=== PATIENT | female | born 1970 | race Caucasian/White ===

== ENCOUNTER 2018-11-20 14:41 | Emergency (ER) | payer BC, OTHER ==
--- OUTSIDE RECORDS SUMMARY | 2018-11-20 14:46 | XMS REPORT ---
:1970 [facility] Address [address] [place] [address] [address]. Holman [address] [place] [address] Care Team Providers Name Role Phone DR LESTER LANCASTER Unavailable Unavailable ELEANOR, DR OSBORNE Unavailable Unavailable WILLIAM, DR KRUEGER Unavailable Unavailable CHRIS, MS ANDREW Payne Unavailable Unavailable Problems This patient has no known problems. Allergies, Adverse Reactions, Alerts This patient has no known allergies or adverse reactions. Medications This patient has no known medications. Encounters Start End Encounter Admission Attending Care Care Encounter Date/Time Date/Time Type Type Clinicians Facility Department ID 2018-07-16 2018-07-19 Outpatient E TONNY, [facility] [id number] 15:24:00 14:47:00 LESTER 2018-06-30 2018-07-01 Outpatient E ELEANOR, [facility] [id number] 16:03:00 17:15:00 DYLON 2018-05-17 2018-05-17 Emergency E WILLIAM [facility] [id number] 13:38:00 15:27:00 PATI 2018-03-09 2018-03-09 [facility] [id number] 10:29:00 14:00:00 ANDREW Results Test Description Test Time Test Comments Text Results Atomic Results Result Comments COMPREHENSIVE METABOLIC ESPINOSA 2018-07-18 04:10:00 Test Item Value Reference Range Comments GLUCOSE (test code=06D) 92 mg/dL 75-100 SODIUM (test code=01A) 141 mmol/L 136-145 POTASSIUM (test code=01B) 3.6 mmol/L 3.6-5.1 CHLORIDE (test code=04A) 107 mmol/L 98-107 CO2 (test code=02A) 22 mmol/L 22-32 ANION GAP (test code=ANG) 15.6 mmol/L BUN (test code=05D) 19 mg/dL 7-18 CREATININE (test code=03E) 0.7 mg/dL 0.4-1.1 BUN/CREA (test code=BCR) 27 12-20 CALCIUM (test code=09D) 8.9 mg/dL 8.3-9.5 BILI TOTAL (test code=11A) 0.4 mg/dL 0.2-1.0 PROTEIN (test code=07D) 6.9 g/dL 6.4-8.2 ALBUMIN (test code=08D) 3.3 g/dL 3.5-4.8 GLOBULIN (test code=GLB) 3.6 g/dL 1.5-3.8 ALB/GLOB (test code=AGRR) 0.9 1.0-2.6 ALK PHOS (test code=35A) 68 IU/L 42-121 AST (test code=30A) 12 IU/L <=42 ALT (test code=31A) 15 IU/L <=78 CBC (INCLUDES AUTOMATED DIFFERENTIAL)2018-07-17 05:48:00 Test Item Value Reference Range Comments WBC (test code=WBC) 11.9 10\S\3/uL 4.5-11.0 RBC (test code=RBC) 3.95 10\S\6/uL 4.20-5.60 HGB (test code=HBG) 11.9 g/dL 12.0-15.5 HCT (test code=HCT) 37.2 % 35.0-44.0 MCV (test code=MCV) 94.2 fL 81.0-99.0 MCH (test code=MCH) 30.1 pg 27.0-31.0 MCHC (test code=MCHC) 32.0 g/dL 32.0-36.0 RDW (test code=RDW) 13.8 % 11.5-14.5 PLT (test code=PLT) 352 10\S\3/uL 130-400 MPV (test code=MPV) 9.7 fL 9.4-12.4 NEUTROP # (test code=NE#) 9.0 10\S\3/uL 1.6-8.0 LYMPH # (test code=LY#) 1.8 10\S\3/uL 1.1-3.5 MONOCYTE # (test code=MO#) 1.0 10\S\3/uL 0.0-1.1 EOSINOPH # (test code=EO#) 0.0 10\S\3/uL 0.0-0.7 BASOPHIL # (test code=BA#) 0.1 10\S\3/uL 0.0-0.3 IG # (test code=IG#) 0.07 10\S\3/uL 0.00-0.06 NRBC # (test code=NRBC#) 0.00 10\S\3/uL 0.00-0.01 NEUTROPH % (test code=NE%) 75.2 % 35.0-73.0 LYMPH % (test code=LY%) 14.9 % 20.0-55.0 MONO % (test code=MO%) 8.6 % 2.5-10.0 EOSINOPH % (test code=EO%) 0.3 % 0.0-5.0 BASOPHIL % (test code=BA%) 0.4 % 0.0-2.0 IG % (test code=IG%) 0.6 % 0.0-0.8 NRBC% (test code=NRBC%) 0.0 % 0.0-0.2 MANDIFF (test code=MDIFF) NO NO RBC MORPH (test code=RBCMOR) NORMAL BASIC METABOLIC [id number] 05:47:00 Test Item Value Reference Range Comments GLUCOSE (test code=06D) 97 mg/dL 75-100 SODIUM (test code=01A) 143 mmol/L 136-145 POTASSIUM (test code=01B) 3.5 mmol/L 3.6-5.1 CHLORIDE (test code=04A) 108 mmol/L 98-107 CO2 (test code=02A) 26 mmol/L 22-32 ANION GAP (test code=ANG) 12.5 mmol/L BUN (test code=05D) 16 mg/dL 7-18 CREATININE (test code=03E) 0.6 mg/dL 0.4-1.1 BUN/CREA (test code=BCR) 25 12-20 CALCIUM (test code=09D) 8.3 mg/dL 8.3-9.5 CARDIAC [id number] 02:45:00 Test Item Value Reference Range Comments TROPONIN I (test code=A84) 0.059 ng/mL 0.000-0.045 CARDIAC [id number] 18:36:00 Test Item Value Reference Range Comments TROPONIN I (test code=A84) 0.059 ng/mL 0.000-0.045 CT ABDOMEN AND PELVIS WITH [id number] 15:14:52EXAM: CT abdomen and pelvis with contrastLocation: R16 INDICATION: Diffuse painCOMPARISON: CT abdomen and pelvis on 06/30/18 and 02/10/18TECHNIQUE: Axial images of the abdomen and pelvis were obtained with 96 ccOmnipaque 300 IV contrast. Coronal and sagittal reformatted images wereperformed. Creatinine is 0.8.DISCUSSION: Lower thorax: Unremarkable.Hepatobiliary: 1 cm simple left hepatic dome cyst is noted. The liver isotherwise unremarkable. No biliary ductal dilatation.Gallbladder: Unremarkable.Spleen: Unremarkable.Pancreas: Unremarkable.Kidneys: 3 right-sided and 2 left-sided punctate bilateral renal calculi areidentified. No ureteral calculi, hydronephrosis, or solid renal mass is seen.Adrenals: Unremarkable.Lymph nodes: No lymphadenopathy.Peritoneum/ retroperitoneum: No intraabdominal freeair or free fluid.Vessels: Mild atherosclerosis, without abdominal aortic aneurysm.Pelvic organs/bladder: The uterus, adnexa, bladder are unremarkable.Bowel: The appendix is normal. Fluid is seen within several nondilated smallbowel loops. No bowel obstruction or abnormal bowel wall thickening is seen.Bones/soft tissues: No fracture or evidence of bony neoplastic process. Thereis a bone island at the anterior inferior iliac spine, unchanged from January2018.IMPRESSION:1. Findings suggest enteritis. No bowel obstruction or intra-abdominal freeair. The appendix is normal.2. Punctate bilateral nephrolithiasis, without hydronephrosis.One or more of the following dose reduction techniques were used: Automatedexposure control, adjustment of the mA and/or kV according to patient size,and/or utilization of iterative reconstruction technique.DLP: 1534 mGy-cm CTDI 28 [id number] 13:05:00 Test Item Value Reference Range Comments MAGNESIUM (test code=48A) 1.9 mg/dL 1.8-2.4 CT HEAD W/O [id number] 12:54:16EXAM: CT head without contrastLocation: [id number]: NoneINDICATION: HeadacheTECHNIQUE: Axial images of the brain were performed with 5 mm slices. Imageswere reviewed in brain and bone windows. Coronal and sagittal reformattedimages were performed.DISCUSSION:No intracranial mass, hemorrhage, hydrocephalus, midline shift, or herniationis seen. No abnormal attenuation is seen. No calvarial fracture or scalpcontusion is identified. Included portions of the orbits are unremarkable. The visualized paranasal sinuses are unremarkable.IMPRESSION:No acute intracranial abnormalities.One or more of the following dose reduction techniques were used: Automatedexposure control, adjustment of the mA and/or kV according to patient size,and/or utilization of iterative reconstruction technique.DLP: 854 mGy- cmCTDI 45 mGyDRUGS OF [id number] 12:54:00 Test Item Value Reference Range Comments DRUG SCRN (test code=HDOA) URINE DRUG SCREEN This is an unconfirmed screening result and should not be used for non-medical purposes CANNABINOD (test code=88C) POSITIVE NEGATIVE AMPHETAMINE (test code=84A) Negative NEGATIVE BENZODIAZP (test code=86A) POSITIVE NEGATIVE BARBITURAT (test code=85A) Negative NEGATIVE OPIATES (test code=92B) Negative NEGATIVE COCAINE (test code=87A) Negative NEGATIVE PHENCYCLID (test code=66A) Negative NEGATIVE METHADONE (test code=64A) Negative NEGATIVE DOAH (test code=DOAH.) URINE DRUG SCREEN Cut-off values are as follows: Cannabinoids 50 ng/mL Cocaine 300 ng/mL Amphetamines 1000 ng/mL Phencyclidine 25 ng/mL Benzodiazepines 200 ng.mL Methadone 300 ng/mL Barbiturates 200 ng/mL Opiates 2000 ng/mL URINALYSIS WITH [id number] 12:46:00 Test Item Value Reference Range Comments COLOR (test code=COLU) DK YELLOW YELLOW CLARITY (test code=CLA) CLOUDY CLEAR GLUCOSE UR (test code=UA GLUCOSE) NEGATIVE NEGATIVE BILI UR (test code=BILE) 1+ NEGATIVE KETONES UR (test code=AUGUSTINE) 1+ NEGATIVE SP GRAVITY (test code=SPGR) 1.027 1.005-1.030 PH UR (test code=PH) 6.0 4.5-8.0 PROTEIN UR (test code=PU) 2+ NEGATIVE UROBIL UR (test code=UROQ) 1.0 EU/dL 0.2-1.0 NITRITE UR (test code=NITRITE) NEGATIVE NEGATIVE BLOOD UR (test code=UA BLOOD) NEGATIVE NEGATIVE LEUK ES UR (test code=LEUK) 1+ NEGATIVE WBC UR (test code=UWBC) 3 /HPF 0-5 RBC UR (test code=URBC) 0 /HPF 0-2 EPITH UR (test code=UEPC) FEW /LPF FEW BACTERIA UR (test code=UBACT) FEW /HPF NONE CAST UR (test code=CAST) /LPF NONE CRYSTAL UR (test code=CRYU) / LPF NONE MUCUS UR (test code=MUC) MANY / HPF NONE AMORPH UR (test code=SHAHEEN) / HPF NONE TRICH UR (test code=UTRICH) /HPF NONE YEAST UR (test code=UY) /HPF NONE SPERM UR (test code=USPERM) /HPF NONE URINE [id number] 12:39:00 Test Item Value Reference Range Comments PREG UR (test code=PGU) NEGATIVE NEGATIVE COMPREHENSIVE METABOLIC [id number] 12:37:00 Test Item Value Reference Range Comments GLUCOSE (test code=06D) 107 mg/dL 75-100 SODIUM (test code=01A) 140 mmol/L 136-145 POTASSIUM (test code=01B) 2.8 mmol/L 3.6-5.1 CHLORIDE (test code=04A) 98 mmol/L 98-107 CO2 (test code=02A) 28 mmol/L 22-32 ANION GAP (test code=ANG) 16.8 mmol/L BUN (test code=05D) 19 mg/dL 7-18 CREATININE (test code=03E) 0.8 mg/dL 0.4-1.1 BUN/CREA (test code=BCR) 23 12-20 CALCIUM (test code=09D) 9.6 mg/dL 8.3-9.5 BILI TOTAL (test code=11A) 0.7 mg/dL 0.2-1.0 PROTEIN (test code=07D) 8.0 g/dL 6.4-8.2 ALBUMIN (test code=08D) 4.0 g/dL 3.5-4.8 GLOBULIN (test code=GLB) 4.0 g/dL 1.5-3.8 ALB/GLOB (test code=AGRR) 1.0 1.0-2.6 ALK PHOS (test code=35A) 91 IU/L 42-121 AST (test code=30A) 18 IU/L <=42 ALT (test code=31A) 17 IU/L <=78 AMYLASE AND [id number] 12:34:00 Test Item Value Reference Range Comments AMYLASE (test code=10A) 53 U/L 28-100 LIPASE (test code=60A) 45 IU/L 73-393 TROPONIN [id number] 12:33:00 Test Item Value Reference Range Comments TROPONIN I (test code=A84) 0.087 ng/mL 0.000-0.045 [id number] 12:26:00 Test Item Value Reference Range Comments D-DIMER (test code=DDI) <200 ng/mL D-DU 0-234 D-DIMER COMMENT (test *Level to rule out DVT or PE: code=DDCOM) <235 ng/mL D-DU* CBC (INCLUDES AUTOMATED DIFFERENTIAL)2018-07-16 12:17:00 Test Item Value Reference Range Comments WBC (test code=WBC) 13.8 10\S\3/uL 4.5-11.0 RBC (test code=RBC) 4.37 10\S\6/uL 4.20-5.60 HGB (test code=HBG) 13.4 g/dL 12.0-15.5 HCT (test code=HCT) 39.4 % 35.0-44.0 MCV (test code=MCV) 90.2 fL 81.0-99.0 MCH (test code=MCH) 30.7 pg 27.0-31.0 MCHC (test code=MCHC) 34.0 g/dL 32.0-36.0 RDW (test code=RDW) 13.3 % 11.5-14.5 PLT (test code=PLT) 421 10\S\3/uL 130-400 MPV (test code=MPV) 9.6 fL 9.4-12.4 NEUTROP # (test code=NE#) 11.5 10\S\3/uL 1.6-8.0 LYMPH # (test code=LY#) 1.4 10\S\3/uL 1.1-3.5 MONOCYTE # (test code=MO#) 0.8 10\S\3/uL 0.0-1.1 EOSINOPH # (test code=EO#) 0.1 10\S\3/uL 0.0-0.7 BASOPHIL # (test code=BA#) 0.0 10\S\3/uL 0.0-0.3 IG # (test code=IG#) 0.06 10\S\3/uL 0.00-0.06 NRBC # (test code=NRBC#) 0.00 10\S\3/uL 0.00-0.01 NEUTROPH % (test code=NE%) 83.4 % 35.0-73.0 LYMPH % (test code=LY%) 10.0 % 20.0-55.0 MONO % (test code=MO%) 5.5 % 2.5-10.0 EOSINOPH % (test code=EO%) 0.6 % 0.0-5.0 BASOPHIL % (test code=BA%) 0.1 % 0.0-2.0 IG % (test code=IG%) 0.4 % 0.0-0.8 NRBC% (test code=NRBC%) 0.0 % 0.0-0.2 MANDIFF (test code=MDIFF) NO NO RBC MORPH (test code=RBCMOR) NORMAL DIRECT STREP GROUP [id number] 07:45:00 Test Item Value Reference Range Comments Culture Observations (test NO BETA HEMOLYTIC code=COB1) STREPTOCOCCUS ISOLATED Direct Exam (test code=DE1) NO STREPTOCOCCUS GROUP A ANTIGEN DETECTED THYROID PANEL/SCREEN (TSH)2018-07-01 05:50:00 Test Item Value Reference Range Comments TSH (test code=A57) 0.453 uIU/mL 0.358-3.740 CARDIAC [id number] 05:16:00 Test Item Value Reference Range Comments TROPONIN I (test code=A84) <0.015 ng/mL 0.000-0.045 BASIC METABOLIC [id number] 04:55:00 Test Item Value Reference Range Comments GLUCOSE (test code=06D) 120 mg/dL 75-100 SODIUM (test code=01A) 141 mmol/L 136-145 POTASSIUM (test code=01B) 3.3 mmol/L 3.6-5.1 CHLORIDE (test code=04A) 107 mmol/L 98-107 CO2 (test code=02A) 25 mmol/L 22-32 ANION GAP (test code=ANG) 12.3 mmol/L BUN (test code=05D) 13 mg/dL 7-18 CREATININE (test code=03E) 0.8 mg/dL 0.4-1.1 BUN/CREA (test code=BCR) 17 12-20 CALCIUM (test code=09D) 8.8 mg/dL 8.3-9.5 CBC (INCLUDES AUTOMATED DIFFERENTIAL)2018-07-01 04:44:00 Test Item Value Reference Range Comments WBC (test code=WBC) 8.1 10\S\3/uL 4.5-11.0 RBC (test code=RBC) 4.10 10\S\6/uL 4.20-5.60 HGB (test code=HBG) 12.3 g/dL 12.0-15.5 HCT (test code=HCT) 37.2 % 35.0-44.0 MCV (test code=MCV) 90.7 fL 81.0-99.0 MCH (test code=MCH) 30.0 pg 27.0-31.0 MCHC (test code=MCHC) 33.1 g/dL 32.0-36.0 RDW (test code=RDW) 13.4 % 11.5-14.5 PLT (test code=PLT) 322 10\S\3/uL 130-400 MPV (test code=MPV) 9.8 fL 9.4-12.4 NEUTROP # (test code=NE#) 6.8 10\S\3/uL 1.6-8.0 LYMPH # (test code=LY#) 1.1 10\S\3/uL 1.1-3.5 MONOCYTE # (test code=MO#) 0.2 10\S\3/uL 0.0-1.1 EOSINOPH # (test code=EO#) 0.0 10\S\3/uL 0.0-0.7 BASOPHIL # (test code=BA#) 0.0 10\S\3/uL 0.0-0.3 IG # (test code=IG#) 0.06 10\S\3/uL 0.00-0.06 NRBC # (test code=NRBC#) 0.00 10\S\3/uL 0.00-0.01 NEUTROPH % (test code=NE%) 83.8 % 35.0-73.0 LYMPH % (test code=LY%) 13.1 % 20.0-55.0 MONO % (test code=MO%) 2.2 % 2.5-10.0 EOSINOPH % (test code=EO%) 0.1 % 0.0-5.0 BASOPHIL % (test code=BA%) 0.1 % 0.0-2.0 IG % (test code=IG%) 0.7 % 0.0-0.8 NRBC% (test code=NRBC%) 0.0 % 0.0-0.2 MANDIFF (test code=MDIFF) NO NO RBC MORPH (test code=RBCMOR) NORMAL CARDIAC [id number] 21:20:00 Test Item Value Reference Range Comments TROPONIN I (test code=A84) <0.015 ng/mL 0.000-0.045 URINE [id number] 17:31:00 Test Item Value Reference Range Comments PREG UR (test code=PGU) NEGATIVE NEGATIVE U/S [id number] 13:56:23EXAMINATION: U/S GALLBLADDER.LOCATION: D4.HISTORY: Right upper quadrant pain.COMPARISON: CT abdomen 06/30/2018.TECHNIQUE : Multiple grayscale, pulse Doppler and color Doppler images of theright upper quadrant of the abdomen were obtained.FINDINGS:The visualized liver is homogeneous in echogenicity. Previously described 1.2cm left hepatic lobe structure is not appreciated sonographically. The mainportal vein is patent. There is no intra or extrahepatic biliary ductaldilatation. The common duct measures 7 mm. The gallbladder demonstrates sludgewithout wall thickening. The visualized pancreatic head and body appearsunremarkable, evaluation of the tail is limited by overlying bowel gas.The right kidney measures 10.4 cm. There is no hydronephrosis.The visualized portions of abdominal aorta and IVC appearunremarkable.IMPRESSION:Gallbladder sludge with prominent CBD at 7 mm, correlate with LFTs. Please seeCT abdomen/pelvis report 06/30/[address] ABDOMEN AND PELVIS WITH [id number] 12:09:32EXAMINATION: CT ABDOMEN AND PELVIS WITH CONTRAST.LOCATION: D4.HISTORY: Diffuse abdominal pain.COMPARISON: CT abdomen/pelvis 03/09/2018 and 02/10/2018. US abdomen 2017.TECHNIQUE: CT imaging was performed of abdomen and pelvis after intravenousadministration of 100 cc of Omnipaque-300, excretory phase imaging was alsoperformed. Oral contrast material was not administered. One or more thefollowing dose reduction techniques were used: Automated exposure control, adjustment of mA and/or kV according topatient size, and use of iterativereconstruction technique.FINDINGS: Examination is limited due to lack of oral contrast.Visualized lung bases appear unremarkable.12 mm indeterminate low-attenuation structure in left hepatic lobe. Mildcentral intrahepatic biliary ductal dilatation in. Prominent CBD measuring 7mm.Gallbladder, spleen, pancreas, adrenals appear unremarkable. Bilateralnonobstructing nephrolithiasis. No hydronephrosis. Underdistended urinarybladder.The bowel loops appear normal in courseand caliber. No bowel obstruction.Unremarkable appendix.No abdominal or pelvic bulky lymphadenopathyis identified.No free fluid or pneumoperitoneum. Uterus appears unremarkable by CT technique.Atherosclerotic vascular calcifications.Visualized osseous structures demonstrate mild degenerative changes.15 mmsclerotic changes involving left acetabulum, nonspecific.IMPRESSION:Prominent CBD at 7 mm with mild central intrahepatic biliary ductal dilatation,correlate with LFTs and site of pain. Previous ultrasound demonstratedgallbladder sludge and small stones.Subtle diffuse colonic wall thickening, concerning for colitis, considernonemergent GI consultation and colonoscopy.Bilateral nephrolithiasis.Atherosclerotic vascular calcifications.Arterial Blood [id number] 12:05:00 Test Item Value Reference Range Comments pH (test code=PHRT) 7.498 7.350-7.450 pCO2 (test code=PCO2RT) 31.4 mmHg 35.0-45.0 pO2 (test code=PO2RT) 81.7 mmHg 80.0-110.0 HCO3? (test code=HCO3) 24.1 mmol/L 22.0-26.0 ARIADNA (test code=ARIADNA) 2.0 mmol/L -3.0-3.0 tHb (test code=THBRT) 13.7 g/dL 12.0-15.5 sO2 (test code=SO2RT) 96.1 % 92.0-100.0 FO2Hb (test code=PB8EYLQ) 94.4 % 94.0-100.0 FCOHb (test code=FCOHBRT) 0.6 % 0.0-3.0 FMetHb (test code=FMETHBRT) 1.1 % 0.2-0.6 ABGTEMP (test code=ABGTEMP) * Temp Corrected Values* ABGTEMP (test code=ABGTEMP.) 37.0 ?C pH (T) (test code=PHTEMP) 7.498 7.350-7.450 pCO2 (T) (test code=CUA5NGBD) 31.4 mmHg 35.0-45.0 pO2 (T) (test code=AA2QUYZ) 81.7 mmHg 80.0-110.0 Device (test code=DEVICE) ROOM AIR FI02 (test code=FI02) 21.0 % Liter_flow (test code=LF) VENPAR (test code=VENPAR) * Ventilator Parameters * SIMV (test code=SIMV) A/C (test code=A/C) CPAP (test code=CPAP) PEEP (test code=PEEP) PS (test code=PS) PIP (test code=PIP) I_Time (test code=ITIME) Vt (test code=VT) BIPAP INSP (test code=BIPAPINP) BIPAP EXP (test code=BIPAPEXP) Sandro test (test code=ATEST) Positive SAMPLE SITE (test code=SSITE) Right Radial Artery COMMENT (test code=CO) URINALYSIS WITH [id number] 11:20:00 Test Item Value Reference Range Comments COLOR (test code=COLU) YELLOW YELLOW CLARITY (test code=CLA) CLOUDY CLEAR GLUCOSE UR (test code=UA GLUCOSE) NEGATIVE NEGATIVE BILI UR (test code=BILE) NEGATIVE NEGATIVE KETONES UR (test code=AUGUSTINE) 2+ NEGATIVE SP GRAVITY (test code=SPGR) 1.019 1.005-1.030 PH UR (test code=PH) 7.5 4.5-8.0 PROTEIN UR (test code=PU) 1+ NEGATIVE UROBIL UR (test code=UROQ) 2.0 EU/dL 0.2-1.0 NITRITE UR (test code=NITRITE) NEGATIVE NEGATIVE BLOOD UR (test code=UA BLOOD) NEGATIVE NEGATIVE LEUK ES UR (test code=LEUK) NEGATIVE NEGATIVE WBC UR (test code=UWBC) 1 /HPF 0-5 RBC UR (test code=URBC) 0 /HPF 0-2 EPITH UR (test code=UEPC) FEW /LPF FEW BACTERIA UR (test code=UBACT) MANY /HPF NONE CAST UR (test code=CAST) /LPF NONE CRYSTAL UR (test code=CRYU) / LPF NONE MUCUS UR (test code=MUC) / HPF NONE AMORPH UR (test code=SHAHEEN) / HPF NONE TRICH UR (test code=UTRICH) /HPF NONE YEAST UR (test code=UY) /HPF NONE SPERM UR (test code=USPERM) /HPF NONE BRAIN NATRIURETIC [id number] 10:57:00 Test Item Value Reference Range Comments proBNP (test code=PBNP) 436 pg/mL 0-125 COMPREHENSIVE METABOLIC [id number] 10:56:00 Test Item Value Reference Range Comments GLUCOSE (test code=06D) 103 mg/dL 75-100 SODIUM (test code=01A) 144 mmol/L 136-145 POTASSIUM (test code=01B) 2.9 mmol/L 3.6-5.1 CHLORIDE (test code=04A) 109 mmol/L 98-107 CO2 (test code=02A) 25 mmol/L 22-32 ANION GAP (test code=ANG) 12.9 mmol/L BUN (test code=05D) 10 mg/dL 7-18 CREATININE (test code=03E) 0.6 mg/dL 0.4-1.1 BUN/CREA (test code=BCR) 16 12-20 CALCIUM (test code=09D) 8.8 mg/dL 8.3-9.5 BILI TOTAL (test code=11A) 0.4 mg/dL 0.2-1.0 PROTEIN (test code=07D) 7.0 g/dL 6.4-8.2 ALBUMIN (test code=08D) 3.3 g/dL 3.5-4.8 GLOBULIN (test code=GLB) 3.7 g/dL 1.5-3.8 ALB/GLOB (test code=AGRR) 0.9 1.0-2.6 ALK PHOS (test code=35A) 76 IU/L 42-121 AST (test code=30A) 22 IU/L <=42 ALT (test code=31A) 19 IU/L <=78 [id number] 10:51:00 Test Item Value Reference Range Comments CPK (test code=32A) 129 IU/L 26-192 AMYLASE AND [id number] 10:51:00 Test Item Value Reference Range Comments AMYLASE (test code=10A) 23 U/L 28-100 LIPASE (test code=60A) 51 IU/L 73-393 TROPONIN [id number] 10:50:00 Test Item Value Reference Range Comments TROPONIN I (test code=A84) <0.015 ng/mL 0.000-0.045 PRO TIME AND [id number] 10:47:00 Test Item Value Reference Range Comments PT (test code=TT) 12.4 s 9.8-13.6 INR (test code=INR) 1.1 INRH (test code=INRH) SUGGESTED THERAPEUTIC RANGE FOR INR: 2.5 - 3.5 For Patients with Prosthetic Valves or Patients with recurrent Thromboembolic Events 2.0 - 3.0 For Most Other Applications PTT (test code=PTT) 28.4 s 20.2-38.0 PTTH (test code=PTTH) To monitor the effectiveness of heparin, we offer the Anti-Xa (Heparin Assay). It can be used for either unfractionated or LMW Heparin. Order Code is ANTI-XA [id number] 10:47:00 Test Item Value Reference Range Comments D-DIMER (test code=DDI) 209 ng/mL D-DU 0-234 D-DIMER COMMENT (test *Level to rule out DVT or PE: code=DDCOM) <235 ng/mL D-DU* DIRECT INFLUENZA A AND B [id number] 10:45:00 Test Item Value Reference Range Comments Direct Exam (test code=DE1) PRESUMPTIVE NEGATIVE FOR THE PRESENCE OF INFLUENZA ANTIGEN XR CHEST 2 [id number] 10:41:59Exam: Chest x-ray 2 viewsHISTORY: Persistent coughLocation: [id number]:The heart size is normal and lung holcomb are clear. Osseous structures areintact.IMPRESSION:1. Normal chest. No change since CBC (INCLUDES AUTOMATED DIFFERENTIAL)2018-06-30 10:40:00 Test Item Value Reference Range Comments WBC (test code=WBC) 7.3 10\S\3/uL 4.5-11.0 RBC (test code=RBC) 3.81 10\S\6/uL 4.20-5.60 HGB (test code=HBG) 11.7 g/dL 12.0-15.5 HCT (test code=HCT) 33.5 % 35.0-44.0 MCV (test code=MCV) 87.9 fL 81.0-99.0 MCH (test code=MCH) 30.7 pg 27.0-31.0 MCHC (test code=MCHC) 34.9 g/dL 32.0-36.0 RDW (test code=RDW) 13.1 % 11.5-14.5 PLT (test code=PLT) 304 10\S\3/uL 130-400 MPV (test code=MPV) 9.8 fL 9.4-12.4 NEUTROP # (test code=NE#) 5.5 10\S\3/uL 1.6-8.0 LYMPH # (test code=LY#) 1.2 10\S\3/uL 1.1-3.5 MONOCYTE # (test code=MO#) 0.4 10\S\3/uL 0.0-1.1 EOSINOPH # (test code=EO#) 0.1 10\S\3/uL 0.0-0.7 BASOPHIL # (test code=BA#) 0.0 10\S\3/uL 0.0-0.3 IG # (test code=IG#) 0.02 10\S\3/uL 0.00-0.06 NRBC # (test code=NRBC#) 0.00 10\S\3/uL 0.00-0.01 NEUTROPH % (test code=NE%) 75.9 % 35.0-73.0 LYMPH % (test code=LY%) 16.0 % 20.0-55.0 MONO % (test code=MO%) 5.9 % 2.5-10.0 EOSINOPH % (test code=EO%) 1.4 % 0.0-5.0 BASOPHIL % (test code=BA%) 0.5 % 0.0-2.0 IG % (test code=IG%) 0.3 % 0.0-0.8 NRBC% (test code=NRBC%) 0.0 % 0.0-0.2 MANDIFF (test code=MDIFF) NO NO RBC MORPH (test code=RBCMOR) NORMAL [id number] 14:47:00 Test Item Value Reference Range Comments COLOR (test code=COLU) YELLOW YELLOW CLARITY (test code=CLA) CLEAR CLEAR GLUCOSE UR (test code=UA GLUCOSE) NEGATIVE NEGATIVE BILI UR (test code=BILE) NEGATIVE NEGATIVE KETONES UR (test code=AUGUSTINE) NEGATIVE NEGATIVE SP GRAVITY (test code=SPGR) 1.010 1.005-1.030 PH UR (test code=PH) 6.0 4.5-8.0 PROTEIN UR (test code=PU) NEGATIVE NEGATIVE UROBIL UR (test code=UROQ) 0.2 EU/dL 0.2-1.0 NITRITE UR (test code=NITRITE) NEGATIVE NEGATIVE BLOOD UR (test code=UA BLOOD) NEGATIVE NEGATIVE LEUK ES UR (test code=LEUK) NEGATIVE NEGATIVE XR FOOT RIGHT COMPLETE 3 [id number] 14:27:27Right foot, 3 viewsLocation Code: [id number] HISTORY: [id number]: PainCOMMENTS: AP, lateral, and oblique views of the right foot demonstrate noacute fracture or malalignment. Dorsal soft tissue swelling noted.IMPRESSION: No acute osseous radiographic abnormality. Dorsal soft tissueswelling.CT ABDOMEN AND PELVIS WITH [id number] 13:38:45CT abdomen and pelvis with contrastLocation Code: [id number] HISTORY: Abdominal painCOMPARISON: 02/10/2018Technique: Helical CT of the abdomen and pelvis was performed following theadministration ofintravenous contrast. Thin section axial, sagittal andcoronal images were obtained. Automatic exposure control was utilized. TotalDLP: 1656 mGycmFINDINGS:Mild atelectasis is present within the dependent lung bases.There are several punctate, 1 and 2 mm renal calculi bilaterally. There is noureteral calculus or hydronephrosis. The liver, gallbladder, adrenal glands,kidneys, pancreas, and spleen are unremarkable.There is mild thickening and inflammation of the proximal descending colon.There are no regional diverticuli. There is mild adjacent mesentericinflammation without fluid collection or free air. The unopacified loops ofbowel proximally demonstrate no additional thickening or dilatation. Theappendix is not identified. There is no free peritoneal air or fluid. Note ismade of a small sliding hiatal hernia.The abdominal aorta is normal in caliber and contour. There is noretroperitoneal mass orfluid collection. The urinary bladder is unremarkable.There is no pelvic mass or fluid collection. Mild degenerative changes are present throughout the spine. The skin, andsurrounding soft tissues areunremarkable.IMPRESSION:Mild thickening and inflammation of the proximal descending colon consistentwith colitis. There is no adjacent fluid collection or free air.CT HEAD W/O [id number] 13:19:29CT brain without contrast.Location code: [id number] HISTORY: R51: HEADACHE COMPARISON: None.TECHNIQUE: Routine unenhanced axial imaging of the brain was performed. Coronal and sagittal reformatted images were obtained, as well. Automaticexposure control was utilized. Total DLP: 835 mGycmFINDINGS:There is no acute intracranial hemorrhage or extra-axial collection.There is no hydrocephalus, midline shift, or space occupying mass. Johnson-whitematter differentiation is well preserved with no definite CT evidence of anacute infarct. The cranial vault and skull base are intact. The paranasal sinuses and mastoidair cells are pneumatized and well aerated. IMPRESSION: No acute intracranial abnormality.AMYLASE AND [id number] 13:05 :00 Test Item Value Reference Range Comments AMYLASE (test code=10A) 36 U/L 28-100 LIPASE (test code=60A) 67 IU/L 73-393 COMPREHENSIVE METABOLIC [id number] 13:05:00 Test Item Value Reference Range Comments GLUCOSE (test code=06D) 81 mg/dL 75-100 SODIUM (test code=01A) 142 mmol/L 136-145 POTASSIUM (test code=01B) 4.0 mmol/L 3.6-5.1 CHLORIDE (test code=04A) 111 mmol/L 98-107 CO2 (test code=02A) 25 mmol/L 22-32 ANION GAP (test code=ANG) 10.0 mmol/L BUN (test code=05D) 9 mg/dL 7-18 CREATININE (test code=03E) 0.7 mg/dL 0.4-1.1 BUN/CREA (test code=BCR) 13 12-20 CALCIUM (test code=09D) 8.6 mg/dL 8.3-9.5 BILI TOTAL (test code=11A) 0.3 mg/dL 0.2-1.0 PROTEIN (test code=07D) 6.6 g/dL 6.4-8.2 ALBUMIN (test code=08D) 3.0 g/dL 3.5-4.8 GLOBULIN (test code=GLB) 3.6 g/dL 1.5-3.8 ALB/GLOB (test code=AGRR) 0.8 1.0-2.6 ALK PHOS (test code=35A) 83 IU/L 42-121 AST (test code=30A) 12 IU/L <=42 ALT (test code=31A) 14 IU/L <=78 [id number] 13:05:00 Test Item Value Reference Range Comments MAGNESIUM (test code=48A) 2.1 mg/dL 1.8-2.4 SERUM [id number] 12:53:00 Test Item Value Reference Range Comments PREG SRM (test code=PGS) NEGATIVE NEGATIVE URINALYSIS WITH [id number] 12:45:00 Test Item Value Reference Range Comments COLOR (test code=COLU) YELLOW YELLOW CLARITY (test code=CLA) CLOUDY CLEAR GLUCOSE UR (test code=UA GLUCOSE) NEGATIVE NEGATIVE BILI UR (test code=BILE) NEGATIVE NEGATIVE KETONES UR (test code=AUGUSTINE) NEGATIVE NEGATIVE SP GRAVITY (test code=SPGR) 1.007 1.005-1.030 PH UR (test code=PH) 6.5 4.5-8.0 PROTEIN UR (test code=PU) NEGATIVE NEGATIVE UROBIL UR (test code=UROQ) 0.2 EU/dL 0.2-1.0 NITRITE UR (test code=NITRITE) NEGATIVE NEGATIVE BLOOD UR (test code=UA BLOOD) NEGATIVE NEGATIVE LEUK ES UR (test code=LEUK) TRACE NEGATIVE WBC UR (test code=UWBC) 3 /HPF 0-5 RBC UR (test code=URBC) 0 /HPF 0-2 EPITH UR (test code=UEPC) FEW /LPF FEW BACTERIA UR (test code=UBACT) FEW /HPF NONE CAST UR (test code=CAST) /LPF NONE CRYSTAL UR (test code=CRYU) / LPF NONE MUCUS UR (test code=MUC) / HPF NONE AMORPH UR (test code=SHAHEEN) / HPF NONE TRICH UR (test code=UTRICH) /HPF NONE YEAST UR (test code=UY) /HPF NONE SPERM UR (test code=USPERM) /HPF NONE PRO TIME AND [id number] 12:43:00 Test Item Value Reference Range Comments PT (test code=TT) 11.9 s 9.8-13.6 INR (test code=INR) 1.0 INRH (test code=INRH) SUGGESTED THERAPEUTIC RANGE FOR INR: 2.5 - 3.5 For Patients with Prosthetic Valves or Patients with recurrent Thromboembolic Events 2.0 - 3.0 For Most Other Applications PTT (test code=PTT) 28.0 s 20.2-38.0 PTTH (test code=PTTH) To monitor the effectiveness of heparin, we offer the Anti-Xa (Heparin Assay). It can be used for either unfractionated or LMW Heparin. Order Code is ANTI-XA CBC (INCLUDES AUTOMATED DIFFERENTIAL)2018-03-09 12:40:00 Test Item Value Reference Range Comments WBC (test code=WBC) 8.8 10\S\3/uL 4.5-11.0 RBC (test code=RBC) 3.09 10\S\6/uL 4.20-5.60 HGB (test code=HBG) 9.5 g/dL 12.0-15.5 HCT (test code=HCT) 30.0 % 35.0-44.0 MCV (test code=MCV) 97.1 fL 81.0-99.0 MCH (test code=MCH) 30.7 pg 27.0-31.0 MCHC (test code=MCHC) 31.7 g/dL 32.0-36.0 RDW (test code=RDW) 14.9 % 11.5-14.5 PLT (test code=PLT) 283 10\S\3/uL 130-400 MPV (test code=MPV) 8.8 fL 9.4-12.4 NEUTROP # (test code=NE#) 5.3 10\S\3/uL 1.6-8.0 LYMPH # (test code=LY#) 2.4 10\S\3/uL 1.1-3.5 MONOCYTE # (test code=MO#) 0.7 10\S\3/uL 0.0-1.1 EOSINOPH # (test code=EO#) 0.3 10\S\3/uL 0.0-0.7 BASOPHIL # (test code=BA#) 0.0 10\S\3/uL 0.0-0.3 IG # (test code=IG#) 0.02 10\S\3/uL 0.00-0.06 NRBC # (test code=NRBC#) 0.00 10\S\3/uL 0.00-0.01 NEUTROPH % (test code=NE%) 59.8 % 35.0-73.0 LYMPH % (test code=LY%) 27.4 % 20.0-55.0 MONO % (test code=MO%) 8.2 % 2.5-10.0 EOSINOPH % (test code=EO%) 3.9 % 0.0-5.0 BASOPHIL % (test code=BA%) 0.5 % 0.0-2.0 IG % (test code=IG%) 0.2 % 0.0-0.8 NRBC% (test code=NRBC%) 0.0 % 0.0-0.2 MANDIFF (test code=MDIFF) NO NO RBC MORPH (test code=RBCMOR) NORMAL BLOOD [id number] 07:45:00 Test Item Value Reference Range Comments Culture Observations (test code=COB1) NO GROWTH AFTER 5 DAYS URINE [id number] 07:24:00 Test Item Value Reference Range Comments Isolate 1 (test code=ISO1) Rhodotorula glutinis/mucilaginosa CBC (INCLUDES AUTOMATED DIFFERENTIAL)2018-02-15 06:29:00 Test Item Value Reference Range Comments WBC (test code=WBC) 10.5 10\S\3/uL 4.5-11.0 RBC (test code=RBC) 2.76 10\S\6/uL 4.20-5.60 HGB (test code=HBG) 8.6 g/dL 12.0-15.5 HCT (test code=HCT) 26.4 % 35.0-44.0 MCV (test code=MCV) 95.7 fL 81.0-99.0 MCH (test code=MCH) 31.2 pg 27.0-31.0 MCHC (test code=MCHC) 32.6 g/dL 32.0-36.0 RDW (test code=RDW) 14.2 % 11.5-14.5 PLT (test code=PLT) 378 10\S\3/uL 130-400 MPV (test code=MPV) 10.0 fL 9.4-12.4 NEUTROP # (test code=NE#) 6.9 10\S\3/uL 1.6-8.0 LYMPH # (test code=LY#) 2.4 10\S\3/uL 1.1-3.5 MONOCYTE # (test code=MO#) 0.8 10\S\3/uL 0.0-1.1 EOSINOPH # (test code=EO#) 0.2 10\S\3/uL 0.0-0.7 BASOPHIL # (test code=BA#) 0.1 10\S\3/uL 0.0-0.3 IG # (test code=IG#) 0.16 10\S\3/uL 0.00-0.06 NRBC # (test code=NRBC#) 0.00 10\S\3/uL 0.00-0.01 NEUTROPH % (test code=NE%) 65.8 % 35.0-73.0 LYMPH % (test code=LY%) 22.9 % 20.0-55.0 MONO % (test code=MO%) 7.5 % 2.5-10.0 EOSINOPH % (test code=EO%) 1.8 % 0.0-5.0 BASOPHIL % (test code=BA%) 0.5 % 0.0-2.0 IG % (test code=IG%) 1.5 % 0.0-0.8 NRBC% (test code=NRBC%) 0.0 % 0.0-0.2 MANDIFF (test code=MDIFF) NO NO RBC MORPH (test code=RBCMOR) NORMAL [id number] 06:25:00 Test Item Value Reference Range Comments MAGNESIUM (test code=48A) 1.5 mg/dL 1.8-2.4 BASIC METABOLIC [id number] 06:16:00 Test Item Value Reference Range Comments GLUCOSE (test code=06D) 98 mg/dL 75-100 SODIUM (test code=01A) 145 mmol/L 136-145 POTASSIUM (test code=01B) 3.2 mmol/L 3.6-5.1 CHLORIDE (test code=04A) 115 mmol/L 98-107 CO2 (test code=02A) 21 mmol/L 22-32 ANION GAP (test code=ANG) 12.2 mmol/L BUN (test code=05D) 3 mg/dL 7-18 CREATININE (test code=03E) 0.5 mg/dL 0.4-1.1 BUN/CREA (test code=BCR) 7 12-20 CALCIUM (test code=09D) 7.6 mg/dL 8.3-9.5 NM HIDA SCAN W/ EJECTION [id number] 18:10:25HIDA scanLocation code: D6Rhqqnmzl history: Right upper quadrant painComments: Following the intravenous administration of 6.0 mCi of technetium 99mCholetec, sequential imaging of the abdomen was performed. There is promptclearance and uptake by the liver with prompt excretion into the biliarysystem. There is visualization of the common bile duct and gallbladder at 5minutes and eventually opacification of the small bowel at 15 minutes.Impression:1. No evidence of acute cholecystitis.BASIC METABOLIC [id number] 04:35:00 Test Item Value Reference Range Comments GLUCOSE (test code=06D) 107 mg/dL 75-100 SODIUM (test code=01A) 144 mmol/L 136-145 POTASSIUM (test code=01B) 3.3 mmol/L 3.6-5.1 CHLORIDE (test code=04A) 115 mmol/L 98-107 CO2 (test code=02A) 20 mmol/L 22-32 ANION GAP (test code=ANG) 12.3 mmol/L BUN (test code=05D) 4 mg/dL 7-18 CREATININE (test code=03E) 0.6 mg/dL 0.4-1.1 BUN/CREA (test code=BCR) 7 12-20 CALCIUM (test code=09D) 7.9 mg/dL 8.3-9.5 CBC (INCLUDES AUTOMATED DIFFERENTIAL)2018-02-14 04:25:00 Test Item Value Reference Range Comments WBC (test code=WBC) 14.0 10\S\3/uL 4.5-11.0 RBC (test code=RBC) 3.22 10\S\6/uL 4.20-5.60 HGB (test code=HBG) 9.7 g/dL 12.0-15.5 HCT (test code=HCT) 30.8 % 35.0-44.0 MCV (test code=MCV) 95.7 fL 81.0-99.0 MCH (test code=MCH) 30.1 pg 27.0-31.0 MCHC (test code=MCHC) 31.5 g/dL 32.0-36.0 RDW (test code=RDW) 14.2 % 11.5-14.5 PLT (test code=PLT) 436 10\S\3/uL 130-400 MPV (test code=MPV) 9.8 fL 9.4-12.4 NEUTROP # (test code=NE#) 10.1 10\S\3/uL 1.6-8.0 LYMPH # (test code=LY#) 2.5 10\S\3/uL 1.1-3.5 MONOCYTE # (test code=MO#) 1.0 10\S\3/uL 0.0-1.1 EOSINOPH # (test code=EO#) 0.1 10\S\3/uL 0.0-0.7 BASOPHIL # (test code=BA#) 0.0 10\S\3/uL 0.0-0.3 IG # (test code=IG#) 0.29 10\S\3/uL 0.00-0.06 NRBC # (test code=NRBC#) 0.00 10\S\3/uL 0.00-0.01 NEUTROPH % (test code=NE%) 72.2 % 35.0-73.0 LYMPH % (test code=LY%) 17.7 % 20.0-55.0 MONO % (test code=MO%) 7.1 % 2.5-10.0 EOSINOPH % (test code=EO%) 0.6 % 0.0-5.0 BASOPHIL % (test code=BA%) 0.3 % 0.0-2.0 IG % (test code=IG%) 2.1 % 0.0-0.8 NRBC% (test code=NRBC%) 0.0 % 0.0-0.2 MANDIFF (test code=MDIFF) NO NO RBC MORPH (test code=RBCMOR) NORMAL LACTIC [id number] 17:33:00 Test Item Value Reference Range Comments LACTIC ACD (test code=LA) 1.8 mmol/L 0.4-2.0 U/S [id number] 15:35:17LOCATION: [id number]: 47-year-old female with nausea and vomiting.COMMENT:Sonographic imaging of this patient's abdomen was performed.The liver echotexture is unremarkable. No cyst or masses are present. Liverspan is 14.1 cm.Doppler interrogation of the main portal vein exhibits hepatopedal blood flow.The gallbladder exhibits a small collection of sludge in the calcified stones.The gallbladder wall is 4 mm thick does not appear edematous.The common bile duct diameter is 5 mm.The pancreas is not wellseen.The kidneys are unremarkable. The right kidney measures 11.5 x 5.0 x 6.1 cmwith a 18 mm cortical thickness. The left kidney measures 11.4 x 5.7 x 5.5 cmwith a 21 mm cortical thickness.The spleen is unremarkable measuring 10.2 x 5.2 x 5.9 cm.The aorta and IVC are unremarkable. There is no evidenceof ascites or pleuralfluid.IMPRESSION:A thin collection of sludge with small calcified stones are seen in thegallbladder lumen. The wall is mildly prominent at 4 mm but does not appearedematous. A nuclear medicine HIDA scan might be of benefit to evaluate thegallbladder greater detail.Otherwise the sonographic appearance of the abdomen is unremarkable.BASIC METABOLIC [id number] 07:27: 00 Test Item Value Reference Range Comments GLUCOSE (test code=06D) 98 mg/dL 75-100 SODIUM (test code=01A) 145 mmol/L 136-145 POTASSIUM (test code=01B) 3.2 mmol/L 3.6-5.1 CHLORIDE (test code=04A) 116 mmol/L 98-107 CO2 (test code=02A) 18 mmol/L 22-32 ANION GAP (test code=ANG) 14.2 mmol/L BUN (test code=05D) 8 mg/dL 7-18 CREATININE (test code=03E) 0.6 mg/dL 0.4-1.1 BUN/CREA (test code=BCR) 14 12-20 CALCIUM (test code=09D) 7.9 mg/dL 8.3-9.5 CBC (INCLUDES AUTOMATED DIFFERENTIAL)2018-02-13 06:22:00 Test Item Value Reference Range Comments WBC (test code=WBC) 15.0 10\S\3/uL 4.5-11.0 RBC (test code=RBC) 2.91 10\S\6/uL 4.20-5.60 HGB (test code=HBG) 8.8 g/dL 12.0-15.5 HCT (test code=HCT) 27.3 % 35.0-44.0 MCV (test code=MCV) 93.8 fL 81.0-99.0 MCH (test code=MCH) 30.2 pg 27.0-31.0 MCHC (test code=MCHC) 32.2 g/dL 32.0-36.0 RDW (test code=RDW) 14.1 % 11.5-14.5 PLT (test code=PLT) 380 10\S\3/uL 130-400 MPV (test code=MPV) 9.9 fL 9.4-12.4 NEUTROP # (test code=NE#) 10.4 10\S\3/uL 1.6-8.0 LYMPH # (test code=LY#) 3.0 10\S\3/uL 1.1-3.5 MONOCYTE # (test code=MO#) 1.2 10\S\3/uL 0.0-1.1 EOSINOPH # (test code=EO#) 0.1 10\S\3/uL 0.0-0.7 BASOPHIL # (test code=BA#) 0.0 10\S\3/uL 0.0-0.3 IG # (test code=IG#) 0.31 10\S\3/uL 0.00-0.06 NRBC # (test code=NRBC#) 0.00 10\S\3/uL 0.00-0.01 NEUTROPH % (test code=NE%) 69.2 % 35.0-73.0 LYMPH % (test code=LY%) 19.9 % 20.0-55.0 MONO % (test code=MO%) 8.1 % 2.5-10.0 EOSINOPH % (test code=EO%) 0.5 % 0.0-5.0 BASOPHIL % (test code=BA%) 0.2 % 0.0-2.0 IG % (test code=IG%) 2.1 % 0.0-0.8 NRBC% (test code=NRBC%) 0.0 % 0.0-0.2 MANDIFF (test code=MDIFF) NO NO RBC MORPH (test code=RBCMOR) NORMAL URINALYSIS WITH [id number] 23:20:00 Test Item Value Reference Range Comments COLOR (test code=COLU) YELLOW YELLOW CLARITY (test code=CLA) HAZY CLEAR GLUCOSE UR (test code=UA GLUCOSE) NEGATIVE NEGATIVE BILI UR (test code=BILE) NEGATIVE NEGATIVE KETONES UR (test code=AUGUSTINE) TRACE NEGATIVE SP GRAVITY (test code=SPGR) 1.019 1.005-1.030 PH UR (test code=PH) 6.0 4.5-8.0 PROTEIN UR (test code=PU) 1+ NEGATIVE UROBIL UR (test code=UROQ) 0.2 EU/dL 0.2-1.0 NITRITE UR (test code=NITRITE) NEGATIVE NEGATIVE BLOOD UR (test code=UA BLOOD) NEGATIVE NEGATIVE LEUK ES UR (test code=LEUK) 1+ NEGATIVE WBC UR (test code=UWBC) 8 /HPF 0-5 RBC UR (test code=URBC) 2 /HPF 0-2 EPITH UR (test code=UEPC) MODERATE /LPF FEW BACTERIA UR (test code=UBACT) MODERATE /HPF NONE CAST UR (test code=CAST) /LPF NONE CRYSTAL UR (test code=CRYU) / LPF NONE MUCUS UR (test code=MUC) FEW / HPF NONE AMORPH UR (test code=SHAHEEN) / HPF NONE TRICH UR (test code=UTRICH) /HPF NONE YEAST UR (test code=UY) FEW /HPF NONE SPERM UR (test code=USPERM) /HPF NONE XR CHEST 1 VIEW [id number] 16:08:04HISTORY: DyspneaLocation code: N0Suigyoizfg 10 February 2018FINDINGS: Frontal view of the chest demonstrates normal cardiomediastinalsilhouette. The trachea is midline. Minimal bibasilar atelectasis. Thelungsare otherwise clear. There is no effusion or pneumothorax. The bones areintact.IMPRESSION: Minimal bibasilar atelectasis.CLOSTRIDIUM DIFFICILE [id number] 11:11:00 Test Item Value Reference Range Comments Direct Exam (test code=DE1) NO CLOSTRIDIUM DIFFICILE TOXIN A/B DETECTED CBC WITH MANUAL [id number] 07:39:00 Test Item Value Reference Range Comments WBC (test code=WBC) 25.4 10\S\3/uL 4.5-11.0 RBC (test code=RBC) 3.39 10\S\6/uL 4.20-5.60 HGB (test code=HBG) 10.3 g/dL 12.0-15.5 HCT (test code=HCT) 31.3 % 35.0-44.0 MCV (test code=MCV) 92.3 fL 81.0-99.0 MCH (test code=MCH) 30.4 pg 27.0-31.0 MCHC (test code=MCHC) 32.9 g/dL 32.0-36.0 RDW (test code=RDW) 14.2 % 11.5-14.5 PLT (test code=PLT) 479 10\S\3/uL 130-400 MPV (test code=MPV) 9.8 fL 9.4-12.4 NEUTROP # (test 20.8 10\S\3/uL 1.6-8.0 code=NE#) LYMPH # (test 2.2 10\S\3/uL 1.1-3.5 code=LY#) MONOCYTE # (test 1.2 10\S\3/uL 0.0-1.1 code=MO#) EOSINOPH # (test 0.0 10\S\3/uL 0.0-0.7 code=EO#) BASOPHIL # (test 0.1 10\S\3/uL 0.0-0.3 code=BA#) IG # (test code=IG#) 1.13 10\S\3/uL 0.00-0.06 NRBC # (test 0.00 10\S\3/uL 0.00-0.01 code=NRBC#) NEUTROPH % (test 82.0 % 35.0-73.0 code=NE%) LYMPH % (test 8.6 % 20.0-55.0 code=LY%) MONO % (test 4.6 % 2.5-10.0 code=MO%) EOSINOPH % (test 0.0 % 0.0-5.0 code=EO%) BASOPHIL % (test 0.3 % 0.0-2.0 code=BA%) IG % (test code=IG%) 4.5 % 0.0-0.8 NRBC% (test 0.0 % 0.0-0.2 code=NRBC%) MAN DIFF (test MANUAL code=HMDIFF) DIFFERENTIAL SEG (test code=SEG) 82 % 42-75 1+ Hypersegmented Neutrophils BAND (test code=BAND) 2 % 0-8 LYMPH (test 8 % 20-51 code=LYMPH) MONO (test code=MONO) 4 % 3-11 EOS (test code=EOS) 0 % 0-10 BASO (test code=BASO) 0 % 0-2 META (test code=META) 4 % <=1 RBC MORPH (test NORMAL NORMAL code=RBCMORN) PLT EST (test ADEQUATE ADEQUATE code=PLTEST) PLT MORPH (test NORMAL (1.5-3 um) NORMAL Few large plts code=PLTMOR) BASIC METABOLIC [id number] 06:01:00 Test Item Value Reference Range Comments GLUCOSE (test code=06D) 104 mg/dL 75-100 SODIUM (test code=01A) 144 mmol/L 136-145 POTASSIUM (test code=01B) 3.2 mmol/L 3.6-5.1 CHLORIDE (test code=04A) 114 mmol/L 98-107 CO2 (test code=02A) 17 mmol/L 22-32 ANION GAP (test code=ANG) 16.2 mmol/L BUN (test code=05D) 11 mg/dL 7-18 CREATININE (test code=03E) 0.8 mg/dL 0.4-1.1 BUN/CREA (test code=BCR) 14 12-20 CALCIUM (test code=09D) 8.8 mg/dL 8.3-9.5 CBC WITH MANUAL [id number] 07:18:00 Test Item Value Reference Range Comments WBC (test code=WBC) 19.5 10\S\3/uL 4.5-11.0 RBC (test code=RBC) 3.19 10\S\6/uL 4.20-5.60 HGB (test code=HBG) 9.9 g/dL 12.0-15.5 HCT (test code=HCT) 29.5 % 35.0-44.0 MCV (test code=MCV) 92.5 fL 81.0-99.0 MCH (test code=MCH) 31.0 pg 27.0-31.0 MCHC (test code=MCHC) 33.6 g/dL 32.0-36.0 RDW (test code=RDW) 13.8 % 11.5-14.5 PLT (test code=PLT) 435 10\S\3/uL 130-400 MPV (test code=MPV) 9.7 fL 9.4-12.4 NEUTROP # (test code=NE#) 15.1 10\S\3/uL 1.6-8.0 LYMPH # (test code=LY#) 1.8 10\S\3/uL 1.1-3.5 MONOCYTE # (test code=MO#) 1.0 10\S\3/uL 0.0-1.1 EOSINOPH # (test code=EO#) 0.0 10\S\3/uL 0.0-0.7 BASOPHIL # (test code=BA#) 0.1 10\S\3/uL 0.0-0.3 IG # (test code=IG#) 1.50 10\S\3/uL 0.00-0.06 NRBC # (test code=NRBC#) 0.00 10\S\3/uL 0.00-0.01 NEUTROPH % (test code=NE%) 77.6 % 35.0-73.0 LYMPH % (test code=LY%) 9.0 % 20.0-55.0 MONO % (test code=MO%) 5.3 % 2.5-10.0 EOSINOPH % (test code=EO%) 0.0 % 0.0-5.0 BASOPHIL % (test code=BA%) 0.4 % 0.0-2.0 IG % (test code=IG%) 7.7 % 0.0-0.8 NRBC% (test code=NRBC%) 0.0 % 0.0-0.2 MAN DIFF (test code=HMDIFF) MANUAL DIFFERENTIAL SEG (test code=SEG) 85 % 42-75 BAND (test code=BAND) 0 % 0-8 LYMPH (test code=LYMPH) 11 % 20-51 MONO (test code=MONO) 4 % 3-11 EOS (test code=EOS) 0 % 0-10 BASO (test code=BASO) 0 % 0-2 RBC MORPH (test code=RBCMORN) ABNORMAL NORMAL PLT EST (test code=PLTEST) INCREASED ADEQUATE PLT MORPH (test code=PLTMOR) NORMAL (1.5-3 um) NORMAL ANISO (test code=ANISO) 1+ NONE HYPOCHROM (test code=HYPOC) 1+ NONE MICROCYTIC (test code=MICRO) 1+ NONE BASIC METABOLIC [id number] 05:48:00 Test Item Value Reference Range Comments GLUCOSE (test code=06D) 114 mg/dL 75-100 SODIUM (test code=01A) 148 mmol/L 136-145 POTASSIUM (test code=01B) 3.2 mmol/L 3.6-5.1 CHLORIDE (test code=04A) 119 mmol/L 98-107 CO2 (test code=02A) 18 mmol/L 22-32 ANION GAP (test code=ANG) 14.2 mmol/L BUN (test code=05D) 17 mg/dL 7-18 CREATININE (test code=03E) 0.8 mg/dL 0.4-1.1 BUN/CREA (test code=BCR) 20 12-20 CALCIUM (test code=09D) 8.8 mg/dL 8.3-9.5 MRI BRAIN W/O [id number] 18:15:41LOCATION: A1EXAM: MRI BRAIN W/O CONTRASTINDICATION: R51: HEADACHECOMPARISON: CT head 03/24/16TECHNIQUE: Multiplanar, multisequence imaging of the brain obtained withoutcontrast.FINDINGS: No area of restricted diffusion is seen to suggest an acute stroke.No scleral hemorrhage identified. No mass lesion, cerebral edema or midlineshift. Few paraventricular foci of increased FLAIR and T2 signal mostconsistent with chronic small vessel white matter ischemic changes. Ventricles,sulci and basal cisterns are normal. A hydrocephalus. Intracranial flow voidsand dural venous sinuses are patent. Midline structures of the brain includingthe pituitary gland, optic chiasm, corpus callosum, carrie and midbrain arenormal. Calvarium and peripheral soft tissues are normal. Paranasal sinuses andmastoid air cells are clear.IMPRESSION: No acute stroke. No acute abnormality.XR CENTRAL LINE [id number] 16:06:23EXAMINATION: NON- TUNNELED CENTRAL VENOUS CATHETER PLACEMENT.LOCATION: [facility].HISTORY: The her central venous accessSEDATION: The patient did not require conscious sedation for the procedure.ANTIBIOTICS: None. Not indicated.TECHNIQUE: The risks, benefits, and alternatives were discussed and informedconsent was obtained. Prior to beginning the procedure, [facility] Protocol wasused to confirm the patient's identity and planned procedure. Maximum sterilebarriers including cap , mask, hand hygiene, sterilegloves, sterile gown, largesterile drape and cutaneous antisepsis were used.The skin over the right internal jugular vein was sterilely prepped, draped,and infiltrated with lidocaine.Prior to the procedure, the target vessel was evaluated by ultrasound. Animage of the patent vessel was recorded and saved to PACS. After sterile prep,this vessel was accessed with a micropuncture needle using real-time ultrasoundguidance. A guidewire and catheter were then passed centrally.After dilating the tract, a triple lumen central venous catheter was insertedover the guidewire. The catheter was flushed and secured in place. A steriledressing was applied. ESTIMATED BLOOD LOSS: Less than 30 milliliters.COMPLICATIONS: None.DISCHARGED TO : Done at bedside.FINDINGS: Ultrasound demonstrates a patent right internal jugular vein.Postplacement radiograph demonstrates the catheter with its tip centrallylocated. No complications are seen.IMPRESSION: Successful non- tunneled triple lumen central venous catheterplacement via the right internal jugular vein.PLAN: The catheter is ready for immediate use. When treatment is completed,this catheter can be removed at the bedside according to standard hospitalprotocol.U/S [id number] 16:06:23EXAMINATION: NON-TUNNELED CENTRAL VENOUS CATHETER PLACEMENT.LOCATION: [facility].HISTORY: The her central venous accessSEDATION: The patient did not require conscious sedation for the procedure.ANTIBIOTICS: None. Not indicated.TECHNIQUE: The risks, benefits, and alternatives were discussed and informedconsent was obtained. Prior to beginning the procedure, [facility] Protocol wasused to confirm the patient's identity and planned procedure. Maximum sterilebarriers including cap, mask, hand hygiene, sterilegloves, sterile gown, largesterile drape and cutaneous antisepsis were used.The skin over the right internal jugular vein was sterilely prepped, draped,and infiltrated with lidocaine.Prior to the procedure , the target vessel was evaluated by ultrasound. Animage of the patent vessel was recorded and saved to PACS. After sterile prep,this vessel was accessed with a micropuncture needle using real-time ultrasoundguidance. A guidewire and catheter were then passed centrally.After dilating the tract, a triple lumen central venous catheter was insertedover the guidewire. The catheter was flushed and secured in place. A steriledressing was applied. ESTIMATED BLOOD LOSS: Less than 30 milliliters.COMPLICATIONS: None.DISCHARGED TO: Done at bedside.FINDINGS: Ultrasound demonstrates a patent right internal jugular vein.Postplacement radiograph demonstrates the catheter with its tip centrallylocated. No complications are seen.IMPRESSION: Successful non- tunneled triple lumen central venous catheterplacement via the right internal jugular vein.PLAN: The catheter is ready for immediate use. When treatment is completed,this catheter can be removed at the bedside according to standard hospitalprotocol.CT ABDOMEN AND PELVIS WITH AND WITHOUT [id number] 15:59: 28Exam: CT abdomen and pelvis with and without contrast.Location: [facility].History: [id number]: Abdominal [id number]: VomitingTechnique: Unenhanced and enhanced spiral slices were taken from the domes ofthe diaphragm, through the pubic symphysis. Coronal reformations wereperformed. 100 cc of Omnipaque were used. One or more of the followingradiation dose reduction techniques was used: automated exposure control,adjustment of mA and/or KV according to patient size , and/or utilization ofiterative reconstruction technique.Findings:The liver is of normal, homogeneous density with a subcentimeter left hepaticcyst noted. No mass is seen. The hepatic and portal veins are patent. Theintra-and extrahepatic biliary tree is normal. The gallbladder is unremarkable.No pericholecystic fluid or wall thickening is present.The pancreas is normal. The pancreatic duct is normal in caliber. The spleenand adrenal glands are normal in size and shape.Nonobstructing bilateral renal calculi are seen measuring under 3 mm. Thekidneys are otherwise unremarkable. No perinephric fluid collections orhydronephrosis is seen.There isslight wall thickening involving the colon wall from cecum to rectum.The large and small intestine are normal in caliber. The appendix is normal. Noinflammatory change is seen. A small, fixed hiatal hernia is present.No lymphadenopathy or free fluid is found in the abdomen or the pelvis.The pelvic structures are unremarkable.Degenerative changes are present about the spine. The lung bases are clear.No incidental abdominal findings are seen.Impression:1. No acute abdominal findings.2. Slight wall thickening involving the colon diverticulitis and/or enteritis.3. Nephrolithiasis.4. Small, fixed hiatalhernia.XR CHEST 1 [id number] 08:54: 41Portable AP chest, 1 viewLocation Code: [id number] HISTORY: Chest painCOMPARISON: NoneCOMMENT: There is mild prominence of the central pulmonary vasculature and interstitium.Mild atelectasis is present within the lung bases. There is no lobarconsolidation or effusion. IMPRESSION: Mild central congestive changes and bibasilar atelectasis.XR ABDOMEN 1 VIEW [id number] 08:54:16Abdomen, 1 viewLocation Code: [id number] history: Lower abdominal painComments: The bowel gas pattern is unremarkable. There is no visualizedabnormal calcification. The visualized osseous structures are intact.Impression: No acute radiographic abnormality.GLUCOMETER GLUCOSE- LAB USE [id number] 07:50:00 Test Item Value Reference Range Comments GLUCOMETER (test code=GMG) 157 mg/dL 70-100 CLEANED METERMeter ID: [id number]: [id number] СВЕТЛАНА GAUTAM CBC WITH MANUAL [id number] 06:57:00 Test Item Value Reference Range Comments WBC (test code=WBC) 19.4 10\S\3/uL 4.5-11.0 RBC (test code=RBC) 3.66 10\S\6/uL 4.20-5.60 HGB (test code=HBG) 11.2 g/dL 12.0-15.5 HCT (test code=HCT) 34.4 % 35.0-44.0 MCV (test code=MCV) 94.0 fL 81.0-99.0 MCH (test code=MCH) 30.6 pg 27.0-31.0 MCHC (test code=MCHC) 32.6 g/dL 32.0-36.0 RDW (test code=RDW) 14.1 % 11.5-14.5 PLT (test code=PLT) 362 10\S\3/uL 130-400 MPV (test code=MPV) 10.3 fL 9.4-12.4 NEUTROP # (test code=NE#) 15.9 10\S\3/uL 1.6-8.0 LYMPH # (test code=LY#) 1.3 10\S\3/uL 1.1-3.5 MONOCYTE # (test code=MO#) 0.4 10\S\3/uL 0.0-1.1 EOSINOPH # (test code=EO#) 0.0 10\S\3/uL 0.0-0.7 BASOPHIL # (test code=BA#) 0.2 10\S\3/uL 0.0-0.3 IG # (test code=IG#) 1.65 10\S\3/uL 0.00-0.06 NRBC # (test code=NRBC#) 0.00 10\S\3/uL 0.00-0.01 NEUTROPH % (test code=NE%) 81.6 % 35.0-73.0 LYMPH % (test code=LY%) 6.9 % 20.0-55.0 MONO % (test code=MO%) 2.1 % 2.5-10.0 EOSINOPH % (test code=EO%) 0.0 % 0.0-5.0 BASOPHIL % (test code=BA%) 0.9 % 0.0-2.0 IG % (test code=IG%) 8.5 % 0.0-0.8 NRBC% (test code=NRBC%) 0.0 % 0.0-0.2 MAN DIFF (test code=HMDIFF) MANUAL DIFFERENTIAL SEG (test code=SEG) 83 % 42-75 BAND (test code=BAND) 1 % 0-8 LYMPH (test code=LYMPH) 13 % 20-51 MONO (test code=MONO) 3 % 3-11 EOS (test code=EOS) 0 % 0-10 BASO (test code=BASO) 0 % 0-2 RBC MORPH (test code=RBCMORN) ABNORMAL NORMAL PLT EST (test code=PLTEST) ADEQUATE ADEQUATE PLT MORPH (test code=PLTMOR) NORMAL (1.5-3 um) NORMAL ANISO (test code=ANISO) 1+ NONE HYPOCHROM (test code=HYPOC) 1+ NONE MACRO (test code=MACRO) 1+ NONE TROPONIN [id number] 05:58:00 Test Item Value Reference Range Comments TROPONIN I (test code=A84) <0.015 ng/mL 0.000-0.045 COMPREHENSIVE METABOLIC [id number] 05:44:00 Test Item Value Reference Range Comments GLUCOSE (test code=06D) 157 mg/dL 75-100 SODIUM (test code=01A) 140 mmol/L 136-145 POTASSIUM (test code=01B) 3.7 mmol/L 3.6-5.1 CHLORIDE (test code=04A) 113 mmol/L 98-107 CO2 (test code=02A) 14 mmol/L 22-32 ANION GAP (test code=ANG) 16.7 mmol/L BUN (test code=05D) 30 mg/dL 7-18 CREATININE (test code=03E) 0.9 mg/dL 0.4-1.1 BUN/CREA (test code=BCR) 34 12-20 CALCIUM (test code=09D) 9.0 mg/dL 8.3-9.5 BILI TOTAL (test code=11A) 0.4 mg/dL 0.2-1.0 PROTEIN (test code=07D) 7.9 g/dL 6.4-8.2 ALBUMIN (test code=08D) 2.8 g/dL 3.5-4.8 GLOBULIN (test code=GLB) 5.1 g/dL 1.5-3.8 ALB/GLOB (test code=AGRR) 0.5 1.0-2.6 ALK PHOS (test code=35A) 83 IU/L 42-121 AST (test code=30A) 13 IU/L <=42 ALT (test code=31A) 13 IU/L <=78 GLUCOMETER GLUCOSE- LAB USE [id number] 01:52:00 Test Item Value Reference Range Comments GLUCOMETER (test code=GMG) 110 mg/dL 70-100 Meter ID: [id number]: [id number] GAIL CIFUENTES TROPONIN [id number] 00:02:00 Test Item Value Reference Range Comments TROPONIN I (test code=A84) <0.015 ng/mL 0.000-0.045
[2018-11-20] MEDS ORDERED: FENTANYL CITR 100 MCG/2 ML ONE (15:49)
[2018-11-20] MEDS ORDERED: NA CHLORIDE 0.9% 1,000 ML ONE (15:49)
[2018-11-20] MEDS ORDERED: KETOROLAC 30 MG/ML INJ ONE (15:49)
[2018-11-20] MEDS ORDERED: CLINDAMYCIN 900MG/D5W 900 MG/50 ML IVPB IV ONE (15:49)
[2018-11-20 16:01] LABS: Absolute Lymphocytes (CBC) 2.5 K/uL (0.7-4.9); Absolute Monocytes 0.5 K/uL (0.1-1.3); Absolute Neutrophil 3.5 K/uL (1.8-8.0); Basophils % 0.6 % (0-1.3); Eosinophils % 3.6 % (0-4.4); Hematocrit 38.3 % (36.0-45.0); Lymphocytes % 36.8 % (15.3-44.8); MPV 7.8 fL (7.6-11.3); RBC Red Blood Cell Count 4.03 M/uL (3.86-4.86)
[2018-11-20 16:14] LABS: Potassium 3.6 mmol/L (3.5-5.1)
--- NOTE | 2018-11-20 16:17 | EDPHYS ---
Physician Documentation [facility] Name: Margie Garcia Age: 48 yrs Sex: Female : 1970 Arrival Date: 11/20/2018 Time: 14:44 Bed 30 Private MD: ED Physician Bobo Hidalgo HPI: 11/20 15:35 This 48 yrs old Female presents to ER via Ambulatory with complaints of Eye cp Swelling. 15:35 swelling around left eye. cp 15:35 Onset: The symptoms/episode began/occurred 2 day(s) ago, and became worse today. cp Duration: the symptoms are continuous. 15:35 Associated signs and symptoms: Pertinent positives: headache, Pertinent negatives: cp chills, dizziness, ear ache, fever, runny nose. Patient wears glasses. 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 - Social history:: Smoking status: Patient uses tobacco products, smokes one-half pack cigarettes per day. - Ebola Screening: : No symptoms or risks identified at this time. ROS: 15:40 Constitutional: Negative for body aches, chills, fever, poor PO intake. cp 15:40 Eyes: Negative for discharge, matting, redness, visual disturbance. cp 15:40 ENT: Negative for drainage from ear(s), ear pain, sinus congestion, sinus pain, sore throat, difficulty swallowing, difficulty handling secretions. 15:40 Cardiovascular: Negative for chest pain, palpitations. 15:40 Respiratory: Negative for cough, shortness of breath, wheezing. 15:40 Abdomen/GI: Negative for abdominal pain, nausea, vomiting, and diarrhea. 15:40 Skin: Positive for erythema, swelling, of the above and below left eye. 15:40 Neuro: Positive for headache, Negative for altered mental status, weakness. 15:40 All other systems are negative. Exam: 15:45 Constitutional: The patient appears in no acute distress, alert, awake, non-toxic, well cp developed, well nourished. 15:45 Head/face: Noted is erythema, that is mild, swelling, that is mild, of the above and below left eye, tenderness, that is mild. 15:45 Eyes: Pupils: equal, round, and reactive to light and accomodation, Extraocular movements: intact throughout, Conjunctiva: normal, no exudate, no injection, Sclera: no appreciated abnormality. 15:45 ENT: External ear(s): are unremarkable, Ear canal(s): are normal, clear, TM's: bulging, is not appreciated, bilaterally, dullness, bilaterally, erythema, is not appreciated, bilaterally, Nose: is normal, Mouth: Lips: moist, Oral mucosa: pink and intact, moist, Posterior pharynx: is normal, airway is patent, no erythema, no exudate. 15:45 Neck: ROM/movement: is normal, is supple, without pain, no range of motions limitations, no nuchal rigidity, Lymph nodes: no appreciated lymphadenopathy. 15:45 Chest/axilla: Inspection: normal. 15:45 Cardiovascular: Rate: normal. 15:45 Respiratory: the patient does not display signs of respiratory distress, Respirations: cp normal, no use of accessory muscles, no retractions, no splinting, no tachypnea, Breath sounds: are clear throughout, no decreased breath sounds, no stridor, no wheezing. 15:45 Abdomen/GI: Inspection: abdomen appears normal. 15:45 Neuro: Orientation: to person, place \T\ time. Mentation: is normal, Cerebellar function: cp is grossly normal, Motor: moves all fours, strength is normal. Vital Signs: 14:49 BP 170 / 113; Pulse 62; Resp 16; Temp 97.8; Pulse Ox 98% on R/A; Weight 95.25 kg; la1 Height 5 ft. 5 in. (165.10 cm); 15:05 BP 156 / 108; Pulse 69; Resp 18; Temp 98; Pulse Ox 100% on R/A; mg2 16:39 BP 134 / 86; Pulse 70; Resp 18; Temp 98; Pulse Ox 100% on R/A; mg2 14:49 Body Mass Index 34.95 (95.25 kg, 165.10 cm) la1 Visual Acuity: 16:56 Left Eye Visual acuity 20/25, Pupil size 2 mm, ; Right Eye Visual acuity 20/20, Pupil mg2 size 2 mm, ; Without Lenses; MDM: 15:13 Patient medically screened. cp 15:45 Differential diagnosis: cellulitis, abscess, herpes zoster. cp 16:15 Data reviewed: vital signs, nurses notes, lab test result(s), and as a result, I will cp discharge patient. 16:15 Counseling: I had a detailed discussion with the patient and/or guardian regarding: the cp historical points, exam findings, and any diagnostic results supporting the discharge/admit diagnosis, lab results, the need for outpatient follow up, a family practitioner, to return to the emergency department if symptoms worsen or persist or if there are any questions or concerns that arise at home. 16:15 Response to treatment: the patient's symptoms have markedly improved after treatment, cp and as a result, I will discharge patient. 11/20 15:25 Order name: Blood Culture Adult (2) cp 11/20 15:25 Order name: CBC with Diff; Complete Time: 16:15 cp 11/20 15:25 Order name: BMP; Complete Time: 16:15 11/20 15:25 Order name: Visual Acuity; Complete Time: 16:55 cp Administered Medications: 15:52 Drug: fentaNYL (PF) 25 mcg Route: IVP; Site: right hand; mg2 16:40 Follow up: Response: No adverse reaction; Marked relief of symptoms mg2 15:52 Drug: TORadol - Ketorolac 15 mg Route: IVP; Site: right hand; mg2 16:40 Follow up: Response: No adverse reaction; Marked relief of symptoms mg2 15:52 Drug: NS 0.9% 1000 ml Route: IV; Rate: 1 bolus; Site: right hand; mg2 16:12 Drug: Clindamycin 900 mg Route: IVPB; Infused Over: 30 mins; Site: right hand; mg2 16:39 Follow up: Response: No adverse reaction; IV Status: Completed infusion mg2 Disposition: 17:00 Chart complete. cp Disposition: 11/20/18 16:16 Discharged to Home. Impression: Cellulitis of face. - Condition is Stable. - Discharge Instructions: Cellulitis, Adult. - Prescriptions for Clindamycin HCl 300 mg Oral Capsule - take 1 capsule by ORAL route every 6 hours for 10 days; 40 capsule. Tramadol 50 mg Oral Tablet - take 1 tablet by ORAL route every 8 hours as needed; 12 tablet. - Medication Reconciliation Form, Thank You Letter, Antibiotic Education, Prescription Opioid Use form. - Follow up: Private Physician; When: 2 - 3 days; Reason: Recheck today's complaints. - Problem is new. - Symptoms have improved. Addendum: 11/22/2018 08:09 Co-signature as Attending Physician, Bobo Hidalgo MD I agree with the assessment and k dr plan of care. Signatures: Dispatcher [employer] EDMS Bobo Hidalgo MD MD kdr Fabiano Caldwell RN RN la1 Mike Cerrato PA PA cp Alvraado Mckeon RN RN mg2 Corrections: (The following items were deleted from the chart) 11/20 16:11/19 15:40 Constitutional: Negative for body aches, chills, fever, poor PO intake, cp cp 11/20 16:11/19 15:40 Eyes: Negative for discharge, redness, visual disturbance, cp cp 11/20 16:04 11/19 15:40 ENT: Negative for drainage from ear(s), ear pain, sore throat, difficulty cp swallowing, difficulty handling secretions, cp 11/20 16:04 11/19 15:40 Respiratory: Negative for cough, shortness of breath, wheezing, cp cp 11/20 16:04 11/19 15:40 Cardiovascular: Negative for chest pain, palpitations, cp cp 11/20 16:04 11/19 15:40 Neuro: Positive for headache, Negative for altered mental status, cp dizziness, weakness, cp 11/20 16:04 11/19 15:40 Abdomen/GI: Negative for abdominal pain, nausea, vomiting, and diarrhea, cp cp 11/20 16:04 11/19 15:40 Skin: Positive for erythema, swelling, of the above and below left eye, cp Negative for abscesses, cp 11/20 16:04 11/19 15:40 All other systems are negative, cp cp 11/20 16:57 16:16 11/20/2018 16:16 Discharged to Home. Impression: Cellulitis of face. Condition is mg2 Stable. Forms are Medication Reconciliation Form, Thank You Letter, Antibiotic Education, Prescription Opioid Use. Follow up: Private Physician; When: 2 - 3 days; Reason: Recheck today's complaints. Problem is new. Symptoms have improved. cp
--- NOTE | 2018-11-20 16:17 | ER ---
Nurse's Notes [facility] Name: Margie Garcia Age: 48 yrs Sex: Female : 1970 Arrival Date: 11/20/2018 Time: 14:44 Bed 30 Private MD: Diagnosis: Cellulitis of face Presentation: 11/20 14:48 Presenting complaint: Patient states: swelling and redness around left eye. Pt reports la1 clear drainage and itching, denies visual loss. Transition of care: patient was not received from another setting of care. Onset of symptoms was November 20, 2018. Risk Assessment: Do you want to hurt yourself or someone else? Patient reports no desire to harm self or others. Initial Sepsis Screen: Does the patient meet any 2 criteria? No. Patient's initial sepsis screen is negative. Does the patient have a suspected source of infection? No. Patient's initial sepsis screen is negative. Care prior to arrival: None. 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 - Social history:: Smoking status: Patient uses tobacco products, smokes one-half pack cigarettes per day. - Ebola Screening: : No symptoms or risks identified at this time. Screenin:54 Abuse screen: Denies threats or abuse. Denies injuries from another. Nutritional mg2 screening: No deficits noted. Tuberculosis screening: No symptoms or risk factors identified. Fall Risk IV access (20 points). Assessment: 15:53 General: Appears in no apparent distress. comfortable, Behavior is calm, cooperative. mg2 Pain: Complains of pain in left eye Pain does not radiate. Pain currently is 5 out of 10 on a pain scale. Quality of pain is described as aching, Pain began gradually, 1 day ago. Is intermittent. Neuro: Level of Consciousness is awake, alert, obeys commands, Oriented to person, place, time, situation. Cardiovascular: Capillary refill < 3 seconds Patient's skin is warm and dry. Respiratory: Airway is patent Respiratory effort is even, unlabored, Respiratory pattern is regular, symmetrical. GI: No deficits noted. : No deficits noted. EENT: Eyes swelling. Derm: Skin is intact, is healthy with good turgor, Skin is pink, warm \T\ dry. normal. Musculoskeletal: Circulation, motion, and sensation intact. Capillary refill < 3 seconds. 16:43 Reassessment: patient for discharge after receiving iv antibiotics. mg2 16:55 Reassessment: Patient states feeling better. Patient states symptoms have improved. mg2 Vital Signs: 14:49 BP 170 / 113; Pulse 62; Resp 16; Temp 97.8; Pulse Ox 98% on R/A; Weight 95.25 kg; la1 Height 5 ft. 5 in. (165.10 cm); 15:05 BP 156 / 108; Pulse 69; Resp 18; Temp 98; Pulse Ox 100% on R/A; mg2 16:39 BP 134 / 86; Pulse 70; Resp 18; Temp 98; Pulse Ox 100% on R/A; mg2 14:49 Body Mass Index 34.95 (95.25 kg, 165.10 cm) la1 Visual Acuity: 16:56 Left Eye Visual acuity 20/25, Pupil size 2 mm, ; Right Eye Visual acuity 20/20, Pupil mg2 size 2 mm, ; Without Lenses; ED Course: 14:44 Patient arrived in ED. rg4 14:49 Triage completed. la1 14:50 Arm band placed on left wrist. la1 14:58 Alvarado Mckeon, MARCK is Primary Nurse. mg2 15:12 Mike Cerrato PA is PHCP. cp 15:12 Bobo Hidalgo MD is Attending Physician. cp 15:54 Patient has correct armband on for positive identification. mg2 15:54 No provider procedures requiring assistance completed. Inserted saline lock: 22 gauge mg2 in right hand, using aseptic technique. Blood collected. 16:55 IV discontinued, intact, bleeding controlled, No redness/swelling at site. Pressure mg2 dressing applied. Administered Medications: 15:52 Drug: fentaNYL (PF) 25 mcg Route: IVP; Site: right hand; mg2 16:40 Follow up: Response: No adverse reaction; Marked relief of symptoms mg2 15:52 Drug: TORadol - Ketorolac 15 mg Route: IVP; Site: right hand; mg2 16:40 Follow up: Response: No adverse reaction; Marked relief of symptoms mg2 15:52 Drug: NS 0.9% 1000 ml Route: IV; Rate: 1 bolus; Site: right hand; mg2 16:12 Drug: Clindamycin 900 mg Route: IVPB; Infused Over: 30 mins; Site: right hand; mg2 16:39 Follow up: Response: No adverse reaction; IV Status: Completed infusion mg2 Outcome: 16:16 Discharge ordered by MD. cp 16:55 Discharged to home ambulatory, with family. mg2 16:55 Condition: stable 16:55 Discharge instructions given to patient, family, Instructed on discharge instructions, follow up and referral plans. medication usage, Demonstrated understanding of instructions, follow-up care, medications, Prescriptions given X 2. 16:57 Patient left the ED. mg2 Signatures: Fabiano Caldwell RN RN la1 Mike Cerrato PA PA cp Garcia, Rubi rg4 Alvarado Mckeon RN RN mg2 Corrections: (The following items were deleted from the chart) 16:57 16:56 Right Eye Without Lenses, 20/25, Pupil Size 2 mm, Left Eye Without Lenses, 20/20, mg2 Pupil Size 2 mm mg2
== END 2018-11-20 16:57 | disposition home or self-care (01) ==
LOC: ER 14:41
DX: L03.211 Cellulitis of face (principal); I10 Essential (primary) hypertension; F17.210 Nicotine dependence, cigarettes, uncomplicated
CPT/HCPCS: 36415; 80048; 85025; 87040; 96365; 96375; 99284; J3010; J7030

== ENCOUNTER 2019-05-17 04:05 | Emergency (ER) | payer BC ==
--- OUTSIDE RECORDS SUMMARY | 2019-05-17 04:11 | XMS REPORT ---
:1970 [facility] [address] [place] [address] Care Team Providers Name Role Phone DR CAS ERVIN I Unavailable Unavailable TONNY, DR BATISTA Unavailable Unavailable ELEANOR, DR OSBORNE Unavailable Unavailable WILLIAM, DR KRUEGER Unavailable Unavailable CHRIS, GERMAN Unavailable Unavailable Problems This patient has no known problems. Allergies, Adverse Reactions, Alerts This patient has no known allergies or adverse reactions. Medications This patient has no known medications. Encounters Start End Encounter Admission Attending Care Care Encounter Date/Time Date/Time Type Type Clinicians Facility Department ID 2019-01-21 2019-01-24 [place] [facility] [id number] 17:51:00 13:13:00 CAS 2018-07-16 2018-07-19 [place] [facility] [id number] 15:24:00 14:47:00 LESTER 2018-06-30 2018-07-01 Outpatient E ELEANOR, [facility] [id number] 16:03:00 17:15:00 DYLON 2018-05-17 2018-05-17 Emergency E WILLIAM [facility] [id number] 13:38:00 15:27:00 PATI 2018-03-09 2018-03-09 Emergency E CHRIS, [facility] [id number] 10:29:00 14:00:00 ANDREW Results Test Description Test Time Test Comments Text Results Atomic Results Result Comments MAGNESIUM WW 2019-01-24 06:19:00 Test Item Value Reference Range Comments MAGNESIUM (test code=48A) 2.0 mg/dL 1.8-2.4 BASIC METABOLIC PANEL *WW*2019-01-24 06:05:00 Test Item Value Reference Range Comments GLUCOSE (test code=06D) 91 mg/dL 75-100 SODIUM (test code=01A) 136 mmol/L 136-145 POTASSIUM (test code=01B) 3.1 mmol/L 3.6-5.1 CHLORIDE (test code=04A) 103 mmol/L 98-107 CO2 (test code=02A) 23 mmol/L 22-32 ANION GAP (test code=ANG) 13.1 mmol/L BUN (test code=05D) 15 mg/dL 7-18 CREATININE (test code=03E) 0.5 mg/dL 0.4-1.1 BUN/CREA (test code=BCR) 28 12-20 CALCIUM (test code=09D) 8.3 mg/dL 8.3-9.5 CBC (INCLUDES AUTOMATED DIFFERENTIAL)*[id number] 05:53:00 Test Item Value Reference Range Comments WBC (test code=WBC) 8.5 10\S\3/uL 4.5-11.0 RBC (test code=RBC) 3.78 10\S\6/uL 4.20-5.60 HGB (test code=HBG) 12.2 g/dL 12.0-15.5 HCT (test code=HCT) 37.4 % 35.0-44.0 MCV (test code=MCV) 98.9 fL 81.0-99.0 MCH (test code=MCH) 32.3 pg 27.0-31.0 MCHC (test code=MCHC) 32.6 g/dL 32.0-36.0 RDW (test code=RDW) 13.2 % 11.5-14.5 PLT (test code=PLT) 234 10\S\3/uL 130-400 MPV (test code=MPV) 9.6 fL 9.4-12.4 NEUTROP # (test code=NE#) 6.3 10\S\3/uL 1.6-8.0 LYMPH # (test code=LY#) 1.5 10\S\3/uL 1.1-3.5 MONOCYTE # (test code=MO#) 0.6 10\S\3/uL 0.0-1.1 EOSINOPH # (test code=EO#) 0.0 10\S\3/uL 0.0-0.7 BASOPHIL # (test code=BA#) 0.0 10\S\3/uL 0.0-0.3 IG # (test code=IG#) 0.03 10\S\3/uL 0.00-0.06 NRBC # (test code=NRBC#) 0.00 10\S\3/uL 0.00-0.01 NEUTROPH % (test code=NE%) 73.6 % 35.0-73.0 LYMPH % (test code=LY%) 18.2 % 20.0-55.0 MONO % (test code=MO%) 7.3 % 2.5-10.0 EOSINOPH % (test code=EO%) 0.1 % 0.0-5.0 BASOPHIL % (test code=BA%) 0.4 % 0.0-2.0 IG % (test code=IG%) 0.4 % 0.0-0.8 NRBC% (test code=NRBC%) 0.0 % 0.0-0.2 MANDIFF (test code=WMDIFF) NO NO RBC MORPH (test code=WRBCMOR) NORMAL BASIC METABOLIC PANEL 2019-01-23 06:59:00 Test Item Value Reference Range Comments GLUCOSE (test code=06D) 81 mg/dL 75-100 SODIUM (test code=01A) 140 mmol/L 136-145 POTASSIUM (test code=01B) 3.1 mmol/L 3.6-5.1 CHLORIDE (test code=04A) 107 mmol/L 98-107 CO2 (test code=02A) 25 mmol/L 22-32 ANION GAP (test code=ANG) 11.1 mmol/L BUN (test code=05D) 18 mg/dL 7-18 CREATININE (test code=03E) 0.7 mg/dL 0.4-1.1 BUN/CREA (test code=BCR) 27 12-20 CALCIUM (test code=09D) 8.3 mg/dL 8.3-9.5 PRO TIME AND PTT 2019-01-23 06:18:00 Test Item Value Reference Range Comments PT (test code=TT) 14.4 s 9.8-13.6 INR (test code=INR) 1.3 INRH (test code=INRH) SUGGESTED THERAPEUTIC RANGE FOR INR: 2.5 - 3.5 For Patients with Prosthetic Valves or Patients with recurrent Thromboembolic Events 2.0 - 3.0 For Most Other Applications PTT (test code=PTT) 25.9 s 20.2-38.0 PTTH (test code=PTTH) To monitor the effectiveness of heparin, we offer the Anti-Xa (Heparin Assay). It can be used for either unfractionated or LMW Heparin. Order Code is ANTI-XA MAGNESIUM WW2019-01-23 06:02:00 Test Item Value Reference Range Comments MAGNESIUM (test code=48A) 2.0 mg/dL 1.8-2.4 CBC (INCLUDES AUTOMATED DIFFERENTIAL)*[id number] 05:59:00 Test Item Value Reference Range Comments WBC (test code=WBC) 8.4 10\S\3/uL 4.5-11.0 RBC (test code=RBC) 3.67 10\S\6/uL 4.20-5.60 HGB (test code=HBG) 11.7 g/dL 12.0-15.5 HCT (test code=HCT) 35.3 % 35.0-44.0 MCV (test code=MCV) 96.2 fL 81.0-99.0 MCH (test code=MCH) 31.9 pg 27.0-31.0 MCHC (test code=MCHC) 33.1 g/dL 32.0-36.0 RDW (test code=RDW) 13.2 % 11.5-14.5 PLT (test code=PLT) 241 10\S\3/uL 130-400 MPV (test code=MPV) 9.4 fL 9.4-12.4 NEUTROP # (test code=NE#) 5.3 10\S\3/uL 1.6-8.0 LYMPH # (test code=LY#) 2.2 10\S\3/uL 1.1-3.5 MONOCYTE # (test code=MO#) 0.7 10\S\3/uL 0.0-1.1 EOSINOPH # (test code=EO#) 0.1 10\S\3/uL 0.0-0.7 BASOPHIL # (test code=BA#) 0.1 10\S\3/uL 0.0-0.3 IG # (test code=IG#) 0.03 10\S\3/uL 0.00-0.06 NRBC # (test code=NRBC#) 0.00 10\S\3/uL 0.00-0.01 NEUTROPH % (test code=NE%) 63.7 % 35.0-73.0 LYMPH % (test code=LY%) 25.7 % 20.0-55.0 MONO % (test code=MO%) 8.8 % 2.5-10.0 EOSINOPH % (test code=EO%) 0.8 % 0.0-5.0 BASOPHIL % (test code=BA%) 0.6 % 0.0-2.0 IG % (test code=IG%) 0.4 % 0.0-0.8 NRBC% (test code=NRBC%) 0.0 % 0.0-0.2 MANDIFF (test code=WMDIFF) NO NO RBC MORPH (test code=WRBCMOR) NORMAL BASIC METABOLIC PANEL 2019-01-22 07:12:00 Test Item Value Reference Range Comments GLUCOSE (test code=06D) 86 mg/dL 75-100 SODIUM (test code=01A) 141 mmol/L 136-145 POTASSIUM (test code=01B) 3.2 mmol/L 3.6-5.1 CHLORIDE (test code=04A) 109 mmol/L 98-107 CO2 (test code=02A) 24 mmol/L 22-32 ANION GAP (test code=ANG) 11.2 mmol/L BUN (test code=05D) 20 mg/dL 7-18 CREATININE (test code=03E) 0.6 mg/dL 0.4-1.1 BUN/CREA (test code=BCR) 33 12-20 CALCIUM (test code=09D) 8.4 mg/dL 8.3-9.5 CARDIAC PROFILE 2019-01-22 06:11:00 Test Item Value Reference Range Comments TROPONIN I (test code=A84) <0.015 ng/mL 0.000-0.045 CBC (INCLUDES AUTOMATED DIFFERENTIAL)*[id number] 06:06:00 Test Item Value Reference Range Comments WBC (test code=WBC) 12.4 10\S\3/uL 4.5-11.0 RBC (test code=RBC) 3.52 10\S\6/uL 4.20-5.60 HGB (test code=HBG) 11.1 g/dL 12.0-15.5 HCT (test code=HCT) 34.1 % 35.0-44.0 MCV (test code=MCV) 96.9 fL 81.0-99.0 MCH (test code=MCH) 31.5 pg 27.0-31.0 MCHC (test code=MCHC) 32.6 g/dL 32.0-36.0 RDW (test code=RDW) 13.5 % 11.5-14.5 PLT (test code=PLT) 259 10\S\3/uL 130-400 MPV (test code=MPV) 9.4 fL 9.4-12.4 NEUTROP # (test code=NE#) 9.4 10\S\3/uL 1.6-8.0 LYMPH # (test code=LY#) 2.0 10\S\3/uL 1.1-3.5 MONOCYTE # (test code=MO#) 0.9 10\S\3/uL 0.0-1.1 EOSINOPH # (test code=EO#) 0.0 10\S\3/uL 0.0-0.7 BASOPHIL # (test code=BA#) 0.0 10\S\3/uL 0.0-0.3 IG # (test code=IG#) 0.08 10\S\3/uL 0.00-0.06 NRBC # (test code=NRBC#) 0.00 10\S\3/uL 0.00-0.01 NEUTROPH % (test code=NE%) 75.7 % 35.0-73.0 LYMPH % (test code=LY%) 16.2 % 20.0-55.0 MONO % (test code=MO%) 7.2 % 2.5-10.0 EOSINOPH % (test code=EO%) 0.1 % 0.0-5.0 BASOPHIL % (test code=BA%) 0.2 % 0.0-2.0 IG % (test code=IG%) 0.6 % 0.0-0.8 NRBC% (test code=NRBC%) 0.0 % 0.0-0.2 MANDIFF (test code=WMDIFF) NO NO RBC MORPH (test code=WRBCMOR) NORMAL MAGNESIUM 2019-01-22 06:03:00 Test Item Value Reference Range Comments MAGNESIUM (test code=48A) 2.2 mg/dL 1.8-2.4 TROPONIN I *WW*2019-01-21 14:09:00 Test Item Value Reference Range Comments TROPONIN I (test code=A84) <0.015 ng/mL 0.000-0.045 LACTIC ACID WW2019-01-21 06:18:00 Test Item Value Reference Range Comments LACTIC ACD (test code=LA) 1.1 mmol/L 0.4-2.0 BASIC METABOLIC PANEL 2019-01-21 06:17:00 Test Item Value Reference Range Comments GLUCOSE (test code=06D) 144 mg/dL 75-100 SODIUM (test code=01A) 141 mmol/L 136-145 POTASSIUM (test code=01B) 3.0 mmol/L 3.6-5.1 CHLORIDE (test code=04A) 108 mmol/L 98-107 CO2 (test code=02A) 24 mmol/L 22-32 ANION GAP (test code=ANG) 11.9 mmol/L BUN (test code=05D) 16 mg/dL 7-18 CREATININE (test code=03E) 0.7 mg/dL 0.4-1.1 BUN/CREA (test code=BCR) 23 12-20 CALCIUM (test code=09D) 8.7 mg/dL 8.3-9.5 CBC (INCLUDES AUTOMATED DIFFERENTIAL)*[id number] 06:00:00 Test Item Value Reference Range Comments WBC (test code=WBC) 15.6 10\S\3/uL 4.5-11.0 RBC (test code=RBC) 3.87 10\S\6/uL 4.20-5.60 HGB (test code=HBG) 12.0 g/dL 12.0-15.5 HCT (test code=HCT) 35.8 % 35.0-44.0 MCV (test code=MCV) 92.5 fL 81.0-99.0 MCH (test code=MCH) 31.0 pg 27.0-31.0 MCHC (test code=MCHC) 33.5 g/dL 32.0-36.0 RDW (test code=RDW) 13.5 % 11.5-14.5 PLT (test code=PLT) 325 10\S\3/uL 130-400 MPV (test code=MPV) 9.5 fL 9.4-12.4 NEUTROP # (test code=NE#) 13.7 10\S\3/uL 1.6-8.0 LYMPH # (test code=LY#) 1.1 10\S\3/uL 1.1-3.5 MONOCYTE # (test code=MO#) 0.8 10\S\3/uL 0.0-1.1 EOSINOPH # (test code=EO#) 0.0 10\S\3/uL 0.0-0.7 BASOPHIL # (test code=BA#) 0.0 10\S\3/uL 0.0-0.3 IG # (test code=IG#) 0.08 10\S\3/uL 0.00-0.06 NRBC # (test code=NRBC#) 0.00 10\S\3/uL 0.00-0.01 NEUTROPH % (test code=NE%) 87.6 % 35.0-73.0 LYMPH % (test code=LY%) 6.7 % 20.0-55.0 MONO % (test code=MO%) 4.9 % 2.5-10.0 EOSINOPH % (test code=EO%) 0.0 % 0.0-5.0 BASOPHIL % (test code=BA%) 0.3 % 0.0-2.0 IG % (test code=IG%) 0.5 % 0.0-0.8 NRBC% (test code=NRBC%) 0.0 % 0.0-0.2 MANDIFF (test code=WMDIFF) NO NO RBC MORPH (test code=WRBCMOR) NORMAL URINALYSIS WITH [id number] 21:55:00 Test Item Value Reference Range Comments COLOR (test code=COLU) YELLOW YELLOW CLARITY (test code=CLA) CLEAR CLEAR GLUCOSE UR (test code=UA GLUCOSE) NEGATIVE NEGATIVE BILI UR (test code=BILE) NEGATIVE NEGATIVE KETONES UR (test code=AUGUSTINE) 3+ NEGATIVE SP GRAVITY (test code=SPGR) 1.030 1.005-1.030 PH UR (test code=PH) 6.0 4.5-8.0 PROTEIN UR (test code=PU) 2+ NEGATIVE UROBIL UR (test code=UROQ) 0.2 EU/dL 0.2-1.0 NITRITE UR (test code=NITRITE) NEGATIVE NEGATIVE BLOOD UR (test code=UA BLOOD) NEGATIVE NEGATIVE LEUK ES UR (test code=LEUK) NEGATIVE NEGATIVE WBC UR (test code=UWBC) 0 /HPF 0-5 RBC UR (test code=URBC) 0 [...] NONE SPERM UR (test code=USPERM) /HPF NONE DRUGS OF [id number] 21:55:00 Test Item Value Reference Range Comments DRUG SCRN (test code=HDOA) URINE DRUG SCREEN This is an unconfirmed screening result and should not be used for non-medical purposes CANNABINOD (test code=88C) POSITIVE NEGATIVE AMPHETAMINE (test code=84A) Negative NEGATIVE BENZODIAZP (test code=86A) Negative NEGATIVE BARBITURAT (test code=85A) POSITIVE NEGATIVE OPIATES (test code=92B) POSITIVE NEGATIVE COCAINE (test code=87A) Negative NEGATIVE PHENCYCLID (test code=66A) Negative NEGATIVE METHADONE (test code=64A) Negative NEGATIVE DOAH (test code=DOAH.) URINE DRUG SCREEN Cut-off values are as follows: Cannabinoids 50 ng/mL Cocaine 300 ng/mL Amphetamines 1000 ng/mL Phencyclidine 25 ng/mL Benzodiazepines 200 ng.mL Methadone 300 ng/mL Barbiturates 200 ng/mL Opiates 2000 ng/mL CT ABDOMEN AND PELVIS WITH [id number] 21:03:20Exam: CT abdomen and pelvis with contrast.Location: H 12History: diffuse abdominal pain, vomitingTechnique: Enhanced spiral slices were taken from the domes of the diaphragm,through the pubic symphysis. Coronal reformations were performed. One or moreof the following radiation dose reduction techniques was used: automatedexposure control, adjustment of mA and/or KV according to patient size , and/orutilization of iterative reconstruction technique.Findings:The liver is of normal, homogeneous density with a subcentimeter left hepaticcyst noted. No mass is seen. The hepatic and portal veins are patent. Theintra-and extrahepatic biliary tree is normal. The gallbladder is unremarkable.No pericholecystic fluid or wall thickening is present.The pancreas is normal. The pancreatic duct is normal in caliber. The spleenand adrenal glands are normal in size and shape.Nonobstructing punctate bilateral renal calculi are present. The kidneys areunremarkable. No perinephric fluid collections or hydronephrosis is seen.The large and small intestine are normal in caliber. The appendix is normal. Noinflammatory change is seen.No lymphadenopathy or free fluid is found in the abdomen or the pelvis.The pelvic structures are unremarkable.The lung bases are clear.No incidental abdominal findings are seen.Impression:1. No acute abdominal findings.2. Nephrolithiasis.3. Otherwise unremarkable exam.CT CHEST W/ [id number] 21:02:21Chest CT with contrast.Location Code: [id number] HISTORY: chest pain, vomitingCOMPARISON: NoneTechnique: Helical CT of the chest was performed following the administrationof IV contrast. 5 mm axial, sagittal and coronal images were obtained. One ormore of the following dose reduction techniques were used: Automated exposurecontrol, adjustment of the mA and or KV according to patient size, and/orutilization of iterative reconstruction technique. DLP: 2483 mGy-cm.FINDINGS:Minimal atelectasis is present in the dependent lung bases. The lungs areotherwise clear. There is no nodule, mass, consolidation or effusion. Minimalbibasilar subsegmental atelectasis noted.There is no mediastinal, hilar, or axillary adenopathy. There is no pericardialeffusion. The heart is not enlarged. There is no mediastinal hematoma.Images through the upper abdomen are unremarkable. The bones, skin, and surrounding soft tissues are unremarkable.IMPRESSION: 1. Minimal bibasilar subsegmental atelectasis and otherwise unremarkable exam.CT HEAD W/O [id number] 20:54:59Clinical History: Headache. Location: D4.Findings: Multislice axial noncontrast images are obtained through the head.Comparison is made with previous study dated July 16, 2018. No areas ofabnormal density identified within the brain. There is no mass effect. Nohydrocephalus. No intra or extra-axialhemorrhage or fluid collections areidentified. There is no evidence of acute infarct. No abnormalities are notedof the visualized skeletal structures, sinuses, or soft tissues.Impression:1. No abnormalities are identified.*One or more of the following radiation dose reduction techniques was used:automated exposure control, adjustment of mA and/or KV according to patientsize, and/or utilization of iterative reconstruction technique.OCCULT [id number] 20:16:00 Test Item Value Reference Range Comments Direct Exam (test code=DE1) POSITIVE FOR OCCULT BLOOD [id number] 20:03:00 Test Item Value Reference Range Comments D-DIMER (test code=DDI) <200 ng/mL D-DU 0-234 D-DIMER COMMENT (test *Level to rule out DVT or PE: code=DDCOM) <235 ng/mL D-DU* PRO TIME AND [id number] 20:03:00 Test Item Value Reference Range Comments PT (test code=TT) 11.8 s 9.8-13.6 INR (test code=INR) 1.0 INRH (test code=INRH) SUGGESTED THERAPEUTIC RANGE FOR INR: 2.5 - 3.5 For Patients with Prosthetic Valves or Patients with recurrent Thromboembolic Events 2.0 - 3.0 For Most Other Applications PTT (test code=PTT) 26.0 s 20.2-38.0 PTTH (test code=PTTH) To monitor the effectiveness of heparin, we offer the Anti-Xa (Heparin Assay). It can be used for either unfractionated or LMW Heparin. Order Code is ANTI-XA [id number] 20:02:00 Test Item Value Reference Range Comments CPK (test code=32A) 140 IU/L 26-192 COMPREHENSIVE METABOLIC [id number] 20:02:00 Test Item Value Reference Range Comments GLUCOSE (test code=06D) 142 mg/dL 75-100 SODIUM (test code=01A) 142 mmol/L 136-145 POTASSIUM (test code=01B) 3.7 mmol/L 3.6-5.1 CHLORIDE (test code=04A) 110 mmol/L 98-107 CO2 (test code=02A) 21 mmol/L 22-32 ANION GAP (test code=ANG) 14.7 mmol/L BUN (test code=05D) 16 mg/dL 7-18 CREATININE (test code=03E) 0.8 mg/dL 0.4-1.1 BUN/CREA (test code=BCR) 21 12-20 CALCIUM (test code=09D) 9.2 mg/dL 8.3-9.5 BILI TOTAL (test code=11A) 0.4 mg/dL 0.2-1.0 PROTEIN (test code=07D) 7.7 g/dL 6.4-8.2 ALBUMIN (test code=08D) 4.3 g/dL 3.5-4.8 GLOBULIN (test code=GLB) 3.4 g/dL 1.5-3.8 ALB/GLOB (test code=AGRR) 1.3 1.0-2.6 ALK PHOS (test code=35A) 74 IU/L 42-121 AST (test code=30A) 20 IU/L <=42 ALT (test code=31A) 18 IU/L <=78 TROPONIN [id number] 19:55:00 Test Item Value Reference Range Comments TROPONIN I (test code=A84) <0.015 ng/mL 0.000-0.045 XR CHEST 1 VIEW [id number] 19:40:49Exam: Chest portable erectLocation: H 12History: chest painComparison: 06/30/2018Findings:The lungs are clear. No infiltrate or effusion is seen. The pulmonaryvasculature is normal. The heart size is mildly enlarged. Atherosclerosisinvolves the aorta. The mediastinal silhouette is unremarkable. The bony thoraxis intact with degenerative changes noted.Impression:No acute disease.CBC (INCLUDES AUTOMATED DIFFERENTIAL) 19:40:00 Test Item Value Reference Range Comments WBC (test code=WBC) 17.3 10\S\3/uL 4.5-11.0 RBC (test code=RBC) 3.86 10\S\6/uL 4.20-5.60 HGB (test code=HBG) 12.1 g/dL 12.0-15.5 HCT (test code=HCT) 35.2 % 35.0-44.0 MCV (test code=MCV) 91.2 fL 81.0-99.0 MCH (test code=MCH) 31.3 pg 27.0-31.0 MCHC (test code=MCHC) 34.4 g/dL 32.0-36.0 RDW (test code=RDW) 13.6 % 11.5-14.5 PLT (test code=PLT) 309 10\S\3/uL 130-400 MPV (test code=MPV) 10.2 fL 9.4-12.4 NEUTROP # (test code=NE#) 15.2 10\S\3/uL 1.6-8.0 LYMPH # (test code=LY#) 1.1 10\S\3/uL 1.1-3.5 MONOCYTE # (test code=MO#) 0.9 10\S\3/uL 0.0-1.1 EOSINOPH # (test code=EO#) 0.0 10\S\3/uL 0.0-0.7 BASOPHIL # (test code=BA#) 0.0 10\S\3/uL 0.0-0.3 IG # (test code=IG#) 0.08 10\S\3/uL 0.00-0.06 NRBC # (test code=NRBC#) 0.00 10\S\3/uL 0.00-0.01 NEUTROPH % (test code=NE%) 88.0 % 35.0-73.0 LYMPH % (test code=LY%) 6.3 % 20.0-55.0 MONO % (test code=MO%) 5.0 % 2.5-10.0 EOSINOPH % (test code=EO%) 0.0 % 0.0-5.0 BASOPHIL % (test code=BA%) 0.2 % 0.0-2.0 IG % (test code=IG%) 0.5 % 0.0-0.8 NRBC% (test code=NRBC%) 0.0 % 0.0-0.2 MANDIFF (test code=MDIFF) NO NO COMPREHENSIVE METABOLIC [id number] 04:10:00 Test Item Value Reference Range Comments [...] RBC MORPH (test code=RBCMOR) NORMAL BASIC METABOLIC [id number] 05:47:00 Test Item Value Reference Range Comments [...] CALCIUM (test code=09D) 8.3 mg/dL 8.3-9.5 CARDIAC [id number] 02:45:00 Test Item Value Reference Range Comments TROPONIN I (test code=A84) 0.059 ng/mL 0.000-0.045 CARDIAC [id number] 18:36:00 Test Item Value Reference Range Comments TROPONIN I (test code=A84) 0.059 ng/mL 0.000-0.045 CT ABDOMEN AND PELVIS WITH [id number] 15:14:52EXAM: CT abdomen and pelvis with contrastLocation: [...] iterative reconstruction technique.DLP: 1534 mGy-cm CTDI 28 [id number] 13:05:00 Test Item Value Reference Range Comments MAGNESIUM (test code=48A) 1.9 mg/dL 1.8-2.4 CT HEAD W/O [id number] 12:54:16EXAM: CT head without contrastLocation: [id number]: NoneINDICATION: HeadacheTECHNIQUE: Axial images of the brain [...] technique.DLP: 854 mGy- cmCTDI 45 mGyDRUGS OF [id number] 12:54:00 Test Item Value Reference Range Comments [...] 200 ng/mL Opiates 2000 ng/mL URINALYSIS WITH [id number] 12:46:00 Test Item Value Reference Range Comments [...] SPERM UR (test code=USPERM) /HPF NONE URINE [id number] 12:39:00 Test Item Value Reference Range Comments PREG UR (test code=PGU) NEGATIVE NEGATIVE COMPREHENSIVE METABOLIC [id number] 12:37:00 Test Item Value Reference Range Comments [...] (test code=31A) 17 IU/L <=78 AMYLASE AND [id number] 12:34:00 Test Item Value Reference Range Comments AMYLASE (test code=10A) 53 U/L 28-100 LIPASE (test code=60A) 45 IU/L 73-393 TROPONIN [id number] 12:33:00 Test Item Value Reference Range Comments TROPONIN I (test code=A84) 0.087 ng/mL 0.000-0.045 [id number] 12:26:00 Test Item Value Reference Range Comments [...] MORPH (test code=RBCMOR) NORMAL DIRECT STREP GROUP [id number] 07:45:00 Test Item Value Reference Range Comments Culture Observations (test NO BETA HEMOLYTIC code=COB1) STREPTOCOCCUS ISOLATED Direct Exam (test code=DE1) NO STREPTOCOCCUS GROUP A ANTIGEN DETECTED THYROID PANEL/SCREEN (TSH)2018-07-01 05:50:00 Test Item Value Reference Range Comments TSH (test code=A57) 0.453 uIU/mL 0.358-3.740 CARDIAC [id number] 05:16:00 Test Item Value Reference Range Comments TROPONIN I (test code=A84) <0.015 ng/mL 0.000-0.045 BASIC METABOLIC [id number] 04:55:00 Test Item Value Reference Range Comments [...] NO RBC MORPH (test code=RBCMOR) NORMAL CARDIAC [id number] 21:20:00 Test Item Value Reference Range Comments TROPONIN I (test code=A84) <0.015 ng/mL 0.000-0.045 URINE [id number] 17:31:00 Test Item Value Reference Range Comments PREG UR (test code=PGU) NEGATIVE NEGATIVE U/S [id number] 13:56:23EXAMINATION: U/S GALLBLADDER.LOCATION: D4.HISTORY: Right upper quadrant [...] 06/30/2018 [address] details.CT ABDOMEN AND PELVIS WITH [id number] 12:09:32EXAMINATION: CT ABDOMEN AND PELVIS WITH CONTRAST.LOCATION: [...] consultation and colonoscopy.Bilateral nephrolithiasis.Atherosclerotic vascular calcifications.Arterial Blood [id number] 12:05:00 Test Item Value Reference Range Comments pH (test code=PHRT) 7.498 7.350-7.450 pCO2 (test code=PCO2RT) 31.4 mmHg 35.0-45.0 pO2 (test code=PO2RT) 81.7 mmHg 80.0-110.0 HCO3? (test code=HCO3) 24.1 mmol/L 22.0-26.0 ARIADNA (test code=ARIADNA) 2.0 mmol/L -3.0-3.0 tHb (test code=THBRT) 13.7 g/dL 12.0-15.5 sO2 (test code=SO2RT) 96.1 % 92.0-100.0 FO2Hb (test code=WX4XZUQ) 94.4 % 94.0-100.0 FCOHb (test code=FCOHBRT) 0.6 % 0.0-3.0 FMetHb (test code=FMETHBRT) 1.1 % 0.2-0.6 ABGTEMP (test code=ABGTEMP) * Temp Corrected Values* ABGTEMP (test code=ABGTEMP.) 37.0 ?C pH (T) (test code=PHTEMP) 7.498 7.350-7.450 pCO2 (T) (test code=CYN4YLWM) 31.4 mmHg 35.0-45.0 pO2 (T) (test code=JJ8OGWL) 81.7 mmHg 80.0-110.0 Device (test code=DEVICE) ROOM [...] Radial Artery COMMENT (test code=CO) URINALYSIS WITH [id number] 11:20:00 Test Item Value Reference Range Comments [...] UR (test code=USPERM) /HPF NONE BRAIN NATRIURETIC [id number] 10:57:00 Test Item Value Reference Range Comments proBNP (test code=PBNP) 436 pg/mL 0-125 COMPREHENSIVE METABOLIC [id number] 10:56:00 Test Item Value Reference Range Comments [...] <=42 ALT (test code=31A) 19 IU/L <=78 [id number] 10:51:00 Test Item Value Reference Range Comments CPK (test code=32A) 129 IU/L 26-192 AMYLASE AND [id number] 10:51:00 Test Item Value Reference Range Comments AMYLASE (test code=10A) 23 U/L 28-100 LIPASE (test code=60A) 51 IU/L 73-393 TROPONIN [id number] 10:50:00 Test Item Value Reference Range Comments TROPONIN I (test code=A84) <0.015 ng/mL 0.000-0.045 PRO TIME AND [id number] 10:47:00 Test Item Value Reference Range Comments [...] or LMW Heparin. Order Code is ANTI-XA [id number] 10:47:00 Test Item Value Reference Range Comments D-DIMER (test code=DDI) 209 ng/mL D-DU 0-234 D-DIMER COMMENT (test *Level to rule out DVT or PE: code=DDCOM) <235 ng/mL D-DU* DIRECT INFLUENZA A AND B [id number] 10:45:00 Test Item Value Reference Range Comments Direct Exam (test code=DE1) PRESUMPTIVE NEGATIVE FOR THE PRESENCE OF INFLUENZA ANTIGEN XR CHEST 2 [id number] 10:41:59Exam: Chest x-ray 2 viewsHISTORY: Persistent coughLocation: [id number]:The heart size is normal and lung holcomb [...] NO NO RBC MORPH (test code=RBCMOR) NORMAL [id number] 14:47:00 Test Item Value Reference Range Comments [...] NEGATIVE NEGATIVE XR FOOT RIGHT COMPLETE 3 [id number] 14:27:27Right foot, 3 viewsLocation Code: [id number] HISTORY: [id number]: PainCOMMENTS: AP, lateral, and oblique views of the right foot demonstrate noacute fracture or malalignment. Dorsal soft tissue swelling noted.IMPRESSION: No acute osseous radiographic abnormality. Dorsal soft tissueswelling.CT ABDOMEN AND PELVIS WITH [id number] 13:38:45CT abdomen and pelvis with contrastLocation Code: [id number] HISTORY: Abdominal painCOMPARISON: 02/10/2018Technique: Helical CT of [...] fluid collection or free air.CT HEAD W/O [id number] 13:19:29CT brain without contrast.Location code: [id number] HISTORY: R51: HEADACHE COMPARISON: None.TECHNIQUE: Routine unenhanced [...] aerated. IMPRESSION: No acute intracranial abnormality.AMYLASE AND [id number] 13:05 :00 Test Item Value Reference Range Comments AMYLASE (test code=10A) 36 U/L 28-100 LIPASE (test code=60A) 67 IU/L 73-393 COMPREHENSIVE METABOLIC [id number] 13:05:00 Test Item Value Reference Range Comments [...] <=42 ALT (test code=31A) 14 IU/L <=78 [id number] 13:05:00 Test Item Value Reference Range Comments MAGNESIUM (test code=48A) 2.1 mg/dL 1.8-2.4 SERUM [id number] 12:53:00 Test Item Value Reference Range Comments PREG SRM (test code=PGS) NEGATIVE NEGATIVE URINALYSIS WITH [id number] 12:45:00 Test Item Value Reference Range Comments [...] (test code=USPERM) /HPF NONE PRO TIME AND [id number] 12:43:00 Test Item Value Reference Range Comments [...] NO RBC MORPH (test code=RBCMOR) NORMAL BLOOD [id number] 07:45:00 Test Item Value Reference Range Comments Culture Observations (test code=COB1) NO GROWTH AFTER 5 DAYS URINE [id number] 07:24:00 Test Item Value Reference Range Comments [...] NO NO RBC MORPH (test code=RBCMOR) NORMAL [id number] 06:25:00 Test Item Value Reference Range Comments MAGNESIUM (test code=48A) 1.5 mg/dL 1.8-2.4 BASIC METABOLIC [id number] 06:16:00 Test Item Value Reference Range Comments [...] mg/dL 8.3-9.5 NM HIDA SCAN W/ EJECTION [id number] 18:10:25HIDA scanLocation code: Y1Ljasmnoi history: Right upper quadrant painComments: Following the [...] minutes.Impression:1. No evidence of acute cholecystitis.BASIC METABOLIC [id number] 04:35:00 Test Item Value Reference Range Comments [...] NO RBC MORPH (test code=RBCMOR) NORMAL LACTIC [id number] 17:33:00 Test Item Value Reference Range Comments LACTIC ACD (test code=LA) 1.8 mmol/L 0.4-2.0 U/S [id number] 15:35:17LOCATION: [id number]: 47-year-old female with nausea and vomiting.COMMENT:Sonographic imaging [...] appearance of the abdomen is unremarkable.BASIC METABOLIC [id number] 07:27: 00 Test Item Value Reference Range [...] RBC MORPH (test code=RBCMOR) NORMAL URINALYSIS WITH [id number] 23:20:00 Test Item Value Reference Range Comments [...] code=USPERM) /HPF NONE XR CHEST 1 VIEW [id number] 16:08:04HISTORY: DyspneaLocation code: [id number] 10 February 2018FINDINGS: Frontal view of the chest demonstrates normal cardiomediastinalsilhouette. The trachea is midline. Minimal bibasilar atelectasis. Thelungsare otherwise clear. There is no effusion or pneumothorax. The bones areintact.IMPRESSION: Minimal bibasilar atelectasis.CLOSTRIDIUM DIFFICILE [id number] 11:11:00 Test Item Value Reference Range Comments Direct Exam (test code=DE1) NO CLOSTRIDIUM DIFFICILE TOXIN A/B DETECTED CBC WITH MANUAL [id number] 07:39:00 Test Item Value Reference Range Comments [...] NORMAL Few large plts code=PLTMOR) BASIC METABOLIC [id number] 06:01:00 Test Item Value Reference Range Comments [...] code=09D) 8.8 mg/dL 8.3-9.5 CBC WITH MANUAL [id number] 07:18:00 Test Item Value Reference Range Comments [...] MICROCYTIC (test code=MICRO) 1+ NONE BASIC METABOLIC [id number] 05:48:00 Test Item Value Reference Range Comments [...] code=09D) 8.8 mg/dL 8.3-9.5 MRI BRAIN W/O [id number] 18:15:41LOCATION: A1EXAM: MRI BRAIN W/O CONTRASTINDICATION: R51: [...] acute stroke. No acute abnormality.XR CENTRAL LINE [id number] 16:06:23EXAMINATION: NON- TUNNELED CENTRAL VENOUS CATHETER PLACEMENT.LOCATION: D4.HISTORY: The her central venous accessSEDATION: The patient did not require conscious sedation for the procedure.ANTIBIOTICS: None. Not indicated.TECHNIQUE: The risks, benefits, and alternatives were discussed and informedconsent was obtained. Prior to beginning the procedure, Dennis Protocol wasused to confirm the patient's identity [...] at the bedside according to standard hospitalprotocol.U/S [id number] 16:06:23EXAMINATION: NON-TUNNELED CENTRAL VENOUS CATHETER PLACEMENT.LOCATION: D4.HISTORY: The her central venous accessSEDATION: The patient did not require conscious sedation for the procedure.ANTIBIOTICS: None. Not indicated.TECHNIQUE: The risks, benefits, and alternatives were discussed and informedconsent was obtained. Prior to beginning the procedure, Dennis Protocol wasused to confirm the patient's identity [...] hospitalprotocol.CT ABDOMEN AND PELVIS WITH AND WITHOUT [id number] 15:59: 28Exam: CT abdomen and pelvis with and without contrast.Location: D4.History: [id number]: Abdominal [id number]: VomitingTechnique: Unenhanced and enhanced spiral slices were [...] enteritis.3. Nephrolithiasis.4. Small, fixed hiatalhernia.XR CHEST 1 [id number] 08:54: 41Portable AP chest, 1 viewLocation Code: S4UEROSNQT HISTORY: Chest painCOMPARISON: NoneCOMMENT: There is mild prominence of the central pulmonary vasculature and interstitium.Mild atelectasis is present within the lung bases. There is no lobarconsolidation or effusion. IMPRESSION: Mild central congestive changes and bibasilar atelectasis.XR ABDOMEN 1 VIEW [id number] 08:54:16Abdomen, 1 viewLocation Code: H4Lwvaoddb history: Lower abdominal painComments: The bowel gas pattern is unremarkable. There is no visualizedabnormal calcification. The visualized osseous structures are intact.Impression: No acute radiographic abnormality.GLUCOMETER GLUCOSE- LAB USE [id number] 07:50:00 Test Item Value Reference Range Comments GLUCOMETER (test code=GMG) 157 mg/dL 70-100 CLEANED METERMeter ID: [id number]: [id number] СВЕТЛАНА DAIN CBC WITH MANUAL [id number] 06:57:00 Test Item Value Reference Range Comments [...] NONE MACRO (test code=MACRO) 1+ NONE TROPONIN [id number] 05:58:00 Test Item Value Reference Range Comments TROPONIN I (test code=A84) <0.015 ng/mL 0.000-0.045 COMPREHENSIVE METABOLIC [id number] 05:44:00 Test Item Value Reference Range Comments [...] 13 IU/L <=78 GLUCOMETER GLUCOSE- LAB USE [id number] 01:52:00 Test Item Value Reference Range Comments GLUCOMETER (test code=GMG) 110 mg/dL 70-100 Meter ID: [id number]: [id number] GAIL CIFUENTES TROPONIN [id number] 00:02:00 Test Item Value Reference Range Comments TROPONIN I (test code=A84) <0.015 ng/mL 0.000-0.045
[2019-05-17] MEDS ORDERED: ONDANSETRON 4 MG/2 ML VIAL ONE (04:26)
[2019-05-17] MEDS ORDERED: NA CHLORIDE 0.9% 1,000 ML ONE (04:26)
[2019-05-17] MEDS ORDERED: MORPHINE 4 MG/ML SYR ONE (04:48)
[2019-05-17 04:57] LABS: Absolute Lymphocytes (CBC) 0.9 K/uL (0.7-4.9); Basophils % 0.3 % (0-1.3); Hematocrit 36.1 % (36.0-45.0); MPV 8.6 fL (7.6-11.3); RBC Red Blood Cell Count 3.81 M/uL (3.86-4.86)
[2019-05-17 05:13] LABS: Albumin 4.2 g/dL (3.4-5.0); Bilirubin Direct 0.2 mg/dL (0-0.2); Bilirubin Total 0.7 mg/dL (0.2-1.0); Protein, Total 7.6 g/dL (6.4-8.2)
[2019-05-17 05:14] LABS: Potassium 2.6 mmol/L (3.5-5.1)
[2019-05-17 05:36] LABS: Blood Morphology Comment NOT SEEN (NOT SEEN); Platelet Estimate ADEQ
[2019-05-17] MEDS ORDERED: POTASSIUM 25 MEQ EFFERV TAB ONE (06:54)
[2019-05-17] MEDS ORDERED: KCL 20 MEQ/100 mL IVPB 20 MEQ/100 ML BAG IV ONE (06:55)
[2019-05-17] MEDS ORDERED: NA CHLORIDE 0.9% 500 ML ONE (07:00)
--- NOTE | 2019-05-17 07:53 | ER ---
Nurse's Notes [facility] Name: Margie Garcia Age: 48 yrs Sex: Female : 1970 Arrival Date: 05/17/2019 Time: 04:18 Bed 7 Private MD: Diagnosis: Vomiting, unspecified;Dehydration;Hypokalemia Presentation: 05/17 04:15 Presenting complaint: Patient states: vomiting started 3-4 days ago, abdominal pain, rr5 pain score 9/10. Transition of care: patient was not received from another setting of care. Onset of symptoms was May 14, 2019. Risk Assessment: Do you want to hurt yourself or someone else? Patient reports no desire to harm self or others. Initial Sepsis Screen: Does the patient meet any 2 criteria? No. Patient's initial sepsis screen is negative. Does the patient have a suspected source of infection? No. Patient's initial sepsis screen is negative. Note patient is having chronic migraine too as verbalized by the management internship. Care prior to arrival: None. 04:15 Method Of Arrival: Wheelchair rr5 04:15 Acuity: BHARAT 3 rr5 Triage Assessment: 04:20 General: Appears in no apparent distress. uncomfortable. GI: Reports lower abdominal cc3 pain, upper abdominal pain, vomiting, since 4 days. 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 - Social history:: Smoking status: Patient uses tobacco products, smokes one-half pack cigarettes per day. - Ebola Screening: : Patient negative for fever greater than or equal to 101.5 degrees Fahrenheit, and additional compatible Ebola Virus Disease symptoms Patient denies exposure to infectious person Patient denies travel to an Ebola-affected area in the 21 days before illness onset. Screenin:24 Abuse screen: Denies threats or abuse. Denies injuries from another. Nutritional rr5 screening: No deficits noted. Tuberculosis screening: No symptoms or risk factors identified. Fall Risk IV access (20 points). Total Prince Fall Scale indicates No Risk (0-24 pts). Assessment: 04:20 General: Appears in no apparent distress. uncomfortable, Behavior is anxious. Pain: cc3 Complains of pain in head, abdomen. Neuro: Level of Consciousness is awake, alert, obeys commands, Oriented to person, place, time, situation, Appropriate for age. Cardiovascular: Denies chest pain, Heart tones S1 S2 present Capillary refill < 3 seconds in bilateral fingers Patient's skin is warm and dry. Respiratory: Airway is patent Respiratory effort is even, unlabored, Respiratory pattern is regular, symmetrical, Breath sounds are clear bilaterally. GI: Abdomen is round non-distended, Bowel sounds present X 4 quads. Abd is soft and non tender X 4 quads. : No signs and/or symptoms were reported regarding the genitourinary system. EENT: No signs and/or symptoms were reported regarding the EENT system. Derm: Skin is intact, is healthy with good turgor, Skin is pink, warm \T\ dry. normal. Musculoskeletal: Circulation, motion, and sensation intact. Range of motion: intact in all extremities. 05:35 Reassessment: Patient appears in no apparent distress at this time. Patient and/or cc3 family updated on plan of care and expected duration. Pain level reassessed. Patient is alert, oriented x 3, equal unlabored respirations, skin warm/dry/pink. Patient came back from CT scan department, awaiting result. Patient denies pain at this time. Patient states feeling better. Patient states symptoms have improved. 06:09 Reassessment: Patient appears in no apparent distress at this time. Patient and/or cc3 family updated on plan of care and expected duration. Pain level reassessed. Patient is alert, oriented x 3, equal unlabored respirations, skin warm/dry/pink. Patient denies pain at this time. Patient states feeling better. Patient states symptoms have improved. 07:00 Reassessment: Patient appears in no apparent distress at this time. Patient and/or jl7 family updated on plan of care and expected duration. Pain level reassessed. Patient is alert, oriented x 3, equal unlabored respirations, skin warm/dry/pink. 08:09 Reassessment: Pt will be discharged once Potassium is done infusing. jl7 Vital Signs: 04:15 BP 151 / 96; Pulse 95; Resp 17; Temp 98; Pulse Ox 99% ; Weight 65.77 kg; Height 5 ft. 6 rr5 in. (167.64 cm); Pain 9/10; 05:30 BP 165 / 94; Pulse 96; Resp 17 S; Pulse Ox 100% on R/A; Pain 2/10; cc3 06:18 BP 167 / 104; Pulse 97; Resp 18 S; Pulse Ox 98% on R/A; Pain 0/10; cc3 06:32 BP 163 / 94; Pulse 92; Resp 17 S; Pulse Ox 97% on R/A; Pain 0/10; cc3 07:30 BP 158 / 100; Pulse 98; Resp 16 S; Pulse Ox 94% on R/A; jl7 09:02 BP 164 / 103; Pulse 90; Resp 16 S; Pulse Ox 97% on R/A; jl7 04:15 Body Mass Index 23.40 (65.77 kg, 167.64 cm) rr5 ED Course: 04:15 Arm band placed on left wrist. rr5 04:18 Patient arrived in ED. rr5 04:20 Jose Eduardo Aviles MD is Attending Physician. tw4 04:21 Triage completed. rr5 04:24 Patient has correct armband on for positive identification. Bed in low position. Call rr5 light in reach. Side rails up X2. Pulse ox on. NIBP on. 04:30 Missed attempt(s): 22 gauge in left antecubital area. blood collected and sent to lab. cc3 Bleeding controlled, band aid applied, catheter tip intact. 04:40 Missed attempt(s): 22 gauge in right forearm. upper arm. Bleeding controlled, band aid rr5 applied, catheter tip intact. 04:48 Inserted saline lock: 20 gauge in right EJ, using aseptic technique. aa1 04:52 Laci Fink, MARCK is Primary Nurse. rr5 04:52 Krystina Vick is Primary Nurse. cc3 04:53 Radiology exam delayed due to lab results not completed at this time. (BUN/Creatinine). kw1 05:14 Notified ED physician of a critical lab result(s). potassium 2.6. aa1 05:45 CT completed. Pt tolerated procedure poorly. Patient moved to CT via stretcher. Patient eh moved back from CT. 05:47 Abdomen In Process Unspecified. EDMS 07:00 Report given to MARCK Louie and MARCK Irvin. cc3 08:08 Albaro Felipe, MARCK is Primary Nurse. jl7 09:02 No provider procedures requiring assistance completed. IV discontinued, intact, jl7 bleeding controlled, No redness/swelling at site. Pressure dressing applied. Administered Medications: 04:45 Drug: NS 0.9% 1000 ml {Note: right EJ.} Route: IV; Rate: 1 bolus; Site: Other; cc3 05:40 Follow up: Response: No adverse reaction; IV Status: Completed infusion; IV Intake: cc3 1000ml 04:50 Drug: Zofran 4 mg Route: IVP; Site: right jugular; rr5 05:17 Follow up: Response: No adverse reaction; Nausea is decreased; Vomiting decreased cc3 04:52 Drug: morphine 4 mg {Note: rass 0.} Route: IVP; Site: right jugular; rr5 05:16 Follow up: Response: No adverse reaction; Pain is decreased; RASS: Alert and Calm (0) cc3 06:55 Drug: Potassium Effervescent Tablet 50 mEq Route: PO; cc3 09:01 Follow up: Response: No adverse reaction jl7 07:00 Drug: Potassium Chloride 20 mEq {Note: right EJ.} Route: IV; Rate: calculated rate; cc3 Site: Other; 09:01 Follow up: Response: No adverse reaction; IV Status: Completed infusion jl7 08:55 Drug: Phenergan 12.5 mg Route: IVP; Site: right jugular; jl7 09:01 Follow up: Response: No adverse reaction; Nausea is decreased jl7 Intake: 05:40 IV: 1000ml; Total: 1000ml. cc3 Outcome: 07:52 Discharge ordered by . tw4 09:03 Discharged to home via wheelchair, with family. jl7 09:03 Condition: stable 09:03 Discharge instructions given to patient, family, Instructed on discharge instructions, follow up and referral plans. medication usage, Demonstrated understanding of instructions, follow-up care, medications, Prescriptions given X 1. 09:04 Patient left the ED. jl7 Signatures: Dispatcher [employer] EDMS Geeta Betancourt RN RN aa1 Jermaine Aparicio Jahala, RN RN jl7 Sasha Gleason kw1 Jose Eduardo Aviles MD MD tw4 Krystina Vick cc3 Laci Fink, RN RN rr5 Corrections: (The following items were deleted from the chart) 06:19 06:09 Reassessment: Patient appears in no apparent distress at this time. Patient cc3 and/or family updated on plan of care and expected duration. Pain level reassessed. Patient is alert, oriented x 3, equal unlabored respirations, skin warm/dry/pink. cc3
--- NOTE | 2019-05-17 07:53 | EDPHYS ---
Physician Documentation [facility] Name: Margie Garcia Age: 48 yrs Sex: Female : 1970 Arrival Date: 05/17/2019 Time: 04:18 Bed 7 Private MD: ED Physician Jose Eduardo Aviles HPI: 05/18 02:15 This 48 yrs old Female presents to ER via Wheelchair with complaints of tw4 Vomiting. 02:15 The patient presents to the emergency department with nausea, vomiting. Onset: The tw4 symptoms/episode began/occurred 4 day(s) ago. Possible causes: unknown. The symptoms are aggravated by nothing. The symptoms are alleviated by nothing. Associated signs and symptoms: The patient has no apparent associated signs or symptoms. Severity of symptoms: At their worst the symptoms were moderate in the emergency department the symptoms are unchanged. The patient has not experienced similar symptoms in the past. 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 - Social history:: Smoking status: Patient uses tobacco products, smokes one-half pack cigarettes per day. - Ebola Screening: : Patient negative for fever greater than or equal to 101.5 degrees Fahrenheit, and additional compatible Ebola Virus Disease symptoms Patient denies exposure to infectious person Patient denies travel to an Ebola-affected area in the 21 days before illness onset. ROS: 05/18 02:15 Constitutional: Negative for fever, chills, and weight loss, Eyes: Negative for injury, tw4 pain, redness, and discharge, Cardiovascular: Negative for chest pain, palpitations, and edema, Respiratory: Negative for shortness of breath, cough, wheezing, and pleuritic chest pain, Back: Negative for injury and pain, MS/Extremity: Negative for injury and deformity, Skin: Negative for injury, rash, and discoloration, Neuro: Negative for headache, weakness, numbness, tingling, and seizure. Abdomen/GI: Positive for abdominal pain, nausea and vomiting, nausea, vomiting, abdominal cramps, abdominal distension, Negative for dysphagia, hematemesis, black/tarry stool, rectal pain, rectal bleeding, bowel incontinence, flatulence. Exam: 02:15 Head/Face: Normocephalic, atraumatic. Eyes: Pupils equal round and reactive to light, tw4 extra-ocular motions intact. Lids and lashes normal. Conjunctiva and sclera are non-icteric and not injected. Cornea within normal limits. Periorbital areas with no swelling, redness, or edema. Chest/axilla: Normal chest wall appearance and motion. Nontender with no deformity. No lesions are appreciated. Cardiovascular: Regular rate and rhythm with a normal S1 and S2. No gallops, murmurs, or rubs. Normal PMI, no JVD. No pulse deficits. Respiratory: Lungs have equal breath sounds bilaterally, clear to auscultation and percussion. No rales, rhonchi or wheezes noted. No increased work of breathing, no retractions or nasal flaring. Abdomen/GI: Soft, non-tender, with normal bowel sounds. No distension or tympany. No guarding or rebound. No evidence of tenderness throughout. Skin: Warm, dry with normal turgor. Normal color with no rashes, no lesions, and no evidence of cellulitis. MS/ Extremity: Pulses equal, no cyanosis. Neurovascular intact. Full, normal range of motion. Neuro: Awake and alert, GCS 15, oriented to person, place, time, and situation. Cranial nerves II-XII grossly intact. Motor strength 5/5 in all extremities. Sensory grossly intact. Cerebellar exam normal. Normal gait. 02:15 Constitutional: The patient appears in obvious distress, moderately distressed. Vital Signs: 05/17 04:15 BP 151 / 96; Pulse 95; Resp 17; Temp 98; Pulse Ox 99% ; Weight 65.77 kg; Height 5 ft. 6 rr5 in. (167.64 cm); Pain 9/10; 05:30 BP 165 / 94; Pulse 96; Resp 17 S; Pulse Ox 100% on R/A; Pain 2/10; cc3 06:18 BP 167 / 104; Pulse 97; Resp 18 S; Pulse Ox 98% on R/A; Pain 0/10; cc3 06:32 BP 163 / 94; Pulse 92; Resp 17 S; Pulse Ox 97% on R/A; Pain 0/10; cc3 07:30 BP 158 / 100; Pulse 98; Resp 16 S; Pulse Ox 94% on R/A; jl7 09:02 BP 164 / 103; Pulse 90; Resp 16 S; Pulse Ox 97% on R/A; jl7 04:15 Body Mass Index 23.40 (65.77 kg, 167.64 cm) rr5 MDM: 04:20 Patient medically screened. tw4 05/18 02:17 Differential diagnosis: Nonspecific abd pain, gastritis, cholecystitis, pancreatitis, tw4 appendicitis, diverticulitis, viral gastroenteritis. Data reviewed: vital signs, nurses notes. Data interpreted: Pulse oximetry: Interpretation: normal. Counseling: I had a detailed discussion with the patient and/or guardian regarding: the historical points, exam findings, and any diagnostic results supporting the discharge/admit diagnosis, radiology results. Medication response: Zofran relieved the patient's nausea. Response to treatment: the patient's symptoms have resolved after treatment, and as a result, I will discharge patient. Special discussion: Based on the patient's Hx, exam, and Dx evaluation, there is no indication for emergent surgery or inpatient Tx. It is understood by the patient/guardian that if the Sx's persist or worsen they need to return immediately for re-evaluation. I discussed with the patient/guardian in detail that at this point there is no indication for admission to the hospital. It is understood, however, that if the symptoms persist or worsen the patient needs to return immediately for re-evaluation. 05/17 04:22 Order name: Basic Metabolic Panel; Complete Time: 06:43 4 05/17 06:43 Interpretation: Normal except: K 2.6; CO2 20; GLUC 170; GFR 45. 05/17 04:22 Order name: CBC with Diff; Complete Time: 06:43 4 05/17 06:44 Interpretation: Normal except: WBC 13.1; RBC 3.81; MN% 2.0; LYM% 7.0; JARAD% 90.7. 05/17 04:22 Order name: Creatinine for Radiology; Complete Time: 06:43 tw4 05/17 06:44 Interpretation: Within normal limits: CRE 1.26. tw4 05/17 04:22 Order name: Hepatic Function; Complete Time: 06:43 tw4 05/17 06:44 Interpretation: Within normal limits. tw4 05/17 04:22 Order name: Lipase; Complete Time: 06:43 tw4 05/17 06:44 Interpretation: Within normal limits: LIP 29. tw4 05/17 05:04 Order name: Manual Differential; Complete Time: 06:43 EDMS 05/17 06:44 Interpretation: Normal except: SEGS 91; LYM 6. tw4 05/17 05:27 Order name: Abdomen EDMS 05/17 04:22 Order name: IV Saline Lock; Complete Time: 04:52 tw4 05/17 04:22 Order name: Labs collected and sent; Complete Time: 04:42 tw4 Administered Medications: 05/17 04:45 Drug: NS 0.9% 1000 ml {Note: right EJ.} Route: IV; Rate: 1 bolus; Site: Other; cc3 05:40 Follow up: Response: No adverse reaction; IV Status: Completed infusion; IV Intake: cc3 1000ml 04:50 Drug: Zofran 4 mg Route: IVP; Site: right jugular; rr5 05:17 Follow up: Response: No adverse reaction; Nausea is decreased; Vomiting decreased cc3 04:52 Drug: morphine 4 mg {Note: rass 0.} Route: IVP; Site: right jugular; rr5 05:16 Follow up: Response: No adverse reaction; Pain is decreased; RASS: Alert and Calm (0) cc3 06:55 Drug: Potassium Effervescent Tablet 50 mEq Route: PO; cc3 09:01 Follow up: Response: No adverse reaction jl7 07:00 Drug: Potassium Chloride 20 mEq {Note: right EJ.} Route: IV; Rate: calculated rate; cc3 Site: Other; 09:01 Follow up: Response: No adverse reaction; IV Status: Completed infusion jl7 08:55 Drug: Phenergan 12.5 mg Route: IVP; Site: right jugular; jl7 09:01 Follow up: Response: No adverse reaction; Nausea is decreased jl7 Disposition: 05/17/19 07:52 Discharged to Home. Impression: Vomiting, unspecified, Dehydration, Hypokalemia. - Condition is Stable. - Discharge Instructions: Dehydration, Adult, Nausea and Vomiting, Adult, Hypokalemia, Nausea, Adult, [id number], Nausea and Vomiting, Pediatric. - Prescriptions for Zofran 4 mg Oral Tablet - take 1 tablet by ORAL route every 12 hours As needed; 6 tablet. - Medication Reconciliation Form, Thank You Letter, Antibiotic Education, Prescription Opioid Use form. - Follow up: Private Physician; When: Upon discharge from the Emergency Department; Reason: Recheck today's complaints, Continuance of care. - Problem is new. - Symptoms have improved. Signatures: Dispatcher [employer] [facility] Albaro Felipe, RN RN jl7 Jose Eduardo Aviles MD MD tw4 Krystina Vick cc3 Laci Fink, RN RN rr5 Corrections: (The following items were deleted from the chart) 05:27 04:48 Abdomen Pelvis W Con+CT.RAD.BRZ ordered. [facility] 09:04 07:52 05/17/2019 07:52 Discharged to Home. Impression: Vomiting, unspecified; jl7 Dehydration; Hypokalemia. Condition is Stable. Forms are Medication Reconciliation Form, Thank You Letter, Antibiotic Education, Prescription Opioid Use. Follow up: Private Physician; When: Upon discharge from the Emergency Department; Reason: Recheck today's complaints, Continuance of care. Problem is new. Symptoms have improved. tw4
[2019-05-17] MEDS ORDERED: PROMETHAZINE 25 MG/ML VIAL ONE (08:51)
[2019-05-17 09:53] VITALS: TEMP 98
[2019-05-17 10:00] VITALS: BP 164/103; O2SAT 97
--- NOTE | 2019-05-17 10:46 | RAD REPORT ---
EXAM DESCRIPTION: CT Abdomen and Pelvis Without Intravenous Contrast CLINICAL HISTORY: The patient is 48 years old and is Female; ABD PAIN TECHNIQUE: Axial computed tomography images of the abdomen and pelvis without intravenous contrast. Sagittal and coronal reformatted images were created and reviewed. This CT exam was performed usi ng one or more of the following dose reduction techniques: automated exposure control, adjustment o f the mA and/or kV according to patient size, and/or use of iterative reconstruction technique. COMPARISON: No relevant prior studies available. FINDINGS: LUNG BASES: Unremarkable. No mass. No consolidation. HEART: A small pericardial effusion is present. MEDIASTINUM: A small hiatal hernia is present. ABDOMEN: LIVER: A 0.9 cm low attenuating lesion within the left hepatic lobe is present suggestive of a c yst. GALLBLADDER AND BILE DUCTS: No calcified stones. No ductal dilation. PANCREAS: Fatty infiltration of the pancreas is present. No ductal dilation. SPLEEN: Unremarkable. ADRENALS: Unremarkable. No mass. KIDNEYS AND URETERS: Bilateral nonspecific perinephric stranding is present. Bilateral intrarena l calcifications are present. There is no hydronephrosis or hydroureter of either kidney. No obstruct ing renal calculus is seen. STOMACH AND BOWEL: The stomach is minimally fluid filled. The small bowel is relatively normal i n caliber. Stool is present throughout colon. Suggestion of mild mucosal thickening involving the rig ht colon is noted. There is no bowel obstruction. PELVIS: APPENDIX: The appendix is normal in caliber without surrounding inflammation. BLADDER: Unremarkable. No stones. REPRODUCTIVE: Unremarkable as visualized. ABDOMEN and PELVIS: INTRAPERITONEAL SPACE: Unremarkable. No free air. No significant fluid collection. BONES/JOINTS: Minimal degenerative change of the lower lumbar spine is present. SOFT TISSUES: The soft tissues are normal. VASCULATURE: Unremarkable. No abdominal aortic aneurysm. LYMPH NODES: Unremarkable. No enlarged lymph nodes. IMPRESSION: 1. Suggestion of mucosal thickening involving the right colon which may be secondary t o a mild colitis. 2. Bilateral nephrolithiasis without obstruction. Electronically signed by: Anna Bryant MD 05/17/2019 6:07 AM SPECIAL TAX AUDITOR Due to temporary technical issues with the PACS/Fluency reporting system, reports are being signed by the in house radiologist as a courtesy to ensure prompt reporting. The interpreting radiologist is f ully responsible for the content of the report.
== END 2019-05-17 09:04 | disposition home or self-care (01) ==
LOC: ER 04:05
DX: E86.0 Dehydration (principal); E87.6 Hypokalemia; I10 Essential (primary) hypertension; F17.210 Nicotine dependence, cigarettes, uncomplicated; Z88.8 Allergy status to other drugs, medicaments and biological substances
CPT/HCPCS: 96365; 96361; 85025; 80048; 36415; 80076; 83690; 74176; 96375; 99284; 96366; J2550; J7040; J7030; J2405

== ENCOUNTER 2019-08-26 07:06 | Emergency (ER) | payer BC ==
--- OUTSIDE RECORDS SUMMARY | 2019-08-26 07:12 | XMS REPORT ---
:1970 [facility] [address] [place] [address] Care Team Providers Name Role Phone DR [...] Department ID 2019-01-21 2019-01-24 Inpatient E AZIZA [facility] [place] TELE [id number] 17:51:00 13:13:00 CAS 2018-07-16 2018-07-19 Outpatient E TONNY, [facility] [place] TELE [id number] 15:24:00 14:47:00 LESTER 2018-06-30 2018-07-01 Outpatient E ELEANOR, [facility] [id number] 16:03:00 17:15:00 DYLON 2018-05-17 2018-05-17 Emergency E WILLIAM [facility] [id number] 13:38:00 15:27:00 PATI 2018-03-09 2018-03-09 Emergency E CHRIS, [facility] [id number] 10:29:00 14:00:00 ANDREW Results Test Description Test [...] code=09D) 8.3 mg/dL 8.3-9.5 CBC (INCLUDES AUTOMATED DIFFERENTIAL)*[id number] 05:53:00 Test Item Value Reference Range Comments [...] code=48A) 2.0 mg/dL 1.8-2.4 CBC (INCLUDES AUTOMATED DIFFERENTIAL)*[id number] 05:59:00 Test Item Value Reference Range Comments [...] code=A84) <0.015 ng/mL 0.000-0.045 CBC (INCLUDES AUTOMATED DIFFERENTIAL)*[id number] 06:06:00 Test Item Value Reference Range Comments [...] code=09D) 8.7 mg/dL 8.3-9.5 CBC (INCLUDES AUTOMATED DIFFERENTIAL)*[id number] 06:00:00 Test Item Value Reference Range Comments [...] RBC MORPH (test code=WRBCMOR) NORMAL URINALYSIS WITH [id number] 21:55:00 Test Item Value Reference Range Comments [...] UR (test code=USPERM) /HPF NONE DRUGS OF [id number] 21:55:00 Test Item Value Reference Range Comments [...] 2000 ng/mL CT ABDOMEN AND PELVIS WITH [id number] 21:03:20Exam: CT abdomen and pelvis with contrast.Location: [...] findings.2. Nephrolithiasis.3. Otherwise unremarkable exam.CT CHEST W/ [id number] 21:02:21Chest CT with contrast.Location Code: Q4MHUEVCSL HISTORY: chest pain, vomitingCOMPARISON: NoneTechnique: Helical CT [...] atelectasis and otherwise unremarkable exam.CT HEAD W/O [id number] 20:54:59Clinical History: Headache. Location: D4.Findings: Multislice axial [...] patientsize, and/or utilization of iterative reconstruction technique.OCCULT [id number] 20:16:00 Test Item Value Reference Range Comments Direct Exam (test code=DE1) POSITIVE FOR OCCULT BLOOD [id number] 20:03:00 Test Item Value Reference Range Comments D-DIMER (test code=DDI) <200 ng/mL D-DU 0-234 D-DIMER COMMENT (test *Level to rule out DVT or PE: code=DDCOM) <235 ng/mL D-DU* PRO TIME AND [id number] 20:03:00 Test Item Value Reference Range Comments [...] or LMW Heparin. Order Code is ANTI-XA [id number] 20:02:00 Test Item Value Reference Range Comments CPK (test code=32A) 140 IU/L 26-192 COMPREHENSIVE METABOLIC [id number] 20:02:00 Test Item Value Reference Range Comments [...] ALT (test code=31A) 18 IU/L <=78 TROPONIN [id number] 19:55:00 Test Item Value Reference Range Comments TROPONIN I (test code=A84) <0.015 ng/mL 0.000-0.045 XR CHEST 1 VIEW [id number] 19:40:49Exam: Chest portable erectLocation: H 12History: chest [...] MANDIFF (test code=MDIFF) NO NO COMPREHENSIVE METABOLIC [id number] 04:10:00 Test Item Value Reference Range Comments [...] RBC MORPH (test code=RBCMOR) NORMAL BASIC METABOLIC [id number] 05:47:00 Test Item Value Reference Range Comments [...] CALCIUM (test code=09D) 8.3 mg/dL 8.3-9.5 CARDIAC [id number] 02:45:00 Test Item Value Reference Range Comments TROPONIN I (test code=A84) 0.059 ng/mL 0.000-0.045 CARDIAC [id number] 18:36:00 Test Item Value Reference Range Comments TROPONIN I (test code=A84) 0.059 ng/mL 0.000-0.045 CT ABDOMEN AND PELVIS WITH [id number] 15:14:52EXAM: CT abdomen and pelvis with contrastLocation: [...] iterative reconstruction technique.DLP: 1534 mGy-cm CTDI 28 [id number] 13:05:00 Test Item Value Reference Range Comments MAGNESIUM (test code=48A) 1.9 mg/dL 1.8-2.4 CT HEAD W/O [id number] 12:54:16EXAM: CT head without contrastLocation: T0VCQFGLMDDM: NoneINDICATION: HeadacheTECHNIQUE: Axial images of the brain [...] technique.DLP: 854 mGy- cmCTDI 45 mGyDRUGS OF [id number] 12:54:00 Test Item Value Reference Range Comments [...] 200 ng/mL Opiates 2000 ng/mL URINALYSIS WITH [id number] 12:46:00 Test Item Value Reference Range Comments [...] SPERM UR (test code=USPERM) /HPF NONE URINE [id number] 12:39:00 Test Item Value Reference Range Comments PREG UR (test code=PGU) NEGATIVE NEGATIVE COMPREHENSIVE METABOLIC [id number] 12:37:00 Test Item Value Reference Range Comments [...] (test code=31A) 17 IU/L <=78 AMYLASE AND [id number] 12:34:00 Test Item Value Reference Range Comments AMYLASE (test code=10A) 53 U/L 28-100 LIPASE (test code=60A) 45 IU/L 73-393 TROPONIN [id number] 12:33:00 Test Item Value Reference Range Comments TROPONIN I (test code=A84) 0.087 ng/mL 0.000-0.045 [id number] 12:26:00 Test Item Value Reference Range Comments [...] MORPH (test code=RBCMOR) NORMAL DIRECT STREP GROUP [id number] 07:45:00 Test Item Value Reference Range Comments Culture Observations (test NO BETA HEMOLYTIC code=COB1) STREPTOCOCCUS ISOLATED Direct Exam (test code=DE1) NO STREPTOCOCCUS GROUP A ANTIGEN DETECTED THYROID PANEL/SCREEN (TSH)2018-07-01 05:50:00 Test Item Value Reference Range Comments TSH (test code=A57) 0.453 uIU/mL 0.358-3.740 CARDIAC [id number] 05:16:00 Test Item Value Reference Range Comments TROPONIN I (test code=A84) <0.015 ng/mL 0.000-0.045 BASIC METABOLIC [id number] 04:55:00 Test Item Value Reference Range Comments [...] NO RBC MORPH (test code=RBCMOR) NORMAL CARDIAC [id number] 21:20:00 Test Item Value Reference Range Comments TROPONIN I (test code=A84) <0.015 ng/mL 0.000-0.045 URINE [id number] 17:31:00 Test Item Value Reference Range Comments PREG UR (test code=PGU) NEGATIVE NEGATIVE U/S [id number] 13:56:23EXAMINATION: U/S GALLBLADDER.LOCATION: D4.HISTORY: Right upper quadrant [...] 06/30/[address] ABDOMEN AND PELVIS WITH [id number] 12:09:32EXAMINATION: CT ABDOMEN AND PELVIS WITH CONTRAST.LOCATION: [...] consultation and colonoscopy.Bilateral nephrolithiasis.Atherosclerotic vascular calcifications.Arterial Blood [id number] 12:05:00 Test Item Value Reference Range Comments pH (test code=PHRT) 7.498 7.350-7.450 pCO2 (test code=PCO2RT) 31.4 mmHg 35.0-45.0 pO2 (test code=PO2RT) 81.7 mmHg 80.0-110.0 HCO3? (test code=HCO3) 24.1 mmol/L 22.0-26.0 ARIADNA (test code=ARIADNA) 2.0 mmol/L -3.0-3.0 tHb (test code=THBRT) 13.7 g/dL 12.0-15.5 sO2 (test code=SO2RT) 96.1 % 92.0-100.0 FO2Hb (test code=DC1SCCD) 94.4 % 94.0-100.0 FCOHb (test code=FCOHBRT) 0.6 % 0.0-3.0 FMetHb (test code=FMETHBRT) 1.1 % 0.2-0.6 ABGTEMP (test code=ABGTEMP) * Temp Corrected Values* ABGTEMP (test code=ABGTEMP.) 37.0 ?C pH (T) (test code=PHTEMP) 7.498 7.350-7.450 pCO2 (T) (test code=QXJ1FWTC) 31.4 mmHg 35.0-45.0 pO2 (T) (test code=KK4TSEF) 81.7 mmHg 80.0-110.0 Device (test code=DEVICE) ROOM [...] Radial Artery COMMENT (test code=CO) URINALYSIS WITH [id number] 11:20:00 Test Item Value Reference Range Comments [...] UR (test code=USPERM) /HPF NONE BRAIN NATRIURETIC [id number] 10:57:00 Test Item Value Reference Range Comments proBNP (test code=PBNP) 436 pg/mL 0-125 COMPREHENSIVE METABOLIC [id number] 10:56:00 Test Item Value Reference Range Comments [...] <=42 ALT (test code=31A) 19 IU/L <=78 [id number] 10:51:00 Test Item Value Reference Range Comments CPK (test code=32A) 129 IU/L 26-192 AMYLASE AND [id number] 10:51:00 Test Item Value Reference Range Comments AMYLASE (test code=10A) 23 U/L 28-100 LIPASE (test code=60A) 51 IU/L 73-393 TROPONIN [id number] 10:50:00 Test Item Value Reference Range Comments TROPONIN I (test code=A84) <0.015 ng/mL 0.000-0.045 PRO TIME AND [id number] 10:47:00 Test Item Value Reference Range Comments [...] or LMW Heparin. Order Code is ANTI-XA [id number] 10:47:00 Test Item Value Reference Range Comments D-DIMER (test code=DDI) 209 ng/mL D-DU 0-234 D-DIMER COMMENT (test *Level to rule out DVT or PE: code=DDCOM) <235 ng/mL D-DU* DIRECT INFLUENZA A AND B [id number] 10:45:00 Test Item Value Reference Range Comments Direct Exam (test code=DE1) PRESUMPTIVE NEGATIVE FOR THE PRESENCE OF INFLUENZA ANTIGEN XR CHEST 2 [id number] 10:41:59Exam: Chest x-ray 2 viewsHISTORY: Persistent coughLocation: R5TEXMONRG:The heart size is normal and lung holcomb [...] NO NO RBC MORPH (test code=RBCMOR) NORMAL [id number] 14:47:00 Test Item Value Reference Range Comments [...] NEGATIVE NEGATIVE XR FOOT RIGHT COMPLETE 3 [id number] 14:27:27Right foot, 3 viewsLocation Code: D6PBWKXFKH HISTORY: [id number]: PainCOMMENTS: AP, lateral, and oblique views of the right foot demonstrate noacute fracture or malalignment. Dorsal soft tissue swelling noted.IMPRESSION: No acute osseous radiographic abnormality. Dorsal soft tissueswelling.CT ABDOMEN AND PELVIS WITH [id number] 13:38:45CT abdomen and pelvis with contrastLocation Code: W2JQIBQBRS HISTORY: Abdominal painCOMPARISON: 02/10/2018Technique: Helical CT of [...] fluid collection or free air.CT HEAD W/O [id number] 13:19:29CT brain without contrast.Location code: U3QXONDLIW HISTORY: R51: HEADACHE COMPARISON: None.TECHNIQUE: Routine unenhanced [...] aerated. IMPRESSION: No acute intracranial abnormality.AMYLASE AND [id number] 13:05 :00 Test Item Value Reference Range Comments AMYLASE (test code=10A) 36 U/L 28-100 LIPASE (test code=60A) 67 IU/L 73-393 COMPREHENSIVE METABOLIC [id number] 13:05:00 Test Item Value Reference Range Comments [...] <=42 ALT (test code=31A) 14 IU/L <=78 [id number] 13:05:00 Test Item Value Reference Range Comments MAGNESIUM (test code=48A) 2.1 mg/dL 1.8-2.4 SERUM [id number] 12:53:00 Test Item Value Reference Range Comments PREG SRM (test code=PGS) NEGATIVE NEGATIVE URINALYSIS WITH [id number] 12:45:00 Test Item Value Reference Range Comments [...] (test code=USPERM) /HPF NONE PRO TIME AND [id number] 12:43:00 Test Item Value Reference Range Comments [...] NO RBC MORPH (test code=RBCMOR) NORMAL BLOOD [id number] 07:45:00 Test Item Value Reference Range Comments Culture Observations (test code=COB1) NO GROWTH AFTER 5 DAYS URINE [id number] 07:24:00 Test Item Value Reference Range Comments [...] NO NO RBC MORPH (test code=RBCMOR) NORMAL [id number] 06:25:00 Test Item Value Reference Range Comments MAGNESIUM (test code=48A) 1.5 mg/dL 1.8-2.4 BASIC METABOLIC [id number] 06:16:00 Test Item Value Reference Range Comments [...] mg/dL 8.3-9.5 NM HIDA SCAN W/ EJECTION [id number] 18:10:25HIDA scanLocation code: A8Wqvvtcpg history: Right upper quadrant painComments: Following the [...] minutes.Impression:1. No evidence of acute cholecystitis.BASIC METABOLIC [id number] 04:35:00 Test Item Value Reference Range Comments [...] NO RBC MORPH (test code=RBCMOR) NORMAL LACTIC [id number] 17:33:00 Test Item Value Reference Range Comments LACTIC ACD (test code=LA) 1.8 mmol/L 0.4-2.0 U/S [id number] 15:35:17LOCATION: H11EAQTCAK: 47-year-old female with nausea and vomiting.COMMENT:Sonographic imaging [...] appearance of the abdomen is unremarkable.BASIC METABOLIC [id number] 07:27: 00 Test Item Value Reference Range [...] RBC MORPH (test code=RBCMOR) NORMAL URINALYSIS WITH [id number] 23:20:00 Test Item Value Reference Range Comments [...] code=USPERM) /HPF NONE XR CHEST 1 VIEW [id number] 16:08:04HISTORY: DyspneaLocation code: H0Hvapfbbfks 10 February 2018FINDINGS: Frontal view of the chest demonstrates normal cardiomediastinalsilhouette. The trachea is midline. Minimal bibasilar atelectasis. Thelungsare otherwise clear. There is no effusion or pneumothorax. The bones areintact.IMPRESSION: Minimal bibasilar atelectasis.CLOSTRIDIUM DIFFICILE [id number] 11:11:00 Test Item Value Reference Range Comments Direct Exam (test code=DE1) NO CLOSTRIDIUM DIFFICILE TOXIN A/B DETECTED CBC WITH MANUAL [id number] 07:39:00 Test Item Value Reference Range Comments [...] NORMAL Few large plts code=PLTMOR) BASIC METABOLIC [id number] 06:01:00 Test Item Value Reference Range Comments [...] code=09D) 8.8 mg/dL 8.3-9.5 CBC WITH MANUAL [id number] 07:18:00 Test Item Value Reference Range Comments [...] MICROCYTIC (test code=MICRO) 1+ NONE BASIC METABOLIC [id number] 05:48:00 Test Item Value Reference Range Comments [...] code=09D) 8.8 mg/dL 8.3-9.5 MRI BRAIN W/O [id number] 18:15:41LOCATION: A1EXAM: MRI BRAIN W/O CONTRASTINDICATION: R51: [...] acute stroke. No acute abnormality.XR CENTRAL LINE [id number] 16:06:23EXAMINATION: NON- TUNNELED CENTRAL VENOUS CATHETER PLACEMENT.LOCATION: D4.HISTORY: The her central venous accessSEDATION: The patient did not require conscious sedation for the procedure.ANTIBIOTICS: None. Not indicated.TECHNIQUE: The risks, benefits, and alternatives were discussed and informedconsent was obtained. Prior to beginning the procedure, [place] Protocol wasused to confirm the patient's identity [...] at the bedside according to standard hospitalprotocol.U/S [id number] 16:06:23EXAMINATION: NON-TUNNELED CENTRAL VENOUS CATHETER PLACEMENT.LOCATION: D4.HISTORY: The her central venous accessSEDATION: The patient did not require conscious sedation for the procedure.ANTIBIOTICS: None. Not indicated.TECHNIQUE: The risks, benefits, and alternatives were discussed and informedconsent was obtained. Prior to beginning the procedure, [place] Protocol wasused to confirm the patient's identity [...] hospitalprotocol.CT ABDOMEN AND PELVIS WITH AND WITHOUT [id number] 15:59: 28Exam: CT abdomen and pelvis with and without contrast.Location: D4.History: [id number]: Abdominal [id number]: VomitingTechnique: Unenhanced and enhanced spiral slices were [...] enteritis.3. Nephrolithiasis.4. Small, fixed hiatalhernia.XR CHEST 1 [id number] 08:54: 41Portable AP chest, 1 viewLocation Code: R0YFNMDOKN HISTORY: Chest painCOMPARISON: NoneCOMMENT: There is mild prominence of the central pulmonary vasculature and interstitium.Mild atelectasis is present within the lung bases. There is no lobarconsolidation or effusion. IMPRESSION: Mild central congestive changes and bibasilar atelectasis.XR ABDOMEN 1 VIEW [id number] 08:54:16Abdomen, 1 viewLocation Code: L2Cbuypzvn history: Lower abdominal painComments: The bowel gas pattern is unremarkable. There is no visualizedabnormal calcification. The visualized osseous structures are intact.Impression: No acute radiographic abnormality.GLUCOMETER GLUCOSE- LAB USE [id number] 07:50:00 Test Item Value Reference Range Comments GLUCOMETER (test code=GMG) 157 mg/dL 70-100 CLEANED METERMeter ID: [id number]: [id number] СВЕТЛАНА DAIN CBC WITH MANUAL [id number] 06:57:00 Test Item Value Reference Range Comments [...] NONE MACRO (test code=MACRO) 1+ NONE TROPONIN [id number] 05:58:00 Test Item Value Reference Range Comments TROPONIN I (test code=A84) <0.015 ng/mL 0.000-0.045 COMPREHENSIVE METABOLIC [id number] 05:44:00 Test Item Value Reference Range Comments [...] 13 IU/L <=78 GLUCOMETER GLUCOSE- LAB USE [id number] 01:52:00 Test Item Value Reference Range Comments GLUCOMETER (test code=GMG) 110 mg/dL 70-100 Meter ID: [id number]: [id number] GAIL CIFUENTES TROPONIN [id number] 00:02:00 Test Item Value Reference Range Comments TROPONIN I (test code=A84) <0.015 ng/mL 0.000-0.045
[2019-08-26] MEDS ORDERED: METOCLOPRAMIDE 10 MG/2mL INJ ONE (07:53)
[2019-08-26] MEDS ORDERED: dexAMETHasone 4 MG/ML VIAL ONE ×2 (07:53→07:56)
[2019-08-26] MEDS ORDERED: DIPHENHYDRAMINE 50 MG/ML VIAL ONE (07:53)
[2019-08-26] MEDS ORDERED: NA CHLORIDE 0.9% 1,000 ML ONE (07:53)
--- NOTE | 2019-08-26 08:08 | RAD REPORT ---
EXAM DESCRIPTION: CT - Head Brain Wo Cont - 08/26/2019 7:51 am CLINICAL HISTORY: HEADACHE COMPARISON: No comparisons TECHNIQUE: All CT scans are performed using dose optimization technique as appropriate and may inclu de automated exposure control or mA/KV adjustment according to patient size. FINDINGS: No intracranial hemorrhage, hydrocephalus or extra-axial fluid collection.No areas of brai n edema or evidence of midline shift. The paranasal sinuses and mastoids are clear. The calvarium is intact. IMPRESSION: No acute intracranial abnormality.
[2019-08-26] MEDS ORDERED: HYDROMORPHONE HCL 1 MG/ML INJ ONE (08:56)
[2019-08-26] MEDS ORDERED: NA CHLORIDE 0.9% 100 ML IV ONE (08:57)
--- NOTE | 2019-08-26 09:02 | ER ---
Nurse's Notes [facility] Name: Margie Garcia Age: 49 yrs Sex: Female : 1970 Arrival Date: 08/26/2019 Time: 07:09 Bed 7 Private MD: Diagnosis: Headache Presentation: 07:12 Chief complaint: Patient states: migraine to right anglican that began 2 weeks ago. Pt aa5 states "I haven't been able to sleep for the last 3 days". Pt also reports nausea/vomiting. 07:12 Coronavirus screen: The patient has NOT traveled to [place] in the past 14 days. The aa5 patient has NOT had contact with known and/or suspected case of Coronavirus. Ebola Screen: Patient negative for fever greater than or equal to 101.5 degrees Fahrenheit, and additional compatible Ebola Virus Disease symptoms. Initial Sepsis Screen: Does the patient meet any 2 criteria? No. Patient's initial sepsis screen is negative. Does the patient have a suspected source of infection? No. Patient's initial sepsis screen is negative. Risk Assessment: Do you want to hurt yourself or someone else? Patient reports no desire to harm self or others. 07:12 Method Of Arrival: Wheelchair aa5 07:12 Acuity: BHARAT 3 aa5 Triage Assessment: 07:15 Headache History: The patient has had previous headaches and this one is more severe aa5 than previous episodes. 07:15 Pain: Also complains of nausea. aa5 Historical: - Allergies: 07:28 Imitrex; aa5 - Home Meds: 07:28 clonidine HCl 0.3 mg Oral tab 1 tab TID [Active]; carvedilol 25 mg Oral tab 1 tab 2 aa5 times per day [Active]; Butalbital Compound Oral [Active]; - PMHx: 07:28 Hypertension; Migraines; aa5 - Immunization history:: Flu vaccine is not up to date. - Social history:: Smoking status: Patient reports the use of cigarette tobacco products, 2 cigarettes a day . Screenin:28 Abuse screen: Denies threats or abuse. Nutritional screening: No deficits noted. aa5 Tuberculosis screening: No symptoms or risk factors identified. Fall Risk None identified. Assessment: 07:15 General: Appears uncomfortable, Behavior is calm, cooperative. Pain: Complains of pain aa5 in right anglican Pain radiates to top of head Pain currently is 9 out of 10 on a pain scale. Quality of pain is described as stabbing, Pain began 2 weeks ago Is continuous. Neuro: Level of Consciousness is awake, alert, obeys commands, Oriented to person, place, time, situation, Disc Pad Grinding Machine Feeder are equal bilaterally Moves all extremities. Gait is steady, Speech is normal, Facial symmetry appears normal, Pupils are PERRLA, Reports headache. Cardiovascular: Heart tones S1 S2 present Rhythm is regular. Respiratory: Airway is patent Respiratory effort is even, unlabored, Respiratory pattern is regular, symmetrical. GI: Abdomen is round non-distended, Bowel sounds present X 4 quads. Abd is soft and non tender X 4 quads. Reports nausea, vomiting. : No signs and/or symptoms were reported regarding the genitourinary system. EENT: No signs and/or symptoms were reported regarding the EENT system. Derm: Skin is pink, warm \\T\\ dry. Musculoskeletal: Range of motion: intact in all extremities. 07:47 Reassessment: Pt to CT at this time. aa5 08:45 Reassessment: Patient is alert, oriented x 3, equal unlabored respirations, skin aa5 warm/dry/pink. Pt reports nausea has improved, reports pain has not improved, rates pain 9/10 on a pain scale. CHIEF UNDERWRITER was notified. . 09:30 Reassessment: Patient is alert, oriented x 3, equal unlabored respirations, skin aa5 warm/dry/pink. Patient states feeling better. Patient states symptoms have improved. General: Appears comfortable. Vital Signs: 07:12 BP 144 / 102; Pulse 64; Resp 18 S; Temp 98.0(O); Pulse Ox 96% on R/A; Weight 81.19 kg aa5 (R); Height 5 ft. 5 in. (165.10 cm) (R); Pain 9/10; 07:55 BP 141 / 101; Pulse 60; Resp 16 S; Pulse Ox 100% on R/A; aa5 08:30 BP 162 / 107; Pulse 55; Resp 16 S; Pulse Ox 99% on R/A; aa5 09:00 BP 162 / 99; Pulse 64; Resp 18 S; Pulse Ox 99% on R/A; aa5 07:12 Body Mass Index 29.79 (81.19 kg, 165.10 cm) aa5 ED Course: 07:09 Patient arrived in ED. mr 07:10 Jacy Silva, RN is Primary Nurse. aa5 07:12 Arm band placed on Patient placed in an exam room, on a stretcher. aa5 07:12 Patient has correct armband on for positive identification. Bed in low position. Call aa5 light in reach. Side rails up X2. Pulse ox on. NIBP on. 07:14 Alan Jalloh NP is PHCP. pm1 07:15 Mike Willson MD is Attending Physician. atif 07:25 Triage completed. aa5 07:45 Inserted saline lock: 20 gauge in right forearm, using aseptic technique. aa5 07:51 CT Head Brain wo Cont In Process Unspecified. EDMS 07:55 CT completed. Patient tolerated procedure well. Patient moved back from CT. mw3 09:30 No provider procedures requiring assistance completed. IV discontinued, intact, aa5 bleeding controlled, No redness/swelling at site. Pressure dressing applied. Administered Medications: 07:48 Drug: Reglan 10 mg Route: IVP; Site: right forearm; aa5 08:00 Follow up: Response: No adverse reaction aa5 07:55 Drug: Benadryl 25 mg Route: IVP; Site: right forearm; aa5 08:00 Follow up: Response: No adverse reaction aa5 07:55 Drug: NS 0.9% 1000 ml Route: IV; Rate: 1000 ml; Site: right forearm; aa5 08:45 Follow up: IV Status: Completed infusion; IV Intake: 1000ml aa5 07:56 Drug: Decadron - Dexamethasone 10 mg Route: IVP; Site: right forearm; aa5 08:00 Follow up: Response: No adverse reaction aa5 08:57 Drug: Dilaudid 1 mg Route: IVP; Site: right forearm; aa5 09:30 Follow up: Response: No adverse reaction; Marked relief of symptoms aa5 Intake: 08:45 IV: 1000ml; Total: 1000ml. aa5 Outcome: 09:01 Discharge ordered by . pm1 09:30 Discharged to home ambulatory, with family. aa5 09:30 Condition: improved 09:30 Discharge instructions given to patient, Instructed on discharge instructions, follow up and referral plans. medication usage, Demonstrated understanding of instructions, follow-up care, medications, Prescriptions given X 2. 09:32 Patient left the ED. kj1 Signatures: Dispatcher [employer] EDMS Mike Willson, MD MD atif Lorenzo, Jennifer Silva, MARCK Louie RN aa5 Alan Jalloh, CHIEF UNDERWRITER CHIEF UNDERWRITER pm1 Oksana Cedeno mw3 Zenobia Harding kj1
--- NOTE | 2019-08-26 09:02 | EDPHYS ---
Physician Documentation [facility] Name: Margie Garcia Age: 49 yrs Sex: Female : 1970 Arrival Date: 08/26/2019 Time: 07:09 Bed 7 Private MD: MORA Physician Mike Willson HPI: 07:36 This 49 yrs old Female presents to ER via Wheelchair with complaints of pm1 Headache. 07:36 The patient complains of pain to the right side of head. pm1 07:36 The patient describes the headache as aching, constant. pm1 07:36 Onset: The symptoms/episode began/occurred 2 week(s) ago. Associated signs and pm1 symptoms: Pertinent positives: nausea, vomiting. Severity of symptoms: in the emergency department the pain is unchanged. Headache History: Other The patient has had previous headaches and this one is similar to her prior migraines, just lasting longer than usual. The symptoms are alleviated by Darkened room, the symptoms are aggravated by lights, noise. The patient has experienced similar episodes in the past, multiple times. Historical: - Allergies: 07:28 Imitrex; aa5 - Home Meds: 07:28 clonidine HCl 0.3 mg Oral tab 1 tab TID [Active]; carvedilol 25 mg Oral tab 1 tab 2 aa5 times per day [Active]; Butalbital Compound Oral [Active]; - PMHx: 07:28 Hypertension; Migraines; aa5 - Immunization history:: Flu vaccine is not up to date. - Social history:: Smoking status: Patient reports the use of cigarette tobacco products, 2 cigarettes a day . ROS: 07:36 Constitutional: Negative for fever, chills, and weight loss, Eyes: Negative for injury, pm1 pain, redness, and discharge, ENT: Negative for injury, pain, and discharge, Neck: Negative for injury, pain, and swelling, Cardiovascular: Negative for chest pain, palpitations, and edema, Respiratory: Negative for shortness of breath, cough, wheezing, and pleuritic chest pain, Back: Negative for injury and pain, MS/Extremity: Negative for injury and deformity, Skin: Negative for injury, rash, and discoloration. 07:36 Abdomen/GI: Positive for nausea and vomiting, Negative for abdominal pain, diarrhea, constipation. 07:36 Neuro: Positive for headache, of the right side of forehead, right scientology and right base of the skull, Negative for altered mental status, dizziness, weakness. Exam: 07:36 Constitutional: This is a well developed, well nourished patient who is awake, alert, pm1 and in no acute distress. 07:36 Eyes: Pupils equal round and reactive to light, extra-ocular motions intact. Lids and lashes normal. Conjunctiva and sclera are non-icteric and not injected. Cornea within normal limits. Periorbital areas with no swelling, redness, or edema. ENT: Nares patent. No nasal discharge, no septal abnormalities noted. Tympanic membranes are normal and external auditory canals are clear. Oropharynx with no redness, swelling, or masses, exudates, or evidence of obstruction, uvula midline. Mucous membranes moist. Neck: Trachea midline, no thyromegaly or masses palpated, and no cervical lymphadenopathy. Supple, full range of motion without nuchal rigidity, or vertebral point tenderness. No Meningismus. Chest/axilla: Normal chest wall appearance and motion. Nontender with no deformity. No lesions are appreciated. Cardiovascular: Regular rate and rhythm with a normal S1 and S2. No gallops, murmurs, or rubs. No pulse deficits. Respiratory: Lungs have equal breath sounds bilaterally, clear to auscultation and percussion. No rales, rhonchi or wheezes noted. No increased work of breathing, no retractions or nasal flaring. Abdomen/GI: Soft, non-tender, with normal bowel sounds. No distension or tympany. No guarding or rebound. No evidence of tenderness throughout. Back: No spinal tenderness. No costovertebral tenderness. Full range of motion. Skin: Warm, dry with normal turgor. Normal color with no rashes, no lesions, and no evidence of cellulitis. MS/ Extremity: Pulses equal, no cyanosis. Neurovascular intact. Full, normal range of motion. 07:36 Head/face: Noted is no obvious of injury or deformity except tenderness, of the right side of forehead and right base of the skull. 07:36 Neuro: Orientation: is normal, Motor: is normal, moves all fours, Sensation: is normal, no obvious gross deficits. Vital Signs: 07:12 BP 144 / 102; Pulse 64; Resp 18 S; Temp 98.0(O); Pulse Ox 96% on R/A; Weight 81.19 kg aa5 (R); Height 5 ft. 5 in. (165.10 cm) (R); Pain 9/10; 07:55 BP 141 / 101; Pulse 60; Resp 16 S; Pulse Ox 100% on R/A; aa5 08:30 BP 162 / 107; Pulse 55; Resp 16 S; Pulse Ox 99% on R/A; aa5 09:00 BP 162 / 99; Pulse 64; Resp 18 S; Pulse Ox 99% on R/A; aa5 07:12 Body Mass Index 29.79 (81.19 kg, 165.10 cm) aa5 MDM: 07:15 Patient medically screened. [facility] 08:27 Data reviewed: vital signs. Data interpreted: Pulse oximetry: on room air is 100 %. pm1 Interpretation: normal. 08:49 ED course: Patient reports resolution of nausea without improvement in pain. Reports pm1 that headache cocktail usually does not work and requires narcotics to usually give relief. 09:01 Counseling: I had a detailed discussion with the patient and/or guardian regarding: the pm1 historical points, exam findings, and any diagnostic results supporting the discharge/admit diagnosis, radiology results, the need for outpatient follow up, for definitive care, a family practitioner, a neurologist, to return to the emergency department if symptoms worsen or persist or if there are any questions or concerns that arise at home. 09:23 ED course: Patient requested prescription for Fioricet. Checked PMPAware: last narcotic pm1 prescription filled was Tramadol on 06/27/2019. 07:31 Order name: CT Head Brain wo Cont; Complete Time: 08:17 pm1 07:31 Order name: IV Saline Lock; Complete Time: 07:59 pm1 Administered Medications: 07:48 Drug: Reglan 10 mg Route: IVP; Site: right forearm; aa5 08:00 Follow up: Response: No adverse reaction aa5 07:55 Drug: Benadryl 25 mg Route: IVP; Site: right forearm; aa5 08:00 Follow up: Response: No adverse reaction aa5 07:55 Drug: NS 0.9% 1000 ml Route: IV; Rate: 1000 ml; Site: right forearm; aa5 08:45 Follow up: IV Status: Completed infusion; IV Intake: 1000ml 5 07:56 Drug: Decadron - Dexamethasone 10 mg Route: IVP; Site: right forearm; aa5 08:00 Follow up: Response: No adverse reaction aa5 08:57 Drug: Dilaudid 1 mg Route: IVP; Site: right forearm; aa5 09:30 Follow up: Response: No adverse reaction; Marked relief of symptoms aa5 Disposition: 08/26/19 09:01 Discharged to Home. Impression: Headache. - Condition is Stable. - Discharge Instructions: General Headache Without Cause. - Prescriptions for Zofran ODT 4 mg Oral tablet,disintegrating - take 1 tablet by ORAL route every 8 hours As needed; 12 tablet. Fiorinal 50- 325-40 mg Oral Capsule - take 1 capsule by ORAL route every 4 hours As needed - not to exceed 6 capsules per day; 20 capsule. - Medication Reconciliation Form, Thank You Letter, Antibiotic Education, Prescription Opioid Use form. - Follow up: Emergency Department; When: As needed; Reason: Worsening of condition. Follow up: Private Physician; When: 2 - 3 days; Reason: Recheck today's complaints, Continuance of care, Re-evaluation by your physician. - Problem is new. - Symptoms have improved. Addendum: 08/27/2019 17:53 Co-signature as Attending Physician, Mike Willson MD I agree with the assessment and c flynn plan of care. Signatures: Dispatcher [employer] Mike Mccall MD MD cha Calderon, Audri, RN RN aa5 Alan Jalloh, [employer] pm1 Zenobia Harding kj1 Corrections: (The following items were deleted from the chart) 09:32 09:01 08/26/2019 09:01 Discharged to Home. Impression: Headache. Condition is Stable. kj1 Forms are Medication Reconciliation Form, Thank You Letter, Antibiotic Education, Prescription Opioid Use. Follow up: Emergency Department; When: As needed; Reason: Worsening of condition. Follow up: Private Physician; When: 2 - 3 days; Reason: Recheck today's complaints, Continuance of care, Re-evaluation by your physician. Problem is new. Symptoms have improved. pm1
[2019-08-26 09:45] VITALS: TEMP 98
[2019-08-26 09:46] VITALS: BP 141/101; O2SAT 100
== END 2019-08-26 09:32 | disposition home or self-care (01) ==
LOC: ER 07:06
DX: R51 Headache (principal); G43.909 Migraine, unspecified, not intractable, without status migrainosus; I10 Essential (primary) hypertension; F17.210 Nicotine dependence, cigarettes, uncomplicated; Z88.8 Allergy status to other drugs, medicaments and biological substances
CPT/HCPCS: 96361; 70450; 96375; 96374; 99284; J2765; J1200; J1170; J7030

== ENCOUNTER 2019-10-07 11:23 | Inpatient (IN) | payer BC ==
--- OUTSIDE RECORDS SUMMARY | 2019-10-07 11:30 | XMS REPORT ---
:1970 Author Organization [facility] t Address [address] [place] [address] Care Team Providers Name Role Phone DR Bethany ERVIN Unavailable Unavailable DR TONNY Unavailable Unavailable DR ELEANOR Unavailable Unavailable WILLIAM, Unavailable Unavailable CHRIS, MS Elmer Unavailable Unavailable Problems This patient has no known problems. Allergies, Adverse Reactions, Alerts This patient has no known allergies or adverse reactions. Medications This patient has no known medications. Encounters Start End Encounter Admission Attending Care Care Encounter Date/Time Date/Time Type Type Clinicians Facility Department ID 2019-01-21 2019-01-24 Inpatient E AZIZA, [facility] TELE [id number] 28 17:51:00 13:13:00 CAS 2018-07-16 2018-07-19 Outpatient E TONNY, [facility] [place] TELE [id number] 15:24:00 14:47:00 LESTER 2018-06-30 2018-07-01 Outpatient E ELEANOR, [facility] [place] TELE [id number] 16:03:00 17:15:00 DYLON 2018-05-17 2018-05-17 Emergency E WILLIAM [facility] [id number] 13:38:00 15:27:00 PATI 2018-03-09 2018-03-09 [id number] 10:29:00 14:00:00 ANDREW Results Test Description Test Time Test Comments Text Results Atomic Results Result Comments MAGNESIUM WW 2019-01-24 06:19:00 Test Item Value Reference Range Comments MAGNESIUM (test code = 48A) 2.0 mg/dL 1.8-2.4 BASIC METABOLIC PANEL *WW*2019-01-24 06:05:00 Test Item Value Reference Range Comments GLUCOSE (test code = 06D) 91 mg/dL 75-100 SODIUM (test code = 01A) 136 mmol/L 136-145 POTASSIUM (test code = 01B) 3.1 mmol/L 3.6-5.1 CHLORIDE (test code = 04A) 103 mmol/L 98-107 CO2 (test code = 02A) 23 mmol/L 22-32 ANION GAP (test code = ANG) 13.1 mmol/L BUN (test code = 05D) 15 mg/dL 7-18 CREATININE (test code = 03E) 0.5 mg/dL 0.4-1.1 BUN/CREA (test code = BCR) 28 12-20 CALCIUM (test code = 09D) 8.3 mg/dL 8.3-9.5 CBC (INCLUDES AUTOMATED DIFFERENTIAL)*[id number] 05:53:00 Test Item Value Reference Range Comments WBC (test code = WBC) 8.5 10\S\3/uL 4.5-11.0 RBC (test code = RBC) 3.78 10\S\6/uL 4.20-5.60 HGB (test code = HBG) 12.2 g/dL 12.0-15.5 HCT (test code = HCT) 37.4 % 35.0-44.0 MCV (test code = MCV) 98.9 fL 81.0-99.0 MCH (test code = MCH) 32.3 pg 27.0-31.0 MCHC (test code = MCHC) 32.6 g/dL 32.0-36.0 RDW (test code = RDW) 13.2 % 11.5-14.5 PLT (test code = PLT) 234 10\S\3/uL 130-400 MPV (test code = MPV) 9.6 fL 9.4-12.4 NEUTROP # (test code = NE#) 6.3 10\S\3/uL 1.6-8.0 LYMPH # (test code = LY#) 1.5 10\S\3/uL 1.1-3.5 MONOCYTE # (test code = MO#) 0.6 10\S\3/uL 0.0-1.1 EOSINOPH # (test code = EO#) 0.0 10\S\3/uL 0.0-0.7 BASOPHIL # (test code = BA#) 0.0 10\S\3/uL 0.0-0.3 IG # (test code = IG#) 0.03 10\S\3/uL 0.00-0.06 NRBC # (test code = NRBC#) 0.00 10\S\3/uL 0.00-0.01 NEUTROPH % (test code = NE%) 73.6 % 35.0-73.0 LYMPH % (test code = LY%) 18.2 % 20.0-55.0 MONO % (test code = MO%) 7.3 % 2.5-10.0 EOSINOPH % (test code = EO%) 0.1 % 0.0-5.0 BASOPHIL % (test code = BA%) 0.4 % 0.0-2.0 IG % (test code = IG%) 0.4 % 0.0-0.8 NRBC% (test code = NRBC%) 0.0 % 0.0-0.2 MANDIFF (test code = WMDIFF) NO NO RBC MORPH (test code = WRBCMOR) NORMAL BASIC METABOLIC PANEL 2019-01-23 06:59:00 Test Item Value Reference Range Comments GLUCOSE (test code = 06D) 81 mg/dL 75-100 SODIUM (test code = 01A) 140 mmol/L 136-145 POTASSIUM (test code = 01B) 3.1 mmol/L 3.6-5.1 CHLORIDE (test code = 04A) 107 mmol/L 98-107 CO2 (test code = 02A) 25 mmol/L 22-32 ANION GAP (test code = ANG) 11.1 mmol/L BUN (test code = 05D) 18 mg/dL 7-18 CREATININE (test code = 03E) 0.7 mg/dL 0.4-1.1 BUN/CREA (test code = BCR) 27 12-20 CALCIUM (test code = 09D) 8.3 mg/dL 8.3-9.5 PRO TIME AND PTT 2019-01-23 06:18:00 Test Item Value Reference Range Comments PT (test code = TT) 14.4 s 9.8-13.6 INR (test code = INR) 1.3 INRH (test code = INRH) SUGGESTED THERAPEUTIC RANGE FOR INR: 2.5 - 3.5 For Patients with Prosthetic Valves or Patients with recurrent Thromboembolic Events 2.0 - 3.0 For Most Other Applications PTT (test code = PTT) 25.9 s 20.2-38.0 PTTH (test code = PTTH) To monitor the effectiveness of heparin, we offer the Anti-Xa (Heparin Assay). It can be used for either unfractionated or LMW Heparin. Order Code is ANTI-XA MAGNESIUM WW2019-01-23 06:02:00 Test Item Value Reference Range Comments MAGNESIUM (test code = 48A) 2.0 mg/dL 1.8-2.4 CBC (INCLUDES AUTOMATED DIFFERENTIAL)*[id number] 05:59:00 Test Item Value Reference Range Comments WBC (test code = WBC) 8.4 10\S\3/uL 4.5-11.0 RBC (test code = RBC) 3.67 10\S\6/uL 4.20-5.60 HGB (test code = HBG) 11.7 g/dL 12.0-15.5 HCT (test code = HCT) 35.3 % 35.0-44.0 MCV (test code = MCV) 96.2 fL 81.0-99.0 MCH (test code = MCH) 31.9 pg 27.0-31.0 MCHC (test code = MCHC) 33.1 g/dL 32.0-36.0 RDW (test code = RDW) 13.2 % 11.5-14.5 PLT (test code = PLT) 241 10\S\3/uL 130-400 MPV (test code = MPV) 9.4 fL 9.4-12.4 NEUTROP # (test code = NE#) 5.3 10\S\3/uL 1.6-8.0 LYMPH # (test code = LY#) 2.2 10\S\3/uL 1.1-3.5 MONOCYTE # (test code = MO#) 0.7 10\S\3/uL 0.0-1.1 EOSINOPH # (test code = EO#) 0.1 10\S\3/uL 0.0-0.7 BASOPHIL # (test code = BA#) 0.1 10\S\3/uL 0.0-0.3 IG # (test code = IG#) 0.03 10\S\3/uL 0.00-0.06 NRBC # (test code = NRBC#) 0.00 10\S\3/uL 0.00-0.01 NEUTROPH % (test code = NE%) 63.7 % 35.0-73.0 LYMPH % (test code = LY%) 25.7 % 20.0-55.0 MONO % (test code = MO%) 8.8 % 2.5-10.0 EOSINOPH % (test code = EO%) 0.8 % 0.0-5.0 BASOPHIL % (test code = BA%) 0.6 % 0.0-2.0 IG % (test code = IG%) 0.4 % 0.0-0.8 NRBC% (test code = NRBC%) 0.0 % 0.0-0.2 MANDIFF (test code = WMDIFF) NO NO RBC MORPH (test code = WRBCMOR) NORMAL BASIC METABOLIC PANEL 2019-01-22 07:12:00 Test Item Value Reference Range Comments GLUCOSE (test code = 06D) 86 mg/dL 75-100 SODIUM (test code = 01A) 141 mmol/L 136-145 POTASSIUM (test code = 01B) 3.2 mmol/L 3.6-5.1 CHLORIDE (test code = 04A) 109 mmol/L 98-107 CO2 (test code = 02A) 24 mmol/L 22-32 ANION GAP (test code = ANG) 11.2 mmol/L BUN (test code = 05D) 20 mg/dL 7-18 CREATININE (test code = 03E) 0.6 mg/dL 0.4-1.1 BUN/CREA (test code = BCR) 33 12-20 CALCIUM (test code = 09D) 8.4 mg/dL 8.3-9.5 CARDIAC PROFILE 2019-01-22 06:11:00 Test Item Value Reference Range Comments TROPONIN I (test code = A84) <0.015 ng/mL 0.000-0.045 CBC (INCLUDES AUTOMATED DIFFERENTIAL)*[id number] 06:06:00 Test Item Value Reference Range Comments WBC (test code = WBC) 12.4 10\S\3/uL 4.5-11.0 RBC (test code = RBC) 3.52 10\S\6/uL 4.20-5.60 HGB (test code = HBG) 11.1 g/dL 12.0-15.5 HCT (test code = HCT) 34.1 % 35.0-44.0 MCV (test code = MCV) 96.9 fL 81.0-99.0 MCH (test code = MCH) 31.5 pg 27.0-31.0 MCHC (test code = MCHC) 32.6 g/dL 32.0-36.0 RDW (test code = RDW) 13.5 % 11.5-14.5 PLT (test code = PLT) 259 10\S\3/uL 130-400 MPV (test code = MPV) 9.4 fL 9.4-12.4 NEUTROP # (test code = NE#) 9.4 10\S\3/uL 1.6-8.0 LYMPH # (test code = LY#) 2.0 10\S\3/uL 1.1-3.5 MONOCYTE # (test code = MO#) 0.9 10\S\3/uL 0.0-1.1 EOSINOPH # (test code = EO#) 0.0 10\S\3/uL 0.0-0.7 BASOPHIL # (test code = BA#) 0.0 10\S\3/uL 0.0-0.3 IG # (test code = IG#) 0.08 10\S\3/uL 0.00-0.06 NRBC # (test code = NRBC#) 0.00 10\S\3/uL 0.00-0.01 NEUTROPH % (test code = NE%) 75.7 % 35.0-73.0 LYMPH % (test code = LY%) 16.2 % 20.0-55.0 MONO % (test code = MO%) 7.2 % 2.5-10.0 EOSINOPH % (test code = EO%) 0.1 % 0.0-5.0 BASOPHIL % (test code = BA%) 0.2 % 0.0-2.0 IG % (test code = IG%) 0.6 % 0.0-0.8 NRBC% (test code = NRBC%) 0.0 % 0.0-0.2 MANDIFF (test code = WMDIFF) NO NO RBC MORPH (test code = WRBCMOR) NORMAL MAGNESIUM 2019-01-22 06:03:00 Test Item Value Reference Range Comments MAGNESIUM (test code = 48A) 2.2 mg/dL 1.8-2.4 TROPONIN I *WW*2019-01-21 14:09:00 Test Item Value Reference Range Comments TROPONIN I (test code = A84) <0.015 ng/mL 0.000-0.045 LACTIC ACID WW2019-01-21 06:18:00 Test Item Value Reference Range Comments LACTIC ACD (test code = LA) 1.1 mmol/L 0.4-2.0 BASIC METABOLIC PANEL *WW*2019-01-21 06:17:00 Test Item Value Reference Range Comments GLUCOSE (test code = 06D) 144 mg/dL 75-100 SODIUM (test code = 01A) 141 mmol/L 136-145 POTASSIUM (test code = 01B) 3.0 mmol/L 3.6-5.1 CHLORIDE (test code = 04A) 108 mmol/L 98-107 CO2 (test code = 02A) 24 mmol/L 22-32 ANION GAP (test code = ANG) 11.9 mmol/L BUN (test code = 05D) 16 mg/dL 7-18 CREATININE (test code = 03E) 0.7 mg/dL 0.4-1.1 BUN/CREA (test code = BCR) 23 12-20 CALCIUM (test code = 09D) 8.7 mg/dL 8.3-9.5 CBC (INCLUDES AUTOMATED DIFFERENTIAL)*[id number] 06:00:00 Test Item Value Reference Range Comments WBC (test code = WBC) 15.6 10\S\3/uL 4.5-11.0 RBC (test code = RBC) 3.87 10\S\6/uL 4.20-5.60 HGB (test code = HBG) 12.0 g/dL 12.0-15.5 HCT (test code = HCT) 35.8 % 35.0-44.0 MCV (test code = MCV) 92.5 fL 81.0-99.0 MCH (test code = MCH) 31.0 pg 27.0-31.0 MCHC (test code = MCHC) 33.5 g/dL 32.0-36.0 RDW (test code = RDW) 13.5 % 11.5-14.5 PLT (test code = PLT) 325 10\S\3/uL 130-400 MPV (test code = MPV) 9.5 fL 9.4-12.4 NEUTROP # (test code = NE#) 13.7 10\S\3/uL 1.6-8.0 LYMPH # (test code = LY#) 1.1 10\S\3/uL 1.1-3.5 MONOCYTE # (test code = MO#) 0.8 10\S\3/uL 0.0-1.1 EOSINOPH # (test code = EO#) 0.0 10\S\3/uL 0.0-0.7 BASOPHIL # (test code = BA#) 0.0 10\S\3/uL 0.0-0.3 IG # (test code = IG#) 0.08 10\S\3/uL 0.00-0.06 NRBC # (test code = NRBC#) 0.00 10\S\3/uL 0.00-0.01 NEUTROPH % (test code = NE%) 87.6 % 35.0-73.0 LYMPH % (test code = LY%) 6.7 % 20.0-55.0 MONO % (test code = MO%) 4.9 % 2.5-10.0 EOSINOPH % (test code = EO%) 0.0 % 0.0-5.0 BASOPHIL % (test code = BA%) 0.3 % 0.0-2.0 IG % (test code = IG%) 0.5 % 0.0-0.8 NRBC% (test code = NRBC%) 0.0 % 0.0-0.2 MANDIFF (test code = WMDIFF) NO NO RBC MORPH (test code = WRBCMOR) NORMAL URINALYSIS WITH [id number] 21:55:00 Test Item Value Reference Range Comments COLOR (test code = COLU) YELLOW YELLOW CLARITY (test code = CLA) CLEAR CLEAR GLUCOSE UR (test code = UA GLUCOSE) NEGATIVE NEGATIVE BILI UR (test code = BILE) NEGATIVE NEGATIVE KETONES UR (test code = AUGUSTINE) 3+ NEGATIVE SP GRAVITY (test code = SPGR) 1.030 1.005-1.030 PH UR (test code = PH) 6.0 4.5-8.0 PROTEIN UR (test code = PU) 2+ NEGATIVE UROBIL UR (test code = UROQ) 0.2 EU/dL 0.2-1.0 NITRITE UR (test code = NITRITE) NEGATIVE NEGATIVE BLOOD UR (test code = UA BLOOD) NEGATIVE NEGATIVE LEUK ES UR (test code = LEUK) NEGATIVE NEGATIVE WBC UR (test code = UWBC) 0 /HPF 0-5 RBC UR (test code = URBC) 0 /HPF 0-2 EPITH UR (test code = UEPC) FEW /LPF FEW BACTERIA UR (test code = UBACT) FEW /HPF NONE CAST UR (test code = CAST) /LPF NONE CRYSTAL UR (test code = CRYU) / LPF NONE MUCUS UR (test code = MUC) / HPF NONE AMORPH UR (test code = SHAHEEN) / HPF NONE TRICH UR (test code = UTRICH) /HPF NONE YEAST UR (test code = UY) /HPF NONE SPERM UR (test code = USPERM) /HPF NONE DRUGS OF [id number] 21:55:00 Test Item Value Reference Range Comments DRUG SCRN (test code = HDOA) URINE DRUG SCREEN This is an unconfirmed screening result and should not be used for non-medical purposes CANNABINOD (test code = 88C) POSITIVE NEGATIVE AMPHETAMINE (test code = Negative NEGATIVE 84A) BENZODIAZP (test code = 86A) Negative NEGATIVE BARBITURAT (test code = 85A) POSITIVE NEGATIVE OPIATES (test code = 92B) POSITIVE NEGATIVE COCAINE (test code = 87A) Negative NEGATIVE PHENCYCLID (test code = 66A) Negative NEGATIVE METHADONE (test code = 64A) Negative NEGATIVE DOAH (test code = DOAH.) URINE DRUG SCREEN Cut-off values are as follows: Cannabinoids 50 ng/mL Cocaine 300 ng/mL Amphetamines 1000 ng/mL Phencyclidine 25 ng/mL Benzodiazepines 200 ng.mL Methadone 300 ng/mL Barbiturates 200 ng/mL Opiates 2000 ng/mL CT ABDOMEN AND PELVIS WITH [id number] 21:03:20Exam: CT abdomen and pelvis with contrast.Location: H 12History: diffuse abdominal pain, vomitingTech nique: Enhanced spiral slices were taken from the domes of the diaphragm,through the pubic symphysis. Coronal reformations were performed. One or moreof the following radiation dose reduction techniques was used: automatedexposure control, adjustment of mA and/or KV according to patient size, and/orutilization of iterative reconstruction technique.Findings:The liver is [...] findings.2. Nephrolithiasis.3. Otherwise unremarkable exam.CT CHEST W/ CONTRAST 2019-01-20 21:02:21Chest CT with contrast.Location Code: [id number] HISTORY: chest pain, vomitingCOMPARISON: NoneTechnique: Helical CT [...] is not enlarged. There is no mediastinal he matoma.Images through the upper abdomen are unremarkable. The bones, skin, and surrounding soft tissues are unremarkable.IMPRESSION: 1. Minimal bibasilar subsegmental atelectasis and otherwise unremarkable exam.CT HEAD W/O CONTRAST 2019-01-20 20:54:59Clinical History: Headache. Location: D4.Findings: Multislice axial [...] patientsize, and/or utilization of iterative reconstruction technique.OCCULT [id number] 20:16:00 Test Item Value Reference Range Comments Direct Exam (test code = DE1) POSITIVE FOR OCCULT BLOOD [id number] 20:03:00 Test Item Value Reference Range Comments D-DIMER (test code = DDI) <200 ng/mL D-DU 0-234 D-DIMER COMMENT (test code = *Level to rule out DVT or PE: DDCOM) <235 ng/mL D-DU* PRO TIME AND [id number] 20:03:00 Test Item Value Reference Range Comments PT (test code = TT) 11.8 s 9.8-13.6 INR (test code = INR) 1.0 INRH (test code = INRH) SUGGESTED THERAPEUTIC RANGE FOR INR: 2.5 - 3.5 For Patients with Prosthetic Valves or Patients with recurrent Thromboembolic Events 2.0 - 3.0 For Most Other Applications PTT (test code = PTT) 26.0 s 20.2-38.0 PTTH (test code = PTTH) To monitor the effectiveness of heparin, we offer the Anti-Xa (Heparin Assay). It can be used for either unfractionated or LMW Heparin. Order Code is ANTI-XA [id number] 20:02:00 Test Item Value Reference Range Comments CPK (test code = 32A) 140 IU/L 26-192 COMPREHENSIVE METABOLIC [id number] 20:02:00 Test Item Value Reference Range Comments GLUCOSE (test code = 06D) 142 mg/dL 75-100 SODIUM (test code = 01A) 142 mmol/L 136-145 POTASSIUM (test code = 01B) 3.7 mmol/L 3.6-5.1 CHLORIDE (test code = 04A) 110 mmol/L 98-107 CO2 (test code = 02A) 21 mmol/L 22-32 ANION GAP (test code = ANG) 14.7 mmol/L BUN (test code = 05D) 16 mg/dL 7-18 CREATININE (test code = 03E) 0.8 mg/dL 0.4-1.1 BUN/CREA (test code = BCR) 21 12-20 CALCIUM (test code = 09D) 9.2 mg/dL 8.3-9.5 BILI TOTAL (test code = 11A) 0.4 mg/dL 0.2-1.0 PROTEIN (test code = 07D) 7.7 g/dL 6.4-8.2 ALBUMIN (test code = 08D) 4.3 g/dL 3.5-4.8 GLOBULIN (test code = GLB) 3.4 g/dL 1.5-3.8 ALB/GLOB (test code = AGRR) 1.3 1.0-2.6 ALK PHOS (test code = 35A) 74 IU/L 42-121 AST (test code = 30A) 20 IU/L <=42 ALT (test code = 31A) 18 IU/L <=78 TROPONIN [id number] 19:55:00 Test Item Value Reference Range Comments TROPONIN I (test code = A84) <0.015 ng/mL 0.000-0.045 XR CHEST 1 VIEW [id number] 19:40:49Exam: Chest portable erectLocation: H 12History: chest painComparison: 06/30/2018Findings:The lungs are clear. No infiltrate or effusion is seen. The pulmonaryvasculature is normal. The heart size is mildly enlarged. Atherosclerosisinvolves the aorta. The mediastinal silhouette is unremarkable. The bony thoraxis intact with degenerative changes noted.Impression:No acute disease.CBC (INCLUDES AUTOMATED DIFFERENTIAL) 2019-01-20 19:40:00 Test Item Value Reference Range Comments WBC (test code = WBC) 17.3 10\S\3/uL 4.5-11.0 RBC (test code = RBC) 3.86 10\S\6/uL 4.20-5.60 HGB (test code = HBG) 12.1 g/dL 12.0-15.5 HCT (test code = HCT) 35.2 % 35.0-44.0 MCV (test code = MCV) 91.2 fL 81.0-99.0 MCH (test code = MCH) 31.3 pg 27.0-31.0 MCHC (test code = MCHC) 34.4 g/dL 32.0-36.0 RDW (test code = RDW) 13.6 % 11.5-14.5 PLT (test code = PLT) 309 10\S\3/uL 130-400 MPV (test code = MPV) 10.2 fL 9.4-12.4 NEUTROP # (test code = NE#) 15.2 10\S\3/uL 1.6-8.0 LYMPH # (test code = LY#) 1.1 10\S\3/uL 1.1-3.5 MONOCYTE # (test code = MO#) 0.9 10\S\3/uL 0.0-1.1 EOSINOPH # (test code = EO#) 0.0 10\S\3/uL 0.0-0.7 BASOPHIL # (test code = BA#) 0.0 10\S\3/uL 0.0-0.3 IG # (test code = IG#) 0.08 10\S\3/uL 0.00-0.06 NRBC # (test code = NRBC#) 0.00 10\S\3/uL 0.00-0.01 NEUTROPH % (test code = NE%) 88.0 % 35.0-73.0 LYMPH % (test code = LY%) 6.3 % 20.0-55.0 MONO % (test code = MO%) 5.0 % 2.5-10.0 EOSINOPH % (test code = EO%) 0.0 % 0.0-5.0 BASOPHIL % (test code = BA%) 0.2 % 0.0-2.0 IG % (test code = IG%) 0.5 % 0.0-0.8 NRBC% (test code = NRBC%) 0.0 % 0.0-0.2 MANDIFF (test code = MDIFF) NO NO COMPREHENSIVE METABOLIC [id number] 04:10:00 Test Item Value Reference Range Comments GLUCOSE (test code = 06D) 92 mg/dL 75-100 SODIUM (test code = 01A) 141 mmol/L 136-145 POTASSIUM (test code = 01B) 3.6 mmol/L 3.6-5.1 CHLORIDE (test code = 04A) 107 mmol/L 98-107 CO2 (test code = 02A) 22 mmol/L 22-32 ANION GAP (test code = ANG) 15.6 mmol/L BUN (test code = 05D) 19 mg/dL 7-18 CREATININE (test code = 03E) 0.7 mg/dL 0.4-1.1 BUN/CREA (test code = BCR) 27 12-20 CALCIUM (test code = 09D) 8.9 mg/dL 8.3-9.5 BILI TOTAL (test code = 11A) 0.4 mg/dL 0.2-1.0 PROTEIN (test code = 07D) 6.9 g/dL 6.4-8.2 ALBUMIN (test code = 08D) 3.3 g/dL 3.5-4.8 GLOBULIN (test code = GLB) 3.6 g/dL 1.5-3.8 ALB/GLOB (test code = AGRR) 0.9 1.0-2.6 ALK PHOS (test code = 35A) 68 IU/L 42-121 AST (test code = 30A) 12 IU/L <=42 ALT (test code = 31A) 15 IU/L <=78 CBC (INCLUDES AUTOMATED DIFFERENTIAL)2018-07-17 05:48:00 Test Item Value Reference Range Comments WBC (test code = WBC) 11.9 10\S\3/uL 4.5-11.0 RBC (test code = RBC) 3.95 10\S\6/uL 4.20-5.60 HGB (test code = HBG) 11.9 g/dL 12.0-15.5 HCT (test code = HCT) 37.2 % 35.0-44.0 MCV (test code = MCV) 94.2 fL 81.0-99.0 MCH (test code = MCH) 30.1 pg 27.0-31.0 MCHC (test code = MCHC) 32.0 g/dL 32.0-36.0 RDW (test code = RDW) 13.8 % 11.5-14.5 PLT (test code = PLT) 352 10\S\3/uL 130-400 MPV (test code = MPV) 9.7 fL 9.4-12.4 NEUTROP # (test code = NE#) 9.0 10\S\3/uL 1.6-8.0 LYMPH # (test code = LY#) 1.8 10\S\3/uL 1.1-3.5 MONOCYTE # (test code = MO#) 1.0 10\S\3/uL 0.0-1.1 EOSINOPH # (test code = EO#) 0.0 10\S\3/uL 0.0-0.7 BASOPHIL # (test code = BA#) 0.1 10\S\3/uL 0.0-0.3 IG # (test code = IG#) 0.07 10\S\3/uL 0.00-0.06 NRBC # (test code = NRBC#) 0.00 10\S\3/uL 0.00-0.01 NEUTROPH % (test code = NE%) 75.2 % 35.0-73.0 LYMPH % (test code = LY%) 14.9 % 20.0-55.0 MONO % (test code = MO%) 8.6 % 2.5-10.0 EOSINOPH % (test code = EO%) 0.3 % 0.0-5.0 BASOPHIL % (test code = BA%) 0.4 % 0.0-2.0 IG % (test code = IG%) 0.6 % 0.0-0.8 NRBC% (test code = NRBC%) 0.0 % 0.0-0.2 MANDIFF (test code = MDIFF) NO NO RBC MORPH (test code = RBCMOR) NORMAL BASIC METABOLIC [id number] 05:47:00 Test Item Value Reference Range Comments GLUCOSE (test code = 06D) 97 mg/dL 75-100 SODIUM (test code = 01A) 143 mmol/L 136-145 POTASSIUM (test code = 01B) 3.5 mmol/L 3.6-5.1 CHLORIDE (test code = 04A) 108 mmol/L 98-107 CO2 (test code = 02A) 26 mmol/L 22-32 ANION GAP (test code = ANG) 12.5 mmol/L BUN (test code = 05D) 16 mg/dL 7-18 CREATININE (test code = 03E) 0.6 mg/dL 0.4-1.1 BUN/CREA (test code = BCR) 25 12-20 CALCIUM (test code = 09D) 8.3 mg/dL 8.3-9.5 CARDIAC [id number] 02:45:00 Test Item Value Reference Range Comments TROPONIN I (test code = A84) 0.059 ng/mL 0.000-0.045 CARDIAC [id number] 18:36:00 Test Item Value Reference Range Comments TROPONIN I (test code = A84) 0.059 ng/mL 0.000-0.045 CT ABDOMEN AND PELVIS WITH [id number] 15:14:52EXAM: CT abdomen and pelvis with contrastLocation: R16 INDICATION: Diffuse painCOMPARISON: CT abdomen and pelvis on 06/30/18 and 02/10/18TECHNIQUE: Axial images of the abdomen and pelvis were obtained with 96 ccOmnipaque 300 IV contrast. Coronal and sagittal reformatted images wereperformed. Creatinine is 0.8.DISCUSSION:Lower thorax: Unremarkable.Hepatobiliary: 1 cm simple left hepatic dome cyst is noted. The liver isotherwise unremarkable. No biliary ductal dilatation.Gallbladder: Unremarkable.Spleen: Unremarkable.Pancreas: Unremarkable.Kidneys: 3 right- sided and 2 left-sided punctate bilateral renal calculi areidentified. No ureteral calculi, hydronephrosis, or solid renal mass is seen.Adrenals: Unremarkable.Lymph nodes: No lymphadenopathy.Peritoneum/retroperitoneum: No intraabdominal freeair or free fluid.Vessels: Mild [...] iterative reconstruction technique.DLP: 1534 mGy-cm CTDI 28 [id number] 13:05:00 Test Item Value Reference Range Comments MAGNESIUM (test code = 48A) 1.9 mg/dL 1.8-2.4 CT HEAD W/O [id number] 12:54:16EXAM: CT head without contrastLocation: [id number]: NoneINDICATION: HeadacheTECHNIQUE: Axial images of the brain [...] size,and/or utilization of iterative reconstruction technique.DLP: 854 mGy-cm CTDI 45 mGyDRUGS OF [id number] 12:54:00 Test Item Value Reference Range Comments DRUG SCRN (test code = HDOA) URINE DRUG SCREEN This is an unconfirmed screening result and should not be used for non-medical purposes CANNABINOD (test code = 88C) POSITIVE NEGATIVE AMPHETAMINE (test code = Negative NEGATIVE 84A) BENZODIAZP (test code = 86A) POSITIVE NEGATIVE BARBITURAT (test code = 85A) Negative NEGATIVE OPIATES (test code = 92B) Negative NEGATIVE COCAINE (test code = 87A) Negative NEGATIVE PHENCYCLID (test code = 66A) Negative NEGATIVE METHADONE (test code = 64A) Negative NEGATIVE DOAH (test code = DOAH.) URINE DRUG SCREEN Cut-off values are as follows: Cannabinoids 50 ng/mL Cocaine 300 ng/mL Amphetamines 1000 ng/mL Phencyclidine 25 ng/mL Benzodiazepines 200 ng.mL Methadone 300 ng/mL Barbiturates 200 ng/mL Opiates 2000 ng/mL URINALYSIS WITH [id number] 12:46:00 Test Item Value Reference Range Comments COLOR (test code = COLU) DK YELLOW YELLOW CLARITY (test code = CLA) CLOUDY CLEAR GLUCOSE UR (test code = UA GLUCOSE) NEGATIVE NEGATIVE BILI UR (test code = BILE) 1+ NEGATIVE KETONES UR (test code = AUGUSTINE) 1+ NEGATIVE SP GRAVITY (test code = SPGR) 1.027 1.005-1.030 PH UR (test code = PH) 6.0 4.5-8.0 PROTEIN UR (test code = PU) 2+ NEGATIVE UROBIL UR (test code = UROQ) 1.0 EU/dL 0.2-1.0 NITRITE UR (test code = NITRITE) NEGATIVE NEGATIVE BLOOD UR (test code = UA BLOOD) NEGATIVE NEGATIVE LEUK ES UR (test code = LEUK) 1+ NEGATIVE WBC UR (test code = UWBC) 3 /HPF 0-5 RBC UR (test code = URBC) 0 /HPF 0-2 EPITH UR (test code = UEPC) FEW /LPF FEW BACTERIA UR (test code = UBACT) FEW /HPF NONE CAST UR (test code = CAST) /LPF NONE CRYSTAL UR (test code = CRYU) / LPF NONE MUCUS UR (test code = MUC) MANY / HPF NONE AMORPH UR (test code = SHAHEEN) / HPF NONE TRICH UR (test code = UTRICH) /HPF NONE YEAST UR (test code = UY) /HPF NONE SPERM UR (test code = USPERM) /HPF NONE URINE [id number] 12:39:00 Test Item Value Reference Range Comments PREG UR (test code = PGU) NEGATIVE NEGATIVE COMPREHENSIVE METABOLIC [id number] 12:37:00 Test Item Value Reference Range Comments GLUCOSE (test code = 06D) 107 mg/dL 75-100 SODIUM (test code = 01A) 140 mmol/L 136-145 POTASSIUM (test code = 01B) 2.8 mmol/L 3.6-5.1 CHLORIDE (test code = 04A) 98 mmol/L 98-107 CO2 (test code = 02A) 28 mmol/L 22-32 ANION GAP (test code = ANG) 16.8 mmol/L BUN (test code = 05D) 19 mg/dL 7-18 CREATININE (test code = 03E) 0.8 mg/dL 0.4-1.1 BUN/CREA (test code = BCR) 23 12-20 CALCIUM (test code = 09D) 9.6 mg/dL 8.3-9.5 BILI TOTAL (test code = 11A) 0.7 mg/dL 0.2-1.0 PROTEIN (test code = 07D) 8.0 g/dL 6.4-8.2 ALBUMIN (test code = 08D) 4.0 g/dL 3.5-4.8 GLOBULIN (test code = GLB) 4.0 g/dL 1.5-3.8 ALB/GLOB (test code = AGRR) 1.0 1.0-2.6 ALK PHOS (test code = 35A) 91 IU/L 42-121 AST (test code = 30A) 18 IU/L <=42 ALT (test code = 31A) 17 IU/L <=78 AMYLASE AND [id number] 12:34:00 Test Item Value Reference Range Comments AMYLASE (test code = 10A) 53 U/L 28-100 LIPASE (test code = 60A) 45 IU/L 73-393 TROPONIN [id number] 12:33:00 Test Item Value Reference Range Comments TROPONIN I (test code = A84) 0.087 ng/mL 0.000-0.045 [id number] 12:26:00 Test Item Value Reference Range Comments D-DIMER (test code = DDI) <200 ng/mL D-DU 0-234 D-DIMER COMMENT (test code = *Level to rule out DVT or PE: DDCOM) <235 ng/mL D-DU* CBC (INCLUDES AUTOMATED DIFFERENTIAL)2018-07-16 12:17:00 Test Item Value Reference Range Comments WBC (test code = WBC) 13.8 10\S\3/uL 4.5-11.0 RBC (test code = RBC) 4.37 10\S\6/uL 4.20-5.60 HGB (test code = HBG) 13.4 g/dL 12.0-15.5 HCT (test code = HCT) 39.4 % 35.0-44.0 MCV (test code = MCV) 90.2 fL 81.0-99.0 MCH (test code = MCH) 30.7 pg 27.0-31.0 MCHC (test code = MCHC) 34.0 g/dL 32.0-36.0 RDW (test code = RDW) 13.3 % 11.5-14.5 PLT (test code = PLT) 421 10\S\3/uL 130-400 MPV (test code = MPV) 9.6 fL 9.4-12.4 NEUTROP # (test code = NE#) 11.5 10\S\3/uL 1.6-8.0 LYMPH # (test code = LY#) 1.4 10\S\3/uL 1.1-3.5 MONOCYTE # (test code = MO#) 0.8 10\S\3/uL 0.0-1.1 EOSINOPH # (test code = EO#) 0.1 10\S\3/uL 0.0-0.7 BASOPHIL # (test code = BA#) 0.0 10\S\3/uL 0.0-0.3 IG # (test code = IG#) 0.06 10\S\3/uL 0.00-0.06 NRBC # (test code = NRBC#) 0.00 10\S\3/uL 0.00-0.01 NEUTROPH % (test code = NE%) 83.4 % 35.0-73.0 LYMPH % (test code = LY%) 10.0 % 20.0-55.0 MONO % (test code = MO%) 5.5 % 2.5-10.0 EOSINOPH % (test code = EO%) 0.6 % 0.0-5.0 BASOPHIL % (test code = BA%) 0.1 % 0.0-2.0 IG % (test code = IG%) 0.4 % 0.0-0.8 NRBC% (test code = NRBC%) 0.0 % 0.0-0.2 MANDIFF (test code = MDIFF) NO NO RBC MORPH (test code = RBCMOR) NORMAL DIRECT STREP GROUP [id number] 07:45:00 Test Item Value Reference Range Comments Culture Observations (test NO BETA HEMOLYTIC code = COB1) STREPTOCOCCUS ISOLATED Direct Exam (test code = DE1) NO STREPTOCOCCUS GROUP A ANTIGEN DETECTED THYROID PANEL/SCREEN (TSH)2018-07-01 05:50:00 Test Item Value Reference Range Comments TSH (test code = A57) 0.453 uIU/mL 0.358-3.740 CARDIAC [id number] 05:16:00 Test Item Value Reference Range Comments TROPONIN I (test code = A84) <0.015 ng/mL 0.000-0.045 BASIC METABOLIC [id number] 04:55:00 Test Item Value Reference Range Comments GLUCOSE (test code = 06D) 120 mg/dL 75-100 SODIUM (test code = 01A) 141 mmol/L 136-145 POTASSIUM (test code = 01B) 3.3 mmol/L 3.6-5.1 CHLORIDE (test code = 04A) 107 mmol/L 98-107 CO2 (test code = 02A) 25 mmol/L 22-32 ANION GAP (test code = ANG) 12.3 mmol/L BUN (test code = 05D) 13 mg/dL 7-18 CREATININE (test code = 03E) 0.8 mg/dL 0.4-1.1 BUN/CREA (test code = BCR) 17 12-20 CALCIUM (test code = 09D) 8.8 mg/dL 8.3-9.5 CBC (INCLUDES AUTOMATED DIFFERENTIAL)2018-07-01 04:44:00 Test Item Value Reference Range Comments WBC (test code = WBC) 8.1 10\S\3/uL 4.5-11.0 RBC (test code = RBC) 4.10 10\S\6/uL 4.20-5.60 HGB (test code = HBG) 12.3 g/dL 12.0-15.5 HCT (test code = HCT) 37.2 % 35.0-44.0 MCV (test code = MCV) 90.7 fL 81.0-99.0 MCH (test code = MCH) 30.0 pg 27.0-31.0 MCHC (test code = MCHC) 33.1 g/dL 32.0-36.0 RDW (test code = RDW) 13.4 % 11.5-14.5 PLT (test code = PLT) 322 10\S\3/uL 130-400 MPV (test code = MPV) 9.8 fL 9.4-12.4 NEUTROP # (test code = NE#) 6.8 10\S\3/uL 1.6-8.0 LYMPH # (test code = LY#) 1.1 10\S\3/uL 1.1-3.5 MONOCYTE # (test code = MO#) 0.2 10\S\3/uL 0.0-1.1 EOSINOPH # (test code = EO#) 0.0 10\S\3/uL 0.0-0.7 BASOPHIL # (test code = BA#) 0.0 10\S\3/uL 0.0-0.3 IG # (test code = IG#) 0.06 10\S\3/uL 0.00-0.06 NRBC # (test code = NRBC#) 0.00 10\S\3/uL 0.00-0.01 NEUTROPH % (test code = NE%) 83.8 % 35.0-73.0 LYMPH % (test code = LY%) 13.1 % 20.0-55.0 MONO % (test code = MO%) 2.2 % 2.5-10.0 EOSINOPH % (test code = EO%) 0.1 % 0.0-5.0 BASOPHIL % (test code = BA%) 0.1 % 0.0-2.0 IG % (test code = IG%) 0.7 % 0.0-0.8 NRBC% (test code = NRBC%) 0.0 % 0.0-0.2 MANDIFF (test code = MDIFF) NO NO RBC MORPH (test code = RBCMOR) NORMAL CARDIAC [id number] 21:20:00 Test Item Value Reference Range Comments TROPONIN I (test code = A84) <0.015 ng/mL 0.000-0.045 URINE [id number] 17:31:00 Test Item Value Reference Range Comments PREG UR (test code = PGU) NEGATIVE NEGATIVE U/S [id number] 13:56:23EXAMINATION: U/S GALLBLADDER.LOCATION: D4.HISTORY: Right upper quadrant pain.COMPARISON: CT abdomen 06/30/2018.TECHNIQUE: Multiple grayscale, pulse Doppler and color Doppler [...] visualized portions of abdominal aorta and IVC appear unremarkable.IMPRESSION:Gallbladder sludge with prominent CBD at 7 mm, correlate with LFTs. Please seeCT abdomen/pelvis report 06/30/[address] ABDOMEN AND PELVIS WITH [id number] 12:09:32EXAMINATION: CT ABDOMEN AND PELVIS WITH CONTRAST.LOCATION: D4.HISTORY: Diffuse abdominal pain.COMPARISON: CT abdomen/pelvis 03/09/2018 and 02/10/2018. US abdomen 02/13/2018.TECHNIQUE: CT imaging was performed of abdomen and pelvis after intravenousadministration of 100 cc of Omnipaque-300, excretory phase imaging was alsoperformed. Oral contrast material was not administered. One or more thefollowing dose reduction techniques were used: Automated exposure control,adjustment of mA and/or kV according topatient size, [...] consultation and colonoscopy.Bilateral nephrolithiasis.Atherosclerotic vascular calcifications.Arterial Blood [id number] 12:05:00 Test Item Value Reference Range Comments pH (test code = PHRT) 7.498 7.350-7.450 pCO2 (test code = PCO2RT) 31.4 mmHg 35.0-45.0 pO2 (test code = PO2RT) 81.7 mmHg 80.0-110.0 HCO3? (test code = HCO3) 24.1 mmol/L 22.0-26.0 ARIADNA (test code = ARIADNA) 2.0 mmol/L -3.0-3.0 tHb (test code = THBRT) 13.7 g/dL 12.0-15.5 sO2 (test code = SO2RT) 96.1 % 92.0-100.0 FO2Hb (test code = RE3WNSA) 94.4 % 94.0-100.0 FCOHb (test code = FCOHBRT) 0.6 % 0.0-3.0 FMetHb (test code = FMETHBRT) 1.1 % 0.2-0.6 ABGTEMP (test code = ABGTEMP) * Temp Corrected Values* ABGTEMP (test code = ABGTEMP.) 37.0 ?C pH (T) (test code = PHTEMP) 7.498 7.350-7.450 pCO2 (T) (test code = YYY9YPCU) 31.4 mmHg 35.0-45.0 pO2 (T) (test code = PV5XGAS) 81.7 mmHg 80.0-110.0 Device (test code = DEVICE) ROOM AIR FI02 (test code = FI02) 21.0 % Liter_flow (test code = LF) VENPAR (test code = VENPAR) * Ventilator Parameters * SIMV (test code = SIMV) A/C (test code = A/C) CPAP (test code = CPAP) PEEP (test code = PEEP) PS (test code = PS) PIP (test code = PIP) I_Time (test code = ITIME) Vt (test code = VT) BIPAP INSP (test code = BIPAPINP) BIPAP EXP (test code = BIPAPEXP) Sandro test (test code = ATEST) Positive SAMPLE SITE (test code = SSITE) Right Radial Artery COMMENT (test code = CO) URINALYSIS WITH [id number] 11:20:00 Test Item Value Reference Range Comments COLOR (test code = COLU) YELLOW YELLOW CLARITY (test code = CLA) CLOUDY CLEAR GLUCOSE UR (test code = UA GLUCOSE) NEGATIVE NEGATIVE BILI UR (test code = BILE) NEGATIVE NEGATIVE KETONES UR (test code = AUGUSTINE) 2+ NEGATIVE SP GRAVITY (test code = SPGR) 1.019 1.005-1.030 PH UR (test code = PH) 7.5 4.5-8.0 PROTEIN UR (test code = PU) 1+ NEGATIVE UROBIL UR (test code = UROQ) 2.0 EU/dL 0.2-1.0 NITRITE UR (test code = NITRITE) NEGATIVE NEGATIVE BLOOD UR (test code = UA BLOOD) NEGATIVE NEGATIVE LEUK ES UR (test code = LEUK) NEGATIVE NEGATIVE WBC UR (test code = UWBC) 1 /HPF 0-5 RBC UR (test code = URBC) 0 /HPF 0-2 EPITH UR (test code = UEPC) FEW /LPF FEW BACTERIA UR (test code = UBACT) MANY /HPF NONE CAST UR (test code = CAST) /LPF NONE CRYSTAL UR (test code = CRYU) / LPF NONE MUCUS UR (test code = MUC) / HPF NONE AMORPH UR (test code = SHAHEEN) / HPF NONE TRICH UR (test code = UTRICH) /HPF NONE YEAST UR (test code = UY) /HPF NONE SPERM UR (test code = USPERM) /HPF NONE BRAIN NATRIURETIC [id number] 10:57:00 Test Item Value Reference Range Comments proBNP (test code = PBNP) 436 pg/mL 0-125 COMPREHENSIVE METABOLIC [id number] 10:56:00 Test Item Value Reference Range Comments GLUCOSE (test code = 06D) 103 mg/dL 75-100 SODIUM (test code = 01A) 144 mmol/L 136-145 POTASSIUM (test code = 01B) 2.9 mmol/L 3.6-5.1 CHLORIDE (test code = 04A) 109 mmol/L 98-107 CO2 (test code = 02A) 25 mmol/L 22-32 ANION GAP (test code = ANG) 12.9 mmol/L BUN (test code = 05D) 10 mg/dL 7-18 CREATININE (test code = 03E) 0.6 mg/dL 0.4-1.1 BUN/CREA (test code = BCR) 16 12-20 CALCIUM (test code = 09D) 8.8 mg/dL 8.3-9.5 BILI TOTAL (test code = 11A) 0.4 mg/dL 0.2-1.0 PROTEIN (test code = 07D) 7.0 g/dL 6.4-8.2 ALBUMIN (test code = 08D) 3.3 g/dL 3.5-4.8 GLOBULIN (test code = GLB) 3.7 g/dL 1.5-3.8 ALB/GLOB (test code = AGRR) 0.9 1.0-2.6 ALK PHOS (test code = 35A) 76 IU/L 42-121 AST (test code = 30A) 22 IU/L <=42 ALT (test code = 31A) 19 IU/L <=78 [id number] 10:51:00 Test Item Value Reference Range Comments CPK (test code = 32A) 129 IU/L 26-192 AMYLASE AND [id number] 10:51:00 Test Item Value Reference Range Comments AMYLASE (test code = 10A) 23 U/L 28-100 LIPASE (test code = 60A) 51 IU/L 73-393 TROPONIN [id number] 10:50:00 Test Item Value Reference Range Comments TROPONIN I (test code = A84) <0.015 ng/mL 0.000-0.045 PRO TIME AND [id number] 10:47:00 Test Item Value Reference Range Comments PT (test code = TT) 12.4 s 9.8-13.6 INR (test code = INR) 1.1 INRH (test code = INRH) SUGGESTED THERAPEUTIC RANGE FOR INR: 2.5 - 3.5 For Patients with Prosthetic Valves or Patients with recurrent Thromboembolic Events 2.0 - 3.0 For Most Other Applications PTT (test code = PTT) 28.4 s 20.2-38.0 PTTH (test code = PTTH) To monitor the effectiveness of heparin, we offer the Anti-Xa (Heparin Assay). It can be used for either unfractionated or LMW Heparin. Order Code is ANTI-XA [id number] 10:47:00 Test Item Value Reference Range Comments D-DIMER (test code = DDI) 209 ng/mL D-DU 0-234 D-DIMER COMMENT (test code = *Level to rule out DVT or PE: DDCOM) <235 ng/mL D-DU* DIRECT INFLUENZA A AND B [id number] 10:45:00 Test Item Value Reference Range Comments Direct Exam (test code = PRESUMPTIVE NEGATIVE FOR THE DE1) PRESENCE OF INFLUENZA ANTIGEN XR CHEST 2 [id number] 10:41:59Exam: Chest x-ray 2 viewsHISTORY: Persistent coughLocation: [id number]:The heart size is normal and lung holcomb are clear. Osseous structures areintact.IMPRESSION:1. Normal chest. No change since CB (INCLUDES AUTOMATED DIFFERENTIAL)2018-06-30 10:40:00 Test Item Value Reference Range Comments WBC (test code = WBC) 7.3 10\S\3/uL 4.5-11.0 RBC (test code = RBC) 3.81 10\S\6/uL 4.20-5.60 HGB (test code = HBG) 11.7 g/dL 12.0-15.5 HCT (test code = HCT) 33.5 % 35.0-44.0 MCV (test code = MCV) 87.9 fL 81.0-99.0 MCH (test code = MCH) 30.7 pg 27.0-31.0 MCHC (test code = MCHC) 34.9 g/dL 32.0-36.0 RDW (test code = RDW) 13.1 % 11.5-14.5 PLT (test code = PLT) 304 10\S\3/uL 130-400 MPV (test code = MPV) 9.8 fL 9.4-12.4 NEUTROP # (test code = NE#) 5.5 10\S\3/uL 1.6-8.0 LYMPH # (test code = LY#) 1.2 10\S\3/uL 1.1-3.5 MONOCYTE # (test code = MO#) 0.4 10\S\3/uL 0.0-1.1 EOSINOPH # (test code = EO#) 0.1 10\S\3/uL 0.0-0.7 BASOPHIL # (test code = BA#) 0.0 10\S\3/uL 0.0-0.3 IG # (test code = IG#) 0.02 10\S\3/uL 0.00-0.06 NRBC # (test code = NRBC#) 0.00 10\S\3/uL 0.00-0.01 NEUTROPH % (test code = NE%) 75.9 % 35.0-73.0 LYMPH % (test code = LY%) 16.0 % 20.0-55.0 MONO % (test code = MO%) 5.9 % 2.5-10.0 EOSINOPH % (test code = EO%) 1.4 % 0.0-5.0 BASOPHIL % (test code = BA%) 0.5 % 0.0-2.0 IG % (test code = IG%) 0.3 % 0.0-0.8 NRBC% (test code = NRBC%) 0.0 % 0.0-0.2 MANDIFF (test code = MDIFF) NO NO RBC MORPH (test code = RBCMOR) NORMAL [id number] 14:47:00 Test Item Value Reference Range Comments COLOR (test code = COLU) YELLOW YELLOW CLARITY (test code = CLA) CLEAR CLEAR GLUCOSE UR (test code = UA GLUCOSE) NEGATIVE NEGATIVE BILI UR (test code = BILE) NEGATIVE NEGATIVE KETONES UR (test code = AUGUSTINE) NEGATIVE NEGATIVE SP GRAVITY (test code = SPGR) 1.010 1.005-1.030 PH UR (test code = PH) 6.0 4.5-8.0 PROTEIN UR (test code = PU) NEGATIVE NEGATIVE UROBIL UR (test code = UROQ) 0.2 EU/dL 0.2-1.0 NITRITE UR (test code = NITRITE) NEGATIVE NEGATIVE BLOOD UR (test code = UA BLOOD) NEGATIVE NEGATIVE LEUK ES UR (test code = LEUK) NEGATIVE NEGATIVE XR FOOT RIGHT COMPLETE 3 [id number] 14:27:27Right foot, 3 viewsLocation Code: [id number] HISTORY: [id number]: PainCOMMENTS: AP, lateral, and oblique views of the right foot demonstrate noacute fracture or malalignment. Dorsal soft tissue swelling noted.IMPRESSION: No acute osseous radiographic abnormality. Dorsal soft tissueswelling.CT ABDOMEN AND PELVIS WITH [id number] 13:38:45CT abdomen and pelvis with contrastLocation Code: [id number] HISTORY: Abdominal painCOMPARISON: 02/10/2018Technique: Helical CT of [...] fluid collection or free air.CT HEAD W/O [id number] 13:19:29CT brain without contrast.Location code: [id number] HISTORY: R51: HEADACHE COMPARISON: None.TECHNIQUE: Routine unenhanced [...] aerated. IMPRESSION: No acute intracranial abnormality.AMYLASE AND [id number] 13:05:00 Test Item Value Reference Range Comments AMYLASE (test code = 10A) 36 U/L 28-100 LIPASE (test code = 60A) 67 IU/L 73-393 COMPREHENSIVE METABOLIC [id number] 13:05:00 Test Item Value Reference Range Comments GLUCOSE (test code = 06D) 81 mg/dL 75-100 SODIUM (test code = 01A) 142 mmol/L 136-145 POTASSIUM (test code = 01B) 4.0 mmol/L 3.6-5.1 CHLORIDE (test code = 04A) 111 mmol/L 98-107 CO2 (test code = 02A) 25 mmol/L 22-32 ANION GAP (test code = ANG) 10.0 mmol/L BUN (test code = 05D) 9 mg/dL 7-18 CREATININE (test code = 03E) 0.7 mg/dL 0.4-1.1 BUN/CREA (test code = BCR) 13 12-20 CALCIUM (test code = 09D) 8.6 mg/dL 8.3-9.5 BILI TOTAL (test code = 11A) 0.3 mg/dL 0.2-1.0 PROTEIN (test code = 07D) 6.6 g/dL 6.4-8.2 ALBUMIN (test code = 08D) 3.0 g/dL 3.5-4.8 GLOBULIN (test code = GLB) 3.6 g/dL 1.5-3.8 ALB/GLOB (test code = AGRR) 0.8 1.0-2.6 ALK PHOS (test code = 35A) 83 IU/L 42-121 AST (test code = 30A) 12 IU/L <=42 ALT (test code = 31A) 14 IU/L <=78 [id number] 13:05:00 Test Item Value Reference Range Comments MAGNESIUM (test code = 48A) 2.1 mg/dL 1.8-2.4 SERUM [id number] 12:53:00 Test Item Value Reference Range Comments PREG SRM (test code = PGS) NEGATIVE NEGATIVE URINALYSIS WITH [id number] 12:45:00 Test Item Value Reference Range Comments COLOR (test code = COLU) YELLOW YELLOW CLARITY (test code = CLA) CLOUDY CLEAR GLUCOSE UR (test code = UA GLUCOSE) NEGATIVE NEGATIVE BILI UR (test code = BILE) NEGATIVE NEGATIVE KETONES UR (test code = AUGUSTINE) NEGATIVE NEGATIVE SP GRAVITY (test code = SPGR) 1.007 1.005-1.030 PH UR (test code = PH) 6.5 4.5-8.0 PROTEIN UR (test code = PU) NEGATIVE NEGATIVE UROBIL UR (test code = UROQ) 0.2 EU/dL 0.2-1.0 NITRITE UR (test code = NITRITE) NEGATIVE NEGATIVE BLOOD UR (test code = UA BLOOD) NEGATIVE NEGATIVE LEUK ES UR (test code = LEUK) TRACE NEGATIVE WBC UR (test code = UWBC) 3 /HPF 0-5 RBC UR (test code = URBC) 0 /HPF 0-2 EPITH UR (test code = UEPC) FEW /LPF FEW BACTERIA UR (test code = UBACT) FEW /HPF NONE CAST UR (test code = CAST) /LPF NONE CRYSTAL UR (test code = CRYU) / LPF NONE MUCUS UR (test code = MUC) / HPF NONE AMORPH UR (test code = SHAHEEN) / HPF NONE TRICH UR (test code = UTRICH) /HPF NONE YEAST UR (test code = UY) /HPF NONE SPERM UR (test code = USPERM) /HPF NONE PRO TIME AND [id number] 12:43:00 Test Item Value Reference Range Comments PT (test code = TT) 11.9 s 9.8-13.6 INR (test code = INR) 1.0 INRH (test code = INRH) SUGGESTED THERAPEUTIC RANGE FOR INR: 2.5 - 3.5 For Patients with Prosthetic Valves or Patients with recurrent Thromboembolic Events 2.0 - 3.0 For Most Other Applications PTT (test code = PTT) 28.0 s 20.2-38.0 PTTH (test code = PTTH) To monitor the effectiveness of heparin, we offer the Anti-Xa (Heparin Assay). It can be used for either unfractionated or LMW Heparin. Order Code is ANTI-XA CBC (INCLUDES AUTOMATED DIFFERENTIAL)2018-03-09 12:40:00 Test Item Value Reference Range Comments WBC (test code = WBC) 8.8 10\S\3/uL 4.5-11.0 RBC (test code = RBC) 3.09 10\S\6/uL 4.20-5.60 HGB (test code = HBG) 9.5 g/dL 12.0-15.5 HCT (test code = HCT) 30.0 % 35.0-44.0 MCV (test code = MCV) 97.1 fL 81.0-99.0 MCH (test code = MCH) 30.7 pg 27.0-31.0 MCHC (test code = MCHC) 31.7 g/dL 32.0-36.0 RDW (test code = RDW) 14.9 % 11.5-14.5 PLT (test code = PLT) 283 10\S\3/uL 130-400 MPV (test code = MPV) 8.8 fL 9.4-12.4 NEUTROP # (test code = NE#) 5.3 10\S\3/uL 1.6-8.0 LYMPH # (test code = LY#) 2.4 10\S\3/uL 1.1-3.5 MONOCYTE # (test code = MO#) 0.7 10\S\3/uL 0.0-1.1 EOSINOPH # (test code = EO#) 0.3 10\S\3/uL 0.0-0.7 BASOPHIL # (test code = BA#) 0.0 10\S\3/uL 0.0-0.3 IG # (test code = IG#) 0.02 10\S\3/uL 0.00-0.06 NRBC # (test code = NRBC#) 0.00 10\S\3/uL 0.00-0.01 NEUTROPH % (test code = NE%) 59.8 % 35.0-73.0 LYMPH % (test code = LY%) 27.4 % 20.0-55.0 MONO % (test code = MO%) 8.2 % 2.5-10.0 EOSINOPH % (test code = EO%) 3.9 % 0.0-5.0 BASOPHIL % (test code = BA%) 0.5 % 0.0-2.0 IG % (test code = IG%) 0.2 % 0.0-0.8 NRBC% (test code = NRBC%) 0.0 % 0.0-0.2 MANDIFF (test code = MDIFF) NO NO RBC MORPH (test code = RBCMOR) NORMAL BLOOD [id number] 07:45:00 Test Item Value Reference Range Comments Culture Observations (test code = NO GROWTH AFTER 5 DAYS COB1) URINE [id number] 07:24:00 Test Item Value Reference Range Comments Isolate 1 (test code = ISO1) Rhodotorula glutinis/mucilaginosa CBC (INCLUDES AUTOMATED DIFFERENTIAL)2018-02-15 06:29:00 Test Item Value Reference Range Comments WBC (test code = WBC) 10.5 10\S\3/uL 4.5-11.0 RBC (test code = RBC) 2.76 10\S\6/uL 4.20-5.60 HGB (test code = HBG) 8.6 g/dL 12.0-15.5 HCT (test code = HCT) 26.4 % 35.0-44.0 MCV (test code = MCV) 95.7 fL 81.0-99.0 MCH (test code = MCH) 31.2 pg 27.0-31.0 MCHC (test code = MCHC) 32.6 g/dL 32.0-36.0 RDW (test code = RDW) 14.2 % 11.5-14.5 PLT (test code = PLT) 378 10\S\3/uL 130-400 MPV (test code = MPV) 10.0 fL 9.4-12.4 NEUTROP # (test code = NE#) 6.9 10\S\3/uL 1.6-8.0 LYMPH # (test code = LY#) 2.4 10\S\3/uL 1.1-3.5 MONOCYTE # (test code = MO#) 0.8 10\S\3/uL 0.0-1.1 EOSINOPH # (test code = EO#) 0.2 10\S\3/uL 0.0-0.7 BASOPHIL # (test code = BA#) 0.1 10\S\3/uL 0.0-0.3 IG # (test code = IG#) 0.16 10\S\3/uL 0.00-0.06 NRBC # (test code = NRBC#) 0.00 10\S\3/uL 0.00-0.01 NEUTROPH % (test code = NE%) 65.8 % 35.0-73.0 LYMPH % (test code = LY%) 22.9 % 20.0-55.0 MONO % (test code = MO%) 7.5 % 2.5-10.0 EOSINOPH % (test code = EO%) 1.8 % 0.0-5.0 BASOPHIL % (test code = BA%) 0.5 % 0.0-2.0 IG % (test code = IG%) 1.5 % 0.0-0.8 NRBC% (test code = NRBC%) 0.0 % 0.0-0.2 MANDIFF (test code = MDIFF) NO NO RBC MORPH (test code = RBCMOR) NORMAL [id number] 06:25:00 Test Item Value Reference Range Comments MAGNESIUM (test code = 48A) 1.5 mg/dL 1.8-2.4 BASIC METABOLIC [id number] 06:16:00 Test Item Value Reference Range Comments GLUCOSE (test code = 06D) 98 mg/dL 75-100 SODIUM (test code = 01A) 145 mmol/L 136-145 POTASSIUM (test code = 01B) 3.2 mmol/L 3.6-5.1 CHLORIDE (test code = 04A) 115 mmol/L 98-107 CO2 (test code = 02A) 21 mmol/L 22-32 ANION GAP (test code = ANG) 12.2 mmol/L BUN (test code = 05D) 3 mg/dL 7-18 CREATININE (test code = 03E) 0.5 mg/dL 0.4-1.1 BUN/CREA (test code = BCR) 7 12-20 CALCIUM (test code = 09D) 7.6 mg/dL 8.3-9.5 NM HIDA SCAN W/ EJECTION [id number] 18:10:25HIDA scanLocation code: [id number] history: Right upper quadrant painComments: Following the [...] minutes.Impression:1. No evidence of acute cholecystitis.BASIC METABOLIC [id number] 04:35:00 Test Item Value Reference Range Comments GLUCOSE (test code = 06D) 107 mg/dL 75-100 SODIUM (test code = 01A) 144 mmol/L 136-145 POTASSIUM (test code = 01B) 3.3 mmol/L 3.6-5.1 CHLORIDE (test code = 04A) 115 mmol/L 98-107 CO2 (test code = 02A) 20 mmol/L 22-32 ANION GAP (test code = ANG) 12.3 mmol/L BUN (test code = 05D) 4 mg/dL 7-18 CREATININE (test code = 03E) 0.6 mg/dL 0.4-1.1 BUN/CREA (test code = BCR) 7 12-20 CALCIUM (test code = 09D) 7.9 mg/dL 8.3-9.5 CBC (INCLUDES AUTOMATED DIFFERENTIAL)2018-02-14 04:25:00 Test Item Value Reference Range Comments WBC (test code = WBC) 14.0 10\S\3/uL 4.5-11.0 RBC (test code = RBC) 3.22 10\S\6/uL 4.20-5.60 HGB (test code = HBG) 9.7 g/dL 12.0-15.5 HCT (test code = HCT) 30.8 % 35.0-44.0 MCV (test code = MCV) 95.7 fL 81.0-99.0 MCH (test code = MCH) 30.1 pg 27.0-31.0 MCHC (test code = MCHC) 31.5 g/dL 32.0-36.0 RDW (test code = RDW) 14.2 % 11.5-14.5 PLT (test code = PLT) 436 10\S\3/uL 130-400 MPV (test code = MPV) 9.8 fL 9.4-12.4 NEUTROP # (test code = NE#) 10.1 10\S\3/uL 1.6-8.0 LYMPH # (test code = LY#) 2.5 10\S\3/uL 1.1-3.5 MONOCYTE # (test code = MO#) 1.0 10\S\3/uL 0.0-1.1 EOSINOPH # (test code = EO#) 0.1 10\S\3/uL 0.0-0.7 BASOPHIL # (test code = BA#) 0.0 10\S\3/uL 0.0-0.3 IG # (test code = IG#) 0.29 10\S\3/uL 0.00-0.06 NRBC # (test code = NRBC#) 0.00 10\S\3/uL 0.00-0.01 NEUTROPH % (test code = NE%) 72.2 % 35.0-73.0 LYMPH % (test code = LY%) 17.7 % 20.0-55.0 MONO % (test code = MO%) 7.1 % 2.5-10.0 EOSINOPH % (test code = EO%) 0.6 % 0.0-5.0 BASOPHIL % (test code = BA%) 0.3 % 0.0-2.0 IG % (test code = IG%) 2.1 % 0.0-0.8 NRBC% (test code = NRBC%) 0.0 % 0.0-0.2 MANDIFF (test code = MDIFF) NO NO RBC MORPH (test code = RBCMOR) NORMAL LACTIC [id number] 17:33:00 Test Item Value Reference Range Comments LACTIC ACD (test code = LA) 1.8 mmol/L 0.4-2.0 U/S [id number] 15:35:17LOCATION: [id number]: 47-year-old female with nausea and vomiting.COMMENT:Sonographic imaging [...] appearance of the abdomen is unremarkable.BASIC METABOLIC [id number] 07:27:00 Test Item Value Reference Range Comments GLUCOSE (test code = 06D) 98 mg/dL 75-100 SODIUM (test code = 01A) 145 mmol/L 136-145 POTASSIUM (test code = 01B) 3.2 mmol/L 3.6-5.1 CHLORIDE (test code = 04A) 116 mmol/L 98-107 CO2 (test code = 02A) 18 mmol/L 22-32 ANION GAP (test code = ANG) 14.2 mmol/L BUN (test code = 05D) 8 mg/dL 7-18 CREATININE (test code = 03E) 0.6 mg/dL 0.4-1.1 BUN/CREA (test code = BCR) 14 12-20 CALCIUM (test code = 09D) 7.9 mg/dL 8.3-9.5 CBC (INCLUDES AUTOMATED DIFFERENTIAL)2018-02-13 06:22:00 Test Item Value Reference Range Comments WBC (test code = WBC) 15.0 10\S\3/uL 4.5-11.0 RBC (test code = RBC) 2.91 10\S\6/uL 4.20-5.60 HGB (test code = HBG) 8.8 g/dL 12.0-15.5 HCT (test code = HCT) 27.3 % 35.0-44.0 MCV (test code = MCV) 93.8 fL 81.0-99.0 MCH (test code = MCH) 30.2 pg 27.0-31.0 MCHC (test code = MCHC) 32.2 g/dL 32.0-36.0 RDW (test code = RDW) 14.1 % 11.5-14.5 PLT (test code = PLT) 380 10\S\3/uL 130-400 MPV (test code = MPV) 9.9 fL 9.4-12.4 NEUTROP # (test code = NE#) 10.4 10\S\3/uL 1.6-8.0 LYMPH # (test code = LY#) 3.0 10\S\3/uL 1.1-3.5 MONOCYTE # (test code = MO#) 1.2 10\S\3/uL 0.0-1.1 EOSINOPH # (test code = EO#) 0.1 10\S\3/uL 0.0-0.7 BASOPHIL # (test code = BA#) 0.0 10\S\3/uL 0.0-0.3 IG # (test code = IG#) 0.31 10\S\3/uL 0.00-0.06 NRBC # (test code = NRBC#) 0.00 10\S\3/uL 0.00-0.01 NEUTROPH % (test code = NE%) 69.2 % 35.0-73.0 LYMPH % (test code = LY%) 19.9 % 20.0-55.0 MONO % (test code = MO%) 8.1 % 2.5-10.0 EOSINOPH % (test code = EO%) 0.5 % 0.0-5.0 BASOPHIL % (test code = BA%) 0.2 % 0.0-2.0 IG % (test code = IG%) 2.1 % 0.0-0.8 NRBC% (test code = NRBC%) 0.0 % 0.0-0.2 MANDIFF (test code = MDIFF) NO NO RBC MORPH (test code = RBCMOR) NORMAL URINALYSIS WITH [id number] 23:20:00 Test Item Value Reference Range Comments COLOR (test code = COLU) YELLOW YELLOW CLARITY (test code = CLA) HAZY CLEAR GLUCOSE UR (test code = UA GLUCOSE) NEGATIVE NEGATIVE BILI UR (test code = BILE) NEGATIVE NEGATIVE KETONES UR (test code = AUGUSTINE) TRACE NEGATIVE SP GRAVITY (test code = SPGR) 1.019 1.005-1.030 PH UR (test code = PH) 6.0 4.5-8.0 PROTEIN UR (test code = PU) 1+ NEGATIVE UROBIL UR (test code = UROQ) 0.2 EU/dL 0.2-1.0 NITRITE UR (test code = NITRITE) NEGATIVE NEGATIVE BLOOD UR (test code = UA BLOOD) NEGATIVE NEGATIVE LEUK ES UR (test code = LEUK) 1+ NEGATIVE WBC UR (test code = UWBC) 8 /HPF 0-5 RBC UR (test code = URBC) 2 /HPF 0-2 EPITH UR (test code = UEPC) MODERATE /LPF FEW BACTERIA UR (test code = UBACT) MODERATE /HPF NONE CAST UR (test code = CAST) /LPF NONE CRYSTAL UR (test code = CRYU) / LPF NONE MUCUS UR (test code = MUC) FEW / HPF NONE AMORPH UR (test code = SHAHEEN) / HPF NONE TRICH UR (test code = UTRICH) /HPF NONE YEAST UR (test code = UY) FEW /HPF NONE SPERM UR (test code = USPERM) /HPF NONE XR CHEST 1 VIEW [id number] 16:08:04HISTORY: DyspneaLocation code: [id number] 10 February 2018FINDINGS: Frontal view of the chest demonstrates normal cardiomediastinalsilhouette. The trachea is midline. Minimal bibasilar atelectasis. Thelungsare otherwise clear. There is no effusion or pneumothorax. The bones areintact.IMPRESSION: Minimal bibasilar atelectasis.CLOSTRIDIUM DIFFICILE [id number] 11:11:00 Test Item Value Reference Range Comments Direct Exam (test code = NO CLOSTRIDIUM DIFFICILE TOXIN DE1) A/B DETECTED CBC WITH MANUAL [id number] 07:39:00 Test Item Value Reference Range Comments WBC (test code = WBC) 25.4 10\S\3/uL 4.5-11.0 RBC (test code = RBC) 3.39 10\S\6/uL 4.20-5.60 HGB (test code = HBG) 10.3 g/dL 12.0-15.5 HCT (test code = HCT) 31.3 % 35.0-44.0 MCV (test code = MCV) 92.3 fL 81.0-99.0 MCH (test code = MCH) 30.4 pg 27.0-31.0 MCHC (test code = 32.9 g/dL 32.0-36.0 MCHC) RDW (test code = RDW) 14.2 % 11.5-14.5 PLT (test code = PLT) 479 10\S\3/uL 130-400 MPV (test code = MPV) 9.8 fL 9.4-12.4 NEUTROP # (test code 20.8 10\S\3/uL 1.6-8.0 = NE#) LYMPH # (test code = 2.2 10\S\3/uL 1.1-3.5 LY#) MONOCYTE # (test code 1.2 10\S\3/uL 0.0-1.1 = MO#) EOSINOPH # (test code 0.0 10\S\3/uL 0.0-0.7 = EO#) BASOPHIL # (test code 0.1 10\S\3/uL 0.0-0.3 = BA#) IG # (test code = 1.13 10\S\3/uL 0.00-0.06 IG#) NRBC # (test code = 0.00 10\S\3/uL 0.00-0.01 NRBC#) NEUTROPH % (test code 82.0 % 35.0-73.0 = NE%) LYMPH % (test code = 8.6 % 20.0-55.0 LY%) MONO % (test code = 4.6 % 2.5-10.0 MO%) EOSINOPH % (test code 0.0 % 0.0-5.0 = EO%) BASOPHIL % (test code 0.3 % 0.0-2.0 = BA%) IG % (test code = 4.5 % 0.0-0.8 IG%) NRBC% (test code = 0.0 % 0.0-0.2 NRBC%) MAN DIFF (test code = MANUAL HMDIFF) DIFFERENTIAL SEG (test code = SEG) 82 % 42-75 1+ Hyperse gmented Neutrophils BAND (test code = 2 % 0-8 BAND) LYMPH (test code = 8 % 20-51 LYMPH) MONO (test code = 4 % 3-11 MONO) EOS (test code = EOS) 0 % 0-10 BASO (test code = 0 % 0-2 BASO) META (test code = 4 % <=1 META) RBC MORPH (test code NORMAL NORMAL = RBCMORN) PLT EST (test code = ADEQUATE ADEQUATE PLTEST) PLT MORPH (test code NORMAL (1.5-3 um) NORMAL Few large plts = PLTMOR) BASIC METABOLIC [id number] 06:01:00 Test Item Value Reference Range Comments GLUCOSE (test code = 06D) 104 mg/dL 75-100 SODIUM (test code = 01A) 144 mmol/L 136-145 POTASSIUM (test code = 01B) 3.2 mmol/L 3.6-5.1 CHLORIDE (test code = 04A) 114 mmol/L 98-107 CO2 (test code = 02A) 17 mmol/L 22-32 ANION GAP (test code = ANG) 16.2 mmol/L BUN (test code = 05D) 11 mg/dL 7-18 CREATININE (test code = 03E) 0.8 mg/dL 0.4-1.1 BUN/CREA (test code = BCR) 14 12-20 CALCIUM (test code = 09D) 8.8 mg/dL 8.3-9.5 CBC WITH MANUAL [id number] 07:18:00 Test Item Value Reference Range Comments WBC (test code = WBC) 19.5 10\S\3/uL 4.5-11.0 RBC (test code = RBC) 3.19 10\S\6/uL 4.20-5.60 HGB (test code = HBG) 9.9 g/dL 12.0-15.5 HCT (test code = HCT) 29.5 % 35.0-44.0 MCV (test code = MCV) 92.5 fL 81.0-99.0 MCH (test code = MCH) 31.0 pg 27.0-31.0 MCHC (test code = MCHC) 33.6 g/dL 32.0-36.0 RDW (test code = RDW) 13.8 % 11.5-14.5 PLT (test code = PLT) 435 10\S\3/uL 130-400 MPV (test code = MPV) 9.7 fL 9.4-12.4 NEUTROP # (test code = NE#) 15.1 10\S\3/uL 1.6-8.0 LYMPH # (test code = LY#) 1.8 10\S\3/uL 1.1-3.5 MONOCYTE # (test code = MO#) 1.0 10\S\3/uL 0.0-1.1 EOSINOPH # (test code = EO#) 0.0 10\S\3/uL 0.0-0.7 BASOPHIL # (test code = BA#) 0.1 10\S\3/uL 0.0-0.3 IG # (test code = IG#) 1.50 10\S\3/uL 0.00-0.06 NRBC # (test code = NRBC#) 0.00 10\S\3/uL 0.00-0.01 NEUTROPH % (test code = NE%) 77.6 % 35.0-73.0 LYMPH % (test code = LY%) 9.0 % 20.0-55.0 MONO % (test code = MO%) 5.3 % 2.5-10.0 EOSINOPH % (test code = EO%) 0.0 % 0.0-5.0 BASOPHIL % (test code = BA%) 0.4 % 0.0-2.0 IG % (test code = IG%) 7.7 % 0.0-0.8 NRBC% (test code = NRBC%) 0.0 % 0.0-0.2 MAN DIFF (test code = HMDIFF) MANUAL DIFFERENTIAL SEG (test code = SEG) 85 % 42-75 BAND (test code = BAND) 0 % 0-8 LYMPH (test code = LYMPH) 11 % 20-51 MONO (test code = MONO) 4 % 3-11 EOS (test code = EOS) 0 % 0-10 BASO (test code = BASO) 0 % 0-2 RBC MORPH (test code = RBCMORN) ABNORMAL NORMAL PLT EST (test code = PLTEST) INCREASED ADEQUATE PLT MORPH (test code = PLTMOR) NORMAL (1.5-3 um) NORMAL ANISO (test code = ANISO) 1+ NONE HYPOCHROM (test code = HYPOC) 1+ NONE MICROCYTIC (test code = MICRO) 1+ NONE BASIC METABOLIC [id number] 05:48:00 Test Item Value Reference Range Comments GLUCOSE (test code = 06D) 114 mg/dL 75-100 SODIUM (test code = 01A) 148 mmol/L 136-145 POTASSIUM (test code = 01B) 3.2 mmol/L 3.6-5.1 CHLORIDE (test code = 04A) 119 mmol/L 98-107 CO2 (test code = 02A) 18 mmol/L 22-32 ANION GAP (test code = ANG) 14.2 mmol/L BUN (test code = 05D) 17 mg/dL 7-18 CREATININE (test code = 03E) 0.8 mg/dL 0.4-1.1 BUN/CREA (test code = BCR) 20 12-20 CALCIUM (test code = 09D) 8.8 mg/dL 8.3-9.5 MRI BRAIN W/O [id number] 18:15:41LOCATION: A1EXAM: MRI BRAIN W/O CONTRASTINDICATION: R51: [...] acute stroke. No acute abnormality.XR CENTRAL LINE [id number] 16:06:23EXAMINATION: NON- TUNNELED CENTRAL VENOUS CATHETER PLACEMENT.LOCATION: D4.HISTORY: The her central venous accessSEDATION: The patient did not require conscious sedation for the procedure.ANTIBIOTICS: None. Not indicated.TECHNIQUE: The risks, benefits, and alternatives were discussed and informedconsent was obtained. Prior to beginning the procedure, [place] Protocol wasused to confirm the patient's identity [...] tip centrallylocated. No complications are seen.IMPRESSION: Successful non-tunneled triple lumen central venous catheterplacement via the right internal jugular vein.PLAN: The catheter is ready for immediate use. When treatment is completed,this catheter can be removed at the bedside according to standard hospitalprotocol.U/S [id number] 16:06:23EXAMINATION: NON-TUNNELED CENTRAL VENOUS CATHETER PLACEMENT.LOCATION: D4.HISTORY: The her central venous accessSEDATION: The patient did not require conscious sedation for the procedure.ANTIBIOTICS: None. Not indicated.TECHNIQUE: The risks, benefits, and alternatives were discussed and informedconsent was obtained. Prior to beginning the procedure, [place] Protocol wasused to confirm the patient's identity [...] tip centrallylocated. No complications are seen.IMPRESSION: Successful non-tunneled triple lumen central venous catheterplacement via the right internal jugular vein.PLAN: The catheter is ready for immediate use. When treatment is completed,this catheter can be removed at the bedside according to standard hospitalprotocol.CT ABDOMEN AND PELVIS WITH AND WITHOUT [id number] 15:59:28 Exam: CT abdomen and pelvis with and without contrast.Location: D4.History: [id number]: Abdominal [id number]: VomitingTechnique: Unenhanced and enhanced spiral slices were taken from the domes ofthe diaphragm, through the pubic symphysis. Coronal reformations wereperformed. 100 cc of Omnipaque were used. One or more of the followingradiation dose reduction techniques was used: automated exposure control,adjustment of mA and/or KV according to patient size, and/or utilization ofiterative reconstruction technique.Findings:The liver is [...] enteritis.3. Nephrolithiasis.4. Small, fixed hiatalhernia.XR CHEST 1 [id number] 08:54:41Portable AP chest, 1 viewLocation Code: [id number] HISTORY: Chest painCOMPARISON: NoneCOMMENT: There is mild prominence of the central pulmonary vasculature and interstitium.Mild atelectasis is present within the lung bases. There is no lobarconsolidation or effusion. IMPRESSION: Mild central congestive changes and bibasilar atelectasis.XR ABDOMEN 1 VIEW [id number] 08:54:16Abdomen, 1 viewLocation Code: [id number] history: Lower abdominal painComments: The bowel gas pattern is unremarkable. There is no visualizedabnormal calcification. The visualized osseous structures are intact.Impression: No acute radiographic abnormality. GLUCOMETER GLUCOSE- LAB USE [id number] 07:50:00 Test Item Value Reference Range Comments GLUCOMETER (test code = GMG) 157 mg/dL 70-100 SYL ANEKelsey METERMeter ID: [id number] or: [id number] СВЕТЛАНА GAUTAM CBC WITH MANUAL [id number] 06:57:00 Test Item Value Reference Range Comments WBC (test code = WBC) 19.4 10\S\3/uL 4.5-11.0 RBC (test code = RBC) 3.66 10\S\6/uL 4.20-5.60 HGB (test code = HBG) 11.2 g/dL 12.0-15.5 HCT (test code = HCT) 34.4 % 35.0-44.0 MCV (test code = MCV) 94.0 fL 81.0-99.0 MCH (test code = MCH) 30.6 pg 27.0-31.0 MCHC (test code = MCHC) 32.6 g/dL 32.0-36.0 RDW (test code = RDW) 14.1 % 11.5-14.5 PLT (test code = PLT) 362 10\S\3/uL 130-400 MPV (test code = MPV) 10.3 fL 9.4-12.4 NEUTROP # (test code = NE#) 15.9 10\S\3/uL 1.6-8.0 LYMPH # (test code = LY#) 1.3 10\S\3/uL 1.1-3.5 MONOCYTE # (test code = MO#) 0.4 10\S\3/uL 0.0-1.1 EOSINOPH # (test code = EO#) 0.0 10\S\3/uL 0.0-0.7 BASOPHIL # (test code = BA#) 0.2 10\S\3/uL 0.0-0.3 IG # (test code = IG#) 1.65 10\S\3/uL 0.00-0.06 NRBC # (test code = NRBC#) 0.00 10\S\3/uL 0.00-0.01 NEUTROPH % (test code = NE%) 81.6 % 35.0-73.0 LYMPH % (test code = LY%) 6.9 % 20.0-55.0 MONO % (test code = MO%) 2.1 % 2.5-10.0 EOSINOPH % (test code = EO%) 0.0 % 0.0-5.0 BASOPHIL % (test code = BA%) 0.9 % 0.0-2.0 IG % (test code = IG%) 8.5 % 0.0-0.8 NRBC% (test code = NRBC%) 0.0 % 0.0-0.2 MAN DIFF (test code = HMDIFF) MANUAL DIFFERENTIAL SEG (test code = SEG) 83 % 42-75 BAND (test code = BAND) 1 % 0-8 LYMPH (test code = LYMPH) 13 % 20-51 MONO (test code = MONO) 3 % 3-11 EOS (test code = EOS) 0 % 0-10 BASO (test code = BASO) 0 % 0-2 RBC MORPH (test code = RBCMORN) ABNORMAL NORMAL PLT EST (test code = PLTEST) ADEQUATE ADEQUATE PLT MORPH (test code = PLTMOR) NORMAL (1.5-3 um) NORMAL ANISO (test code = ANISO) 1+ NONE HYPOCHROM (test code = HYPOC) 1+ NONE MACRO (test code = MACRO) 1+ NONE TROPONIN [id number] 05:58:00 Test Item Value Reference Range Comments TROPONIN I (test code = A84) <0.015 ng/mL 0.000-0.045 COMPREHENSIVE METABOLIC [id number] 05:44:00 Test Item Value Reference Range Comments GLUCOSE (test code = 06D) 157 mg/dL 75-100 SODIUM (test code = 01A) 140 mmol/L 136-145 POTASSIUM (test code = 01B) 3.7 mmol/L 3.6-5.1 CHLORIDE (test code = 04A) 113 mmol/L 98-107 CO2 (test code = 02A) 14 mmol/L 22-32 ANION GAP (test code = ANG) 16.7 mmol/L BUN (test code = 05D) 30 mg/dL 7-18 CREATININE (test code = 03E) 0.9 mg/dL 0.4-1.1 BUN/CREA (test code = BCR) 34 12-20 CALCIUM (test code = 09D) 9.0 mg/dL 8.3-9.5 BILI TOTAL (test code = 11A) 0.4 mg/dL 0.2-1.0 PROTEIN (test code = 07D) 7.9 g/dL 6.4-8.2 ALBUMIN (test code = 08D) 2.8 g/dL 3.5-4.8 GLOBULIN (test code = GLB) 5.1 g/dL 1.5-3.8 ALB/GLOB (test code = AGRR) 0.5 1.0-2.6 ALK PHOS (test code = 35A) 83 IU/L 42-121 AST (test code = 30A) 13 IU/L <=42 ALT (test code = 31A) 13 IU/L <=78 GLUCOMETER GLUCOSE- LAB USE [id number] 01:52:00 Test Item Value Reference Range Comments GLUCOMETER (test code = GMG) 110 mg/dL 70-100 Met er ID: [id number]: [id number] GAIL CIFUENTES TROPONIN [id number] 00:02:00 Test Item Value Reference Range Comments TROPONIN I (test code = A84) <0.015 ng/mL 0.000-0.045
[2019-10-07] MEDS ORDERED: MORPHINE 4 MG/ML SYR ONE ×3 (11:46→14:30)
[2019-10-07] MEDS ORDERED: NA CHLORIDE 0.9% 1,000 ML ONE ×2 (11:46→15:12)
[2019-10-07] MEDS ORDERED: ONDANSETRON 4 MG/2 ML VIAL ONE ×3 (11:46→14:30)
[2019-10-07] MEDS ORDERED: FAMOTIDINE 20 MG/2 ML VIAL IV ONE (11:46)
[2019-10-07 12:19] LABS: Absolute Lymphocytes (CBC) 0.8 K/uL (0.7-4.9); Basophils % 0.2 % (0-1.3); Hematocrit 37.3 % (36.0-45.0); Lymphocytes % 5.6 % (15.3-44.8); MPV 7.7 fL (7.6-11.3); RBC Red Blood Cell Count 3.87 M/uL (3.86-4.86)
[2019-10-07 12:33] LABS: Albumin 3.9 g/dL (3.4-5.0); Bilirubin Direct 0.2 mg/dL (0-0.2); Bilirubin Total 0.5 mg/dL (0.2-1.0); Potassium 3.1 mmol/L (3.5-5.1); Protein, Total 7.7 g/dL (6.4-8.2)
[2019-10-07 12:45] LABS: Platelet Estimate ADEQ; Urine White Blood Cell Casts OK
[2019-10-07 12:46] LABS: Blood Morphology Comment NOT SEEN (NOT SEEN)
--- NOTE | 2019-10-07 13:04 | RAD REPORT ---
EXAM DESCRIPTION: CT - Abdomen Pelvis W Contrast - 10/07/2019 12:54 pm CLINICAL HISTORY: ABD PAIN COMPARISON: Abdomen Pelvis Wo Contrast dated 05/17/2019 TECHNIQUE: Biphasic, helical CT imaging of the abdomen and pelvis was performed following 100 ml non -ionic IV contrast. Oral contrast was given. All CT scans are performed using dose optimization technique as appropriate and may include automated exposure control or mA/KV adjustment according to patient size. FINDINGS: No suspicious findings in the lung bases. The liver, spleen, and pancreas show no suspicious findings. Gallbladder and biliary tree are also wi thout suspicious finding. Left lobe liver cyst has not changed. Symmetric renal function is seen with no hydronephrosis or suspicious renal mass. No pyelonephritis o r acute parenchymal process. Nonobstructing calyx calculi are present. No adrenal abnormalities. No u rinary bladder abnormality. Uterus and ovaries show no suspicious findings. No stomach or small bowel abnormality seen. Appendix is normal. No evidence for appendicitis. Right-s james colon is unremarkable. Left-side: Shows wall thickening and edema. This is most pronounced at the descending sigmoid junction. Mild stranding in the adjacent fat. No focal mass lesions seen. No free air or pneumatosis. No other area of inflammatory stranding. Rectum does not appear to be involved. No hernia, mass or bulky lymphadenopathy. No suspicious bony findings. IMPRESSION: Nonspecific colitis pattern extending from the left-side transverse colon through the si gmoid colon. No free air, abscess or surgically emergent finding. No other significant or suspicious findings.
[2019-10-07] MEDS ORDERED: PROMETHAZINE INJ 25 MG/ML AMP ONE (13:22)
[2019-10-07] MEDS ORDERED: POTASSIUM 25 MEQ EFFERV TAB ONE (13:32)
[2019-10-07] MEDS ORDERED: METRONIDAZOLE 500mg IVPB 500 MG/100 ML BAG IV ONE (13:33)
[2019-10-07] MEDS ORDERED: CIPROFLOXACIN 400mg IV 400 MG/200 ML BAG IV ONE (13:33)
--- NOTE | 2019-10-07 14:17 | EDPHYS ---
Physician Documentation [facility] Name: Margie Garcia Age: 49 yrs Sex: Female : 1970 Arrival Date: 10/07/2019 Time: 11:23 Bed 7 Private MD: ED Physician Bobo Hidalgo HPI: 10/06 11:36 This 49 yrs old Female presents to ER via Wheelchair with complaints of cp Vomiting, Abdominal Pain. 11:36 The patient presents to the emergency department with nausea, with "dry heaves", cp vomiting, that is continuous, abdominal pain. 11:36 Onset: The symptoms/episode began/occurred this morning. Possible causes: unknown. cp Associated signs and symptoms: Pertinent positives: constipation, GI bleeding, Pertinent negatives: diarrhea, fever. Severity of symptoms: in the emergency department the symptoms are unchanged despite home interventions. 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 - Social history:: Smoking status: Patient reports the use of cigarette tobacco products, smokes one-half pack cigarettes per day, Patient/guardian denies using alcohol. ROS: 11:45 Constitutional: Negative for body aches, chills, fever. cp 11:45 Eyes: Negative for injury, pain, redness, and discharge. cp 11:45 ENT: Negative for drainage from ear(s), ear pain, sore throat, difficulty swallowing, difficulty handling secretions. 11:45 Cardiovascular: Negative for chest pain. 11:45 Respiratory: Negative for cough, shortness of breath, wheezing. 11:45 Abdomen/GI: Positive for abdominal pain, nausea and vomiting, constipation, Negative for diarrhea, hematemesis, black/tarry stool, rectal bleeding. 11:45 Neuro: Negative for altered mental status, headache, weakness. 11:45 All other systems are negative. Exam: 11:50 Constitutional: The patient appears alert, awake, non-diaphoretic, non-toxic, well cp developed, well nourished, in obvious distress, mildly distressed. 11:50 Head/Face: Normocephalic, atraumatic. cp 11:50 Eyes: Periorbital structures: appear normal, Conjunctiva: normal, no exudate, no injection, Sclera: no appreciated abnormality, Lids and lashes: appear normal, bilaterally. 11:50 ENT: External ear(s): are unremarkable, Nose: is normal, Mouth: is normal, Posterior pharynx: is normal, airway is patent. 11:50 Chest/axilla: Inspection: normal, Palpation: is normal, no crepitus, no tenderness. 11:50 Cardiovascular: Rate: normal, Rhythm: regular. 11:50 Respiratory: the patient does not display signs of respiratory distress, Respirations: normal, no use of accessory muscles, no retractions, labored breathing, is not present, Breath sounds: are clear throughout, no decreased breath sounds. 11:50 Abdomen/GI: Inspection: abdomen appears normal, Bowel sounds: active, all quadrants, Palpation: soft, in all quadrants, moderate abdominal tenderness, in all quadrants, voluntary guarding, is elicited in all quadrants. Vital Signs: 11:31 BP 170 / 112; Pulse 68; Resp 20; Temp 98.3; Pulse Ox 100% ; Weight 81.19 kg; Height 5 sv ft. 5 in. (165.10 cm); 12:19 BP 145 / 105; Pulse 72; Resp 18; Pulse Ox 100% ; sv 13:00 BP 179 / 114; Pulse 86; Resp 16; Pulse Ox 100% ; sv 14:10 BP 129 / 97; Pulse 86; Resp 16; Pulse Ox 98% ; sv 14:53 BP 186 / 118; Pulse 83; Resp 16; Pulse Ox 98% ; sv 16:03 BP 147 / 112; Pulse 87; Resp 16; Pulse Ox 98% on R/A; sv 11:31 Body Mass Index 29.79 (81.19 kg, 165.10 cm) sv MDM: 11:36 Patient medically screened. cp 12:00 Differential diagnosis: gastritis, cholecystitis, appendicitis, viral gastroenteritis, cp gastroenteritis, colitis, diverticulitis. 13:25 Data reviewed: vital signs, nurses notes, lab test result(s), radiologic studies, CT cp scan. 14:25 ED course: Patient continues to have abdominal pain and vomiting. cp 14:27 Physician consultation: Harvey Peck was called at 14:27, was contacted at 14:27, cp regarding admission, to the medical/surgical unit. patient's condition. 10/06 11:38 Order name: Basic Metabolic Panel; Complete Time: 13:01 10/06 13:01 Interpretation: Normal except: K 3.1; GLUC 155; GFR 67. 10/06 11:38 Order name: CBC with Diff; Complete Time: 13:01 10/06 13:01 Interpretation: Normal except: WBC 14.0; JARAD% 91.5; LYM% 5.6; MN% 2.7; NEUT A 12.8. 10/06 11:38 Order name: Creatinine for Radiology; Complete Time: 13: 10/06 11:38 Order name: Hepatic Function; Complete Time: 13:01 10/06 13:01 Interpretation: Normal except: ALK 161; GLOB 3.8; A/G 1.0. 10/06 11:38 Order name: Lipase; Complete Time: 13:01 10/06 11:38 Order name: Urine Microscopic Only 10/06 11:38 Order name: CT Abd/Pelvis - IV Contrast Only; Complete Time: 13:19 10/06 13:19 Interpretation: Report reviewed. 10/06 12:46 Order name: CBC Smear Scan; Complete Time: 13:01 EDMS 10/06 14:13 Order name: Urine Dipstick--Ancillary (enter results) 10/06 14:13 Order name: Urine --Ancillary (enter results) 10/06 11:38 Order name: IV Saline Lock; Complete Time: 12:09 10/06 11:38 Order name: Labs collected and sent; Complete Time: 12:09 10/06 11:38 Order name: Urine Dipstick-Ancillary (obtain specimen); Complete Time: 14:20 10/06 11:38 Order name: Urine Test (obtain specimen); Complete Time: 14:20 10/06 13:19 Order name: PO challenge; Complete Time: 14:11 cp Administered Medications: 12:08 Drug: NS 0.9% 1000 ml Route: IV; Rate: 1 bolus; Site: right forearm; sv 13:10 Follow up: Response: No adverse reaction; IV Status: Completed infusion; IV Intake: sv 1000ml 12:09 Drug: morphine 4 mg {Note: rass2.} Route: IVP; Site: right forearm; sv 13:08 Follow up: Response: No adverse reaction; Pain is unchanged, physician notified sv 12:09 Drug: Zofran (Ondansetron) 4 mg Route: IVP; Site: right forearm; sv 12:18 Follow up: Response: No adverse reaction; No change in condition sv 12:09 Drug: Pepcid 20 mg Route: IVP; Site: right forearm; sv 12:18 Follow up: Response: No adverse reaction sv 12:18 Drug: Zofran (Ondansetron) 4 mg Route: IVP; Site: right forearm; sv 13:20 Follow up: Response: No adverse reaction; No change in condition bp 13:11 Drug: morphine 4 mg Route: IVP; Site: right forearm; bp 13:20 Follow up: Response: Pain is decreased bp 13:20 Drug: Promethazine 25 mg Route: IVP; Site: right forearm; bp 13:37 Follow up: Response: Nausea is decreased bp 13:30 Drug: metroNIDAZOLE 500 mg Volume: 100 ml; Route: IVPB; Infused Over: 30 mins; Site: bp right forearm; 14:11 Follow up: Response: No adverse reaction; IV Status: Completed infusion; IV Intake: sv 100ml 14:11 Drug: Cipro 400 mg Volume: 200 ml; Route: IVPB; Infused Over: 60 mins; Site: right sv forearm; 15:10 Follow up: Response: No adverse reaction; IV Status: Completed infusion; IV Intake: sv 200ml 14:12 Drug: Potassium Effervescent Tablet 50 mEq Route: PO; sv 14:22 Follow up: Response: No adverse reaction; Vomiting increased sv 14:32 Drug: Potassium Chloride 20 mEq Route: IV; Rate: calculated rate; Site: right forearm; sv 16:54 Follow up: IV Status: Completed infusion; IV Intake: 100ml bp 14:32 Drug: Zofran (Ondansetron) 4 mg Route: IVP; Site: right forearm; sv 15:10 Follow up: Response: No adverse reaction; Marked relief of symptoms sv 14:32 Drug: morphine 4 mg {Note: rass2.} Route: IVP; Site: right forearm; sv 15:10 Follow up: Response: No adverse reaction; Marked relief of symptoms; Pain is decreased; sv RASS: Drowsy (-1) 15:10 Drug: NS 0.9% 1000 ml Route: IV; Rate: 100 ml/hr; Site: right forearm; sv 16:54 Follow up: IV Status: Infusion continued upon admission bp Disposition: 18:52 Co-signature as Attending Physician, Bobo Hidalgo MD I agree with the assessment and kdr plan of care. Disposition: 10/07/19 14:28 Hospitalization ordered by Harvey Peck for Observation. Preliminary diagnosis are Left sided colitis with unspecified complications, Nausea and vomiting - intractable. - Bed requested for Telemetry/MedSurg (observation). - Status is Observation. bp - Condition is Stable. - Problem is new. - Symptoms have improved. Signatures: Dispatcher [employer] EDKrissy Zhong RN RN sv Woody, Diana, RN RN dw Rittger, Kevin, MD MD [facility] Mike Cerrato PA PA cp Peltier, Brian RN RN Ruth To Corrections: (The following items were deleted from the chart) 14:23 14:17 10/07/2019 14:17 Discharged to Home. Impression: Left sided colitis with cp unspecified complications. Condition is Stable. Forms are Medication Reconciliation Form, Thank You Letter, Antibiotic Education, Prescription Opioid Use. Follow up: Bryan Best; When: 2 - 3 days; Reason: Recheck today's complaints. Problem is new. Symptoms have improved. cp 14:52 14:28 Hospitalization Ordered by Harvey Peck for Observation. Preliminary diagnosis eb is Left sided colitis with unspecified complications; Nausea and vomiting - intractable. Bed requested for Telemetry/MedSurg (observation). Status is Observation. Condition is Stable. Problem is new. Symptoms have improved. cp 16:35 14:52 10/07/2019 14:28 Hospitalization Ordered by Harvey Peck for Observation. dw Preliminary diagnosis is Left sided colitis with unspecified complications; Nausea and vomiting - intractable. Bed requested for Telemetry/MedSurg (observation). Status is Observation. Condition is Stable. Problem is new. Symptoms have improved. eb 17:19 16:35 10/07/2019 14:28 Hospitalization Ordered by Harvey Peck for Observation. bp Preliminary diagnosis is Left sided colitis with unspecified complications; Nausea and vomiting - intractable. Bed requested for Telemetry/MedSurg (observation). Status is Observation. Condition is Stable. Problem is new. Symptoms have improved. dw
--- NOTE | 2019-10-07 14:17 | ER ---
Nurse's Notes [facility] Name: Margie Garcia Age: 49 yrs Sex: Female : 1970 Arrival Date: 10/07/2019 Time: 11:23 Bed 7 Private MD: Diagnosis: Left sided colitis with unspecified complications;Nausea and vomiting-intractable Presentation: 10/06 11:31 Chief complaint: Patient states: abd pain/vomiting and throat burning from vomiting sv started today. Coronavirus screen: Proceed with normal triage. Patient denies a cough. Patient denies shortness of breath or difficulty breathing. Patient denies measured and/or subjective temperature greater than 100.4F prior to today's visit. Patient denies travel on a cruise ship or to a country the [facility] currently lists as an affected area. Patient denies contact with known and/or suspected case of COVID-19. Ebola Screen: No symptoms or risks identified at this time. Initial Sepsis Screen: Does the patient meet any 2 criteria? No. Patient's initial sepsis screen is negative. Does the patient have a suspected source of infection? Yes: Acute abdominal pain. Risk Assessment: Do you want to hurt yourself or someone else? Patient reports no desire to harm self or others. Onset of symptoms was October 07, 2019. 11:31 Method Of Arrival: Wheelchair sv 11:31 Acuity: BHARAT 2 sv Triage Assessment: 11:33 General: Appears in no apparent distress. uncomfortable, well developed, Behavior is sv cooperative, appropriate for age, anxious. Pain: Complains of pain in abdomen. Neuro: Level of Consciousness is awake, alert, obeys commands, Oriented to person, place, time, situation, Moves all extremities. Full function Gait is steady. Respiratory: Airway is patent Respiratory effort is even, unlabored, Respiratory pattern is regular, symmetrical. GI: Abdomen is flat, non-distended, Reports lower abdominal pain, upper abdominal pain, vomiting. Derm: Skin is pink, warm \T\ dry. Musculoskeletal: Range of motion: intact in all extremities. 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 - Social history:: Smoking status: Patient reports the use of cigarette tobacco products, smokes one-half pack cigarettes per day, Patient/guardian denies using alcohol. Screenin:34 Abuse screen: Denies threats or abuse. Denies injuries from another. Nutritional sv screening: No deficits noted. Tuberculosis screening: No symptoms or risk factors identified. Fall Risk None identified. Assessment: 11:50 Reassessment: Patient appears in no apparent distress at this time. No changes from sv previously documented assessment. Patient and/or family updated on plan of care and expected duration. Pain level reassessed. Patient is alert, oriented x 3, equal unlabored respirations, skin warm/dry/pink. 12:58 Reassessment: Patient appears in no apparent distress at this time. Patient and/or sv family updated on plan of care and expected duration. Pain level reassessed. Patient is alert, oriented x 3, equal unlabored respirations, skin warm/dry/pink. 13:20 Reassessment: Patient appears in no apparent distress at this time. Patient and/or sv family updated on plan of care and expected duration. Pain level reassessed. Patient is alert, oriented x 3, equal unlabored respirations, skin warm/dry/pink. 13:52 Reassessment: PT STATING NO RELIEF OF NAUSEA FROM PROMETHAZINE, PO CHALLENGE AND PO bp MEDS ON HOLD AT THIS TIME. 14:09 Reassessment: Patient appears in no apparent distress at this time. Patient and/or sv family updated on plan of care and expected duration. Pain level reassessed. Patient is alert, oriented x 3, equal unlabored respirations, skin warm/dry/pink. Pt attempting to drink some sprite at this time. Patient states feeling better. Patient states symptoms have improved. 14:18 Reassessment: Pt up for discharge but pt needs to finish Cipro IVPB before discharge. sv 14:22 Reassessment: Patient and/or family updated on plan of care and expected duration. Pain sv level reassessed. Patient is alert, oriented x 3, equal unlabored respirations, skin warm/dry/pink. GI: Pt is actively vomiting bile, and potassium PO that was given. Informed Core PA, medication ordered. Reports lower abdominal pain, upper abdominal pain, nausea, vomiting. 15:25 Reassessment: Dr Peck at bedside. sv 16:22 Reassessment: Called Dr Peck for admission orders, stated he was in putting them at this time. 16:50 Reassessment: Patient appears in no apparent distress at this time. Patient and/or sv family updated on plan of care and expected duration. Pain level reassessed. Patient is alert, oriented x 3, equal unlabored respirations, skin warm/dry/pink. Vital Signs: 11:31 BP 170 / 112; Pulse 68; Resp 20; Temp 98.3; Pulse Ox 100% ; Weight 81.19 kg; Height 5 sv ft. 5 in. (165.10 cm); 12:19 BP 145 / 105; Pulse 72; Resp 18; Pulse Ox 100% ; sv 13:00 BP 179 / 114; Pulse 86; Resp 16; Pulse Ox 100% ; sv 14:10 BP 129 / 97; Pulse 86; Resp 16; Pulse Ox 98% ; sv 14:53 BP 186 / 118; Pulse 83; Resp 16; Pulse Ox 98% ; sv 16:03 BP 147 / 112; Pulse 87; Resp 16; Pulse Ox 98% on R/A; sv 11:31 Body Mass Index 29.79 (81.19 kg, 165.10 cm) sv ED Course: 11:23 Patient arrived in ED. am2 11:30 Mike Cerrato PA is PHCP. cp 11:30 Bobo Hidalgo MD is Attending Physician. cp 11:31 Krissy Segal RN is Primary Nurse. sv 11:32 Triage completed. sv 11:33 Arm band placed on Patient placed in an exam room, on a stretcher, on pulse oximetry. sv 11:34 Patient has correct armband on for positive identification. Bed in low position. Call light in reach. Side rails up X 1. Pulse ox on. NIBP on. Door closed. Head of bed elevated. 11:35 Nurse Practitioner and/or Physician Advertising Agency Manager to see patient. sv 11:50 Inserted saline lock: 20 gauge in right forearm, using aseptic technique. Blood sv collected. Flushed right forearm with 5 ml normal saline. 12:19 Awaiting lab results, Awaiting CT Scan. sv 12:19 Radiology exam delayed due to lab results not completed at this time. (BUN/Creatinine) mw3 test not completed at this time. 12:54 CT completed. Patient tolerated procedure well. Patient moved back from CT. mw3 12:56 CT Abd/Pelvis - IV Contrast Only In Process Unspecified. EDMS 12:58 Awaiting radiology results. sv 14:16 Bryan Best MD is Referral Physician. cp 14:28 Harvey Peck is Hospitalizing Provider. cp 15:29 Awaiting bed assignment. sv 16:53 No provider procedures requiring assistance completed. Patient admitted, IV remains in bp place. Administered Medications: 12:08 Drug: NS 0.9% 1000 ml Route: IV; Rate: 1 bolus; Site: right forearm; sv 13:10 Follow up: Response: No adverse reaction; IV Status: Completed infusion; IV Intake: sv 1000ml 12:09 Drug: morphine 4 mg {Note: rass2.} Route: IVP; Site: right forearm; sv 13:08 Follow up: Response: No adverse reaction; Pain is unchanged, physician notified sv 12:09 Drug: Zofran (Ondansetron) 4 mg Route: IVP; Site: right forearm; sv 12:18 Follow up: Response: No adverse reaction; No change in condition sv 12:09 Drug: Pepcid 20 mg Route: IVP; Site: right forearm; sv 12:18 Follow up: Response: No adverse reaction sv 12:18 Drug: Zofran (Ondansetron) 4 mg Route: IVP; Site: right forearm; sv 13:20 Follow up: Response: No adverse reaction; No change in condition bp 13:11 Drug: morphine 4 mg Route: IVP; Site: right forearm; bp 13:20 Follow up: Response: Pain is decreased bp 13:20 Drug: Promethazine 25 mg Route: IVP; Site: right forearm; bp 13:37 Follow up: Response: Nausea is decreased bp 13:30 Drug: metroNIDAZOLE 500 mg Volume: 100 ml; Route: IVPB; Infused Over: 30 mins; Site: bp right forearm; 14:11 Follow up: Response: No adverse reaction; IV Status: Completed infusion; IV Intake: sv 100ml 14:11 Drug: Cipro 400 mg Volume: 200 ml; Route: IVPB; Infused Over: 60 mins; Site: right sv forearm; 15:10 Follow up: Response: No adverse reaction; IV Status: Completed infusion; IV Intake: sv 200ml 14:12 Drug: Potassium Effervescent Tablet 50 mEq Route: PO; sv 14:22 Follow up: Response: No adverse reaction; Vomiting increased sv 14:32 Drug: Potassium Chloride 20 mEq Route: IV; Rate: calculated rate; Site: right forearm; sv 16:54 Follow up: IV Status: Completed infusion; IV Intake: 100ml bp 14:32 Drug: Zofran (Ondansetron) 4 mg Route: IVP; Site: right forearm; sv 15:10 Follow up: Response: No adverse reaction; Marked relief of symptoms sv 14:32 Drug: morphine 4 mg {Note: rass2.} Route: IVP; Site: right forearm; sv 15:10 Follow up: Response: No adverse reaction; Marked relief of symptoms; Pain is decreased; sv RASS: Drowsy (-1) 15:10 Drug: NS 0.9% 1000 ml Route: IV; Rate: 100 ml/hr; Site: right forearm; sv 16:54 Follow up: IV Status: Infusion continued upon admission bp Intake: 13:10 IV: 1000ml; Total: 1000ml. sv 14:11 IV: 100ml; Total: 1100ml. sv 15:10 IV: 200ml; Total: 1300ml. sv 16:54 IV: 100ml; Total: 1400ml. bp Outcome: 14:17 Discharge ordered by . cp 14:28 Decision to Hospitalize by Provider. cp 16:54 Admitted to Med/surg accompanied by tech, via stretcher, room 214, with chart, Report bp called to CHARLINE ACHARYA 16:54 Condition: stable 16:54 Instructed on the need for admit. 17:19 Patient left the ED. bp Signatures: Dispatcher [employer] EDMS Krissy Segal RN RN sv Mike Cerrato PA PA cp Cynthia Koch am2 Volodymyr Callaway RN RN Oksana Dawson mw3 Corrections: (The following items were deleted from the chart) 14:52 14:32 morphine 4 mg IVP in right forearm sv sv
[2019-10-07] MEDS ORDERED: KCL 20 MEQ/100 mL IVPB 20 MEQ/100 ML BAG IV ONE (14:30)
[2019-10-07 14:42] LABS: Urine Blood TRACE (NEG); Urine Glucose NEGATIVE (NEG); Urine pH 7.5 (5.0-7.0)
[2019-10-07 14:43] LABS: Urine Protein NEGATIVE (NEG)
--- NOTE | 2019-10-07 14:55 | P.HP ---
Certification for Inpatient Patient admitted to: Observation With expected LOS: <2 Midnights Practitioner: I am a practitioner with admitting privileges, knowledge of patient current condition, hospital course, and medical plan of care. Services: Services provided to patient in accordance with Admission requirements found in Title 42 Section 412.3 of the Code of Federal Regulations Patient History Date of Service: 10/07/19 Reason for admission: Intractable nausea and vomiting History of Present Illness: 49-year-old woman with a history of hypertension and migraine headaches presented to the emergency department with a complaint of nausea and vomiting of onset 1 week ago, which has become progressively worse. She came to the ED today because she could not hold any food or drink in. She reports occasional diarrhea. Last BM was this morning which patient described as diarrhea of small quantity. Symptoms associated with abdominal pain. She denied any fever. Blood work in the ED shows moderate leukocytosis. CT scan of the abdomen and pelvis reports findings suggestive of colitis extending from the transverse colon to the sigmoid colon. She does not meet criteria for sepsis. Patient is admitted for further management of intractable nausea and vomiting. - Past Medical/Surgical History -: Hypertension -: Migraine - Family History Father -: Hypertension Mother -: Hypertension - Social History Smoking Status: Current every day smoker Alcohol use: No CD- Drugs: Yes Place of Residence: Home Review of Systems Other: Except as documented, all other systems reviewed and negative. Physical Examination - Physical Exam General: Alert, In no apparent distress, Oriented x3 HEENT: Mucous membr. moist/pink, Sclerae nonicteric Neck: Supple, JVD not distended Respiratory: Clear to auscultation bilaterally, Normal air movement Cardiovascular: No edema, Regular rate/rhythm, Normal S1 S2 Capillary refill: <2 Seconds Gastrointestinal: Normal bowel sounds (Soft), Non-distended, Tenderness (Diffuse) Musculoskeletal: No swelling, No erythema Integumentary: No rashes Neurological: Normal speech, Normal strength at 5/5 x4 extr - Studies Laboratory Data (last 24 hrs) 10/07/19 11:50: Creatinine 0.85 10/07/19 11:50: WBC 14.0 H, Hgb 12.7, Hct 37.3, Plt Count 251 10/07/19 11:50: Sodium 138, Potassium 3.1 L, BUN 12, Creatinine 0.90, Glucose 155 H, Total Bilirubin 0.5, AST 16, ALT 15, Alkaline Phosphatase 161 H, Lipase 30 L Assessment and Plan - Problems (Diagnosis) (1) Intractable nausea and vomiting Current Visit: Yes Status: Acute (2) Abdominal pain Current Visit: Yes Status: Acute (3) Colitis Current Visit: Yes Status: Acute (4) Hypertension Current Visit: Yes Status: Acute - Plan Place under observation. Supportive measures with IV fluid, antiemetics, IV opioids p.r.n. for pain. Start IV Cipro and Flagyl for acute colitis. Clear liquid diet as tolerated. Check stool studies-fecal leukocytes. GI consult as outpatient. Continue home antihypertensives. - Advance Directives Does patient have a Living Will: No Does patient have a Durable POA for Healthcare: No
[2019-10-07 14:58] LABS: Urine Bacteria <20 /HPF (<20); Urine Culture Reflex Order NOT NEEDED; Urine RBC <5 /HPF (NONE SEEN)
[2019-10-07] MEDS ORDERED: ACETAMINOPHEN 500 MG TAB PO PRN (17:21)
[2019-10-07 17:32] VITALS: BMI 29.9
[2019-10-07] MEDS: MORPHINE 2 MG/ML SYR IV PRN ×3 (17:57→21:31)
[2019-10-07] MEDS: D5 0.9 NS 1,000 ML IV SCH (17:59)
[2019-10-07] MEDS: ENOXAPARIN 40 MG/0.4 ML SQ SCH (21:16)
[2019-10-07] MEDS: CIPROFLOXACIN 400mg IV 400 MG/200 ML BAG IV SCH (21:16)
[2019-10-07] MEDS: ONDANSETRON 4 MG/2 ML VIAL IV PRN (21:19)
[2019-10-07] MEDS ORDERED: GABAPENTIN 400 MG CAP PO PRN (22:29)
[2019-10-07] MEDS ORDERED: TRAZODONE 150 MG TAB PO SCH (22:29)
[2019-10-07] MEDS: TRAZODONE 50 MG TABLET PO SCH (23:00)
[2019-10-07] MEDS: CLONIDINE HCL 0.3 MG TAB PO SCH (23:00)
[2019-10-07] MEDS: carvediloL 25 MG TAB PO SCH (23:01)
[2019-10-07] MEDS: ALPRAZOLAM 1 MG TABLET PO PRN (23:04)
[2019-10-08] MEDS: METRONIDAZOLE 500mg IVPB 500 MG/100 ML BAG IV SCH ×3 (00:12→16:06)
[2019-10-08] MEDS: D5 0.9 NS 1,000 ML IV SCH ×3 (05:42→23:21)
[2019-10-08] MEDS: ONDANSETRON 4 MG/2 ML VIAL IV PRN ×2 (05:55→19:29)
[2019-10-08] MEDS: MORPHINE 2 MG/ML SYR IV PRN ×5 (05:56→23:18)
[2019-10-08 06:52] LABS: Absolute Lymphocytes (CBC) 2.4 K/uL (0.7-4.9); Basophils % 1.1 % (0-1.3); Hematocrit 30.9 % (36.0-45.0); Lymphocytes % 25.6 % (15.3-44.8); MPV 8.1 fL (7.6-11.3); RBC Red Blood Cell Count 3.24 M/uL (3.86-4.86)
[2019-10-08 07:06] LABS: ALT/SGPT 12 U/L (12-78); AST/SGOT 12 U/L (15-37); Albumin 2.9 g/dL (3.4-5.0); Alkaline Phosphatase 85 U/L (45-117); BUN Blood Urea Nitrogen 8 mg/dL (7-18); Bicarbonate 25 mmol/L (21-32); Bilirubin Total 0.2 mg/dL (0.2-1.0); Glucose Level 104 mg/dL (74-106); Magnesium 2.3 mg/dL (1.8-2.4); Phosphorus 2.9 mg/dL (2.5-4.9); Potassium 3.5 mmol/L (3.5-5.1); Sodium Level 143 mmol/L (136-145); Thyroid Stimulating Hormone 0.284 uIU/mL (0.360-3.740)
[2019-10-08] MEDS ORDERED: POTASSIUM CL SA 10 MEQ TAB PO ONE (09:00)
[2019-10-08] MEDS: carvediloL 25 MG TAB PO SCH ×2 (09:04→20:44)
[2019-10-08] MEDS: ENOXAPARIN 40 MG/0.4 ML SQ SCH (09:04)
[2019-10-08] MEDS: CLONIDINE HCL 0.3 MG TAB PO SCH ×3 (09:05→20:43)
[2019-10-08] MEDS: CITALOPRAM 10 MG TABLET PO SCH ×2 (09:06→20:43)
[2019-10-08] MEDS: ALPRAZOLAM 1 MG TABLET PO PRN (09:11)
[2019-10-08] MEDS: CIPROFLOXACIN 400mg IV 400 MG/200 ML BAG IV SCH ×2 (10:18→21:35)
--- NOTE | 2019-10-08 10:26 | P.PN ---
Subjective Date of Service: 10/08/19 (Hospitalist) Chief Complaint: Colitis Patient is still complaining of abdominal discomfort diarrhea has improved Review of Systems General: Weakness Gastrointestinal: Abdominal Pain Physical Examination - Vital Signs Temperature: 97.2 F Blood Pressure: 130/84 Pulse: 76 Respirations: 16 Pulse Ox (%): 95 - Physical Exam General: Alert, Mild distress Cardiovascular: No edema, Normal pulses Gastrointestinal: Tenderness (Generalized mild tenderness) - Studies Laboratory Data (last 24 hrs) 10/07/19 11:50: Creatinine 0.85 10/07/19 11:50: WBC 14.0 H, Hgb 12.7, Hct 37.3, Plt Count 251 10/07/19 11:50: Sodium 138, Potassium 3.1 L, BUN 12, Creatinine 0.90, Glucose 155 H, Total Bilirubin 0.5, AST 16, ALT 15, Alkaline Phosphatase 161 H, Lipase 30 L Assessment & Plan - Problems (Diagnosis) (1) Colitis Current Visit: Yes Status: Acute Plan: Patient is 49 years of age admitted the left-sided colitis white count is not back to normal patient is on broad-spectrum antibiotics continue to monitor labs ordered vital signs stable no fever
[2019-10-08] MEDS ORDERED: GABAPENTIN 300 MG CAP PO PRN (17:00)
[2019-10-08] MEDS: TRAZODONE 50 MG TABLET PO SCH (20:44)
[2019-10-08 23:42] LABS: Urine Appearance CLEAR; Urine Bilirubin NEGATIVE (NEG); Urine Blood NEGATIVE (NEG); Urine Color DK YELLOW; Urine Glucose NEGATIVE (NEG); Urine Protein NEGATIVE (NEG); Urine Urobilinogen 0.2 mg/dL (0.2-1.0)
[2019-10-08 23:43] LABS: Urine Microscopic Reflex NO UMIC
[2019-10-09] MEDS: ALPRAZOLAM 1 MG TABLET PO PRN ×2 (00:24→14:03)
[2019-10-09] MEDS: METRONIDAZOLE 500mg IVPB 500 MG/100 ML BAG IV SCH ×3 (00:35→16:25)
[2019-10-09] MEDS: ONDANSETRON 4 MG/2 ML VIAL IV PRN ×2 (04:11→10:10)
[2019-10-09] MEDS: MORPHINE 2 MG/ML SYR IV PRN ×4 (04:11→20:58)
[2019-10-09 05:41] LABS: Hematocrit 31.2 % (36.0-45.0); MPV 7.6 fL (7.6-11.3); RBC Red Blood Cell Count 3.21 M/uL (3.86-4.86)
[2019-10-09 06:28] LABS: BUN Blood Urea Nitrogen 4 mg/dL (7-18); Bicarbonate 25 mmol/L (21-32); Glucose Level 104 mg/dL (74-106); Potassium 3.1 mmol/L (3.5-5.1); Sodium Level 143 mmol/L (136-145)
[2019-10-09] MEDS ORDERED: POTASSIUM CL SA 10 MEQ TAB PO ONE ×2 (08:00→20:00)
[2019-10-09] MEDS: D5 0.9 NS 1,000 ML IV SCH ×2 (08:59→21:02)
[2019-10-09] MEDS: CLONIDINE HCL 0.3 MG TAB PO SCH ×3 (09:04→21:02)
[2019-10-09] MEDS: CITALOPRAM 10 MG TABLET PO SCH ×2 (09:06→21:03)
[2019-10-09] MEDS: carvediloL 25 MG TAB PO SCH ×2 (09:07→21:03)
[2019-10-09] MEDS: ENOXAPARIN 40 MG/0.4 ML SQ SCH (09:08)
--- NOTE | 2019-10-09 09:36 | P.PN ---
Subjective Date of Service: 10/09/19 Chief Complaint: Colitis Patient reports persistent abdominal pain. She has not vomited since last night. Her intake remained poor with clear liquid diet. She states the diarrhea has resolved. Physical Examination - Vital Signs Temperature: 97.6 F Blood Pressure: 158/100 Pulse: 70 Respirations: 17 Pulse Ox (%): 93 - Physical Exam General: Alert, In no apparent distress, Oriented x3 HEENT: Mucous membr. moist/pink Respiratory: Clear to auscultation bilaterally, Normal air movement Cardiovascular: No edema, Regular rate/rhythm, Normal S1 S2 Gastrointestinal: Normal bowel sounds, Soft and benign, Tenderness (Diffuse) Musculoskeletal: No swelling Integumentary: No rashes Assessment And Plan - Current Problems (Diagnosis) (1) Intractable nausea and vomiting Current Visit: Yes Status: Acute (2) Abdominal pain Current Visit: Yes Status: Acute (3) Colitis Current Visit: Yes Status: Acute (4) Hypertension Current Visit: Yes Status: Acute - Plan Continue supportive measures with IV fluid, antiemetics, IV opioids p.r.n. for pain. Continue IV Cipro and Flagyl for acute colitis. Clear liquid diet as tolerated. GI consult as outpatient. Continue home antihypertensives. Hydralazine p.r.n. for BP spikes. Monitor and correct electrolytes. Monitor as inpatient until patient is able to tolerate p.o and then discharge with oral antibiotics once able to tolerate PO.
[2019-10-09] MEDS: CIPROFLOXACIN 400mg IV 400 MG/200 ML BAG IV SCH ×2 (10:10→21:00)
[2019-10-09] MEDS: TRAZODONE 50 MG TABLET PO SCH (21:02)
[2019-10-10] MEDS: ALPRAZOLAM 1 MG TABLET PO PRN ×3 (00:11→22:47)
[2019-10-10] MEDS: METRONIDAZOLE 500mg IVPB 500 MG/100 ML BAG IV SCH ×3 (00:11→16:09)
[2019-10-10] MEDS: MORPHINE 2 MG/ML SYR IV PRN ×4 (04:16→20:27)
[2019-10-10 04:30] LABS: Absolute Lymphocytes (CBC) 2.5 K/uL (0.7-4.9); Basophils % 0.7 % (0-1.3); Hematocrit 31.2 % (36.0-45.0); MPV 7.6 fL (7.6-11.3)
[2019-10-10 04:42] LABS: BUN Blood Urea Nitrogen 3 mg/dL (7-18); Bicarbonate 29 mmol/L (21-32); Glucose Level 113 mg/dL (74-106); Potassium 4.1 mmol/L (3.5-5.1); Sodium Level 147 mmol/L (136-145)
[2019-10-10 05:27] LABS: Blood Morphology Comment NOT SEEN (NOT SEEN); Platelet Estimate ADEQ
[2019-10-10] MEDS: D5 0.9 NS 1,000 ML IV SCH ×2 (08:05→17:13)
[2019-10-10] MEDS: CITALOPRAM 10 MG TABLET PO SCH ×2 (08:07→20:31)
[2019-10-10] MEDS: carvediloL 25 MG TAB PO SCH ×2 (08:07→20:30)
[2019-10-10] MEDS: CLONIDINE HCL 0.3 MG TAB PO SCH ×3 (08:08→20:31)
[2019-10-10] MEDS: ENOXAPARIN 40 MG/0.4 ML SQ SCH (08:09)
[2019-10-10] MEDS: CIPROFLOXACIN 400mg IV 400 MG/200 ML BAG IV SCH ×2 (09:53→20:25)
--- NOTE | 2019-10-10 14:47 | P.PN ---
Subjective Date of Service: 10/10/19 Chief Complaint: Colitis Subjective: Worsening, Other (Patient feels that her abdominal symptoms are worsening. She feels more in pain today.) Physical Examination - Vital Signs Temperature: 97.7 F Blood Pressure: 180/112 Pulse: 78 Respirations: 18 Pulse Ox (%): 99 - Physical Exam General: Acute distress HEENT: Atraumatic, Normocephalic Neck: Supple Respiratory: Clear to auscultation bilaterally, Normal air movement Cardiovascular: No edema, Normal pulses, Regular rate/rhythm Gastrointestinal: Normal bowel sounds, Non-distended, Tenderness Musculoskeletal: No clubbing, No swelling, No contractures, No erythema, No tenderness, No warmth Integumentary: No rashes, No breakdown, No significant lesion, No tenderness/swelling, No erythema, No warmth, No cyanosis Neurological: Normal speech, Normal strength at 5/5 x4 extr Assessment & Plan - Problems (Diagnosis) (1) Abdominal pain Current Visit: Yes Status: Acute (2) Colitis Current Visit: Yes Status: Acute (3) Hypertension Current Visit: Yes Status: Acute (4) Intractable nausea and vomiting Current Visit: Yes Status: Acute Physician Review Additional Text: Assessment Patient is a 49-year-old female currently admitted for intractable abdominal pain of found to have colitis. She is on Flagyl and ciprofloxacin along with IV fluid infusion. She was supposed to be discharged today but she is complaining of worsening abdominal pain. Plan: Continue IV fluid infusion and Cipro and Flagyl Continue multimodal pain regimen Continue antiemetics and acid suppression therapy Advanced diet as tolerated Patient will need 1 more day of hospitalization prior to discharge
[2019-10-10] MEDS: TRAZODONE 50 MG TABLET PO SCH (20:32)
[2019-10-11] MEDS: METRONIDAZOLE 500mg IVPB 500 MG/100 ML BAG IV SCH ×3 (00:04→17:00)
[2019-10-11] MEDS: D5 0.9 NS 1,000 ML IV SCH ×3 (04:23→18:07)
[2019-10-11] MEDS: MORPHINE 2 MG/ML SYR IV PRN ×4 (04:23→20:07)
[2019-10-11] MEDS: CIPROFLOXACIN 400mg IV 400 MG/200 ML BAG IV SCH ×2 (08:23→20:01)
[2019-10-11] MEDS: CLONIDINE HCL 0.3 MG TAB PO SCH ×3 (08:24→20:02)
[2019-10-11] MEDS: ENOXAPARIN 40 MG/0.4 ML SQ SCH (08:24)
[2019-10-11] MEDS: ONDANSETRON 4 MG/2 ML VIAL IV PRN ×2 (08:24→15:34)
[2019-10-11] MEDS: CITALOPRAM 10 MG TABLET PO SCH ×2 (08:25→20:02)
[2019-10-11] MEDS: carvediloL 25 MG TAB PO SCH ×2 (08:25→20:03)
--- NOTE | 2019-10-11 09:37 | P.PN ---
Subjective Date of Service: 10/11/19 Chief Complaint: Colitis Subjective: No new changes (Patient continues to complain of post prandial pain.) Physical Examination - Vital Signs Temperature: 98.2 F Blood Pressure: 150/90 Pulse: 70 Respirations: 19 Pulse Ox (%): 92 - Physical Exam General: Alert, In no apparent distress, Cooperative HEENT: Atraumatic, Normocephalic Respiratory: Clear to auscultation bilaterally, Normal air movement Cardiovascular: No edema, Normal pulses, Regular rate/rhythm, Normal S1 S2 Gastrointestinal: Soft and benign, No guarding, Tenderness Musculoskeletal: No clubbing, No swelling, No contractures, No erythema, No tenderness, No warmth Integumentary: No rashes, No breakdown, No significant lesion, No tenderne ss/swelling, No erythema, No warmth, No cyanosis Neurological: Normal speech, Normal strength at 5/5 x4 extr, Sensation intact Assessment & Plan - Problems (Diagnosis) (1) Abdominal pain Current Visit: Yes Status: Acute (2) Colitis Current Visit: Yes Status: Acute (3) Hypertension Current Visit: Yes Status: Acute (4) Intractable nausea and vomiting Current Visit: Yes Status: Acute Physician Review Additional Text: Assessment Patient is a 49-year-old female currently admitted for intractable abdominal pain of found to have colitis. She is on Flagyl and ciprofloxacin along with IV fluid infusion. She continues to complain of post prandial pain Plan: Continue IV fluid infusion and Cipro and Flagyl Continue multimodal pain regimen Continue antiemetics and acid suppression therapy Advanced diet as tolerated Discharge when pain becomes bearable or if diet tolerated
[2019-10-11] MEDS: ALPRAZOLAM 1 MG TABLET PO PRN ×2 (11:52→22:16)
[2019-10-11] MEDS: TRAZODONE 50 MG TABLET PO SCH (20:06)
[2019-10-12] MEDS: METRONIDAZOLE 500mg IVPB 500 MG/100 ML BAG IV SCH ×2 (00:12→08:30)
[2019-10-12] MEDS: MORPHINE 2 MG/ML SYR IV PRN ×3 (00:12→10:33)
[2019-10-12] MEDS: ONDANSETRON 4 MG/2 ML VIAL IV PRN (06:21)
[2019-10-12] MEDS: D5 0.9 NS 1,000 ML IV SCH ×2 (06:23→07:21)
[2019-10-12] MEDS: CITALOPRAM 10 MG TABLET PO SCH (08:28)
[2019-10-12] MEDS: carvediloL 25 MG TAB PO SCH (08:29)
[2019-10-12] MEDS: CLONIDINE HCL 0.3 MG TAB PO SCH (08:29)
[2019-10-12] MEDS: CIPROFLOXACIN 400mg IV 400 MG/200 ML BAG IV SCH (08:30)
[2019-10-12] MEDS: ENOXAPARIN 40 MG/0.4 ML SQ SCH (08:30)
--- NOTE | 2019-10-12 09:40 | P.DS ---
Admission Date: 10/07/19 Discharge Date: 10/12/19 Discharge Condition: GOOD Reason for Admission: Colitis - Problems (1) Abdominal pain Current Visit: Yes Status: Acute (2) Colitis Current Visit: Yes Status: Acute (3) Hypertension Current Visit: Yes Status: Acute (4) Intractable nausea and vomiting Current Visit: Yes Status: Acute Hospital Course: Patient is a 49-year-old female with a past medical history of obesity, hypertension presented to the hospital with nausea vomiting and intractable abdominal pain. She was found to have colitis. Received ciprof loxacin and Flagyl throughout this hospitalization, which was prolonged due to uncontrolled pain and polar oral intake. We continue with the above treatment along with the pain regimen. Finally reported some significant improvement today. She will go home on levofloxacin and Flagyl for 4 more days. Vital Signs/Physical Exam: Temp Pulse Resp BP Pulse Ox 97.9 F 77 16 134/100 H 96 10/12/19 08:00 10/12/19 08:29 10/12/19 08:00 10/12/19 08:29 10/12/19 08:00 General: Alert, In no apparent distress, Cooperative HEENT: Atraumatic, Normocephalic Neck: Supple Respiratory: Clear to auscultation bilaterally, Normal air movement Cardiovascular: No edema, Normal pulses Gastrointestinal: Normal bowel sounds, Non-distended, Tenderness (Mild and diffuse tenderness) Musculoskeletal: No clubbing, No swelling, No contractures, No erythema, No tenderness, No warmth Integumentary: No rashes, No breakdown, No significant lesion, No tenderness/swelling, No erythema, No warmth, No cyanosis Neurological: Normal speech, Normal strength at 5/5 x4 extr, Sensation intact, Normal affect Laboratory Data at Discharge: WBC 4.8 K/uL (4.3-10.9) 10/10/19 04:09 Hgb 10.4 g/dL (12.0-15.0) L 10/10/19 04:09 Hct 31.2 % (36.0-45.0) L 10/10/19 04:09 Plt Count 230 K/uL (152-406) 10/10/19 04:09 Sodium 147 mmol/L (136-145) H 10/10/19 04:09 Potassium 4.1 mmol/L (3.5-5.1) 10/10/19 04:09 BUN 3 mg/dL (7-18) L 10/10/19 04:09 Creatinine 0.69 mg/dL (0.55-1.3) 10/10/19 04:09 Glucose 113 mg/dL (74-106) H 10/10/19 04:09 Phosphorus 2.9 mg/dL (2.5-4.9) 10/08/19 06:21 Magnesium 2.3 mg/dL (1.8-2.4) 10/08/19 06:21 Total Bilirubin 0.2 mg/dL (0.2-1.0) 10/08/19 06:21 AST 12 U/L (15-37) L 10/08/19 06:21 ALT 12 U/L (12-78) 10/08/19 06:21 Alkaline Phosphatase 85 U/L (45-117) 10/08/19 06:21 Lipase 30 U/L (73-393) L 10/07/19 11:50 Home Medications: Carvedilol [Coreg] 1 tab PO BID 10/07/19 Citalopram Hydrobromide [Celexa] 40 mg PO BID 10/07/19 Clonidine HCl [Catapres] 1 tab PO TID 10/07/19 Gabapentin 600 mg PO BIDP PRN 10/07/19 Trazodone [Desyrel*] 200 mg PO BEDTIME 10/07/19 Alprazolam [Xanax] 2 mg PO BID PRN #6 10/12/19 Citalopram [Celexa*] 40 mg PO BID tablet 10/12/19 Trazodone [Desyrel*] 200 mg PO BEDTIME tablet 10/12/19 carvediloL [Coreg*] 25 mg PO BID tab 10/12/19 cloNIDine HCL [Catapres*] 0.3 mg PO TID tablet 10/12/19 New Medications: Alprazolam [Xanax] 2 mg PO BID PRN #6 PRN Reason: Anxiety Diet: Regular
[2019-10-12 09:45] VITALS: O2SAT 96
[2019-10-12] MEDS: ALPRAZOLAM 1 MG TABLET PO PRN (10:37)
[2019-10-12 12:24] VITALS: BP 123/83; TEMP 97.5
== END 2019-10-12 14:29 | disposition home or self-care (01) | DRG 387 ==
LOC: ER 11:23 → ERHOLD 16:23 → OBSVTOIN 16:23 → 2ND 17:10
PROVIDERS: ADMIT Internal Medicine; ATTEND Internal Medicine
DX: K51.50 Left sided colitis without complications (principal); I10 Essential (primary) hypertension; G43.909 Migraine, unspecified, not intractable, without status migrainosus; D72.829 Elevated white blood cell count, unspecified; E66.9 Obesity, unspecified; F17.210 Nicotine dependence, cigarettes, uncomplicated; Z68.30 Body mass index [BMI] 30.0-30.9, adult
CPT/HCPCS: 36415; 74177; 80048; 80053; 80076; 81003; 81015; 81025; 83690; 83735; 84100; 84132; 84443; 85025; 85027; 96361; 96365; 96366; 96367; 96368; 96375; 99285; J0744; J1650; J2270; J2405; J2550; J7030; J7042; Q9967

== ENCOUNTER 2020-02-14 12:10 | Emergency (ER) | payer BC ==
--- OUTSIDE RECORDS SUMMARY | 2020-02-14 12:14 | XMS REPORT | Continuity of Care Document ---
:1970 Author Organization [facility] t Address [facility] [address] [place] [address] Care Team Providers Name Role Phone DR Bethany ERVIN Attending Clinician Unavailable DR TONNY Attending Clinician Unavailable ELEANOR, Attending Clinician Unavailable WILLIAM, Attending Clinician Unavailable CHRIS, MS Payne Attending Clinician Unavailable DR Bethany ERVIN Admitting Clinician Unavailable TONNY, Admitting Clinician Unavailable ELEANOR, Admitting Clinician Unavailable WILLIAM, Admitting Clinician Unavailable CHRIS, MS E Admitting Clinician Unavailable Problems This patient has no known problems. Allergies, Adverse Reactions, Alerts This patient has no known allergies or adverse reactions. Medications This patient has no known medications. Procedures This patient has no known procedures. Encounters Start End Encounter Admission Attending Care Care Encounter Source Date/Time Date/Time Type Type Clinicians Facility Department ID 2019-01-21 2019-01-24 [facility] [id number] [place] 17:51:00 [facility]:13[facility] [place] 2018-07-16 2018-07-19 [facility] [id number] [place] 15:24:00 14:47:00 [facility] [place] 2018-06-30 2018-07-01 [facility] [id number] [place] 16:03:00 17:15:00 [facility] [place] 2018-05-17 2018-05-17 [facility] [id number] [place] 13:38:00 15:27:00 [facility] [place] 2018-03-09 2018-03-09 [facility] [id number] [place] 10:29:00 [facility] [place] Results Test Description Test Time Test Comments Results Result Comments Source MAGNESIUM WW 2019-01-24 06:19:00 Test Item Value Reference Range Interpretation Comme nts MAGNESIUM (test code = 48A) 2.0 mg/dL 1.8-2.4 BASIC METABOLIC PANEL 2019-01-24 06:05:00 Test Item Value Reference Range Interpretation Comments GLUCOSE (test code = 06D) 91 mg/dL 75-100 SODIUM (test code = 01A) 136 mmol/L 136-145 POTASSIUM (test code = 01B) 3.1 mmol/L 3.6-5.1 L CHLORIDE (test code = 04A) 103 mmol/L 98-107 CO2 (test code = 02A) 23 mmol/L 22-32 ANION GAP (test code = ANG) 13.1 mmol/L BUN (test code = 05D) 15 mg/dL 7-18 CREATININE (test code = 03E) 0.5 mg/dL 0.4-1.1 BUN/CREA (test code = BCR) 28 12-20 H CALCIUM (test code = 09D) 8.3 mg/dL 8.3-9.5 CBC (INCLUDES AUTOMATED DIFFERENTIAL)*[id number] 05:53:00 Test Item Value Reference Range Interpretation Comments WBC (test code = WBC) 8.5 10\S\3/uL 4.5-11.0 RBC (test code = RBC) 3.78 10\S\6/uL 4.20-5.60 L HGB (test code = HBG) 12.2 g/dL 12.0-15.5 HCT (test code = HCT) 37.4 % 35.0-44.0 MCV (test code = MCV) 98.9 fL 81.0-99.0 MCH (test code = MCH) 32.3 pg 27.0-31.0 H MCHC (test code = MCHC) 32.6 g/dL [...] (test code = NE%) 73.6 % 35.0-73.0 H LYMPH % (test code = LY%) 18.2 % 20.0-55.0 L MONO % (test code = MO%) 7.3 % 2.5-10.0 EOSINOPH % (test code = EO%) 0.1 % 0.0-5.0 BASOPHIL % (test code = BA%) 0.4 % 0.0-2.0 IG % (test code = IG%) 0.4 % 0.0-0.8 NRBC% (test code = NRBC%) 0.0 % 0.0-0.2 MANDIFF (test code = WMDIFF) NO NO RBC MORPH (test code = NORMAL WRBCMOR) BASIC METABOLIC PANEL 2019-01-23 06:59:00 Test Item Value Reference Range Interpretation Comments GLUCOSE (test code = 06D) 81 mg/dL 75-100 SODIUM (test code = 01A) 140 mmol/L 136-145 POTASSIUM (test code = 01B) 3.1 mmol/L 3.6-5.1 L CHLORIDE (test code = 04A) 107 mmol/L 98-107 CO2 (test code = 02A) 25 mmol/L 22-32 ANION GAP (test code = ANG) 11.1 mmol/L BUN (test code = 05D) 18 mg/dL 7-18 CREATININE (test code = 03E) 0.7 mg/dL 0.4-1.1 BUN/CREA (test code = BCR) 27 12-20 H CALCIUM (test code = 09D) 8.3 mg/dL 8.3-9.5 PRO TIME AND PTT *WW*2019-01-23 06:18:00 Test Item Value Reference Range Interpretation Comments PT (test code = 14.4 s 9.8-13.6 H TT) INR (test code = 1.3 INR) INRH (test code = SUGGESTED INRH) THERAPEUTIC RANGE FOR INR: 2.5 - 3.5 For Patients with Prosthetic Valves or Patients with recurrent Thromboembolic Events 2.0 - 3.0 For Most Other Applications PTT (test code = 25.9 s 20.2-38.0 PTT) PTTH (test code = To monitor the PTTH) effectiveness of heparin, we offer the Anti-Xa (Heparin Assay). It can be used for either unfractionated or LMW Heparin. Order Code is ANTI-XA MAGNESIUM WW2019-01-23 06:02:00 Test Item Value Reference Range Interpretation Comments MAGNESIUM (test code = 48A) 2.0 mg/dL 1.8-2.4 CBC (INCLUDES AUTOMATED DIFFERENTIAL)*[id number] 05:59:00 Test Item Value Reference Range Interpretation Comments WBC (test code = WBC) 8.4 10\S\3/uL 4.5-11.0 RBC (test code = RBC) 3.67 10\S\6/uL 4.20-5.60 L HGB (test code = HBG) 11.7 g/dL 12.0-15.5 L HCT (test code = HCT) 35.3 % 35.0-44.0 MCV (test code = MCV) 96.2 fL 81.0-99.0 MCH (test code = MCH) 31.9 pg 27.0-31.0 H MCHC (test code = MCHC) 33.1 g/dL [...] NO NO RBC MORPH (test code = NORMAL WRBCMOR) BASIC METABOLIC PANEL *WW*2019-01-22 07:12:00 Test Item Value Reference Range Interpretation Comments GLUCOSE (test code = 06D) 86 mg/dL 75-100 SODIUM (test code = 01A) 141 mmol/L 136-145 POTASSIUM (test code = 01B) 3.2 mmol/L 3.6-5.1 L CHLORIDE (test code = 04A) 109 mmol/L 98-107 H CO2 (test code = 02A) 24 mmol/L 22-32 ANION GAP (test code = ANG) 11.2 mmol/L BUN (test code = 05D) 20 mg/dL 7-18 H CREATININE (test code = 03E) 0.6 mg/dL 0.4-1.1 BUN/CREA (test code = BCR) 33 12-20 H CALCIUM (test code = 09D) 8.4 mg/dL 8.3-9.5 CARDIAC PROFILE 2019-01-22 06:11:00 Test Item Value Reference Range Interpretation Comments TROPONIN I (test code = A84) <0.015 ng/mL 0.000-0.045 CBC (INCLUDES AUTOMATED DIFFERENTIAL)*[id number] 06:06:00 Test Item Value Reference Range Interpretation Comments WBC (test code = WBC) 12.4 10\S\3/uL 4.5-11.0 H RBC (test code = RBC) 3.52 10\S\6/uL 4.20-5.60 L HGB (test code = HBG) 11.1 g/dL 12.0-15.5 L HCT (test code = HCT) 34.1 % 35.0-44.0 L MCV (test code = MCV) 96.9 fL 81.0-99.0 MCH (test code = MCH) 31.5 pg 27.0-31.0 H MCHC (test code = MCHC) 32.6 g/dL 32.0-36.0 RDW (test code = RDW) 13.5 % 11.5-14.5 PLT (test code = PLT) 259 10\S\3/uL 130-400 MPV (test code = MPV) 9.4 fL 9.4-12.4 NEUTROP # (test code = NE#) 9.4 10\S\3/uL 1.6-8.0 H LYMPH # (test code = LY#) 2.0 10\S\3/uL 1.1-3.5 MONOCYTE # (test code = MO#) 0.9 10\S\3/uL 0.0-1.1 EOSINOPH # (test code = EO#) 0.0 10\S\3/uL 0.0-0.7 BASOPHIL # (test code = BA#) 0.0 10\S\3/uL 0.0-0.3 IG # (test code = IG#) 0.08 10\S\3/uL 0.00-0.06 H NRBC # (test code = NRBC#) 0.00 10\S\3/uL 0.00-0.01 NEUTROPH % (test code = NE%) 75.7 % 35.0-73.0 H LYMPH % (test code = LY%) 16.2 % 20.0-55.0 L MONO % (test code = MO%) 7.2 % 2.5-10.0 EOSINOPH % (test code = EO%) 0.1 % 0.0-5.0 BASOPHIL % (test code = BA%) 0.2 % 0.0-2.0 IG % (test code = IG%) 0.6 % 0.0-0.8 NRBC% (test code = NRBC%) 0.0 % 0.0-0.2 MANDIFF (test code = WMDIFF) NO NO RBC MORPH (test code = NORMAL WRBCMOR) MAGNESIUM 2019-01-22 06:03:00 Test Item Value Reference Range Interpretation Comments MAGNESIUM (test code = 48A) 2.2 mg/dL 1.8-2.4 TROPONIN I 2019-01-21 14:09:00 Test Item Value Reference Range Interpretation Comments TROPONIN I (test code = A84) <0.015 ng/mL 0.000-0.045 LACTIC ACID 2019-01-21 06:18:00 Test Item Value Reference Range Interpretation Comments LACTIC ACD (test code = LA) 1.1 mmol/L 0.4-2.0 BASIC METABOLIC PANEL 2019-01-21 06:17:00 Test Item Value Reference Range Interpretation Comments GLUCOSE (test code = 06D) 144 mg/dL 75-100 H SODIUM (test code = 01A) 141 mmol/L 136-145 POTASSIUM (test code = 01B) 3.0 mmol/L 3.6-5.1 L CHLORIDE (test code = 04A) 108 mmol/L 98-107 H CO2 (test code = 02A) 24 mmol/L 22-32 ANION GAP (test code = ANG) 11.9 mmol/L BUN (test code = 05D) 16 mg/dL 7-18 CREATININE (test code = 03E) 0.7 mg/dL 0.4-1.1 BUN/CREA (test code = BCR) 23 12-20 H CALCIUM (test code = 09D) 8.7 mg/dL 8.3-9.5 CBC (INCLUDES AUTOMATED DIFFERENTIAL)*[id number] 06:00:00 Test Item Value Reference Range Interpretation Comments WBC (test code = WBC) 15.6 10\S\3/uL 4.5-11.0 H RBC (test code = RBC) 3.87 10\S\6/uL 4.20-5.60 L HGB (test code = HBG) 12.0 g/dL [...] (test code = NE#) 13.7 10\S\3/uL 1.6-8.0 H LYMPH # (test code = LY#) 1.1 10\S\3/uL 1.1-3.5 MONOCYTE # (test code = MO#) 0.8 10\S\3/uL 0.0-1.1 EOSINOPH # (test code = EO#) 0.0 10\S\3/uL 0.0-0.7 BASOPHIL # (test code = BA#) 0.0 10\S\3/uL 0.0-0.3 IG # (test code = IG#) 0.08 10\S\3/uL 0.00-0.06 H NRBC # (test code = NRBC#) 0.00 10\S\3/uL 0.00-0.01 NEUTROPH % (test code = NE%) 87.6 % 35.0-73.0 H LYMPH % (test code = LY%) 6.7 % 20.0-55.0 L MONO % (test code = MO%) 4.9 % 2.5-10.0 EOSINOPH % (test code = EO%) 0.0 % 0.0-5.0 BASOPHIL % (test code = BA%) 0.3 % 0.0-2.0 IG % (test code = IG%) 0.5 % 0.0-0.8 NRBC% (test code = NRBC%) 0.0 % 0.0-0.2 MANDIFF (test code = WMDIFF) NO NO RBC MORPH (test code = NORMAL WRBCMOR) URINALYSIS WITH [id number] 21:55:00 Test Item Value Reference Range Interpretation Comments COLOR (test code = COLU) YELLOW YELLOW CLARITY (test code = CLA) CLEAR CLEAR GLUCOSE UR (test code = UA GLUCOSE) NEGATIVE NEGATIVE BILI UR (test code = BILE) NEGATIVE NEGATIVE KETONES UR (test code = AUGUSTINE) 3+ NEGATIVE A SP GRAVITY (test code = SPGR) 1.030 1.005-1.030 PH UR (test code = PH) 6.0 4.5-8.0 PROTEIN UR (test code = PU) 2+ NEGATIVE A UROBIL UR (test code = UROQ) 0.2 [...] (test code = UBACT) FEW /HPF NONE A CAST UR (test code = CAST) /LPF NONE CRYSTAL UR (test code = CRYU) / LPF NONE MUCUS UR (test code = MUC) / HPF NONE AMORPH UR (test code = SHAHEEN) / HPF NONE TRICH UR (test code = UTRICH) /HPF NONE YEAST UR (test code = UY) /HPF NONE SPERM UR (test code = USPERM) /HPF NONE DRUGS OF [id number] 21:55:00 Test Item Value Reference Range Interpretation Comments DRUG SCRN (test code URINE DRUG SCREEN = HDOA) This is an unconfirmed screening result and should not be used for non-medical purposes CANNABINOD (test code POSITIVE NEGATIVE A = 88C) AMPHETAMINE (test Negative NEGATIVE code = 84A) BENZODIAZP (test code Negative NEGATIVE = 86A) BARBITURAT (test code POSITIVE NEGATIVE A = 85A) OPIATES (test code = POSITIVE NEGATIVE A 92B) COCAINE (test code = Negative NEGATIVE 87A) PHENCYCLID (test code Negative NEGATIVE = 66A) METHADONE (test code Negative NEGATIVE = 64A) DOAH (test code = DOAH.) *URINE DRUG SCREEN Cut-off values are as follows: Cannabinoids 50 ng/mL Cocaine 300 ng/mL Amphetamines 1000 ng/mL Phencyclidine 25 ng/mL Benzodiazepines 200 ng.mL Methadone 300 ng/mL Barbiturates 200 ng/mL Opiates 2000 ng/mL CT ABDOMEN AND PELVIS WITH [id number] 21:03:20Exam: CT abdomen and pelvis with contrast.Location: [...] CONTRAST 2019-01-20 21:02:21Chest CT with contrast.Location Code: [id number] HISTORY: chest pain, vomitingCOMPARISON: NoneTechnique: Helical CT [...] patientsize, and/or utilization of iterative reconstruction technique.OCCULT [id number] 20:16:00 Test Item Value Reference Range Interpretation Comments Direct Exam (test code POSITIVE FOR OCCULT = DE1) BLOOD [id number] 20:03:00 Test Item Value Reference Range Interpretation Comments D-DIMER (test code = <200 ng/mL D-DU 0-234 DDI) D-DIMER COMMENT (test *Level to rule out code = DDCOM) DVT or PE: <235 ng/mL D-DU* PRO TIME AND [id number] 20:03:00 Test Item Value Reference Range Interpretation Comments PT (test code = 11.8 s 9.8-13.6 TT) INR (test code = 1.0 INR) INRH (test code = SUGGESTED INRH) THERAPEUTIC RANGE FOR INR: 2.5 - 3.5 For Patients with Prosthetic Valves or Patients with recurrent Thromboembolic Events 2.0 - 3.0 For Most Other Applications PTT (test code = 26.0 s 20.2-38.0 PTT) PTTH (test code = To monitor the PTTH) effectiveness of heparin, we offer the Anti-Xa (Heparin Assay). It can be used for either unfractionated or LMW Heparin. Order Code is ANTI-XA [id number] 20:02:00 Test Item Value Reference Range Interpretation Comments CPK (test code = 32A) 140 IU/L 26-192 COMPREHENSIVE METABOLIC [id number] 20:02:00 Test Item Value Reference Range Interpretation Comments GLUCOSE (test code = 06D) 142 mg/dL 75-100 H SODIUM (test code = 01A) 142 mmol/L 136-145 POTASSIUM (test code = 01B) 3.7 mmol/L 3.6-5.1 CHLORIDE (test code = 04A) 110 mmol/L 98-107 H CO2 (test code = 02A) 21 mmol/L 22-32 L ANION GAP (test code = ANG) 14.7 mmol/L BUN (test code = 05D) 16 mg/dL 7-18 CREATININE (test code = 03E) 0.8 mg/dL 0.4-1.1 BUN/CREA (test code = BCR) 21 12-20 H CALCIUM (test code = 09D) 9.2 mg/dL [...] code = 31A) 18 IU/L <=78 TROPONIN [id number] 19:55:00 Test Item Value Reference Range Interpretation Comments TROPONIN I (test code = A84) <0.015 ng/mL 0.000-0.045 XR CHEST 1 VIEW [id number] 19:40:49Exam: Chest portable erectLocation: H 12History: chest painComparison: 06/30/2018Findings:The lungs are clear. No infiltrate or effusion is seen. The pulmonaryvasculature is normal. The heart size is mildly enlarged. Atherosclerosisinvolves the aorta. The mediastinal silhouette is unremarkable. The bony thoraxis intact with degenerative changes noted.Impression:No acute disease.CBC (INCLUDES AUTOMATED DIFFERENTIAL) 2019-01-20 19:40:00 Test Item Value Reference Range Interpretation Comments WBC (test code = WBC) 17.3 10\S\3/uL 4.5-11.0 H RBC (test code = RBC) 3.86 10\S\6/uL 4.20-5.60 L HGB (test code = HBG) 12.1 g/dL 12.0-15.5 HCT (test code = HCT) 35.2 % 35.0-44.0 MCV (test code = MCV) 91.2 fL 81.0-99.0 MCH (test code = MCH) 31.3 pg 27.0-31.0 H MCHC (test code = MCHC) 34.4 g/dL 32.0-36.0 RDW (test code = RDW) 13.6 % 11.5-14.5 PLT (test code = PLT) 309 10\S\3/uL 130-400 MPV (test code = MPV) 10.2 fL 9.4-12.4 NEUTROP # (test code = NE#) 15.2 10\S\3/uL 1.6-8.0 H LYMPH # (test code = LY#) 1.1 10\S\3/uL 1.1-3.5 MONOCYTE # (test code = MO#) 0.9 10\S\3/uL 0.0-1.1 EOSINOPH # (test code = EO#) 0.0 10\S\3/uL 0.0-0.7 BASOPHIL # (test code = BA#) 0.0 10\S\3/uL 0.0-0.3 IG # (test code = IG#) 0.08 10\S\3/uL 0.00-0.06 H NRBC # (test code = NRBC#) 0.00 10\S\3/uL 0.00-0.01 NEUTROPH % (test code = NE%) 88.0 % 35.0-73.0 H LYMPH % (test code = LY%) 6.3 % 20.0-55.0 L MONO % (test code = MO%) 5.0 % 2.5-10.0 EOSINOPH % (test code = EO%) 0.0 % 0.0-5.0 BASOPHIL % (test code = BA%) 0.2 % 0.0-2.0 IG % (test code = IG%) 0.5 % 0.0-0.8 NRBC% (test code = NRBC%) 0.0 % 0.0-0.2 MANDIFF (test code = MDIFF) NO NO COMPREHENSIVE METABOLIC [id number] 04:10:00 Test Item Value Reference Range Interpretation Comments GLUCOSE (test code = 06D) 92 mg/dL 75-100 SODIUM (test code = 01A) 141 mmol/L 136-145 POTASSIUM (test code = 01B) 3.6 mmol/L 3.6-5.1 CHLORIDE (test code = 04A) 107 mmol/L 98-107 CO2 (test code = 02A) 22 mmol/L 22-32 ANION GAP (test code = ANG) 15.6 mmol/L BUN (test code = 05D) 19 mg/dL 7-18 H CREATININE (test code = 03E) 0.7 mg/dL 0.4-1.1 BUN/CREA (test code = BCR) 27 12-20 H CALCIUM (test code = 09D) 8.9 mg/dL 8.3-9.5 BILI TOTAL (test code = 11A) 0.4 mg/dL 0.2-1.0 PROTEIN (test code = 07D) 6.9 g/dL 6.4-8.2 ALBUMIN (test code = 08D) 3.3 g/dL 3.5-4.8 L GLOBULIN (test code = GLB) 3.6 g/dL 1.5-3.8 ALB/GLOB (test code = AGRR) 0.9 1.0-2.6 L ALK PHOS (test code = 35A) 68 IU/L 42-121 AST (test code = 30A) 12 IU/L <=42 ALT (test code = 31A) 15 IU/L <=78 CBC (INCLUDES AUTOMATED DIFFERENTIAL)2018-07-17 05:48:00 Test Item Value Reference Range Interpretation Comments WBC (test code = WBC) 11.9 10\S\3/uL 4.5-11.0 H RBC (test code = RBC) 3.95 10\S\6/uL 4.20-5.60 L HGB (test code = HBG) 11.9 g/dL 12.0-15.5 L HCT (test code = HCT) 37.2 % [...] (test code = NE#) 9.0 10\S\3/uL 1.6-8.0 H LYMPH # (test code = LY#) 1.8 10\S\3/uL 1.1-3.5 MONOCYTE # (test code = MO#) 1.0 10\S\3/uL 0.0-1.1 EOSINOPH # (test code = EO#) 0.0 10\S\3/uL 0.0-0.7 BASOPHIL # (test code = BA#) 0.1 10\S\3/uL 0.0-0.3 IG # (test code = IG#) 0.07 10\S\3/uL 0.00-0.06 H NRBC # (test code = NRBC#) 0.00 10\S\3/uL 0.00-0.01 NEUTROPH % (test code = NE%) 75.2 % 35.0-73.0 H LYMPH % (test code = LY%) 14.9 % 20.0-55.0 L MONO % (test code = MO%) 8.6 % 2.5-10.0 EOSINOPH % (test code = EO%) 0.3 % 0.0-5.0 BASOPHIL % (test code = BA%) 0.4 % 0.0-2.0 IG % (test code = IG%) 0.6 % 0.0-0.8 NRBC% (test code = NRBC%) 0.0 % 0.0-0.2 MANDIFF (test code = MDIFF) NO NO RBC MORPH (test code = RBCMOR) NORMAL BASIC METABOLIC [id number] 05:47:00 Test Item Value Reference Range Interpretation Comments GLUCOSE (test code = 06D) 97 mg/dL 75-100 SODIUM (test code = 01A) 143 mmol/L 136-145 POTASSIUM (test code = 01B) 3.5 mmol/L 3.6-5.1 L CHLORIDE (test code = 04A) 108 mmol/L 98-107 H CO2 (test code = 02A) 26 mmol/L 22-32 ANION GAP (test code = ANG) 12.5 mmol/L BUN (test code = 05D) 16 mg/dL 7-18 CREATININE (test code = 03E) 0.6 mg/dL 0.4-1.1 BUN/CREA (test code = BCR) 25 12-20 H CALCIUM (test code = 09D) 8.3 mg/dL 8.3-9.5 CARDIAC [id number] 02:45:00 Test Item Value Reference Range Interpretation Comments TROPONIN I (test code = A84) 0.059 ng/mL 0.000-0.045 H CARDIAC [id number] 18:36:00 Test Item Value Reference Range Interpretation Comments TROPONIN I (test code = A84) 0.059 ng/mL 0.000-0.[address] ABDOMEN AND PELVIS WITH [id number] 15:14:52EXAM: CT abdomen and pelvis with contrastLocation: [...] iterative reconstruction technique.DLP: 1534 mGy-cm CTDI 28 [id number] 13:05:00 Test Item Value Reference Range Interpretation Comments MAGNESIUM (test code = 48A) 1.9 mg/dL 1.8-2.4 CT HEAD W/O [id number] 12:54:16EXAM: CT head without contrastLocation: [id number]: NoneINDICATION: HeadacheTECHNIQUE: Axial images of the brain [...] technique.DLP: 854 mGy-cm CTDI 45 mGyDRUGS OF [id number] 12:54:00 Test Item Value Reference Range Interpretation Comments DRUG SCRN (test code URINE DRUG SCREEN = HDOA) This is an unconfirmed screening result and should not be used for non-medical purposes CANNABINOD (test code POSITIVE NEGATIVE A = 88C) AMPHETAMINE (test Negative NEGATIVE code = 84A) BENZODIAZP (test code POSITIVE NEGATIVE A = 86A) BARBITURAT (test code Negative NEGATIVE = 85A) OPIATES (test code = Negative NEGATIVE 92B) COCAINE (test code = Negative NEGATIVE 87A) PHENCYCLID (test code Negative NEGATIVE = 66A) METHADONE (test code Negative NEGATIVE = 64A) DOAH (test code = DOAH.) *URINE DRUG SCREEN Cut-off values are as follows: Cannabinoids 50 ng/mL Cocaine 300 ng/mL Amphetamines 1000 ng/mL Phencyclidine 25 ng/mL Benzodiazepines 200 ng.mL Methadone 300 ng/mL Barbiturates 200 ng/mL Opiates 2000 ng/mL URINALYSIS WITH [id number] 12:46:00 Test Item Value Reference Range Interpretation Comments COLOR (test code = COLU) DK YELLOW YELLOW A CLARITY (test code = CLA) CLOUDY CLEAR A GLUCOSE UR (test code = UA NEGATIVE NEGATIVE GLUCOSE) BILI UR (test code = BILE) 1+ NEGATIVE A KETONES UR (test code = AUGUSTINE) 1+ NEGATIVE A SP GRAVITY (test code = SPGR) 1.027 1.005-1.030 PH UR (test code = PH) 6.0 4.5-8.0 PROTEIN UR (test code = PU) 2+ NEGATIVE A UROBIL UR (test code = UROQ) 1.0 EU/dL 0.2-1.0 NITRITE UR (test code = NITRITE) NEGATIVE NEGATIVE BLOOD UR (test code = UA BLOOD) NEGATIVE NEGATIVE LEUK ES UR (test code = LEUK) 1+ NEGATIVE A WBC UR (test code = UWBC) 3 /HPF 0-5 RBC UR (test code = URBC) 0 /HPF 0-2 EPITH UR (test code = UEPC) FEW /LPF FEW BACTERIA UR (test code = UBACT) FEW /HPF NONE A CAST UR (test code = CAST) /LPF NONE CRYSTAL UR (test code = CRYU) / LPF NONE MUCUS UR (test code = MUC) MANY / HPF NONE A AMORPH UR (test code = SHAHEEN) / HPF NONE TRICH UR (test code = UTRICH) /HPF NONE YEAST UR (test code = UY) /HPF NONE SPERM UR (test code = USPERM) /HPF NONE URINE [id number] 12:39:00 Test Item Value Reference Range Interpretation Comments PREG UR (test code = PGU) NEGATIVE NEGATIVE COMPREHENSIVE METABOLIC [id number] 12:37:00 Test Item Value Reference Range Interpretation Comments GLUCOSE (test code = 06D) 107 mg/dL 75-100 H SODIUM (test code = 01A) 140 mmol/L 136-145 POTASSIUM (test code = 01B) 2.8 mmol/L 3.6-5.1 LL CHLORIDE (test code = 04A) 98 mmol/L 98-107 CO2 (test code = 02A) 28 mmol/L 22-32 ANION GAP (test code = ANG) 16.8 mmol/L BUN (test code = 05D) 19 mg/dL 7-18 H CREATININE (test code = 03E) 0.8 mg/dL 0.4-1.1 BUN/CREA (test code = BCR) 23 12-20 H CALCIUM (test code = 09D) 9.6 mg/dL 8.3-9.5 H BILI TOTAL (test code = 11A) 0.7 mg/dL 0.2-1.0 PROTEIN (test code = 07D) 8.0 g/dL 6.4-8.2 ALBUMIN (test code = 08D) 4.0 g/dL 3.5-4.8 GLOBULIN (test code = GLB) 4.0 g/dL 1.5-3.8 H ALB/GLOB (test code = AGRR) 1.0 1.0-2.6 ALK PHOS (test code = 35A) 91 IU/L 42-121 AST (test code = 30A) 18 IU/L <=42 ALT (test code = 31A) 17 IU/L <=78 AMYLASE AND [id number] 12:34:00 Test Item Value Reference Range Interpretation Comments AMYLASE (test code = 10A) 53 U/L 28-100 LIPASE (test code = 60A) 45 IU/L 73-393 L TROPONIN [id number] 12:33:00 Test Item Value Reference Range Interpretation Comments TROPONIN I (test code = A84) 0.087 ng/mL 0.000-0.045 H [id number] 12:26:00 Test Item Value Reference Range Interpretation Comments D-DIMER (test code = <200 ng/mL D-DU 0-234 DDI) D-DIMER COMMENT (test *Level to rule out code = DDCOM) DVT or PE: <235 ng/mL D-DU* CBC (INCLUDES AUTOMATED DIFFERENTIAL)2018-07-16 12:17:00 Test Item Value Reference Range Interpretation Comments WBC (test code = WBC) 13.8 10\S\3/uL 4.5-11.0 H RBC (test code = RBC) 4.37 10\S\6/uL [...] (test code = PLT) 421 10\S\3/uL 130-400 H MPV (test code = MPV) 9.6 fL 9.4-12.4 NEUTROP # (test code = NE#) 11.5 10\S\3/uL 1.6-8.0 H LYMPH # (test code = LY#) 1.4 10\S\3/uL 1.1-3.5 MONOCYTE # (test code = MO#) 0.8 10\S\3/uL 0.0-1.1 EOSINOPH # (test code = EO#) 0.1 10\S\3/uL 0.0-0.7 BASOPHIL # (test code = BA#) 0.0 10\S\3/uL 0.0-0.3 IG # (test code = IG#) 0.06 10\S\3/uL 0.00-0.06 NRBC # (test code = NRBC#) 0.00 10\S\3/uL 0.00-0.01 NEUTROPH % (test code = NE%) 83.4 % 35.0-73.0 H LYMPH % (test code = LY%) 10.0 % 20.0-55.0 L MONO % (test code = MO%) 5.5 % 2.5-10.0 EOSINOPH % (test code = EO%) 0.6 % 0.0-5.0 BASOPHIL % (test code = BA%) 0.1 % 0.0-2.0 IG % (test code = IG%) 0.4 % 0.0-0.8 NRBC% (test code = NRBC%) 0.0 % 0.0-0.2 MANDIFF (test code = MDIFF) NO NO RBC MORPH (test code = RBCMOR) NORMAL DIRECT STREP GROUP [id number] 07:45:00 Test Item Value Reference Range Interpretation Comments Culture Observations NO BETA HEMOLYTIC (test code = COB1) STREPTOCOCCUS ISOLATED Direct Exam (test code NO STREPTOCOCCUS GROUP = DE1) A ANTIGEN DETECTED THYROID PANEL/SCREEN (TSH)2018-07-01 05:50:00 Test Item Value Reference Range Interpretation Comments TSH (test code = A57) 0.453 uIU/mL 0.358-3.740 CARDIAC [id number] 05:16:00 Test Item Value Reference Range Interpretation Comments TROPONIN I (test code = A84) <0.015 ng/mL 0.000-0.045 BASIC METABOLIC [id number] 04:55:00 Test Item Value Reference Range Interpretation Comments GLUCOSE (test code = 06D) 120 mg/dL 75-100 H SODIUM (test code = 01A) 141 mmol/L 136-145 POTASSIUM (test code = 01B) 3.3 mmol/L 3.6-5.1 L CHLORIDE (test code = 04A) 107 mmol/L [...] DIFFERENTIAL)2018-07-01 04:44:00 Test Item Value Reference Range Interpretation Comments WBC (test code = WBC) 8.1 10\S\3/uL 4.5-11.0 RBC (test code = RBC) 4.10 10\S\6/uL 4.20-5.60 L HGB (test code = HBG) 12.3 g/dL [...] (test code = NE%) 83.8 % 35.0-73.0 H LYMPH % (test code = LY%) 13.1 % 20.0-55.0 L MONO % (test code = MO%) 2.2 % 2.5-10.0 L EOSINOPH % (test code = EO%) 0.1 % 0.0-5.0 BASOPHIL % (test code = BA%) 0.1 % 0.0-2.0 IG % (test code = IG%) 0.7 % 0.0-0.8 NRBC% (test code = NRBC%) 0.0 % 0.0-0.2 MANDIFF (test code = MDIFF) NO NO RBC MORPH (test code = RBCMOR) NORMAL CARDIAC [id number] 21:20:00 Test Item Value Reference Range Interpretation Comments TROPONIN I (test code = A84) <0.015 ng/mL 0.000-0.045 URINE [id number] 17:31:00 Test Item Value Reference Range Interpretation Comments PREG UR (test code = PGU) NEGATIVE NEGATIVE U/S [id number] 13:56:23EXAMINATION: U/S GALLBLADDER.LOCATION: D4.HISTORY: Right upper quadrant [...] 06/30/2018 [address] ABDOMEN AND PELVIS WITH [id number] 12:09:32EXAMINATION: CT ABDOMEN AND PELVIS WITH CONTRAST.LOCATION: [...] consultation and colonoscopy.Bilateral nephrolithiasis.Atherosclerotic vascular calcifications.Arterial Blood [id number] 12:05:00 Test Item Value Reference Range Interpretation Comments pH (test code = PHRT) 7.498 7.350-7.450 H pCO2 (test code = 31.4 mmHg 35.0-45.0 L PCO2RT) pO2 (test code = 81.7 mmHg 80.0-110.0 PO2RT) HCO3? (test code = 24.1 mmol/L 22.0-26.0 HCO3) ARIADNA (test code = ARIADNA) 2.0 mmol/L -3.0-3.0 tHb (test code = 13.7 g/dL 12.0-15.5 THBRT) sO2 (test code = 96.1 % 92.0-100.0 SO2RT) FO2Hb (test code = 94.4 % 94.0-100.0 CF1DDDF) FCOHb (test code = 0.6 % 0.0-3.0 FCOHBRT) FMetHb (test code = 1.1 % 0.2-0.6 H FMETHBRT) ABGTEMP (test code = * Temp Corrected Values* ABGTEMP) ABGTEMP (test code = 37.0 ?C ABGTEMP.) pH (T) (test code = 7.498 7.350-7.450 H PHTEMP) pCO2 (T) (test code = 31.4 mmHg 35.0-45.0 L FRB8CMHR) pO2 (T) (test code = 81.7 mmHg 80.0-110.0 RS3PCXV) Device (test code = ROOM AIR DEVICE) FI02 (test code = 21.0 % FI02) Liter_flow (test code = LF) VENPAR (test code = * Ventilator Parameters VENPAR) * SIMV (test code = SIMV) A/C (test code = A/C) CPAP (test code = CPAP) PEEP (test code = PEEP) PS (test code = PS) PIP (test code = PIP) I_Time (test code = ITIME) Vt (test code = VT) BIPAP INSP (test code = BIPAPINP) BIPAP EXP (test code = BIPAPEXP) Sandro test (test code Positive = ATEST) SAMPLE SITE (test Right Radial Artery code = SSITE) COMMENT (test code = CO) URINALYSIS WITH [id number] 11:20:00 Test Item Value Reference Range Interpretation Comments COLOR (test code = COLU) YELLOW YELLOW CLARITY (test code = CLA) CLOUDY CLEAR A GLUCOSE UR (test code = UA GLUCOSE) NEGATIVE NEGATIVE BILI UR (test code = BILE) NEGATIVE NEGATIVE KETONES UR (test code = AUGUSTINE) 2+ NEGATIVE A SP GRAVITY (test code = SPGR) 1.019 1.005-1.030 PH UR (test code = PH) 7.5 4.5-8.0 PROTEIN UR (test code = PU) 1+ NEGATIVE A UROBIL UR (test code = UROQ) 2.0 EU/dL 0.2-1.0 H NITRITE UR (test code = NITRITE) NEGATIVE NEGATIVE BLOOD UR (test code = UA BLOOD) NEGATIVE NEGATIVE LEUK ES UR (test code = LEUK) NEGATIVE NEGATIVE WBC UR (test code = UWBC) 1 /HPF 0-5 RBC UR (test code = URBC) 0 /HPF 0-2 EPITH UR (test code = UEPC) FEW /LPF FEW BACTERIA UR (test code = UBACT) MANY /HPF NONE A CAST UR (test code = CAST) /LPF NONE CRYSTAL UR (test code = CRYU) / LPF NONE MUCUS UR (test code = MUC) / HPF NONE AMORPH UR (test code = SHAHEEN) / HPF NONE TRICH UR (test code = UTRICH) /HPF NONE YEAST UR (test code = UY) /HPF NONE SPERM UR (test code = USPERM) /HPF NONE BRAIN NATRIURETIC [id number] 10:57:00 Test Item Value Reference Range Interpretation Comments proBNP (test code = PBNP) 436 pg/mL 0-125 H COMPREHENSIVE METABOLIC [id number] 10:56:00 Test Item Value Reference Range Interpretation Comments GLUCOSE (test code = 06D) 103 mg/dL 75-100 H SODIUM (test code = 01A) 144 mmol/L 136-145 POTASSIUM (test code = 01B) 2.9 mmol/L 3.6-5.1 LL CHLORIDE (test code = 04A) 109 mmol/L 98-107 H CO2 (test code = 02A) 25 mmol/L [...] (test code = 08D) 3.3 g/dL 3.5-4.8 L GLOBULIN (test code = GLB) 3.7 g/dL 1.5-3.8 ALB/GLOB (test code = AGRR) 0.9 1.0-2.6 L ALK PHOS (test code = 35A) 76 IU/L 42-121 AST (test code = 30A) 22 IU/L <=42 ALT (test code = 31A) 19 IU/L <=78 [id number] 10:51:00 Test Item Value Reference Range Interpretation Comments CPK (test code = 32A) 129 IU/L 26-192 AMYLASE AND [id number] 10:51:00 Test Item Value Reference Range Interpretation Comments AMYLASE (test code = 10A) 23 U/L 28-100 L LIPASE (test code = 60A) 51 IU/L 73-393 L TROPONIN [id number] 10:50:00 Test Item Value Reference Range Interpretation Comments TROPONIN I (test code = A84) <0.015 ng/mL 0.000-0.045 PRO TIME AND [id number] 10:47:00 Test Item Value Reference Range Interpretation Comments PT (test code = 12.4 s 9.8-13.6 TT) INR (test code = 1.1 INR) INRH (test code = SUGGESTED INRH) THERAPEUTIC RANGE FOR INR: 2.5 - 3.5 For Patients with Prosthetic Valves or Patients with recurrent Thromboembolic Events 2.0 - 3.0 For Most Other Applications PTT (test code = 28.4 s 20.2-38.0 PTT) PTTH (test code = To monitor the PTTH) effectiveness of heparin, we offer the Anti-Xa (Heparin Assay). It can be used for either unfractionated or LMW Heparin. Order Code is ANTI-XA [id number] 10:47:00 Test Item Value Reference Range Interpretation Comments D-DIMER (test code = 209 ng/mL D-DU 0-234 DDI) D-DIMER COMMENT (test *Level to rule out code = DDCOM) DVT or PE: <235 ng/mL D-DU* DIRECT INFLUENZA A AND B [id number] 10:45:00 Test Item Value Reference Range Interpretation Comments Direct Exam (test PRESUMPTIVE NEGATIVE FOR code = DE1) THE PRESENCE OF INFLUENZA ANTIGEN XR CHEST 2 [id number] 10:41:59Exam: Chest x-ray 2 viewsHISTORY: Persistent coughLocation: [id number]:The heart size is normal and lung holcomb are clear. Osseous structures areintact.IMPRESSION:1. Normal chest. No change since CBC (INCLUDES AUTOMATED DIFFERENTIAL)2018-06-30 10:40:00 Test Item Value Reference Range Interpretation Comments WBC (test code = WBC) 7.3 10\S\3/uL 4.5-11.0 RBC (test code = RBC) 3.81 10\S\6/uL 4.20-5.60 L HGB (test code = HBG) 11.7 g/dL 12.0-15.5 L HCT (test code = HCT) 33.5 % 35.0-44.0 L MCV (test code = MCV) 87.9 fL [...] (test code = NE%) 75.9 % 35.0-73.0 H LYMPH % (test code = LY%) 16.0 % 20.0-55.0 L MONO % (test code = MO%) 5.9 % 2.5-10.0 EOSINOPH % (test code = EO%) 1.4 % 0.0-5.0 BASOPHIL % (test code = BA%) 0.5 % 0.0-2.0 IG % (test code = IG%) 0.3 % 0.0-0.8 NRBC% (test code = NRBC%) 0.0 % 0.0-0.2 MANDIFF (test code = MDIFF) NO NO RBC MORPH (test code = RBCMOR) NORMAL [id number] 14:47:00 Test Item Value Reference Range Interpretation Comments COLOR (test code = COLU) YELLOW [...] NEGATIVE NEGATIVE XR FOOT RIGHT COMPLETE 3 [id number] 14:27:27Right foot, 3 viewsLocation Code: [id number] HISTORY: [id number]: PainCOMMENTS: AP, lateral, and oblique views of the right foot demonstrate noacute fracture or malalignment. Dorsal soft tissue swelling noted.IMPRESSION: No acute osseous radiographic abnormality. Dorsal soft tissueswelling.CT ABDOMEN AND PELVIS WITH [id number] 13:38:45CT abdomen and pelvis with contrastLocation Code: [id number] HISTORY: Abdominal painCOMPARISON: 02/10/2018Technique: Helical CT of [...] fluid collection or free air.CT HEAD W/O [id number] 13:19:29CT brain without contrast.Location code: [id number] HISTORY: R51: HEADACHE COMPARISON: None.TECHNIQUE: Routine unenhanced [...] aerated. IMPRESSION: No acute intracranial abnormality.AMYLASE AND [id number] 13:05:00 Test Item Value Reference Range Interpretation Comments AMYLASE (test code = 10A) 36 U/L 28-100 LIPASE (test code = 60A) 67 IU/L 73-393 L COMPREHENSIVE METABOLIC [id number] 13:05:00 Test Item Value Reference Range Interpretation Comments GLUCOSE (test code = 06D) 81 mg/dL 75-100 SODIUM (test code = 01A) 142 mmol/L 136-145 POTASSIUM (test code = 01B) 4.0 mmol/L 3.6-5.1 CHLORIDE (test code = 04A) 111 mmol/L 98-107 H CO2 (test code = 02A) 25 mmol/L [...] (test code = 08D) 3.0 g/dL 3.5-4.8 L GLOBULIN (test code = GLB) 3.6 g/dL 1.5-3.8 ALB/GLOB (test code = AGRR) 0.8 1.0-2.6 L ALK PHOS (test code = 35A) 83 IU/L 42-121 AST (test code = 30A) 12 IU/L <=42 ALT (test code = 31A) 14 IU/L <=78 [id number] 13:05:00 Test Item Value Reference Range Interpretation Comments MAGNESIUM (test code = 48A) 2.1 mg/dL 1.8-2.4 SERUM [id number] 12:53:00 Test Item Value Reference Range Interpretation Comments PREG SRM (test code = PGS) NEGATIVE NEGATIVE URINALYSIS WITH [id number] 12:45:00 Test Item Value Reference Range Interpretation Comments COLOR (test code = COLU) YELLOW YELLOW CLARITY (test code = CLA) CLOUDY CLEAR A GLUCOSE UR (test code = UA GLUCOSE) [...] UR (test code = LEUK) TRACE NEGATIVE A WBC UR (test code = UWBC) 3 /HPF 0-5 RBC UR (test code = URBC) 0 /HPF 0-2 EPITH UR (test code = UEPC) FEW /LPF FEW BACTERIA UR (test code = UBACT) FEW /HPF NONE A CAST UR (test code = CAST) /LPF NONE CRYSTAL UR (test code = CRYU) / LPF NONE MUCUS UR (test code = MUC) / HPF NONE AMORPH UR (test code = SHAHEEN) / HPF NONE TRICH UR (test code = UTRICH) /HPF NONE YEAST UR (test code = UY) /HPF NONE SPERM UR (test code = USPERM) /HPF NONE PRO TIME AND [id number] 12:43:00 Test Item Value Reference Range Interpretation Comments PT (test code = 11.9 s 9.8-13.6 TT) INR (test code = 1.0 INR) INRH (test code = SUGGESTED INRH) THERAPEUTIC RANGE FOR INR: 2.5 - 3.5 For Patients with Prosthetic Valves or Patients with recurrent Thromboembolic Events 2.0 - 3.0 For Most Other Applications PTT (test code = 28.0 s 20.2-38.0 PTT) PTTH (test code = To monitor the PTTH) effectiveness of heparin, we offer the Anti-Xa (Heparin Assay). It can be used for either unfractionated or LMW Heparin. Order Code is ANTI-XA CBC (INCLUDES AUTOMATED DIFFERENTIAL)2018-03-09 12:40:00 Test Item Value Reference Range Interpretation Comments WBC (test code = WBC) 8.8 10\S\3/uL 4.5-11.0 RBC (test code = RBC) 3.09 10\S\6/uL 4.20-5.60 L HGB (test code = HBG) 9.5 g/dL 12.0-15.5 L HCT (test code = HCT) 30.0 % 35.0-44.0 L MCV (test code = MCV) 97.1 fL 81.0-99.0 MCH (test code = MCH) 30.7 pg 27.0-31.0 MCHC (test code = MCHC) 31.7 g/dL 32.0-36.0 L RDW (test code = RDW) 14.9 % 11.5-14.5 H PLT (test code = PLT) 283 10\S\3/uL 130-400 MPV (test code = MPV) 8.8 fL 9.4-12.4 L NEUTROP # (test code = NE#) 5.3 [...] MORPH (test code = RBCMOR) NORMAL BLOOD [id number] 07:45:00 Test Item Value Reference Range Interpretation Comments Culture Observations (test NO GROWTH AFTER 5 code = COB1) DAYS URINE [id number] 07:24:00 Test Item Value Reference Range Interpretation Comments Isolate 1 (test code Rhodotorula = ISO1) glutinis/mucilaginosa CBC (INCLUDES AUTOMATED DIFFERENTIAL)2018-02-15 06:29:00 Test Item Value Reference Range Interpretation Comments WBC (test code = WBC) 10.5 10\S\3/uL 4.5-11.0 RBC (test code = RBC) 2.76 10\S\6/uL 4.20-5.60 L HGB (test code = HBG) 8.6 g/dL 12.0-15.5 L HCT (test code = HCT) 26.4 % 35.0-44.0 L MCV (test code = MCV) 95.7 fL 81.0-99.0 MCH (test code = MCH) 31.2 pg 27.0-31.0 H MCHC (test code = MCHC) 32.6 g/dL [...] (test code = IG#) 0.16 10\S\3/uL 0.00-0.06 H NRBC # (test code = NRBC#) 0.00 10\S\3/uL 0.00-0.01 NEUTROPH % (test code = NE%) 65.8 % 35.0-73.0 LYMPH % (test code = LY%) 22.9 % 20.0-55.0 MONO % (test code = MO%) 7.5 % 2.5-10.0 EOSINOPH % (test code = EO%) 1.8 % 0.0-5.0 BASOPHIL % (test code = BA%) 0.5 % 0.0-2.0 IG % (test code = IG%) 1.5 % 0.0-0.8 H NRBC% (test code = NRBC%) 0.0 % 0.0-0.2 MANDIFF (test code = MDIFF) NO NO RBC MORPH (test code = RBCMOR) NORMAL [id number] 06:25:00 Test Item Value Reference Range Interpretation Comments MAGNESIUM (test code = 48A) 1.5 mg/dL 1.8-2.4 L BASIC METABOLIC [id number] 06:16:00 Test Item Value Reference Range Interpretation Comments GLUCOSE (test code = 06D) 98 mg/dL 75-100 SODIUM (test code = 01A) 145 mmol/L 136-145 POTASSIUM (test code = 01B) 3.2 mmol/L 3.6-5.1 L CHLORIDE (test code = 04A) 115 mmol/L 98-107 H CO2 (test code = 02A) 21 mmol/L 22-32 L ANION GAP (test code = ANG) 12.2 mmol/L BUN (test code = 05D) 3 mg/dL 7-18 L CREATININE (test code = 03E) 0.5 mg/dL 0.4-1.1 BUN/CREA (test code = BCR) 7 12-20 L CALCIUM (test code = 09D) 7.6 mg/dL 8.3-9.5 L NM HIDA SCAN W/ EJECTION [id number] 18:10:25HIDA scanLocation code: [id number] history: Right upper quadrant painComments: Following the [...] minutes.Impression:1. No evidence of acute cholecystitis.BASIC METABOLIC [id number] 04:35:00 Test Item Value Reference Range Interpretation Comments GLUCOSE (test code = 06D) 107 mg/dL 75-100 H SODIUM (test code = 01A) 144 mmol/L 136-145 POTASSIUM (test code = 01B) 3.3 mmol/L 3.6-5.1 L CHLORIDE (test code = 04A) 115 mmol/L 98-107 H CO2 (test code = 02A) 20 mmol/L 22-32 L ANION GAP (test code = ANG) 12.3 mmol/L BUN (test code = 05D) 4 mg/dL 7-18 L CREATININE (test code = 03E) 0.6 mg/dL 0.4-1.1 BUN/CREA (test code = BCR) 7 12-20 L CALCIUM (test code = 09D) 7.9 mg/dL 8.3-9.5 L CBC (INCLUDES AUTOMATED DIFFERENTIAL)2018-02-14 04:25:00 Test Item Value Reference Range Interpretation Comments WBC (test code = WBC) 14.0 10\S\3/uL 4.5-11.0 H RBC (test code = RBC) 3.22 10\S\6/uL 4.20-5.60 L HGB (test code = HBG) 9.7 g/dL 12.0-15.5 L HCT (test code = HCT) 30.8 % 35.0-44.0 L MCV (test code = MCV) 95.7 fL 81.0-99.0 MCH (test code = MCH) 30.1 pg 27.0-31.0 MCHC (test code = MCHC) 31.5 g/dL 32.0-36.0 L RDW (test code = RDW) 14.2 % 11.5-14.5 PLT (test code = PLT) 436 10\S\3/uL 130-400 H MPV (test code = MPV) 9.8 fL 9.4-12.4 NEUTROP # (test code = NE#) 10.1 10\S\3/uL 1.6-8.0 H LYMPH # (test code = LY#) 2.5 10\S\3/uL 1.1-3.5 MONOCYTE # (test code = MO#) 1.0 10\S\3/uL 0.0-1.1 EOSINOPH # (test code = EO#) 0.1 10\S\3/uL 0.0-0.7 BASOPHIL # (test code = BA#) 0.0 10\S\3/uL 0.0-0.3 IG # (test code = IG#) 0.29 10\S\3/uL 0.00-0.06 H NRBC # (test code = NRBC#) 0.00 10\S\3/uL 0.00-0.01 NEUTROPH % (test code = NE%) 72.2 % 35.0-73.0 LYMPH % (test code = LY%) 17.7 % 20.0-55.0 L MONO % (test code = MO%) 7.1 % 2.5-10.0 EOSINOPH % (test code = EO%) 0.6 % 0.0-5.0 BASOPHIL % (test code = BA%) 0.3 % 0.0-2.0 IG % (test code = IG%) 2.1 % 0.0-0.8 H NRBC% (test code = NRBC%) 0.0 % 0.0-0.2 MANDIFF (test code = MDIFF) NO NO RBC MORPH (test code = RBCMOR) NORMAL LACTIC [id number] 17:33:00 Test Item Value Reference Range Interpretation Comments LACTIC ACD (test code = LA) 1.8 mmol/L 0.4-2.0 U/S [id number] 15:35:17LOCATION: [id number]: 47-year-old female with nausea and vomiting.COMMENT:Sonographic imaging [...] appearance of the abdomen is unremarkable.BASIC METABOLIC [id number] 07:27:00 Test Item Value Reference Range Interpretation Comments GLUCOSE (test code = 06D) 98 mg/dL 75-100 SODIUM (test code = 01A) 145 mmol/L 136-145 POTASSIUM (test code = 01B) 3.2 mmol/L 3.6-5.1 L CHLORIDE (test code = 04A) 116 mmol/L 98-107 H CO2 (test code = 02A) 18 mmol/L 22-32 L ANION GAP (test code = ANG) 14.2 mmol/L BUN (test code = 05D) 8 mg/dL 7-18 CREATININE (test code = 03E) 0.6 mg/dL 0.4-1.1 BUN/CREA (test code = BCR) 14 12-20 CALCIUM (test code = 09D) 7.9 mg/dL 8.3-9.5 L CBC (INCLUDES AUTOMATED DIFFERENTIAL)2018-02-13 06:22:00 Test Item Value Reference Range Interpretation Comments WBC (test code = WBC) 15.0 10\S\3/uL 4.5-11.0 H RBC (test code = RBC) 2.91 10\S\6/uL 4.20-5.60 L HGB (test code = HBG) 8.8 g/dL 12.0-15.5 L HCT (test code = HCT) 27.3 % 35.0-44.0 L MCV (test code = MCV) 93.8 fL 81.0-99.0 MCH (test code = MCH) 30.2 pg 27.0-31.0 MCHC (test code = MCHC) 32.2 g/dL 32.0-36.0 RDW (test code = RDW) 14.1 % 11.5-14.5 PLT (test code = PLT) 380 10\S\3/uL 130-400 MPV (test code = MPV) 9.9 fL 9.4-12.4 NEUTROP # (test code = NE#) 10.4 10\S\3/uL 1.6-8.0 H LYMPH # (test code = LY#) 3.0 10\S\3/uL 1.1-3.5 MONOCYTE # (test code = MO#) 1.2 10\S\3/uL 0.0-1.1 H EOSINOPH # (test code = EO#) 0.1 10\S\3/uL 0.0-0.7 BASOPHIL # (test code = BA#) 0.0 10\S\3/uL 0.0-0.3 IG # (test code = IG#) 0.31 10\S\3/uL 0.00-0.06 H NRBC # (test code = NRBC#) 0.00 10\S\3/uL 0.00-0.01 NEUTROPH % (test code = NE%) 69.2 % 35.0-73.0 LYMPH % (test code = LY%) 19.9 % 20.0-55.0 L MONO % (test code = MO%) 8.1 % 2.5-10.0 EOSINOPH % (test code = EO%) 0.5 % 0.0-5.0 BASOPHIL % (test code = BA%) 0.2 % 0.0-2.0 IG % (test code = IG%) 2.1 % 0.0-0.8 H NRBC% (test code = NRBC%) 0.0 % 0.0-0.2 MANDIFF (test code = MDIFF) NO NO RBC MORPH (test code = RBCMOR) NORMAL URINALYSIS WITH [id number] 23:20:00 Test Item Value Reference Range Interpretation Comments COLOR (test code = COLU) YELLOW YELLOW CLARITY (test code = CLA) HAZY CLEAR A GLUCOSE UR (test code = UA NEGATIVE NEGATIVE GLUCOSE) BILI UR (test code = BILE) NEGATIVE NEGATIVE KETONES UR (test code = AUGUSTINE) TRACE NEGATIVE A SP GRAVITY (test code = SPGR) 1.019 1.005-1.030 PH UR (test code = PH) 6.0 4.5-8.0 PROTEIN UR (test code = PU) 1+ NEGATIVE A UROBIL UR (test code = UROQ) 0.2 EU/dL 0.2-1.0 NITRITE UR (test code = NEGATIVE NEGATIVE NITRITE) BLOOD UR (test code = UA BLOOD) NEGATIVE NEGATIVE LEUK ES UR (test code = LEUK) 1+ NEGATIVE A WBC UR (test code = UWBC) 8 /HPF 0-5 H RBC UR (test code = URBC) 2 /HPF 0-2 EPITH UR (test code = UEPC) MODERATE /LPF FEW A BACTERIA UR (test code = UBACT) MODERATE /HPF NONE A CAST UR (test code = CAST) /LPF NONE CRYSTAL UR (test code = CRYU) / LPF NONE MUCUS UR (test code = MUC) FEW / HPF NONE A AMORPH UR (test code = SHAHEEN) / HPF NONE TRICH UR (test code = UTRICH) /HPF NONE YEAST UR (test code = UY) FEW /HPF NONE A SPERM UR (test code = USPERM) /HPF NONE XR CHEST 1 VIEW [id number] 16:08:04HISTORY: DyspneaLocation code: [id number] 10 February 2018FINDINGS: Frontal view of the chest demonstrates normal cardiomediastinalsilhouette. The trachea is midline. Minimal bibasilar atelectasis. Thelungsare otherwise clear. There is no effusion or pneumothorax. The bones areintact.IMPRESSION: Minimal bibasilar atelectasis.CLOSTRIDIUM DIFFICILE [id number] 11:11:00 Test Item Value Reference Range Interpretation Comments Direct Exam (test NO CLOSTRIDIUM DIFFICILE code = DE1) TOXIN A/B DETECTED CBC WITH MANUAL [id number] 07:39:00 Test Item Value Reference Range Interpretation Comments WBC (test code = 25.4 10\S\3/uL 4.5-11.0 HH WBC) RBC (test code = 3.39 10\S\6/uL 4.20-5.60 L RBC) HGB (test code = 10.3 g/dL 12.0-15.5 L HBG) HCT (test code = 31.3 % 35.0-44.0 L HCT) MCV (test code = 92.3 fL 81.0-99.0 MCV) MCH (test code = 30.4 pg 27.0-31.0 MCH) MCHC (test code 32.9 g/dL 32.0-36.0 = MCHC) RDW (test code = 14.2 % 11.5-14.5 RDW) PLT (test code = 479 10\S\3/uL 130-400 H PLT) MPV (test code = 9.8 fL 9.4-12.4 MPV) NEUTROP # (test 20.8 10\S\3/uL 1.6-8.0 H code = NE#) LYMPH # (test 2.2 10\S\3/uL 1.1-3.5 code = LY#) MONOCYTE # (test 1.2 10\S\3/uL 0.0-1.1 H code = MO#) EOSINOPH # (test 0.0 10\S\3/uL 0.0-0.7 code = EO#) BASOPHIL # (test 0.1 10\S\3/uL 0.0-0.3 code = BA#) IG # (test code 1.13 10\S\3/uL 0.00-0.06 H = IG#) NRBC # (test 0.00 10\S\3/uL 0.00-0.01 code = NRBC#) NEUTROPH % (test 82.0 % 35.0-73.0 H code = NE%) LYMPH % (test 8.6 % 20.0-55.0 L code = LY%) MONO % (test 4.6 % 2.5-10.0 code = MO%) EOSINOPH % (test 0.0 % 0.0-5.0 code = EO%) BASOPHIL % (test 0.3 % 0.0-2.0 code = BA%) IG % (test code 4.5 % 0.0-0.8 H = IG%) NRBC% (test code 0.0 % 0.0-0.2 = NRBC%) MAN DIFF (test MANUAL code = HMDIFF) DIFFERENTIAL SEG (test code = 82 % 42-75 H 1+ Hyperseg mented SEG) Neutrophils BAND (test code 2 % 0-8 = BAND) LYMPH (test code 8 % 20-51 L = LYMPH) MONO (test code 4 % 3-11 = MONO) EOS (test code = 0 % 0-10 EOS) BASO (test code 0 % 0-2 = BASO) META (test code 4 % <=1 H = META) RBC MORPH (test NORMAL NORMAL code = RBCMORN) PLT EST (test ADEQUATE ADEQUATE code = PLTEST) PLT MORPH (test NORMAL (1.5-3 NORMAL Few large p lts code = PLTMOR) um) BASIC METABOLIC [id number] 06:01:00 Test Item Value Reference Range Interpretation Comments GLUCOSE (test code = 06D) 104 mg/dL 75-100 H SODIUM (test code = 01A) 144 mmol/L 136-145 POTASSIUM (test code = 01B) 3.2 mmol/L 3.6-5.1 L CHLORIDE (test code = 04A) 114 mmol/L 98-107 H CO2 (test code = 02A) 17 mmol/L 22-32 L ANION GAP (test code = ANG) 16.2 mmol/L BUN (test code = 05D) 11 mg/dL 7-18 CREATININE (test code = 03E) 0.8 mg/dL 0.4-1.1 BUN/CREA (test code = BCR) 14 12-20 CALCIUM (test code = 09D) 8.8 mg/dL 8.3-9.5 CBC WITH MANUAL [id number] 07:18:00 Test Item Value Reference Range Interpretation Comments WBC (test code = WBC) 19.5 10\S\3/uL 4.5-11.0 H RBC (test code = RBC) 3.19 10\S\6/uL 4.20-5.60 L HGB (test code = HBG) 9.9 g/dL 12.0-15.5 L HCT (test code = HCT) 29.5 % 35.0-44.0 L MCV (test code = MCV) 92.5 fL 81.0-99.0 MCH (test code = MCH) 31.0 pg 27.0-31.0 MCHC (test code = MCHC) 33.6 g/dL 32.0-36.0 RDW (test code = RDW) 13.8 % 11.5-14.5 PLT (test code = PLT) 435 10\S\3/uL 130-400 H MPV (test code = MPV) 9.7 fL 9.4-12.4 NEUTROP # (test code = 15.1 10\S\3/uL 1.6-8.0 H NE#) LYMPH # (test code = 1.8 10\S\3/uL 1.1-3.5 LY#) MONOCYTE # (test code = 1.0 10\S\3/uL 0.0-1.1 MO#) EOSINOPH # (test code = 0.0 10\S\3/uL 0.0-0.7 EO#) BASOPHIL # (test code = 0.1 10\S\3/uL 0.0-0.3 BA#) IG # (test code = IG#) 1.50 10\S\3/uL 0.00-0.06 H NRBC # (test code = 0.00 10\S\3/uL 0.00-0.01 NRBC#) NEUTROPH % (test code = 77.6 % 35.0-73.0 H NE%) LYMPH % (test code = 9.0 % 20.0-55.0 L LY%) MONO % (test code = 5.3 % 2.5-10.0 MO%) EOSINOPH % (test code = 0.0 % 0.0-5.0 EO%) BASOPHIL % (test code = 0.4 % 0.0-2.0 BA%) IG % (test code = IG%) 7.7 % 0.0-0.8 H NRBC% (test code = 0.0 % 0.0-0.2 NRBC%) MAN DIFF (test code = MANUAL HMDIFF) DIFFERENTIAL SEG (test code = SEG) 85 % 42-75 H BAND (test code = BAND) 0 % 0-8 LYMPH (test code = 11 % 20-51 L LYMPH) MONO (test code = MONO) 4 % 3-11 EOS (test code = EOS) 0 % 0-10 BASO (test code = BASO) 0 % 0-2 RBC MORPH (test code = ABNORMAL NORMAL A RBCMORN) PLT EST (test code = INCREASED ADEQUATE A PLTEST) PLT MORPH (test code = NORMAL (1.5-3 um) NORMAL PLTMOR) ANISO (test code = 1+ NONE A ANISO) HYPOCHROM (test code = 1+ NONE A HYPOC) MICROCYTIC (test code = 1+ NONE A MICRO) BASIC METABOLIC [id number] 05:48:00 Test Item Value Reference Range Interpretation Comments GLUCOSE (test code = 06D) 114 mg/dL 75-100 H SODIUM (test code = 01A) 148 mmol/L 136-145 H POTASSIUM (test code = 01B) 3.2 mmol/L 3.6-5.1 L CHLORIDE (test code = 04A) 119 mmol/L 98-107 H CO2 (test code = 02A) 18 mmol/L 22-32 L ANION GAP (test code = ANG) 14.2 mmol/L BUN (test code = 05D) 17 mg/dL 7-18 CREATININE (test code = 03E) 0.8 mg/dL 0.4-1.1 BUN/CREA (test code = BCR) 20 12-20 CALCIUM (test code = 09D) 8.8 mg/dL 8.3-9.5 MRI BRAIN W/O [id number] 18:15:41LOCATION: A1EXAM: MRI BRAIN W/O CONTRASTINDICATION: R51: [...] acute stroke. No acute abnormality.XR CENTRAL LINE [id number] 16:06:23EXAMINATION: NON- TUNNELED CENTRAL VENOUS CATHETER PLACEMENT.LOCATION: D4.HISTORY: The her central venous accessSEDATION: The patient did not require conscious sedation for the procedure.ANTIBIOTICS: None. Not indicated.TECHNIQUE: The risks, benefits, and alternatives were discussed and informedconsent was obtained. Prior to beginning the procedure, Holden Protocol wasused to confirm the patient's identity [...] at the bedside according to standard hospitalprotocol.U/S [id number] 16::23EXAMINATION: NON-TUNNELED CENTRAL VENOUS CATHETER PLACEMENT.LOCATION: D4.HISTORY: The her central venous accessSEDATION: The patient did not require conscious sedation for the procedure.ANTIBIOTICS: None. Not indicated.TECHNIQUE: The risks, benefits, and alternatives were discussed and informedconsent was obtained. Prior to beginning the procedure, Holden Protocol wasused to confirm the patient's identity [...] hospitalprotocol.CT ABDOMEN AND PELVIS WITH AND WITHOUT [id number] 15:59:28 Exam: CT abdomen and pelvis with and without contrast.Location: D4.History: [id number]: Abdominal [id number]: VomitingTechnique: Unenhanced and enhanced spiral slices were [...] enteritis.3. Nephrolithiasis.4. Small, fixed hiatalhernia.XR CHEST 1 [id number] 08:54:41Portable AP chest, 1 viewLocation Code: [id number] HISTORY: Chest painCOMPARISON: NoneCOMMENT: There is mild prominence of the central pulmonary vasculature and interstitium.Mild atelectasis is present within the lung bases. There is no lobarconsolidation or effusion. IMPRESSION: Mild central congestive changes and bibasilar atelectasis.XR ABDOMEN 1 VIEW [id number] 08:54:16Abdomen, 1 viewLocation Code: [id number] history: Lower abdominal painComments: The bowel gas pattern is unremarkable. There is no visualizedabnormal calcification. The visualized osseous structures are intact.Impression: No acute radiographic abnormality. GLUCOMETER GLUCOSE- LAB USE [id number] 07:50:00 Test Item Value Reference Range Interpretation Comments GLUCOMETER (test code 157 mg/dL 70-100 H CLEANE D METERMeter ID: = GMG) [id number] tor: 9410 GROVERHUMBLE DUSTY ES CBC WITH MANUAL [id number] 06:57:00 Test Item Value Reference Range Interpretation Comments WBC (test code = WBC) 19.4 10\S\3/uL 4.5-11.0 H RBC (test code = RBC) 3.66 10\S\6/uL 4.20-5.60 L HGB (test code = HBG) 11.2 g/dL 12.0-15.5 L HCT (test code = HCT) 34.4 % 35.0-44.0 L MCV (test code = MCV) 94.0 fL 81.0-99.0 MCH (test code = MCH) 30.6 pg 27.0-31.0 MCHC (test code = MCHC) 32.6 g/dL 32.0-36.0 RDW (test code = RDW) 14.1 % 11.5-14.5 PLT (test code = PLT) 362 10\S\3/uL 130-400 MPV (test code = MPV) 10.3 fL 9.4-12.4 NEUTROP # (test code = 15.9 10\S\3/uL 1.6-8.0 H NE#) LYMPH # (test code = 1.3 10\S\3/uL 1.1-3.5 LY#) MONOCYTE # (test code = 0.4 10\S\3/uL 0.0-1.1 MO#) EOSINOPH # (test code = 0.0 10\S\3/uL 0.0-0.7 EO#) BASOPHIL # (test code = 0.2 10\S\3/uL 0.0-0.3 BA#) IG # (test code = IG#) 1.65 10\S\3/uL 0.00-0.06 H NRBC # (test code = 0.00 10\S\3/uL 0.00-0.01 NRBC#) NEUTROPH % (test code = 81.6 % 35.0-73.0 H NE%) LYMPH % (test code = 6.9 % 20.0-55.0 L LY%) MONO % (test code = 2.1 % 2.5-10.0 L MO%) EOSINOPH % (test code = 0.0 % 0.0-5.0 EO%) BASOPHIL % (test code = 0.9 % 0.0-2.0 BA%) IG % (test code = IG%) 8.5 % 0.0-0.8 H NRBC% (test code = 0.0 % 0.0-0.2 NRBC%) MAN DIFF (test code = MANUAL HMDIFF) DIFFERENTIAL SEG (test code = SEG) 83 % 42-75 H BAND (test code = BAND) 1 % 0-8 LYMPH (test code = 13 % 20-51 L LYMPH) MONO (test code = MONO) 3 % 3-11 EOS (test code = EOS) 0 % 0-10 BASO (test code = BASO) 0 % 0-2 RBC MORPH (test code = ABNORMAL NORMAL A RBCMORN) PLT EST (test code = ADEQUATE ADEQUATE PLTEST) PLT MORPH (test code = NORMAL (1.5-3 um) NORMAL PLTMOR) ANISO (test code = 1+ NONE A ANISO) HYPOCHROM (test code = 1+ NONE A HYPOC) MACRO (test code = 1+ NONE A MACRO) TROPONIN [id number] 05:58:00 Test Item Value Reference Range Interpretation Comments TROPONIN I (test code = A84) <0.015 ng/mL 0.000-0.045 COMPREHENSIVE METABOLIC [id number] 05:44:00 Test Item Value Reference Range Interpretation Comments GLUCOSE (test code = 06D) 157 mg/dL 75-100 H SODIUM (test code = 01A) 140 mmol/L 136-145 POTASSIUM (test code = 01B) 3.7 mmol/L 3.6-5.1 CHLORIDE (test code = 04A) 113 mmol/L 98-107 H CO2 (test code = 02A) 14 mmol/L 22-32 L ANION GAP (test code = ANG) 16.7 mmol/L BUN (test code = 05D) 30 mg/dL 7-18 H CREATININE (test code = 03E) 0.9 mg/dL 0.4-1.1 BUN/CREA (test code = BCR) 34 12-20 H CALCIUM (test code = 09D) 9.0 mg/dL 8.3-9.5 BILI TOTAL (test code = 11A) 0.4 mg/dL 0.2-1.0 PROTEIN (test code = 07D) 7.9 g/dL 6.4-8.2 ALBUMIN (test code = 08D) 2.8 g/dL 3.5-4.8 L GLOBULIN (test code = GLB) 5.1 g/dL 1.5-3.8 H ALB/GLOB (test code = AGRR) 0.5 1.0-2.6 L ALK PHOS (test code = 35A) 83 IU/L 42-121 AST (test code = 30A) 13 IU/L <=42 ALT (test code = 31A) 13 IU/L <=78 GLUCOMETER GLUCOSE- LAB USE [id number] 01:52:00 Test Item Value Reference Range Interpretation Comments GLUCOMETER (test code = 110 mg/dL 70-100 H Mete r ID: GMG) [id number] tor: [id number] [address] Y TROPONIN [id number] 00:02:00 Test Item Value Reference Range Interpretation Comments TROPONIN I (test code = A84) <0.015 ng/mL 0.000-0.045
[2020-02-14] MEDS ORDERED: METOCLOPRAMIDE 10 MG/2mL INJ ONE (13:23)
[2020-02-14] MEDS ORDERED: NA CHLORIDE 0.9% 1,000 ML ONE (13:24)
[2020-02-14] MEDS ORDERED: DIPHENHYDRAMINE 50 MG/ML VIAL ONE (13:24)
[2020-02-14] MEDS ORDERED: KETOROLAC 30 MG/ML INJ ONE (13:24)
[2020-02-14 14:43] LABS: ALT/SGPT 13 U/L (12-78); Albumin 3.7 g/dL (3.4-5.0); Alkaline Phosphatase 61 U/L (45-117); BUN Blood Urea Nitrogen 12 mg/dL (7-18); Bicarbonate 27 mmol/L (21-32); Bilirubin Direct < 0.1 mg/dL (0-0.2); Bilirubin Total 0.4 mg/dL (0.2-1.0); Glucose Level 96 mg/dL (74-106); Lipase 71 U/L (73-393); Protein, Total 7.4 g/dL (6.4-8.2); Sodium Level 143 mmol/L (136-145)
[2020-02-14 14:45] LABS: AST/SGOT 16 U/L (15-37)
[2020-02-14 14:48] LABS: Potassium 2.9 mmol/L (3.5-5.1)
[2020-02-14 15:07] LABS: Absolute Lymphocytes (CBC) 1.9 K/uL (0.7-4.9); Basophils % 0.5 % (0-1.3); MPV 7.9 fL (7.6-11.3); RBC Red Blood Cell Count 2.76 M/uL (3.86-4.86)
[2020-02-14] MEDS ORDERED: POTASSIUM 25 MEQ EFFERV TAB ONE (15:17)
[2020-02-14] MEDS ORDERED: MORPHINE 4 MG/ML SYR ONE ×2 (15:20→16:03)
[2020-02-14] MEDS ORDERED: ONDANSETRON 4 MG/2 ML VIAL ONE ×2 (15:21→16:04)
--- NOTE | 2020-02-14 16:29 | RAD REPORT ---
EXAM DESCRIPTION: CT - Abdomen Pelvis Wo Contrast - 02/14/2020 4:19 pm CLINICAL HISTORY: Abdominal pain. ABD PAIN COMPARISON: Abdomen Pelvis W Contrast dated 10/07/2019 TECHNIQUE: CT imaging of the abdomen and pelvis was performed without contrast. Solid organ, bowel a nd vascular assessment is limited due to lack of IV and oral contrast. All CT scans are performed using dose optimization technique as appropriate and may include automated exposure control or mA/KV adjustment according to patient size. FINDINGS: The lower lung holcomb are clear.Small stones are present in the gallbladder. The liver, spleen, pancreas, adrenal glands are within normal limits for a limited non-contrast exami nation.Caliceal stones are present both kidneys without hydronephrosis. No bowel obstruction, free air, free fluid or abscess. Mild thickening of the colon is seen suggestin g a nonspecific colitis. The appendix is normal. The osseous structures are within normal limits. IMPRESSION: Mild nonspecific colitis involving the majority of the colon, but most notable in the tr ansverse colon. No pneumatosis. Bilateral nephrolithiasis without hydronephrosis. Cholelithiasis. A limited non-contrast examination was performed as detailed.
--- NOTE | 2020-02-14 16:41 | ER ---
Nurse's Notes [facility] Name: Margie Garcia Age: 49 yrs Sex: Female : 1970 Arrival Date: 02/14/2020 Time: 12:20 Bed 16 Private MD: Diagnosis: Migraine;Colitis;Hypokalemia Presentation: 02/13 12:26 Chief complaint: Patient states: Migraine with N/V for 1 week. Coronavirus screen: ll1 Client denies travel out of the [place] in the last 14 days. At this time, the client does not indicate any symptoms associated with coronavirus-19. Ebola Screen: Patient denies travel to an Ebola-affected area in the 21 days before illness onset. Initial Sepsis Screen: Does the patient meet any 2 criteria? No. Patient's initial sepsis screen is negative. Risk Assessment: Do you want to hurt yourself or someone else? Patient reports no desire to harm self or others. Onset of symptoms was February 07, 2020. 12:26 Method Of Arrival: Wheelchair ll1 12:26 Acuity: BHARAT 3 ll1 Historical: - Allergies: 12:25 Imitrex; ll1 - PMHx: 12:25 Hypertension; Migraines; ll1 - Immunization history:: Flu vaccine is not up to date. - Social history:: Smoking status: Patient/guardian denies using tobacco, but has a distant history of tobacco abuse, Patient/guardian denies using alcohol, street drugs. Screenin:20 Abuse screen: Denies threats or abuse. Denies injuries from another. Nutritional jr10 screening: No deficits noted. Tuberculosis screening: No symptoms or risk factors identified. Fall Risk No fall in past 12 months (0 pts). No secondary diagnosis (0 pts). IV access (20 points). Ambulatory Aid- None/Bed Rest/Nurse Assist (0 pts). Gait- Weak (10 pts.). Mental Status- Oriented to own ability (0 pts). Assessment: 14:00 General: Appears in no apparent distress. Behavior is calm, cooperative, appropriate jr10 for age. Pain: Complains of pain in generalized SANDOVAL, abd pain Pain currently is 9 out of 10 on a pain scale. Quality of pain is described as aching, crampy, throbbing, Pain began 1 week. Neuro: No deficits noted. Reports dizziness, headache pt reports hx of migraines with aura. Denies blurred vision. Cardiovascular: No deficits noted. Denies chest pain. Respiratory: No deficits noted. Airway Respiratory effort is even, unlabored, Respiratory pattern is regular, symmetrical, Breath sounds are clear bilaterally. GI: Abdomen is non-distended, Bowel sounds present X 4 quads. Abd is soft and non tender X 4 quads. Reports lower abdominal pain, upper abdominal pain, diarrhea, intolerance of fluids, intolerance of food, nausea, vomiting. : No deficits noted. No signs and/or symptoms were reported regarding the genitourinary system. EENT: No deficits noted. No signs and/or symptoms were reported regarding the EENT system. Derm: No deficits noted. No signs and/or symptoms reported regarding the dermatologic system. Musculoskeletal: No deficits noted. No signs and/or symptoms reported regarding the musculoskeletal system. 15:26 Reassessment: Pt attempted to drink PO potassium post zofran admin, started to vomit. jr10 Fluids restarted and pain medication administered. Will continue to monitor. KYARA Benitez notified and aware. Vital Signs: 12:26 BP 116 / 93; Pulse 75; Resp 20; Temp 98.4; Pulse Ox 100% ; Weight 74.84 kg; Height 5 ll1 ft. 5 in. (165.10 cm); Pain 9/10; 15:12 BP 143 / 99; Pulse 66; Resp 20; Pulse Ox 99% ; Pain 9/10; jr10 16:17 BP 131 / 89; Pulse 66; Resp 20; Pulse Ox 100% on R/A; jr10 17:14 BP 159 / 95; Pulse 64; Resp 20; Pulse Ox 99% on R/A; Pain 2/10; jr10 12:26 Body Mass Index 27.46 (74.84 kg, 165.10 cm) ll1 [place] Coma Score: 15:52 Eye Response: spontaneous(4). Verbal Response: oriented(5). Motor Response: obeys kb commands(6). Total: 15. ED Course: 12:20 Patient arrived in ED. rg4 12:27 Triage completed. ll1 12:27 Arm band placed on Patient placed in an exam room, on a stretcher. ll1 12:43 Adelia Lorenzo, MARCK is Primary Nurse. jr10 12:47 Blank Harding FNP-C is PHCP. kb 12:47 Bobo Hidalgo MD is Attending Physician. kb 14:00 Patient has correct armband on for positive identification. Bed in low position. Call jr10 light in reach. Side rails up X2. Pulse ox on. NIBP on. 14:00 No provider procedures requiring assistance completed. Inserted saline lock: 22 gauge jr10 in right hand, using aseptic technique. IV is patent, is intact, with fluids infusing freely, with good blood return, Flushed. 14:35 assisted patient to bathroom via wheelchair. mt 14:40 recollect lavender top, good blood return. mt 15:59 PHCP role handed off by Blank Harding FNP-C jr8 15:59 Samuel Shafer PA is PHCP. jr8 16:19 Abdomen In Process Unspecified. EDMS 16:41 Tessie Ji MD is Referral Physician. jr8 17:16 IV discontinued, intact, bleeding controlled, No redness/swelling at site. Pressure jr10 dressing applied. Administered Medications: 14:00 Drug: NS 0.9% 1000 ml Route: IV; Rate: 1000 ml; Site: right hand; jr10 14:00 Drug: TORadol 30 mg Route: IVP; Site: right hand; jr10 15:00 Follow up: Response: No adverse reaction; Pain is unchanged, physician notified jr10 14:02 Drug: Benadryl 12.5 mg Route: IVP; Site: right hand; jr10 15:00 Follow up: Response: No adverse reaction; Pain is unchanged, physician notified jr10 14:04 Drug: Reglan 10 mg Route: IVP; Site: right hand; jr10 15:00 Follow up: Response: No adverse reaction jr10 15:20 Drug: Zofran (Ondansetron) 4 mg Route: IVP; Site: right hand; jr10 15:54 Follow up: Response: No adverse reaction jr10 15:22 Drug: morphine 4 mg Route: IVP; Site: right hand; jr10 15:54 Follow up: Response: No adverse reaction jr10 15:59 Drug: Zofran (Ondansetron) 4 mg Route: IVP; Site: right hand; jr10 16:42 Follow up: Response: No adverse reaction jr10 15:59 Drug: morphine 4 mg Route: IVP; Site: left hand; jr10 16:41 Follow up: Response: No adverse reaction jr10 17:13 Drug: Bentyl 20 mg Route: PO; jr10 17:14 Drug: Potassium Effervescent Tablet 50 mEq Route: PO; jr10 Outcome: 16:41 Discharge ordered by MD. jr8 17:15 Discharged to home via wheelchair. jr10 17:15 Condition: improved 17:15 Discharge instructions given to patient, Instructed on discharge instructions, follow up and referral plans. Demonstrated understanding of instructions, follow-up care, medications, Prescriptions given X x5 17:16 Patient left the ED. jr10 Signatures: Dispatcher [employer] EDMS Blank Harding, RETIREMENT SALES CONSULTANT-C RETIREMENT SALES CONSULTANT-CkSamuel Clark PA PA jr8 Ana Paula Figueroa4 [place], [facility] Melissa Lawson RN RN ll1 Adelia Lorenzo RN RN jr10 Corrections: (The following items were deleted from the chart) 16:17 13:20 General: Appears in no apparent distress. Behavior is calm, cooperative, jr10 appropriate for age, jr10 16:17 13:20 Pain: Complains of pain in generalized SANDOVAL, abd pain Pain currently is 9 out of 10 jr10 on a pain scale. Quality of pain is described as aching, crampy, throbbing, Pain began 1 week jr10 16:17 13:20 Neuro: No deficits noted. Reports dizziness, headache pt reports hx of migraines jr10 with aura. Denies blurred vision jr10 16:17 13:20 Cardiovascular: No deficits noted. Denies chest pain, jr10 jr10 16:17 13:20 Respiratory: No deficits noted. Airway Respiratory effort is even, unlabored, jr10 Respiratory pattern is regular, symmetrical, Breath sounds are clear bilaterally. jr10 16:17 13:20 GI: Abdomen is non-distended, Bowel sounds present X 4 quads. Abd is soft and non jr10 tender X 4 quads. Reports lower abdominal pain, upper abdominal pain, diarrhea, intolerance of fluids, intolerance of food, nausea, vomiting, jr10 16:17 13:20 : No deficits noted. No signs and/or symptoms were reported regarding the jr10 genitourinary system. jr10 16:17 13:20 EENT: No deficits noted. No signs and/or symptoms were reported regarding the jr10 EENT system. jr10 16:17 13:20 Derm: No deficits noted. No signs and/or symptoms reported regarding the jr10 dermatologic system. jr10 16:17 13:20 Musculoskeletal: No deficits noted. No signs and/or symptoms reported regarding jr10 the musculoskeletal system. jr10 16:18 13:20 Patient has correct armband on for positive identification. Bed in low position. jr10 Call light in reach. Side rails up X2. jr10 16:18 13:20 Pulse ox on. NIBP on. jr10 jr10 16:18 13:20 No provider procedures requiring assistance completed. jr10 jr10 16:18 13:20 Inserted saline lock: 22 gauge in right hand, using aseptic technique. IV is jr10 patent, is intact, with fluids infusing freely, with good blood return, Flushed jr10
--- NOTE | 2020-02-14 16:42 | EDPHYS ---
Physician Documentation [facility] Name: Margie Garcia Age: 49 yrs Sex: Female : 1970 Arrival Date: 02/14/2020 Time: 12:20 Bed 16 Private MD: ED Physician Bobo Hidalgo HPI: 02/13 15:51 This 49 yrs old Female presents to ER via Wheelchair with complaints of kb MIGRAINE. 15:51 The patient complains of pain to the forehead. The patient describes the headache as kb constant. Onset: The symptoms/episode began/occurred 1 week(s) ago. Associated signs and symptoms: Pertinent positives: nausea, Photophobia. Severity of symptoms: At its worst the pain was moderate, in the emergency department the pain is unchanged. Headache History: The patient has had previous headaches and this one is similar to previous episodes. The symptoms are alleviated by nothing. the symptoms are aggravated by lights, movement. The patient has experienced similar episodes in the past. The patient has not recently seen a physician. Historical: - Allergies: 12:25 Imitrex; ll1 - PMHx: 12:25 Hypertension; Migraines; ll1 - Immunization history:: Flu vaccine is not up to date. - Social history:: Smoking status: Patient/guardian denies using tobacco, but has a distant history of tobacco abuse, Patient/guardian denies using alcohol, street drugs. ROS: 15:49 Constitutional: Negative for fever, chills, and weight loss, ENT: Negative for injury, kb pain, and discharge, Neck: Negative for injury, pain, and swelling, Cardiovascular: Negative for chest pain, palpitations, and edema, Respiratory: Negative for shortness of breath, cough, wheezing, and pleuritic chest pain, Back: Negative for injury and pain, MS/Extremity: Negative for injury and deformity, Skin: Negative for injury, rash, and discoloration. 15:49 Abdomen/GI: Positive for abdominal pain, nausea, vomiting, and diarrhea, Negative for constipation, abdominal cramps, abdominal distension, anorexia. 15:49 Neuro: Positive for headache. Exam: 15:49 Constitutional: This is a well developed, well nourished patient who is awake, alert, kb and in no acute distress. Head/Face: Normocephalic, atraumatic. Chest/axilla: Normal chest wall appearance and motion. Nontender with no deformity. No lesions are appreciated. Cardiovascular: Regular rate and rhythm with a normal S1 and S2. No gallops, murmurs, or rubs. Normal PMI, no JVD. No pulse deficits. Respiratory: Lungs have equal breath sounds bilaterally, clear to auscultation and percussion. No rales, rhonchi or wheezes noted. No increased work of breathing, no retractions or nasal flaring. Back: No spinal tenderness. No costovertebral tenderness. Full range of motion. Skin: Warm, dry with normal turgor. Normal color with no rashes, no lesions, and no evidence of cellulitis. MS/ Extremity: Pulses equal, no cyanosis. Neurovascular intact. Full, normal range of motion. Neuro: Awake and alert, GCS 15, oriented to person, place, time, and situation. Cranial nerves II-XII grossly intact. Motor strength 5/5 in all extremities. Sensory grossly intact. Cerebellar exam normal. Normal gait. 15:49 Abdomen/GI: Inspection: abdomen appears normal, Bowel sounds: normal, in all quadrants, Palpation: soft, in all quadrants, mild abdominal tenderness, in the right upper quadrant and left upper quadrant, moderate abdominal tenderness, in the right lower quadrant and left lower quadrant. 16:06 Abdomen/GI: Rectal exam: is unremarkable, Stool: guaiac negative. kb Vital Signs: 12:26 BP 116 / 93; Pulse 75; Resp 20; Temp 98.4; Pulse Ox 100% ; Weight 74.84 kg; Height 5 ll1 ft. 5 in. (165.10 cm); Pain 9/10; 15:12 BP 143 / 99; Pulse 66; Resp 20; Pulse Ox 99% ; Pain 9/10; jr10 16:17 BP 131 / 89; Pulse 66; Resp 20; Pulse Ox 100% on R/A; jr10 17:14 BP 159 / 95; Pulse 64; Resp 20; Pulse Ox 99% on R/A; Pain 2/10; jr10 12:26 Body Mass Index 27.46 (74.84 kg, 165.10 cm) ll1 [place] Coma Score: 15:52 Eye Response: spontaneous(4). Verbal Response: oriented(5). Motor Response: obeys kb commands(6). Total: 15. MDM: 12:47 Patient medically screened. kb 15:49 Data reviewed: vital signs, nurses notes. Data interpreted: Pulse oximetry: on room air kb is 99 %. Interpretation: normal. 15:52 ED course: Pt reports migraine for one week. States she has had migraines since 3rd kb grade and this one is similar. Also reports abd pain that started at the beginning of the summer. States she came here when it first started (in September) and was told to follow up with GI. States she has been unable to get appt with GI so she hasn't followed up.. 16:08 Transition of care: After a detail discussion of the patient's case, care is kb transferred to Samuel WINN. 16:40 Data reviewed: lab test result(s), radiologic studies, CT scan. Counseling: I had a jr8 detailed discussion with the patient and/or guardian regarding: the historical points, exam findings, and any diagnostic results supporting the discharge/admit diagnosis, lab results, radiology results, the need for outpatient follow up, a feather edger, a neurologist, to return to the emergency department if symptoms worsen or persist or if there are any questions or concerns that arise at home. Response to treatment: the patient's symptoms have markedly improved after treatment. Special discussion: Based on the patient's Hx, exam, and Dx evaluation, there is no indication for emergent surgery or inpatient Tx. It is understood by the patient/guardian that if the Sx's persist or worsen they need to return immediately for re-evaluation. 02/13 13:09 Order name: Basic Metabolic Panel kb 02/13 13:09 Order name: CBC with Diff; Complete Time: 15:18 kb 02/13 13:09 Order name: Hepatic Function kb 02/13 13:09 Order name: Lipase; Complete Time: 14:54 kb 02/13 13:09 Order name: Basic Metabolic Panel; Complete Time: 14:54 EDMS 02/13 14:55 Interpretation: K 2.9. kb 02/13 13:09 Order name: Liver (Hepatic) Function; Complete Time: 14:54 EDMS 02/13 16:09 Order name: Occult Blood--Ancillary bd 02/13 16:17 Order name: Abdomen ; Complete Time: 16:40 EDMS 02/13 13:09 Order name: IV Saline Lock; Complete Time: 14:14 kb 02/13 13:09 Order name: Labs collected and sent; Complete Time: 14:14 kb 02/13 14:31 Order name: Labs - recollect needed: recollect siomara torres; Complete Time: 14:41 bd Administered Medications: 14:00 Drug: NS 0.9% 1000 ml Route: IV; Rate: 1000 ml; Site: right hand; jr10 14:00 Drug: TORadol 30 mg Route: IVP; Site: right hand; jr10 15:00 Follow up: Response: No adverse reaction; Pain is unchanged, physician notified jr10 14:02 Drug: Benadryl 12.5 mg Route: IVP; Site: right hand; jr10 15:00 Follow up: Response: No adverse reaction; Pain is unchanged, physician notified jr10 14:04 Drug: Reglan 10 mg Route: IVP; Site: right hand; jr10 15:00 Follow up: Response: No adverse reaction jr10 15:20 Drug: Zofran (Ondansetron) 4 mg Route: IVP; Site: right hand; jr10 15:54 Follow up: Response: No adverse reaction jr10 15:22 Drug: morphine 4 mg Route: IVP; Site: right hand; jr10 15:54 Follow up: Response: No adverse reaction jr10 15:59 Drug: Zofran (Ondansetron) 4 mg Route: IVP; Site: right hand; jr10 16:42 Follow up: Response: No adverse reaction jr10 15:59 Drug: morphine 4 mg Route: IVP; Site: left hand; jr10 16:41 Follow up: Response: No adverse reaction jr10 17:13 Drug: Bentyl 20 mg Route: PO; jr10 17:14 Drug: Potassium Effervescent Tablet 50 mEq Route: PO; jr10 Disposition: 02/14 09:02 Co-signature as Attending Physician, Bobo Hidalgo MD I agree with the assessment and kdr plan of care. Disposition: 02/14/20 16:41 Discharged to Home. Impression: Migraine, Colitis, Hypokalemia. - Condition is Stable. - Discharge Instructions: Potassium Content of Foods, Migraine Headache, Hypokalemia, Colitis. - Prescriptions for Bentyl 20 mg Oral Tablet - take 1 tablet by ORAL route every 6 hours As needed; 20 tablet. Cipro 500 mg Oral Tablet - take 1 tablet by ORAL route every 12 hours for 10 days; 20 tablet. Flagyl 500 mg Oral Tablet - take 1 tablet by ORAL route every 6 hours for 10 days; 40 tablet. Amitriptyline 25 mg Oral Tablet - take 1 tablet by ORAL route At bedtime As needed; 30 tablet. promethazine 25 mg Oral Tablet - take 1 tablet by ORAL route every 6 hours As needed; 20 tablet. - Medication Reconciliation Form, Thank You Letter, Antibiotic Education, Prescription Opioid Use form. - Follow up: Tessie Ji MD; When: 1 week; Reason: Recheck today's complaints, Continuance of care, Re-evaluation by your physician. - Problem is new. - Symptoms have improved. Signatures: Dispatcher [employer] [facility] Blank Harding, SED SPECIAL EDUCATION TEACHER-C SED SPECIAL EDUCATION TEACHER-Ckb Rosana Clayton Kevin, MD MD kdr Roszak, Josh, PA PA jr8 Melissa Lawson RN RN ll1 Adelia Lorenzo RN RN jr10 Corrections: (The following items were deleted from the chart) 02/13 16:17 16:00 Abdomen Pelvis W Con+CT.RAD.BRZ ordered. [facility] 17:16 16:41 02/14/2020 16:41 Discharged to Home. Impression: Migraine; Colitis; Hypokalemia. jr10 Condition is Stable. Forms are Medication Reconciliation Form, Thank You Letter, Antibiotic Education, Prescription Opioid Use. Follow up: Tessie Ji; When: 1 week; Reason: Recheck today's complaints, Continuance of care, Re-evaluation by your physician. Problem is new. Symptoms have improved. jr8
[2020-02-14] MEDS ORDERED: DICYCLOMINE HCL 10 MG CAP ONE (17:12)
[2020-02-14 17:24] VITALS: TEMP 98.4
[2020-02-14 17:28] VITALS: BP 159/95; O2SAT 99
== END 2020-02-14 17:16 | disposition home or self-care (01) ==
LOC: ER 12:10
DX: G43.909 Migraine, unspecified, not intractable, without status migrainosus (principal); E87.6 Hypokalemia; K52.9 Noninfective gastroenteritis and colitis, unspecified; I10 Essential (primary) hypertension; Z88.8 Allergy status to other drugs, medicaments and biological substances
CPT/HCPCS: 85025; 80048; 36415; 80076; 83690; 74176; 96375; 96374; 99284; J2765; J1200; J7030; J2405 ×2

== ENCOUNTER 2021-08-20 08:30 | Emergency (ER) | payer BC, OTHER, SELFPAY ==
--- OUTSIDE RECORDS SUMMARY | 2021-08-20 08:35 | XMS REPORT | Continuity of Care Document ---
:1970 Author Organization [facility] t Address [address] [id number] Care Team Providers Name Role Phone DR [...] Facility Department ID 2019-01-21 2019-01-24 [facility] [id number] 28 [place] 17:51:00 [facility] 2018-07-16 2018-07-19 [facility] [id number] [place] 15:24:00 14:47:00 [facility] 2018-06-30 2018-07-01 [facility] [id number] 057 [place] 16:03:00 17:15:00 [facility] 2018-05-17 2018-05-17 [facility] [id number] 59 [place] 13:38:00 15:27:00 [facility] 2018-03-09 2018-03-09 [facility] [id number] [place] 10:29[facility]00 [facility] Results Test Description Test Time Test Comments [...] 09D) 8.3 mg/dL 8.3-9.5 CBC (INCLUDES AUTOMATED DIFFERENTIAL)*[id number] 05:53:00 Test Item Value Reference Range Interpretation [...] 48A) 2.0 mg/dL 1.8-2.4 CBC (INCLUDES AUTOMATED DIFFERENTIAL)*[id number] 05:59:00 Test Item Value Reference Range Interpretation [...] A84) <0.015 ng/mL 0.000-0.045 CBC (INCLUDES AUTOMATED DIFFERENTIAL)*[id number] 06:06:00 Test Item Value Reference Range Interpretation [...] 09D) 8.7 mg/dL 8.3-9.5 CBC (INCLUDES AUTOMATED DIFFERENTIAL)*[id number] 06:00:00 Test Item Value Reference Range Interpretation [...] (test code = NORMAL WRBCMOR) URINALYSIS WITH [id number] 21:55:00 Test Item Value Reference Range Interpretation [...] code = USPERM) /HPF NONE DRUGS OF [id number] 21:55:00 Test Item Value Reference Range Interpretation [...] 2000 ng/mL CT ABDOMEN AND PELVIS WITH [id number] 21:03:20Exam: CT abdomen and pelvis with contrast.Location: [...] CONTRAST 2019-01-20 21:02:21Chest CT with contrast.Location Code: [id number] HISTORY: chest pain, vomitingCOMPARISON: NoneTechnique: Helical CT [...] patientsize, and/or utilization of iterative reconstruction technique.OCCULT [id number] 20:16:00 Test Item Value Reference Range Interpretation Comments Direct Exam (test code POSITIVE FOR OCCULT = DE1) BLOOD [id number] 20:03:00 Test Item Value Reference Range Interpretation Comments D-DIMER (test code = <200 ng/mL D-DU 0-234 DDI) D-DIMER COMMENT (test *Level to rule out code = DDCOM) DVT or PE: <235 ng/mL D-DU* PRO TIME AND [id number] 20:03:00 Test Item Value Reference Range Interpretation [...] or LMW Heparin. Order Code is ANTI-XA [id number] 20:02:00 Test Item Value Reference Range Interpretation Comments CPK (test code = 32A) 140 IU/L 26-192 COMPREHENSIVE METABOLIC [id number] 20:02:00 Test Item Value Reference Range Interpretation [...] code = 31A) 18 IU/L <=78 TROPONIN [id number] 19:55:00 Test Item Value Reference Range Interpretation Comments TROPONIN I (test code = A84) <0.015 ng/mL 0.000-0.045 XR CHEST 1 VIEW [id number] 19:40:49Exam: Chest portable erectLocation: H 12History: chest [...] code = MDIFF) NO NO COMPREHENSIVE METABOLIC [id number] 04:10:00 Test Item Value Reference Range Interpretation [...] (test code = RBCMOR) NORMAL BASIC METABOLIC [id number] 05:47:00 Test Item Value Reference Range Interpretation [...] code = 09D) 8.3 mg/dL 8.3-9.5 CARDIAC [id number] 02:45:00 Test Item Value Reference Range Interpretation Comments TROPONIN I (test code = A84) 0.059 ng/mL 0.000-0.045 H CARDIAC [id number] 18:36:00 Test Item Value Reference Range Interpretation Comments TROPONIN I (test code = A84) 0.059 ng/mL 0.000-0.[address] ABDOMEN AND PELVIS WITH [id number] 15:14:52EXAM: CT abdomen and pelvis with contrastLocation: [...] iterative reconstruction technique.DLP: 1534 mGy-cm CTDI 28 [id number] 13:05:00 Test Item Value Reference Range Interpretation Comments MAGNESIUM (test code = 48A) 1.9 mg/dL 1.8-2.4 CT HEAD W/O [id number] 12:54:16EXAM: CT head without contrastLocation: [id number]: NoneINDICATION: HeadacheTECHNIQUE: Axial images of the brain [...] technique.DLP: 854 mGy-cm CTDI 45 mGyDRUGS OF [id number] 12:54:00 Test Item Value Reference Range Interpretation [...] 200 ng/mL Opiates 2000 ng/mL URINALYSIS WITH [id number] 12:46:00 Test Item Value Reference Range Interpretation [...] (test code = USPERM) /HPF NONE URINE [id number] 12:39:00 Test Item Value Reference Range Interpretation Comments PREG UR (test code = PGU) NEGATIVE NEGATIVE COMPREHENSIVE METABOLIC [id number] 12:37:00 Test Item Value Reference Range Interpretation [...] = 31A) 17 IU/L <=78 AMYLASE AND [id number] 12:34:00 Test Item Value Reference Range Interpretation Comments AMYLASE (test code = 10A) 53 U/L 28-100 LIPASE (test code = 60A) 45 IU/L 73-393 L TROPONIN [id number] 12:33:00 Test Item Value Reference Range Interpretation Comments TROPONIN I (test code = A84) 0.087 ng/mL 0.000-0.045 H [id number] 12:26:00 Test Item Value Reference Range Interpretation [...] code = RBCMOR) NORMAL DIRECT STREP GROUP [id number] 07:45:00 Test Item Value Reference Range Interpretation Comments Culture Observations NO BETA HEMOLYTIC (test code = COB1) STREPTOCOCCUS ISOLATED Direct Exam (test code NO STREPTOCOCCUS GROUP = DE1) A ANTIGEN DETECTED THYROID PANEL/SCREEN (TSH)2018-07-01 05:50:00 Test Item Value Reference Range Interpretation Comments TSH (test code = A57) 0.453 uIU/mL 0.358-3.740 CARDIAC [id number] 05:16:00 Test Item Value Reference Range Interpretation Comments TROPONIN I (test code = A84) <0.015 ng/mL 0.000-0.045 BASIC METABOLIC [id number] 04:55:00 Test Item Value Reference Range Interpretation [...] MORPH (test code = RBCMOR) NORMAL CARDIAC [id number] 21:20:00 Test Item Value Reference Range Interpretation Comments TROPONIN I (test code = A84) <0.015 ng/mL 0.000-0.045 URINE [id number] 17:31:00 Test Item Value Reference Range Interpretation Comments PREG UR (test code = PGU) NEGATIVE NEGATIVE U/S [id number] 13:56:23EXAMINATION: U/S GALLBLADDER.LOCATION: D4.HISTORY: Right upper quadrant [...] 06/30/[address] ABDOMEN AND PELVIS WITH [id number] 12:09:32EXAMINATION: CT ABDOMEN AND PELVIS WITH CONTRAST.LOCATION: [...] consultation and colonoscopy.Bilateral nephrolithiasis.Atherosclerotic vascular calcifications.Arterial Blood [id number] 12:05:00 Test Item Value Reference Range Interpretation [...] FO2Hb (test code = 94.4 % 94.0-100.0 EH6IRQK) FCOHb (test code = 0.6 % 0.0-3.0 FCOHBRT) FMetHb (test code = 1.1 % 0.2-0.6 H FMETHBRT) ABGTEMP (test code = * Temp Corrected Values* ABGTEMP) ABGTEMP (test code = 37.0 ?C ABGTEMP.) pH (T) (test code = 7.498 7.350-7.450 H PHTEMP) pCO2 (T) (test code = 31.4 mmHg 35.0-45.0 L NIA7UVRB) pO2 (T) (test code = 81.7 mmHg 80.0-110.0 KR9PYMC) Device (test code = ROOM AIR DEVICE) [...] COMMENT (test code = CO) URINALYSIS WITH [id number] 11:20:00 Test Item Value Reference Range Interpretation [...] code = USPERM) /HPF NONE BRAIN NATRIURETIC [id number] 10:57:00 Test Item Value Reference Range Interpretation Comments proBNP (test code = PBNP) 436 pg/mL 0-125 H COMPREHENSIVE METABOLIC [id number] 10:56:00 Test Item Value Reference Range Interpretation [...] (test code = 31A) 19 IU/L <=78 [id number] 10:51:00 Test Item Value Reference Range Interpretation Comments CPK (test code = 32A) 129 IU/L 26-192 AMYLASE AND [id number] 10:51:00 Test Item Value Reference Range Interpretation Comments AMYLASE (test code = 10A) 23 U/L 28-100 L LIPASE (test code = 60A) 51 IU/L 73-393 L TROPONIN [id number] 10:50:00 Test Item Value Reference Range Interpretation Comments TROPONIN I (test code = A84) <0.015 ng/mL 0.000-0.045 PRO TIME AND [id number] 10:47:00 Test Item Value Reference Range Interpretation [...] or LMW Heparin. Order Code is ANTI-XA [id number] 10:47:00 Test Item Value Reference Range Interpretation Comments D-DIMER (test code = 209 ng/mL D-DU 0-234 DDI) D-DIMER COMMENT (test *Level to rule out code = DDCOM) DVT or PE: <235 ng/mL D-DU* DIRECT INFLUENZA A AND B [id number] 10:45:00 Test Item Value Reference Range Interpretation Comments Direct Exam (test PRESUMPTIVE NEGATIVE FOR code = DE1) THE PRESENCE OF INFLUENZA ANTIGEN XR CHEST 2 [id number] 10:41:59Exam: Chest x-ray 2 viewsHISTORY: Persistent coughLocation: [id number]:The heart size is normal and lung holcomb [...] RBC MORPH (test code = RBCMOR) NORMAL [id number] 14:47:00 Test Item Value Reference Range Interpretation [...] NEGATIVE NEGATIVE XR FOOT RIGHT COMPLETE 3 [id number] 14:27:27Right foot, 3 viewsLocation Code: Q3OTHKGRTS HISTORY: [id number]: PainCOMMENTS: AP, lateral, and oblique views of the right foot demonstrate noacute fracture or malalignment. Dorsal soft tissue swelling noted.IMPRESSION: No acute osseous radiographic abnormality. Dorsal soft tissueswelling.CT ABDOMEN AND PELVIS WITH [id number] 13:38:45CT abdomen and pelvis with contrastLocation Code: [id number] HISTORY: Abdominal painCOMPARISON: 02/10/2018Technique: Helical CT of [...] fluid collection or free air.CT HEAD W/O [id number] 13:19:29CT brain without contrast.Location code: C8XCPBUOFH HISTORY: R51: HEADACHE COMPARISON: None.TECHNIQUE: Routine unenhanced [...] aerated. IMPRESSION: No acute intracranial abnormality.AMYLASE AND [id number] 13:05:00 Test Item Value Reference Range Interpretation Comments AMYLASE (test code = 10A) 36 U/L 28-100 LIPASE (test code = 60A) 67 IU/L 73-393 L COMPREHENSIVE METABOLIC [id number] 13:05:00 Test Item Value Reference Range Interpretation [...] (test code = 31A) 14 IU/L <=78 [id number] 13:05:00 Test Item Value Reference Range Interpretation Comments MAGNESIUM (test code = 48A) 2.1 mg/dL 1.8-2.4 SERUM [id number] 12:53:00 Test Item Value Reference Range Interpretation Comments PREG SRM (test code = PGS) NEGATIVE NEGATIVE URINALYSIS WITH [id number] 12:45:00 Test Item Value Reference Range Interpretation [...] = USPERM) /HPF NONE PRO TIME AND [id number] 12:43:00 Test Item Value Reference Range Interpretation [...] MORPH (test code = RBCMOR) NORMAL BLOOD [id number] 07:45:00 Test Item Value Reference Range Interpretation Comments Culture Observations (test NO GROWTH AFTER 5 code = COB1) DAYS URINE [id number] 07:24:00 Test Item Value Reference Range Interpretation [...] RBC MORPH (test code = RBCMOR) NORMAL [id number] 06:25:00 Test Item Value Reference Range Interpretation Comments MAGNESIUM (test code = 48A) 1.5 mg/dL 1.8-2.4 L BASIC METABOLIC [id number] 06:16:00 Test Item Value Reference Range Interpretation [...] 8.3-9.5 L NM HIDA SCAN W/ EJECTION [id number] 18:10:25HIDA scanLocation code: S4Tnwfopuu history: Right upper quadrant painComments: Following the [...] minutes.Impression:1. No evidence of acute cholecystitis.BASIC METABOLIC [id number] 04:35:00 Test Item Value Reference Range Interpretation [...] MORPH (test code = RBCMOR) NORMAL LACTIC [id number] 17:33:00 Test Item Value Reference Range Interpretation Comments LACTIC ACD (test code = LA) 1.8 mmol/L 0.4-2.0 U/S [id number] 15:35:17LOCATION: L42ZEZMMOJ: 47-year-old female with nausea and vomiting.COMMENT:Sonographic imaging [...] appearance of the abdomen is unremarkable.BASIC METABOLIC [id number] 07:27:00 Test Item Value Reference Range Interpretation [...] (test code = RBCMOR) NORMAL URINALYSIS WITH [id number] 23:20:00 Test Item Value Reference Range Interpretation [...] USPERM) /HPF NONE XR CHEST 1 VIEW [id number] 16:08:04HISTORY: DyspneaLocation code: Z0Sxbgyppuqw 10 February 2018FINDINGS: Frontal view of the chest demonstrates normal cardiomediastinalsilhouette. The trachea is midline. Minimal bibasilar atelectasis. Thelungsare otherwise clear. There is no effusion or pneumothorax. The bones areintact.IMPRESSION: Minimal bibasilar atelectasis.CLOSTRIDIUM DIFFICILE [id number] 11:11:00 Test Item Value Reference Range Interpretation Comments Direct Exam (test NO CLOSTRIDIUM DIFFICILE code = DE1) TOXIN A/B DETECTED CBC WITH MANUAL [id number] 07:39:00 Test Item Value Reference Range Interpretation [...] lts code = PLTMOR) um) BASIC METABOLIC [id number] 06:01:00 Test Item Value Reference Range Interpretation [...] 09D) 8.8 mg/dL 8.3-9.5 CBC WITH MANUAL [id number] 07:18:00 Test Item Value Reference Range Interpretation [...] = 1+ NONE A MICRO) BASIC METABOLIC [id number] 05:48:00 Test Item Value Reference Range Interpretation [...] 09D) 8.8 mg/dL 8.3-9.5 MRI BRAIN W/O [id number] 18:15:41LOCATION: A1EXAM: MRI BRAIN W/O CONTRASTINDICATION: R51: [...] acute stroke. No acute abnormality.XR CENTRAL LINE [id number] 16:06:23EXAMINATION: NON- TUNNELED CENTRAL VENOUS CATHETER PLACEMENT.LOCATION: D4.HISTORY: The her central venous accessSEDATION: The patient did not require conscious sedation for the procedure.ANTIBIOTICS: None. Not indicated.TECHNIQUE: The risks, benefits, and alternatives were discussed and informedconsent was obtained. Prior to beginning the procedure, Gustavus Protocol wasused to confirm the patient's identity [...] at the bedside according to standard hospitalprotocol.U/S [id number] 16:06:23EXAMINATION: NON-TUNNELED CENTRAL VENOUS CATHETER PLACEMENT.LOCATION: D4.HISTORY: The her central venous accessSEDATION: The patient did not require conscious sedation for the procedure.ANTIBIOTICS: None. Not indicated.TECHNIQUE: The risks, benefits, and alternatives were discussed and informedconsent was obtained. Prior to beginning the procedure, Gustavus Protocol wasused to confirm the patient's identity [...] hospitalprotocol.CT ABDOMEN AND PELVIS WITH AND WITHOUT [id number] 15:59:28 Exam: CT abdomen and pelvis with and without contrast.Location: D4.History: [id number]: Abdominal [id number]: VomitingTechnique: Unenhanced and enhanced spiral slices were [...] enteritis.3. Nephrolithiasis.4. Small, fixed hiatalhernia.XR CHEST 1 [id number] 08:54:41Portable AP chest, 1 viewLocation Code: U7CPZMGGOE HISTORY: Chest painCOMPARISON: NoneCOMMENT: There is mild prominence of the central pulmonary vasculature and interstitium.Mild atelectasis is present within the lung bases. There is no lobarconsolidation or effusion. IMPRESSION: Mild central congestive changes and bibasilar atelectasis.XR ABDOMEN 1 VIEW [id number] 08:54:16Abdomen, 1 viewLocation Code: M8Xtyqgsdz history: Lower abdominal painComments: The bowel gas pattern is unremarkable. There is no visualizedabnormal calcification. The visualized osseous structures are intact.Impression: No acute radiographic abnormality. GLUCOMETER GLUCOSE- LAB USE [id number] 07:50:00 Test Item Value Reference Range Interpretation Comments GLUCOMETER (test code 157 mg/dL 70-100 H CLEANE D METERMeter ID: = GMG) [id number] tor: 9410 [address]ВЕТЛАНА MONTANO ES CBC WITH MANUAL [id number] 06:57:00 Test Item Value Reference Range Interpretation [...] code = 1+ NONE A MACRO) TROPONIN [id number] 05:58:00 Test Item Value Reference Range Interpretation Comments TROPONIN I (test code = A84) <0.015 ng/mL 0.000-0.045 COMPREHENSIVE METABOLIC [id number] 05:44:00 Test Item Value Reference Range Interpretation [...] 13 IU/L <=78 GLUCOMETER GLUCOSE- LAB USE [id number] 01:52:00 Test Item Value Reference Range Interpretation Comments GLUCOMETER (test code = 110 mg/dL 70-100 H Mete r ID: GMG) [id number] tor: 55[address] Y TROPONIN [id number] 00:02:00 Test Item Value Reference Range Interpretation Comments TROPONIN I (test code = A84) <0.015 ng/mL 0.000-0.045
[2021-08-20] MEDS ORDERED: MORPHINE 4 MG/ML SYR ONE ×2 (08:53→11:27)
[2021-08-20] MEDS ORDERED: NA CHLORIDE 0.9% 1,000 ML ONE (08:53)
[2021-08-20] MEDS ORDERED: ONDANSETRON 4 MG/2 ML VIAL ONE ×2 (08:53→10:47)
[2021-08-20 09:14] LABS: Urine Blood Trace-intact (Negative); Urine Glucose Negative (Negative); Urine Protein 2+ (Negative)
[2021-08-20 09:23] LABS: Absolute Lymphocytes (CBC) 0.8 K/uL (0.7-4.9); Hematocrit 37.4 % (36.0-45.0); Lymphocytes % 4.1 % (15.3-44.8); MPV 7.6 fL (7.6-11.3); RBC Red Blood Cell Count 3.99 M/uL (3.86-4.86)
[2021-08-20 09:28] LABS: Albumin 4.2 g/dL (3.4-5.0); Bilirubin Direct 0.1 mg/dL (0-0.2); Bilirubin Total 0.5 mg/dL (0.2-1.0)
[2021-08-20 09:29] LABS: Potassium 2.9 mmol/L (3.5-5.1)
--- NOTE | 2021-08-20 10:14 | RAD REPORT ---
EXAM DESCRIPTION: CT - Abdomen Pelvis W Contrast - 08/20/2021 10:02 am CLINICAL HISTORY: ABD PAIN COMPARISON: Abdomen Pelvis W Contrast dated 10/07/2019 TECHNIQUE: Biphasic, helical CT imaging of the abdomen and pelvis was performed following 100 ml non -ionic IV contrast. No oral contrast was administered. All CT scans are performed using dose optimization technique as appropriate and may include automated exposure control or mA/KV adjustment according to patient size. FINDINGS: No suspicious findings in the lung bases. No suspicious liver finding seen. Left lobe liver cyst measures 14 mm. This is increased from 9 mm in 2020. This still shows benign cyst characteristics. No portal vein abnormality. Pancreas and spleen show no suspicious findings. Gallbladder and biliary tree are also without suspicious finding. Symmetric renal function is seen with no hydronephrosis or suspicious renal mass. No pyelonephritis o r acute parenchymal process. Small 10 mm cyst seen anterior lower pole right kidney. Nonobstructing 4 mm calcifications seen lower pole right kidney. No adrenal abnormalities. No uterine abnormality. Ov ken are atrophic with no suspicious findings. Fluid is present filling but not distending the stomach. No gastric wall thickening, mass or edema. N o small bowel dilatation. Colon is mostly decompressed. The appendix is normal. A primary colon proce ss is not identifiable. No free air, free fluid or inflammatory stranding. No hernia, mass or bulky lymphadenopathy. No suspicious bony findings. Arterial tree calcifications are present. No acute vascular finding. IMPRESSION: Contrast enhanced CT abdomen and pelvis showing no acute or emergent finding. Fluid fills but does not distend the stomach. Collective findings could represent a nonspecific gastr oenteritis.
[2021-08-20] MEDS ORDERED: POTASSIUM CL SA 10 MEQ TAB PO ONE (10:40)
[2021-08-20] MEDS ORDERED: DICYCLOMINE HCL 10 MG CAP ONE (10:46)
--- NOTE | 2021-08-20 11:20 | EDPHYS ---
Physician Documentation [facility] Name: Margie Garcia Age: 51 yrs Sex: Female : 1970 Arrival Date: 08/20/2021 Time: 08:30 Bed 8 Private MD: ED Physician Clint Chaney HPI: 08/20 11:17 This 51 yrs old Female presents to ER via Wheelchair with complaints of Abdominal Pain, kb Weakness. 11:17 The patient presents with abdominal pain that is diffuse. Onset: The symptoms/episode kb began/occurred last night. The symptoms do not radiate. Associated signs and symptoms: Pertinent positives: nausea, vomiting, and diarrhea, Pertinent negatives: fever. The symptoms are described as constant. Modifying factors: The symptoms are alleviated by nothing, the symptoms are aggravated by nothing. Severity of pain: At its worst the pain was moderate in the emergency department the pain is unchanged. The patient has not experienced similar symptoms in the past. The patient has not recently seen a physician. Pt reports abd pain, n/v/d that started last night. 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 - Social history:: Smoking status: Patient reports the use of cigarette tobacco products, smokes one pack cigarettes per day. ROS: 11:18 Constitutional: Negative for fever, chills, and weight loss. kb 11:18 Abdomen/GI: Positive for abdominal pain, nausea, vomiting, and diarrhea. 11:18 All other systems are negative. Exam: 11:18 Constitutional: This is a well developed, well nourished patient who is awake, alert, kb and in no acute distress. Head/Face: Normocephalic, atraumatic. ENT: Moist Mucous membranes Cardiovascular: Regular rate and rhythm with a normal S1 and S2. No gallops, murmurs, or rubs. No pulse deficits. Respiratory: Respirations even and unlabored. No increased work of breathing. Talking in full sentences Skin: Warm, dry with normal turgor. Normal color. MS/ Extremity: Pulses equal, no cyanosis. Neurovascular intact. Full, normal range of motion. Neuro: Awake and alert, GCS 15, oriented to person, place, time, and situation. Moves all extremities. Normal gait. Psych: Awake, alert, with orientation to person, place and time. Behavior, mood, and affect are within normal limits. 11:18 Abdomen/GI: Inspection: abdomen appears normal, Bowel sounds: normal, in all quadrants, Palpation: moderate abdominal tenderness, in all quadrants. Vital Signs: 08:41 BP 189 / 109; Pulse 61; Resp 19; Temp 98.6(O); Pulse Ox 100% ; Height 5 ft. 5 in. ap3 (165.10 cm); 09:05 Pain 9/10; tw2 09:46 BP 190 / 124; Pulse 63; Resp 17; Pulse Ox 99% on R/A; tw2 10:21 BP 176 / 98; Pulse 72; Resp 17; Pulse Ox 99% on R/A; tw2 11:45 BP 179 / 87; Pulse 67; Resp 17; Pulse Ox 99% on R/A; tw2 MDM: 08:32 Patient medically screened. kb 11:17 Data reviewed: vital signs, nurses notes. Data interpreted: Pulse oximetry: on room air kb is 99 %. Interpretation: normal. Counseling: I had a detailed discussion with the patient and/or guardian regarding: the historical points, exam findings, and any diagnostic results supporting the discharge/admit diagnosis, lab results, radiology results, the need for outpatient follow up, a family practitioner, to return to the emergency department if symptoms worsen or persist or if there are any questions or concerns that arise at home. 08/20 08:35 Order name: Basic Metabolic Panel kb 08/20 08:35 Order name: CBC with Diff; Complete Time: 09:30 kb 08/20 08:35 Order name: Hepatic Function; Complete Time: 09:30 kb 08/20 08:35 Order name: Lipase; Complete Time: 09:30 kb 08/20 08:35 Order name: Basic Metabolic Panel; Complete Time: 09:30 EDMS 08/20 09:13 Order name: Urine Dipstick-Ancillary; Complete Time: 09:30 EDMS 08/20 08:35 Order name: CT Abd/Pelvis - IV Contrast Only; Complete Time: 10:25 kb 08/20 09:15 Order name: Urine --Ancillary (enter results); Complete Time: 09:30 bd 08/20 08:35 Order name: IV Saline Lock; Complete Time: 09:03 kb 08/20 08:35 Order name: Labs collected and sent; Complete Time: 09:03 kb 08/20 08:35 Order name: Urine Dipstick-Ancillary (obtain specimen); Complete Time: 09:13 kb 08/20 10:26 Order name: PO challenge; Complete Time: 11:26 kb Administered Medications: 09:03 Drug: Zofran (Ondansetron) 4 mg Route: IVP; Site: right forearm; tw2 11:47 Follow up: Response: No adverse reaction tw2 09:05 Drug: morphine 4 mg {Note: rass 0.} Route: IVP; Site: right forearm; tw2 11:27 Follow up: Response: No adverse reaction tw2 09:07 Drug: NS 0.9% 1000 ml Route: IV; Rate: 1000 ml; Site: right forearm; tw2 10:07 Follow up: Response: No adverse reaction; IV Status: Completed infusion; IV Intake: tw2 1000ml 10:40 Drug: Potassium Chloride 40 mEq Route: PO; tw2 11:27 Follow up: Response: No adverse reaction tw2 10:47 Drug: Zofran (Ondansetron) 4 mg Route: IVP; Site: right forearm; tw2 11:47 Follow up: Response: No adverse reaction tw2 10:55 Drug: Bentyl (dicyclomine) 20 mg Route: PO; tw2 11:27 Follow up: Response: No adverse reaction tw2 11:25 Drug: morphine 4 mg {Note: RASS 0.} Route: IVP; Site: right forearm; tw2 11:46 Follow up: Response: No adverse reaction; Pain is decreased; RASS: Alert and Calm (0) tw2 Disposition Summary: 08/20/21 11:19 Discharge Ordered Location: Home kb Condition: Stable kb Diagnosis - Noninfective gastroenteritis and colitis, unspecified kb Followup: kb - With: Emergency Department - When: As needed - Reason: Worsening of condition Followup: kb - With: Private Physician - When: 2 - 3 days - Reason: Recheck today's complaints, Continuance of care, Re-evaluation by your physician Discharge Instructions: - Food Choices to Help Relieve Diarrhea, Adult kb - Viral Gastroenteritis, Adult kb - Discharge Summary Sheet tw2 Forms: - Medication Reconciliation Form kb - Work release form tw2 - Thank You Letter kb - Antibiotic Education kb - Prescription Opioid Use kb Prescriptions: - Zofran 4 mg Oral Tablet - take 1 tablet by ORAL route every 6 hours As needed; 20 tablet; Refills: 0, kb Product Selection Permitted - dicyclomine 20 mg Oral Tablet - take 1 tablet by ORAL route 4 times per day As needed; 20 tablet; Refills: 0, kb Product Selection Permitted Signatures: Dispatcher [employer] Blank Helm, MANAGER EDUCATIONAL-C MANAGER EDUCATIONAL-Annie Taylor, RN RN tw2 Cynthia Harris RN RN ap3
--- NOTE | 2021-08-20 11:20 | ER ---
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 Patient presents to the ER with a near syncopal prior to triage, and is actively vomiting. Coronavirus screen: At this time, the client does not indicate any symptoms associated with coronavirus-19. Ebola Screen: No symptoms or risks identified at this time. Initial Sepsis Screen: Does the patient meet any 2 criteria? No. Patient's initial sepsis screen is negative. Does the patient have a suspected source of infection? No. Patient's initial sepsis screen is negative. Risk Assessment: Do you want to hurt yourself or someone else? Patient reports no desire to harm self or others. Onset of symptoms was August 19, 2021. 08:41 Method Of Arrival: Wheelchair ap3 08:41 Acuity: BHARAT 3 ap3 Triage Assessment: 08:44 General: Appears distressed, Behavior is fussy, restless, Reports feeling ill for ap3 fatigue for. Pain: Complains of pain in abdomen Pain currently is 8 out of 10 on a pain scale. Pain began gradually, 1 day ago. Neuro: Level of Consciousness is awake, obeys commands, Oriented to person, place, time, situation, Weakness in bilateral leg(s) Gait is unsteady, Speech is normal. Cardiovascular: Patient's skin is warm and dry. Respiratory: Airway is patent Respiratory effort is even, unlabored. GI: Pt is actively vomiting clear fluid, Abdomen is tender to palpation X 4 quads. Reports lower abdominal pain, upper abdominal pain, diarrhea, nausea, vomiting. 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 - Social history:: Smoking status: Patient reports the use of cigarette tobacco products, smokes one pack cigarettes per day. Screenin:45 Abuse screen: Denies threats or abuse. Nutritional screening: No deficits noted. ap3 Tuberculosis screening: No symptoms or risk factors identified. Fall Risk No fall in past 12 months (0 pts). No secondary diagnosis (0 pts). IV access (20 points). Ambulatory Aid- None/Bed Rest/Nurse Assist (0 pts). Gait- Weak (10 pts.). Mental Status- Oriented to own ability (0 pts). Total Prince Fall Scale indicates Low Risk Score (25-44 pts). Fall prevention measures have been instituted. Side Rails Up X 2 Placed close to Nursing Station Frequent Obs/Assesments occuring Family Present and informed to notify staff if they need to leave bedside As available Patient and Family Educated on Fall Prevention Program and strategies. Assessment: 09:05 General: Appears uncomfortable, Behavior is cooperative, anxious, fussy. Pain: tw2 Complains of pain in abdomen. Neuro: Level of Consciousness is awake, alert, obeys commands, Oriented to person, place, time, situation. Cardiovascular: Patient's skin is warm and dry. Respiratory: Airway is patent Respiratory effort is even, unlabored, Respiratory pattern is regular, symmetrical. GI: Bowel sounds present X 4 quads. Reports lower abdominal pain, upper abdominal pain. Musculoskeletal: Range of motion: intact in all extremities. 10:21 Reassessment: Patient appears in no apparent distress at this time. Patient and/or tw2 family updated on plan of care and expected duration. Pain level reassessed. Patient is alert, oriented x 3, equal unlabored respirations, skin warm/dry/pink. pt back from imaging at this time. 10:41 Reassessment: pt states "is there anyway i can get something for the pain, it is tw2 hurting really bad", provider notified. 11:45 Reassessment: Patient appears in no apparent distress at this time. Patient and/or tw2 family updated on plan of care and expected duration. Pain level reassessed. Patient is alert, oriented x 3, equal unlabored respirations, skin warm/dry/pink. Patient states feeling better. Vital Signs: 08:41 BP 189 / 109; Pulse 61; Resp 19; Temp 98.6(O); Pulse Ox 100% ; Height 5 ft. 5 in. ap3 (165.10 cm); 09:05 Pain 9/10; tw2 09:46 BP 190 / 124; Pulse 63; Resp 17; Pulse Ox 99% on R/A; tw2 10:21 BP 176 / 98; Pulse 72; Resp 17; Pulse Ox 99% on R/A; tw2 11:45 BP 179 / 87; Pulse 67; Resp 17; Pulse Ox 99% on R/A; tw2 ED Course: 08:30 Patient arrived in ED. am2 08:32 Blank Harding FNP-C is PHCP. kb 08:32 Clint Chaney MD is Attending Physician. kb 08:43 Triage completed. ap3 08:44 Annie Fiore RN is Primary Nurse. tw2 08:46 Arm band placed on right wrist. ap3 08:46 Patient has correct armband on for positive identification. Bed in low position. Call ap3 light in reach. Side rails up X2. Adult w/ patient. monitor technician on. Pulse ox on. NIBP on. 09:03 Initial lab(s) drawn, by me, sent to lab. Inserted saline lock: 20 gauge in right em1 forearm, using aseptic technique. Blood collected. 10:01 CT Abd/Pelvis - IV Contrast Only In Process Unspecified. EDMS 11:46 No provider procedures requiring assistance completed. IV discontinued, intact, tw2 bleeding controlled, No redness/swelling at site. Pressure dressing applied. Administered Medications: 09:03 Drug: Zofran (Ondansetron) 4 mg Route: IVP; Site: right forearm; tw2 11:47 Follow up: Response: No adverse reaction tw2 09:05 Drug: morphine 4 mg {Note: rass 0.} Route: IVP; Site: right forearm; tw2 11:27 Follow up: Response: No adverse reaction tw2 09:07 Drug: NS 0.9% 1000 ml Route: IV; Rate: 1000 ml; Site: right forearm; tw2 10:07 Follow up: Response: No adverse reaction; IV Status: Completed infusion; IV Intake: tw2 1000ml 10:40 Drug: Potassium Chloride 40 mEq Route: PO; tw2 11:27 Follow up: Response: No adverse reaction tw2 10:47 Drug: Zofran (Ondansetron) 4 mg Route: IVP; Site: right forearm; tw2 11:47 Follow up: Response: No adverse reaction tw2 10:55 Drug: Bentyl (dicyclomine) 20 mg Route: PO; tw2 11:27 Follow up: Response: No adverse reaction tw2 11:25 Drug: morphine 4 mg {Note: RASS 0.} Route: IVP; Site: right forearm; tw2 11:46 Follow up: Response: No adverse reaction; Pain is decreased; RASS: Alert and Calm (0) tw2 Intake: 10:07 IV: 1000ml; Total: 1000ml. tw2 Outcome: 11:19 Discharge ordered by . kb 11:46 Discharged to home via wheelchair, with significant other. tw2 11:46 Condition: stable 11:46 Discharge instructions given to patient, significant other, Instructed on discharge instructions, follow up and referral plans. no drinking with medication, no driving heavy equipment, medication usage, Demonstrated understanding of instructions, follow-up care, medications, Prescriptions given X 2. 11:48 Patient left the ED. tw2 Signatures: Dispatcher [employer] EDMS Blank Harding, LINING SETTER-C LYNDA-Wolf Covarrubias em1 Annie Fiore RN RN tw2 Cynthia Kohc am2 Cynthia Harris RN RN ap3
[2021-08-20 12:02] VITALS: O2SAT 99
[2021-08-20 12:04] VITALS: BP 179/87
[2021-08-20 12:09] VITALS: TEMP 98.6
== END 2021-08-20 11:48 | disposition home or self-care (01) ==
LOC: ER 08:30
DX: K52.9 Noninfective gastroenteritis and colitis, unspecified (principal); I10 Essential (primary) hypertension; F17.210 Nicotine dependence, cigarettes, uncomplicated; Z88.8 Allergy status to other drugs, medicaments and biological substances
CPT/HCPCS: 96361; 85025; 80048; 36415; 81025; 80076; 81003; 83690; 74177; 96375; 96374; 99284; Q9967; J7030; J2405 ×2

== ENCOUNTER 2021-08-21 14:21 | Emergency (ER) | payer OTHER, SELFPAY ==
--- OUTSIDE RECORDS SUMMARY | 2021-08-21 14:26 | XMS REPORT | Continuity of Care Document ---
:1970 Author Organization [facility] t Address [address] [place] [address] Care Team Providers Name Role Phone DR [...] Facility Department ID 2019-01-21 2019-01-[id number] [place] 17:[facility] [place] [facility] 2018-07-[id number] [place] 15:24:00 14:47:00 [facility] [place] 2018-06-30 2018-07-01 [facility] [id number] [place] 16:03:00 17:15:00 [facility] [place] 2018-05-17 2018-05-17 [facility] [id number] [place] 13:38:00 15:27:00 [facility] [place] 2018-03-09 2018-03-09 [facility] [id number] [place] 10:29[facility]00 [facility] [place] Results Test Description Test Time Test Comments [...] 09D) 8.3 mg/dL 8.3-9.5 CBC (INCLUDES AUTOMATED DIFFERENTIAL)*[id number] 05:53:00 Test Item Value Reference Range Interpretation [...] 48A) 2.0 mg/dL 1.8-2.4 CBC (INCLUDES AUTOMATED DIFFERENTIAL)*[id number] 05:59:00 Test Item Value Reference Range Interpretation [...] A84) <0.015 ng/mL 0.000-0.045 CBC (INCLUDES AUTOMATED DIFFERENTIAL)*[id number] 06:06:00 Test Item Value Reference Range Interpretation [...] 09D) 8.7 mg/dL 8.3-9.5 CBC (INCLUDES AUTOMATED DIFFERENTIAL)*[id number] 06:00:00 Test Item Value Reference Range Interpretation [...] (test code = NORMAL WRBCMOR) URINALYSIS WITH [id number] 21:55:00 Test Item Value Reference Range Interpretation [...] code = USPERM) /HPF NONE DRUGS OF [id number] 21:55:00 Test Item Value Reference Range Interpretation [...] 2000 ng/mL CT ABDOMEN AND PELVIS WITH [id number] 21:03:20Exam: CT abdomen and pelvis with contrast.Location: [...] CONTRAST 2019-01-20 21:02:21Chest CT with contrast.Location Code: [id number] HISTORY: chest pain, vomitingCOMPARISON: NoneTechnique: Helical CT [...] patientsize, and/or utilization of iterative reconstruction technique.OCCULT [id number] 20:16:00 Test Item Value Reference Range Interpretation Comments Direct Exam (test code POSITIVE FOR OCCULT = DE1) BLOOD [id number] 20:03:00 Test Item Value Reference Range Interpretation Comments D-DIMER (test code = <200 ng/mL D-DU 0-234 DDI) D-DIMER COMMENT (test *Level to rule out code = DDCOM) DVT or PE: <235 ng/mL D-DU* PRO TIME AND [id number] 20:03:00 Test Item Value Reference Range Interpretation [...] or LMW Heparin. Order Code is ANTI-XA [id number] 20:02:00 Test Item Value Reference Range Interpretation Comments CPK (test code = 32A) 140 IU/L 26-192 COMPREHENSIVE METABOLIC [id number] 20:02:00 Test Item Value Reference Range Interpretation [...] code = 31A) 18 IU/L <=78 TROPONIN [id number] 19:55:00 Test Item Value Reference Range Interpretation Comments TROPONIN I (test code = A84) <0.015 ng/mL 0.000-0.045 XR CHEST 1 VIEW [id number] 19:40:49Exam: Chest portable erectLocation: H 12History: chest [...] code = MDIFF) NO NO COMPREHENSIVE METABOLIC [id number] 04:10:00 Test Item Value Reference Range Interpretation [...] (test code = RBCMOR) NORMAL BASIC METABOLIC [id number] 05:47:00 Test Item Value Reference Range Interpretation [...] code = 09D) 8.3 mg/dL 8.3-9.5 CARDIAC [id number] 02:45:00 Test Item Value Reference Range Interpretation Comments TROPONIN I (test code = A84) 0.059 ng/mL 0.000-0.045 H CARDIAC [id number] 18:36:00 Test Item Value Reference Range Interpretation Comments TROPONIN I (test code = A84) 0.059 ng/mL 0.000-0.[address] ABDOMEN AND PELVIS WITH [id number] 15:14:52EXAM: CT abdomen and pelvis with contrastLocation: [...] iterative reconstruction technique.DLP: 1534 mGy-cm CTDI 28 [id number] 13:05:00 Test Item Value Reference Range Interpretation Comments MAGNESIUM (test code = 48A) 1.9 mg/dL 1.8-2.4 CT HEAD W/O [id number] 12:54:16EXAM: CT head without contrastLocation: [id number]: NoneINDICATION: HeadacheTECHNIQUE: Axial images of the brain [...] technique.DLP: 854 mGy-cm CTDI 45 mGyDRUGS OF [id number] 12:54:00 Test Item Value Reference Range Interpretation [...] 200 ng/mL Opiates 2000 ng/mL URINALYSIS WITH [id number] 12:46:00 Test Item Value Reference Range Interpretation [...] (test code = USPERM) /HPF NONE URINE [id number] 12:39:00 Test Item Value Reference Range Interpretation Comments PREG UR (test code = PGU) NEGATIVE NEGATIVE COMPREHENSIVE METABOLIC [id number] 12:37:00 Test Item Value Reference Range Interpretation [...] = 31A) 17 IU/L <=78 AMYLASE AND [id number] 12:34:00 Test Item Value Reference Range Interpretation Comments AMYLASE (test code = 10A) 53 U/L 28-100 LIPASE (test code = 60A) 45 IU/L 73-393 L TROPONIN [id number] 12:33:00 Test Item Value Reference Range Interpretation Comments TROPONIN I (test code = A84) 0.087 ng/mL 0.000-0.045 H [id number] 12:26:00 Test Item Value Reference Range Interpretation [...] code = RBCMOR) NORMAL DIRECT STREP GROUP [id number] 07:45:00 Test Item Value Reference Range Interpretation Comments Culture Observations NO BETA HEMOLYTIC (test code = COB1) STREPTOCOCCUS ISOLATED Direct Exam (test code NO STREPTOCOCCUS GROUP = DE1) A ANTIGEN DETECTED THYROID PANEL/SCREEN (TSH)2018-07-01 05:50:00 Test Item Value Reference Range Interpretation Comments TSH (test code = A57) 0.453 uIU/mL 0.358-3.740 CARDIAC [id number] 05:16:00 Test Item Value Reference Range Interpretation Comments TROPONIN I (test code = A84) <0.015 ng/mL 0.000-0.045 BASIC METABOLIC [id number] 04:55:00 Test Item Value Reference Range Interpretation [...] MORPH (test code = RBCMOR) NORMAL CARDIAC [id number] 21:20:00 Test Item Value Reference Range Interpretation Comments TROPONIN I (test code = A84) <0.015 ng/mL 0.000-0.045 URINE [id number] 17:31:00 Test Item Value Reference Range Interpretation Comments PREG UR (test code = PGU) NEGATIVE NEGATIVE U/S [id number] 13:56:23EXAMINATION: U/S GALLBLADDER.LOCATION: D4.HISTORY: Right upper quadrant [...] 06/30/[address] ABDOMEN AND PELVIS WITH [id number] 12:09:32EXAMINATION: CT ABDOMEN AND PELVIS WITH CONTRAST.LOCATION: [...] consultation and colonoscopy.Bilateral nephrolithiasis.Atherosclerotic vascular calcifications.Arterial Blood [id number] 12:05:00 Test Item Value Reference Range Interpretation [...] FO2Hb (test code = 94.4 % 94.0-100.0 WH6WHYE) FCOHb (test code = 0.6 % 0.0-3.0 FCOHBRT) FMetHb (test code = 1.1 % 0.2-0.6 H FMETHBRT) ABGTEMP (test code = * Temp Corrected Values* ABGTEMP) ABGTEMP (test code = 37.0 ?C ABGTEMP.) pH (T) (test code = 7.498 7.350-7.450 H PHTEMP) pCO2 (T) (test code = 31.4 mmHg 35.0-45.0 L CXZ1KAHB) pO2 (T) (test code = 81.7 mmHg 80.0-110.0 BP4CVKK) Device (test code = ROOM AIR DEVICE) [...] COMMENT (test code = CO) URINALYSIS WITH [id number] 11:20:00 Test Item Value Reference Range Interpretation [...] code = USPERM) /HPF NONE BRAIN NATRIURETIC [id number] 10:57:00 Test Item Value Reference Range Interpretation Comments proBNP (test code = PBNP) 436 pg/mL 0-125 H COMPREHENSIVE METABOLIC [id number] 10:56:00 Test Item Value Reference Range Interpretation [...] (test code = 31A) 19 IU/L <=78 [id number] 10:51:00 Test Item Value Reference Range Interpretation Comments CPK (test code = 32A) 129 IU/L 26-192 AMYLASE AND [id number] 10:51:00 Test Item Value Reference Range Interpretation Comments AMYLASE (test code = 10A) 23 U/L 28-100 L LIPASE (test code = 60A) 51 IU/L 73-393 L TROPONIN [id number] 10:50:00 Test Item Value Reference Range Interpretation Comments TROPONIN I (test code = A84) <0.015 ng/mL 0.000-0.045 PRO TIME AND [id number] 10:47:00 Test Item Value Reference Range Interpretation [...] or LMW Heparin. Order Code is ANTI-XA [id number] 10:47:00 Test Item Value Reference Range Interpretation Comments D-DIMER (test code = 209 ng/mL D-DU 0-234 DDI) D-DIMER COMMENT (test *Level to rule out code = DDCOM) DVT or PE: <235 ng/mL D-DU* DIRECT INFLUENZA A AND B [id number] 10:45:00 Test Item Value Reference Range Interpretation Comments Direct Exam (test PRESUMPTIVE NEGATIVE FOR code = DE1) THE PRESENCE OF INFLUENZA ANTIGEN XR CHEST 2 [id number] 10:41:59Exam: Chest x-ray 2 viewsHISTORY: Persistent coughLocation: [id number]:The heart size is normal and lung holcomb [...] RBC MORPH (test code = RBCMOR) NORMAL [id number] 14:47:00 Test Item Value Reference Range Interpretation [...] NEGATIVE NEGATIVE XR FOOT RIGHT COMPLETE 3 [id number] 14:27:27Right foot, 3 viewsLocation Code: [id number] HISTORY: [id number]: PainCOMMENTS: AP, lateral, and oblique views of the right foot demonstrate noacute fracture or malalignment. Dorsal soft tissue swelling noted.IMPRESSION: No acute osseous radiographic abnormality. Dorsal soft tissueswelling.CT ABDOMEN AND PELVIS WITH [id number] 13:38:45CT abdomen and pelvis with contrastLocation Code: [id number] HISTORY: Abdominal painCOMPARISON: 02/10/2018Technique: Helical CT of [...] fluid collection or free air.CT HEAD W/O [id number] 13:19:29CT brain without contrast.Location code: [id number] HISTORY: R51: HEADACHE COMPARISON: None.TECHNIQUE: Routine unenhanced [...] aerated. IMPRESSION: No acute intracranial abnormality.AMYLASE AND [id number] 13:05:00 Test Item Value Reference Range Interpretation Comments AMYLASE (test code = 10A) 36 U/L 28-100 LIPASE (test code = 60A) 67 IU/L 73-393 L COMPREHENSIVE METABOLIC [id number] 13:05:00 Test Item Value Reference Range Interpretation [...] (test code = 31A) 14 IU/L <=78 [id number] 13:05:00 Test Item Value Reference Range Interpretation Comments MAGNESIUM (test code = 48A) 2.1 mg/dL 1.8-2.4 SERUM [id number] 12:53:00 Test Item Value Reference Range Interpretation Comments PREG SRM (test code = PGS) NEGATIVE NEGATIVE URINALYSIS WITH [id number] 12:45:00 Test Item Value Reference Range Interpretation [...] = USPERM) /HPF NONE PRO TIME AND [id number] 12:43:00 Test Item Value Reference Range Interpretation [...] MORPH (test code = RBCMOR) NORMAL BLOOD [id number] 07:45:00 Test Item Value Reference Range Interpretation Comments Culture Observations (test NO GROWTH AFTER 5 code = COB1) DAYS URINE [id number] 07:24:00 Test Item Value Reference Range Interpretation [...] RBC MORPH (test code = RBCMOR) NORMAL [id number] 06:25:00 Test Item Value Reference Range Interpretation Comments MAGNESIUM (test code = 48A) 1.5 mg/dL 1.8-2.4 L BASIC METABOLIC [id number] 06:16:00 Test Item Value Reference Range Interpretation [...] 8.3-9.5 L NM HIDA SCAN W/ EJECTION [id number] 18:10:25HIDA scanLocation code: G7Tyedxpeq history: Right upper quadrant painComments: Following the [...] minutes.Impression:1. No evidence of acute cholecystitis.BASIC METABOLIC [id number] 04:35:00 Test Item Value Reference Range Interpretation [...] MORPH (test code = RBCMOR) NORMAL LACTIC [id number] 17:33:00 Test Item Value Reference Range Interpretation Comments LACTIC ACD (test code = LA) 1.8 mmol/L 0.4-2.0 U/S [id number] 15:35:17LOCATION: U14ICGHYFT: 47-year-old female with nausea and vomiting.COMMENT:Sonographic imaging [...] appearance of the abdomen is unremarkable.BASIC METABOLIC [id number] 07:27:00 Test Item Value Reference Range Interpretation [...] (test code = RBCMOR) NORMAL URINALYSIS WITH [id number] 23:20:00 Test Item Value Reference Range Interpretation [...] USPERM) /HPF NONE XR CHEST 1 VIEW [id number] 16:08:04HISTORY: DyspneaLocation code: O2Tzcowurtfe 10 February 2018FINDINGS: Frontal view of the chest demonstrates normal cardiomediastinalsilhouette. The trachea is midline. Minimal bibasilar atelectasis. Thelungsare otherwise clear. There is no effusion or pneumothorax. The bones areintact.IMPRESSION: Minimal bibasilar atelectasis.CLOSTRIDIUM DIFFICILE [id number] 11:11:00 Test Item Value Reference Range Interpretation Comments Direct Exam (test NO CLOSTRIDIUM DIFFICILE code = DE1) TOXIN A/B DETECTED CBC WITH MANUAL [id number] 07:39:00 Test Item Value Reference Range Interpretation [...] lts code = PLTMOR) um) BASIC METABOLIC [id number] 06:01:00 Test Item Value Reference Range Interpretation [...] 09D) 8.8 mg/dL 8.3-9.5 CBC WITH MANUAL [id number] 07:18:00 Test Item Value Reference Range Interpretation [...] = 1+ NONE A MICRO) BASIC METABOLIC [id number] 05:48:00 Test Item Value Reference Range Interpretation [...] 09D) 8.8 mg/dL 8.3-9.5 MRI BRAIN W/O [id number] 18:15:41LOCATION: A1EXAM: MRI BRAIN W/O CONTRASTINDICATION: R51: [...] acute stroke. No acute abnormality.XR CENTRAL LINE [id number] 16:06:23EXAMINATION: NON- TUNNELED CENTRAL VENOUS CATHETER PLACEMENT.LOCATION: D4.HISTORY: The her central venous accessSEDATION: The patient did not require conscious sedation for the procedure.ANTIBIOTICS: None. Not indicated.TECHNIQUE: The risks, benefits, and alternatives were discussed and informedconsent was obtained. Prior to beginning the procedure, [facility] Protocol wasused to confirm the patient's identity [...] at the bedside according to standard hospitalprotocol.U/S [id number] 16:06:23EXAMINATION: NON-TUNNELED CENTRAL VENOUS CATHETER PLACEMENT.LOCATION: D4.HISTORY: The her central venous accessSEDATION: The patient did not require conscious sedation for the procedure.ANTIBIOTICS: None. Not indicated.TECHNIQUE: The risks, benefits, and alternatives were discussed and informedconsent was obtained. Prior to beginning the procedure, [facility] Protocol wasused to confirm the patient's identity [...] hospitalprotocol.CT ABDOMEN AND PELVIS WITH AND WITHOUT [id number] 15:59:28 Exam: CT abdomen and pelvis with and without contrast.Location: D4.History: [id number]: Abdominal [id number]: VomitingTechnique: Unenhanced and enhanced spiral slices were [...] enteritis.3. Nephrolithiasis.4. Small, fixed hiatalhernia.XR CHEST 1 [id number] 08:54:41Portable AP chest, 1 viewLocation Code: M7WHKCERZR HISTORY: Chest painCOMPARISON: NoneCOMMENT: There is mild prominence of the central pulmonary vasculature and interstitium.Mild atelectasis is present within the lung bases. There is no lobarconsolidation or effusion. IMPRESSION: Mild central congestive changes and bibasilar atelectasis.XR ABDOMEN 1 VIEW [id number] 08:54:16Abdomen, 1 viewLocation Code: U5Wbliaaho history: Lower abdominal painComments: The bowel gas pattern is unremarkable. There is no visualizedabnormal calcification. The visualized osseous structures are intact.Impression: No acute radiographic abnormality. GLUCOMETER GLUCOSE- LAB USE [id number] 07:50:00 Test Item Value Reference Range Interpretation Comments GLUCOMETER (test code 157 mg/dL 70-100 H CLEANE D METERMeter ID: = GMG) [id number] tor: 9410 СВЕТЛАНА MONTANO ES CBC WITH MANUAL [id number] 06:57:00 Test Item Value Reference Range Interpretation [...] code = 1+ NONE A MACRO) TROPONIN [id number] 05:58:00 Test Item Value Reference Range Interpretation Comments TROPONIN I (test code = A84) <0.015 ng/mL 0.000-0.045 COMPREHENSIVE METABOLIC [id number] 05:44:00 Test Item Value Reference Range Interpretation [...] 13 IU/L <=78 GLUCOMETER GLUCOSE- LAB USE [id number] 01:52:00 Test Item Value Reference Range Interpretation Comments GLUCOMETER (test code = 110 mg/dL 70-100 H Mete r ID: GMG) [id number] tor: 5512 GAIL DARO Y TROPONIN [id number] 00:02:00 Test Item Value Reference Range Interpretation Comments TROPONIN I (test code = A84) <0.015 ng/mL 0.000-0.045
[2021-08-21 15:50] LABS: Absolute Lymphocytes (CBC) 2.3 K/uL (0.7-4.9); Hematocrit 38.5 % (36.0-45.0); Lymphocytes % 15.1 % (15.3-44.8); MPV 7.5 fL (7.6-11.3); RBC Red Blood Cell Count 4.19 M/uL (3.86-4.86)
[2021-08-21] MEDS ORDERED: NA CHLORIDE 0.9% 1,000 ML ONE (15:53)
[2021-08-21] MEDS ORDERED: MORPHINE 4 MG/ML SYR ONE (15:53)
[2021-08-21] MEDS ORDERED: ONDANSETRON 4 MG/2 ML VIAL ONE ×2 (15:53→16:50)
[2021-08-21 16:22] LABS: Albumin 4.4 g/dL (3.4-5.0); Bilirubin Direct 0.1 mg/dL (0-0.2); Bilirubin Total 0.5 mg/dL (0.2-1.0); Protein, Total 8.6 g/dL (6.4-8.2)
[2021-08-21 16:23] LABS: Potassium 2.9 mmol/L (3.5-5.1)
[2021-08-21] MEDS ORDERED: PANTOPRAZOLE 40 MG INJ ONE (16:50)
[2021-08-21] MEDS ORDERED: HYDROMORPHONE HCL 2 MG/ML inj ONE (16:50)
[2021-08-21] MEDS ORDERED: NA CHLORIDE 0.9% 100 ML IV ONE (16:51)
[2021-08-21] MEDS ORDERED: KCL 20 MEQ/100 mL IVPB 100 ML IV ONE (16:51)
[2021-08-21] MEDS ORDERED: PROMETHAZINE INJ 25 MG/ML AMP ONE (17:15)
--- NOTE | 2021-08-21 19:07 | EDPHYS ---
Physician Documentation [facility] Name: Margie Garcia Age: 51 yrs Sex: Female : 1970 Arrival Date: 08/21/2021 Time: 14:22 Bed 20 Private MD: ED Physician Bobo Hidalgo HPI: 08/21 16:03 This 51 yrs old Female presents to ER via Ambulatory with complaints of Vomiting. kdr 16:06 This 51 yrs old Female presents to ER via Ambulatory with complaints of Vomiting. kdr 16:03 The patient presents to the emergency department with nausea, that is mild, vomiting, kdr abdominal pain, of the abdomen diffusely. Onset: The symptoms/episode began/occurred gradually, 3 day(s) ago. Possible causes:. 16:06 The patient presents to the emergency department with nausea, vomiting, that is kdr continuous, described as clear fluid, The patient has been vomiting for 3 days and was seen here yesterday. She was given several rounds of medication and improved and was discharged home in stable condition. She states that she vomited blood twice this morning but since that has not been vomiting any blood she also complains of diffuse tender abdominal pain. Onset: The symptoms/episode began/occurred gradually, 3 day(s) ago. Possible causes: unknown, The patient attributes the vomiting to her. The symptoms are aggravated by movement, pressure, food , The symptoms are alleviated by nothing. Associated signs and symptoms: Pertinent positives: abdominal pain, nausea, vomiting, Pertinent negatives: anorexia, constipation, diarrhea, dysuria, fever, flatulence, GI bleeding, hematuria. Severity of symptoms: At their worst the symptoms were moderate severe incapacitating just prior to arrival, in the emergency department the symptoms are unchanged. The patient has experienced similar episodes in the past, multiple times. The patient has been recently seen at the [facility] Emergency Department, yesterday. Patient states that she is not experiencing any anything more severe than on prior episodes. She claims this often happens around her migraine headaches. She is not having the worst headache of her life. 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 - Social history:: Smoking status: . ROS: 16:06 Constitutional: Negative for fever, chills, and weight loss, Eyes: Negative for injury, kdr pain, redness, and discharge, Neck: Negative for injury, pain, and swelling, Cardiovascular: Negative for chest pain, palpitations, and edema, Respiratory: Negative for shortness of breath, cough, wheezing, and pleuritic chest pain, Abdomen/GI: Negative for abdominal pain, nausea, vomiting, diarrhea, and constipation. Exam: 19:11 Constitutional: This is a well developed, well nourished patient who is awake, alert, kdr and in moderate distress. Head/Face: Normocephalic, atraumatic. Eyes: Pupils equal round and reactive to light, extra-ocular motions intact. Lids and lashes normal. Conjunctiva and sclera are non-icteric and not injected. Cornea within normal limits. Periorbital areas with no swelling, redness, or edema. Neck: Trachea midline, no thyromegaly or masses palpated, and no cervical lymphadenopathy. Supple, full range of motion without nuchal rigidity, or vertebral point tenderness. No Meningismus. Chest/axilla: Normal chest wall appearance and motion. Nontender with no deformity. No lesions are appreciated. Cardiovascular: Regular rate and rhythm with a normal S1 and S2. No gallops, murmurs, or rubs. Normal PMI, no JVD. No pulse deficits. Respiratory: Lungs have equal breath sounds bilaterally, clear to auscultation and percussion. No rales, rhonchi or wheezes noted. No increased work of breathing, no retractions or nasal flaring. Abdomen/GI: Soft, moderate tenderness with diminished bowel sounds. No distension or tympany. No guarding or rebound. No evidence of tenderness throughout. Back: No spinal tenderness. No costovertebral tenderness. Full range of motion. Skin: Warm, dry with normal turgor. Normal color with no rashes, no lesions, and no evidence of cellulitis. MS/ Extremity: Pulses equal, no cyanosis. Neurovascular intact. Full, normal range of motion. Neuro: Awake and alert, GCS 15, oriented to person, place, time, and situation. Cranial nerves II-XII grossly intact. Motor strength 5/5 in all extremities. Sensory grossly intact. Cerebellar exam normal. Normal gait. Psych: Awake, alert, with orientation to person, place and time. Behavior, mood, and affect are within normal limits. Vital Signs: 14:27 BP 138 / 104; Pulse 89; Resp 17; Temp 98.4(TE); Pulse Ox 99% on R/A; Weight 58.97 kg tw2 (R); Height 5 ft. 5 in. (165.10 cm); Pain 8/10; 16:00 BP 219 / 120; Pulse 76; Resp 18; Pulse Ox 98% ; Pain 10/10; jh6 17:00 BP 179 / 111; Pulse 79; Resp 18; Pulse Ox 100% ; Pain 9/10; jh6 17:00 BP 173 / 126; Pulse 86; Resp 17; Pulse Ox 100% ; Pain 5/10; jh6 19:22 BP 153 / 108; Pulse 86; Resp 16; Pulse Ox 100% on R/A; ll3 14:27 Body Mass Index 21.63 (58.97 kg, 165.10 cm) tw2 MDM: 19:06 Patient medically screened. kdr 19:12 Data reviewed: vital signs, nurses notes, lab test result(s), radiologic studies. kdr Counseling: I had a detailed discussion with the patient and/or guardian regarding: the historical points, exam findings, and any diagnostic results supporting the discharge/admit diagnosis, lab results, radiology results, the need for outpatient follow up. 08/21 14:39 Order name: Basic Metabolic Panel; Complete Time: 16: kdr 08/21 14:39 Order name: CBC with Diff; Complete Time: 16: kdr 08/21 14:39 Order name: Hepatic Function; Complete Time: 16: kdr 08/21 14:39 Order name: Lipase; Complete Time: 16:31 kdr 08/21 14:39 Order name: IV Saline Lock; Complete Time: 14:48 kdr 08/21 14:39 Order name: Labs collected and sent; Complete Time: 14:48 kdr 08/21 19:00 Order name: VS Recheck; Complete Time: 19:23 kdr Administered Medications: 16:00 Drug: Zofran (Ondansetron) 4 mg Route: IVP; Site: right upper arm; 6 17:42 Follow up: Response: No adverse reaction 6 16:01 Drug: NS 0.9% 1000 ml Route: IV; Rate: 1 bolus; Site: right upper arm; 6 16:42 Follow up: Response: Pain is unchanged, physician notified 6 16:01 Drug: morphine 4 mg Route: IVP; Site: right upper arm; 6 16:41 Follow up: Response: Pain is unchanged, physician notified 6 16:42 Follow up: Response: Pain is unchanged, physician notified 6 17:04 Drug: Dilaudid (HYDROmorphone) 2 mg Route: IVP; Site: right upper arm; 6 17:42 Follow up: Response: Pain is decreased 6 17:05 Drug: Pepcid (famotidine) 20 mg Route: IVP; Site: right upper arm; 6 17:43 Follow up: Response: No adverse reaction [facility] 17:13 Drug: Phenergan (promethazine) 25 mg Route: IVP; Site: right upper arm; 6 17:43 Follow up: Response: No adverse reaction [facility] Disposition Summary: 08/21/21 19:06 Discharge Ordered Location: Home kdr Problem: an acute exacerbation kdr Symptoms: have improved kdr Condition: Stable kdr Diagnosis - Headache kdr - Nausea with vomiting, unspecified kdr Followup: kdr - With: Private Physician - When: 2 - 3 days - Reason: If symptoms return, Further diagnostic work-up, Recheck today's complaints, Continuance of care, Re-evaluation by your physician Discharge Instructions: - Discharge Summary Sheet kdr - General Headache Without Cause kdr - Hypertension, Adult kdr - Nausea and Vomiting, Adult kdr - Migraine Headache, [id number] kdr Forms: - Medication Reconciliation Form kdr - Thank You Letter kdr Prescriptions: - clonidine HCl 0.2 mg Oral tablet - take 1 tablet by ORAL route 3 times per day; 60 tablet; Refills: 0, Product kdr Selection Permitted - Carvedilol 12.5 mg Oral Tablet - take 1 tablet by ORAL route 2 times per day with food; 60 tablet; Refills: 0, kdr Product Selection Permitted Signatures: Dispatcher [employer] Bobo Mendoza MD MD kdr Annie Fiore RN RN tw2 Mariely Feng RN RN jh6
--- NOTE | 2021-08-21 19:07 | ER ---
Nurse's Notes [facility] Name: Margie Garcia Age: 51 yrs Sex: Female : 1970 Arrival Date: 08/21/2021 Time: 14:22 Bed 20 Private MD: Diagnosis: Headache;Nausea with vomiting, unspecified Presentation: 08/21 14:27 Chief complaint: Patient states: yesterday when i got home i threw up bright red blood. tw2 every time after i eat or drink it comes right back out. there is this burning mid center of my chest and it goes over the right of my chest. the pain is better than yesterday but i have never had this feeling. Coronavirus screen: At this time, the client does not indicate any symptoms associated with coronavirus-19. Ebola Screen: Patient denies travel to an Ebola-affected area in the 21 days before illness onset. Initial Sepsis Screen: Does the patient meet any 2 criteria? No. Patient's initial sepsis screen is negative. Does the patient have a suspected source of infection? No. Patient's initial sepsis screen is negative. Risk Assessment: Do you want to hurt yourself or someone else? Patient reports no desire to harm self or others. Onset of symptoms was August 21, 2021. 14:27 Method Of Arrival: Ambulatory tw2 14:27 Acuity: BHARAT 3 tw2 Triage Assessment: 14:29 General: Appears in no apparent distress. slender, well groomed, Behavior is calm, tw2 cooperative, appropriate for age. Pain: Complains of pain in xiphoid area and mid-sternal area Pain radiates to epigastric area. GI: Reports nausea. 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 - Social history:: Smoking status: . Screenin:50 Abuse screen: Denies threats or abuse. Nutritional screening: No deficits noted. jh6 Tuberculosis screening: No symptoms or risk factors identified. Fall Risk None identified. IV access (20 points). Assessment: 14:30 GI: tw2 14:48 General: Appears in no apparent distress. uncomfortable, Behavior is calm, cooperative. jh6 Pain: Complains of pain in epigastric area Pain currently is 8 out of 10 on a pain scale. Quality of pain is described as burning, sharp, Pain began 2-3 days ago. Is continuous, Aggravated by eating, drinking, Also complains of nausea vomiting. GI: Abdomen is flat, Reports upper abdominal pain, cramping, intolerance of fluids, nausea, vomiting. 16:30 Reassessment: Patient and/or family updated on plan of care and expected duration. Pain jh6 level reassessed. Patient is alert, oriented x 3, equal unlabored respirations, skin warm/dry/pink. pt still gagging, no blood noted in emesis bag. family at bedside. 17:30 General: Appears comfortable, Behavior is calm, cooperative. jh6 17:30 Pain: Complains of pain in epigastric area Pain currently is 4 out of 10 on a pain jh6 scale. Quality of pain is described as burning, sharp, Is continuous, Also complains of nausea. Vital Signs: 14:27 BP 138 / 104; Pulse 89; Resp 17; Temp 98.4(TE); Pulse Ox 99% on R/A; Weight 58.97 kg tw2 (R); Height 5 ft. 5 in. (165.10 cm); Pain 8/10; 16:00 BP 219 / 120; Pulse 76; Resp 18; Pulse Ox 98% ; Pain 10/10; jh6 17:00 BP 179 / 111; Pulse 79; Resp 18; Pulse Ox 100% ; Pain 9/10; jh6 17:00 BP 173 / 126; Pulse 86; Resp 17; Pulse Ox 100% ; Pain 5/10; jh6 19:22 BP 153 / 108; Pulse 86; Resp 16; Pulse Ox 100% on R/A; ll3 14:27 Body Mass Index 21.63 (58.97 kg, 165.10 cm) tw2 ED Course: 14:22 Patient arrived in ED. as 14:29 Triage completed. tw2 14:30 Arm band placed on. tw2 14:32 Mariely Feng, MARCK is Primary Nurse. jh6 14:34 Bobo Hidalgo MD is Attending Physician. kdr 14:50 No provider procedures requiring assistance completed. jh6 14:51 Bed in low position. Call light in reach. Side rails up X 1. jh6 19:24 IV discontinued, intact, bleeding controlled, No redness/swelling at site. Pressure ll3 dressing applied. Administered Medications: 16:00 Drug: Zofran (Ondansetron) 4 mg Route: IVP; Site: right upper arm; jh6 17:42 Follow up: Response: No adverse reaction jh6 16:01 Drug: NS 0.9% 1000 ml Route: IV; Rate: 1 bolus; Site: right upper arm; 6 16:42 Follow up: Response: Pain is unchanged, physician notified jh6 16:01 Drug: morphine 4 mg Route: IVP; Site: right upper arm; jh6 16:41 Follow up: Response: Pain is unchanged, physician notified jh6 16:42 Follow up: Response: Pain is unchanged, physician notified jh6 17:04 Drug: Dilaudid (HYDROmorphone) 2 mg Route: IVP; Site: right upper arm; jh6 17:42 Follow up: Response: Pain is decreased jh6 17:05 Drug: Pepcid (famotidine) 20 mg Route: IVP; Site: right upper arm; jh6 17:43 Follow up: Response: No adverse reaction jh6 17:13 Drug: Phenergan (promethazine) 25 mg Route: IVP; Site: right upper arm; 6 17:43 Follow up: Response: No adverse reaction [facility] Outcome: 19:06 Discharge ordered by . kdr 19:24 Discharged to home ambulatory, with family. ll3 19:24 Condition: stable 19:24 Discharge instructions given to patient, family, Instructed on discharge instructions, follow up and referral plans. medication usage, Demonstrated understanding of instructions, follow-up care, medications, Prescriptions given X 2. 19:24 Patient left the ED. ll3 Signatures: Bobo Hidalgo MD MD kdr Martinez, Amelia as Wise, Tara, RN RN 2 Na Thompson RN RN 3 Mariely Feng RN RN jh6 Corrections: (The following items were deleted from the chart) 18:17 17:30 Reassessment: Patient and/or family updated on plan of care and expected jh6 duration. Pain level reassessed. Patient is alert, oriented x 3, equal unlabored respirations, skin warm/dry/pink. pt still gagging, no blood noted in emesis bag. family at bedside. jh6
[2021-08-21 19:42] VITALS: TEMP 98.4
[2021-08-21 19:53] VITALS: O2SAT 100
[2021-08-21 19:55] VITALS: BP 153/108
== END 2021-08-21 19:24 | disposition home or self-care (01) ==
LOC: ER 14:21
DX: R11.2 Nausea with vomiting, unspecified (principal); R51.9 Headache, unspecified; I10 Essential (primary) hypertension; Z88.8 Allergy status to other drugs, medicaments and biological substances
CPT/HCPCS: 85025; 80048; 36415; 80076; 83690; 96375; 96374; 99283; J2550; C9113; J3480; J1170; J7030; J2405 ×2

== ENCOUNTER 2022-05-07 11:46 | Observation (INO) | payer OTHER ==
--- OUTSIDE RECORDS SUMMARY | 2022-05-07 11:58 | XMS REPORT | Continuity of Care Document ---
:1970 Author Organization [facility] t Address [address] [place] [address] Care Team Providers Name Role Phone ALAINA MENON ALFREDO Primary Care Physician Unavailable ORAL Attending Clinician Unavailable Jm GERARDO, Earnestine Attending Clinician Asael ACHARYA, Radha Carver Attending Clinician Unavailable Mala Szymanski Attending Clinician Ny Carreon MD Attending Clinician Billy Tapia MD Attending Clinician BILLY TAPIA Attending Clinician Unavailable Francisco Jorge Attending Clinician DR CAS ERVIN I Attending Clinician Unavailable DR LESTER LANCASTER Attending Clinician Unavailable DR DYLON WEBSTER Attending Clinician Unavailable DR PATI THOMAS Attending Clinician Unavailable MS ANDREW PEREZ Attending Clinician Unavailable Kiera Conley Attending Clinician Jose Carreon Si Attending Clinician Shashank Lopez Attending Clinician Aedlia Meehan Attending Clinician Meng Bernard Attending Clinician Arvin Francisco Attending Clinician Sebastian Cheema Attending Clinician Sunil Ruiz Attending Clinician Cari Leggett Attending Clinician Iram Lunsford Attending Clinician Deeapk Ricardo Attending Clinician ORAL Admitting Clinician Unavailable Regina GERARDO, Billy Admitting Clinician BILLY TAPIA Admitting Clinician Unavailable DR CAS ERVIN I Admitting Clinician Unavailable TONNY, DR BATISTA Admitting Clinician Unavailable DR DYLON WEBSTER Admitting Clinician Unavailable WILLIAM, DR KRUEGER Admitting Clinician Unavailable CHRIS, MS GERMAN Admitting Clinician Unavailable Cari Leggett Admitting Clinician Payers Payer Name Policy Type Policy Number Effective Date Expiration Date S ource Problems Condition Condition Condition Status Onset Resolution Last Treating Co mments Source Name Details Category Date Date Treatment Clinician Date Enterocoli Enterocoli Disease Active 2021- U nivers tis tis 5-17 ity of 00:00: [address] Troponin I Troponin I Disease Active 2021-0 U nivers above above 5-17 [place] range range 00 [facility] Other Other Disease Active 2021-0 Univers chest pain chest pain 5-17 it y of 00:00: [address] Elevated Elevated Disease Active 2021-0 Unive rs brain brain 5-17 ity of natriureti natriureti [place] c peptide c peptide 00 Medi yessenia (BNP) (BNP) Branch level level Hypertensi Hypertensi Disease Active 2021-0 U nivers ve urgency ve urgency 5-17 it y of 00:00: [place] [facility] Branch Cigarette Cigarette Disease Active 2021-0 Uni vers smoker smoker 5-17 ity of 00:00: [address] Proctocoli Proctocoli Disease Active 2021-0 U nivers tis tis 5-16 ity of 00:00: [address] HEADACHE HEADACHE Diagnosis Active 2016-062017-04-15 Memoria Active 0-13 09:59:00 l 04/09/2017 00:00: Bill [place] M54.5 - M54.5 - Diagnosis Active 2017-02-28 Memoria LOW BACK LOW BACK 01-18 15:41:00 l PAIN PAIN 00:01: [place] Active 00 01/18/2017 [facility]ID [facility] RIB PAIN RIB PAIN Diagnosis Active 2015-062016-06-06 Memoria Active 08-07 11:37:00 l 06/06/2016 00:00: Bill [place] FALL FALL Diagnosis Active 2015-062016-06-05 Mem oria Active 08-06 20:56:00 l 06/05/2016 00:00: Bill [place]KIN[place] VOMITING VOMITING Diagnosis Active 2014-062015-04-27 Memoria Active 15:30:00 l 04/27/2015 00:00: Bill [place]KINSON [place] INTRACTIBL INTRACTIB Diagnosis Active 2014-062015-04-29 Memoria E VOMITING LE 14:11:00 l VOMITING 00:00: [place] Active 00 04/27/2015 [facility] FOOT PAIN FOOT PAIN Diagnosis Active 2014-12-30 Memoria OR INJURY OR INJURY 12-30 17:20:00 l Active 09:00: [place] 12/30/2014 00 [facility] HIGH BP HIGH BP Diagnosis Active 2014-07-20 Memoria Active 07-19 00:57:00 l 07/19/2014 19:00: Bill [place] HTN HTN Disease Active Univers (hypertens (hypertens 7-26 it y of ion) ion) 00:00: [place] [address] Medical Branch Headache Headache Problem 2018-08-29 Memoria 08/29/2018 16:13:53 l [place] Nausea Nausea Problem 2018-08-29 Joe peter with with 16:13:53 l vomiting, vomiting, Herm tc unspecifie unspecifie d d 08/29/2018 [facility] [place] Elevated Elevated Problem 2018-08-29 Memoria white white 16:13:53 l blood cell blood cell He rmann count, count, unspecifie unspecifie d d 08/29/2018 [facility] Low back Low back Problem 2018-08-29 Memoria pain pain 16:13:53 l 08/29/2018 Bill ATKINSON [facility] Other Other Problem 2018-08-29 Memor ia chronic chronic 16:13:53 l pain pain [place] 08/29/2018 [facility] Essential Essential Problem 2018-08-29 Memoria (primary) (primary) 16:13:53 l hypertensi hypertensi He rmann on on 08/29/2018 [facility] 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 2018-08-29 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:13: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 He rmann 9 [facility] Personal Personal Problem 2018-08-29 Memoria history of history of 16:13:53 l nicotine nicotine Bill carranza dependence dependence 08/29/2018 [facility] Cervicalgi Cervicalg Problem 2018-08-14 Memoria a ia 15:42:10 l 08/14/2018 Bill n [facility] Injury of Injury of Problem Resolve 2020-11-30 Memoria back back d 01:03:52 l (disorder) (disorder) He rmann Resolved Problem 11/30/2020 [facility] Migraine Migraine Problem Resolve 2020-11-30 Memoria (disorder) (disorder) d 01:03:52 l Resolved [place] Problem 11/30/2020 [facility], [facility] Ready to Ready to Problem Resolve 2020-11-30 Memoria stop stop d 01:03:52 l smoking smoking [place] (finding) (finding) Resolved Problem 11/30/2020 [facility] Chronic Chronic Problem Active 2020-11-30 Me moria low back low back 01:03:52 l pain pain [place] (disorder) (disorder) Active [facility] History of History Problem Active 2020-11-30 Memoria - of - 01:03:52 l myocardial myocardial He rmann infarction infarction (context-d (context-d ependent ependent category) category) Active Problem 11/30/2020 [facility] Group History of Past Illness Condition Condition Condition Status Onset Resolution Last Treating Co mments Source Name Details Category Date Date Treatment Clinician Date Other Other Problem 2017-2018-08-29 2018-08-29 M emoria chest pain chest pain 02-16 16:13:53 16:13:53 l 02/16/2018 04:14: Bill n 08/29/2018 03 [facility] Migraine, Migraine, Problem 2017-0 2017-11-04 2017-11-04 Memoria unspecifie unspecifie 11-01 02:29:41 02:29:41 l d, not d, not 05:00: [place] intractabl intractabl 00 e, without e, without status status migrainosu migrainosu s s 11/01/2017 8 [facility] Migraine Migraine Problem 2016-062017-04-12 2017-04-12 Memoria without without 0-13 05:35:07 05:35:07 l aura, not aura, not 05:00: Herm tc intractabl intractabl 00 e, without e, without status status migrainosu migrainosu s s 04/09/2017 04/12/2017 [facility] Chest Chest Problem 2017-01-23 2017-01-23 M emoria pain, pain, 01-20 03:58:05 03:58:05 l unspecifie unspecifie 05:00: He huseyin d d 00 01/20/2017 01/23/2017 [facility] Dorsalgia, Dorsalgia Problem 2017-01-11 2017-01-11 Memoria unspecifie , 01-08 03:19:13 03:19:13 l d unspecifie 05:00: Bill n d 00 01/08/2017 01/11/2017 [facility] Discharge Discharge Problem 2015-062016-06-09 2016-06-09 Memoria Diagnosis: Diagnosis: 08-07 02:24:40 02:24:40 l Rib Rib 06:00: [place] fractures fractures 00 06/06/2016 06/09/2016 [facility] Discharge Discharge Problem 2015-062016-06-08 2016-06-08 Memoria Diagnosis: Diagnosis: 08-06 04:48:18 04:48:18 l Closed Closed 06:00: [place] fracture fracture 00 of four of four ribs ribs 06/05/2016 06/08/2016 [facility] Discharge Discharge Problem 2015-062016-06-08 2016-06-08 Memoria Diagnosis: Diagnosis: 08-06 04:48:18 04:48:18 l Acute head Acute head 06:00: He huseyin injury injury 00 06/05/2016 06/08/2016 [facility] Discharge Problem 2015-062016-06-08 2016-06-08 Memoria Diagnosis: Discharge 08-06 04:48:18 04:48:18 l Accidental Diagnosis: 06:00: He rmann fall Accidental 00 fall 06/05/2016 06/08/2016 [facility] Discharge Problem 2015-062016-05-17 2016-05-17 Memoria Diagnosis: Discharge 07-14 04:33:41 04:33:41 l Migraine Diagnosis: 06:00: Sergio montez Migraine 00 05/14/2016 05/17/2016 [facility] Discharge Discharge Problem 2015-01-02 2015-01-02 Memoria Diagnosis: Diagnosis: 12-30 00:50:48 00:50:48 l Cellulitis Cellulitis 05:00: He huseyin of [facility] 00 toe toe 12/30/2014 01/02/2015 [facility] Discharge Discharge Problem 2014-10-25 2014-10-25 Memoria Diagnosis: Diagnosis: 10-22 03:19:10 03:19:10 l Anemia Anemia 05:00: [place] 10/22/2014 00 10/25/2014 [facility] Discharge Discharge Problem 2014-10-25 2014-10-25 Memoria Diagnosis: Diagnosis: 10-22 03:19:10 03:19:10 l Edema Edema 05:00: [place] 10/22/2014 00 10/25/2014 [facility] Discharge Discharge Problem 2014-07-22 2014-07-22 Memoria Diagnosis: Diagnosis: 07-20 15:27:52 15:27:52 l Acute Acute 06:00: [place] headache headache 00 07/20/2014 07/22/2014 [facility] Discharge Discharge Problem 2014-07-22 2014-07-22 Memoria Diagnosis: Diagnosis: 07-20 15:27:52 15:27:52 l Weakness Weakness 06:00: Bill n 07/20/2014 00 07/22/2014 [facility] Allergies, Adverse Reactions, Alerts Allergy Allergy Status Severity Reaction(s) Onset Inactive Treating Comm ents Source Name Type Date Date Clinician Sumatrip Propensi Active Unknown - "I almost Univers cordova ty to See comments 01-30 had a ity of Succinat adverse 00:00: heart [place] e reaction 00 attack Medical s and a Branch stroke" SUMATRIP DRUG Active Unknown-Cmnt Un danielle CORDOVA INGREDI 8-05 ity of SUCCINAT 00:00: [place] E 00 Medical Branch Imitrex Imitrex Active Shortness of Me moria breath, l Chest [place] discomfort (finding) traMADol traMADol Active Martinori a emelia Jerez Social History Social Habit Start Date Stop Date Quantity Comments Source Exposure to 2021-10-31 2021-11-10 Not sure [facility]-CoV-2 00:00:00 19:22:00 [facility] (event) Branch Tobacco use and 2021-11-10 2021-11-10 Current user Univers ity of exposure 00:00:00 00:00:00 [facility] Alcohol intake 2021-11-10 2021-11-10 Ex-drinker [facility] 00:00:00 00:00:00 (finding) [facility] Social History 2020-11-27 2020-11-27 [facility] erik 20:31:29 20:31:29 [birth year] Universit y of 00:00:00 00:00:00 [facility] Smoking Status Start Date Stop Date Source Current every day smoker 2021-11-10 00:00:00 Uni versity of [facility] Medications Ordered Filled Start Stop Current Ordering Indication Dosage Frequency Signature Comments Components Source Medication Medication Date Date Medication? Clinician (SIG) Name Name HYDROmorphO 2021- No .2mg 0.2 mg, Un danielle ne 11-12 Slow IV ity of (DILAUDID) 23:30: 22:41 Push, [place] injection 00 :00 ONCE, 1 Medical 0.2 mg dose, On Branch Wed11/12/21 at 1830, Routine
Use approved by (Faculty): ADC PROVIDER carvediloL Yes [id number] 25mg Take 1 Univers 25 mg 5-18 tablet by ity of tablet 00:00: mouth 2 [place] 00 (two) Medical times Branch daily with meals. sucralfate Yes [id number] 1g Take 1 Univers 1 gram 5-18 tablet by ity of tablet 00:00: mouth [place] 00 before Medical meals and Branch at bedtime. ondansetron Yes [id number] 4mg Take 1 Univers 4 mg tablet 5-18 tablet by ity of 00:00: mouth [place] 00 every 8 Medical (eight) Branch hours. amLODIPine 2022-0 Yes [id number] 5mg Take 1 Univers 5 mg tablet 5-18 tablet by ity of 00:00: mouth [place] 00 daily. Medical Branch carvediloL 2-0 Yes [id number] 25mg Take 1 Univers 25 mg 5-18 tablet by ity of tablet 00:00: mouth 2 [place] 00 (two) Medical times Branch daily with meals. sucralfate 2022-0 Yes [id number] 1g Take 1 Univers 1 gram 5-18 tablet by ity of tablet 00:00: mouth [place] 00 before Medical meals and Branch at bedtime. ondansetron 2-0 Yes [id number] 4mg Take 1 Univers 4 mg tablet 5-18 tablet by ity of 00:00: mouth [place] 00 every 8 Medical (eight) Branch hours. amLODIPine 2-0 Yes [id number] 5mg Take 1 Univers 5 mg tablet 5-18 tablet by ity of 00:00: mouth [place] 00 daily. Medical Branch carvediloL 2021-0 Yes [id number] 25mg Take 1 Univers 25 mg 5-18 tablet by ity of tablet 00:00: mouth 2 [place] 00 (two) Medical times Branch daily with meals. sucralfate 2022-0 Yes [id number] 1g Take 1 Univers 1 gram 5-18 tablet by ity of tablet 00:00: mouth [place] 00 before Medical meals and Branch at bedtime. ondansetron 2-0 Yes [id number] 4mg Take 1 Univers 4 mg tablet 5-18 tablet by ity of 00:00: mouth [place] 00 every 8 Medical (eight) Branch hours. amLODIPine 2-0 Yes [id number] 5mg Take 1 Univers 5 mg tablet 5-18 tablet by ity of 00:00: mouth [place] 00 daily. Medical Branch pantoprazol 2-0 2022- No [id number] 40mg Take 1 Univers e 40 mg EC 5-18 06-02 tablet by ity of tablet 00:00: 04:59 mouth [place] 00 :00 daily for Medical 14 days. Branch pantoprazol 2022-0 2022- No [id number] 40mg Take 1 Univers e 40 mg EC 5-18 06-02 tablet by ity of tablet 00:00: 04:59 mouth [place] 00 :00 daily for Medical 14 days. Branch pantoprazol 2022-0 2022- No [id number] 40mg Take 1 Univers e 40 mg EC 5-18 06-02 tablet by ity of tablet 00:00: 04:59 mouth [place] 00 :00 daily for Medical 14 days. Branch amoxicillin No [id number] 1{tbl} Take 1 Univers -clavulanat 5-18 05-24 tablet by it y of e 00:00: 04:59 mouth 2 [place] (AUGMENTIN) 00 :00 (two) Medical 875-125 mg times Branch per tablet daily for 5 days. HYDROcodone No [id number] 1{tbl} Take 1 U nivers -acetaminop 5-18 05-24 tablet by it y of hen 5-325 00:00: 04:59 mouth [place] mg tablet 00 :00 every 6 Medical (six) Branch hours as needed for Pain (scale 7-10) for up to 5 days. Indication s: acute pain amoxicillin No [id number] 1{tbl} Take 1 Univers -clavulanat 5-18 05-24 tablet by it y of e 00:00: 04:59 mouth 2 [place] (AUGMENTIN) 00 :00 (two) Medical 875-125 mg times Branch per tablet daily for 5 days. HYDROcodone No [id number] 1{tbl} Take 1 U nivers -acetaminop 5-18 05-24 tablet by it y of hen 5-325 00:00: 04:59 mouth [place] mg tablet 00 :00 every 6 Medical (six) Branch hours as needed for Pain (scale 7-10) for up to 5 days. Indication s: acute pain amoxicillin No [id number] 1{tbl} Take 1 Univers -clavulanat 5-18 05-24 tablet by it y of e 00:00: 04:59 mouth 2 [place] (AUGMENTIN) 00 :00 (two) Medical 875-125 mg times Branch per tablet daily for 5 days. HYDROcodone No [id number] 1{tbl} Take 1 U nivers -acetaminop 5-18 05-24 tablet by it y of hen 5-325 00:00: 04:59 mouth [place] mg tablet 00 :00 every 6 Medical (six) Branch hours as needed for Pain (scale 7-10) for up to 5 days. Indication s: acute pain HYDROmorphO 2021- No 1mg 1 mg, Slow Univers ne 11-11 0518 IV Push, ity of (DILAUDID) 18:22: 17:26 Q4HPRN, Jake as injection 1 49 :50 Starting Medi yessenia mg on Wed11/11/21 at 1322, Until Wed11/12/21 at 1226, Routine, Pain (scale 7-10)
U se approved by (Faculty): ADC PROVIDER morpHINE (2 Yes 2mg 2 mg, Slow Univers mg/mL) 11-11 IV Push, ity of injection 2 17:57: Q4HPRN, [place] mg 17 Starting Medical on Wed11/11/21 at 1257, Until Discontinu ed, Routine, Pain (scale 4-6) HYDROmorpho 2021- No .2mg 0.2 mg, Un danielle ne 11-11 Slow IV ity of (DILAUDID) 17:27: 18:25 Push, [place] injection 50 :18 Q4HPRN, Medical 0.2 mg Starting Branch on Wed11/11/21 at 1227, Until Wed11/11/21 at 1325, Routine, Pain (scale 7-10)
U se approved by (Faculty): ADC PROVIDER nicotine Yes 1{patch 1 Patch, Un danielle (NICODERM) 11-11 } Topical, ity o f 14 mg/24 hr 15:45: Administer [place] patch 1 00 over 24 Medical Patch Hours, Branch Q24H, First dose on Wed11/11/21 at 1045, Until Discontinu ed, Routine enoxaparin Yes 30mg 30 mg, Unive rs (LOVENOX) 5-17 Subcutaneo ity of injection 14:00: us, DAILY, [place] 30 mg 00 First dose Medical on Wed11/11/21 at 0900, Until Discontinu ed, Routine carvediloL Yes 25mg 25 mg, Unive rs (COREG) 5-17 Oral, BID ity of tablet 25 13:00: MEALS, [place] mg 00 First dose Medical on Wed11/11/21 at 0800, Until Discontinu ed, Routine sucralfate 2021-0 Yes 1g 1,000 mg Uni vers (CARAFATE) 11-11 (1 g), ity of 100 mg/mL 12:30: Oral, [place] suspension 00 AC+HS, Medical 1,000 mg First dose Branc h on Wed11/11/21 at 0730, Until Discontinu ed, Routine piperacilli 2021-0 Yes 3.375g 3.375 g, Univers n-tazobacta 11-11 IV ity of m (ZOSYN) 07:00: [place]back, [place] 3.375 g in 00 Q6H ABX, Medic al NaCl 0.9% First dose Bran ch (NS) 50 mL (after MINI-BAG last reorder) on Wed11/11/21 at 0200, Until Discontinu ed, Administer over 30 Minutes, 50 mL
Reas on for Anti-Infec tive: Empiric Therapy for Suspected Infection< br>Empiric Therapy Site: Abdominal< br>Duratio n of therapy: 72 hours NaCl 0.9% 0 Yes 1000mL at 150 Univ ers (NS) IV 5-17 mL/hr, IV ity of infusion 06:00: Infusion, [place] 1,000 mL 00 CONTINUOUS Medic al , Starting Branch on Wed11/11/21 at 0100, Until Discontinu ed, Routine pantoprazol 0 Yes 8mg/h 8 mg/hr Un danielle e 11-11 (50 ity of (PROTONIX) 06:00: mL/hr), IV [place] 80 mg in 00 Infusion, Medica l NaCl 0.9% CONTINUOUS Bran ch (NS) 500 mL , Starting infusion on Wed11/11/21 at 0100 pantoprazol 2021-0 2022- No 80mg 80 mg, Uni vers e 11-11 Slow IV ity of (PROTONIX) 06:00: 05:57 Push, [place] injection 00 :00 ONCE, 1 Medical 80 mg dose, On Branch Wed11/11/21 at 0100 LORazepam 2-0 2022- No 1mg 1 mg, Slow U nivers (ATIVAN) 11-11 IV Push, ity of injection 1 06:00: 05:39 ONCE, 1 [place] mg 00 :00 dose, On Medical [facility] 11/11/21 at 0100, ITA NaCl 0.9% 2021- No 500mL at 999 Univ ers (NS) bolus 11-11 mL/hr, 500 it y of infusion 06:00: 05:19 mL, IV [place] 500 mL 00 :00 Infusion, Medical ONCE, 1 Branch dose, On [facility] 11/11/21 at 0100, Routine morpHINE (2 2021- No 2mg 2 mg, Slow Univers mg/mL) 11-11 IV Push, ity of injection 2 05:07: 17:57 Q4HPRN, [place] mg 16 :36 Starting Medical on [facility] 11/11/21 at 0007, Until [facility] 11/11/21 at 1257, Routine, Pain (scale 7-10) ondansetron 0 Yes 4mg 4 mg, Slow Univers (ZOFRAN 11-11 IV Push, ity of (PF)) 05:06: Q6HPRN, [place] injection 4 58 Starting Medi yessenia mg on [facility] 11/11/21 at 0006, Until Discontinu ed, Routine, Nausea and Vomiting (N/V) metoclopram 0 Yes 10mg 10 mg, Univ ers james HCl 11-11 Slow IV ity of (REGLAN) 05:00: Push, Q8H, [place] injection 00 First dose Medi yessenia 10 mg on [facility] 11/11/21 at 0000, Until Discontinu ed, Routine labetaloL 0 Yes 10mg 10 mg, Univer s (NORMODYNE) 11-11 Slow IV ity o f injection 04:55: Push, [place] 10 mg 05 Q4HPRN, Medical Starting Branch on [facility] 11/10/21 at 2355, Until Discontinu ed, Routine, SBP > 180 or DBP > 110; hold if HR < 65 FENTanyl PF 2021- No 50ug 50 mcg, Un danielle (SUBLIMAZE 11-11 Slow IV ity o f (PF)) 03:30: 02:40 Push, [place] injection 00 :00 ONCE, 1 Medical 50 mcg dose, On Branch [facility] 11/10/21 at 2230, STAT morpHINE (4 2021- No 4mg 4 mg, Slow Univers mg/mL) 11-11 IV Push, ity of injection 4 02:45: 02:04 ONCE, 1 [place] mg 00 :00 dose, On Medical Mon Branch 11/10/21 at 2145, STAT proMETHazin No 25mg 25 mg, IV Univers e 11-11 Piggyback, ity of (PHENERGAN) 02:45: 02:04 ONCE, 1 [place] 25 mg in 00 :00 dose, On Medical NaCl 0.9% Mon Branch (NS) 50 mL 11/10/21 at IV 2145, ITA piggyback NaCl 0.9% 2021- No 1000mL at 999 Uni vers (NS) bolus 11-11 mL/hr, ity of infusion 02:00: 01:29 1,000 mL, [place] 1,000 mL 00 :00 IV Medical Infusion, Branch ONCE, 1 dose, On 11/10/21 at 2100, ITA hydralAZINE No 20mg 20 mg, Uni vers (APRESOLINE 11-11 Slow IV ity of ) injection 02:00: 01:29 Push, [place] 20 mg 00 :00 ONCE, 1 Medical dose, On Branch 11/10/21 at 2100, STAT piperacilli No 3.375g 3.375 g, Univers n-tazobacta 11-11 IV ity of m (ZOSYN) 02:00: 01:59 [place]gyback, [place] 3.375 g in 00 :00 ONCE, 1 Medica l NaCl 0.9% dose, On Branch (NS) 50 mL Mon MINI-BAG 11/10/21 at 2100, Administer over 30 Minutes, 50 mL
R aki for Anti-Infec tive: Empiric Therapy for Suspected Infection< br>Empiric Therapy Site: Abdominal< br>Duratio n of therapy: 72 hours iopamidol 2021- No [id number] 100mL 100 mL, Univers (ISOVUE 11-11 Intravenou ity o f 370-500 mL) 01:45: 00:30 s, ONCE, 1 [place] injection 00 :00 dose, On Medica l 100 mL [facility] Branch 11/10/21 at 2045, Routine morpHINE (4 2021- No 4mg 4 mg, Slow Univers mg/mL) 11-11 IV Push, ity of injection 4 00:45: 00:17 ONCE, 1 [place] mg 00 :00 dose, On Medical Mon Branch 11/10/21 at 1945, STAT ondansetron 2021- No 4mg 4 mg, Slow Univers (ZOFRAN 11-11 IV Push, ity of (PF)) 00:45: 00:16 ONCE, 1 [place] injection 4 00 :00 dose, On Medi yessenia mg [facility] Branch 11/10/21 at 1945, ITA NaCl 0.9% 2021- No 1000mL at 999 Uni vers (NS) bolus 11-11 mL/hr, ity of infusion 00:45: 00:16 1,000 mL, [place] as 1,000 mL 00 :00 IV Medical Infusion, Branch ONCE, 1 dose, On [facility] 11/10/21 at 1945, ITA Acetaminoph Yes 1 tab, PO, Memoria en 300 MG / 6-02 Q6H, 0 l Codeine 20:52: Refill(s) Holly nn Phosphate 00 30 MG Oral Tablet carvedilol Yes 25 mg = 1 Me moria 25 mg oral 6-02 tab, PO, l tablet 20:41: BID, 0 [place] 00 Refill(s) Clonidine Yes 0.3 mg = 1 Me moria Hydrochlori 6-02 tab, PO, l de 0.3 MG 20:41: TID, 0 Bill n Oral Tablet 00 Refill(s) Zofran 2018-0 No 4 mg, Memoria 8-15 Route: l 22:28: IVP, Drug form: INJ, ONCE, Dosing Weight 90.409, kg, Priority: STAT, Start date: 02/09/18 17:28:00 CDT, Stop date: 02/09/18 17:28:00 CDT Morphine 2017-0 No 4 mg, Memoria 815 Route: l 22:28: IVP, ONCE, Dosing Weight 90.409, kg, Priority: STAT, Start date: 02/09/18 17:28:00 CDT, Stop date: 02/09/18 17:28:00 CDT Nitroglycer No 1 inch, Mem oria in 0.02 02-09 Route: l MG/MG 22:27: TOP, [place] Topical Dosing Ointment Weight 90.409, kg, ONCE, STAT, Start date: 02/09/18 17:27:00 CDT, Stop date: 02/09/18 17:27:00 CDT NS (Bolus) No 1,000 mL, Me moria IV 02-09 1,000 l 18:43: ml/hr, [place] 00 Infuse Over: 1 hr, Route: IV, 1,000, Drug form: INJ, ONCE, Priority: STAT, Dosing Weight 90.409 kg, Start date: 02/09/18 13:43:00 CDT, Stop date: 02/09/18 13:43:00 CDT Zofran No Notes: Memoria 02-09 (Same as: l 18:43: Zofran) 00 MEDICATION WASTE Product Size: 4 mg Product Wasted: ___ mg lidocaine No Notes: Memori a 2% 01-25 (Same as: l 16:32: Xylocaine) Compazine No Notes: Memori a 01-25 (Same as: l 14:53: Compazine) Benadryl No Notes: Memoria 01-25 (Same as: l 14:53: Benadryl) Ketorolac No 4 days Memor ia 01-25 l 14:52: MEDICATION WASTE Product Size: 30 mg Product Wasted: _15__ mg NS (Bolus) No 1,000 mL, Me moria IV 01-25 1,000 l 14:52: ml/hr, [place]it[place] 00 Infuse Over: 1 hr, Route: IV, 1,000, Drug form: INJ, ONCE, Priority: STAT, Dosing Weight 101.534 kg, Start date: 01/25/18 9:52:00 CDT, Stop date: 01/25/18 9:52:00 CDT Acetaminoph No 1 - 2 tab, Memoria en 300 MG / -07 PO, Q4H, l Codeine 20:03: PRN Pain, Holly nn Phosphate 00 X 2 day, # 60 MG Oral 20 ea, 0 Tablet Refill(s) [Tylenol with Codeine #4] Promethazin Yes 25 mg = 1 M emoria e -07 tab, PO, l Hydrochlori 20:03: Q4H, PRN He rmann de 25 MG 00 Nausea, # Oral Tablet 18 tab, 0 Refill(s) Hydromorpho No Notes: Joe peter ne 11-01 Same as l 18:20: Dilaudid NS 1,000 mL No 1,000 mL, M emoria 11-01 Rate: l 18:20: 1,000 Solit[place] 00 ml/hr, Infuse over: 1 hr, Route: IV, Dosing Weight 99.744 kg, Total Volume: 1,000, Start date: 11/01/17 13:20:00 CDT, Duration: 1 doses or times, Stop date: 11/01/17 14:19:00 CDT, Bolus Dose, 2.17, m2 Prochlorper No Notes: Joe peter azine 11-01 (Same as: l 18:20: Compazine) Benadryl No Notes: Memoria 11-01 (Same as: l 18:20: Benadryl) Metoclopram 2016-06 Yes 10 mg = 1 M emoria james 10 MG 1-20 tab, PO, l Oral Tablet 04:00: QID-Before Solitario [Reglan] 00 Meals, PRN nausea and vomiting, X 10 day, # 40 tab, 0 Refill(s) Acetaminoph 2016-06 Yes 1-2 cap, Me moria en 300 MG / 1-20 PO, Q4H, l butalbital 03:59: PRN [place] 50 MG / 00 Headache, Caffeine 40 Do not MG Oral exceed 6 Capsule capsules [Fioricet] in 24 hours, X 7 day, # 42 ea, 0 Refill(s) Methocarbam 2016-06 Yes 500 mg = 1 Memoria ol 500 MG 1-20 tab, PO, l Oral Tablet 03:58: Q6H, PRN He rmtc [Robaxin] 00 Spasms, X 7 day, # 28 tab, 0 Refill(s) lidocaine 2016-06 No Route: IV, Me moria 2% 1-20 Dosing l injectable 03:14: Weight Holly nn solution 00 95.455, kg, ONCE, 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/16/17 21:14:00 [employer], Stop date: 05/16/17 21:14:00 [employer], Ketamine 2016-06 No 9.5 mg, Memori a 1-20 Route: l 03:14: IVP, ONCE, [place] 00 Dosing Weight 95.455, kg, Priority: STAT, 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/16/17 21:14:00 [employer], Stop date: 05/16/17 21:14:00 [employer] NS (Bolus) 2016-06 No 1,000 mL, Me moria IV 1-20 1,000 l 03:14: ml/hr, Infuse Over: 1 hr, Route: IV, ONCE, Priority: STAT, Dosing Weight 95.455 kg, 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/16/17 21:14:00 [employer], Stop date: 05/16/17 21:14:00 [employer] Dexamethaso 2016-06 No Notes: Joe peter ne 1-20 dexamethas l 01:27: one 10 [place] 00 mg/1 ml VL INJ PF MEDICATION WASTE Product Size: 10 mg Product Wasted: ___ mg Ketorolac 2016-06 No 4 days Memor ia 1-20 l 01:27: MEDICATION [place] 00 WASTE Product Size: 30 mg Product Wasted: ___ mg Benadryl 2016-06 No Notes: Memoria 1-20 (Same as: l 01:27: Benadryl) [facility] 00 Compazine 2016-06 No Notes: Memori a 1-20 (Same as: l 01:26: Compazine) [facility] 00 NS (Bolus) 2016-06 No 1,000 mL, Me moria IV 1-20 1,000 l 01:26: ml/hr, Infuse Over: 1 hr, Route: IV, 1,000, Drug form: INJ, ONCE, Priority: STAT, Dosing Weight 95.455 kg, 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/16/17 19:26:00 [employer], Stop date: 05/16/17 19:26:00 [employer] Methocarbam 2016-06 Yes 1,000 mg = Memoria ol 500 MG 0-13 2 tab, PO, l Oral Tablet 16:32: QID, PRN He rmann [Robaxin] 00 as needed for muscle spasms, X 7 day, # 56 tab, 0 Refill(s) Acetaminoph 2016-06 No 1 - 2 tab, Memoria en 300 MG / 0-13 PO, Q4H, l Codeine 16:31: PRN Pain, Holly nn Phosphate 00 X 2 day, # 60 MG Oral 20 ea, 0 Tablet Refill(s) [Tylenol with Codeine #4] Metoclopram 2016-06 Yes 10 mg = 1 M emoria james 10 MG 0-13 tab, PO, l Oral Tablet 16:31: QID, PRN He rmann [Reglan] 00 N/V assos. with migraine SANDOVAL, X 7 day, # 28 tab, 0 Refill(s) Diphenhydra 2016-06 Yes 50 mg = 2 M emoria mine 0-13 cap, PO, l Hydrochlori 16:31: Q6H, PRN He rmann de 25 MG 00 to be Oral taken with Capsule reglan for [Benadryl] migraine headache, X 3 day, # 24 cap, 0 Refill(s) Hydromorpho 2016-06 No 1 mg, Memor ia ne 0-13 Route: IV, l 16:19: ONCE, Dosing Weight 89.864, kg, Priority: STAT, Start date: 04/09/17 11:19:00 CDT, Stop date: 04/09/17 11:19:00 CDT Robaxin 2016-06 No Notes: Memoria 0-13 (Same l 14:59: as:Robaxin ) Reglan 2016-06 No Notes: Memoria 0-13 (Same as: l 14:59: Reglan) [place] sodium 2016-06 No 1,000 mL, Memori a chloride 0-13 Rate: l 0.9% 1000 14:59: 1,000 [facility] ml INJ 00 ml/hr, 1,000 mL Infuse over: 1 hr, Route: IV, Dosing Weight 89.864 kg, Total Volume: 1,000, Start date: 04/09/17 9:59:00 CDT, Duration: 1 doses or times, Stop date: 04/09/17 10:58:00 CDT, Bolus Dose Dexamethaso 2016-06 No Notes: Joe peter ne 0- dexamethas l 14:59: one 10 [facility] 00 mg/1 ml VL INJ PF MEDICATION WASTE Product Size: 10 mg Product Wasted: ___ mg Hydromorpho 2016-06 No Notes: Joe peter ne 0- Same as l 14:59: Dilaudid [place] 00 Benadryl 2016-06 No Notes: Memoria 0 (Same as: l 14:59: Benadryl) [place] 00 Acetaminoph No 1 tab, Joe peter en 325 MG / 01-20 Route: PO, l Hydrocodone 06:35: Drug Form: [facility] Bitartrate 00 TAB, 7.5 MG Oral Dosing Tablet Weight [[place] 85.966, 7.5/325] kg, ONCE, STAT, Start date: 01/20/17 1:35:00 CDT, Stop date: 01/20/17 1:35:00 CDT Reglan No Notes: [facility] 01-20 (Same as: l 02:33: Reglan) [facility] Benadryl No Notes: [facility] 01-20 (Same as: l 02:33: Benadryl) [facility] 00 Hydromorpho No Notes: Joe peter ne 01-20 Same as: l 02:33: Dilaudid [place] Saline No Notes: [facility] Flush 0.9% 01-20 (Same as: l 02:33: BD [facility] 00 Posiflush) Sodium No 1,000 mL, Memori a Chloride 01-20 1000 l 0.9% 02:33: ml/hr, [place] (Bolus) IV 00 Infuse Over: 1 hr, Route: IV, 1,000, Drug form: INJ, ONCE, Priority: STAT, Dosing Weight 85.966 kg, Start date: 01/19/17 21:33:00 CDT, Duration: 1 doses or times, Stop date: 01/19/17 21:33:00 CDT Acetaminoph No 2 tab, Joe peter en 325 MG / 14 Route: PO, l Hydrocodone 23:02: Dosing Herm tc Bitartrate 00 Weight 5 MG Oral 85.142, Tablet kg, ONCE, [[place] Start ] date: 01/08/17 18:02:00 CDT, Stop date: 01/08/17 18:02:00 CDT Diphenhydra Yes 50 mg = 2 M emoria mine 7-14 cap, PO, l Hydrochlori 22:52: Q6H, PRN He rmann de 25 MG 00 to be Oral taken with Capsule reglan for [Benadryl] migraine headache, X 3 day, # 24 cap, 0 Refill(s) Metoclopram Yes 10 mg = 1 M emoria james 10 MG -14 tab, PO, l Oral Tablet 22:51: QID, PRN He rmann [Reglan] 00 N/V assos. with migraine SANDOVAL, X 7 day, # 28 tab, 0 Refill(s) 12 HR Yes 100 mg = 1 Memori a Orphenadrin 7-14 tab, PO, l e Citrate 22:51: BID, X 10 Her davila 100 MG 00 day, # 20 Extended tab, 0 Release Refill(s) Tablet Acetaminoph No 1 - 2 tab, Memoria en 300 MG / -14 PO, Q4H, l Codeine 22:51: PRN Pain, Holly nn Phosphate 00 X 2 day, # 60 MG Oral 20 ea, 0 Tablet Refill(s) [Tylenol with Codeine #4] Sodium No 1,000 mL, Memori a Chloride -14 Rate: l 0.9% IV 21:10: 1,000 [place] 1000 mL 00 ml/hr, Infuse over: 1 hr, Route: IV, Dosing Weight 85.142 kg, Total Volume: 1,000, Start date: 01/08/17 16:10:00 CDT, Duration: 1 doses or times, Stop date: 01/08/17 17:09:00 CDT, Bolus Dose Reglan No Notes: Memoria 7- (Same as: l 20:02: Reglan) [facility] Dexamethaso No Notes: Joe peter ne 01-08 dexamethas l 20:01: one 10 [facility] 00 mg/1 ml VL INJ PF MEDICATION WASTE Product Size: 10 mg Product Wasted: ___ mg Hydromorpho No Notes: Joe peter ne 01-08 Same as: l 20:01: Dilaudid [place] Benadryl No Notes: [facility]oria 01-08 (Same as: l 20:01: Benadryl) [place] sodium No 1,000 mL, Memori a chloride 01-08 Rate: l 0.9% 1000 20:01: 1,000 [place] ml INJ 00 ml/hr, 1,000 mL Infuse over: 1 hr, Route: IV, Dosing Weight 85.142 kg, Total Volume: 1,000, Start date: 01/08/17 15:01:00 CDT, Duration: 1 doses or times, Stop date: 01/08/17 16:00:00 CDT, [facility] Dose Orphenadrin No 60 mg, 2 Me moria e 7-14 mL, Route: l 20:01: IM, Drug form: INJ, ONCE, Dosing Weight 85.142, kg, Priority: STAT, Start date: 01/08/17 15:01:00 CDT, Stop date: 01/08/17 15:01:00 CDT Ketorolac No 4 days [facility] ia 3- l 23:00: MEDICATION [facility] WASTE Product Size: 30 mg Product Wasted: ___ mg Reglan No Notes: [facility] - (Same as: l 23:00: Reglan) [place] Acetaminoph No Notes: Joe peter en 325 MG / 09-20 (Same as: l Hydrocodone 22:34: [place] Holly nn Bitartrate 00 325/5) Do 5 MG Oral not exceed Tablet 4gm/day of [[place] acetaminop 5/325] hen. Hydromorpho No Notes: Joe peter ne 3-26 Same as l 21:47: Dilaudid sodium No 1,000 mL, Memori a chloride 09-20 Rate: l 0.9% 1000 21:47: 1,000 [facility] ml INJ 00 ml/hr, 1,000 mL Infuse over: 1 hr, Route: IV, Dosing Weight 78.008 kg, Total Volume: 1,000, Start date: 09/20/16 16:47:00 CDT, Duration: 1 doses or times, Stop date: 09/20/16 17:46:00 CDT, Bolus Dose Benadryl No Notes: Memoria 3-26 (Same as: l 21:47: Benadryl) Reglan No Notes: Memoria 3-26 (Same as: l 21:47: Reglan) Dexamethaso No 10 mg, 2.5 Memoria ne 3-26 mL, Route: l 21:47: IV, Drug form: INJ, ONCE, Dosing Weight 78.008, kg, Priority: STAT, Start date: 09/20/16 16:47:00 CDT, Stop date: 09/20/16 16:47:00 CDT Dilaudid 2015-06 No 1 mg, Memoria 2-10 Route: IM, l 17:25: ONCE, Dosing Weight 73.8, kg, Start date: 06/06/16 11:25:00 [employer], Stop date: 06/06/16 11:25:00 [employer] Acetaminoph 2015-06 Yes 1-2 tab, Me moria en 325 MG / 2-10 PO, Q4-6H, l Hydrocodone 03:47: PRN Pain, H ermann Bitartrate 00 X 5 day, # 10 MG Oral 15 tab, 0 Tablet Refill(s) [[place] 10/325] Morphine 2015-06 No 4 mg, Memoria 2-10 Route: IM, l 02:59: ONCE, Dosing Weight 73, kg, Priority: STAT, Start date: 06/05/16 20:59:00 [employer], Stop date: 06/05/16 20:59:00 [employer] Acetaminoph 2015-06 No 1 tab, Joe peter en 325 MG / 2-10 Route: PO, l Hydrocodone 01:53: Drug Form: [place] Bitartrate 00 TAB, 10 MG Oral Dosing Tablet Weight 73, [[place] kg, ONCE, 10/325] STAT, Start date: 06/05/16 19:53:00 [employer], Stop date: 06/05/16 19:53:00 [employer] Acetaminoph 2015-06 No 2 tab, Joe peter en 325 MG / -17 Route: PO, l Hydrocodone 18:27: Drug Form: [place] Bitartrate 00 TAB, 5 MG Oral Dosing Tablet Weight [[place] 66.364, 5/325] kg, ONCE, STAT, 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/14/16 12:27:00 [employer], Stop date: 05/14/16 12:27:00 [employer]OR [employer] Dihydroergo 2015-06 No Notes: Joe peter tamine -17 (Same as: l 16:54: D.H.E. 45) [place] Benadryl 2015-06 No 25 mg, Memoria 17 Route: l 16:54: IVP, ONCE, [place] 00 Dosing Weight 66.364, kg, Priority: STAT, 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/14/16 10:54:00 [employer], Stop date: 05/14/16 10:54:00 [employer] Sodium 2015-06 No 1,000 mL, Memori a Chloride -17 1,000 l 0.154 16:54: ml/hr, [place] MEQ/ML 00 Infuse Injectable Over: 1 Solution hr, Route: IV, ONCE, Priority: STAT, Dosing Weight 66.364 kg, 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/14/16 10:54:00 [employer], Duration: 1 doses or times, Stop date: 05/14/16 10:54:00 SUPER[employer]OR [employer] Reglan 2015-06 No 10 mg, Memoria 1-17 Route: l 16:53: IVP, Drug [facility] 00 form: INJ, ONCE, Dosing Weight 66.364, kg, Priority: STAT, 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/14/16 10:53:00 [employer], Stop date: 05/14/16 10:53:00 [employer]PER[employer] Ketorolac 2015-06 No 4 days Memor ia 1-17 l 16:53: MEDICATION [facility] WASTE Product Size: 30 mg Product Wasted: ___ mg Dexamethaso 2015-06 No 10 mg, Joe peter ne 07-14 Route: l 16:53: IVP, ONCE, Dosing Weight 66.364, kg, Priority: STAT, 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/14/16 10:53:00 [employer], Stop date: 05/14/16 10:53:00 [employer] Miralax 2014-06 No Notes: Memoria - Dissolve l 23:00: in 8 oz of water or juice. (Same as: Miralax) Flagyl 2014-06 No Notes: Memoria - (Same as: l 21:00: Flagyl) Avoid alcohol. Cipro 2014-06 No Notes: Do Memoria - not l 20:00: refrigerat e Metronidazo 2014-06 Yes 500 mg = 1 Memoria le 500 MG - tab, PO, l Oral Tablet 19:09: Q8H, X 5 He rmann [Flagyl] day, # 15 tab, 0 Refill(s) Ciprofloxac 2014-06 Yes 500 mg = 1 Memoria in 500 MG - tab, PO, l Oral Tablet 19:09: Q12H, X 5 H ermann [Cipro] day, # 10 tab, 0 Refill(s) Acetaminoph 2014-06 Yes 1 tab, PO, Memoria en 300 MG / - Q6H, PRN l butalbital 18:35: Headache Her davila 50 MG / 00 07-02, # 30 Caffeine 40 tab, 0 MG Oral Refill(s) Capsule [Fioricet] Coreg 2014-06 No Notes: Memoria - Give with l 18:34: food. (Same As: Coreg) Citalopram 2014-06 No Notes: Memor ia - (Same As: l 15:00: CeleXA) Alprazolam 2014-06 No Notes: Memor ia 1 MG Oral 06-29 With food l Tablet 15:00: or milk [Xanax] (Same as: Xanax) Lisinopril 2014-06 No Notes: Memor ia - (Same as: l 15:00: Prinivil, [place] 00 Zestril) Furosemide 2014-06 No Notes: Memor ia 20 MG Oral 06-29 (Same as: l Tablet 15:00: Lasix) May Holly nn 00 cause GI upset. Give with food or milk. BD Normal 2014-06 No Notes: Memori a Saline 06-29 (Same as: l Flush 12:10: BD [place] 00 Posiflush) Phenergan 2014-06 No Notes: Do Mem oria 06-29 not give l 08:57: IV push. [place] 00 (Same as: Phenergan) Trazodone 2014-06 No Notes: Memori a Hydrochlori 06-29 (Same As: l de 50 MG 03:00: Desyrel) Holly nn Oral Tablet 00 gabapentin 2014-06 No Notes: Memor ia 400 MG Oral 06-28 (Same as: l Capsule 19:00: Neurontin) Herm tc 00 Xanax 2014-06 No Notes: Memoria 06-28 With food l 18:38: or milk Sol[facility] 00 (Same as: Xanax) Alprazolam 2014-06 No Notes: Memor ia 1 MG Oral 06-28 With food l Tablet 17:55: or milk [facility] [Xanax] 00 (Same as: Xanax) Acetaminoph 2014-06 No Notes: Joe peter en 300 MG / 06-28 (acetamino l butalbital 17:52: phen-butal H ermann 50 MG / 00 bital-caff Caffeine 40 eine MG Oral 325-50-40m Capsule g) Do not [Fioricet] exceed 4 gm/day of acetaminop hen. (Same as: Esgic, Fioricet) ketOROLAC 2014-06 No 4 days Memor ia 30 mg/mL 06-28 l injectable 17:39: MEDICATION H ermann solution 00 WASTE Product Size: 30 mg Product Wasted: ___ mg NS + KCL 2014-06 No Notes: Memoria 40mEq/L 06-28 PREMIX IV l 1000ml 17:38: - Do Not [place] (Premix) 00 Alter 1,000 mL Zosyn 2014-06 No Notes: Memoria 06-28 Infuse l 15:00: over 4 [place] 00 hours. (same as: Zosyn) ketOROLAC 2014-06 No 4 days Memor ia 15 mg/mL 0-31 l injectable 23:08: MEDICATION H ermann solution 00 WASTE Product Size: 30 mg Product Wasted: ___ mg Acetaminoph 2014-06 No Notes: Joe peter en 0-31 Infuse l 23:08: over 15 [place] 00 minutes Do not exceed 4gm/day of acetaminop hen MEDICATION WASTE Product Size: 1000 mg Product Wasted: ___ mg Zosyn 2014-06 No Notes: Memoria 0-31 Infuse l 23:00: over 4 [place] 00 hours. (same as: Zosyn) Hydralazine 2014-06 No Notes: Joe peter 0-31 (Same as: l 22:20: Apresoline Solit[facility] 00 ) Push over 5 minutes Acetaminoph 2014-06 No Notes: Max Memoria en 0-31 acetaminop l 22:20: hen = 4000 [place] 00 mg/day (4 gm/day). (Same as: Tylenol) Zofran 2014-06 No Notes: Memoria 0-31 (Same as: l 22:19: Zofran) [place] 00 MEDICATION WASTE Product Size: 4 mg Product Wasted: ___ mg Dilaudid 2014-06 No Notes: Memoria 0-31 (Same as: l 22:19: Dilaudid) Sol[facility] 00 NS + KCL 2014-06 No Notes: Memoria 40mEq/L 0-31 PREMIX IV l 1000ml 22:17: - Do Not [facility] (Premix) 00 Alter 1,000 mL baclofen 10 2014-06 Yes 10 mg = 1 M emoria mg oral 0-31 tab, PO, l tablet 22:16: TID, PRN [place] 00 Spasms, # 90 tab, 0 Refill(s) influenza 2014-06 No 0.5 mL, Memor ia virus 0-31 Route: IM, l vaccine, 21:19: ONCALLBill n inactivated 45 Start date: 04/27/15 16:19:45, Stop date: 05/27/15 16:14:45 Promethazin 2014-06 Yes 25 mg = 1 M emoria e 0-31 tab, PO, l Hydrochlori 21:14: Q6H, PRN He rmann de 25 MG 00 Nausea, # Oral Tablet 15 tab, 0 [Phenergan] Refill(s) Melatonin 2014-06 Yes 10 mg = 1 Mem oria 10 mg oral 0-31 cap, PO, l capsule 21:14: Bedtime, Bill n 00 PRN Sleep, 0 Refill(s) Furosemide 2014-06 Yes 20 mg = 1 Me moria 20 MG Oral 0-31 tab, PO, l Tablet 21:14: Daily, # [place] 00 30 tab, 0 Refill(s) Metoclopram 2014-06 Yes 10 mg = 1 M emoria james 10 MG 0-31 tab, PO, l Oral Tablet 21:14: Q6H, PRN He rmann 00 headache, # 56 tab, 0 Refill(s) Dilaudid 2014-06 No 1 mg, Memoria 0-31 Route: l 20:39: IVP, ONCE, Dosing Weight 74.091, kg, Priority: STAT, Start date: 04/27/15 15:39:00, Stop date: 04/27/15 15:39:00 Phenergan 2014-06 No 25 mg, Memori a 0-31 Route: IM, l 19:29: ONCE, Dosing Weight 74.091, kg, Start date: 04/27/15 14:29:00, Stop date: 04/27/15 14:29:00 Ondansetron 2014-06 No 4 mg, Memor ia 0- Route: l 19:29: IVP, ONCE, Dosing Weight 74.091, kg, Priority: STAT, Start date: 04/27/15 14:29:00, Stop date: 04/27/15 14:29:00 Potassium 2014-06 No Notes: Memori a Chloride 20 0-31 (Same as: l MEQ 17:19: K-Dur 20) "Do Not Release Crush" Tablet With food and full glass of water Hydromorpho 2014-06 No 1 mg, Memor ia ne 0-31 Route: l 16:30: IVP, ONCE, Dosing Weight 74.091, kg, Priority: STAT, Start date: 04/27/15 11:30:00, Stop date: 04/27/15 11:30:00 Ondansetron 2014-06 No 4 mg, Memor ia 0-31 Route: l 15:34: IVP, ONCE, [place] 00 Dosing Weight 74.091, kg, Priority: STAT, Start date: 04/27/15 10:34:00, Stop date: 04/27/15 10:34:00 Saline 2014-06 No Notes: Memoria Flush 0.9% 0-31 (Same as: l 15:34: BD Sol[facility] 00 Posiflush) Sodium 2014-06 No 1,000 mL, Memori a Chloride 0-31 Infuse l 0.154 15:34: Over: 1 [place] MEQ/ML 00 hr, Route: Injectable IV, ONCE, Solution Priority: STAT, Dosing Weight 74.091 kg, Start date: 04/27/15 10:34:00, Duration: 1 doses or times, Stop date: 04/27/15 10:34:00 Sulfamethox Yes 1 tab, PO, Memoria azole 800 7-05 BID, X 7 l MG / 21:51: day, # 14 [place] Trimethopri 00 tab, 0 m 160 MG Refill(s), Oral Tablet Pharmacy: [Bactrim] [facility] [id number] Furosemide Yes 20 mg = 1 Me moria 20 MG Oral 4-27 tab, PO, l Tablet 17:40: Daily, # 3 Holly nn [Lasix] 00 tab, 0 Refill(s), Pharmacy: [facility] [id number] Reglan No 10 mg, Memoria 4- Route: l 16:30: IVP, Drug [place] 00 form: INJ, ONCE, Dosing Weight 83.682, kg, Priority: STAT, Start date: 10/22/14 11:30:00, Stop date: 10/22/14 11:30:00 Saline No 10 mL, Memoria Flush 0.9% 10-22 Route: l 16:29: IVP, Drug [place] 00 Form: INJ, Dosing Weight 83.682, kg, PRN, PRN Line Flush, Start date: 10/22/14 11:29:00, Duration: 30 day, Stop date: 11/21/14 11:28:00 Alprazolam 2015-0 No Notes: Memor ia 1 MG Oral 23 With food l Tablet 06:36: or milk [facility] [Xanax] 00 (Same as: Xanax) Sodium 2015- No 1,000 mL, Memori a Chloride 23 1,000 l 0.154 04:42: ml/hr, [facility] MEQ/ML 00 Infuse Injectable Over: 1 Solution hr, Route: IV, 1,000, Drug form: INJ, ONCE, Priority: STAT, Dosing Weight 84.545 kg, Start date: 07/19/14 22:42:00, Duration: 1 doses or times, Stop date: 07/19/14 22:42:00 Immunizations Ordered Immunization Filled Immunization Date Status Commen ts Source Name Name influenza virus 2015-04-27 Completed [facility] vaccine, inactivated 23:11:00 Sergio montez tetanus-diphtheria 2011-02-14 Completed [facility] toxoids 07:17:00 [facility] tetanus-diphtheria 2011-02-14 Completed [facility] toxoids 07:17:00 [facility] Vital Signs Vital Name Observation Time Observation Value Comments Source Systolic blood 2021-11-12 23:33:00 152 [facility]Hg[facility] 2021-11-12 23:33:00 97 mm[Hg] Un[facility] Heart rate 2021-11-12 23:33:00 64 /min [facility] Body temperature 2021-11-12 21:56:00 37.06 [place] [facility] Respiratory rate 2021-11-12 21:56:00 18 /min [facility] Oxygen saturation in 2021-11-12 21:56:00 100 /min [facility] Arterial blood by [facility] Pulse oximetry [place] Body weight 2021-11-12 08:09:00 57.97 kg [facility] BMI 2021-11-12 08:09:00 21.27 kg/m2 [facility] Body height 2021-11-11 03:04:00 165.1 cm [facility] Systolic (mm Hg) 2020-11-27 20:27:00 Joe rial [facility] Diastolic (mm Hg) 2020-11-27 20:27:00 Mem orial [facility] Heart Rate 2020-11-27 20:27:00 [facility] Temperature Oral (F) 2020-11-27 20:27:00 98.2 F [facility] Height 2020-11-27 20:27:00 166.37 cm [facility] [place] Weight 2020-11-27 20:27:00 [facility] BMI Calculated 2020-11-27 20:27:00 Memori al [place] Systolic (mm Hg) 2018-02-10 00:00:00 Joe rial [place] Diastolic (mm Hg) 2018-02-10 00:00:00 Mem orial [place] Temperature Oral (F) 2018-02-10 00:00:00 97.7 F [facility] Heart Rate 2018-02-10 00:00:00 [facility] [place] Respitory Rate 2018-02-10 00:00:00 Memori al [place] Systolic (mm Hg) 2018-02-09 23:02:00 Joe rial [facility] Diastolic (mm Hg) 2018-02-09 23:02:00 Mem orial [facility] Respitory Rate 2018-02-09 23:02:00 Mem[facility] al [facility] Heart Rate 2018-02-09 23:02:00 [facility] Systolic (mm Hg) 2018-02-09 21:54:00 Joe rial [facility] Diastolic (mm Hg) 2018-02-09 21:54:00 Mem orial [place] Respitory Rate 2018-02-09 21:54:00 Memori al [facility] Heart Rate 2018-02-09 21:54:00 [facility] [place] BMI Calculated 2018-02-09 16:42:00 [facility] al [place] Weight 2018-02-09 16:42:00 [facility] [place] Height 2018-02-09 16:42:00 165.1 cm [facility] [place] Temperature Oral (F) 2018-02-09 16:42:00 97.9 F [facility] [place] Respitory Rate 2018-01-25 18:15:00 Memori al [facility] Heart Rate 2018-01-25 18:15:00 [facility] Systolic (mm Hg) 2018-01-25 18:15:00 Joe rial [place] Diastolic (mm Hg) 2018-01-25 18:15:00 Mem orial [place] Temperature Oral (F) 2018-01-25 18:15:00 97.8 F [facility] Weight 2018-01-25 14:34:00 [facility] [place] BMI Calculated 2018-01-25 14:34:00 Mem[facility] al [facility] Height 2018-01-25 14:34:00 165.1 cm [facility] [place] Systolic (mm Hg) 2018-01-25 14:34:00 Joe rial [facility] Diastolic (mm Hg) 2018-01-25 14:34:00 Mem orial [facility] Temperature Oral (F) 2018-01-25 14:34:00 98.5 F [facility] Respitory Rate 2018-01-25 14:34:00 [facility] al [place] Heart Rate 2018-01-25 14:34:00 [facility] [place] Respitory Rate 2017-11-01 20:18:00 [facility] [place] Heart Rate 2017-11-01 20:18:00 [facility] Systolic (mm Hg) 2017-11-01 20:18:00 Joe rial [facility] Diastolic (mm Hg) 2017-11-01 20:18:00 Mem orial [facility] Temperature Oral (F) 2017-11-01 20:18:00 98.1 F [facility] Temperature Oral (F) 2017-11-01 19:43:00 98.1 F [facility] Respitory Rate 2017-11-01 19:43:00 [facility] al [facility] Heart Rate 2017-11-01 19:43:00 [facility] Systolic (mm Hg) 2017-11-01 19:43:00 Joe rial [facility] Diastolic (mm Hg) 2017-11-01 19:43:00 Mem orial [facility] Temperature Oral (F) 2017-11-01 16:46:00 97.7 F [facility] Height 2017-11-01 16:46:00 165.1 cm [facility] Weight 2017-11-01 16:46:00 [facility] [place] BMI Calculated 2017-11-01 16:46:00 Memori al [place] Systolic (mm Hg) 2017-11-01 16:46:00 Joe rial [facility] Diastolic (mm Hg) 2017-11-01 16:46:00 Mem orial [facility] Respitory Rate 2017-11-01 16:46:00 [facility] al [facility] Heart Rate 2017-11-01 16:46:00 [facility] Systolic (mm Hg) 2017-05-17 03:55:00 Joe rial [facility] Diastolic (mm Hg) 2017-05-17 03:55:00 Mem orial [place] Heart Rate 2017-05-17 03:55:00 [facility] Respitory Rate 2017-05-17 03:55:00 Mem[facility] al [facility] Temperature Oral (F) 2017-05-17 03:55:00 98.6 F [facility] Weight 2017-05-17 00:51:00 [facility] Temperature Oral (F) 2017-05-17 00:51:00 98.5 F [facility] [place] Heart Rate 2017-05-17 00:51:00 [facility] Respitory Rate 2017-05-17 00:51:00 Memori al [facility] Systolic (mm Hg) 2017-05-17 00:51:00 Joe rial [place] Diastolic (mm Hg) 2017-05-17 00:51:00 Mem orial [place] Heart Rate 2017-04-09 16:02:00 [facility] [place] Systolic (mm Hg) 2017-04-09 16:02:00 Joe rial [facility] Diastolic (mm Hg) 2017-04-09 16:02:00 Mem orial [place] Respitory Rate 2017-04-09 16:02:00 [facility] al [place] Weight 2017-04-09 14:43:00 [facility] [place] BMI Calculated 2017-04-09 14:43:00 [facility] [place] Height 2017-04-09 14:43:00 165.1 cm [facility] [place] Temperature Oral (F) 2017-04-09 14:43:00 97.9 F [facility] [place] Systolic (mm Hg) 2017-04-09 14:43:00 Joe rial [facility] Diastolic (mm Hg) 2017-04-09 14:43:00 Mem orial [facility] Respitory Rate 2017-04-09 14:43:00 Mem[facility] al [facility] Heart Rate 2017-04-09 14:43:00 [facility] [place] Heart Rate 2017-01-20 06:46:00 [facility] Respitory Rate 2017-01-20 06:46:00 [facility] al [place] Temperature Oral (F) 2017-01-20 06:46:00 97.9 F [facility] Systolic (mm Hg) 2017-01-20 06:46:00 [facility] Diastolic (mm Hg) 2017-01-20 06:46:00 [facility] Temperature Oral (F) 2017-01-20 05:49:00 98.0 F [facility] Respitory Rate 2017-01-20 05:49:00 [facility] Systolic (mm Hg) 2017-01-20 05:49:00 [facility] Diastolic (mm Hg) 2017-01-20 05:49:00 [facility] Heart Rate 2017-01-20 05:49:00 [facility] Systolic (mm Hg) 2017-01-20 03:00:00 [facility] Diastolic (mm Hg) 2017-01-20 03:00:00 [facility] Respitory Rate 2017-01-20 03:00:00 [facility] Heart Rate 2017-01-20 03:00:00 [facility] Height 2017-01-20 00:47:00 165.1 cm [facility] BMI Calculated 2017-01-20 00:47:00 [facility] Weight 2017-01-20 00:47:00 [facility] Temperature Oral (F) 2017-01-20 00:47:00 98.2 F [facility] Temperature Oral (F) 2017-01-08 23:12:00 98 F [facility] Heart Rate 2017-01-08 23:12:00 [facility] Respitory Rate 2017-01-08 23:12:00 [facility] Systolic (mm Hg) 2017-01-08 23:12:00 [facility] Diastolic (mm Hg) 2017-01-08 23:12:00 [facility] BMI Calculated 2017-01-08 19:43:00 [facility] Weight 2017-01-08 19:43:00 [facility] Height 2017-01-08 19:43:00 165.1 cm [facility] Respitory Rate 2017-01-08 19:43:00 [facility] Temperature Oral (F) 2017-01-08 19:43:00 98.1 F [facility] Heart Rate 2017-01-08 19:43:00 [facility] Systolic (mm Hg) 2017-01-08 19:43:00 [facility] Diastolic (mm Hg) 2017-01-08 19:43:00 [facility] Temperature Oral (F) 2016-09-20 23:48:00 98.0 F [facility] Respitory Rate 2016-09-20 23:48:00 [facility] Heart Rate 2016-09-20 23:48:00 [facility] Systolic (mm Hg) 2016-09-20 23:48:00 [facility] Diastolic (mm Hg) 2016-09-20 23:48:00 [facility] Weight 2016-09-20 21:13:00 [facility] BMI Calculated 2016-09-20 21:13:00 [facility] Height 2016-09-20 21:13:00 165.1 cm [facility] Temperature Oral (F) 2016-09-20 21:13:00 98.1 F [facility] Respitory Rate 2016-09-20 21:13:00 [facility] Heart Rate 2016-09-20 21:13:00 [facility] Systolic (mm Hg) 2016-09-20 21:13:00 [facility] Diastolic (mm Hg) 2016-09-20 21:13:00 [facility] Systolic (mm Hg) 2016-06-06 19:15:00 [facility] Diastolic (mm Hg) 2016-06-06 19:15:00 [facility] Respitory Rate 2016-06-06 19:15:00 [facility] Temperature Oral (F) 2016-06-06 19:15:00 98.0 F [facility] Heart Rate 2016-06-06 19:15:00 [facility] Systolic (mm Hg) 2016-06-06 17:19:00 [facility] Diastolic (mm Hg) 2016-06-06 17:19:00 [facility] Heart Rate 2016-06-06 17:19:00 [facility] Respitory Rate 2016-06-06 17:19:00 [facility] Weight 2016-06-06 17:19:00 [facility] Temperature Oral (F) 2016-06-06 17:19:00 98.0 F [facility] Heart Rate 2016-06-06 04:00:00 [facility] Respitory Rate 2016-06-06 04:00:00 [facility] Temperature Oral (F) 2016-06-06 04:00:00 98.1 F [facility] Systolic (mm Hg) 2016-06-06 04:00:00 [facility] Diastolic (mm Hg) 2016-06-06 04:00:00 [facility] Respitory Rate 2016-06-06 02:33:00 [facility] Systolic (mm Hg) 2016-06-06 02:33:00 [facility] Diastolic (mm Hg) 2016-06-06 02:33:00 [facility] Heart Rate 2016-06-06 02:33:00 [facility] Weight 2016-06-06 01:33:00 [facility] Temperature Oral (F) 2016-06-06 01:33:00 98.1 F [facility] Respitory Rate 2016-06-06 01:33:00 [facility] Heart Rate 2016-06-06 01:33:00 [facility] Systolic (mm Hg) 2016-06-06 01:33:00 [facility] Diastolic (mm Hg) 2016-06-06 01:33:00 [facility] Respitory Rate 2016-05-14 19:00:00 [facility] Systolic (mm Hg) 2016-05-14 19:00:00 [facility] [place] Diastolic (mm Hg) 2016-05-14 19:00:00 [facility] Heart Rate 2016-05-14 19:00:00 [facility] BMI Calculated 2016-05-14 16:16:00 [facility] Weight 2016-05-14 16:16:00 [facility] Systolic (mm Hg) 2016-05-14 16:16:00 [facility] Diastolic (mm Hg) 2016-05-14 16:16:00 [facility] Height 2016-05-14 16:16:00 165.1 cm [facility] Respitory Rate 2016-05-14 16:16:00 [facility] Heart Rate 2016-05-14 16:16:00 [facility] Temperature Oral (F) 2016-05-14 16:16:00 99.0 F [facility] Temperature Oral (F) 2015-04-29 22:15:00 98.6 F [facility] Heart Rate 2015-04-29 22:15:00 [facility] Respitory Rate 2015-04-29 22:15:00 [facility] Systolic (mm Hg) 2015-04-29 22:15:00 [facility] Diastolic (mm Hg) 2015-04-29 22:15:00 [facility] Heart Rate 2015-04-29 18:35:00 [facility] Respitory Rate 2015-04-29 18:35:00 [facility] Temperature Oral (F) 2015-04-29 18:35:00 98.6 F [facility] Systolic (mm Hg) 2015-04-29 18:35:00 [facility] Diastolic (mm Hg) 2015-04-29 18:35:00 [facility] Temperature Oral (F) 2015-04-29 14:31:00 99.6 F [facility] Systolic (mm Hg) 2015-04-29 14:31:00 [facility] Diastolic (mm Hg) 2015-04-29 14:31:00 [facility] Respitory Rate 2015-04-29 14:31:00 [facility] Heart Rate 2015-04-29 14:31:00 [facility] Weight 2015-04-27 21:05:00 [facility] BMI Calculated 2015-04-27 21:05:00 [facility] Height 2015-04-27 21:05:00 165.1 cm [facility] Weight 2015-04-27 15:23:00 [facility] Respitory Rate 2014-12-30 22:10:00 [facility] Systolic (mm Hg) 2014-12-30 22:10:00 [facility] Diastolic (mm Hg) 2014-12-30 22:10:00 [facility] Heart Rate 2014-12-30 22:10:00 [facility] BMI Calculated 2014-12-30 21:24:00 [facility] Weight 2014-12-30 21:24:00 [facility] Temperature Oral (F) 2014-12-30 21:24:00 98.1 F [facility] Respitory Rate 2014-12-30 21:24:00 [facility] Height 2014-12-30 21:24:00 165.1 cm [facility] Heart Rate 2014-12-30 21:24:00 [facility] Systolic (mm Hg) 2014-12-30 21:24:00 [facility] Diastolic (mm Hg) 2014-12-30 21:24:00 [facility] Heart Rate 2014-10-22 17:57:00 [facility] Systolic (mm Hg) 2014-10-22 17:57:00 [facility] Diastolic (mm Hg) 2014-10-22 17:57:00 [facility] Respitory Rate 2014-10-22 17:57:00 [facility] Weight 2014-10-22 16:22:00 [facility] Temperature Oral (F) 2014-10-22 16:22:00 97.7 F [facility] Respitory Rate 2014-10-22 16:22:00 [facility] Heart Rate 2014-10-22 16:22:00 [facility] Systolic (mm Hg) 2014-10-22 16:22:00 [facility] [place] Diastolic (mm Hg) 2014-10-22 16:22:00 [facility] Heart Rate 2014-07-20 06:50:00 [facility] Respitory Rate 2014-07-20 06:50:00 [facility] Temperature Oral (F) 2014-07-20 06:50:00 97.9 F [facility] Systolic (mm Hg) 2014-07-20 06:50:00 [facility] Diastolic (mm Hg) 2014-07-20 06:50:00 [facility] Heart Rate 2014-07-20 04:14:00 [facility] Respitory Rate 2014-07-20 04:14:00 [facility] Temperature Oral (F) 2014-07-20 04:14:00 98.3 F [facility] Systolic (mm Hg) 2014-07-20 04:14:00 [facility] Diastolic (mm Hg) 2014-07-20 04:14:00 [facility] Weight 2014-07-20 04:14:00 [facility] Procedures Procedure Date / Time Performing Source Performed Clinician TROPONIN I 2021-11-12 Earnestine Oneal [place] of 09:12:00 [facility] COMP. METABOLIC PANEL (11664) 2021-11-12 Ny Carreon iversity of 09:12:00 [facility] CBC WITH DIFF 2021-11-12 Ny Carreon [place] of 09:12:00 [facility] ACUTE CARE VENOUS BLOOD GAS 2021-11-11 Ny Carreon [facility] ersity of 10:26:00 [facility] PHOSPHORUS 2021-11-11 Lauri, [facility] of 10:07:00 [facility] CREATINE KINASE 2021-11-11 Lauri, [facility] of 10:07:00 [facility] MAGNESIUM 2021-11-11 Lauri, [facility] of 10:07:00 [facility] VITAMIN B12, LEVEL 2021-11-11 Lauri, [facility] of 10:07:00 [facility] C-REACTIVE PROTEIN 2021-11-11 Lauri, [facility] of 10:07:00 [facility] TROPONIN I 2021-11-11 Lauri, [facility] of 10:07:00 [facility] COMP. METABOLIC PANEL ([id number]) 2021-11-11 Ny Carreon iversity of 10:07:00 [facility] SEDIMENTATION RATE 2021-11-11 Lauri, [facility] of 10:07:00 [facility] CBC WITH DIFF 2021-11-11 Lauri, [facility] of 10:07:00 [facility] N-TERMINAL PRO-BNP 2021-11-11 Lauri, [facility] of 10:07:00 [facility] VITAMIN D, 25-OH 2021-11-11 Lauri, [facility] of 10:07:00 [facility] PROCALCITONIN 2021-11-11 Lauri, [facility] of 10:07:00 [facility] URINE DRUG (IMMUNOASSAY) - 2021-11-11 Mala Suazo [facility] ersity of COMPREHENSIVE DRUG SCREEN 01:51:00 [facility] URINALYSIS 2021-11-11 Mala Suazo [place] of 01:51:00 [facility] BLOOD CULTURE SCREEN 2021-11-11 Mala Suazo [place] of 01:38:00 [facility] LACTIC ACID WHOLE BLOOD 2021-11-11 Mala Suazo [facility] ity of 01:38:00 [facility] HB ECG ROUTINE & RHYTHM STRIP 2021-11-11 Mala Suazo [facility]iversity of 01:03:[address] [facility] [address] ABDOMEN PELVIS W CONTRAST 2021-11-11 Mala Suazo Un iversity of 00:36:00 [facility] PHOSPHORUS 2021-11-11 Lauri, [facility] of 00:02:00 [facility] URIC ACID 2021-11-11 yN Carreon of 00:02:00 [facility] AMYLASE 2021-11-11 Ny Carreon [place] of 00:02:00 [facility] LIPASE 2021-11-11 Mala Suazo [place] of 00:02:00 [facility] MAGNESIUM 2021-11-11 Ny Carreon [place] of 00:02:00 [facility] FERRITIN SERUM 2021-11-11 Ny Carreon [place] of 00:02:00 [facility] TROPONIN I 2021-11-11 Mala Suazo [place] of 00:02:00 [facility] THYROID STIMULATING HORMONE 2021-11-11 Ny Carreon [facility] ersity of 00:02:00 [facility] COMP. METABOLIC PANEL (74283) 2021-11-11 Mala Suazo niversity of 00:02:00 [facility] LIPID PANEL (13936)(TOTAL 2021-11-[address] [facility] sity of CHOLESTEROL, TRIGLYCERIDES, HDL) 00:02:00 [facility] IRON PANEL 2021-11-11 Ny Carreon [place] of 00:02:00 [facility] CBC WITH DIFF 2021-11-11 Mala Suazo of 00:02:00 [facility] GLYCOSYLATED HEMOGLOBIN (A1C) 2021-11-11 Ny Carreon iversity of 00:02:00 [facility] PROTHROMBIN TIME / INR 2021-11-11 [facility] 00:02:00 [facility] N-TERMINAL PRO-BNP 2021-11-11 Mlaa Suazo o f 00:02:00 [facility] EMERGENCY DEPARTMENT DOCUMENTS 2021-11-10 Doctor U niversity of 05:01:00 Unassigned, No [facility] Colonoscopy 2019-09-27 Sinai Jerez 20:54:02 Esophagogastroduodenoscopy 2019-09-27 Prasad Jerez 05:00:00 Tonsillectomy and adenoidectomy [facility] Expl[facility] of [facility] Encounters Start End Encounter Admission Attending Care Care Encounter Source Date/Time Date/Time Type Type Clinicians Facility Department ID 2022-01-13 2022-01-13 Outpatient LUIS MIGUEL OLIVAREZ [facility] [id number] [place] 04:37:00 04:37:00 HN 0719 da [facility] Program 2021-11-13 2021-11-13 Telephone [facility] [id number] Univers 00:00:00 00:00:00 Earnestine JUAREZ [id number] [place] [id number] [facility] 0[address] [facility] 2021-11-13 2021-11-13 Transition LEONARDO Vyas [id number] Univers 00:00:00 00:00:00 of Kenisha REAGAN [id number] i [place] [id number] [facility] [address] 2021-11-10 2021-11-12 [facility] Gabriele Mala [facility] 1.2.840. [id number] Univers 18:39:00 19:10:00 Encounter Ny Carreon [id number] ity of Billy Tapia 4.2.7.2.686 [facility] [id number] [facility] [address] 2021-11-10 2021-11-12 Outpatient X [facility] [id number] Univers 18:39:00 19:10:00 BILLY dean [facility] 2020-11-27 2020-11-28 Outpatient nullFlavo [facility] [id number] Memoria 20:00:00 04:59:59 r Primary 00 l Kenisha Gupta 2020-11-27 2020-11-27 Outpatient Francisco Jorge [facility] [id number] 15:00:00 23:59:59 00 2020-11-27 2020-11-27 Outpatient TRELL IE [id number] [facility] 15:00:00 15:00:00 00 emelia Jerez 2019-01-21 2019-01-24 Inpatient Elmer ERVIN Matt TELE [id number] [facility] 17:51:00 13:13:00 MEHJABIN Medic al [place] 2018-07-16 2018-07-19 Outpatient E TONNY, [facility] TELE [id number] [place] 15:24:00 14:47:00 LESTER [facility] 2018-06-30 2018-07-01 Outpatient E ELEANOR, [facility] TELE [id number] [facility] 16:03:00 17:15:00 DYLON [facility] 2018-05-17 2018-05-17 Emergency E WILLIAM, [facility] [id number] [place] 13:38:00 15:27:00 PATI [facility] 2018-03-09 2018-03-09 Emergency E CHRIS, [facility] [id number] [place] 10:29:00 14:00:00 ANDREW [facility] 2018-02-09 2018-02-10 Emergency [facility]Flavo [facility] [id number] Memoria 16:37:00 00:33:00 hunter Jerez 28 l [place] 2018-02-09 2018-02-09 Outpatient Yael, [facility] [id number] 11:37:00 19:33:00 Kiera 28 Arabella 2018-01-25 2018-01-25 Emergency nullFlavo [facility] [id number] Memoria 14:31:00 19:00:00 hunter Jerez 27 l [place] 2018-01-25 2018-01-25 Outpatient Jose [facility]reon [facility] [id number] 09:31:00 14:00:00 Si 27 2017-11-01 2017-11-01 Emergency nullFlavo [facility] [id number] Mem[facility] 16:24:00 20:20:00 r [facility] 26 l [place] 2017-11-01 2017-11-01 Outpatient Shashank Lopez [facility] [id number] 11:24:00 15:20:00 Y 26 2017-05-17 2017-05-17 Emergency [facility]Flavo [facility] [id number] Memoria 00:43:00 04:10:00 hunter Jerez 25 l [place] 2017-05-16 2017-05-16 Outpatient Zoran [facility] [id number] 18:43:00 22:10:00 Adelia Valentin 2017-04-09 2017-04-09 Emergency [facility]Flavo [facility] [id number] [facility] 14:40:00 16:47:00 r Erie 24 l [place] 2017-04-09 2017-04-09 Outpatient Marco Antonio, [place] [id number] 09:40:00 11:47:00 Meng Татьяна Childress 2017-01-20 2017-01-20 Emergency [facility]Flavo [facility] [id number] Memoria 00:27:00 06:50:00 r [facility]itario 23 l [place] 2017-01-19 2017-01-20 Out[facility] [id number] 19:27:00 01:50:00 23 2017-01-08 2017-01-08 Emergency nullFlavo [facility] [id number] Memoria 19:26:00 23:14:00 r [facility] 22 l [place] 2017-01-08 2017-01-08 Outpatient Yael, [facility] [id number] 14:26:00 18:14:00 Kiera Lennie Bell 2016-09-20 2016-09-21 Emergency nullFlavo [facility] [id number] Memoria 21:11:00 00:12:00 r [facility] 21 l [place] 2016-09-20 2016-09-20 [place] [id number] 16:11:00 19:12:00 Sebastian Tj Browne 2016-06-06 2016-06-06 Emergency [facility]Flavo [facility] [id number] Memoria 17:06:00 19:18:00 r [facility]it[facility] 20 l [place] 2016-06-06 2016-06-06 Outpatient Sunil Ruiz [facility] [id number] 11:06:00 13:18:00 Fannie 20 2016-06-06 2016-06-06 Emergency nullFlavo [facility] [id number] Memoria 01:11:00 04:18:00 r Solitario 19 l [place] 2016-06-05 2016-06-05 Outpatient Yael, [facility] [id number] 19:11:00 22:18:00 Kiera Shyann Arabella 2016-05-14 2016-05-14 Emergency nullFlavo [facility] [id number] Memoria 16:10:00 19:00:00 r Solitario 18 l [place] 2016-05-14 2016-05-14 [place], [place] [id number] 10:10:00 13:00:00 Sebastian Browne 2015-04-27 2015-04-29 OBS nullFlavo [facility] [id number] Memoria 15:15:00 23:30:00 Observatio r Solitario 16 l n Patient [facility] dav[place] 2015-04-27 2015-04-29 Outpatient Betsey, [place] [id number] 10:15:00 17:30:00 Mustnay 16 Mag 2014-12-30 2014-12-30 EC nullFlavo [facility] [id number] Memoria 21:22:00 22:11:00 Emergency r Solit[facility] 14 l [place] 2014-12-30 2014-12-30 Outpatient Iram Lunsford 2.16.840. 2.16.840.1 . [id number] 16:22:00 17:11:00 Julian [id number] 3.615.0.1 5.0.029 85 8921-04-27 2014-10-22 EC nullFlavo [facility] [id number] Memoria 16:11:00 17:59:00 Emergency r Solitario 13 l [place] 2014-10-22 2014-10-22 Outpatient Sunil Ruiz 2.16.840. 2.16.840. 1. [id number] 11:11:00 12:59:00 Fannie [id number] 3.615.0.1 5.0.283 21 2989-01-23 2014-07-20 EC nullFlavo [facility] [id number] Memoria 04:06:00 06:52:00 Emergency r Erie 12 l [place] 2014-07-19 2014-07-20 Outpatient Ricardo, 2.16.840. 2.16.840.1. 3 [id number] 22:06:00 00:52:00 Vimi [id number] 3.615.0.1 5.0.101 01 Results Test Description Test Time Test Comments Results Result Comments Source TROPONIN I 2021-11-12 12:51:42 Test Item Value Reference Range Interpretation Comme nts TROPONIN I (test code = 0.015 ng/mL See_Comment [Au tomated message] The [id number]) system which ge nerated this result tra nsmitted reference range : <=0.034. The reference r chuck was not used to int erpret this result as normal/abnormal . KAIT (test code = KAIT) Reference (Normal) Range (defined by the 99th percentile reference limit): <= 0.034 ng/mL Note: Cardiac troponin begins to rise 3-4 hours after the onset of ischemia. Repeat in 4-6 hours if the sample was drawn within 3-4 hours of the onset of the symptom and found normal. Diagnosis of myocardial injury is made with acute changes in cTn concentrations with at least one serial sample above the 99th percentile upper reference limit (URL), taken together with the patient's clinical presentation. Biotin has been reported to cause a negative bias, interpret results relative to patient's use of biotin. Lab Interpretation Normal (test code = 69799-5) [facility]. METABOLIC PANEL (06436)2021-11-12 09:42:31 Test Item Value Reference Range Interpretation Comments NA (test code = 139 mmol/L 135-145 7194676556) K (test code = 4.0 mmol/L 3.5-5.0 2863653686) CL (test code = 111 mmol/L 98-108 H 6916152098) CO2 TOTAL (test code = 21 mmol/L 23-31 L 5220562469) AGAP (test code = 2-16 1061564607) BUN (test code = 16 mg/dL 7-23 4778935788) GLUCOSE (test code = 95 mg/dL 70-110 0058590770) CREATININE (test code = 0.70 mg/dL 0.50-1.04 7382673482) TOTAL BILI (test code = 0.8 mg/dL 0.1-1.7 9035953893) CALCIUM (test code = 8.7 mg/dL 8.6-10.6 6881415665) T PROTEIN (test code = 6.7 g/dL 6.3-8.2 3939648003) ALBUMIN (test code = 3.9 g/dL 3.5-5.0 5162073723) ALK PHOS (test code = 38 U/L 34-122 0073188777) ALTv (test code = 16 U/L 5-35 2-6) AST(SGOT) (test code = 35 U/L 13-40 1586121944) eGFR (test code = mL/min/1.73m2 3058118025) KAIT (test code = KAIT) Association of Glomerular Filtration Rate (GFR) and Staging of Kidney Disease* + --+ --+ ------+| GFR (mL/min/1.73 m2) ?| With Kidney Damage ?| ?Without Kidney Damage+ --------+ --------+ +| ?>90 ?| ?Stage one ?| ? Normal ?+ ---+ ---+ -------+| ?60-89 ?| ?Stage two ?| ? Decreased GFR ? + --+ --+ ------+| ?30-59 ?| ?Stage three ?| ? Stage three ? + --+ --+ ------+| ?15-29 ?| ?Stage four ? | ? Stage four ?+ ---+ ---+ -------+| ?<15 (or dialysis) ? ?| ?Stage five ? | ? Stage five ?+ ---+ ---+ -------+ *Each stage assumes the associated GFR level has been in effect for at least three months. ?Stages 1 to 5, with or without kidney disease, indicate chronic kidney disease. Notes: Determination of stages one and two (with eGFR >59mL/min/1.73 m2) requires estimation of kidney damage for at least three months as defined by structural or functional abnormalities of the kidney, manifested by either:Pathological abnormalities or Markers of kidney damage (including abnormalities in the composition of the blood or urine or abnormalities in imaging tests). Lab Interpretation Abnormal (test code = 68040-1) [facility] WITH [id number] 09:28:04 Test Item Value Reference Range Interpretation Comments WBC (test code = See_Comment H [Automated 6690-2) message] The sy stem which generated this result transmitted reference range : 4.30 - 11.10 10*3/?L. The reference range was not used to interpret this result as normal/abnormal . RBC (test code = See_Comment L [Automated 789-8) message] The sy stem which generated this result transmitted reference range : 3.93 - 5.25 10*6/?L. The reference range was not used to interpret this result as normal/abnormal . HGB (test code = 11.0 g/dL 11.6-15.0 L 718-7) HCT (test code = 33.5 % 35.7-45.2 L 4544-3) MCV (test code = 97.1 fL 80.6-95.5 H 787-2) MCH (test code = 31.9 pg 25.9-32.8 785-6) MCHC (test code = 32.8 g/dL 31.6-35.1 786-4) RDW-SD (test code = 47.8 fL 39.0-49.9 97872-9) RDW-CV (test code = 13.4 % 12.0-15.5 788-0) PLT (test code = See_Comment [Automated 777-3) message] The sy stem which generated this result transmitted reference range : 166 - 358 10*3/ ?L. The reference r chuck was not used to interpret this result as normal/abnormal . MPV (test code = 10.4 fL 9.5-12.9 86960-5) NRBC/100 WBC (test See_Comment [Automat ed code = 5587354264) message] The system which generated this result transmitted reference range : 0.0 - 10.0 /100 WBCs. The refer ence range was not u sed to interpret th is result as normal/abnormal . NRBC x10^3 (test code <0.01 See_Comment [Auto mated = 1349559425) message] The s ystem which generated this result transmitted reference range : 10*3/?L. The reference range was not used to interpret this result as normal/abnormal . GRAN MAT (NEUT) % 72.1 % (test code = 770-8) IMM GRAN % (test code 0.40 % = 0007314147) LYMPH % (test code = 20.7 % 736-9) MONO % (test code = 6.1 % 5905-5) EOS % (test code = 0.2 % 713-8) BASO % (test code = 0.5 % 706-2) GRAN MAT x10^3(ANC) 8.21 10*3/uL 1.88-7.09 H (test code = 5986960822) IMM GRAN x10^3 (test 0.04 10*3/uL 0.00-0.06 code = 5645305381) LYMPH x10^3 (test code 2.35 10*3/uL 1.32-3.29 = 731-0) MONO x10^3 (test code 0.69 10*3/uL 0.33-0.92 = 742-7) EOS x10^3 (test code = <0.03 0.03-0.39 L 711-2) BASO x10^3 (test code 0.06 10*3/uL 0.01-0.07 = 704-7) Lab Interpretation Abnormal (test code = 31278-2) [id number] 20:43:01 Test Item Value Reference Range Interpretation Comments VIT B12 (test code = 232 pg/mL 240-930 L 1137834038) KAIT (test code = KAIT) Biotin has been reported to cause a positive bias, interpret results relative to patient's use of biotin. Lab Interpretation (test Abnormal code = 10999-6) [facility] [id number] 17:44:36 Test Item Value Reference Range Interpretation Comments CRP (test code = 3248178696) 0.6 mg/dL <0.8 Lab Interpretation (test code = Normal 94364-8) [facility] 17:03[facility]15 Test Item Value Reference Range Interpretation Comments Procalcitonin (test 0.02 ng/mL <0.07 code = 2448262019) KAIT (test code = KAIT) INTERPRETATION OF PROCALCITONIN RESULTS IN ADULTS >= 18 YEARS OF AGE Initiation and discontinuation of antibiotics on patients with suspected or confirmed Lower Respiratory Tract Infection in Adults >= 18 years of age. + +-------- --------+ + -----+|Procalcitonin |Interpretation ?|Antibiotic ? ? |Considerations ? |ng/mL ? | ?|recommendation | ? + +-------- --------+ + -----+| <0.1 ? | Bacterial ? ? ?| Strongly ? ? ?| ? | ?| infection very | discouraged ? | Overruling: ? | ?| unlikely ? ? ? | ? | ? Clinically unstable ? ? ? + +-------- --------+ + ? High risk for adverse ? ? | <0.25 ?| Bacterial ? ? ?| Discouraged ? | ? outcome ? | ?| infection ? ? ?| ? | ? SEE IMPORTANT NOTE ?| ?| unlikely ? ? ? | ? | ? + +-------- --------+ + -----+| >=0.25 ? ? ? | Bacterial ? ? ?| Encouraged ? ?| ? | ?| infection ? ? ?| ? | ? | ?| likely ? | ? | Consider treatment failure ?+ +------- ---------+ -+ if levels does not decrease | >0.5 ? | Bacterial ? ? ?| Strongly ? ? ?| appropriately ? | ?| infection very | encouraged ? ?| ? | ?| likely ? | ? | ? + +-------- --------+ + -----+ Discontinuation of antibiotics in high-acuity patients with suspected or confirmed sepsis in Adults >= 18 years of age. + +-------- --------+ + -----+|Procalcitonin |Interpretation ?|Antibiotic ? ? |Considerations ? |ng/mL ? | ?|recommendation | ? + +-------- --------+ + -----+| <0.25 ?| Bacterial ? ? ?| Strongly ? ? ?| ? | ?| infection very | discouraged ? | Overruling: ? | ?| unlikely ? ? ? | ? | ? Clinically unstable ? ? ? + +-------- --------+ + ? High risk for adverse ? ? | <0.5 or drop | Bacterial ? ? ?| Discouraged ? | ? outcome ? | >80% from ? ?| infection ? ? ?| ? | ? SEE IMPORTANT NOTE ?| highest PCT ?| unlikely ? ? ? | ? | ? | level ?| ?| ? | ? + +-------- --------+ + -----+| >=0.5 ?| Bacterial ? ? ?| Encouraged ? ?| ? | ?| infection ? ? ?| ? | ? | ?| likely ? | ? | Consider treatment failure ?+ +------- ---------+ -+ if levels does not decrease | >1.0 ? | Bacterial ? ? ?| Strongly ? ? ?| appropriately ? | ?| infection very | encouraged ? ?| ? | ?| likely ? | ? | ? + +-------- --------+ + -----+ Percentage of drop of Procalcitonin calculation for Discontinuation of antibiotics in high-acuity patients with suspected or confirmed sepsis in Adults >= 18 years of age. ? Procalcitonin highest{}-Procalcitonin current{}Delta Procalcitonin = x100% ? Procalcitonin current {} IMPORTANT NOTE: Procalcitonin may be elevated without bacterial infection by physiologic stress related to trauma, to, chronic dialysis, metastatic cancer, surgery in the past seven days, malaria, some fungal infections, and some forms of vasculitis. The interpretation algorithm may not apply to patients with immunosuppression (equivalent of >10 mg of prednisone daily), HIV with CD4 cell count < 350 cells/mm3, active malignancy on systemic chemotherapy, solid organ transplant or hematopoietic stem cell transplantation, or hospital acquired pneumonia. Additionally, some clinical trials of procalcitonin have excluded patients with shock requiring vasopressor use, acute respiratory failure requiring mechanical ventilation, or those with known lung abscess/empyema. For further information please refer to:[email or web address] center/best-care/HPVO/[employer]/default.asp Lab Interpretation Normal (test code = 92457-5) [facility], [id number] 16:33:21 Test Item Value Reference Range Interpretation Comments VIT D 25OH (test code = 34 ng/mL 25-80 15979-5) KAIT (test code = KAIT) Deficiency: <20 ng/mLInsufficiency : 20-24 ng/mLOptimal: 25-80 ng/mL Lab Interpretation (test Normal code = 52554-8) [facility]SEDIMENTATION [id number] 12:48:11 Test Item Value Reference Range Interpretation Comments ESR (test code = See_Comment H [Automated message] [id number]) The system [employer] generated this result transmitted ref erence range: 0 - 20 m m/HR. The reference r chuck was not used to interpret this result as normal/abnor mal. Lab Interpretation (test Abnormal code = 45206-3) [facility]TR[facility] [id number] 11:17:52 Test Item Value Reference Interpretation Comments Range TROPONIN I (test 0.038 ng/mL See_Comment H [Automated code = 1732138958) message] The system which generated this result transmitted reference range : <=0.034. The reference range was not used to interpret this result as normal/abnormal . KAIT (test code = Reference (Normal) KAIT) Range (defined by the 99th percentile reference limit): <= 0.034 ng/mL Note: Cardiac troponin begins to rise 3-4 hours after the onset of ischemia. Repeat in 4-6 hours if the sample was drawn within 3-4 hours of the onset of the symptom and found normal. Diagnosis of myocardial injury is made with acute changes in cTn concentrations with at least one serial sample above the 99th percentile upper reference limit (URL), taken together with the patient's clinical presentation. Biotin has been reported to cause a negative bias, interpret results relative to patient's use of biotin. Lab Interpretation Abnormal (test code = 07667-9) [facility]N-[facility]MINAL [id number] 11:14:30 Test Item Value Reference Range Interpretation Comments NT-proBNP (test code 2560 pg/mL See_Comment H [Autom ated = 8929784967) message] The system which generated this result transmitted reference range : <=125. The reference range was not used to interpret this result as normal/abnormal . KAIT (test code = KAIT) Biotin has been reported to cause a negative bias, interpret results relative to patient's use of biotin. Lab Interpretation Abnormal (test code = 32814-5) [facility]MAG[facility]20[facility] 11:12:09 Test Item Value Reference Range Interpretation Comments MAGNESIUM (test code = 0523354189) 1.7 mg/dL 1.7-2.4 Lab Interpretation (test code = Normal 99800-9) [facility]COMP. METABOLIC PANEL (89599)2021-11-11 11:11:49 Test Item Value Reference Range Interpretation Comments NA (test code = 141 mmol/L 135-145 6277124045) K (test code = 3.4 mmol/L 3.5-5.0 L 8223264189) CL (test code = 110 mmol/L 98-108 H 3032269687) CO2 TOTAL (test code = 18 mmol/L 23-31 L 1775165191) AGAP (test code = 2-16 7019175119) BUN (test code = 11 mg/dL 7-23 9999348914) GLUCOSE (test code = 132 mg/dL 70-110 H 7696679446) CREATININE (test code = 0.69 mg/dL 0.50-1.04 1996393765) TOTAL BILI (test code = 0.5 mg/dL 0.1-1.8 3661904245) CALCIUM (test code = 8.8 mg/dL 8.6-10.6 7013491492) T PROTEIN (test code = 7.2 g/dL 6.3-8.2 7809620032) ALBUMIN (test code = 4.3 g/dL 3.5-5.0 8079525908) ALK PHOS (test code = 67 U/L 34-122 8018101083) ALTv (test code = 15 U/L 5-35 1742-6) AST(SGOT) (test code = 28 U/L 13-40 8052869209) eGFR (test code = mL/min/1.73m2 0089178719) KAIT (test code = KAIT) Association of Glomerular Filtration Rate (GFR) and Staging of Kidney Disease* + --+ --+ ------+| GFR (mL/min/1.73 m2) ?| With Kidney Damage ?| ?Without Kidney Damage+ --------+ --------+ +| ?>90 ?| ?Stage one ?| ? Normal ?+ ---+ ---+ -------+| ?60-89 ?| ?Stage two ?| ? Decreased GFR ? + --+ --+ ------+| ?30-59 ?| ?Stage three ?| ? Stage three ? + --+ --+ ------+| ?15-29 ?| ?Stage four ? | ? Stage four ?+ ---+ ---+ -------+| ?<15 (or dialysis) ? ?| ?Stage five ? | ? Stage five ?+ ---+ ---+ -------+ *Each stage assumes the associated GFR level has been in effect for at least three months. ?Stages 1 to 5, with or without kidney disease, indicate chronic kidney disease. Notes: Determination of stages one and two (with eGFR >59mL/min/1.73 m2) requires estimation of kidney damage for at least three months as defined by structural or functional abnormalities of the kidney, manifested by either:Pathological abnormalities or Markers of kidney damage (including abnormalities in the composition of the blood or urine or abnormalities in imaging tests). Lab Interpretation Abnormal (test code = 93749-9) [facility]PHOSPHORUS2022-[facility] 11:11:49 Test Item Value Reference Range Interpretation Comments PHOSPHORUS (test code = 5390888092) 3.1 mg/dL 2.5-5.0 Lab Interpretation (test code = Normal 54363-8) [facility] HospitalCREATINE [id number] 11:11:28 Test Item Value Reference Range Interpretation Comments CK (test code = 7089383351) 90 U/L 33-194 Lab Interpretation (test code = Normal 27228-6) [facility]CBC WITH [id number] 10:46:26 Test Item Value Reference Range Interpretation Comments WBC (test code = See_Comment H [Automated 9890-2) message] The system which generated this result transmit mirna reference range : 4.30 - 11.10 10*3/?L. The reference range was not used to interpret this result as normal/abnormal . RBC (test code = See_Comment L [Automated 789-8) message] The system which generated this result transmit mirna reference range : 3.93 - 5.25 10*6/?L. The reference range was not used to interpret this result as normal/abnormal . HGB (test code = 11.3 g/dL 11.6-15.0 L 718-7) HCT (test code = 34.2 % 35.7-45.2 L 4544-3) MCV (test code = 96.1 fL 80.6-95.5 H 787-2) MCH (test code = 31.7 pg 25.9-32.8 785-6) MCHC (test code = 33.0 g/dL 31.6-35.1 786-4) RDW-SD (test code = 46.9 fL 39.0-49.9 43002-9) RDW-CV (test code = 13.1 % 12.0-15.5 788-0) PLT (test code = See_Comment [Automated 777-3) message] The system which generated this result transmit mirna reference range : 166 - 358 10*3/ ?L. The reference range was not u sed to interpret th is result as normal/abnormal . MPV (test code = 9.8 fL 9.5-12.9 52710-9) NRBC/100 WBC (test See_Comment [Automat ed code = 3522228496) message] The system which generated this result transmit mirna reference range : 0.0 - 10.0 /100 WBCs. The reference range was not used to interpret this result as normal/abnormal . NRBC x10^3 (test code <0.01 See_Comment [Auto mated = 1481643153) message] The system which generated this result transmit mirna reference range : 10*3/?L. The reference range was not used to interpret this result as normal/abnormal . GRAN MAT (NEUT) % 90.4 % (test code = 770-8) IMM GRAN % (test code 0.50 % = 2871501721) LYMPH % (test code = 7.5 % 736-9) MONO % (test code = 1.5 % 5905-5) EOS % (test code = 0.0 % 713-8) BASO % (test code = 0.1 % 706-2) GRAN MAT x10^3(ANC) 11.71 10*3/uL 1.88-7.09 H (test code = 9064469004) IMM GRAN x10^3 (test 0.06 10*3/uL 0.00-0.06 code = 5737579761) LYMPH x10^3 (test code 0.97 10*3/uL 1.32-3.29 L = 731-0) MONO x10^3 (test code 0.19 10*3/uL 0.33-0.92 L = 742-7) EOS x10^3 (test code = <0.03 0.03-0.39 L 711-2) BASO x10^3 (test code <0.03 0.01-0.07 = 704-7) Lab Interpretation Abnormal (test code = 17143-7) [facility] HospitalFERRITIN [id number] 05:52:39 Test Item Value Reference Range Interpretation Comments FERRITIN (test code = 17.4 ng/mL 11.0-264.0 2789363278) KAIT (test code = KAIT) Biotin has been reported to cause a negative bias, interpret results relative to patient's use of biotin. Lab Interpretation (test Normal code = 67949-1) [facility] HospitalTHYROID STIMULATING [id number] 05:48:37 Test Item Value Reference Range Interpretation Comments TSH (test code = See_Comment [Automated message] 9852109737) The system [employer] generated this result transmitted ref erence range: 0.45 - 4 .70 mIU/L. The refe rence range was not u sed to interpret this result as normal/abnor mal. Lab Interpretation (test Normal code = 99403-8) [facility] HospitalIRON [id number] 05:27:51 Test Item Value Reference Range Interpretation Comments IRON (test code = 6191544664) 73 ug/dL 50-160 TIBC (test code = 9280780750) 401 ug/dL 250-410 % FE SAT (test code = 9255592738) 18 % 20-50 L Lab Interpretation (test code = Abnormal 59801-6) [facility]MAG[facility]2022-[facility]-17 05:27:51 Test Item Value Reference Range Interpretation Comments MAGNESIUM (test code = 8230047778) 2.1 mg/dL 1.7-2.4 Lab Interpretation (test code = Normal 98092-5) [facility]AMYLASE2022-[facility]-17 05:27:51 Test Item Value Reference Range Interpretation Comments IRAM (test code = 2673716747) 53 U/L 35-110 Lab Interpretation (test code = Normal 32429-8) [facility]PHOSPHORUS2022-[facility]-17 05:27:51 Test Item Value Reference Range Interpretation Comments PHOSPHORUS (test code = 6423260857) 3.3 mg/dL 2.5-5.0 Lab Interpretation (test code = Normal 98045-2) [facility] HospitalURIC [id number] 05:27:36 Test Item Value Reference Range Interpretation Comments URIC ACID (test code = 8530003208) 3.9 mg/dL 2.9-6.0 Lab Interpretation (test code = Normal 41382-2) [facility] HospitalGLYCOSYLATED HEMOGLOBIN (A1C)2021-11-11 05:18:51 Test Item Value Reference Range Interpretation Comments HGB A1C (test code = 5.0 % 4.0-5.7 4548-4) KAIT (test code = KAIT) Reference RangesNormal: <5.7%Prediabetes: 5.7 - 6.4%Diabetes: > 6.5% Lab Interpretation (test Normal code = 77500-5) [facility] HospitalLIPID PANEL (93715)(TOTAL CHOLESTEROL, TRIGLYCERIDES, HDL)2021-11-11 05:15:11 Test Item Value Reference Range Interpretation Comments CHOL (test code = 205 mg/dL 120-200 H 9920128017) HDL (test code = 49 mg/dL >50 L 7434263477) HDLC RATIO (test code = See_Comment [Au tomated message] 9312093643) The system [employer] h generated this result transmit mirna reference range : <=4.5. The refe rence range was not u sed to interpret th is result as normal/abnormal . TRIG (test code = 122 mg/dL 30-170 6896277366) LDL CHOL (test code = 132 mg/dL See_Comment [Auto mated message] 96214-2) The system [employer] generated this result transmit mirna reference range : <=160. The refe rence range was not u sed to interpret th is result as normal/abnormal . VLDL (test code = 24 mg/dL 5-60 7566521882) Lab Interpretation (test Abnormal code = 32656-8) [facility]TROPONIN [id number] 01:39:48 Test Item Value Reference Interpretation Comments Range TROPONIN I (test 0.006 ng/mL See_Comment [Automated code = 2026960464) message] The system which generated this result transmitted reference range : <=0.034. The reference range was not used to interpret this result as normal/abnormal . KAIT (test code = Reference (Normal) KAIT) Range (defined by the 99th percentile reference limit): <= 0.034 ng/mL Note: Cardiac troponin begins to rise 3-4 hours after the onset of ischemia. Repeat in 4-6 hours if the sample was drawn within 3-4 hours of the onset of the symptom and found normal. Diagnosis of myocardial injury is made with acute changes in cTn concentrations with at least one serial sample above the 99th percentile upper reference limit (URL), taken together with the patient's clinical presentation. Biotin has been reported to cause a negative bias, interpret results relative to patient's use of biotin. Lab Interpretation Normal (test code = 43469-6) [facility]N-TERMINAL [id number] 01:36:26 Test Item Value Reference Range Interpretation Comments NT-proBNP (test code 247 pg/mL See_Comment H [Autom ated = 7771076217) message] The system which generated this result transmitted reference range : <=125. The reference range was not used to interpret this result as normal/abnormal . KAIT (test code = KAIT) Biotin has been reported to cause a negative bias, interpret results relative to patient's use of biotin. Lab Interpretation Abnormal (test code = 98176-3) [facility] HospitalPROTHROMBIN TIME / [id number] 00:37:00 Test Item Value Reference Range Interpretation Comments PROTIME PATIENT (test See_Comment [Auto mated message] code = 5964-2) The system [employer] generated this result transmitted ref erence range: 12.0 - 1 4.7 Seconds. The re ference range was not u sed to interpret this result as normal/abnor mal. INR (test code = 6301-6) Nor mal INR <1.1; Warfarin Therap eutic range 2.0 to 3. 0 or 2.5 to 3.5, dep ending upon the indica tions. Lab Interpretation (test Normal code = 20764-8) [facility]. METABOLIC PANEL (53031)2021-11-11 00:34:19 Test Item Value Reference Range Interpretation Comments NA (test code = 140 mmol/L 135-145 5630401603) K (test code = 3.8 mmol/L 3.5-5.0 8975222380) CL (test code = 109 mmol/L 98-108 H 5735710724) CO2 TOTAL (test code = 21 mmol/L 23-31 L 1357202179) AGAP (test code = 2-16 6953506438) BUN (test code = 15 mg/dL 7-23 0749220093) GLUCOSE (test code = 131 mg/dL 70-110 H 9148769851) CREATININE (test code = 0.77 mg/dL 0.50-1.04 4335453145) TOTAL BILI (test code = 0.5 mg/dL 0.1-1.2 1503325594) CALCIUM (test code = 9.1 mg/dL 8.6-10.6 2329996019) T PROTEIN (test code = 7.1 g/dL 6.3-8.2 1492429447) ALBUMIN (test code = 4.4 g/dL 3.5-5.0 5775113404) ALK PHOS (test code = 75 U/L 34-122 5075836913) ALTv (test code = 16 U/L 5-35 1742-6) AST(SGOT) (test code = 31 U/L 13-40 1255940420) eGFR (test code = mL/min/1.73m2 2754134943) KAIT (test code = KAIT) Association of Glomerular Filtration Rate (GFR) and Staging of Kidney Disease* + --+ --+ ------+| GFR (mL/min/1.73 m2) ?| With Kidney Damage ?| ?Without Kidney Damage+ --------+ --------+ +| ?>90 ?| ?Stage one ?| ? Normal ?+ ---+ ---+ -------+| ?60-89 ?| ?Stage two ?| ? Decreased GFR ? + --+ --+ ------+| ?30-59 ?| ?Stage three ?| ? Stage three ? + --+ --+ ------+| ?15-29 ?| ?Stage four ? | ? Stage four ?+ ---+ ---+ -------+| ?<15 (or dialysis) ? ?| ?Stage five ? | ? Stage five ?+ ---+ ---+ -------+ *Each stage assumes the associated GFR level has been in effect for at least three months. ?Stages 1 to 5, with or without kidney disease, indicate chronic kidney disease. Notes: Determination of stages one and two (with eGFR >59mL/min/1.73 m2) requires estimation of kidney damage for at least three months as defined by structural or functional abnormalities of the kidney, manifested by either:Pathological abnormalities or Markers of kidney damage (including abnormalities in the composition of the blood or urine or abnormalities in imaging tests). Lab Interpretation Abnormal (test code = 15616-6) [facility]LIPASE[facility] 00:33:39 Test Item Value Reference Range Interpretation Comments LIPASE (test code = 0047151250) 43 U/L 0-220 Lab Interpretation (test code = Normal 22692-4) [facility] WITH [id number] 00:29:00 Test Item Value Reference Range Interpretation Comments WBC (test code = See_Comment H [Automated 5219-2) message] The system which generated this result transmit mirna reference range : 4.30 - 11.10 10*3/?L. The reference range was not used to interpret this result as normal/abnormal . RBC (test code = See_Comment L [Automated 809-8) message] The system which generated this result transmit mirna reference range : 3.93 - 5.25 10*6/?L. The reference range was not used to interpret this result as normal/abnormal . HGB (test code = 11.8 g/dL 11.6-15.0 718-7) HCT (test code = 35.4 % 35.7-45.2 L 4544-3) MCV (test code = 96.5 fL 80.6-95.5 H 787-2) MCH (test code = 32.2 pg 25.9-32.8 785-6) MCHC (test code = 33.3 g/dL 31.6-35.1 786-4) RDW-SD (test code = 46.3 fL 39.0-49.9 62877-1) RDW-CV (test code = 13.0 % 12.0-15.5 788-0) PLT (test code = See_Comment [Automated 777-3) message] The system which generated this result transmit mirna reference range : 166 - 358 10*3/ ?L. The reference range was not u sed to interpret th is result as normal/abnormal . MPV (test code = 9.9 fL 9.5-12.9 00383-0) NRBC/100 WBC (test See_Comment [Automat ed code = 6607420397) message] The system which generated this result transmit mirna reference range : 0.0 - 10.0 /100 WBCs. The reference range was not used to interpret this result as normal/abnormal . NRBC x10^3 (test code <0.01 See_Comment [Auto mated = 3409705813) message] The system which generated this result transmit mirna reference range : 10*3/?L. The reference range was not used to interpret this result as normal/abnormal . GRAN MAT (NEUT) % 88.0 % (test code = 770-8) IMM GRAN % (test code 0.40 % = 1901007552) LYMPH % (test code = 8.1 % 736-9) MONO % (test code = 2.3 % 5905-5) EOS % (test code = 0.9 % 713-8) BASO % (test code = 0.3 % 706-2) GRAN MAT x10^3(ANC) 14.85 10*3/uL 1.88-7.09 H (test code = 5569837791) IMM GRAN x10^3 (test 0.06 10*3/uL 0.00-0.06 code = 6392697104) LYMPH x10^3 (test code 1.36 10*3/uL 1.32-3.29 = 731-0) MONO x10^3 (test code 0.38 10*3/uL 0.33-0.92 = 742-7) EOS x10^3 (test code = 0.15 10*3/uL 0.03-0.39 711-2) BASO x10^3 (test code 0.05 10*3/uL 0.01-0.07 = 704-7) Lab Interpretation Abnormal (test code = 23702-2) [facility]MAG[facility] [id number] 06:19:00 Test Item Value Reference Range Interpretation Comments MAGNESIUM (test code = 48A) 2.0 mg/dL 1.8-2.4 BASIC METABOLIC PANEL *WW*2019-01-24 06:05:00 Test Item Value Reference Range Interpretation [...] 09D) 8.3 mg/dL 8.3-9.5 CBC (INCLUDES AUTOMATED DIFFERENTIAL)*[id number] 05:53:00 Test Item Value Reference Range Interpretation Comments WBC (test code = WBC) 8.5 10\\S\\3/uL 4.5-11.0 RBC (test code = RBC) 3.78 10\\S\\6/uL 4.20-5.60 L HGB (test code = HBG) 12.2 g/dL 12.0-15.5 HCT (test code = HCT) 37.4 % 35.0-44.0 MCV (test code = MCV) 98.9 fL 81.0-99.0 MCH (test code = MCH) 32.3 pg 27.0-31.0 H MCHC (test code = MCHC) 32.6 g/dL 32.0-36.0 RDW (test code = RDW) 13.2 % 11.5-14.5 PLT (test code = PLT) 234 10\\S\\3/uL 130-400 MPV (test code = MPV) 9.6 fL 9.4-12.4 NEUTROP # (test code = NE#) 6.3 10\\S\\3/uL 1.6-8.0 LYMPH # (test code = LY#) 1.5 10\\S\\3/uL 1.1-3.5 MONOCYTE # (test code = MO#) 0.6 10\\S\\3/uL 0.0-1.1 EOSINOPH # (test code = EO#) 0.0 10\\S\\3/uL 0.0-0.7 BASOPHIL # (test code = BA#) 0.0 10\\S\\3/uL 0.0-0.3 IG # (test code = IG#) 0.03 10\\S\\3/uL 0.00-0.06 NRBC # (test code = NRBC#) 0.00 10\\S\\3/uL 0.00-0.01 NEUTROPH % (test code = NE%) [...] code = NORMAL WRBCMOR) BASIC METABOLIC PANEL *WW*2019-01-23 06:59:00 Test Item Value Reference Range Interpretation [...] 1.3 INR) INRH (test code = SUGGESTED THERAPEUTIC INRH) RANGE FOR INR: 2.5 - 3.5 For [...] 48A) 2.0 mg/dL 1.8-2.4 CBC (INCLUDES AUTOMATED DIFFERENTIAL)*[id number] 05:59:00 Test Item Value Reference Range Interpretation Comments WBC (test code = WBC) 8.4 10\\S\\3/uL 4.5-11.0 RBC (test code = RBC) 3.67 10\\S\\6/uL 4.20-5.60 L HGB (test code = HBG) 11.7 g/dL 12.0-15.5 L HCT (test code = HCT) 35.3 % 35.0-44.0 MCV (test code = MCV) 96.2 fL 81.0-99.0 MCH (test code = MCH) 31.9 pg 27.0-31.0 H MCHC (test code = MCHC) 33.1 g/dL 32.0-36.0 RDW (test code = RDW) 13.2 % 11.5-14.5 PLT (test code = PLT) 241 10\\S\\3/uL 130-400 MPV (test code = MPV) 9.4 fL 9.4-12.4 NEUTROP # (test code = NE#) 5.3 10\\S\\3/uL 1.6-8.0 LYMPH # (test code = LY#) 2.2 10\\S\\3/uL 1.1-3.5 MONOCYTE # (test code = MO#) 0.7 10\\S\\3/uL 0.0-1.1 EOSINOPH # (test code = EO#) 0.1 10\\S\\3/uL 0.0-0.7 BASOPHIL # (test code = BA#) 0.1 10\\S\\3/uL 0.0-0.3 IG # (test code = IG#) 0.03 10\\S\\3/uL 0.00-0.06 NRBC # (test code = NRBC#) 0.00 10\\S\\3/uL 0.00-0.01 NEUTROPH % (test code = NE%) [...] A84) <0.015 ng/mL 0.000-0.045 CBC (INCLUDES AUTOMATED DIFFERENTIAL)*[id number] 06:06:00 Test Item Value Reference Range Interpretation Comments WBC (test code = WBC) 12.4 10\\S\\3/uL 4.5-11.0 H RBC (test code = RBC) 3.52 10\\S\\6/uL 4.20-5.60 L HGB (test code = HBG) 11.1 g/dL 12.0-15.5 L HCT (test code = HCT) 34.1 % 35.0-44.0 L MCV (test code = MCV) 96.9 fL 81.0-99.0 MCH (test code = MCH) 31.5 pg 27.0-31.0 H MCHC (test code = MCHC) 32.6 g/dL 32.0-36.0 RDW (test code = RDW) 13.5 % 11.5-14.5 PLT (test code = PLT) 259 10\\S\\3/uL 130-400 MPV (test code = MPV) 9.4 fL 9.4-12.4 NEUTROP # (test code = NE#) 9.4 10\\S\\3/uL 1.6-8.0 H LYMPH # (test code = LY#) 2.0 10\\S\\3/uL 1.1-3.5 MONOCYTE # (test code = MO#) 0.9 10\\S\\3/uL 0.0-1.1 EOSINOPH # (test code = EO#) 0.0 10\\S\\3/uL 0.0-0.7 BASOPHIL # (test code = BA#) 0.0 10\\S\\3/uL 0.0-0.3 IG # (test code = IG#) 0.08 10\\S\\3/uL 0.00-0.06 H NRBC # (test code = NRBC#) 0.00 10\\S\\3/uL 0.00-0.01 NEUTROPH % (test code = NE%) [...] 09D) 8.7 mg/dL 8.3-9.5 CBC (INCLUDES AUTOMATED DIFFERENTIAL)*[id number] 06:00:00 Test Item Value Reference Range Interpretation Comments WBC (test code = WBC) 15.6 10\\S\\3/uL 4.5-11.0 H RBC (test code = RBC) 3.87 10\\S\\6/uL 4.20-5.60 L HGB (test code = HBG) 12.0 g/dL 12.0-15.5 HCT (test code = HCT) 35.8 % 35.0-44.0 MCV (test code = MCV) 92.5 fL 81.0-99.0 MCH (test code = MCH) 31.0 pg 27.0-31.0 MCHC (test code = MCHC) 33.5 g/dL 32.0-36.0 RDW (test code = RDW) 13.5 % 11.5-14.5 PLT (test code = PLT) 325 10\\S\\3/uL 130-400 MPV (test code = MPV) 9.5 fL 9.4-12.4 NEUTROP # (test code = NE#) 13.7 10\\S\\3/uL 1.6-8.0 H LYMPH # (test code = LY#) 1.1 10\\S\\3/uL 1.1-3.5 MONOCYTE # (test code = MO#) 0.8 10\\S\\3/uL 0.0-1.1 EOSINOPH # (test code = EO#) 0.0 10\\S\\3/uL 0.0-0.7 BASOPHIL # (test code = BA#) 0.0 10\\S\\3/uL 0.0-0.3 IG # (test code = IG#) 0.08 10\\S\\3/uL 0.00-0.06 H NRBC # (test code = NRBC#) 0.00 10\\S\\3/uL 0.00-0.01 NEUTROPH % (test code = NE%) [...] (test code = NORMAL WRBCMOR) URINALYSIS WITH [id number] 21:55:00 Test Item Value Reference Range Interpretation [...] code = USPERM) /HPF NONE DRUGS OF [id number] 21:55:00 Test Item Value Reference Range Interpretation Comments DRUG SCRN (test code = URINE DRUG HDOA) SCREEN This is an unconfirmed screening result and should not be used for non-medical purposes CANNABINOD (test code POSITIVE NEGATIVE A = 88C) AMPHETAMINE (test code Negative NEGATIVE = 84A) BENZODIAZP (test code Negative NEGATIVE = 86A) BARBITURAT (test code POSITIVE NEGATIVE A = 85A) OPIATES (test code = POSITIVE NEGATIVE A 92B) COCAINE (test code = Negative NEGATIVE 87A) PHENCYCLID (test code Negative NEGATIVE = 66A) METHADONE (test code = Negative NEGATIVE 64A) DOAH (test code = DOAH.) URINE DRUG SCREEN Cut-off values are as follows: Cannabinoids 50 ng/mL Cocaine 300 ng/mL Amphetamines 1000 ng/mL Phencyclidine 25 ng/mL Benzodiazepines 200 ng.mL Methadone 300 ng/mL Barbiturates 200 ng/mL Opiates 2000 ng/mL CT ABDOMEN AND PELVIS WITH [id number] 21:03:20Exam: CT abdomen and pelvis with contrast.Location: [...] CONTRAST 2019-01-20 21:02:21Chest CT with contrast.Location Code: N2PESUEGTU HISTORY: chest pain, vomitingCOMPARISON: NoneTechnique: Helical CT [...] patientsize, and/or utilization of iterative reconstruction technique.OCCULT [id number] 20:16:00 Test Item Value Reference Range Interpretation Comments Direct Exam (test code POSITIVE FOR OCCULT = DE1) BLOOD [id number] 20:03:00 Test Item Value Reference Range Interpretation Comments D-DIMER (test code = <200 ng/mL D-DU 0-234 DDI) D-DIMER COMMENT (test *Level to rule out code = DDCOM) DVT or PE: <235 ng/mL D-DU* PRO TIME AND [id number] 20:03:00 Test Item Value Reference Range Interpretation Comments PT (test code = 11.8 s 9.8-13.6 TT) INR (test code = 1.0 INR) INRH (test code = SUGGESTED THERAPEUTIC INRH) RANGE FOR INR: 2.5 - 3.5 For Patients with Prosthetic Valves or Patients with recurrent Thromboembolic Events 2.0 - 3.0 For Most Other Applications PTT (test code = 26.0 s 20.2-38.0 PTT) PTTH (test code = To monitor the PTTH) effectiveness of heparin, we offer the Anti-Xa (Heparin Assay). It can be used for either unfractionated or LMW Heparin. Order Code is [id number] [id number] 20:02:00 Test Item Value Reference Range Interpretation Comments CPK (test code = 32A) 140 IU/L 26-192 COMPREHENSIVE METABOLIC [id number] 20:02:00 Test Item Value Reference Range Interpretation [...] code = 31A) 18 IU/L <=78 TROPONIN [id number] 19:55:00 Test Item Value Reference Range Interpretation Comments TROPONIN I (test code = A84) <0.015 ng/mL 0.000-0.045 XR CHEST 1 VIEW [id number] 19:40:49Exam: Chest portable erectLocation: H 12History: chest [...] Comments WBC (test code = WBC) 17.3 10\\S\\3/uL 4.5-11.0 H RBC (test code = RBC) 3.86 10\\S\\6/uL 4.20-5.60 L HGB (test code = HBG) 12.1 g/dL 12.0-15.5 HCT (test code = HCT) 35.2 % 35.0-44.0 MCV (test code = MCV) 91.2 fL 81.0-99.0 MCH (test code = MCH) 31.3 pg 27.0-31.0 H MCHC (test code = MCHC) 34.4 g/dL 32.0-36.0 RDW (test code = RDW) 13.6 % 11.5-14.5 PLT (test code = PLT) 309 10\\S\\3/uL 130-400 MPV (test code = MPV) 10.2 fL 9.4-12.4 NEUTROP # (test code = NE#) 15.2 10\\S\\3/uL 1.6-8.0 H LYMPH # (test code = LY#) 1.1 10\\S\\3/uL 1.1-3.5 MONOCYTE # (test code = MO#) 0.9 10\\S\\3/uL 0.0-1.1 EOSINOPH # (test code = EO#) 0.0 10\\S\\3/uL 0.0-0.7 BASOPHIL # (test code = BA#) 0.0 10\\S\\3/uL 0.0-0.3 IG # (test code = IG#) 0.08 10\\S\\3/uL 0.00-0.06 H NRBC # (test code = NRBC#) 0.00 10\\S\\3/uL 0.00-0.01 NEUTROPH % (test code = NE%) [...] code = MDIFF) NO NO COMPREHENSIVE METABOLIC [id number] 04:10:00 Test Item Value Reference Range Interpretation [...] Comments WBC (test code = WBC) 11.9 10\\S\\3/uL 4.5-11.0 H RBC (test code = RBC) 3.95 10\\S\\6/uL 4.20-5.60 L HGB (test code = HBG) 11.9 g/dL 12.0-15.5 L HCT (test code = HCT) 37.2 % 35.0-44.0 MCV (test code = MCV) 94.2 fL 81.0-99.0 MCH (test code = MCH) 30.1 pg 27.0-31.0 MCHC (test code = MCHC) 32.0 g/dL 32.0-36.0 RDW (test code = RDW) 13.8 % 11.5-14.5 PLT (test code = PLT) 352 10\\S\\3/uL 130-400 MPV (test code = MPV) 9.7 fL 9.4-12.4 NEUTROP # (test code = NE#) 9.0 10\\S\\3/uL 1.6-8.0 H LYMPH # (test code = LY#) 1.8 10\\S\\3/uL 1.1-3.5 MONOCYTE # (test code = MO#) 1.0 10\\S\\3/uL 0.0-1.1 EOSINOPH # (test code = EO#) 0.0 10\\S\\3/uL 0.0-0.7 BASOPHIL # (test code = BA#) 0.1 10\\S\\3/uL 0.0-0.3 IG # (test code = IG#) 0.07 10\\S\\3/uL 0.00-0.06 H NRBC # (test code = NRBC#) 0.00 10\\S\\3/uL 0.00-0.01 NEUTROPH % (test code = NE%) [...] (test code = RBCMOR) NORMAL BASIC METABOLIC [id number] 05:47:00 Test Item Value Reference Range Interpretation [...] code = 09D) 8.3 mg/dL 8.3-9.5 CARDIAC [id number] 02:45:00 Test Item Value Reference Range Interpretation Comments TROPONIN I (test code = A84) 0.059 ng/mL 0.000-0.045 H CARDIAC [id number] 18:36:00 Test Item Value Reference Range Interpretation Comments TROPONIN I (test code = A84) 0.059 ng/mL 0.000-0.[address] ABDOMEN AND PELVIS WITH [id number] 15:14:52EXAM: CT abdomen and pelvis with contrastLocation: [...] calculi, hydronephrosis, or solid renal mass is seen.Adrenals:Unremarkable.Lymph nodes: No lymphadenopathy.Peritoneum/retroperitoneum: No intraabdominal free air or free fluid.Vessels: Mild atherosclerosis, without abdominal aortic aneurysm.Pelvic organs/bladder:The uterus, adnexa, bladder are unremarkable.Bowel: The appendix [...] iterative reconstruction technique.DLP: 1534 mGy-cm CTDI 28 [id number] 13:05:00 Test Item Value Reference Range Interpretation Comments MAGNESIUM (test code = 48A) 1.9 mg/dL 1.8-2.4 CT HEAD W/O [id number] 12:54:16EXAM: CT head without contrastLocation: [id number]: NoneINDICATION: HeadacheTECHNIQUE: Axial images of the brain were performed with 5 mm slices. Imageswere reviewed in brain and bone windows. Coronal and sagittal reformattedimages were performed.DISCUSSION:No intracranial mass, hemorrhage, hydrocephalus, midline shift, or herniationis seen. No abnormal attenuation is seen. No calvarial fracture orscalpcontusion is identified. Included portions of the orbits are unremarkable. The visualized paranasal sinuses are unremarkable.IMPRESSION:No acute intracranial abnormalities.One or more of the following dose reduction techniques were used: Automatedexposure control, adjustment of the mA and/or kV according to patient size,and/or utilization of iterative reconstruction technique.DLP: 854 mGy-cm CTDI 45 mGyDRUGS OF [id number] 12:54:00 Test Item Value Reference Range Interpretation Comments DRUG SCRN (test code = URINE DRUG HDOA) SCREEN This is an unconfirmed screening result and should not be used for non-medical purposes CANNABINOD (test code POSITIVE NEGATIVE A = 88C) AMPHETAMINE (test code Negative NEGATIVE = 84A) BENZODIAZP (test code POSITIVE NEGATIVE A = 86A) BARBITURAT (test code Negative NEGATIVE = 85A) OPIATES (test code = Negative NEGATIVE 92B) COCAINE (test code = Negative NEGATIVE 87A) PHENCYCLID (test code Negative NEGATIVE = 66A) METHADONE (test code = Negative NEGATIVE 64A) DOAH (test code = DOAH.) URINE DRUG SCREEN Cut-off values are as follows: Cannabinoids 50 ng/mL Cocaine 300 ng/mL Amphetamines 1000 ng/mL Phencyclidine 25 ng/mL Benzodiazepines 200 ng.mL Methadone 300 ng/mL Barbiturates 200 ng/mL Opiates 2000 ng/mL URINALYSIS WITH [id number] 12:46:00 Test Item Value Reference Range Interpretation [...] (test code = USPERM) /HPF NONE URINE [id number] 12:39:00 Test Item Value Reference Range Interpretation Comments PREG UR (test code = PGU) NEGATIVE NEGATIVE COMPREHENSIVE METABOLIC [id number] 12:37:00 Test Item Value Reference Range Interpretation [...] = 31A) 17 IU/L <=78 AMYLASE AND [id number] 12:34:00 Test Item Value Reference Range Interpretation Comments AMYLASE (test code = 10A) 53 U/L 28-100 LIPASE (test code = 60A) 45 IU/L 73-393 L TROPONIN [id number] 12:33:00 Test Item Value Reference Range Interpretation Comments TROPONIN I (test code = A84) 0.087 ng/mL 0.000-0.045 H [id number] 12:26:00 Test Item Value Reference Range Interpretation Comments D-DIMER (test code = <200 ng/mL D-DU 0-234 DDI) D-DIMER COMMENT (test *Level to rule out code = DDCOM) DVT or PE: <235 ng/mL D-DU* CBC (INCLUDES AUTOMATED DIFFERENTIAL)2018-07-16 12:17:00 Test Item Value Reference Range Interpretation Comments WBC (test code = WBC) 13.8 10\\S\\3/uL 4.5-11.0 H RBC (test code = RBC) 4.37 10\\S\\6/uL 4.20-5.60 HGB (test code = HBG) 13.4 g/dL 12.0-15.5 HCT (test code = HCT) 39.4 % 35.0-44.0 MCV (test code = MCV) 90.2 fL 81.0-99.0 MCH (test code = MCH) 30.7 pg 27.0-31.0 MCHC (test code = MCHC) 34.0 g/dL 32.0-36.0 RDW (test code = RDW) 13.3 % 11.5-14.5 PLT (test code = PLT) 421 10\\S\\3/uL 130-400 H MPV (test code = MPV) 9.6 fL 9.4-12.4 NEUTROP # (test code = NE#) 11.5 10\\S\\3/uL 1.6-8.0 H LYMPH # (test code = LY#) 1.4 10\\S\\3/uL 1.1-3.5 MONOCYTE # (test code = MO#) 0.8 10\\S\\3/uL 0.0-1.1 EOSINOPH # (test code = EO#) 0.1 10\\S\\3/uL 0.0-0.7 BASOPHIL # (test code = BA#) 0.0 10\\S\\3/uL 0.0-0.3 IG # (test code = IG#) 0.06 10\\S\\3/uL 0.00-0.06 NRBC # (test code = NRBC#) 0.00 10\\S\\3/uL 0.00-0.01 NEUTROPH % (test code = NE%) [...] code = RBCMOR) NORMAL DIRECT STREP GROUP [id number] 07:45:00 Test Item Value Reference Range Interpretation Comments Culture Observations NO BETA HEMOLYTIC (test code = COB1) STREPTOCOCCUS ISOLATED Direct Exam (test code NO STREPTOCOCCUS GROUP = DE1) A ANTIGEN DETECTED THYROID PANEL/SCREEN (TSH)2018-07-01 05:50:00 Test Item Value Reference Range Interpretation Comments TSH (test code = A57) 0.453 uIU/mL 0.358-3.740 CARDIAC [id number] 05:16:00 Test Item Value Reference Range Interpretation Comments TROPONIN I (test code = A84) <0.015 ng/mL 0.000-0.045 BASIC METABOLIC [id number] 04:55:00 Test Item Value Reference Range Interpretation [...] Comments WBC (test code = WBC) 8.1 10\\S\\3/uL 4.5-11.0 RBC (test code = RBC) 4.10 10\\S\\6/uL 4.20-5.60 L HGB (test code = HBG) 12.3 g/dL 12.0-15.5 HCT (test code = HCT) 37.2 % 35.0-44.0 MCV (test code = MCV) 90.7 fL 81.0-99.0 MCH (test code = MCH) 30.0 pg 27.0-31.0 MCHC (test code = MCHC) 33.1 g/dL 32.0-36.0 RDW (test code = RDW) 13.4 % 11.5-14.5 PLT (test code = PLT) 322 10\\S\\3/uL 130-400 MPV (test code = MPV) 9.8 fL 9.4-12.4 NEUTROP # (test code = NE#) 6.8 10\\S\\3/uL 1.6-8.0 LYMPH # (test code = LY#) 1.1 10\\S\\3/uL 1.1-3.5 MONOCYTE # (test code = MO#) 0.2 10\\S\\3/uL 0.0-1.1 EOSINOPH # (test code = EO#) 0.0 10\\S\\3/uL 0.0-0.7 BASOPHIL # (test code = BA#) 0.0 10\\S\\3/uL 0.0-0.3 IG # (test code = IG#) 0.06 10\\S\\3/uL 0.00-0.06 NRBC # (test code = NRBC#) 0.00 10\\S\\3/uL 0.00-0.01 NEUTROPH % (test code = NE%) [...] MORPH (test code = RBCMOR) NORMAL CARDIAC [id number] 21:20:00 Test Item Value Reference Range Interpretation Comments TROPONIN I (test code = A84) <0.015 ng/mL 0.000-0.045 URINE [id number] 17:31:00 Test Item Value Reference Range Interpretation Comments PREG UR (test code = PGU) NEGATIVE NEGATIVE U/S [id number] 13:56:23EXAMINATION: U/S GALLBLADDER.LOCATION: D4.HISTORY: Right upper quadrant [...] 06/30/[address] ABDOMEN AND PELVIS WITH [id number] 12:09:32EXAMINATION: CT ABDOMEN AND PELVIS WITH CONTRAST.LOCATION: [...] consultation and colonoscopy.Bilateral nephrolithiasis.Atherosclerotic vascular calcifications.Arterial Blood [id number] 12:05:00 Test Item Value Reference Range Interpretation [...] FO2Hb (test code = 94.4 % 94.0-100.0 TP1ZSKY) FCOHb (test code = 0.6 % 0.0-3.0 FCOHBRT) FMetHb (test code = 1.1 % 0.2-0.6 H FMETHBRT) ABGTEMP (test code = * Temp Corrected Values* ABGTEMP) ABGTEMP (test code = 37.0 ?C ABGTEMP.) pH (T) (test code = 7.498 7.350-7.450 H PHTEMP) pCO2 (T) (test code = 31.4 mmHg 35.0-45.0 L BQG1FRVI) pO2 (T) (test code = 81.7 mmHg 80.0-110.0 CZ4JXBG) Device (test code = ROOM AIR DEVICE) [...] COMMENT (test code = CO) URINALYSIS WITH [id number] 11:20:00 Test Item Value Reference Range Interpretation [...] code = USPERM) /HPF NONE BRAIN NATRIURETIC [id number] 10:57:00 Test Item Value Reference Range Interpretation Comments proBNP (test code = PBNP) 436 pg/mL 0-125 H COMPREHENSIVE METABOLIC [id number] 10:56:00 Test Item Value Reference Range Interpretation [...] (test code = 31A) 19 IU/L <=78 [id number] 10:51:00 Test Item Value Reference Range Interpretation Comments CPK (test code = 32A) 129 IU/L 26-192 AMYLASE AND [id number] 10:51:00 Test Item Value Reference Range Interpretation Comments AMYLASE (test code = 10A) 23 U/L 28-100 L LIPASE (test code = 60A) 51 IU/L 73-393 L TROPONIN [id number] 10:50:00 Test Item Value Reference Range Interpretation Comments TROPONIN I (test code = A84) <0.015 ng/mL 0.000-0.045 PRO TIME AND [id number] 10:47:00 Test Item Value Reference Range Interpretation Comments PT (test code = 12.4 s 9.8-13.6 TT) INR (test code = 1.1 INR) INRH (test code = SUGGESTED THERAPEUTIC INRH) RANGE FOR INR: 2.5 - 3.5 For Patients with Prosthetic Valves or Patients with recurrent Thromboembolic Events 2.0 - 3.0 For Most Other Applications PTT (test code = 28.4 s 20.2-38.0 PTT) PTTH (test code = To monitor the PTTH) effectiveness of heparin, we offer the Anti-Xa (Heparin Assay). It can be used for either unfractionated or LMW Heparin. Order Code is ANTI-XA [id number] 10:47:00 Test Item Value Reference Range Interpretation Comments D-DIMER (test code = 209 ng/mL D-DU 0-234 DDI) D-DIMER COMMENT (test *Level to rule out code = DDCOM) DVT or PE: <235 ng/mL D-DU* DIRECT INFLUENZA A AND B [id number] 10:45:00 Test Item Value Reference Range Interpretation Comments Direct Exam (test PRESUMPTIVE NEGATIVE FOR code = DE1) THE PRESENCE OF INFLUENZA ANTIGEN XR CHEST 2 [id number] 10:41:59Exam: Chest x-ray 2 viewsHISTORY: Persistent coughLocation: [id number]:The heart size is normal and lung holcomb are clear. Osseous structures areintact.IMPRESSION:1. Normal chest. No change since CBC (INCLUDES AUTOMATED DIFFERENTIAL)2018-06-30 10:40:00 Test Item Value Reference Range Interpretation Comments WBC (test code = WBC) 7.3 10\\S\\3/uL 4.5-11.0 RBC (test code = RBC) 3.81 10\\S\\6/uL 4.20-5.60 L HGB (test code = HBG) 11.7 g/dL 12.0-15.5 L HCT (test code = HCT) 33.5 % 35.0-44.0 L MCV (test code = MCV) 87.9 fL 81.0-99.0 MCH (test code = MCH) 30.7 pg 27.0-31.0 MCHC (test code = MCHC) 34.9 g/dL 32.0-36.0 RDW (test code = RDW) 13.1 % 11.5-14.5 PLT (test code = PLT) 304 10\\S\\3/uL 130-400 MPV (test code = MPV) 9.8 fL 9.4-12.4 NEUTROP # (test code = NE#) 5.5 10\\S\\3/uL 1.6-8.0 LYMPH # (test code = LY#) 1.2 10\\S\\3/uL 1.1-3.5 MONOCYTE # (test code = MO#) 0.4 10\\S\\3/uL 0.0-1.1 EOSINOPH # (test code = EO#) 0.1 10\\S\\3/uL 0.0-0.7 BASOPHIL # (test code = BA#) 0.0 10\\S\\3/uL 0.0-0.3 IG # (test code = IG#) 0.02 10\\S\\3/uL 0.00-0.06 NRBC # (test code = NRBC#) 0.00 10\\S\\3/uL 0.00-0.01 NEUTROPH % (test code = NE%) [...] RBC MORPH (test code = RBCMOR) NORMAL [id number] 14:47:00 Test Item Value Reference Range Interpretation [...] NEGATIVE NEGATIVE XR FOOT RIGHT COMPLETE 3 [id number] 14:27:27Right foot, 3 viewsLocation Code: [id number] HISTORY: [id number]: PainCOMMENTS: AP, lateral, and oblique views of the right foot demonstrate noacute fracture or malalignment. Dorsal soft tissue swelling noted.IMPRESSION: No acute osseous radiographic abnormality. Dorsal soft tissueswelling.CT ABDOMEN AND PELVIS WITH [id number] 13:38:45CT abdomen and pelvis with contrastLocation Code: [id number] HISTORY: Abdominal painCOMPARISON: 02/10/2018Technique: Helical CT of the abdomen and pelvis was performed following theadministration of intravenous contrast. Thin section axial, sagittal andcoronal images were obtained. Automatic exposure co ntrol was utilized. TotalDLP: 1656 mGycmFINDINGS:Mild atelectasis is [...] fluid. Note ismade of a small sliding hiatalhernia.The abdominal aorta is normal in caliber and contour. There is noretroperitoneal mass or fluid collection. The urinary bladder is unremarkable.There is no pelvic mass or fluid collection. Mild degenerative changes are present throughout the spine. The skin, andsurrounding soft tissues are unremarkable.IMPRESSION:Mild thickening and inflammation of the proximal descending colon consistentwith colitis. There is no adjacent fluid collection or free air.CT HEAD W/O [id number] 13:19:29CT brain without contrast.Location code: [id number] HISTORY: R51: HEADACHE COMPARISON: None.TECHNIQUE: Routine unenhanced axial imaging of the brain was performed. Coronal and sagittal reformatted images were obtained, as well. Automaticexposure control was utilized. Total DLP: 835 mGycmFINDINGS: There is no acute intracranial hemorrhage or extra-axial collection.There is no hydrocephalus, midline shift, or space occupying mass. Johnson-whitematter differentiation is well preserved with no definite CT evidence of anacute infarct. The cranial vault and skull base are intact. The paranasal sinuses and mastoidair cells are pneumatized and well aerated. IMPRESSION: No acute intracranial abnormality.AMYLASE AND [id number] 13:05:00 Test Item Value Reference Range Interpretation Comments AMYLASE (test code = 10A) 36 U/L 28-100 LIPASE (test code = 60A) 67 IU/L 73-393 L COMPREHENSIVE METABOLIC [id number] 13:05:00 Test Item Value Reference Range Interpretation [...] (test code = 31A) 14 IU/L <=78 [id number] 13:05:00 Test Item Value Reference Range Interpretation Comments MAGNESIUM (test code = 48A) 2.1 mg/dL 1.8-2.4 SERUM [id number] 12:53:00 Test Item Value Reference Range Interpretation Comments PREG SRM (test code = PGS) NEGATIVE NEGATIVE URINALYSIS WITH [id number] 12:45:00 Test Item Value Reference Range Interpretation [...] = USPERM) /HPF NONE PRO TIME AND [id number] 12:43:00 Test Item Value Reference Range Interpretation Comments PT (test code = 11.9 s 9.8-13.6 TT) INR (test code = 1.0 INR) INRH (test code = SUGGESTED THERAPEUTIC INRH) RANGE FOR INR: 2.5 - 3.5 For [...] Comments WBC (test code = WBC) 8.8 10\\S\\3/uL 4.5-11.0 RBC (test code = RBC) 3.09 10\\S\\6/uL 4.20-5.60 L HGB (test code = HBG) 9.5 g/dL 12.0-15.5 L HCT (test code = HCT) 30.0 % 35.0-44.0 L MCV (test code = MCV) 97.1 fL 81.0-99.0 MCH (test code = MCH) 30.7 pg 27.0-31.0 MCHC (test code = MCHC) 31.7 g/dL 32.0-36.0 L RDW (test code = RDW) 14.9 % 11.5-14.5 H PLT (test code = PLT) 283 10\\S\\3/uL 130-400 MPV (test code = MPV) 8.8 fL 9.4-12.4 L NEUTROP # (test code = NE#) 5.3 10\\S\\3/uL 1.6-8.0 LYMPH # (test code = LY#) 2.4 10\\S\\3/uL 1.1-3.5 MONOCYTE # (test code = MO#) 0.7 10\\S\\3/uL 0.0-1.1 EOSINOPH # (test code = EO#) 0.3 10\\S\\3/uL 0.0-0.7 BASOPHIL # (test code = BA#) 0.0 10\\S\\3/uL 0.0-0.3 IG # (test code = IG#) 0.02 10\\S\\3/uL 0.00-0.06 NRBC # (test code = NRBC#) 0.00 10\\S\\3/uL 0.00-0.01 NEUTROPH % (test code = NE%) [...] MORPH (test code = RBCMOR) NORMAL BLOOD [id number] 07:45:00 Test Item Value Reference Range Interpretation Comments Culture Observations (test NO GROWTH AFTER 5 code = COB1) DAYS URINE [id number] 07:24:00 Test Item Value Reference Range Interpretation Comments Isolate 1 (test code Rhodotorula = ISO1) glutinis/mucilaginosa CBC (INCLUDES AUTOMATED DIFFERENTIAL)2018-02-15 06:29:00 Test Item Value Reference Range Interpretation Comments WBC (test code = WBC) 10.5 10\\S\\3/uL 4.5-11.0 RBC (test code = RBC) 2.76 10\\S\\6/uL 4.20-5.60 L HGB (test code = HBG) 8.6 g/dL 12.0-15.5 L HCT (test code = HCT) 26.4 % 35.0-44.0 L MCV (test code = MCV) 95.7 fL 81.0-99.0 MCH (test code = MCH) 31.2 pg 27.0-31.0 H MCHC (test code = MCHC) 32.6 g/dL 32.0-36.0 RDW (test code = RDW) 14.2 % 11.5-14.5 PLT (test code = PLT) 378 10\\S\\3/uL 130-400 MPV (test code = MPV) 10.0 fL 9.4-12.4 NEUTROP # (test code = NE#) 6.9 10\\S\\3/uL 1.6-8.0 LYMPH # (test code = LY#) 2.4 10\\S\\3/uL 1.1-3.5 MONOCYTE # (test code = MO#) 0.8 10\\S\\3/uL 0.0-1.1 EOSINOPH # (test code = EO#) 0.2 10\\S\\3/uL 0.0-0.7 BASOPHIL # (test code = BA#) 0.1 10\\S\\3/uL 0.0-0.3 IG # (test code = IG#) 0.16 10\\S\\3/uL 0.00-0.06 H NRBC # (test code = NRBC#) 0.00 10\\S\\3/uL 0.00-0.01 NEUTROPH % (test code = NE%) [...] RBC MORPH (test code = RBCMOR) NORMAL [id number] 06:25:00 Test Item Value Reference Range Interpretation Comments MAGNESIUM (test code = 48A) 1.5 mg/dL 1.8-2.4 L BASIC METABOLIC [id number] 06:16:00 Test Item Value Reference Range Interpretation [...] 8.3-9.5 L NM HIDA SCAN W/ EJECTION [id number] 18:10:25HIDA scanLocation code: [id number] history: Right upper quadrant painComments: Following the [...] minutes.Impression:1. No evidence of acute cholecystitis.BASIC METABOLIC [id number] 04:35:00 Test Item Value Reference Range Interpretation [...] Comments WBC (test code = WBC) 14.0 10\\S\\3/uL 4.5-11.0 H RBC (test code = RBC) 3.22 10\\S\\6/uL 4.20-5.60 L HGB (test code = HBG) 9.7 g/dL 12.0-15.5 L HCT (test code = HCT) 30.8 % 35.0-44.0 L MCV (test code = MCV) 95.7 fL 81.0-99.0 MCH (test code = MCH) 30.1 pg 27.0-31.0 MCHC (test code = MCHC) 31.5 g/dL 32.0-36.0 L RDW (test code = RDW) 14.2 % 11.5-14.5 PLT (test code = PLT) 436 10\\S\\3/uL 130-400 H MPV (test code = MPV) 9.8 fL 9.4-12.4 NEUTROP # (test code = NE#) 10.1 10\\S\\3/uL 1.6-8.0 H LYMPH # (test code = LY#) 2.5 10\\S\\3/uL 1.1-3.5 MONOCYTE # (test code = MO#) 1.0 10\\S\\3/uL 0.0-1.1 EOSINOPH # (test code = EO#) 0.1 10\\S\\3/uL 0.0-0.7 BASOPHIL # (test code = BA#) 0.0 10\\S\\3/uL 0.0-0.3 IG # (test code = IG#) 0.29 10\\S\\3/uL 0.00-0.06 H NRBC # (test code = NRBC#) 0.00 10\\S\\3/uL 0.00-0.01 NEUTROPH % (test code = NE%) [...] MORPH (test code = RBCMOR) NORMAL LACTIC [id number] 17:33:00 Test Item Value Reference Range Interpretation Comments LACTIC ACD (test code = LA) 1.8 mmol/L 0.4-2.0 U/S [id number] 15:35:17LOCATION: [id number]: 47-year-old female with nausea and vomiting.COMMENT:Sonographic imaging [...] appearance of the abdomen is unremarkable.BASIC METABOLIC [id number] 07:27:00 Test Item Value Reference Range Interpretation [...] Comments WBC (test code = WBC) 15.0 10\\S\\3/uL 4.5-11.0 H RBC (test code = RBC) 2.91 10\\S\\6/uL 4.20-5.60 L HGB (test code = HBG) 8.8 g/dL 12.0-15.5 L HCT (test code = HCT) 27.3 % 35.0-44.0 L MCV (test code = MCV) 93.8 fL 81.0-99.0 MCH (test code = MCH) 30.2 pg 27.0-31.0 MCHC (test code = MCHC) 32.2 g/dL 32.0-36.0 RDW (test code = RDW) 14.1 % 11.5-14.5 PLT (test code = PLT) 380 10\\S\\3/uL 130-400 MPV (test code = MPV) 9.9 fL 9.4-12.4 NEUTROP # (test code = NE#) 10.4 10\\S\\3/uL 1.6-8.0 H LYMPH # (test code = LY#) 3.0 10\\S\\3/uL 1.1-3.5 MONOCYTE # (test code = MO#) 1.2 10\\S\\3/uL 0.0-1.1 H EOSINOPH # (test code = EO#) 0.1 10\\S\\3/uL 0.0-0.7 BASOPHIL # (test code = BA#) 0.0 10\\S\\3/uL 0.0-0.3 IG # (test code = IG#) 0.31 10\\S\\3/uL 0.00-0.06 H NRBC # (test code = NRBC#) 0.00 10\\S\\3/uL 0.00-0.01 NEUTROPH % (test code = NE%) [...] (test code = RBCMOR) NORMAL URINALYSIS WITH [id number] 23:20:00 Test Item Value Reference Range Interpretation [...] USPERM) /HPF NONE XR CHEST 1 VIEW [id number] 16:08:04HISTORY: DyspneaLocation code: [id number] 10 February 2018FINDINGS: Frontal view of the chest demonstrates normal cardiomediastinalsilhouette. The trachea is midline. Minimal bibasilar atelectasis. Thelungsare otherwise clear. There is no effusion or pneumothorax. The bones areintact.IMPRESSION: Minimal bibasilar atelectasis.CLOSTRIDIUM DIFFICILE [id number] 11:11:00 Test Item Value Reference Range Interpretation Comments Direct Exam (test NO CLOSTRIDIUM DIFFICILE code = DE1) TOXIN A/B DETECTED CBC WITH MANUAL [id number] 07:39:00 Test Item Value Reference Range Interpretation Comments WBC (test code = 25.4 10\\S\\3/uL 4.5-11.0 HH WBC) RBC (test code = 3.39 10\\S\\6/uL 4.20-5.60 L RBC) HGB (test code = 10.3 g/dL 12.0-15.5 L HBG) HCT (test code = 31.3 % 35.0-44.0 L HCT) MCV (test code = 92.3 fL 81.0-99.0 MCV) MCH (test code = 30.4 pg 27.0-31.0 MCH) MCHC (test code 32.9 g/dL 32.0-36.0 = MCHC) RDW (test code = 14.2 % 11.5-14.5 RDW) PLT (test code = 479 10\\S\\3/uL 130-400 H PLT) MPV (test code = 9.8 fL 9.4-12.4 MPV) NEUTROP # (test 20.8 10\\S\\3/uL 1.6-8.0 H code = NE#) LYMPH # (test 2.2 10\\S\\3/uL 1.1-3.5 code = LY#) MONOCYTE # (test 1.2 10\\S\\3/uL 0.0-1.1 H code = MO#) EOSINOPH # (test 0.0 10\\S\\3/uL 0.0-0.7 code = EO#) BASOPHIL # (test 0.1 10\\S\\3/uL 0.0-0.3 code = BA#) IG # (test code 1.13 10\\S\\3/uL 0.00-0.06 H = IG#) NRBC # (test 0.00 10\\S\\3/uL 0.00-0.01 code = NRBC#) NEUTROPH % (test [...] lts code = PLTMOR) um) BASIC METABOLIC [id number] 06:01:00 Test Item Value Reference Range Interpretation [...] 09D) 8.8 mg/dL 8.3-9.5 CBC WITH MANUAL [id number] 07:18:00 Test Item Value Reference Range Interpretation Comments WBC (test code = WBC) 19.5 10\\S\\3/uL 4.5-11.0 H RBC (test code = RBC) 3.19 10\\S\\6/uL 4.20-5.60 L HGB (test code = HBG) 9.9 g/dL 12.0-15.5 L HCT (test code = HCT) 29.5 % 35.0-44.0 L MCV (test code = MCV) 92.5 fL 81.0-99.0 MCH (test code = MCH) 31.0 pg 27.0-31.0 MCHC (test code = MCHC) 33.6 g/dL 32.0-36.0 RDW (test code = RDW) 13.8 % 11.5-14.5 PLT (test code = PLT) 435 10\\S\\3/uL 130-400 H MPV (test code = MPV) 9.7 fL 9.4-12.4 NEUTROP # (test code = 15.1 10\\S\\3/uL 1.6-8.0 H NE#) LYMPH # (test code = 1.8 10\\S\\3/uL 1.1-3.5 LY#) MONOCYTE # (test code = 1.0 10\\S\\3/uL 0.0-1.1 MO#) EOSINOPH # (test code = 0.0 10\\S\\3/uL 0.0-0.7 EO#) BASOPHIL # (test code = 0.1 10\\S\\3/uL 0.0-0.3 BA#) IG # (test code = IG#) 1.50 10\\S\\3/uL 0.00-0.06 H NRBC # (test code = 0.00 10\\S\\3/uL 0.00-0.01 NRBC#) NEUTROPH % (test code = [...] = 1+ NONE A MICRO) BASIC METABOLIC [id number] 05:48:00 Test Item Value Reference Range Interpretation [...] 09D) 8.8 mg/dL 8.3-9.5 MRI BRAIN W/O [id number] 18:15:41LOCATION: A1EXAM: MRI BRAIN W/O CONTRASTINDICATION: R51: [...] acute stroke. No acute abnormality.XR CENTRAL LINE [id number] 16:06:23EXAMINATION: NON- TUNNELED CENTRAL VENOUS CATHETER PLACEMENT.LOCATION: D4.HISTORY: The her central venous accessSEDATION: The patient did not require conscious sedation for the procedure.ANTIBIOTICS: None. Not indicated.TECHNIQUE: The risks, benefits, and alternatives were discussed and informedconsentwas obtained. Prior to beginning the procedure, [place] Protocol wasused to confirm the patient's identity and planned procedure. Maximum sterilebarriers including cap, mask, hand hygiene, sterile gloves, sterile gown, largesterile drape and cutaneous antisepsis [...] the guidewire. The catheter was flushed and securedin place. A steriledressing was applied. ESTIMATED BLOOD LOSS: Less than 30 milliliters.COMPLICATIONS: None.DISCHARGED TO: Done at bedside.FINDINGS: Ultrasound demonstrates a patent right internal jugular vein.Postplacement radiograph demonstrates the catheter with its tip centrallylocated. No complica tions are seen.IMPRESSION: Successful non-tunneled triple lumen central venous catheterplacement viathe right internal jugular vein.PLAN: The catheter is ready for immediate use. When treatment is completed,this catheter can be removed at the bedside according to standard hospitalprotocol.U/S [id number] 16:06:23EXAMINATION: NON-TUNNELED CENTRAL VENOUS CATHETER PLACEMENT.LOCATION: D4.HISTORY: The her central venous accessSEDATION: The patient did not require conscious sedation for the procedure.ANTIBIOTICS: None. Not indicated.TECHNIQUE: The risks, benefits, and alternatives were discussed and informedconsentwas obtained. Prior to beginning the procedure, [place] Protocol wasused to confirm the patient's identity and planned procedure. Maximum sterilebarriers including cap, mask, hand hygiene, sterile gloves, sterile gown, largesterile drape and cutaneous antisepsis were used.The skin over the right internal jugular vein was sterilely prepped, draped,and infiltrated with lidocaine.Prior to the procedure, the target vessel was evaluated by ultrasound. Animage of the patent vessel was recorded and savedto PACS. After sterile prep,this vessel was accessed with a micropuncture needle using real-time ultrasoundguidance. A guidewire and catheter were then passed centrally.After dilating the tract, a triple lumen central venous catheter was insertedover the guidewire. The catheter was flushed and securedin place. A steriledressing was applied. ESTIMATED BLOOD LOSS: Less than 30 milliliters.COMPLICATIONS: None.DISCHARGED TO: Done at bedside.FINDINGS: Ultrasound demonstrates a patent right internal jugular vein.Postplacement radiograph demonstrates the catheter with its tip centrallylocated. No complications are seen.IMPRESSION: Successful non-tunneled triple lumen central venous catheterplacement viathe right internal jugular vein.PLAN: The catheter is ready for immediate use. When treatment is comp leted,this catheter can be removed at the bedside according to standard hospitalprotocol.CT ABDOMEN AND PELVIS WITH AND WITHOUT [id number] 15:59:28 Exam: CT abdomen and pelvis with and without contrast.Location: D4.History: [id number]: Abdominal [id number]: VomitingTechnique: Unenhanced and enhanced spiral slices were [...] enteritis.3. Nephrolithiasis.4. Small, fixed hiatalhernia.XR CHEST 1 [id number] 08:54:41Portable AP chest, 1 viewLocation Code: [id number] HISTORY: Chest painCOMPARISON: NoneCOMMENT: There is mild prominence of the central pulmonary vasculature and interstitium.Mild atelectasis is presentwithin the lung bases. There is no lobarconsolidation or effusion. IMPRESSION: Mild central congestive changes and bibasilar atelectasis. XR ABDOMEN 1 VIEW [id number] 08:54:16Abdomen, 1 viewLocation Code: T8Arcrimtm history: Lower abdominal painComments: The bowel gas pattern is unremarkable. There is no visualizedabnormal calcification. The visualized osseous structures are intact.Impression: No acute radiographic abnormality. GLUCOMETER GLUCOSE- LAB USE [id number] 07:50:00 Test Item Value Reference Range Interpretation Comments GLUCOMETER (test code 157 mg/dL 70-100 H CLEANE D METERMeter ID: = GMG) [id number] tor: [id number] СВЕТЛАНА [place] ES CBC WITH MANUAL [id number] 06:57:00 Test Item Value Reference Range Interpretation Comments WBC (test code = WBC) 19.4 10\\S\\3/uL 4.5-11.0 H RBC (test code = RBC) 3.66 10\\S\\6/uL 4.20-5.60 L HGB (test code = HBG) 11.2 g/dL 12.0-15.5 L HCT (test code = HCT) 34.4 % 35.0-44.0 L MCV (test code = MCV) 94.0 fL 81.0-99.0 MCH (test code = MCH) 30.6 pg 27.0-31.0 MCHC (test code = MCHC) 32.6 g/dL 32.0-36.0 RDW (test code = RDW) 14.1 % 11.5-14.5 PLT (test code = PLT) 362 10\\S\\3/uL 130-400 MPV (test code = MPV) 10.3 fL 9.4-12.4 NEUTROP # (test code = 15.9 10\\S\\3/uL 1.6-8.0 H NE#) LYMPH # (test code = 1.3 10\\S\\3/uL 1.1-3.5 LY#) MONOCYTE # (test code = 0.4 10\\S\\3/uL 0.0-1.1 MO#) EOSINOPH # (test code = 0.0 10\\S\\3/uL 0.0-0.7 EO#) BASOPHIL # (test code = 0.2 10\\S\\3/uL 0.0-0.3 BA#) IG # (test code = IG#) 1.65 10\\S\\3/uL 0.00-0.06 H NRBC # (test code = 0.00 10\\S\\3/uL 0.00-0.01 NRBC#) NEUTROPH % (test code = [...] code = 1+ NONE A MACRO) TROPONIN [id number] 05:58:00 Test Item Value Reference Range Interpretation Comments TROPONIN I (test code = A84) <0.015 ng/mL 0.000-0.045 COMPREHENSIVE METABOLIC [id number] 05:44:00 Test Item Value Reference Range Interpretation [...] 13 IU/L <=78 GLUCOMETER GLUCOSE- LAB USE [id number] 01:52:00 Test Item Value Reference Range Interpretation Comments GLUCOMETER (test code = 110 mg/dL 70-100 H Mete r ID: GMG) [id number] tor: [id number] GAIL DARO Y TROPONIN [id number] 00:02:00 Test Item Value Reference Range Interpretation Comments TROPONIN I (test code = A84) <0.015 ng/mL 0.000-0.045 CARDIAC [id number] 20:58:00 Test Item Value Reference Range Interpretation Comments Troponin-I (test code no gt See_Comment [Auto mated message] The = Troponin-I) system which g enerated this result transmit mirna reference range : <=0.40. The reference r chuck was not used to interpr et this result as zahra l/abnormal. [facility] [employer] GamesannCARDIAC [id number] 20:58:00 Test Item Value Reference Range Interpretation Comments CK MB (test code = CK MB) no gt 0.5-3.6 [facility] HermannCARDIAC [id number] 20:58:00 Test Item Value Reference Range Interpretation Comments Total CK (test code = Total CK) 32 12-191 [facility] HermannCARDIAC [id number] 20:58:00 Test Item Value Reference Range Interpretation Comments CK MB Index (test no gt See_Comment [Automate d message] The code = CK MB Index) system w [facility] generated this result transmit mirna reference range : <=2.5. The reference range was not used to interpr et this result as zahra l/abnormal. [facility] [employer] GamesannCHEM [id number] 20:58:00 Test Item Value Reference Range Interpretation Comments Magnesium Lvl (test code = Magnesium 1.7 1.8-2.4 Lvl) [facility]2018-08-15 20:58:00 Test Item Value Reference Range Interpretation Comments eGFR (test code = eGFR) 73 [facility]2018-08-15 20:58:00 Test Item Value Reference Range Interpretation Comments AGAP (test code = AGAP) 14.6 10.0-20.0 [facility]2018-08-15 20:58:00 Test Item Value Reference Range Interpretation Comments Bili Total (test code = Bili Total) 0.5 0.2-1.3 [facility]2018-08-15 20:58:00 Test Item Value Reference Range Interpretation Comments B/C Ratio (test code = B/C Ratio) 40 1 6-25 [facility]2018-08-15 20:58:00 Test Item Value Reference Range Interpretation Comments Globulin (test code = Globulin) 4.8 2.7-4.2 [facility]2018-08-15 20:58:00 Test Item Value Reference Range Interpretation Comments A/G Ratio (test code = A/G Ratio) 0.5 1 0.7-1.6 [facility]2018-08-15 20:58:00 Test Item Value Reference Range Interpretation Comments AST (test code = AST) 7 See_Comment [Auto mated message] The system which ge nerated this result transmit mirna reference range : <=37. The reference range was not used to interpr et this result as zahra l/abnormal. [facility]2018-08-15 20:58:00 Test Item Value Reference Range Interpretation Comments Alk Phos (test code = Alk Phos) 79 39-136 [facility]2018-08-15 20:58:00 Test Item Value Reference Range Interpretation Comments Calcium Lvl (test code = Calcium Lvl) 8.8 8.5-10.5 [facility]2018-08-15 20:58:00 Test Item Value Reference Range Interpretation Comments Total Protein (test code = Total 7.3 6.4-8.4 Protein) [facility]2018-08-15 20:58:00 Test Item Value Reference Range Interpretation Comments Albumin Lvl (test code = Albumin Lvl) 2.5 3.5-5.0 [facility]2018-08-15 20:58:00 Test Item Value Reference Range Interpretation Comments ALT (test code = ALT) 13 See_Comment [Auto mated message] The system which ge nerated this result transmit mirna reference range : <=65. The reference range was not used to interpr et this result as zahra l/abnormal. [facility]2018-08-15 20:58:00 Test Item Value Reference Range Interpretation Comments Potassium Lvl (test code = Potassium 3.6 3.5-5.1 Lvl) [facility]2018-08-15 20:58:00 Test Item Value Reference Range Interpretation Comments Chloride Lvl (test code = Chloride Lvl) 113 95-109 [facility]2018-08-15 20:58:00 Test Item Value Reference Range Interpretation Comments CO2 (test code = CO2) 14 24-32 [facility]2018-08-15 20:58:00 Test Item Value Reference Range Interpretation Comments Glucose Lvl (test code = Glucose Lvl) 87 70-99 [facility]2018-08-15 20:58:00 Test Item Value Reference Range Interpretation Comments Sodium Lvl (test code = Sodium Lvl) 138 135-145 [facility]2018-08-15 20:58:00 Test Item Value Reference Range Interpretation Comments BUN (test code = BUN) 37 7-22 [facility]2018-08-15 20:58:00 Test Item Value Reference Range Interpretation Comments Creatinine Lvl (test code = Creatinine 0.93 0.50-1.40 Lvl) [facility]2018-08-15 20:58:00 Test Item Value Reference Range Interpretation Comments Lipase Lvl (test code = Lipase Lvl) 397 42-393 [facility]SvfmrtsYIRLTREVQMDZV6177-37-21 20:58:00 Test Item Value Reference Range Interpretation Comments S Preg (test code = S Negative *NA*(02/09/18 Preg) 3:58 PM) [facility] HospitalB[id number] 20:58:00 Test Item Value Reference Range Interpretation Comments MCHC (test code = MCHC) 33.8 32.0-36.0 [facility] HospitalGvyqqxnBTUPVQSJXQ8256-82-32 20:58:00 Test Item Value Reference Range Interpretation Comments RDW (test code = RDW) 14.3 11.5-14.5 [facility] HospitalPtghdqqXOHVYXZLXZ5654-88-16 20:58:00 Test Item Value Reference Range Interpretation Comments MCH (test code = MCH) 32.1 pg 27.0-31.0 [facility] HospitalEqlipknDYHTUCLWOU5086-72-66 20:58:00 Test Item Value Reference Range Interpretation Comments Hct (test code = Hct) 33.1 36.0-48.0 [facility] HospitalKdbaudaORYZAXAZPU4429-94-43 20:58:00 Test Item Value Reference Range Interpretation Comments WBC (test code = WBC) 15.9 3.7-10.4 [facility] HospitalQlfjzxoMGSSKLQEFG9663-28-07 20:58:00 Test Item Value Reference Range Interpretation Comments Hgb (test code = Hgb) 11.2 12.0-16.0 [facility] HospitalPpxfiozVWFXTQIQIG1486-29-61 20:58:00 Test Item Value Reference Range Interpretation Comments MCV (test code = MCV) 94.8 80.0-98.0 [facility] HospitalXrcgdggTWBFCJXNJE7588-06-69 20:58:00 Test Item Value Reference Range Interpretation Comments RBC (test code = RBC) 3.49 4.20-5.40 [facility] HospitalOottgevMHCGWVANFO6595-99-41 20:58:00 Test Item Value Reference Range Interpretation Comments MPV (test code = MPV) 7.7 7.4-10.4 [facility] HospitalUeqtstgDVDCHDJIBZ2802-70-58 20:58:00 Test Item Value Reference Range Interpretation Comments Platelet (test code = Platelet) 226 133-450 [facility] HospitalOzbfrpxFERNMDGTBJ3167-69-58 20:58:00 Test Item Value Reference Range Interpretation Comments Monocytes # (test code 0.3 See_Comment [Aut omated message] The = Monocytes #) system which generated this result tra nsmitted reference range : <=0.8. The reference r chuck was not used to int erpret this result as normal/abnormal . [facility] HospitalRttcojeMPUNDREZEJ2636-17-77 20:58:00 Test Item Value Reference Range Interpretation Comments Neutrophils # (test code = Neutrophils 13.2 1.5-8.1 #) [facility] HospitalBwuxsmiRKGNOVXZYT4087-71-72 20:58:00 Test Item Value Reference Range Interpretation Comments Lymphocytes # (test code = Lymphocytes 2.4 1.0-5.5 #) [facility] HospitalIhsaalsPISIOFCETB0432-23-74 20:58:00 Test Item Value Reference Range Interpretation Comments Hypochrom (test code = 1+ (02/09/18 3:58 PM) Hypochrom) [facility] HospitalJhcxureZANTZSUHHA4724-05-99 20:58:00 Test Item Value Reference Range Interpretation Comments RBC Morph (test code = Normal (02/09/18 3:58 RBC Morph) PM) [facility] HospitalNbmcpbuLXLVQDEYSN3996-57-38 20:58:00 Test Item Value Reference Range Interpretation Comments Tot Cell Ct (test code = Tot Cell Ct) 100 1 [facility] HospitalVkrxmqeSBIVPNLGOC8375-01-43 20:58:00 Test Item Value Reference Range Interpretation Comments Monocytes (test code = Monocytes) 2.0 2.0-12.0 [facility] H[id number] 20:58:00 Test Item Value Reference Range Interpretation Comments Bands (test code = 1.0 See_Comment [Automat ed message] The Bands) system which ge nerated this result transmit mirna reference range : <=11.0. The reference r chuck was not used to interpr et this result as zahra l/abnormal. [facility] HospitalWcozievCLMHCEVTDI0407-15-93 20:58:00 Test Item Value Reference Range Interpretation Comments Segs (test code = Segs) 82.0 45.0-75.0 [facility] HospitalYmgcediHVSUSKQYPQ5911-58-82 20:58:00 Test Item Value Reference Range Interpretation Comments Lymphocytes (test code = Lymphocytes) 15.0 20.0-40.0 [facility] HospitalPktkbmcNARQZDBIGE2385-05-42 20:58:00 Test Item Value Reference Range Interpretation Comments Plt Morph (test code = Normal (02/09/18 3:58 Plt Morph) PM) [facility]MONTSEZOLIN:SUSC:PT:ISOLATE:ORDQN:[id number] 20:38:00 Test Item Value Reference Range Interpretation Comments Culture: Urine (test >100,000 CFU/mL code = Culture: Escherichia coli <10,000 Urine) CFU/mL Skin Manasa [facility]aleIVIS:SUSC:PT:ISOLATE:ORDQN:[id number] 20:38:00 Test Item Value Reference Range Interpretation Comments Escherichia coli (test code Escherichia coli = Escherichia coli) [facility] AND [id number] 20:38:00 Test Item Value Reference Range Interpretation Comments UA Urobilinogen (test code = UA <=1.0 mg/dL 0.1-1.0 Urobilinogen) [facility] AND [id number] 20:38:00 Test Item Value Reference Range Interpretation Comments UA Bacteria (test code = UA Occasional /HPF Bacteria) [facility] AND [id number] 20:38:00 Test Item Value Reference Range Interpretation Comments UA Leuk Est (test code Large *ABN*(02/09/18 = UA Leuk Est) 3:38 PM) [facility] AND [id number] 20:38:00 Test Item Value Reference Range Interpretation Comments UA Sq Epi (test code = UA Sq Epi) Many /LPF [facility] AND [id number] 20:38:00 Test Item Value Reference Range Interpretation Comments UA Nitrite (test code Negative (02/09/18 3:38 = UA Nitrite) PM) [facility] AND [id number] 20:38:00 Test Item Value Reference Range Interpretation Comments UA RBC (test code = 5 See_Comment [Automa mirna message] The UA RBC) system which ge nerated this result transmit mirna reference range : <=2. The reference range was not used to interpr et this result as zahra l/abnormal. [facility] AND [id number] 20:38:00 Test Item Value Reference Range Interpretation Comments UA WBC (test code = 13 See_Comment [Automa mirna message] The UA WBC) system which ge nerated this result transmit mirna reference range : <=5. The reference range was not used to interpr et this result as zahra l/abnormal. [facility] AND [id number] 20:38:00 Test Item Value Reference Range Interpretation Comments UA Glucose (test code = UA Negative mg/dL Glucose) [facility] AND [id number] 20:38:00 Test Item Value Reference Range Interpretation Comments UA Spec Grav (test code = UA Spec 1.015 1 Grav) [facility] AND [id number] 20:38:00 Test Item Value Reference Range Interpretation Comments UA Protein (test code = UA Protein) 30 mg/dL [facility] AND [id number] 20:38:00 Test Item Value Reference Range Interpretation Comments UA pH (test code = UA pH) 5.0 1 5.0-8.0 [facility] AND [id number] 20:38:00 Test Item Value Reference Range Interpretation Comments UA Bili (test code = Negative *NA*(02/09/18 UA Bili) 3:38 PM) [facility] AND [id number] 20:38:00 Test Item Value Reference Range Interpretation Comments UA Ketones (test code = UA Trace mg/dL Ketones) [facility] AND [id number] 20:38:00 Test Item Value Reference Range Interpretation Comments UA Blood (test code = Small *ABN*(02/09/18 UA Blood) 3:38 PM) [facility] AND [id number] 20:38:00 Test Item Value Reference Range Interpretation Comments UA Color (test code = Yellow *NA*(02/09/18 UA Color) 3:38 PM) [facility] AND [id number] 20:38:00 Test Item Value Reference Range Interpretation Comments UA Turbidity (test code Slight *ABN*(02/09/18 = UA Turbidity) 3:38 PM) [id number] 15:30:00 Test Item Value Reference Range Interpretation Comments AGAP (test code = AGAP) 12.8 10.0-20.0 [facility] HospitalKmcvguvNAZFYFQWHRYS2322-10-24 15:30:00 Test Item Value Reference Range Interpretation Comments A/G Ratio (test code = A/G Ratio) 0.8 1 0.7-1.6 [facility] HospitalRkajubnFUQDRRYHTNGW5317-76-80 15:30:00 Test Item Value Reference Range Interpretation Comments B/C Ratio (test code = B/C Ratio) 14 1 6-25 [facility] HospitalGlxuxhlERXSLHIFCWYV7581-28-09 15:30:00 Test Item Value Reference Range Interpretation Comments Globulin (test code = Globulin) 4.3 2.7-4.2 [facility] HospitalHfkqjekDACDAHPLACQX0254-34-16 15:30:00 Test Item Value Reference Range Interpretation Comments eGFR (test code = eGFR) 72 [facility] HospitalGbuktwyHQUUNUQTWVVI6725-53-20 15:30:00 Test Item Value Reference Range Interpretation Comments Glucose Lvl (test code = Glucose Lvl) 86 70-99 [facility] HospitalCpfqvkhBLWWRBKSVVFT7979-04-72 15:30:00 Test Item Value Reference Range Interpretation Comments Creatinine Lvl (test code = Creatinine 0.94 0.50-1.40 Lvl) [facility] HospitalLjiojzbPJPUOGOJEXKV5835-00-22 15:30:00 Test Item Value Reference Range Interpretation Comments BUN (test code = BUN) 13 7-22 [facility] HospitalKcjnefdQUKLIGARQQMP1389-37-96 15:30:00 Test Item Value Reference Range Interpretation Comments Bili Total (test code = Bili Total) 0.4 0.2-1.3 [facility] HospitalAhhsmdqAJANXKVQQAQI7891-28-97 15:30:00 Test Item Value Reference Range Interpretation Comments Potassium Lvl (test code = Potassium 3.8 3.5-5.1 Lvl) [facility] HospitalUrhxqywOJMCNYGEFCJO6304-45-82 15:30:00 Test Item Value Reference Range Interpretation Comments Sodium Lvl (test code = Sodium Lvl) 140 135-145 [facility] HospitalLhudwslIISOJJEDURBK7484-24-20 15:30:00 Test Item Value Reference Range Interpretation Comments Calcium Lvl (test code = Calcium Lvl) 9.1 8.5-10.5 [facility] HospitalLpdmydsLMPEUXEXNPEN3969-45-09 15:30:00 Test Item Value Reference Range Interpretation Comments Chloride Lvl (test code = Chloride Lvl) 109 95-109 [facility] HospitalZguzsxnYUYZNJRDUWNP2790-54-05 15:30:00 Test Item Value Reference Range Interpretation Comments Alk Phos (test code = Alk Phos) 78 39-136 [facility] HospitalUynktkhRNUYVQSJSYVT8436-33-65 15:30:00 Test Item Value Reference Range Interpretation Comments ALT (test code = ALT) 16 See_Comment [Auto mated message] The system which ge nerated this result transmit mirna reference range : <=65. The reference range was not used to interpr et this result as zahra l/abnormal. [facility] HospitalExeczdoTHEXZQIKKLJR5322-90-65 15:30:00 Test Item Value Reference Range Interpretation Comments AST (test code = AST) 26 See_Comment [Auto mated message] The system which ge nerated this result transmit mirna reference range : <=37. The reference range was not used to interpr et this result as zahra l/abnormal. [facility] HospitalDrwtwpyTXMOAKAQLITE5992-96-41 15:30:00 Test Item Value Reference Range Interpretation Comments Albumin Lvl (test code = Albumin Lvl) 3.6 3.5-5.0 [facility] HospitalEgjclgqMJCHKOSMTXDQ9589-05-81 15:30:00 Test Item Value Reference Range Interpretation Comments Total Protein (test code = Total 7.9 6.4-8.4 Protein) [facility] HospitalOesfaflLAAHMOCISSTR0674-95-93 15:30:00 Test Item Value Reference Range Interpretation Comments CO2 (test code = CO2) [place] [id number] 15:30:00 Test Item Value Reference Range Interpretation Comments S Preg (test code = S Negative *NA*(01/25/18 Preg) 10:30 AM) [facility] HospitalKwqwwrzELJXOUTRWM9113-73-30 15:30:00 Test Item Value Reference Range Interpretation Comments Monocytes # (test code 0.4 See_Comment [Aut omated message] The = Monocytes #) system which generated this result tra nsmitted reference range : <=0.8. The reference r chuck was not used to int erpret this result as normal/abnormal . [facility] HospitalCmsjejsDNGJTKHFCK1053-01-14 15:30:00 Test Item Value Reference Range Interpretation Comments Eosinophils # (test code 0.4 See_Comment [A utomated message] The = Eosinophils #) system whic h generated this result tra nsmitted reference range : <=0.5. The reference r chuck was not used to int erpret this result as normal/abnormal . [facility] HospitalZsqwwemIGLRWUHSME6145-47-20 15:30:00 Test Item Value Reference Range Interpretation Comments Lymphocytes # (test code = Lymphocytes 2.1 1.0-5.5 #) [facility] HospitalCvdfksxEUCHGTSOGW0618-56-64 15:30:00 Test Item Value Reference Range Interpretation Comments Neutrophils # (test code = Neutrophils 5.3 1.5-8.1 #) [facility] HospitalMhngeccMNQJWXPGHI3531-83-24 15:30:00 Test Item Value Reference Range Interpretation Comments Plt Morph (test code = Normal (01/25/18 10:30 Plt Morph) AM) [facility] HospitalSadjumiOSAAMDELKS2998-19-08 15:30:00 Test Item Value Reference Range Interpretation Comments Basophils # (test code 0.0 See_Comment [Aut omated message] The = Basophils #) system which generated this result tra nsmitted reference range : <=0.2. The reference r chuck was not used to int erpret this result as normal/abnormal . [facility] HospitalWmtmdekEZRCTVVKFM0766-66-12 15:30:00 Test Item Value Reference Range Interpretation Comments Basophils (test code = 0.5 See_Comment [Aut omated message] The Basophils) system which ge nerated this result tra nsmitted reference range : <=1.0. The reference r chuck was not used to int erpret this result as normal/abnormal . [facility] HospitalOwnirqsFKDEMCGICX5477-45-53 15:30:00 Test Item Value Reference Range Interpretation Comments Eosinophils (test code = 5.4 See_Comment [A utomated message] The Eosinophils) system which ge nerated this result tra nsmitted reference range : <=4.0. The reference r chuck was not used to int erpret this result as normal/abnormal . [facility] HospitalIbadmpzSHHXIEYQGY0729-41-98 15:30:00 Test Item Value Reference Range Interpretation Comments RBC Morph (test code = Normal (01/25/18 10:30 RBC Morph) AM) [facility] HospitalTqpxbciGNAPYRGYZX9337-81-05 15:30:00 Test Item Value Reference Range Interpretation Comments Segs (test code = Segs) 64.1 45.0-75.0 [facility] HospitalKhcqaocMUPPTTBAKH2073-85-67 15:30:00 Test Item Value Reference Range Interpretation Comments Lymphocytes (test code = Lymphocytes) 25.5 20.0-40.0 [facility] HospitalWwhejfpZHEAWNFLYM5480-02-41 15:30:00 Test Item Value Reference Range Interpretation Comments Monocytes (test code = Monocytes) 4.5 2.0-12.0 [facility] HospitalPzpoyzaAPIWXMYUSZ4862-14-08 15:30:00 Test Item Value Reference Range Interpretation Comments MCV (test code = MCV) 94.9 80.0-98.0 [facility] HospitalNvisgttGGQRCCXLUN3703-70-96 15:30:00 Test Item Value Reference Range Interpretation Comments MCH (test code = MCH) 31.3 pg 27.0-31.0 [facility] HospitalHdejwrzMXFYKOTCIQ9501-34-72 15:30:00 Test Item Value Reference Range Interpretation Comments MCHC (test code = MCHC) 33.0 32.0-36.0 [facility] HospitalCnkkbpaSNPHFIEOTK2798-92-01 15:30:00 Test Item Value Reference Range Interpretation Comments RDW (test code = RDW) 12.9 11.5-14.5 [facility] HospitalWldoxfnNLXUEWPKZH6433-19-29 15:30:00 Test Item Value Reference Range Interpretation Comments Platelet (test code = Platelet) 350 133-450 [facility] HospitalPxtmenuQBHFWLFYKW3569-76-63 15:30:00 Test Item Value Reference Range Interpretation Comments MPV (test code = MPV) 8.8 7.4-10.4 [facility] HospitalSmliyusYHIJTNMBWR2897-86-31 15:30:00 Test Item Value Reference Range Interpretation Comments WBC (test code = WBC) 8.3 3.7-10.4 [facility] HospitalAhwtrriEETXTPEUYZ6729-08-22 15:30:00 Test Item Value Reference Range Interpretation Comments RBC (test code = RBC) 4.09 4.20-5.40 [facility] HospitalSggavpgCABXQZDRBG7838-27-31 15:30:00 Test Item Value Reference Range Interpretation Comments Hct (test code = Hct) 38.8 36.0-48.0 [facility] HospitalPyuquxvUMRXYSMQCH3462-35-07 15:30:00 Test Item Value Reference Range Interpretation Comments Hgb (test code = Hgb) 12.8 12.0-16.0 [facility]2017-[facility] 05:33:00 Test Item Value Reference Range Interpretation Comments Troponin-I (test code no gt See_Comment [Auto mated message] The = Troponin-I) system which g enerated this result transmit mirna reference range : <=0.40. The reference r chuck was not used to interpr et this result as zahra l/abnormal. [facility]2017-07-26 03:16:00 Test Item Value Reference Range Interpretation Comments CK MB Index (test 0.9 See_Comment [Automate d message] The code = CK MB Index) system w [facility] generated this result transmit mirna reference range : <=2.5. The reference range was not used to interpr et this result as zahra l/abnormal. [facility] [employer]2017-07-26 03:16:00 Test Item Value Reference Range Interpretation Comments Total CK (test code = Total CK) 67 12-191 [facility] 03:16[facility]00 Test Item Value Reference Range Interpretation Comments Troponin-I (test code no gt See_Comment [Auto mated message] The = Troponin-I) system which g enerated this result transmit mirna reference range : <=0.40. The reference r chuck was not used to interpr et this result as zahra l/abnormal. [facility] [id number] 03:16:00 Test Item Value Reference Range Interpretation Comments CK MB (test code = CK MB) 0.6 0.5-3.6 [facility] [id number] 03:16:00 Test Item Value Reference Range Interpretation Comments eGFR (test code = eGFR) 44 [facility] [id number] 03:16:00 Test Item Value Reference Range Interpretation Comments A/G Ratio (test code = A/G Ratio) 0.9 0.7-1.6 [facility] [id number] 03:16:00 Test Item Value Reference Range Interpretation Comments AST (test code = AST) 14 See_Comment [Auto mated message] The system which ge nerated this result transmit mirna reference range : <=37. The reference range was not used to interpr et this result as zahra l/abnormal. [facility] [id number] 03:16:00 Test Item Value Reference Range Interpretation Comments ALT (test code = ALT) 18 See_Comment [Auto mated message] The system which ge nerated this result transmit mirna reference range : <=65. The reference range was not used to interpr et this result as zahra l/abnormal. [facility] [id number] 03:16:00 Test Item Value Reference Range Interpretation Comments Albumin Lvl (test code = Albumin Lvl) 3.4 3.5-5.0 [facility] [id number] 03:16:00 Test Item Value Reference Range Interpretation Comments Total Protein (test code = Total 7.3 6.4-8.4 Protein) [facility] [id number] 03:16:00 Test Item Value Reference Range Interpretation Comments Calcium Lvl (test code = Calcium Lvl) 8.4 8.5-10.5 [facility] [id number] 03:16:00 Test Item Value Reference Range Interpretation Comments Globulin (test code = Globulin) 3.9 2.7-4.2 [facility]2017-07-26 03:16:00 Test Item Value Reference Range Interpretation Comments B/C Ratio (test code = B/C Ratio) 15 6-25 [facility]2017-07-26 03:16:00 Test Item Value Reference Range Interpretation Comments AGAP (test code = AGAP) 12.7 10.0-20.0 [facility]2017-07-26 03:16:00 Test Item Value Reference Range Interpretation Comments Bili Total (test code = Bili Total) 0.1 0.2-1.3 [facility]2017-07-26 03:16:00 Test Item Value Reference Range Interpretation Comments Alk Phos (test code = Alk Phos) 80 39-136 [facility]2017-07-26 03:16:00 Test Item Value Reference Range Interpretation Comments Creatinine Lvl (test code = Creatinine 1.42 0.50-1.40 Lvl) [facility]2017-07-26 03:16:00 Test Item Value Reference Range Interpretation Comments Sodium Lvl (test code = Sodium Lvl) 141 135-145 [facility]2017-07-26 03:16:00 Test Item Value Reference Range Interpretation Comments Potassium Lvl (test code = Potassium 3.7 3.5-5.1 Lvl) [facility]2017-07-26 03:16:00 Test Item Value Reference Range Interpretation Comments Chloride Lvl (test code = Chloride Lvl) 105 95-109 [facility]2017-07-26 03:16:00 Test Item Value Reference Range Interpretation Comments CO2 (test code = CO2) 27 24-32 [facility]2017-07-26 03:16:00 Test Item Value Reference Range Interpretation Comments Glucose Lvl (test code = Glucose Lvl) 79 70-99 [facility]2017-07-26 03:16:00 Test Item Value Reference Range Interpretation Comments BUN (test code = BUN) 21 7-22 [facility] HospitalZesdeytWIDUSIVLHX7467-86-56 03:16:00 Test Item Value Reference Range Interpretation Comments Basophils # (test code 0.0 See_Comment [Aut omated message] The = Basophils #) system which generated this result tra nsmitted reference range : <=0.2. The reference r chuck was not used to int erpret this result as normal/abnormal . [facility] HospitalIflmymgWWLLDJDQZS5020-77-15 03:16:00 Test Item Value Reference Range Interpretation Comments Eosinophils # (test code 0.1 See_Comment [A utomated message] The = Eosinophils #) system whic h generated this result tra nsmitted reference range : <=0.5. The reference r chuck was not used to int erpret this result as normal/abnormal . [facility] HospitalLninabnBLWMCQVSAI3598-62-56 03:16:00 Test Item Value Reference Range Interpretation Comments Monocytes # (test code 0.6 See_Comment [Aut omated message] The = Monocytes #) system which generated this result tra nsmitted reference range : <=0.8. The reference r chuck was not used to int erpret this result as normal/abnormal . [facility] HospitalRhnziooIVXFHDHBVL9081-51-87 03:16:00 Test Item Value Reference Range Interpretation Comments Lymphocytes # (test code = Lymphocytes 3.0 1.0-5.5 #) [facility] HospitalAssutjfQUCMNTEOZR2500-17-46 03:16:00 Test Item Value Reference Range Interpretation Comments Segs (test code = Segs) 58.6 45.0-75.0 [facility] HospitalCgwquogKVSPKEEZJG7135-85-79 03:16:00 Test Item Value Reference Range Interpretation Comments Segs-Bands # (test code = Segs-Bands #) 5.4 1.5-8.1 [facility] HospitalTpmbmkmYQESWZCIJH9810-69-06 03:16:00 Test Item Value Reference Range Interpretation Comments Basophils (test code = 0.4 See_Comment [Aut omated message] The Basophils) system which ge nerated this result tra nsmitted reference range : <=1.0. The reference r chuck was not used to int erpret this result as normal/abnormal . [facility] HospitalCodcqqdQGBSSDTFXO5448-89-06 03:16:00 Test Item Value Reference Range Interpretation Comments Eosinophils (test code = 1.6 See_Comment [A utomated message] The Eosinophils) system which ge nerated this result tra nsmitted reference range : <=4.0. The reference r chuck was not used to int erpret this result as normal/abnormal . [facility] HospitalThikegiMMPIWGEAUH6042-94-49 03:16:00 Test Item Value Reference Range Interpretation Comments Lymphocytes (test code = Lymphocytes) 32.9 20.0-40.0 [facility] HospitalXxxgwetHOMCONKDFK5721-09-99 03:16:00 Test Item Value Reference Range Interpretation Comments Monocytes (test code = Monocytes) 6.5 2.0-12.0 [facility] HospitalXimqcsxFFEWWVJRWL6948-13-19 03:16:00 Test Item Value Reference Range Interpretation Comments D-Dimer (test code = D-Dimer) no gt [facility] HospitalQcopvyzQLVOWIAIJM8024-26-94 03:16:00 Test Item Value Reference Range Interpretation Comments MPV (test code = MPV) 7.7 7.4-10.4 [facility] HospitalLdnnukxPKGWRWMEXC2256-28-20 03:16:00 Test Item Value Reference Range Interpretation Comments MCH (test code = MCH) 32.1 pg 27.0-31.0 [facility] HospitalStlsmnxDZWRWTMALI6907-56-78 03:16:00 Test Item Value Reference Range Interpretation Comments MCV (test code = MCV) 97.0 80.0-98.0 [facility] HospitalYhkgmmyTTEDIBFCYS0974-33-94 03:16:00 Test Item Value Reference Range Interpretation Comments Platelet (test code = Platelet) 305 133-450 [facility] HospitalYylnispIZAGNLIFKP8141-14-44 03:16:00 Test Item Value Reference Range Interpretation Comments MCHC (test code = MCHC) 33.1 32.0-36.0 [facility] HospitalJauyjutFYSPVETFDG4825-46-89 03:16:00 Test Item Value Reference Range Interpretation Comments RDW (test code = RDW) 14.4 11.5-14.5 [facility] HospitalYatdagwALKDFQAAQE4104-08-57 03:16:00 Test Item Value Reference Range Interpretation Comments Hct (test code = Hct) 34.9 36.0-48.0 [facility] HospitalCfrccbrZEEPIHMUPL5733-62-32 03:16:00 Test Item Value Reference Range Interpretation Comments Hgb (test code = Hgb) 11.6 12.0-16.0 [facility] HospitalZzvfbkmIXBXUWBCQH9520-08-37 03:16:00 Test Item Value Reference Range Interpretation Comments RBC (test code = RBC) 3.60 4.20-5.40 [facility] HospitalJgpndivHOWGCEKGFM6226-07-57 03:16:00 Test Item Value Reference Range Interpretation Comments WBC (test code = WBC) 9.2 3.7-10.4 [facility]2015-11-01 10:36:00 Test Item Value Reference Range Interpretation Comments Magnesium Lvl (test code = Magnesium 1.9 1.8-2.4 Lvl) [facility]2015-11-01 10:36:00 Test Item Value Reference Range Interpretation Comments eGFR (test code = eGFR) 106 [facility]2015-11-01 10:36:00 Test Item Value Reference Range Interpretation Comments Sodium Lvl (test code = Sodium Lvl) 143 135-145 [facility]2015-11-01 10:36:00 Test Item Value Reference Range Interpretation Comments Creatinine Lvl (test code = Creatinine 0.7 0.5-1.4 Lvl) [facility]2015-11-01 10:36:00 Test Item Value Reference Range Interpretation Comments Chloride Lvl (test code = Chloride Lvl) 114 95-109 [facility]2015-11-01 10:36:00 Test Item Value Reference Range Interpretation Comments Potassium Lvl (test code = Potassium 3.6 3.5-5.1 Lvl) [facility]2015-11-01 10:36:00 Test Item Value Reference Range Interpretation Comments Total Protein (test code = Total 5.9 6.4-8.4 Protein) [facility]2015-11-01 10:36:00 Test Item Value Reference Range Interpretation Comments Globulin (test code = Globulin) 2.8 2.0-4.0 [facility]2015-11-01 10:36:00 Test Item Value Reference Range Interpretation Comments Albumin Lvl (test code = Albumin Lvl) 3.1 3.5-5.0 [facility]2015-11-01 10:36:00 Test Item Value Reference Range Interpretation Comments A/G Ratio (test code = A/G Ratio) 1.1 0.7-1.6 [facility]2015-11-01 10:36:00 Test Item Value Reference Range Interpretation Comments Alk Phos (test code = Alk Phos) 36 39-136 [facility]2015-11-01 10:36:00 Test Item Value Reference Range Interpretation Comments ALT (test code = ALT) 19 See_Comment [Auto mated message] The system which ge nerated this result transmit mirna reference range : <=65. The reference range was not used to interpr et this result as zahra l/abnormal. [facility]2015-11-01 10:36:00 Test Item Value Reference Range Interpretation Comments Bili Total (test code = Bili Total) 0.4 0.2-1.3 [facility]2015-11-01 10:36:00 Test Item Value Reference Range Interpretation Comments AST (test code = AST) 17 See_Comment [Auto mated message] The system which ge nerated this result transmit mirna reference range : <=37. The reference range was not used to interpr et this result as zahra l/abnormal. [facility]2015-11-01 10:36:00 Test Item Value Reference Range Interpretation Comments AGAP (test code = AGAP) 10.6 10.0-20.0 [facility]2015-11-01 10:36:00 Test Item Value Reference Range Interpretation Comments CO2 (test code = CO2) 22 24-32 [facility]2015-11-01 10:36:00 Test Item Value Reference Range Interpretation Comments B/C Ratio (test code = B/C Ratio) 24 6-25 [facility]2015-11-01 10:36:00 Test Item Value Reference Range Interpretation Comments Calcium Lvl (test code = Calcium Lvl) 7.8 8.5-10.5 [facility]2015-11-01 10:36:00 Test Item Value Reference Range Interpretation Comments Glucose Lvl (test code = Glucose Lvl) 93 70-99 [facility]2015-11-01 10:36:00 Test Item Value Reference Range Interpretation Comments BUN (test code = BUN) 17 7-22 [facility] HospitalDkdhdlwFWIREMANBS7471-56-60 10:36:00 Test Item Value Reference Range Interpretation Comments Basophils # (test code 0.0 See_Comment [Aut omated message] The = Basophils #) system which generated this result tra nsmitted reference range : <=0.2. The reference r chuck was not used to int erpret this result as normal/abnormal . [facility] HospitalNiamariWRHNPIGYGM3483-54-82 10:36:00 Test Item Value Reference Range Interpretation Comments Eosinophils # (test code 0.1 See_Comment [A utomated message] The = Eosinophils #) system whic h generated this result tra nsmitted reference range : <=0.5. The reference r chuck was not used to int erpret this result as normal/abnormal . [facility] HospitalUpdvxgxKYEGTKQYXT1038-71-81 10:36:00 Test Item Value Reference Range Interpretation Comments Monocytes # (test code 0.9 See_Comment [Aut omated message] The = Monocytes #) system which generated this result tra nsmitted reference range : <=0.8. The reference r chuck was not used to int erpret this result as normal/abnormal . [facility] HospitalIjlmmajQAFKBKJQAQ6858-32-64 10:36:00 Test Item Value Reference Range Interpretation Comments Lymphocytes # (test code = Lymphocytes 1.8 1.0-5.5 #) [facility] HospitalXapufthHDMUYNWZKR9736-96-15 10:36:00 Test Item Value Reference Range Interpretation Comments Segs-Bands # (test code = Segs-Bands #) 7.4 1.5-8.1 [facility] HospitalQetkestSQKPHDBEKG1935-13-70 10:36:00 Test Item Value Reference Range Interpretation Comments Basophils (test code = 0.3 See_Comment [Aut omated message] The Basophils) system which ge nerated this result tra nsmitted reference range : <=1.0. The reference r chuck was not used to int erpret this result as normal/abnormal . [facility] HospitalScjexetKGJTBYCQWG9251-23-56 10:36:00 Test Item Value Reference Range Interpretation Comments Lymphocytes (test code = Lymphocytes) 17.4 20.0-40.0 [facility] HospitalWyxkaxiHPVFVLKFCV4538-22-28 10:36:00 Test Item Value Reference Range Interpretation Comments Eosinophils (test code = 0.9 See_Comment [A utomated message] The Eosinophils) system which ge nerated this result tra nsmitted reference range : <=4.0. The reference r chuck was not used to int erpret this result as normal/abnormal . [facility] HospitalGvgnylaZADEDWDHLB8588-48-14 10:36:00 Test Item Value Reference Range Interpretation Comments Monocytes (test code = Monocytes) 9.2 2.0-12.0 [facility] HospitalMzgauvhEXFFTGCINO7277-83-64 10:36:00 Test Item Value Reference Range Interpretation Comments Segs (test code = Segs) 72.2 45.0-75.0 [facility]aleXfvswofAJLTYZHSMU5797-07-61 10:36:00 Test Item Value Reference Range Interpretation Comments WBC (test code = WBC) 10.3 3.7-10.4 [facility]aleHktrezuBUZRTAAWUN1360-02-72 10:36:00 Test Item Value Reference Range Interpretation Comments Platelet (test code = Platelet) 231 133-450 [facility]aleYivtcgkRHVWLURDVC4043-86-82 10:36:00 Test Item Value Reference Range Interpretation Comments RDW (test code = RDW) 13.5 11.5-14.5 [facility]valeLsgutnuMDAJMFVDQE4990-29-85 10:36:00 Test Item Value Reference Range Interpretation Comments Hgb (test code = Hgb) 10.9 12.0-16.0 [facility]valeNpuwnkzQAUTBKDAUV8020-16-55 10:36:00 Test Item Value Reference Range Interpretation Comments MPV (test code = MPV) 7.3 7.4-10.4 [facility]aleEyyhcbhGMYXOFXXGP2506-41-69 10:36:00 Test Item Value Reference Range Interpretation Comments MCHC (test code = MCHC) 32.0 32.0-36.0 [facility]valeZihmbbhGWGGXKUBWH0016-69-83 10:36:00 Test Item Value Reference Range Interpretation Comments MCH (test code = MCH) 32.4 pg 27.0-31.0 [facility]aleFslyhspQYMBFGHXQM2973-07-42 10:36:00 Test Item Value Reference Range Interpretation Comments MCV (test code = MCV) 101.2 80.0-98.0 [facility]aleDvdwumoTJBFZVAFJB4970-18-57 10:36:00 Test Item Value Reference Range Interpretation Comments Hct (test code = Hct) 34.0 36.0-48.0 [facility] CampusNfkjfqvVPPRMCINGQ1228-60-20 10:36:00 Test Item Value Reference Range Interpretation Comments RBC (test code = RBC) 3.36 4.20-5.40 [facility] CampusannCHEM [id number] 23:18:00 Test Item Value Reference Range Interpretation Comments Lactic Acid Lvl (test code = Lactic 0.4 0.5-2.2 Acid Lvl) [facility] CampusannDRUG [id number] 22:34:00 Test Item Value Reference Range Interpretation Comments U Phencyc Scr (test Negative *NA*(04/27/15 code = U Phencyc Scr) 5:34 PM) [facility] [id number] 22:34:00 Test Item Value Reference Range Interpretation Comments U Opiate Scr (test Positive *ABN*(04/27/15 code = U Opiate Scr) 5:34 PM) [facility] [id number] 22:34:00 Test Item Value Reference Range Interpretation Comments UDS Note (test code = See Note (04/27/15 5:34 UDS Note) PM) [facility] [id number] 22:34:00 Test Item Value Reference Range Interpretation Comments U Cocaine Scr (test Negative *NA*(04/27/15 code = U Cocaine Scr) 5:34 PM) [facility] [id number] 22:34:00 Test Item Value Reference Range Interpretation Comments U Benzodia Scr (test Positive code = U Benzodia Scr) *ABN*(04/27/15 5:34 PM) [facility] [id number] 22:34:00 Test Item Value Reference Range Interpretation Comments U Amph Scr (test code Negative *NA*(04/27/15 = U Amph Scr) 5:34 PM) [facility] [id number] 22:34:00 Test Item Value Reference Range Interpretation Comments U Cannab Scr (test Positive *ABN*(04/27/15 code = U Cannab Scr) 5:34 PM) [facility] [id number] 22:34:00 Test Item Value Reference Range Interpretation Comments U Solange Scr (test code Negative *NA*(04/27/15 = U Solange Scr) 5:34 PM) [facility] [id number] 22:34:00 Test Item Value Reference Range Interpretation Comments UA Bacteria (test code = UA Occasional /HPF Bacteria) [facility] [id number] 22:34:00 Test Item Value Reference Range Interpretation Comments UA RBC (test code = 0-2 /HPF See_Comment [Automa mirna message] The UA RBC) system which ge nerated this result tra nsmitted reference range : <=2. The reference range was not used to interpr et this result as zahra l/abnormal. [facility] [id number] 22:34:00 Test Item Value Reference Range Interpretation Comments UA Protein (test code Negative (04/27/15 5:34 = UA Protein) PM) [facility] AND [id number] 22:34:00 Test Item Value Reference Range Interpretation Comments UA Urobilinogen (test code = UA 0.2 0.1-1.0 Urobilinogen) [facility] AND [id number] 22:34:00 Test Item Value Reference Range Interpretation Comments UA Blood (test code = Trace *ABN*(04/27/15 UA Blood) 5:34 PM) [facility] AND [id number] 22:34:00 Test Item Value Reference Range Interpretation Comments UA Nitrite (test code Negative (04/27/15 5:34 = UA Nitrite) PM) [facility] AND [id number] 22:34:00 Test Item Value Reference Range Interpretation Comments UA Bili (test code = Negative *NA*(04/27/15 UA Bili) 5:34 PM) [facility] AND [id number] 22:34:00 Test Item Value Reference Range Interpretation Comments UA Ketones (test code = UA Ketones) 15 mg/dL [facility] AND [id number] 22:34:00 Test Item Value Reference Range Interpretation Comments UA Glucose (test code Negative (04/27/15 5:34 = UA Glucose) PM) [facility] AND [id number] 22:34:00 Test Item Value Reference Range Interpretation Comments UA Sq Epi (test code = UA Sq Occasional /LPF Epi) [facility] AND [id number] 22:34:00 Test Item Value Reference Range Interpretation Comments UA Leuk Est (test Negative (04/27/15 5:34 code = UA Leuk Est) PM) [facility] AND [id number] 22:34:00 Test Item Value Reference Range Interpretation Comments UA WBC (test code = UA WBC) 0-2 /HPF [facility] AND [id number] 22:34:00 Test Item Value Reference Range Interpretation Comments UA pH (test code = UA pH) 7.0 1 5.0-8.0 [facility] AND [id number] 22:34:00 Test Item Value Reference Range Interpretation Comments UA Spec Grav (test code = UA Spec 1.010 1 Grav) [facility] AND [id number] 22:34:00 Test Item Value Reference Range Interpretation Comments UA Turbidity (test code = Clear (04/27/15 5:34 UA Turbidity) PM) [facility] AND [id number] 22:34:00 Test Item Value Reference Range Interpretation Comments UA Color (test code = Yellow *NA*(04/27/15 UA Color) 5:34 PM) [facility]2015-10-31 15:40:00 Test Item Value Reference Range Interpretation Comments Amylase Lvl (test code = Amylase Lvl) 94 25-115 [facility]2015-10-31 15:40:00 Test Item Value Reference Range Interpretation Comments Lipase Lvl (test code = Lipase Lvl) 62 73-393 [facility]2015-10-31 15:40:00 Test Item Value Reference Range Interpretation Comments eGFR (test code = eGFR) 106 [facility]2015-10-31 15:40:00 Test Item Value Reference Range Interpretation Comments Bili Total (test code = Bili Total) 0.4 0.2-1.3 [facility]2015-10-31 15:40:00 Test Item Value Reference Range Interpretation Comments Alk Phos (test code = Alk Phos) 47 39-136 [facility]2015-10-31 15:40:00 Test Item Value Reference Range Interpretation Comments Globulin (test code = Globulin) 3.4 2.0-4.0 [facility]2015-10-31 15:40:00 Test Item Value Reference Range Interpretation Comments Albumin Lvl (test code = Albumin Lvl) 4.2 3.5-5.0 [facility]2015-10-31 15:40:00 Test Item Value Reference Range Interpretation Comments Total Protein (test code = Total 7.6 6.4-8.4 Protein) [facility]2015-10-31 15:40:00 Test Item Value Reference Range Interpretation Comments B/C Ratio (test code = B/C Ratio) 23 6-25 [facility]2015-10-31 15:40:00 Test Item Value Reference Range Interpretation Comments AST (test code = AST) 18 See_Comment [Auto mated message] The system which ge nerated this result transmit mirna reference range : <=37. The reference range was not used to interpr et this result as zahra l/abnormal. [facility]2015-10-31 15:40:00 Test Item Value Reference Range Interpretation Comments ALT (test code = ALT) 22 See_Comment [Auto mated message] The system which ge nerated this result transmit mirna reference range : <=65. The reference range was not used to interpr et this result as zahra l/abnormal. [facility]2015-10-31 15:40:00 Test Item Value Reference Range Interpretation Comments A/G Ratio (test code = A/G Ratio) 1.2 0.7-1.6 [facility]2015-10-31 15:40:00 Test Item Value Reference Range Interpretation Comments Chloride Lvl (test code = Chloride Lvl) 104 95-109 [facility]2015-10-31 15:40:00 Test Item Value Reference Range Interpretation Comments Potassium Lvl (test code = Potassium 2.8 3.5-5.1 Lvl) [facility]2015-10-31 15:40:00 Test Item Value Reference Range Interpretation Comments Creatinine Lvl (test code = Creatinine 0.7 0.5-1.4 Lvl) [facility]2015-10-31 15:40:00 Test Item Value Reference Range Interpretation Comments BUN (test code = BUN) 16 7-22 [facility]2015-10-31 15:40:00 Test Item Value Reference Range Interpretation Comments Sodium Lvl (test code = Sodium Lvl) 139 135-145 [facility]2015-10-31 15:40:00 Test Item Value Reference Range Interpretation Comments Calcium Lvl (test code = Calcium Lvl) 9.3 8.5-10.5 [facility]2015-10-31 15:40:00 Test Item Value Reference Range Interpretation Comments AGAP (test code = AGAP) 11.8 10.0-20.0 [facility]2015-10-31 15:40:00 Test Item Value Reference Range Interpretation Comments CO2 (test code = CO2) 26 24-32 [facility]2015-10-31 15:40:00 Test Item Value Reference Range Interpretation Comments Glucose Lvl (test code = Glucose Lvl) 106 70-99 [facility]72 15:40:00 Test Item Value Reference Range Interpretation Comments S Preg (test code = S Negative *NA*(04/27/15 Preg) 10:40 AM) [facility]KyfnpceZMABNDOHSP2086-28-07 15:40:00 Test Item Value Reference Range Interpretation Comments Eosinophils (test code = 0.0 See_Comment [A utomated message] The Eosinophils) system which ge nerated this result tra nsmitted reference range : <=4.0. The reference r chuck was not used to int erpret this result as normal/abnormal . [facility] HospitalTmetjqlZUNTXVTERA5676-00-93 15:40:00 Test Item Value Reference Range Interpretation Comments Basophils (test code = 0.2 See_Comment [Aut omated message] The Basophils) system which ge nerated this result tra nsmitted reference range : <=1.0. The reference r chuck was not used to int erpret this result as normal/abnormal . [facility] HospitalZydxdnfDXANSLGCKI5277-60-45 15:40:00 Test Item Value Reference Range Interpretation Comments Segs-Bands # (test code = Segs-Bands #) 11.8 1.5-8.1 [facility] HospitalSavnjklSBZADNOPTG2619-91-11 15:40:00 Test Item Value Reference Range Interpretation Comments RBC Morph (test code = Normal (04/27/15 10:40 RBC Morph) AM) [facility] HospitalNtwwecyRCDMNGJLAC6492-00-61 15:40:00 Test Item Value Reference Range Interpretation Comments Plt Morph (test code = Normal (04/27/15 10:40 Plt Morph) AM) [facility] HospitalUnwynahLOGGFUOMTW1542-73-87 15:40:00 Test Item Value Reference Range Interpretation Comments Segs (test code = Segs) 81.9 45.0-75.0 [facility] H[id number] 15:40:00 Test Item Value Reference Range Interpretation Comments Eosinophils # (test code 0.0 See_Comment [A utomated message] The = Eosinophils #) system whic h generated this result tra nsmitted reference range : <=0.5. The reference r chuck was not used to int erpret this result as normal/abnormal . [facility] HospitalAtfpaguTEJZUFNIRC5655-13-37 15:40:00 Test Item Value Reference Range Interpretation Comments Basophils # (test code 0.0 See_Comment [Aut omated message] The = Basophils #) system which generated this result tra nsmitted reference range : <=0.2. The reference r chuck was not used to int erpret this result as normal/abnormal . [facility] HospitalKjzmqyxEHYILHKJBH5544-67-14 15:40:00 Test Item Value Reference Range Interpretation Comments Lymphocytes # (test code = Lymphocytes 1.7 1.0-5.5 #) [facility] HospitalNxhkadxZMWIKWPYYR7940-94-85 15:40:00 Test Item Value Reference Range Interpretation Comments Monocytes # (test code 0.9 See_Comment [Aut omated message] The = Monocytes #) system which generated this result tra nsmitted reference range : <=0.8. The reference r chuck was not used to int erpret this result as normal/abnormal . [facility] HospitalPkqrnfaNGLZCXLOYI5631-29-98 15:40:00 Test Item Value Reference Range Interpretation Comments Monocytes (test code = Monocytes) 6.3 2.0-12.0 [facility] HospitalCnahqlpYXDQHXKYMP7551-45-89 15:40:00 Test Item Value Reference Range Interpretation Comments Lymphocytes (test code = Lymphocytes) 11.6 20.0-40.0 [facility] HospitalHoqdztcZOOQUIEGSR8796-64-62 15:40:00 Test Item Value Reference Range Interpretation Comments RDW (test code = RDW) 13.5 11.5-14.5 [facility] HospitalMciobhqFMIELIMESF2512-75-69 15:40:00 Test Item Value Reference Range Interpretation Comments MCHC (test code = MCHC) 33.2 32.0-36.0 [facility] HospitalBuzlyuaXTJFEHYZRJ6918-42-25 15:40:00 Test Item Value Reference Range Interpretation Comments MPV (test code = MPV) 8.2 7.4-10.4 [facility] HospitalOumobrbXYWQDMOEFM0643-78-98 15:40:00 Test Item Value Reference Range Interpretation Comments Platelet (test code = Platelet) 294 133-450 [facility] HospitalQhdzsglXXJDRRWAQB7255-24-68 15:40:00 Test Item Value Reference Range Interpretation Comments MCV (test code = MCV) 98.9 80.0-98.0 [facility] HospitalLfmarkgCYWCOSALRT4146-53-20 15:40:00 Test Item Value Reference Range Interpretation Comments MCH (test code = MCH) 32.8 pg 27.0-31.0 [facility] HospitalFekigvqZLGLQMOHRZ2509-35-87 15:40:00 Test Item Value Reference Range Interpretation Comments RBC (test code = RBC) 3.67 4.20-5.40 [facility] HospitalPimvejyOWXSUEJQNJ1980-31-75 15:40:00 Test Item Value Reference Range Interpretation Comments Hgb (test code = Hgb) 12.0 12.0-16.0 [facility] HospitalNcqvyddUMUGZOLZJI6134-11-43 15:40:00 Test Item Value Reference Range Interpretation Comments Hct (test code = Hct) 36.3 36.0-48.0 [facility] HospitalBgcuzjqMBAFHQUNYV5135-89-49 15:40:00 Test Item Value Reference Range Interpretation Comments WBC (test code = WBC) 14.4 3.7-10.4 [facility] AND [id number] 16:45:00 Test Item Value Reference Range Interpretation Comments UA Hyal Cast 3-5 (10/22/14 See_Comment [Automated mes leonel] (test code = UA 11:45 AM) The system w [facility] Hyal Cast) generated this result transmitted ref erence range: <=2. The reference range was not used to int erpret this result as normal/abnormal . [facility] AND [id number] 16:45:00 Test Item Value Reference Range Interpretation Comments UA Urobilinogen (test code = UA 0.2 0.1-1.0 Urobilinogen) [facility] AND [id number] 16:45:00 Test Item Value Reference Range Interpretation Comments UA Nitrite (test code Negative (10/22/14 11:45 = UA Nitrite) AM) [facility] AND [id number] 16:45:00 Test Item Value Reference Range Interpretation Comments UA Bili (test code = Small *ABN*(10/22/14 UA Bili) 11:45 AM) [facility] AND [id number] 16:45:00 Test Item Value Reference Range Interpretation Comments UA Blood (test code = Negative (10/22/14 11:45 UA Blood) AM) [facility] AND [id number] 16:45:00 Test Item Value Reference Range Interpretation Comments UA Ketones (test code Negative *NA*(10/22/14 = UA Ketones) 11:45 AM) [facility] AND [id number] 16:45:00 Test Item Value Reference Range Interpretation Comments UA Turbidity (test code Slight Cloudy = UA Turbidity) (10/22/14 11:45 AM) [facility] AND [id number] 16:45:00 Test Item Value Reference Range Interpretation Comments UA Spec Grav (test code = UA Spec 1.025 1 Grav) [facility] AND [id number] 16:45:00 Test Item Value Reference Range Interpretation Comments UA pH (test code = UA pH) 6.0 1 5.0-8.0 [facility] AND [id number] 16:45:00 Test Item Value Reference Range Interpretation Comments UA Protein (test code = Trace *ABN*(10/22/14 UA Protein) 11:45 AM) [facility] AND [id number] 16:45:00 Test Item Value Reference Range Interpretation Comments UA Glucose (test code Negative (10/22/14 11:45 = UA Glucose) AM) [facility] AND [id number] 16:45:00 Test Item Value Reference Range Interpretation Comments UA WBC (test code = UA WBC) 0-2 /HPF [facility] AND [id number] 16:45:00 Test Item Value Reference Range Interpretation Comments UA RBC (test code = 0-2 /HPF See_Comment [Automa mirna message] The UA RBC) system which ge nerated this result tra nsmitted reference range : <=2. The reference range was not used to interpr et this result as zahra l/abnormal. [facility] AND [id number] 16:45:00 Test Item Value Reference Range Interpretation Comments UA Bacteria (test code = UA Few /HPF Bacteria) [facility] AND [id number] 16:45:00 Test Item Value Reference Range Interpretation Comments UA Leuk Est (test Negative (10/22/14 11:45 code = UA Leuk Est) AM) [facility] AND [id number] 16:45:00 Test Item Value Reference Range Interpretation Comments UA Sq Epi (test code = UA Sq Moderate /LPF Epi) [facility] AND [id number] 16:45:00 Test Item Value Reference Range Interpretation Comments UA Color (test code = Yellow *NA*(10/22/14 UA Color) 11:45 AM) [facility]2015-04-27 16:33:00 Test Item Value Reference Range Interpretation Comments CK MB Index (test 1.2 See_Comment [Automate d message] The code = CK MB Index) system w [facility] generated this result transmit mirna reference range : <=2.5. The reference range was not used to interpr et this result as zahra l/abnormal. [facility]2015-04-27 16:33:00 Test Item Value Reference Range Interpretation Comments CK MB (test code = CK MB) 0.6 0.5-3.6 [facility] [employer]2015-04-27 16:33:00 Test Item Value Reference Range Interpretation Comments Troponin-I (test code no gt See_Comment [Auto mated message] The = Troponin-I) system which g enerated this result transmit mirna reference range : <=0.40. The reference r chuck was not used to interpr et this result as zahra l/abnormal. [facility]2015-04-27 16:33:00 Test Item Value Reference Range Interpretation Comments Total CK (test code = Total CK) 50 12-191 [facility]2015-04-27 16:33:00 Test Item Value Reference Range Interpretation Comments BNP (test code = BNP) 180 [facility]2015-04-27 16:33:00 Test Item Value Reference Range Interpretation Comments eGFR (test code = eGFR) 78 [facility]2015-04-27 16:33:00 Test Item Value Reference Range Interpretation Comments Globulin (test code = Globulin) 3.1 2.0-4.0 [facility]2015-04-27 16:33:00 Test Item Value Reference Range Interpretation Comments A/G Ratio (test code = A/G Ratio) 1.1 0.7-1.6 [facility]2015-04-27 16:33:00 Test Item Value Reference Range Interpretation Comments BUN (test code = BUN) 8 7-22 [facility]2015-04-27 16:33:00 Test Item Value Reference Range Interpretation Comments Glucose Lvl (test code = Glucose Lvl) 103 70-99 [facility]2015-04-27 16:33:00 Test Item Value Reference Range Interpretation Comments Sodium Lvl (test code = Sodium Lvl) 141 135-145 [facility]2015-04-27 16:33:00 Test Item Value Reference Range Interpretation Comments Creatinine Lvl (test code = Creatinine 0.9 0.5-1.4 Lvl) [facility]2015-04-27 16:33:00 Test Item Value Reference Range Interpretation Comments Potassium Lvl (test code = Potassium 3.5 3.5-5.1 Lvl) [facility]2015-04-27 16:33:00 Test Item Value Reference Range Interpretation Comments CO2 (test code = CO2) 27 24-32 [place] 975495-04-27 16:33:00 Test Item Value Reference Range Interpretation Comments Chloride Lvl (test code = Chloride Lvl) 109 95-109 [facility]2015-04-27 16:33:00 Test Item Value Reference Range Interpretation Comments Total Protein (test code = Total 6.4 6.4-8.4 Protein) [facility]2015-04-27 16:33:00 Test Item Value Reference Range Interpretation Comments ALT (test code = ALT) 13 See_Comment [Auto mated message] The system which ge nerated this result transmit mirna reference range : <=65. The reference range was not used to interpr et this result as zahra l/abnormal. [facility]2015-04-27 16:33:00 Test Item Value Reference Range Interpretation Comments AST (test code = AST) 17 See_Comment [Auto mated message] The system which ge nerated this result transmit mirna reference range : <=37. The reference range was not used to interpr et this result as zahra l/abnormal. [facility]2015-04-27 16:33:00 Test Item Value Reference Range Interpretation Comments Alk Phos (test code = Alk Phos) 46 39-136 [facility]2015-04-27 16:33:00 Test Item Value Reference Range Interpretation Comments Calcium Lvl (test code = Calcium Lvl) 8.3 8.5-10.5 [facility]2015-04-27 16:33:00 Test Item Value Reference Range Interpretation Comments B/C Ratio (test code = B/C Ratio) 9 6-25 [facility]2015-04-27 16:33:00 Test Item Value Reference Range Interpretation Comments AGAP (test code = AGAP) 8.5 10.0-20.0 [facility]2015-04-27 16:33:00 Test Item Value Reference Range Interpretation Comments Albumin Lvl (test code = Albumin Lvl) 3.3 3.5-5.0 [facility]2015-04-27 16:33:00 Test Item Value Reference Range Interpretation Comments Bili Total (test code = Bili Total) 0.3 0.2-1.3 [facility] Hospit[id number] 16:33:00 Test Item Value Reference Range Interpretation Comments Segs (test code = Segs) 63.6 45.0-75.0 [facility] Hospit[id number] 16:33:00 Test Item Value Reference Range Interpretation Comments Lymphocytes (test code = Lymphocytes) 22.9 20.0-40.0 [facility] HospitalZspffrdBZSVREKDQW6973-10-26 16:33:00 Test Item Value Reference Range Interpretation Comments Monocytes (test code = Monocytes) 8.2 2.0-12.0 [facility] H[id number] 16:33:00 Test Item Value Reference Range Interpretation Comments Eosinophils (test code = 4.2 See_Comment [A utomated message] The Eosinophils) system which ge nerated this result tra nsmitted reference range : <=4.0. The reference r chuck was not used to int erpret this result as normal/abnormal . [facility] HospitalNpmmxzoYPFLEFOMPH2229-55-77 16:33:00 Test Item Value Reference Range Interpretation Comments Basophils (test code = 1.1 See_Comment [Aut omated message] The Basophils) system which ge nerated this result tra nsmitted reference range : <=1.0. The reference r chuck was not used to int erpret this result as normal/abnormal . [facility] HospitalMpctqvkPCZMKYMEMU9774-86-45 16:33:00 Test Item Value Reference Range Interpretation Comments Segs-Bands # (test code = Segs-Bands #) 4.5 1.5-8.1 [facility] HospitalIifbbhpRIDGBJSOSW8741-76-18 16:33:00 Test Item Value Reference Range Interpretation Comments Lymphocytes # (test code = Lymphocytes 1.6 1.0-5.5 #) [facility] HospitalOtdiqccKRVIFSWGWZ5321-57-57 16:33:00 Test Item Value Reference Range Interpretation Comments Monocytes # (test code 0.6 See_Comment [Aut omated message] The = Monocytes #) system which generated this result tra nsmitted reference range : <=0.8. The reference r chuck was not used to int erpret this result as normal/abnormal . [facility] HospitalBfjymfwRMTOOATZSZ6896-66-73 16:33:00 Test Item Value Reference Range Interpretation Comments Basophils # (test code 0.1 See_Comment [Aut omated message] The = Basophils #) system which generated this result tra nsmitted reference range : <=0.2. The reference r chuck was not used to int erpret this result as normal/abnormal . [facility] HospitalArgatznLPUTNAFBHQ9211-37-75 16:33:00 Test Item Value Reference Range Interpretation Comments Eosinophils # (test code 0.3 See_Comment [A utomated message] The = Eosinophils #) system whic h generated this result tra nsmitted reference range : <=0.5. The reference r chuck was not used to int erpret this result as normal/abnormal . [facility] HospitalSwkobhtJFXLJZDPIU3885-39-96 16:33:00 Test Item Value Reference Range Interpretation Comments MCH (test code = MCH) 32.3 pg 27.0-31.0 [facility] HospitalNzbzpdmSAUELIPLSC7620-25-48 16:33:00 Test Item Value Reference Range Interpretation Comments MCHC (test code = MCHC) 33.5 32.0-36.0 [facility] HospitalEnanfuqVBVQTAETEL9087-74-48 16:33:00 Test Item Value Reference Range Interpretation Comments RDW (test code = RDW) 14.9 11.5-14.5 [facility] HospitalGxfackoDMTSOKBJLT6207-72-79 16:33:00 Test Item Value Reference Range Interpretation Comments Platelet (test code = Platelet) 250 133-450 [facility] HospitalRszgrinKTBJJNAWIQ4480-65-46 16:33:00 Test Item Value Reference Range Interpretation Comments MPV (test code = MPV) 7.1 7.4-10.4 [facility] HospitalFgzbaqxZUAOECZFJV5645-04-49 16:33:00 Test Item Value Reference Range Interpretation Comments RBC (test code = RBC) 2.92 4.20-5.40 [facility] HospitalMjjbsqgJCZYJJYRIB9408-51-42 16:33:00 Test Item Value Reference Range Interpretation Comments WBC (test code = WBC) 7.1 3.7-10.4 [facility] Hospit[id number] 16:33:00 Test Item Value Reference Range Interpretation Comments MCV (test code = MCV) 96.4 80.0-98.0 [facility] HospitalGdxiscqMRVRVBGPZT8565-90-46 16:33:00 Test Item Value Reference Range Interpretation Comments Hgb (test code = Hgb) 9.4 12.0-16.0 [facility] Ho[id number] 16:33:00 Test Item Value Reference Range Interpretation Comments Hct (test code = Hct) 28.2 36.0-48.0 [facility]burgGrinsbvPWTUVVBVRZ9403-67-44 16:33:00 Test Item Value Reference Range Interpretation Comments [facility] HIV 4th GEN (test Negative (10/22/14 11:33 code = CDC HIV 4th AM) GEN) [facility]burgFaejqwpRZAIYIKXYO8353-05-62 16:33:00 Test Item Value Reference Range Interpretation Comments [place]-Hep C Ab (test Negative *NA*(10/22/14 code = [place]-Hep C 11:33 AM) Ab) [facility]2015-01-23 05:26:00 Test Item Value Reference Range Interpretation Comments eGFR (test code = eGFR) 90 [facility]2015-01-23 05:26:00 Test Item Value Reference Range Interpretation Comments Chloride Lvl (test code = Chloride Lvl) 112 95-109 [facility]2015-01-23 05:26:00 Test Item Value Reference Range Interpretation Comments Creatinine Lvl (test code = Creatinine 0.8 0.5-1.4 Lvl) [facility]2015-01-23 05:26:00 Test Item Value Reference Range Interpretation Comments Potassium Lvl (test code = Potassium 3.8 3.5-5.1 Lvl) [facility]2015-01-23 05:26:00 Test Item Value Reference Range Interpretation Comments BUN (test code = BUN) 19 7-22 [facility]2015-01-23 05:26:00 Test Item Value Reference Range Interpretation Comments Sodium Lvl (test code = Sodium Lvl) 144 135-145 [facility]2015-01-23 05:26:00 Test Item Value Reference Range Interpretation Comments Glucose Lvl (test code = Glucose Lvl) 93 70-99 [facility]2015-01-23 05:26:00 Test Item Value Reference Range Interpretation Comments ALT (test code = ALT) 15 See_Comment [Auto mated message] The system which ge nerated this result transmit mirna reference range : <=65. The reference range was not used to interpr et this result as zahra l/abnormal. [facility]2015-01-23 05:26:00 Test Item Value Reference Range Interpretation Comments Bili Total (test code = Bili Total) 0.1 0.2-1.3 [facility]2015-01-23 05:26:00 Test Item Value Reference Range Interpretation Comments Alk Phos (test code = Alk Phos) 51 39-136 [facility]2015-01-23 05:26:00 Test Item Value Reference Range Interpretation Comments AST (test code = AST) 15 See_Comment [Auto mated message] The system which ge nerated this result transmit mirna reference range : <=37. The reference range was not used to interpr et this result as zahra l/abnormal. [facility]2015-01-23 05:26:00 Test Item Value Reference Range Interpretation Comments CO2 (test code = CO2) 24-32 [facility]2015-01-23 05:26:00 Test Item Value Reference Range Interpretation Comments Calcium Lvl (test code = Calcium Lvl) 8.9 8.5-10.5 [facility]2015-01-23 05:26:00 Test Item Value Reference Range Interpretation Comments Total Protein (test code = Total 7.0 6.4-8.4 Protein) [facility]2015-01-23 05:26:00 Test Item Value Reference Range Interpretation Comments Albumin Lvl (test code = Albumin Lvl) 3.7 3.5-5.0 [facility]2015-01-23 05:26:00 Test Item Value Reference Range Interpretation Comments B/C Ratio (test code = B/C Ratio) 24 6-25 [place] 975495-01-23 05:26:00 Test Item Value Reference Range Interpretation Comments Globulin (test code = Globulin) 3.3 2.0-4.0 [facility]2015-01-23 05:26:00 Test Item Value Reference Range Interpretation Comments A/G Ratio (test code = A/G Ratio) 1.1 0.7-1.6 [facility]2015-01-23 05:26:00 Test Item Value Reference Range Interpretation Comments AGAP (test code = AGAP) 9.8 10.0-20.0 [facility] HospitalMivqzgzTWEYEWAZPS1306-86-48 05:26:00 Test Item Value Reference Range Interpretation Comments Monocytes (test code = Monocytes) 7.8 2.0-12.0 [facility] [id number] 05:26:00 Test Item Value Reference Range Interpretation Comments Segs (test code = Segs) 44.5 45.0-75.0 [id number] 05:26:00 Test Item Value Reference Range Interpretation Comments Lymphocytes (test code = Lymphocytes) 40.5 20.0-40.0 [id number] 05:26:00 Test Item Value Reference Range Interpretation Comments Eosinophils # (test code 0.4 See_Comment [A utomated message] The = Eosinophils #) system whic h generated this result tra nsmitted reference range : <=0.5. The reference r chuck was not used to int erpret this result as normal/abnormal . [facility] [id number] 05:26:00 Test Item Value Reference Range Interpretation Comments Monocytes # (test code 0.6 See_Comment [Aut omated message] The = Monocytes #) system which generated this result tra nsmitted reference range : <=0.8. The reference r chuck was not used to int erpret this result as normal/abnormal . [facility] [id number] 05:26:00 Test Item Value Reference Range Interpretation Comments Lymphocytes # (test code = Lymphocytes 2.9 1.0-5.5 #) [facility] [id number] 05:26:00 Test Item Value Reference Range Interpretation Comments Segs-Bands # (test code = Segs-Bands #) 3.1 1.5-8.1 [facility] [id number] 05:26:00 Test Item Value Reference Range Interpretation Comments Eosinophils (test code = 5.0 See_Comment [A utomated message] The Eosinophils) system which ge nerated this result tra nsmitted reference range : <=4.0. The reference r chuck was not used to int erpret this result as normal/abnormal . [facility] [id number] 05:26:00 Test Item Value Reference Range Interpretation Comments Basophils (test code = 2.2 See_Comment [Aut omated message] The Basophils) system which ge nerated this result tra nsmitted reference range : <=1.0. The reference r chuck was not used to int erpret this result as normal/abnormal . [facility] [id number] 05:26:00 Test Item Value Reference Range Interpretation Comments Basophils # (test code 0.2 See_Comment [Aut omated message] The = Basophils #) system which generated this result tra nsmitted reference range : <=0.2. The reference r chuck was not used to int erpret this result as normal/abnormal . [facility] H[id number] 05:26:00 Test Item Value Reference Range Interpretation Comments RBC (test code = RBC) 3.64 4.20-5.40 [facility] [id number] 05:26:00 Test Item Value Reference Range Interpretation Comments Hgb (test code = Hgb) 11.6 12.0-16.0 [facility] [id number] 05:26:00 Test Item Value Reference Range Interpretation Comments Platelet (test code = Platelet) 264 133-450 [facility] H[id number] 05:26:00 Test Item Value Reference Range Interpretation Comments RDW (test code = RDW) 14.0 11.5-14.5 [facility] H[id number] 05:26:00 Test Item Value Reference Range Interpretation Comments MCHC (test code = MCHC) 32.9 32.0-36.0 [facility] H[id number] 05:26:00 Test Item Value Reference Range Interpretation Comments WBC (test code = WBC) 7.0 3.7-10.4 [facility] H[id number] 05:26:00 Test Item Value Reference Range Interpretation Comments MCV (test code = MCV) 97.0 80.0-98.0 [facility] [id number] 05:26:00 Test Item Value Reference Range Interpretation Comments MCH (test code = MCH) 31.9 pg 27.0-31.0 [facility] [id number] 05:26:00 Test Item Value Reference Range Interpretation Comments Hct (test code = Hct) 35.3 36.0-48.0 [facility] [id number] 05:26:00 Test Item Value Reference Range Interpretation Comments MPV (test code = MPV) 7.6 7.4-10.4 [facility] AND [id number] 05:26:00 Test Item Value Reference Range Interpretation Comments UA Leuk Est (test Negative (07/19/14 11:26 code = UA Leuk Est) PM) [facility] AND [id number] 05:26:00 Test Item Value Reference Range Interpretation Comments UA Nitrite (test code Negative (07/19/14 11:26 = UA Nitrite) PM) [facility] AND [id number] 05:26:00 Test Item Value Reference Range Interpretation Comments UA pH (test code = UA pH) 6.0 1 5.0-8.0 [facility] AND [id number] 05:26:00 Test Item Value Reference Range Interpretation Comments UA Spec Grav (test >=1.030 *ABN*(07/19/14 code = UA Spec Grav) 11:26 PM) [facility] AND [id number] 05:26:00 Test Item Value Reference Range Interpretation Comments UA Turbidity (test code Slight Cloudy = UA Turbidity) (07/19/14 11:26 PM) [facility] AND [id number] 05:26:00 Test Item Value Reference Range Interpretation Comments UA Color (test code = Yellow *NA*(07/19/14 UA Color) 11:26 PM) [facility] AND [id number] 05:26:00 Test Item Value Reference Range Interpretation Comments UA Bili (test code = Small *ABN*(07/19/14 UA Bili) 11:26 PM) [facility] AND [id number] 05:26:00 Test Item Value Reference Range Interpretation Comments UA Protein (test code = Trace *ABN*(07/19/14 UA Protein) 11:26 PM) [facility] AND [id number] 05:26:00 Test Item Value Reference Range Interpretation Comments UA Ketones (test code = Trace *ABN*(07/19/14 UA Ketones) 11:26 PM) [facility] AND [id number] 05:26:00 Test Item Value Reference Range Interpretation Comments UA Glucose (test code Negative (07/19/14 11:26 = UA Glucose) PM) [facility] AND [id number] 05:26:00 Test Item Value Reference Range Interpretation Comments UA Sq Epi (test code = UA Sq Epi) Few /LPF [facility] AND [id number] 05:26:00 Test Item Value Reference Range Interpretation Comments UA WBC (test code = UA WBC) 3-5 /HPF [facility] AND [id number] 05:26:00 Test Item Value Reference Range Interpretation Comments UA RBC (test code = 0-2 /HPF See_Comment [Automa mirna message] The UA RBC) system which ge nerated this result tra nsmitted reference range : <=2. The reference range was not used to interpr et this result as zahra l/abnormal. [facility] AND [id number] 05:26:00 Test Item Value Reference Range Interpretation Comments UA Urobilinogen (test code = UA 0.2 0.1-1.0 Urobilinogen) [facility] AND [id number] 05:26:00 Test Item Value Reference Range Interpretation Comments UA Blood (test code = Negative (07/19/14 11:26 UA Blood) PM) [facility] AND [id number] 05:26:00 Test Item Value Reference Range Interpretation Comments UA Bacteria (test code = UA Few /HPF Bacteria) [facility] AND [id number] 05:26:00 Test Item Value Reference Range Interpretation Comments UA Mucus (test code = UA Mucus) Few /LPF [facility]
[2022-05-07] MEDS ORDERED: FENTANYL CITR 100 MCG/2 ML ONE ×2 (12:45→15:04)
[2022-05-07] MEDS ORDERED: DIAZEPAM 10 MG/2 ML INJ SYRINGE ONE (12:46)
[2022-05-07] MEDS ORDERED: NA CHLORIDE 0.9% 1,000 ML ONE (12:46)
[2022-05-07] MEDS ORDERED: LIDOCAINE HCL JELLY 2% 6 ML SYRINGE TOP ONE (13:45)
[2022-05-07 14:37] LABS: Absolute Lymphocytes (CBC) 2.2 K/uL (0.7-4.9); Hematocrit 29.9 % (36.0-45.0); Lymphocytes % 32.8 % (15.3-44.8); MCV 95.3 fL (80-100); MPV 7.6 fL (7.6-11.3); RBC Red Blood Cell Count 3.14 M/uL (3.86-4.86)
[2022-05-07 14:50] LABS: Albumin 3.3 g/dL (3.4-5.0); Bilirubin Total 0.4 mg/dL (0.2-1.0); Protein, Total 6.2 g/dL (6.4-8.2)
[2022-05-07 14:55] LABS: Potassium 2.5 mmol/L (3.5-5.1)
[2022-05-07] MEDS ORDERED: POTASSIUM CL SA 10 MEQ TAB PO ONE ×2 (15:35→17:59)
--- NOTE | 2022-05-07 15:43 | RAD REPORT ---
EXAM DESCRIPTION: CTAbdomen Pelvis W Contrast - 05/07/2022 3:27 pm CLINICAL HISTORY: Hernia, complicated COMPARISON: Abdomen Pelvis W Contrast dated 08/20/2021; Abdomen Pelvis W Contrast dated 10/07/2019 TECHNIQUE: CT of the abdomen and pelvis was performed with IV contrast. All CT scans are performed using dose optimization technique as appropriate and may include automated exposure control or mA/KV adjustment according to patient size. FINDINGS: Lower chest: No acute abnormality. Liver: Low-density lesion in the left hepatic lobe has benign imaging features. Biliary: No biliary ductal dilatation. Stomach: No significant focal abnormality. Duodenum: No significant focal abnormality. Pancreas: No significant abnormality. Spleen: No significant abnormality. Adrenal: No suspicious lesions. Kidney/ureter: No hydronephrosis. Left nephrolithiasis. Retroperitoneum: No retroperitoneal adenopathy. Vascular: No aneurysm. Bowel: No significant focal abnormality. No appendicitis. Peritoneum: Small volume of pelvic free fluid. Small volume of fluid in the right inguinal canal. The fluid measures approximately 1.8 cm. Bladder: Grossly unremarkable. Reproductive: No adnexal masses. Bones: Slight T12 and L1 compression deformities appear chronic. No acute fracture. Other: n/a IMPRESSION: No acute intra-abdominal or pelvic finding. Small right inguinal hernia which now contai ns fluid and may explain the patient's reported palpable abnormality. No complicating features.
[2022-05-07] MEDS: NA CHLORIDE 0.9% 1,000 ML with POTASSIUM CL 40 MEQ IV SCH ×2 (16:00)
[2022-05-07] MEDS ORDERED: KETOROLAC 30 MG/ML INJ ONE (16:30)
[2022-05-07 17:36] LABS: SARS-CoV-2 Antigen Rapid Res Negative (Negative)
[2022-05-07] MEDS ORDERED: cloNIDine HCL 0.1 MG TAB ONE (17:58)
[2022-05-07] MEDS ORDERED: ALPRAZOLAM 0.5 MG TABLET ONE (17:59)
[2022-05-07] MEDS ORDERED: AMLODIPINE 5 MG TAB ONE (17:59)
[2022-05-07] MEDS ORDERED: HYDRALAZINE HCL 20 MG/ML VIAL ONE (19:06)
[2022-05-07] MEDS ORDERED: NICOTINE 21 MG/PAT TD ONE (19:06)
--- NOTE | 2022-05-07 19:32 | ER ---
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 Coronavirus screen: Vaccine status: Patient reports receiving the 2nd dose of the covid vaccine. Client denies travel out of the [place] in the last 14 days. Ebola Screen: Patient negative for fever greater than or equal to 101.5 degrees Fahrenheit, and additional compatible Ebola Virus Disease symptoms Patient denies exposure to infectious person. Patient denies travel to an Ebola-affected area in the 21 days before illness onset. Initial Sepsis Screen: Does the patient meet any 2 criteria? No. Patient's initial sepsis screen is negative. Does the patient have a suspected source of infection? No. Patient's initial sepsis screen is negative. Risk Assessment: Do you want to hurt yourself or someone else? Patient reports no desire to harm self or others. 11:54 Method Of Arrival: Ambulatory [facility] 11:54 Acuity: BHARAT 3 [facility] 22:27 Onset of symptoms was May 07, 2022. 3 Triage Assessment: 11:58 General: Appears distressed, uncomfortable, slender, Behavior is calm, cooperative, [facility] appropriate for age. Pain: Complains of pain in pelvis. 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 - Social history:: Smoking status: Patient reports the use of cigarette tobacco products, denies chronic smoking, but will smoke occasionally. Screenin:12 Abuse screen: Denies threats or abuse. Denies injuries from another. Nutritional 3 screening: No deficits noted. Tuberculosis screening: No symptoms or risk factors identified. Fall Risk None identified. Assessment: 12:10 General: Appears in no apparent distress. uncomfortable, Behavior is calm, cooperative, eh3 appropriate for age. Pain: Complains of pain in groin Pain does not radiate. Pain currently is 10 out of 10 on a pain scale. Quality of pain is described as sharp, squeezing, throbbing, Pain began suddenly, 4 hours ago. Is continuous. Neuro: Level of Consciousness is awake, alert, obeys commands, Oriented to person, place, time, situation. Cardiovascular: Capillary refill < 3 seconds Patient's skin is warm and dry. Respiratory: Airway is patent Respiratory effort is even, unlabored, Respiratory pattern is regular, symmetrical. GI: No signs and/or symptoms were reported involving the gastrointestinal system. Abdomen is flat, non-distended. : 6cm diameter, round swollen bulge at mons pubis. 12:12 EENT: No signs and/or symptoms were reported regarding the EENT system. Derm: No signs eh3 and/or symptoms reported regarding the dermatologic system. Musculoskeletal: Circulation, motion, and sensation intact. Range of motion: intact in all extremities. 13:00 Reassessment: Patient and/or family updated on plan of care and expected duration. Pain eh3 level reassessed. Patient is alert, oriented x 3, equal unlabored respirations, skin warm/dry/pink. 14:00 Reassessment: Patient and/or family updated on plan of care and expected duration. Pain eh3 level reassessed. Patient is alert, oriented x 3, equal unlabored respirations, skin warm/dry/pink. 15:00 Reassessment: Patient and/or family updated on plan of care and expected duration. Pain kb3 level reassessed. Patient is alert, oriented x 3, equal unlabored respirations, skin warm/dry/pink. 15:30 Reassessment: Patient and/or family updated on plan of care and expected duration. Pain kb3 level reassessed. Patient is alert, oriented x 3, equal unlabored respirations, skin warm/dry/pink. 16:30 Reassessment: Patient and/or family updated on plan of care and expected duration. Pain kb3 level reassessed. Patient is alert, oriented x 3, equal unlabored respirations, skin warm/dry/pink. 17:00 Reassessment: Patient and/or family updated on plan of care and expected duration. Pain kb3 level reassessed. Patient is alert, oriented x 3, equal unlabored respirations, skin warm/dry/pink. 18:00 Reassessment: Patient and/or family updated on plan of care and expected duration. Pain kb3 level reassessed. Patient is alert, oriented x 3, equal unlabored respirations, skin warm/dry/pink. 19:00 Reassessment: Patient and/or family updated on plan of care and expected duration. Pain eh3 level reassessed. Patient is alert, oriented x 3, equal unlabored respirations, skin warm/dry/pink. 20:00 Reassessment: Patient and/or family updated on plan of care and expected duration. Pain eh3 level reassessed. Patient is alert, oriented x 3, equal unlabored respirations, skin warm/dry/pink. 21:00 Reassessment: Patient and/or family updated on plan of care and expected duration. Pain eh3 level reassessed. Patient is alert, oriented x 3, equal unlabored respirations, skin warm/dry/pink. Vital Signs: 11:54 BP 185 / 112; Pulse 57; Resp 16; Temp 97.2; Pulse Ox 100% ; Weight 49.9 kg; Height 5 jh5 ft. 5 in. (165.10 cm); Pain 8/10; 12:12 BP 141 / 100; Pulse 52; Resp 16; Pulse Ox 100% on R/A; eh3 13:00 BP 163 / 97; Pulse 50; Resp 16; Pulse Ox 99% on R/A; eh3 14:30 BP 141 / 96; Pulse 64; Resp 16; Pulse Ox 100% on R/A; eh3 15:30 BP 187 / 117; Pulse 60; Resp 16; Pulse Ox 100% on R/A; kb3 16:00 BP 151 / 110; Pulse 58; Resp 16; Pulse Ox 100% on R/A; kb3 17:00 BP 180 / 129; Pulse 56; Resp 16; Pulse Ox 100% on R/A; kb3 18:00 BP 177 / 120; Pulse 63; Resp 16; Pulse Ox 100% on R/A; kb3 19:00 BP 153 / 115; Pulse 60; Resp 16; Pulse Ox 100% on R/A; eh3 20:00 BP 147 / 106; Pulse 59; Resp 16; Pulse Ox 100% on R/A; eh3 21:00 BP 137 / 100; Pulse 59; Resp 18; Pulse Ox 100% on R/A; eh3 11:54 Body Mass Index 18.30 (49.90 kg, 165.10 cm) [facility] ED Course: 11:49 Patient arrived in ED. rg4 11:52 [facility] snw 11:52 Luis Cosme MD is Attending Physician. snw 11:58 Triage completed. [facility] 11:58 Arm band placed on right wrist. [facility] 12:05 Nasrin Patton, MARCK is Primary Nurse. eh3 12:12 Patient has correct armband on for positive identification. Bed in low position. Call eh3 light in reach. Side rails up X 1. Pulse ox on. NIBP on. Door closed. Noise minimized. Warm blanket given. 12:48 Missed attempt(s): 22 gauge in left forearm. Bleeding controlled, band aid applied, eh3 catheter tip intact. 15:29 CT Abd/Pelvis - IV Contrast Only In Process Unspecified. EDMS 15:33 No provider procedures requiring assistance completed. Inserted saline lock: 22 gauge kb3 in right forearm, using aseptic technique. placed in CT. 17:02 SARS RAPID Sent. kb3 19:31 Dylan Baltazar MD is Hospitalizing Provider. snw 22:28 Patient admitted, IV remains in place. eh3 Administered Medications: 14:08 Drug: fentaNYL (PF) 25 mcg Route: IVP; Site: left jugular; eh3 14:36 Follow up: Response: Pain is decreased eh3 14:10 Drug: Valium (diazepam) 5 mg Route: IVP; Site: left jugular; eh3 14:36 Follow up: Response: Anxiety decreased eh3 14:10 Drug: NS 0.9% 1000 ml Route: IV; Rate: 75 ml/hr; Site: left jugular; eh3 22:28 Follow up: IV Status: Infusion continued upon admission; IV Intake: 600ml eh3 15:08 Drug: fentaNYL (PF) 50 mcg Route: IVP; Site: left jugular; eh3 15:44 Follow up: Response: Pain is decreased kb3 15:10 Drug: Potassium Chloride 40 mEq Route: PO; kb3 15:48 Follow up: Response: No adverse reaction kb3 15:53 Drug: NS 0.9% with KCl 40 mEq/L 1000 ml Route: IV; Rate: calculated rate; Site: left kb3 jugular; 05/08 00:35 Follow up: IV Status: Infusion continued upon admission; IV Intake: 850ml [facility] 05/07 16:26 Drug: Ketorolac 15 mg Route: IVP; Site: right antecubital; kb3 17:12 Follow up: Response: Pain is unchanged, physician notified 3 18:00 Drug: Potassium Chloride 20 mEq Route: PO; kb3 18:57 Follow up: Response: No adverse reaction 3 18:00 Drug: cloNIDine 0.1 mg Route: PO; kb3 18:56 Follow up: Response: No adverse reaction 3 18:00 Drug: amLODIPine 5 mg Route: PO; kb3 18:57 Follow up: Response: No adverse reaction 3 18:00 Drug: XANax (alprazolam) Tablet 0.5 mg Route: PO; kb3 18:57 Follow up: Response: Anxiety decreased 3 19:07 Drug: hydrALAZINE 5 mg Route: IVP; Site: right antecubital; kb3 19:45 Follow up: Response: Blood pressure is unchanged 3 19:45 Drug: morphine 2 mg Route: IVP; Infused Over: 4 mins; Site: right forearm; eh3 21:26 Follow up: Response: Pain is decreased [facility] Medication: 22:27 VIS not applicable for this client. [facility] Intake: 22:28 IV: 600ml; Total: 600ml. [facility] 05/08 00:35 IV: 850ml; Total: 1450ml. [facility] Outcome: 05/07 19:31 Decision to Hospitalize by Provider. snw 22:28 Admitted to Med/surg accompanied by nurse, via stretcher, room 409, Report called to [address] 22:28 Condition: stable 22:28 Instructed on the need for admit. 22:28 Patient left the ED. [facility] Signatures: Dispatcher [employer] EDDee Edgar FNP-C FNP-Ana Paula Loco rg4 Adelia Claire, RN RN jh5 Nasrin Patton, RN RN 3 Lucita Velez, RN RN kb3 Corrections: (The following items were deleted from the chart) 12:13 12:10 : 3 [facility] 05/08 00:36 11/10 22:28 IV Status: Infusion continued upon admission eh3 eh3
--- NOTE | 2022-05-07 19:32 | EDPHYS ---
Physician Documentation [facility] Name: Margie Garcia Age: 51 yrs Sex: Female : 1970 Arrival Date: 05/07/2022 Time: 11:49 Bed 25 Private MD: ED Physician Luis Cosme HPI: 05/07 12:20 This 51 yrs old Female presents to ER via Ambulatory with complaints of Knot On Pelvic snw Area. 12:20 Onset: The symptoms/episode began/occurred acutely. Associated signs and symptoms: snw Pertinent positives: abdominal pain. Modifying factors: The patient symptoms are alleviated by nothing. The patient has not experienced similar symptoms in the past. It is unknown whether or not the patient has recently seen a physician. 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 - Social history:: Smoking status: Patient reports the use of cigarette tobacco products, denies chronic smoking, but will smoke occasionally. ROS: 12:19 Constitutional: Negative for fever, chills, and weight loss, Eyes: Negative for injury, snw pain, redness, and discharge, ENT: Negative for injury, pain, and discharge, Neck: Negative for injury, pain, and swelling, Cardiovascular: Negative for chest pain, palpitations, and edema, Respiratory: Negative for shortness of breath, cough, wheezing, and pleuritic chest pain, Back: Negative for injury and pain, : Negative for injury, bleeding, discharge, and swelling, MS/Extremity: Negative for injury and deformity, Skin: Negative for injury, rash, and discoloration, Neuro: Negative for headache, weakness, numbness, tingling, and seizure. 12:19 Abdomen/GI: Positive for abdominal pain, of the left lower quadrant. Exam: 12:16 Constitutional: This is a well developed, well nourished patient who is awake, alert, snw and in no acute distress. Head/Face: Normocephalic, atraumatic. Eyes: Pupils equal round and reactive to light, extra-ocular motions intact. Lids and lashes normal. Conjunctiva and sclera are non-icteric and not injected. Cornea within normal limits. Periorbital areas with no swelling, redness, or edema. ENT: Nares patent. No nasal discharge, no septal abnormalities noted. Tympanic membranes are normal and external auditory canals are clear. Oropharynx with no redness, swelling, or masses, exudates, or evidence of obstruction, uvula midline. Mucous membranes moist. Neck: Trachea midline, no thyromegaly or masses palpated, and no cervical lymphadenopathy. Supple, full range of motion without nuchal rigidity, or vertebral point tenderness. No Meningismus. Cardiovascular: Regular rate and rhythm with a normal S1 and S2. No gallops, murmurs, or rubs. Normal PMI, no JVD. No pulse deficits. Respiratory: Lungs have equal breath sounds bilaterally, clear to auscultation and percussion. No rales, rhonchi or wheezes noted. No increased work of breathing, no retractions or nasal flaring. Back: No spinal tenderness. No costovertebral tenderness. Full range of motion. Skin: Warm, dry with normal turgor. Normal color with no rashes, no lesions, and no evidence of cellulitis. MS/ Extremity: Pulses equal, no cyanosis. Neurovascular intact. Full, normal range of motion. Neuro: Awake and alert, GCS 15, oriented to person, place, time, and situation. Cranial nerves II-XII grossly intact. Motor strength 5/5 in all extremities. Sensory grossly intact. Cerebellar exam normal. Normal gait. Psych: Awake, alert, with orientation to person, place and time. Behavior, mood, and affect are within normal limits. 12:16 Abdomen/GI: Inspection: abdomen appears normal, Bowel sounds: normal, Palpation: moderate abdominal tenderness, in the right lower quadrant. Vital Signs: 11:54 BP 185 / 112; Pulse 57; Resp 16; Temp 97.2; Pulse Ox 100% ; Weight 49.9 kg; Height 5 jh5 ft. 5 in. (165.10 cm); Pain 8/10; 12:12 BP 141 / 100; Pulse 52; Resp 16; Pulse Ox 100% on R/A; eh3 13:00 BP 163 / 97; Pulse 50; Resp 16; Pulse Ox 99% on R/A; eh3 14:30 BP 141 / 96; Pulse 64; Resp 16; Pulse Ox 100% on R/A; eh3 15:30 BP 187 / 117; Pulse 60; Resp 16; Pulse Ox 100% on R/A; kb3 16:00 BP 151 / 110; Pulse 58; Resp 16; Pulse Ox 100% on R/A; kb3 17:00 BP 180 / 129; Pulse 56; Resp 16; Pulse Ox 100% on R/A; kb3 18:00 BP 177 / 120; Pulse 63; Resp 16; Pulse Ox 100% on R/A; kb3 19:00 BP 153 / 115; Pulse 60; Resp 16; Pulse Ox 100% on R/A; eh3 20:00 BP 147 / 106; Pulse 59; Resp 16; Pulse Ox 100% on R/A; eh3 21:00 BP 137 / 100; Pulse 59; Resp 18; Pulse Ox 100% on R/A; eh3 11:54 Body Mass Index 18.30 (49.90 kg, 165.10 cm) 5 Procedures: 14:06 Peripheral line: by aseptic technique a peripheral line was placed in the left external snw jugular vein. MDM: 12:10 Patient medically screened. snw 12:27 Data reviewed: vital signs, nurses notes. Data interpreted: Pulse oximetry: on room air snw is 100 %. Interpretation: normal. Counseling: I had a detailed discussion with the patient and/or guardian regarding: the historical points, exam findings, and any diagnostic results supporting the discharge/admit diagnosis, the presence of at least one elevated blood pressure reading (>120/80) during this emergency department visit. Physician consultation: Keagan Nguyen MD was called at 12:27, was contacted at 12:27, regarding consult, in the emergency department to see patient at 12:28, Dr. Nguyen reduced US in dept. Requests CT. 16:09 Physician consultation:. snw 16:18 Physician consultation: Keagan Nguyen MD regarding consult, patient's condition, snw outpatient follow-up, pt to f/u in clinic for hernia repair on outpatient basis soon, pt will be admitted to the hospital for medicine management of hypokalemia. 16:27 Physician consultation: Dylan Baltazar MD was called at 16:28, regarding admission, to snw the telemetry unit. 17:12 ED course: Dr. Baltazar recommends 20meq po now and repeat K at 1830. snw 05/07 12:16 Order name: CBC with Diff; Complete Time: 14:53 snw 05/07 12:16 Order name: CMP; Complete Time: 14:57 snw 05/07 16:21 Order name: SARS RAPID; Complete Time: 17:37 snw 05/07 17:12 Order name: Magnesium; Complete Time: 18:59 snw 05/07 18:26 Order name: Potassium; Complete Time: 18:59 snw 05/07 12:26 Order name: CT Abd/Pelvis - IV Contrast Only; Complete Time: 15:58 snw 05/07 12:26 Order name: Consult Surgery-Keagan Nguyen MD (GENERAL SURGERY) snw 05/07 17:12 Order name: Misc. Order: K level at 1830; Complete Time: 18:10 snw Administered Medications: 14:08 Drug: fentaNYL (PF) 25 mcg Route: IVP; Site: left jugular; eh3 14:36 Follow up: Response: Pain is decreased eh3 14:10 Drug: Valium (diazepam) 5 mg Route: IVP; Site: left jugular; eh3 14:36 Follow up: Response: Anxiety decreased eh3 14:10 Drug: NS 0.9% 1000 ml Route: IV; Rate: 75 ml/hr; Site: left jugular; eh3 22:28 Follow up: IV Status: Infusion continued upon admission; IV Intake: 600ml 3 15:08 Drug: fentaNYL (PF) 50 mcg Route: IVP; Site: left jugular; eh3 15:44 Follow up: Response: Pain is decreased kb3 15:10 Drug: Potassium Chloride 40 mEq Route: PO; kb3 15:48 Follow up: Response: No adverse reaction kb3 15:53 Drug: NS 0.9% with KCl 40 mEq/L 1000 ml Route: IV; Rate: calculated rate; Site: left kb3 jugular; 05/08 00:35 Follow up: IV Status: Infusion continued upon admission; IV Intake: 850ml 3 05/07 16:26 Drug: Ketorolac 15 mg Route: IVP; Site: right antecubital; kb3 17:12 Follow up: Response: Pain is unchanged, physician notified kb3 18:00 Drug: Potassium Chloride 20 mEq Route: PO; kb3 18:57 Follow up: Response: No adverse reaction kb3 18:00 Drug: cloNIDine 0.1 mg Route: PO; kb3 18:56 Follow up: Response: No adverse reaction kb3 18:00 Drug: amLODIPine 5 mg Route: PO; kb3 18:57 Follow up: Response: No adverse reaction kb3 18:00 Drug: XANax (alprazolam) Tablet 0.5 mg Route: PO; kb3 18:57 Follow up: Response: Anxiety decreased kb3 19:07 Drug: hydrALAZINE 5 mg Route: IVP; Site: right antecubital; kb3 19:45 Follow up: Response: Blood pressure is unchanged eh3 19:45 Drug: morphine 2 mg Route: IVP; Infused Over: 4 mins; Site: right forearm; eh3 21:26 Follow up: Response: Pain is decreased eh3 Disposition Summary: 05/07/22 19:31 Hospitalization Ordered Hospitalization Status: Observation snw Provider: Dylan Baltazar Location: Telemetry/MedSurg (observation) snw Condition: Stable snw Problem: new snw Symptoms: are unchanged snw Bed/Room Type: Standard snw Room Assignment: 409(05/07/22 20:28) cg Diagnosis - Hypokalemia snw Forms: - Medication Reconciliation Form snw - SBAR form snw Addendum: 05/11/2022 09:02 Co-signature as Attending Physician, Luis Cosme MD. r n Signatures: Dispatcher [employer] EDMS Dee Brock, DRAW FRAME TENDER-C DRAW FRAME TENDER-Csnw Luis Cosme MD MD rn Attema, Lee DRAW FRAME TENDER-C DRAW FRAME TENDER-Cla1 Erin Figueroa RN RN cg Adelia Claire RN RN 5 Nasrin Patton RN RN 3 Lucita Velez, RN RN kb3 Corrections: (The following items were deleted from the chart) 05/07 12:29 12:17 Pelvis Complete+US.RAD.BRZ ordered. EDMS EDMS 12:29 12:20 Pelvis Complete+US.RAD.BRZ ordered. EDMS EDMS 17:13 16:18 Physician consultation: Keagan Nguyen MD regarding consult, patient's condition, snw outpatient follow-up, pt to f/u in clinic for hernia repair on outpatient basis soon, pt will be admitted to the hospital for medicine management of hypokalemia snw 20:28 19:31 snw cg
[2022-05-07] MEDS ORDERED: MORPHINE 4 MG/ML SYR ONE (19:41)
--- NOTE | 2022-05-07 20:56 | P.HP ---
Certification for Inpatient Patient admitted to: Observation With expected LOS: <2 Midnights Patient will require the following post-hospital care: None Practitioner: I am a practitioner with admitting privileges, knowledge of patient current condition, hospital course, and medical plan of care. Services: Services provided to patient in accordance with Admission requirements found in Title 42 Section 412.3 of the Code of Federal Regulations <Fabiano Caldwell - Last Filed: 05/07/22 20:52> Patient History Date of Service: 05/07/22 Reason for admission: Hypokalemia, hypertension History of Present Illness: 51-year-old female with history of hypertension, migraines presents to the emergency department for left groin pain. Reports the pain began today, she was evaluated here in the emergency department her labs were significant for marked hypokalemia with initial potassium of 2.5 CT with IV contrast was performed whi ch revealed a small right inguinal hernia which now contains fluid and may explain patient's reported palpable abnormality no complicating features. Patient was seen and examined by general surgery at bedside to reduce hernia, recommended follow-up in office. ED provider attempt to replace potassium and recheck but potassium level did not respond appropriately on the increase from 2.5-2.9. ED provider wishes to admit under observation for hypokalemia. Patient also noted to be significantly hypertensive with blood pressure in the 150s to 160s over 110-120, patient reports that this blood pressure is very close to her baseline no acute component is noted she takes clonidine 0.3 mg 3 times daily at home as well as carvedilol 25 mg p.o. twice daily. She has not taken her medications today, she was given amlodipine 5 mg, clonidine and hydralazine in the ED. We will admit for further evaluation and management of hypokalemia, hypertension. - Past Medical/Surgical History -: Hypertension -: Migraine -: Baack pain -: None Psychosocial/ Personal History: Patient lives at home with her son - Family History Father -: Hypertension Mother -: Hypertension - Social History Smoking Status: Light Tobacco smoker (1-9 cigarettes/day) Counseled patient to stop smoking for: less than 10 minutes Alcohol use: No CD- Drugs: No Caffeine use: Yes Place of Residence: Home <Fabiano Caldwell - Last Filed: 05/07/22 20:52> Date of Service: 05/08/22 <Dylan Baltazar - Last Filed: 05/08/22 18:11> Allergies sumatriptan [From Imitrex] Allergy (Verified 10/07/19 16:20) Hives Home Medications: RX: Citalopram Hydrobromide [Celexa] 40 mg PO BEDTIME 10/07/19 RX: Gabapentin 600 mg PO BIDP PRN 10/07/19 RX: Trazodone [Desyrel*] 200 mg PO BEDTIME 10/07/19 RX: Alprazolam [Xanax] 2 mg PO BID PRN #6 10/12/19 RX: carvediloL [Coreg*] 25 mg PO BID tab 10/12/19 RX: cloNIDine HCL [Catapres*] 0.3 mg PO TID tablet 10/12/19 RX: Rizatriptan Benzoate [Rizatriptan] 10 mg PO DAILY PRN 05/08/22 RX: Topiramate [Topamax] 50 mg PO DAILY PRN 05/08/22 Review of Systems 10-point ROS is otherwise unremarkable Gastrointestinal: Abdominal Pain <Fabiano Caldwell - Last Filed: 05/07/22 20:52> Physical Examination - Physical Exam General: Alert, In no apparent distress, Oriented x3 HEENT: Atraumatic, PERRLA, Mucous membr. moist/pink, EOMI, Sclerae nonicteric Neck: Supple, 2+ carotid pulse no bruit, No LAD, Without JVD or thyroid abnormality Respiratory: Clear to auscultation bilaterally, Normal air movement Cardiovascular: Regular rate/rhythm, Normal S1 S2 Capillary refill: <2 Seconds Gastrointestinal: Normal bowel sounds, No masses, No rebound, No guarding, Tenderness (Right inguinal tenderness) Musculoskeletal: No tenderness Integumentary: No rashes Neurological: Normal gait, Normal speech, Normal strength at 5/5 x4 extr, Normal tone, Normal affect Lymphatics: No axilla or inguinal lymphadenopathy - Studies Laboratory Data (last 24 hrs) 05/07/22 18:32: Potassium 2.9 L* D 05/07/22 18:32: Magnesium 2.0 05/07/22 14:18: Sodium 142, Potassium 2.5 L*, BUN 11, Creatinine 0.57, Glucose 95, Total Bilirubin 0.4, AST 12 L, ALT 18, Alkaline Phosphatase 51 05/07/22 14:18: WBC 6.70, Hgb 10.3 L, Hct 29.9 L, Plt Count 247 <Fabiano Caldwell - Last Filed: 05/07/22 20:52> - Studies Laboratory Data (last 24 hrs) 05/07/22 18:32: Potassium 2.9 L* D 05/07/22 18:32: Magnesium 2.0 <Dylan Baltazar - Last Filed: 05/08/22 18:11> Assessment and Plan - Plan Assessment: Hypokalemia Uncontrolled primary hypertension Right inguinal hernia S/P bedside closed reduction Plan: Hypokalemia: Replaced in ED, potassium still currently infusing repeat level 2.9. We will continue to infuse potassium recheck potassium at 2300, protocol in place. Magnesium checked and is normal. Monitor on telemetry during potassium replacement. Uncontrolled primary hypertension: Patient currently taking clonidine 0.3 mg 3 times daily as well as carvedilol 25 mg p.o. twice daily she was given amlodipine 5 mg p.o. in the emergency department her heart rate has been in the 50s during her stay in the ED for this reason we have held the carvedilol, lisinopril, amlodipine ordered for the morning. Patient reports her blood pressure runs in the 150s to 160s over 110-120 at home. She will need to follow-up with PCP for further management of her blood pressure medications. Right inguinal hernia S/P bedside closed reduction: Seen by surgery at bedside, hernia reduced. Surgery recommends outpatient follow-up. DVT PPX: Lovenox Code status: Full Discharge Plan: Home Plan to discharge in: 24 Hours - Advance Directives Does patient have a Living Will: No Does patient have a Durable POA for Healthcare: No - Code Status/Comfort Care Code Status Assessed: Yes (Full code) Critical Care: No Time Spent Managing Pts Care (In Minutes): 70 <Fabiano Caldwell - Last Filed: 05/07/22 20:52> Physician Review: Patient Assessed, Agree with Above Assessment and Plan <Dylan Baltazar - Last Filed: 05/08/22 18:11>
[2022-05-07] MEDS ORDERED: ACETAMINOPHEN 500 MG TAB PO PRN (21:52)
[2022-05-07] MEDS ORDERED: lisinopriL 10 MG TAB PO SCH (21:52)
[2022-05-07] MEDS ORDERED: ALPRAZOLAM 1 MG TABLET PO PRN (21:52)
[2022-05-07 23:12] VITALS: O2SAT 100
[2022-05-07] MEDS: MORPHINE 2 MG/ML SYR IV PRN (23:18)
[2022-05-07 23:24] LABS: Magnesium 1.8 mg/dL (1.8-2.4)
[2022-05-07 23:26] LABS: Potassium 2.8 mmol/L (3.5-5.1)
[2022-05-07 23:42] VITALS: BMI 20.2
[2022-05-07] MEDS: KCL 20 MEQ/100 mL IVPB 20 MEQ/100 ML BAG IV SCH (23:45)
[2022-05-07] MEDS ORDERED: MAGNESIUM SULFATE 1 gm IVPB 1 GM/100 ML BAG IV ONE (23:56)
[2022-05-08] MEDS: NA CHLORIDE 0.9% 1,000 ML with POTASSIUM CL 40 MEQ IV SCH ×4 (00:10→08:20)
[2022-05-08] MEDS ORDERED: NA CHLORIDE 0.9% 1,000 ML ONE (01:07)
[2022-05-08] MEDS: KCL 20 MEQ/100 mL IVPB 20 MEQ/100 ML BAG IV SCH ×2 (01:45→03:45)
[2022-05-08] MEDS: MORPHINE 2 MG/ML SYR IV PRN ×5 (03:38→23:20)
[2022-05-08] MEDS: ONDANSETRON 4 MG/2 ML VIAL IV PRN ×4 (03:41→22:10)
[2022-05-08 04:12] LABS: Absolute Lymphocytes (CBC) 2.6 K/uL (0.7-4.9); Hematocrit 36.5 % (36.0-45.0); Lymphocytes % 37.5 % (15.3-44.8); MCV 96.3 fL (80-100); MPV 7.8 fL (7.6-11.3); RBC Red Blood Cell Count 3.79 M/uL (3.86-4.86)
[2022-05-08 04:31] LABS: Albumin 3.6 g/dL (3.4-5.0); Bilirubin Total 0.5 mg/dL (0.2-1.0); Magnesium 2.3 mg/dL (1.8-2.4); Potassium 3.6 mmol/L (3.5-5.1); Protein, Total 6.8 g/dL (6.4-8.2)
[2022-05-08] MEDS ORDERED: TOPIRAMATE 25 MG TAB PO ONE (05:11)
[2022-05-08] MEDS ORDERED: MAGNESIUM SULFATE 1 gm IVPB 1 GM/100 ML BAG IV ONE (07:52)
[2022-05-08] MEDS ORDERED: INFLUENZA VACCINE (for 6+ mo) 0.5 ML DOSE IMVAC ONE (08:00)
--- NOTE | 2022-05-08 08:11 | P.DS ---
Admission Date: 05/07/22 Discharge Date: 05/08/22 Reason for Admission: Hypokalemia, hypertension Vital Signs/Physical Exam: Temp Pulse Resp BP Pulse Ox 97.9 F 75 16 159/106 H 99 05/08/22 04:00 05/08/22 04:00 05/08/22 04:00 05/08/22 04:00 05/08/22 04:00 Laboratory Data at Discharge: WBC 7.00 K/uL (4.3-10.9) 05/08/22 03:32 Hgb 12.2 g/dL (12.0-15.0) D 05/08/22 03:32 Hct 36.5 % (36.0-45.0) 05/08/22 03:32 Plt Count 274 K/uL (152-406) 05/08/22 03:32 Sodium 142 mmol/L (136-145) 05/08/22 03:32 Potassium 3.6 mmol/L (3.5-5.1) D 05/08/22 03:32 BUN 5 mg/dL (7-18) L 05/08/22 03:32 Creatinine 0.55 mg/dL (0.55-1.3) 05/08/22 03:32 Glucose 96 mg/dL (74-106) 05/08/22 03:32 Magnesium Cancelled 05/08/22 05:00 Total Bilirubin 0.5 mg/dL (0.2-1.0) 05/08/22 03:32 AST 14 U/L (15-37) L 05/08/22 03:32 ALT 19 U/L (12-78) 05/08/22 03:32 Alkaline Phosphatase 58 U/L (45-117) 05/08/22 03:32 Home Medications: Citalopram Hydrobromide [Celexa] 40 mg PO BEDTIME 10/07/19 Gabapentin 600 mg PO BIDP PRN 10/07/19 Trazodone [Desyrel*] 200 mg PO BEDTIME 10/07/19 Alprazolam [Xanax] 2 mg PO BID PRN #6 10/12/19 carvediloL [Coreg*] 25 mg PO BID tab 10/12/19 cloNIDine HCL [Catapres*] 0.3 mg PO TID tablet 10/12/19 Rizatriptan Benzoate [Rizatriptan] 10 mg PO DAILY PRN 05/08/22 Topiramate [Topamax] 50 mg PO DAILY PRN 05/08/22 Followup: NONE,NONE [Primary Care Provider] -
[2022-05-08] MEDS ORDERED: HYDROCODONE/APAP 5/325 MG TAB PO ONE (08:48)
[2022-05-08] MEDS: ENOXAPARIN 40 MG/0.4 ML SQ SCH (09:00)
[2022-05-08] MEDS ORDERED: AMLODIPINE 5 MG TAB PO SCH (09:00)
[2022-05-08] MEDS: HYDRALAZINE HCL 20 MG/ML VIAL IV PRN ×2 (09:08→15:24)
[2022-05-08] MEDS ORDERED: MECLIZINE HCL 12.5 MG TAB PO ONE (10:00)
[2022-05-08] MEDS ORDERED: NA CHLORIDE 0.9% 1,000 ML IV ONE (11:54)
[2022-05-08] MEDS ORDERED: PROMETHAZINE INJ 25 MG/ML AMP IV ONE (11:55)
[2022-05-08] MEDS: CLONIDINE HCL 0.3 MG TAB PO ONE ×2 (11:56→12:08)
[2022-05-08] MEDS ORDERED: LABETALOL 20 MG/4ML SYRINGE IV ONE (12:22)
--- NOTE | 2022-05-08 13:03 | RAD REPORT ---
EXAM DESCRIPTION: CT - Head Brain Wo Cont - 05/08/2022 12:57 pm CLINICAL HISTORY: headache COMPARISON: Head Brain Wo Cont dated 08/26/2019 TECHNIQUE: All CT scans are performed using dose optimization technique as appropriate and may inclu de automated exposure control or mA/KV adjustment according to patient size. FINDINGS: No intracranial hemorrhage, hydrocephalus or extra-axial fluid collection.No areas of brai n edema or evidence of midline shift. The paranasal sinuses and mastoids are clear. The calvarium is intact. IMPRESSION: No acute intracranial abnormality.
[2022-05-08] MEDS: Ringers Lactate 1,000 ML IV SCH (15:58)
[2022-05-08] MEDS: PROMETHAZINE INJ 25 MG/ML AMP IV PRN ×2 (17:01→23:21)
[2022-05-08 17:02] LABS: Specific Gravity 1.008 (1.005-1.030); Urine Bilirubin NEGATIVE (Negative); Urine Blood Negative (Negative); Urine Clarity Clear (Clear); Urine Color Colorless (Yellow); Urine Glucose NEGATIVE (Negative); Urine Protein NEGATIVE (Negative); Urine Urobilinogen Normal (Normal); Urine pH 7.5 (5.0-7.0)
[2022-05-08 17:09] LABS: Barbiturates NEGATIVE (NEGATIVE); Benzodiazepines NEGATIVE (NEGATIVE); Cocaine NEGATIVE (NEGATIVE); METHAMPHETAM NEGATIVE (NEGATIVE); Methadone NEGATIVE (NEGATIVE); Opiates NEGATIVE (NEGATIVE); Phencyclidine NEGATIVE (NEGATIVE); THC Cannibis POSITIVE (NEGATIVE)
--- NOTE | 2022-05-08 18:16 | P.PN ---
Subjective Date of Service: 05/08/22 Chief Complaint: Hypokalemia, hypertension No acute events overnight. Potassium has corrected this morning. Initial plan for discharge; however, she continues to experience progressive intractable nausea and vomiting. She is requesting hydromorphone. Review of Systems 10-point ROS is otherwise unremarkable Gastrointestinal: Nausea, Vomiting, Abdominal Pain Physical Examination - Vital Signs Temperature: 96.9 F Blood Pressure: 186/108 Pulse: 70 Respirations: 18 Pulse Ox (%): 100 - Physical Exam General: Alert, Oriented x3, Mild distress HEENT: Atraumatic, PERRLA, Mucous membr. moist/pink, EOMI, Sclerae nonicteric Neck: Supple, JVD not distended Respiratory: Clear to auscultation bilaterally, Normal air movement Cardiovascular: No edema, Regular rate/rhythm, Normal S1 S2, No gallops, No rubs, No murmurs Gastrointestinal: Soft and benign, Non-distended, No rebound, No guarding, Tenderness Musculoskeletal: No clubbing Integumentary: No rashes Neurological: Normal speech, Cranial nerves 3-12 intact, Normal affect - Studies Laboratory Data (last 24 hrs) 05/07/22 18:32: Potassium 2.9 L* D 05/07/22 18:32: Magnesium 2.0 Assessment And Plan - Plan # Intractable Abdominal Pain, Nausea, and Vomiting secondary to Cannabis Hyperemesis Syndrome # Hypokalemia secondary to Vomiting (resolved) # Substance Use Disorder (Marijuana) - Evaluation thus far: - CT abdomen/pelvis = "no acute intra-abdominal or pelvic finding. Small right inguinal hernia which now contains fluid and may explain the patient's reported palpable abnormality. No complicating features." - CT head = "no acute intracranial abnormality." - UA = trace ketones - UDS = positive for THC - Management plan: - NPO - advance as diet as tolerated - Ordered Lactated Ringers' @ 75 mL/hr - Alternate prochlorperazine and ondansetron - PRN morphine for pain - Substance cessation counseling provided # Hypertensive Urgency - Resume home clonidine and carvedilol - PRN hydralazine # Right Inguinal Hernia s/p Closed Reduction - General Surgery consulted and spoke with Dr. Nguyen - He reduced hernia and recommended outpatient follow-up Dylan Baltazar M.D.
[2022-05-08] MEDS: CLONIDINE HCL 0.3 MG TAB PO SCH (19:44)
[2022-05-08 20:55] LABS: Hematocrit 37.4 % (36.0-45.0)
[2022-05-09] MEDS ORDERED: SODIUM CHLORIDE 0.9% 10ML INJ IV PRN (03:04)
[2022-05-09] MEDS: MORPHINE 2 MG/ML SYR IV PRN ×2 (03:21→08:26)
[2022-05-09] MEDS: HYDRALAZINE HCL 20 MG/ML VIAL IV PRN (03:22)
[2022-05-09] MEDS: Ringers Lactate 1,000 ML IV SCH (04:29)
[2022-05-09] MEDS: PROMETHAZINE INJ 25 MG/ML AMP IV PRN (05:56)
[2022-05-09] MEDS ORDERED: carvediloL 25 MG TAB PO SCH (06:00)
[2022-05-09 06:52] LABS: Hematocrit 36.7 % (36.0-45.0)
[2022-05-09 07:15] LABS: Potassium 3.2 mmol/L (3.5-5.1)
[2022-05-09] MEDS ORDERED: PANTOPRAZOLE 40MG TABLET PO SCH (07:30)
[2022-05-09] MEDS: ENOXAPARIN 40 MG/0.4 ML SQ SCH (08:26)
[2022-05-09] MEDS: ONDANSETRON 4 MG/2 ML VIAL IV PRN (08:26)
[2022-05-09] MEDS: CLONIDINE HCL 0.3 MG TAB PO SCH (08:26)
[2022-05-09] MEDS ORDERED: PANTOPRAZOLE 40 MG INJ IVP SCH (09:00)
[2022-05-09 09:05] VITALS: TEMP 98.8
[2022-05-09 09:53] VITALS: BP 152/103
--- NOTE | 2022-05-09 10:28 | P.DS ---
Admission Date: 05/07/22 Discharge Date: 05/09/22 Disposition: ROUTINE DISCHARGE Reason for Admission: Hypokalemia, hypertension Hospital Course: DIAGNOSES: # Intractable Abdominal Pain, Nausea, and Vomiting secondary to Cannabis Hyper emesis Syndrome (improved) # Hypokalemia secondary to Vomiting (resolved) # Substance Use Disorder (Marijuana) # Hypertensive Urgency # Migraine Headaches # Right Inguinal Hernia s/p Closed Reduction HOSPITAL COURSE: Ms. Margie Garcia is a 51 year old female with a past medical history significant for hypertension and migraine headaches who was admitted to the [facility] [place] on 05/07/2022 for intractable abdominal pain, nausea, and vomiting. She was admitted to the Medicine service. Upon further evaluation, her CT abdomen/pelvis revealed, "no acute intra-abdominal or pelvic finding. Small right inguinal hernia which now contains fluid and may explain the patient's reported palpable abnormality. No complicating features." Her CT head revealed, "no acute intracranial abnormality." Her nausea and vomiting were complicated by hypokalemia, which was replaced. She was started on an alternating regimen of ondansetron and prochlorperazine, with significant improvement in her symptoms. She was counseled on the importance of marijuana cessation and verbalized her understanding. In regards, to her right inguinal hernia and migraine headaches, she was advised to follow-up with General Surgery and Neurology, respectively. On 05/09/2022, she was seen on morning rounds and deemed medically stable for discharge. she was discharged with instructions to schedule follow-up appointments with her PCP, with Gastroenterology (Dr. Weir), with Neurology (Dr. Whipple), and with General Surgery (Dr. Nguyen). She was provided prescriptions for prochlorperazine and ondansetron. She was given the opportunity to ask questions and reported no further questions. Furthermore, all questions were answered to the best of my ability. A copy of this discharge summary will be sent to the above providers to facilitate continuity of care. Today, I personally spent 20 minutes on her case, of which greater than 50% of the time was spent in patient education, counseling, and coordination of care as described above. - Physical Exam General: Alert, Oriented x3, No acute distress HEENT: Atraumatic, PERRLA, Mucous membr. moist/pink, EOMI, Sclerae nonicteric Neck: Supple, JVD not distended Respiratory: Clear to auscultation bilaterally, Normal air movement Cardiovascular: No edema, Regular rate/rhythm, Normal S1 S2, No gallops, No rubs, No murmurs Gastrointestinal: Soft and benign, Non-distended, No rebound, No guarding, Tenderness Musculoskeletal: No clubbing Integumentary: No rashes Neurological: Normal speech, Cranial nerves 3-12 intact, Normal affect Vital Signs/Physical Exam: Temp Pulse Resp BP Pulse Ox 98.8 F 93 H 16 152/103 H 96 05/09/22 08:00 05/09/22 08:00 05/09/22 08:00 05/09/22 09:53 05/09/22 08:00 Laboratory Data at Discharge: WBC 7.00 K/uL (4.3-10.9) 05/08/22 03:32 Hgb 12.6 g/dL (12.0-15.0) 05/09/22 06:33 Hct 36.7 % (36.0-45.0) 05/09/22 06:33 Plt Count 274 K/uL (152-406) 05/08/22 03:32 Sodium 139 mmol/L (136-145) 05/09/22 06:33 Potassium 3.2 mmol/L (3.5-5.1) L 05/09/22 06:33 BUN 13 mg/dL (7-18) 05/09/22 06:33 Creatinine 0.90 mg/dL (0.55-1.3) 05/09/22 06:33 Glucose 133 mg/dL (74-106) H 05/09/22 06:33 Magnesium Cancelled 05/08/22 05:00 Total Bilirubin 0.5 mg/dL (0.2-1.0) 05/08/22 03:32 AST 14 U/L (15-37) L 05/08/22 03:32 ALT 19 U/L (12-78) 05/08/22 03:32 Alkaline Phosphatase 58 U/L (45-117) 05/08/22 03:32 Lipase 45 U/L (73-393) L 05/08/22 12:23 Home Medications: Citalopram Hydrobromide [Celexa] 40 mg PO BEDTIME 10/07/19 Gabapentin 600 mg PO BIDP PRN 10/07/19 Trazodone [Desyrel*] 200 mg PO BEDTIME 10/07/19 Alprazolam [Xanax] 2 mg PO BID PRN #6 10/12/19 carvediloL [Coreg*] 25 mg PO BID tab 10/12/19 cloNIDine HCL [Catapres*] 0.3 mg PO TID tablet 10/12/19 Rizatriptan Benzoate [Rizatriptan] 10 mg PO DAILY PRN 05/08/22 Topiramate [Topamax] 50 mg PO DAILY PRN 05/08/22 Ondansetron [Ondansetron Odt] 4 mg PO Q8H PRN 7 Days #20 tab 05/09/22 Promethazine Tab [Phenergan] 12.5 mg PO Q8H PRN 7 Days #20 tab 05/09/22 New Medications: Ondansetron [Ondansetron Odt] 4 mg PO Q8H PRN 7 Days #20 tab PRN Reason: nausea/vomiting Promethazine Tab [Phenergan] 12.5 mg PO Q8H PRN 7 Days #20 tab PRN Reason: Nausea / Vomiting Physician Discharge Instructions: 1. Please call and schedule a follow-up appointment with your PCP in 3-5 days 2. Please call and schedule a follow-up appointment with Gastroenterology (Dr. Weir) in 3-5 days for your nausea/vomiting 3. Please call and schedule a follow-up appointment with General Surgery (Dr. Nguyen) in 5-7 days for your hernia 4. Please call and schedule a follow-up appointment with Neurology (Dr. Whipple) in 5-7 days for your migraine headaches Diet: Regular Activity: Ad viviana Followup: Johnnie Whipple MD [ASSOCIATE-ACTIVE - CAN ADMIT] - Keagan Nguyen MD [ACTIVE - CAN ADMIT] - Richard Weir MD [ACTIVE - CAN ADMIT] - Time spent managing pt's care (in minutes): 20
--- NOTE | 2022-05-10 15:26 | P.PN ---
Date of Service: 05/10/22 Called Ms. Garcia to follow-up on her hospital visit. She reports that her symptoms have worsened and that she has vomited twice today. She reports that she has been unable to advance her diet past clear liquids, and vomited up broth this morning. I advised that she return to the Emergency Department so that we can re-evaluate her potassium level and attempt to control her nausea/vomiting. I explained the danger of her potassium levels dropping too low and that her continued emesis may worsen this. I explained that severe hypokalemia can be fatal. She verbalized understanding and agreed to return to the Emergency Department. I have notified the ED staff to call me when she arrives. Dylan Baltazar M.D.
== END 2022-05-09 10:27 | disposition home or self-care (01) ==
LOC: ER 11:46 → ERHOLD 19:50 → 4TH 21:26
PROVIDERS: ADMIT Internal Medicine; ATTEND Internal Medicine
DX: E87.6 Hypokalemia (principal); R11.2 Nausea with vomiting, unspecified; I10 Essential (primary) hypertension; I16.0 Hypertensive urgency; K40.90 Unilateral inguinal hernia, without obstruction or gangrene, not specified as recurrent; G43.909 Migraine, unspecified, not intractable, without status migrainosus; F17.210 Nicotine dependence, cigarettes, uncomplicated; R10.9 Unspecified abdominal pain; F12.90 Cannabis use, unspecified, uncomplicated; Z20.822 Contact with and (suspected) exposure to COVID-19
CPT/HCPCS: 85025 ×2; 80048; 36415 ×2; 83735 ×3; 84703; 84132 ×3; 85018 ×2; 85014 ×2; 81003; 83690; 80053 ×2; 80307; 70450; 74177; 99285; 87811; Q9967; J0360 ×4; J2550 ×5; J3480 ×2; C9113; J1650; J3360; J3010 ×2; J3475 ×2; J2270 ×8; J7120 ×2; J7030 ×2; J2405 ×5; G0378; J8597

== ENCOUNTER 2022-05-10 16:23 | Observation (INO) | payer OTHER ==
--- OUTSIDE RECORDS SUMMARY | 2022-05-10 16:39 | XMS REPORT | Continuity of Care Document ---
:1970 Author Organization Formerly [facility] t Address [address] [place] [address] Care Team Providers Name Role Phone ALAINA [...] Si Attending Clinician Shashank Lopez Attending Clinician Adelia Meehan Attending Clinician Meng Bernard Attending Clinician Arvin Francisco Attending Clinician Sebastian Cheema Attending Clinician Sunil Ruiz Attending Clinician Cari Leggett Attending Clinician Iram Lunsford Attending Clinician Deepak Ricardo Attending Clinician ORAL Admitting Clinician Unavailable Billy Tapia MD Admitting Clinician BILLY TAPIA Admitting Clinician Unavailable [...] nivers tis tis 5-17 ity of 00:00: [place] [facility] Branch Troponin I Troponin I Disease Active 2021-0 U nivers above above 5-17 [place] of [place] 00 [place] Other Other Disease Active 2021-0 Univers chest pain chest pain 5-17 it y of 00:00: [place] [facility] Elevated Elevated Disease Active Unive rs brain brain 5-17 ity of natriureti natriureti [place] c peptide c peptide 00 Medi yessenia (BNP) (BNP) Branch level level Hypertensi Hypertensi Disease Active 2021-0 U nivers ve urgency ve urgency 5-17 it y of 00:00: [place] [facility] Branch Cigarette Cigarette Disease Active 2021-0 Uni vers smoker smoker 5-17 ity of 00:00: [place] [facility] Branch Proctocoli Proctocoli Disease Active 2021-0 U nivers tis tis 5-16 ity of 00:00: [address] Branch HEADACHE HEADACHE Diagnosis Active 2016-062017-04-15 Memoria Active 0-13 09:59:00 l 04/09/2017 00:00: Bill [place]KIN[place] M54.5 - M54.5 - Diagnosis Active 2017-02-28 Memoria LOW BACK LOW BACK 01-18 15:41:00 l PAIN PAIN 00:01: [place] Active 00 01/18/2017 [facility] [place] RIB PAIN RIB PAIN Diagnosis Active 2015-062016-06-06 [...] E VOMITING LE 14:11:00 l VOMITING 00:00: [place] Active 00 04/27/2015 [facility] FOOT PAIN FOOT PAIN Diagnosis Active 2014-12-30 Memoria OR INJURY OR INJURY 12-30 17:20:00 l Active 09:00: [place] 12/30/2014 00 MH [place] HIGH BP HIGH BP Diagnosis Active 2014-07-20 Memoria Active 07-19 00:57:00 l 07/19/2014 19:00: Bill carranza [place] HTN HTN Disease Active Univers (hypertens (hypertens 7-26 it y of ion) ion) 00:00: [place] 00 Medical Branch Headache Headache Problem 2018-08-29 Memoria 08/29/2018 16:13:53 l [place] Nausea Nausea Problem 2018-08-29 Joe peter with with 16:13:53 l vomiting, vomiting, Herm tc unspecifie unspecifie d d 08/29/2018 [place] Elevated Elevated Problem 2018-08-29 Memoria white white 16:13:53 l blood cell blood cell He rmann count, count, unspecifie unspecifie d d 08/29/2018 [facility] Low back Low back Problem 2018-08-29 Memoria pain pain 16:13:53 l 08/29/2018 Bill carranza [facility] Other Other Problem 2018-08-29 Memor ia chronic chronic 16:13:53 l pain pain [place] 08/29/2018 [facility] Essential Essential Problem 2018-08-29 Memoria (primary) (primary) 16:13:53 l hypertensi hypertensi He rmann on on 08/29/2018 [facility] 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 2018-08-29 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:13: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 He rmann 9 [facility] Personal Personal Problem 2018-08-29 Memoria history of history of 16:13:53 l nicotine nicotine Bill carranza dependence dependence 08/29/2018 [facility] Cervicalgi Cervicalg Problem 2018-08-14 Memoria a ia 15:42:10 l 08/14/2018 Bill carranza [facility] Injury of Injury of Problem Resolve 2020-11-30 Memoria back back d 01:03:52 l (disorder) (disorder) [place] Resolved Problem 11/30/2020 [facility] [place] Migraine Migraine Problem Resolve 2020-11-30 Memoria (disorder) (disorder) d 01:03:52 l Resolved [place] Problem 11/30/2020 [facility] [place] Ready to Ready to Problem Resolve 2020-11-30 Memoria stop stop d 01:03:52 l smoking smoking [place] (finding) (finding) Resolved Problem 11/30/2020 [facility] [place] Chronic Chronic Problem Active 2020-11-30 Me moria low back low back 01:03:52 l pain pain [place] (disorder) (disorder) [facility] [place] History of History Problem Active 2020-11-30 Memoria - of - 01:03:52 l myocardial myocardial He r[place] infarction infarction (context-d (context-d ependent ependent category) category) Active Problem 11/30/2020 [facility] History of Past Illness Condition Condition Condition Status Onset Resolution Last Treating Co mments Source Name Details Category Date Date Treatment Clinician Date Other Other Problem 2017-2018-08-29 2018-08-29 Memoria chest pain chest pain 02-16 16:13:53 16:13:53 l 02/16/2018 04:14: Bill carranza 08/29/2018 03 [facility] Migraine, Migraine, Problem 2017-2017-11-04 2017-11-04 Memoria unspecifie unspecifie 11-01 02:29:41 02:29:41 l d, not d, not 05:00: [place] intractabl intractabl 00 e, without e, without status status migrainosu migrainosu s s 11/01/2017 8 [facility] Migraine Migraine Problem 2016-062017-04-12 2017-04-12 Memoria without without 0-13 05:35:07 05:35:07 l aura, not aura, not 05:00: Herm tc intractabl intractabl 00 e, without e, without status status migrainosu migrainosu s s 04/09/2017 04/12/2017 [facility] Chest Chest Problem 2017-01-23 2017-01-23 M emoria pain, pain, 01-20 03:58:05 03:58:05 l unspecifie unspecifie 05:00: He huseyin d d 00 01/20/2017 01/23/2017 [facility] Dorsalgia, Dorsalgia Problem 2017-01-11 2017-01-11 Memoria unspecifie , 01-08 03:19:13 03:19:13 l d unspecifie 05:00: Bill n d 00 01/08/2017 01/11/2017 [facility] Discharge Discharge Problem 2015-062016-06-09 2016-06-09 Memoria Diagnosis: Diagnosis: 08-07 02:24:40 02:24:40 l Rib Rib 06:00: [place] fractures fractures 00 06/06/2016 06/09/2016 [facility] Discharge Discharge Problem 2015-062016-06-08 2016-06-08 Memoria Diagnosis: Diagnosis: 08-06 04:48:18 04:48:18 l Closed Closed 06:00: [place] fracture fracture 00 of four of four ribs ribs 06/05/2016 06/08/2016 [facility] Discharge Discharge Problem 2015-062016-06-08 2016-06-08 Memoria Diagnosis: Diagnosis: 08-06 04:48:18 04:48:18 l Acute head Acute head 06:00: He huseyin injury injury 00 06/05/2016 06/08/2016 [facility] Discharge Discharge Problem 2015-062016-06-08 2016-06-08 Memoria Diagnosis: Diagnosis: 08-06 04:48:18 04:48:18 l Accidental Accidental 06:00: [place] fall fall 00 06/05/2016 06/08/2016 [facility] Discharge Problem 2015-062016-05-17 2016-05-17 Memoria Diagnosis: Discharge 07-14 04:33:41 04:33:41 l Migraine Diagnosis: 06:00: Herm tc Migraine 00 05/14/2016 05/17/2016 [facility] Discharge Problem 2015-01-02 2015-01-02 Memoria Diagnosis: Discharge 12-30 00:50:48 00:50:48 l Cellulitis Diagnosis: 05:00: [place] of great Cellulitis 00 toe of great toe 12/30/2014 01/02/2015 [facility] Discharge Discharge Problem 2014-10-25 2014-10-25 Memoria Diagnosis: Diagnosis: 10-22 03:19:10 03:19:10 l Anemia Anemia 05:00: [place] 10/22/2014 00 10/25/2014 [facility] Discharge Discharge Problem 2014-10-25 2014-10-25 Memoria Diagnosis: Diagnosis: 10-22 03:19:10 03:19:10 l Edema Edema 05:00: [place] 10/22/2014 00 10/25/2014 [facility] Discharge Discharge Problem 2014-07-22 2014-07-22 Memoria Diagnosis: Diagnosis: 07-20 15:27:52 15:27:52 l Acute Acute 06:00: [place] headache headache 00 07/20/2014 07/22/2014 [facility] Discharge Discharge Problem 2014-07-22 2014-07-22 Memoria Diagnosis: Diagnosis: 07-20 15:27:52 15:27:52 l Weakness Weakness 06:00: Bill n 07/20/2014 00 07/22/2014 [facility] Allergies, Adverse Reactions, Alerts Allergy Allergy Status Severity Reaction(s) Onset Inactive Treating Comm ents Source Name Type Date Date Clinician Sumatrip Propensi Active Unknown - "I almost Univers cordova ty to See comments 01-30 had a ity of Succinat adverse 00:00: heart [place] e reaction 00 attack Medical s and a Branch stroke" SUMATRIP DRUG Active Unknown-Cmnt Un danielle CORDOVA JOSEI 01-30 ity of SUCCINAT 00:00: [place] E 00 Medical Branch Imitrex Imitrex Active Shortness of Me moria breath, l Chest [place] discomfort (finding) traMADol traMADol Active Meghana Jerez Social History Social Habit Start Date Stop Date Quantity Comments Source Exposure to 2021-10-31 2021-11-10 Not sure [facility] SARS-CoV-2 00:00:00 19:22:00 [facility] (event) Branch Tobacco use and 2021-11-10 2021-11-10 Current user Univers ity of exposure 00:00:00 00:00:00 [facility] Alcohol intake 2021-11-10 2021-11-10 Ex-drinker [facility] 00:00:00 00:00:00 (finding) [facility] Social History 2020-11-27 2020-11-27 [facility] Mateo valencia 20:31:29 20:31:29 [birth year] Universit y of 00:00:00 00:00:00 [facility] Smoking Status Start Date Stop Date Source Current every day smoker 2021-11-10 00:00:00 Uni versity of [facility] Medications Ordered Filled Start Stop Current Ordering [...] approved by (Faculty): ADC PROVIDER carvediloL Yes [id number] 25mg Take 1 Univers 25 mg 5-18 tablet by ity of tablet 00:00: mouth 2 [place] 00 (two) Medical times Branch daily with meals. sucralfate 2021- Yes [id number] 1g Take 1 Univers 1 gram 5-18 tablet by ity of tablet 00:00: mouth [place] 00 before Medical meals and Branch at bedtime. ondansetron Yes [id number] 4mg Take 1 Univers 4 mg tablet 5-18 tablet by ity of 00:00: mouth [place] 00 every 8 Medical (eight) Branch hours. amLODIPine 2022-0 Yes [id number] 5mg Take 1 Univers 5 mg tablet 5-18 tablet by ity of 00:00: mouth [place] 00 daily. Medical Branch carvediloL 2-0 Yes [id number] 25mg Take 1 Univers 25 mg 5-18 tablet by ity of tablet 00:00: mouth 2 [place] 00 (two) Medical times Branch daily with meals. sucralfate 2022-0 Yes [id number] 1g Take 1 Univers 1 gram 5-18 tablet by ity of tablet 00:00: mouth [place] 00 before Medical meals and Branch at bedtime. ondansetron 2-0 Yes [id number] 4mg Take 1 Univers 4 mg tablet 5-18 tablet by ity of 00:00: mouth [place] 00 every 8 Medical (eight) Branch hours. amLODIPine 2021-0 Yes [id number] 5mg Take 1 Univers 5 mg tablet 5-18 tablet by ity of 00:00: mouth [place] 00 daily. Medical Branch carvediloL 2021-0 Yes [id number] 25mg Take 1 Univers 25 mg 5-18 tablet by ity of tablet 00:00: mouth 2 [place] 00 (two) Medical times Branch daily with meals. sucralfate 2-0 Yes [id number] 1g Take 1 Univers 1 gram 5-18 tablet by ity of tablet 00:00: mouth [place] 00 before Medical meals and Branch at bedtime. ondansetron 2021-0 Yes [id number] 4mg Take 1 Univers 4 mg tablet 5-18 tablet by ity of 00:00: mouth [place] 00 every 8 Medical (eight) Branch hours. amLODIPine 2-0 Yes [id number] 5mg Take 1 Univers 5 mg tablet 5-18 tablet by ity of 00:00: mouth [place] 00 daily. Medical Branch pantoprazol 2021-0 202- No [id number] 40mg Take 1 Univers e 40 mg EC 5-18 -02 tablet by ity of tablet 00:00: 04:59 mouth [place] 00 :00 daily for Medical 14 days. Branch pantoprazol 2022-0 2022- No [id number] 40mg Take 1 Univers e 40 mg EC 5-18 -02 tablet by ity of tablet 00:00: 04:59 mouth [place] 00 :00 daily for Medical 14 days. Branch pantoprazol 2-0 2022- No [id number] 40mg Take 1 Univers e 40 mg EC 5-18 06-02 tablet by ity of tablet 00:00: 04:59 mouth [place] 00 :00 daily for Medical 14 days. Branch amoxicillin 2021- No [id number] 1{tbl} Take 1 Univers -clavulanat 5-18 05-24 tablet by it y of e 00:00: 04:59 mouth 2 [place] (AUGMENTIN) 00 :00 (two) Medical 875-125 mg times Branch per tablet daily for 5 days. HYDROcodone 2021- No [id number] 1{tbl} Take 1 U nivers -acetaminop 5-18 05-24 tablet by it y of hen 5-325 00:00: 04:59 mouth [place] mg tablet 00 :00 every 6 Medical (six) Branch hours as needed for Pain (scale 7-10) for up to 5 days. Indication s: acute pain amoxicillin 2021- No [id number] 1{tbl} Take 1 Univers -clavulanat 5-18 05-24 tablet by it y of e 00:00: 04:59 mouth 2 [place] (AUGMENTIN) 00 :00 (two) Medical 875-125 mg times Branch per tablet daily for 5 days. HYDROcodone 2021- No [id number] 1{tbl} Take 1 U nivers -acetaminop 5-18 05-24 tablet by it y of hen 5-325 00:00: 04:59 mouth [place] mg tablet 00 :00 every 6 Medical (six) Branch hours as needed for Pain (scale 7-10) for up to 5 days. Indication s: acute pain amoxicillin 2021- No [id number] 1{tbl} Take 1 Univers -clavulanat 5-18 05-24 tablet by it y of e 00:00: 04:59 mouth 2 [place] (AUGMENTIN) 00 :00 (two) Medical 875-125 mg times Branch per tablet daily for 5 days. HYDROcodone 2021- No [id number] 1{tbl} Take 1 U nivers -acetaminop 5-18 05-24 tablet by it y of hen 5-325 00:00: 04:59 mouth [place] mg tablet 00 :00 every 6 Medical (six) Branch hours as needed for Pain (scale 7-10) for up to 5 days. Indication s: acute pain HYDROmorphO 2021- No 1mg 1 mg, Slow Univers ne 11-11 05-18 IV Push, ity of (DILAUDID) 18:22: 17:26 [...] No .2mg 0.2 mg, Un danielle ne 11-1117 Slow IV ity of (DILAUDID) 17:27: 18:25 [...] Yes 30mg 30 mg, Unive rs (LOVENOX) 11-11 Subcutaneo ity of injection 14:00: [place], [place]ILY, [place] 30 mg 00 First dose Medical on Wed [place] 11/11/21 at 0900, Until Discontinu ed, Routine carvediloL Yes 25mg 25 mg, Unive rs (COREG) 11-11 Oral, BID ity of tablet 25 13:00: MEALS, [place] mg 00 First dose Medical on Wed [place] 11/11/21 at 0800, Until Discontinu ed, Routine sucralfate 2022-0 Yes 1g 1,000 mg Uni vers (CARAFATE) [...] n of therapy: 72 hours NaCl 0.9% 2021-0 Yes 1000mL at 150 Univ ers (NS) IV -17 mL/hr, IV ity of infusion 06:00: Infusion, [place] 1,000 mL 00 CONTINUOUS Medic al , Starting Branch on Wed11/11/21 at 0100, Until Discontinu ed, Routine pantoprazol 2021-0 Yes 8mg/h 8 mg/hr Un danielle e 11-11 (50 ity of (PROTONIX) 06:00: mL/hr), IV [place] 80 mg in 00 Infusion, Medica l NaCl 0.9% CONTINUOUS Bran ch (NS) 500 mL , Starting infusion on Wed11/11/21 at 0100 pantoprazol 2021-0 202- No 80mg 80 mg, Uni vers e 11-11 Slow IV ity of (PROTONIX) 06:00: 05:57 Push, [place] injection 00 :00 ONCE, 1 Medical 80 mg dose, On Branch Wed11/11/21 at 0100 LORazepam 2021-0 202- No 1mg 1 mg, Slow U nivers (ATIVAN) 11-11 IV Push, ity of injection 1 06:00: 05:39 ONCE, 1 [place] mg 00 :00 dose, On Medical Tue Branch 11/11/21 at 0100, ITA NaCl 0.9% 2021- No 500mL at 999 Univ ers (NS) bolus 11-11 mL/hr, 500 it y of infusion 06:00: 05:19 mL, IV [place] 500 mL 00 :00 Infusion, Medical ONCE, 1 Branch dose, On [facility] 11/11/21 at 0100, Routine morpHINE (2 2021- No 2mg 2 mg, Slow Univers mg/mL) 11-11 IV Push, ity of injection 2 05:07: 17:57 Q4HPRN, [place] mg 16 :36 Starting Medical on [facility] 11/11/21 at 0007, Until 11/11/21 at 1257, Routine, Pain (scale 7-10) ondansetron Yes 4mg 4 mg, Slow Univers (ZOFRAN 11-11 IV Push, ity of (PF)) 05:06: Q6HPRN, [place] injection 4 58 Starting Medi yessenia mg on [facility] 11/11/21 at 0006, Until Discontinu ed, Routine, Nausea and Vomiting (N/V) metoclopram Yes 10mg 10 mg, Univ ers james HCl 11-11 Slow IV ity of (REGLAN) 05:00: Push, Q8H, [place] injection 00 First dose Medi yessenia 10 mg on [facility] 11/11/21 at 0000, Until Discontinu ed, Routine labetaloL Yes 10mg 10 mg, Univer s (NORMODYNE) 11-11 Slow IV ity o f injection 04:55: Push, [place] 10 mg 05 Q4HPRN, Medical Starting Branch on Wed11/10/21 at 2355, Until Discontinu ed, Routine, SBP > 180 or DBP > 110; hold if HR < 65 FENTanyl PF 2021- No 50ug 50 mcg, Un danielle (SUBLIMAZE 11-11 Slow IV ity o f (PF)) 03:30: 02:40 Push, [place] injection 00 :00 ONCE, 1 Medical 50 mcg dose, On Branch Wed11/10/21 at 2230, STAT morpHINE (4 2021- No [...] Medical Infusion, Branch ONCE, 1 dose, On [facility] 11/10/21 at 2100, ITA hydralAZINE No 20mg [...] of therapy: 72 hours iopamidol 2021- No [id number] 100mL 100 mL, Univers (ISOVUE 11-11 Intravenou ity o f 370-500 mL) 01:45: 00:30 s, ONCE, 1 [place] injection 00 :00 dose, On Medica l 100 mL Mon Branch 11/10/21 at 2045, Routine morpHINE (4 [...] 00 :00 dose, On Medi yessenia mg Mon Branch 11/10/21 at 1945, ITA NaCl 0.9% 2021- No 1000mL at 999 Uni vers (NS) bolus 11-11 mL/hr, ity of infusion 00:45: 00:16 1,000 mL, [place] 1,000 mL 00 :00 IV Medical Infusion, Branch ONCE, 1 dose, On [facility] 11/10/21 at 1945, ITA Acetaminoph Yes 1 tab, PO, Memoria en 300 MG / 6-02 Q6H, 0 l Codeine 20:52: Refill(s) Holly nn Phosphate 00 30 MG Oral Tablet Acetaminoph Yes 1 tab, PO, Memoria en 300 MG / 6-02 Q6H, 0 l Codeine 20:52: Refill(s) Holly nn Phosphate 00 30 MG Oral Tablet carvedilol Yes 25 mg = 1 Me moria 25 mg oral 6-02 tab, PO, l tablet 20:41: BID, 0 [place] 00 Refill(s) Clonidine Yes 0.3 mg = 1 Me moria Hydrochlori 6-02 tab, PO, l de 0.3 MG 20:41: TID, 0 Bill n Oral Tablet 00 Refill(s) carvedilol Yes 25 mg = 1 Me moria 25 mg oral 6-02 tab, PO, l tablet 20:41: BID, 0 [place] 00 Refill(s) Clonidine Yes 0.3 mg = 1 Me moria Hydrochlori 6-02 tab, PO, l de 0.3 MG 20:41: TID, 0 Bill n Oral Tablet 00 Refill(s) Zofran 2018-0 No 4 mg, Memoria 8-15 Route: l 22:28: IVP, Drug [place] form: INJ, ONCE, Dosing Weight 90.409, kg, Priority: STAT, Start date: 02/09/18 17:28:00 CDT, Stop date: 02/09/18 17:28:00 CDT Morphine 2018-0 No 4 mg, Memoria 8-15 Route: l 22:28: IVP, ONCE, [place] 00 Dosing Weight 90.409, kg, Priority: STAT, Start date: 02/09/18 17:28:00 CDT, Stop date: 02/09/18 17:28:00 CDT Zofran 2018-0 No 4 mg, Memoria 8-15 Route: l 22:28: IVP, Drug [place] form: INJ, ONCE, Dosing Weight 90.409, kg, Priority: STAT, Start date: 02/09/18 17:28:00 CDT, Stop date: 02/09/18 17:28:00 CDT Morphine 2018-0 No 4 mg, Memoria 8-15 Route: l 22:28: IVP, ONCE, [place] 00 Dosing Weight 90.409, kg, Priority: STAT, Start date: 02/09/18 17:28:00 CDT, Stop date: 02/09/18 17:28:00 CDT Nitroglycer 2018-0 No 1 inch, Mem oria in 0.02 15 Route: l MG/MG 22:27: TOP, [place] Topical 00 Dosing Ointment Weight 90.409, kg, ONCE, STAT, Start date: 02/09/18 17:27:00 CDT, Stop date: 02/09/18 17:27:00 CDT Nitroglycer 2018-0 No 1 inch, Mem oria in 0.02 -15 Route: l MG/MG 22:27: TOP, [place] Topical 00 Dosing Ointment Weight 90.409, kg, ONCE, STAT, Start date: 02/09/18 17:27:00 CDT, Stop date: 02/09/18 17:27:00 CDT NS (Bolus) 2018-0 No 1,000 mL, Me moria IV 02-09 1,000 l 18:43: ml/hr, Infuse Over: 1 hr, Route: IV, 1,000, Drug form: INJ, ONCE, Priority: STAT, Dosing Weight 90.409 kg, Start date: 02/09/18 13:43:00 CDT, Stop date: 02/09/18 13:43:00 CDT Zofran No Notes: Memoria 815 (Same as: l 18:43: Zofran) MEDICATION WASTE Product Size: 4 mg Product Wasted: ___ mg NS (Bolus) No 1,000 mL, Me moria IV 02-09 1,000 l 18:43: ml/hr, Infuse Over: 1 hr, Route: IV, 1,000, Drug form: INJ, ONCE, Priority: STAT, Dosing Weight 90.409 kg, Start date: 02/09/18 13:43:00 CDT, Stop date: 02/09/18 13:43:00 CDT Zofran No Notes: Memoria 02-09 (Same as: l 18:43: Zofran) MEDICATION WASTE Product Size: 4 mg Product Wasted: ___ mg lidocaine No Notes: Memori a 2% 7-31 (Same as: l 16:32: Xylocaine) lidocaine No Notes: Memori a 2% 7-31 (Same as: l 16:32: Xylocaine) Compazine No Notes: Memori a 7-31 (Same as: l 14:53: Compazine) Benadryl No Notes: Memoria 7-31 (Same as: l 14:53: Benadryl) Compazine No Notes: Memori a 7-31 (Same as: l 14:53: Compazine) Benadryl No Notes: Memoria 7-31 (Same as: l 14:53: Benadryl) Ketorolac No 4 days Memor ia 01-25 l 14:52: MEDICATION WASTE Product Size: 30 mg Product Wasted: _15__ mg NS (Bolus) No 1,000 mL, Me moria IV 01-25 1,000 l 14:52: ml/hr, [place] Infuse Over: 1 hr, Route: IV, 1,000, Drug form: INJ, ONCE, Priority: STAT, Dosing Weight 101.534 kg, Start date: 01/25/18 9:52:00 CDT, Stop date: 01/25/18 9:52:00 CDT Ketorolac No 4 days Memor ia 01-25 l 14:52: MEDICATION [place] WASTE Product Size: 30 mg Product Wasted: _15__ mg NS (Bolus) No 1,000 mL, Me moria IV 01-25 1,000 l 14:52: ml/hr, [place] 00 Infuse Over: 1 hr, Route: IV, 1,000, Drug form: INJ, ONCE, Priority: STAT, Dosing Weight 101.534 kg, Start date: 01/25/18 9:52:00 CDT, Stop date: 01/25/18 9:52:00 CDT Acetaminoph No 1 - 2 tab, Memoria en 300 MG / 5-07 PO, Q4H, l Codeine 20:03: PRN Pain, Holly nn Phosphate 00 X 2 day, # 60 MG Oral 20 ea, 0 Tablet Refill(s) [Tylenol with Codeine #4] Promethazin Yes 25 mg = 1 M emoria e 5-07 tab, PO, l Hydrochlori 20:03: Q4H, PRN He rmann de 25 MG 00 Nausea, # Oral Tablet 18 tab, 0 Refill(s) Acetaminoph No 1 - 2 tab, Memoria en 300 MG / 5-07 PO, Q4H, l Codeine 20:03: PRN Pain, Holly nn Phosphate 00 X 2 day, # 60 MG Oral 20 ea, 0 Tablet Refill(s) [Tylenol with Codeine #4] Promethazin Yes 25 mg = 1 M emoria e 5-07 tab, PO, l Hydrochlori 20:03: Q4H, PRN He rmann de 25 MG 00 Nausea, # Oral Tablet 18 tab, 0 Refill(s) Hydromorpho No Notes: Joe peter ne 5-07 Same as l 18:20: Dilaudid [place] 00 NS 1,000 mL No 1,000 mL, M emoria 5-07 Rate: l 18:20: 1,000 Solitario 00 ml/hr, Infuse over: 1 hr, Route: IV, Dosing Weight 99.744 kg, Total Volume: 1,000, Start date: 11/01/17 13:20:00 CDT, Duration: 1 doses or times, Stop date: 11/01/17 14:19:00 CDT, Bolus Dose, 2.17, m2 Prochlorper No Notes: Joe peter azine 5-07 (Same as: l 18:20: Compazine) Benadryl No Notes: Memoria 5-07 (Same as: l 18:20: Benadryl) Hydromorpho No Notes: Joe peter ne -07 Same as l 18:20: Dilaudid 00 NS 1,000 mL No 1,000 mL, M emoria 11-01 Rate: l 18:20: 1,000 Solitario 00 ml/hr, Infuse over: 1 hr, Route: IV, Dosing Weight 99.744 kg, Total Volume: 1,000, Start date: 11/01/17 13:20:00 CDT, Duration: 1 doses or times, Stop date: 11/01/17 14:19:00 CDT, Bolus Dose, 2.17, m2 Prochlorper No Notes: Joe peter azine -07 (Same as: l 18:20: Compazine) Benadryl No Notes: Memoria 5-07 (Same as: l 18:20: Benadryl) Metoclopram 2016-06 Yes 10 mg = 1 M emoria james 10 MG 1-20 tab, PO, l Oral Tablet 04:00: QID-Before [Reglan] 00 Meals, PRN nausea and vomiting, X 10 day, # 40 tab, 0 Refill(s) Metoclopram 2016-06 Yes 10 mg = 1 M emoria james 10 MG 1-20 tab, PO, l Oral Tablet 04:00: QID-Before Solit[place] [Reglan] 00 Meals, PRN nausea and vomiting, X 10 day, # 40 tab, 0 Refill(s) Acetaminoph 2016-06 Yes 1-2 cap, Me moria en 300 MG / 1-20 PO, Q4H, l butalbital 03:59: PRN Solitario 50 MG / 00 Headache, Caffeine 40 Do not MG Oral exceed 6 Capsule capsules [Fioricet] in 24 hours, X 7 day, # 42 ea, 0 Refill(s) Acetaminoph 2016-06 Yes 1-2 cap, Me moria en 300 MG / 1-20 PO, Q4H, l butalbital 03:59: PRN Solit[place] 50 MG / 00 Headache, Caffeine 40 Do not MG Oral exceed 6 Capsule capsules [Fioricet] in 24 hours, X 7 day, # 42 ea, 0 Refill(s) Methocarbam 2016-06 Yes 500 mg = 1 Memoria ol 500 MG 1-20 tab, PO, l Oral Tablet 03:58: Q6H, PRN He rmann [Robaxin] 00 Spasms, X 7 day, # 28 tab, 0 Refill(s) Methocarbam 2016-06 Yes 500 mg = 1 Memoria ol 500 MG 1-20 tab, PO, l Oral Tablet 03:58: Q6H, PRN He rmann [Robaxin] 00 Spasms, X 7 day, # 28 tab, 0 Refill(s) lidocaine 2016-06 No Route: IV, Me moria 2% 1-20 Dosing l injectable 03:14: Weight Holly nn solution 00 95.455, kg, ONCE, 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, Stop 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: 05/16/17 21: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, Ketamine 2016-06 No 9.5 mg, Memori a 1-20 Route: l 03:14: IVP, ONCE, [place] 00 Dosing Weight 95.455, kg, Priority: STAT, 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, Stop date: 05/16/17 21: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 NS (Bolus) 2016-06 No 1,000 mL, Me moria IV 1-20 1,000 l 03:14: ml/hr, [place] 00 Infuse Over: 1 hr, Route: IV, ONCE, Priority: STAT, Dosing Weight 95.455 kg, 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, Stop date: 05/16/17 21: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 lidocaine 2016-06 No Route: IV, Me moria 2% 1-20 Dosing l injectable 03:14: Weight Holly nn solution 00 95.455, kg, ONCE, 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, Stop date: 05/16/17 21: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, Ketamine 2016-06 No 9.5 mg, Memori a 1-20 Route: l 03:14: IVP, ONCE, Solit[place] 00 Dosing Weight 95.455, kg, Priority: STAT, 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, Stop date: 05/16/17 21: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 NS (Bolus) 2016-06 No 1,000 mL, Me moria IV 1-20 1,000 l 03:14: ml/hr, Solitario Infuse Over: 1 hr, Route: IV, ONCE, Priority: STAT, Dosing Weight 95.455 kg, 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, Stop date: 05/16/17 21: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 Dexamethaso 2016-06 No Notes: Joe peter ne -20 dexamethas l 01:27: one 10 Solitario 00 mg/1 ml VL INJ PF MEDICATION WASTE Product Size: 10 mg Product Wasted: ___ mg Ketorolac 2016-06 No 4 days Memor ia 1-20 l 01:27: MEDICATION [place] 00 WASTE Product Size: 30 mg Product Wasted: ___ mg Benadryl 2016-06 No Notes: Memoria 1-20 (Same as: l 01:27: Benadryl) [place] 00 Dexamethaso 2016-06 No Notes: Joe peter ne 1-20 dexamethas l 01:27: one 10 [place] 00 mg/1 ml VL INJ PF MEDICATION WASTE Product Size: 10 mg Product Wasted: ___ mg Ketorolac 2016-06 No 4 days Memor ia 1-20 l 01:27: MEDICATION [place] 00 WASTE Product Size: 30 mg Product Wasted: ___ mg Benadryl 2016-06 No Notes: Memoria 1-20 (Same as: l :27: Benadryl) [place] Compazine 2016-06 No Notes: Memori a 1-20 (Same as: l :: Compazine) [place] 00 NS (Bolus) 2016-06 No 1,000 mL, Me moria IV 1-20 1,000 l 01:26: ml/hr, [place] 00 Infuse Over: 1 hr, Route: IV, 1,000, Drug form: INJ, ONCE, Priority: STAT, Dosing Weight 95.455 kg, 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/16/17 19:26:00 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, Stop date: 05/16/17 19:26:00 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 Compazine 2016-06 No Notes: Memori a 1-20 (Same as: l :: Compazine) [place] 00 NS (Bolus) 2016-06 No 1,000 mL, Me moria IV 1-20 1,000 l 01:26: ml/hr, [place] 00 Infuse Over: 1 hr, Route: IV, 1,000, Drug form: INJ, ONCE, Priority: STAT, Dosing Weight 95.455 kg, 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/16/17 19:26:00 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, Stop date: 05/16/17 19:26:00 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 Methocarbam 2016-06 Yes 1,000 mg = Memoria ol 500 MG 0-13 2 tab, PO, l Oral Tablet 16:32: QID, PRN He rmann [Robaxin] 00 as needed for muscle spasms, X 7 day, # 56 tab, 0 Refill(s) Methocarbam 2016-06 Yes 1,000 mg = Memoria [...] 3 day, # 24 cap, 0 Refill(s) Acetaminoph 2016-06 No 1 - [...] ne 0-13 Route: IV, l 16:19: ONCE, [place] Dosing Weight 89.864, kg, Priority: STAT, Start date: 04/09/17 11:19:00 CDT, Stop date: 04/09/17 11:19:00 CDT Hydromorpho 2016-06 No 1 mg, Memor ia ne 0-13 Route: IV, l 16:19: ONCE, [place] 00 Dosing Weight 89.864, kg, Priority: STAT, Start date: 04/09/17 11:19:00 CDT, Stop date: 04/09/17 11:19:00 CDT Robaxin 2016-06 No Notes: Memoria 0-13 (Same l 14:59: as:Robaxin [place] 00 ) Reglan 2016-06 No Notes: [facility]oria 0-13 (Same as: l 14:59: Reglan) [place] sodium 2016-06 No 1,000 mL, Memori a chloride 0-13 Rate: l 0.9% 1000 14:59: 1,000 [place] ml INJ 00 ml/hr, 1,000 mL Infuse over: 1 hr, Route: IV, Dosing Weight 89.864 kg, Total Volume: 1,000, Start date: 04/09/17 9:59:00 CDT, Duration: 1 doses or times, Stop date: 04/09/17 10:58:00 CDT, Bolus Dose Dexamethaso 2016-06 No Notes: Joe peter ne 0-13 dexamethas l 14:59: one 10 [place] 00 mg/1 ml VL INJ PF MEDICATION WASTE Product Size: 10 mg Product Wasted: ___ mg Hydromorpho 2016-06 No Notes: Joe peter ne 0-13 Same as l 14:59: Dilaudid [place] 00 Benadryl 2016-06 No Notes: Memoria 0-13 (Same as: l 14:59: Benadryl) [place] 00 Dexamethaso 2016-06 No Notes: Joe peter ne 0-13 dexamethas l 14:59: one 10 [place] 00 mg/1 ml VL INJ PF MEDICATION WASTE Product Size: 10 mg Product Wasted: ___ mg Hydromorpho 2016-06 No Notes: Joe peter ne 0-13 Same as l 14:59: Dilaudid [place] 00 Benadryl 2016-06 No Notes: Memoria 0-13 (Same as: l 14:59: Benadryl) [place] Robaxin 2016-06 No Notes: [facility]oria 0-13 (Same l 14:59: as:Robaxin [place] ) Reglan 2016-06 No Notes: [facility]oria 0-13 (Same as: l 14:59: Reglan) [place] 00 sodium 2016-06 No 1,000 mL, Memori a chloride 0-13 Rate: l 0.9% 1000 14:59: 1,000 [place] ml INJ 00 ml/hr, 1,000 mL Infuse over: 1 hr, Route: IV, Dosing Weight 89.864 kg, Total Volume: 1,000, Start date: 04/09/17 9:59:00 CDT, Duration: 1 doses or times, Stop date: 04/09/17 10:58:00 CDT, Bolus Dose Acetaminoph No 1 tab, Joe peter en 325 MG / 01-20 Route: PO, l Hydrocodone 06:35: Drug Form: [place] Bitartrate 00 TAB, 7.5 MG Oral Dosing Tablet Weight [Welcome 85.966, 7.5/325] kg, ONCE, STAT, Start date: 01/20/17 1:35:00 CDT, Stop date: 01/20/17 1:35:00 CDT Acetaminoph No 1 tab, Joe peter en 325 MG / 01-20 Route: PO, l Hydrocodone 06:35: Drug Form: [place] Bitartrate 00 TAB, 7.5 MG Oral Dosing Tablet Weight [Welcome 85.966, 7.5/325] kg, ONCE, STAT, Start date: 01/20/17 1:35:00 CDT, Stop date: 01/20/17 1:35:00 CDT Reglan No Notes: [facility]oria - (Same as: l 02:33: Reglan) [place] Benadryl No Notes: [facility] - (Same as: l 02:33: Benadryl) [place] 00 Hydromorpho No Notes: Joe peter ne 01-20 Same as: l 02:33: Dilaudid [place] Saline No Notes: [facility]oria Flush 0.9% 01-20 (Same as: l 02:33: BD [place] 00 Posiflush) Sodium No 1,000 mL, Memori a Chloride 01-20 1000 l 0.9% 02:33: ml/hr, [place] (Bolus) IV 00 Infuse Over: 1 hr, Route: IV, 1,000, Drug form: INJ, ONCE, Priority: STAT, Dosing Weight 85.966 kg, Start date: 01/19/17 21:33:00 CDT, Duration: 1 doses or times, Stop date: 01/19/17 21:33:00 CDT Reglan No Notes: [facility] - (Same as: l 02:33: Reglan) [place] Benadryl No Notes: [facility] - (Same as: l 02:33: Benadryl) [place] Hydromorpho No Notes: Joe peter ne 01-20 Same as: l 02:33: Dilaudid Saline No Notes: [facility] Flush 0.9% 01-20 (Same as: l 02:33: BD [place] 00 Posiflush) Sodium No 1,000 mL, Memori a Chloride 01-20 1000 l 0.9% 02:33: ml/hr, [place] (Bolus) IV 00 Infuse Over: 1 hr, Route: IV, 1,000, Drug form: INJ, ONCE, Priority: STAT, Dosing Weight 85.966 kg, Start date: 01/19/17 21:33:00 CDT, Duration: 1 doses or times, Stop date: 01/19/17 21:33:00 CDT Acetaminoph 0 No 2 tab, Joe peter en 325 MG / 01-08 Route: PO, l Hydrocodone 23:02: Dosing Herm tc Bitartrate 00 Weight 5 MG Oral 85.142, Tablet kg, ONCE, [Welcome Start 5/325] date: 01/08/17 18:02:00 CDT, Stop date: 01/08/17 18:02:00 CDT Acetaminoph 0 No 2 tab, Joe peter en 325 MG / 01-08 Route: PO, l Hydrocodone 23:02: Dosing Herm tc Bitartrate 00 Weight 5 MG Oral 85.142, Tablet kg, ONCE, [Welcome Start 5/325] date: 01/08/17 18:02:00 CDT, Stop date: 01/08/17 18:02:00 CDT Diphenhydra 2017- Yes 50 mg = 2 M emoria mine 7-14 cap, PO, l Hydrochlori 22:52: Q6H, PRN He rmann de 25 MG 00 to be Oral taken with Capsule reglan for [Benadryl] migraine headache, X 3 day, # 24 cap, 0 Refill(s) Diphenhydra Yes 50 mg = 2 M emoria mine 7-14 cap, PO, l Hydrochlori 22:52: Q6H, PRN He rmann de 25 MG 00 to be Oral taken with Capsule reglan for [Benadryl] migraine headache, X 3 day, # 24 cap, 0 Refill(s) Metoclopram Yes 10 mg = 1 M emoria james 10 MG 7-14 tab, PO, l Oral Tablet 22:51: QID, [...] 2 tab, Memoria en 300 MG / 7-14 PO, Q4H, l Codeine 22:51: PRN Pain, Holly nn Phosphate 00 X 2 day, # 60 MG Oral 20 ea, 0 Tablet Refill(s) [Tylenol with Codeine #4] Metoclopram Yes 10 mg = 1 M emoria james 10 MG 7-14 tab, PO, l Oral Tablet 22:51: QID, PRN He rmann [Reglan] 00 N/V assos. with migraine SANDOVAL, X 7 day, # 28 tab, 0 Refill(s) 12 HR 2017 Yes 100 mg = 1 Memori a Orphenadrin 7-14 tab, PO, l e Citrate 22:51: BID, X 10 Her davila 100 MG 00 day, # 20 Extended tab, 0 Release Refill(s) Tablet Acetaminoph No 1 - 2 tab, Memoria en 300 MG / 7-14 PO, Q4H, l Codeine 22:51: PRN Pain, Holly nn Phosphate 00 X 2 day, # 60 MG Oral 20 ea, 0 Tablet Refill(s) [Tylenol with Codeine #4] Sodium No 1,000 mL, Memori a Chloride 7-14 Rate: l 0.9% IV 21:10: 1,000 [place] 1000 mL 00 ml/hr, Infuse over: 1 hr, Route: IV, Dosing Weight 85.142 kg, Total Volume: 1,000, Start date: 01/08/17 16:10:00 CDT, Duration: 1 doses or times, Stop date: 01/08/17 17:09:00 CDT, Bolus Dose Sodium No 1,000 mL, Memori a Chloride 7-14 Rate: l 0.9% IV 21:10: 1,000 [place] 1000 mL 00 ml/hr, Infuse over: 1 hr, Route: IV, Dosing Weight 85.142 kg, Total Volume: 1,000, Start date: 01/08/17 16:10:00 CDT, Duration: 1 doses or times, Stop date: 01/08/17 17:09:00 CDT, Bolus Dose Reglan No Notes: Memoria -14 (Same as: l 20:02: Reglan) [place] 00 Reglan No Notes: [facility]oria 7-14 (Same as: l 20:02: Reglan) [place] Dexamethaso No Notes: Joe peter ne 01-08 dexamethas l 20:01: one 10 [place] 00 mg/1 ml VL INJ PF MEDICATION WASTE Product Size: 10 mg Product Wasted: ___ mg Hydromorpho No Notes: Joe peter ne -14 Same as: l 20:01: Dilaudid [place] Benadryl No Notes: Memoria 7-14 (Same as: l 20:01: Benadryl) [place] 00 sodium No 1,000 mL, Memori a chloride 714 Rate: l 0.9% 1000 20:01: 1,000 [place] ml INJ 00 ml/hr, 1,000 mL Infuse over: 1 hr, Route: IV, Dosing Weight 85.142 kg, Total Volume: 1,000, Start date: 01/08/17 15:01:00 CDT, Duration: 1 doses or times, Stop date: 01/08/17 16:00:00 CDT, Bolus Dose Orphenadrin 2017 No 60 mg, 2 Me moria e 7-14 mL, Route: l 20:01: IM, Drug [place] 00 form: INJ, ONCE, Dosing Weight 85.142, kg, Priority: STAT, Start date: 01/08/17 15:01:00 CDT, Stop date: 01/08/17 15:01:00 CDT Dexamethaso 2016-0 No Notes: Joe peter ne 7-14 dexamethas l 20:01: one 10 [place] 00 mg/1 ml VL INJ PF MEDICATION WASTE Product Size: 10 mg Product Wasted: ___ mg Hydromorpho No Notes: Joe peter ne 7-14 Same as: l 20:01: Dilaudid [place] 00 Benadryl 2016-0 No Notes: Memoria 7-14 (Same as: l 20:01: Benadryl) [place] 00 sodium 2016-0 No 1,000 mL, Memori a chloride 01-08 Rate: l 0.9% 1000 20:01: 1,000 [place] ml INJ 00 ml/hr, 1,000 mL Infuse over: 1 hr, Route: IV, Dosing Weight 85.142 kg, Total Volume: 1,000, Start date: 01/08/17 15:01:00 CDT, Duration: 1 doses or times, Stop date: 01/08/17 16:00:00 CDT, Bolus Dose Orphenadrin No 60 mg, 2 Me moria e 7-14 mL, Route: l 20:01: IM, Drug [place] 00 form: INJ, ONCE, Dosing Weight 85.142, kg, Priority: STAT, Start date: 01/08/17 15:01:00 CDT, Stop date: 01/08/17 15:01:00 CDT Ketorolac 2016-0 No 4 days Memor [facility] 3-26 l 23:00: MEDICATION [place] 00 WASTE Product Size: 30 mg Product Wasted: ___ mg Reglan No Notes: Memoria 3-26 (Same as: l 23:00: Reglan) [place] 00 Ketorolac No 4 days Memor ia 3- l 23:00: MEDICATION [place] WASTE Product Size: 30 mg Product Wasted: ___ mg Reglan No Notes: Memoria 3-26 (Same as: l 23:00: Reglan) [place] 00 Acetaminoph No Notes: Joe peter en 325 MG / 3-26 (Same as: l Hydrocodone 22:34: Welcome Holly nn Bitartrate 00 325/5) Do 5 MG Oral not exceed Tablet 4gm/day of [Welcome acetaminop 5/325] hen. Acetaminoph No Notes: Joe peter en 325 MG / 3-26 (Same as: l Hydrocodone 22:34: Welcome Holly nn Bitartrate 00 325/5) Do 5 MG Oral not exceed Tablet 4gm/day of [Welcome acetaminop 5/325] hen. Hydromorpho No Notes: Joe peter ne 3-26 Same as l 21:47: Dilaudid [place] sodium No 1,000 mL, Memori a chloride - Rate: l 0.9% 1000 21:47: 1,000 [place] ml INJ 00 ml/hr, 1,000 mL Infuse over: 1 hr, Route: IV, Dosing Weight 78.008 kg, Total Volume: 1,000, Start date: 09/20/16 16:47:00 CDT, Duration: 1 doses or times, Stop date: 09/20/16 17:46:00 CDT, Bolus Dose Benadryl No Notes: Memoria 3-26 (Same as: l 21:47: Benadryl) [place] 00 Reglan No Notes: [facility] 3-26 (Same as: l 21:47: Reglan) Dexamethaso No 10 mg, 2.5 Memoria ne 3-26 mL, Route: l 21:47: IV, Drug [place] 00 form: INJ, ONCE, Dosing Weight 78.008, kg, Priority: STAT, Start date: 09/20/16 16:47:00 CDT, Stop date: 09/20/16 16:47:00 CDT Hydromorpho 2016- No Notes: Joe peter ne 3-26 Same as l 21:47: Dilaudid sodium No 1,000 mL, Memori a chloride 3-26 Rate: l 0.9% 1000 21:47: 1,000 [place] ml INJ 00 ml/hr, 1,000 mL Infuse [...] Weight 73.8, kg, Start date: 06/06/16 11:25:00 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, Stop date: 06/06/16 11:25:00 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 Dilaudid 2015-06 No 1 mg, Mem[facility] 2-10 Route: IM, l 17:25: ONCE, Dosing Weight 73.8, kg, Start date: 06/06/16 11:25:00 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, Stop date: 06/06/16 11:25:00 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 Acetaminoph 2015- Yes 1-2 tab, Me moria en 325 MG / 2-10 PO, Q4-6H, l Hydrocodone 03:47: PRN Pain, H ermann Bitartrate 00 X 5 day, # 10 MG Oral 15 tab, 0 Tablet Refill(s) [Welcome 10/325] Acetaminoph 2015-06 Yes 1-2 tab, Me moria en 325 MG / 2-10 PO, Q4-6H, l Hydrocodone 03:47: PRN Pain, H ermann Bitartrate 00 X 5 day, # 10 MG Oral 15 tab, 0 Tablet Refill(s) [Welcome 10/325] Morphine 2015-06 No 4 mg, Memoria 2-10 Route: IM, l 02:59: ONCE, [place] 00 Dosing Weight 73, kg, Priority: STAT, Start date: 06/05/16 20:59:00 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, Stop date: 06/05/16 20:59:00 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 Morphine 2015-06 No 4 mg, Memoria 2-10 Route: IM, l 02:59: ONCE, [place] 00 Dosing Weight 73, kg, Priority: STAT, Start date: 06/05/16 20:59:00 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, Stop date: 06/05/16 20:59:00 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 Acetaminoph 2015-06 No 1 tab, Joe peter en 325 MG / 2-10 Route: PO, l Hydrocodone 01:53: Drug Form: [place] Bitartrate 00 TAB, 10 MG Oral Dosing Tablet Weight 73, [Welcome kg, ONCE, 10/325] STAT, Start date: 06/05/16 19:53:00 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, Stop date: 06/05/16 19:53:00 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 Acetaminoph 2015-06 No 1 tab, Joe peter en 325 MG / 2-10 Route: PO, l Hydrocodone 01:53: Drug Form: [place] Bitartrate 00 TAB, 10 MG Oral Dosing Tablet Weight 73, [Welcome kg, ONCE, 10/325] STAT, Start date: 06/05/16 19:53:00 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, Stop date: 06/05/16 19:53:00 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 Acetaminoph 2015-06 No 2 tab, Joe peter en 325 MG / 17 Route: PO, l Hydrocodone 18:27: Drug Form: [place] Bitartrate 00 TAB, 5 MG Oral Dosing Tablet Weight [Welcome 66.364, 5/325] kg, ONCE, STAT, 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/14/16 12:27:00 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, Stop date: 05/14/16 12:27:00 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 Acetaminoph 2015-06 No 2 tab, Joe peter en 325 MG / 07-14 Route: PO, l Hydrocodone 18:27: Drug Form: [place] Bitartrate 00 TAB, 5 MG Oral Dosing Tablet Weight [Welcome 66.364, 5/325] kg, ONCE, STAT, 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/14/16 12:27:00 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, Stop date: 05/14/16 12:27:00 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 Dihydroergo 2015-06 No Notes: Joe peter tamine 17 (Same as: l 16:54: D.H.E. 45) Benadryl 2015-06 No 25 mg, Memoria 07-14 Route: l 16:54: IVP, ONCE, Dosing Weight 66.364, kg, Priority: STAT, 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/14/16 10:54:00 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, Stop date: 05/14/16 10:54:00 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 Sodium 2015-06 No 1,000 mL, Memori a Chloride 1-17 1,000 l 0.154 16:54: ml/hr, [place] MEQ/ML 00 Infuse Injectable Over: 1 Solution hr, Route: IV, ONCE, Priority: STAT, Dosing Weight 66.364 kg, 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/14/16 10:54:00 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, Duration: 1 doses or times, Stop date: 05/14/16 10:54:00 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 Dihydroergo 2015-06 No Notes: Joe peter tamine 07-14 (Same as: l 16:54: D.H.E. 45) Benadryl 2015-06 No 25 mg, Memoria 17 Route: l 16:54: IVP, ONCE, Dosing Weight 66.364, kg, Priority: STAT, 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/14/16 10:54:00 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, Stop date: 05/14/16 10:54:00 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 Sodium 2015- No 1,000 mL, Memori a Chloride 1-17 1,000 l 0.154 16:54: ml/hr, [place] MEQ/ML 00 Infuse Injectable Over: 1 Solution hr, Route: IV, ONCE, Priority: STAT, Dosing Weight 66.364 kg, 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/14/16 10:54:00 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, Duration: 1 doses or times, Stop date: 05/14/16 10:54:00 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 Reglan 2015-06 No 10 mg, Memoria 17 Route: l 16:53: IVP, Drug [place] 00 form: INJ, ONCE, Dosing Weight 66.364, kg, Priority: STAT, 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/14/16 10:53:00 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, Stop date: 05/14/16 10:53:00 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 Ketorolac 2015-06 No 4 days Memor ia 07-14 l 16:53: MEDICATION [place] 00 WASTE Product Size: 30 mg Product Wasted: ___ mg Dexamethaso 2015-06 No 10 mg, Joe peter ne 07-14 Route: l 16:53: IVP, ONCE, [place] 00 Dosing Weight 66.364, kg, Priority: STAT, 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/14/16 10:53:00 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, Stop date: 05/14/16 10:53:00 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 Reglan 2015-06 No 10 mg, Memoria 07-14 Route: l 16:53: IVP, Drug [place] 00 form: INJ, ONCE, Dosing Weight 66.364, kg, Priority: STAT, 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/14/16 10:53:00 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, Stop date: 05/14/16 10:53:00 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 Ketorolac 2015-06 No 4 days Memor ia 07-14 l 16:53: MEDICATION [place] 00 WASTE Product Size: 30 mg Product Wasted: ___ mg Dexamethaso 2015-06 No 10 mg, Joe peter ne 07-14 Route: l 16:53: IVP, ONCE, [place] 00 Dosing Weight 66.364, kg, Priority: STAT, 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/14/16 10:53:00 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, Stop date: 05/14/16 10:53:00 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 Miralax 2014-06 No Notes: Memoria 1-02 Dissolve l 23:00: in 8 oz of [place] 00 water or juice. (Same as: Miralax) Miralax 2014-06 No Notes: Memoria 1-02 Dissolve l 23:00: in 8 oz of [place] 00 water or juice. (Same as: Miralax) Flagyl 2014-06 No Notes: Memoria 06-29 (Same as: l 21:00: Flagyl) [place] 00 Avoid alcohol. Flagyl 2014-06 No Notes: Memoria 06-29 (Same as: l 21:00: Flagyl) [place] 00 Avoid alcohol. Cipro 2014-06 No Notes: Do Memoria 06-29 not l 20:00: refrigerat [place] e Cipro 2014-06 No Notes: Do Memoria 06-29 not l 20:00: refrigerat [place] e Metronidazo 2014-06 Yes 500 mg = 1 Memoria le 500 MG 06-29 tab, PO, l Oral Tablet 19:09: Q8H, X 5 He rmann [Flagyl] day, # 15 tab, 0 Refill(s) Ciprofloxac 2014-06 Yes 500 mg = 1 Memoria in 500 MG 06-29 tab, PO, l Oral Tablet 19:09: Q12H, X 5 H ermann [Cipro] day, # 10 tab, 0 Refill(s) Metronidazo 2014-06 Yes 500 mg = 1 Memoria le 500 MG 06-29 tab, PO, l Oral Tablet 19:09: Q8H, X 5 He rmann [Flagyl] day, # 15 tab, 0 Refill(s) Ciprofloxac 2014-06 Yes 500 mg = 1 Memoria in 500 MG 06-29 tab, PO, l Oral Tablet 19:09: Q12H, X 5 H ermann [Cipro] day, # 10 tab, 0 Refill(s) Acetaminoph 2014-06 Yes 1 tab, PO, Memoria en 300 MG / -02 Q6H, PRN l butalbital 18:35: Headache Her davila 50 MG / 00 1-5, # 30 Caffeine 40 tab, 0 MG Oral Refill(s) Capsule [Fioricet] Acetaminoph 2014-06 Yes 1 tab, PO, Memoria en 300 MG / 1-02 Q6H, PRN l butalbital 18:35: Headache Her davila 50 MG / 00 1-5, # 30 Caffeine 40 tab, 0 MG Oral Refill(s) Capsule [Fioricet] Coreg 2014-06 No Notes: Memoria 06-29 Give with l 18:34: food. [place] 00 (Same As: Coreg) Coreg 2014-06 No Notes: Memoria 1-02 Give with l 18:34: food. [place] 00 (Same As: Coreg) Citalopram 2014-06 No Notes: Memor ia 1-02 (Same As: l 15:00: CeleXA) [place] 00 Alprazolam 2014-06 No Notes: Memor ia 1 MG Oral 1-02 With food l Tablet 15:00: or milk [place] [Xanax] 00 (Same as: Xanax) Lisinopril 2014-06 No Notes: Memor ia 1-02 (Same as: l 15:00: Prinivil, [place] 00 Zestril) Furosemide 2014-06 No Notes: Memor ia 20 MG Oral 1-02 (Same as: l Tablet 15:00: Lasix) May Holly nn 00 cause GI upset. Give with food or milk. Citalopram 2014-06 No Notes: Memor ia 1-02 (Same As: l 15:00: CeleXA) [place] 00 Alprazolam 2014-06 No Notes: Memor ia 1 MG Oral 1-02 With food l Tablet 15:00: or milk [place] [Xanax] 00 (Same as: Xanax) Lisinopril 2014-06 No Notes: Memor ia 1-02 (Same as: l 15:00: Prinivil, [place] 00 Zestril) Furosemide 2014-06 No Notes: Memor ia 20 MG Oral 1-02 (Same as: l Tablet 15:00: Lasix) May Holly nn 00 cause GI upset. Give with food or milk. BD Normal 2014-06 No Notes: Memori a Saline 1-02 (Same as: l Flush 12:10: BD [place] 00 Posiflush) BD Normal 2014-06 No Notes: Memori a Saline 1-02 (Same as: l Flush 12:10: BD [place] 00 Posiflush) Phenergan 2014-06 No Notes: Do Mem oria 1-02 not give l 08:57: IV push. [place] 00 (Same as: Phenergan) Phenergan 2014-06 No Notes: Do Mem oria 1-02 not give l 08:57: IV push. [place] 00 (Same as: Phenergan) Trazodone 2014-06 No Notes: Memori a Hydrochlori 06-29 (Same As: l de 50 MG 03:00: Desyrel) Holly nn Oral Tablet 00 Trazodone 2014-06 No Notes: Memori a Hydrochlori 06-29 (Same As: l de 50 MG 03:00: Desyrel) Holly nn Oral Tablet 00 gabapentin 2014-06 No Notes: Memor ia 400 MG Oral 06-28 (Same as: l Capsule 19:00: Neurontin) Herm tc gabapentin 2014-06 No Notes: Memor ia 400 MG Oral 06-28 (Same as: l Capsule 19:00: Neurontin) Herm tc Xanax 2014-06 No Notes: Memoria 06-28 With food l 18:38: or milk [place] 00 (Same as: Xanax) Xanax 2014-06 No Notes: Memoria 06-28 With food l 18:38: or milk [place] 00 (Same as: Xanax) Alprazolam 2014-06 No Notes: Memor ia 1 MG Oral 06-28 With food l Tablet 17:55: or milk [place] [Xanax] 00 (Same as: Xanax) Alprazolam 2014-06 No [...] of acetaminop hen. (Same as: Esgic, Fioricet) Acetaminoph 2014-06 No Notes: Joe peter en [...] Size: 30 mg Product Wasted: ___ mg ketOROLAC 2014-06 No 4 days Memor ia 30 mg/mL 06-28 l injectable 17:39: MEDICATION H ermann solution 00 WASTE Product Size: 30 mg Product Wasted: ___ mg NS + KCL 2014-06 No Notes: Memoria 40mEq/L 1 PREMIX IV l 1000ml 17:38: - Do Not [place] (Premix) 00 Alter 1,000 mL NS + KCL 2014-06 No Notes: Memoria 40mEq/L 06-28 PREMIX IV l 1000ml 17:38: - Do Not [place] (Premix) 00 Alter 1,000 mL Zosyn 2014-06 No Notes: Memoria 1 Infuse l 15:00: over 4 [place] 00 hours. (same as: Zosyn) Zosyn 2014-06 No Notes: Memoria 06-28 Infuse l 15:00: over 4 [place] 00 hours. (same as: Zosyn) ketOROLAC 2014-06 No 4 days Memor ia 15 mg/mL 0-31 l injectable 23:08: MEDICATION H ermann solution 00 WASTE Product Size: 30 mg Product Wasted: ___ mg Acetaminoph 2014-06 No Notes: Joe peter en 0-31 Infuse l 23:08: over 15 [place] 00 minutes Do not exceed 4gm/day of acetaminop hen MEDICATION WASTE Product Size: 1000 mg Product Wasted: ___ mg ketOROLAC 2014-06 No 4 days Memor ia 15 mg/mL 031 l injectable 23:08: MEDICATION H ermann solution 00 WASTE Product Size: 30 mg Product Wasted: ___ mg Acetaminoph 2014-06 No Notes: Joe peter en 0-31 Infuse l 23:08: over 15 [place] 00 minutes Do not exceed 4gm/day of acetaminop hen MEDICATION WASTE Product Size: 1000 mg Product Wasted: ___ mg Zosyn 2014-06 No Notes: Memoria 0-31 Infuse l 23:00: over 4 [place] 00 hours. (same as: Zosyn) Zosyn 2014-06 No Notes: Memoria 0-31 Infuse l 23:00: over 4 [place] 00 hours. (same as: Zosyn) Hydralazine 2014-06 No Notes: Joe petre 0-31 (Same as: l 22:20: Apresoline [place] 00 ) Push over 5 minutes Acetaminoph 2014-06 No Notes: Max Memoria en 0-31 acetaminop l 22:20: hen = 4000 [place] 00 mg/day (4 gm/day). (Same as: Tylenol) Hydralazine 2014-06 No Notes: Joe peter 0-31 (Same as: l 22:20: Apresoline [place] 00 ) Push over 5 minutes Acetaminoph 2014-06 No Notes: Max Memoria en 0-31 acetaminop l 22:20: hen = 4000 [place] 00 mg/day (4 gm/day). (Same as: Tylenol) Zofran 2014-06 No Notes: Memoria 0-31 (Same as: l 22:19: Zofran) [place] 00 MEDICATION WASTE Product Size: 4 mg Product Wasted: ___ mg Dilaudid 2014-06 No Notes: Memoria 0-31 (Same as: l 22:19: Dilaudid) [place] 00 Zofran 2014-06 No Notes: Memoria 0-31 (Same as: l 22:19: Zofran) [place] 00 MEDICATION WASTE Product Size: 4 mg Product Wasted: ___ mg Dilaudid 2014-06 No Notes: Memoria 0-31 (Same as: l 22:19: Dilaudid) [place] 00 NS + KCL 2014-06 No Notes: Memoria 40mEq/L 0-31 PREMIX IV l 1000ml 22:17: - Do Not Solitario (Premix) 00 Alter 1,000 mL NS + KCL 2014-06 No Notes: Memoria 40mEq/L 0-31 PREMIX IV l 1000ml 22:17: - Do Not Solitario (Premix) 00 Alter 1,000 mL baclofen 10 2014-06 Yes 10 mg = 1 M emoria mg oral 0-31 tab, PO, l tablet 22:16: TID, PRN [facility] 00 Spasms, # 90 tab, 0 Refill(s) baclofen 10 2014-06 Yes 10 mg = 1 M emoria mg oral 0-31 tab, PO, l tablet 22:16: TID, PRN [place] 00 Spasms, # 90 tab, 0 Refill(s) influenza 2014-06 No 0.5 mL, Memor ia virus 0-31 Route: IM, l vaccine, 21:19: ONCALL, Bill n inactivated 45 Start date: 04/27/15 16:19:45, Stop date: 05/27/15 16:14:45 influenza 2014-06 No 0.5 mL, Memor ia virus 0- Route: IM, l vaccine, 21:19: ONCALL, Bill n inactivated 45 Start date: 04/27/15 16:19:45, [...] tab, PO, l Tablet 21:14: Daily, # [facility] 00 30 tab, 0 Refill(s) Metoclopram 2014-06 Yes 10 mg = 1 M emoria james 10 MG 0-31 tab, PO, l Oral Tablet 21:14: Q6H, PRN [place] 00 headache, # 56 tab, 0 Refill(s) Promethazin 2014-06 Yes 25 mg = 1 [...] tab, PO, l Tablet 21:14: Daily, # [facility]it[place] 00 30 tab, 0 Refill(s) Metoclopram 2014-06 Yes 10 mg = 1 M emoria james 10 MG 0-31 tab, PO, l Oral Tablet 21:14: Q6H, PRN [place] 00 headache, # 56 tab, 0 Refill(s) Dilaudid 2014-06 No 1 mg, Memoria 0-31 Route: l 20:39: IVP, ONCE, Dosing Weight 74.091, kg, Priority: STAT, Start date: 04/27/15 15:39:00, Stop date: 04/27/15 15:39:00 Dilaudid 2014-06 No 1 mg, Memoria 0-31 Route: l 20:39: IVP, ONCE, Dosing Weight 74.091, kg, Priority: STAT, Start date: 04/27/15 15:39:00, Stop date: 04/27/15 15:39:00 Phenergan 2014-06 No 25 mg, Memori a 0-31 Route: IM, l 19:29: ONCE, Dosing Weight 74.091, kg, Start date: 04/27/15 14:29:00, Stop date: 04/27/15 14:29:00 Ondansetron 2014-06 No 4 mg, Memor ia 0-31 Route: l 19:29: IVP, ONCE, Dosing Weight 74.091, kg, Priority: STAT, Start date: 04/27/15 14:29:00, Stop date: 04/27/15 14:29:00 Phenergan 2014-06 No 25 mg, Memori a 0-31 Route: IM, l 19:29: ONCE, Dosing Weight 74.091, kg, Start date: 04/27/15 14:29:00, Stop date: 04/27/15 14:29:00 Ondansetron 2014-06 No 4 mg, Mem[facility] ia 0-31 Route: l 19:29: IVP, ONCE, Dosing Weight 74.091, kg, Priority: STAT, Start date: 04/27/15 14:29:00, Stop date: 04/27/15 14:29:00 Potassium 2015-1 No Notes: Mem[facility] a Chloride 20 0-31 (Same as: l MEQ 17:19: K-Dur 20) [place] Extended 00 "Do Not Release Crush" Tablet With food and full glass of water Potassium 2014-06 No Notes: [facility] a Chloride 20 0-31 (Same as: l MEQ 17:19: K-Dur 20) [place] Extended 00 "Do Not Release Crush" Tablet With food and full glass of water Hydromorpho 2014-06 No 1 mg, Mem[facility] ia ne 0-31 Route: l 16:30: IVP, ONCE, [facility] 00 Dosing Weight 74.091, kg, Priority: STAT, Start date: 04/27/15 11:30:00, Stop date: 04/27/15 11:30:00 Hydromorpho 2014-06 No 1 mg, [facility] ne 0-31 Route: l 16:30: IVP, ONCE, Dosing Weight 74.091, kg, Priority: STAT, Start date: 04/27/15 11:30:00, Stop date: 04/27/15 11:30:00 Ondansetron 2014-06 No 4 mg, [facility] ia 0-31 Route: l 15:34: IVP, ONCE, Dosing Weight 74.091, kg, Priority: STAT, Start date: 04/27/15 10:34:00, Stop date: 04/27/15 10:34:00 Saline 2014-06 No Notes: [facility] Flush 0.9% 0-31 (Same as: l 15:34: BD [facility] Posiflush) Sodium 2014-06 No 1,000 mL, [facility] a Chloride 0-31 Infuse l 0.154 15:34: Over: 1 [place] MEQ/ML 00 hr, Route: Injectable IV, ONCE, Solution Priority: STAT, Dosing Weight 74.091 kg, Start date: 04/27/15 10:34:00, Duration: 1 doses or times, Stop date: 04/27/15 10:34:00 Ondansetron 2014-06 No 4 mg, [facility] 0-31 Route: l 15:34: IVP, ONCE, Dosing Weight 74.091, kg, Priority: STAT, Start date: 04/27/15 10:34:00, Stop date: 04/27/15 10:34:00 Saline 2014-06 No Notes: [facility] Flush 0.9% 0-31 (Same as: l 15:34: BD [facility] 00 Posiflush) Sodium 2014-06 No 1,000 mL, [facility] a Chloride 0-31 Infuse l 0.154 15:34: Over: 1 [place] MEQ/ML 00 hr, Route: Injectable IV, ONCE, Solution Priority: STAT, Dosing Weight 74.091 kg, Start date: 04/27/15 10:34:00, Duration: 1 doses or times, Stop date: 04/27/15 10:34:00 Sulfamethox Yes 1 tab, PO, Memoria azole 800 7-05 BID, X 7 l MG / 21:51: day, # 14 [facility] Trimethopri 00 tab, 0 m 160 MG Refill(s), Oral Tablet Pharmacy: [[facility] Sulfamethox Yes 1 tab, PO, Memoria azole 800 7-05 BID, X 7 l MG / 21:51: day, # 14 [facility] Trimethopri 00 tab, 0 m 160 MG Refill(s), Oral Tablet Pharmacy: [[facility] Furosemide Yes 20 mg = 1 Me moria 20 MG Oral 4-27 tab, PO, l Tablet 17:40: Daily, # 3 Holly nn [Lasix] 00 tab, 0 Refill(s), Pharmacy: [facility] Furosemide Yes 20 mg = 1 Me moria 20 MG Oral 4-27 tab, PO, l Tablet 17:40: Daily, # 3 Holly nn [Lasix] 00 tab, 0 Refill(s), Pharmacy: [facility] Reglan No 10 mg, [facility] 4-27 Route: l 16:30: IVP, Drug [place] form: INJ, ONCE, Dosing Weight 83.682, kg, Priority: STAT, Start date: 10/22/14 11:30:00, Stop date: 10/22/14 11:30:00 Reglan No 10 mg, [facility] 4-27 Route: l 16:30: IVP, Drug [place] 00 form: INJ, ONCE, Dosing Weight 83.682, kg, Priority: STAT, Start date: 10/22/14 11:30:00, Stop date: 10/22/14 11:30:00 Saline 2014-0 No 10 mL, [facility] Flush 0.9% 10-22 Route: l 16:29: IVP, Drug [facility] 00 Form: INJ, Dosing Weight 83.682, kg, PRN, PRN Line Flush, Start date: 10/22/14 11:29:00, Duration: 30 day, Stop date: 11/21/14 11:28:00 Saline 2014-0 No 10 mL, [facility] Flush 0.9% 10-22 Route: l 16:29: IVP, Drug [place] 00 Form: INJ, Dosing Weight 83.682, kg, PRN, PRN Line Flush, Start date: 10/22/14 11:29:00, Duration: 30 day, Stop date: 11/21/14 11:28:00 Alprazolam 0 No Notes: [facility] 1 MG Oral 1-23 With food l Tablet 06:36: or milk [place] [Xanax] 00 (Same as: Xanax) Alprazolam 0 No Notes: [facility] 1 MG Oral 1-23 With food l Tablet 06:36: or milk [facility] [Xanax] 00 (Same as: Xanax) Sodium 2015-0 No 1,000 mL, [facility] a Chloride 1-23 1,000 l 0.154 04:42: ml/hr, [place] MEQ/ML 00 Infuse Injectable Over: 1 Solution hr, Route: IV, 1,000, Drug form: INJ, ONCE, Priority: STAT, Dosing Weight 84.545 kg, Start date: 07/19/14 22:42:00, Duration: 1 doses or times, Stop date: 07/19/14 22:42:00 Sodium 2015-0 No 1,000 mL, [facility] a Chloride 1-23 1,000 l 0.154 04:42: ml/hr, [place] MEQ/ML 00 Infuse Injectable Over: 1 Solution hr, Route: IV, 1,000, Drug form: INJ, ONCE, Priority: STAT, Dosing Weight 84.545 kg, Start date: 07/19/14 22:42:00, Duration: 1 doses or times, Stop date: 07/19/14 22:42:00 Immunizations Ordered Immunization Filled Immunization Date Status Commen ts Source Name Name influenza virus 2015-04-27 Completed [facility] vaccine, inactivated 23:11:00 [facility] influenza virus 2015-04-27 Completed [facility] vaccine, inactivated 23:11:00 [facility] tetanus-diphtheria 2011-02-14 Completed [facility] toxoids 07:17:00 [facility] tetanus-diphtheria 2011-02-14 Completed [facility] toxoids 07:17:00 [place] tetanus-diphtheria 2011-02-14 Completed [facility] toxoids 07:17:00 [facility] tetanus-diphtheria 2011-02-14 Completed [facility] toxoids 07:17:00 [place] Vital Signs Vital Name Observation Time Observation Value Comments Source Systolic blood 2021-11-12 23:33:00 152 mm[Hg] [facility] Diastolic blood 2021-11-12 23:33:00 97 mm[Hg] Unive rsity [facility] Heart rate 2021-11-12 23:33:00 64 /min [facility] Body temperature 2021-11-12 21:56:00 37.06 [place] [facility] rate 2021-11-12 21:56:00 18 /min [facility] Oxygen saturation in 2021-11-12 21:56:00 100 /min [facility] Arterial blood by [facility] Pulse oximetry [place] Body weight 2021-11-12 08:09:00 57.97 kg [facility] BMI 2021-11-12 08:09:00 21.27 kg/m2 [facility] Body height 2021-11-11 03:04:00 165.1 cm [facility] Systolic (mm Hg) 2020-11-27 20:27:00 Joe rial [place] Diastolic (mm Hg) 2020-11-27 20:27:00 Mem orial [place] Heart Rate 2020-11-27 20:27:00 [facility] Temperature Oral (F) 2020-11-27 20:27:00 98.2 F [facility] Height 2020-11-27 20:27:00 166.37 cm [facility] Weight 2020-11-27 20:27:00 [facility] BMI Calculated 2020-11-27 20:27:00 Memori al [place] Systolic (mm Hg) 2018-02-10 00:00:00 Joe rial [place] Diastolic (mm Hg) 2018-02-10 00:00:00 [facility] [place] Temperature Oral (F) 2018-02-10 00:00:00 97.7 F [facility] [place] Heart Rate 2018-02-10 00:00:00 [facility] Respitory Rate 2018-02-10 00:00:00 [facility] [place] Systolic (mm Hg) 2018-02-09 23:02:00 Joe rial [place] Diastolic (mm Hg) 2018-02-09 23:02:00 Mem [facility] [place] Respitory Rate 2018-02-09 23:02:00 [facility] al [place] Heart Rate 2018-02-09 23:02:00 [facility] Systolic (mm Hg) 2018-02-09 21:54:00 Joe rial [place] Diastolic (mm Hg) 2018-02-09 21:54:00 [facility] [place] Respitory Rate 2018-02-09 21:54:00 [facility] [place] Heart Rate 2018-02-09 21:54:00 [facility] [place] BMI Calculated 2018-02-09 16:42:00 [facility] [place] Weight 2018-02-09 16:42:00 [facility] Height 2018-02-09 16:42:00 165.1 cm [facility] Temperature Oral (F) 2018-02-09 16:42:00 97.9 F [facility] [place] Respitory Rate 2018-01-25 18:15:00 [facility] al [place] Heart Rate 2018-01-25 18:15:00 [facility] [place] Systolic (mm Hg) 2018-01-25 18:15:00 Joe rial [place] Diastolic (mm Hg) 2018-01-25 18:15:00 [facility] [place] Temperature Oral (F) 2018-01-25 18:15:00 97.8 F [facility] Weight 2018-01-25 14:34:00 [facility] BMI Calculated 2018-01-25 14:34:00 [facility] [place] Height 2018-01-25 14:34:00 165.1 cm [facility] Systolic (mm Hg) 2018-01-25 14:34:00 Joe rial [place] Diastolic (mm Hg) 2018-01-25 14:34:00 Mem orial [place] Temperature Oral (F) 2018-01-25 14:34:00 98.5 F [facility] Respitory Rate 2018-01-25 14:34:00 [facility] [place] Heart Rate 2018-01-25 14:34:00 [facility] [place] Respitory Rate 2017-11-01 20:18:00 [facility] [place] Heart Rate 2017-11-01 20:18:00 [facility] Systolic (mm Hg) 2017-11-01 20:18:00 Joe rial [place] Diastolic (mm Hg) 2017-11-01 20:18:00 Mem orial [place] Temperature Oral (F) 2017-11-01 20:18:00 98.1 F [facility] Temperature Oral (F) 2017-11-01 19:43:00 98.1 F [facility] Respitory Rate 2017-11-01 19:43:00 [facility] al [place] Heart Rate 2017-11-01 19:43:00 [facility] [place] Systolic (mm Hg) 2017-11-01 19:43:00 Joe rial [facility] Diastolic (mm Hg) 2017-11-01 19:43:00 [facility] [place] Temperature Oral (F) 2017-11-01 16:46:00 97.7 F [facility] [place] Height 2017-11-01 16:46:00 165.1 cm [facility] [place] Weight 2017-11-01 16:46:00 [facility] [place] BMI Calculated 2017-11-01 16:46:00 Mem[facility] al [place] Systolic (mm Hg) 2017-11-01 16:46:00 Joe rial [place] Diastolic (mm Hg) 2017-11-01 16:46:00 Mem o[facility] Respitory Rate 2017-11-01 16:46:00 [facility] al [place] Heart Rate 2017-11-01 16:46:00 [facility] [place] Systolic (mm Hg) 2017-05-17 03:55:00 Joe rial [facility] Diastolic (mm Hg) 2017-05-17 03:55:00 Mem orial [place] Heart Rate 2017-05-17 03:55:00 [facility] [place] Respitory Rate 2017-05-17 03:55:00 [facility] al [place] Temperature Oral (F) 2017-05-17 03:55:00 98.6 F [facility] Weight 2017-05-17 00:51:00 [facility] Temperature Oral (F) 2017-05-17 00:51:00 98.5 F [facility] Heart Rate 2017-05-17 00:51:00 [facility] [place] Respitory Rate 2017-05-17 00:51:00 Mem[facility] al [place] Systolic (mm Hg) 2017-05-17 00:51:00 Joe rial [facility] Diastolic (mm Hg) 2017-05-17 00:51:00 [facility] [place] Heart Rate 2017-04-09 16:02:00 [facility] [place] Systolic (mm Hg) 2017-04-09 16:02:00 Joe rial [facility] Diastolic (mm Hg) 2017-04-09 16:02:00 [facility] [place] Respitory Rate 2017-04-09 16:02:00 [facility] [place] Weight 2017-04-09 14:43:00 [facility] [place] BMI Calculated 2017-04-09 14:43:00 [facility] Height 2017-04-09 14:43:00 165.1 cm [facility] Temperature Oral (F) 2017-04-09 14:43:00 97.9 F [facility] [place] Systolic (mm Hg) 2017-04-09 14:43:00 Joe rial [facility] Diastolic (mm Hg) 2017-04-09 14:43:00 Mem orial [place] Respitory Rate 2017-04-09 14:43:00 [facility] Heart Rate 2017-04-09 14:43:00 [facility] [place] Heart Rate 2017-01-20 06:46:00 [facility] [place] Respitory Rate 2017-01-20 06:46:00 [facility] [place] Temperature Oral (F) 2017-01-20 06:46:00 97.9 F [facility] Systolic (mm Hg) 2017-01-20 06:46:00 Joe rial [place] Diastolic (mm Hg) 2017-01-20 06:46:00 [facility] [place] Temperature Oral (F) 2017-01-20 05:49:00 98.0 F [facility] Respitory Rate 2017-01-20 05:49:00 Mem[facility] al [place] Systolic (mm Hg) 2017-01-20 05:49:00 Joe rial [facility] Diastolic (mm Hg) 2017-01-20 05:49:00 Mem orial [place] Heart Rate 2017-01-20 05:49:00 [facility] [place] Systolic (mm Hg) 2017-01-20 03:00:00 Joe rial [facility] Diastolic (mm Hg) 2017-01-20 03:00:00 [facility] [place] Respitory Rate 2017-01-20 03:00:00 [facility] [place] Heart Rate 2017-01-20 03:00:00 [facility] [place] Height 2017-01-20 00:47:00 165.1 cm [facility] [place] BMI Calculated 2017-01-20 00:47:00 [facility] [place] Weight 2017-01-20 00:47:00 [facility] [place] Temperature Oral (F) 2017-01-20 00:47:00 98.2 F [facility] Temperature Oral (F) 2017-01-08 23:12:00 98 F [facility] Heart Rate 2017-01-08 23:12:00 [facility] Respitory Rate 2017-01-08 23:12:00 [facility] [place] Systolic (mm Hg) 2017-01-08 23:12:00 Joe rial [facility] Diastolic (mm Hg) 2017-01-08 23:12:00 Mem o[facility] [place] BMI Calculated 2017-01-08 19:43:00 [facility] [place] Weight 2017-01-08 19:43:00 [facility] Height 2017-01-08 19:43:00 165.1 cm [facility] Respitory Rate 2017-01-08 19:43:00 [facility] [place] Temperature Oral (F) 2017-01-08 19:43:00 98.1 F [facility] [place] Heart Rate 2017-01-08 19:43:00 [facility] Systolic (mm Hg) 2017-01-08 19:43:00 Joe rial [facility] Diastolic (mm Hg) 2017-01-08 19:43:00 Mem orial [place] Temperature Oral (F) 2016-09-20 23:48:00 98.0 F [facility] Respitory Rate 2016-09-20 23:48:00 [facility] [place] Heart Rate 2016-09-20 23:48:00 [facility] Systolic (mm Hg) 2016-09-20 23:48:00 Joe rial [place] Diastolic (mm Hg) 2016-09-20 23:48:00 Mem orial [place] Weight 2016-09-20 21:13:00 [facility] BMI Calculated 2016-09-20 21:13:00 [facility] [place] Height 2016-09-20 21:13:00 165.1 cm [facility] [place] Temperature Oral (F) 2016-09-20 21:13:00 98.1 F [facility] Respitory Rate 2016-09-20 21:13:00 [facility] [place] Heart Rate 2016-09-20 21:13:00 [facility] [place] Systolic (mm Hg) 2016-09-20 21:13:00 Joe rial [place] Diastolic (mm Hg) 2016-09-20 21:13:00 Mem orial [place] Systolic (mm Hg) 2016-06-06 19:15:00 Joe rial [facility] Diastolic (mm Hg) 2016-06-06 19:15:00 [facility] [place] Respitory Rate 2016-06-06 19:15:00 [facility] [place] Temperature Oral (F) 2016-06-06 19:15:00 98.0 F [facility] Heart Rate 2016-06-06 19:15:00 [facility] [place] Systolic (mm Hg) 2016-06-06 17:19:00 Joe rial [facility] Diastolic (mm Hg) 2016-06-06 17:19:00 Mem orial [place] Heart Rate 2016-06-06 17:19:00 [facility] Respitory Rate 2016-06-06 17:19:00 [facility] [place] Weight 2016-06-06 17:19:00 [facility] [place] Temperature Oral (F) 2016-06-06 17:19:00 98.0 F [facility] [place] Heart Rate 2016-06-06 04:00:00 [facility] [place] Respitory Rate 2016-06-06 04:00:00 [facility] [place] Temperature Oral (F) 2016-06-06 04:00:00 98.1 F [facility] Systolic (mm Hg) 2016-06-06 04:00:00 Joe rial [place] Diastolic (mm Hg) 2016-06-06 04:00:00 Mem [facility] Respitory Rate 2016-06-06 02:33:00 [facility] [place] Systolic (mm Hg) 2016-06-06 02:33:00 Joe rial [place] Diastolic (mm Hg) 2016-06-06 02:33:00 [facility] [place] Heart Rate 2016-06-06 02:33:00 [facility] Weight 2016-06-06 01:33:00 [facility] Temperature Oral (F) 2016-06-06 01:33:00 98.1 F [facility] [place] Respitory Rate 2016-06-06 01:33:00 Memori al [place] Heart Rate 2016-06-06 01:33:00 [facility] Systolic (mm Hg) 2016-06-06 01:33:00 Joe rial [place] Diastolic (mm Hg) 2016-06-06 01:33:00 [facility] Heart Rate 2016-05-14 19:00:00 [facility] [place] Respitory Rate 2016-05-14 19:00:00 [facility] [place] Systolic (mm Hg) 2016-05-14 19:00:00 Joe rial [place] Diastolic (mm Hg) 2016-05-14 19:00:00 Mem [facility] [place] BMI Calculated 2016-05-14 16:16:00 [facility] Weight 2016-05-14 16:16:00 [facility] Systolic (mm Hg) 2016-05-14 16:16:00 Joe rial [place] Diastolic (mm Hg) 2016-05-14 16:16:00 [facility] [place] Height 2016-05-14 16:16:00 165.1 cm [facility] [place] Respitory Rate 2016-05-14 16:16:00 [facility] [place] Heart Rate 2016-05-14 16:16:00 [facility] [place] Temperature Oral (F) 2016-05-14 16:16:00 99.0 F [facility] Temperature Oral (F) 2015-04-29 22:15:00 98.6 F [facility] Heart Rate 2015-04-29 22:15:00 [facility] [place] Respitory Rate 2015-04-29 22:15:00 [facility] [place] Systolic (mm Hg) 2015-04-29 22:15:00 Joe rial [facility] Diastolic (mm Hg) 2015-04-29 22:15:00 Mem orial [place] Heart Rate 2015-04-29 18:35:00 [facility] Respitory Rate 2015-04-29 18:35:00 [facility] [place] Temperature Oral (F) 2015-04-29 18:35:00 98.6 F [facility] [place] Systolic (mm Hg) 2015-04-29 18:35:00 Joe rial [facility] Diastolic (mm Hg) 2015-04-29 18:35:00 [facility] [place] Temperature Oral (F) 2015-04-29 14:31:00 99.6 F [facility] Systolic (mm Hg) 2015-04-29 14:31:00 Joe rial [place] Diastolic (mm Hg) 2015-04-29 14:31:00 [facility] [place] Respitory Rate 2015-04-29 14:31:00 [facility] [place] Heart Rate 2015-04-29 14:31:00 [facility] Weight 2015-04-27 21:05:00 [facility] [place] BMI Calculated 2015-04-27 21:05:00 [facility] [place] Height 2015-04-27 21:05:00 165.1 cm [facility] [place] Weight 2015-04-27 15:23:00 [facility] [place] Respitory Rate 2014-12-30 22:10:00 [facility] [place] Systolic (mm Hg) 2014-12-30 22:10:00 Joe rial [place] Diastolic (mm Hg) 2014-12-30 22:10:00 [facility] Heart Rate 2014-12-30 22:10:00 [facility] BMI Calculated 2014-12-30 21:24:00 [facility] [place] Weight 2014-12-30 21:24:00 [facility] [place] Temperature Oral (F) 2014-12-30 21:24:00 98.1 F [facility] [place] Respitory Rate 2014-12-30 21:24:00 [facility] [place] Height 2014-12-30 21:24:00 165.1 cm [facility] Heart Rate 2014-12-30 21:24:00 [facility] Systolic (mm Hg) 2014-12-30 21:24:00 Joe rial [place] Diastolic (mm Hg) 2014-12-30 21:24:00 [facility] [place] Heart Rate 2014-10-22 17:57:00 [facility] Systolic (mm Hg) 2014-10-22 17:57:00 Joe rial [place] Diastolic (mm Hg) 2014-10-22 17:57:00 [facility] Respitory Rate 2014-10-22 17:57:00 [facility] [place] Weight 2014-10-22 16:22:00 [facility] Temperature Oral (F) 2014-10-22 16:22:00 97.7 F [facility] Respitory Rate 2014-10-22 16:22:00 [facility] al [place] Heart Rate 2014-10-22 16:22:00 [facility] [place] Systolic (mm Hg) 2014-10-22 16:22:00 Joe rial [facility] Diastolic (mm Hg) 2014-10-22 16:22:00 [facility] [place] Heart Rate 2014-07-20 06:50:00 [facility] Respitory Rate 2014-07-20 06:50:00 [facility] [place] Temperature Oral (F) 2014-07-20 06:50:00 97.9 F [facility] [place] Systolic (mm Hg) 2014-07-20 06:50:00 Joe rial [place] Diastolic (mm Hg) 2014-07-20 06:50:00 Mem orial [place] Heart Rate 2014-07-20 04:14:00 [facility] [place] Respitory Rate 2014-07-20 04:14:00 [facility] [place] Temperature Oral (F) 2014-07-20 04:14:00 98.3 F [facility] [place] Systolic (mm Hg) 2014-07-20 04:14:00 Joe rial [place] Diastolic (mm Hg) 2014-07-20 04:14:00 [facility] Weight 2014-07-20 04:14:00 [facility] Procedures Procedure Date / Time Performing Source Performed Clinician TROPONIN I 2021-11-12 Eanrestine Oneal [place] [facility] 09:12:00 [facility] COMP. METABOLIC PANEL (81157) 2021-11-12 Ny Carreon iversity of 09:12:00 [facility] CBC WITH DIFF 2021-11-12 Ny Carreon [place] [facility] 09:12:00 [facility] ACUTE CARE VENOUS BLOOD GAS 2021-11-11 Ny Carreon [facility] ersity of 10:26:00 [facility] PHOSPHORUS 2021-11-11 Ny Carreon [place] [facility] 10:07:00 [facility] CREATINE KINASE 2021-11-11 Lauri, [facility] of 10:07:00 [facility] MAGNESIUM 2021-11-11 Lauri, [facility] of 10:07:00 [facility] VITAMIN B12, LEVEL 2021-11-11 Lauri, [facility] of 10:07:00 [facility] C-REACTIVE PROTEIN 2021-11-11 Lauri, [facility] of 10:07:00 [facility] TROPONIN I 2021-11-11 Lauri, [facility] of 10:07:00 [facility] COMP. METABOLIC PANEL ([id number]) 2021-11-11 Ny Carreon iversity of 10:07:00 [facility] SEDIMENTATION RATE 2021-11-11 Lauri, [facility] of 10:07:00 [facility] CBC WITH DIFF 2021-11-11 Lauri, [facility] of 10:07:00 [facility] N-TERMINAL PRO-BNP 2021-11-11 Lauri, [facility] of 10:07:00 [facility] VITAMIN D, 25-OH 2021-11-11 Lauri, [facility] of 10:07:00 [facility] PROCALCITONIN 2021-11-11 Lauri, [facility] of 10:07:00 [facility] URINE DRUG (IMMUNOASSAY) - 2021-11-11 Mala Suazo [facility] ersity of COMPREHENSIVE DRUG SCREEN 01:51:00 [facility] URINALYSIS 2021-11-11 Mala Suazo [place] [facility] 01:51:00 [facility] BLOOD CULTURE SCREEN 2021-11-11 Mala Suazo [place] [facility] 01:38:00 [facility] LACTIC ACID WHOLE BLOOD 2021-11-11 Mala Suazo [facility] ity of 01:38:00 [facility] HB ECG ROUTINE & RHYTHM STRIP 2021-11-11 Mala Suazo [facility] of 01:03:48 [facility] [address] ABDOMEN PELVIS W CONTRAST 2021-11-11 Mlaa Suazo Un iversity of 00:36:00 [facility] PHOSPHORUS 2021-11-11 Lauri, [facility] of 00:02:00 [facility] URIC ACID 2021-11-11 Lauri, [facility] of 00:02:00 [facility] AMYLASE 2021-11-11 Lauri, [facility] of 00:02:00 [facility] LIPASE 2021-11-11 Mala Suazo [place] [facility] 00:02:00 [facility] MAGNESIUM 2021-11-11 Ny Carreon [place] [facility] 00:02:00 [facility] FERRITIN SERUM 2021-11-11 Ny Carreon [place] [facility] 00:02:00 [facility] TROPONIN I 2021-11-11 Mala Suazo [place] [facility] 00:02:00 [facility] THYROID STIMULATING HORMONE 2021-11-11 Ny Carreon [facility] ersity of 00:02:00 [facility] COMP. METABOLIC PANEL ([id number]) 2021-11-11 Mala Suazo niversity of 00:02:00 [facility] LIPID PANEL ([id number])(TOTAL 2021-11-11 Ny Carreon [facility] sity of CHOLESTEROL, TRIGLYCERIDES, HDL) 00:02:00 [facility] IRON PANEL 2021-11-11 [facility] CBC WITH DIFF 2021-11-11 Mala Suazo [place] [facility] 00:02:00 [facility] GLYCOSYLATED HEMOGLOBIN (A1C) 2021-11-11 Ny Carreon iversity of 00:02:00 [facility] PROTHROMBIN TIME / INR 2021-11-11 Mala Suazo [facility] ty of 00:02:00 [facility] N-TERMINAL PRO-BNP 2021-11-11 Mala Suazo [place] [facility] 00:02:00 [facility] EMERGENCY DEPARTMENT DOCUMENTS 2021-11-10 Doctor U niversity of 05:01:00 Unassigned, No [facility] Colon[facility] 2019-09-27 [facility] 20:54:02 Esophagogastroduodenoscopy 2019-09-27 Mem[facility] ial [facility] 05:00:00 Tonsillectomy and adenoidectomy [facility] Exploration of abdomen [facility] Encounters Start End Encounter Admission Attending Care Care Encounter Source Date/Time Date/Time Type Type Clinicians Facility Department ID 2022-01-13 2022-01-13 Outpatient LUIS MIGUEL OLIVAREZ [id number] [place] 04:37:00 04:37:00 HN 0719 da [facility] 2021-11-13 2021-11-13 Telephone [facility] [id number] Univers 00:00:00 00:00:00 Earnestine JUAREZ [id number] ity [facility] [id number] [id number] [facility] 059 [facility] 2021-11-13 2021-11-13 Transition LEONARDO Vyas [id number] Univers 00:00:00 00:00:00 of Care Radha Emelia REAGAN [id number] [id number] [id number] [facility] [address] 2021-11-10 2021-11-12 Hospital Mala Suazo [facility] [id number] Univers 18:39:00 19:10:00 Encounter Ny Carreon [id number] ity of Billy Tapia [id number] [facility] [id number] [facility] [address] 2021-11-10 2021-11-12 Outpatient X ALEKSANDR [facility] KIMMIE [id number] Univers 18:39:00 19:10:00 BILLY dean [facility] 2020-11-27 2020-11-28 Outpatient nullFlavo [facility] [id number] Memoria 20:00:00 04:59:59 r Primary 00 l Care [facility] 2020-11-27 2020-11-28 Outpatient nullFlavo [facility] [id number] Memoria 20:00:00 04:59:59 r Primary 00 l Care [facility] 2020-11-27 2020-11-27 Outpatient Francisco Jorge [facility] [id number] 15:00:00 23:59:59 00 2020-11-27 2020-11-27 Outpatient [place] [id number] [facility] 15:00:00 15:00:00 00 emelia Jerez 2019-01-21 2019-01-24 Inpatient Elmer ERVIN [facility] [id number] [facility] 17:51:00 13:13:00 MEHJABIN Medic al [place] 2018-07-16 2018-07-19 Outpatient E TONNY, [facility] [id number] [place] 15:24:00 14:47:00 LESTER [facility] [place] 2018-06-30 2018-07-01 Outpatient E ELEANOR, [facility] TELE [id number] [place] 16:03:00 17:15:00 DYLON [facility] 2018-05-17 2018-05-17 Emergency E WILLIAM, [facility] ECC [id number] [place] 13:38:00 15:27:00 PATI [facility] 2018-03-09 2018-03-09 Emergency E CHRIS, [facility] ECC [id number] [place] 10:29:00 14:00:00 ANDREW [facility] 2018-02-09 2018-02-10 [facility] [id number] [facility] 16:37:00 00:33:00 r Solit[facility] 28 l [facility] 2018-02-09 2018-02-10 [facility] [id number] [facility] 16:37:00 00:33:00 r Solitario 28 l [facility] 2018-02-09 2018-02-09 Outpatient Yael, [facility] SL [id number] 11:37:00 19:33:00 Kiera Bell 2018-01-25 2018-01-25 [facility] [id number] [facility] 14:31:00 19:00:00 r Solitario 27 l [facility] 2018-01-25 2018-01-25 [facility] [id number] [facility] 14:31:00 19:00:00 r Solitario 27 l [facility] 2018-01-25 2018-01-25 Outpatient Lauri Jose [facility] [id number] 09:31:00 14:00:00 Si 27 2017-11-01 2017-11-01 [facility] [id number] [facility] 16:24:00 20:20:00 r Solitario 26 l [facility] 2017-11-01 2017-11-01 [facility] [id number] [facility] 16:24:00 20:20:00 r Solitario 26 l [facility] 2017-11-01 2017-11-01 Outpatient Shashank Lopez [facility] [id number] 11:24:00 15:20:00 Y 26 2017-05-17 2017-05-17 [facility] [id number] [facility] 00:43:00 04:10:00 r Solitario 25 l [facility] 2017-05-17 2017-05-17 [facility] [id number] [facility] 00:43:00 04:10:00 r Solitario 25 l [facility] 2017-05-16 2017-05-16 Out[facility] Zoran[facility] [id number] 18:43:00 22:10:00 Adelia Valentin 2017-04-09 2017-04-09 [facility] [id number] [facility] 14:40:00 16:47:00 r [place] 24 l [facility] 2017-04-09 2017-04-09 [facility] [id number] [facility] 14:40:00 16:47:00 r Solitario 24 l [facility] 2017-04-09 2017-04-09 Outpatient Marco Antonio [facility] [id number] 09:40:00 11:47:00 Meng Childress 2017-01-20 2017-01-20 [facility] [id number] [facility] 00:27:00 06:50:00 r Solitario 23 l [facility] 2017-01-20 2017-01-20 [facility] [id number] [facility] 00:27:00 06:50:00 r [place] 23 l [facility] 2017-01-19 2017-01-20 Outpatient Francisco Arvin [facility] [id number] 19:27:00 01:50:00 2017-01-08 2017-01-08 [facility] [id number] [facility] 19:26:00 23:14:00 r [place] 22 l [facility] 2017-01-08 2017-01-08 [facility] [id number] [facility] 19:26:00 23:14:00 r Solitario 22 l [facility] 2017-01-08 2017-01-08 Outpatient Yael, [facility] [id number] 14:26:00 18:14:00 Kiera 22 Arabella 2016-09-20 2016-09-21 [facility] [id number] [facility] 21:11:00 00:12:00 r [place] 21 l [facility] 2016-09-20 2016-09-21 [facility] [id number] [facility] 21:11:00 00:12:00 r [place] 21 l [facility] 2016-09-20 2016-09-20 Outpatient ALEXA Cheema S [id number] 16:11:00 19:12:00 Sebastian Tj Pavan 2016-06-06 2016-06-06 [facility] [id number] [facility] 17:06:00 19:18:00 r [place] 20 l [facility] 2016-06-06 2016-06-06 [facility] [id number] [facility] 17:06:00 19:18:00 r Solitario 20 l [facility] 2016-06-06 2016-06-06 Outpatient Sunil Ruiz [facility] [id number] 11:06:00 13:18:00 Fannie 20 2016-06-06 2016-06-06 [facility] [id number] [facility] 01:11:00 04:18:00 r Solitario 19 l [facility] 2016-06-06 2016-06-06 [facility] [id number] [facility] 01:11:00 04:18:00 r Solitario 19 l [facility] 2016-06-05 2016-06-05 Outpatient ALEXA Conley [facility] [id number] 19:11:00 22:18:00 Kiera Shyann Bell 2016-05-14 2016-05-14 [facility] [id number] [facility] 16:10:00 19:00:00 r Solitario 18 l [facility] 2016-05-14 2016-05-14 [facility] [id number] [facility] 16:10:00 19:00:00 r Solitario 18 l [facility] 2016-05-14 2016-05-14 Outpatient ALEXA Cheema S [id number] 10:10:00 13:00:00 Sebastian 18 [place] 2015-04-27 2015-04-29 OBS [facility] [id number] [facility] 15:15:00 23:30:00 Observatio r Solitario 16 l n Patient [facility] dav[place] 2015-04-27 2015-04-29 OBS [facility] [id number] [facility] 15:15:00 23:30:00 Observatio r Solitario 16 l n Patient [place] davila 2015-04-27 2015-04-29 Outpatient Betsey, SL [facility] [id number] 10:15:00 17:30:00 Mustaq Miesha Hathaway 2014-12-30 2014-12-30 EC [facility] [id number] [facility] 21:22:00 22:11:00 Emergency r [place] 14 l Center [facility] 2014-12-30 2014-12-30 EC [facility] [id number] [facility] 21:22:00 22:11:00 Emergency r Solitario 14 l Center [facility] 2014-12-30 2014-12-30 Outpatient Iram Lunsford 2.16.840. 2.16.840.1 . [id number] 16:22:00 17:11:00 Julian 1.661625. [id number] 3.615.0.1 5.0.869 91 9378-04-27 2014-10-22 EC [facility] [id number] [facility] 16:11:00 17:59:00 Emergency r [place] 13 l Center [facility] 2014-10-22 2014-10-22 EC [facility] [id number] [facility] 16:11:00 17:59:00 Emergency r [place] 13 l Center [facility] 2014-10-22 2014-10-22 Outpatient RuizSunil 2.16.840. 2.16.840. 1. [id number] 11:11:00 12:59:00 Fannie 1.084895. [id number] 13 3.615.0.1 5.0.493 30 8356-01-23 2014-07-20 EC [facility] [id number] [facility] 04:06:00 06:52:00 Emergency r Solitario 12 l [facility] 2014-07-20 2014-07-20 [facility] [id number] 04:06[facility] 06:52:00 Emergency r Solitario 12 l [facility] 2014-07-19 2014-07-20 Outpatient Davion 2.16.840. 2.16.840.1. 3 [id number] 22:06:00 00:52:00 Vimi 1.243963. [id number] 12 3.615.0.1 5.0.101 01 Results Test Description Test Time Test Comments Results Result Comments Source TROPONIN I 2021-11-12 12:51:42 Test Item Value Reference Range Interpretation Comme nts TROPONIN I (test code = 0.015 ng/mL See_Comment [Au tomated message] The 7755013814) system which ge nerated this result tra [...] biotin. Lab Interpretation Normal (test code = 95030-2) [facility] (98485)2021-11-12 09:42:31 Test Item Value Reference Range Interpretation Comments NA (test code = 139 mmol/L 135-145 4087424924) K (test code = 4.0 mmol/L 3.5-5.0 9669054913) CL (test code = 111 mmol/L 98-108 H 0232890330) CO2 TOTAL (test code = 21 mmol/L 23-31 L 2366574552) AGAP (test code = 2-16 0691515750) BUN (test code = 16 mg/dL 7-23 4295448721) GLUCOSE (test code = 95 mg/dL 70-110 5648224784) CREATININE (test code = 0.70 mg/dL 0.50-1.04 4690345714) TOTAL BILI (test code = 0.8 mg/dL 0.1-1.3 3282275492) CALCIUM (test code = 8.7 mg/dL 8.6-10.6 2223418293) T PROTEIN (test code = 6.7 g/dL 6.3-8.2 2626731511) ALBUMIN (test code = 3.9 g/dL 3.5-5.0 9203922430) ALK PHOS (test code = 38 U/L 34-122 2565701925) ALTv (test code = 16 U/L 5-35 2-6) AST(SGOT) (test code = 35 U/L 13-40 8121164018) eGFR (test code = mL/min/1.73m2 0630704881) KAIT (test code = KAIT) Association of [...] tests). Lab Interpretation Abnormal (test code = 54346-0) [facility] WITH [id number] 09:28:04 Test Item Value Reference Range Interpretation [...] RDW-SD (test code = 47.8 fL 39.0-49.9 15488-7) RDW-CV (test code = 13.4 % 12.0-15.5 788-0) PLT (test code = See_Comment [Automated 777-3) message] The sy stem which generated this result transmitted reference range : 166 - 358 10*3/ ?L. The reference r chuck was not used to interpret this result as normal/abnormal . MPV (test code = 10.4 fL 9.5-12.9 65852-9) NRBC/100 WBC (test See_Comment [Automat ed code = 8691891973) message] The system which generated this result transmitted reference range : 0.0 - 10.0 /100 WBCs. The refer ence range was not u sed to interpret th is result as normal/abnormal . NRBC x10^3 (test code <0.01 See_Comment [Auto mated = 9558467967) message] The s ystem which generated this result transmitted reference range : 10*3/?L. The reference range was not used to interpret this result as normal/abnormal . GRAN MAT (NEUT) % 72.1 % (test code = 770-8) IMM GRAN % (test code 0.40 % = 8770703159) LYMPH % (test code = 20.7 % 736-9) MONO % (test code = 6.1 % 5905-5) EOS % (test code = 0.2 % 713-8) BASO % (test code = 0.5 % 706-2) GRAN MAT x10^3(ANC) 8.21 10*3/uL 1.88-7.09 H (test code = 1461770271) IMM GRAN x10^3 (test 0.04 10*3/uL 0.00-0.06 code = 9107636546) LYMPH x10^3 (test code 2.35 10*3/uL 1.32-3.29 = 731-0) MONO x10^3 (test code 0.69 10*3/uL 0.33-0.92 = 742-7) EOS x10^3 (test code = <0.03 0.03-0.39 L 711-2) BASO x10^3 (test code 0.06 10*3/uL 0.01-0.07 = 704-7) Lab Interpretation Abnormal (test code = 54694-6) [facility], [id number] 20:43:01 Test Item Value Reference Range Interpretation Comments VIT B12 (test code = 232 pg/mL 240-930 L 1996859464) KAIT (test code = KAIT) Biotin has been reported to cause a positive bias, interpret results relative to patient's use of biotin. Lab Interpretation (test Abnormal code = 93570-3) [facility] [id number] 17:44:36 Test Item Value Reference Range Interpretation Comments CRP (test code = 8174172820) 0.6 mg/dL <0.8 Lab Interpretation (test code = Normal 59834-9) [facility]AL[facility]2022-05-17 17:03:15 Test Item Value Reference Range Interpretation Comments Procalcitonin (test 0.02 ng/mL <0.07 code = 5266880526) KAIT (test code = KAIT) INTERPRETATION OF [...] lung abscess/empyema. For further information please refer to:[email or web address] Lab Interpretation Normal (test code = 59882-5) [facility], [id number] 16:33:21 Test Item Value Reference Range Interpretation Comments VIT D 25OH (test code = 34 ng/mL 25-80 75558-7) KAIT (test code = KAIT) Deficiency: <20 ng/mLInsufficiency : 20-24 ng/mLOptimal: 25-80 ng/mL Lab Interpretation (test Normal code = 58673-3) [facility] TylerSEDIMENTATION [id number] 12:48:11 Test Item Value Reference Range Interpretation Comments ESR (test code = See_Comment H [Automated message] 7220708312) The system Shoutlet generated this result transmitted ref erence range: 0 - 20 m m/HR. The reference r chuck was not used to interpret this result as normal/abnor mal. Lab Interpretation (test Abnormal code = 75972-6) [facility] [id number] 11:17:52 Test Item Value Reference Interpretation Comments Range TROPONIN I (test 0.038 ng/mL See_Comment H [Automated code = 3623796754) message] The system which generated this result [...] biotin. Lab Interpretation Abnormal (test code = 31286-6) [facility]MINAL [id number] 11:14:30 Test Item Value Reference Range Interpretation Comments NT-proBNP (test code 2560 pg/mL See_Comment H [Autom ated = 4183422038) message] The system which generated this result transmitted reference range : <=125. The reference range was not used to interpret this result as normal/abnormal . KAIT (test code = KAIT) Biotin has been reported to cause a negative bias, interpret results relative to patient's use of biotin. Lab Interpretation Abnormal (test code = 14016-6) [facility]2022-05-17 11:12:09 Test Item Value Reference Range Interpretation Comments MAGNESIUM (test code = 1348815186) 1.7 mg/dL 1.7-2.4 Lab Interpretation (test code = Normal 48407-7) [facility]OL[facility] (96133)2021-11-11 11:11:49 Test Item Value Reference Range Interpretation Comments NA (test code = 141 mmol/L 135-145 6952906385) K (test code = 3.4 mmol/L 3.5-5.0 L 5006667535) CL (test code = 110 mmol/L 98-108 H 4261116856) CO2 TOTAL (test code = 18 mmol/L 23-31 L 6508133819) AGAP (test code = 2-16 9045817985) BUN (test code = 11 mg/dL 7-23 0877582870) GLUCOSE (test code = 132 mg/dL 70-110 H 4582341783) CREATININE (test code = 0.69 mg/dL 0.50-1.04 1725280821) TOTAL BILI (test code = 0.5 mg/dL 0.1-1.0 9099561541) CALCIUM (test code = 8.8 mg/dL 8.6-10.6 5563748961) T PROTEIN (test code = 7.2 g/dL 6.3-8.2 3682725523) ALBUMIN (test code = 4.3 g/dL 3.5-5.0 9377564753) ALK PHOS (test code = 67 U/L 34-122 3490975807) ALTv (test code = 15 U/L 5-35 1742-6) AST(SGOT) (test code = 28 U/L 13-40 4505510742) eGFR (test code = mL/min/1.73m2 0083812655) KAIT (test code = KAIT) Association of [...] tests). Lab Interpretation Abnormal (test code = 04073-7) [facility]OSPH[facility]2022-05-17 11:11:49 Test Item Value Reference Range Interpretation Comments PHOSPHORUS (test code = 2166563265) 3.1 mg/dL 2.5-5.0 Lab Interpretation (test code = Normal 61463-8) [facility] TylerCREATINE [id number] 11:11:28 Test Item Value Reference Range Interpretation Comments CK (test code = 7316026281) 90 U/L 33-194 Lab Interpretation (test code = Normal 37441-6) [facility] WITH [id number] 10:46:26 Test Item Value Reference Range Interpretation Comments WBC (test code = See_Comment H [Automated 6690-2) message] The system which generated this result [...] RDW-SD (test code = 46.9 fL 39.0-49.9 55543-2) RDW-CV (test code = 13.1 % 12.0-15.5 788-0) PLT (test code = See_Comment [Automated 777-3) message] The system which generated this result transmit mirna reference range : 166 - 358 10*3/ ?L. The reference range was not u sed to interpret th is result as normal/abnormal . MPV (test code = 9.8 fL 9.5-12.9 85439-9) NRBC/100 WBC (test See_Comment [Automat ed code = 8477159156) message] The system which generated this result transmit mirna reference range : 0.0 - 10.0 /100 WBCs. The reference range was not used to interpret this result as normal/abnormal . NRBC x10^3 (test code <0.01 See_Comment [Auto mated = 3346470485) message] The system which generated this result transmit mirna reference range : 10*3/?L. The reference range was not used to interpret this result as normal/abnormal . GRAN MAT (NEUT) % 90.4 % (test code = 770-8) IMM GRAN % (test code 0.50 % = 9986201047) LYMPH % (test code = 7.5 % 736-9) MONO % (test code = 1.5 % 5905-5) EOS % (test code = 0.0 % 713-8) BASO % (test code = 0.1 % 706-2) GRAN MAT x10^3(ANC) 11.71 10*3/uL 1.88-7.09 H (test code = 8313323687) IMM GRAN x10^3 (test 0.06 10*3/uL 0.00-0.06 code = 0868176495) LYMPH x10^3 (test code 0.97 10*3/uL 1.32-3.29 L = 731-0) MONO x10^3 (test code 0.19 10*3/uL 0.33-0.92 L = 742-7) EOS x10^3 (test code = <0.03 0.03-0.39 L 711-2) BASO x10^3 (test code <0.03 0.01-0.07 = 704-7) Lab Interpretation Abnormal (test code = 96301-7) [facility] Tyler[facility]ERRITIN [id number] 05:52:39 Test Item Value Reference Range Interpretation Comments FERRITIN (test code = 17.4 ng/mL 11.0-264.0 2559776446) KAIT (test code = KAIT) Biotin has been reported to cause a negative bias, interpret results relative to patient's use of biotin. Lab Interpretation (test Normal code = 20187-4) [facility] Tyler[facility]YROID STIMULATING [id number] 05:48:37 Test Item Value Reference Range Interpretation Comments TSH (test code = See_Comment [Automated message] 2145646614) The system whic h generated this result transmitted ref erence range: 0.45 - 4 .70 mIU/L. The refe rence range was not u sed to interpret this result as normal/abnor mal. Lab Interpretation (test Normal code = 42674-7) [facility] TylerIRON [id number] 05:27:51 Test Item Value Reference Range Interpretation Comments IRON (test code = 1919929172) 73 ug/dL 50-160 TIBC (test code = 3002448821) 401 ug/dL 250-410 % FE SAT (test code = 4024677690) 18 % 20-50 L Lab Interpretation (test code = Abnormal 60615-7) [facility]2022-05-17 05:27:51 Test Item Value Reference Range Interpretation Comments MAGNESIUM (test code = 1107767335) 2.1 mg/dL 1.7-2.4 Lab Interpretation (test code = Normal 16083-0) [facility] TylerAMYLASE2022-05-17 05:27:51 Test Item Value Reference Range Interpretation Comments IRAM (test code = 1141428171) 53 U/L 35-110 Lab Interpretation (test code = Normal 88747-6) [facility]2022-05-17 05:27:51 Test Item Value Reference Range Interpretation Comments PHOSPHORUS (test code = 6328543683) 3.3 mg/dL 2.5-5.0 Lab Interpretation (test code = Normal 77541-9) [facility] TylerURIC [id number] 05:27:36 Test Item Value Reference Range Interpretation Comments URIC ACID (test code = 7118125870) 3.9 mg/dL 2.9-6.0 Lab Interpretation (test code = Normal 97153-8) [facility] TylerGLYCOSYLATED HEMOGLOBIN (A1C)2021-11-11 05:18:51 Test Item Value Reference Range Interpretation Comments HGB A1C (test code = 5.0 % 4.0-5.7 4548-4) KAIT (test code = KAIT) Reference RangesNormal: <5.7%Prediabetes: 5.7 - 6.4%Diabetes: > 6.5% Lab Interpretation (test Normal code = 65732-9) [facility] TylerLIPID PANEL (69183)(TOTAL CHOLESTEROL, TRIGLYCERIDES, HDL)2021-11-11 05:15:11 Test Item Value Reference Range Interpretation Comments CHOL (test code = 205 mg/dL 120-200 H 0997281593) HDL (test code = 49 mg/dL >50 L 2009537137) HDLC RATIO (test code = See_Comment [Au tomated message] 7149284255) The system Shoutlet generated this result transmit mirna reference range : <=4.5. The refe rence range was not u sed to interpret th is result as normal/abnormal . TRIG (test code = 122 mg/dL 30-170 4428229110) LDL CHOL (test code = 132 mg/dL See_Comment [Auto mated message] 19552-5) The system Shoutlet generated this result transmit mirna reference range : <=160. The refe rence range was not u sed to interpret th is result as normal/abnormal . VLDL (test code = 24 mg/dL 5-60 1242687257) Lab Interpretation (test Abnormal code = 90609-1) [facility] TylerTR[facility] [id number] 01:39:48 Test Item Value Reference Interpretation Comments Range TROPONIN I (test 0.006 ng/mL See_Comment [Automated code = 3640419986) message] The system which generated this result [...] biotin. Lab Interpretation Normal (test code = 34893-4) [facility] Tyler[facility]-TERMINAL [id number] 01:36:26 Test Item Value Reference Range Interpretation Comments NT-proBNP (test code 247 pg/mL See_Comment H [Autom ated = 5183248827) message] The system which generated this result transmitted reference range : <=125. The reference range was not used to interpret this result as normal/abnormal . KAIT (test code = KAIT) Biotin has been reported to cause a negative bias, interpret results relative to patient's use of biotin. Lab Interpretation Abnormal (test code = 37336-3) [facility] TylerPROTHROMBIN TIME / [id number] 00:37:00 Test Item Value Reference Range Interpretation Comments PROTIME PATIENT (test See_Comment [Auto mated message] code = 5964-2) The system ich generated this result transmitted ref erence range: 12.0 - 1 4.7 Seconds. The re ference range was not u sed to interpret this result as normal/abnor mal. INR (test code = 6301-6) Nor mal INR <1.1; Warfarin Therap eutic range 2.0 to 3. 0 or 2.5 to 3.5, dep ending upon the indica tions. Lab Interpretation (test Normal code = 00497-7) [facility] Tyler[facility]. METABOLIC PANEL (05580)2021-11-11 00:34:19 Test Item Value Reference Range Interpretation Comments NA (test code = 140 mmol/L 135-145 8406017729) K (test code = 3.8 mmol/L 3.5-5.0 0671427357) CL (test code = 109 mmol/L 98-108 H 6873010156) CO2 TOTAL (test code = 21 mmol/L 23-31 L 8348377001) AGAP (test code = 2-16 9734254941) BUN (test code = 15 mg/dL 7-23 1764106948) GLUCOSE (test code = 131 mg/dL 70-110 H 4879163499) CREATININE (test code = 0.77 mg/dL 0.50-1.04 6371660493) TOTAL BILI (test code = 0.5 mg/dL 0.1-1.1 1480313495) CALCIUM (test code = 9.1 mg/dL 8.6-10.6 8321085670) T PROTEIN (test code = 7.1 g/dL 6.3-8.2 2971329022) ALBUMIN (test code = 4.4 g/dL 3.5-5.0 5061377710) ALK PHOS (test code = 75 U/L 34-122 5383829728) ALTv (test code = 16 U/L 5-35 1742-6) AST(SGOT) (test code = 31 U/L 13-40 2344825787) eGFR (test code = mL/min/1.73m2 2163620965) KAIT (test code = KAIT) Association of [...] tests). Lab Interpretation Abnormal (test code = 55149-3) [facility] TylerLIPASE2022-[facility]-17 00:33:39 Test Item Value Reference Range Interpretation Comments LIPASE (test code = 6425717123) 43 U/L 0-220 Lab Interpretation (test code = Normal 58983-2) [facility] TylerCB WITH [id number] 00:29:00 Test Item Value Reference Range Interpretation Comments WBC (test code = See_Comment H [Automated 0090-2) message] The system which generated this result [...] RDW-SD (test code = 46.3 fL 39.0-49.9 02551-5) RDW-CV (test code = 13.0 % 12.0-15.5 788-0) PLT (test code = See_Comment [Automated 777-3) message] The system which generated this result transmit mirna reference range : 166 - 358 10*3/ ?L. The reference range was not u sed to interpret th is result as normal/abnormal . MPV (test code = 9.9 fL 9.5-12.9 04143-4) NRBC/100 WBC (test See_Comment [Automat ed code = 0268576610) message] The system which generated this result transmit mirna reference range : 0.0 - 10.0 /100 WBCs. The reference range was not used to interpret this result as normal/abnormal . NRBC x10^3 (test code <0.01 See_Comment [Auto mated = 5362991163) message] The system which generated this result transmit mirna reference range : 10*3/?L. The reference range was not used to interpret this result as normal/abnormal . GRAN MAT (NEUT) % 88.0 % (test code = 770-8) IMM GRAN % (test code 0.40 % = 3558585737) LYMPH % (test code = 8.1 % 736-9) MONO % (test code = 2.3 % 5905-5) EOS % (test code = 0.9 % 713-8) BASO % (test code = 0.3 % 706-2) GRAN MAT x10^3(ANC) 14.85 10*3/uL 1.88-7.09 H (test code = 5185407134) IMM GRAN x10^3 (test 0.06 10*3/uL 0.00-0.06 code = 3702817409) LYMPH x10^3 (test code 1.36 10*3/uL 1.32-3.29 = 731-0) MONO x10^3 (test code 0.38 10*3/uL 0.33-0.92 = 742-7) EOS x10^3 (test code = 0.15 10*3/uL 0.03-0.39 711-2) BASO x10^3 (test code 0.05 10*3/uL 0.01-0.07 = 704-7) Lab Interpretation Abnormal (test code = 30432-2) [facility] WW2019-01-24 06:19:00 Test Item Value Reference Range [...] 09D) 8.3 mg/dL 8.3-9.5 CBC (INCLUDES AUTOMATED DIFFERENTIAL)*[id number] 05:53:00 Test Item Value Reference Range Interpretation [...] 48A) 2.0 mg/dL 1.8-2.4 CBC (INCLUDES AUTOMATED DIFFERENTIAL)*[id number] 05:59:00 Test Item Value Reference Range Interpretation [...] code = NORMAL WRBCMOR) BASIC METABOLIC PANEL 2019-01-22 07:12:00 Test Item Value Reference Range Interpretation [...] A84) <0.015 ng/mL 0.000-0.045 CBC (INCLUDES AUTOMATED DIFFERENTIAL)*[id number] 06:06:00 Test Item Value Reference Range Interpretation [...] MORPH (test code = NORMAL WRBCMOR) MAGNESIUM WW2019-01-22 06:03:00 Test Item Value Reference Range Interpretation Comments MAGNESIUM (test code = 48A) 2.2 mg/dL 1.8-2.4 TROPONIN I *WW*2019-01-21 14:09:00 Test Item Value Reference Range Interpretation Comments TROPONIN I (test code = A84) <0.015 ng/mL 0.000-0.045 LACTIC ACID WW2019-01-21 06:18:00 Test Item Value Reference Range Interpretation [...] 09D) 8.7 mg/dL 8.3-9.5 CBC (INCLUDES AUTOMATED DIFFERENTIAL)*[id number] 06:00:00 Test Item Value Reference Range Interpretation [...] (test code = NORMAL WRBCMOR) URINALYSIS WITH [id number] 21:55:00 Test Item Value Reference Range Interpretation [...] code = USPERM) /HPF NONE DRUGS OF [id number] 21:55:00 Test Item Value Reference Range Interpretation [...] 2000 ng/mL CT ABDOMEN AND PELVIS WITH [id number] 21:03:20Exam: CT abdomen and pelvis with contrast.Location: [...] CONTRAST 2019-01-20 21:02:21Chest CT with contrast.Location Code: [id number] HISTORY: chest pain, vomitingCOMPARISON: NoneTechnique: Helical CT [...] patientsize, and/or utilization of iterative reconstruction technique.OCCULT [id number] 20:16:00 Test Item Value Reference Range Interpretation Comments Direct Exam (test code POSITIVE FOR OCCULT = DE1) BLOOD [id number] 20:03:00 Test Item Value Reference Range Interpretation Comments D-DIMER (test code = <200 ng/mL D-DU 0-234 DDI) D-DIMER COMMENT (test *Level to rule out code = DDCOM) DVT or PE: <235 ng/mL D-DU* PRO TIME AND [id number] 20:03:00 Test Item Value Reference Range Interpretation [...] or LMW Heparin. Order Code is ANTI-XA [id number] 20:02:00 Test Item Value Reference Range Interpretation Comments CPK (test code = 32A) 140 IU/L 26-192 COMPREHENSIVE METABOLIC [id number] 20:02:00 Test Item Value Reference Range Interpretation [...] code = 31A) 18 IU/L <=78 TROPONIN [id number] 19:55:00 Test Item Value Reference Range Interpretation Comments TROPONIN I (test code = A84) <0.015 ng/mL 0.000-0.045 XR CHEST 1 VIEW [id number] 19:40:49Exam: Chest portable erectLocation: H 12History: chest [...] code = MDIFF) NO NO COMPREHENSIVE METABOLIC [id number] 04:10:00 Test Item Value Reference Range Interpretation [...] (test code = RBCMOR) NORMAL BASIC METABOLIC [id number] 05:47:00 Test Item Value Reference Range Interpretation [...] code = 09D) 8.3 mg/dL 8.3-9.5 CARDIAC [id number] 02:45:00 Test Item Value Reference Range Interpretation Comments TROPONIN I (test code = A84) 0.059 ng/mL 0.000-0.045 H CARDIAC [id number] 18:36:00 Test Item Value Reference Range Interpretation Comments TROPONIN I (test code = A84) 0.059 ng/mL 0.000-0.[address] ABDOMEN AND PELVIS WITH [id number] 15:14:52EXAM: CT abdomen and pelvis with contrastLocation: [...] iterative reconstruction technique.DLP: 1534 mGy-cm CTDI 28 [id number] 13:05:00 Test Item Value Reference Range Interpretation Comments MAGNESIUM (test code = 48A) 1.9 mg/dL 1.8-2.4 CT HEAD W/O [id number] 12:54:16EXAM: CT head without contrastLocation: [id number]: NoneINDICATION: HeadacheTECHNIQUE: Axial images of the brain [...] technique.DLP: 854 mGy-cm CTDI 45 mGyDRUGS OF [id number] 12:54:00 Test Item Value Reference Range Interpretation [...] 200 ng/mL Opiates 2000 ng/mL URINALYSIS WITH [id number] 12:46:00 Test Item Value Reference Range Interpretation [...] (test code = USPERM) /HPF NONE URINE [id number] 12:39:00 Test Item Value Reference Range Interpretation Comments PREG UR (test code = PGU) NEGATIVE NEGATIVE COMPREHENSIVE METABOLIC [id number] 12:37:00 Test Item Value Reference Range Interpretation [...] = 31A) 17 IU/L <=78 AMYLASE AND [id number] 12:34:00 Test Item Value Reference Range Interpretation Comments AMYLASE (test code = 10A) 53 U/L 28-100 LIPASE (test code = 60A) 45 IU/L 73-393 L TROPONIN [id number] 12:33:00 Test Item Value Reference Range Interpretation Comments TROPONIN I (test code = A84) 0.087 ng/mL 0.000-0.045 H [id number] 12:26:00 Test Item Value Reference Range Interpretation [...] code = RBCMOR) NORMAL DIRECT STREP GROUP [id number] 07:45:00 Test Item Value Reference Range Interpretation Comments Culture Observations NO BETA HEMOLYTIC (test code = COB1) STREPTOCOCCUS ISOLATED Direct Exam (test code NO STREPTOCOCCUS GROUP = DE1) A ANTIGEN DETECTED THYROID PANEL/SCREEN (TSH)2018-07-01 05:50:00 Test Item Value Reference Range Interpretation Comments TSH (test code = A57) 0.453 uIU/mL 0.358-3.740 CARDIAC [id number] 05:16:00 Test Item Value Reference Range Interpretation Comments TROPONIN I (test code = A84) <0.015 ng/mL 0.000-0.045 BASIC METABOLIC [id number] 04:55:00 Test Item Value Reference Range Interpretation [...] MORPH (test code = RBCMOR) NORMAL CARDIAC [id number] 21:20:00 Test Item Value Reference Range Interpretation Comments TROPONIN I (test code = A84) <0.015 ng/mL 0.000-0.045 URINE [id number] 17:31:00 Test Item Value Reference Range Interpretation Comments PREG UR (test code = PGU) NEGATIVE NEGATIVE U/S [id number] 13:56:23EXAMINATION: U/S GALLBLADDER.LOCATION: D4.HISTORY: Right upper quadrant [...] 06/30/[address] ABDOMEN AND PELVIS WITH [id number] 12:09:32EXAMINATION: CT ABDOMEN AND PELVIS WITH CONTRAST.LOCATION: [...] consultation and colonoscopy.Bilateral nephrolithiasis.Atherosclerotic vascular calcifications.Arterial Blood [id number] 12:05:00 Test Item Value Reference Range Interpretation [...] FO2Hb (test code = 94.4 % 94.0-100.0 YG1UOVA) FCOHb (test code = 0.6 % 0.0-3.0 FCOHBRT) FMetHb (test code = 1.1 % 0.2-0.6 H FMETHBRT) ABGTEMP (test code = * Temp Corrected Values* ABGTEMP) ABGTEMP (test code = 37.0 ?C ABGTEMP.) pH (T) (test code = 7.498 7.350-7.450 H PHTEMP) pCO2 (T) (test code = 31.4 mmHg 35.0-45.0 L JBC7CFOR) pO2 (T) (test code = 81.7 mmHg 80.0-110.0 BB0PPMF) Device (test code = ROOM AIR DEVICE) [...] COMMENT (test code = CO) URINALYSIS WITH [id number] 11:20:00 Test Item Value Reference Range Interpretation [...] code = USPERM) /HPF NONE BRAIN NATRIURETIC [id number] 10:57:00 Test Item Value Reference Range Interpretation Comments proBNP (test code = PBNP) 436 pg/mL 0-125 H COMPREHENSIVE METABOLIC [id number] 10:56:00 Test Item Value Reference Range Interpretation [...] (test code = 31A) 19 IU/L <=78 [id number] 10:51:00 Test Item Value Reference Range Interpretation Comments CPK (test code = 32A) 129 IU/L 26-192 AMYLASE AND [id number] 10:51:00 Test Item Value Reference Range Interpretation Comments AMYLASE (test code = 10A) 23 U/L 28-100 L LIPASE (test code = 60A) 51 IU/L 73-393 L TROPONIN [id number] 10:50:00 Test Item Value Reference Range Interpretation Comments TROPONIN I (test code = A84) <0.015 ng/mL 0.000-0.045 PRO TIME AND [id number] 10:47:00 Test Item Value Reference Range Interpretation [...] or LMW Heparin. Order Code is ANTI-XA [id number] 10:47:00 Test Item Value Reference Range Interpretation Comments D-DIMER (test code = 209 ng/mL D-DU 0-234 DDI) D-DIMER COMMENT (test *Level to rule out code = DDCOM) DVT or PE: <235 ng/mL D-DU* DIRECT INFLUENZA A AND B [id number] 10:45:00 Test Item Value Reference Range Interpretation Comments Direct Exam (test PRESUMPTIVE NEGATIVE FOR code = DE1) THE PRESENCE OF INFLUENZA ANTIGEN XR CHEST 2 [id number] 10:41:59Exam: Chest x-ray 2 viewsHISTORY: Persistent coughLocation: [id number]:The heart size is normal and lung holcomb [...] RBC MORPH (test code = RBCMOR) NORMAL [id number] 14:47:00 Test Item Value Reference Range Interpretation [...] NEGATIVE NEGATIVE XR FOOT RIGHT COMPLETE 3 [id number] 14:27:27Right foot, 3 viewsLocation Code: H1IKAVTRII HISTORY: [id number]: PainCOMMENTS: AP, lateral, and oblique views of the right foot demonstrate noacute fracture or malalignment. Dorsal soft tissue swelling noted.IMPRESSION: No acute osseous radiographic abnormality. Dorsal soft tissueswelling.CT ABDOMEN AND PELVIS WITH [id number] 13:38:45CT abdomen and pelvis with contrastLocation Code: [id number] HISTORY: Abdominal painCOMPARISON: 02/10/2018Technique: Helical CT of [...] fluid collection or free air.CT HEAD W/O [id number] 13:19:29CT brain without contrast.Location code: I7VEPEVJZB HISTORY: R51: HEADACHE COMPARISON: None.TECHNIQUE: Routine unenhanced [...] aerated. IMPRESSION: No acute intracranial abnormality.AMYLASE AND [id number] 13:05:00 Test Item Value Reference Range Interpretation Comments AMYLASE (test code = 10A) 36 U/L 28-100 LIPASE (test code = 60A) 67 IU/L 73-393 L COMPREHENSIVE METABOLIC [id number] 13:05:00 Test Item Value Reference Range Interpretation [...] (test code = 31A) 14 IU/L <=78 [id number] 13:05:00 Test Item Value Reference Range Interpretation Comments MAGNESIUM (test code = 48A) 2.1 mg/dL 1.8-2.4 SERUM [id number] 12:53:00 Test Item Value Reference Range Interpretation Comments PREG SRM (test code = PGS) NEGATIVE NEGATIVE URINALYSIS WITH [id number] 12:45:00 Test Item Value Reference Range Interpretation [...] = USPERM) /HPF NONE PRO TIME AND [id number] 12:43:00 Test Item Value Reference Range Interpretation [...] MORPH (test code = RBCMOR) NORMAL BLOOD [id number] 07:45:00 Test Item Value Reference Range Interpretation Comments Culture Observations (test NO GROWTH AFTER 5 code = COB1) DAYS URINE [id number] 07:24:00 Test Item Value Reference Range Interpretation [...] RBC MORPH (test code = RBCMOR) NORMAL [id number] 06:25:00 Test Item Value Reference Range Interpretation Comments MAGNESIUM (test code = 48A) 1.5 mg/dL 1.8-2.4 L BASIC METABOLIC [id number] 06:16:00 Test Item Value Reference Range Interpretation [...] 8.3-9.5 L NM HIDA SCAN W/ EJECTION [id number] 18:10:25HIDA scanLocation code: R9Ssahezbw history: Right upper quadrant painComments: Following the [...] minutes.Impression:1. No evidence of acute cholecystitis.BASIC METABOLIC [id number] 04:35:00 Test Item Value Reference Range Interpretation [...] MORPH (test code = RBCMOR) NORMAL LACTIC [id number] 17:33:00 Test Item Value Reference Range Interpretation Comments LACTIC ACD (test code = LA) 1.8 mmol/L 0.4-2.0 U/S [id number] 15:35:17LOCATION: [id number]: 47-year-old female with nausea and vomiting.COMMENT:Sonographic imaging [...] appearance of the abdomen is unremarkable.BASIC METABOLIC [id number] 07:27:00 Test Item Value Reference Range Interpretation [...] (test code = RBCMOR) NORMAL URINALYSIS WITH [id number] 23:20:00 Test Item Value Reference Range Interpretation [...] USPERM) /HPF NONE XR CHEST 1 VIEW [id number] 16:08:04HISTORY: DyspneaLocation code: Y2Yucsfzupfr 10 February 2018FINDINGS: Frontal view of the chest demonstrates normal cardiomediastinalsilhouette. The trachea is midline. Minimal bibasilar atelectasis. Thelungsare otherwise clear. There is no effusion or pneumothorax. The bones areintact.IMPRESSION: Minimal bibasilar atelectasis.CLOSTRIDIUM DIFFICILE [id number] 11:11:00 Test Item Value Reference Range Interpretation Comments Direct Exam (test NO CLOSTRIDIUM DIFFICILE code = DE1) TOXIN A/B DETECTED CBC WITH MANUAL [id number] 07:39:00 Test Item Value Reference Range Interpretation [...] lts code = PLTMOR) um) BASIC METABOLIC [id number] 06:01:00 Test Item Value Reference Range Interpretation [...] 09D) 8.8 mg/dL 8.3-9.5 CBC WITH MANUAL [id number] 07:18:00 Test Item Value Reference Range Interpretation [...] = 1+ NONE A MICRO) BASIC METABOLIC [id number] 05:48:00 Test Item Value Reference Range Interpretation [...] 09D) 8.8 mg/dL 8.3-9.5 MRI BRAIN W/O [id number] 18:15:41LOCATION: A1EXAM: MRI BRAIN W/O CONTRASTINDICATION: R51: [...] acute stroke. No acute abnormality.XR CENTRAL LINE [id number] 16:06:23EXAMINATION: NON- TUNNELED CENTRAL VENOUS CATHETER PLACEMENT.LOCATION: D4.HISTORY: The her central venous accessSEDATION: The patient did not require conscious sedation for the procedure.ANTIBIOTICS: None. Not indicated.TECHNIQUE: The risks, benefits, and alternatives were discussed and informedconsentwas obtained. Prior to beginning the procedure, Avery Protocol wasused to confirm the patient's identity [...] at the bedside according to standard hospitalprotocol.U/S [id number] 16:06:23EXAMINATION: NON-TUNNELED CENTRAL VENOUS CATHETER PLACEMENT.LOCATION: D4.HISTORY: The her central venous accessSEDATION: The patient did not require conscious sedation for the procedure.ANTIBIOTICS: None. Not indicated.TECHNIQUE: The risks, benefits, and alternatives were discussed and informedconsentwas obtained. Prior to beginning the procedure, Avery Protocol wasused to confirm the patient's identity [...] hospitalprotocol.CT ABDOMEN AND PELVIS WITH AND WITHOUT [id number] 15:59:28 Exam: CT abdomen and pelvis with and without contrast.Location: D4.History: [id number]: Abdominal [id number]: VomitingTechnique: Unenhanced and enhanced spiral slices were [...] enteritis.3. Nephrolithiasis.4. Small, fixed hiatalhernia.XR CHEST 1 [id number] 08:54:41Portable AP chest, 1 viewLocation Code: [id number] HISTORY: Chest painCOMPARISON: NoneCOMMENT: There is mild prominence of the central pulmonary vasculature and interstitium.Mild atelectasis is presentwithin the lung bases. There is no lobarconsolidation or effusion. IMPRESSION: Mild central congestive changes and bibasilar atelectasis. XR ABDOMEN 1 VIEW [id number] 08:54:16Abdomen, 1 viewLocation Code: X1Hpdowiuo history: Lower abdominal painComments: The bowel gas pattern is unremarkable. There is no visualizedabnormal calcification. The visualized osseous structures are intact.Impression: No acute radiographic abnormality. GLUCOMETER GLUCOSE- LAB USE [id number] 07:50:00 Test Item Value Reference Range Interpretation Comments GLUCOMETER (test code 157 mg/dL 70-100 H CLEANE D METERMeter ID: = GMG) [id number] tor: 9410 СВЕТЛАНА MONTANO ES CBC WITH MANUAL [id number] 06:57:00 Test Item Value Reference Range Interpretation [...] code = 1+ NONE A MACRO) TROPONIN [id number] 05:58:00 Test Item Value Reference Range Interpretation Comments TROPONIN I (test code = A84) <0.015 ng/mL 0.000-0.045 COMPREHENSIVE METABOLIC [id number] 05:44:00 Test Item Value Reference Range Interpretation [...] 13 IU/L <=78 GLUCOMETER GLUCOSE- LAB USE [id number] 01:52:00 Test Item Value Reference Range Interpretation Comments GLUCOMETER (test code = 110 mg/dL 70-100 H Mete r ID: GMG) [id number] tor: [address] Y TROPONIN [id number] 00:02:00 Test Item Value Reference Range Interpretation Comments TROPONIN I (test code = A84) <0.015 ng/mL 0.000-0.045 CARDIAC [id number] 20:58:00 Test Item Value Reference Range Interpretation Comments Troponin-I (test code no gt See_Comment [Auto mated message] The = Troponin-I) system which g enerated this result transmit mirna reference range : <=0.40. The reference r chuck was not used to interpr et this result as zahra l/abnormal. [facility] [id number] 20:58:00 Test Item Value Reference Range Interpretation Comments CK MB (test code = CK MB) no gt 0.5-3.6 [facility]annC[facility] [id number] 20:58:00 Test Item Value Reference Range Interpretation Comments Total CK (test code = Total CK) 32 12-191 [facility]annC[facility] [id number] 20:58:00 Test Item Value Reference Range Interpretation Comments CK MB Index (test no gt See_Comment [Automate d message] The code = CK MB Index) system w [facility] generated this result transmit mirna reference range : <=2.5. The reference range was not used to interpr et this result as zahra l/abnormal. [facility] HospitalSantech [id number] 20:58:00 Test Item Value Reference Range Interpretation Comments Magnesium Lvl (test code = Magnesium 1.7 1.8-2.4 Lvl) [facility] HospitalAltatechNOVANT [facility] [id number] 20:58:00 Test Item Value Reference Range Interpretation Comments eGFR (test code = eGFR) 73 [facility]2018-08-15 20:58:00 Test Item Value Reference Range Interpretation Comments AGAP (test code = AGAP) 14.6 10.0-20.0 [facility]2018-08-15 20:58:00 Test Item Value Reference Range Interpretation Comments Bili Total (test code = Bili Total) 0.5 0.2-1.3 [facility]2018-08-15 20:58:00 Test Item Value Reference Range Interpretation Comments B/C Ratio (test code = B/C Ratio) 40 1 6-25 [facility]2018-08-15 20:58:00 Test Item Value Reference Range Interpretation Comments Globulin (test code = Globulin) 4.8 2.7-4.2 [facility]2018-08-15 20:58:00 Test Item Value Reference Range Interpretation Comments A/G Ratio (test code = A/G Ratio) 0.5 1 0.7-1.6 [facility]2018-08-15 20:58:00 Test Item Value Reference Range Interpretation Comments AST (test code = AST) 7 See_Comment [Auto mated message] The system which ge nerated this result transmit mirna reference range : <=37. The reference range was not used to interpr et this result as zahra l/abnormal. [facility] [id number] 20:58:00 Test Item Value Reference Range Interpretation Comments Alk Phos (test code = Alk Phos) 79 39-136 [facility]2018-08-15 20:58:00 Test Item Value Reference Range Interpretation Comments Calcium Lvl (test code = Calcium Lvl) 8.8 8.5-10.5 [facility]2018-08-15 20:58:00 Test Item Value Reference Range Interpretation Comments Total Protein (test code = Total 7.3 6.4-8.4 Protein) [facility]2018-08-15 20:58:00 Test Item Value Reference Range Interpretation Comments Albumin Lvl (test code = Albumin Lvl) 2.5 3.5-5.0 [facility]2018-08-15 20:58:00 Test Item Value Reference Range Interpretation Comments ALT (test code = ALT) 13 See_Comment [Auto mated message] The system which ge nerated this result transmit mirna reference range : <=65. The reference range was not used to interpr et this result as zahra l/abnormal. [facility]2018-08-15 20:58:00 Test Item Value Reference Range Interpretation Comments Potassium Lvl (test code = Potassium 3.6 3.5-5.1 Lvl) [facility]2018-08-15 20:58:00 Test Item Value Reference Range Interpretation Comments Chloride Lvl (test code = Chloride Lvl) 113 95-109 [facility]2018-08-15 20:58:00 Test Item Value Reference Range Interpretation Comments CO2 (test code = CO2) 14 24-32 [facility]2018-08-15 20:58:00 Test Item Value Reference Range Interpretation Comments Glucose Lvl (test code = Glucose Lvl) 87 70-99 [facility]2018-08-15 20:58:00 Test Item Value Reference Range Interpretation Comments Sodium Lvl (test code = Sodium Lvl) 138 135-145 [facility]2018-08-15 20:58:00 Test Item Value Reference Range Interpretation Comments BUN (test code = BUN) 37 7-22 [facility]2018-08-15 20:58:00 Test Item Value Reference Range Interpretation Comments Creatinine Lvl (test code = Creatinine 0.93 0.50-1.40 Lvl) [facility]2018-08-15 20:58:00 Test Item Value Reference Range Interpretation Comments Lipase Lvl (test code = Lipase Lvl) 809 04-219 [facility]FgvxbhuJXYXKWAYRIBUL6128-11-10 20:58:00 Test Item Value Reference Range Interpretation Comments S Preg (test code = S Negative *NA*(02/09/18 Preg) 3:58 PM) [facility]QwyhluhPWQMIYTIOS6419-98-52 20:58:00 Test Item Value Reference Range Interpretation Comments MCHC (test code = MCHC) 33.8 32.0-36.0 [facility] HospitalQtlxktlMYAZDJRDLR5159-95-26 20:58:00 Test Item Value Reference Range Interpretation Comments RDW (test code = RDW) 14.3 11.5-14.5 [facility] HospitalRatkdtfOAMXKLZUGX5631-66-48 20:58:00 Test Item Value Reference Range Interpretation Comments MCH (test code = MCH) 32.1 pg 27.0-31.0 [facility] HospitalCooadgaOQBBOEEAHV2256-81-10 20:58:00 Test Item Value Reference Range Interpretation Comments Hct (test code = Hct) 33.1 36.0-48.0 [facility] HospitalEnkinfgZLQVMCOQBJ8046-04-02 20:58:00 Test Item Value Reference Range Interpretation Comments WBC (test code = WBC) 15.9 3.7-10.4 [facility] HospitalHxvgsagBDEVLVTQMJ5625-49-44 20:58:00 Test Item Value Reference Range Interpretation Comments Hgb (test code = Hgb) 11.2 12.0-16.0 [facility] HospitalScmwbqbMXTAGBBARM4325-50-28 20:58:00 Test Item Value Reference Range Interpretation Comments MCV (test code = MCV) 94.8 80.0-98.0 [facility] HospitalMwqaflyUBICQRRVNN5754-11-45 20:58:00 Test Item Value Reference Range Interpretation Comments RBC (test code = RBC) 3.49 4.20-5.40 [facility] HospitalHelsdeiFZHCGOPZDC8017-03-91 20:58:00 Test Item Value Reference Range Interpretation Comments MPV (test code = MPV) 7.7 7.4-10.4 [facility] HospitalBfnppenXNGJILFPLC0854-25-72 20:58:00 Test Item Value Reference Range Interpretation Comments Platelet (test code = Platelet) 226 133-450 [facility] HospitalFutxrpbCSTFCHFUZD1544-18-18 20:58:00 Test Item Value Reference Range Interpretation Comments Monocytes # (test code 0.3 See_Comment [Aut omated message] The = Monocytes #) system which generated this result tra nsmitted reference range : <=0.8. The reference r chuck was not used to int erpret this result as normal/abnormal . [facility] HospitalDxlsritQBNRNTGIOF1650-52-07 20:58:00 Test Item Value Reference Range Interpretation Comments Neutrophils # (test code = Neutrophils 13.2 1.5-8.1 #) [facility] HospitalZdlwmfdZFMGFEKMMT2310-62-27 20:58:00 Test Item Value Reference Range Interpretation Comments Lymphocytes # (test code = Lymphocytes 2.4 1.0-5.5 #) [facility] HospitalIlpukbgIYFQCGJCVD8518-14-13 20:58:00 Test Item Value Reference Range Interpretation Comments Hypochrom (test code = 1+ (02/09/18 3:58 PM) Hypochrom) [facility] HospitalKrssgvcNFVGSDOVMJ7335-00-05 20:58:00 Test Item Value Reference Range Interpretation Comments RBC Morph (test code = Normal (02/09/18 3:58 RBC Morph) PM) [facility] HospitalAniweezVPPZAQGRNT5434-00-93 20:58:00 Test Item Value Reference Range Interpretation Comments Tot Cell Ct (test code = Tot Cell Ct) 100 1 [facility] HospitalWpowqiaHJUICNWLJW0627-98-03 20:58:00 Test Item Value Reference Range Interpretation Comments Monocytes (test code = Monocytes) 2.0 2.0-12.0 [facility] HospitalFilcguqPYNREKEKIO9225-46-34 20:58:00 Test Item Value Reference Range Interpretation Comments Bands (test code = 1.0 See_Comment [Automat ed message] The Bands) system which ge nerated this result transmit mirna reference range : <=11.0. The reference r chuck was not used to interpr et this result as zahra l/abnormal. [facility] HospitalWwxwyojBOYTQCESUV3503-87-70 20:58:00 Test Item Value Reference Range Interpretation Comments Segs (test code = Segs) 82.0 45.0-75.0 [facility] HospitalKfvdwgnQNZWRZURXW4441-83-82 20:58:00 Test Item Value Reference Range Interpretation Comments Lymphocytes (test code = Lymphocytes) 15.0 20.0-40.0 [facility] HospitalXfjhpwmGGNJBFCLYG7802-79-26 20:58:00 Test Item Value Reference Range Interpretation Comments Plt Morph (test code = Normal (02/09/18 3:58 Plt Morph) PM) [facility]annCARDIAC ESIFKJT3318-83-65 20:58:00 Test Item Value Reference Range Interpretation Comments Troponin-I (test code no gt See_Comment [Auto mated message] The = Troponin-I) system which g enerated this result transmit mirna reference range : <=0.40. The reference r chuck was not used to interpr et this result as zahra l/abnormal. [facility]annPropelDIAC JFACJBE9417-45-36 20:58:00 Test Item Value Reference Range Interpretation Comments CK MB (test code = CK MB) no gt 0.5-3.6 [facility]annPropelDIAC IRHQEIG7495-74-30 20:58:00 Test Item Value Reference Range Interpretation Comments Total CK (test code = Total CK) 32 12-191 [facility]annMitralignAC WCNTNBT8433-39-29 20:58:00 Test Item Value Reference Range Interpretation Comments CK MB Index (test no gt See_Comment [Automate d message] The code = CK MB Index) system w [facility] generated this result transmit mirna reference range : <=2.5. The reference range was not used to interpr et this result as zahra l/abnormal. [employer] GBBPY8596-69-59 20:58:00 Test Item Value Reference Range Interpretation Comments Magnesium Lvl (test code = Magnesium 1.7 1.8-2.4 Lvl) [facility] OVGCZ7786-79-93 20:58:00 Test Item Value Reference Range Interpretation Comments eGFR (test code = eGFR) 73 [facility] MFUBE2875-67-25 20:58:00 Test Item Value Reference Range Interpretation Comments AGAP (test code = AGAP) 14.6 10.0-20.0 [facility] FWWNQ1302-62-31 20:58:00 Test Item Value Reference Range Interpretation Comments Bili Total (test code = Bili Total) 0.5 0.2-1.3 [facility] [id number] 20:58:00 Test Item Value Reference Range Interpretation Comments B/C Ratio (test code = B/C Ratio) 40 1 6-25 [facility] [employer] [id number] 20:58:00 Test Item Value Reference Range Interpretation Comments Globulin (test code = Globulin) 4.8 2.7-4.2 [facility]2018-08-15 20:58:00 Test Item Value Reference Range Interpretation Comments A/G Ratio (test code = A/G Ratio) 0.5 1 0.7-1.6 [facility]2018-08-15 20:58:00 Test Item Value Reference Range Interpretation Comments AST (test code = AST) 7 See_Comment [Auto mated message] The system which ge nerated this result transmit mirna reference range : <=37. The reference range was not used to interpr et this result as zahra l/abnormal. [facility]2018-08-15 20:58:00 Test Item Value Reference Range Interpretation Comments Alk Phos (test code = Alk Phos) 79 39-136 [facility]2018-08-15 20:58:00 Test Item Value Reference Range Interpretation Comments Calcium Lvl (test code = Calcium Lvl) 8.8 8.5-10.5 [facility]2018-08-15 20:58:00 Test Item Value Reference Range Interpretation Comments Total Protein (test code = Total 7.3 6.4-8.4 Protein) [facility]2018-08-15 20:58:00 Test Item Value Reference Range Interpretation Comments Albumin Lvl (test code = Albumin Lvl) 2.5 3.5-5.0 [facility]2018-08-15 20:58:00 Test Item Value Reference Range Interpretation Comments ALT (test code = ALT) 13 See_Comment [Auto mated message] The system which ge nerated this result transmit mirna reference range : <=65. The reference range was not used to interpr et this result as zahra l/abnormal. [facility] [id number] 20:58:00 Test Item Value Reference Range Interpretation Comments Potassium Lvl (test code = Potassium 3.6 3.5-5.1 Lvl) [facility]2018-08-15 20:58:00 Test Item Value Reference Range Interpretation Comments Chloride Lvl (test code = Chloride Lvl) 113 95-109 [facility]2018-08-15 20:58:00 Test Item Value Reference Range Interpretation Comments CO2 (test code = CO2) 14 24-32 [facility]2018-08-15 20:58:00 Test Item Value Reference Range Interpretation Comments Glucose Lvl (test code = Glucose Lvl) 87 70-99 [facility]2018-08-15 20:58:00 Test Item Value Reference Range Interpretation Comments Sodium Lvl (test code = Sodium Lvl) 138 135-145 [facility]2018-08-15 20:58:00 Test Item Value Reference Range Interpretation Comments BUN (test code = BUN) 37 7-22 [facility]2018-08-15 20:58:00 Test Item Value Reference Range Interpretation Comments Creatinine Lvl (test code = Creatinine 0.93 0.50-1.40 Lvl) [facility]2018-08-15 20:58:00 Test Item Value Reference Range Interpretation Comments Lipase Lvl (test code = Lipase Lvl) 735 59-393 [place] [id number] 20:58:00 Test Item Value Reference Range Interpretation Comments S Preg (test code = S Negative *NA*(02/09/18 Preg) 3:58 PM) [facility]glzdtiGVVHNQBNIZ0409-11-56 20:58:00 Test Item Value Reference Range Interpretation Comments MCHC (test code = MCHC) 33.8 32.0-36.0 [facility] HospitalFunhrvnGBFBCLYRMK7637-96-55 20:58:00 Test Item Value Reference Range Interpretation Comments RDW (test code = RDW) 14.3 11.5-14.5 [facility] HospitalQglfgtmVNAGJIYQES2947-98-32 20:58:00 Test Item Value Reference Range Interpretation Comments MCH (test code = MCH) 32.1 pg 27.0-31.0 [facility] HospitalFgwybxlWGXYTQUVTW4144-75-56 20:58:00 Test Item Value Reference Range Interpretation Comments Hct (test code = Hct) 33.1 36.0-48.0 [facility] HospitalJchngrdLNBKGRUODQ0789-69-58 20:58:00 Test Item Value Reference Range Interpretation Comments WBC (test code = WBC) 15.9 3.7-10.4 [facility] HospitalLbwdyryNWXHOTEBDR0468-21-29 20:58:00 Test Item Value Reference Range Interpretation Comments Hgb (test code = Hgb) 11.2 12.0-16.0 [facility] HospitalWipcpdvEJTWEQSWLI5650-13-02 20:58:00 Test Item Value Reference Range Interpretation Comments MCV (test code = MCV) 94.8 80.0-98.0 [facility] HospitalDvrkyrgBCHTJTZKIU4840-00-88 20:58:00 Test Item Value Reference Range Interpretation Comments RBC (test code = RBC) 3.49 4.20-5.40 [facility] HospitalMaaaoexOHBHNCXYYM2454-00-49 20:58:00 Test Item Value Reference Range Interpretation Comments MPV (test code = MPV) 7.7 7.4-10.4 [facility] HospitalPeigaulEFVHMFVZZQ7919-50-11 20:58:00 Test Item Value Reference Range Interpretation Comments Platelet (test code = Platelet) 226 133-450 [facility] HospitalRovmtafFLIJWDXMAG6915-82-84 20:58:00 Test Item Value Reference Range Interpretation Comments Monocytes # (test code 0.3 See_Comment [Aut omated message] The = Monocytes #) system which generated this result tra nsmitted reference range : <=0.8. The reference r chuck was not used to int erpret this result as normal/abnormal . [facility] HospitalTwoklqgUNZMQSRQVC5877-46-84 20:58:00 Test Item Value Reference Range Interpretation Comments Neutrophils # (test code = Neutrophils 13.2 1.5-8.1 #) [facility] HospitalMmgptzxWSCPXWXJUB3159-13-27 20:58:00 Test Item Value Reference Range Interpretation Comments Lymphocytes # (test code = Lymphocytes 2.4 1.0-5.5 #) [facility] HospitalYanixwcHGLMQASDNW8126-63-02 20:58:00 Test Item Value Reference Range Interpretation Comments Hypochrom (test code = 1+ (02/09/18 3:58 PM) Hypochrom) [facility] HospitalVrwphfgCSMVUVGFYX1609-43-54 20:58:00 Test Item Value Reference Range Interpretation Comments RBC Morph (test code = Normal (02/09/18 3:58 RBC Morph) PM) [facility] HospitalArxluyyXWJQRTRHRJ4045-37-42 20:58:00 Test Item Value Reference Range Interpretation Comments Tot Cell Ct (test code = Tot Cell Ct) 100 1 [facility] HospitalS[id number] 20:58:00 Test Item Value Reference Range Interpretation Comments Monocytes (test code = Monocytes) 2.0 2.0-12.0 [facility] HospitalJrzrpsqIJIDLBZZGH1715-48-38 20:58:00 Test Item Value Reference Range Interpretation Comments Bands (test code = 1.0 See_Comment [Automat ed message] The Bands) system which ge nerated this result transmit mirna reference range : <=11.0. The reference r chuck was not used to interpr et this result as zahra l/abnormal. [facility] HospitalWblsgguTFZTSVCQUU6701-02-91 20:58:00 Test Item Value Reference Range Interpretation Comments Segs (test code = Segs) 82.0 45.0-75.0 [facility] HospitalJmmkhafSDPLVOHBJI0105-52-47 20:58:00 Test Item Value Reference Range Interpretation Comments Lymphocytes (test code = Lymphocytes) 15.0 20.0-40.0 [facility] HospitalByqqhajEACDOGRNOZ2529-88-15 20:58:00 Test Item Value Reference Range Interpretation Comments Plt Morph (test code = Normal (02/09/18 3:58 Plt Morph) PM) [facility]:SUSC:PT:ISOLATE:ORDQN:[id number] 20:38:00 Test Item Value Reference Range Interpretation Comments Culture: Urine (test >100,000 CFU/mL code = Culture: Escherichia coli <10,000 Urine) CFU/mL Skin [facility]:SUSC:PT:ISOLATE:ORDQN:[id number] 20:38:00 Test Item Value Reference Range Interpretation Comments Escherichia coli (test code Escherichia coli = Escherichia coli) [facility] AND [id number] 20:38:00 Test Item Value Reference Range Interpretation Comments UA Urobilinogen (test code = UA <=1.0 mg/dL 0.1-1.0 Urobilinogen) [facility] AND [id number] 20:38:00 Test Item Value Reference Range Interpretation Comments UA Bacteria (test code = UA Occasional /HPF Bacteria) [facility] AND [id number] 20:38:00 Test Item Value Reference Range Interpretation Comments UA Leuk Est (test code Large *ABN*(02/09/18 = UA Leuk Est) 3:38 PM) [facility] AND [id number] 20:38:00 Test Item Value Reference Range Interpretation Comments UA Sq Epi (test code = UA Sq Epi) Many /LPF [facility] AND [id number] 20:38:00 Test Item Value Reference Range Interpretation Comments UA Nitrite (test code Negative (02/09/18 3:38 = UA Nitrite) PM) [facility] AND [id number] 20:38:00 Test Item Value Reference Range Interpretation Comments UA RBC (test code = 5 See_Comment [Automa mirna message] The UA RBC) system which ge nerated this result transmit mirna reference range : <=2. The reference range was not used to interpr et this result as zahra l/abnormal. [facility] AND [id number] 20:38:00 Test Item Value Reference Range Interpretation Comments UA WBC (test code = 13 See_Comment [Automa mirna message] The UA WBC) system which ge nerated this result transmit mirna reference range : <=5. The reference range was not used to interpr et this result as zahra l/abnormal. [facility] AND [id number] 20:38:00 Test Item Value Reference Range Interpretation Comments UA Glucose (test code = UA Negative mg/dL Glucose) [facility] AND [id number] 20:38:00 Test Item Value Reference Range Interpretation Comments UA Spec Grav (test code = UA Spec 1.015 1 Grav) [facility] AND [id number] 20:38:00 Test Item Value Reference Range Interpretation Comments UA Protein (test code = UA Protein) 30 mg/dL [facility] AND [id number] 20:38:00 Test Item Value Reference Range Interpretation Comments UA pH (test code = UA pH) 5.0 1 5.0-8.0 [facility] AND [id number] 20:38:00 Test Item Value Reference Range Interpretation Comments UA Bili (test code = Negative *NA*(02/09/18 UA Bili) 3:38 PM) [facility] AND [id number] 20:38:00 Test Item Value Reference Range Interpretation Comments UA Ketones (test code = UA Trace mg/dL Ketones) [facility] AND [id number] 20:38:00 Test Item Value Reference Range Interpretation Comments UA Blood (test code = Small *ABN*(02/09/18 UA Blood) 3:38 PM) [facility] AND [id number] 20:38:00 Test Item Value Reference Range Interpretation Comments UA Color (test code = Yellow *NA*(02/09/18 UA Color) 3:38 PM) [facility] AND [id number] 20:38:00 Test Item Value Reference Range Interpretation Comments UA Turbidity (test code Slight *ABN*(02/09/18 = UA Turbidity) 3:38 PM) [facility]:ORDQN:[id number] 20:38:00 Test Item Value Reference Range Interpretation Comments Culture: Urine (test >100,000 CFU/mL code = Culture: Escherichia coli <10,000 Urine) CFU/mL Skin [facility]:SUSC:PT:ISOLATE:ORDQN:[id number] 20:38:00 Test Item Value Reference Range Interpretation Comments Escherichia coli (test code Escherichia coli = Escherichia coli) [facility] AND [id number] 20:38:00 Test Item Value Reference Range Interpretation Comments UA Urobilinogen (test code = UA <=1.0 mg/dL 0.1-1.0 Urobilinogen) [facility] AND [id number] 20:38:00 Test Item Value Reference Range Interpretation Comments UA Bacteria (test code = UA Occasional /HPF Bacteria) [facility] AND [id number] 20:38:00 Test Item Value Reference Range Interpretation Comments UA Leuk Est (test code Large *ABN*(02/09/18 = UA Leuk Est) 3:38 PM) [facility] AND [id number] 20:38:00 Test Item Value Reference Range Interpretation Comments UA Sq Epi (test code = UA Sq Epi) Many /LPF [facility] AND [id number] 20:38:00 Test Item Value Reference Range Interpretation Comments UA Nitrite (test code Negative (02/09/18 3:38 = UA Nitrite) PM) [facility] AND [id number] 20:38:00 Test Item Value Reference Range Interpretation Comments UA RBC (test code = 5 See_Comment [Automa mirna message] The UA RBC) system which ge nerated this result transmit mirna reference range : <=2. The reference range was not used to interpr et this result as zahra l/abnormal. [facility] AND [id number] 20:38:00 Test Item Value Reference Range Interpretation Comments UA WBC (test code = 13 See_Comment [Automa mirna message] The UA WBC) system which ge nerated this result transmit mirna reference range : <=5. The reference range was not used to interpr et this result as zahra l/abnormal. [facility] AND [id number] 20:38:00 Test Item Value Reference Range Interpretation Comments UA Glucose (test code = UA Negative mg/dL Glucose) [facility] AND [id number] 20:38:00 Test Item Value Reference Range Interpretation Comments UA Spec Grav (test code = UA Spec 1.015 1 Grav) [facility] AND [id number] 20:38:00 Test Item Value Reference Range Interpretation Comments UA Protein (test code = UA Protein) 30 mg/dL [facility] AND [id number] 20:38:00 Test Item Value Reference Range Interpretation Comments UA pH (test code = UA pH) 5.0 1 5.0-8.0 [facility] AND [id number] 20:38:00 Test Item Value Reference Range Interpretation Comments UA Bili (test code = Negative *NA*(02/09/18 UA Bili) 3:38 PM) [facility] AND [id number] 20:38:00 Test Item Value Reference Range Interpretation Comments UA Ketones (test code = UA Trace mg/dL Ketones) [facility] AND [id number] 20:38:00 Test Item Value Reference Range Interpretation Comments UA Blood (test code = Small *ABN*(02/09/18 UA Blood) 3:38 PM) [facility] AND [id number] 20:38:00 Test Item Value Reference Range Interpretation Comments UA Color (test code = Yellow *NA*(02/09/18 UA Color) 3:38 PM) [facility] AND [id number] 20:38:00 Test Item Value Reference Range Interpretation Comments UA Turbidity (test code Slight *ABN*(02/09/18 = UA Turbidity) 3:38 PM) [facility]WzhkupjITDIXMOYQJMP3449-15-52 15:30:00 Test Item Value Reference Range Interpretation Comments AGAP (test code = AGAP) 12.8 10.0-20.0 [facility] MichiganZvvlncmPQQDBRZIFWKL5442-25-21 15:30:00 Test Item Value Reference Range Interpretation Comments A/G Ratio (test code = A/G Ratio) 0.8 1 0.7-1.6 [facility] MichiganZnrydtvAURGIGWAHVIY1105-57-43 15:30:00 Test Item Value Reference Range Interpretation Comments B/C Ratio (test code = B/C Ratio) 14 1 6-25 [facility] Mic[id number] 15:30:00 Test Item Value Reference Range Interpretation Comments Globulin (test code = Globulin) 4.3 2.7-4.2 [facility] MichiganHmsjmqpZNMLVZWRWJWX5389-87-68 15:30:00 Test Item Value Reference Range Interpretation Comments eGFR (test code = eGFR) 72 [facility] MichiganDopnnkrAWKHCMXDYJCK1698-86-01 15:30:00 Test Item Value Reference Range Interpretation Comments Glucose Lvl (test code = Glucose Lvl) 86 70-99 [facility] MichiganCqofveiCZFRGOHQUDRF0055-28-12 15:30:00 Test Item Value Reference Range Interpretation Comments Creatinine Lvl (test code = Creatinine 0.94 0.50-1.40 Lvl) [facility] MichiganEvilddsEUQCWZFKDEIX7465-53-36 15:30:00 Test Item Value Reference Range Interpretation Comments BUN (test code = BUN) 13 7-22 [facility] MichiganDfwxbrhPBMIEUXVYCCE1615-73-90 15:30:00 Test Item Value Reference Range Interpretation Comments Bili Total (test code = Bili Total) 0.4 0.2-1.3 [facility] Mich[id number] 15:30:00 Test Item Value Reference Range Interpretation Comments Potassium Lvl (test code = Potassium 3.8 3.5-5.1 Lvl) [facility] MichiganBokcvouNOKCHLKSEKJE2575-29-40 15:30:00 Test Item Value Reference Range Interpretation Comments Sodium Lvl (test code = Sodium Lvl) 140 135-145 [facility] MichiganOoytozkZSQNNNXIYVMH4026-14-43 15:30:00 Test Item Value Reference Range Interpretation Comments Calcium Lvl (test code = Calcium Lvl) 9.1 8.5-10.5 [facility] MichiganSzxhmvaORIJBSMWWZZN1961-20-55 15:30:00 Test Item Value Reference Range Interpretation Comments Chloride Lvl (test code = Chloride Lvl) 109 95-109 [facility] MichiganGuokzxrYQDUIPHOEVRG4981-96-36 15:30:00 Test Item Value Reference Range Interpretation Comments Alk Phos (test code = Alk Phos) 78 39-136 [facility] MichiganWiyclppLGGVLLICYPIJ6502-99-81 15:30:00 Test Item Value Reference Range Interpretation Comments ALT (test code = ALT) 16 See_Comment [Auto mated message] The system which ge nerated this result transmit mirna reference range : <=65. The reference range was not used to interpr et this result as zahra l/abnormal. [facility] MichiganXnvdlvdRSCVRNNWPCAL9232-92-89 15:30:00 Test Item Value Reference Range Interpretation Comments AST (test code = AST) 26 See_Comment [Auto mated message] The system which ge nerated this result transmit mirna reference range : <=37. The reference range was not used to interpr et this result as zahra l/abnormal. [facility] MichiganKiewriuRZJUVWEDJURE6276-01-52 15:30:00 Test Item Value Reference Range Interpretation Comments Albumin Lvl (test code = Albumin Lvl) 3.6 3.5-5.0 [facility] MichiganHcefusjQCLPRMSBJLPE6367-23-81 15:30:00 Test Item Value Reference Range Interpretation Comments Total Protein (test code = Total 7.9 6.4-8.4 Protein) [facility] MichiganWooyknaKSFRCZHTPSVX4015-12-21 15:30:00 Test Item Value Reference Range Interpretation Comments CO2 (test code = CO2) 22 24-32 [place] [id number] 15:30:00 Test Item Value Reference Range Interpretation Comments S Preg (test code = S Negative *NA*(01/25/18 Preg) 10:30 AM) [facility] HospitalTeohsawHLBUTDQLXE7617-79-14 15:30:00 Test Item Value Reference Range Interpretation Comments Monocytes # (test code 0.4 See_Comment [Aut omated message] The = Monocytes #) system which generated this result tra nsmitted reference range : <=0.8. The reference r chuck was not used to int erpret this result as normal/abnormal . [facility] HospitalAbtwenkDEWBWBERCS9746-72-45 15:30:00 Test Item Value Reference Range Interpretation Comments Eosinophils # (test code 0.4 See_Comment [A utomated message] The = Eosinophils #) system whic h generated this result tra nsmitted reference range : <=0.5. The reference r chuck was not used to int erpret this result as normal/abnormal . [facility] HospitalUlulenwNBSDKGFKYN1930-18-61 15:30:00 Test Item Value Reference Range Interpretation Comments Lymphocytes # (test code = Lymphocytes 2.1 1.0-5.5 #) [facility] HospitalPdfkqswWDECLCZNFL9057-30-74 15:30:00 Test Item Value Reference Range Interpretation Comments Neutrophils # (test code = Neutrophils 5.3 1.5-8.1 #) [facility] HospitalGzmviprLFIABRFUXX4127-78-05 15:30:00 Test Item Value Reference Range Interpretation Comments Plt Morph (test code = Normal (01/25/18 10:30 Plt Morph) AM) [facility] HospitalQdvocuqECSJYGAYIM9504-27-59 15:30:00 Test Item Value Reference Range Interpretation Comments Basophils # (test code 0.0 See_Comment [Aut omated message] The = Basophils #) system which generated this result tra nsmitted reference range : <=0.2. The reference r chuck was not used to int erpret this result as normal/abnormal . [facility] HospitalRukdeplYKEZIBWVXN2653-40-27 15:30:00 Test Item Value Reference Range Interpretation Comments Basophils (test code = 0.5 See_Comment [Aut omated message] The Basophils) system which ge nerated this result tra nsmitted reference range : <=1.0. The reference r chuck was not used to int erpret this result as normal/abnormal . [facility] HospitalVzuwvznXNZJXSBCFI4310-03-39 15:30:00 Test Item Value Reference Range Interpretation Comments Eosinophils (test code = 5.4 See_Comment [A utomated message] The Eosinophils) system which ge nerated this result tra nsmitted reference range : <=4.0. The reference r chuck was not used to int erpret this result as normal/abnormal . [facility] HospitalWfpmwjnASOUFAAVGF2111-00-91 15:30:00 Test Item Value Reference Range Interpretation Comments RBC Morph (test code = Normal (01/25/18 10:30 RBC Morph) AM) [facility] HospitalJsmwsyjJXYCSYVWUU2967-57-29 15:30:00 Test Item Value Reference Range Interpretation Comments Segs (test code = Segs) 64.1 45.0-75.0 [facility] HospitalBugkjbaGNPCRIGUMS9599-39-76 15:30:00 Test Item Value Reference Range Interpretation Comments Lymphocytes (test code = Lymphocytes) 25.5 20.0-40.0 [facility] HospitalKramyhvVRQWLFIZQB7389-07-85 15:30:00 Test Item Value Reference Range Interpretation Comments Monocytes (test code = Monocytes) 4.5 2.0-12.0 [facility] HospitalQglgivyRJIBLMHTNY2078-36-36 15:30:00 Test Item Value Reference Range Interpretation Comments MCV (test code = MCV) 94.9 80.0-98.0 [facility] HospitalUcibowkPBHUFOZBJJ1836-10-44 15:30:00 Test Item Value Reference Range Interpretation Comments MCH (test code = MCH) 31.3 pg 27.0-31.0 [facility] HospitalMknqbwgGCXNPWWXTO9003-92-48 15:30:00 Test Item Value Reference Range Interpretation Comments MCHC (test code = MCHC) 33.0 32.0-36.0 [facility] HospitalTbotsztZXLIZUOSPY8679-29-68 15:30:00 Test Item Value Reference Range Interpretation Comments RDW (test code = RDW) 12.9 11.5-14.5 [facility] HospitalOdkdobsBLNUTEDECH3785-94-82 15:30:00 Test Item Value Reference Range Interpretation Comments Platelet (test code = Platelet) 350 133-450 [facility] HospitalZeivuorMNKHTDQUWO6730-31-50 15:30:00 Test Item Value Reference Range Interpretation Comments MPV (test code = MPV) 8.8 7.4-10.4 [facility] HospitalTudqxurCTOMXKRPOD0690-42-73 15:30:00 Test Item Value Reference Range Interpretation Comments WBC (test code = WBC) 8.3 3.7-10.4 [facility] HospitalYzsckvqPJLXMEOVWK7676-98-87 15:30:00 Test Item Value Reference Range Interpretation Comments RBC (test code = RBC) 4.09 4.20-5.40 [facility] HospitalTisrfbdHJQRXFCQNT6940-91-35 15:30:00 Test Item Value Reference Range Interpretation Comments Hct (test code = Hct) 38.8 36.0-48.0 [facility] HospitalCxyducbKFYPQEGJYK2797-97-90 15:30:00 Test Item Value Reference Range Interpretation Comments Hgb (test code = Hgb) 12.8 12.0-16.0 [facility] HospitalTrebalkEFWBWFRYKFUO3813-05-82 15:30:00 Test Item Value Reference Range Interpretation Comments AGAP (test code = AGAP) 12.8 10.0-20.0 [facility] MichiganVobebnpTFBCBVAJDPKL7339-28-75 15:30:00 Test Item Value Reference Range Interpretation Comments A/G Ratio (test code = A/G Ratio) 0.8 1 0.7-1.6 [facility] MichiganCpuxblzWDEBPNJABADU4562-77-69 15:30:00 Test Item Value Reference Range Interpretation Comments B/C Ratio (test code = B/C Ratio) 14 1 6-25 [facility] MichiganJqdolntVYDTMDCDEAPM3359-31-87 15:30:00 Test Item Value Reference Range Interpretation Comments Globulin (test code = Globulin) 4.3 2.7-4.2 [facility] MichiganMykljcrKWCEXOJWMRDV1699-25-55 15:30:00 Test Item Value Reference Range Interpretation Comments eGFR (test code = eGFR) 72 [facility] MichiganOmpvkemNSJXSOUELJFE4944-52-10 15:30:00 Test Item Value Reference Range Interpretation Comments Glucose Lvl (test code = Glucose Lvl) 86 70-99 [facility] MichiganPszdvkqGRGJUIILHVSD2610-41-84 15:30:00 Test Item Value Reference Range Interpretation Comments Creatinine Lvl (test code = Creatinine 0.94 0.50-1.40 Lvl) [facility] MichiganPgcujkvVCLMXJNOWEPG0505-38-39 15:30:00 Test Item Value Reference Range Interpretation Comments BUN (test code = BUN) 13 7-22 [facility] MichiganHxdhugvYOVNFGRSTEIS3852-09-53 15:30:00 Test Item Value Reference Range Interpretation Comments Bili Total (test code = Bili Total) 0.4 0.2-1.3 [facility] MichiganDmfwdcbWRNOLGQHWBVU4932-10-33 15:30:00 Test Item Value Reference Range Interpretation Comments Potassium Lvl (test code = Potassium 3.8 3.5-5.1 Lvl) [facility] [place]qqufzuLDDCTCNWAHNQ7323-28-16 15:30:00 Test Item Value Reference Range Interpretation Comments Sodium Lvl (test code = Sodium Lvl) 140 135-145 [facility] [place]LnvrxgtMPDEOLWBWRNW4021-75-92 15:30:00 Test Item Value Reference Range Interpretation Comments Calcium Lvl (test code = Calcium Lvl) 9.1 8.5-10.5 [facility] MichiganLaoheiwILYWPPFWKCKA4262-78-68 15:30:00 Test Item Value Reference Range Interpretation Comments Chloride Lvl (test code = Chloride Lvl) 109 95-109 [facility] MichiganCaospvfFRZBKLUBLLTB6749-82-41 15:30:00 Test Item Value Reference Range Interpretation Comments Alk Phos (test code = Alk Phos) 78 39-136 [facility] MichiganGepahxhZOCMKWBDTCIW5660-13-22 15:30:00 Test Item Value Reference Range Interpretation Comments ALT (test code = ALT) 16 See_Comment [Auto mated message] The system which ge nerated this result transmit mirna reference range : <=65. The reference range was not used to interpr et this result as zahra l/abnormal. [facility] MichiganVfsghqlVIUHNGFYJMUJ8443-57-64 15:30:00 Test Item Value Reference Range Interpretation Comments AST (test code = AST) 26 See_Comment [Auto mated message] The system which ge nerated this result transmit mirna reference range : <=37. The reference range was not used to interpr et this result as zahra l/abnormal. [facility] MichiganYoldekhHJODLHRTPUPV0851-87-34 15:30:00 Test Item Value Reference Range Interpretation Comments Albumin Lvl (test code = Albumin Lvl) 3.6 3.5-5.0 [facility] MichiganTvdbbarWQUDAUYQPCGI8037-08-13 15:30:00 Test Item Value Reference Range Interpretation Comments Total Protein (test code = Total 7.9 6.4-8.4 Protein) [facility] MichiganAewxzwzOVOAIQVQTNFA9526-23-59 15:30:00 Test Item Value Reference Range Interpretation Comments CO2 (test code = CO2) 22 24-32 [place] [id number] 15:30:00 Test Item Value Reference Range Interpretation Comments S Preg (test code = S Negative *NA*(01/25/18 Preg) 10:30 AM) [facility]XlwdoelGWPZBDHVET2627-50-32 15:30:00 Test Item Value Reference Range Interpretation Comments Monocytes # (test code 0.4 See_Comment [Aut omated message] The = Monocytes #) system which generated this result tra nsmitted reference range : <=0.8. The reference r chuck was not used to int erpret this result as normal/abnormal . [facility] HospitalInobdgdABPTZEVDVV6815-99-59 15:30:00 Test Item Value Reference Range Interpretation Comments Eosinophils # (test code 0.4 See_Comment [A utomated message] The = Eosinophils #) system whic h generated this result tra nsmitted reference range : <=0.5. The reference r chuck was not used to int erpret this result as normal/abnormal . [facility] HospitalSulokkyHDHKZVFGCD9043-62-43 15:30:00 Test Item Value Reference Range Interpretation Comments Lymphocytes # (test code = Lymphocytes 2.1 1.0-5.5 #) [facility] HospitalLpiqibnNTJAGDHDDV8105-37-15 15:30:00 Test Item Value Reference Range Interpretation Comments Neutrophils # (test code = Neutrophils 5.3 1.5-8.1 #) [facility] HospitalZcgdxiqCNROODCHRP1110-52-35 15:30:00 Test Item Value Reference Range Interpretation Comments Plt Morph (test code = Normal (01/25/18 10:30 Plt Morph) AM) [facility] HospitalRldutrkEISYRSBETU2968-63-67 15:30:00 Test Item Value Reference Range Interpretation Comments Basophils # (test code 0.0 See_Comment [Aut omated message] The = Basophils #) system which generated this result tra nsmitted reference range : <=0.2. The reference r chuck was not used to int erpret this result as normal/abnormal . [facility] HospitalTjllgwaIELMAPWQAA7546-40-05 15:30:00 Test Item Value Reference Range Interpretation Comments Basophils (test code = 0.5 See_Comment [Aut omated message] The Basophils) system which ge nerated this result tra nsmitted reference range : <=1.0. The reference r chuck was not used to int erpret this result as normal/abnormal . [facility] HospitalFxvbwbfDGGXZHUFUR3169-87-36 15:30:00 Test Item Value Reference Range Interpretation Comments Eosinophils (test code = 5.4 See_Comment [A utomated message] The Eosinophils) system which ge nerated this result tra nsmitted reference range : <=4.0. The reference r chuck was not used to int erpret this result as normal/abnormal . [facility] HospitalHyvsadqJTBTWTSDFV0768-48-28 15:30:00 Test Item Value Reference Range Interpretation Comments RBC Morph (test code = Normal (01/25/18 10:30 RBC Morph) AM) [facility] HospitalUqvgruiZIKAYZQZXB3735-13-01 15:30:00 Test Item Value Reference Range Interpretation Comments Segs (test code = Segs) 64.1 45.0-75.0 [facility] HospitalOtochziZWTMKDZDTQ9982-37-15 15:30:00 Test Item Value Reference Range Interpretation Comments Lymphocytes (test code = Lymphocytes) 25.5 20.0-40.0 [facility]tjs[facility]nKVOEAOOMZH8230-47-66 15:30:00 Test Item Value Reference Range Interpretation Comments Monocytes (test code = Monocytes) 4.5 2.0-12.0 [facility] HospitalOjsvxeyBAVWVSGZKT0946-07-28 15:30:00 Test Item Value Reference Range Interpretation Comments MCV (test code = MCV) 94.9 80.0-98.0 [facility] HospitalTwaksriFGBHXAWXRD9039-17-20 15:30:00 Test Item Value Reference Range Interpretation Comments MCH (test code = MCH) 31.3 pg 27.0-31.0 [facility] HospitalHhnhhbkROLRJZWSLN4343-65-04 15:30:00 Test Item Value Reference Range Interpretation Comments MCHC (test code = MCHC) 33.0 32.0-36.0 [facility] HospitalFmrkoncTGBMVFUYSA8123-12-11 15:30:00 Test Item Value Reference Range Interpretation Comments RDW (test code = RDW) 12.9 11.5-14.5 [facility] HospitalYgnmyyzDUFQOGNRSS2438-85-97 15:30:00 Test Item Value Reference Range Interpretation Comments Platelet (test code = Platelet) 350 133-450 [facility] HospitalPecpwrkSIFZBDPRSZ3844-73-95 15:30:00 Test Item Value Reference Range Interpretation Comments MPV (test code = MPV) 8.8 7.4-10.4 [facility] HospitalJkxzdbtHODGCASHEX3933-99-64 15:30:00 Test Item Value Reference Range Interpretation Comments WBC (test code = WBC) 8.3 3.7-10.4 [facility] HospitalMjymillJLOCLYJMAA0036-10-59 15:30:00 Test Item Value Reference Range Interpretation Comments RBC (test code = RBC) 4.09 4.20-5.40 [facility] HospitalLwwtdlcKXSHQTJUCC6030-77-29 15:30:00 Test Item Value Reference Range Interpretation Comments Hct (test code = Hct) 38.8 36.0-48.0 [facility] HospitalDyapxsfFCVGXQXGGW4226-37-98 15:30:00 Test Item Value Reference Range Interpretation Comments Hgb (test code = Hgb) 12.8 12.0-16.0 [facility] JADBWQQ9597[facility]46-63 05:33:00 Test Item Value Reference Range Interpretation Comments Troponin-I (test code no gt See_Comment [Auto mated message] The = Troponin-I) system which g enerated this result transmit mirna reference range : <=0.40. The reference r chuck was not used to interpr et this result as zahra l/abnormal. [facility]2017-07-26 05:33:00 Test Item Value Reference Range Interpretation Comments Troponin-I (test code no gt See_Comment [Auto mated message] The = Troponin-I) system which g enerated this result transmit mirna reference range : <=0.40. The reference r chuck was not used to interpr et this result as zahra l/abnormal. [facility]2017-07-26 03:16:00 Test Item Value Reference Range Interpretation Comments CK MB Index (test 0.9 See_Comment [Automate d message] The code = CK MB Index) system w [facility] generated this result transmit mirna reference range : <=2.5. The reference range was not used to interpr et this result as zahra l/abnormal. [facility]2017-07-26 03:16:00 Test Item Value Reference Range Interpretation Comments Total CK (test code = Total CK) 67 12-191 [facility]2017-07-26 03:16:00 Test Item Value Reference Range Interpretation Comments Troponin-I (test code no gt See_Comment [Auto mated message] The = Troponin-I) system which g enerated this result transmit mirna reference range : <=0.40. The reference r chuck was not used to interpr et this result as zahra l/abnormal. [facility]2017-07-26 03:16:00 Test Item Value Reference Range Interpretation Comments CK MB (test code = CK MB) 0.6 0.5-3.6 [facility] [employer]2017-07-26 03:16:00 Test Item Value Reference Range Interpretation Comments eGFR (test code = eGFR) 44 [facility] [employer]2017-07-26 03:16:00 Test Item Value Reference Range Interpretation Comments A/G Ratio (test code = A/G Ratio) 0.9 0.7-1.6 [facility] [employer]2017-07-26 03:16:00 Test Item Value Reference Range Interpretation Comments AST (test code = AST) 14 See_Comment [Auto mated message] The system which ge nerated this result transmit mirna reference range : <=37. The reference range was not used to interpr et this result as zahra l/abnormal. [facility]2017-07-26 03:16:00 Test Item Value Reference Range Interpretation Comments ALT (test code = ALT) 18 See_Comment [Auto mated message] The system which ge nerated this result transmit mirna reference range : <=65. The reference range was not used to interpr et this result as zahra l/abnormal. [facility]2017-07-26 03:16:00 Test Item Value Reference Range Interpretation Comments Albumin Lvl (test code = Albumin Lvl) 3.4 3.5-5.0 [facility]2017-07-26 03:16:00 Test Item Value Reference Range Interpretation Comments Total Protein (test code = Total 7.3 6.4-8.4 Protein) [facility]2017-07-26 03:16:00 Test Item Value Reference Range Interpretation Comments Calcium Lvl (test code = Calcium Lvl) 8.4 8.5-10.5 [place] 923307-07-26 03:16:00 Test Item Value Reference Range Interpretation Comments Globulin (test code = Globulin) 3.9 2.7-4.2 [facility]2017-07-26 03:16:00 Test Item Value Reference Range Interpretation Comments B/C Ratio (test code = B/C Ratio) 15 6-25 [facility]2017-07-26 03:16:00 Test Item Value Reference Range Interpretation Comments AGAP (test code = AGAP) 12.7 10.0-20.0 [facility]2017-07-26 03:16:00 Test Item Value Reference Range Interpretation Comments Bili Total (test code = Bili Total) 0.1 0.2-1.3 [facility]2017-07-26 03:16:00 Test Item Value Reference Range Interpretation Comments Alk Phos (test code = Alk Phos) 80 39-136 [facility]2017-07-26 03:16:00 Test Item Value Reference Range Interpretation Comments Creatinine Lvl (test code = Creatinine 1.42 0.50-1.40 Lvl) [place] 923307-07-26 03:16:00 Test Item Value Reference Range Interpretation Comments Sodium Lvl (test code = Sodium Lvl) 141 135-145 [facility]2017-07-26 03:16:00 Test Item Value Reference Range Interpretation Comments Potassium Lvl (test code = Potassium 3.7 3.5-5.1 Lvl) [facility]2017-07-26 03:16:00 Test Item Value Reference Range Interpretation Comments Chloride Lvl (test code = Chloride Lvl) 105 95-109 [place] 923307-07-26 03:16:00 Test Item Value Reference Range Interpretation Comments CO2 (test code = CO2) 27 24-32 [place] 923307-07-26 03:16:00 Test Item Value Reference Range Interpretation Comments Glucose Lvl (test code = Glucose Lvl) 79 70-99 [place] 923307-07-26 03:16:00 Test Item Value Reference Range Interpretation Comments BUN (test code = BUN) 21 7-22 [facility] HospitalBakapvcIKXSKGBBAS8955-99-14 03:16:00 Test Item Value Reference Range Interpretation Comments Basophils # (test code 0.0 See_Comment [Aut omated message] The = Basophils #) system which generated this result tra nsmitted reference range : <=0.2. The reference r chuck was not used to int erpret this result as normal/abnormal . [facility] HospitalHonygieCTCMXIDYAR4772-54-54 03:16:00 Test Item Value Reference Range Interpretation Comments Eosinophils # (test code 0.1 See_Comment [A utomated message] The = Eosinophils #) system whic h generated this result tra nsmitted reference range : <=0.5. The reference r chuck was not used to int erpret this result as normal/abnormal . [facility] HospitalPvwpzooWZBFFCYXPE6726-80-34 03:16:00 Test Item Value Reference Range Interpretation Comments Monocytes # (test code 0.6 See_Comment [Aut omated message] The = Monocytes #) system which generated this result tra nsmitted reference range : <=0.8. The reference r chuck was not used to int erpret this result as normal/abnormal . [place] 813967-07-26 03:16:00 Test Item Value Reference Range Interpretation Comments Lymphocytes # (test code = Lymphocytes 3.0 1.0-5.5 #) [facility] HospitalKpzxrybHIETRAVDFE9965-38-84 03:16:00 Test Item Value Reference Range Interpretation Comments Segs (test code = Segs) 58.6 45.0-75.0 [facility] HospitalZwwvmihFNBURCWLIW5402-88-22 03:16:00 Test Item Value Reference Range Interpretation Comments Segs-Bands # (test code = Segs-Bands #) 5.4 1.5-8.1 [facility] HospitalPmeuagqHYLKDWBVUB9242-34-75 03:16:00 Test Item Value Reference Range Interpretation Comments Basophils (test code = 0.4 See_Comment [Aut omated message] The Basophils) system which ge nerated this result tra nsmitted reference range : <=1.0. The reference r chuck was not used to int erpret this result as normal/abnormal . [facility] HospitalTipvejnPGSDVZCPAI9569-56-24 03:16:00 Test Item Value Reference Range Interpretation Comments Eosinophils (test code = 1.6 See_Comment [A utomated message] The Eosinophils) system which ge nerated this result tra nsmitted reference range : <=4.0. The reference r chuck was not used to int erpret this result as normal/abnormal . [facility] HospitalYkqrsxdJXSNNRJBRM3069-73-94 03:16:00 Test Item Value Reference Range Interpretation Comments Lymphocytes (test code = Lymphocytes) 32.9 20.0-40.0 [facility] HospitalQnlescaIVJZBHZERP8179-44-09 03:16:00 Test Item Value Reference Range Interpretation Comments Monocytes (test code = Monocytes) 6.5 2.0-12.0 [facility] HospitalJhtpxfgJGNTIROTJQ0428-86-89 03:16:00 Test Item Value Reference Range Interpretation Comments D-Dimer (test code = D-Dimer) no gt [facility] HospitalLfryyvgXZIFWANZLY2767-04-01 03:16:00 Test Item Value Reference Range Interpretation Comments MPV (test code = MPV) 7.7 7.4-10.4 [facility] HospitalFjnkncbPUVSORPZWY5654-44-93 03:16:00 Test Item Value Reference Range Interpretation Comments MCH (test code = MCH) 32.1 pg 27.0-31.0 [facility] HospitalKpnoiogGTOLIKBUVB2285-75-88 03:16:00 Test Item Value Reference Range Interpretation Comments MCV (test code = MCV) 97.0 80.0-98.0 [facility] HospitalBxxuyeqPFPQNIYMSG5536-76-36 03:16:00 Test Item Value Reference Range Interpretation Comments Platelet (test code = Platelet) 305 133-450 [facility] HospitalDivcyedOLHBVLDOVH9994-25-28 03:16:00 Test Item Value Reference Range Interpretation Comments MCHC (test code = MCHC) 33.1 32.0-36.0 [facility] HospitalCgicuygBPYYPPMCHH4280-89-53 03:16:00 Test Item Value Reference Range Interpretation Comments RDW (test code = RDW) 14.4 11.5-14.5 [facility] HospitalCmosvibXAJXTZMHVK6420-50-32 03:16:00 Test Item Value Reference Range Interpretation Comments Hct (test code = Hct) 34.9 36.0-48.0 [facility] HospitalJnzybrbUNNIIKOEIG4449-90-49 03:16:00 Test Item Value Reference Range Interpretation Comments Hgb (test code = Hgb) 11.6 12.0-16.0 [facility] HospitalTfnkzasMFFZWJZUCW3280-35-34 03:16:00 Test Item Value Reference Range Interpretation Comments RBC (test code = RBC) 3.60 4.20-5.40 [facility] HospitalBltmklpICWQYBKQPT8941-27-83 03:16:00 Test Item Value Reference Range Interpretation Comments WBC (test code = WBC) 9.2 3.7-10.4 [facility] YPEKNDE0688-47-27 03:16:00 Test Item Value Reference Range Interpretation Comments CK MB Index (test 0.9 See_Comment [Automate d message] The code = CK MB Index) system w [facility] generated this result transmit mirna reference range : <=2.5. The reference range was not used to interpr et this result as zahra l/abnormal. [facility] ORXPGTZ7142-96-96 03:16:00 Test Item Value Reference Range Interpretation Comments Total CK (test code = Total CK) 67 12-191 [facility] FZTTJZC5581-99-72 03:16:00 Test Item Value Reference Range Interpretation Comments Troponin-I (test code no gt See_Comment [Auto mated message] The = Troponin-I) system which g enerated this result transmit mirna reference range : <=0.40. The reference r chuck was not used to interpr et this result as zahra l/abnormal. [facility] ZRAYSLM6457-44-11 03:16:00 Test Item Value Reference Range Interpretation Comments CK MB (test code = CK MB) 0.6 0.5-3.6 [facility]2017-07-26 03:16:00 Test Item Value Reference Range Interpretation Comments eGFR (test code = eGFR) 44 [facility]2017-07-26 03:16:00 Test Item Value Reference Range Interpretation Comments A/G Ratio (test code = A/G Ratio) 0.9 0.7-1.6 [facility]2017-07-26 03:16:00 Test Item Value Reference Range Interpretation Comments AST (test code = AST) 14 See_Comment [Auto mated message] The system which ge nerated this result transmit mirna reference range : <=37. The reference range was not used to interpr et this result as zahra l/abnormal. [facility]2017-07-26 03:16:00 Test Item Value Reference Range Interpretation Comments ALT (test code = ALT) 18 See_Comment [Auto mated message] The system which ge nerated this result transmit mirna reference range : <=65. The reference range was not used to interpr et this result as zahra l/abnormal. [facility]2017-07-26 03:16:00 Test Item Value Reference Range Interpretation Comments Albumin Lvl (test code = Albumin Lvl) 3.4 3.5-5.0 [facility]2017-07-26 03:16:00 Test Item Value Reference Range Interpretation Comments Total Protein (test code = Total 7.3 6.4-8.4 Protein) [facility]2017-07-26 03:16:00 Test Item Value Reference Range Interpretation Comments Calcium Lvl (test code = Calcium Lvl) 8.4 8.5-10.5 [facility]2017-07-26 03:16:00 Test Item Value Reference Range Interpretation Comments Globulin (test code = Globulin) 3.9 2.7-4.2 [facility]2017-07-26 03:16:00 Test Item Value Reference Range Interpretation Comments B/C Ratio (test code = B/C Ratio) 15 6-25 [facility]2017-07-26 03:16:00 Test Item Value Reference Range Interpretation Comments AGAP (test code = AGAP) 12.7 10.0-20.0 [facility]2017-07-26 03:16:00 Test Item Value Reference Range Interpretation Comments Bili Total (test code = Bili Total) 0.1 0.2-1.3 [facility]2017-07-26 03:16:00 Test Item Value Reference Range Interpretation Comments Alk Phos (test code = Alk Phos) 80 39-136 [facility]2017-07-26 03:16:00 Test Item Value Reference Range Interpretation Comments Creatinine Lvl (test code = Creatinine 1.42 0.50-1.40 Lvl) [facility]2017-07-26 03:16:00 Test Item Value Reference Range Interpretation Comments Sodium Lvl (test code = Sodium Lvl) 141 135-145 [facility]2017-07-26 03:16:00 Test Item Value Reference Range Interpretation Comments Potassium Lvl (test code = Potassium 3.7 3.5-5.1 Lvl) [facility]2017-07-26 03:16:00 Test Item Value Reference Range Interpretation Comments Chloride Lvl (test code = Chloride Lvl) 105 95-109 [facility]2017-07-26 03:16:00 Test Item Value Reference Range Interpretation Comments CO2 (test code = CO2) 27 24-32 [facility]2017-07-26 03:16:00 Test Item Value Reference Range Interpretation Comments Glucose Lvl (test code = Glucose Lvl) 79 70-99 [facility]2017-07-26 03:16:00 Test Item Value Reference Range Interpretation Comments BUN (test code = BUN) 21 7-22 [facility] HospitalSkntvwjVPEQWLIXEO2231-67-51 03:16:00 Test Item Value Reference Range Interpretation Comments Basophils # (test code 0.0 See_Comment [Aut omated message] The = Basophils #) system which generated this result tra nsmitted reference range : <=0.2. The reference r chuck was not used to int erpret this result as normal/abnormal . [facility] HospitalRbynujtFAFCTIMBSP1064-88-92 03:16:00 Test Item Value Reference Range Interpretation Comments Eosinophils # (test code 0.1 See_Comment [A utomated message] The = Eosinophils #) system whic h generated this result tra nsmitted reference range : <=0.5. The reference r chuck was not used to int erpret this result as normal/abnormal . [facility] HospitalWaofrcpMMWHVEGCWF1163-16-40 03:16:00 Test Item Value Reference Range Interpretation Comments Monocytes # (test code 0.6 See_Comment [Aut omated message] The = Monocytes #) system which generated this result tra nsmitted reference range : <=0.8. The reference r chuck was not used to int erpret this result as normal/abnormal . [facility] HospitalQxwqiwaYQROKLTBJQ8510-37-27 03:16:00 Test Item Value Reference Range Interpretation Comments Lymphocytes # (test code = Lymphocytes 3.0 1.0-5.5 #) [facility] HospitalHcupvmpJSURLZUOSB2190-73-12 03:16:00 Test Item Value Reference Range Interpretation Comments Segs (test code = Segs) 58.6 45.0-75.0 [facility] HospitalRwipntwGDIPSTOVOY2232-08-86 03:16:00 Test Item Value Reference Range Interpretation Comments Segs-Bands # (test code = Segs-Bands #) 5.4 1.5-8.1 [facility] HospitalLoipifcQXWFYYNWCD6832-47-81 03:16:00 Test Item Value Reference Range Interpretation Comments Basophils (test code = 0.4 See_Comment [Aut omated message] The Basophils) system which ge nerated this result tra nsmitted reference range : <=1.0. The reference r chuck was not used to int erpret this result as normal/abnormal . [facility] HospitalDgblvvdHZZDXQQEKF8900-37-33 03:16:00 Test Item Value Reference Range Interpretation Comments Eosinophils (test code = 1.6 See_Comment [A utomated message] The Eosinophils) system which ge nerated this result tra nsmitted reference range : <=4.0. The reference r chuck was not used to int erpret this result as normal/abnormal . [facility] HospitalFxkozpdWMIDINAGOG9885-87-48 03:16:00 Test Item Value Reference Range Interpretation Comments Lymphocytes (test code = Lymphocytes) 32.9 20.0-40.0 [facility] HospitalRdvibchBCPKDUXWRY3512-08-22 03:16:00 Test Item Value Reference Range Interpretation Comments Monocytes (test code = Monocytes) 6.5 2.0-12.0 [facility] HospitalCmmtoscENOPBQCITY0581-38-40 03:16:00 Test Item Value Reference Range Interpretation Comments D-Dimer (test code = D-Dimer) no gt [facility] HospitalRtbhhpwCBAHDZJQRB1235-57-55 03:16:00 Test Item Value Reference Range Interpretation Comments MPV (test code = MPV) 7.7 7.4-10.4 [facility] HospitalQwaeursLFSHVIJGLV1881-01-82 03:16:00 Test Item Value Reference Range Interpretation Comments MCH (test code = MCH) 32.1 pg 27.0-31.0 [facility] HospitalVrqdrcqHQCXWUHZQZ0689-43-43 03:16:00 Test Item Value Reference Range Interpretation Comments MCV (test code = MCV) 97.0 80.0-98.0 [facility] HospitalNlarnajWLKEBVSUCS4846-62-59 03:16:00 Test Item Value Reference Range Interpretation Comments Platelet (test code = Platelet) 305 133-450 [facility] HospitalKoelladJKELRMQQXF9107-85-76 03:16:00 Test Item Value Reference Range Interpretation Comments MCHC (test code = MCHC) 33.1 32.0-36.0 [facility] HospitalHdoaghvLRFTGFSXJS6773-24-61 03:16:00 Test Item Value Reference Range Interpretation Comments RDW (test code = RDW) 14.4 11.5-14.5 [facility] HospitalVhhcmvaJZVEMUNHCT7987-55-31 03:16:00 Test Item Value Reference Range Interpretation Comments Hct (test code = Hct) 34.9 36.0-48.0 [facility] HospitalGbabmddRJHANIQXDP0072-77-68 03:16:00 Test Item Value Reference Range Interpretation Comments Hgb (test code = Hgb) 11.6 12.0-16.0 [facility] HospitalKedvjaxWONRBXMUTC7074-00-88 03:16:00 Test Item Value Reference Range Interpretation Comments RBC (test code = RBC) 3.60 4.20-5.40 [facility] [id number] 03:16:00 Test Item Value Reference Range Interpretation Comments WBC (test code = WBC) 9.2 3.7-10.4 [facility]2015-11-01 10:36:00 Test Item Value Reference Range Interpretation Comments Magnesium Lvl (test code = Magnesium 1.9 1.8-2.4 Lvl) [facility]2015-11-01 10:36:00 Test Item Value Reference Range Interpretation Comments eGFR (test code = eGFR) 106 [facility]2015-11-01 10:36:00 Test Item Value Reference Range Interpretation Comments Sodium Lvl (test code = Sodium Lvl) 143 135-145 [facility]2015-11-01 10:36:00 Test Item Value Reference Range Interpretation Comments Creatinine Lvl (test code = Creatinine 0.7 0.5-1.4 Lvl) [facility]2015-11-01 10:36:00 Test Item Value Reference Range Interpretation Comments Chloride Lvl (test code = Chloride Lvl) 114 95-109 [facility]2015-11-01 10:36:00 Test Item Value Reference Range Interpretation Comments Potassium Lvl (test code = Potassium 3.6 3.5-5.1 Lvl) [facility]2015-11-01 10:36:00 Test Item Value Reference Range Interpretation Comments Total Protein (test code = Total 5.9 6.4-8.4 Protein) [facility]2015-11-01 10:36:00 Test Item Value Reference Range Interpretation Comments Globulin (test code = Globulin) 2.8 2.0-4.0 [facility]2015-11-01 10:36:00 Test Item Value Reference Range Interpretation Comments Albumin Lvl (test code = Albumin Lvl) 3.1 3.5-5.0 [facility]2015-11-01 10:36:00 Test Item Value Reference Range Interpretation Comments A/G Ratio (test code = A/G Ratio) 1.1 0.7-1.6 [facility]2015-11-01 10:36:00 Test Item Value Reference Range Interpretation Comments Alk Phos (test code = Alk Phos) 36 39-136 [facility]2015-11-01 10:36:00 Test Item Value Reference Range Interpretation Comments ALT (test code = ALT) 19 See_Comment [Auto mated message] The system which ge nerated this result transmit mirna reference range : <=65. The reference range was not used to interpr et this result as zahra l/abnormal. [facility]2015-11-01 10:36:00 Test Item Value Reference Range Interpretation Comments Bili Total (test code = Bili Total) 0.4 0.2-1.3 [facility]2015-11-01 10:36:00 Test Item Value Reference Range Interpretation Comments AST (test code = AST) 17 See_Comment [Auto mated message] The system which ge nerated this result transmit mirna reference range : <=37. The reference range was not used to interpr et this result as zahra l/abnormal. [facility]2015-11-01 10:36:00 Test Item Value Reference Range Interpretation Comments AGAP (test code = AGAP) 10.6 10.0-20.0 [facility]2015-11-01 10:36:00 Test Item Value Reference Range Interpretation Comments CO2 (test code = CO2) 22 24-32 [facility]2015-11-01 10:36:00 Test Item Value Reference Range Interpretation Comments B/C Ratio (test code = B/C Ratio) 24 6-25 [place] 923305-11-01 10:36:00 Test Item Value Reference Range Interpretation Comments Calcium Lvl (test code = Calcium Lvl) 7.8 8.5-10.5 [facility]2015-11-01 10:36:00 Test Item Value Reference Range Interpretation Comments Glucose Lvl (test code = Glucose Lvl) 93 70-99 [facility]2015-11-01 10:36:00 Test Item Value Reference Range Interpretation Comments BUN (test code = BUN) 17 7-22 [facility]ScahzgoGUJWJGCNGS0586-95-09 10:36:00 Test Item Value Reference Range Interpretation Comments Basophils # (test code 0.0 See_Comment [Aut omated message] The = Basophils #) system which generated this result tra nsmitted reference range : <=0.2. The reference r chuck was not used to int erpret this result as normal/abnormal . [facility]UmzdwsbSWSAZSOZOT9213-87-13 10:36:00 Test Item Value Reference Range Interpretation Comments Eosinophils # (test code 0.1 See_Comment [A utomated message] The = Eosinophils #) system whic h generated this result tra nsmitted reference range : <=0.5. The reference r chuck was not used to int erpret this result as normal/abnormal . [facility] HospitalCwkaifsUFMBUEKZEB6788-79-09 10:36:00 Test Item Value Reference Range Interpretation Comments Monocytes # (test code 0.9 See_Comment [Aut omated message] The = Monocytes #) system which generated this result tra nsmitted reference range : <=0.8. The reference r chuck was not used to int erpret this result as normal/abnormal . [facility] HospitalCnzwwnwOKPDKUWKXD8464-01-54 10:36:00 Test Item Value Reference Range Interpretation Comments Lymphocytes # (test code = Lymphocytes 1.8 1.0-5.5 #) [facility] HospitalXxipltyNTILQJYFPB9000-52-16 10:36:00 Test Item Value Reference Range Interpretation Comments Segs-Bands # (test code = Segs-Bands #) 7.4 1.5-8.1 [facility] HospitalIqrbgyrNSZPBAZJIL3394-38-82 10:36:00 Test Item Value Reference Range Interpretation Comments Basophils (test code = 0.3 See_Comment [Aut omated message] The Basophils) system which ge nerated this result tra nsmitted reference range : <=1.0. The reference r chuck was not used to int erpret this result as normal/abnormal . [facility] HospitalMiziimsEJDXPFTMRU2760-91-69 10:36:00 Test Item Value Reference Range Interpretation Comments Lymphocytes (test code = Lymphocytes) 17.4 20.0-40.0 [facility] HospitalIzxszzgBVMUBTPUDF9820-27-01 10:36:00 Test Item Value Reference Range Interpretation Comments Eosinophils (test code = 0.9 See_Comment [A utomated message] The Eosinophils) system which ge nerated this result tra nsmitted reference range : <=4.0. The reference r chuck was not used to int erpret this result as normal/abnormal . [facility] HospitalSrybpxiGZSYRWMSBB4554-78-56 10:36:00 Test Item Value Reference Range Interpretation Comments Monocytes (test code = Monocytes) 9.2 2.0-12.0 [facility] HospitalHqujdjbVNJYWRRFJD2698-26-52 10:36:00 Test Item Value Reference Range Interpretation Comments Segs (test code = Segs) 72.2 45.0-75.0 [facility] HospitalLvzbamcJOCABWCUJK8085-84-48 10:36:00 Test Item Value Reference Range Interpretation Comments WBC (test code = WBC) 10.3 3.7-10.4 [facility] HospitalTsdpztlDAIGINSGTT9584-94-78 10:36:00 Test Item Value Reference Range Interpretation Comments Platelet (test code = Platelet) 231 133-450 [facility] HospitalAimkophIGVGFNZFAX3883-27-53 10:36:00 Test Item Value Reference Range Interpretation Comments RDW (test code = RDW) 13.5 11.5-14.5 [facility] HospitalQlowcsrNMKMAGHPGH7116-09-34 10:36:00 Test Item Value Reference Range Interpretation Comments Hgb (test code = Hgb) 10.9 12.0-16.0 [facility] HospitalMkmcpulZKGXENRJQS5802-56-19 10:36:00 Test Item Value Reference Range Interpretation Comments MPV (test code = MPV) 7.3 7.4-10.4 [facility] HospitalIwfwtdzTUNADWHOQE2911-58-77 10:36:00 Test Item Value Reference Range Interpretation Comments MCHC (test code = MCHC) 32.0 32.0-36.0 [facility] HospitalPccurevNTXQBRKLEK7366-52-48 10:36:00 Test Item Value Reference Range Interpretation Comments MCH (test code = MCH) 32.4 pg 27.0-31.0 [facility] HospitalRwsxrfgKCFNNUBYXD5498-18-32 10:36:00 Test Item Value Reference Range Interpretation Comments MCV (test code = MCV) 101.2 80.0-98.0 [facility] HospitalYufrnvfLZYCSVJVCE2259-92-69 10:36:00 Test Item Value Reference Range Interpretation Comments Hct (test code = Hct) 34.0 36.0-48.0 [facility] HospitalQqpijwbRTOQRQBOGM6599-04-22 10:36:00 Test Item Value Reference Range Interpretation Comments RBC (test code = RBC) 3.36 4.20-5.40 [facility]2015-11-01 10:36:00 Test Item Value Reference Range Interpretation Comments Magnesium Lvl (test code = Magnesium 1.9 1.8-2.4 Lvl) [facility]2015-11-01 10:36:00 Test Item Value Reference Range Interpretation Comments eGFR (test code = eGFR) 106 [facility]2015-11-01 10:36:00 Test Item Value Reference Range Interpretation Comments Sodium Lvl (test code = Sodium Lvl) 143 135-145 [facility]2015-11-01 10:36:00 Test Item Value Reference Range Interpretation Comments Creatinine Lvl (test code = Creatinine 0.7 0.5-1.4 Lvl) [facility]2015-11-01 10:36:00 Test Item Value Reference Range Interpretation Comments Chloride Lvl (test code = Chloride Lvl) 114 95-109 [facility]2015-11-01 10:36:00 Test Item Value Reference Range Interpretation Comments Potassium Lvl (test code = Potassium 3.6 3.5-5.1 Lvl) [facility]2015-11-01 10:36:00 Test Item Value Reference Range Interpretation Comments Total Protein (test code = Total 5.9 6.4-8.4 Protein) [facility]2015-11-01 10:36:00 Test Item Value Reference Range Interpretation Comments Globulin (test code = Globulin) 2.8 2.0-4.0 [facility]2015-11-01 10:36:00 Test Item Value Reference Range Interpretation Comments Albumin Lvl (test code = Albumin Lvl) 3.1 3.5-5.0 [facility]2015-11-01 10:36:00 Test Item Value Reference Range Interpretation Comments A/G Ratio (test code = A/G Ratio) 1.1 0.7-1.6 [facility]2015-11-01 10:36:00 Test Item Value Reference Range Interpretation Comments Alk Phos (test code = Alk Phos) 36 39-136 [facility]2015-11-01 10:36:00 Test Item Value Reference Range Interpretation Comments ALT (test code = ALT) 19 See_Comment [Auto mated message] The system which ge nerated this result transmit mirna reference range : <=65. The reference range was not used to interpr et this result as zahra l/abnormal. [facility]2015-11-01 10:36:00 Test Item Value Reference Range Interpretation Comments Bili Total (test code = Bili Total) 0.4 0.2-1.3 [facility]2015-11-01 10:36:00 Test Item Value Reference Range Interpretation Comments AST (test code = AST) 17 See_Comment [Auto mated message] The system which ge nerated this result transmit mirna reference range : <=37. The reference range was not used to interpr et this result as zahra l/abnormal. [facility]2015-11-01 10:36:00 Test Item Value Reference Range Interpretation Comments AGAP (test code = AGAP) 10.6 10.0-20.0 [facility]2015-11-01 10:36:00 Test Item Value Reference Range Interpretation Comments CO2 (test code = CO2) 22 24-32 [facility]2015-11-01 10:36:00 Test Item Value Reference Range Interpretation Comments B/C Ratio (test code = B/C Ratio) 24 6-25 [facility]2015-11-01 10:36:00 Test Item Value Reference Range Interpretation Comments Calcium Lvl (test code = Calcium Lvl) 7.8 8.5-10.5 [facility]2015-11-01 10:36:00 Test Item Value Reference Range Interpretation Comments Glucose Lvl (test code = Glucose Lvl) 93 70-99 [facility]2015-11-01 10:36:00 Test Item Value Reference Range Interpretation Comments BUN (test code = BUN) 17 7-22 [facility] HospitalEnmgrbmYKYJLXFZCI8157-28-13 10:36:00 Test Item Value Reference Range Interpretation Comments Basophils # (test code 0.0 See_Comment [Aut omated message] The = Basophils #) system which generated this result tra nsmitted reference range : <=0.2. The reference r chuck was not used to int erpret this result as normal/abnormal . [facility] HospitalNlptdlcPJXLWEWHWC1285-07-06 10:36:00 Test Item Value Reference Range Interpretation Comments Eosinophils # (test code 0.1 See_Comment [A utomated message] The = Eosinophils #) system whic h generated this result tra nsmitted reference range : <=0.5. The reference r chuck was not used to int erpret this result as normal/abnormal . [facility] HospitalVajihjtWRCLMMUIWY5491-50-44 10:36:00 Test Item Value Reference Range Interpretation Comments Monocytes # (test code 0.9 See_Comment [Aut omated message] The = Monocytes #) system which generated this result tra nsmitted reference range : <=0.8. The reference r chuck was not used to int erpret this result as normal/abnormal . [facility] HospitalDlxsuqhHUMRVPNJBG7046-41-02 10:36:00 Test Item Value Reference Range Interpretation Comments Lymphocytes # (test code = Lymphocytes 1.8 1.0-5.5 #) [facility] HospitalRqqrseaGHFYODRUSK7144-87-50 10:36:00 Test Item Value Reference Range Interpretation Comments Segs-Bands # (test code = Segs-Bands #) 7.4 1.5-8.1 [facility] HospitalMtivzgvZIYPOCMTXH0558-11-34 10:36:00 Test Item Value Reference Range Interpretation Comments Basophils (test code = 0.3 See_Comment [Aut omated message] The Basophils) system which ge nerated this result tra nsmitted reference range : <=1.0. The reference r chuck was not used to int erpret this result as normal/abnormal . [facility] HospitalCsvqpruFJNXSNZDTV4779-77-39 10:36:00 Test Item Value Reference Range Interpretation Comments Lymphocytes (test code = Lymphocytes) 17.4 20.0-40.0 [facility] HospitalOymftzkFVVLXMESUR8664-39-10 10:36:00 Test Item Value Reference Range Interpretation Comments Eosinophils (test code = 0.9 See_Comment [A utomated message] The Eosinophils) system which ge nerated this result tra nsmitted reference range : <=4.0. The reference r chuck was not used to int erpret this result as normal/abnormal . [facility] HospitalZeqojqvJTYTSRRAER9969-18-30 10:36:00 Test Item Value Reference Range Interpretation Comments Monocytes (test code = Monocytes) 9.2 2.0-12.0 [facility] HospitalLsknvnhIJSYPELUPP0606-98-68 10:36:00 Test Item Value Reference Range Interpretation Comments Segs (test code = Segs) 72.2 45.0-75.0 [facility] HospitalDutldjtHTOASNDROP4312-19-93 10:36:00 Test Item Value Reference Range Interpretation Comments WBC (test code = WBC) 10.3 3.7-10.4 [facility] H[id number] 10:36:00 Test Item Value Reference Range Interpretation Comments Platelet (test code = Platelet) 231 133-450 [facility] HospitalZctuohoXQFWLZMPSI7375-87-95 10:36:00 Test Item Value Reference Range Interpretation Comments RDW (test code = RDW) 13.5 11.5-14.5 [facility] HospitalUliodddSTOHEVOGUO0681-88-47 10:36:00 Test Item Value Reference Range Interpretation Comments Hgb (test code = Hgb) 10.9 12.0-16.0 [facility] HospitalEljqnkfFYZCFLJXZQ8739-73-32 10:36:00 Test Item Value Reference Range Interpretation Comments MPV (test code = MPV) 7.3 7.4-10.4 [facility] HospitalNzhsbxwZBVBEILPET4013-48-48 10:36:00 Test Item Value Reference Range Interpretation Comments MCHC (test code = MCHC) 32.0 32.0-36.0 [facility] HospitalNjxftskRVBGOCIRTI1024-95-19 10:36:00 Test Item Value Reference Range Interpretation Comments MCH (test code = MCH) 32.4 pg 27.0-31.0 [facility] HospitalVuowfctFRJQDJPDON7202-58-19 10:36:00 Test Item Value Reference Range Interpretation Comments MCV (test code = MCV) 101.2 80.0-98.0 [facility] HospitalMqhlqhkPUVVSTVVIB3972-22-29 10:36:00 Test Item Value Reference Range Interpretation Comments Hct (test code = Hct) 34.0 36.0-48.0 [facility] HospitalEorfdzoITTZUJRQHI9524-46-52 10:36:00 Test Item Value Reference Range Interpretation Comments RBC (test code = RBC) 3.36 4.20-5.40 [facility] [id number] 23:18:00 Test Item Value Reference Range Interpretation Comments Lactic Acid Lvl (test code = Lactic 0.4 0.5-2.2 Acid Lvl) [facility]2015-10-31 23:18:00 Test Item Value Reference Range Interpretation Comments Lactic Acid Lvl (test code = Lactic 0.4 0.5-2.2 Acid Lvl) [facility]2015-10-31 22:34:00 Test Item Value Reference Range Interpretation Comments U Phencyc Scr (test Negative *NA*(04/27/15 code = U Phencyc Scr) 5:34 PM) [facility] [id number] 22:34:00 Test Item Value Reference Range Interpretation Comments U Opiate Scr (test Positive *ABN*(04/27/15 code = U Opiate Scr) 5:34 PM) [facility] [id number] 22:34:00 Test Item Value Reference Range Interpretation Comments UDS Note (test code = See Note (04/27/15 5:34 UDS Note) PM) [facility]2015-10-31 22:34:00 Test Item Value Reference Range Interpretation Comments U Cocaine Scr (test Negative *NA*(04/27/15 code = U Cocaine Scr) 5:34 PM) [facility] [id number] 22:34:00 Test Item Value Reference Range Interpretation Comments U Benzodia Scr (test Positive code = U Benzodia Scr) *ABN*(04/27/15 5:34 PM) [facility] [id number] 22:34:00 Test Item Value Reference Range Interpretation Comments U Amph Scr (test code Negative *NA*(04/27/15 = U Amph Scr) 5:34 PM) [facility] [id number] 22:34:00 Test Item Value Reference Range Interpretation Comments U Cannab Scr (test Positive *ABN*(04/27/15 code = U Cannab Scr) 5:34 PM) [facility] [id number] 22:34:00 Test Item Value Reference Range Interpretation Comments U Solange Scr (test code Negative *NA*(04/27/15 = U Solange Scr) 5:34 PM) [facility] [id number] 22:34:00 Test Item Value Reference Range Interpretation Comments UA Bacteria (test code = UA Occasional /HPF Bacteria) [facility] [id number] 22:34:00 Test Item Value Reference Range Interpretation Comments UA RBC (test code = 0-2 /HPF See_Comment [Automa mirna message] The UA RBC) system which ge nerated this result tra nsmitted reference range : <=2. The reference range was not used to interpr et this result as zahra l/abnormal. [facility] [id number] 22:34:00 Test Item Value Reference Range Interpretation Comments UA Protein (test code Negative (04/27/15 5:34 = UA Protein) PM) [facility] [id number] 22:34:00 Test Item Value Reference Range Interpretation Comments UA Urobilinogen (test code = UA 0.2 0.1-1.0 Urobilinogen) [facility] [id number] 22:34:00 Test Item Value Reference Range Interpretation Comments UA Blood (test code = Trace *ABN*(04/27/15 UA Blood) 5:34 PM) [facility] [id number] 22:34:00 Test Item Value Reference Range Interpretation Comments UA Nitrite (test code Negative (04/27/15 5:34 = UA Nitrite) PM) [facility] [id number] 22:34:00 Test Item Value Reference Range Interpretation Comments UA Bili (test code = Negative *NA*(04/27/15 UA Bili) 5:34 PM) [facility] [id number] 22:34:00 Test Item Value Reference Range Interpretation Comments UA Ketones (test code = UA Ketones) 15 mg/dL [facility] [id number] 22:34:00 Test Item Value Reference Range Interpretation Comments UA Glucose (test code Negative (04/27/15 5:34 = UA Glucose) PM) [facility] [id number] 22:34:00 Test Item Value Reference Range Interpretation Comments UA Sq Epi (test code = UA Sq Occasional /LPF Epi) [facility] AND [id number] 22:34:00 Test Item Value Reference Range Interpretation Comments UA Leuk Est (test Negative (04/27/15 5:34 code = UA Leuk Est) PM) [facility] [id number] 22:34:00 Test Item Value Reference Range Interpretation Comments UA WBC (test code = UA WBC) 0-2 /HPF [facility] AND [id number] 22:34:00 Test Item Value Reference Range Interpretation Comments UA pH (test code = UA pH) 7.0 1 5.0-8.0 [facility] AND [id number] 22:34:00 Test Item Value Reference Range Interpretation Comments UA Spec Grav (test code = UA Spec 1.010 1 Grav) [facility] [id number] 22:34:00 Test Item Value Reference Range Interpretation Comments UA Turbidity (test code = Clear (04/27/15 5:34 UA Turbidity) PM) [facility] [id number] 22:34:00 Test Item Value Reference Range Interpretation Comments UA Color (test code = Yellow *NA*(04/27/15 UA Color) 5:34 PM) [facility] [id number] 22:34:00 Test Item Value Reference Range Interpretation Comments U Phencyc Scr (test Negative *NA*(04/27/15 code = U Phencyc Scr) 5:34 PM) [facility] [id number] 22:34:00 Test Item Value Reference Range Interpretation Comments U Opiate Scr (test Positive *ABN*(04/27/15 code = U Opiate Scr) 5:34 PM) [facility] [id number] 22:34:00 Test Item Value Reference Range Interpretation Comments UDS Note (test code = See Note (04/27/15 5:34 UDS Note) PM) [facility] [id number] 22:34:00 Test Item Value Reference Range Interpretation Comments U Cocaine Scr (test Negative *NA*(04/27/15 code = U Cocaine Scr) 5:34 PM) [facility] [id number] 22:34:00 Test Item Value Reference Range Interpretation Comments U Benzodia Scr (test Positive code = U Benzodia Scr) *ABN*(04/27/15 5:34 PM) [facility] [id number] 22:34:00 Test Item Value Reference Range Interpretation Comments U Amph Scr (test code Negative *NA*(04/27/15 = U Amph Scr) 5:34 PM) [facility] [id number] 22:34:00 Test Item Value Reference Range Interpretation Comments U Cannab Scr (test Positive *ABN*(04/27/15 code = U Cannab Scr) 5:34 PM) [facility] [id number] 22:34:00 Test Item Value Reference Range Interpretation Comments U Solange Scr (test code Negative *NA*(04/27/15 = U Solange Scr) 5:34 PM) [facility] [id number] 22:34:00 Test Item Value Reference Range Interpretation Comments UA Bacteria (test code = UA Occasional /HPF Bacteria) [facility] [id number] 22:34:00 Test Item Value Reference Range Interpretation Comments UA RBC (test code = 0-2 /HPF See_Comment [Automa mirna message] The UA RBC) system which ge nerated this result tra nsmitted reference range : <=2. The reference range was not used to interpr et this result as zahra l/abnormal. [facility] [id number] 22:34:00 Test Item Value Reference Range Interpretation Comments UA Protein (test code Negative (04/27/15 5:34 = UA Protein) PM) [facility] AND [id number] 22:34:00 Test Item Value Reference Range Interpretation Comments UA Urobilinogen (test code = UA 0.2 0.1-1.0 Urobilinogen) [facility] AND [id number] 22:34:00 Test Item Value Reference Range Interpretation Comments UA Blood (test code = Trace *ABN*(04/27/15 UA Blood) 5:34 PM) [facility] AND [id number] 22:34:00 Test Item Value Reference Range Interpretation Comments UA Nitrite (test code Negative (04/27/15 5:34 = UA Nitrite) PM) [facility] AND [id number] 22:34:00 Test Item Value Reference Range Interpretation Comments UA Bili (test code = Negative *NA*(04/27/15 UA Bili) 5:34 PM) [facility] AND [id number] 22:34:00 Test Item Value Reference Range Interpretation Comments UA Ketones (test code = UA Ketones) 15 mg/dL [facility] AND [id number] 22:34:00 Test Item Value Reference Range Interpretation Comments UA Glucose (test code Negative (04/27/15 5:34 = UA Glucose) PM) [facility] AND [id number] 22:34:00 Test Item Value Reference Range Interpretation Comments UA Sq Epi (test code = UA Sq Occasional /LPF Epi) [facility] AND [id number] 22:34:00 Test Item Value Reference Range Interpretation Comments UA Leuk Est (test Negative (04/27/15 5:34 code = UA Leuk Est) PM) [facility] AND [id number] 22:34:00 Test Item Value Reference Range Interpretation Comments UA WBC (test code = UA WBC) 0-2 /HPF [facility] AND [id number] 22:34:00 Test Item Value Reference Range Interpretation Comments UA pH (test code = UA pH) 7.0 1 5.0-8.0 [facility] AND [id number] 22:34:00 Test Item Value Reference Range Interpretation Comments UA Spec Grav (test code = UA Spec 1.010 1 Grav) [facility] AND [id number] 22:34:00 Test Item Value Reference Range Interpretation Comments UA Turbidity (test code = Clear (04/27/15 5:34 UA Turbidity) PM) [facility] AND [id number] 22:34:00 Test Item Value Reference Range Interpretation Comments UA Color (test code = Yellow *NA*(04/27/15 UA Color) 5:34 PM) [facility]2015-10-31 15:40:00 Test Item Value Reference Range Interpretation Comments Amylase Lvl (test code = Amylase Lvl) 94 25-115 [facility]2015-10-31 15:40:00 Test Item Value Reference Range Interpretation Comments Lipase Lvl (test code = Lipase Lvl) 62 73-393 [facility]2015-10-31 15:40:00 Test Item Value Reference Range Interpretation Comments eGFR (test code = eGFR) 106 [facility]2015-10-31 15:40:00 Test Item Value Reference Range Interpretation Comments Bili Total (test code = Bili Total) 0.4 0.2-1.3 [facility]2015-10-31 15:40:00 Test Item Value Reference Range Interpretation Comments Alk Phos (test code = Alk Phos) 47 39-136 [facility]2015-10-31 15:40:00 Test Item Value Reference Range Interpretation Comments Globulin (test code = Globulin) 3.4 2.0-4.0 [facility]2015-10-31 15:40:00 Test Item Value Reference Range Interpretation Comments Albumin Lvl (test code = Albumin Lvl) 4.2 3.5-5.0 [facility]2015-10-31 15:40:00 Test Item Value Reference Range Interpretation Comments Total Protein (test code = Total 7.6 6.4-8.4 Protein) [facility]2015-10-31 15:40:00 Test Item Value Reference Range Interpretation Comments B/C Ratio (test code = B/C Ratio) 23 6-25 [facility]2015-10-31 15:40:00 Test Item Value Reference Range Interpretation Comments AST (test code = AST) 18 See_Comment [Auto mated message] The system which ge nerated this result transmit mirna reference range : <=37. The reference range was not used to interpr et this result as zahra l/abnormal. [facility]2015-10-31 15:40:00 Test Item Value Reference Range Interpretation Comments ALT (test code = ALT) 22 See_Comment [Auto mated message] The system which ge nerated this result transmit mirna reference range : <=65. The reference range was not used to interpr et this result as zahra l/abnormal. [facility]2015-10-31 15:40:00 Test Item Value Reference Range Interpretation Comments A/G Ratio (test code = A/G Ratio) 1.2 0.7-1.6 [facility]2015-10-31 15:40:00 Test Item Value Reference Range Interpretation Comments Chloride Lvl (test code = Chloride Lvl) 104 95-109 [facility]2015-10-31 15:40:00 Test Item Value Reference Range Interpretation Comments Potassium Lvl (test code = Potassium 2.8 3.5-5.1 Lvl) [facility]2015-10-31 15:40:00 Test Item Value Reference Range Interpretation Comments Creatinine Lvl (test code = Creatinine 0.7 0.5-1.4 Lvl) [facility]2015-10-31 15:40:00 Test Item Value Reference Range Interpretation Comments BUN (test code = BUN) 16 7-22 [facility]2015-10-31 15:40:00 Test Item Value Reference Range Interpretation Comments Sodium Lvl (test code = Sodium Lvl) 139 135-145 [facility]2015-10-31 15:40:00 Test Item Value Reference Range Interpretation Comments Calcium Lvl (test code = Calcium Lvl) 9.3 8.5-10.5 [facility]2015-10-31 15:40:00 Test Item Value Reference Range Interpretation Comments AGAP (test code = AGAP) 11.8 10.0-20.0 [facility]2015-10-31 15:40:00 Test Item Value Reference Range Interpretation Comments CO2 (test code = CO2) 26 24-32 [facility]2015-10-31 15:40:00 Test Item Value Reference Range Interpretation Comments Glucose Lvl (test code = Glucose Lvl) 106 70-99 [place] 36380015-10-31 15:40:00 Test Item Value Reference Range Interpretation Comments S Preg (test code = S Negative *NA*(04/27/15 Preg) 10:40 AM) [facility]QQWIYEQI7543[facility] 15:40:00 Test Item Value Reference Range Interpretation Comments Eosinophils (test code = 0.0 See_Comment [A utomated message] The Eosinophils) system which ge nerated this result tra nsmitted reference range : <=4.0. The reference r chuck was not used to int erpret this result as normal/abnormal . [facility]GdkzmkzQWESOUMBDS0208-12-28 15:40:00 Test Item Value Reference Range Interpretation Comments Basophils (test code = 0.2 See_Comment [Aut omated message] The Basophils) system which ge nerated this result tra nsmitted reference range : <=1.0. The reference r chuck was not used to int erpret this result as normal/abnormal . [facility] HospitalYmesofsUFUOXAUFHQ3026-58-33 15:40:00 Test Item Value Reference Range Interpretation Comments Segs-Bands # (test code = Segs-Bands #) 11.8 1.5-8.1 [facility] Hospit[id number] 15:40:00 Test Item Value Reference Range Interpretation Comments RBC Morph (test code = Normal (04/27/15 10:40 RBC Morph) AM) [facility] HospitalAtqnekxJQAEMBUMTD7128-81-01 15:40:00 Test Item Value Reference Range Interpretation Comments Plt Morph (test code = Normal (04/27/15 10:40 Plt Morph) AM) [facility] HospitalZxwakraJOZCZIJKSQ2505-03-62 15:40:00 Test Item Value Reference Range Interpretation Comments Segs (test code = Segs) 81.9 45.0-75.0 [facility] HospitalVcjahybGGCEFGMHFD0620-94-60 15:40:00 Test Item Value Reference Range Interpretation Comments Eosinophils # (test code 0.0 See_Comment [A utomated message] The = Eosinophils #) system whic h generated this result tra nsmitted reference range : <=0.5. The reference r chuck was not used to int erpret this result as normal/abnormal . [facility] HospitalIwigfsuIVMZHAMCTA6728-79-50 15:40:00 Test Item Value Reference Range Interpretation Comments Basophils # (test code 0.0 See_Comment [Aut omated message] The = Basophils #) system which generated this result tra nsmitted reference range : <=0.2. The reference r chuck was not used to int erpret this result as normal/abnormal . [facility] HospitalWtwtyeeAODTPVTLVO4191-38-01 15:40:00 Test Item Value Reference Range Interpretation Comments Lymphocytes # (test code = Lymphocytes 1.7 1.0-5.5 #) [facility] HospitalLeztzwxNJLFCTTRNO4445-34-22 15:40:00 Test Item Value Reference Range Interpretation Comments Monocytes # (test code 0.9 See_Comment [Aut omated message] The = Monocytes #) system which generated this result tra nsmitted reference range : <=0.8. The reference r chuck was not used to int erpret this result as normal/abnormal . [facility] HospitalMwqtruzAAESTXBVEA0515-52-57 15:40:00 Test Item Value Reference Range Interpretation Comments Monocytes (test code = Monocytes) 6.3 2.0-12.0 [facility] HospitalEixjfnlFWAIMOOGAE2149-83-03 15:40:00 Test Item Value Reference Range Interpretation Comments Lymphocytes (test code = Lymphocytes) 11.6 20.0-40.0 [facility] HospitalTmqngjjCRGVFNNJWC6925-79-54 15:40:00 Test Item Value Reference Range Interpretation Comments RDW (test code = RDW) 13.5 11.5-14.5 [facility] HospitalPaqziaiRYONIWIWEA8481-32-84 15:40:00 Test Item Value Reference Range Interpretation Comments MCHC (test code = MCHC) 33.2 32.0-36.0 [facility] HospitalMfidpeeHVDDGHCHXX7909-13-10 15:40:00 Test Item Value Reference Range Interpretation Comments MPV (test code = MPV) 8.2 7.4-10.4 [facility] HospitalYtpzapsFCRZIEJSXC0544-22-42 15:40:00 Test Item Value Reference Range Interpretation Comments Platelet (test code = Platelet) 294 133-450 [facility] HospitalDfxpiasSADSPZRCPQ4142-44-67 15:40:00 Test Item Value Reference Range Interpretation Comments MCV (test code = MCV) 98.9 80.0-98.0 [facility] HospitalHnbaxvhUADBCPDLGH3458-80-42 15:40:00 Test Item Value Reference Range Interpretation Comments MCH (test code = MCH) 32.8 pg 27.0-31.0 [facility] HospitalAudlepcIQANUSPJRK5084-30-89 15:40:00 Test Item Value Reference Range Interpretation Comments RBC (test code = RBC) 3.67 4.20-5.40 [facility] HospitalLcspiiwCKSKLNDUSY7302-88-76 15:40:00 Test Item Value Reference Range Interpretation Comments Hgb (test code = Hgb) 12.0 12.0-16.0 [facility] HospitalQqtnpvxCQLVOLSDUX3615-06-06 15:40:00 Test Item Value Reference Range Interpretation Comments Hct (test code = Hct) 36.3 36.0-48.0 [facility] HospitalFkrhmtbJNZYOSXADZ1697-51-21 15:40:00 Test Item Value Reference Range Interpretation Comments WBC (test code = WBC) 14.4 3.7-10.4 [facility]2015-10-31 15:40:00 Test Item Value Reference Range Interpretation Comments Amylase Lvl (test code = Amylase Lvl) 94 25-115 [facility]2015-10-31 15:40:00 Test Item Value Reference Range Interpretation Comments Lipase Lvl (test code = Lipase Lvl) 62 73-393 [facility]2015-10-31 15:40:00 Test Item Value Reference Range Interpretation Comments eGFR (test code = eGFR) 106 [facility]2015-10-31 15:40:00 Test Item Value Reference Range Interpretation Comments Bili Total (test code = Bili Total) 0.4 0.2-1.3 [facility]2015-10-31 15:40:00 Test Item Value Reference Range Interpretation Comments Alk Phos (test code = Alk Phos) 47 39-136 [facility]2015-10-31 15:40:00 Test Item Value Reference Range Interpretation Comments Globulin (test code = Globulin) 3.4 2.0-4.0 [facility]2015-10-31 15:40:00 Test Item Value Reference Range Interpretation Comments Albumin Lvl (test code = Albumin Lvl) 4.2 3.5-5.0 [facility]2015-10-31 15:40:00 Test Item Value Reference Range Interpretation Comments Total Protein (test code = Total 7.6 6.4-8.4 Protein) [facility]2015-10-31 15:40:00 Test Item Value Reference Range Interpretation Comments B/C Ratio (test code = B/C Ratio) 23 6-25 [facility]2015-10-31 15:40:00 Test Item Value Reference Range Interpretation Comments AST (test code = AST) 18 See_Comment [Auto mated message] The system which ge nerated this result transmit mirna reference range : <=37. The reference range was not used to interpr et this result as zahra l/abnormal. [facility]2015-10-31 15:40:00 Test Item Value Reference Range Interpretation Comments ALT (test code = ALT) 22 See_Comment [Auto mated message] The system which ge nerated this result transmit mirna reference range : <=65. The reference range was not used to interpr et this result as zahra l/abnormal. [facility]2015-10-31 15:40:00 Test Item Value Reference Range Interpretation Comments A/G Ratio (test code = A/G Ratio) 1.2 0.7-1.6 [facility]2015-10-31 15:40:00 Test Item Value Reference Range Interpretation Comments Chloride Lvl (test code = Chloride Lvl) 104 95-109 [facility]2015-10-31 15:40:00 Test Item Value Reference Range Interpretation Comments Potassium Lvl (test code = Potassium 2.8 3.5-5.1 Lvl) [facility]2015-10-31 15:40:00 Test Item Value Reference Range Interpretation Comments Creatinine Lvl (test code = Creatinine 0.7 0.5-1.4 Lvl) [facility]2015-10-31 15:40:00 Test Item Value Reference Range Interpretation Comments BUN (test code = BUN) 16 7-22 [facility]2015-10-31 15:40:00 Test Item Value Reference Range Interpretation Comments Sodium Lvl (test code = Sodium Lvl) 139 135-145 [facility]2015-10-31 15:40:00 Test Item Value Reference Range Interpretation Comments Calcium Lvl (test code = Calcium Lvl) 9.3 8.5-10.5 [facility]2015-10-31 15:40:00 Test Item Value Reference Range Interpretation Comments AGAP (test code = AGAP) 11.8 10.0-20.0 [facility]2015-10-31 15:40:00 Test Item Value Reference Range Interpretation Comments CO2 (test code = CO2) 26 24-32 [facility]2015-10-31 15:40:00 Test Item Value Reference Range Interpretation Comments Glucose Lvl (test code = Glucose Lvl) 106 70-99 [place] 36380015-10-31 15:40:00 Test Item Value Reference Range Interpretation Comments S Preg (test code = S Negative *NA*(04/27/15 Preg) 10:40 AM) [facility] HospitalG[id number] 15:40:00 Test Item Value Reference Range Interpretation Comments Eosinophils (test code = 0.0 See_Comment [A utomated message] The Eosinophils) system which ge nerated this result tra nsmitted reference range : <=4.0. The reference r chuck was not used to int erpret this result as normal/abnormal . [facility] HospitalPqxhjqnDVAAVLBFPP3255-17-50 15:40:00 Test Item Value Reference Range Interpretation Comments Basophils (test code = 0.2 See_Comment [Aut omated message] The Basophils) system which ge nerated this result tra nsmitted reference range : <=1.0. The reference r chuck was not used to int erpret this result as normal/abnormal . [facility] HospitalPevqqtkJKXCFWKAQJ1927-99-08 15:40:00 Test Item Value Reference Range Interpretation Comments Segs-Bands # (test code = Segs-Bands #) 11.8 1.5-8.1 [facility] HospitalWtvfynnIRLMYXETPF4764-93-29 15:40:00 Test Item Value Reference Range Interpretation Comments RBC Morph (test code = Normal (04/27/15 10:40 RBC Morph) AM) [facility] HospitalQztmlwzOQNYQQXECI9387-44-11 15:40:00 Test Item Value Reference Range Interpretation Comments Plt Morph (test code = Normal (04/27/15 10:40 Plt Morph) AM) [facility] HospitalUganjrjCZKQXKQCDI0673-74-92 15:40:00 Test Item Value Reference Range Interpretation Comments Segs (test code = Segs) 81.9 45.0-75.0 [facility] HospitalEubjeabMPLUDKIYOE9276-63-04 15:40:00 Test Item Value Reference Range Interpretation Comments Eosinophils # (test code 0.0 See_Comment [A utomated message] The = Eosinophils #) system whic h generated this result tra nsmitted reference range : <=0.5. The reference r chuck was not used to int erpret this result as normal/abnormal . [facility] HospitalGinbhmlWCHDSFKSWD3725-15-42 15:40:00 Test Item Value Reference Range Interpretation Comments Basophils # (test code 0.0 See_Comment [Aut omated message] The = Basophils #) system which generated this result tra nsmitted reference range : <=0.2. The reference r chuck was not used to int erpret this result as normal/abnormal . [facility] HospitalLwitwcrSTPTAPCXJL8281-15-47 15:40:00 Test Item Value Reference Range Interpretation Comments Lymphocytes # (test code = Lymphocytes 1.7 1.0-5.5 #) [facility] HospitalCwbfpmlKCTNGAMIRJ0892-49-25 15:40:00 Test Item Value Reference Range Interpretation Comments Monocytes # (test code 0.9 See_Comment [Aut omated message] The = Monocytes #) system which generated this result tra nsmitted reference range : <=0.8. The reference r chuck was not used to int erpret this result as normal/abnormal . [facility] HospitalSrisndkWMIDQIPTMT2387-01-98 15:40:00 Test Item Value Reference Range Interpretation Comments Monocytes (test code = Monocytes) 6.3 2.0-12.0 [facility] HospitalGfimtdhHERXCLPYFY3466-08-24 15:40:00 Test Item Value Reference Range Interpretation Comments Lymphocytes (test code = Lymphocytes) 11.6 20.0-40.0 [facility] HospitalAshpswzLJUTGRRSZA5081-85-41 15:40:00 Test Item Value Reference Range Interpretation Comments RDW (test code = RDW) 13.5 11.5-14.5 [facility] HospitalSugcwblCMXRYVGQAB9701-08-97 15:40:00 Test Item Value Reference Range Interpretation Comments MCHC (test code = MCHC) 33.2 32.0-36.0 [facility] HospitalKzkirnbQMKPYZCBHD6716-96-37 15:40:00 Test Item Value Reference Range Interpretation Comments MPV (test code = MPV) 8.2 7.4-10.4 [facility] HospitalNlzwzvvZDYYOLDAVE0760-31-93 15:40:00 Test Item Value Reference Range Interpretation Comments Platelet (test code = Platelet) 294 133-450 [facility] HospitalXnbppbwRDTUJDYLUF0091-14-90 15:40:00 Test Item Value Reference Range Interpretation Comments MCV (test code = MCV) 98.9 80.0-98.0 [facility]xcaiuKROFGZPECH4889-11-01 15:40:00 Test Item Value Reference Range Interpretation Comments MCH (test code = MCH) 32.8 pg 27.0-31.0 [facility]KjeebeoPMNOUSBBDP7607-68-15 15:40:00 Test Item Value Reference Range Interpretation Comments RBC (test code = RBC) 3.67 4.20-5.40 [facility]ThrztcvVLZJJUVSOF8174-57-98 15:40:00 Test Item Value Reference Range Interpretation Comments Hgb (test code = Hgb) 12.0 12.0-16.0 [facility] HospitalYbvgpulDZHGENQMDN8022-60-26 15:40:00 Test Item Value Reference Range Interpretation Comments Hct (test code = Hct) 36.3 36.0-48.0 [facility] HospitalBksstrgPFPTTOHHGY4089-48-71 15:40:00 Test Item Value Reference Range Interpretation Comments WBC (test code = WBC) 14.4 3.7-10.4 [facility] [id number] 16:45:00 Test Item Value Reference Range Interpretation Comments UA Hyal Cast 3-5 (10/22/14 See_Comment [Automated mes leonel] (test code = UA 11:45 AM) The system w [employer] Hyal Cast) generated this result transmitted ref erence range: <=2. The reference range was not used to int erpret this result as normal/abnormal . [facility] [id number] 16:45:00 Test Item Value Reference Range Interpretation Comments UA Urobilinogen (test code = UA 0.2 0.1-1.0 Urobilinogen) [facility] [id number] 16:45:00 Test Item Value Reference Range Interpretation Comments UA Nitrite (test code Negative (10/22/14 11:45 = UA Nitrite) AM) [facility] [id number] 16:45:00 Test Item Value Reference Range Interpretation Comments UA Bili (test code = Small *ABN*(10/22/14 UA Bili) 11:45 AM) [facility] [id number] 16:45:00 Test Item Value Reference Range Interpretation Comments UA Blood (test code = Negative (10/22/14 11:45 UA Blood) AM) [facility] [id number] 16:45:00 Test Item Value Reference Range Interpretation Comments UA Ketones (test code Negative *NA*(10/22/14 = UA Ketones) 11:45 AM) [facility] AND [id number] 16:45:00 Test Item Value Reference Range Interpretation Comments UA Turbidity (test code Slight Cloudy = UA Turbidity) (10/22/14 11:45 AM) [facility] AND [id number] 16:45:00 Test Item Value Reference Range Interpretation Comments UA Spec Grav (test code = UA Spec 1.025 1 Grav) [facility] AND [id number] 16:45:00 Test Item Value Reference Range Interpretation Comments UA pH (test code = UA pH) 6.0 1 5.0-8.0 [facility] AND [id number] 16:45:00 Test Item Value Reference Range Interpretation Comments UA Protein (test code = Trace *ABN*(10/22/14 UA Protein) 11:45 AM) [facility] AND [id number] 16:45:00 Test Item Value Reference Range Interpretation Comments UA Glucose (test code Negative (10/22/14 11:45 = UA Glucose) AM) [facility] AND [id number] 16:45:00 Test Item Value Reference Range Interpretation Comments UA WBC (test code = UA WBC) 0-2 /HPF [facility] AND [id number] 16:45:00 Test Item Value Reference Range Interpretation Comments UA RBC (test code = 0-2 /HPF See_Comment [Automa mirna message] The UA RBC) system which ge nerated this result tra nsmitted reference range : <=2. The reference range was not used to interpr et this result as zahra l/abnormal. [facility] AND [id number] 16:45:00 Test Item Value Reference Range Interpretation Comments UA Bacteria (test code = UA Few /HPF Bacteria) [facility] AND [id number] 16:45:00 Test Item Value Reference Range Interpretation Comments UA Leuk Est (test Negative (10/22/14 11:45 code = UA Leuk Est) AM) [facility] AND [id number] 16:45:00 Test Item Value Reference Range Interpretation Comments UA Sq Epi (test code = UA Sq Moderate /LPF Epi) [facility] [id number] 16:45:00 Test Item Value Reference Range Interpretation Comments UA Color (test code = Yellow *NA*(10/22/14 UA Color) 11:45 AM) [facility] [id number] 16:45:00 Test Item Value Reference Range Interpretation Comments UA Hyal Cast 3-5 (10/22/14 See_Comment [Automated mes leonel] (test code = UA 11:45 AM) The system w [facility] Hyal [employer]) generated this result transmitted ref erence range: <=2. The reference range was not used to int erpret this result as normal/abnormal . [facility] [id number] 16:45:00 Test Item Value Reference Range Interpretation Comments UA Urobilinogen (test code = UA 0.2 0.1-1.0 Urobilinogen) [facility] [id number] 16:45:00 Test Item Value Reference Range Interpretation Comments UA Nitrite (test code Negative (10/22/14 11:45 = UA Nitrite) AM) [facility] [id number] 16:45:00 Test Item Value Reference Range Interpretation Comments UA Bili (test code = Small *ABN*(10/22/14 UA Bili) 11:45 AM) [facility] [id number] 16:45:00 Test Item Value Reference Range Interpretation Comments UA Blood (test code = Negative (10/22/14 11:45 UA Blood) AM) [facility] [id number] 16:45:00 Test Item Value Reference Range Interpretation Comments UA Ketones (test code Negative *NA*(10/22/14 = UA Ketones) 11:45 AM) [facility] [id number] 16:45:00 Test Item Value Reference Range Interpretation Comments UA Turbidity (test code Slight Cloudy = UA Turbidity) (10/22/14 11:45 AM) [facility] [id number] 16:45:00 Test Item Value Reference Range Interpretation Comments UA Spec Grav (test code = UA Spec 1.025 1 Grav) [facility] [id number] 16:45:00 Test Item Value Reference Range Interpretation Comments UA pH (test code = UA pH) 6.0 1 5.0-8.0 [facility] [id number] 16:45:00 Test Item Value Reference Range Interpretation Comments UA Protein (test code = Trace *ABN*(10/22/14 UA Protein) 11:45 AM) [facility] [id number] 16:45:00 Test Item Value Reference Range Interpretation Comments UA Glucose (test code Negative (10/22/14 11:45 = UA Glucose) AM) [facility] [id number] 16:45:00 Test Item Value Reference Range Interpretation Comments UA WBC (test code = UA WBC) 0-2 /HPF [facility] [id number] 16:45:00 Test Item Value Reference Range Interpretation Comments UA RBC (test code = 0-2 /HPF See_Comment [Automa mirna message] The UA RBC) system which ge nerated this result tra nsmitted reference range : <=2. The reference range was not used to interpr et this result as zahra l/abnormal. [facility] [id number] 16:45:00 Test Item Value Reference Range Interpretation Comments UA Bacteria (test code = UA Few /HPF Bacteria) [facility] [id number] 16:45:00 Test Item Value Reference Range Interpretation Comments UA Leuk Est (test Negative (10/22/14 11:45 code = UA Leuk Est) AM) [facility] [id number] 16:45:00 Test Item Value Reference Range Interpretation Comments UA Sq Epi (test code = UA Sq Moderate /LPF Epi) [facility] [id number] 16:45:00 Test Item Value Reference Range Interpretation Comments UA Color (test code = Yellow *NA*(10/22/14 UA Color) 11:45 AM) [facility]annCARD[facility]AC [id number] 16:33:00 Test Item Value Reference Range Interpretation Comments CK MB Index (test 1.2 See_Comment [Automate d message] The code = CK MB Index) system w [facility] generated this result transmit mirna reference range : <=2.5. The reference range was not used to interpr et this result as zahra l/abnormal. [facility] [employer] UKAC [id number] 16:33:00 Test Item Value Reference Range Interpretation Comments CK MB (test code = CK MB) 0.6 0.5-3.6 [facility] HospitalAdsWizzAC [id number] 16:33:00 Test Item Value Reference Range Interpretation Comments Troponin-I (test code no gt See_Comment [Auto mated message] The = Troponin-I) system which g enerated this result transmit mirna reference range : <=0.40. The reference r chuck was not used to interpr et this result as zahra l/abnormal. [facility] [employer] [id number] 16:33:00 Test Item Value Reference Range Interpretation Comments Total CK (test code = Total CK) 50 12-191 [facility] [id number] 16:33:00 Test Item Value Reference Range Interpretation Comments BNP (test code = BNP) 180 [facility] [employer]2015-04-27 16:33:00 Test Item Value Reference Range Interpretation Comments eGFR (test code = eGFR) 78 [facility] [employer] [id number] 16:33:00 Test Item Value Reference Range Interpretation Comments Globulin (test code = Globulin) 3.1 2.0-4.0 [facility] [employer] [id number] 16:33:00 Test Item Value Reference Range Interpretation Comments A/G Ratio (test code = A/G Ratio) 1.1 0.7-1.6 [facility] [employer]2015-04-27 16:33:00 Test Item Value Reference Range Interpretation Comments BUN (test code = BUN) 8 7-22 [facility] [employer] [id number] 16:33:00 Test Item Value Reference Range Interpretation Comments Glucose Lvl (test code = Glucose Lvl) 103 70-99 [facility] [employer]2015-04-27 16:33:00 Test Item Value Reference Range Interpretation Comments Sodium Lvl (test code = Sodium Lvl) 141 135-145 [facility] [id number] 16:33:00 Test Item Value Reference Range Interpretation Comments Creatinine Lvl (test code = Creatinine 0.9 0.5-1.4 Lvl) [facility] [employer]2015-04-27 16:33:00 Test Item Value Reference Range Interpretation Comments Potassium Lvl (test code = Potassium 3.5 3.5-5.1 Lvl) [facility] HospitalAltatechNOV[facility] [id number] 16:33:00 Test Item Value Reference Range Interpretation Comments CO2 (test code = CO2) 27 24-32 [facility]2015-04-27 16:33:00 Test Item Value Reference Range Interpretation Comments Chloride Lvl (test code = Chloride Lvl) 109 95-109 [facility]2015-04-27 16:33:00 Test Item Value Reference Range Interpretation Comments Total Protein (test code = Total 6.4 6.4-8.4 Protein) [facility]2015-04-27 16:33:00 Test Item Value Reference Range Interpretation Comments ALT (test code = ALT) 13 See_Comment [Auto mated message] The system which ge nerated this result transmit mirna reference range : <=65. The reference range was not used to interpr et this result as zahra l/abnormal. [facility]2015-04-27 16:33:00 Test Item Value Reference Range Interpretation Comments AST (test code = AST) 17 See_Comment [Auto mated message] The system which ge nerated this result transmit mirna reference range : <=37. The reference range was not used to interpr et this result as zahra l/abnormal. [facility]2015-04-27 16:33:00 Test Item Value Reference Range Interpretation Comments Alk Phos (test code = Alk Phos) 46 39-136 [facility]AltatechNOV[facility] MED[facility] CENTERLSPTW7649-59-02 16:33:00 Test Item Value Reference Range Interpretation Comments Calcium Lvl (test code = Calcium Lvl) 8.3 8.5-10.5 [facility]2015-04-27 16:33:00 Test Item Value Reference Range Interpretation Comments B/C Ratio (test code = B/C Ratio) 9 6-25 [facility]2015-04-27 16:33:00 Test Item Value Reference Range Interpretation Comments AGAP (test code = AGAP) 8.5 10.0-20.0 [facility]2015-04-27 16:33:00 Test Item Value Reference Range Interpretation Comments Albumin Lvl (test code = Albumin Lvl) 3.3 3.5-5.0 [facility]2015-04-27 16:33:00 Test Item Value Reference Range Interpretation Comments Bili Total (test code = Bili Total) 0.3 0.2-1.3 [facility] HospitalGuzbnwnQHEMDKCICX7666-15-47 16:33:00 Test Item Value Reference Range Interpretation Comments Segs (test code = Segs) 63.6 45.0-75.0 [facility] HospitalNnrrwfoGVFTDVRIXO2931-44-38 16:33:00 Test Item Value Reference Range Interpretation Comments Lymphocytes (test code = Lymphocytes) 22.9 20.0-40.0 [facility] HospitalPvqkdqqUOOIHCSVFZ5056-91-23 16:33:00 Test Item Value Reference Range Interpretation Comments Monocytes (test code = Monocytes) 8.2 2.0-12.0 [facility] HospitalVkjxfjnFMRALLAGVX1697-73-75 16:33:00 Test Item Value Reference Range Interpretation Comments Eosinophils (test code = 4.2 See_Comment [A utomated message] The Eosinophils) system which ge nerated this result tra nsmitted reference range : <=4.0. The reference r chuck was not used to int erpret this result as normal/abnormal . [facility] HospitalNybvholSRKKBBNTNP2354-46-55 16:33:00 Test Item Value Reference Range Interpretation Comments Basophils (test code = 1.1 See_Comment [Aut omated message] The Basophils) system which ge nerated this result tra nsmitted reference range : <=1.0. The reference r chuck was not used to int erpret this result as normal/abnormal . [facility] HospitalRtwchcdLKYXWCBUUY7370-68-14 16:33:00 Test Item Value Reference Range Interpretation Comments Segs-Bands # (test code = Segs-Bands #) 4.5 1.5-8.1 [facility] HospitalKboircrTWIDAHCKAJ6447-46-48 16:33:00 Test Item Value Reference Range Interpretation Comments Lymphocytes # (test code = Lymphocytes 1.6 1.0-5.5 #) [facility] HospitalSdialsoYRWYKOXBAI3399-92-40 16:33:00 Test Item Value Reference Range Interpretation Comments Monocytes # (test code 0.6 See_Comment [Aut omated message] The = Monocytes #) system which generated this result tra nsmitted reference range : <=0.8. The reference r chuck was not used to int erpret this result as normal/abnormal . [facility] HospitalFfsqinmXSGPMBZZPW4509-59-97 16:33:00 Test Item Value Reference Range Interpretation Comments Basophils # (test code 0.1 See_Comment [Aut omated message] The = Basophils #) system which generated this result tra nsmitted reference range : <=0.2. The reference r chuck was not used to int erpret this result as normal/abnormal . [facility] HospitalNfbkvjeKDYCWSJYMO4352-52-32 16:33:00 Test Item Value Reference Range Interpretation Comments Eosinophils # (test code 0.3 See_Comment [A utomated message] The = Eosinophils #) system whic h generated this result tra nsmitted reference range : <=0.5. The reference r chuck was not used to int erpret this result as normal/abnormal . [facility] HospitalNbxjmvpJIFYJUWHPX5082-46-44 16:33:00 Test Item Value Reference Range Interpretation Comments MCH (test code = MCH) 32.3 pg 27.0-31.0 [facility] HospitalSenoblyMJKMMGVDAZ4485-05-80 16:33:00 Test Item Value Reference Range Interpretation Comments MCHC (test code = MCHC) 33.5 32.0-36.0 [facility] HospitalCfcjrvxMYYIMLPYTY7374-81-19 16:33:00 Test Item Value Reference Range Interpretation Comments RDW (test code = RDW) 14.9 11.5-14.5 [facility] HospitalRdhlcduOBOGAPHMHP7361-53-92 16:33:00 Test Item Value Reference Range Interpretation Comments Platelet (test code = Platelet) 250 133-450 [facility] HospitalCzwbfrnFHMSVUGWSU8788-80-44 16:33:00 Test Item Value Reference Range Interpretation Comments MPV (test code = MPV) 7.1 7.4-10.4 [facility] HospitalLsvjqktLWCRAYCNSI1116-54-14 16:33:00 Test Item Value Reference Range Interpretation Comments RBC (test code = RBC) 2.92 4.20-5.40 [facility] HospitalTbwdggxZOGABHZPIC1999-22-65 16:33:00 Test Item Value Reference Range Interpretation Comments WBC (test code = WBC) 7.1 3.7-10.4 [facility] HospitalJyamvpiYQNKRPZHNS5709-79-58 16:33:00 Test Item Value Reference Range Interpretation Comments MCV (test code = MCV) 96.4 80.0-98.0 [facility] HospitalYpnllmtSRUWZRNAEO0067-25-29 16:33:00 Test Item Value Reference Range Interpretation Comments Hgb (test code = Hgb) 9.4 12.0-16.0 [facility] MulkrahFEUTRPHYNM1232-87-59 16:33:00 Test Item Value Reference Range Interpretation Comments Hct (test code = Hct) 28.2 36.0-48.0 [facility] HospitalHfvicokWIXSDMNGHS0545-75-02 16:33:00 Test Item Value Reference Range Interpretation Comments CDC HIV 4th GEN (test Negative (10/22/14 11:33 code = CDC HIV 4th AM) GEN) [facility] HospitalZtkpeikRZCNKCIIAG9370-95-30 16:33:00 Test Item Value Reference Range Interpretation Comments [place]-Hep C Ab (test Negative *NA*(10/22/14 code = [place]-Hep C 11:33 AM) Ab) [facility] HospitalannCARDIAC [id number] 16:33:00 Test Item Value Reference Range Interpretation Comments CK MB Index (test 1.2 See_Comment [Automate d message] The code = CK MB Index) system w [facility] generated this result transmit mirna reference range : <=2.5. The reference range was not used to interpr et this result as zahra l/abnormal. [facility] HospitalannCARDIAC [id number] 16:33:00 Test Item Value Reference Range Interpretation Comments CK MB (test code = CK MB) 0.6 0.5-3.6 [facility] HospitalannCARDIAC ZZVHGIO1586-77-10 16:33:00 Test Item Value Reference Range Interpretation Comments Troponin-I (test code no gt See_Comment [Auto mated message] The = Troponin-I) system which g enerated this result transmit mirna reference range : <=0.40. The reference r chuck was not used to interpr et this result as zahra l/abnormal. [facility]annC[facility] LOPGJMV4930-76-83 16:33:00 Test Item Value Reference Range Interpretation Comments Total CK (test code = Total CK) 50 12-191 [facility]annCARD[facility]AC [id number] 16:33:00 Test Item Value Reference Range Interpretation Comments BNP (test code = BNP) 180 [facility] [employer]annCHE[employer] [id number] 16:33:00 Test Item Value Reference Range Interpretation Comments eGFR (test code = eGFR) 78 [facility] [employer] [id number] 16:33:00 Test Item Value Reference Range Interpretation Comments Globulin (test code = Globulin) 3.1 2.0-4.0 [facility]2015-04-27 16:33:00 Test Item Value Reference Range Interpretation Comments A/G Ratio (test code = A/G Ratio) 1.1 0.7-1.6 [facility]2015-04-27 16:33:00 Test Item Value Reference Range Interpretation Comments BUN (test code = BUN) 8 7-22 [facility]2015-04-27 16:33:00 Test Item Value Reference Range Interpretation Comments Glucose Lvl (test code = Glucose Lvl) 103 70-99 [place] [id number] 16:33:00 Test Item Value Reference Range Interpretation Comments Sodium Lvl (test code = Sodium Lvl) 141 135-145 [place] 923305-04-27 16:33:00 Test Item Value Reference Range Interpretation Comments Creatinine Lvl (test code = Creatinine 0.9 0.5-1.4 Lvl) [facility]2015-04-27 16:33:00 Test Item Value Reference Range Interpretation Comments Potassium Lvl (test code = Potassium 3.5 3.5-5.1 Lvl) [facility]2015-04-27 16:33:00 Test Item Value Reference Range Interpretation Comments CO2 (test code = CO2) 27 24-32 [facility]2015-04-27 16:33:00 Test Item Value Reference Range Interpretation Comments Chloride Lvl (test code = Chloride Lvl) 109 95-109 [facility]2015-04-27 16:33:00 Test Item Value Reference Range Interpretation Comments Total Protein (test code = Total 6.4 6.4-8.4 Protein) [facility]2015-04-27 16:33:00 Test Item Value Reference Range Interpretation Comments ALT (test code = ALT) 13 See_Comment [Auto mated message] The system which ge nerated this result transmit mirna reference range : <=65. The reference range was not used to interpr et this result as zahra l/abnormal. [facility] [id number] 16:33:00 Test Item Value Reference Range Interpretation Comments AST (test code = AST) 17 See_Comment [Auto mated message] The system which ge nerated this result transmit mirna reference range : <=37. The reference range was not used to interpr et this result as zahra l/abnormal. [facility]2015-04-27 16:33:00 Test Item Value Reference Range Interpretation Comments Alk Phos (test code = Alk Phos) 46 39-136 [facility]2015-04-27 16:33:00 Test Item Value Reference Range Interpretation Comments Calcium Lvl (test code = Calcium Lvl) 8.3 8.5-10.5 [facility]2015-04-27 16:33:00 Test Item Value Reference Range Interpretation Comments B/C Ratio (test code = B/C Ratio) 9 6-25 [facility]2015-04-27 16:33:00 Test Item Value Reference Range Interpretation Comments AGAP (test code = AGAP) 8.5 10.0-20.0 [facility]2015-04-27 16:33:00 Test Item Value Reference Range Interpretation Comments Albumin Lvl (test code = Albumin Lvl) 3.3 3.5-5.0 [facility]2015-04-27 16:33:00 Test Item Value Reference Range Interpretation Comments Bili Total (test code = Bili Total) 0.3 0.2-1.3 [facility] HospitalDopsjptUPUYBGSGYM7305-83-94 16:33:00 Test Item Value Reference Range Interpretation Comments Segs (test code = Segs) 63.6 45.0-75.0 [facility] HospitalLmtensvFLGVEGGHAB1342-37-39 16:33:00 Test Item Value Reference Range Interpretation Comments Lymphocytes (test code = Lymphocytes) 22.9 20.0-40.0 [facility] HospitalCgwnyrbGFTSNECNTK8662-39-49 16:33:00 Test Item Value Reference Range Interpretation Comments Monocytes (test code = Monocytes) 8.2 2.0-12.0 [facility] HospitalFeqlnqcKGTESFIOEB5743-38-91 16:33:00 Test Item Value Reference Range Interpretation Comments Eosinophils (test code = 4.2 See_Comment [A utomated message] The Eosinophils) system which ge nerated this result tra nsmitted reference range : <=4.0. The reference r chuck was not used to int erpret this result as normal/abnormal . [place] 813965-04-27 16:33:00 Test Item Value Reference Range Interpretation Comments Basophils (test code = 1.1 See_Comment [Aut omated message] The Basophils) system which ge nerated this result tra nsmitted reference range : <=1.0. The reference r chuck was not used to int erpret this result as normal/abnormal . [facility] HospitalLcphomlZQKOCAVIIC5504-88-27 16:33:00 Test Item Value Reference Range Interpretation Comments Segs-Bands # (test code = Segs-Bands #) 4.5 1.5-8.1 [facility] HospitalLpsgiepKBFWTXCTIJ1052-17-54 16:33:00 Test Item Value Reference Range Interpretation Comments Lymphocytes # (test code = Lymphocytes 1.6 1.0-5.5 #) [facility] HospitalEsmvmmySOVBZEWFXC8476-01-65 16:33:00 Test Item Value Reference Range Interpretation Comments Monocytes # (test code 0.6 See_Comment [Aut omated message] The = Monocytes #) system which generated this result tra nsmitted reference range : <=0.8. The reference r chuck was not used to int erpret this result as normal/abnormal . [facility] HospitalHrgvomkWWPBBWURIM9659-28-19 16:33:00 Test Item Value Reference Range Interpretation Comments Basophils # (test code 0.1 See_Comment [Aut omated message] The = Basophils #) system which generated this result tra nsmitted reference range : <=0.2. The reference r chuck was not used to int erpret this result as normal/abnormal . [facility] HospitalBenglgkTXTAAQHYYY0361-00-33 16:33:00 Test Item Value Reference Range Interpretation Comments Eosinophils # (test code 0.3 See_Comment [A utomated message] The = Eosinophils #) system whic h generated this result tra nsmitted reference range : <=0.5. The reference r chuck was not used to int erpret this result as normal/abnormal . [facility] HospitalXoqmctdXZKSSNXREE3257-66-30 16:33:00 Test Item Value Reference Range Interpretation Comments MCH (test code = MCH) 32.3 pg 27.0-31.0 [facility] HospitalRuiliztZHYGBYTPWX2577-38-81 16:33:00 Test Item Value Reference Range Interpretation Comments MCHC (test code = MCHC) 33.5 32.0-36.0 [facility] HospitalJfeipyqNXVYRRFRQL8687-34-63 16:33:00 Test Item Value Reference Range Interpretation Comments RDW (test code = RDW) 14.9 11.5-14.5 [facility] HospitalVijrgubQQFEPIIJFI0366-18-32 16:33:00 Test Item Value Reference Range Interpretation Comments Platelet (test code = Platelet) 250 133-450 [facility] HospitalTwjdhdjBHJDJRYOBZ5443-79-40 16:33:00 Test Item Value Reference Range Interpretation Comments MPV (test code = MPV) 7.1 7.4-10.4 [facility] HospitalQupwxwmSINFMLRVGN7773-81-66 16:33:00 Test Item Value Reference Range Interpretation Comments RBC (test code = RBC) 2.92 4.20-5.40 [facility] HospitalZjqujarCREURTEUWI7793-03-76 16:33:00 Test Item Value Reference Range Interpretation Comments WBC (test code = WBC) 7.1 3.7-10.4 [facility] HospitalFbksapkYJBBUPARNT8175-76-85 16:33:00 Test Item Value Reference Range Interpretation Comments MCV (test code = MCV) 96.4 80.0-98.0 [facility] HospitalPnaffqxADPYYQUAMH4143-83-55 16:33:00 Test Item Value Reference Range Interpretation Comments Hgb (test code = Hgb) 9.4 12.0-16.0 [facility] HospitalBpfiqtuVHYWAICRJQ7498-86-21 16:33:00 Test Item Value Reference Range Interpretation Comments Hct (test code = Hct) 28.2 36.0-48.0 [facility]XzbueheHVEMXMRBAW6535-74-07 16:33:00 Test Item Value Reference Range Interpretation Comments CDC HIV 4th GEN (test Negative (10/22/14 11:33 code = CDC HIV 4th AM) GEN) [facility] HospitalZmgmaulUWCDEUDCMP6458-03-92 16:33:00 Test Item Value Reference Range Interpretation Comments [place]-Hep C Ab (test Negative *NA*(10/22/14 code = [place]-Hep C 11:33 AM) Ab) [facility]2015-01-23 05:26:00 Test Item Value Reference Range Interpretation Comments eGFR (test code = eGFR) 90 [facility]2015-01-23 05:26:00 Test Item Value Reference Range Interpretation Comments Chloride Lvl (test code = Chloride Lvl) 112 95-109 [facility]2015-01-23 05:26:00 Test Item Value Reference Range Interpretation Comments Creatinine Lvl (test code = Creatinine 0.8 0.5-1.4 Lvl) [facility]2015-01-23 05:26:00 Test Item Value Reference Range Interpretation Comments Potassium Lvl (test code = Potassium 3.8 3.5-5.1 Lvl) [facility]2015-01-23 05:26:00 Test Item Value Reference Range Interpretation Comments BUN (test code = BUN) 19 7-22 [facility]2015-01-23 05:26:00 Test Item Value Reference Range Interpretation Comments Sodium Lvl (test code = Sodium Lvl) 144 135-145 [facility]2015-01-23 05:26:00 Test Item Value Reference Range Interpretation Comments Glucose Lvl (test code = Glucose Lvl) 93 70-99 [facility]2015-01-23 05:26:00 Test Item Value Reference Range Interpretation Comments ALT (test code = ALT) 15 See_Comment [Auto mated message] The system which ge nerated this result transmit mirna reference range : <=65. The reference range was not used to interpr et this result as zahra l/abnormal. [facility]2015-01-23 05:26:00 Test Item Value Reference Range Interpretation Comments Bili Total (test code = Bili Total) 0.1 0.2-1.3 [facility]2015-01-23 05:26:00 Test Item Value Reference Range Interpretation Comments Alk Phos (test code = Alk Phos) 51 39-136 [facility]2015-01-23 05:26:00 Test Item Value Reference Range Interpretation Comments AST (test code = AST) 15 See_Comment [Auto mated message] The system which ge nerated this result transmit mirna reference range : <=37. The reference range was not used to interpr et this result as zahra l/abnormal. [facility]2015-01-23 05:26:00 Test Item Value Reference Range Interpretation Comments CO2 (test code = CO2) 26 24-32 [facility]2015-01-23 05:26:00 Test Item Value Reference Range Interpretation Comments Calcium Lvl (test code = Calcium Lvl) 8.9 8.5-10.5 [place] 923305-01-23 05:26:00 Test Item Value Reference Range Interpretation Comments Total Protein (test code = Total 7.0 6.4-8.4 Protein) [facility]2015-01-23 05:26:00 Test Item Value Reference Range Interpretation Comments Albumin Lvl (test code = Albumin Lvl) 3.7 3.5-5.0 [facility]2015-01-23 05:26:00 Test Item Value Reference Range Interpretation Comments B/C Ratio (test code = B/C Ratio) 24 6-25 [facility]2015-01-23 05:26:00 Test Item Value Reference Range Interpretation Comments Globulin (test code = Globulin) 3.3 2.0-4.0 [facility]2015-01-23 05:26:00 Test Item Value Reference Range Interpretation Comments A/G Ratio (test code = A/G Ratio) 1.1 0.7-1.6 [facility]2015-01-23 05:26:00 Test Item Value Reference Range Interpretation Comments AGAP (test code = AGAP) 9.8 10.0-20.0 [facility] HospitalDiszjoeDKRQJXZRCK2208-39-60 05:26:00 Test Item Value Reference Range Interpretation Comments Monocytes (test code = Monocytes) 7.8 2.0-12.0 [facility] HospitalNchchdlWYIJLSALEG6846-34-10 05:26:00 Test Item Value Reference Range Interpretation Comments Segs (test code = Segs) 44.5 45.0-75.0 [facility] HospitalWqpethrROIMFDIXWC3291-79-16 05:26:00 Test Item Value Reference Range Interpretation Comments Lymphocytes (test code = Lymphocytes) 40.5 20.0-40.0 [facility] HospitalJnlfzusLJISXTNMTO9595-02-14 05:26:00 Test Item Value Reference Range Interpretation Comments Eosinophils # (test code 0.4 See_Comment [A utomated message] The = Eosinophils #) system whic h generated this result tra nsmitted reference range : <=0.5. The reference r chuck was not used to int erpret this result as normal/abnormal . [facility] HospitalIrelzauTEQLNSEAIR6259-80-53 05:26:00 Test Item Value Reference Range Interpretation Comments Monocytes # (test code 0.6 See_Comment [Aut omated message] The = Monocytes #) system which generated this result tra nsmitted reference range : <=0.8. The reference r chuck was not used to int erpret this result as normal/abnormal . [facility] HospitalHasacyrGSCVILAVXK5671-57-03 05:26:00 Test Item Value Reference Range Interpretation Comments Lymphocytes # (test code = Lymphocytes 2.9 1.0-5.5 #) [facility] HospitalKaafwokSRDZBBVOUE0662-67-39 05:26:00 Test Item Value Reference Range Interpretation Comments Segs-Bands # (test code = Segs-Bands #) 3.1 1.5-8.1 [facility] HospitalRnpcgsdLGJYLLILND1893-51-11 05:26:00 Test Item Value Reference Range Interpretation Comments Eosinophils (test code = 5.0 See_Comment [A utomated message] The Eosinophils) system which ge nerated this result tra nsmitted reference range : <=4.0. The reference r chuck was not used to int erpret this result as normal/abnormal . [facility] HospitalLsxguwfRNQKJIKHIL6889-10-98 05:26:00 Test Item Value Reference Range Interpretation Comments Basophils (test code = 2.2 See_Comment [Aut omated message] The Basophils) system which ge nerated this result tra nsmitted reference range : <=1.0. The reference r chuck was not used to int erpret this result as normal/abnormal . [facility] HospitalYvcicbfENAVVCJVBX0139-66-43 05:26:00 Test Item Value Reference Range Interpretation Comments Basophils # (test code 0.2 See_Comment [Aut omated message] The = Basophils #) system which generated this result tra nsmitted reference range : <=0.2. The reference r chukc was not used to int erpret this result as normal/abnormal . [facility] HospitalEjdesytQFHPDLMPMU2061-96-38 05:26:00 Test Item Value Reference Range Interpretation Comments RBC (test code = RBC) 3.64 4.20-5.40 [facility] HospitalTrirvffQAQPFHRHPC3504-15-94 05:26:00 Test Item Value Reference Range Interpretation Comments Hgb (test code = Hgb) 11.6 12.0-16.0 [facility] HospitalOgbsbfkPELJDBPOQW2055-69-33 05:26:00 Test Item Value Reference Range Interpretation Comments Platelet (test code = Platelet) 264 133-450 [facility] HospitalAkovllhWEPEFVOMQX5194-42-21 05:26:00 Test Item Value Reference Range Interpretation Comments RDW (test code = RDW) 14.0 11.5-14.5 [facility] HospitalKywwutzBGCIUMWRXF8620-15-48 05:26:00 Test Item Value Reference Range Interpretation Comments MCHC (test code = MCHC) 32.9 32.0-36.0 [facility] HospitalHfzchnaIGQVVDVGJS5228-87-56 05:26:00 Test Item Value Reference Range Interpretation Comments WBC (test code = WBC) 7.0 3.7-10.4 [facility] HospitalHsxxcpyDCVRCPMCET8805-24-63 05:26:00 Test Item Value Reference Range Interpretation Comments MCV (test code = MCV) 97.0 80.0-98.0 [facility] HospitalEcrmidvNPCURDAFIH6214-79-12 05:26:00 Test Item Value Reference Range Interpretation Comments MCH (test code = MCH) 31.9 pg 27.0-31.0 [facility] [id number] 05:26:00 Test Item Value Reference Range Interpretation Comments Hct (test code = Hct) 35.3 36.0-48.0 [id number] 05:26:00 Test Item Value Reference Range Interpretation Comments MPV (test code = MPV) 7.6 7.4-10.4 [facility] AND [id number] 05:26:00 Test Item Value Reference Range Interpretation Comments UA Leuk Est (test Negative (07/19/14 11:26 code = UA Leuk Est) PM) [facility] AND [id number] 05:26:00 Test Item Value Reference Range Interpretation Comments UA Nitrite (test code Negative (07/19/14 11:26 = UA Nitrite) PM) [facility] AND [id number] 05:26:00 Test Item Value Reference Range Interpretation Comments UA pH (test code = UA pH) 6.0 1 5.0-8.0 [facility] AND [id number] 05:26:00 Test Item Value Reference Range Interpretation Comments UA Spec Grav (test >=1.030 *ABN*(07/19/14 code = UA Spec Grav) 11:26 PM) [facility] AND [id number] 05:26:00 Test Item Value Reference Range Interpretation Comments UA Turbidity (test code Slight Cloudy = UA Turbidity) (07/19/14 11:26 PM) [facility] AND [id number] 05:26:00 Test Item Value Reference Range Interpretation Comments UA Color (test code = Yellow *NA*(07/19/14 UA Color) 11:26 PM) [facility] AND [id number] 05:26:00 Test Item Value Reference Range Interpretation Comments UA Bili (test code = Small *ABN*(07/19/14 UA Bili) 11:26 PM) [facility] AND [id number] 05:26:00 Test Item Value Reference Range Interpretation Comments UA Protein (test code = Trace *ABN*(07/19/14 UA Protein) 11:26 PM) [facility] AND [id number] 05:26:00 Test Item Value Reference Range Interpretation Comments UA Ketones (test code = Trace *ABN*(07/19/14 UA Ketones) 11:26 PM) [facility] AND [id number] 05:26:00 Test Item Value Reference Range Interpretation Comments UA Glucose (test code Negative (07/19/14 11:26 = UA Glucose) PM) [facility] AND [id number] 05:26:00 Test Item Value Reference Range Interpretation Comments UA Sq Epi (test code = UA Sq Epi) Few /LPF [facility] AND [id number] 05:26:00 Test Item Value Reference Range Interpretation Comments UA WBC (test code = UA WBC) 3-5 /HPF [facility] AND [id number] 05:26:00 Test Item Value Reference Range Interpretation Comments UA RBC (test code = 0-2 /HPF See_Comment [Automa mirna message] The UA RBC) system which ge nerated this result tra nsmitted reference range : <=2. The reference range was not used to interpr et this result as zahra l/abnormal. [facility] AND [id number] 05:26:00 Test Item Value Reference Range Interpretation Comments UA Urobilinogen (test code = UA 0.2 0.1-1.0 Urobilinogen) [facility] AND [id number] 05:26:00 Test Item Value Reference Range Interpretation Comments UA Blood (test code = Negative (07/19/14 11:26 UA Blood) PM) [facility] AND [id number] 05:26:00 Test Item Value Reference Range Interpretation Comments UA Bacteria (test code = UA Few /HPF Bacteria) [facility] AND [id number] 05:26:00 Test Item Value Reference Range Interpretation Comments UA Mucus (test code = UA Mucus) Few /LPF [facility]2015-01-23 05:26:00 Test Item Value Reference Range Interpretation Comments eGFR (test code = eGFR) 90 [facility]2015-01-23 05:26:00 Test Item Value Reference Range Interpretation Comments Chloride Lvl (test code = Chloride Lvl) 112 95-109 [facility]2015-01-23 05:26:00 Test Item Value Reference Range Interpretation Comments Creatinine Lvl (test code = Creatinine 0.8 0.5-1.4 Lvl) [facility]2015-01-23 05:26:00 Test Item Value Reference Range Interpretation Comments Potassium Lvl (test code = Potassium 3.8 3.5-5.1 Lvl) [facility]2015-01-23 05:26:00 Test Item Value Reference Range Interpretation Comments BUN (test code = BUN) 19 7-22 [facility]2015-01-23 05:26:00 Test Item Value Reference Range Interpretation Comments Sodium Lvl (test code = Sodium Lvl) 144 135-145 [facility]2015-01-23 05:26:00 Test Item Value Reference Range Interpretation Comments Glucose Lvl (test code = Glucose Lvl) 93 70-99 [facility]2015-01-23 05:26:00 Test Item Value Reference Range Interpretation Comments ALT (test code = ALT) 15 See_Comment [Auto mated message] The system which ge nerated this result transmit mirna reference range : <=65. The reference range was not used to interpr et this result as zahra l/abnormal. [facility]2015-01-23 05:26:00 Test Item Value Reference Range Interpretation Comments Bili Total (test code = Bili Total) 0.1 0.2-1.3 [facility]2015-01-23 05:26:00 Test Item Value Reference Range Interpretation Comments Alk Phos (test code = Alk Phos) 51 39-136 [facility]2015-01-23 05:26:00 Test Item Value Reference Range Interpretation Comments AST (test code = AST) 15 See_Comment [Auto mated message] The system which ge nerated this result transmit mirna reference range : <=37. The reference range was not used to interpr et this result as zahra l/abnormal. [facility]2015-01-23 05:26:00 Test Item Value Reference Range Interpretation Comments CO2 (test code = CO2) - [facility]2015-01-23 05:26:00 Test Item Value Reference Range Interpretation Comments Calcium Lvl (test code = Calcium Lvl) 8.9 8.5-10.5 [facility]2015-01-23 05:26:00 Test Item Value Reference Range Interpretation Comments Total Protein (test code = Total 7.0 6.4-8.4 Protein) [facility]2015-01-23 05:26:00 Test Item Value Reference Range Interpretation Comments Albumin Lvl (test code = Albumin Lvl) 3.7 3.5-5.0 [facility]2015-01-23 05:26:00 Test Item Value Reference Range Interpretation Comments B/C Ratio (test code = B/C Ratio) 19 12- [facility]2015-01-23 05:26:00 Test Item Value Reference Range Interpretation Comments Globulin (test code = Globulin) 3.3 2.0-4.0 [facility]2015-01-23 05:26:00 Test Item Value Reference Range Interpretation Comments A/G Ratio (test code = A/G Ratio) 1.1 0.7-1.6 [facility]2015-01-23 05:26:00 Test Item Value Reference Range Interpretation Comments AGAP (test code = AGAP) 9.8 10.0-20.0 [facility] H[id number] 05:26:00 Test Item Value Reference Range Interpretation Comments Monocytes (test code = Monocytes) 7.8 2.0-12.0 [facility] H[id number] 05:26:00 Test Item Value Reference Range Interpretation Comments Segs (test code = Segs) 44.5 45.0-75.0 [facility] H[id number] 05:26:00 Test Item Value Reference Range Interpretation Comments Lymphocytes (test code = Lymphocytes) 40.5 20.0-40.0 [facility] Hos[id number] 05:26:00 Test Item Value Reference Range Interpretation Comments Eosinophils # (test code 0.4 See_Comment [A utomated message] The = Eosinophils #) system wh h generated this result tra nsmitted reference range : <=0.5. The reference r chuck was not used to int erpret this result as normal/abnormal . [facility] H[id number] 05:26:00 Test Item Value Reference Range Interpretation Comments Monocytes # (test code 0.6 See_Comment [Aut omated message] The = Monocytes #) system which generated this result tra nsmitted reference range : <=0.8. The reference r chuck was not used to int erpret this result as normal/abnormal . [facility] Ho[id number] 05:26:00 Test Item Value Reference Range Interpretation Comments Lymphocytes # (test code = Lymphocytes 2.9 1.0-5.5 #) [facility] Hos[id number] 05:26:00 Test Item Value Reference Range Interpretation Comments Segs-Bands # (test code = Segs-Bands #) 3.1 1.5-8.1 [facility] H[id number] 05:26:00 Test Item Value Reference Range Interpretation Comments Eosinophils (test code = 5.0 See_Comment [A utomated message] The Eosinophils) system which ge nerated this result tra nsmitted reference range : <=4.0. The reference r chuck was not used to int erpret this result as normal/abnormal . [facility] H[id number] 05:26:00 Test Item Value Reference Range Interpretation Comments Basophils (test code = 2.2 See_Comment [Aut omated message] The Basophils) system which ge nerated this result tra nsmitted reference range : <=1.0. The reference r chuck was not used to int erpret this result as normal/abnormal . [facility] H[id number] 05:26:00 Test Item Value Reference Range Interpretation Comments Basophils # (test code 0.2 See_Comment [Aut omated message] The = Basophils #) system which generated this result tra nsmitted reference range : <=0.2. The reference r chuck was not used to int erpret this result as normal/abnormal . [facility] H[id number] 05:26:00 Test Item Value Reference Range Interpretation Comments RBC (test code = RBC) 3.64 4.20-5.40 [facility] HospitalYmcutvmDPEZTXZCWQ6923-06-53 05:26:00 Test Item Value Reference Range Interpretation Comments Hgb (test code = Hgb) 11.6 12.0-16.0 [facility] Hospit[id number] 05:26:00 Test Item Value Reference Range Interpretation Comments Platelet (test code = Platelet) 264 133-450 [facility] Hos[id number] 05:26:00 Test Item Value Reference Range Interpretation Comments RDW (test code = RDW) 14.0 11.5-14.5 [facility] HospitalZmchwymHUBANBRSIF0672-28-31 05:26:00 Test Item Value Reference Range Interpretation Comments MCHC (test code = MCHC) 32.9 32.0-36.0 [facility] HospitalQjwoaezCKCPPQYMMO3289-29-33 05:26:00 Test Item Value Reference Range Interpretation Comments WBC (test code = WBC) 7.0 3.7-10.4 [facility] Hospit[id number] 05:26:00 Test Item Value Reference Range Interpretation Comments MCV (test code = MCV) 97.0 80.0-98.0 [facility] Hos[id number] 05:26:00 Test Item Value Reference Range Interpretation Comments MCH (test code = MCH) 31.9 pg 27.0-31.0 [facility] H[id number] 05:26:00 Test Item Value Reference Range Interpretation Comments Hct (test code = Hct) 35.3 36.0-48.0 [facility] H[id number] 05:26:00 Test Item Value Reference Range Interpretation Comments MPV (test code = MPV) 7.6 7.4-10.4 [facility]2015-01-23 05:26:00 Test Item Value Reference Range Interpretation Comments UA Leuk Est (test Negative (07/19/14 11:26 code = UA Leuk Est) PM) [facility]2015-01-23 05:26:00 Test Item Value Reference Range Interpretation Comments UA Nitrite (test code Negative (07/19/14 11:26 = UA Nitrite) PM) [facility] AND [id number] 05:26:00 Test Item Value Reference Range Interpretation Comments UA pH (test code = UA pH) 6.0 1 5.0-8.0 [facility] AND [id number] 05:26:00 Test Item Value Reference Range Interpretation Comments UA Spec Grav (test >=1.030 *ABN*(07/19/14 code = UA Spec Grav) 11:26 PM) [facility] AND [id number] 05:26:00 Test Item Value Reference Range Interpretation Comments UA Turbidity (test code Slight Cloudy = UA Turbidity) (07/19/14 11:26 PM) [facility] AND [id number] 05:26:00 Test Item Value Reference Range Interpretation Comments UA Color (test code = Yellow *NA*(07/19/14 UA Color) 11:26 PM) [facility] AND [id number] 05:26:00 Test Item Value Reference Range Interpretation Comments UA Bili (test code = Small *ABN*(07/19/14 UA Bili) 11:26 PM) [facility] AND [id number] 05:26:00 Test Item Value Reference Range Interpretation Comments UA Protein (test code = Trace *ABN*(07/19/14 UA Protein) 11:26 PM) [facility] AND [id number] 05:26:00 Test Item Value Reference Range Interpretation Comments UA Ketones (test code = Trace *ABN*(07/19/14 UA Ketones) 11:26 PM) [facility] AND [id number] 05:26:00 Test Item Value Reference Range Interpretation Comments UA Glucose (test code Negative (07/19/14 11:26 = UA Glucose) PM) [facility] AND [id number] 05:26:00 Test Item Value Reference Range Interpretation Comments UA Sq Epi (test code = UA Sq Epi) Few /LPF [facility] AND [id number] 05:26:00 Test Item Value Reference Range Interpretation Comments UA WBC (test code = UA WBC) 3-5 /HPF [facility] AND [id number] 05:26:00 Test Item Value Reference Range Interpretation Comments UA RBC (test code = 0-2 /HPF See_Comment [Automa mirna message] The UA RBC) system which ge nerated this result tra nsmitted reference range : <=2. The reference range was not used to interpr et this result as zahra l/abnormal. [facility] AND [id number] 05:26:00 Test Item Value Reference Range Interpretation Comments UA Urobilinogen (test code = UA 0.2 0.1-1.0 Urobilinogen) [facility] AND [id number] 05:26:00 Test Item Value Reference Range Interpretation Comments UA Blood (test code = Negative (07/19/14 11:26 UA Blood) PM) [facility] AND [id number] 05:26:00 Test Item Value Reference Range Interpretation Comments UA Bacteria (test code = UA Few /HPF Bacteria) [facility] AND [id number] 05:26:00 Test Item Value Reference Range Interpretation Comments UA Mucus (test code = UA Mucus) Few /LPF [facility]
[2022-05-10] MEDS ORDERED: NA CHLORIDE 0.9% 1,000 ML ONE (17:32)
[2022-05-10 17:37] LABS: Absolute Lymphocytes (CBC) 2.5 K/uL (0.7-4.9); Hematocrit 33.4 % (36.0-45.0); Lymphocytes % 31.5 % (15.3-44.8); MCV 95.8 fL (80-100); MPV 7.3 fL (7.6-11.3); RBC Red Blood Cell Count 3.49 M/uL (3.86-4.86)
[2022-05-10 18:05] LABS: Albumin 3.7 g/dL (3.4-5.0); Bilirubin Total 0.3 mg/dL (0.2-1.0)
[2022-05-10] MEDS ORDERED: DICYCLOMINE HCL 20 MG/2 ML AMP IM ONE (18:06)
[2022-05-10] MEDS ORDERED: METOCLOPRAMIDE 10 MG/2mL INJ ONE (18:06)
[2022-05-10 18:07] LABS: Potassium 2.7 mmol/L (3.5-5.1)
[2022-05-10] MEDS ORDERED: NA CHLORIDE 0.9% 50 ML IV ONE (18:08)
[2022-05-10] MEDS ORDERED: POTASSIUM CL SA 10 MEQ TAB PO ONE (18:30)
[2022-05-10] MEDS ORDERED: KCL 20 MEQ/100 mL IVPB 100 ML IV ONE (18:31)
[2022-05-10] MEDS ORDERED: ACETAMINOPHEN 500 MG TAB PO PRN (18:46)
[2022-05-10] MEDS ORDERED: SODIUM CHLORIDE 0.9% 10ML INJ IV PRN (18:46)
[2022-05-10 18:51] LABS: Urine Blood Negative (Negative); Urine Glucose Negative (Negative); Urine Protein Trace (Negative); Urine Specific Gravity 1.025 (1.005-1.030)
[2022-05-10] MEDS ORDERED: NA CHLORIDE 0.9% 250 ML ONE (18:56)
[2022-05-10] MEDS ORDERED: D5.45NS W/KCL 40MEQ 40 MEQ/1,000 ML BAG IV SCH (19:00)
--- NOTE | 2022-05-10 19:13 | RAD REPORT ---
EXAM DESCRIPTION: RAD - Abdomen 1 View (KUB) - 05/10/2022 6:59 pm CLINICAL HISTORY: ABD PAIN COMPARISON: Abdomen Pelvis W Contrast dated 05/07/2022 FINDINGS: Nonobstructive bowel gas pattern. No acute osseous abnormality.Visualized lungs are unrema rkable.No abnormal calcifications. Mild formed stool of the hepatic flexure. IMPRESSION: Nonobstructive bowel gas pattern.
--- NOTE | 2022-05-10 19:15 | EDPHYS ---
Physician Documentation [facility] Name: Margie Garcia Age: 51 yrs Sex: Female : 1970 Arrival Date: 05/10/2022 Time: 16:24 Bed 16 Private MD: MORA Physician Mike Willson HPI: 05/10 19:33 This 51 yrs old Female presents to ER via Ambulatory with complaints of Abnormal Lab kb Results. 19:34 The patient presents to the emergency department with nausea, vomiting. Onset: The kb symptoms/episode began/occurred 3 day(s) ago. Possible causes: unknown. The symptoms are aggravated by nothing. The symptoms are alleviated by nothing. Associated signs and symptoms: Pertinent positives: nausea, vomiting. Severity of symptoms: At their worst the symptoms were moderate in the emergency department the symptoms are unchanged. The patient has not experienced similar symptoms in the past. The patient has been recently been admitted at [facility], was discharged yesterday. Pt reports Dr Baltazar called to check on her after discharge and she informed him that she is vomiting again and is unable to tolerate po intake so he told her to come back. Historical: - Allergies: 17:00 Imitrex; vg1 - Home Meds: 17:00 carvedilol oral [Active]; Clonidine Oral [Active]; Xanax Oral [Active]; vg1 - PMHx: 17:00 Hypertension; Migraines; Anxiety; vg1 - PSHx: 17:00 None; vg1 - Immunization history:: Client reports receiving the 2nd dose of the Covid vaccine. - Social history:: Smoking status: Patient reports the use of cigarette tobacco products, 5 cigarettes/day, Reported history of juuling and/or vaping. ROS: 19:33 Constitutional: Negative for fever, chills, and weight loss. kb 19:33 Abdomen/GI: Positive for nausea and vomiting. 19:33 All other systems are negative. Exam: 19:33 Constitutional: This is a well developed, well nourished patient who is awake, alert, kb and in no acute distress. Head/Face: Normocephalic, atraumatic. ENT: Moist Mucous membranes Cardiovascular: Regular rate and rhythm with a normal S1 and S2. No gallops, murmurs, or rubs. No pulse deficits. Respiratory: Respirations even and unlabored. No increased work of breathing. Talking in full sentences Skin: Warm, dry with normal turgor. Normal color. MS/ Extremity: Pulses equal, no cyanosis. Neurovascular intact. Full, normal range of motion. Neuro: Awake and alert, GCS 15, oriented to person, place, time, and situation. Moves all extremities. Normal gait. 19:33 Abdomen/GI: Inspection: abdomen appears normal, Bowel sounds: normal, Palpation: soft, in all quadrants, mild abdominal tenderness, in all quadrants. Vital Signs: 16:57 BP 112 / 81; Pulse 75; Resp 17; Temp 98.8(O); Pulse Ox 100% on R/A; Weight 55.34 kg; vg1 Height 5 ft. 5 in. (165.10 cm); Pain 8/10; 18:20 BP 128 / 83; Pulse 72; Resp 16; Pulse Ox 100% ; kb3 16:57 Body Mass Index 20.30 (55.34 kg, 165.10 cm) vg1 MDM: 17:11 Patient medically screened. kb 19:32 Data reviewed: vital signs, nurses notes. Data interpreted: Pulse oximetry: on room air kb is 100 %. Interpretation: normal. Counseling: I had a detailed discussion with the patient and/or guardian regarding: the historical points, exam findings, and any diagnostic results supporting the discharge/admit diagnosis, lab results, radiology results, the need for further work-up and treatment in the hospital. 19:33 Physician consultation: Dylan Baltazar MD regarding admission, to the medical/surgical kb unit. and will see patient in inpatient room. 19:33 Physician consultation: Dee DYSON regarding admission, and will see patient kb in ED. 05/10 17:12 Order name: CBC with Diff; Complete Time: 17:59 kb 05/10 17:12 Order name: CMP kb 05/10 17:46 Order name: Lipase; Complete Time: 20:59 la1 05/10 18:51 Order name: Urine Dipstick-Ancillary; Complete Time: 18:51 EDMS 05/10 19:11 Order name: Basic Metabolic Panel EDMS 05/10 19:12 Order name: Basic Metabolic Panel EDMS 05/10 19:12 Order name: CBC with Automated Diff EDMS 05/10 19:12 Order name: CBC with Automated Diff EDMS 05/10 19:12 Order name: Potassium EDMS 05/10 19:12 Order name: Potassium EDMS 05/10 19:14 Order name: SARS RAPID kb 05/10 19:27 Order name: Add On-Lab snw 05/10 21:20 Order name: Magnesium la1 05/10 22:37 Order name: Magnesium EDMS 05/10 17:12 Order name: IV Start; Complete Time: 18:03 kb 05/10 17:12 Order name: Urine Dipstick-Ancillary (obtain specimen); Complete Time: 18:51 kb 05/10 18:11 Order name: Abdomen 1 View (KUB) XRAY; Complete Time: 19:14 la1 05/10 19:11 Order name: Clear Liquid EDMS 05/10 19:11 Order name: EKG Electrocardiogram EDMS 05/10 19:11 Order name: EKG Electrocardiogram EDMS Administered Medications: 17:20 Drug: NS 0.9% 1000 ml Route: IV; Rate: 1000 ml; Site: right upper arm; kb3 18:15 Drug: Reglan (metoCLOPramide) 10 mg Route: IVP; Site: right upper arm; kb3 18:19 Drug: Bentyl (dicyclomine) 20 mg Route: IM; Site: left gluteus; kb3 18:34 Drug: Potassium Chloride 40 mEq Route: PO; kb3 19:33 Drug: Potassium Chloride 20 mEq {Note: left thumb.} Route: IV; Rate: calculated rate; kb3 Site: Other; 19:33 Drug: NS 0.9% 250 ml {Note: left thumb .} Route: IV; Rate: bolus; Site: Other; kb3 Disposition Summary: 05/10/22 19:14 Hospitalization Ordered Hospitalization Status: Observation kb Provider: Dylan Baltazar Condition: Stable kb Problem: new kb Symptoms: are unchanged kb Bed/Room Type: Standard kb Location: [facility] ER HOLD(05/10/22 20:12) Room Assignment: ERHOLD-(05/10/22 20:12) cg Diagnosis - Nausea with vomiting, unspecified kb - Hypokalemia kb Forms: - Medication Reconciliation Form kb - SBAR form kb Addendum: 05/14/2022 09:35 Co-signature as Attending Physician, Mike Willson MD I agree with the assessment and c flynn plan of care. Signatures: Dispatcher [employer] Blank Helm, PLANS EXAMINER-C LYNDA-Mike Buchanan MD MD cha Attema, Lee, LYNDA-C LYNDA-Erin Brenner, RN RN cg Angelica Figueroa RN RN vg1 Lucita Velez RN RN kb3 Corrections: (The following items were deleted from the chart) 05/10 20:12 19:14 Telemetry/MedSurg (observation) [facility] 20: 19:14 [facility]
--- NOTE | 2022-05-10 19:15 | ER ---
Nurse's Notes [facility] Name: Margie Garcia Age: 51 yrs Sex: Female : 1970 Arrival Date: 05/10/2022 Time: 16:24 Bed 16 Private MD: Diagnosis: Nausea with vomiting, unspecified;Hypokalemia Presentation: 05/10 16:57 Chief complaint: Patient states: Vomiting since 05/07/22; was seen in ED on 05/08/22 vg1 and admitted by Dr Angel and d/c on 05/09/22. Pt has not stopped vomiting since and gave update to Dr Ramirez and was told to come back to ED for further evaluation. Coronavirus screen: Vaccine status: Patient reports receiving the 2nd dose of the covid vaccine. Ebola Screen: Patient negative for fever greater than or equal to 101.5 degrees Fahrenheit, and additional compatible Ebola Virus Disease symptoms. Initial Sepsis Screen: Does the patient meet any 2 criteria? No. Patient's initial sepsis screen is negative. Does the patient have a suspected source of infection? No. Patient's initial sepsis screen is negative. Risk Assessment: Do you want to hurt yourself or someone else? Patient reports no desire to harm self or others. Onset of symptoms was May 10, 2022. 16:57 Method Of Arrival: Ambulatory vg1 16:57 Acuity: BHARAT 3 vg1 Triage Assessment: 17:00 General: Appears in no apparent distress. uncomfortable, Behavior is calm, cooperative. vg1 Pain: Complains of pain in right lower quadrant and left lower quadrant Pain currently is 8 out of 10 on a pain scale. GI: Reports intolerance of fluids, nausea. Historical: - Allergies: 17:00 Imitrex; vg1 - Home Meds: 17:00 carvedilol oral [Active]; Clonidine Oral [Active]; Xanax Oral [Active]; vg1 - PMHx: 17:00 Hypertension; Migraines; Anxiety; vg1 - PSHx: 17:00 None; vg1 - Immunization history:: Client reports receiving the 2nd dose of the Covid vaccine. - Social history:: Smoking status: Patient reports the use of cigarette tobacco products, 5 cigarettes/day, Reported history of juuling and/or vaping. Screenin:41 Abuse screen: Denies threats or abuse. Denies injuries from another. Nutritional kb3 screening: No deficits noted. Tuberculosis screening: No symptoms or risk factors identified. Fall Risk None identified. Assessment: 17:02 Reassessment: pt drinking soda in triage. vg1 17:41 General: Appears in no apparent distress. comfortable, Behavior is calm, cooperative, kb3 Received care of pt from triage. Pt is AAO x4. NAD noted. Gait steady. Pt reports she was discharged 2 days ago after being admitted for abdominal pain, N/V. Pt reports she had "not quit vomiting since I got home on Wednesday" and that she was instructed to return to ED by Dr Baltazar. Pt reports that she continues to have severe abdominal pain "where my hernia is.". GI: Reports lower abdominal pain, upper abdominal pain, nausea, vomiting. 18:19 Reassessment: No changes from previously documented assessment. Neuro: Level of kb3 Consciousness is awake, alert, obeys commands, Oriented to person, place, time, situation. Cardiovascular: Patient's skin is warm and dry. Respiratory: Airway is patent Respiratory effort is even, unlabored. : No signs and/or symptoms were reported regarding the genitourinary system. EENT: No signs and/or symptoms were reported regarding the EENT system. Derm: Skin is pink, warm \\T\\ dry. Musculoskeletal: Circulation, motion, and sensation intact. 19:06 Reassessment: received VO from PA Brock to administer NS 250mL IV X1 with Potassium. kb3 Vital Signs: 16:57 BP 112 / 81; Pulse 75; Resp 17; Temp 98.8(O); Pulse Ox 100% on R/A; Weight 55.34 kg; vg1 Height 5 ft. 5 in. (165.10 cm); Pain 8/10; 18:20 BP 128 / 83; Pulse 72; Resp 16; Pulse Ox 100% ; kb3 16:57 Body Mass Index 20.30 (55.34 kg, 165.10 cm) vg1 ED Course: 16:24 Patient arrived in ED. as 16:28 [facility]C [facility] kb 16:28 Mike Willson MD is Attending Physician. kb 17:00 Triage completed. vg1 17:00 Arm band placed on. vg1 17:03 Lucita Velez, RN is Primary Nurse. kb3 17:15 No provider procedures requiring assistance completed. Inserted saline lock: 22 gauge kb3 in right upper arm, using aseptic technique. Blood collected. 17:41 Patient has correct armband on for positive identification. Bed in low position. Warm kb3 blanket given. 19:01 Abdomen 1 View (KUB) XRAY In Process Unspecified. EDMS 19:14 Dylan Baltazar MD is Hospitalizing Provider. kb 19:32 IV discontinued. kb3 19:32 Inserted saline lock: 22 gauge in left ,using aseptic technique. thumb. kb3 Administered Medications: 17:20 Drug: NS 0.9% 1000 ml Route: IV; Rate: 1000 ml; Site: right upper arm; kb3 18:15 Drug: Reglan (metoCLOPramide) 10 mg Route: IVP; Site: right upper arm; kb3 18:19 Drug: Bentyl (dicyclomine) 20 mg Route: IM; Site: left gluteus; kb3 18:34 Drug: Potassium Chloride 40 mEq Route: PO; kb3 19:33 Drug: Potassium Chloride 20 mEq {Note: left thumb.} Route: IV; Rate: calculated rate; kb3 Site: Other; 19:33 Drug: NS 0.9% 250 ml {Note: left thumb .} Route: IV; Rate: bolus; Site: Other; kb3 Medication: 17:41 VIS not applicable for this client. kb3 Outcome: 19:14 Decision to Hospitalize by Provider. kb 23:07 Patient left the ED. la1 Signatures: Dispatcher [employer] EDMS Blank Harding, SHEETROCK APPLICATOR-C LYNDA-Flora Covarrubias Lee SHEETROCK APPLICATOR-C SHEETROCK APPLICATOR-Angelica Brenner, RN RN vg1 Lucita Velez, RN RN kb3 Corrections: (The following items were deleted from the chart) 18:19 08:15 Reglan (metoCLOPramide) 10 mg IVP in right antecubital kb3 kb3
--- NOTE | 2022-05-10 19:16 | P.HP ---
Certification for Inpatient With expected LOS: <2 Midnights Patient will require the following post-hospital care: None Practitioner: I am a practitioner with admitting privileges, knowledge of patient current condition, hospital course, and medical plan of care. Services: Services provided to patient in accordance with Admission requirements found in Title 42 Section 412.3 of the Code of Federal Regulations Patient History Date of Service: 05/10/22 Primary Care Provider: none Reason for admission: Hypokalemia History of Present Illness: Ms. Garcia was admitted earlier in the week for hypokalemia. Pt was contacted today per Dr. Baltazar to check on her post discharge yesterday. Ms. Garcia stated that she was unable to hold down any nutrition and he encouraged her to return to reevaluate her potassium. On assessment in the ED, potassium was 2.7. She will be admitted for electrolyte replenishment. Allergies sumatriptan [From Imitrex] Allergy (Verified 10/07/19 16:20) Hives Home medications list reviewed: Yes Home Medications: Citalopram Hydrobromide [Celexa] 40 mg PO BEDTIME 10/07/19 Gabapentin 600 mg PO BIDP PRN 10/07/19 Trazodone [Desyrel*] 200 mg PO BEDTIME 10/07/19 Alprazolam [Xanax] 2 mg PO BID PRN #6 10/12/19 carvediloL [Coreg*] 25 mg PO BID tab 10/12/19 cloNIDine HCL [Catapres*] 0.3 mg PO TID tablet 10/12/19 Rizatriptan Benzoate [Rizatriptan] 10 mg PO DAILY PRN 05/08/22 Topiramate [Topamax] 50 mg PO DAILY PRN 05/08/22 Ondansetron [Ondansetron Odt] 4 mg PO Q8H PRN 7 Days #20 tab 05/09/22 Promethazine Tab [Phenergan] 12.5 mg PO Q8H PRN 7 Days #20 tab 05/09/22 - Past Medical/Surgical History Has patient received pneumonia vaccine in the past: No Diabetic: No -: Hypertension -: Migraine -: Back pain -: None Psychosocial/ Personal History: Patient lives at home with her son - Family History Family History: Reviewed- Non-Contributory - Family History Father -: Hypertension, Other (see notes) Notes: migraines Mother -: Hypertension, Other (see notes) Notes: migraines - Social History Alcohol use: No CD- Drugs: Yes Caffeine use: Yes Review of Systems General: As per HPI Eyes: Unremarkable ENT: Unremarkable Respiratory: Unremarkable Cardiovascular: Unremarkable Gastrointestinal: Nausea, Vomiting, Other (right inguinal hernia, reduced in ED this week. Pt states she was able to reduce it again yesterday) Genitourinary: Unremarkable Musculoskeletal: Unremarkable Integumentary: Unremarkable Neurological: Unremarkable Physical Examination - Vital Signs Temperature: 98 F Blood Pressure: 110/65 Pulse: 86 Respirations: 20 Pulse Ox (%): 98 - Physical Exam General: Alert, In no apparent distress, Oriented x3 HEENT: Atraumatic, Normocephalic Neck: Supple, 2+ carotid pulse no bruit Respiratory: Clear to auscultation bilaterally, Normal air movement Cardiovascular: No edema, Normal pulses Capillary refill: <2 Seconds Gastrointestinal: Normal bowel sounds (mild tenderness to right inguinal area) Musculoskeletal: No clubbing, No swelling Integumentary: No rashes, No breakdown - Studies Laboratory Data (last 24 hrs) 05/10/22 17:26: Sodium 142, Potassium 2.7 L*, BUN 31 H, Creatinine 1.01, Glucose 90, Total Bilirubin 0.3, AST 14 L, ALT 18, Alkaline Phosphatase 52 05/10/22 17:26: WBC 8.00, Hgb 11.5 L, Hct 33.4 L, Plt Count 254 Assessment and Plan - Problems (Diagnosis) (1) Hypokalemia due to excessive gastrointestinal loss of potassium Current Visit: Yes Status: Acute Discharge Plan: Home Plan to discharge in: 24 Hours - Advance Directives Does patient have a Living Will: No Does patient have a Durable POA for Healthcare: No - Code Status/Comfort Care Code Status Assessed: Yes Code Status: Full Code Critical Care: No Time Spent Managing Pts Care (In Minutes): 35
[2022-05-10 19:20] VITALS: BP 110/65; TEMP 98
[2022-05-10] MEDS ORDERED: PANTOPRAZOLE 40 MG INJ IVP SCH (20:00)
[2022-05-10] MEDS ORDERED: ALPRAZOLAM 0.5 MG TABLET PO PRN (21:21)
[2022-05-10] MEDS ORDERED: ALPRAZOLAM 0.5 MG TABLET ONE (21:27)
[2022-05-10 21:46] VITALS: BMI 20.2
[2022-05-10 22:36] LABS: Magnesium 2.1 mg/dL (1.8-2.4)
[2022-05-10 23:12] VITALS: O2SAT 100
--- NOTE | 2022-05-11 01:15 | P.DS ---
Admission Date: 05/10/22 Discharge Date: 05/10/22 Primary Care Provider: none Disposition: AMA-LEFT AGAINST MEDICAL ADVIC Discharge Condition: FAIR Reason for Admission: Hypokalemia Procedures: EXAM DESCRIPTION: RAD - Abdomen 1 View (KUB) - 05/10/2022 6:59 pm CLINICAL HISTORY: ABD PAIN COMPARISON: Abdomen Pelvis W Contrast dated 05/07/2022 FINDINGS: Nonobstructive bowel gas pattern. No acute osseous abnorma lity.Visualized lungs are unremarkable.No abnormal calcifications. Mild formed stool of the hepatic flexure. IMPRESSION: Nonobstructive bowel gas pattern Brief History of Present Illness: Ms. Garcia was admitted earlier in the week for hypokalemia. Pt was contacted today per Dr. Baltazar to check on her post discharge yesterday. Ms. Garcia stated that she was unable to hold down any nutrition and he encouraged her to return to reevaluate her potassium. On assessment in the ED, potassium was 2.7. She will be admitted for electrolyte replenishment. Hospital Course: Patient was admitted for hypokalemia, vomiting. I was called by nursing staff as patient was requesting to leave AMA. Patient reported that she had her nurses discussing her care outside of her room which she felt was inappropriate and she wished to leave immediately, she stated there is nothing I can do to help convince her to stay. She signed AMA forms stated her mom was here to pick her up she was advised to return to the hospital immediately for any worsening in your condition, she verbalized understanding. Her potassium has been replaced, she seemed to be tolerating p.o. during her stay in the emergency department. She was advised of the risks of leaving AGAINST MEDICAL ADVICE. Vital Signs/Physical Exam: Temp Pulse Resp BP Pulse Ox 98 F 86 20 110/65 98 05/10/22 19:20 05/10/22 19:20 05/10/22 19:20 05/10/22 19:20 05/10/22 19:20 Laboratory Data at Discharge: WBC 8.00 K/uL (4.3-10.9) 05/10/22 17:26 Hgb 11.5 g/dL (12.0-15.0) L 05/10/22 17:26 Hct 33.4 % (36.0-45.0) L 05/10/22 17:26 Plt Count 254 K/uL (152-406) 05/10/22 17:26 Sodium 142 mmol/L (136-145) 05/10/22 17:26 Potassium 2.7 mmol/L (3.5-5.1) L* 05/10/22 17:26 BUN 31 mg/dL (7-18) H 05/10/22 17:26 Creatinine 1.01 mg/dL (0.55-1.3) 05/10/22 17:26 Glucose 90 mg/dL (74-106) 05/10/22 17:26 Magnesium Cancelled 05/10/22 21:20 Total Bilirubin 0.3 mg/dL (0.2-1.0) 05/10/22 17:26 AST 14 U/L (15-37) L 05/10/22 17:26 ALT 18 U/L (12-78) 05/10/22 17:26 Alkaline Phosphatase 52 U/L (45-117) 05/10/22 17:26 Lipase 56 U/L (73-393) L 05/10/22 17:26 Home Medications: Citalopram Hydrobromide [Celexa] 40 mg PO BEDTIME 10/07/19 Gabapentin 600 mg PO BIDP PRN 10/07/19 Trazodone [Desyrel*] 200 mg PO BEDTIME 10/07/19 Alprazolam [Xanax] 2 mg PO BID PRN #6 10/12/19 carvediloL [Coreg*] 25 mg PO BID tab 10/12/19 cloNIDine HCL [Catapres*] 0.3 mg PO TID tablet 10/12/19 Rizatriptan Benzoate [Rizatriptan] 10 mg PO DAILY PRN 05/08/22 Topiramate [Topamax] 50 mg PO DAILY PRN 05/08/22 Ondansetron [Ondansetron Odt] 4 mg PO Q8H PRN 7 Days #20 tab 05/09/22 Promethazine Tab [Phenergan] 12.5 mg PO Q8H PRN 7 Days #20 tab 05/09/22 Followup: NONE,NONE [Primary Care Provider] -
[2022-05-11] MEDS ORDERED: POTASSIUM 25 MEQ EFFERV TAB PO SCH (09:00)
== END 2022-05-10 23:10 | disposition left against medical advice (07) ==
LOC: ER 16:23 → ERHOLD 19:17
PROVIDERS: ADMIT Internal Medicine; ATTEND Hospitalist
DX: E87.6 Hypokalemia (principal); R11.2 Nausea with vomiting, unspecified; Z53.29 Procedure and treatment not carried out because of patient's decision for other reasons; F17.210 Nicotine dependence, cigarettes, uncomplicated; I10 Essential (primary) hypertension; G43.909 Migraine, unspecified, not intractable, without status migrainosus; F41.9 Anxiety disorder, unspecified
CPT/HCPCS: 85025; 36415; 83735; 81003; 83690; 80053; 74018; J2765; J0500; J3480; J7050; J7030; 96372; 99284; G0378

== ENCOUNTER 2023-05-11 23:35 | Inpatient (IN) | payer OTHER ==
[2023-05-11] MEDS ORDERED: METOCLOPRAMIDE 10 MG/2mL INJ ONE (23:57)
[2023-05-11] MEDS ORDERED: NA CHLORIDE 0.9% 2,000 ML ONE (23:58)
--- OUTSIDE RECORDS SUMMARY | 2023-05-12 00:05 | XMS REPORT | Continuity of Care Document ---
:1970 Author Organization [facility] [place] [facility] t Address [address] [facility] [address] [place] [address] Care Team Providers Name Role Phone Pcp, Patient Does Not Have A Primary Care Physician +1-000-0 00-0000 Neurology Attending Clinician Unavailable GODWIN REEVES Attending Clinician Unavailable Godwin Reeves MD Attending Clinician Earnestine Oneal MD Attending Clinician Bill ACHARYA, Leah Soto Attending Clinician THELMA CARREON Attending Clinician Unavailable Carlos Eduardo Drew MD Attending Clinician Thelma Carreon MD Attending Clinician EH DAUGHERTY Attending Clinician Unavailable Moises SPARROW, Pascale Rodas Attending Clinician Gary Orta MD Attending Clinician Eh Daugherty DO Attending Clinician ORAL Attending Clinician Unavailable Radha Vyas RN Attending Clinician Unavailable Mala Szymanski Attending Clinician Billy Tapia MD Attending Clinician BILLY TAPIA Attending Clinician Unavailable Francisco Jorge Attending Clinician DR CAS ERVIN I Attending Clinician Unavailable DR LESTER LANCASTER Attending Clinician Unavailable POSANI, DR DYLON Attending Clinician Unavailable DR PATI THOMAS Attending Clinician Unavailable CHRIS, MS ANDREW Payne Attending Clinician Unavailable Kiera Conley Attending Clinician Morgan Carreony Nani Attending Clinician Shashank Lopez Jessica Attending Clinician Adelia Meehan Attending Clinician Meng Bernard Attending Clinician Arvin Francisco Attending Clinician Sebastian Cheema Attending Clinician Eh Ruiz Attending Clinician Cari Leggett Attending Clinician Iram Lunsford Attending Clinician Deepak Ricardo Attending Clinician GODWIN REEVES Admitting Clinician Unavailable THELMA CARREON Admitting Clinician Unavailable Thelma Carreon MD Admitting Clinician GARY ORTA Admitting Clinician Unavailable Gary Orta MD Admitting Clinician ORAL Admitting Clinician Unavailable Billy Tapia MD Admitting Clinician BILLY TAPIA Admitting Clinician Unavailable DR CAS ERVIN I Admitting Clinician Unavailable DR LESTER LANCASTER Admitting Clinician Unavailable DR DYLON WEBSTER Admitting Clinician Unavailable DR PATI THOMAS Admitting Clinician Unavailable CHRIS, MS ANDREW Payne Admitting Clinician Unavailable Cari Leggett Admitting Clinician Payers Payer Name Policy Type Policy Number Effective Date Expiration Date S ource Problems Condition Condition Condition Status Onset Resolution Last Treating Co mments Source Name Details Category Date Date Treatment Clinician Date Dyslipidem Dyslipidem Disease Active U nivers ia ia 4-29 ity of 00:00: [place] [address] Medical Branch Nausea and Nausea and Disease Active 0 U nivers vomiting, vomiting, 4-27 ity of unspecifie [place] d vomiting 00 Me dical type type Branch Nondiabeti Nondiabeti Disease Active U nivers c c 3-19 ity of gastropare gastropare 00:[place] sis sis 00 Medical Branch Enterocoli Enterocoli Disease Active U nivers tis tis 5-17 ity of 00:00: [place] 00 Medical Branch Troponin I Troponin I Disease Active U nivers above above 5-17 [place] of [place] 00 [place] Other Other Disease Active Univers chest pain chest pain 5-17 it y of 00:00: [place] 00 Medical Branch Elevated Elevated Disease Active Unive rs brain brain 5-17 ity of natriureti natriureti [place] c peptide c peptide 00 Medi yessenia (BNP) (BNP) Branch level level Hypertensi Hypertensi Disease Active U nivers ve urgency ve urgency 5-17 it y of 00:00: [place] 00 Medical Branch Cigarette Cigarette Disease Active Uni vers smoker smoker 5-17 ity of 00:00: [place] 00 [facility] Branch Proctocoli Proctocoli Disease Active U nivers tis tis 5-16 ity of 00:00: [place] 00 Medical Branch HEADACHE HEADACHE Diagnosis Active 2016-062017-04-15 Memoria Active 0- 09:59:00 l 04/09/2017 00:00: Bill [place] M54.5 - M54.5 - Diagnosis Active 2017-02-28 Memoria LOW BACK LOW BACK 7- 15:41:00 l PAIN PAIN 00:01: [place] Active 00 01/18/2017 [facility] [place] RIB PAIN RIB PAIN Diagnosis Active 2015-062016-06-06 Memoria Active 08-07 11:37:00 l 06/06/2016 00:00: Bill [place] FALL FALL Diagnosis Active 2015-062016-06-05 Mem oria Active 08-06 20:56:00 l 06/05/2016 00:00: Bill [place] VOMITING VOMITING Diagnosis Active 2014-062015-04-27 Memoria Active 0- 15:30:00 l 04/27/2015 00:00: Bill [place] INTRACTIBL INTRACTIB Diagnosis Active 2014-062015-04-29 Memoria E VOMITING LE 14:11:00 l VOMITING 00:00: [place] Active 00 04/27/2015 [facility] [place] FOOT PAIN FOOT PAIN Diagnosis Active 2014-12-30 Memoria OR INJURY OR INJURY 12-30 17:20:00 l Active 09:00: [place] 12/30/2014 00 [facility] [place] HIGH BP HIGH BP Diagnosis Active 2014-07-20 Memoria Active 07-19 00:57:00 l 07/19/2014 19:00: Bill carranza [place] HTN HTN Disease Active Univers (hypertens (hypertens 01-20 it y of ion) ion) 00:00: [place] 00 Medical Branch Headache Headache Problem 2018-08-29 Memoria 08/29/2018 16:13:53 l [facility] [place] Nausea Nausea Problem 2018-08-29 Joe peter with with 16:13:53 l vomiting, vomiting, Herm tc unspecifie unspecifie d d 08/29/2018 [place] Elevated Elevated Problem 2018-08-29 Memoria white white 16:13:53 l blood cell blood cell [place] count, count, unspecifie unspecifie d d 08/29/2018 [facility] [place] Low back Low back Problem 2018-08-29 Memoria pain pain 16:13:53 l 08/29/2018 Bill carranza [place] Other Other Problem 2018-08-29 Memor ia chronic chronic 16:13:53 l pain pain [place] 08/29/2018 [facility] Essential Problem 2018-08-29 Me moria (primary) Essential 16:13:53 l hypertensi (primary) Her davila on hypertensi on 08/29/2018 [facility] 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 2018-08-29 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:13: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 [place] 9 [facility] Personal Personal Problem 2018-08-29 Memoria history of history of 16:13:53 l nicotine nicotine Bill carranza dependence dependence 9 [facility] Cervicalgi Cervicalg Problem 2018-08-14 Memoria a ia 15:42:10 l 08/14/2018 Bill carranza [place] Injury of Injury of Problem Resolve 2020-11-30 Memoria back back d 01:03:52 l (disorder) (disorder) [place] Resolved Problem 11/30/2020 [facility] [place] Migraine Migraine Problem Resolve 2020-11-30 Memoria (disorder) (disorder) d 01:03:52 l Resolved [facility] Problem 11/30/2020 [facility] [place] Ready to Ready to Problem Resolve 2020-11-30 Memoria stop stop d 01:03:52 l smoking smoking [place] (finding) (finding) Resolved Problem 11/30/2020 [facility] [place] Chronic Chronic Problem Active 2020-11-30 Me moria low back low back 01:03:52 l pain pain [facility] (disorder) (disorder) Active [facility] [place] History of History Problem Active 2020-11-30 Memoria [...] l 02/16/2018 04:14: Bill n 08/29/2018 03 [place] Migraine, Migraine, Problem 2017-2017-11-04 2017-11-04 Memoria unspecifie unspecifie 5- 02:29:41 02:29:41 l d, not d, not 05:00: [place] intractabl intractabl 00 e, without e, without status status migrainosu migrainosu s s 11/01/2017 8 [facility] Migraine Migraine Problem 2016-2017-04-12 2017-04-12 Memoria without without 0-13 05:35:07 05:35:07 l aura, not aura, not 05:00: Herm tc intractabl intractabl 00 e, without e, without status status migrainosu migrainosu s s 04/09/2017 04/12/2017 [place] Chest Chest Problem 2016-2017-01-23 2017-01-23 M emoria pain, pain, 01-20 03:58:05 03:58:05 l unspecifie unspecifie 05:00: [place] d d 00 01/20/2017 01/23/2017 [facility] Dorsalgia, Dorsalgia Problem 2017-01-11 2017-01-11 Memoria unspecifie , 01-08 03:19:13 03:19:13 l d unspecifie 05:00: Bill yi 01/08/2017 01/11/2017 [facility] Discharge Discharge Problem 2015-062016-06-09 2016-06-09 Memoria Diagnosis: Diagnosis: 08-07 02:24:40 02:24:40 l Rib Rib 06:00: [place] fractures fractures 00 06/06/2016 06/09/2016 [facility] Discharge Discharge Problem 2015-062016-06-08 2016-06-08 Memoria Diagnosis: Diagnosis: 08-06 04:48:18 04:48:18 l Closed Closed 06:00: [place] fracture fracture 00 of four of four ribs ribs 06/05/2016 06/08/2016 [place] Discharge Discharge Problem 2015-062016-06-08 2016-06-08 Memoria Diagnosis: Diagnosis: 08-06 04:48:18 04:48:18 l Acute head Acute head 06:00: [place] injury injury 00 06/05/2016 06/08/2016 [facility] Discharge Discharge Problem 2015-062016-06-08 2016-06-08 Memoria Diagnosis: Diagnosis: 08-06 04:48:18 04:48:18 l Accidental Accidental 06:00: [place] fall fall 06/05/2016 06/08/2016 [facility] Discharge Discharge Problem 2015-062016-05-17 2016-05-17 Memoria Diagnosis: Diagnosis: 07-14 04:33:41 04:33:41 l Migraine Migraine 06:00: Bill carranza 05/14/201605/17/2016 [place] Discharge Problem 2015-01-02 2015-01-02 Memoria Diagnosis: Discharge 12-30 00:50:48 00:50:48 l Cellulitis Diagnosis: 05:00: [place] of great Cellulitis 00 toe of great toe 12/30/2014 01/02/2015 [facility] Discharge Discharge Problem 2014-10-25 2014-10-25 Memoria Diagnosis: Diagnosis: 10-22 03:19:10 03:19:10 l Anemia Anemia 05:00: [place] 10/22/201410/25/2014 [place] Discharge Problem 2014-10-25 2014-10-25 Memoria Diagnosis: Discharge 10-22 03:19:10 03:19:10 l Edema Diagnosis: 05:00: Bill carranza Edema 00 10/22/2014 10/25/2014 [place] Discharge Problem 2014-07-22 2014-07-22 Memoria Diagnosis: Discharge 07-20 15:27:52 15:27:52 l Acute Diagnosis: 06:00: Bill carranza headache Acute 00 headache 07/20/2014 07/22/2014 [facility] Discharge Discharge Problem 2014-07-22 2014-07-22 Memoria Diagnosis: Diagnosis: 07-20 15:27:52 15:27:52 l Weakness Weakness 06:00: Bill carranza 07/20/201407/22/2014 [facility] Allergies, Adverse Reactions, Alerts Allergy Allergy Status Severity Reaction(s) Onset Inactive Treating Comm ents Source Name Type Date Date Clinician TRAMADOL DRUG Active Unknown-Cmnt Un danielle HCL INGREDI 3-18 ity of 00:00: [place] 00 Medical Branch Tramadol Drug Active Unknown - Unive rs Hcl Allergy See comments 3-18 ity of 00:00: [place] 00 Medical Branch Sumatrip Propensi Active Unknown - "I almost Univers cordova ty to See comments 805 had a ity of Succinat adverse 00:00: heart [place] e reaction 00 attack Medical s and a Branch stroke" SUMATRIP DRUG Active Unknown-Cmnt Un danielle CORDOVA INGREDI 8- ity of SUCCINAT 00:00: [place] E 00 Medical Branch Imitrex Imitrex Active Shortness of Me moria breath, l Chest [place] discomfort (finding) traMADol traMADol Active Memori a l [place] Social History Social Habit Start Date Stop Date Quantity Comments Source History of tobacco Pipe Smoker Unive rsity of use [place] [facility] History SDOH University o f Alcohol Std Drinks [place] [facility] History SDOH University o f Alcohol Binge [place] [facility] History SDOH Social Unive rsity of Connections Get [place] Med ical Together Branch History SDOH Social Unive rsity of Connections Jehovah'[employer] Witness [place] [facility] History SDOH Social Unive rsity of Connections [place] [facility] Membership Branch History SDOH Social Unive rsity of Connections [place] [facility] Meetings Branch Gender identity [facility] [place] [facility] Sexual orientation Univer sity of [place] [facility] History SDOH 2022-10-23 2022-10-23 1 University o f Alcohol Frequency 00:00:00 00:00:00 [place] M edical Branch History SDOH Social 2022-10-23 2022-10-23 5 Unive rsity of Connections Phone 00:00:00 00:00:00 [place] M edical Branch History SDOH Social 2022-10-23 2022-10-23 8 Unive rsity of Connections Living 00:00:00 00:00:00 [place] [facility] History SDOH 2022-10-23 2022-10-23 3 University o f Physical Activity 00:00:00 00:00:00 [place] M edical DPW Branch History SDOH 2022-10-23 2022-10-23 3 University o f Physical Activity 00:00:00 00:00:00 [place] M edical MPS Branch History SDOH 2022-10-23 2022-10-23 5 University o f Financial 00:00:00 00:00:00 [place] [facility] History SDOH Food 2022-10-23 2022-10-23 1 Univers ity of Worry 00:00:00 00:00:00 [place] [facility] History SDOH Food 2022-10-23 2022-10-23 1 Univers ity of Scarcity 00:00:00 00:00:00 [place] [facility] History SDOH 2022-10-23 2022-10-23 2 University o f Transport Med 00:00:00 00:00:00 [place] Medic al Branch History SDOH 2022-10-23 2022-10-23 2 University o f Transport Non-Med 00:00:00 00:00:00 [place] M edical Branch History SDOH 2022-10-23 2022-10-23 2 University o f Housing Unable to 00:00:00 00:00:00 [place] M edical Pay Branch History SDOH 2022-10-23 2022-10-23 1 University o f Housing Places 00:00:00 00:00:00 [facility] Branch History SDOH 2022-10-23 2022-10-23 2 University o f Housing Homeless 00:00:00 00:00:00 [place] Me santiago Last Year Branch History of Social 2022-10-23 2022-10-23 Univers ity of function 00:00:00 00:00:00 [facility] Exposure to 2022-10-12 2022-10-22 Not sure [facility] SARS-CoV-2 (event) 00:00:00 14:24:00 [facility] Alcohol intake 2022-10-22 2022-10-22 Ex-drinker [facility] 00:00:00 00:00:00 (finding) [facility] Tobacco use and 2022-09-13 2022-09-13 User of Universit y of exposure 00:00:00 00:00:00 smokeless [facility] tobacco [place] [employer] 2022-09-13 2022-09-13 13 [facility] 00:00:00 00:00:00 [facility] Social History 2020-11-27 2020-11-27 [facility] 20:31:29 20:31:29 [birth year] Universit y of 00:00:00 00:00:00 [facility] Smoking Status Start Date Stop Date Source Smokes tobacco daily 2022-09-13 00:00:00 [facility] ity of [facility] Medications Ordered Filled Start Stop Current Ordering Indication Dosage Frequency Signature Comments Components Source Medication Medication Date Date Medication? Clinician (SIG) Name Name ketorolac No 30mg 30 mg, Unive rs (TORADOL) 03-03 Slow IV ity of injection 21:15: 20:14 [place], [place] 30 mg 00 :00 ONCE, 1 Medical dose, On Branch Wed03/03/23 at 1615, ITA metoclopram 2022- No 10mg 10 mg, Uni vers james HCl 03-03 Slow IV ity of (REGLAN) 19:00: 20:10 Push, [place] injection 00 :00 ONCE, 1 Medical 10 mg dose, On Branch 03/03/23 at 1400, ITA carvediloL Yes [id number] 25mg Take 1 U nivers 25 mg 9-06 tablet by ity of tablet 00:00: mouth in [place] 00 the Medical morning Branch and 1 tablet in the evening. Take with meals. cloNIDine 2023-0 Yes [id number] .3mg Take 1 Un danielle 0.3 mg 9-06 tablet by ity of tablet 00:00: mouth in [place] 00 the Medical morning Branch and 1 tablet at noon and 1 tablet in the evening. Butalbital- 2023-0 Yes [id number] 1{capsu Take 1 Univers Acetaminoph 9-06 le} capsule by it y of en-Caff 00:00: mouth [place] (FIORICET) 00 every 6 Medica l 50-300-40 (six) Branch mg per hours as capsule needed for Pain (scale 4-6). ketorolac 2023-0 Yes [id number] 10mg Take 1 Un danielle 10 mg 9-06 tablet by ity of tablet 00:00: mouth [place] 00 every 8 Medical (eight) Branch hours. metoclopram 2023-0 Yes [id number] 10mg Take 1 Univers james HCl 10 9-06 tablet by ity of mg tablet 00:00: mouth [place] 00 every 6 Medical (six) Branch hours. carvediloL 2023-0 Yes [id number] 25mg Take 1 U nivers 25 mg 9-06 tablet by ity of tablet 00:00: mouth in [place] 00 the Medical morning Branch and 1 tablet in the evening. Take with meals. cloNIDine 2023-0 Yes [id number] .3mg Take 1 Un danielle 0.3 mg 9-06 tablet by ity of tablet 00:00: mouth in [place] 00 the Medical morning Branch and 1 tablet at noon and 1 tablet in the evening. Butalbital- 2023-0 Yes [id number] 1{capsu Take 1 Univers Acetaminoph 9-06 le} capsule by it y of en-Caff 00:00: mouth [place] (FIORICET) 00 every 6 Medica l 50-300-40 (six) Branch mg per hours as capsule needed for Pain (scale 4-6). ketorolac 2023-0 Yes [id number] 10mg Take 1 Un danielle 10 mg 9-06 tablet by ity of tablet 00:00: mouth [place] 00 every 8 Medical (eight) Branch hours. metoclopram 2023-0 Yes [id number] 10mg Take 1 Univers james HCl 10 9-06 tablet by ity of mg tablet 00:00: mouth [place] 00 every 6 Medical (six) Branch hours. NIFEdipine 2022-0 Yes 60mg 60 mg, Unive rs ER tablet 5- Oral, ity of 60 mg 14:00: DAILY, [place] [address] First dose Medical (after Branch last modificati on) on Wed10/26/22 at 0900, Until Discontinu ed, Routine aspirin 81 2022-0 3- No [id number] 81mg Take 1 Univers mg chewable 5-07 03- tablet by it y of tablet 00:00: 04:59 mouth in [place] 00 :00 the Medical morning Branch for 30 days. losartan 2022-0 3- No [id number] 100mg Take 1 Univers 100 mg 5-07 03- tablet by ity of tablet 00:00: 04:59 mouth in [place] 00 :00 the [facility] morning Branch for 30 days. NIFEdipine 2022-0 2022- No [id number] 60mg Take 1 Univers ER 60 mg -11-26 tablet by ity o f tablet 00:00: 04:59 mouth in [place] 00 :00 the [facility] Branch for 30 days. aspirin 81 2022-0 3- No [id number] 81mg Take 1 Univers mg chewable -11-26 tablet by it y of tablet 00:00: 04:59 mouth in [place] 00 :00 the [facility] Branch for 30 days. losartan 2022-0 3- No [id number] 100mg Take 1 Univers 100 mg -07 03- tablet by ity of tablet 00:00: 04:59 mouth in [place] 00 :00 the [facility] Branch for 30 days. NIFEdipine 2022-0 3- No [id number] 60mg Take 1 Univers ER 60 mg -07 03- tablet by ity o f tablet 00:00: 04:59 mouth in [place] 00 :00 the Medical morning Branch for 30 days. aspirin 81 2022-0 3- No [id number] 81mg Take 1 Univers mg chewable 5-07 03- tablet by it y of tablet 00:00: 04:59 mouth in [place] 00 :00 the [facility] morning Branch for 30 days. losartan 2022-0 3- No [id number] 100mg Take 1 Univers 100 mg 5-07 03- tablet by ity of tablet 00:00: 04:59 mouth in [place] 00 :00 the Medical morning Branch for 30 days. NIFEdipine 2022-0 3- No [id number] 60mg Take 1 Univers ER 60 mg 5-07 03- tablet by ity o f tablet 00:00: 04:59 mouth in [place] 00 :00 the Medical morning Branch for 30 days. aspirin 81 2022-0 3- No [id number] 81mg Take 1 Univers mg chewable 5- 06- tablet by it y of tablet 00:00: 04:59 mouth in [place] 00 :00 the [facility] morning Branch for 30 days. losartan 2022-0 3- No [id number] 100mg Take 1 Univers 100 mg 5- 06- tablet by ity of tablet 00:00: 04:59 mouth in [place] 00 :00 the [facility] morning Branch for 30 days. NIFEdipine 2022-0 2022- No [id number] 60mg Take 1 Univers ER 60 mg 5-07 03- tablet by ity o f tablet 00:00: 04:59 mouth in [place] 00 :00 the [facility] morning [place] for 30 days. aspirin 81 2022-0 3- No [id number] 81mg Take 1 Univers mg chewable 5-07 03- tablet by it y of tablet 00:00: 04:59 mouth in [place] 00 :00 the [facility] morning [place] for 30 days. losartan 2022-0 3- No [id number] 100mg Take 1 Univers 100 mg 5-07 03- tablet by ity of tablet 00:00: 04:59 mouth in [place] 00 :00 the [facility] morning [place] for 30 days. NIFEdipine 2022-0 3- No [id number] 60mg Take 1 Univers ER 60 mg 5- 06- tablet by ity o f tablet 00:00: 04:59 mouth in [place] 00 :00 the Medical morning Branch for 30 days. aspirin 81 2022-0 3- No [id number] 81mg Take 1 Univers mg chewable 5-01 06-01 tablet by it y of tablet 00:00: 04:59 mouth in [place] 00 :00 the [facility] morning [place] for 30 days. losartan 3-0 3- No [id number] 100mg Take 1 Univers 100 mg 5-01 06-01 tablet by ity of tablet 00:00: 04:59 mouth in [place] 00 :00 [facility] for 30 days. NIFEdipine 2022- No [id number] 60mg Take 1 Univers ER 60 mg 10-26 tablet by ity o f tablet 00:00: 04:59 mouth in [place] 00 :00 [facility] for 30 days. KCL 2022- No 40meq 40 mEq, Univers (KLOR-CON 10-25 Oral, ity of M20) tablet 18:00: 17:17 ONCE, 1 [place] 40 mEq 00 :00 dose, On [facility] 10/25/22 at 1300, Routine NIFEdipine 2022- No 30mg 30 mg, Univ ers ER tablet 10-25 Oral, ity of 30 mg 17:15: 17:16 ONCE, 1 [place] 00 :00 dose, On [facility] 10/25/22 at 1215, Routine pantoprazol Yes 40mg 40 mg, Univ ers e 10-25 Oral, BID, ity of (PROTONIX) 16:30: First dose [place] EC tablet 00 on [place] [facility] 40 mg 10/25/22 at Branch 1130, Until Discontinu ed, Routine ketorolac 2022- No 30mg 30 mg, Unive rs (TORADOL) 10-25 0502 Slow IV ity of injection 16:15: 16:14 [place], [place] 30 mg 59 :59 Q8HPRN, [facility] on [place] 10/25/22 at 1115, Until 10/27/22 at 1114, Routine, Pain (scale 7-10) potassium 2022- No 10meq 10 mEq, IV Univers chloride in 10-25 Piggyback, i ty of water 10 14:00: 17:59 Q1H, 4 [place] mEq/100 mL 00 :00 doses, Medical RTU 10 mEq First dose Bra nch on [place] 10/25/22 at 0900, Last dose on [place] 10/25/22 at 1200, Administer over 60 Minutes, 100 mL cloNIDine 2022- No .2mg Take 1 Unive rs 0.2 mg 10-25 tablet by ity of tablet 12:50: 00:00 mouth. [place] 55 :00 [facility] heparin 2023-0 Yes 5000U 5,000 Univers (porcine) 4-30 Units, ity of injection 03:00: [place] 5,000 Units 00 us, Q8H, Medi yessenia First dose Branch on 10/24/22 at 2200, Until Discontinu ed, Routine atorvastati 2022- No [id number] 40mg Take 1 Univers n 40 mg 4-30 05-31 tablet by ity of tablet 00:00: 04:59 mouth at [place] 00 :00 bedtime Medical for 30 Branch days. pantoprazol 2022- No [id number] 40mg Take 1 Univers e 40 mg EC 4- 05-31 tablet by ity of tablet 00:00: 04:59 mouth in [place] 00 :00 the Medical morning Branch and 1 tablet in the evening. Do all this for 30 days. sucralfate 2022- No [id number] 1g Take 1 Univers 1 gram 4-30 05-31 tablet by ity of tablet 00:00: 04:59 mouth [place] 00 :00 before Medical meals and Branch at bedtime for 30 days. atorvastati 2022- No [id number] 40mg Take 1 Univers n 40 mg 4-30 05-31 tablet by ity of tablet 00:00: 04:59 mouth at [place] 00 :00 bedtime Medical for 30 Branch days. pantoprazol 2022- No [id number] 40mg Take 1 Univers e 40 mg EC - 05-31 tablet by ity of tablet 00:00: 04:59 mouth in [place] 00 :00 the Medical morning Branch and 1 tablet in the evening. Do all this for 30 days. sucralfate 2022- No [id number] 1g Take 1 Univers 1 gram 4-30 05-31 tablet by ity of tablet 00:00: 04:59 mouth [place] 00 :00 before Medical meals and Branch at bedtime for 30 days. atorvastati 2022- No [id number] 40mg Take 1 Univers n 40 mg 4-30 05-31 tablet by ity of tablet 00:00: 04:59 mouth at [place] 00 :00 bedtime Medical for 30 Branch days. pantoprazol 2022- No [id number] 40mg Take 1 Univers e 40 mg EC 4-30 05-31 tablet by ity of tablet 00:00: 04:59 mouth in [place] 00 :00 the Medical morning Branch and 1 tablet in the evening. Do all this for 30 days. sucralfate No [id number] 1g Take 1 Univers 1 gram 4-30 05-31 tablet by ity of tablet 00:00: 04:59 mouth [place] 00 :00 before Medical meals and Branch at bedtime for 30 days. atorvastati No [id number] 40mg Take 1 Univers n 40 mg 4-30 05-31 tablet by ity of tablet 00:00: 04:59 mouth at [place] 00 :00 bedtime Medical for 30 Branch days. pantoprazol No [id number] 40mg Take 1 Univers e 40 mg EC 4- 05-31 tablet by ity of tablet 00:00: 04:59 mouth in [place] 00 :00 the Medical morning Branch and 1 tablet in the evening. Do all this for 30 days. sucralfate No [id number] 1g Take 1 Univers 1 gram 4-30 05-31 tablet by ity of tablet 00:00: 04:59 mouth [place] 00 :00 before Medical meals and Branch at bedtime for 30 days. atorvastati No [id number] 40mg Take 1 Univers n 40 mg 4-30 05-31 tablet by ity of tablet 00:00: 04:59 mouth at [place] 00 :00 bedtime Medical for 30 Branch days. pantoprazol No [id number] 40mg Take 1 Univers e 40 mg EC 4-30 05-31 tablet by ity of tablet 00:00: 04:59 mouth in [place] 00 :00 the Medical morning Branch and 1 tablet in the evening. Do all this for 30 days. sucralfate No [id number] 1g Take 1 Univers 1 gram 4-30 05-31 tablet by ity of tablet 00:00: 04:59 mouth [place] 00 :00 before Medical meals and Branch at bedtime for 30 days. atorvastati No [id number] 40mg Take 1 Univers n 40 mg 4-30 05-31 tablet by ity of tablet 00:00: 04:59 mouth at [place] 00 :00 bedtime Medical for 30 Branch days. pantoprazol 2022- No [id number] 40mg Take 1 Univers e 40 mg EC 10-25 tablet by ity of tablet 00:00: 04:59 mouth in [place] 00 :00 the Medical morning Branch and 1 tablet in the evening. Do all this for 30 days. sucralfate 2022- No [id number] 1g Take 1 [facility] 1 gram 10-25 tablet by ity of tablet 00:00: 04:59 mouth [place] 00 :00 before Medical meals and Branch at bedtime for 30 days. HYDROcodone 2022- No [id number] 1{tbl} Take 1 U nivers -acetaminop 10-25 tablet by it y of hen 5-325 00:00: 04:59 mouth [place] mg tablet 00 :00 every 6 Medical (six) Branch hours as needed for Pain (scale 4-6) for up to 7 days. Indication s: acute pain HYDROcodone 2022- No [id number] 1{tbl} Take 1 U nivers -acetaminop 10-25 tablet by it y of hen 5-325 00:00: 04:59 mouth [place] mg tablet 00 :00 every 6 Medical (six) Branch hours as needed for Pain (scale 4-6) for up to 7 days. Indication s: acute pain KCL 2022- No 40meq 40 mEq, Univers (KLOR-CON 10-24 Oral, ity of M20) tablet 23:15: 23:09 ONCE, 1 [place] 40 mEq 00 :00 dose, On Medical Sat Branch 10/24/22 at 1815, Routine iopamidol 2022- No [id number] 120mL 120 mL, Univers (ISOVUE 10-24 Intravenou ity o f 370-500 mL) 21:02: 14:00 s, ONCE, 1 [place] injection 00 :00 dose, On Medica l 120 mL Sat Branch 10/24/22 at 1615, Routine morpHINE (4 2022- No 4mg 4 mg, Slow Univers mg/mL) 4-29 04-30 IV Push, ity of injection 4 15:53: 16:15 Q4HPRN, [place] mg 11 :46 Starting Medical on [place] 10/24/22 at 1053, Until 10/25/22 at 1115, Routine, Pain (scale 7-10), Chest pain losartan Yes 100mg 100 mg, Unive rs (COZAAR) 10-24 Oral, ity of tablet 100 14:00: DAILY, [place] mg 00 First dose Medical on [facility] 10/24/22 at 0900, Until Discontinu ed, Routine NIFEdipine 2022- No 30mg 30 mg, Univ ers ER tablet 10-2430 Oral, ity of 30 mg 14:00: 16:15 DAILY, [place] 00 :39 First dose Medical on [facility] 10/24/22 at 0900, Until Discontinu ed, Routine melatonin Yes 3mg 3 mg, Univers (MELATIN) 10-24 Oral, QHS, ity of tablet 3 mg 02:00: First dose [place] 00 on Wed Medical 10/23/22 at Branch 2100, Until Discontinu ed, Routine sennosides- Yes 1{tbl} 1 tablet, Univers docusate 10-23 Oral, ity of sodium 23:45: DAILY, [place] (SENOKOT-S) 00 First dose Me dical 8.6-50 mg on Wed Branch per tablet 10/23/22 at 1 tablet 1845, Until Discontinu ed, Routine HYDROcodone 0 Yes 1{tbl} 1 tablet, Univers -acetaminop 10-23 Oral, ity of hen (NORCO 23:37: Q6HPRN, [place] 5) 5-325 mg 25 Starting Medi yessenia tablet 1 on Wed Branch tablet 10/23/22 at 1837, Until Discontinu ed, Routine, Pain (scale 4-6) hydralAZINE 0 Yes 10mg 10 mg, Univ ers (APRESOLINE 10-23 Slow IV ity o f ) injection 23:36: Push, [place] 10 mg 07 Q4HPRN, Medical Starting Branch on Wed10/23/22 at 1836, Until Discontinu ed, Routine, DBP=>10 0; SBP=>160, For SBP > 160 zolpidem 0 Yes 5mg 5 mg, Univers (AMBIEN) 10-23 Oral, ity of tablet 5 mg 23:21: QHSPRN, [place] 32 Starting Medical on Wed Branch 10/23/22 at 1821, Until Discontinu ed, Routine, Insomnia morpHINE (2 2022-0 2022- No 2mg 2 mg, Slow Univers mg/mL) 10-23 IV Push, ity of injection 2 22:45: 22:29 ONCE, 1 [place] mg 00 :00 dose, On Medical Wed [place] 10/23/22 at 1745, Routine sucralfate 0 Yes 1g 1 g, Oral, U nivers (CARAFATE) 10-23 AC+HS, ity of tablet 1 g 21:45: First dose [place] 00 on Wed [facility] 10/23/22 at Branch 1645, Until Discontinu ed, Routine morpHINE (2 2022- No 2mg 2 mg, Slow Univers mg/mL) 10-23 IV Push, ity of injection 2 18:15: 17:31 ONCE, 1 [place] mg 00 :00 dose, On Medical Wed [place] 10/23/22 at 1315, Routine aspirin Yes 81mg 81 mg, Univers chewable 10-23 Oral, ity of tablet 81 14:00: DAILY, [place] mg 00 First dose Medical on Wed [place] 10/23/22 at 0900, Until Discontinu ed, Routine docusate Yes 100mg 100 mg, Unive rs (COLACE) 10-23 Oral, BID, ity o f capsule 100 13:00: First dose [place] mg 00 on Wed [facility] 10/23/22 at Branch 0800, Until Discontinu ed, Routine carvediloL 0 Yes 25mg 25 mg, Unive rs (COREG) 10-23 Oral, BID ity of tablet 25 13:00: MEALS, [place] mg 00 First dose Medical on Wed [place] 10/23/22 at 0800, Until Discontinu ed, Routine nicotine 0 Yes 1{patch 1 Patch, Un danielle (NICODERM) 10-23 } Topical, ity o f 21 mg/24 hr 06:45: Administer [place] patch 1 00 over 24 Medical Patch Hours, Branch Q24H, First dose on Wed10/23/22 at 0145, Until Discontinu ed, Routine pantoprazol 2022- No 8mg/h 8 mg/hr U nivers e 10-23 (50 ity of (PROTONIX) 06:45: 16:16 mL/hr), IV [place] 80 mg in 00 :56 Infusion, Medica l NaCl 0.9% CONTINUOUS Bran ch (NS) 500 mL , Starting infusion on Wed10/23/22 at 0145 pantoprazol 2022- No 40mg 40 mg, Uni vers e 10-23 Slow IV ity of (PROTONIX) 06:30: 06:17 Push, [place] injection 00 :00 ONCE, 1 Medical 40 mg dose, On Branch Wed10/23/22 at 0130 magnesium 2022- No 2g 2 g, IV Univ ers sulfate in 10-23 Piggyback, it y of water 2 06:30: 09:39 Administer [place] gram/50 mL 00 :00 over 120 Medic al (4 %) Minutes, Branch infusion 2 ONCE, 1 g dose, On Wed10/23/22 at 0130, Routine atorvastati Yes 40mg 40 mg, Univ ers n (LIPITOR) 10-23 Oral, QHS, it y of tablet 40 05:45: First dose [place] mg 00 on Wed Medical 10/23/22 at Branch 0045, Until Discontinu ed, Routine potassium 2022- No 10meq 10 mEq, IV Univers chloride in 10-23 Piggyback, i ty of water 10 05:45: 10:39 Q1H ES, 3 [place] mEq/100 mL 00 :42 doses, Medical RTU 10 mEq First dose Bra nch on Wed10/23/22 at 0045, Last dose on Wed10/23/22 at 0245, Administer over 60 Minutes, 100 mL morpHINE (2 2022- No 2mg 2 mg, Slow Univers mg/mL) 10-23 IV Push, ity of injection 2 05:42: 15:53 Q4HPRN, [place] mg 38 :33 Starting Medical on Wed Branch 10/23/22 at 0042, Until 10/24/22 at 1053, Routine, Pain (scale 7-10), Chest pain pantoprazol 0 2022- No 40mg 40 mg, Uni vers e 10-23 Slow IV ity of (PROTONIX) 03:45: 03:04 Push, [place] injection 00 :00 ONCE, 1 Medical 40 mg dose, On Branch [place] 10/22/22 at 2245 ondansetron 2022-0 Yes 8mg 8 mg, Slow Univers (ZOFRAN 10-23 IV Push, ity of (PF)) 02:53: Q6HPRN, [place] injection 8 35 Nausea and Me dical mg Vomiting Branch (N/V), Starting on [place] 10/22/22 at 2153
Do ses of ondansetro n 16 mg and above need to be administer ed via IV piggyback. For Dose >=24mg ECG monitoring is advisable.
pantoprazol 2022- No 40mg 40 mg, Uni vers e 10-23 Slow IV ity of (PROTONIX) 02:15: 01:36 Push, [place] injection 00 :00 ONCE, 1 Medical 40 mg dose, On Branch [facility] 10/22/22 at 2115 famotidine 0 2022- No 20mg 20 mg, Univ ers (PEPCID 10-23 Slow IV ity of (PF)) 01:30: 01:36 Push, [place] injection 00 :00 ONCE, 1 Medical 20 mg dose, On Branch [facility] 10/22/22 at 2030, ITA haloperidol 2022-2022- No 2.5mg 2.5 mg, U nivers lactate 10-23 Intravenou ity o f (HALDOL) 01:15: 01:11 s, ONCE, 1 [place] injection 00 :00 dose, On Medica l 2.5 mg [place] Branch 10/22/22 at 2015, STAT iopamidol 2022-0 2022- No [id number] 80mL 80 mL, U nivers (ISOVUE 10-23 Intravenou ity o f 370-500 mL) 00:15: 00:15 s, ONCE, 1 [place] injection 00 :00 dose, On Medica l 80 mL [place] Branch 10/22/22 at 1915, Routine labetaloL 2022-0 2023- No 10mg 10 mg, Unive rs (NORMODYNE) 10-23 Slow IV ity of injection 00:15: 23:52 Push, [place] 10 mg 00 :00 ONCE, 1 Medical dose, On Branch [facility] 10/22/22 at 1915, ITA morpHINE (2022- No 6mg 6 mg, Slow Univers mg/mL) 10-22 IV Push, ity of injection 6 23:30: 23:30 ONCE, 1 [place] mg 00 :00 dose, On [facility] Branch 10/22/22 at 1830, STAT HEPARIN 2022- No 60U/kg 3,540 Univer s SODIUM 10-22 Units (60 ity of (PORCINE) 21:30: 21:56 Units/kg [place] 1,000 00 :00 ?59 kg), Medical UNIT/ML IV Push, Branch BOLUS ACS ONCE, 1 ORDER SET dose, On [facility] 10/22/22 at 1630, ITA aspirin 2022- No 162mg 162 mg, Unive rs chewable 10-22 Oral, ity of tablet 162 21:30: 21:55 ONCE, 1 [place] mg 00 :00 dose, On [facility] Branch 10/22/22 at 1630, ITA hydralAZINE 2022- No 20mg 20 mg, Uni vers (APRESOLINE 10-22 Slow IV ity of ) injection 21:30: 21:55 Push, [place] 20 mg 00 :00 ONCE, 1 Medical dose, On Branch [facility] 10/22/22 at 1630, ITA heparin 2022- No 0U/h 0-2,150 Univer s 25,000 10-22 Units/hr ity of Units/250 21:25: 20:50 (0-21.5 [place] mL 42 :19 mL/hr), IV Medical (Premixed Infusion, Branc h Bag) in TITRATE, 0.45 % NS Parameters in Admin. Instr., Starting on [facility] 10/22/22 at 1625
In itiate dosing:&nb sp; & nbsp;&nbsp ; -Patient 83 kg or under: 700 Units/hr (Calculate d dose at 12 units/kg/h r) &n bsp; &nbs p; -Patient over 83 k,000 units/hr&n bsp;DO NOT Exceed the MAXIMUM 1,000 units/hr for initiation of heparin drip.&nbsp ; CAU TION - If LMWH given in ER, AVOID bolus and start next dose/drip 12 hrs after ER dosage.&nb sp; M ust program rate using programmab le infusion pump.&nbsp ; Miley ck with the ordering provider first prior to any administra tion should the patient be on existing/a dditional anticoagul ant therapy. Rang e, Dosing and Testing: &nbs p;FOR [place], [facility], AND [facility] ONLY &nbs p; - aPTT < 35: & nbsp;Bolus 5000 units, increase rate 300 units/hr&n bsp; - aPTT 35-44:&nbs p; Bari serge 3000 units, increase rate 200 units/hr&n bsp; - aPTT 45-54:&nbs p; In crease rate 100 units/hr&n bsp; - aPTT 55-85:&nbs p; NO CHANGE&nbs p; - aPTT 86-95:&nbs p; De crease rate 100 units/hr&n bsp; - aPTT 96-120:&nb sp; H old 30 minutes, decrease rate 150 units/hr&a mp;nbsp; - aPTT > 120: Hold 60 minutes, decrease rate 200 units/hr&n bsp; Check aPTT 6 hours after initiation , then Q6H after every change, aPTT Q12H once therapeuti c levels are reached.&n bsp; &nbs p; __ &n bsp;FOR [facility] ONLY - aPTT < 40: & nbsp;Bolus 5000 units, increase rate 300 units/hr&n bsp; - aPTT 40-49:&amp ;nbsp;&nbs p;Bolus 3000 units, increase rate 200 units/hr&n bsp; - aPTT 50-59:&nbs p; In crease rate 100 units/hr&n bsp; - aPTT 60-85:&nbs p; NO CHANGE&nbs p; - aPTT 86-95:&nbs p; De crease rate 100 units/hr&n bsp; - aPTT 96-120:&nb sp; H old 30 minutes, decrease rate 150 units/hr&n bsp; - aPTT > 120: Hold 60 minutes, decrease rate 200 units/hr&n bsp; Check aPTT 6 hours after initiation , then Q6H after every change, aPTT Q12H once therapeuti c levels are reached.&n bsp; DO NOT ADJUST INITIAL BOLUS OR INITIAL INFUSION RATE.
heparin 2022- No 3000U FOR Univers (1,000 10-22 REBOLUSING ity of unit/mL, 10 21:25: 20:50 , Starting [place] mL vial) 34 :19 on [facility] Medical for 10/22/22 at Branch Rebolusing 1625, Until 10/24/22 at 1550, Routine
Dosing based on aPPT testing parameters (refer to continuous heparin drip order).
NaCl 0.9% 2022- No 1000mL at 999 Uni vers (NS) bolus 10-22 mL/hr, ity of infusion 20:45: 23:39 1,000 mL, [place] 1,000 mL 00 :00 IV Medical Piggyback, [place] ONCE, 1 dose, On [facility] 10/22/22 at 1545, STAT morpHINE (4 2022- No 4mg 4 mg, Slow Univers mg/mL) 10-22 IV Push, ity of injection 4 20:00: 20:25 ONCE, 1 [place] mg 00 :00 dose, On [facility] 10/22/22 at 1500, STAT metoclopram 2022- No 10mg 10 mg, Uni vers james HCl 10-22 Slow IV ity of (REGLAN) 19:45: 19:38 Push, [place] injection 00 :00 ONCE, 1 Medical 10 mg dose, On [facility] 10/22/22 at 1445, ITA cloNIDine 2022- No .4mg Take 4 Unive rs 0.1 mg 3-20 03-20 tablets by ity of tablet 09:47: 00:00 mouth in [place] 17 :00 the Medical morning [place] and 4 tablets in the evening. melatonin Yes 9mg 9 mg, Univers (MELATIN) 3-20 Oral, QHS, ity of tablet 9 mg 02:00: First dose [place] 00 on [facility] 09/13/22 at Branch 2100, Until Discontinu ed, Routine cloniDINE 0 2022- No [id number] 1{patch Apply 1 Univers 0.3 mg/24 -20 03-21 } Patch to ity o f hr patch 00:00: 04:59 skin once [place] 00 :00 now for 1 Medical dose. [place] enoxaparin Yes 30mg 30 mg, Unive rs (LOVENOX) 3-19 Subcutaneo ity of injection 22:00: us, DAILY, [place] 30 mg 00 First dose Medical on [facility] 09/13/22 at 1700, Until Discontinu ed, Routine nicotine 0 Yes 1{patch 1 Patch, Un danielle (NICODERM) 3-19 } Topical, ity o f 14 mg/24 hr 18:30: Administer [place] patch 1 00 over 24 Medical Patch Hours, [place] Q24H, First dose on [place] 09/13/22 at 1330, Until Discontinu ed, Routine pantoprazol 0 Yes 40mg 40 mg, Univ ers e 3-19 Slow IV ity of (PROTONIX) 13:45: Push, [place] injection 00 Q24H, Medical 40 mg First dose Branch on 09/13/22 at 0845, Until Discontinu ed cloniDINE 2022-2022- No 1{patch 1 Patch, Univers (CATAPRES-T 09-13 } Transderma i ty of TS 3) 0.3 13:15: 13:56 l (Apply [place] mg/24 hr 00 :00 To Skin), Medica l patch 1 Administer Branch Patch over 7 Days, ONCE, 1 dose, On 09/13/22 at 0815, Routine carvediloL Yes 25mg 25 mg, Unive rs (COREG) 09-13 Oral, BID ity of tablet 25 13:00: MEALS, [place] mg 00 First dose Medical on [place] 09/13/22 at 0800, Until Discontinu ed, Routine metoclopram Yes 10mg 10 mg, Univ ers james HCl 09-13 Oral, Q8H, ity of (REGLAN) 12:45: First dose [place] tablet 10 00 on [place] [facility] mg 09/13/22 at Branch 0745, Until Discontinu ed, Routine NaCl 0.45% Yes 1000mL at 75 Univ ers (1/2NS) IV 3-19 mL/hr, ity of infusion 07:15: 1,000 mL, [place] 1,000 mL 00 IV Medical Infusion, Branch CONTINUOUS , Starting on 09/13/22 at 0215, Until Discontinu ed, Routine labetaloL 2022- No 20mg 20 mg, Unive rs (NORMODYNE) 09-13 Slow IV ity of injection 06:45: 06:05 Push, [place] 20 mg 00 :00 ONCE, 1 Medical dose, On Branch 09/13/22 at 0145, Routine hydralAZINE 2022- No 10mg 10 mg, Uni vers (APRESOLINE 09-13 Slow IV ity of ) injection 06:14: 08:16 Push, [place] 10 mg 19 :16 Q4HPRN, Medical Starting Branch on 09/13/22 at 0114, Until 09/13/22 at 0316, STAT, DBP=&g t;100; SBP=>160 ondansetron Yes 4mg 4 mg, Slow Univers (ZOFRAN 09-13 IV Push, ity of (PF)) 06:04: Q6HPRN, [place] injection 4 27 Starting Medi yessenia mg on [facility] 09/13/22 at 0104, Until Discontinu ed, Routine, Nausea and Vomiting (N/V) HYDROcodone 2022- No 1{tbl} 1 tablet, Univers -acetaminop 09-13 Oral, ity of hen (NORCO 06:04: 06:03 Q6HPRN, [place] 5) 5-325 mg 17 :17 Starting Medi yessenia tablet 1 on [facility] tablet 09/13/22 at 0104, Until 09/15/22 at 0103, Routine, Pain (scale 4-6) acetaminoph Yes 650mg 650 mg, Un danielle en 09-13 Oral, ity of (TYLENOL) 06:04: Q6HPRN, [place] tablet 650 15 Starting Medic al mg on [facility] 09/13/22 at 0104, Until Discontinu ed, Routine, Pain (scale 1-3) cefTRIAXone 2022- No 2000mg 2,000 mg, Univers (ROCEPHIN) 09-13 IV ity of 2,000 mg in 05:30: 05:30 [place], [place] NaCl 0.9% 00 :00 ONCE, 1 Medical (NS) 100 mL dose, On Bran ch MINI-BAG [place] 09/13/22 at 0030, Administer over 30 Minutes, 100 mL
Reas on for Anti-Infec tive: Empiric Therapy for Suspected Infection< br>Empiric Therapy Site: Other
O ther site: unknown
Duration of therapy: 72 hours NaCl 0.9% 2022- No 30mL/kg at 999 Un danielle (NS) bolus 09-13 mL/hr, ity of infusion 04:45: 06:12 1,632 mL [place] 1,632 mL 00 :00 (30 mL/kg Medica l ?54.4 kg), Branch IV Infusion, ONCE, 1 dose, On 09/12/22 at 2345, STAT NaCl 0.9% 2022- No 1000mL at 999 Uni vers (NS) IV 09-13 mL/hr, ity of infusion 04:45: 05:45 Intravenou [place] 1,000 mL 00 :00 s, ONCE, 1 Medic al dose, On Branch 09/12/22 at 2345, ITA iopamidol 2022- No [id number] 100mL 100 mL, Univers (ISOVUE 09-13 Intravenou ity o f 370-500 mL) 04:00: 04:00 s, ONCE, 1 [place] injection 00 :00 dose, On Medica l 100 mL Sat Branch 09/12/22 at 2300, Routine magnesium 2022- No 2g 2 g, IV Univ ers sulfate in 09-13 Piggyback, it y of water 2 03:30: 03:12 Administer [place] gram/50 mL 00 :00 over 20 Medica l (4 %) Minutes, Branch infusion 2 ONCE, 1 g dose, On 09/12/22 at 2230, Routine ketorolac 2022- No 30mg 30 mg, Unive rs (TORADOL) 09-13 Slow IV ity of injection 03:00: 02:03 Push, [place] 30 mg 00 :00 ONCE, 1 Medical dose, On Branch 09/12/22 at 2200, Routine haloperidol 2022- No 5mg 5 mg, Univ ers lactate 09-13 Intravenou ity o f (HALDOL) 02:15: 01:37 s, ONCE, 1 [place] injection 5 00 :00 dose, On Medi yessenia mg Sat Branch 09/12/22 at 2115, STAT NaCl 0.9% 2022- No 1000mL at 999 Uni vers (NS) bolus 09-13 mL/hr, ity of infusion 02:15: 02:53 1,000 mL, [place] 1,000 mL 00 :00 IV Medical Infusion, Branch ONCE, 1 dose, On 09/12/22 at 2115, ITA HYDROmorphO 2021- No .2mg 0.2 mg, Un danielle ne 5-18 05-18 Slow IV ity of (DILAUDID) 23:30: 22:41 Push, [place] injection 00 :00 ONCE, 1 Medical 0.2 mg dose, On Branch 11/12/21 at 1830, Routine
Use approved by (Faculty): [facility] PROVIDER carvediloL 2022-0 Yes [id number] 25mg Take 1 Univers 25 mg 5-18 tablet by ity of tablet 00:00: mouth 2 [place] (two) Medical times Branch daily with meals. sucralfate 2022-0 Yes [id number] 1g Take 1 Univers 1 gram 5-18 tablet by ity of tablet 00:00: mouth 00 before Medical meals and Branch at bedtime. ondansetron 2022-0 Yes [id number] 4mg Take 1 Univers 4 mg tablet 5-18 tablet by ity of 00:00: mouth 00 every 8 Medical (eight) Branch hours. amLODIPine 2-0 Yes [id number] 5mg Take 1 Univers 5 mg tablet 5-18 tablet by ity of 00:00: mouth 00 daily. Medical Branch carvediloL 2021-0 Yes [id number] 25mg Take 1 Univers 25 mg 5-18 tablet by ity of tablet 00:00: mouth [place] (two) Medical times Branch daily with meals. sucralfate 2022-0 Yes [id number] 1g Take 1 Univers 1 gram 5-18 tablet by ity of tablet 00:00: mouth 00 before Medical meals and Branch at bedtime. ondansetron 2-0 Yes [id number] 4mg Take 1 Univers 4 mg tablet 5-18 tablet by ity of 00:00: mouth 00 every 8 Medical (eight) Branch hours. amLODIPine 2-0 Yes [id number] 5mg Take 1 Univers 5 mg tablet 5-18 tablet by ity of 00:00: mouth 00 daily. Medical Branch carvediloL 2-0 Yes [id number] 25mg Take 1 Univers 25 mg 5-18 tablet by ity of tablet 00:00: mouth (two) Medical times Branch daily with meals. carvediloL 2022-0 Yes [id number] 25mg Take 1 Univers 25 mg 5-18 tablet by ity of tablet 00:00: mouth [place] (two) Medical times Branch daily with meals. carvediloL 2022-0 Yes [id number] 25mg Take 1 Univers 25 mg 5-18 tablet by ity of tablet 00:00: mouth [address] [place] [address] (two) Medical times Branch daily with meals. carvediloL 2022-0 Yes [id number] 25mg Take 1 Univers 25 mg 5-18 tablet by ity of tablet 00:00: mouth [address] [place] [address] (two) Medical times Branch daily with meals. carvediloL 2022-0 Yes [id number] 25mg Take 1 Univers 25 mg 5-18 tablet by ity of tablet 00:00: mouth [place] (two) Medical times Branch daily with meals. carvediloL 2022-0 Yes [id number] 25mg Take 1 Univers 25 mg 5-18 tablet by ity of tablet 00:00: [address] (two) Medical times Branch daily with meals. carvediloL 2-0 Yes [id number] 25mg Take 1 Univers 25 mg 5-18 tablet by ity of tablet 00:00: [address] (two) Medical times Branch daily with meals. sucralfate 2-0 Yes [id number] 1g Take 1 Univers 1 gram 5-18 tablet by ity of tablet 00:00: mouth [place] 00 before Medical meals and Branch at bedtime. carvediloL 2022-0 Yes [id number] 25mg Take 1 Univers 25 mg 5-18 tablet by ity of tablet 00:00: [address] (two) Medical times Branch daily with meals. ondansetron 2-0 Yes [id number] 4mg Take 1 Univers 4 mg tablet 5-18 tablet by ity of 00:00: mouth [place] 00 every 8 Medical (eight) Branch hours. amLODIPine 2-0 Yes [id number] 5mg Take 1 Univers 5 mg tablet 5-18 tablet by ity of 00:00: mouth 00 daily. Medical Branch carvediloL 2022-0 2023- No [id number] 25mg Take 1 Univers 25 mg 5-18 09-06 tablet by ity of tablet 00:00: 00:00 mouth 2 [place] 00 :00 (two) Medical times Branch daily with meals. sucralfate 2022-0 2023- No [id number] 1g Take 1 Univers 1 gram 5-18 03-19 tablet by ity of tablet 00:00: 00:00 mouth [place] 00 :00 before Medical meals and Branch at bedtime. ondansetron 2022- No [id number] 4mg Take 1 Univers 4 mg tablet 11-12 tablet by it y of 00:00: 00:00 mouth [place] 00 :00 every 8 Medical (eight) Branch hours. amLODIPine 2022- No [id number] 5mg Take 1 Univers 5 mg tablet 11-12 tablet by it y of 00:00: 00:00 mouth [place] 00 :00 daily. Medical Branch pantoprazol 2021- No [id number] 40mg Take 1 Univers e 40 mg EC 11-12- tablet by ity of tablet 00:00: 04:59 mouth [place] 00 :00 daily for Medical 14 days. Branch pantoprazol 2021- No [id number] 40mg Take 1 Univers e 40 mg EC 11-12 tablet by ity of tablet 00:00: 04:59 mouth [place] 00 :00 daily for Medical 14 days. Branch pantoprazol 2021- No [id number] 40mg Take 1 Univers e 40 mg EC 11-12 tablet by ity of tablet 00:00: 04:59 mouth [place] 00 :00 daily for Medical 14 days. Branch amoxicillin 2021- No [id number] 1{tbl} Take 1 Univers -clavulanat 5-18 05-24 [...] Indication s: acute pain amoxicillin 2021- No [id number] 1{tbl} Take 1 Univers -clavulanat 5-18 05-24 [...] Indication s: acute pain amoxicillin 2021- No [id number] 1{tbl} Take 1 Univers -clavulanat 5-18 05-24 [...] 1mg 1 mg, Slow Univers ne 11-11 IV Push, ity of (DILAUDID) 18:22: 17:26 Q4HPRN, [place] injection 1 49 :50 Starting Medi yessenia mg on Wed Branch 11/11/21 at 1322, Until Wed11/12/21 at 1226, Routine, Pain (scale 7-10)
U se approved by (Faculty): [facility] PROVIDER morpHINE (2 Yes 2mg 2 mg, Slow Univers mg/mL) 5 IV Push, ity of injection 2 17:57: Q4HPRN, [place] mg 17 Starting Medical on Wed Branch 11/11/21 at 1257, Until Discontinu ed, Routine, Pain (scale 4-6) HYDROmorpho No .2mg 0.2 mg, Un danielle ne 11-11 Slow IV ity of (DILAUDID) 17:27: 18:25 Push, [place] injection 50 :18 Q4HPRN, Medical 0.2 mg Starting Branch on Wed11/11/21 at 1227, Until Wed11/11/21 at 1325, Routine, Pain (scale 7-10)
U se approved by (Faculty): [facility] PROVIDER nicotine 2021-0 Yes 1{patch 1 Patch, Un danielle (NICODERM) 11-11 } Topical, ity o f 14 mg/24 hr 15:45: Administer [place] patch 1 00 over 24 Medical Patch Hours, Branch Q24H, First dose on Wed11/11/21 at 1045, Until Discontinu ed, Routine enoxaparin 0 Yes 30mg 30 mg, Unive rs (LOVENOX) 17 Subcutaneo ity of injection 14:00: us, DAILY, [place] 30 mg 00 First dose Medical on [facility] 11/11/21 at 0900, Until Discontinu ed, Routine carvediloL Yes 25mg 25 mg, Unive rs (COREG) 17 Oral, BID ity of tablet 25 13:00: MEALS, [place] mg 00 First dose Medical on [facility] 11/11/21 at 0800, Until Discontinu ed, Routine sucralfate 0 Yes 1g 1,000 mg Uni vers (CARAFATE) 11-11 (1 g), ity of 100 mg/mL 12:30: Oral, [place] suspension 00 AC+HS, Medical 1,000 mg First dose Branc h on Wed11/11/21 at 0730, Until Discontinu ed, Routine piperacilli 0 Yes 3.375g 3.375 g, Univers n-tazobacta 11-11 [...] mL/hr, IV ity of infusion 06:00: Infusion, [place] 1,000 mL 00 CONTINUOUS Medic al , Starting Branch on Wed11/11/21 at 0100, Until Discontinu ed, Routine pantoprazol Yes 8mg/h 8 mg/hr Un danielle e 11-11 (50 ity of (PROTONIX) 06:00: mL/hr), IV [place] 80 mg in 00 Infusion, Medica l NaCl 0.9% CONTINUOUS Bran ch (NS) 500 mL , Starting infusion on Wed11/11/21 at 0100 pantoprazol 2021- No 80mg 80 mg, Uni vers e 11-11 Slow IV ity of (PROTONIX) 06:00: 05:57 Push, [place] injection 00 :00 ONCE, 1 Medical 80 mg dose, On Branch Wed11/11/21 at 0100 LORazepam 2021- No 1mg 1 mg, Slow U nivers (ATIVAN) 11-11 IV Push, ity of injection 1 06:00: 05:39 ONCE, 1 [place] mg 00 :00 dose, On Medical Branch 11/11/21 at 0100, ITA NaCl 0.9% 2021- No 500mL at 999 Univ ers (NS) bolus 11-11 mL/hr, 500 it y of infusion 06:00: 05:19 mL, IV [place] 500 mL 00 :00 Infusion, Medical ONCE, 1 Branch dose, On Wed11/11/21 at 0100, Routine morpHINE (2 2021- No 2mg 2 mg, Slow Univers mg/mL) 11-11 IV Push, ity of injection 2 05:07: 17:57 Q4HPRN, [place] mg 16 :36 Starting Medical on Wed Branch 11/11/21 at 0007, Until Wed11/11/21 at 1257, Routine, Pain (scale 7-10) ondansetron Yes 4mg 4 mg, Slow Univers (ZOFRAN 11-11 IV Push, ity of (PF)) 05:06: Q6HPRN, [place] injection 4 58 Starting Medi yessenia mg on Wed Branch 11/11/21 at 0006, Until Discontinu ed, Routine, Nausea and Vomiting (N/V) metoclopram Yes 10mg 10 mg, Univ ers james HCl 11-11 Slow IV ity of (REGLAN) 05:00: Push, Q8H, [place] as injection 00 First dose Medi yessenia 10 mg on Branch 11/11/21 at 0000, Until Discontinu ed, Routine [...] [place] mg 00 :00 dose, On Medical [facility] Branch 11/10/21 at 2145, STAT proMETHazin No 25mg 25 mg, IV Univers e 11-11 Piggyback, ity of (PHENERGAN) 02:45: 02:04 ONCE, 1 [place] 25 mg in 00 :00 dose, On Medical NaCl 0.9% [facility] Branch (NS) 50 mL 11/10/21 at IV 2145, ITA piggyback NaCl 0.9% 2021- No 1000mL at 999 Uni vers (NS) bolus 11-11 mL/hr, ity of infusion 02:00: 01:29 1,000 mL, Jake as 1,000 mL 00 :00 IV Medical Infusion, Branch ONCE, 1 dose, On [facility] 11/10/21 at 2100, ITA hydralAZINE 2021- No 20mg 20 mg, Uni vers (APRESOLINE 11-11 Slow IV ity of ) injection 02:00: 01:29 [place] 20 mg 00 :00 ONCE, 1 Medical dose, On Branch [facility] 11/10/21 at 2100, STAT piperacilli 2021- No 3.375g 3.375 g, Univers n-tazobacta 11-11 [...] of therapy: 72 hours iopamidol 2021- No [id number] 100mL 100 mL, Univers (ISOVUE 11-11 Intravenou ity o f 370-500 mL) 01:45: 00:30 s, ONCE, 1 [place] injection 00 :00 dose, On Medica l 100 mL Mon [place] 11/10/21 at 2045, Routine morpHINE (4 2021- No 4mg 4 mg, Slow Univers mg/mL) 11-11 IV Push, ity of injection 4 00:45: 00:17 [place]CE, 1 [place] mg 00 :00 dose, On Medical [facility] Branch 11/10/21 at 1945, STAT ondansetron 2021- No 4mg 4 mg, Slow Univers (ZOFRAN 11-11 IV Push, ity of (PF)) 00:45: 00:16 ONCE, 1 [place] injection 4 00 :00 dose, On Medi yessenia mg [facility] 11/10/21 at 1945, ITA NaCl 0.9% 2021- No 1000mL at 999 Uni vers (NS) bolus 11-11 mL/hr, ity of infusion 00:45: 00:16 1,000 mL, Jake as 1,000 mL 00 :00 IV Medical Infusion, Branch ONCE, 1 dose, On [facility] 11/10/21 at 1945, ITA Acetaminoph Yes 1 tab, PO, Memoria en 300 MG / 6-02 Q6H, 0 l Codeine 20:52: Refill(s) Holly nn Phosphate 00 30 MG Oral Tablet Acetaminoph Yes 1 tab, PO, Memoria en 300 MG / 6-02 Q6H, 0 l Codeine 20:52: Refill(s) Holly nn Phosphate 00 30 MG Oral Tablet Acetaminoph 0 Yes 1 tab, PO, Memoria en 300 [...] tab, PO, l tablet 20:41: BID, 0 [place] 00 Refill(s) Clonidine Yes 0.3 mg = 1 Me moria Hydrochlori 6-02 tab, PO, l de 0.3 MG 20:41: TID, 0 Bill n Oral Tablet 00 Refill(s) carvedilol Yes 25 mg = 1 Me moria 25 mg oral 6-02 tab, PO, l tablet 20:41: BID, 0 [place] 00 Refill(s) Clonidine Yes 0.3 mg = [...] tab, PO, l tablet 20:41: BID, 0 [place] 00 Refill(s) Clonidine Yes 0.3 mg = [...] tab, PO, l tablet 20:41: BID, 0 [place] 00 Refill(s) Clonidine 0 Yes 0.3 mg = 1 Me moria [...] Memoria 8-15 Route: l 22:28: IVP, ONCE, [place] 00 Dosing Weight 90.409, kg, Priority: STAT, Start date: 02/09/18 17:28:00 CDT, Stop date: 02/09/18 17:28:00 CDT Zofran 2018-0 No 4 mg, Memoria 8-15 Route: l 22:28: IVP, Drug Solitario 00 form: INJ, ONCE, Dosing Weight 90.409, kg, Priority: STAT, Start date: 02/09/18 17:28:00 CDT, Stop date: 02/09/18 17:28:00 CDT Morphine 2018-0 No 4 mg, Memoria 8-15 Route: l 22:28: IVP, ONCE, Solitario Dosing Weight 90.409, kg, Priority: STAT, Start date: 02/09/18 17:28:00 CDT, Stop date: 02/09/18 17:28:00 CDT Zofran 2018-0 No 4 mg, Memoria 8-15 Route: l 22:28: IVP, Drug [place] 00 form: INJ, ONCE, Dosing Weight 90.409, kg, Priority: STAT, Start date: 02/09/18 17:28:00 CDT, Stop date: 02/09/18 17:28:00 CDT Morphine 2018-0 No 4 mg, Memoria 8-15 Route: l 22:28: IVP, ONCE, [place] 00 Dosing Weight 90.409, kg, Priority: STAT, Start date: 02/09/18 17:28:00 CDT, Stop date: 02/09/18 17:28:00 CDT Zofran 2018-0 No 4 mg, Memoria 8-15 Route: l 22:28: IVP, Drug Solitario 00 form: INJ, ONCE, Dosing Weight 90.409, kg, Priority: STAT, Start date: 02/09/18 17:28:00 CDT, Stop date: 02/09/18 17:28:00 CDT Morphine 2018-0 No 4 mg, Memoria 8-15 Route: l 22:28: IVP, ONCE, Solitario 00 Dosing Weight 90.409, kg, Priority: STAT, Start date: 02/09/18 17:28:00 CDT, Stop date: 02/09/18 17:28:00 CDT Zofran 2018-0 No 4 mg, Memoria 8-15 Route: l 22:28: IVP, Drug Solitario 00 form: INJ, ONCE, Dosing Weight 90.409, kg, Priority: STAT, Start date: 02/09/18 17:28:00 CDT, Stop date: 02/09/18 17:28:00 CDT Morphine 2018-0 No 4 mg, Memoria 8-15 Route: l 22:28: IVP, ONCE, [place] 00 Dosing Weight 90.409, kg, Priority: STAT, Start date: 02/09/18 17:28:00 CDT, Stop date: 02/09/18 17:28:00 CDT Zofran 2018-0 No 4 mg, Memoria 8-15 Route: l 22:28: IVP, Drug Lib[place] 00 form: INJ, ONCE, Dosing Weight 90.409, kg, Priority: STAT, Start date: 02/09/18 17:28:00 CDT, Stop date: 02/09/18 17:28:00 CDT Morphine 2018-0 No 4 mg, Memoria 8-15 Route: l 22:28: IVP, ONCE, Solitario 00 Dosing Weight 90.409, kg, Priority: STAT, Start date: 02/09/18 17:28:00 CDT, Stop date: 02/09/18 17:28:00 CDT Zofran 2018-0 No 4 mg, Memoria 8-15 Route: l 22:28: IVP, Drug Solitario 00 form: INJ, ONCE, Dosing Weight 90.409, kg, Priority: STAT, Start date: 02/09/18 17:28:00 CDT, Stop date: 02/09/18 17:28:00 CDT Morphine 2018-0 No 4 mg, Memoria 8-15 Route: l 22:28: IVP, ONCE, [place] 00 Dosing Weight 90.409, kg, Priority: STAT, Start date: 02/09/18 17:28:00 CDT, Stop date: 02/09/18 17:28:00 CDT Nitroglycer 2018-0 No 1 inch, Mem oria in 0.02 8-15 Route: l MG/MG 22:27: TOP, Solitario Topical 00 Dosing Ointment Weight 90.409, kg, ONCE, STAT, Start date: 02/09/18 17:27:00 CDT, Stop date: 02/09/18 17:27:00 CDT Nitroglycer 2018-0 No 1 inch, Mem oria in 0.02 8-15 Route: l MG/MG 22:27: TOP, Solitario Topical 00 Dosing Ointment Weight 90.409, kg, ONCE, STAT, Start date: 02/09/18 17:27:00 CDT, Stop date: 02/09/18 17:27:00 CDT Nitroglycer 2018-0 No 1 inch, Mem oria in 0.02 8-15 Route: l MG/MG 22:27: TOP, [place] Topical 00 Dosing Ointment Weight 90.409, kg, ONCE, STAT, Start date: 02/09/18 17:27:00 CDT, Stop date: 02/09/18 17:27:00 CDT Nitroglycer 2018-0 No 1 inch, Mem oria in 0.02 8-15 Route: l MG/MG 22:27: TOP, [place] Topical 00 Dosing Ointment Weight 90.409, kg, ONCE, STAT, Start date: 02/09/18 17:27:00 CDT, Stop date: 02/09/18 17:27:00 CDT Nitroglycer 2018-0 No 1 inch, Mem oria in 0.02 8-15 Route: l MG/MG 22:27: TOP, Solitario Topical 00 Dosing Ointment Weight 90.409, kg, ONCE, STAT, Start date: 02/09/18 17:27:00 CDT, Stop date: 02/09/18 17:27:00 CDT Nitroglycer 2018-0 No 1 inch, Mem oria in 0.02 8-15 Route: l MG/MG 22:27: TOP, [place] Topical 00 Dosing Ointment Weight 90.409, kg, ONCE, STAT, Start date: 02/09/18 17:27:00 CDT, Stop date: 02/09/18 17:27:00 CDT Nitroglycer 2018-0 No 1 inch, Mem oria in 0.02 8-15 Route: l MG/MG 22:27: TOP, Solitario Topical 00 Dosing Ointment Weight 90.409, kg, ONCE, STAT, Start date: 02/09/18 17:27:00 CDT, Stop date: 02/09/18 17:27:00 CDT NS (Bolus) No 1,000 mL, Me moria IV 8-15 1,000 l 18:43: ml/hr, Lib[place] 00 Infuse Over: 1 hr, Route: IV, 1,000, Drug form: INJ, ONCE, Priority: STAT, Dosing Weight 90.409 kg, Start date: 02/09/18 13:43:00 CDT, Stop date: 02/09/18 13:43:00 CDT Zofran No Notes: Memoria 02-09 (Same as: l 18:43: Zofran) Solitario 00 MEDICATION WASTE Product Size: 4 mg Product Wasted: ___ mg NS (Bolus) No 1,000 mL, Me moria IV 8-15 1,000 l 18:43: ml/hr, Solitario 00 Infuse Over: 1 hr, Route: IV, 1,000, Drug form: INJ, ONCE, Priority: STAT, Dosing Weight 90.409 kg, Start date: 02/09/18 13:43:00 CDT, Stop date: 02/09/18 13:43:00 CDT Zofran No Notes: Memoria 02-09 (Same as: l 18:43: Zofran) Solitario 00 MEDICATION WASTE Product Size: 4 mg Product Wasted: ___ mg NS (Bolus) No 1,000 mL, Me moria IV 8-15 1,000 l 18:43: ml/hr, Solitario 00 Infuse Over: 1 hr, Route: IV, 1,000, Drug form: INJ, ONCE, Priority: STAT, Dosing Weight 90.409 kg, Start date: 02/09/18 13:43:00 CDT, Stop date: 02/09/18 13:43:00 CDT Zofran No Notes: Memoria 02-09 (Same as: l 18:43: Zofran) Solitario 00 MEDICATION WASTE Product Size: 4 mg Product Wasted: ___ mg NS (Bolus) No 1,000 mL, Me moria IV 8-15 1,000 l 18:43: ml/hr, [place] 00 Infuse Over: 1 hr, Route: IV, 1,000, Drug form: INJ, ONCE, Priority: STAT, Dosing Weight 90.409 kg, Start date: 02/09/18 13:43:00 CDT, Stop date: 02/09/18 13:43:00 CDT Zofran 0 No Notes: Memoria 815 (Same as: l 18:43: Zofran) Solitario 00 MEDICATION WASTE Product Size: 4 mg Product Wasted: ___ mg NS (Bolus) No 1,000 mL, Me moria IV 8-15 1,000 l 18:43: ml/hr, Solitario 00 Infuse Over: 1 hr, Route: IV, 1,000, Drug form: INJ, ONCE, Priority: STAT, Dosing Weight 90.409 kg, Start date: 02/09/18 13:43:00 CDT, Stop date: 02/09/18 13:43:00 CDT Zofran 0 No Notes: Memoria 02-09 (Same as: l 18:43: Zofran) Solitario 00 MEDICATION WASTE Product Size: 4 mg Product Wasted: ___ mg NS (Bolus) No 1,000 mL, Me moria IV 8-15 1,000 l 18:43: ml/hr, Solitario 00 Infuse Over: 1 hr, Route: IV, 1,000, Drug form: INJ, ONCE, Priority: STAT, Dosing Weight 90.409 kg, Start date: 02/09/18 13:43:00 CDT, Stop date: 02/09/18 13:43:00 CDT Zofran 0 No Notes: Memoria 8-15 (Same as: l 18:43: Zofran) Solitario 00 MEDICATION WASTE Product Size: 4 mg Product Wasted: ___ mg NS (Bolus) No 1,000 mL, Me moria IV 8-15 1,000 l 18:43: ml/hr, Solitario 00 Infuse Over: 1 hr, Route: IV, 1,000, Drug form: INJ, ONCE, Priority: STAT, Dosing Weight 90.409 kg, Start date: 02/09/18 13:43:00 CDT, Stop date: 02/09/18 13:43:00 CDT Zofran No Notes: Memoria 8-15 (Same as: l 18:43: Zofran) MEDICATION WASTE [...] days Memor ia 01-25 l 14:52: MEDICATION Solitario 00 WASTE Product Size: 30 mg Product Wasted: _15__ mg NS (Bolus) No 1,000 mL, Me moria IV 01-25 1,000 l 14:52: ml/hr, Infuse Over: 1 hr, Route: IV, 1,000, Drug form: INJ, ONCE, Priority: STAT, Dosing Weight 101.534 kg, Start date: 01/25/18 9:52:00 CDT, Stop date: 01/25/18 9:52:00 CDT Ketorolac No 4 days Memor ia 01-25 l 14:52: MEDICATION Solitario 00 WASTE Product Size: 30 mg Product Wasted: _15__ mg NS (Bolus) No 1,000 mL, Me moria IV 01-25 1,000 l 14:52: ml/hr, Infuse Over: 1 hr, Route: IV, 1,000, Drug form: INJ, ONCE, Priority: STAT, Dosing Weight 101.534 kg, Start date: 01/25/18 9:52:00 CDT, Stop date: 01/25/18 9:52:00 CDT Ketorolac 2017-0 No 4 days Memor ia 01-25 l 14:52: MEDICATION [place] WASTE Product Size: 30 mg Product Wasted: _15__ mg NS (Bolus) No 1,000 mL, Me moria IV 01-25 1,000 l 14:52: ml/hr, Solitario 00 Infuse Over: 1 hr, Route: IV, 1,000, Drug form: INJ, ONCE, Priority: STAT, Dosing Weight 101.534 kg, Start date: 01/25/18 9:52:00 CDT, Stop date: 01/25/18 9:52:00 CDT Ketorolac 2017-0 No 4 days Memor ia 01-25 l 14:52: MEDICATION Solitario WASTE Product Size: 30 mg Product Wasted: _15__ mg NS (Bolus) No 1,000 mL, Me moria IV 01-25 1,000 l 14:52: ml/hr, Solitario 00 Infuse Over: 1 hr, Route: IV, 1,000, Drug form: INJ, ONCE, Priority: STAT, Dosing Weight 101.534 kg, Start date: 01/25/18 9:52:00 CDT, Stop date: 01/25/18 9:52:00 CDT Ketorolac 2017-0 No 4 days Memor ia 01-25 l 14:52: MEDICATION Solitario 00 WASTE Product Size: 30 mg Product Wasted: _15__ mg NS (Bolus) No 1,000 mL, Me moria IV 01-25 1,000 l 14:52: ml/hr, Lib[place] 00 Infuse Over: 1 hr, Route: IV, 1,000, Drug form: INJ, ONCE, Priority: STAT, Dosing Weight 101.534 kg, Start date: 01/25/18 9:52:00 CDT, Stop date: 01/25/18 9:52:00 CDT Ketorolac 2017-0 No 4 days Memor ia 01-25 l 14:52: MEDICATION [place] 00 WASTE Product Size: 30 mg Product Wasted: _15__ mg NS (Bolus) No 1,000 mL, Me moria IV 01-25 1,000 l 14:52: ml/hr, [place] 00 Infuse Over: 1 hr, Route: IV, 1,000, Drug form: INJ, ONCE, Priority: STAT, Dosing Weight 101.534 kg, Start date: 01/25/18 9:52:00 CDT, Stop date: 01/25/18 9:52:00 CDT Ketorolac No 4 days Memor ia 01-25 l 14:52: MEDICATION WASTE Product Size: 30 mg Product Wasted: _15__ mg NS (Bolus) No 1,000 mL, Me moria IV 01-25 1,000 l 14:52: ml/hr, Infuse Over: 1 hr, Route: IV, [...] 25 mg = 1 M emoria e 11-01 tab, PO, l Hydrochlori 20:03: Q4H, PRN [...] 2 tab, Memoria en 300 MG / 11-01 PO, Q4H, l Codeine 20:03: PRN Pain, Holly nn Phosphate 00 X 2 day, # 60 MG Oral 20 ea, 0 Tablet Refill(s) [Tylenol with Codeine #4] Promethazin Yes 25 mg = 1 M emoria e 11-01 tab, PO, l Hydrochlori 20:03: Q4H, PRN He rmann de 25 MG 00 Nausea, # Oral Tablet 18 tab, 0 Refill(s) Hydromorpho No Notes: Joe peter ne 11-01 Same as l 18:20: Dilaudid Lib[place] NS 1,000 mL No 1,000 mL, M [...] Memoria 11-01 (Same as: l 18:20: Benadryl) Hydromorpho No Notes: Joe peter ne 11-01 Same as l 18:20: Dilaudid Solitario 00 NS 1,000 mL No 1,000 mL, M emoria 11-01 Rate: l 18:20: 1,000 Libby 00 ml/hr, Infuse over: 1 hr, Route: IV, Dosing Weight 99.744 kg, Total Volume: 1,000, Start date: 11/01/17 13:20:00 CDT, Duration: 1 doses or times, Stop date: 11/01/17 14:19:00 CDT, Bolus Dose, 2.17, m2 Prochlorper No Notes: Joe peter azine 5-07 (Same as: l 18:20: Compazine) Benadryl No Notes: Memoria 5-07 (Same as: l 18:20: Benadryl) Solitario 00 Hydromorpho No Notes: Joe peter ne 5-07 Same as l 18:20: Dilaudid [place] 00 NS 1,000 mL No 1,000 mL, [...] Benadryl) Hydromorpho No Notes: Joe peter ne 5-07 Same as l 18:20: Dilaudid [place] 00 NS 1,000 mL No 1,000 mL, M emoria 5-07 Rate: l 18:20: 1,000 Libby 00 ml/hr, Infuse over: 1 hr, Route: IV, Dosing Weight 99.744 kg, Total Volume: 1,000, Start date: 11/01/17 13:20:00 CDT, Duration: 1 doses or times, Stop date: 11/01/17 14:19:00 CDT, Bolus Dose, 2.17, m2 Prochlorper No Notes: Joe peter azine 5-07 (Same as: l 18:20: Compazine) Benadryl No Notes: Memoria 5-07 (Same as: l 18:20: Benadryl) Libby Hydromorpho No Notes: Joe peter ne 5-07 Same as l 18:20: Dilaudid Solitario 00 NS 1,000 mL No 1,000 mL, M emoria 5-07 Rate: l 18:20: 1,000 Solitario 00 ml/hr, Infuse over: 1 hr, Route: IV, Dosing Weight 99.744 kg, Total Volume: 1,000, Start date: 11/01/17 13:20:00 CDT, Duration: 1 doses or times, Stop date: 11/01/17 14:19:00 CDT, Bolus Dose, 2.17, m2 Prochlorper No Notes: Joe peter azine 5-07 (Same as: l 18:20: Compazine) Solitario Benadryl No Notes: Memoria 5-07 (Same as: l 18:20: Benadryl) Solitario Hydromorpho No Notes: Joe peter ne 5-07 Same as l 18:20: Dilaudid Solitario 00 NS 1,000 mL No 1,000 mL, M emoria 507 Rate: l 18:20: 1,000 Libby 00 ml/hr, Infuse over: 1 hr, Route: IV, Dosing Weight 99.744 kg, Total Volume: 1,000, Start date: 11/01/17 13:20:00 CDT, Duration: 1 doses or times, Stop date: 11/01/17 14:19:00 CDT, Bolus Dose, 2.17, m2 Prochlorper No Notes: Joe peter azine 5-07 (Same as: l 18:20: Compazine) Solitario Benadryl No Notes: Memoria 5-07 (Same as: l 18:20: Benadryl) Solitario Hydromorpho No Notes: Joe peter ne 5-07 Same as l 18:20: Dilaudid Solitario 00 NS 1,000 mL No 1,000 mL, [...] tab, PO, l Oral Tablet 04:00: QID-Before Libby [Reglan] 00 Meals, PRN nausea and vomiting, [...] tab, PO, l Oral Tablet 04:00: QID-Before Libby [Reglan] 00 Meals, PRN nausea and vomiting, [...] tab, PO, l Oral Tablet 04:00: QID-Before Libby [Reglan] 00 Meals, PRN nausea and vomiting, X 10 day, # 40 tab, 0 Refill(s) Metoclopram 2017-1 Yes 10 mg = 1 M emoria james 10 MG 1-20 tab, PO, l Oral Tablet 04:00: QID-Before Libby [Reglan] 00 Meals, PRN nausea and vomiting, [...] 1-20 PO, Q4H, l butalbital 03:59: PRN Libby 50 MG / 00 Headache, Caffeine 40 Do not MG Oral exceed 6 Capsule capsules [Fioricet] in 24 hours, X 7 day, # 42 ea, 0 Refill(s) Acetaminoph 2016-06 Yes 1-2 cap, Me moria en 300 MG / 1-20 PO, Q4H, l butalbital 03:59: PRN Libby 50 MG / 00 Headache, Caffeine 40 [...] 1-20 PO, Q4H, l butalbital 03:59: PRN Libby 50 MG / 00 Headache, Caffeine 40 Do not MG Oral exceed 6 Capsule capsules [Fioricet] in 24 hours, X 7 day, # 42 ea, 0 Refill(s) Acetaminoph 2016-06 Yes 1-2 cap, Me moria en 300 MG / 1-20 PO, Q4H, l butalbital 03:59: PRN Libby 50 MG / 00 Headache, Caffeine 40 Do not MG Oral exceed 6 Capsule capsules [Fioricet] in 24 hours, X 7 day, # 42 ea, 0 Refill(s) Acetaminoph 2016-06 Yes 1-2 cap, Me moria en 300 MG / 1-20 PO, Q4H, l butalbital 03:59: PRN Libby 50 MG / 00 Headache, Caffeine 40 [...] 95.455, kg, ONCE, 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/16/17 21:14:00 CANAL DRIVER, Stop date: 05/16/17 21:14:00 CANAL DRIVER, Ketamine 2016-06 No 9.5 mg, Memori a 1-20 Route: l 03:14: IVP, ONCE, Dosing Weight 95.455, kg, Priority: STAT, 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/16/17 21:14:00 CANAL DRIVER, Stop date: 05/16/17 21:14:00 CANAL DRIVER NS (Bolus) 2016-06 No 1,000 mL, Me moria IV -20 1,000 l 03:14: ml/hr, Infuse Over: 1 hr, Route: IV, ONCE, Priority: STAT, Dosing Weight 95.455 kg, 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/16/17 21:14:00 CANAL DRIVER, Stop date: 05/16/17 21:14:00 CANAL DRIVER lidocaine 2016-06 No Route: IV, Me moria 2% 1-20 Dosing l injectable 03:14: Weight Holly nn solution 00 95.455, kg, ONCE, 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/16/17 21:14:00 CANAL DRIVER, Stop date: 05/16/17 21:14:00 CANAL DRIVER, Ketamine 2016-06 No 9.5 mg, Memori a 1-20 Route: l 03:14: IVP, ONCE, Solitario 00 Dosing Weight 95.455, kg, Priority: STAT, 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/16/17 21:14:00 CANAL DRIVER, Stop date: 05/16/17 21:14:00 CANAL DRIVER NS (Bolus) 2016-06 No 1,000 mL, Me moria IV 1-20 1,000 l 03:14: ml/hr, Libby 00 Infuse Over: 1 hr, Route: IV, ONCE, Priority: STAT, Dosing Weight 95.455 kg, 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/16/17 21:14:00 CANAL DRIVER, Stop date: 05/16/17 21:14:00 CANAL DRIVER lidocaine 2016-06 No Route: IV, Me moria 2% 1-20 Dosing l injectable 03:14: Weight Holly nn solution 00 95.455, kg, ONCE, 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/16/17 21:14:00 CANAL DRIVER, Stop date: 05/16/17 21:14:00 CANAL DRIVER, Ketamine 2016-06 No 9.5 mg, Memori a 1-20 Route: l 03:14: IVP, ONCE, Solitario 00 Dosing Weight 95.455, kg, Priority: STAT, 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/16/17 21:14:00 CANAL DRIVER, Stop date: 05/16/17 21:14:00 CANAL DRIVER NS (Bolus) 2016-06 No 1,000 mL, Me moria IV 1-20 1,000 l 03:14: ml/hr, Libby 00 Infuse Over: 1 hr, Route: IV, ONCE, Priority: STAT, Dosing Weight 95.455 kg, 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/16/17 21:14:00 CANAL DRIVER, Stop date: 05/16/17 21:14:00 CANAL DRIVER lidocaine 2016-06 No Route: IV, Me moria 2% 1-20 Dosing l injectable 03:14: Weight Holly nn solution 00 95.455, kg, ONCE, 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/16/17 21:14:00 CANAL DRIVER, Stop date: 05/16/17 21:14:00 CANAL DRIVER, Ketamine 2016-06 No 9.5 mg, Memori a 1-20 Route: l 03:14: IVP, ONCE, Solitario 00 Dosing Weight 95.455, kg, Priority: STAT, 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/16/17 21:14:00 CANAL DRIVER, Stop date: 05/16/17 21:14:00 CANAL DRIVER NS (Bolus) 2016-06 No 1,000 mL, Me moria IV 1-20 1,000 l 03:14: ml/hr, Solitario 00 Infuse Over: 1 hr, Route: IV, ONCE, Priority: STAT, Dosing Weight 95.455 kg, 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/16/17 21:14:00 CANAL DRIVER, Stop date: 05/16/17 21:14:00 CANAL DRIVER lidocaine 2016-06 No Route: IV, Me moria 2% 1-20 Dosing l injectable 03:14: Weight Holly nn solution 00 95.455, kg, ONCE, 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/16/17 21:14:00 CANAL DRIVER, Stop date: 05/16/17 21:14:00 CANAL DRIVER, Ketamine 2016-06 No 9.5 mg, Memori a 1-20 Route: l 03:14: IVP, ONCE, Solitario 00 Dosing Weight 95.455, kg, Priority: STAT, 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/16/17 21:14:00 CANAL DRIVER, Stop date: 05/16/17 21:14:00 CANAL DRIVER NS (Bolus) 2016-06 No 1,000 mL, Me moria IV 1-20 1,000 l 03:14: ml/hr, Solitario Infuse Over: 1 hr, Route: IV, ONCE, Priority: STAT, Dosing Weight 95.455 kg, 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/16/17 21:14:00 CANAL DRIVER, Stop date: 05/16/17 21:14:00 CANAL DRIVER lidocaine 2016-06 No Route: IV, Me moria 2% 1-20 Dosing l injectable 03:14: Weight Holly nn solution 00 95.455, kg, ONCE, 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/16/17 21:14:00 CANAL DRIVER, Stop date: 05/16/17 21:14:00 CANAL DRIVER, Ketamine 2016-06 No 9.5 mg, Memori a 1-20 Route: l 03:14: IVP, ONCE, Solitario 00 Dosing Weight 95.455, kg, Priority: STAT, 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/16/17 21:14:00 CANAL DRIVER, Stop date: 05/16/17 21:14:00 CANAL DRIVER NS (Bolus) 2016-06 No 1,000 mL, Me moria IV 1-20 1,000 l 03:14: ml/hr, Solitario 00 Infuse Over: 1 hr, Route: IV, ONCE, Priority: STAT, Dosing Weight 95.455 kg, 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/16/17 21:14:00 CANAL DRIVER, Stop date: 05/16/17 21:14:00 CANAL DRIVER lidocaine 2016-06 No Route: IV, Me moria 2% 1-20 Dosing l injectable 03:14: Weight Holly nn solution 00 95.455, kg, ONCE, 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/16/17 21:14:00 CANAL DRIVER, Stop date: 05/16/17 21:14:00 CANAL DRIVER, Ketamine 2016-06 No 9.5 mg, Memori a 1-20 Route: l 03:14: IVP, ONCE, Libby 00 Dosing Weight 95.455, kg, Priority: STAT, 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/16/17 21:14:00 CANAL DRIVER, Stop date: 05/16/17 21:14:00 CANAL DRIVER NS (Bolus) 2016-06 No 1,000 mL, Me moria IV 1-20 1,000 l 03:14: ml/hr, Libby 00 Infuse Over: 1 hr, Route: IV, ONCE, Priority: STAT, Dosing Weight 95.455 kg, 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/16/17 21:14:00 CANAL DRIVER, Stop date: 05/16/17 21:14:00 CANAL DRIVER Dexamethaso 2016-06 No Notes: Joe peter ne 1-20 dexamethas l 01:27: one 10 Solitario 00 mg/1 ml VL INJ PF MEDICATION WASTE Product Size: 10 mg Product Wasted: ___ mg Ketorolac 2016- No 4 days Memor ia 1-20 l 01:27: MEDICATION Libby 00 WASTE Product Size: 30 mg Product Wasted: ___ mg Benadryl 2016-06 No Notes: Memoria 1-20 (Same as: l 01:27: Benadryl) Libby Dexamethaso 2016-06 No Notes: Joe peter ne 1-20 dexamethas l 01:27: one 10 Solitario 00 mg/1 ml VL INJ PF MEDICATION WASTE Product Size: 10 mg Product Wasted: ___ mg Ketorolac 2016-06 No 4 days Memor ia 1-20 l 01:27: MEDICATION Solitario 00 WASTE Product Size: 30 mg Product Wasted: ___ mg Benadryl 2016-06 No Notes: Memoria 1-20 (Same as: l :27: Benadryl) Libby Dexamethaso 2016-06 No Notes: Joe peter ne 1-20 dexamethas l 01:27: one 10 Lib[place] 00 mg/1 ml VL INJ PF MEDICATION WASTE Product Size: 10 mg Product Wasted: ___ mg Ketorolac 2016-06 No 4 days Memor ia 1-20 l 01:27: MEDICATION Libby 00 WASTE Product Size: 30 mg Product Wasted: ___ mg Benadryl 2016-06 No Notes: Memoria 1-20 (Same as: l :27: Benadryl) Libby Dexamethaso 2016-06 No Notes: Joe peter ne 1-20 dexamethas l 01:27: one 10 Solitario 00 mg/1 ml VL INJ PF MEDICATION WASTE Product Size: 10 mg Product Wasted: ___ mg Ketorolac 2016-06 No 4 days Memor ia 1-20 l 01:27: MEDICATION Solitario 00 WASTE Product Size: 30 mg Product Wasted: ___ mg Benadryl 2016-06 No Notes: Memoria 1-20 (Same as: l :27: Benadryl) Solit[facility] 00 Dexamethaso 2016-06 No Notes: Joe peter ne 1-20 dexamethas l 01:27: one 10 Solitario 00 mg/1 ml VL INJ PF MEDICATION WASTE Product Size: 10 mg Product Wasted: ___ mg Ketorolac 2016-06 No 4 days Memor ia 1-20 l 01:27: MEDICATION [place] 00 WASTE Product Size: 30 mg Product Wasted: ___ mg Benadryl 2016-06 No Notes: Memoria 1-20 (Same as: l 01:27: Benadryl) [place] Dexamethaso 2016-06 No Notes: Joe peter ne 1-20 dexamethas l 01:27: one 10 [place] 00 mg/1 ml VL INJ PF MEDICATION WASTE Product Size: 10 mg Product Wasted: ___ mg Ketorolac 2016-06 No 4 days Memor ia 1-20 l 01:27: MEDICATION Solit[facility] WASTE Product Size: 30 mg Product Wasted: ___ mg Benadryl 2016-06 No Notes: Memoria 1-20 (Same as: l 01:27: Benadryl) Solit[facility] 00 Dexamethaso 2016-06 No Notes: Joe peter ne 1-20 dexamethas l 01:27: one 10 [place] 00 mg/1 ml VL INJ PF MEDICATION WASTE Product Size: 10 mg Product Wasted: ___ mg Ketorolac 2016-06 No 4 days Memor ia 1-20 l 01:27: MEDICATION [place] WASTE Product Size: 30 mg Product Wasted: ___ mg Benadryl 2016-06 No Notes: Memoria 1-20 (Same as: l 01:27: Benadryl) Solit[facility] 00 Compazine 2016-06 No Notes: Memori a 1-20 (Same as: l 01:26: Compazine) Solitario 00 NS (Bolus) 2016-06 No 1,000 mL, Me moria IV 1-20 1,000 l 01:26: ml/hr, [place] 00 Infuse Over: 1 hr, Route: IV, 1,000, Drug form: INJ, ONCE, Priority: STAT, Dosing Weight 95.455 kg, 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, Stop 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: 05/16/17 19:26:00 CANAL DRIVER Compazine 2016-06 No Notes: Memori a 1-20 (Same as: l : Compazine) [place] 00 NS (Bolus) 2016-06 No 1,000 mL, Me moria IV 1-20 1,000 l 01:26: ml/hr, [place] 00 Infuse Over: 1 hr, Route: IV, 1,000, Drug form: INJ, ONCE, Priority: STAT, Dosing Weight 95.455 kg, 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, Stop date: 05/16/17 19:26:00 CANAL DRIVER Compazine 2016-06 No Notes: Memori a 1-20 (Same as: l : Compazine) [place] 00 NS (Bolus) 2016-06 No 1,000 mL, Me moria IV 1-20 1,000 l 01:26: ml/hr, Solitario 00 Infuse Over: 1 hr, Route: IV, 1,000, Drug form: INJ, ONCE, Priority: STAT, Dosing Weight 95.455 kg, 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, Stop date: 05/16/17 19:26:00 CANAL DRIVER Compazine 2016-06 No Notes: Memori a 1-20 (Same as: l : Compazine) [place] 00 NS (Bolus) 2016-06 No 1,000 mL, Me moria IV 1-20 1,000 l 01:26: ml/hr, [place] 00 Infuse Over: 1 hr, Route: IV, 1,000, Drug form: INJ, ONCE, Priority: STAT, Dosing Weight 95.455 kg, 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, Stop date: 05/16/17 19:26:00 CANAL DRIVER Compazine 2016-06 No Notes: Memori a 1-20 (Same as: l : Compazine) [place] 00 NS (Bolus) 2016-06 No 1,000 mL, Me moria IV 1-20 1,000 l 01:26: ml/hr, [place] 00 Infuse Over: 1 hr, Route: IV, 1,000, Drug form: INJ, ONCE, Priority: STAT, Dosing Weight 95.455 kg, 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, Stop date: 05/16/17 19:26:00 CANAL DRIVER Compazine 2016-06 No Notes: Memori a 1-20 (Same as: l :: Compazine) Solit[facility] 00 NS (Bolus) 2016-06 No 1,000 mL, Me moria IV 1-20 1,000 l 01:26: ml/hr, Solitario 00 Infuse Over: 1 hr, Route: IV, 1,000, Drug form: INJ, ONCE, Priority: STAT, Dosing Weight 95.455 kg, 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, Stop date: 05/16/17 19:26:00 CANAL DRIVER Compazine 2016-06 No Notes: Memori a 1-20 (Same as: l : Compazine) Solitario 00 NS (Bolus) 2016-06 No 1,000 mL, Me moria IV 1-20 1,000 l 01:26: ml/hr, Solitario 00 Infuse Over: 1 hr, Route: IV, 1,000, Drug form: INJ, ONCE, Priority: STAT, Dosing Weight 95.455 kg, 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, Stop date: 05/16/17 19:26:00 CANAL DRIVER Methocarbam 2016-06 Yes 1,000 mg = Memoria [...] 11:19:00 CDT, Stop date: 04/09/17 11:19:00 CDT Dexamethaso 2016-06 No Notes: Joe peter ne 0-13 dexamethas l 14:59: one 10 Libby 00 mg/1 ml VL INJ PF MEDICATION WASTE Product Size: 10 mg Product Wasted: ___ mg Hydromorpho 2016-06 No Notes: Joe peter ne 0-13 Same as l 14:59: Dilaudid Benadryl 2016-06 No Notes: Memoria 0-13 (Same as: l 14:59: Benadryl) Robaxin 2016-06 No Notes: Memoria 0-13 (Same l 14:59: as:Robaxin ) Reglan 2016-06 No Notes: Memoria 0-13 (Same as: l 14:59: Reglan) Libby sodium 2016-06 No 1,000 mL, Memori a chloride 0-13 Rate: l 0.9% 1000 14:59: 1,000 Libby ml INJ 00 ml/hr, 1,000 mL Infuse over: 1 hr, Route: IV, Dosing Weight 89.864 kg, Total Volume: 1,000, Start date: 04/09/17 9:59:00 CDT, Duration: 1 doses or times, Stop date: 04/09/17 10:58:00 CDT, Bolus Dose Dexamethaso 2016-06 No Notes: Joe peter ne 0-13 dexamethas l 14:59: one 10 Libby 00 mg/1 ml VL INJ PF MEDICATION WASTE Product Size: 10 mg Product Wasted: ___ mg Hydromorpho 2016-06 No Notes: Joe peter ne 0-13 Same as l 14:59: Dilaudid Solitario 00 Benadryl 2016-06 No Notes: Memoria 0-13 (Same as: l 14:59: Benadryl) Libby Robaxin 2016-06 No Notes: Memoria 0-13 (Same l 14:59: as:Robaxin Libby 00 ) Reglan 2016-06 No Notes: Memoria 0-13 (Same as: l 14:59: Reglan) Solitario sodium 2016-06 No 1,000 mL, Memori a chloride 0-13 Rate: l 0.9% 1000 14:59: 1,000 Libby ml INJ 00 ml/hr, 1,000 mL Infuse over: 1 hr, Route: IV, Dosing Weight 89.864 kg, Total Volume: 1,000, Start date: 04/09/17 9:59:00 CDT, Duration: 1 doses or times, Stop date: 04/09/17 10:58:00 CDT, Bolus Dose Dexamethaso 2016-06 No Notes: Joe peter ne 0-13 dexamethas l 14:59: one 10 Libby 00 mg/1 ml VL INJ PF MEDICATION WASTE Product Size: 10 mg Product Wasted: ___ mg Hydromorpho 2016-06 No Notes: Joe peter ne 0-13 Same as l 14:59: Dilaudid Libby 00 Benadryl 2016-06 No Notes: Memoria 0-13 (Same as: l 14:59: Benadryl) Solitario 00 Robaxin 2016-06 No Notes: Memoria 0-13 (Same l 14:59: as:Robaxin Libby 00 ) Reglan 2016-06 No Notes: Memoria 0-13 (Same as: l 14:59: Reglan) Solitario sodium 2016-06 No 1,000 mL, Memori a chloride 0-13 Rate: l 0.9% 1000 14:59: 1,000 Libby ml INJ 00 ml/hr, 1,000 mL Infuse over: 1 hr, Route: IV, Dosing Weight 89.864 kg, Total Volume: 1,000, Start date: 04/09/17 9:59:00 CDT, Duration: 1 doses or times, Stop date: 04/09/17 10:58:00 CDT, Bolus Dose Dexamethaso 2016-06 No Notes: Joe peter ne 0-13 dexamethas l 14:59: one 10 Libby 00 mg/1 ml VL INJ PF MEDICATION WASTE Product Size: 10 mg Product Wasted: ___ mg Hydromorpho 2016-06 No Notes: Joe peter ne 0-13 Same as l 14:59: Dilaudid Libby 00 Benadryl 2016-06 No Notes: Memoria 0-13 (Same as: l 14:59: Benadryl) Libby 00 Robaxin 2016-06 No Notes: Memoria 0-13 (Same l 14:59: as:Robaxin Libby 00 ) Reglan 2016-06 No Notes: Memoria 0-13 (Same as: l 14:59: Reglan) sodium 2016-06 No 1,000 mL, Memori a chloride 0-13 Rate: l 0.9% 1000 14:59: 1,000 Libby ml INJ 00 ml/hr, 1,000 mL Infuse over: 1 hr, Route: IV, Dosing Weight 89.864 kg, Total Volume: 1,000, Start date: 04/09/17 9:59:00 CDT, Duration: 1 doses or times, Stop date: 04/09/17 10:58:00 CDT, Bolus Dose Dexamethaso 2016-06 No Notes: Joe peter ne 0-13 dexamethas l 14:59: one 10 Libby 00 mg/1 ml VL INJ PF MEDICATION WASTE Product Size: 10 mg Product Wasted: ___ mg Hydromorpho 2016-06 No Notes: Joe peter ne 0-13 Same as l 14:59: Dilaudid Libby 00 Benadryl 2016-06 No Notes: Memoria 0-13 (Same as: l 14:59: Benadryl) Solitario Robaxin 2016-06 No Notes: Memoria 0-13 (Same l 14:59: as:Robaxin Solitario ) Reglan 2016-06 No Notes: Memoria 0-13 (Same as: l 14:59: Reglan) Solitario 00 sodium 2016-06 No 1,000 mL, Memori a chloride 0-13 Rate: l 0.9% 1000 14:59: 1,000 Libby ml INJ 00 ml/hr, 1,000 mL Infuse over: 1 hr, Route: IV, Dosing Weight 89.864 kg, Total Volume: 1,000, Start date: 04/09/17 9:59:00 CDT, Duration: 1 doses or times, Stop date: 04/09/17 10:58:00 CDT, Bolus Dose Dexamethaso 2016-06 No Notes: Joe peter ne 0-13 dexamethas l 14:59: one 10 Libby 00 mg/1 ml VL INJ PF MEDICATION WASTE Product Size: 10 mg Product Wasted: ___ mg Hydromorpho 2016-06 No Notes: Joe peter ne 0-13 Same as l 14:59: Dilaudid Libby 00 Benadryl 2016-06 No Notes: Memoria 0-13 (Same as: l 14:59: Benadryl) Solitario Robaxin 2016-06 No Notes: Memoria 0-13 (Same l 14:59: as:Robaxin Solitario ) Reglan 2016-06 No Notes: Memoria 0-13 (Same as: l 14:59: Reglan) Libby 00 sodium 2016-06 No 1,000 mL, Memori a chloride 0-13 Rate: l 0.9% 1000 14:59: 1,000 Solitario ml INJ 00 ml/hr, 1,000 mL Infuse over: 1 hr, Route: IV, Dosing Weight 89.864 kg, Total Volume: 1,000, Start date: 04/09/17 9:59:00 CDT, Duration: 1 doses or times, Stop date: 04/09/17 10:58:00 CDT, Bolus Dose Robaxin 2016-06 No Notes: Memoria 0-13 (Same l 14:59: as:Robaxin Libby 00 ) Reglan 2016-06 No Notes: Memoria 0-13 (Same as: l 14:59: Reglan) Solitario 00 sodium 2016-06 No 1,000 mL, Memori a chloride 0-13 Rate: l 0.9% 1000 14:59: 1,000 Libby ml INJ 00 ml/hr, 1,000 mL Infuse [...] ne 0-13 Same as l 14:59: Dilaudid Solitario 00 Benadryl 2016-06 No Notes: Memoria 0-13 (Same as: l 14:59: Benadryl) Solitario Acetaminoph No 1 tab, Joe peter en 325 MG / 01-20 Route: PO, l Hydrocodone 06:35: Drug Form: Solitario Bitartrate 00 TAB, 7.5 MG Oral Dosing Tablet Weight [[place] 85.966, 7.5/325] kg, ONCE, STAT, Start date: 01/20/17 1:35:00 CDT, Stop date: 01/20/17 1:35:00 CDT Acetaminoph No 1 tab, Joe peter en 325 MG / 01-20 Route: PO, l Hydrocodone 06:35: Drug Form: Libby Bitartrate 00 TAB, 7.5 MG Oral Dosing Tablet Weight [[place] 85.966, 7.5/325] kg, ONCE, STAT, Start date: 01/20/17 1:35:00 CDT, Stop date: 01/20/17 1:35:00 CDT Acetaminoph 2017-0 No 1 tab, Joe peter en 325 MG / 01-20 Route: PO, l Hydrocodone 06:35: Drug Form: Solitario Bitartrate 00 TAB, 7.5 MG Oral Dosing Tablet Weight [[place] 85.966, 7.5/325] kg, ONCE, STAT, Start date: 01/20/17 1:35:00 CDT, Stop date: 01/20/17 1:35:00 CDT [facility] 0 No 1 tab, Joe peter en 325 MG / 01-20 Route: PO, l Hydrocodone 06:35: Drug Form: Libby Bitartrate 00 TAB, 7.5 MG Oral Dosing Tablet Weight [[place] 85.966, 7.5/325] kg, ONCE, STAT, Start date: 01/20/17 1:35:00 CDT, Stop date: 01/20/17 1:35:00 CDT [facility] No 1 tab, Joe peter en 325 MG / 01-20 Route: PO, l Hydrocodone 06:35: Drug Form: Libby Bitartrate 00 TAB, 7.5 MG Oral Dosing Tablet Weight [[place] 85.966, 7.5/325] kg, ONCE, STAT, Start date: 01/20/17 1:35:00 CDT, Stop date: 01/20/17 1:35:00 CDT [facility] 0 No 1 tab, Joe peter en 325 MG / 01-20 Route: PO, l Hydrocodone 06:35: Drug Form: Libby Bitartrate 00 TAB, 7.5 MG Oral Dosing Tablet Weight [[place] 85.966, 7.5/325] kg, ONCE, STAT, Start date: 01/20/17 1:35:00 CDT, Stop date: 01/20/17 1:35:00 CDT [facility] 0 No 1 tab, Joe peter en 325 MG / 01-20 Route: PO, l Hydrocodone 06:35: Drug Form: Libby Bitartrate 00 TAB, 7.5 MG Oral Dosing Tablet Weight [[place] 85.966, 7.5/325] kg, ONCE, STAT, Start date: 01/20/17 1:35:00 CDT, Stop date: 01/20/17 1:35:00 CDT Reglan No Notes: Memoria 7-26 (Same as: l 02:33: Reglan) Solitario Benadryl No Notes: Memoria 7-26 (Same as: l 02:33: Benadryl) Solitario Hydromorpho No Notes: Joe peter ne 01-20 Same as: l 02:33: Dilaudid Solitario 00 Saline No Notes: Memoria Flush 0.9% 7- (Same as: l 02:33: BD Solitario 00 Posiflush) Sodium No 1,000 mL, Memori a Chloride 7- 1000 l 0.9% 02:33: ml/hr, Solitario (Bolus) IV 00 Infuse Over: 1 hr, Route: IV, 1,000, Drug form: INJ, ONCE, Priority: STAT, Dosing Weight 85.966 kg, Start date: 01/19/17 21:33:00 CDT, Duration: 1 doses or times, Stop date: 01/19/17 21:33:00 CDT Reglan No Notes: Memoria 7- (Same as: l 02:33: Reglan) Libby Benadryl No Notes: Memoria 7- (Same as: l 02:33: Benadryl) Libby Hydromorpho No Notes: Joe peter ne 01-20 Same as: l 02:33: Dilaudid Solitario 00 Saline No Notes: Memoria Flush 0.9% - (Same as: l 02:33: BD Solitario 00 Posiflush) Sodium No 1,000 mL, Memori a Chloride 7-26 1000 l 0.9% 02:33: ml/hr, Libby (Bolus) IV 00 Infuse Over: 1 hr, Route: IV, 1,000, Drug form: INJ, ONCE, Priority: STAT, Dosing Weight 85.966 kg, Start date: 01/19/17 21:33:00 CDT, Duration: 1 doses or times, Stop date: 01/19/17 21:33:00 CDT Reglan No Notes: Memoria 7-26 (Same as: l 02:33: Reglan) Solitario Benadryl No Notes: Memoria 7- (Same as: l 02:33: Benadryl) Solitario Hydromorpho No Notes: Joe peter ne 01-20 Same as: l 02:33: Dilaudid Libby 00 Saline No Notes: Memoria Flush 0.9% - (Same as: l 02:33: BD Libby 00 Posiflush) Sodium No 1,000 mL, Memori a Chloride - 1000 l 0.9% 02:33: ml/hr, Libby (Bolus) IV 00 Infuse Over: 1 hr, Route: IV, 1,000, Drug form: INJ, ONCE, Priority: STAT, Dosing Weight 85.966 kg, Start date: 01/19/17 21:33:00 CDT, Duration: 1 doses or times, Stop date: 01/19/17 21:33:00 CDT Reglan No Notes: Memoria 7- (Same as: l 02:33: Reglan) Solitario Benadryl No Notes: Memoria 7- (Same as: l 02:33: Benadryl) Libby Hydromorpho No Notes: Joe peter ne 01-20 Same as: l 02:33: Dilaudid Solitario 00 Saline No Notes: Memoria Flush 0.9% 01-20 (Same as: l 02:33: BD Solitario 00 Posiflush) Sodium No 1,000 mL, Memori a Chloride - 1000 l 0.9% 02:33: ml/hr, Solitario (Bolus) IV 00 Infuse Over: 1 hr, Route: IV, 1,000, Drug form: INJ, ONCE, Priority: STAT, Dosing Weight 85.966 kg, Start date: 01/19/17 21:33:00 CDT, Duration: 1 doses or times, Stop date: 01/19/17 21:33:00 CDT Reglan No Notes: Memoria 7-26 (Same as: l 02:33: Reglan) Libby 00 Benadryl No Notes: Memoria 7-26 (Same as: l 02:33: Benadryl) Solitario Hydromorpho No Notes: Joe peter ne 01-20 Same as: l 02:33: Dilaudid Libby 00 Saline No Notes: Memoria Flush 0.9% 7-26 (Same as: l 02:33: BD Libby 00 Posiflush) Sodium No 1,000 mL, Memori a Chloride 7-26 1000 l 0.9% 02:33: ml/hr, Libby (Bolus) IV 00 Infuse Over: 1 hr, Route: IV, 1,000, Drug form: INJ, ONCE, Priority: STAT, Dosing Weight 85.966 kg, Start date: 01/19/17 21:33:00 CDT, Duration: 1 doses or times, Stop date: 01/19/17 21:33:00 CDT Reglan No Notes: Memoria 7- (Same as: l 02:33: Reglan) Solitario Benadryl No Notes: Memoria 7- (Same as: l 02:33: Benadryl) Solitario Hydromorpho No Notes: Joe peter ne 01-20 Same as: l 02:33: Dilaudid Libby 00 Saline No Notes: Memoria Flush 0.9% 7-26 (Same as: l 02:33: BD Libby 00 Posiflush) Sodium No 1,000 mL, Memori a Chloride 7-26 1000 l 0.9% 02:33: ml/hr, Libby (Bolus) IV 00 Infuse Over: 1 hr, Route: IV, 1,000, Drug form: INJ, ONCE, Priority: STAT, Dosing Weight 85.966 kg, Start date: 01/19/17 21:33:00 CDT, Duration: 1 doses or times, Stop date: 01/19/17 21:33:00 CDT Reglan No Notes: Memoria 7- (Same as: l 02:33: Reglan) Solitario Benadryl No Notes: Memoria 7- (Same as: l 02:33: Benadryl) Libby Hydromorpho No Notes: Joe peter ne 01-20 [...] 5 MG Oral 85.142, Tablet kg, ONCE, [[place] Start 325] date: 01/08/17 18:02:00 CDT, Stop date: 01/08/17 18:02:00 CDT Acetaminoph No 2 tab, Joe peter en 325 MG / 01-08 Route: PO, l Hydrocodone 23:02: Dosing Herm tc Bitartrate 00 Weight 5 MG Oral 85.142, Tablet kg, ONCE, [[place] Start 5/325] date: 01/08/17 18:02:00 CDT, Stop date: 01/08/17 18:02:00 CDT Acetaminoph No 2 tab, Joe peter en 325 MG / 01-08 Route: PO, l Hydrocodone 23:02: Dosing Herm tc Bitartrate 00 Weight 5 MG Oral 85.142, Tablet kg, ONCE, [[place] Start 5/325] date: 01/08/17 18:02:00 CDT, Stop date: 01/08/17 18:02:00 CDT Acetaminoph 0 No 2 tab, Joe peter en 325 MG / 01-08 Route: PO, l Hydrocodone 23:02: Dosing Herm tc Bitartrate 00 Weight 5 MG Oral 85.142, Tablet kg, ONCE, [[place] Start 5/325] date: 01/08/17 18:02:00 CDT, Stop date: 01/08/17 18:02:00 CDT Acetaminoph 2017-0 No 2 tab, Joe peter en 325 MG / 01-08 Route: PO, l Hydrocodone 23:02: Dosing Herm tc Bitartrate 00 Weight 5 MG Oral 85.142, Tablet kg, ONCE, [[place] Start 5/325] date: 01/08/17 18:02:00 CDT, Stop date: 01/08/17 18:02:00 CDT Acetaminoph 2017-0 No 2 tab, Joe peter en 325 MG / 01-08 Route: PO, l Hydrocodone 23:02: Dosing Herm tc Bitartrate 00 Weight 5 MG Oral 85.142, Tablet kg, ONCE, [[place] Start 5/325] date: 01/08/17 18:02:00 CDT, Stop date: 01/08/17 18:02:00 CDT Acetaminoph 2017-0 No 2 tab, Joe peter en 325 MG / 01-08 Route: PO, l Hydrocodone 23:02: Dosing Herm tc Bitartrate 00 Weight 5 MG Oral 85.142, Tablet kg, ONCE, [[place] Start 5/325] date: 01/08/17 18:02:00 CDT, Stop date: 01/08/17 18:02:00 CDT Diphenhydra 2017-0 Yes 50 mg = [facility] 01-08 cap, PO, l Hydrochlori 22:52: Q6H, PRN He rmann de 25 MG 00 to be Oral taken with Capsule reglan for [Benadryl] migraine headache, X 3 day, # 24 cap, 0 Refill(s) Diphenhydra 2017-0 Yes 50 mg = 2 [facility] cap, PO, l Hydrochlori 22:52: Q6H, PRN He rmann de 25 MG 00 to be Oral taken with Capsule reglan for [Benadryl] migraine headache, X 3 day, # 24 cap, 0 Refill(s) Diphenhydra 2017-0 Yes 50 mg = 2 [facility] cap, PO, l Hydrochlori 22:52: Q6H, PRN [...] 50 mg = 2 M emoria mine 14 cap, PO, l Hydrochlori 22:52: Q6H, PRN He rmann de 25 MG 00 to be Oral taken with Capsule reglan for [Benadryl] migraine headache, X 3 day, # 24 cap, 0 Refill(s) Metoclopram Yes 10 mg = 1 M emoria james 10 MG 14 tab, PO, l Oral Tablet 22:51: QID, [...] Extended tab, 0 Release Refill(s) Tablet Acetaminoph 2017- No 1 - 2 tab, Memoria en 300 MG / 7-14 PO, Q4H, l Codeine 22:51: PRN Pain, Holly nn Phosphate 00 X 2 day, # 60 MG Oral 20 ea, 0 Tablet Refill(s) [Tylenol with Codeine #4] Sodium 2016- No 1,000 mL, Memori a Chloride 7-14 Rate: l 0.9% IV 21:10: 1,000 Libby 1000 mL 00 ml/hr, Infuse over: 1 hr, Route: IV, Dosing Weight 85.142 kg, Total Volume: 1,000, Start date: 01/08/17 16:10:00 CDT, Duration: 1 doses or times, Stop date: 01/08/17 17:09:00 CDT, Bolus Dose Sodium 0 No 1,000 mL, Memori a Chloride 7-14 Rate: l 0.9% IV 21:10: 1,000 Libby 1000 mL 00 ml/hr, Infuse over: 1 [...] date: 01/08/17 17:09:00 CDT, Bolus Dose Sodium 2017-0 No 1,000 mL, Memori a Chloride 7-14 Rate: l 0.9% IV 21:10: 1,000 Solitario 1000 mL 00 ml/hr, Infuse over: 1 hr, Route: IV, Dosing Weight 85.142 kg, Total Volume: 1,000, Start date: 01/08/17 16:10:00 CDT, Duration: 1 doses or times, Stop date: 01/08/17 17:09:00 CDT, Bolus Dose Sodium 2017-0 No 1,000 mL, Memori a Chloride 7-14 Rate: l 0.9% IV 21:10: 1,000 Solitario 1000 mL 00 ml/hr, Infuse over: 1 hr, Route: IV, Dosing Weight 85.142 kg, Total Volume: 1,000, Start date: 01/08/17 16:10:00 CDT, Duration: 1 doses or times, Stop date: 01/08/17 17:09:00 CDT, Bolus Dose Sodium 2017-0 No 1,000 mL, Memori a Chloride 7-14 Rate: l 0.9% IV 21:10: 1,000 Solitario 1000 mL 00 ml/hr, Infuse over: 1 hr, Route: IV, Dosing Weight 85.142 kg, Total Volume: 1,000, Start date: 01/08/17 16:10:00 CDT, Duration: 1 doses or times, Stop date: 01/08/17 17:09:00 CDT, Bolus Dose Sodium 2017-0 No 1,000 mL, Memori a Chloride 7-14 Rate: l 0.9% IV 21:10: 1,000 Solitario 1000 mL 00 ml/hr, Infuse over: 1 hr, Route: IV, Dosing Weight 85.142 kg, Total Volume: 1,000, Start date: 01/08/17 16:10:00 CDT, Duration: 1 doses or times, Stop date: 01/08/17 17:09:00 CDT, Bolus Dose Reglan 2017-0 No Notes: Memoria 7-14 (Same as: l 20:02: Reglan) Solitario Reglan 2017-0 No Notes: Memoria 7-14 (Same as: l 20:02: Reglan) Solitario Reglan 2017-0 No Notes: Memoria 7-14 (Same as: l 20:02: Reglan) Libby Reglan No Notes: Memoria 7-14 (Same as: l 20:02: Reglan) Libby Reglan No Notes: Memoria 7-14 (Same as: l 20:02: Reglan) Solitario Reglan No Notes: Memoria 7-14 (Same as: l 20:02: Reglan) Solitario Reglan No Notes: Memoria 7-14 (Same as: l 20:02: Reglan) Libby Dexamethaso No Notes: Joe peter ne -14 dexamethas l 20:01: one 10 Libby 00 mg/1 ml VL INJ PF MEDICATION WASTE Product Size: 10 mg Product Wasted: ___ mg Hydromorpho No Notes: Joe peter ne 7-14 Same as: l 20:01: Dilaudid Solitario Benadryl No Notes: Memoria 7-14 (Same as: l 20:01: Benadryl) Libby sodium No 1,000 mL, Memori a chloride [...] 7-14 mL, Route: l 20:01: IM, Drug Libby 00 form: INJ, ONCE, Dosing Weight 85.142, kg, Priority: STAT, Start date: 01/08/17 15:01:00 CDT, Stop date: 01/08/17 15:01:00 CDT Dexamethaso No Notes: Joe peter ne 7-14 dexamethas l 20:01: one 10 Solitario 00 mg/1 ml VL INJ PF MEDICATION WASTE Product Size: 10 mg Product Wasted: ___ mg Hydromorpho No Notes: Joe peter ne 7-14 Same as: l 20:01: Dilaudid Solitario 00 Benadryl 2016- No Notes: Memoria 7-14 (Same as: l 20:01: Benadryl) Solitario 00 sodium 2016- No 1,000 mL, Memori a chloride 7-14 Rate: l 0.9% 1000 20:01: 1,000 Solitario ml INJ 00 ml/hr, 1,000 mL Infuse over: 1 hr, Route: IV, Dosing Weight 85.142 kg, Total Volume: 1,000, Start date: 01/08/17 15:01:00 CDT, Duration: 1 doses or times, Stop date: 01/08/17 16:00:00 CDT, Bolus Dose Orphenadrin No 60 mg, 2 Me moria e 7-14 mL, Route: l 20:01: IM, Drug Libby 00 form: INJ, ONCE, Dosing Weight 85.142, kg, Priority: STAT, Start date: 01/08/17 15:01:00 CDT, Stop date: 01/08/17 15:01:00 CDT Dexamethaso 2016- No Notes: Joe peter ne -14 dexamethas l 20:01: one 10 Soltiario 00 mg/1 ml VL INJ PF MEDICATION WASTE Product Size: 10 mg Product Wasted: ___ mg Hydromorpho No Notes: Joe peter ne 7-14 Same as: l 20:01: Dilaudid Solitario 00 Benadryl 2016- No Notes: Memoria 7-14 (Same as: l 20:01: Benadryl) Solitario 00 sodium No 1,000 mL, Memori a chloride 7-14 Rate: l 0.9% 1000 20:01: 1,000 Solitario [...] CDT, Stop date: 01/08/17 15:01:00 CDT Dexamethaso 2017-0 No Notes: Joe peter ne -14 dexamethas l 20:01: one 10 Libby 00 mg/1 ml VL INJ PF MEDICATION WASTE Product Size: 10 mg Product Wasted: ___ mg Hydromorpho No Notes: Joe peter ne 7-14 Same as: l 20:01: Dilaudid Libby Benadryl No Notes: Memoria 7-14 (Same as: l 20:01: Benadryl) Libby sodium No 1,000 mL, Memori a chloride 01-08 Rate: l 0.9% 1000 20:01: 1,000 Libby ml INJ 00 ml/hr, 1,000 mL Infuse over: 1 hr, Route: IV, Dosing Weight 85.142 kg, Total Volume: 1,000, Start date: 01/08/17 15:01:00 CDT, Duration: 1 doses or times, Stop date: 01/08/17 16:00:00 CDT, Bolus Dose Orphenadrin No 60 mg, 2 Me moria e 7-14 mL, Route: l 20:01: IM, Drug Libby 00 form: INJ, ONCE, Dosing Weight 85.142, kg, Priority: STAT, Start date: 01/08/17 15:01:00 CDT, Stop date: 01/08/17 15:01:00 CDT Dexamethaso 2017-0 No Notes: Joe peter ne -14 dexamethas l 20:01: one 10 Solitario 00 mg/1 ml VL INJ PF MEDICATION WASTE Product Size: 10 mg Product Wasted: ___ mg Hydromorpho No Notes: Joe peter ne 7-14 Same as: l 20:01: Dilaudid Solitario 00 Benadryl No Notes: Memoria 7-14 (Same as: l 20:01: Benadryl) Solitario 00 sodium 2017-0 No 1,000 mL, Memori a chloride 7-14 Rate: l 0.9% 1000 20:01: 1,000 Libby ml INJ 00 ml/hr, 1,000 mL Infuse over: 1 hr, Route: IV, Dosing Weight 85.142 kg, Total Volume: 1,000, Start date: 01/08/17 15:01:00 CDT, Duration: 1 doses or times, Stop date: 01/08/17 16:00:00 CDT, Bolus Dose Orphenadrin 2016- No 60 mg, 2 Me moria e 7-14 mL, Route: l 20:01: IM, Drug Solitario 00 form: INJ, ONCE, Dosing Weight 85.142, kg, Priority: STAT, Start date: 01/08/17 15:01:00 CDT, Stop date: 01/08/17 15:01:00 CDT Dexamethaso 2016- No Notes: Joe peter ne 7-14 dexamethas l 20:01: one 10 Libby 00 mg/1 ml VL INJ PF MEDICATION WASTE Product Size: 10 mg Product Wasted: ___ mg Hydromorpho 2016- No Notes: Joe epter ne 7-14 Same as: l 20:01: Dilaudid Libby 00 Benadryl 2017-0 No Notes: Memoria 7-14 (Same as: l 20:01: Benadryl) Libby 00 sodium 2017-0 No 1,000 mL, Memori a chloride 7-14 Rate: l 0.9% 1000 20:01: 1,000 Solitario ml INJ 00 ml/hr, 1,000 mL Infuse over: 1 hr, Route: IV, Dosing Weight 85.142 kg, Total Volume: 1,000, Start date: 01/08/17 15:01:00 CDT, Duration: 1 doses or times, Stop date: 01/08/17 16:00:00 CDT, Bolus Dose Orphenadrin 2016-0 No 60 mg, 2 Me moria e 7-14 mL, Route: l 20:01: IM, Drug Solitario 00 form: INJ, ONCE, Dosing Weight 85.142, kg, Priority: STAT, Start date: 01/08/17 15:01:00 CDT, Stop date: 01/08/17 15:01:00 CDT Dexamethaso 2016- No Notes: Joe peter ne 7-14 dexamethas l 20:01: one 10 Solitario 00 mg/1 ml VL INJ PF MEDICATION WASTE Product Size: 10 mg Product Wasted: ___ mg Hydromorpho No Notes: Joe peter ne 7-14 Same as: l 20:01: Dilaudid Solitario 00 Benadryl No Notes: Memoria 7-14 (Same as: l 20:01: Benadryl) Libby sodium No 1,000 mL, Memori a chloride 01-08 Rate: l 0.9% 1000 20:01: 1,000 Libby ml INJ 00 ml/hr, 1,000 mL Infuse [...] days Memor ia 3-26 l 23:00: MEDICATION Solitario WASTE Product Size: 30 mg Product Wasted: ___ mg Reglan 2016- No Notes: Memoria 3-26 (Same as: l 23:00: Reglan) Solitario Ketorolac 2016-0 No 4 days Memor ia 3-26 l 23:00: MEDICATION Libby WASTE Product Size: 30 mg Product Wasted: ___ mg Reglan 2016- No Notes: Memoria 3-26 (Same as: l 23:00: Reglan) Solitario Ketorolac 2016-0 No 4 days Memor ia 3-26 l 23:00: MEDICATION Libby 00 WASTE Product Size: 30 mg Product Wasted: ___ mg Reglan No Notes: Memoria 3-26 (Same as: l 23:00: Reglan) Libby Ketorolac No 4 days Memor ia 3- l 23:00: MEDICATION [place] WASTE Product Size: 30 mg Product Wasted: ___ mg Reglan No Notes: Memoria 3- (Same as: l 23:00: Reglan) [place] Ketorolac No 4 days Memor ia 3- l 23:00: MEDICATION [place] WASTE Product Size: 30 mg Product Wasted: ___ mg Reglan No Notes: [facility]oria 3- (Same as: l 23:00: Reglan) [place] 00 Ketorolac No 4 days Memor ia 3 l 23:00: MEDICATION [place] WASTE Product Size: 30 mg Product Wasted: ___ mg Reglan No Notes: [facility] 3- (Same as: l 23:00: Reglan) [place] 00 Ketorolac No 4 days Memor ia 3- l 23:00: MEDICATION [place] WASTE Product Size: 30 mg Product Wasted: ___ mg Reglan No Notes: [facility]oria 3- (Same as: l 23:00: Reglan) [facility] Acetaminoph No Notes: Joe peter en 325 MG / 09-20 (Same as: l Hydrocodone 22:34: [place] nn Bitartrate 00 325/5) Do 5 MG Oral not exceed Tablet 4gm/day of [[place] acetaminop 5/325] hen. Acetaminoph No Notes: Joe peter en 325 MG / 09-20 (Same as: l Hydrocodone 22:34: [place] nn Bitartrate 00 325/5) Do 5 MG Oral not exceed Tablet 4gm/day of [[place] acetaminop 5/325] hen. Acetaminoph No Notes: Joe peter en 325 MG / 09-20 (Same as: l Hydrocodone 22:34: [place] nn Bitartrate 00 325/5) Do 5 MG Oral not exceed Tablet 4gm/day of [[place] acetaminop 5/325] hen. Acetaminoph No Notes: Joe peter en 325 MG / 3-26 (Same as: l Hydrocodone 22:34: [place] nn Bitartrate 00 325/5) Do 5 MG Oral not exceed Tablet 4gm/day of [[place] acetaminop 5/325] hen. Acetaminoph No Notes: Joe peter en 325 MG / 3-26 (Same as: l Hydrocodone 22:34: [place] nn Bitartrate 00 325/5) Do 5 MG Oral not exceed Tablet 4gm/day of [[place] acetaminop 5/325] hen. Acetaminoph No Notes: Joe peter en 325 MG / 3-26 (Same as: l Hydrocodone 22:34: [place] nn Bitartrate 00 325/5) Do 5 MG Oral not exceed Tablet 4gm/day of [[place] acetaminop 5/325] hen. Acetaminoph No Notes: Joe peter en 325 MG / 26 (Same as: l Hydrocodone 22:34: [place] nn Bitartrate 00 325/5) Do 5 MG Oral not exceed Tablet 4gm/day of [[place] acetaminop 5/325] hen. Hydromorpho No Notes: Joe peter ne 3-26 Same as l 21:47: Dilaudid [facility] 00 sodium No 1,000 mL, Memori a chloride 09-20 Rate: l 0.9% 1000 21:47: 1,000 [place] ml INJ 00 ml/hr, 1,000 mL Infuse over: 1 hr, Route: IV, Dosing Weight 78.008 kg, Total Volume: 1,000, Start date: 09/20/16 16:47:00 CDT, Duration: 1 doses or times, Stop date: 09/20/16 17:46:00 CDT, Bolus Dose Benadryl No Notes: Memoria 3-26 (Same as: l 21:47: Benadryl) [place] 00 Reglan No Notes: Memoria 3-26 (Same as: l 21:47: Reglan) [facility] 00 Dexamethaso 2017-0 No 10 mg, 2.5 Memoria ne 3-26 mL, Route: l 21:47: IV, Drug [place] 00 form: INJ, ONCE, Dosing Weight 78.008, kg, Priority: STAT, Start date: 09/20/16 16:47:00 CDT, Stop date: 09/20/16 16:47:00 CDT Hydromorpho 2017-0 No Notes: Joe peter ne 3-26 Same as l 21:47: Dilaudid Solitario 00 sodium 2016-0 No 1,000 mL, Memori a chloride 3-26 Rate: l 0.9% 1000 21:47: 1,000 Solitario ml INJ 00 ml/hr, 1,000 mL Infuse over: 1 hr, Route: IV, Dosing Weight 78.008 kg, Total Volume: 1,000, Start date: 09/20/16 16:47:00 CDT, Duration: 1 doses or times, Stop date: 09/20/16 17:46:00 CDT, Bolus Dose Benadryl 2016-0 No Notes: Memoria 3-26 (Same as: l 21:47: Benadryl) Libby 00 Reglan 2017-0 No Notes: Memoria 3-26 (Same as: l 21:47: Reglan) Libby 00 Dexamethaso 2016-0 No 10 mg, 2.5 Memoria ne 3-26 mL, Route: l 21:47: IV, Drug Libby 00 form: INJ, ONCE, Dosing Weight 78.008, kg, Priority: STAT, Start date: 09/20/16 16:47:00 CDT, Stop date: 09/20/16 16:47:00 CDT Hydromorpho 2017-0 No Notes: Joe peter ne 3-26 Same as l 21:47: Dilaudid Lib[place] 00 sodium 2017-0 No 1,000 mL, Memori a chloride 3-26 Rate: l 0.9% 1000 21:47: 1,000 Libby ml INJ 00 ml/hr, 1,000 mL Infuse over: 1 hr, Route: IV, Dosing Weight 78.008 kg, Total Volume: 1,000, Start date: 09/20/16 16:47:00 CDT, Duration: 1 doses or times, Stop date: 09/20/16 17:46:00 CDT, Bolus Dose Benadryl 2017-0 No Notes: Memoria 3-26 (Same as: l 21:47: Benadryl) Libby 00 Reglan No Notes: Memoria 3-26 (Same as: l 21:47: Reglan) Dexamethaso 2016- No 10 mg, 2.5 Memoria ne 3-26 mL, Route: l 21:47: IV, Drug Libby form: INJ, ONCE, Dosing Weight 78.008, kg, Priority: STAT, Start date: 09/20/16 16:47:00 CDT, Stop date: 09/20/16 16:47:00 CDT Hydromorpho No Notes: Joe peter ne 3-26 Same as l 21:47: Dilaudid Solitario 00 sodium No 1,000 mL, Memori a chloride 3-26 Rate: l 0.9% 1000 21:47: 1,000 Libby ml INJ 00 ml/hr, 1,000 mL Infuse over: 1 hr, Route: IV, Dosing Weight 78.008 kg, Total Volume: 1,000, Start date: 09/20/16 16:47:00 CDT, Duration: 1 doses or times, Stop date: 09/20/16 17:46:00 CDT, Bolus Dose Benadryl No Notes: Memoria 3-26 (Same as: l 21:47: Benadryl) Libby 00 Reglan No Notes: Memoria 3-26 (Same as: l 21:47: Reglan) Dexamethaso 2016-0 No 10 mg, 2.5 Memoria ne 3-26 mL, Route: l 21:47: IV, Drug Solitario 00 form: INJ, ONCE, Dosing Weight 78.008, kg, Priority: STAT, Start date: 09/20/16 16:47:00 CDT, Stop date: 09/20/16 16:47:00 CDT Hydromorpho 2016-0 No Notes: Joe peter ne 3-26 Same as l 21:47: Dilaudid Solitario 00 sodium 2016-0 No 1,000 mL, Memori a chloride 3-26 Rate: l 0.9% 1000 21:47: 1,000 Libby ml INJ 00 ml/hr, 1,000 mL Infuse over: 1 hr, Route: IV, Dosing Weight 78.008 kg, Total Volume: 1,000, Start date: 09/20/16 16:47:00 CDT, Duration: 1 doses or times, Stop date: 09/20/16 17:46:00 CDT, Bolus Dose Benadryl 2016- No Notes: Memoria 3-26 (Same as: l 21:47: Benadryl) Solitario 00 Reglan 2016-0 No Notes: Memoria 3-26 (Same as: l 21:47: Reglan) Solitario Dexamethaso 2016-0 No 10 mg, 2.5 Memoria ne 3-26 mL, Route: l 21:47: IV, Drug Solitario 00 form: INJ, ONCE, Dosing Weight 78.008, kg, Priority: STAT, Start date: 09/20/16 16:47:00 CDT, Stop date: 09/20/16 16:47:00 CDT Hydromorpho 2016- No Notes: Joe peter ne 3-26 Same as l 21:47: Dilaudid Solitario 00 sodium No 1,000 mL, Memori a chloride 09-20 Rate: l 0.9% 1000 21:47: 1,000 Solitario ml INJ 00 ml/hr, 1,000 mL Infuse over: 1 hr, Route: IV, Dosing Weight 78.008 kg, Total Volume: 1,000, Start date: 09/20/16 16:47:00 CDT, Duration: 1 doses or times, Stop date: 09/20/16 17:46:00 CDT, Bolus Dose Benadryl 2016-0 No Notes: Memoria 3-26 (Same as: l 21:47: Benadryl) Solitario 00 Reglan 2016-0 No Notes: Memoria 3-26 (Same as: l 21:47: Reglan) Libby Dexamethaso 2016-0 No 10 mg, 2.5 Memoria ne 3-26 mL, Route: l 21:47: IV, Drug Libby 00 form: INJ, ONCE, Dosing Weight 78.008, kg, Priority: STAT, Start date: 09/20/16 16:47:00 CDT, Stop date: 09/20/16 16:47:00 CDT Hydromorpho No Notes: Joe peter ne 3-26 Same as l 21:47: Dilaudid Libby sodium No 1,000 mL, Memori a chloride 09-20 Rate: l 0.9% 1000 21:47: 1,000 Libby ml INJ 00 ml/hr, 1,000 mL Infuse [...] Weight 73.8, kg, Start date: 06/06/16 11:25:00 CANAL DRIVER, Stop date: 06/06/16 11:25:00 CANAL DRIVER Dilaudid 2015- No 1 mg, Memoria 2-10 Route: IM, l 17:25: ONCE, Dosing Weight 73.8, kg, Start date: 06/06/16 11:25:00 CANAL DRIVER, Stop date: 06/06/16 11:25:00 CANAL DRIVER Dilaudid 2015- No 1 mg, Memoria 2-10 Route: IM, l 17:25: ONCE, Dosing Weight 73.8, kg, Start date: 06/06/16 11:25:00 CANAL DRIVER, Stop date: 06/06/16 11:25:00 CANAL DRIVER Dilaudid 2015-06 No 1 mg, Memoria 2-10 Route: IM, l 17:25: ONCE, Dosing Weight 73.8, kg, Start date: 06/06/16 11:25:00 CANAL DRIVER, Stop date: 06/06/16 11:25:00 CANAL DRIVER Dilaudid 2015- No 1 mg, Memoria 2-10 Route: IM, l 17:25: ONCE, Dosing Weight 73.8, kg, Start date: 06/06/16 11:25:00 CANAL DRIVER, Stop date: 06/06/16 11:25:00 CANAL DRIVER Dilaudid 2015- No 1 mg, Memoria 2-10 Route: IM, l 17:25: ONCE, Dosing Weight 73.8, kg, Start date: 06/06/16 11:25:00 CANAL DRIVER, Stop date: 06/06/16 11:25:00 CANAL DRIVER Dilaudid 2015- No 1 mg, Memoria 2-10 Route: IM, l 17:25: ONCE, Dosing Weight 73.8, kg, Start date: 06/06/16 11:25:00 CANAL DRIVER, Stop date: 06/06/16 11:25:00 CANAL DRIVER Acetaminoph 2015-06 Yes 1-2 tab, Me moria en 325 MG / 2-10 PO, Q4-6H, l Hydrocodone 03:47: PRN Pain, H ermann Bitartrate 00 X 5 day, # 10 MG Oral 15 tab, 0 Tablet Refill(s) [[place] 10/325] Acetaminoph 2015-06 Yes 1-2 tab, Me moria en 325 MG / 2-10 PO, Q4-6H, l Hydrocodone 03:47: PRN Pain, H ermann Bitartrate 00 X 5 day, # 10 MG Oral 15 tab, 0 Tablet Refill(s) [[place] 10/325] Acetaminoph 2015-06 Yes 1-2 tab, Me moria en 325 MG / 2-10 PO, Q4-6H, l Hydrocodone 03:47: PRN Pain, H ermann Bitartrate 00 X 5 day, # 10 MG Oral 15 tab, 0 Tablet Refill(s) [[place] 10/325] Acetaminoph 2015-06 Yes 1-2 tab, Me moria en 325 MG / 2-10 PO, Q4-6H, l Hydrocodone 03:47: PRN Pain, H ermann Bitartrate 00 X 5 day, # 10 MG Oral 15 tab, 0 Tablet Refill(s) [[place] 10/325] Acetaminoph 2015-06 Yes 1-2 tab, Me moria en 325 MG / 2-10 PO, Q4-6H, l Hydrocodone 03:47: PRN Pain, H ermann Bitartrate 00 X 5 day, # 10 MG Oral 15 tab, 0 Tablet Refill(s) [[place] 10/325] Acetaminoph 2015-06 Yes 1-2 tab, Me moria en 325 MG / 2-10 PO, Q4-6H, l Hydrocodone 03:47: PRN Pain, H ermann Bitartrate 00 X 5 day, # 10 MG Oral 15 tab, 0 Tablet Refill(s) [[place] 10/325] Acetaminoph 2015-06 Yes 1-2 tab, Me moria en 325 MG / 2-10 PO, Q4-6H, l Hydrocodone 03:47: PRN Pain, H ermann Bitartrate 00 X 5 day, # 10 MG Oral 15 tab, 0 Tablet Refill(s) [[place] 10/325] Morphine 2015-06 No 4 mg, Memoria 2-10 Route: IM, l 02:59: ONCE, Dosing Weight 73, kg, Priority: STAT, Start date: 06/05/16 20:59:00 CANAL DRIVER, Stop date: 06/05/16 20:59:00 CANAL DRIVER Morphine 2015-06 No 4 mg, Memoria 2-10 Route: IM, l 02:59: ONCE, Dosing Weight 73, kg, Priority: STAT, Start date: 06/05/16 20:59:00 CANAL DRIVER, Stop date: 06/05/16 20:59:00 CANAL DRIVER Morphine 2015-06 No 4 mg, Memoria 2-10 Route: IM, l 02:59: ONCE, Dosing Weight 73, kg, Priority: STAT, Start date: 06/05/16 20:59:00 CANAL DRIVER, Stop date: 06/05/16 20:59:00 CANAL DRIVER Morphine 2015-06 No 4 mg, Memoria 2-10 Route: IM, l 02:59: ONCE, Dosing Weight 73, kg, Priority: STAT, Start date: 06/05/16 20:59:00 CANAL DRIVER, Stop date: 06/05/16 20:59:00 CANAL DRIVER Morphine 2016-1 No 4 mg, Memoria 2-10 Route: IM, l 02:59: ONCE, Libby Dosing Weight 73, kg, Priority: STAT, Start date: 06/05/16 20:59:00 CANAL DRIVER, Stop date: 06/05/16 20:59:00 CANAL DRIVER Morphine 2015-1 No 4 mg, Memoria 2-10 Route: IM, l 02:59: ONCE, Libby Dosing Weight 73, kg, Priority: STAT, Start date: 06/05/16 20:59:00 CANAL DRIVER, Stop date: 06/05/16 20:59:00 CANAL DRIVER Morphine 2015- No 4 mg, Memoria 2-10 Route: IM, l 02:59: ONCE, Libby 00 Dosing Weight 73, kg, Priority: STAT, Start date: 06/05/16 20:59:00 CANAL DRIVER, Stop date: 06/05/16 20:59:00 CANAL DRIVER Acetaminoph 2015-06 No 1 tab, Joe peter en 325 MG / 2-10 Route: PO, l Hydrocodone 01:53: Drug Form: Solitario Bitartrate 00 TAB, 10 MG Oral Dosing Tablet Weight 73, [[place] kg, ONCE, 10/325] STAT, Start date: 06/05/16 19:53:00 CANAL DRIVER, Stop date: 06/05/16 19:53:00 CANAL DRIVER Acetaminoph 1 No 1 tab, Joe peter en 325 MG / 2-10 Route: PO, l Hydrocodone 01:53: Drug Form: Libby Bitartrate 00 TAB, 10 MG Oral Dosing Tablet Weight 73, [[place] kg, ONCE, 10/325] STAT, Start date: 06/05/16 19:53:00 CANAL DRIVER, Stop date: 06/05/16 19:53:00 CANAL DRIVER Acetaminoph 2015-1 No 1 tab, Joe peter en 325 MG / 2-10 Route: PO, l Hydrocodone 01:53: Drug Form: Libby Bitartrate 00 TAB, 10 MG Oral Dosing Tablet Weight 73, [[place] kg, ONCE, 10/325] STAT, Start date: 06/05/16 19:53:00 CANAL DRIVER, Stop date: 06/05/16 19:53:00 CANAL DRIVER Acetamino 2015-06 No 1 tab, Joe peter en 325 MG / 2-10 Route: PO, l Hydrocodone 01:53: Drug Form: Solitario Bitartrate 00 TAB, 10 MG Oral Dosing Tablet Weight 73, [[place] kg, ONCE, 10/325] STAT, Start date: 06/05/16 19:53:00 CANAL DRIVER, Stop date: 06/05/16 19:53:00 CANAL DRIVER Acetamino 2015-06 No 1 tab, Joe peter en 325 MG / 2-10 Route: PO, l Hydrocodone 01:53: Drug Form: Solitario Bitartrate 00 TAB, 10 MG Oral Dosing Tablet Weight 73, [[place] kg, ONCE, 10/325] STAT, Start date: 06/05/16 19:53:00 CANAL DRIVER, Stop date: 06/05/16 19:53:00 CANAL DRIVER Acetamino 2015-06 No 1 tab, Joe peter en 325 MG / 2-10 Route: PO, l Hydrocodone 01:53: Drug Form: Libby Bitartrate 00 TAB, 10 MG Oral Dosing Tablet Weight 73, [[place] kg, ONCE, 10/325] STAT, Start date: 06/05/16 19:53:00 CANAL DRIVER, Stop date: 06/05/16 19:53:00 CANAL DRIVER Acetamino 2015-06 No 1 tab, Joe peter en 325 MG / 2-10 Route: PO, l Hydrocodone 01:53: Drug Form: Solitario Bitartrate 00 TAB, 10 MG Oral Dosing Tablet Weight 73, [[place] kg, ONCE, 10/325] STAT, Start date: 06/05/16 19:53:00 CANAL DRIVER, Stop date: 06/05/16 19:53:00 CANAL DRIVER Acetamino 2015-06 No 2 tab, Joe peter en 325 MG / -17 Route: PO, l Hydrocodone 18:27: Drug Form: Solitario Bitartrate 00 TAB, 5 MG Oral Dosing Tablet Weight [[place] 66.364, 5/325] kg, ONCE, STAT, 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/14/16 12:27:00 CANAL DRIVER, Stop date: 05/14/16 12:27:00 CANAL DRIVER Acetamino 2015-06 No 2 tab, Joe peter en 325 MG / 1-17 Route: PO, l Hydrocodone 18:27: Drug Form: Libby Bitartrate 00 TAB, 5 MG Oral Dosing Tablet Weight [[place] 66.364, 5/325] kg, ONCE, STAT, 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/14/16 12:27:00 CANAL DRIVER, Stop date: 05/14/16 12:27:00 CANAL DRIVER [facility] 2015-06 No 2 tab, Joe peter en 325 MG / 07-14 Route: PO, l Hydrocodone 18:27: Drug Form: Libby Bitartrate 00 TAB, 5 MG Oral Dosing Tablet Weight [[place] 66.364, 5/325] kg, ONCE, STAT, 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/14/16 12:27:00 CANAL DRIVER, Stop date: 05/14/16 12:27:00 [facility] 2015-06 No 2 tab, Joe peter en 325 MG / 07-14 Route: PO, l Hydrocodone 18:27: Drug Form: Libby Bitartrate 00 TAB, 5 MG Oral Dosing Tablet Weight [[place] 66.364, 5/325] kg, ONCE, STAT, 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/14/16 12:27:00 CANAL DRIVER, Stop date: 05/14/16 12:27:00 [facility] 2015-06 No 2 tab, Joe peter en 325 MG / 07-14 Route: PO, l Hydrocodone 18:27: Drug Form: Solitario Bitartrate 00 TAB, 5 MG Oral Dosing Tablet Weight [[place] 66.364, 5/325] kg, ONCE, STAT, 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/14/16 12:27:00 CANAL DRIVER, Stop date: 05/14/16 12:27:00 [facility] 2015-06 No 2 tab, Joe peter en 325 MG / 17 Route: PO, l Hydrocodone 18:27: Drug Form: Solitario Bitartrate 00 TAB, 5 MG Oral Dosing Tablet Weight [[place] 66.364, 5/325] kg, ONCE, STAT, 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/14/16 12:27:00 CANAL DRIVER, Stop date: 05/14/16 12:27:00 [facility] 2015-06 No 2 tab, Joe peter en 325 MG / 17 Route: PO, l Hydrocodone 18:27: Drug Form: Solitario Bitartrate 00 TAB, 5 MG Oral Dosing Tablet Weight [[place] 66.364, 5/325] kg, ONCE, STAT, 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/14/16 12:27:00 CANAL DRIVER, Stop date: 05/14/16 12:27:00 CANAL DRIVER Dihydroergo 2015-06 No Notes: Joe peter tamine 1-17 (Same as: l 16:54: D.H.E. 45) Benadryl 2015-06 No 25 mg, Memoria 1-17 Route: l 16:54: IVP, ONCE, Dosing Weight 66.364, kg, Priority: STAT, 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/14/16 10:54:00 CANAL DRIVER, Stop date: 05/14/16 10:54:00 CANAL DRIVER Sodium 2015- No 1,000 mL, Memori a Chloride 1-17 1,000 l 0.154 16:54: ml/hr, Libby MEQ/ML 00 Infuse Injectable Over: 1 Solution hr, Route: IV, ONCE, Priority: STAT, Dosing Weight 66.364 kg, 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/14/16 10:54:00 CANAL DRIVER, Duration: 1 doses or times, Stop date: 05/14/16 10:54:00 CANAL DRIVER Dihydroergo 2015-06 No Notes: Joe peter tamine 1-17 (Same as: l 16:54: D.H.E. 45) Benadryl 2015-06 No 25 mg, Memoria 1-17 Route: l 16:54: IVP, ONCE, Dosing Weight 66.364, kg, Priority: STAT, 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/14/16 10:54:00 CANAL DRIVER, Stop date: 05/14/16 10:54:00 CANAL DRIVER Sodium 2015- No 1,000 mL, Memori a Chloride 1-17 1,000 l 0.154 16:54: ml/hr, Libby MEQ/ML 00 Infuse Injectable Over: 1 Solution hr, Route: IV, ONCE, Priority: STAT, Dosing Weight 66.364 kg, 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/14/16 10:54:00 CANAL DRIVER, Duration: 1 doses or times, Stop date: 05/14/16 10:54:00 CANAL DRIVER Dihydroergo 2015-06 No Notes: Joe peter tamine 1-17 (Same as: l 16:54: D.H.E. 45) Benadryl 2015-06 No 25 mg, Memoria 1-17 Route: l 16:54: IVP, ONCE, Dosing Weight 66.364, kg, Priority: STAT, 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/14/16 10:54:00 CANAL DRIVER, Stop date: 05/14/16 10:54:00 CANAL DRIVER Sodium 2016- No 1,000 mL, Memori a Chloride 1-17 1,000 l 0.154 16:54: ml/hr, Solitario MEQ/ML 00 Infuse Injectable Over: 1 Solution hr, Route: IV, ONCE, Priority: STAT, Dosing Weight 66.364 kg, 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/14/16 10:54:00 CANAL DRIVER, Duration: 1 doses or times, Stop date: 05/14/16 10:54:00 CANAL DRIVER Dihydroergo 2015- No Notes: Joe peter tamine -17 (Same as: l 16:54: D.H.E. 45) Benadryl 2015-06 No 25 mg, Memoria 17 Route: l 16:54: IVP, ONCE, Dosing Weight 66.364, kg, Priority: STAT, 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/14/16 10:54:00 CANAL DRIVER, Stop date: 05/14/16 10:54:00 CANAL DRIVER Sodium 2015-1 No 1,000 mL, Memori a Chloride 1-17 1,000 l 0.154 16:54: ml/hr, Libby MEQ/ML 00 Infuse Injectable Over: 1 Solution hr, Route: IV, ONCE, Priority: STAT, Dosing Weight 66.364 kg, 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/14/16 10:54:00 CANAL DRIVER, Duration: 1 doses or times, Stop date: 05/14/16 10:54:00 CANAL DRIVER Dihydroergo 2015- No Notes: Joe peter tamine -17 (Same as: l 16:54: D.H.E. 45) Benadryl 2015- No 25 mg, Memoria 1-17 Route: l 16:54: IVP, ONCE, Solitario 00 Dosing Weight 66.364, kg, Priority: STAT, 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/14/16 10:54:00 CANAL DRIVER, Stop date: 05/14/16 10:54:00 CANAL DRIVER Sodium 2015- No 1,000 mL, Memori a Chloride 1-17 1,000 l 0.154 16:54: ml/hr, Solitario MEQ/ML 00 Infuse Injectable Over: 1 Solution hr, Route: IV, ONCE, Priority: STAT, Dosing Weight 66.364 kg, 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/14/16 10:54:00 CANAL DRIVER, Duration: 1 doses or times, Stop date: 05/14/16 10:54:00 CANAL DRIVER Dihydroergo 2016- No Notes: Joe peter tamine 1-17 (Same as: l 16:54: D.H.E. 45) Benadryl 2015-06 No 25 mg, Memoria 1-17 Route: l 16:54: IVP, ONCE, Dosing Weight 66.364, kg, Priority: STAT, 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/14/16 10:54:00 CANAL DRIVER, Stop date: 05/14/16 10:54:00 CANAL DRIVER Sodium 2015- No 1,000 mL, Memori a Chloride 1-17 1,000 l 0.154 16:54: ml/hr, Solitario MEQ/ML 00 Infuse Injectable Over: 1 Solution hr, Route: IV, ONCE, Priority: STAT, Dosing Weight 66.364 kg, 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/14/16 10:54:00 CANAL DRIVER, Duration: 1 doses or times, Stop date: 05/14/16 10:54:00 CANAL DRIVER Dihydroergo 2015- No Notes: Joe peter tamine 1-17 (Same as: l 16:54: D.H.E. 45) Benadryl 2015-06 No 25 mg, Memoria 1-17 Route: l 16:54: IVP, ONCE, Dosing Weight 66.364, kg, Priority: STAT, 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/14/16 10:54:00 CANAL DRIVER, Stop date: 05/14/16 10:54:00 CANAL DRIVER Sodium 2016- No 1,000 mL, Memori a Chloride 1-17 1,000 l 0.154 16:54: ml/hr, Libby MEQ/ML 00 Infuse Injectable Over: 1 Solution hr, Route: IV, ONCE, Priority: STAT, Dosing Weight 66.364 kg, 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/14/16 10:54:00 CANAL DRIVER, Duration: 1 doses or times, Stop date: 05/14/16 10:54:00 CANAL DRIVER Reglan 2015-06 No 10 mg, Memoria 07-14 Route: l 16:53: IVP, Drug Solitario 00 form: INJ, ONCE, Dosing Weight 66.364, kg, Priority: STAT, 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/14/16 10:53:00 CANAL DRIVER, Stop date: 05/14/16 10:53:00 CANAL DRIVER Ketorolac 2015-06 No 4 days Memor ia 07-14 l 16:53: MEDICATION Solitario 00 WASTE Product Size: 30 mg Product Wasted: ___ mg Dexamethaso 2015-06 No 10 mg, Joe peter ne 07-14 Route: l 16:53: IVP, ONCE, Libby Dosing Weight 66.364, kg, Priority: STAT, 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/14/16 10:53:00 CANAL DRIVER, Stop date: 05/14/16 10:53:00 CANAL DRIVER Reglan 2015-06 No 10 mg, Memoria 07-14 Route: l 16:53: IVP, Drug Libby 00 form: INJ, ONCE, Dosing Weight 66.364, kg, Priority: STAT, 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/14/16 10:53:00 CANAL DRIVER, Stop date: 05/14/16 10:53:00 CANAL DRIVER Ketorolac 2015-06 No 4 days Memor ia 07-14 l 16:53: MEDICATION Libby 00 WASTE Product Size: 30 mg Product Wasted: ___ mg Dexamethaso 2015-06 No 10 mg, Joe peter ne 07-14 Route: l 16:53: IVP, ONCE, Solitario Dosing Weight 66.364, kg, Priority: STAT, 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/14/16 10:53:00 CANAL DRIVER, Stop date: 05/14/16 10:53:00 CANAL DRIVER Reglan 2015-06 No 10 mg, Memoria 07-14 Route: l 16:53: IVP, Drug Libby 00 form: INJ, ONCE, Dosing Weight 66.364, kg, Priority: STAT, 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/14/16 10:53:00 CANAL DRIVER, Stop date: 05/14/16 10:53:00 CANAL DRIVER Ketorolac 2015-06 No 4 days Memor ia 07-14 l 16:53: MEDICATION Solitario 00 WASTE Product Size: 30 mg Product Wasted: ___ mg Dexamethaso 2015-06 No 10 mg, Joe peter ne 07-14 Route: l 16:53: IVP, ONCE, Solitario 00 Dosing Weight 66.364, kg, Priority: STAT, 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/14/16 10:53:00 CANAL DRIVER, Stop date: 05/14/16 10:53:00 CANAL DRIVER Reglan 2015-06 No 10 mg, Memoria 07-14 Route: l 16:53: IVP, Drug Libby 00 form: INJ, ONCE, Dosing Weight 66.364, kg, Priority: STAT, 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/14/16 10:53:00 CANAL DRIVER, Stop date: 05/14/16 10:53:00 CANAL DRIVER Ketorolac 2015-06 No 4 days Memor ia 07-14 l 16:53: MEDICATION Libby 00 WASTE Product Size: 30 mg Product Wasted: ___ mg Dexamethaso 2015-06 No 10 mg, Joe peter ne 07-14 Route: l 16:53: IVP, ONCE, Libby Dosing Weight 66.364, kg, Priority: STAT, 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/14/16 10:53:00 CANAL DRIVER, Stop date: 05/14/16 10:53:00 CANAL DRIVER Reglan 2015-06 No 10 mg, Memoria 07-14 Route: l 16:53: IVP, Drug Solitario 00 form: INJ, ONCE, Dosing Weight 66.364, kg, Priority: STAT, 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/14/16 10:53:00 CANAL DRIVER, Stop date: 05/14/16 10:53:00 CANAL DRIVER Ketorolac 2015-06 No 4 days Memor ia 07-14 l 16:53: MEDICATION Libby 00 WASTE Product Size: 30 mg Product Wasted: ___ mg Dexamethaso 2015-06 No 10 mg, Joe peter ne 07-14 Route: l 16:53: IVP, ONCE, Libby 00 Dosing Weight 66.364, kg, Priority: STAT, 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/14/16 10:53:00 CANAL DRIVER, Stop date: 05/14/16 10:53:00 CANAL DRIVER Reglan 2015-06 No 10 mg, Memoria 07-14 Route: l 16:53: IVP, Drug Libby 00 form: INJ, ONCE, Dosing Weight 66.364, kg, Priority: STAT, 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/14/16 10:53:00 CANAL DRIVER, Stop date: 05/14/16 10:53:00 CANAL DRIVER Ketorolac 2015-06 No 4 days Memor ia 07-14 l 16:53: MEDICATION Solitario 00 WASTE Product Size: 30 mg Product Wasted: ___ mg Dexamethaso 2015-06 No 10 mg, Joe peter ne 07-14 Route: l 16:53: IVP, ONCE, Libby 00 Dosing Weight 66.364, kg, Priority: STAT, 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/14/16 10:53:00 CANAL DRIVER, Stop date: 05/14/16 10:53:00 CANAL DRIVER Reglan 2015-06 No 10 mg, Memoria 17 Route: l 16:53: IVP, Drug Solitario 00 form: INJ, ONCE, Dosing Weight 66.364, kg, Priority: STAT, 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/14/16 10:53:00 CANAL DRIVER, Stop date: 05/14/16 10:53:00 CANAL DRIVER Ketorolac 2015-06 No 4 days Memor ia 07-14 l 16:53: MEDICATION Libby 00 WASTE Product Size: 30 mg Product Wasted: ___ mg Dexamethaso 2015-06 No 10 mg, Joe peter ne 07-14 Route: l 16:53: IVP, ONCE, Libby 00 Dosing Weight 66.364, kg, Priority: STAT, 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/14/16 10:53:00 CANAL DRIVER, Stop date: 05/14/16 10:53:00 CANAL DRIVER Miralax 2014-06 No Notes: Memoria 1-02 Dissolve l 23:00: in 8 oz of Solitario 00 water or juice. (Same as: Miralax) Miralax 2014-06 No Notes: Memoria 1-02 Dissolve l 23:00: in 8 oz of Solitario 00 water or juice. (Same as: Miralax) Miralax 2014-06 No Notes: Memoria 1-02 Dissolve l 23:00: in 8 oz of Libby 00 water or juice. (Same as: Miralax) Miralax 2014-06 No Notes: Memoria 1-02 Dissolve l 23:00: in 8 oz of Libby 00 water or juice. (Same as: Miralax) Miralax 2014-06 No Notes: Memoria 1-02 Dissolve l 23:00: in 8 oz of Libby 00 water or juice. (Same as: Miralax) Miralax 2014-06 No Notes: Memoria 1-02 Dissolve l 23:00: in 8 oz of Libby 00 water or juice. (Same as: Miralax) Miralax 2014-06 No Notes: Memoria 1-02 Dissolve l 23:00: in 8 oz of Libby 00 water or juice. (Same as: Miralax) Flagyl 2014-06 No Notes: Memoria 1-02 (Same as: l 21:00: Flagyl) Libby 00 Avoid alcohol. Flagyl 2014-06 No Notes: Memoria 1-02 (Same as: l 21:00: Flagyl) Libby 00 Avoid alcohol. Flagyl 2014-06 No Notes: Memoria 1-02 (Same as: l 21:00: Flagyl) Libby 00 Avoid alcohol. Flagyl 2014-06 No Notes: Memoria 1-02 (Same as: l 21:00: Flagyl) Solitario 00 Avoid alcohol. Flagyl 2014-06 No Notes: Memoria 1-02 (Same as: l 21:00: Flagyl) Libby 00 Avoid alcohol. Flagyl 2014-06 No Notes: Memoria 1-02 (Same as: l 21:00: Flagyl) Solitario 00 Avoid alcohol. Flagyl 2014-06 No Notes: Memoria 1-02 (Same as: l 21:00: Flagyl) Libby 00 Avoid alcohol. Cipro 2014-06 No Notes: Do Memoria 1-02 not l 20:00: refrigerat Libby 00 e Cipro 2014-06 No Notes: Do Memoria 1-02 not l 20:00: refrigerat Lib[place] 00 e Cipro 2014-06 No Notes: Do Memoria 1-02 not l 20:00: refrigerat [place] 00 e Cipro 2014-06 No Notes: Do [facility] 1-02 not l 20:00: refrigerat Solit[facility] 00 e Cipro 2014-06 No Notes: Do [facility] 1-02 not l 20:00: refrigerat [place] 00 e Cipro 2014-06 No Notes: Do [facility] 1-02 not l 20:00: refrigerat [place] 00 e Cipro 2014-06 No Notes: Do [facility] 06-29 not l 20:00: refrigerat [place] 00 e Metronidazo 2014-06 Yes 500 mg = 1 Memoria le 500 MG -02 tab, PO, l Oral Tablet 19:09: Q8H, X 5 He rmann [Flagyl] 00 day, # 15 tab, 0 Refill(s) Ciprofloxac 2014-06 Yes 500 mg = 1 Memoria in 500 MG 1-02 tab, PO, l Oral Tablet 19:09: Q12H, X 5 H ermann [Cipro] 00 day, # 10 tab, 0 Refill(s) Metronidazo 2014-06 Yes 500 mg = 1 Memoria le 500 MG -02 tab, PO, l Oral Tablet 19:09: Q8H, X 5 He rmann [Flagyl] 00 day, # 15 tab, 0 Refill(s) Ciprofloxac 2014-06 Yes 500 mg = 1 Memoria in 500 MG -02 tab, PO, l Oral Tablet 19:09: Q12H, X 5 H ermann [Cipro] 00 day, # 10 tab, 0 Refill(s) Metronidazo 2014-06 Yes 500 mg = 1 Memoria le 500 MG -02 tab, PO, l Oral Tablet 19:09: Q8H, X 5 He rmann [Flagyl] 00 day, # 15 tab, 0 Refill(s) Ciprofloxac 2014-06 Yes 500 mg = 1 Memoria in 500 MG 1-02 tab, PO, l Oral Tablet 19:09: Q12H, X 5 H ermann [Cipro] 00 day, # 10 tab, 0 Refill(s) Metronidazo 2014-06 Yes 500 mg = 1 Memoria le 500 MG -02 tab, PO, l Oral Tablet 19:09: Q8H, X 5 He rmann [Flagyl] 00 day, # 15 tab, 0 Refill(s) Ciprofloxac 2014-06 Yes 500 mg = 1 Memoria in 500 MG 1-02 tab, PO, l Oral Tablet 19:09: Q12H, X 5 H ermann [Cipro] 00 day, # 10 tab, 0 Refill(s) Metronidazo 2014-06 Yes 500 mg = 1 Memoria le 500 MG -02 tab, PO, l Oral Tablet 19:09: Q8H, X 5 He rmann [Flagyl] 00 day, # 15 tab, 0 Refill(s) Ciprofloxac 2014-06 Yes 500 mg = 1 Memoria in 500 MG 1-02 tab, PO, l Oral Tablet 19:09: Q12H, X 5 H ermann [Cipro] 00 day, # 10 tab, 0 Refill(s) Metronidazo 2014-06 Yes 500 mg = 1 Memoria le 500 MG -02 tab, PO, l Oral Tablet 19:09: Q8H, X 5 He rmann [Flagyl] 00 day, # 15 tab, 0 Refill(s) Ciprofloxac 2014-06 Yes 500 mg = 1 Memoria in 500 MG -02 tab, PO, l Oral Tablet 19:09: Q12H, X 5 H ermann [Cipro] 00 day, # 10 tab, 0 Refill(s) Metronidazo 2014-06 Yes 500 mg = 1 Memoria le 500 MG -02 tab, PO, l Oral Tablet 19:09: Q8H, X 5 He rmann [Flagyl] 00 day, # 15 tab, 0 Refill(s) Ciprofloxac 2014-06 Yes 500 mg = 1 Memoria in 500 MG -02 tab, PO, l Oral Tablet 19:09: Q12H, X 5 H ermann [Cipro] day, # 10 tab, 0 Refill(s) Acetaminoph 2014-06 Yes 1 tab, PO, Memoria en 300 MG / 06-29 Q6H, PRN l butalbital 18:35: Headache Her davila 50 MG / 00 5, # 30 Caffeine 40 tab, 0 MG Oral Refill(s) Capsule [Fioricet] Acetaminoph 2014-06 Yes 1 tab, PO, Memoria en 300 MG / 02 Q6H, PRN l butalbital 18:35: Headache Her davila 50 MG / 00 1-5, # 30 Caffeine 40 tab, 0 MG Oral Refill(s) Capsule [Fioricet] Acetaminoph 2014-06 Yes 1 tab, PO, Memoria en 300 MG / 02 Q6H, PRN l butalbital 18:35: Headache Her [...] Memoria - Give with l 18:34: food. Libby (Same As: Coreg) Coreg 2014-06 No Notes: Memoria - Give with l 18:34: food. Libby (Same As: Coreg) Coreg 2014-06 No Notes: Memoria - Give with l 18:34: food. Solitario (Same As: Coreg) Coreg 2014-06 No Notes: Memoria - Give with l 18:34: food. Solitario (Same As: Coreg) Coreg 2014-06 No Notes: Memoria - Give with l 18:34: food. Libby (Same As: Coreg) Coreg 2014-06 No Notes: Memoria - Give with l 18:34: food. Libby 00 (Same As: Coreg) Coreg 2014-06 No Notes: Memoria -02 Give with l 18:34: food. Libby 00 (Same As: Coreg) Citalopram 2014-06 No Notes: Memor ia 1-02 (Same As: l 15:00: CeleXA) Solitario Alprazolam 2014-06 No Notes: Memor ia 1 MG Oral 1-02 With food l Tablet 15:00: or milk Solitario [Xanax] 00 (Same as: Xanax) Lisinopril 2014-06 No Notes: Memor ia 1-02 (Same as: l 15:00: Prinivil, Solitario 00 Zestril) Furosemide 2014-06 No Notes: Memor ia 20 MG Oral 1-02 (Same as: l Tablet 15:00: Lasix) May Holly nn 00 cause GI upset. Give with food or milk. Citalopram 2014-06 No Notes: Memor ia 1-02 (Same As: l 15:00: CeleXA) Solitario Alprazolam 2014-06 No Notes: Memor ia 1 MG Oral 1-02 With food l Tablet 15:00: or milk Libby [Xanax] 00 (Same as: Xanax) Lisinopril 2014-06 No Notes: Memor ia 1-02 (Same as: l 15:00: Prinivil, Solitario 00 Zestril) Furosemide 2014-06 No Notes: Memor ia 20 MG Oral 1-02 (Same as: l Tablet 15:00: Lasix) May Holly nn 00 cause GI upset. Give with food or milk. Citalopram 2014-06 No Notes: Memor ia 1-02 (Same As: l 15:00: CeleXA) Libby Alprazolam 2014-06 No Notes: Memor ia 1 MG Oral 1-02 With food l Tablet 15:00: or milk Libby [Xanax] 00 (Same as: Xanax) Lisinopril 2014-06 No Notes: Memor ia 1-02 (Same as: l 15:00: Prinivil, Libby 00 Zestril) Furosemide 2014-06 No Notes: Memor ia 20 MG Oral 1-02 (Same as: l Tablet 15:00: Lasix) May Holly nn 00 cause GI upset. Give with food or milk. Citalopram 2014-06 No Notes: Memor ia 1-02 (Same As: l 15:00: CeleXA) Libby Alprazolam 2014-06 No Notes: Memor ia 1 MG Oral 1-02 With food l Tablet 15:00: or milk Libby [Xanax] 00 (Same as: Xanax) Lisinopril 2014-06 No Notes: Memor ia 1-02 (Same as: l 15:00: Prinivil, Solitario 00 Zestril) Furosemide 2014-06 No Notes: Memor ia 20 MG Oral 1-02 (Same as: l Tablet 15:00: Lasix) May Holly nn 00 cause GI upset. Give with food or milk. Citalopram 2014-06 No Notes: Memor ia 1-02 (Same As: l 15:00: CeleXA) Solitario Alprazolam 2014-06 No Notes: Memor ia 1 MG Oral 1-02 With food l Tablet 15:00: or milk Solitario [Xanax] 00 (Same as: Xanax) Lisinopril 2014-06 No Notes: Memor ia 1-02 (Same as: l 15:00: Prinivil, Solitario 00 Zestril) Furosemide 2014-06 No Notes: Memor ia 20 MG Oral 1-02 (Same as: l Tablet 15:00: Lasix) May Holly nn 00 cause GI upset. Give with food or milk. Citalopram 2014-06 No Notes: Memor ia 1-02 (Same As: l 15:00: CeleXA) Solitario Alprazolam 2014-06 No Notes: Memor ia 1 MG Oral 1-02 With food l Tablet 15:00: or milk Solitario [Xanax] 00 (Same as: Xanax) Lisinopril 2014-06 No Notes: Memor ia 1-02 (Same as: l 15:00: Prinivil, Libby 00 Zestril) Furosemide 2014-06 No Notes: Memor ia 20 MG Oral 1-02 (Same as: l Tablet 15:00: Lasix) May Holly nn 00 cause GI upset. Give with food or milk. Citalopram 2014-06 No Notes: Memor ia 1-02 (Same As: l 15:00: CeleXA) Libby Alprazolam 2014-06 No Notes: Memor ia 1 MG Oral - With food l Tablet 15:00: or milk Libby [Xanax] 00 (Same as: Xanax) Lisinopril 2014-06 No Notes: Memor ia 1-02 (Same as: l 15:00: Prinivil, Libby 00 Zestril) Furosemide 2014-06 No Notes: Memor ia 20 MG Oral - (Same as: l Tablet 15:00: Lasix) May Holly nn 00 cause GI upset. Give with food or milk. BD Normal 2014-06 No Notes: Memori a Saline 1-02 (Same as: l Flush 12:10: BD Solitario 00 Posiflush) BD Normal 2014-06 No Notes: Memori a Saline 1-02 (Same as: l Flush 12:10: BD Libby 00 Posiflush) BD Normal 2014-06 No Notes: Memori a Saline 1-02 (Same as: l Flush 12:10: BD Lib[place] 00 Posiflush) BD Normal 2014-06 No Notes: Memori a Saline 1-02 (Same as: l Flush 12:10: BD Solitario 00 Posiflush) BD Normal 2014-06 No Notes: Memori a Saline 1-02 (Same as: l Flush 12:10: BD Libby 00 Posiflush) BD Normal 2014-06 No Notes: Memori a Saline 1-02 (Same as: l Flush 12:10: BD Solitario 00 Posiflush) BD Normal 2014-06 No Notes: Memori a Saline 1-02 (Same as: l Flush 12:10: BD Solitario 00 Posiflush) Phenergan 2014-06 No Notes: Do Mem oria 1-02 not give l 08:57: IV push. Solitario 00 (Same as: Phenergan) Phenergan 2014-06 No Notes: Do Mem oria 1-02 not give l 08:57: IV push. Solitario 00 (Same as: Phenergan) Phenergan 2014-06 No Notes: Do Mem oria 1-02 not give l 08:57: IV push. Libby 00 (Same as: Phenergan) Phenergan 2014-06 No Notes: Do Mem oria 1-02 not give l 08:57: IV push. Libby 00 (Same as: Phenergan) Phenergan 2014-06 No Notes: Do Mem oria 1-02 not give l 08:57: IV push. Solitario 00 (Same as: Phenergan) Phenergan 2014-06 No Notes: Do Mem oria 1-02 not give l 08:57: IV push. Libby 00 (Same as: Phenergan) Phenergan 2014-06 No Notes: Do Mem oria 1-02 not give l 08:57: IV push. Libby 00 (Same as: Phenergan) Trazodone 2014-06 No Notes: Memori a Hydrochlori 1-02 (Same As: l de 50 MG 03:00: Desyrel) Holly nn Oral Tablet 00 Trazodone 2014-06 No Notes: Memori a Hydrochlori 1-02 (Same As: l de 50 MG 03:00: Desyrel) Holly nn Oral Tablet 00 Trazodone 2014-06 No Notes: Memori a Hydrochlori 1-02 (Same As: l de 50 MG 03:00: Desyrel) Holly nn Oral Tablet 00 Trazodone 2014-06 No Notes: Memori a Hydrochlori 1-02 (Same As: l de 50 MG 03:00: Desyrel) Holly nn Oral Tablet 00 Trazodone 2014-06 No Notes: Memori a Hydrochlori 1-02 (Same As: l de 50 MG 03:00: Desyrel) Holly nn Oral Tablet 00 Trazodone 2014-06 No Notes: Memori a Hydrochlori 1-02 (Same As: l de 50 MG 03:00: Desyrel) Holly nn Oral Tablet 00 Trazodone 2014-06 No Notes: Memori a Hydrochlori 1-02 (Same As: l de 50 MG 03:00: Desyrel) Holly nn Oral Tablet 00 gabapentin 2014-06 No Notes: Memor ia 400 MG Oral 1- (Same as: l Capsule 19:00: Neurontin) Herm tc gabapentin 2014-06 No Notes: Memor ia 400 MG Oral - (Same as: l Capsule 19:00: Neurontin) Herm tc gabapentin 2014-06 No Notes: Memor ia 400 MG Oral - (Same as: l Capsule 19:00: Neurontin) Herm tc gabapentin 2014-06 No Notes: Memor ia 400 MG Oral 1- (Same as: l Capsule 19:00: Neurontin) Herm tc gabapentin 2014-06 No Notes: Memor ia 400 MG Oral 1- (Same as: l Capsule 19:00: Neurontin) Herm tc gabapentin 2014-06 No Notes: Memor ia 400 MG Oral 1- (Same as: l Capsule 19:00: Neurontin) Herm tc gabapentin 2014-06 No Notes: Memor ia 400 MG Oral 1- (Same as: l Capsule 19:00: Neurontin) Herm tc Xanax 2014-06 No Notes: Memoria 1- With food l 18:38: or milk Solitario 00 (Same as: Xanax) Xanax 2014-06 No Notes: Memoria 1- With food l 18:38: or milk Solitario 00 (Same as: Xanax) Xanax 2014-06 No Notes: Memoria 1- With food l 18:38: or milk Solitario 00 (Same as: Xanax) Xanax 2014-06 No Notes: Memoria 1- With food l 18:38: or milk Solitario 00 (Same as: Xanax) Xanax 2014-06 No Notes: Memoria 1- With food l 18:38: or milk Libby 00 (Same as: Xanax) Xanax 2014-06 No Notes: Memoria 1- With food l 18:38: or milk Solitario 00 (Same as: Xanax) Xanax 2014-06 No Notes: Memoria 1- With food l 18:38: or milk Libby 00 (Same as: Xanax) Alprazolam 2014-06 No Notes: Memor ia 1 MG Oral 1-01 With food l Tablet 17:55: or milk Solitario [Xanax] 00 (Same as: Xanax) Alprazolam 2014-06 No Notes: Memor ia 1 MG Oral 1-01 With food l Tablet 17:55: or milk Solitario [Xanax] 00 (Same as: Xanax) Alprazolam 2014-06 No Notes: Memor ia 1 MG Oral 1-01 With food l Tablet 17:55: or milk Libby [Xanax] 00 (Same as: Xanax) Alprazolam 2014-06 No Notes: Memor ia 1 MG Oral 1-01 With food l Tablet 17:55: or milk Solitario [Xanax] 00 (Same as: Xanax) Alprazolam 2014-06 No Notes: Memor ia 1 MG Oral 1-01 With food l Tablet 17:55: or milk Libby [Xanax] 00 (Same as: Xanax) Alprazolam 2014-06 No Notes: Memor ia 1 MG Oral 1-01 With food l Tablet 17:55: or milk Solitario [Xanax] 00 (Same as: Xanax) Alprazolam 2014-06 No Notes: Memor ia 1 MG Oral 1-01 With food l Tablet 17:55: or milk Solitario [Xanax] 00 (Same as: Xanax) Acetaminoph 2014-06 No Notes: Joe peter en 300 MG / 1-01 (acetamino l butalbital 17:52: phen-butal H ermann 50 MG / 00 bital-caff Caffeine 40 eine MG Oral 325-50-40m Capsule g) Do not [Fioricet] exceed 4 gm/day of acetaminop hen. (Same as: Esgic, Fioricet) Acetaminoph 2014-06 No Notes: Joe peter en 300 MG / 1-01 (acetamino l butalbital 17:52: phen-butal H ermann 50 MG / 00 bital-caff Caffeine 40 eine MG Oral 325-50-40m Capsule g) Do not [Fioricet] exceed 4 gm/day of acetaminop hen. (Same as: Esgic, Fioricet) Acetaminoph 2014-06 No Notes: Joe peter en 300 MG / 1-01 (acetamino l butalbital 17:52: phen-butal H ermann 50 MG / 00 bital-caff Caffeine 40 eine MG Oral 325-50-40m Capsule g) Do not [Fioricet] exceed 4 gm/day of acetaminop hen. (Same as: Esgic, Fioricet) Acetaminoph 2014-06 No Notes: Joe peter en 300 MG / 1-01 (acetamino l butalbital 17:52: phen-butal H ermann [...] IV l 1000ml 17:38: - Do Not Libby (Premix) 00 Alter 1,000 mL NS + KCL 2014-06 No Notes: Memoria 40mEq/L 1 PREMIX IV l 1000ml 17:38: - Do Not Libby (Premix) 00 Alter 1,000 mL NS + KCL 2014-06 No Notes: Memoria 40mEq/L 1 PREMIX IV l 1000ml 17:38: - Do Not Solitario (Premix) 00 Alter 1,000 mL NS + KCL 2014-06 No Notes: Memoria 40mEq/L 1 PREMIX IV l 1000ml 17:38: - Do Not Libby (Premix) 00 Alter 1,000 mL NS + KCL 2014-06 No Notes: Memoria 40mEq/L 1 PREMIX IV l 1000ml 17:38: - Do Not Libby (Premix) 00 Alter 1,000 mL NS + KCL 2014-06 No Notes: Memoria 40mEq/L 1-01 PREMIX IV l 1000ml 17:38: - Do Not Libby (Premix) 00 Alter 1,000 mL NS + KCL 2014-06 No Notes: Memoria 40mEq/L 1 PREMIX IV l 1000ml 17:38: - Do Not Solitario (Premix) 00 Alter 1,000 mL Zosyn 2014-06 No Notes: Memoria 1 Infuse l 15:00: over 4 Libby 00 hours. (same as: Zosyn) Zosyn 2014-06 No Notes: Memoria 1-01 Infuse l 15:00: over 4 Libby 00 hours. (same as: Zosyn) Zosyn 2014-06 No Notes: Memoria 1- Infuse l 15:00: over 4 Solitario 00 hours. (same as: Zosyn) Zosyn 2014-06 No Notes: Memoria 1- Infuse l 15:00: over 4 Solitario 00 hours. (same as: Zosyn) Zosyn 2014-06 No Notes: Memoria 1- Infuse l 15:00: over 4 Solitario 00 hours. (same as: Zosyn) Zosyn 2014-06 No Notes: Memoria 1-01 Infuse l 15:00: over 4 Solitario 00 hours. (same as: Zosyn) Zosyn 2014-06 No Notes: Memoria 1- Infuse l 15:00: over 4 Libby 00 hours. (same as: Zosyn) ketOROLAC 2014-06 No 4 days Memor ia 15 mg/mL 0-31 l injectable 23:08: MEDICATION H ermann solution 00 WASTE Product Size: 30 mg Product Wasted: ___ mg Acetaminoph 2014-06 No Notes: Joe peter en 0-31 Infuse l 23:08: over 15 Libby 00 minutes Do not exceed 4gm/day of [...] en 0-31 Infuse l 23:08: over 15 Libby 00 minutes Do not exceed 4gm/day of acetaminop hen MEDICATION WASTE Product Size: 1000 mg Product Wasted: ___ mg Zosyn 2014-06 No Notes: Memoria 0-31 Infuse l 23:00: over 4 Libby 00 hours. (same as: Zosyn) Zosyn 2014-06 No Notes: Memoria 0-31 Infuse l 23:00: over 4 Solitario 00 hours. (same as: Zosyn) Zosyn 2014-06 No Notes: Memoria 0-31 Infuse l 23:00: over 4 Solitario 00 hours. (same as: Zosyn) Zosyn 2014-06 No Notes: Memoria 0-31 Infuse l 23:00: over 4 Solitario 00 hours. (same as: Zosyn) Zosyn 2014-06 No Notes: Memoria 0-31 Infuse l 23:00: over 4 Libby 00 hours. (same as: Zosyn) Zosyn 2014-06 No Notes: Memoria 0-31 Infuse l 23:00: over 4 Solitario 00 hours. (same as: Zosyn) Zosyn 2014-06 No Notes: Memoria 0-31 Infuse l 23:00: over 4 Libby 00 hours. (same as: Zosyn) Hydralazine 2014-06 [...] 0-31 acetaminop l 22:20: hen = 4000 Libby 00 mg/day (4 gm/day). (Same as: Tylenol) Hydralazine 2014-06 No Notes: Joe peter 0-31 (Same as: l 22:20: Apresoline Libby 00 ) Push over 5 minutes Acetaminoph 2014-06 No Notes: Max Memoria en 0-31 acetaminop l 22:20: hen = 4000 Solitario 00 mg/day (4 gm/day). (Same as: Tylenol) Hydralazine 2014-06 No Notes: Joe peter 0-31 (Same as: l 22:20: Apresoline Solitario 00 ) Push over 5 minutes Acetaminoph 2014-06 No Notes: Max Memoria en 0-31 acetaminop l 22:20: hen = 4000 Libby 00 mg/day (4 gm/day). (Same as: Tylenol) [...] 0-31 acetaminop l 22:20: hen = 4000 Libby 00 mg/day (4 gm/day). (Same as: Tylenol) Hydralazine 2014-06 No Notes: Joe peter 0-31 (Same as: l 22:20: Apresoline Libby 00 ) Push over 5 minutes Acetaminoph 2014-06 No Notes: Max Memoria en 0-31 acetaminop l 22:20: hen = 4000 Libby 00 mg/day (4 gm/day). (Same as: Tylenol) Zofran 2014-06 No Notes: Memoria 0-31 (Same as: l 22:19: Zofran) Libby 00 MEDICATION WASTE Product Size: 4 mg Product Wasted: ___ mg Dilaudid 2014-06 No Notes: Memoria 0-31 (Same as: l 22:19: Dilaudid) Solitario 00 Zofran 2014-06 No Notes: Memoria 0-31 (Same as: l 22:19: Zofran) Solitario 00 MEDICATION WASTE Product Size: 4 mg Product Wasted: ___ mg Dilaudid 2014-06 No Notes: Memoria 0-31 (Same as: l 22:19: Dilaudid) Solitario Zofran 2014-06 No Notes: Memoria 0-31 (Same as: l 22:19: Zofran) Solitario 00 MEDICATION WASTE Product Size: 4 mg Product Wasted: ___ mg Dilaudid 2014-06 No Notes: Memoria 0-31 (Same as: l 22:19: Dilaudid) Solitario 2014-06 No Notes: Memoria 0-31 (Same as: l 22:19: Zofran) Solitario 00 MEDICATION WASTE Product Size: 4 mg Product Wasted: ___ mg Dilaudid 2014-06 No Notes: Memoria 0-31 (Same as: l 22:19: Dilaudid) Libby 2014-06 No Notes: Memoria 0-31 (Same as: l 22:19: Zofran) Solitario 00 MEDICATION WASTE Product Size: 4 mg Product Wasted: ___ mg Dilaudid 2014-06 No Notes: Memoria 0-31 (Same as: l 22:19: Dilaudid) Solitario an 2014-06 No Notes: Memoria 0-31 (Same as: l 22:19: Zofran) Solitario 00 MEDICATION WASTE Product Size: 4 mg Product Wasted: ___ mg Dilaudid 2014-06 No Notes: Memoria 0-31 (Same as: l 22:19: Dilaudid) Solitario Zofran 2014-06 No Notes: Memoria 0-31 (Same as: l 22:19: Zofran) Solitario 00 MEDICATION WASTE Product Size: 4 mg Product Wasted: ___ mg Dilaudid 2014-06 No Notes: Memoria 0-31 (Same as: l 22:19: Dilaudid) Solitario NS + KCL 2014-06 No Notes: Memoria [...] IV l 1000ml 22:17: - Do Not Libby (Premix) 00 Alter 1,000 mL NS + KCL 2014-06 No Notes: Memoria 40mEq/L 0-31 PREMIX IV l 1000ml 22:17: - Do Not Libby (Premix) 00 Alter 1,000 mL NS + KCL 2014-06 No Notes: Memoria 40mEq/L 0-31 PREMIX IV l 1000ml 22:17: - Do Not Libby (Premix) 00 Alter 1,000 mL baclofen 2014-06 Yes 10 mg = 1 M emoria mg oral 0-31 tab, PO, l tablet 22:16: TID, PRN Libby 00 Spasms, # 90 tab, 0 Refill(s) baclofen 2014-06 Yes 10 mg = 1 M emoria mg oral 0-31 tab, PO, l tablet 22:16: TID, PRN Libby 00 Spasms, # 90 tab, 0 Refill(s) baclofen 2014-06 Yes 10 mg = 1 M emoria mg oral 0-31 tab, PO, l tablet 22:16: TID, PRN Libby 00 Spasms, # 90 tab, 0 Refill(s) baclofen 2014-06 Yes 10 mg = 1 M emoria mg oral 0-31 tab, PO, l tablet 22:16: TID, PRN Solitario 00 Spasms, # 90 tab, 0 Refill(s) baclofen 2014-06 Yes 10 mg = 1 M emoria mg oral 0-31 tab, PO, l tablet 22:16: TID, PRN Solitario 00 Spasms, # 90 tab, 0 Refill(s) baclofen 2014-06 Yes 10 mg = 1 M emoria mg oral 0-31 tab, PO, l tablet 22:16: TID, PRN Solitario 00 Spasms, # 90 tab, 0 Refill(s) baclofen 2014-06 Yes 10 mg = 1 M emoria mg oral 0-31 tab, PO, l tablet 22:16: TID, PRN Libby 00 Spasms, # 90 tab, 0 Refill(s) [...] tab, PO, l Tablet 21:14: Daily, # Libby 00 30 tab, 0 Refill(s) Metoclopram 2014-06 [...] tab, PO, l Tablet 21:14: Daily, # Libby 00 30 tab, 0 Refill(s) Metoclopram 2014-06 [...] tab, PO, l Tablet 21:14: Daily, # Libby 00 30 tab, 0 Refill(s) Metoclopram 2014-06 [...] tab, PO, l Tablet 21:14: Daily, # Libby 00 30 tab, 0 Refill(s) Metoclopram 2014-06 [...] tab, PO, l Tablet 21:14: Daily, # Libby 00 30 tab, 0 Refill(s) Metoclopram 2014-06 [...] tab, PO, l Tablet 21:14: Daily, # Libby 00 30 tab, 0 Refill(s) Metoclopram 2014-06 Yes 10 mg = 1 M emoria james 10 MG 0-31 tab, PO, l Oral Tablet 21:14: Q6H, PRN He rmann 00 headache, # 56 tab, 0 Refill(s) Dilaudid 2014-06 No 1 mg, Memoria 0-31 Route: l 20:39: IVP, ONCE, Solitario 00 Dosing Weight 74.091, kg, Priority: STAT, Start date: 04/27/15 15:39:00, Stop date: 04/27/15 15:39:00 Dilaudid 2014- No 1 mg, Memoria 0-31 Route: l 20:39: IVP, ONCE, Solitario 00 Dosing Weight 74.091, kg, Priority: STAT, Start date: 04/27/15 15:39:00, Stop date: 04/27/15 15:39:00 Dilaudid 2014- No 1 mg, Memoria 0-31 Route: l 20:39: IVP, ONCE, Solitario 00 Dosing Weight 74.091, kg, Priority: STAT, Start date: 04/27/15 15:39:00, Stop date: 04/27/15 15:39:00 Dilaudid 2014- No 1 mg, Memoria 0-31 Route: l 20:39: IVP, ONCE, Libby 00 Dosing Weight 74.091, kg, Priority: STAT, Start date: 04/27/15 15:39:00, Stop date: 04/27/15 15:39:00 Dilaudid 2014-06 No 1 mg, Memoria 0-31 Route: l 20:39: IVP, ONCE, Libby 00 Dosing Weight 74.091, kg, Priority: STAT, Start date: 04/27/15 15:39:00, Stop date: 04/27/15 15:39:00 Dilaudid 2014- No 1 mg, Memoria 0-31 Route: l 20:39: IVP, ONCE, Libby 00 Dosing Weight 74.091, kg, Priority: STAT, Start date: 04/27/15 15:39:00, Stop date: 04/27/15 15:39:00 Dilaudid 2014-06 No 1 mg, Memoria 0-31 Route: l 20:39: IVP, ONCE, Solitario 00 Dosing Weight 74.091, kg, Priority: STAT, Start date: 04/27/15 15:39:00, Stop date: 04/27/15 15:39:00 Phenergan 2014- No 25 mg, Memori a 0-31 Route: IM, l 19:29: ONCE, Libby 00 Dosing Weight 74.091, kg, Start date: 04/27/15 14:29:00, Stop date: 04/27/15 14:29:00 Ondansetron 2014-1 No 4 mg, Memor ia 0-31 Route: l 19:29: IVP, ONCE, Solitario 00 Dosing Weight 74.091, kg, Priority: STAT, Start date: 04/27/15 14:29:00, Stop date: 04/27/15 14:29:00 Phenergan 2014-1 No 25 mg, Memori a 0-31 Route: IM, l 19:29: ONCE, Libby Dosing Weight 74.091, kg, Start date: 04/27/15 14:29:00, Stop date: 04/27/15 14:29:00 Ondansetron 2014-1 No 4 mg, Memor ia 0-31 Route: l 19:29: IVP, ONCE, Libby 00 Dosing Weight 74.091, kg, Priority: STAT, Start date: 04/27/15 14:29:00, Stop date: 04/27/15 14:29:00 Phenergan 2014-1 No 25 mg, Memori a 0-31 Route: IM, l 19:29: ONCE, Solitario Dosing Weight 74.091, kg, Start date: 04/27/15 14:29:00, Stop date: 04/27/15 14:29:00 Ondansetron 2014-1 No 4 mg, Memor ia 0-31 Route: l 19:29: IVP, ONCE, Libby 00 Dosing Weight 74.091, kg, Priority: STAT, Start date: 04/27/15 14:29:00, Stop date: 04/27/15 14:29:00 Phenergan 2014-1 No 25 mg, Memori a 0-31 Route: IM, l 19:29: ONCE, Libby Dosing Weight 74.091, kg, Start date: 04/27/15 14:29:00, Stop date: 04/27/15 14:29:00 Ondansetron 2014-1 No 4 mg, Memor ia 0-31 Route: l 19:29: IVP, ONCE, Solitario 00 Dosing Weight 74.091, kg, Priority: STAT, Start date: 04/27/15 14:29:00, Stop date: 04/27/15 14:29:00 Phenergan 2014- No 25 mg, Memori a 0-31 Route: IM, l 19:29: ONCE, Solitario 00 Dosing Weight 74.091, kg, Start date: 04/27/15 14:29:00, Stop date: 04/27/15 14:29:00 Ondansetron 2014- No 4 mg, Memor ia 0-31 Route: l 19:29: IVP, ONCE, Dosing Weight 74.091, kg, Priority: STAT, Start date: 04/27/15 14:29:00, Stop date: 04/27/15 14:29:00 Phenergan 2014- No 25 mg, Memori a 0-31 Route: IM, l 19:29: ONCE, Solitario 00 Dosing Weight 74.091, kg, Start date: 04/27/15 14:29:00, Stop date: 04/27/15 14:29:00 Ondansetron 2014- No 4 mg, Memor ia 0-31 Route: l 19:29: IVP, ONCE, Dosing Weight 74.091, kg, Priority: STAT, Start date: 04/27/15 14:29:00, Stop date: 04/27/15 14:29:00 Phenergan 2014- No 25 mg, Memori a 0-31 Route: IM, l 19:29: ONCE, Dosing Weight 74.091, kg, Start date: 04/27/15 14:29:00, Stop date: 04/27/15 14:29:00 Ondansetron 2014- No 4 mg, Memor ia 0-31 Route: l 19:29: IVP, ONCE, Dosing Weight 74.091, kg, Priority: STAT, Start date: 04/27/15 14:29:00, Stop date: 04/27/15 14:29:00 Potassium 2014- No Notes: Memori a Chloride 20 0-31 (Same as: l MEQ 17:19: K-Dur 20) Libby Extended 00 "Do Not Release Crush" Tablet With food and full glass of water Potassium 2015- No Notes: Memori a Chloride 20 0-31 (Same as: l MEQ 17:19: K-Dur 20) Libby Extended 00 "Do Not Release Crush" Tablet With food and full glass of water Potassium 2014-06 No Notes: Memori a Chloride 20 0-31 (Same as: l MEQ 17:19: K-Dur 20) Libby Extended "Do Not Release Crush" Tablet With food and full glass of water Potassium 2014-06 No Notes: Memori a Chloride 20 0-31 (Same as: l MEQ 17:19: K-Dur 20) Solitario Extended "Do Not Release Crush" Tablet With food and full glass of water Potassium 2014-06 No Notes: Memori a Chloride 20 0-31 (Same as: l MEQ 17:19: K-Dur 20) Libby Extended "Do Not Release Crush" Tablet With food and full glass of water Potassium 2014-06 No Notes: Memori a Chloride 20 0-31 (Same as: l MEQ 17:19: K-Dur 20) Libby Extended "Do Not Release Crush" Tablet With food and full glass of water Potassium 2014-06 No Notes: Memori a Chloride 20 0-31 (Same as: l MEQ 17:19: K-Dur 20) Libby Extended "Do Not Release Crush" Tablet With food and full glass of water Hydromorpho 2014-06 No 1 mg, Memor ia ne 0-31 Route: l 16:30: IVP, ONCE, Solitario 00 Dosing Weight 74.091, kg, Priority: STAT, Start date: 04/27/15 11:30:00, Stop date: 04/27/15 11:30:00 Hydromorpho 2014-06 No 1 mg, Memor ia ne 0-31 Route: l 16:30: IVP, ONCE, Libby Dosing Weight 74.091, kg, Priority: STAT, Start date: 04/27/15 11:30:00, Stop date: 04/27/15 11:30:00 Hydromorpho 2014-06 No 1 mg, Memor ia ne 0-31 Route: l 16:30: IVP, ONCE, Solitario Dosing Weight 74.091, kg, Priority: STAT, Start date: 04/27/15 11:30:00, Stop date: 04/27/15 11:30:00 Hydromorpho 2014-06 No 1 mg, Memor ia ne 0-31 Route: l 16:30: IVP, ONCE, Libby 00 Dosing Weight 74.091, kg, Priority: STAT, Start date: 04/27/15 11:30:00, Stop date: 04/27/15 11:30:00 Hydromorpho 2014-06 No 1 mg, Memor ia ne 0-31 Route: l 16:30: IVP, ONCE, Dosing Weight 74.091, kg, Priority: STAT, Start date: 04/27/15 11:30:00, Stop date: 04/27/15 11:30:00 Hydromorpho 2014-06 No 1 mg, Memor ia ne 0-31 Route: l 16:30: IVP, ONCE, [place] 00 Dosing Weight 74.091, kg, Priority: STAT, Start date: 04/27/15 11:30:00, Stop date: 04/27/15 11:30:00 Hydromorpho 2014-06 No 1 mg, Memor ia ne 031 Route: l 16:30: IVP, ONCE, Dosing Weight 74.091, kg, Priority: STAT, Start date: 04/27/15 11:30:00, Stop date: 04/27/15 11:30:00 Ondansetron 2014-06 No 4 mg, Memor ia 0 Route: l 15:34: IVP, ONCE, Dosing Weight 74.091, kg, Priority: STAT, Start date: 04/27/15 10:34:00, Stop date: 04/27/15 10:34:00 Saline 2014-06 No Notes: Memoria Flush 0.9% 0-31 (Same as: l 15:34: BD [place] 00 Posiflush) Sodium 2014-06 No 1,000 mL, Memori a Chloride 0-31 Infuse l 0.154 15:34: Over: 1 Solitario MEQ/ML 00 hr, Route: Injectable IV, ONCE, Solution Priority: STAT, Dosing Weight 74.091 kg, Start date: 04/27/15 10:34:00, Duration: 1 doses or times, Stop date: 04/27/15 10:34:00 Ondansetron 2014-06 No 4 mg, Memor ia 031 Route: l 15:34: IVP, ONCE, Solitario Dosing Weight 74.091, kg, Priority: STAT, Start date: 04/27/15 10:34:00, Stop date: 04/27/15 10:34:00 Saline 2014-06 No Notes: Memoria Flush 0.9% 0-31 (Same as: l 15:34: BD [place] 00 Posiflush) Sodium 2014-06 No 1,000 mL, Memori a Chloride 0-31 Infuse l 0.154 15:34: Over: 1 [place] MEQ/ML 00 hr, Route: Injectable IV, ONCE, [...] 0.9% 0-31 (Same as: l 15:34: BD [place] 00 Posiflush) Sodium 2014-06 No 1,000 mL, Memori a Chloride 0-31 Infuse l 0.154 15:34: Over: 1 Solitario MEQ/ML 00 hr, Route: Injectable IV, ONCE, [...] 0.9% 0-31 (Same as: l 15:34: BD [place] 00 Posiflush) Sodium 2014-06 No 1,000 mL, Memori a Chloride 0-31 Infuse l 0.154 15:34: Over: 1 Solitario MEQ/ML 00 hr, Route: Injectable IV, ONCE, Solution Priority: STAT, Dosing Weight 74.091 kg, Start date: 04/27/15 10:34:00, Duration: 1 doses or times, Stop date: 04/27/15 10:34:00 Ondansetron 2014-06 No 4 mg, Memor ia 0-31 Route: l 15:34: IVP, ONCE, Solitario Dosing Weight 74.091, kg, Priority: STAT, Start date: 04/27/15 10:34:00, Stop date: 04/27/15 10:34:00 Saline 2014-06 No Notes: Memoria Flush 0.9% 0-31 (Same as: l 15:34: BD [place] 00 Posiflush) Sodium 2014-06 No 1,000 mL, Memori a Chloride 0-31 Infuse l 0.154 15:34: Over: 1 [place] MEQ/ML 00 hr, Route: Injectable IV, ONCE, Solution Priority: STAT, Dosing Weight 74.091 kg, Start date: 04/27/15 10:34:00, Duration: 1 doses or times, Stop date: 04/27/15 10:34:00 Ondansetron 2014-06 No 4 mg, Memor ia 0-31 Route: l 15:34: IVP, ONCE, Solitario Dosing Weight 74.091, kg, Priority: STAT, Start date: 04/27/15 10:34:00, Stop date: 04/27/15 10:34:00 Saline 2014-06 No Notes: Memoria Flush 0.9% 0-31 (Same as: l 15:34: BD [facility] 00 Posiflush) Sodium 2014-06 No 1,000 mL, Mem[facility] a Chloride 0-31 Infuse l 0.154 15:34: Over: 1 [facility] MEQ/ML 00 hr, Route: Injectable IV, ONCE, Solution Priority: STAT, Dosing Weight 74.091 kg, Start date: 04/27/15 10:34:00, Duration: 1 doses or times, Stop date: 04/27/15 10:34:00 Ondansetron 2014-06 No 4 mg, Memor ia 0-31 Route: l 15:34: IVP, ONCE, [facility] 00 Dosing Weight 74.091, kg, Priority: STAT, Start date: 04/27/15 10:34:00, Stop date: 04/27/15 10:34:00 Saline 2014-06 No Notes: Memoria Flush 0.9% 0-31 (Same as: l 15:34: BD Solit[facility] 00 Posiflush) Sodium 2014-06 No 1,000 mL, Mem[facility] a Chloride 0-31 Infuse l 0.154 15:34: Over: 1 [facility] MEQ/ML 00 hr, Route: Injectable IV, ONCE, Solution Priority: STAT, Dosing Weight 74.091 kg, Start date: 04/27/15 10:34:00, Duration: 1 doses or times, Stop date: 04/27/15 10:34:00 Sulfamethox Yes 1 tab, PO, Memoria azole 800 7-05 BID, X 7 l MG / 21:51: day, # 14 [facility] Trimethopri 00 tab, 0 m 160 MG Refill(s), Oral Tablet Pharmacy: [[facility] Sulfamethox Yes 1 tab, PO, Memoria azole 800 7-05 BID, X 7 l MG / 21:51: day, # 14 [place] Trimethopri 00 tab, 0 m 160 MG Refill(s), Oral Tablet Pharmacy: [[facility] Sulfamethox Yes 1 tab, PO, Memoria azole 800 7-05 BID, X 7 l MG / 21:51: day, # 14 [facility] Trimethopri 00 tab, 0 m 160 MG Refill(s), Oral Tablet Pharmacy: [[facility] Sulfamethox Yes 1 tab, PO, Memoria azole 800 7-05 BID, X 7 l MG / 21:51: day, # 14 [facility] Trimethopri 00 tab, 0 m 160 MG Refill(s), Oral Tablet Pharmacy: [[facility]] [facility] Sulfamethox Yes 1 tab, PO, Memoria azole 800 7-05 BID, X 7 l MG / 21:51: day, # 14 [facility] Trimethopri 00 tab, 0 m 160 MG Refill(s), Oral Tablet Pharmacy: [[place] [id number] Sulfamethox Yes 1 tab, PO, Memoria azole 800 7-05 BID, X 7 l MG / 21:51: day, # 14 [facility] Trimethopri 00 tab, 0 m 160 MG Refill(s), Oral Tablet Pharmacy: [[place] [id number] Sulfamethox Yes 1 tab, PO, Memoria azole 800 7-05 BID, X 7 l MG / 21:51: day, # 14 [place] Trimethopri 00 tab, 0 m 160 MG Refill(s), Oral Tablet Pharmacy: [place] [id number] Furosemide Yes 20 mg = 1 Me moria 20 MG Oral 4-27 tab, PO, l Tablet 17:40: Daily, # 3 Holly nn [Lasix] 00 tab, 0 Refill(s), Pharmacy: [place] [id number] Furosemide Yes 20 mg = 1 Me moria 20 MG Oral 4-27 tab, PO, l Tablet 17:40: Daily, # 3 Holly nn [Lasix] 00 tab, 0 Refill(s), Pharmacy: [place] [id number] Furosemide Yes 20 mg = 1 Me moria 20 MG Oral 4-27 tab, PO, l Tablet 17:40: Daily, # 3 Holly nn [Lasix] 00 tab, 0 Refill(s), Pharmacy: [place] [id number] Furosemide Yes 20 mg = 1 Me moria 20 MG Oral 4-27 tab, PO, l Tablet 17:40: Daily, # 3 Holly nn [Lasix] 00 tab, 0 Refill(s), Pharmacy: [place] [id number] Furosemide Yes 20 mg = 1 Me moria 20 MG Oral 4-27 tab, PO, l Tablet 17:40: Daily, # 3 Holly nn [Lasix] 00 tab, 0 Refill(s), Pharmacy: [place] [id number] Furosemide Yes 20 mg = 1 Me moria 20 MG Oral 4-27 tab, PO, l Tablet 17:40: Daily, # 3 Holly nn [Lasix] 00 tab, 0 Refill(s), Pharmacy: [facility] [id number] Furosemide 2014-0 Yes 20 mg = 1 Me moria 20 MG Oral 4-27 tab, PO, l Tablet 17:40: Daily, # 3 Holly nn [Lasix] 00 tab, 0 Refill(s), Pharmacy: [facility] [id number] Reglan 0 No 10 mg, Memoria 4-27 Route: l 16:30: IVP, Drug Libby 00 form: INJ, ONCE, Dosing Weight 83.682, kg, Priority: STAT, Start date: 10/22/14 11:30:00, Stop date: 10/22/14 11:30:00 Reglan 2014-0 No 10 mg, Memoria 4- Route: l 16:30: IVP, Drug Libby 00 form: INJ, ONCE, Dosing Weight 83.682, kg, Priority: STAT, Start date: 10/22/14 11:30:00, Stop date: 10/22/14 11:30:00 Reglan 2014-0 No 10 mg, Memoria 4 Route: l 16:30: IVP, Drug [facility] 00 form: INJ, ONCE, Dosing Weight 83.682, kg, Priority: STAT, Start date: 10/22/14 11:30:00, Stop date: 10/22/14 11:30:00 Reglan 2014-0 No 10 mg, Memoria - Route: l 16:30: IVP, Drug [facility] 00 form: INJ, ONCE, Dosing Weight 83.682, kg, Priority: STAT, Start date: 10/22/14 11:30:00, Stop date: 10/22/14 11:30:00 Reglan 2014-0 No 10 mg, Memoria 4-27 Route: l 16:30: IVP, Drug [facility] 00 form: INJ, ONCE, Dosing Weight 83.682, kg, Priority: STAT, Start date: 10/22/14 11:30:00, Stop date: 10/22/14 11:30:00 Reglan 2014-0 No 10 mg, Memoria 4-27 Route: l 16:30: IVP, Drug [facility] 00 form: INJ, ONCE, Dosing Weight 83.682, kg, Priority: STAT, Start date: 10/22/14 11:30:00, Stop date: 10/22/14 11:30:00 Reglan 2015-0 No 10 mg, Memoria 4-27 Route: l 16:30: IVP, Drug Lib[facility] 00 form: INJ, ONCE, Dosing Weight 83.682, kg, Priority: STAT, Start date: 10/22/14 11:30:00, Stop date: 10/22/14 11:30:00 Saline 2014-0 No 10 mL, Memoria Flush 0.9% 4- Route: l 16:29: IVP, Drug [facility] 00 Form: INJ, Dosing Weight 83.682, kg, PRN, PRN Line Flush, Start date: 10/22/14 11:29:00, Duration: 30 day, Stop date: 11/21/14 11:28:00 Saline 2015-0 No 10 mL, Memoria Flush 0.9% - Route: l 16:29: IVP, Drug Sol[facility] 00 Form: INJ, Dosing Weight 83.682, kg, PRN, PRN Line Flush, Start date: 10/22/14 11:29:00, Duration: 30 day, Stop date: 11/21/14 11:28:00 Saline 2014-0 No 10 mL, Memoria Flush 0.9% 4- Route: l 16:29: IVP, Drug [facility] 00 Form: INJ, Dosing Weight 83.682, kg, PRN, PRN Line Flush, Start date: 10/22/14 11:29:00, Duration: 30 day, Stop date: 11/21/14 11:28:00 Saline 2014-0 No 10 mL, Memoria Flush 0.9% 4- Route: l 16:29: IVP, Drug [facility] 00 Form: INJ, Dosing Weight 83.682, kg, PRN, PRN Line Flush, Start date: 10/22/14 11:29:00, Duration: 30 day, Stop date: 11/21/14 11:28:00 Saline 2015-0 No 10 mL, Memoria Flush 0.9% 4-27 Route: l 16:29: IVP, Drug [facility] 00 Form: INJ, Dosing Weight 83.682, kg, PRN, PRN Line Flush, Start date: 10/22/14 11:29:00, Duration: 30 day, Stop date: 11/21/14 11:28:00 Saline No 10 mL, Memoria Flush 0.9% 10-22 Route: l 16:29: IVP, Drug Solit[facility] 00 Form: INJ, Dosing Weight 83.682, kg, PRN, PRN Line Flush, Start date: 10/22/14 11:29:00, Duration: 30 day, Stop date: 11/21/14 11:28:00 Saline No 10 mL, Memoria Flush 0.9% 10-22 Route: l 16:29: IVP, Drug Libby 00 Form: INJ, Dosing Weight 83.682, kg, PRN, PRN Line Flush, Start date: 10/22/14 11:29:00, Duration: 30 day, Stop date: 11/21/14 11:28:00 Alprazolam No Notes: Memor ia 1 MG Oral 1-23 With food l Tablet 06:36: or milk Libby [Xanax] 00 (Same as: Xanax) Alprazolam No Notes: Memor ia 1 MG Oral 1-23 With food l Tablet 06:36: or milk Solit[facility] [Xanax] 00 (Same as: Xanax) Alprazolam No Notes: Memor ia 1 MG Oral 1-23 With food l Tablet 06:36: or milk Libby [Xanax] 00 (Same as: Xanax) Alprazolam No Notes: Memor ia 1 MG Oral 1-23 With food l Tablet 06:36: or milk Sol[facility] [Xanax] 00 (Same as: Xanax) Alprazolam No Notes: Memor ia 1 MG Oral 1-23 With food l Tablet 06:36: or milk Sol[facility] [Xanax] 00 (Same as: Xanax) Alprazolam No Notes: Memor ia 1 MG Oral 1-23 With food l Tablet 06:36: or milk Solit[facility] [Xanax] 00 (Same as: Xanax) Alprazolam No Notes: Memor ia 1 MG Oral 1-23 With food l Tablet 06:36: or milk Solitario [Xanax] 00 (Same as: Xanax) Sodium 2015-0 No 1,000 mL, Memori a Chloride 1-23 1,000 l 0.154 04:42: ml/hr, Libby MEQ/ML 00 Infuse Injectable Over: 1 Solution hr, Route: IV, 1,000, Drug form: INJ, ONCE, Priority: STAT, Dosing Weight 84.545 kg, Start date: 07/19/14 22:42:00, Duration: 1 doses or times, Stop date: 07/19/14 22:42:00 Sodium 2015-0 No 1,000 mL, Memori a Chloride 1-23 1,000 l 0.154 04:42: ml/hr, Libby MEQ/ML 00 Infuse Injectable Over: 1 Solution hr, Route: IV, 1,000, Drug form: INJ, ONCE, Priority: STAT, Dosing Weight 84.545 kg, Start date: 07/19/14 22:42:00, Duration: 1 doses or times, Stop date: 07/19/14 22:42:00 Sodium 2015-0 No 1,000 mL, Memori a Chloride 1-23 1,000 l 0.154 04:42: ml/hr, Libby MEQ/ML 00 Infuse Injectable Over: 1 Solution hr, Route: IV, 1,000, Drug form: INJ, ONCE, Priority: STAT, Dosing Weight 84.545 kg, Start date: 07/19/14 22:42:00, Duration: 1 doses or times, Stop date: 07/19/14 22:42:00 Sodium 2015-0 No 1,000 mL, Memori a Chloride 1-23 1,000 l 0.154 04:42: ml/hr, Libby MEQ/ML 00 Infuse Injectable Over: 1 Solution hr, Route: IV, 1,000, Drug form: INJ, ONCE, Priority: STAT, Dosing Weight 84.545 kg, Start date: 07/19/14 22:42:00, Duration: 1 doses or times, Stop date: 07/19/14 22:42:00 Sodium 2015-0 No 1,000 mL, Memori a Chloride 1-23 1,000 l 0.154 04:42: ml/hr, Libby MEQ/ML 00 Infuse Injectable Over: 1 Solution hr, Route: IV, 1,000, Drug form: INJ, ONCE, Priority: STAT, Dosing Weight 84.545 kg, Start date: 07/19/14 22:42:00, Duration: 1 doses or times, Stop date: 07/19/14 22:42:00 Sodium 2015-0 No 1,000 mL, Memori a Chloride 1-23 1,000 l 0.154 04:42: ml/hr, Libby MEQ/ML 00 Infuse Injectable Over: 1 Solution hr, Route: IV, 1,000, Drug form: INJ, ONCE, Priority: STAT, Dosing Weight 84.545 kg, Start date: 07/19/14 22:42:00, Duration: 1 doses or times, Stop date: 07/19/14 22:42:00 Sodium 2015-0 No 1,000 mL, Memori a Chloride 1-23 1,000 l 0.154 04:42: ml/hr, Libby MEQ/ML 00 Infuse Injectable Over: 1 Solution hr, Route: IV, 1,000, Drug form: INJ, ONCE, Priority: STAT, Dosing Weight 84.545 kg, Start date: 07/19/14 22:42:00, Duration: 1 doses or times, Stop date: 07/19/14 22:42:00 Immunizations Ordered Filled Date Status Comments Source Immunization Name Immunization Name SARS-COV-2 COVID-19 2020-09-19 Completed [facility] 00:00:00 [facility] SARS-COV-2 COVID-19 2020-09-19 Completed [facility] 00:00:00 [facility] ([facility] SARS-COV-2 COVID-19 2020-09-19 Completed [facility] 00:00:00 [facility] ([facility] SARS-COV-2 COVID-19 2020-09-19 Completed [facility] 00:00:00 [facility] ([facility] SARS-COV-2 COVID-19 2020-09-19 Completed [facility] 00:00:00 [facility] ([facility] SARS-COV-2 COVID-19 2020-09-19 Completed [facility] 00:00:00 [facility] ([facility] SARS-COV-2 COVID-19 2020-09-19 Completed [facility] 00:00:00 [facility] ([facility] SARS-COV-2 COVID-19 2020-09-19 Completed [facility] 00:00:00 [facility] ([facility] SARS-COV-2 COVID-19 2020-09-19 Completed [facility] 00:00:00 [facility] ([facility] SARS-COV-2 COVID-19 2020-08-22 Completed [facility] 00:00:00 [facility] ([facility] SARS-COV-2 COVID-19 2020-08-22 Completed [facility] 00:00:00 [facility] ([facility] SARS-COV-2 COVID-19 2020-08-22 Completed [facility] 00:00:00 [facility] ([facility] SARS-COV-2 COVID-19 2020-08-22 Completed [facility] 00:00:00 [facility] ([facility] SARS-COV-2 COVID-19 2020-08-22 Completed [facility] 00:00:00 [facility] ([facility] SARS-COV-2 COVID-19 2020-08-22 Completed [facility] 00:00:00 [facility] ([facility] SARS-COV-2 COVID-19 2020-08-22 Completed [facility] 00:00:00 [facility] ([facility] SARS-COV-2 COVID-19 2020-08-22 Completed [facility] 00:00:00 [facility] ([facility] SARS-COV-2 COVID-19 2020-08-22 Completed [facility] 00:00:00 [facility] influenza virus [facility]-04-[address] [facility] inactivated [facility]04-[address] [facility], 23:11:00 inactivated influenza virus 2015-04-27 Completed [facility] vaccine, 23:11:00 inactivated influenza virus 2015-04-27 Completed [facility] vaccine, 23:11:00 inactivated influenza virus 2015-04-27 Completed [facility] vaccine, 23:11:00 inactivated influenza virus 2015-04-27 Completed [facility] vaccine, 23:11:00 inactivated tetanus-diphtheria 2011-02-14 Completed [facility] toxoids 07:17:00 tetanus-diphtheria 2011-02-14 Completed [facility] toxoids 07:17:00 tetanus-diphtheria 2011-02-14 Completed [facility] toxoids 07:17:00 tetanus-diphtheria 2011-02-14 Completed [facility] toxoids 07:17:00 tetanus-diphtheria 2011-02-14 Completed [facility] toxoids 07:17:00 tetanus-diphtheria 2011-02-14 Completed [facility] toxoids 07:17:00 tetanus-diphtheria 2011-02-14 Completed [facility] toxoids 07:17:00 tetanus-diphtheria 2011-02-14 Completed [facility] toxoids 07:17:00 tetanus-diphtheria 2011-02-14 Completed [facility] toxoids 07:17:00 tetanus-diphtheria 2011-02-14 Completed [facility] toxoids 07:17:00 tetanus-diphtheria 2011-02-14 Completed [facility] toxoids 07:17:00 tetanus-diphtheria 2011-02-14 Completed [facility] toxoids 07:17:00 influenza virus Unknown Completed [facility] vaccine, inactivated tetanus-diphtheria Unknown Completed [facility] toxoids tetanus-diphtheria Unknown Completed [facility] toxoids Vital Signs Vital Name Observation Time Observation Value Comments Source Systolic blood 2023-03-03 21:55:23 163 mm[Hg] [facility] pressure [facility] Diastolic blood 2023-03-03 21:55:23 103 mm[Hg] [facility] of pressure [facility] Heart rate 2023-03-03 21:55:23 64 /min [facility] Respiratory rate 2023-03-03 21:55:23 18 /min [facility] Oxygen saturation in 2023-03-03 21:55:23 99 /min [facility] [place] [employer] [facility] Body temperature 2023-03-03 18:12:00 37.5 [place] [facility] Body height 2023-03-03 18:12:00 165.1 cm [facility] Body weight 2023-03-03 18:12:00 59.875 kg [facility] BMI 2023-03-03 18:12:00 21.97 kg/m2 [facility] Systolic blood 2022-10-25 19:13:00 124 mm[Hg] [facility] Diastolic blood 2022-10-25 19:13:00 86 mm[Hg] [facility] Heart rate 2022-10-25 19:13:00 99 /min [facility] Body temperature 2022-10-25 16:12:00 36.33 [place] [facility] Respiratory rate 2022-10-25 16:12:00 18 /min [facility] Oxygen saturation in 2022-10-25 16:12:00 97 /min [facility] by [place] [employer] [facility] Body weight 2022-10-25 08:37:00 59.966 kg [facility] BMI 2022-10-25 08:37:00 22.00 kg/m2 [facility] Body height 2022-10-23 02:53:00 165.1 cm [facility] Systolic blood 2022-09-14 12:46:00 141 mm[Hg] [facility] Diastolic blood 2022-09-14 12:46:00 93 mm[Hg] [facility] Heart rate 2022-09-14 12:46:00 65 /min [facility] Body temperature 2022-09-14 12:46:00 35.72 [place] [facility] Respiratory rate 2022-09-14 12:46:00 18 /min [facility] Oxygen saturation in 2022-09-14 12:46:00 98 /min [facility] by [place] [employer] [facility] Body weight 2022-09-14 08:42:00 54.466 kg Universi [facility] BMI 2022-09-14 08:42:00 19.98 kg/m2 [facility] Body height 2022-09-13 07:28:00 165.1 cm [facility] Systolic blood 2021-11-12 23:33:00 152 mm[Hg] Univer sity of pressure [facility] Diastolic blood 2021-11-12 23:33:00 97 mm[Hg] [facility]ive rsity of pressure [facility] Heart rate 2021-11-12 23:33:00 64 /min [facility] Body temperature 2021-11-12 21:56:00 37.06 [place] [facility] rate 2021-11-12 21:56:00 18 /min [facility] Oxygen saturation in 2021-11-12 21:56:00 100 /min [facility] Arterial blood by [facility] Pulse oximetry Branch Body weight 2021-11-12 08:09:00 57.97 kg [facility] BMI 2021-11-12 08:09:00 21.27 kg/m2 [facility] Body height 2021-11-11 03:04:00 165.1 cm [facility] Systolic (mm Hg) 2020-11-27 20:27:00 Joe rial [facility] Diastolic (mm Hg) 2020-11-27 20:27:00 Mem [facility] Heart Rate 2020-11-27 20:27:00 [facility] Temperature Oral (F) 2020-11-27 20:27:00 98.2 F [facility] Height 2020-11-27 20:27:00 166.37 cm [facility] Weight 2020-11-27 20:27:00 [facility] BMI Calculated 2020-11-27 20:27:00 [facility] Systolic (mm Hg) 2018-02-10 00:00:00 Joe rial [facility] Diastolic (mm Hg) 2018-02-10 00:00:00 Mem orial [facility] Temperature Oral (F) 2018-02-10 00:00:00 97.7 F [facility] Heart Rate 2018-02-10 00:00:00 [facility] Respitory Rate 2018-02-10 00:00:00 [facility] Systolic (mm Hg) 2018-02-09 23:02:00 Joe [facility] Diastolic (mm Hg) 2018-02-09 23:02:00 Mem o[facility] Respitory Rate 2018-02-09 23:02:00 [facility] Heart Rate 2018-02-09 23:02:00 [facility] Systolic (mm Hg) 2018-02-09 21:54:00 Joe rial [facility] Diastolic (mm Hg) 2018-02-09 21:54:00 Mem orial [facility] Respitory Rate 2018-02-09 21:54:00 [facility] Heart Rate 2018-02-09 21:54:00 [facility] BMI Calculated 2018-02-09 16:42:00 [facility] Weight 2018-02-09 16:42:00 [facility] Height 2018-02-09 16:42:00 165.1 cm [facility] Temperature Oral (F) 2018-02-09 16:42:00 97.9 F [facility] Respitory Rate 2018-01-25 18:15:00 [facility] Heart Rate 2018-01-25 18:15:00 [facility] Systolic (mm Hg) 2018-01-25 18:15:00 Joe [facility] Diastolic (mm Hg) 2018-01-25 18:15:00 Mem o[facility] Temperature Oral (F) 2018-01-25 18:15:00 97.8 F [facility] Weight 2018-01-25 14:34:00 [facility] BMI Calculated 2018-01-25 14:34:00 [facility] Height 2018-01-25 14:34:00 165.1 cm [facility] Systolic (mm Hg) 2018-01-25 14:34:00 Joe [facility] Diastolic (mm Hg) 2018-01-25 14:34:00 Mem orial [facility] Temperature Oral (F) 2018-01-25 14:34:00 98.5 F [facility] Respitory Rate 2018-01-25 14:34:00 [facility] Heart Rate 2018-01-25 14:34:00 [facility] Respitory Rate 2017-11-01 20:18:00 [facility] Heart Rate 2017-11-01 20:18:00 [facility] Systolic (mm Hg) 2017-11-01 20:18:00 Joe [facility] Diastolic (mm Hg) 2017-11-01 20:18:00 Mem [facility] Temperature Oral (F) 2017-11-01 20:18:00 98.1 F [facility] Temperature Oral (F) 2017-11-01 19:43:00 98.1 F [facility] Respitory Rate 2017-11-01 19:43:00 [facility] Heart Rate 2017-11-01 19:43:00 [facility] Systolic (mm Hg) 2017-11-01 19:43:00 Joe rial [facility] Diastolic (mm Hg) 2017-11-01 19:43:00 [facility] Temperature Oral (F) 2017-11-01 16:46:00 97.7 F [facility] Height 2017-11-01 16:46:00 165.1 cm [facility] Weight 2017-11-01 16:46:00 [facility] BMI Calculated 2017-11-01 16:46:00 [facility] Systolic (mm Hg) 2017-11-01 16:46:00 Joe [facility] Diastolic (mm Hg) 2017-11-01 16:46:00 Mem [facility] Respitory Rate 2017-11-01 16:46:00 [facility] Heart Rate 2017-11-01 16:46:00 [facility] Systolic (mm Hg) 2017-05-17 03:55:00 Joe [facility] Diastolic (mm Hg) 2017-05-17 03:55:00 [facility] Heart Rate 2017-05-17 03:55:00 [facility] Respitory Rate 2017-05-17 03:55:00 [facility] Temperature Oral (F) 2017-05-17 03:55:00 98.6 F [facility] Weight 2017-05-17 00:51:00 [facility] Temperature Oral (F) 2017-05-17 00:51:00 98.5 F [facility] Heart Rate 2017-05-17 00:51:00 [facility] Respitory Rate 2017-05-17 00:51:00 [facility] Systolic (mm Hg) 2017-05-17 00:51:00 Joe [facility] Diastolic (mm Hg) 2017-05-17 00:51:00 [facility] Heart Rate 2017-04-09 16:02:00 [facility] Systolic (mm Hg) 2017-04-09 16:02:00 [facility] Diastolic (mm Hg) 2017-04-09 16:02:00 [facility] Respitory Rate 2017-04-09 16:02:00 [facility] Weight 2017-04-09 14:43:00 [facility] BMI Calculated 2017-04-09 14:43:00 [facility] Height 2017-04-09 14:43:00 165.1 cm [facility] Temperature Oral (F) 2017-04-09 14:43:00 97.9 F [facility] Systolic (mm Hg) 2017-04-09 14:43:00 Joe rial [facility] Diastolic (mm Hg) 2017-04-09 14:43:00 [facility] Respitory Rate 2017-04-09 14:43:00 [facility] Heart Rate 2017-04-09 14:43:00 [facility] Heart Rate 2017-01-20 06:46:00 [facility] Respitory Rate 2017-01-20 06:46:00 [facility] Temperature Oral (F) 2017-01-20 06:46:00 97.9 F [facility] Systolic (mm Hg) 2017-01-20 06:46:00 Joe rial [facility] Diastolic (mm Hg) 2017-01-20 06:46:00 [facility] Temperature Oral (F) 2017-01-20 05:49:00 98.0 F [facility] Respitory Rate 2017-01-20 05:49:00 [facility] Systolic (mm Hg) 2017-01-20 05:49:00 Joe [facility] Diastolic (mm Hg) 2017-01-20 05:49:00 [facility] Heart Rate 2017-01-20 05:49:00 [facility] Systolic (mm Hg) 2017-01-20 03:00:00 [facility] Diastolic (mm Hg) 2017-01-20 03:00:00 [facility] Respitory Rate 2017-01-20 03:00:00 [facility] Heart Rate 2017-01-20 03:00:00 [facility] Height 2017-01-20 00:47:00 165.1 cm [facility] BMI Calculated 2017-01-20 00:47:00 [facility] Weight 2017-01-20 00:47:00 [facility] Temperature Oral (F) 2017-01-20 00:47:00 98.2 F [facility] Temperature Oral (F) 2017-01-08 23:12:00 98 F [facility] Heart Rate 2017-01-08 23:12:00 [facility] Respitory Rate 2017-01-08 23:12:00 [facility] Systolic (mm Hg) 2017-01-08 23:12:00 [facility] Diastolic (mm Hg) 2017-01-08 23:12:00 [facility] BMI Calculated 2017-01-08 19:43:00 [facility] Weight 2017-01-08 19:43:00 [facility] Height 2017-01-08 19:43:00 165.1 cm [facility] Respitory Rate 2017-01-08 19:43:00 [facility] Temperature Oral (F) 2017-01-08 19:43:00 98.1 F [facility] Heart Rate 2017-01-08 19:43:00 [facility] Systolic (mm Hg) 2017-01-08 19:43:00 [facility] Diastolic (mm Hg) 2017-01-08 19:43:00 [facility] Temperature Oral (F) 2016-09-20 23:48:00 98.0 F [facility] Respitory Rate 2016-09-20 23:48:00 [facility] Heart Rate 2016-09-20 23:48:00 [facility] Systolic (mm Hg) 2016-09-20 23:48:00 [facility] Diastolic (mm Hg) 2016-09-20 23:48:00 [facility] Weight 2016-09-20 21:13:00 [facility] BMI Calculated 2016-09-20 21:13:00 [facility] Height 2016-09-20 21:13:00 165.1 cm [facility] Temperature Oral (F) 2016-09-20 21:13:00 98.1 F [facility] Respitory Rate 2016-09-20 21:13:00 [facility] Heart Rate 2016-09-20 21:13:00 [facility] Systolic (mm Hg) 2016-09-20 21:13:00 [facility] Diastolic (mm Hg) 2016-09-20 21:13:00 [facility] Systolic (mm Hg) 2016-06-06 19:15:00 [facility] Diastolic (mm Hg) 2016-06-06 19:15:00 [facility] Respitory Rate 2016-06-06 19:15:00 [facility] Temperature Oral (F) 2016-06-06 19:15:00 98.0 F [facility] Heart Rate 2016-06-06 19:15:00 [facility] Systolic (mm Hg) 2016-06-06 17:19:00 [facility] Diastolic (mm Hg) 2016-06-06 17:19:00 [facility] Rate 2016-06-06 17:19:00 [facility] Respitory Rate 2016-06-06 17:19:00 [facility] Weight 2016-06-06 17:19:00 [facility] Temperature Oral (F) 2016-06-06 17:19:00 98.0 F [facility] Heart Rate 2016-06-06 04:00:00 [facility] Respitory Rate 2016-06-06 04:00:00 [facility] Temperature Oral (F) 2016-06-06 04:00:00 98.1 F [facility] Systolic (mm Hg) 2016-06-06 04:00:00 Joe [facility] Diastolic (mm Hg) 2016-06-06 04:00:00 [facility] Respitory Rate 2016-06-06 02:33:00 [facility] Systolic (mm Hg) 2016-06-06 02:33:00 [facility] Diastolic (mm Hg) 2016-06-06 02:33:00 [facility] Heart Rate 2016-06-06 02:33:00 [facility] Weight 2016-06-06 01:33:00 [facility] Temperature Oral (F) 2016-06-06 01:33:00 98.1 F [facility] Respitory Rate 2016-06-06 01:33:00 [facility] Heart Rate 2016-06-06 01:33:00 [facility] Systolic (mm Hg) 2016-06-06 01:33:00 Joe rial [facility] Diastolic (mm Hg) 2016-06-06 01:33:00 [facility] Heart Rate 2016-05-14 19:00:00 [facility] Respitory Rate 2016-05-14 19:00:00 [facility] Systolic (mm Hg) 2016-05-14 19:00:00 Joe [facility] Diastolic (mm Hg) 2016-05-14 19:00:00 [facility] BMI Calculated 2016-05-14 16:16:00 [facility] Weight 2016-05-14 16:16:00 [facility] Systolic (mm Hg) 2016-05-14 16:16:00 Joe rial [facility] Diastolic (mm Hg) 2016-05-14 16:16:00 [facility] Height 2016-05-14 16:16:00 165.1 cm [facility] Respitory Rate 2016-05-14 16:16:00 [facility] Heart Rate 2016-05-14 16:16:00 [facility] Temperature Oral (F) 2016-05-14 16:16:00 99.0 F [facility] Temperature Oral (F) 2015-04-29 22:15:00 98.6 F [facility] Heart Rate 2015-04-29 22:15:00 [facility] Respitory Rate 2015-04-29 22:15:00 [facility] Systolic (mm Hg) 2015-04-29 22:15:00 Joe [facility] Diastolic (mm Hg) 2015-04-29 22:15:00 [facility] Heart Rate 2015-04-29 18:35:00 [facility] Respitory Rate 2015-04-29 18:35:00 [facility] Temperature Oral (F) 2015-04-29 18:35:00 98.6 F [facility] Systolic (mm Hg) 2015-04-29 18:35:00 Joe [facility] Diastolic (mm Hg) 2015-04-29 18:35:00 [facility] Temperature Oral (F) 2015-04-29 14:31:00 99.6 F [facility] Systolic (mm Hg) 2015-04-29 14:31:00 Joe [facility] Diastolic (mm Hg) 2015-04-29 14:31:00 [facility] Respitory Rate 2015-04-29 14:31:00 [facility] Heart Rate 2015-04-29 14:31:00 [facility] Weight 2015-04-27 21:05:00 [facility] BMI Calculated 2015-04-27 21:05:00 [facility] Height 2015-04-27 21:05:00 165.1 cm [facility] Weight 2015-04-27 15:23:00 [facility] Respitory Rate 2014-12-30 22:10:00 [facility] Systolic (mm Hg) 2014-12-30 22:10:00 Joe [facility] Diastolic (mm Hg) 2014-12-30 22:10:00 [facility] Heart Rate 2014-12-30 22:10:00 [facility] BMI Calculated 2014-12-30 21:24:00 [facility] Weight 2014-12-30 21:24:00 [facility] Temperature Oral (F) 2014-12-30 21:24:00 98.1 F [facility] Respitory Rate 2014-12-30 21:24:00 [facility] Height 2014-12-30 21:24:00 165.1 cm [facility] Heart Rate 2014-12-30 21:24:00 [facility] Systolic (mm Hg) 2014-12-30 21:24:00 Joe [facility] Diastolic (mm Hg) 2014-12-30 21:24:00 [facility] Heart Rate 2014-10-22 17:57:00 [facility] Systolic (mm Hg) 2014-10-22 17:57:00 Joe [facility] Diastolic (mm Hg) 2014-10-22 17:57:00 [facility] Respitory Rate 2014-10-22 17:57:00 [facility] Weight 2014-10-22 16:22:00 [facility] Temperature Oral (F) 2014-10-22 16:22:00 97.7 F [facility] Respitory Rate 2014-10-22 16:22:00 [facility] Heart Rate 2014-10-22 16:22:00 [facility] Systolic (mm Hg) 2014-10-22 16:22:00 Joe [facility] Diastolic (mm Hg) 2014-10-22 16:22:00 [facility] Heart Rate 2014-07-20 06:50:00 [facility] Respitory Rate 2014-07-20 06:50:00 [facility] Temperature Oral (F) 2014-07-20 06:50:00 97.9 F [facility] Systolic (mm Hg) 2014-07-20 06:50:00 Joe [facility] Diastolic (mm Hg) 2014-07-20 06:50:00 [facility] Heart Rate 2014-07-20 04:14:00 [facility] Respitory Rate 2014-07-20 04:14:00 [facility] Temperature Oral (F) 2014-07-20 04:14:00 98.3 F [facility] Systolic (mm Hg) 2014-07-20 04:14:00 [facility] Diastolic (mm Hg) 2014-07-20 04:14:00 [facility] Weight 2014-07-20 04:14:00 [facility] Procedures Procedure Date / Time Performing Source Performed Clinician COMP. METABOLIC PANEL (37990) 2023-03-03 Godwin Reeves iversity of 20:10:00 [facility] CBC WITH DIFF 2023-03-03 Godwin Reeves [place] of 20:10:00 [facility] URINE DRUG (IMMUNOASSAY) - 2023-03-03 Godwin Reeves [facility] rsity of COMPREHENSIVE DRUG SCREEN W/O 19:56:00 [place] [facility] CT HEAD WO CONTRAST 2023-03-03 Godwin Reeves [place] o f 19:25:43 [facility] ASSIGNMENT OF BENEFITS 2023-03-03 Doctor [facility] of 18:56:42 Unassigned, No [facility] CONSENT/REFUSAL FOR DIAGNOSIS AND 2023-03-03 [facility] of TREATMENT 17:52:58 Unassigned, No [facility] MAGNESIUM 2022-10-25 Eh Daugherty of 09:40:00 [facility] COMP. METABOLIC PANEL ([id number]) 2022-10-25 Eh Daugehrty iversity of 09:40:00 [facility] CBC WITH DIFF 2022-10-25 Eh Daugherty of 09:40:00 [facility] LACTIC ACID WHOLE BLOOD 2022-10-24 Eh Daughertyi ty of 21:30:00 [facility] CT ANGIOGRAM ABDOMEN/PELVIS 2022-10-24 Eh Daugherty [facility] ersity of 21:10:00 [facility] ACTIVATED PARTIAL THRMPLAS MARIBELL 2022-10-24 Eh Daugherty niversity of 17:10:00 [facility] LIPASE 2022-10-24 Eh Daugherty [place] of 08:54:00 [facility] MAGNESIUM 2022-10-24 Eh Daugherty [place] of 08:54:00 [facility] TROPONIN I 2022-10-24 [facility] of 08:54:00 [facility] BASIC METABOLIC PANEL (NA, K, CL, 2022-10-24 Eh Daugherty [place] of CO2, GLUCOSE, BUN, CREATININE, CA) 08:54:00 [facility] CBC WITH DIFF 2022-10-24 Eh Daugherty [place] of 08:54:00 [facility] ACTIVATED PARTIAL THRMPLAS MARIBELL 2022-10-24 Carlos Eduardo Drew niversity of 08:54:00 [facility] N-TERMINAL PRO-BNP 2022-10-24 Frazier, [facility] of 08:54:00 [facility] ACTIVATED PARTIAL THRMPLAS MARIBELL 2022-10-24 Eh Daugherty niversity of 01:18:00 [facility] ACTIVATED PARTIAL THRMPLAS MARIBELL 2022-10-23 Eh Daugherty niversity of 18:44:00 [facility] TROPONIN I 2022-10-23 [facility] of 13:44:00 [facility] TRANSTHORACIC ECHO (TTE) COMPLETE 2022-10-23 Brittany [facility] of 13:29:00 [facility] ACTIVATED PARTIAL THRMPLAS MARIBELL 2022-10-23 Carlos Eduardo Drew niversity of 12:01:00 [facility] PHOSPHORUS 2022-10-23 Thelma Carreon [place] of 09:39:00 [facility] URIC ACID 2022-10-23 Thelma Carreon [place] of 09:39:00 [facility] MAGNESIUM 2022-10-23 Brittany [facility] of 09:39:00 [facility] TROPONIN I 2022-10-23 Brittany [facility] of 09:39:00 [facility] THYROID STIMULATING HORMONE 2022-10-23 Brittany leny [facility] ersity of 09:39:00 [facility] COMP. METABOLIC PANEL ([id number]) 2022-10-23 Thelma Carreon Un iversity of 09:39:00 [facility] LIPID PANEL ([id number])(TOTAL 2022-10-23 Thelma Carreoner sity of CHOLESTEROL, TRIGLYCERIDES, HDL) 09:39:00 [facility] SEDIMENTATION RATE 2022-10-23 Thelma Carreon [place] of 09:39:00 [facility] DIFF CONSULT BY PATHOLOGIST 2022-10-23 Thelma Carreon [facility] ersity of 09:39:00 [facility] CBC WITH DIFF 2022-10-23 Brittany, [facility] of 09:39:00 [facility] N-TERMINAL PRO-BNP 2022-10-23 Thelma Carreon [place] of 09:39:00 [facility] PROCALCITONIN 2022-10-23 Brittany, [facility] of 09:39:00 [facility] DIFF CONSULT INTERPRETATION 2022-10-23 Thelma Carreon [facility] ersity of 09:39:00 [facility] ACTIVATED PARTIAL THRMPLAS MARIBELL 2022-10-23 Carlos Eduardo Drew U niversity of 04:10:00 [facility] HB ECG ROUTINE & RHYTHM STRIP 2022-10-23 Carlos Eduardo Drew Un iversity of 02:14:33 [facility] TROPONIN I 2022-10-23 Carlos Eduardo Drew [place] of 01:04:00 [facility] CT ABDOMEN PELVIS W CONTRAST 2022-10-22 Carlos Eduardo Drew Uni versity of 23:24:00 [facility] CT HEAD WO CONTRAST 2022-10-22 Carlos Eduardo Drew [facility] o f 23:14:00 [facility] PROTHROMBIN TIME / INR 2022-10-22 Carlos Eduardo Drew Universit y of 21:54:00 [facility] ACTIVATED PARTIAL THRMPLAS MARIBELL 2022-10-22 Carlos Eduardo Drwe U niversity of 21:54:00 [facility] URINE DRUG (IMMUNOASSAY) - 2022-10-22 Carlos Eduardo Drew Unive rsity of COMPREHENSIVE DRUG SCREEN 21:08:00 [facility] URINALYSIS 2022-10-22 Carlos Eduardo Drew [place] of 21:08:00 [facility] HB ECG ROUTINE & RHYTHM STRIP 2022-10-22 Carlos Eduardo Drew Un iversity of 20:01:07 [facility] LIPASE 2022-10-22 Carlos Eduardo Drew [place] of 19:38:00 [facility] TROPONIN I 2022-10-22 Carlos Eduardo Drew [place] of 19:38:00 [facility] COMP. METABOLIC PANEL ([id number]) 2022-10-22 Carlos Eduardo Drew Un iversity of 19:38:00 [facility] CBC WITH DIFF 2022-10-22 Carlos Eduardo Drew [place] of 19:38:00 [facility] GLYCOSYLATED HEMOGLOBIN (A1C) 2022-10-22 Thelma Carreon Un iversity of 19:38:00 [facility] BASIC METABOLIC PANEL (NA, K, CL, 2022-09-14 Natalie Cortes [place] of CO2, GLUCOSE, BUN, CREATININE, CA) 09:34:00 [facility] CBC WITH DIFF 2022-09-14 Sebastian [facility] of 09:34:00 [facility] US GALL BLADDER 2022-09-13 Eh Daugherty [place] of 16:19:12 [facility] XR ABDOMEN 2 VW 2022-09-13 Gary Orta [place] of 16:18:58 [facility] CBC WITH DIFF 2022-09-13 Gary Orta of 08:23:00 [facility] BASIC METABOLIC PANEL (NA, K, CL, 2022-09-13 Roland Orta [place] of CO2, GLUCOSE, BUN, CREATININE, CA) 08:19:00 [facility] POCT GLUCOSE (AUTOMATED) 2022-09-13 Gary Orta [facility] ity of 08:10:00 [facility] BLOOD CULTURE SCREEN 2022-09-13 Gary Orta [place] of 06:47:00 [facility] LACTIC ACID WHOLE BLOOD 2022-09-13 Pascale De Leon [facility] ity of 05:00:00 [facility] XR CHEST 1 VW 2022-09-13 Pascale De Leon [place] of 04:59:43 [facility] [address] ABDOMEN PELVIS W CONTRAST 2022-09-13 Pascale De Leon Un iversity of 03:14:04 [facility] URINALYSIS 2022-09-13 Pascale De Leon of 02:52:00 [facility] URINE DRUG (IMMUNOASSAY) - 2022-09-13 Moises [facility] ersity of COMPREHENSIVE DRUG SCREEN W/O 02:52:00 [place] [facility] Branch CREATINE KINASE 2022-09-13 Moises Pascale G [place] of 01:36:00 [facility] LIPASE 2022-09-13 Moises [facility] 01:36:00 [facility] MAGNESIUM 2022-09-13 [facility] 01:36:00 [facility] TROPONIN I 2022-09-13 [facility] 01:36:00 [facility] COMP. METABOLIC PANEL ([id number]) 2022-09-13 Pascale De Leon niversity of 01:36:00 [facility] CBC WITH DIFF 2022-09-13 Moises [facility] [place] of 01:36:00 [facility] TROPONIN I 2021-11-12 Earnestine Oneal [place] of 09:12:00 [facility] COMP. METABOLIC PANEL ([id number]) 2021-11-12 Thelma Carreon iversity of 09:12:00 [facility] CBC WITH DIFF 2021-11-12 Thelma Carreon [place] of 09:12:00 [facility] ACUTE CARE VENOUS BLOOD GAS 2021-11-11 Thelma Carreon [facility] ersity of 10:26:00 [facility] PHOSPHORUS 2021-11-11 Thelma Carreon [place] of 10:07:00 [facility] CREATINE KINASE 2021-11-11 [facility] of 10:07:00 [facility] MAGNESIUM 2021-11-11 Brittany, [facility] 10:07:00 [facility] VITAMIN B12, LEVEL 2021-11-11 Thelma Carreon [place] of 10:07:00 [facility] C-REACTIVE PROTEIN 2021-11-11 Thelma Carreon [place] of 10:07:00 [facility] TROPONIN I 2021-11-11 Brittany, [facility] 10:07:00 [facility] COMP. METABOLIC PANEL ([id number]) 2021-11-11 Thelma Carreon iversity of 10:07:00 [facility] SEDIMENTATION RATE 2021-11-11 Brittany [facility] of 10:07:00 [facility] CBC WITH DIFF 2021-11-11 Brittany, [facility] of 10:07:00 [facility] N-TERMINAL PRO-BNP 2021-11-11 Brittany, [facility] of 10:07:00 [facility] VITAMIN D, 25-OH 2021-11-11 Brittany, [facility] of 10:07:00 [facility] PROCALCITONIN 2021-11-11 Brittany, [facility] of 10:07:00 [facility] URINE DRUG (IMMUNOASSAY) - 2021-11-11 Gabriele [facility] ersity of COMPREHENSIVE DRUG SCREEN 01:51:00 [facility] URINALYSIS 2021-11-11 Gabriele [facility] of 01:51:00 [facility] BLOOD CULTURE SCREEN 2021-11-11 Gabriele [facility] of 01:38:00 [facility] LACTIC ACID WHOLE BLOOD 2021-11-11 Mala Suazo [facility] ity of 01:38:00 [facility] HB ECG ROUTINE & RHYTHM STRIP 2021-11-11 Mala Suazo U niversity of 01:03:48 [facility] CT ABDOMEN PELVIS W CONTRAST 2021-11-11 Mala Suazo Un iversity of 00:36:00 [facility] PHOSPHORUS 2021-11-11 Brittany [facility] of 00:02:00 [facility] URIC ACID 2021-11-11 Brittany [facility] of 00:02:00 [facility] AMYLASE 2021-11-11 Brittany [facility] of 00:02:00 [facility] LIPASE 2021-11-11 Gabriele [facility] of 00:02:00 [facility] MAGNESIUM 2021-11-11 Brittany [facility] of 00:02:00 [facility] FERRITIN SERUM 2021-11-11 Brittany [facility] of 00:02:00 [facility] TROPONIN I 2021-11-11 Gabriele [facility] of 00:02:00 [facility] THYROID STIMULATING HORMONE 2021-11-11 Brittany [facility] ersity of 00:02:00 [facility] COMP. METABOLIC PANEL (56373) 2021-11-11 Mala Suazo U niversity of 00:02:00 [facility] LIPID PANEL ([id number])(TOTAL 2021-11-11 Thelma Carreon [facility] staci of CHOLESTEROL, TRIGLYCERIDES, HDL) 00:02:00 [facility] IRON PANEL 2021-11-11 Thelma Carreon [place] of 00:02:00 [facility] CBC WITH DIFF 2021-11-11 Mala Suazo [place] of 00:02:00 [facility] GLYCOSYLATED HEMOGLOBIN (A1C) 2021-11-11 Thelma Carreon Un iversity of 00:02:00 [facility] PROTHROMBIN TIME / INR 2021-11-11 [facility] 00:02:00 [facility] N-TERMINAL PRO-BNP 2021-11-11 Mala Suazo o f 00:02:00 [facility] EMERGENCY DEPARTMENT DOCUMENTS 2021-11-10 Doctor U niversity of 05:01:00 Unassigned, No [facility] Colonoscopy 2019-09-27 Sinai Jerez 20:54:02 Esophagogastroduodenoscopy 2019-09-27 Memor juan ramon Jerez 05:00:00 Tonsillectomy and adenoidectomy [facility] Sol[facility]ario Exploration of abdomen Sinai Jerez Encounters Start End Encounter Admission Attending Care Care Encounter Source Date/Time Date/Time Type Type Clinicians Facility Department ID 2023-03-09 2023-03-09 Letter Neurology [facility] [id number] Univers 00:00:00 00:00:00 (Out) HEALTH [id number] it y of [place] [id number] [facility] [id number] [place] [id number] Branch OFFICE BUILDING 2023-03-03 2023-03-03 Emergency [facility] [id number] Univers 13:14:00 16:57:00 GODWIN dean of [facility] 2023-03-03 2023-03-03 [facility] [id number] Univers 13:14:00 16:57:00 Godwin JUAREZ [id number] i ty of [place] [id number] [facility] [id number] [address] 2022-11-02 2022-11-02 Telephone Jm [facility] [id number] Univers 00:00:00 00:00:00 Earnestine JUAREZ [id number] ity of [facility] [id number] [id number] [place] [id number] [facility] 2022-10-27 2022-10-27 Transition LEONARDO Khan [id number] Univers 00:00:00 00:00:00 of Care Leah CYRY [id number] i ty [id number] [id number] [facility] [address] 2022-10-22 2022-10-25 Inpatient X BRITTANY [facility] KIMMIE [id number] Univers 14:23:00 15:07:00 THELMA dean [facility] 2022-10-22 2022-10-25 [facility] Carlos Eduardo Drew [facility] [id number] Univers 14:23:00 15:07:00 Encounter Thelma Carreon [id number] ity of [id number] [id number] [place] [id number] [place] 2022-09-12 2022-09-14 Outpatient X WILLOW [facility] KIMMIE [id number] Univers 20:21:00 10:43:00 EH dean [facility] 2022-09-12 2022-09-14 Emergency Pascale De Leon [facility] [id number] [id number] Univers 20:21:00 10:43:00 Gary Orta [id number] ity of Eh Daugherty [id number] [facility] [id number] [place] [address] [place] 2022-01-13 2022-01-13 Outpatient [facility] [id number] [place] 04:37:00 04:37:00 HN 0719 da [facility] 2021-11-13 2021-11-13 Telephone [facility] [id number] Univers 00:00:00 00:00:00 Earnestine JUAREZ [id number] ity of [facility] [id number] [id number] [facility] 059 [facility] 2021-11-13 2021-11-13 Transition LEONARDO Vyas [id number] Univers 00:00:00 00:00:00 of Care Radha Wen REAGAN [id number] i ty of [id number] [id number] [facility] [address] 2021-11-10 2021-11-12 Hospital Gabriele Mala [facility] [id number]. [id number] Univers 18:39:00 19:10:00 Encounter Thelma Carreon [id number] ity of Billy [place] [id number] [facility] [id number] [facility] 081 Branch 2021-11-10 2021-11-12 Outpatient X ALEKSANDR [facility] KIMMIE [id number] Univers 18:39:00 19:10:00 BILLY itjessica [facility] 2020-11-27 2020-11-28 Outpatient nullFlavo [facility] [id number] Memoria 20:00:00 04:59:59 r Primary 00 l Care Solitario Gupta 2020-11-27 2020-11-28 [place] [id number] Memoria 20:00:00 04:59:59 r Primary 00 l Care Solitario Gupta 2020-11-27 2020-11-27 Outpatient [id number] 15:00:00 23:59:59 00 2020-11-27 2020-11-27 Outpatient TRELL IE [id number] Memoria 15:00:00 15:00:00 00 l Solitario 2019-01-21 2019-01-24 Inpatient EVGENY GUERRERO TELE [id number] [facility] 17:51:00 13:13:00 CAS [facility] 2018-07-16 2018-07-19 Outpatient E TONNY, [facility] TELE [id number] [facility] 15:24:00 14:47:00 LESTER Med[facility] 2018-06-30 2018-07-01 Outpatient E ELEANOR, [facility] TELE [id number] [facility] 16:03:00 17:15:00 DYLON [facility] 2018-05-17 2018-05-17 Emergency E WILLIAM, [facility] ECC [id number] [facility] 13:38:00 15:27:00 PATI Med[facility] 2018-03-09 2018-03-09 Emergency E CHRIS, [facility] ECC [id number] [facility] 10:29:00 14:00:00 ANDREW Med[facility] 2018-02-09 2018-02-10 Emergency nullFlavo [facility] [id number] Memoria 16:37:00 00:33:00 r Solitario 28 l [place] [place] 2018-02-09 2018-02-10 Emergency nullFlavo [facility] [id number] Mem[facility] 16:37:00 00:33:00 r Solitario 28 l [facility] [place] 2018-02-09 2018-02-09 Outpatient Yael, [place] [id number] 11:37:00 19:33:00 Kiera Adeola Arabella 2018-01-25 2018-01-25 Emergency nullFlavo [facility] [id number] Memoria 14:31:00 19:00:00 r Solitario 27 l [place] [place] 2018-01-25 2018-01-25 Emergency nullFlavo [facility] [id number] Memoria 14:31:00 19:00:00 r Solitario 27 l [place] 2018-01-25 2018-01-25 Outpatient Jose Carreon [facility] [id number] 09:31:00 14:00:00 Si 27 2017-11-01 2017-11-01 Emergency nullFlavo [facility] [id number] [facility] 16:24:00 20:20:00 r Solitario 26 l [place] 2017-11-01 2017-11-01 Emergency nullFlavo [facility] [id number] [facility] 16:24:00 20:20:00 r Solitario 26 l [place] 2017-11-01 2017-11-01 Outpatient Shashank Lopez [facility] [id number] 11:24:00 15:20:00 Y 26 2017-05-17 2017-05-17 Emergency nullFlavo [facility] [id number] [facility] 00:43:00 04:10:00 r Solitario 25 l [place] 2017-05-17 2017-05-17 Emergency nullFlavo [facility] [id number] [facility] 00:43:00 04:10:00 r Libby 25 l [place] 2017-05-16 2017-05-16 Outpatient Zoran, [facility] [id number] 18:43:00 22:10:00 Adelia Valentin 2017-04-09 2017-04-09 Emergency nullFlavo [facility] [id number] [facility] 14:40:00 16:47:00 r Solitario 24 l [place] 2017-04-09 2017-04-09 Emergency nullFlavo [facility] [id number] [facility] 14:40:00 16:47:00 r Solitario 24 l [place] 2017-04-09 2017-04-09 Outpatient Marco Antonio [facility] [id number] 09:40:00 11:47:00 Meng Childress 2017-01-20 2017-01-20 Emergency [facility]Fl[facility] [id number] [facility] 00:27:00 06:50:00 r Libby 23 l [place] [place] 2017-01-20 2017-01-20 Emergency nullFlavo [facility] [id number] Mem[facility] 00:27:00 06:50:00 r Solitario 23 l [place] 2017-01-19 2017-01-20 Outpatient Nolan Arvin [facility] [id number] 19:27:00 01:50:00 2017-01-08 2017-01-08 Emergency nullFlavo [facility] [id number] Mem[facility] 19:26:00 23:14:00 r Libby 22 l [place] 2017-01-08 2017-01-08 [facility] [id number] Memoria 19:26:00 23:14:00 r [facility] [place] [place] 2017-01-08 2017-01-08 Outpatient Yael, [facility] [id number] 14:26:00 18:14:00 Kiera 22 Arabella 2016-09-20 2016-09-21 [facility] [id number] Memoria 21:11:00 00:12:00 r [facility] [facility] [place] [place] 2016-09-20 2016-09-21 [facility] [id number] Memoria 21:11:00 00:12:00 r Solitario [facility] [place] [place] 2016-09-20 2016-09-20 Outpatient ALEXA Cheema S [id number] 16:11:00 19:12:00 Sebastian Tj Browne 2016-06-06 2016-06-06 [facility] [id number] Memoria 17:06:00 19:18:00 r Lib[facility] [place] 2016-06-06 2016-06-06 [facility] [id number] Memoria 17:06:00 19:18:00 r Libby [facility] [place] [place] 2016-06-06 2016-06-06 Outpatient Eh Ruiz [facility] [id number] 11:06:00 13:18:00 Fannie 20 2016-06-06 2016-06-06 [facility] [id number] Memoria 01:11:00 04:18:00 r Lib[facility] [place] [place] 2016-06-06 2016-06-06 [facility] [id number] Memoria 01:11:00 04:18:00 r Libby [facility] [place] 2016-06-05 2016-06-05 Outpatient ALEXA Conley [facility] [id number] 19:11:00 22:18:00 Kiera Shyann Bell 2016-05-14 2016-05-14 [facility] [id number] Memoria 16:10:00 19:00:00 r Libby [facility] [place] [place] 2016-05-14 2016-05-14 [facility] [id number] Memoria 16:10:00 19:00:00 r Libby [facility] l [facility] [place] 2016-05-14 2016-05-14 Outpatient ALEXA Cheema S [id number] 10:10:00 13:00:00 Sebastian Browne 2015-04-27 2015-04-29 OBS [facility] [id number] Memoria 15:15:00 23:30:00 Observatio r Libby 16 l n Patient [facility] 2015-04-27 2015-04-29 OBS [facility] [id number] Memoria 15:15:00 23:30:00 Observatio r Libby 16 l n Patient [facility] [place] 2015-04-27 2015-04-29 Outpatient Betsey, [place] S [id number] 10:15:00 17:30:00 Mustaq Miesha Hathaway 2014-12-30 2014-12-30 EC [facility] [id number] Memoria 21:22:00 22:11:00 Emergency r Lib[facility] 14 l [facility] [place] 2014-12-30 2014-12-30 [facility] [id number] Memoria 21:22:00 22:11:00 Emergency r Libby 14 l [facility] [place] 2014-12-30 2014-12-30 Outpatient LunsfordIram 2.16.840. 2.16.840.1 . [id number] 16:22:00 17:11:00 Julian 1.717605. [id number] 14 3.615.0.1 5.0.101 96 1795-04-27 2014-10-22 EC [facility] [id number] Memoria 16:11:00 17:59:00 Emergency r Libby 13 l [facility] [place] 2014-10-22 2014-10-22 [facility] [id number] Memoria 16:11:00 17:59:00 Emergency r Solitario 13 l [facility] [place] 2014-10-22 2014-10-22 Outpatient Ruiz Eh 2.16.840. 2.16.840. 1. [id number] 11:11:00 12:59:00 Fannie 1.635881. [id number] 13 3.615.0.1 5.0.572 18 8571-01-23 2014-07-20 [facility] [id number] Memoria 04:06:00 06:52:00 Emergency r Libby 12 l [facility] [place] 2014-07-20 2014-07-20 [facility] [id number] [facility] 04:06:00 06:52:00 Emergency r Solitario 12 l [facility] [place] [place] nn 2014-07-19 2014-07-20 Outpatient Davion 2.16.840. 2.16.840.1. 3 [id number] 22:06:00 00:52:00 Vimi 1.902091. [id number] 12 3.615.0.1 5.0.101 01 Results Test Description Test Time Test Comments Results Result Comments Source COMP. METABOLIC PANEL (71924) 2023-03-03 21:10:51 Test Item Value Reference Range Interpretation Comme nts NA (test code = 1605641250) 142 mmol/L 135-145 K (test code = 1640469219) 3.3 mmol/L 3.5-5.0 L CL (test code = 8097911216) 106 mmol/L 98-108 CO2 TOTAL (test code = 7390812046) 29 mmol/L 23-31 AGAP (test code = 4794315168) 7 2-16 BUN (test code = 0808214793) 15 mg/dL 7-23 GLUCOSE (test code = 6016276439) 94 mg/dL 70-110 CREATININE (test code = 0.68 mg/dL 0.50-1.04 2528570764) TOTAL BILI (test code = 0.4 mg/dL 0.1-1.2 9455754786) CALCIUM (test code = 0561773277) 10.1 mg/dL 8.6-10.6 T PROTEIN (test code = 0697238332) 8.3 g/dL 6.3-8.2 H ALBUMIN (test code = 7212534564) 4.8 g/dL 3.5-5.0 ALK PHOS (test code = 0089722325) 52 U/L 34-122 ALTv (test code = 1742-6) 15 U/L 5-35 AST(SGOT) (test code = 1372398164) 27 U/L 13-40 eGFR (test code = 5247736345) 90.9 mL/min/1.73m2 KAIT (test code = KAIT) Association of Glomerular Filtration Rate (GFR) and Staging of Kidney Disease* + +-------- + ------+| GFR (mL/min/1.73 m2) ?| With Kidney Damage ?| ?Without Kidney Damage+ +-- + +| ?>90 ?| ?Stage one ?| ? Normal ?+ +------- + -------+| ?60-89 ?| ?Stage two ?| ? Decreased GFR ? + +-------- + ------+| ?30-59 ?| ?Stage three ?| ? Stage three ? + +-------- + ------+| ?15-29 ?| ?Stage four ? | ? Stage four ?+ +------- + -------+| ?<15 (or dialysis) ? ?| ?Stage five ? | ? Stage five ?+ +------- + -------+ *Each stage assumes the associated GFR [...] or abnormalities in imaging tests). Lab Interpretation (test code = Abnormal 39199-0) [facility] WITH [id number] 21:02:53 Test Item Value Reference Range Interpretation Comments WBC (test code = 9.66 See_Comment [Automated 4572-2) message] The sy stem which generated this result transmitted reference range : 4.30 - 11.10 10*3/?L. The reference range was not used to interpret this result as normal/abnormal . RBC (test code = 4.03 See_Comment [Automated 396-8) message] The sy stem which generated this result transmitted reference range : 3.93 - 5.25 10*6/?L. The reference range was not used to interpret this result as normal/abnormal . HGB (test code = 12.9 g/dL 11.6-15.0 718-7) HCT (test code = 37.4 % 35.7-45.2 4544-3) MCV (test code = 92.8 fL 80.6-95.5 787-2) MCH (test code = 32.0 pg 25.9-32.8 785-6) MCHC (test code = 34.5 g/dL 31.6-35.1 786-4) RDW-SD (test code = 44.0 fL 39.0-49.9 78889-0) RDW-CV (test code = 12.9 % 12.0-15.5 788-0) PLT (test code = 309 See_Comment [Automated 777-3) message] The sy stem which generated this result transmitted reference range : 166 - 358 10*3/ ?L. The reference r chuck was not used to interpret this result as normal/abnormal . MPV (test code = 9.3 fL 9.5-12.9 L 40572-1) NRBC/100 WBC (test 0.0 See_Comment [Automat ed code = 9030473786) message] The system which generated this result transmitted reference range : 0.0 - 10.0 /100 WBCs. The refer ence range was not u sed to interpret th is result as normal/abnormal . NRBC x10^3 (test code See_Comment [Auto mated = 0045231309) message] The s ystem which generated this result transmitted reference range : 10*3/?L. The reference range was not used to interpret this result as normal/abnormal . GRAN MAT (NEUT) % 79.0 % (test code = 770-8) IMM GRAN % (test code 0.20 % = 1660654198) LYMPH % (test code = 17.0 % 736-9) MONO % (test code = 3.4 % 5905-5) EOS % (test code = 0.0 % 713-8) BASO % (test code = 0.4 % 706-2) GRAN MAT x10^3(ANC) 7.63 10*3/uL 1.88-7.09 H (test code = 7479843272) IMM GRAN x10^3 (test 0.00-0.06 code = 5866334779) LYMPH x10^3 (test code 1.64 10*3/uL 1.32-3.29 = 731-0) MONO x10^3 (test code 0.33 10*3/uL 0.33-0.92 = 742-7) EOS x10^3 (test code = 0.03-0.39 L 711-2) BASO x10^3 (test code 0.04 10*3/uL 0.01-0.07 = 704-7) Lab Interpretation Abnormal (test code = 86233-4) [facility] [id number] 21:38:51 Test Item Value Reference Range Interpretation Comments LACTIC ACID (test code = 1.46 mmol/L 0.50-2.20 4049961868) Lab Interpretation (test code = Normal 51749-0) [facility] 17:38:02 Test Item Value Reference Range Interpretation Comments APTT Patient (test 78 See_Comment H [Automat ed code = 3173-2) message] The system which generated this result transmitted reference range : 23 - 38 Seconds . The reference range was not used to interpr et this result as normal/abnormal . KAIT (test code = KAIT) The [facility] patient population mean normal value for aPTT is 30 seconds. Lab Interpretation Abnormal (test code = 39019-0) [facility]23[facility]28 19:23:42 Test Item Value Reference Range Interpretation Comments APTT Patient (test 54 See_Comment H [Automat ed code = 3173-2) message] The system which generated this result transmitted reference range : 23 - 38 Seconds . The reference range was not used to interpr et this result as normal/abnormal . KAIT (test code = KAIT) The [facility] patient population mean normal value for aPTT is 30 seconds. Lab Interpretation Abnormal (test code = 37142-1) [facility] [id number] 14:27:43 Test Item Value Reference Range Interpretation Comments TROPONIN I (test code = 0.092 ng/mL <=0.034 H 1904203103) KAIT (test code = KAIT) Reference (Normal) [...] biotin. Lab Interpretation Abnormal (test code = 26524-8) [facility]for use with Heparin Infusion)2022-10-23 12:43:51 Test Item Value Reference Range Interpretation Comments APTT Patient (test 113 See_Comment HH [Automat ed code = 3173-2) message] The system which generated this result transmitted reference range : 23 - 38 Seconds . The reference range was not used to interpr et this result as normal/abnormal . KAIT (test code = KAIT) The [facility] patient population mean normal value for aPTT is 30 seconds. Lab Interpretation Abnormal (test code = 02917-5) [facility]OS[facility]EM[facility]GLOBIN (A1C)2022-10-23 06:12:05 Test Item Value Reference Range Interpretation Comments HGB A1C (test code = 5.1 % 4.0-5.7 4548-4) KAIT (test code = KAIT) Reference RangesNormal: <5.7%Prediabetes: 5.7 - 6.4%Diabetes: > 6.5% Lab Interpretation (test Normal code = 17018-6) [facility] [id number] 01:53:45 Test Item Value Reference Range Interpretation Comments TROPONIN I (test code = 0.171 ng/mL <=0.034 H 7134797324) KAIT (test code = KAIT) Reference (Normal) [...] biotin. Lab Interpretation Abnormal (test code = 64720-3) [facility]2023-[facility]-27 22:50:19 Test Item Value Reference Range Interpretation Comments APTT Patient (test 24 See_Comment [Automat ed code = 3173-2) message] The system which generated this result transmitted reference range : 23 - 38 Seconds . The reference range was not used to interpr et this result as normal/abnormal . KAIT (test code = KAIT) The [facility] patient population mean normal value for aPTT is 30 seconds. Lab Interpretation Normal (test code = 92447-3) [facility]ano[facility]thrombin Time (PT) / [id number] 22:48:41 Test Item Value Reference Range Interpretation Comments PROTIME PATIENT (test 13.8 See_Comment [Auto mated message] code = 5964-2) The system wh ich generated this result transmitted ref erence range: 12.0 - 1 4.7 Seconds. The re ference range was not u sed to interpret this result as normal/abnor mal. INR (test code = 6301-6) 1.1 Nor mal INR <1.1; Warfarin Therap eutic range 2.0 to 3. 0 or 2.5 to 3.5, dep ending upon the indica tions. Lab Interpretation (test Normal code = 80567-6) [facility] [id number] 20:20:38 Test Item Value Reference Range Interpretation Comments TROPONIN I (test code = 0.069 ng/mL <=0.034 H 2154235049) KAIT (test code = KAIT) Reference (Normal) [...] biotin. Lab Interpretation Abnormal (test code = 58630-3) [facility] MET[facility]OLIC PANEL (99329)2022-10-22 20:10:18 Test Item Value Reference Range Interpretation Comments NA (test code = 139 mmol/L 135-145 1175812742) K (test code = 3.4 mmol/L 3.5-5.0 L 2396746475) CL (test code = 106 mmol/L 98-108 1374821514) CO2 TOTAL (test code = 24 mmol/L 23-31 2935895027) AGAP (test code = 9 2-16 3209487053) BUN (test code = 14 mg/dL 7-23 9305540708) GLUCOSE (test code = 130 mg/dL 70-110 H 7536723378) CREATININE (test code = 0.64 mg/dL 0.50-1.04 8134692995) TOTAL BILI (test code = 0.7 mg/dL 0.1-1.9 5776795715) CALCIUM (test code = 9.4 mg/dL 8.6-10.6 9678427968) T PROTEIN (test code = 7.0 g/dL 6.3-8.2 1361984983) ALBUMIN (test code = 4.5 g/dL 3.5-5.0 9334195517) ALK PHOS (test code = 54 U/L 34-122 5390413037) ALTv (test code = 28 U/L 5-35 1742-6) AST(SGOT) (test code = 30 U/L 13-40 6649562324) eGFR (test code = 97.4 mL/min/1.73m2 9149422068) KAIT (test code = KAIT) Association of [...] tests). Lab Interpretation Abnormal (test code = 45371-6) [facility]20[facility] 20:08:55 Test Item Value Reference Range Interpretation Comments LIPASE (test code = 8878790527) 25 U/L 0-220 Lab Interpretation (test code = Normal 99425-4) [facility]anoCB WITH [id number] 20:00:16 Test Item Value Reference Range Interpretation Comments WBC (test code = 15.82 See_Comment H [Automated 6690-2) message] The system which generated this result transmit mirna reference range : 4.30 - 11.10 10*3/?L. The reference range was not used to interpret this result as normal/abnormal . RBC (test code = 3.59 See_Comment L [Automated 279-8) message] The system which generated this result transmit mirna reference range : 3.93 - 5.25 10*6/?L. The reference range was not used to interpret this result as normal/abnormal . HGB (test code = 11.4 g/dL 11.6-15.0 L 718-7) HCT (test code = 32.2 % 35.7-45.2 L 4544-3) MCV (test code = 89.7 fL 80.6-95.5 787-2) MCH (test code = 31.8 pg 25.9-32.8 785-6) MCHC (test code = 35.4 g/dL 31.6-35.1 H 786-4) RDW-SD (test code = 38.1 fL 39.0-49.9 L 06289-2) RDW-CV (test code = 11.9 % 12.0-15.5 L 788-0) PLT (test code = 249 See_Comment [Automated 777-3) message] The system which generated this result transmit mirna reference range : 166 - 358 10*3/ ?L. The reference range was not u sed to interpret th is result as normal/abnormal . MPV (test code = 9.2 fL 9.5-12.9 L 12609-0) NRBC/100 WBC (test 0.0 See_Comment [Automat ed code = 8047376022) message] The system which generated this result transmit mirna reference range : 0.0 - 10.0 /100 WBCs. The reference range was not used to interpret this result as normal/abnormal . NRBC x10^3 (test code See_Comment [Auto mated = 6262044723) message] The system which generated this result transmit mirna reference range : 10*3/?L. The reference range was not used to interpret this result as normal/abnormal . GRAN MAT (NEUT) % 91.4 % (test code = 770-8) IMM GRAN % (test code 0.50 % = 9693716095) LYMPH % (test code = 4.7 % 736-9) MONO % (test code = 3.2 % 5905-5) EOS % (test code = 0.0 % 713-8) BASO % (test code = 0.2 % 706-2) GRAN MAT x10^3(ANC) 14.46 10*3/uL 1.88-7.09 H (test code = 3058803508) IMM GRAN x10^3 (test 0.08 10*3/uL 0.00-0.06 H code = 5801863078) LYMPH x10^3 (test code 0.74 10*3/uL 1.32-3.29 L = 731-0) MONO x10^3 (test code 0.51 10*3/uL 0.33-0.92 = 742-7) EOS x10^3 (test code = 0.03-0.39 L 711-2) BASO x10^3 (test code 0.03 10*3/uL 0.01-0.07 = 704-7) Lab Interpretation Abnormal (test code = 38318-7) [facility] GLUCOSE (AUTOMATED)2022-09-13 08:21:08 Test Item Value Reference Range Interpretation Comments POCT GLU (test code = 9760922526) 144 mg/dL 70-110 H Lab Interpretation (test code = Abnormal 01736-0) [facility] [id number] 05:49:46 Test Item Value Reference Range Interpretation Comments TROPONIN I (test code = 0.007 ng/mL <=0.034 8425691130) KAIT (test code = KAIT) Reference (Normal) [...] biotin. Lab Interpretation Normal (test code = 69422-4) [facility]CREAT[facility] [id number] 02:57:37 Test Item Value Reference Range Interpretation Comments CK (test code = 1888311736) 307 U/L 33-194 H Lab Interpretation (test code = Abnormal 04875-0) [facility]OL[facility] PAN[facility] (71731)2022-09-13 02:44:59 Test Item Value Reference Range Interpretation Comments NA (test code = 144 mmol/L 135-145 3537348331) K (test code = 3.9 mmol/L 3.5-5.0 6775732033) CL (test code = 107 mmol/L 98-108 1699838422) CO2 TOTAL (test code = 18 mmol/L 23-31 L 2258930693) AGAP (test code = 19 2-16 H 8542448272) BUN (test code = 24 mg/dL 7-23 H 0369083309) GLUCOSE (test code = 165 mg/dL 70-110 H 8348472140) CREATININE (test code = 0.90 mg/dL 0.50-1.04 0489532981) TOTAL BILI (test code = 0.8 mg/dL 0.1-1.2 2512060556) CALCIUM (test code = 11.0 mg/dL 8.6-10.6 H 3862257258) T PROTEIN (test code = 9.4 g/dL 6.3-8.2 H 6726036483) ALBUMIN (test code = 5.6 g/dL 3.5-5.0 H 5913383834) ALK PHOS (test code = 74 U/L 34-122 5132504827) ALTv (test code = 59 U/L 5-35 H 1742-6) AST(SGOT) (test code = 53 U/L 13-40 H 0072672731) eGFR (test code = 65.8 mL/min/1.73m2 5687019999) KAIT (test code = KAIT) Association of [...] tests). Lab Interpretation Abnormal (test code = 66635-5) [facility] 02:15:35 Test Item Value Reference Range Interpretation Comments LIPASE (test code = 6939839420) 44 U/L 0-220 Lab Interpretation (test code = Normal 95680-0) [facility]19 02:15:35 Test Item Value Reference Range Interpretation Comments MAGNESIUM (test code = 8276341916) 1.6 mg/dL 1.7-2.4 L Lab Interpretation (test code = Abnormal 55412-8) [facility] WITH [id number] 01:53:00 Test Item Value Reference Range Interpretation Comments WBC (test code = 22.49 See_Comment H [Automated 8590-2) message] The system which generated this result transmit mirna reference range : 4.30 - 11.10 10*3/?L. The reference range was not used to interpret this result as normal/abnormal . RBC (test code = 4.44 See_Comment [Automated 789-8) message] The system which generated this result transmit mirna reference range : 3.93 - 5.25 10*6/?L. The reference range was not used to interpret this result as normal/abnormal . HGB (test code = 14.2 g/dL 11.6-15.0 718-7) HCT (test code = 39.8 % 35.7-45.2 4544-3) MCV (test code = 89.6 fL 80.6-95.5 787-2) MCH (test code = 32.0 pg 25.9-32.8 785-6) MCHC (test code = 35.7 g/dL 31.6-35.1 H 786-4) RDW-SD (test code = 40.0 fL 39.0-49.9 48888-0) RDW-CV (test code = 12.1 % 12.0-15.5 788-0) PLT (test code = 310 See_Comment [Automated 777-3) message] The system which generated this result transmit mirna reference range : 166 - 358 10*3/ ?L. The reference range was not u sed to interpret th is result as normal/abnormal . MPV (test code = 9.7 fL 9.5-12.9 64838-2) NRBC/100 WBC (test 0.0 See_Comment [Automat ed code = 2680131585) message] The system which generated this result transmit mirna reference range : 0.0 - 10.0 /100 WBCs. The reference range was not used to interpret this result as normal/abnormal . NRBC x10^3 (test code See_Comment [Auto mated = 8642740988) message] The system which generated this result transmit mirna reference range : 10*3/?L. The reference range was not used to interpret this result as normal/abnormal . GRAN MAT (NEUT) % 91.5 % (test code = 770-8) IMM GRAN % (test code 0.80 % = 6893074900) LYMPH % (test code = 3.9 % 736-9) MONO % (test code = 3.6 % 5905-5) EOS % (test code = 0.0 % 713-8) BASO % (test code = 0.2 % 706-2) GRAN MAT x10^3(ANC) 20.58 10*3/uL 1.88-7.09 H (test code = 4781092217) IMM GRAN x10^3 (test 0.19 10*3/uL 0.00-0.06 H code = 6133100697) LYMPH x10^3 (test code 0.87 10*3/uL 1.32-3.29 L = 731-0) MONO x10^3 (test code 0.80 10*3/uL 0.33-0.92 = 742-7) EOS x10^3 (test code = 0.03-0.39 L 711-2) BASO x10^3 (test code 0.05 10*3/uL 0.01-0.07 = 704-7) Lab Interpretation Abnormal (test code = 04704-8) [facility] [id number] 12:51:42 Test Item Value Reference Interpretation Comments Range TROPONIN I (test 0.015 ng/mL See_Comment [Automated code = 6381286296) message] The system which generated this result [...] biotin. Lab Interpretation Normal (test code = 25397-1) [facility]. METABOLIC PANEL (67044)2021-11-12 09:42:31 Test Item Value Reference Range Interpretation Comments NA (test code = 139 mmol/L 135-145 4651226764) K (test code = 4.0 mmol/L 3.5-5.0 2356922202) CL (test code = 111 mmol/L 98-108 H 4582035872) CO2 TOTAL (test code = 21 mmol/L 23-31 L 4285594412) AGAP (test code = 2-16 9264165128) BUN (test code = 16 mg/dL 7-23 7141981208) GLUCOSE (test code = 95 mg/dL 70-110 2984012037) CREATININE (test code = 0.70 mg/dL 0.50-1.04 9962692501) TOTAL BILI (test code = 0.8 mg/dL 0.1-1.0 2749097453) CALCIUM (test code = 8.7 mg/dL 8.6-10.6 6735473851) T PROTEIN (test code = 6.7 g/dL 6.3-8.2 5283208287) ALBUMIN (test code = 3.9 g/dL 3.5-5.0 1925887302) ALK PHOS (test code = 38 U/L 34-122 5016707873) ALTv (test code = 16 U/L 5-35 1742-6) AST(SGOT) (test code = 35 U/L 13-40 9750048928) eGFR (test code = mL/min/1.73m2 4938866169) KAIT (test code = KAIT) Association of [...] tests). Lab Interpretation Abnormal (test code = 24029-6) [facility] WITH [id number] 09:28:04 Test Item Value Reference Range Interpretation Comments WBC (test code = See_Comment H [Automated 6290-2) message] The sy stem which generated this [...] RDW-SD (test code = 47.8 fL 39.0-49.9 96977-1) RDW-CV (test code = 13.4 % 12.0-15.5 788-0) PLT (test code = See_Comment [Automated 777-3) message] The sy stem which generated this result transmitted reference range : 166 - 358 10*3/ ?L. The reference r chuck was not used to interpret this result as normal/abnormal . MPV (test code = 10.4 fL 9.5-12.9 79208-2) NRBC/100 WBC (test See_Comment [Automat ed code = 5557829416) message] The system which generated this result transmitted reference range : 0.0 - 10.0 /100 WBCs. The refer ence range was not u sed to interpret th is result as normal/abnormal . NRBC x10^3 (test code <0.01 See_Comment [Auto mated = 5566060081) message] The s ystem which generated this result transmitted reference range : 10*3/?L. The reference range was not used to interpret this result as normal/abnormal . GRAN MAT (NEUT) % 72.1 % (test code = 770-8) IMM GRAN % (test code 0.40 % = 5744091207) LYMPH % (test code = 20.7 % 736-9) MONO % (test code = 6.1 % 5905-5) EOS % (test code = 0.2 % 713-8) BASO % (test code = 0.5 % 706-2) GRAN MAT x10^3(ANC) 8.21 10*3/uL 1.88-7.09 H (test code = 5379912843) IMM GRAN x10^3 (test 0.04 10*3/uL 0.00-0.06 code = 8043500595) LYMPH x10^3 (test code 2.35 10*3/uL 1.32-3.29 = 731-0) MONO x10^3 (test code 0.69 10*3/uL 0.33-0.92 = 742-7) EOS x10^3 (test code = <0.03 0.03-0.39 L 711-2) BASO x10^3 (test code 0.06 10*3/uL 0.01-0.07 = 704-7) Lab Interpretation Abnormal (test code = 03665-6) [facility], [id number] 20:43:01 Test Item Value Reference Range Interpretation Comments VIT B12 (test code = 232 pg/mL 240-930 L 8561264302) KAIT (test code = KAIT) Biotin has been reported to cause a positive bias, interpret results relative to patient's use of biotin. Lab Interpretation (test Abnormal code = 43825-6) [facility]-REACT[facility] [id number] 17:44:36 Test Item Value Reference Range Interpretation Comments CRP (test code = 5593198512) 0.6 mg/dL <0.8 Lab Interpretation (test code = Normal 23810-4) [facility]2022-05-17 17:03:15 Test Item Value Reference Range Interpretation Comments Procalcitonin (test 0.02 ng/mL <0.07 code = 8290985962) KAIT (test code = KAIT) INTERPRETATION OF [...] lung abscess/empyema. For further information please refer to:[email or web address] Lab Interpretation Normal (test code = 25055-1) [facility], [id number] 16:33:21 Test Item Value Reference Range Interpretation Comments VIT D 25OH (test code = 34 ng/mL 25-80 51841-3) KAIT (test code = KAIT) Deficiency: <20 ng/mLInsufficiency : 20-24 ng/mLOptimal: 25-80 ng/mL Lab Interpretation (test Normal code = 51608-2) [facility]SEDIMENTATION [id number] 12:48:11 Test Item Value Reference Range Interpretation Comments ESR (test code = See_Comment H [Automated message] [id number]) The system [employer] generated this result transmitted ref erence range: 0 - 20 m m/HR. The reference r chuck was not used to interpret this result as normal/abnor mal. Lab Interpretation (test Abnormal code = 41396-5) [facility]OP[facility] [id number] 11:17:52 Test Item Value Reference Interpretation Comments Range TROPONIN I (test 0.038 ng/mL See_Comment H [Automated code = 5382240782) message] The system which generated this result [...] biotin. Lab Interpretation Abnormal (test code = 88153-9) [id number] 11:14:30 Test Item Value Reference Range Interpretation Comments NT-proBNP (test code 2560 pg/mL See_Comment H [Autom ated = 5814162338) message] The system which generated this result transmitted reference range : <=125. The reference range was not used to interpret this result as normal/abnormal . KAIT (test code = KAIT) Biotin has been reported to cause a negative bias, interpret results relative to patient's use of biotin. Lab Interpretation Abnormal (test code = 52066-8) [facility] 11:12:09 Test Item Value Reference Range Interpretation Comments MAGNESIUM (test code = 7102101001) 1.7 mg/dL 1.7-2.4 Lab Interpretation (test code = Normal 36744-9) [facility] METABOLIC PANEL (34589)2021-11-11 11:11:49 Test Item Value Reference Range Interpretation Comments NA (test code = 141 mmol/L 135-145 6660247005) K (test code = 3.4 mmol/L 3.5-5.0 L 2285724376) CL (test code = 110 mmol/L 98-108 H 4933964111) CO2 TOTAL (test code = 18 mmol/L 23-31 L 8019080402) AGAP (test code = 2-16 6045912433) BUN (test code = 11 mg/dL 7-23 8987192572) GLUCOSE (test code = 132 mg/dL 70-110 H 2755392456) CREATININE (test code = 0.69 mg/dL 0.50-1.04 0097110106) TOTAL BILI (test code = 0.5 mg/dL 0.1-1.8 7206148894) CALCIUM (test code = 8.8 mg/dL 8.6-10.6 4009445750) T PROTEIN (test code = 7.2 g/dL 6.3-8.2 8360193682) ALBUMIN (test code = 4.3 g/dL 3.5-5.0 8112673401) ALK PHOS (test code = 67 U/L 34-122 0004857125) ALTv (test code = 15 U/L 5-35 1742-6) AST(SGOT) (test code = 28 U/L 13-40 4360335856) eGFR (test code = mL/min/1.73m2 4423817367) KAIT (test code = KAIT) Association of [...] tests). Lab Interpretation Abnormal (test code = 90354-7) [facility]20[facility]-17 11:11:49 Test Item Value Reference Range Interpretation Comments PHOSPHORUS (test code = 2594518522) 3.1 mg/dL 2.5-5.0 Lab Interpretation (test code = Normal 78213-0) [facility]anoCREATINE [id number] 11:11:28 Test Item Value Reference Range Interpretation Comments CK (test code = 1089762898) 90 U/L 33-194 Lab Interpretation (test code = Normal 05825-4) [facility]CBC WITH [id number] 10:46:26 Test Item Value Reference Range Interpretation Comments WBC (test code = See_Comment H [Automated 3990-2) message] The system which generated this result [...] RDW-SD (test code = 46.9 fL 39.0-49.9 10983-9) RDW-CV (test code = 13.1 % 12.0-15.5 788-0) PLT (test code = See_Comment [Automated 777-3) message] The system which generated this result transmit mirna reference range : 166 - 358 10*3/ ?L. The reference range was not u sed to interpret th is result as normal/abnormal . MPV (test code = 9.8 fL 9.5-12.9 97675-8) NRBC/100 WBC (test See_Comment [Automat ed code = 6295697237) message] The system which generated this result transmit mirna reference range : 0.0 - 10.0 /100 WBCs. The reference range was not used to interpret this result as normal/abnormal . NRBC x10^3 (test code <0.01 See_Comment [Auto mated = 0293839240) message] The system which generated this result transmit mirna reference range : 10*3/?L. The reference range was not used to interpret this result as normal/abnormal . GRAN MAT (NEUT) % 90.4 % (test code = 770-8) IMM GRAN % (test code 0.50 % = 8601619185) LYMPH % (test code = 7.5 % 736-9) MONO % (test code = 1.5 % 5905-5) EOS % (test code = 0.0 % 713-8) BASO % (test code = 0.1 % 706-2) GRAN MAT x10^3(ANC) 11.71 10*3/uL 1.88-7.09 H (test code = 9401493799) IMM GRAN x10^3 (test 0.06 10*3/uL 0.00-0.06 code = 1406608416) LYMPH x10^3 (test code 0.97 10*3/uL 1.32-3.29 L = 731-0) MONO x10^3 (test code 0.19 10*3/uL 0.33-0.92 L = 742-7) EOS x10^3 (test code = <0.03 0.03-0.39 L 711-2) BASO x10^3 (test code <0.03 0.01-0.07 = 704-7) Lab Interpretation Abnormal (test code = 31020-2) [facility]anoFERRITIN [id number] 05:52:39 Test Item Value Reference Range Interpretation Comments FERRITIN (test code = 17.4 ng/mL 11.0-264.0 9282327804) KAIT (test code = KAIT) Biotin has been reported to cause a negative bias, interpret results relative to patient's use of biotin. Lab Interpretation (test Normal code = 52896-4) [facility]anoTHYROID STIMULATING [id number] 05:48:37 Test Item Value Reference Range Interpretation Comments TSH (test code = See_Comment [Automated message] 0997983232) The system [employer] generated this result transmitted ref erence range: 0.45 - 4 .70 mIU/L. The refe rence range was not u sed to interpret this result as normal/abnor mal. Lab Interpretation (test Normal code = 52949-5) [facility]anoIRON [id number] 05:27:51 Test Item Value Reference Range Interpretation Comments IRON (test code = 0083596191) 73 ug/dL 50-160 TIBC (test code = 7524499832) 401 ug/dL 250-410 % FE SAT (test code = 5685784621) 18 % 20-50 L Lab Interpretation (test code = Abnormal 79273-9) [facility]2022-[facility]-17 05:27:51 Test Item Value Reference Range Interpretation Comments MAGNESIUM (test code = 4750498821) 2.1 mg/dL 1.7-2.4 Lab Interpretation (test code = Normal 51642-2) [facility]anoAMYLASE2022-[facility]-17 05:27:51 Test Item Value Reference Range Interpretation Comments IRAM (test code = 9849143971) 53 U/L 35-110 Lab Interpretation (test code = Normal 68776-4) [facility]PH[facility]2022-05-17 05:27:51 Test Item Value Reference Range Interpretation Comments PHOSPHORUS (test code = 2870288315) 3.3 mg/dL 2.5-5.0 Lab Interpretation (test code = Normal 59601-5) [facility]anoURIC [id number] 05:27:36 Test Item Value Reference Range Interpretation Comments URIC ACID (test code = 9853877028) 3.9 mg/dL 2.9-6.0 Lab Interpretation (test code = Normal 83151-5) [facility]anoGLYCOSYLATED HEMOGLOBIN (A1C)2021-11-11 05:18:51 Test Item Value Reference Range Interpretation Comments HGB A1C (test code = 5.0 % 4.0-5.7 4548-4) KAIT (test code = KAIT) Reference RangesNormal: <5.7%Prediabetes: 5.7 - 6.4%Diabetes: > 6.5% Lab Interpretation (test Normal code = 33684-4) [facility] PlanoLIPID PANEL (66075)(TOTAL CHOLESTEROL, TRIGLYCERIDES, HDL)2021-11-11 05:15:11 Test Item Value Reference Range Interpretation Comments CHOL (test code = 205 mg/dL 120-200 H 0185624567) HDL (test code = 49 mg/dL >50 L 0421932674) HDLC RATIO (test code = See_Comment [Au tomated message] 9869710597) The system [employer] generated this result transmit mirna reference range : <=4.5. The refe rence range was not u sed to interpret th is result as normal/abnormal . TRIG (test code = 122 mg/dL 30-170 1753802371) LDL CHOL (test code = 132 mg/dL See_Comment [Auto mated message] 20782-8) The system [employer] generated this result transmit mirna reference range : <=160. The refe rence range was not u sed to interpret th is result as normal/abnormal . VLDL (test code = 24 mg/dL 5-60 8584256920) Lab Interpretation (test Abnormal code = 49033-7) [facility]anoTROP[facility]IN [id number] 01:39:48 Test Item Value Reference Interpretation Comments Range TROPONIN I (test 0.006 ng/mL See_Comment [Automated code = 8388248763) message] The system which generated this result [...] biotin. Lab Interpretation Normal (test code = 01891-7) [facility] [id number] 01:36:26 Test Item Value Reference Range Interpretation Comments NT-proBNP (test code 247 pg/mL See_Comment H [Autom ated = 4922155066) message] The system which generated this result transmitted reference range : <=125. The reference range was not used to interpret this result as normal/abnormal . KAIT (test code = KAIT) Biotin has been reported to cause a negative bias, interpret results relative to patient's use of biotin. Lab Interpretation Abnormal (test code = 81038-8) [facility]anoPROTHROMBIN TIME / [id number] 00:37:00 Test Item Value Reference Range Interpretation Comments PROTIME PATIENT (test See_Comment [Auto mated message] code = 5964-2) The system wh ich generated this result transmitted ref erence range: 12.0 - 1 4.7 Seconds. The re ference range was not u sed to interpret this result as normal/abnor mal. INR (test code = 6301-6) Nor mal INR <1.1; Warfarin Therap eutic range 2.0 to 3. 0 or 2.5 to 3.5, dep ending upon the indica tions. Lab Interpretation (test Normal code = 96429-1) [facility]anoCOMP[facility] METABOLIC PANEL (49514)2021-11-11 00:34:19 Test Item Value Reference Range Interpretation Comments NA (test code = 140 mmol/L 135-145 1330132483) K (test code = 3.8 mmol/L 3.5-5.0 8116857384) CL (test code = 109 mmol/L 98-108 H 2574703454) CO2 TOTAL (test code = 21 mmol/L 23-31 L 2409145261) AGAP (test code = 2-16 4067867407) BUN (test code = 15 mg/dL 7-23 8880642280) GLUCOSE (test code = 131 mg/dL 70-110 H 8293258338) CREATININE (test code = 0.77 mg/dL 0.50-1.04 6904859167) TOTAL BILI (test code = 0.5 mg/dL 0.1-1.0 0492223210) CALCIUM (test code = 9.1 mg/dL 8.6-10.6 2481491479) T PROTEIN (test code = 7.1 g/dL 6.3-8.2 1443570250) ALBUMIN (test code = 4.4 g/dL 3.5-5.0 6875092638) ALK PHOS (test code = 75 U/L 34-122 7004200721) ALTv (test code = 16 U/L 5-35 1742-6) AST(SGOT) (test code = 31 U/L 13-40 7742911386) eGFR (test code = mL/min/1.73m2 3347285870) KAIT (test code = KAIT) Association of [...] tests). Lab Interpretation Abnormal (test code = 19815-1) [facility] 00:33:39 Test Item Value Reference Range Interpretation Comments LIPASE (test code = 2716127275) 43 U/L 0-220 Lab Interpretation (test code = Normal 37080-5) [facility]anoCB WITH [id number] 00:29:00 Test Item Value Reference Range Interpretation [...] RDW-SD (test code = 46.3 fL 39.0-49.9 67871-3) RDW-CV (test code = 13.0 % 12.0-15.5 788-0) PLT (test code = See_Comment [Automated 777-3) message] The system which generated this result transmit mirna reference range : 166 - 358 10*3/ ?L. The reference range was not u sed to interpret th is result as normal/abnormal . MPV (test code = 9.9 fL 9.5-12.9 82214-6) NRBC/100 WBC (test See_Comment [Automat ed code = 6346815317) message] The system which generated this result transmit mirna reference range : 0.0 - 10.0 /100 WBCs. The reference range was not used to interpret this result as normal/abnormal . NRBC x10^3 (test code <0.01 See_Comment [Auto mated = 9884290365) message] The system which generated this result transmit mirna reference range : 10*3/?L. The reference range was not used to interpret this result as normal/abnormal . GRAN MAT (NEUT) % 88.0 % (test code = 770-8) IMM GRAN % (test code 0.40 % = 9999583277) LYMPH % (test code = 8.1 % 736-9) MONO % (test code = 2.3 % 5905-5) EOS % (test code = 0.9 % 713-8) BASO % (test code = 0.3 % 706-2) GRAN MAT x10^3(ANC) 14.85 10*3/uL 1.88-7.09 H (test code = 5558447912) IMM GRAN x10^3 (test 0.06 10*3/uL 0.00-0.06 code = 1654029203) LYMPH x10^3 (test code 1.36 10*3/uL 1.32-3.29 = 731-0) MONO x10^3 (test code 0.38 10*3/uL 0.33-0.92 = 742-7) EOS x10^3 (test code = 0.15 10*3/uL 0.03-0.39 711-2) BASO x10^3 (test code 0.05 10*3/uL 0.01-0.07 = 704-7) Lab Interpretation Abnormal (test code = 78576-3) [id number] Test Item Value Reference Range [...] 09D) 8.3 mg/dL 8.3-9.5 CBC (INCLUDES AUTOMATED DIFFERENTIAL)*[id number] 05:53:00 Test Item Value Reference Range Interpretation [...] 2019-01-23 06:18:00 Test Item Value Reference Range Interpretation [...] 48A) 2.0 mg/dL 1.8-2.4 CBC (INCLUDES AUTOMATED DIFFERENTIAL)*[id number] 05:59:00 Test Item Value Reference Range Interpretation [...] A84) <0.015 ng/mL 0.000-0.045 CBC (INCLUDES AUTOMATED DIFFERENTIAL)*[id number] 06:06:00 Test Item Value Reference Range Interpretation [...] 09D) 8.7 mg/dL 8.3-9.5 CBC (INCLUDES AUTOMATED DIFFERENTIAL)*[id number] 06:00:00 Test Item Value Reference Range Interpretation [...] (test code = NORMAL WRBCMOR) URINALYSIS WITH [id number] 21:55:00 Test Item Value Reference Range Interpretation [...] code = USPERM) /HPF NONE DRUGS OF [id number] 21:55:00 Test Item Value Reference Range Interpretation [...] 2000 ng/mL CT ABDOMEN AND PELVIS WITH [id number] 21:03:20Exam: CT abdomen and pelvis with contrast.Location: [...] CONTRAST 2019-01-20 21:02:21Chest CT with contrast.Location Code: A3FUHIHUYO HISTORY: chest pain, vomitingCOMPARISON: NoneTechnique: Helical CT [...] patientsize, and/or utilization of iterative reconstruction technique.OCCULT [id number] 20:16:00 Test Item Value Reference Range Interpretation Comments Direct Exam (test code POSITIVE FOR OCCULT = DE1) BLOOD [id number] 20:03:00 Test Item Value Reference Range Interpretation Comments D-DIMER (test code = <200 ng/mL D-DU 0-234 DDI) D-DIMER COMMENT (test *Level to rule out code = DDCOM) DVT or PE: <235 ng/mL D-DU* PRO TIME AND [id number] 20:03:00 Test Item Value Reference Range Interpretation [...] or LMW Heparin. Order Code is ANTI-XA [id number] 20:02:00 Test Item Value Reference Range Interpretation Comments CPK (test code = 32A) 140 IU/L 26-192 COMPREHENSIVE METABOLIC [id number] 20:02:00 Test Item Value Reference Range Interpretation [...] code = 31A) 18 IU/L <=78 TROPONIN [id number] 19:55:00 Test Item Value Reference Range Interpretation Comments TROPONIN I (test code = A84) <0.015 ng/mL 0.000-0.045 XR CHEST 1 VIEW [id number] 19:40:49Exam: Chest portable erectLocation: H 12History: chest [...] code = MDIFF) NO NO COMPREHENSIVE METABOLIC [id number] 04:10:00 Test Item Value Reference Range Interpretation [...] (test code = RBCMOR) NORMAL BASIC METABOLIC [id number] 05:47:00 Test Item Value Reference Range Interpretation [...] code = 09D) 8.3 mg/dL 8.3-9.5 CARDIAC [id number] 02:45:00 Test Item Value Reference Range Interpretation Comments TROPONIN I (test code = A84) 0.059 ng/mL 0.000-0.045 H CARDIAC [id number] 18:36:00 Test Item Value Reference Range Interpretation Comments TROPONIN I (test code = A84) 0.059 ng/mL 0.000-0.[address] ABDOMEN AND PELVIS WITH [id number] 15:14:52EXAM: CT abdomen and pelvis with contrastLocation: [...] iterative reconstruction technique.DLP: 1534 mGy-cm CTDI 28 [id number] 13:05:00 Test Item Value Reference Range Interpretation Comments MAGNESIUM (test code = 48A) 1.9 mg/dL 1.8-2.4 CT HEAD W/O [id number] 12:54:16EXAM: CT head without contrastLocation: M7HEMWUIUVOG: NoneINDICATION: HeadacheTECHNIQUE: Axial images of the brain [...] technique.DLP: 854 mGy-cm CTDI 45 mGyDRUGS OF [id number] 12:54:00 Test Item Value Reference Range Interpretation [...] 200 ng/mL Opiates 2000 ng/mL URINALYSIS WITH [id number] 12:46:00 Test Item Value Reference Range Interpretation [...] (test code = USPERM) /HPF NONE URINE [id number] 12:39:00 Test Item Value Reference Range Interpretation Comments PREG UR (test code = PGU) NEGATIVE NEGATIVE COMPREHENSIVE METABOLIC [id number] 12:37:00 Test Item Value Reference Range Interpretation [...] = 31A) 17 IU/L <=78 AMYLASE AND [id number] 12:34:00 Test Item Value Reference Range Interpretation Comments AMYLASE (test code = 10A) 53 U/L 28-100 LIPASE (test code = 60A) 45 IU/L 73-393 L TROPONIN [id number] 12:33:00 Test Item Value Reference Range Interpretation Comments TROPONIN I (test code = A84) 0.087 ng/mL 0.000-0.045 H [id number] 12:26:00 Test Item Value Reference Range Interpretation [...] code = RBCMOR) NORMAL DIRECT STREP GROUP [id number] 07:45:00 Test Item Value Reference Range Interpretation Comments Culture Observations NO BETA HEMOLYTIC (test code = COB1) STREPTOCOCCUS ISOLATED Direct Exam (test code NO STREPTOCOCCUS GROUP = DE1) A ANTIGEN DETECTED THYROID PANEL/SCREEN (TSH)2018-07-01 05:50:00 Test Item Value Reference Range Interpretation Comments TSH (test code = A57) 0.453 uIU/mL 0.358-3.740 CARDIAC [id number] 05:16:00 Test Item Value Reference Range Interpretation Comments TROPONIN I (test code = A84) <0.015 ng/mL 0.000-0.045 BASIC METABOLIC [id number] 04:55:00 Test Item Value Reference Range Interpretation [...] MORPH (test code = RBCMOR) NORMAL CARDIAC [id number] 21:20:00 Test Item Value Reference Range Interpretation Comments TROPONIN I (test code = A84) <0.015 ng/mL 0.000-0.045 URINE [id number] 17:31:00 Test Item Value Reference Range Interpretation Comments PREG UR (test code = PGU) NEGATIVE NEGATIVE U/S [id number] 13:56:23EXAMINATION: U/S GALLBLADDER.LOCATION: D4.HISTORY: Right upper quadrant [...] 06/30/[address] ABDOMEN AND PELVIS WITH [id number] 12:09:32EXAMINATION: CT ABDOMEN AND PELVIS WITH CONTRAST.LOCATION: [...] consultation and colonoscopy.Bilateral nephrolithiasis.Atherosclerotic vascular calcifications.Arterial Blood [id number] 12:05:00 Test Item Value Reference Range Interpretation [...] FO2Hb (test code = 94.4 % 94.0-100.0 AF8NUFP) FCOHb (test code = 0.6 % 0.0-3.0 FCOHBRT) FMetHb (test code = 1.1 % 0.2-0.6 H FMETHBRT) ABGTEMP (test code = * Temp Corrected Values* ABGTEMP) ABGTEMP (test code = 37.0 ?C ABGTEMP.) pH (T) (test code = 7.498 7.350-7.450 H PHTEMP) pCO2 (T) (test code = 31.4 mmHg 35.0-45.0 L GAP3YYDQ) pO2 (T) (test code = 81.7 mmHg 80.0-110.0 AS6FYAL) Device (test code = ROOM AIR DEVICE) [...] COMMENT (test code = CO) URINALYSIS WITH [id number] 11:20:00 Test Item Value Reference Range Interpretation [...] code = USPERM) /HPF NONE BRAIN NATRIURETIC [id number] 10:57:00 Test Item Value Reference Range Interpretation Comments proBNP (test code = PBNP) 436 pg/mL 0-125 H COMPREHENSIVE METABOLIC [id number] 10:56:00 Test Item Value Reference Range Interpretation [...] (test code = 31A) 19 IU/L <=78 [id number] 10:51:00 Test Item Value Reference Range Interpretation Comments CPK (test code = 32A) 129 IU/L 26-192 AMYLASE AND [id number] 10:51:00 Test Item Value Reference Range Interpretation Comments AMYLASE (test code = 10A) 23 U/L 28-100 L LIPASE (test code = 60A) 51 IU/L 73-393 L TROPONIN [id number] 10:50:00 Test Item Value Reference Range Interpretation Comments TROPONIN I (test code = A84) <0.015 ng/mL 0.000-0.045 PRO TIME AND [id number] 10:47:00 Test Item Value Reference Range Interpretation [...] or LMW Heparin. Order Code is ANTI-XA [id number] 10:47:00 Test Item Value Reference Range Interpretation Comments D-DIMER (test code = 209 ng/mL D-DU 0-234 DDI) D-DIMER COMMENT (test *Level to rule out code = DDCOM) DVT or PE: <235 ng/mL D-DU* DIRECT INFLUENZA A AND B [id number] 10:45:00 Test Item Value Reference Range Interpretation Comments Direct Exam (test PRESUMPTIVE NEGATIVE FOR code = DE1) THE PRESENCE OF INFLUENZA ANTIGEN XR CHEST 2 [id number] 10:41:59Exam: Chest x-ray 2 viewsHISTORY: Persistent coughLocation: E7XZQKCTRL:The heart size is normal and lung holcomb [...] RBC MORPH (test code = RBCMOR) NORMAL [id number] 14:47:00 Test Item Value Reference Range Interpretation [...] NEGATIVE NEGATIVE XR FOOT RIGHT COMPLETE 3 [id number] 14:27:27Right foot, 3 viewsLocation Code: U3PFQNYJGK HISTORY: [id number]: PainCOMMENTS: AP, lateral, and oblique views of the right foot demonstrate noacute fracture or malalignment. Dorsal soft tissue swelling noted.IMPRESSION: No acute osseous radiographic abnormality. Dorsal soft tissueswelling.CT ABDOMEN AND PELVIS WITH [id number] 13:38:45CT abdomen and pelvis with contrastLocation Code: W2DTMZCMKO HISTORY: Abdominal painCOMPARISON: 02/10/2018Technique: Helical CT of [...] fluid collection or free air.CT HEAD W/O [id number] 13:19:29CT brain without contrast.Location code: L6HRISILKP HISTORY: R51: HEADACHE COMPARISON: None.TECHNIQUE: Routine unenhanced [...] aerated. IMPRESSION: No acute intracranial abnormality.AMYLASE AND [id number] 13:05:00 Test Item Value Reference Range Interpretation Comments AMYLASE (test code = 10A) 36 U/L 28-100 LIPASE (test code = 60A) 67 IU/L 73-393 L COMPREHENSIVE METABOLIC [id number] 13:05:00 Test Item Value Reference Range Interpretation [...] (test code = 31A) 14 IU/L <=78 [id number] 13:05:00 Test Item Value Reference Range Interpretation Comments MAGNESIUM (test code = 48A) 2.1 mg/dL 1.8-2.4 SERUM [id number] 12:53:00 Test Item Value Reference Range Interpretation Comments PREG SRM (test code = PGS) NEGATIVE NEGATIVE URINALYSIS WITH [id number] 12:45:00 Test Item Value Reference Range Interpretation [...] = USPERM) /HPF NONE PRO TIME AND [id number] 12:43:00 Test Item Value Reference Range Interpretation [...] MORPH (test code = RBCMOR) NORMAL BLOOD [id number] 07:45:00 Test Item Value Reference Range Interpretation Comments Culture Observations (test NO GROWTH AFTER 5 code = COB1) DAYS URINE [id number] 07:24:00 Test Item Value Reference Range Interpretation [...] RBC MORPH (test code = RBCMOR) NORMAL [id number] 06:25:00 Test Item Value Reference Range Interpretation Comments MAGNESIUM (test code = 48A) 1.5 mg/dL 1.8-2.4 L BASIC METABOLIC [id number] 06:16:00 Test Item Value Reference Range Interpretation [...] 8.3-9.5 L NM HIDA SCAN W/ EJECTION [id number] 18:10:25HIDA scanLocation code: V7Ocmffcdz history: Right upper quadrant painComments: Following the [...] minutes.Impression:1. No evidence of acute cholecystitis.BASIC METABOLIC [id number] 04:35:00 Test Item Value Reference Range Interpretation [...] MORPH (test code = RBCMOR) NORMAL LACTIC [id number] 17:33:00 Test Item Value Reference Range Interpretation Comments LACTIC ACD (test code = LA) 1.8 mmol/L 0.4-2.0 U/S [id number] 15:35:17LOCATION: P96XMPLYPG: 47-year-old female with nausea and vomiting.COMMENT:Sonographic imaging [...] appearance of the abdomen is unremarkable.BASIC METABOLIC [id number] 07:27:00 Test Item Value Reference Range Interpretation [...] (test code = RBCMOR) NORMAL URINALYSIS WITH [id number] 23:20:00 Test Item Value Reference Range Interpretation [...] USPERM) /HPF NONE XR CHEST 1 VIEW [id number] 16:08:04HISTORY: DyspneaLocation code: M8Kdfedcjvkp 10 February 2018FINDINGS: Frontal view of the chest demonstrates normal cardiomediastinalsilhouette. The trachea is midline. Minimal bibasilar atelectasis. Thelungsare otherwise clear. There is no effusion or pneumothorax. The bones areintact.IMPRESSION: Minimal bibasilar atelectasis.CLOSTRIDIUM DIFFICILE [id number] 11:11:00 Test Item Value Reference Range Interpretation Comments Direct Exam (test NO CLOSTRIDIUM DIFFICILE code = DE1) TOXIN A/B DETECTED CBC WITH MANUAL [id number] 07:39:00 Test Item Value Reference Range Interpretation [...] lts code = PLTMOR) um) BASIC METABOLIC [id number] 06:01:00 Test Item Value Reference Range Interpretation [...] 09D) 8.8 mg/dL 8.3-9.5 CBC WITH MANUAL [id number] 07:18:00 Test Item Value Reference Range Interpretation [...] = 1+ NONE A MICRO) BASIC METABOLIC [id number] 05:48:00 Test Item Value Reference Range Interpretation [...] 09D) 8.8 mg/dL 8.3-9.5 MRI BRAIN W/O [id number] 18:15:41LOCATION: A1EXAM: MRI BRAIN W/O CONTRASTINDICATION: R51: [...] acute stroke. No acute abnormality.XR CENTRAL LINE [id number] 16:06:23EXAMINATION: NON- TUNNELED CENTRAL VENOUS CATHETER PLACEMENT.LOCATION: D4.HISTORY: The her central venous accessSEDATION: The patient did not require conscious sedation for the procedure.ANTIBIOTICS: None. Not indicated.TECHNIQUE: The risks, benefits, and alternatives were discussed and informedconsentwas obtained. Prior to beginning the procedure, [place] Protocol wasused to confirm the patient's identity [...] at the bedside according to standard hospitalprotocol.U/S [id number] 16:06:23EXAMINATION: NON-TUNNELED CENTRAL VENOUS CATHETER PLACEMENT.LOCATION: D4.HISTORY: The her central venous accessSEDATION: The patient did not require conscious sedation for the procedure.ANTIBIOTICS: None. Not indicated.TECHNIQUE: The risks, benefits, and alternatives were discussed and informedconsentwas obtained. Prior to beginning the procedure, [place] Protocol wasused to confirm the patient's identity [...] hospitalprotocol.CT ABDOMEN AND PELVIS WITH AND WITHOUT [id number] 15:59:28 Exam: CT abdomen and pelvis with and without contrast.Location: D4.History: [id number]: Abdominal [id number]: VomitingTechnique: Unenhanced and enhanced spiral slices were [...] enteritis.3. Nephrolithiasis.4. Small, fixed hiatalhernia.XR CHEST 1 [id number] 08:54:41Portable AP chest, 1 viewLocation Code: [id number] HISTORY: Chest painCOMPARISON: NoneCOMMENT: There is mild prominence of the central pulmonary vasculature and interstitium.Mild atelectasis is presentwithin the lung bases. There is no lobarconsolidation or effusion. IMPRESSION: Mild central congestive changes and bibasilar atelectasis. XR ABDOMEN 1 VIEW [id number] 08:54:16Abdomen, 1 viewLocation Code: C1Rgzcyiuy history: Lower abdominal painComments: The bowel gas pattern is unremarkable. There is no visualizedabnormal calcification. The visualized osseous structures are intact.Impression: No acute radiographic abnormality. GLUCOMETER GLUCOSE- LAB USE [id number] 07:50:00 Test Item Value Reference Range Interpretation Comments GLUCOMETER (test code 157 mg/dL 70-100 H CLEANE D METERMeter ID: = GMG) [id number] tor: 9410 СВЕТЛАНА MONTANO CBC WITH MANUAL [id number] 06:57:00 Test Item Value Reference Range Interpretation [...] code = 1+ NONE A MACRO) TROPONIN [id number] 05:58:00 Test Item Value Reference Range Interpretation Comments TROPONIN I (test code = A84) <0.015 ng/mL 0.000-0.045 COMPREHENSIVE METABOLIC [id number] 05:44:00 Test Item Value Reference Range Interpretation [...] 13 IU/L <=78 GLUCOMETER GLUCOSE- LAB USE [id number] 01:52:00 Test Item Value Reference Range Interpretation Comments GLUCOMETER (test code = 110 mg/dL 70-100 H Mete r ID: GMG) [id number] tor: 5512 GAIL [address]ILL[address] Y TROPONIN [id number] 00:02:00 Test Item Value Reference Range Interpretation Comments TROPONIN I (test code = A84) <0.015 ng/mL 0.000-0.045 CARDIAC [id number] 20:58:00 Test Item Value Reference Range Interpretation Comments Troponin-I (test code no gt See_Comment [Auto mated message] The = Troponin-I) system which g enerated this result transmit mirna reference range : <=0.40. The reference r chuck was not used to interpr et this result as zahra l/abnormal. [facility]annCARDIAC [id number] 20:58:00 Test Item Value Reference Range Interpretation Comments CK MB (test code = CK MB) no gt 0.5-3.[address] [facility] [id number] 20:58:00 Test Item Value Reference Range Interpretation Comments Total CK (test code = Total CK) 32 12-[address] [facility] [id number] 20:58:00 Test Item Value Reference Range Interpretation Comments CK MB Index (test no gt See_Comment [Automate d message] The code = CK MB Index) system w [facility] generated this result transmit mirna reference range : <=2.5. The reference range was not used to interpr et this result as zahra l/abnormal. [facility] [id number] 20:58:00 Test Item Value Reference Range Interpretation Comments Magnesium Lvl (test code = Magnesium 1.7 1.8-2.4 Lvl) [facility] HermannCHEM [id number] 20:58:00 Test Item Value Reference Range Interpretation Comments eGFR (test code = eGFR) [address] [facility] [id number] 20:58:00 Test Item Value Reference Range Interpretation Comments AGAP (test code = AGAP) 14.6 10.0-20.0 [facility] CellarsannCHEM [id number] 20:58:00 Test Item Value Reference Range Interpretation Comments Bili Total (test code = Bili Total) 0.5 0.2-1.3 [facility]2018-08-15 20:58:00 Test Item Value Reference Range Interpretation Comments B/C Ratio (test code = B/C Ratio) 40 1 6-25 [facility]2018-08-15 20:58:00 Test Item Value Reference Range Interpretation Comments Globulin (test code = Globulin) 4.8 2.7-4.2 [facility]2018-08-15 20:58:00 Test Item Value Reference Range Interpretation Comments A/G Ratio (test code = A/G Ratio) 0.5 1 0.7-1.6 [facility]2018-08-15 20:58:00 Test Item Value Reference Range Interpretation Comments AST (test code = AST) 7 See_Comment [Auto mated message] The system which ge nerated this result transmit mirna reference range : <=37. The reference range was not used to interpr et this result as zahra l/abnormal. [facility]2018-08-15 20:58:00 Test Item Value Reference Range Interpretation Comments Alk Phos (test code = Alk Phos) 79 39-136 [facility]2018-08-15 20:58:00 Test Item Value Reference Range Interpretation Comments Calcium Lvl (test code = Calcium Lvl) 8.8 8.5-10.5 [facility]2018-08-15 20:58:00 Test Item Value Reference Range Interpretation Comments Total Protein (test code = Total 7.3 6.4-8.4 Protein) [facility]2018-08-15 20:58:00 Test Item Value Reference Range Interpretation Comments Albumin Lvl (test code = Albumin Lvl) 2.5 3.5-5.0 [facility]2018-08-15 20:58:00 Test Item Value Reference Range Interpretation Comments ALT (test code = ALT) 13 See_Comment [Auto mated message] The system which ge nerated this result transmit mirna reference range : <=65. The reference range was not used to interpr et this result as zahra l/abnormal. [facility]2018-08-15 20:58:00 Test Item Value Reference Range Interpretation Comments Potassium Lvl (test code = Potassium 3.6 3.5-5.1 Lvl) [facility]2018-08-15 20:58:00 Test Item Value Reference Range Interpretation Comments Chloride Lvl (test code = Chloride Lvl) 113 95-109 [facility]2018-08-15 20:58:00 Test Item Value Reference Range Interpretation Comments CO2 (test code = CO2) 14 24-32 [facility]2018-08-15 20:58:00 Test Item Value Reference Range Interpretation Comments Glucose Lvl (test code = Glucose Lvl) 87 70-99 [facility]2018-08-15 20:58:00 Test Item Value Reference Range Interpretation Comments Sodium Lvl (test code = Sodium Lvl) 138 135-145 [facility]2018-08-15 20:58:00 Test Item Value Reference Range Interpretation Comments BUN (test code = BUN) 37 7-22 [facility]2018-08-15 20:58:00 Test Item Value Reference Range Interpretation Comments Creatinine Lvl (test code = Creatinine 0.93 0.50-1.40 Lvl) [facility]2018-08-15 20:58:00 Test Item Value Reference Range Interpretation Comments Lipase Lvl (test code = Lipase Lvl) 489 50-393 [facility]SlbfqlkECFXVUTBJKLTG8694-26-59 20:58:00 Test Item Value Reference Range Interpretation Comments S Preg (test code = S Negative *NA*(02/09/18 Preg) 3:58 PM) [facility] HospitalVwqvvblWHFNHIYIGX8238-87-43 20:58:00 Test Item Value Reference Range Interpretation Comments MCHC (test code = MCHC) 33.8 32.0-36.0 [facility] HospitalGgvakslMSXYYDEBRI9912-70-94 20:58:00 Test Item Value Reference Range Interpretation Comments RDW (test code = RDW) 14.3 11.5-14.5 [facility] HospitalNkstjwuOGDQUEELLG9693-26-01 20:58:00 Test Item Value Reference Range Interpretation Comments MCH (test code = MCH) 32.1 pg 27.0-31.0 [facility] HospitalJdeaajaZLDVDYTZUP4361-74-14 20:58:00 Test Item Value Reference Range Interpretation Comments Hct (test code = Hct) 33.1 36.0-48.0 [facility] HospitalMtmvxzoNEUHOWZJRJ6548-54-00 20:58:00 Test Item Value Reference Range Interpretation Comments WBC (test code = WBC) 15.9 3.7-10.4 [facility] HospitalYffnsbdXYHLWNKQGM8917-22-88 20:58:00 Test Item Value Reference Range Interpretation Comments Hgb (test code = Hgb) 11.2 12.0-16.0 [facility] HospitalFzjsdqpCPBRBTLHJI5840-62-99 20:58:00 Test Item Value Reference Range Interpretation Comments MCV (test code = MCV) 94.8 80.0-98.0 [facility] HospitalFaykrjrLUFEOZSSLG9316-65-43 20:58:00 Test Item Value Reference Range Interpretation Comments RBC (test code = RBC) 3.49 4.20-5.40 [facility] HospitalAcdmpawLMZTBRLNUP4922-06-68 20:58:00 Test Item Value Reference Range Interpretation Comments MPV (test code = MPV) 7.7 7.4-10.4 [facility] HospitalAqxjdaoCBQDSCBPRL6507-68-92 20:58:00 Test Item Value Reference Range Interpretation Comments Platelet (test code = Platelet) 226 133-450 [facility] HospitalKprwtjhQGTQBTRTUS8016-53-81 20:58:00 Test Item Value Reference Range Interpretation Comments Monocytes # (test code 0.3 See_Comment [Aut omated message] The = Monocytes #) system which generated this result tra nsmitted reference range : <=0.8. The reference r chuck was not used to int erpret this result as normal/abnormal . [facility] HospitalMfehfabWFPJJKUTVO4011-81-20 20:58:00 Test Item Value Reference Range Interpretation Comments Neutrophils # (test code = Neutrophils 13.2 1.5-8.1 #) [facility] HospitalXudnfrqOXTRTQULYF2866-16-55 20:58:00 Test Item Value Reference Range Interpretation Comments Lymphocytes # (test code = Lymphocytes 2.4 1.0-5.5 #) [facility] HospitalTpreyjcYRFFSFGZXG7978-74-31 20:58:00 Test Item Value Reference Range Interpretation Comments Hypochrom (test code = 1+ (02/09/18 3:58 PM) Hypochrom) [facility] HospitalWcxwiriXOSSHEGPFW0445-97-03 20:58:00 Test Item Value Reference Range Interpretation Comments RBC Morph (test code = Normal (02/09/18 3:58 RBC Morph) PM) [facility] HospitalSnxrafuTUDHTTFTKD2319-14-55 20:58:00 Test Item Value Reference Range Interpretation Comments Tot Cell Ct (test code = Tot Cell Ct) [address] [facility]GoectkkQQIQCKCMBA6939-51-42 20:58:00 Test Item Value Reference Range Interpretation Comments Monocytes (test code = Monocytes) 2.0 2.0-12.[address] [facility]MjdrydzEGQKBOEFSJ3998-88-78 20:58:00 Test Item Value Reference Range Interpretation Comments Bands (test code = 1.0 See_Comment [Automat ed message] The Bands) system which ge nerated this result transmit mirna reference range : <=11.0. The reference r chuck was not used to interpr et this result as zahra l/abnormal. [facility]landPbpexsxTBOPJSSCOP7465-94-63 20:58:00 Test Item Value Reference Range Interpretation Comments Segs (test code = Segs) 82.0 45.0-75.0 [facility] PearlandEufdbzlBSDDBBKMMF3091-23-18 20:58:00 Test Item Value Reference Range Interpretation Comments Lymphocytes (test code = Lymphocytes) 15.0 20.0-40.[address] [facility]MunvuvlQJFGQYICMP4547-30-06 20:58:00 Test Item Value Reference Range Interpretation Comments Plt Morph (test code = Normal (02/09/18 3:58 Plt Morph) PM) [facility] [id number] 20:58:00 Test Item Value Reference Range Interpretation Comments Troponin-I (test code = Troponin-I) no gt <=0.[address] [facility] [id number] 20:58:00 Test Item Value Reference Range Interpretation Comments CK MB (test code = CK MB) no gt 0.5-3.6 [facility] [id number] 20:58:00 Test Item Value Reference Range Interpretation Comments Total CK (test code = Total CK) 32 12-[address] [facility] [id number] 20:58:00 Test Item Value Reference Range Interpretation Comments CK MB Index (test code = CK MB Index) no gt <=2.[address] [facility]annGimado [id number] 20:58:00 Test Item Value Reference Range Interpretation Comments Magnesium Lvl (test code = Magnesium 1.7 1.8-2.4 Lvl) [facility] [id number] 20:58:00 Test Item Value Reference Range Interpretation Comments eGFR (test code = eGFR) 73 [facility]2018-08-15 20:58:00 Test Item Value Reference Range Interpretation Comments AGAP (test code = AGAP) 14.6 10.0-20.0 [facility]2018-08-15 20:58:00 Test Item Value Reference Range Interpretation Comments Bili Total (test code = Bili Total) 0.5 0.2-1.3 [facility]2018-08-15 20:58:00 Test Item Value Reference Range Interpretation Comments B/C Ratio (test code = B/C Ratio) 40 1 6-25 [facility]2018-08-15 20:58:00 Test Item Value Reference Range Interpretation Comments Globulin (test code = Globulin) 4.8 2.7-4.2 [facility]2018-08-15 20:58:00 Test Item Value Reference Range Interpretation Comments A/G Ratio (test code = A/G Ratio) 0.5 1 0.7-1.6 [facility]2018-08-15 20:58:00 Test Item Value Reference Range Interpretation Comments AST (test code = AST) 7 <=37 [facility]2018-08-15 20:58:00 Test Item Value Reference Range Interpretation Comments Alk Phos (test code = Alk Phos) 79 39-136 [facility]2018-08-15 20:58:00 Test Item Value Reference Range Interpretation Comments Calcium Lvl (test code = Calcium Lvl) 8.8 8.5-10.5 [facility]2018-08-15 20:58:00 Test Item Value Reference Range Interpretation Comments Total Protein (test code = Total 7.3 6.4-8.4 Protein) [facility]2018-08-15 20:58:00 Test Item Value Reference Range Interpretation Comments Albumin Lvl (test code = Albumin Lvl) 2.5 3.5-5.0 [facility]2018-08-15 20:58:00 Test Item Value Reference Range Interpretation Comments ALT (test code = ALT) 13 <=65 [facility]2018-08-15 20:58:00 Test Item Value Reference Range Interpretation Comments Potassium Lvl (test code = Potassium 3.6 3.5-5.1 Lvl) [facility]2018-08-15 20:58:00 Test Item Value Reference Range Interpretation Comments Chloride Lvl (test code = Chloride Lvl) 113 95-109 [facility]2018-08-15 20:58:00 Test Item Value Reference Range Interpretation Comments CO2 (test code = CO2) 14 24-32 [facility]2018-08-15 20:58:00 Test Item Value Reference Range Interpretation Comments Glucose Lvl (test code = Glucose Lvl) 87 70-99 [facility]2018-08-15 20:58:00 Test Item Value Reference Range Interpretation Comments Sodium Lvl (test code = Sodium Lvl) 138 135-145 [facility]2018-08-15 20:58:00 Test Item Value Reference Range Interpretation Comments BUN (test code = BUN) 37 7-22 [facility]2018-08-15 20:58:00 Test Item Value Reference Range Interpretation Comments Creatinine Lvl (test code = Creatinine 0.93 0.50-1.40 Lvl) [facility]2018-08-15 20:58:00 Test Item Value Reference Range Interpretation Comments Lipase Lvl (test code = Lipase Lvl) 786 14-393 [facility] CenterUhyfwvxIRPNNSUDXBUIR0103-47-38 20:58:00 Test Item Value Reference Range Interpretation Comments S Preg (test code = S Negative *NA*(02/09/18 Preg) 3:58 PM) [facility] HospitalLbcyvajIQXFHCGFXW7178-13-99 20:58:00 Test Item Value Reference Range Interpretation Comments MCHC (test code = MCHC) 33.8 32.0-36.0 [facility] HospitalMhbbwvqSFFWJLQXWB0501-33-01 20:58:00 Test Item Value Reference Range Interpretation Comments RDW (test code = RDW) 14.3 11.5-14.5 [facility] HospitalQjyivyjHFQLYYANCW0583-17-60 20:58:00 Test Item Value Reference Range Interpretation Comments MCH (test code = MCH) 32.1 pg 27.0-31.0 [facility] HospitalAgisqcfOJNOXWYIYU8932-27-82 20:58:00 Test Item Value Reference Range Interpretation Comments Hct (test code = Hct) 33.1 36.0-48.0 [facility] HospitalQyxmibrVLRVKRCUZR3480-27-80 20:58:00 Test Item Value Reference Range Interpretation Comments WBC (test code = WBC) 15.9 3.7-10.4 [facility] HospitalUizvmfyMBCFXHMQFP5011-24-32 20:58:00 Test Item Value Reference Range Interpretation Comments Hgb (test code = Hgb) 11.2 12.0-16.0 [facility] HospitalWrdllglRXBWPQGZWR2894-12-62 20:58:00 Test Item Value Reference Range Interpretation Comments MCV (test code = MCV) 94.8 80.0-98.0 [facility] HospitalPzsjmlpUSXJIAJHLU9169-27-09 20:58:00 Test Item Value Reference Range Interpretation Comments RBC (test code = RBC) 3.49 4.20-5.40 [facility] HospitalHvqlzbjUOWIVZKPLH6990-00-99 20:58:00 Test Item Value Reference Range Interpretation Comments MPV (test code = MPV) 7.7 7.4-10.4 [facility] HospitalCbrfyudARJNCXRJNR9375-92-38 20:58:00 Test Item Value Reference Range Interpretation Comments Platelet (test code = Platelet) 226 133-450 [facility] HospitalPculeqfEAKAKSKMPR9727-40-83 20:58:00 Test Item Value Reference Range Interpretation Comments Monocytes # (test code = Monocytes #) 0.3 <=0.8 [facility] HospitalQfrhnmjLPHMJGVQCI8580-17-97 20:58:00 Test Item Value Reference Range Interpretation Comments Neutrophils # (test code = Neutrophils 13.2 1.5-8.1 #) [facility] HospitalLtnrarkZJILYTPFTK9990-66-35 20:58:00 Test Item Value Reference Range Interpretation Comments Lymphocytes # (test code = Lymphocytes 2.4 1.0-5.5 #) [facility] HospitalCrfqecdTDJXYZKNVH6182-45-18 20:58:00 Test Item Value Reference Range Interpretation Comments Hypochrom (test code = 1+ (02/09/18 3:58 PM) Hypochrom) [facility] HospitalSzpombsVFVCJJEEBD1917-27-92 20:58:00 Test Item Value Reference Range Interpretation Comments RBC Morph (test code = Normal (02/09/18 3:58 RBC Morph) PM) [facility] HospitalLblgvntPDVBWZFHAF8462-25-06 20:58:00 Test Item Value Reference Range Interpretation Comments Tot Cell Ct (test code = Tot Cell Ct) 100 1 [facility] HospitalJeunqzlJQCWIUEGYY5785-19-19 20:58:00 Test Item Value Reference Range Interpretation Comments Monocytes (test code = Monocytes) 2.0 2.0-12.[address] [facility]DcqonvqCLGHFFPWAJ6124-07-40 20:58:00 Test Item Value Reference Range Interpretation Comments Bands (test code = Bands) 1.[address] [facility] HospitalKjamsgnDGSDLCWTXA9044-68-81 20:58:00 Test Item Value Reference Range Interpretation Comments Segs (test code = Segs) 82.0 45.0-75.[address] [facility] HospitalNhnxitzEDJPHPYXAG9589-21-56 20:58:00 Test Item Value Reference Range Interpretation Comments Lymphocytes (test code = Lymphocytes) 15.0 20.0-40.[address] [facility] HospitalSvlpijjRXRRANJCSE1082-65-14 20:58:00 Test Item Value Reference Range Interpretation Comments Plt Morph (test code = Normal (02/09/18 3:58 Plt Morph) PM) [facility] HospitalNanosolarAC [id number] 20:58:00 Test Item Value Reference Range Interpretation Comments Troponin-I (test code no gt See_Comment [Auto mated message] The = Troponin-I) system which g enerated this result transmit mirna reference range : <=0.40. The reference r chuck was not used to interpr et this result as zahra l/abnormal. [facility] HospitalNanosolarAC [id number] 20:58:00 Test Item Value Reference Range Interpretation Comments CK MB (test code = CK MB) no gt 0.5-3.6 [facility] PearlandUrban InternsAC JRRBQVV6706-88-28 20:58:00 Test Item Value Reference Range Interpretation Comments Total CK (test code = Total CK) 32 12-[address] [facility] HospitalNanosolarAC AQKATWB4390-79-11 20:58:00 Test Item Value Reference Range Interpretation Comments CK MB Index (test no gt See_Comment [Automate d message] The code = CK MB Index) system w [facility] generated this result transmit mirna reference range : <=2.5. The reference range was not used to interpr et this result as zahra l/abnormal. [facility] [employer] [id number] 20:58:00 Test Item Value Reference Range Interpretation Comments Magnesium Lvl (test code = Magnesium 1.7 1.8-2.4 Lvl) [facility] [employer] [id number] 20:58:00 Test Item Value Reference Range Interpretation Comments eGFR (test code = eGFR) 73 [facility]2018-08-15 20:58:00 Test Item Value Reference Range Interpretation Comments AGAP (test code = AGAP) 14.6 10.0-20.0 [facility]2018-08-15 20:58:00 Test Item Value Reference Range Interpretation Comments Bili Total (test code = Bili Total) 0.5 0.2-1.3 [facility]2018-08-15 20:58:00 Test Item Value Reference Range Interpretation Comments B/C Ratio (test code = B/C Ratio) 40 1 6-25 [facility]2018-08-15 20:58:00 Test Item Value Reference Range Interpretation Comments Globulin (test code = Globulin) 4.8 2.7-4.2 [facility]2018-08-15 20:58:00 Test Item Value Reference Range Interpretation Comments A/G Ratio (test code = A/G Ratio) 0.5 1 0.7-1.6 [facility]2018-08-15 20:58:00 Test Item Value Reference Range Interpretation Comments AST (test code = AST) 7 See_Comment [Auto mated message] The system which ge nerated this result transmit mirna reference range : <=37. The reference range was not used to interpr et this result as zahra l/abnormal. [facility]2018-08-15 20:58:00 Test Item Value Reference Range Interpretation Comments Alk Phos (test code = Alk Phos) 79 39-136 [facility]2018-08-15 20:58:00 Test Item Value Reference Range Interpretation Comments Calcium Lvl (test code = Calcium Lvl) 8.8 8.5-10.5 [facility]2018-08-15 20:58:00 Test Item Value Reference Range Interpretation Comments Total Protein (test code = Total 7.3 6.4-8.4 Protein) [facility]2018-08-15 20:58:00 Test Item Value Reference Range Interpretation Comments Albumin Lvl (test code = Albumin Lvl) 2.5 3.5-5.0 [facility]2018-08-15 20:58:00 Test Item Value Reference Range Interpretation Comments ALT (test code = ALT) 13 See_Comment [Auto mated message] The system which ge nerated this result transmit mirna reference range : <=65. The reference range was not used to interpr et this result as zahra l/abnormal. [facility]2018-08-15 20:58:00 Test Item Value Reference Range Interpretation Comments Potassium Lvl (test code = Potassium 3.6 3.5-5.1 Lvl) [facility]2018-08-15 20:58:00 Test Item Value Reference Range Interpretation Comments Chloride Lvl (test code = Chloride Lvl) 113 95-109 [facility]2018-08-15 20:58:00 Test Item Value Reference Range Interpretation Comments CO2 (test code = CO2) 14 24-32 [facility]2018-08-15 20:58:00 Test Item Value Reference Range Interpretation Comments Glucose Lvl (test code = Glucose Lvl) 87 70-99 [facility]2018-08-15 20:58:00 Test Item Value Reference Range Interpretation Comments Sodium Lvl (test code = Sodium Lvl) 138 135-145 [facility]2018-08-15 20:58:00 Test Item Value Reference Range Interpretation Comments BUN (test code = BUN) 37 7-22 [facility]2018-08-15 20:58:00 Test Item Value Reference Range Interpretation Comments Creatinine Lvl (test code = Creatinine 0.93 0.50-1.40 Lvl) [facility]2018-08-15 20:58:00 Test Item Value Reference Range Interpretation Comments Lipase Lvl (test code = Lipase Lvl) 645 25-393 [facility]EtqbdeeEILUIQZFIZXET4578-92-52 20:58:00 Test Item Value Reference Range Interpretation Comments S Preg (test code = S Negative *NA*(02/09/18 Preg) 3:58 PM) [facility] HospitalGogcdedMUGKWRHFSQ5361-10-16 20:58:00 Test Item Value Reference Range Interpretation Comments MCHC (test code = MCHC) 33.8 32.0-36.0 [facility] HospitalGanvvkrAITQVCKWFZ1714-14-80 20:58:00 Test Item Value Reference Range Interpretation Comments RDW (test code = RDW) 14.3 11.5-14.5 [facility] HospitalHmvcsydKFZPYANFLG0049-05-30 20:58:00 Test Item Value Reference Range Interpretation Comments MCH (test code = MCH) 32.1 pg 27.0-31.0 [facility] HospitalDkezstgJSTPRTKWCN2592-37-34 20:58:00 Test Item Value Reference Range Interpretation Comments Hct (test code = Hct) 33.1 36.0-48.0 [facility] HospitalXiqxawdICJHMCQRCV8660-19-79 20:58:00 Test Item Value Reference Range Interpretation Comments WBC (test code = WBC) 15.9 3.7-10.4 [facility] HospitalGsyqoqvKKESWJYRZM0834-70-12 20:58:00 Test Item Value Reference Range Interpretation Comments Hgb (test code = Hgb) 11.2 12.0-16.0 [facility] HospitalTafsppyXMYGYUNZVB2397-82-30 20:58:00 Test Item Value Reference Range Interpretation Comments MCV (test code = MCV) 94.8 80.0-98.0 [facility] HospitalIciemfyTZVJGDXEEK6342-91-12 20:58:00 Test Item Value Reference Range Interpretation Comments RBC (test code = RBC) 3.49 4.20-5.40 [facility] HospitalJsjsodnRNXTNRQDVV4141-32-12 20:58:00 Test Item Value Reference Range Interpretation Comments MPV (test code = MPV) 7.7 7.4-10.4 [facility] HospitalWdbahboQLNDRFQNUE1340-48-98 20:58:00 Test Item Value Reference Range Interpretation Comments Platelet (test code = Platelet) 226 133-450 [facility] HospitalTkwazxaBQJHPQNIOP4556-33-51 20:58:00 Test Item Value Reference Range Interpretation Comments Monocytes # (test code 0.3 See_Comment [Aut omated message] The = Monocytes #) system which generated this result tra nsmitted reference range : <=0.8. The reference r chuck was not used to int erpret this result as normal/abnormal . [facility] HospitalQxlqnzsFOTYSXEAHP6692-83-61 20:58:00 Test Item Value Reference Range Interpretation Comments Neutrophils # (test code = Neutrophils 13.2 1.5-8.1 #) [facility] HospitalQpzgpvrTAQLAJYJID5569-14-18 20:58:00 Test Item Value Reference Range Interpretation Comments Lymphocytes # (test code = Lymphocytes 2.4 1.0-5.5 #) [facility] HospitalRqlucniFCUDPJBJTH5098-42-01 20:58:00 Test Item Value Reference Range Interpretation Comments Hypochrom (test code = 1+ (02/09/18 3:58 PM) Hypochrom) [facility]FypkfliVXWBCYWNKL6210-99-33 20:58:00 Test Item Value Reference Range Interpretation Comments RBC Morph (test code = Normal (02/09/18 3:58 RBC Morph) PM) [facility] HospitalIoatlihNUVFCNARTA4759-35-42 20:58:00 Test Item Value Reference Range Interpretation Comments Tot Cell Ct (test code = Tot Cell Ct) [address] [facility] HospitalZtxhjlqOLJDVCURCA3715-07-03 20:58:00 Test Item Value Reference Range Interpretation Comments Monocytes (test code = Monocytes) 2.0 2.0-12.[address] [facility] HospitalQkaliihTWSCWEPLND8164-06-71 20:58:00 Test Item Value Reference Range Interpretation Comments Bands (test code = 1.0 See_Comment [Automat ed message] The Bands) system which ge nerated this result transmit mirna reference range : <=11.0. The reference r chuck was not used to interpr et this result as zahra l/abnormal. [facility] HospitalAvszlloZXLXLYVYHJ0473-73-55 20:58:00 Test Item Value Reference Range Interpretation Comments Segs (test code = Segs) 82.0 45.0-75.[address] [facility] HospitalGosenlrVDRYLWVCLE2674-40-74 20:58:00 Test Item Value Reference Range Interpretation Comments Lymphocytes (test code = Lymphocytes) 15.0 20.0-40.[address] [facility] HospitalLuppqxbKYJFVIAIJM2483-15-61 20:58:00 Test Item Value Reference Range Interpretation Comments Plt Morph (test code = Normal (02/09/18 3:58 Plt Morph) PM) [facility] KWYOVLA3968-43-18 20:58:00 Test Item Value Reference Range Interpretation Comments Troponin-I (test code no gt See_Comment [Auto mated message] The = Troponin-I) system which g enerated this result transmit mirna reference range : <=0.40. The reference r chuck was not used to interpr et this result as zahra l/abnormal. [facility] OMVFBWH4285-75-50 20:58:00 Test Item Value Reference Range Interpretation Comments CK MB (test code = CK MB) no gt 0.5-3.6 [facility] ISQJWAI6559-03-76 20:58:00 Test Item Value Reference Range Interpretation Comments Total CK (test code = Total CK) 32 12-191 [facility] MSSMAXV7117-42-68 20:58:00 Test Item Value Reference Range Interpretation Comments CK MB Index (test no gt See_Comment [Automate d message] The code = CK MB Index) system w [employer] generated this result transmit mirna reference range : <=2.5. The reference range was not used to interpr et this result as zahra l/abnormal. [employer] [id number] 20:58:00 Test Item Value Reference Range Interpretation Comments Magnesium Lvl (test code = Magnesium 1.7 1.8-2.4 Lvl) [facility] HWAOXDA5790-54-57 20:58:00 Test Item Value Reference Range Interpretation Comments Troponin-I (test code no gt See_Comment [Auto mated message] The = Troponin-I) system which g enerated this result transmit mirna reference range : <=0.40. The reference r chuck was not used to interpr et this result as azhra l/abnormal. [employer]2018-08-15 20:58:00 Test Item Value Reference Range Interpretation Comments CK MB (test code = CK MB) no gt 0.5-3.6 [facility] [employer]AC OUFIHNZ0144-92-97 20:58:00 Test Item Value Reference Range Interpretation Comments Total CK (test code = Total CK) 32 191 [facility] [employer]2018-08-15 20:58:00 Test Item Value Reference Range Interpretation Comments CK MB Index (test no gt See_Comment [Automate d message] The code = CK MB Index) system w [employer] generated this result transmit mirna reference range : <=2.5. The reference range was not used to interpr et this result as zahra l/abnormal. [employer] [id number] 20:58:00 Test Item Value Reference Range Interpretation Comments Magnesium Lvl (test code = Magnesium 1.7 1.8-2.4 Lvl) [facility] [id number] 20:58:00 Test Item Value Reference Range Interpretation Comments eGFR (test code = eGFR) 73 [employer] TDZZN7899-04-50 20:58:00 Test Item Value Reference Range Interpretation Comments eGFR (test code = eGFR) 73 [employer] UHLAO2815-74-85 20:58:00 Test Item Value Reference Range Interpretation Comments AGAP (test code = AGAP) 14.6 10.0-20.0 [facility]2018-08-15 20:58:00 Test Item Value Reference Range Interpretation Comments Bili Total (test code = Bili Total) 0.5 0.2-1.3 [facility]2018-08-15 20:58:00 Test Item Value Reference Range Interpretation Comments B/C Ratio (test code = B/C Ratio) 40 1 6-25 [facility]2018-08-15 20:58:00 Test Item Value Reference Range Interpretation Comments Globulin (test code = Globulin) 4.8 2.7-4.2 [facility]2018-08-15 20:58:00 Test Item Value Reference Range Interpretation Comments A/G Ratio (test code = A/G Ratio) 0.5 1 0.7-1.6 [facility]2018-08-15 20:58:00 Test Item Value Reference Range Interpretation Comments AST (test code = AST) 7 See_Comment [Auto mated message] The system which ge nerated this result transmit mirna reference range : <=37. The reference range was not used to interpr et this result as zahra l/abnormal. [facility]2018-08-15 20:58:00 Test Item Value Reference Range Interpretation Comments Alk Phos (test code = Alk Phos) 79 39-136 [facility]2018-08-15 20:58:00 Test Item Value Reference Range Interpretation Comments Calcium Lvl (test code = Calcium Lvl) 8.8 8.5-10.5 [facility]2018-08-15 20:58:00 Test Item Value Reference Range Interpretation Comments Total Protein (test code = Total 7.3 6.4-8.4 Protein) [facility]2018-08-15 20:58:00 Test Item Value Reference Range Interpretation Comments AGAP (test code = AGAP) 14.6 10.0-20.0 [place] 307948-08-15 20:58:00 Test Item Value Reference Range Interpretation Comments Albumin Lvl (test code = Albumin Lvl) 2.5 3.5-5.0 [facility]2018-08-15 20:58:00 Test Item Value Reference Range Interpretation Comments ALT (test code = ALT) 13 See_Comment [Auto mated message] The system which ge nerated this result transmit mirna reference range : <=65. The reference range was not used to interpr et this result as zahra l/abnormal. [facility]2018-08-15 20:58:00 Test Item Value Reference Range Interpretation Comments Potassium Lvl (test code = Potassium 3.6 3.5-5.1 Lvl) [facility]2018-08-15 20:58:00 Test Item Value Reference Range Interpretation Comments Chloride Lvl (test code = Chloride Lvl) 113 95-109 [facility]2018-08-15 20:58:00 Test Item Value Reference Range Interpretation Comments CO2 (test code = CO2) 14 24-32 [facility]2018-08-15 20:58:00 Test Item Value Reference Range Interpretation Comments Glucose Lvl (test code = Glucose Lvl) 87 70-99 [facility]2018-08-15 20:58:00 Test Item Value Reference Range Interpretation Comments Sodium Lvl (test code = Sodium Lvl) 138 135-145 [facility]2018-08-15 20:58:00 Test Item Value Reference Range Interpretation Comments BUN (test code = BUN) 37 7-22 [facility]2018-08-15 20:58:00 Test Item Value Reference Range Interpretation Comments Creatinine Lvl (test code = Creatinine 0.93 0.50-1.40 Lvl) [facility]2018-08-15 20:58:00 Test Item Value Reference Range Interpretation Comments Lipase Lvl (test code = Lipase Lvl) 484 54-393 [facility]2018-08-15 20:58:00 Test Item Value Reference Range Interpretation Comments Bili Total (test code = Bili Total) 0.5 0.2-1.3 [facility]zojdzvXJKWXBBKSDAUS3333-29-96 20:58:00 Test Item Value Reference Range Interpretation Comments S Preg (test code = S Negative *NA*(02/09/18 Preg) 3:58 PM) [facility]CdglfmyNXFEORQGDN2937-82-02 20:58:00 Test Item Value Reference Range Interpretation Comments MCHC (test code = MCHC) 33.8 32.0-36.0 [facility]landAtymwtmZBKRVBEUQP8197-79-90 20:58:00 Test Item Value Reference Range Interpretation Comments RDW (test code = RDW) 14.3 11.5-14.[address] [facility] HospitalWpsouziKCMGVCASED7377-65-22 20:58:00 Test Item Value Reference Range Interpretation Comments MCH (test code = MCH) 32.1 pg 27.0-31.0 [facility] HospitalMhyydndMJEXYUTECC1625-84-16 20:58:00 Test Item Value Reference Range Interpretation Comments Hct (test code = Hct) 33.1 36.0-48.0 [facility]landXaiicszJTTRUFPKPC2207-89-12 20:58:00 Test Item Value Reference Range Interpretation Comments WBC (test code = WBC) 15.9 3.7-10.4 [facility] HospitalMiantboFPLYBFBVAI5506-86-63 20:58:00 Test Item Value Reference Range Interpretation Comments Hgb (test code = Hgb) 11.2 12.0-16.0 [facility] HospitalEzglnajWUUILOFTVG0937-82-73 20:58:00 Test Item Value Reference Range Interpretation Comments MCV (test code = MCV) 94.8 80.0-98.0 [facility]landDrzaocrQXYYNGPEMK8963-02-24 20:58:00 Test Item Value Reference Range Interpretation Comments RBC (test code = RBC) 3.49 4.20-5.40 [facility]landFllkdqdPSCGRGRGTE6782-31-99 20:58:00 Test Item Value Reference Range Interpretation Comments MPV (test code = MPV) 7.7 7.4-10.4 [facility]2018-08-15 20:58:00 Test Item Value Reference Range Interpretation Comments B/C Ratio (test code = B/C Ratio) 40 1 6-25 [facility]landKkrranaSSTWBWVJJY7244-32-06 20:58:00 Test Item Value Reference Range Interpretation Comments Platelet (test code = Platelet) 226 133-450 [facility] HospitalZvgakbpVOKZKIUVAC0110-22-56 20:58:00 Test Item Value Reference Range Interpretation Comments Monocytes # (test code 0.3 See_Comment [Aut omated message] The = Monocytes #) system which generated this result tra nsmitted reference range : <=0.8. The reference r chuck was not used to int erpret this result as normal/abnormal . [facility] HospitalYficucqROTKUOXHTO8342-13-21 20:58:00 Test Item Value Reference Range Interpretation Comments Neutrophils # (test code = Neutrophils 13.2 1.5-8.1 #) [facility] HospitalTtctnpgXGFTFBSRCR7287-92-20 20:58:00 Test Item Value Reference Range Interpretation Comments Lymphocytes # (test code = Lymphocytes 2.4 1.0-5.5 #) [facility] HospitalMzkmspvFVSENULZAA9984-85-82 20:58:00 Test Item Value Reference Range Interpretation Comments Hypochrom (test code = 1+ (02/09/18 3:58 PM) Hypochrom) [facility] HospitalUlgambeHATIYBSMNJ9361-09-64 20:58:00 Test Item Value Reference Range Interpretation Comments RBC Morph (test code = Normal (02/09/18 3:58 RBC Morph) PM) [facility] HospitalVqymbjiUFBKDBIRTK5033-39-32 20:58:00 Test Item Value Reference Range Interpretation Comments Tot Cell Ct (test code = Tot Cell Ct) 100 1 [facility] HospitalXjnxpsoVXMRMKRFPX1835-88-16 20:58:00 Test Item Value Reference Range Interpretation Comments Monocytes (test code = Monocytes) 2.0 2.0-12.0 [facility] HospitalPzjxqffHACZBEHEZI5696-45-68 20:58:00 Test Item Value Reference Range Interpretation Comments Bands (test code = 1.0 See_Comment [Automat ed message] The Bands) system which ge nerated this result transmit mirna reference range : <=11.0. The reference r chuck was not used to interpr et this result as zahra l/abnormal. [facility] HospitalRbyujkyJURIZWGKMI5614-99-57 20:58:00 Test Item Value Reference Range Interpretation Comments Segs (test code = Segs) 82.0 45.0-75.0 [facility]2018-08-15 20:58:00 Test Item Value Reference Range Interpretation Comments Globulin (test code = Globulin) 4.8 2.7-4.2 [facility] HospitalLpyhyfoWZPKRBGPHI9176-89-72 20:58:00 Test Item Value Reference Range Interpretation Comments Lymphocytes (test code = Lymphocytes) 15.0 20.0-40.0 [facility] HospitalNyzulmkLZCMCUSDFB5398-14-80 20:58:00 Test Item Value Reference Range Interpretation Comments Plt Morph (test code = Normal (02/09/18 3:58 Plt Morph) PM) [facility]2018-08-15 20:58:00 Test Item Value Reference Range Interpretation Comments A/G Ratio (test code = A/G Ratio) 0.5 1 0.7-1.6 [facility]2018-08-15 20:58:00 Test Item Value Reference Range Interpretation Comments AST (test code = AST) 7 See_Comment [Auto mated message] The system which ge nerated this result transmit mirna reference range : <=37. The reference range was not used to interpr et this result as zahra l/abnormal. [facility]2018-08-15 20:58:00 Test Item Value Reference Range Interpretation Comments Alk Phos (test code = Alk Phos) 79 39-136 [facility]2018-08-15 20:58:00 Test Item Value Reference Range Interpretation Comments Calcium Lvl (test code = Calcium Lvl) 8.8 8.5-10.5 [facility]2018-08-15 20:58:00 Test Item Value Reference Range Interpretation Comments Total Protein (test code = Total 7.3 6.4-8.4 Protein) [facility]2018-08-15 20:58:00 Test Item Value Reference Range Interpretation Comments Albumin Lvl (test code = Albumin Lvl) 2.5 3.5-5.0 [facility]2018-08-15 20:58:00 Test Item Value Reference Range Interpretation Comments ALT (test code = ALT) 13 See_Comment [Auto mated message] The system which ge nerated this result transmit mirna reference range : <=65. The reference range was not used to interpr et this result as zahra l/abnormal. [facility]2018-08-15 20:58:00 Test Item Value Reference Range Interpretation Comments Potassium Lvl (test code = Potassium 3.6 3.5-5.1 Lvl) [facility]2018-08-15 20:58:00 Test Item Value Reference Range Interpretation Comments Chloride Lvl (test code = Chloride Lvl) 113 95-109 [facility]2018-08-15 20:58:00 Test Item Value Reference Range Interpretation Comments CO2 (test code = CO2) 14 24-32 [facility]2018-08-15 20:58:00 Test Item Value Reference Range Interpretation Comments Glucose Lvl (test code = Glucose Lvl) 87 70-99 [facility]2018-08-15 20:58:00 Test Item Value Reference Range Interpretation Comments Sodium Lvl (test code = Sodium Lvl) 138 135-145 [facility]2018-08-15 20:58:00 Test Item Value Reference Range Interpretation Comments BUN (test code = BUN) 37 7-22 [facility]2018-08-15 20:58:00 Test Item Value Reference Range Interpretation Comments Creatinine Lvl (test code = Creatinine 0.93 0.50-1.40 Lvl) [facility]2018-08-15 20:58:00 Test Item Value Reference Range Interpretation Comments Lipase Lvl (test code = Lipase Lvl) 841 71-393 [place] 11111018-08-15 20:58:00 Test Item Value Reference Range Interpretation Comments S Preg (test code = S Negative *NA*(02/09/18 Preg) 3:58 PM) [facility] HospitalJhdbqhyVYRWLMBLUH2967-89-98 20:58:00 Test Item Value Reference Range Interpretation Comments MCHC (test code = MCHC) 33.8 32.0-36.0 [facility] HospitalWlcxmizUJVDPQTMGI5792-17-10 20:58:00 Test Item Value Reference Range Interpretation Comments RDW (test code = RDW) 14.3 11.5-14.5 [facility] HospitalOtrbhrnNZQSHGOEJQ9736-95-22 20:58:00 Test Item Value Reference Range Interpretation Comments MCH (test code = MCH) 32.1 pg 27.0-31.0 [facility] HospitalJynpcttWKWNYGKIET7069-97-63 20:58:00 Test Item Value Reference Range Interpretation Comments Hct (test code = Hct) 33.1 36.0-48.0 [facility] HospitalWfweaseOFIEMEBBSN8919-37-29 20:58:00 Test Item Value Reference Range Interpretation Comments WBC (test code = WBC) 15.9 3.7-10.4 [facility] HospitalIhuoxgoPWJQUPILWB5969-20-96 20:58:00 Test Item Value Reference Range Interpretation Comments Hgb (test code = Hgb) 11.2 12.0-16.0 [facility] HospitalBzzaezkHZKHWMMPZB6936-72-41 20:58:00 Test Item Value Reference Range Interpretation Comments MCV (test code = MCV) 94.8 80.0-98.0 [facility] HospitalFultpjyWWBVRPOUOX1021-53-08 20:58:00 Test Item Value Reference Range Interpretation Comments RBC (test code = RBC) 3.49 4.20-5.40 [facility] HospitalEkhpkbsWWIUZVTOCR4806-26-01 20:58:00 Test Item Value Reference Range Interpretation Comments MPV (test code = MPV) 7.7 7.4-10.4 [facility] HospitalIcmeymfCZXLIFJGJR8075-23-38 20:58:00 Test Item Value Reference Range Interpretation Comments Platelet (test code = Platelet) 226 133-450 [facility] HospitalBardbgpRWYGPIUYUP9107-46-27 20:58:00 Test Item Value Reference Range Interpretation Comments Monocytes # (test code 0.3 See_Comment [Aut omated message] The = Monocytes #) system which generated this result tra nsmitted reference range : <=0.8. The reference r chuck was not used to int erpret this result as normal/abnormal . [facility] HospitalCzbdnacLZVJLCKUHW3570-82-87 20:58:00 Test Item Value Reference Range Interpretation Comments Neutrophils # (test code = Neutrophils 13.2 1.5-8.1 #) [facility] HospitalCsquacxJYNURQFWHO4657-07-05 20:58:00 Test Item Value Reference Range Interpretation Comments Lymphocytes # (test code = Lymphocytes 2.4 1.0-5.5 #) [facility] HospitalGtwnbsvUJRVDKPIFR3117-13-00 20:58:00 Test Item Value Reference Range Interpretation Comments Hypochrom (test code = 1+ (02/09/18 3:58 PM) Hypochrom) [facility] HospitalThglzqwBYQXASRRAO1059-61-97 20:58:00 Test Item Value Reference Range Interpretation Comments RBC Morph (test code = Normal (02/09/18 3:58 RBC Morph) PM) [facility] HospitalHnmxghlYHVZWKTJOS7453-28-40 20:58:00 Test Item Value Reference Range Interpretation Comments Tot Cell Ct (test code = Tot Cell Ct) 100 1 [facility] HospitalUsnracjORAQYMMHXI4217-97-73 20:58:00 Test Item Value Reference Range Interpretation Comments Monocytes (test code = Monocytes) 2.0 2.0-12.0 [facility] HospitalHfvmmyaETVNUWDOBG5705-64-35 20:58:00 Test Item Value Reference Range Interpretation Comments Bands (test code = 1.0 See_Comment [Automat ed message] The Bands) system which ge nerated this result transmit mirna reference range : <=11.0. The reference r chuck was not used to interpr et this result as zahra l/abnormal. [facility] LzyzmpyNYKMCLQXLJ7548-44-22 20:58:00 Test Item Value Reference Range Interpretation Comments Segs (test code = Segs) 82.0 45.0-75.[address] [facility]lr[facility]zjBCYGLMVCNN3010-58-08 20:58:00 Test Item Value Reference Range Interpretation Comments Lymphocytes (test code = Lymphocytes) 15.0 20.0-40.[address] [facility]EknjmflUIXGHXPQUI0845-47-46 20:58:00 Test Item Value Reference Range Interpretation Comments Plt Morph (test code = Normal (02/09/18 3:58 Plt Morph) PM) [facility]sAC CUVLMTW8696-50-26 20:58:00 Test Item Value Reference Range Interpretation Comments Troponin-I (test code no gt See_Comment [Auto mated message] The = Troponin-I) system which g enerated this result transmit mirna reference range : <=0.40. The reference r chuck was not used to interpr et this result as zahra l/abnormal. [facility] HospitalNanosolarAC WYZQETR4058-99-48 20:58:00 Test Item Value Reference Range Interpretation Comments CK MB (test code = CK MB) no gt 0.5-3.[address] [facility]ann[facility]sAC TSILICZ0683-86-80 20:58:00 Test Item Value Reference Range Interpretation Comments Total CK (test code = Total CK) 32 12-[address] [facility]annUr[facility] InternsAC [id number] 20:58:00 Test Item Value Reference Range Interpretation Comments CK MB Index (test no gt See_Comment [Automate d message] The code = CK MB Index) system w [facility] generated this result transmit mirna reference range : <=2.5. The reference range was not used to interpr et this result as zahra l/abnormal. [facility] [id number] 20:58:00 Test Item Value Reference Range Interpretation Comments Magnesium Lvl (test code = Magnesium 1.7 1.8-2.4 Lvl) [facility] [place] [employer] [id number] 20:58:00 Test Item Value Reference Range Interpretation Comments eGFR (test code = eGFR) 73 [facility] [employer] AOKSF1563-96-72 20:58:00 Test Item Value Reference Range Interpretation Comments AGAP (test code = AGAP) 14.6 10.0-20.0 [facility]2018-08-15 20:58:00 Test Item Value Reference Range Interpretation Comments Bili Total (test code = Bili Total) 0.5 0.2-1.3 [facility]2018-08-15 20:58:00 Test Item Value Reference Range Interpretation Comments B/C Ratio (test code = B/C Ratio) 40 1 6-25 [facility]2018-08-15 20:58:00 Test Item Value Reference Range Interpretation Comments Globulin (test code = Globulin) 4.8 2.7-4.2 [facility]2018-08-15 20:58:00 Test Item Value Reference Range Interpretation Comments A/G Ratio (test code = A/G Ratio) 0.5 1 0.7-1.6 [facility]2018-08-15 20:58:00 Test Item Value Reference Range Interpretation Comments AST (test code = AST) 7 See_Comment [Auto mated message] The system which ge nerated this result transmit mirna reference range : <=37. The reference range was not used to interpr et this result as zahra l/abnormal. [facility]2018-08-15 20:58:00 Test Item Value Reference Range Interpretation Comments Alk Phos (test code = Alk Phos) 79 39-136 [facility]2018-08-15 20:58:00 Test Item Value Reference Range Interpretation Comments Calcium Lvl (test code = Calcium Lvl) 8.8 8.5-10.5 [facility]2018-08-15 20:58:00 Test Item Value Reference Range Interpretation Comments Total Protein (test code = Total 7.3 6.4-8.4 Protein) [facility]2018-08-15 20:58:00 Test Item Value Reference Range Interpretation Comments Albumin Lvl (test code = Albumin Lvl) 2.5 3.5-5.0 [facility]2018-08-15 20:58:00 Test Item Value Reference Range Interpretation Comments ALT (test code = ALT) 13 See_Comment [Auto mated message] The system which ge nerated this result transmit mirna reference range : <=65. The reference range was not used to interpr et this result as zahra l/abnormal. [facility]2018-08-15 20:58:00 Test Item Value Reference Range Interpretation Comments Potassium Lvl (test code = Potassium 3.6 3.5-5.1 Lvl) [facility]2018-08-15 20:58:00 Test Item Value Reference Range Interpretation Comments Chloride Lvl (test code = Chloride Lvl) 113 95-109 [facility]2018-08-15 20:58:00 Test Item Value Reference Range Interpretation Comments CO2 (test code = CO2) 14 24-32 [facility]2018-08-15 20:58:00 Test Item Value Reference Range Interpretation Comments Glucose Lvl (test code = Glucose Lvl) 87 70-99 [facility]2018-08-15 20:58:00 Test Item Value Reference Range Interpretation Comments Sodium Lvl (test code = Sodium Lvl) 138 135-145 [facility]2018-08-15 20:58:00 Test Item Value Reference Range Interpretation Comments BUN (test code = BUN) 37 7-22 [facility]2018-08-15 20:58:00 Test Item Value Reference Range Interpretation Comments Creatinine Lvl (test code = Creatinine 0.93 0.50-1.40 Lvl) [facility]2018-08-15 20:58:00 Test Item Value Reference Range Interpretation Comments Lipase Lvl (test code = Lipase Lvl) 657 26-393 [facility]IP[facility]XNPA5137[facility]58-99 20:58:00 Test Item Value Reference Range Interpretation Comments S Preg (test code = S Negative *NA*(02/09/18 Preg) 3:58 PM) [facility]pxtfxaDVAFSISQON3730-34-93 20:58:00 Test Item Value Reference Range Interpretation Comments MCHC (test code = MCHC) 33.8 32.0-36.0 [facility] HospitalUjcjjlkUQTDSKTHEO7389-50-66 20:58:00 Test Item Value Reference Range Interpretation Comments RDW (test code = RDW) 14.3 11.5-14.5 [facility] HospitalQdugjvuIINYJMZBNU7200-85-13 20:58:00 Test Item Value Reference Range Interpretation Comments MCH (test code = MCH) 32.1 pg 27.0-31.0 [facility] HospitalQyewqkvWIRPUFYMLE1331-34-59 20:58:00 Test Item Value Reference Range Interpretation Comments Hct (test code = Hct) 33.1 36.0-48.0 [facility] HospitalBsvuvqeWYGNTFJLEE1574-70-09 20:58:00 Test Item Value Reference Range Interpretation Comments WBC (test code = WBC) 15.9 3.7-10.4 [facility] HospitalFbwfdklOPJEGZGIZJ4842-10-96 20:58:00 Test Item Value Reference Range Interpretation Comments Hgb (test code = Hgb) 11.2 12.0-16.0 [facility] HospitalCzgogfzHIUHIQHLYY3778-81-94 20:58:00 Test Item Value Reference Range Interpretation Comments MCV (test code = MCV) 94.8 80.0-98.0 [facility] HospitalWvmcajiUXFMSESVSU3726-32-81 20:58:00 Test Item Value Reference Range Interpretation Comments RBC (test code = RBC) 3.49 4.20-5.40 [facility] HospitalUgcywljWXYEFXHICJ9933-68-32 20:58:00 Test Item Value Reference Range Interpretation Comments MPV (test code = MPV) 7.7 7.4-10.4 [facility] HospitalTmgmqlbVUTQZOOCAC2459-69-85 20:58:00 Test Item Value Reference Range Interpretation Comments Platelet (test code = Platelet) 226 133-450 [facility] HospitalBqfarjwSKVPXWUQZP6272-66-14 20:58:00 Test Item Value Reference Range Interpretation Comments Monocytes # (test code 0.3 See_Comment [Aut omated message] The = Monocytes #) system which generated this result tra nsmitted reference range : <=0.8. The reference r chuck was not used to int erpret this result as normal/abnormal . [facility] HospitalRzpihxrWSTUVIFEJB4457-54-50 20:58:00 Test Item Value Reference Range Interpretation Comments Neutrophils # (test code = Neutrophils 13.2 1.5-8.1 #) [facility] HospitalMvjlfazJMALOICANJ5667-05-38 20:58:00 Test Item Value Reference Range Interpretation Comments Lymphocytes # (test code = Lymphocytes 2.4 1.0-5.5 #) [facility] HospitalTugiiotIQAMGINFZN3622-40-35 20:58:00 Test Item Value Reference Range Interpretation Comments Hypochrom (test code = 1+ (02/09/18 3:58 PM) Hypochrom) [facility] HospitalFlwafkgFTYEJVZTKR1236-87-36 20:58:00 Test Item Value Reference Range Interpretation Comments RBC Morph (test code = Normal (02/09/18 3:58 RBC Morph) PM) [facility]mk[facility]TTNAV[facility]QLQ8032[facility]10 20:58:00 Test Item Value Reference Range Interpretation Comments Tot Cell Ct (test code = Tot Cell Ct) 100 1 [facility]landFmwqiljJXMIVHEZMG1183-97-65 20:58:00 Test Item Value Reference Range Interpretation Comments Monocytes (test code = Monocytes) 2.0 2.0-12.[address] [facility]pxGVVNJTNFTJ6671-61-58 20:58:00 Test Item Value Reference Range Interpretation Comments Bands (test code = 1.0 See_Comment [Automat ed message] The Bands) system which ge nerated this result transmit mirna reference range : <=11.0. The reference r chuck was not used to interpr et this result as zahra l/abnormal. [facility]CfgxvnkODEDAWDLLU5610-85-38 20:58:00 Test Item Value Reference Range Interpretation Comments Segs (test code = Segs) 82.0 45.0-75.[address] [facility]ItljhwwDKJNHBTLCS6765-20-34 20:58:00 Test Item Value Reference Range Interpretation Comments Lymphocytes (test code = Lymphocytes) 15.0 20.0-40.[address] [facility]MviloelESURCGULKZ2281-11-70 20:58:00 Test Item Value Reference Range Interpretation Comments Plt Morph (test code = Normal (02/09/18 3:58 Plt Morph) PM) [facility] HospitalHonestly.comCARDIAC BEQELUJ5460-54-40 20:58:00 Test Item Value Reference Range Interpretation Comments Troponin-I (test code no gt See_Comment [Auto mated message] The = Troponin-I) system which g enerated this result transmit mirna reference range : <=0.40. The reference r chuck was not used to interpr et this result as zahra l/abnormal. [facility] HospitalHonestly.comCARDIAC UXKVBGH6728-70-55 20:58:00 Test Item Value Reference Range Interpretation Comments CK MB (test code = CK MB) no gt 0.5-3.[address] [facility]annCARDIAC UVZDEQI8637-17-72 20:58:00 Test Item Value Reference Range Interpretation Comments Total CK (test code = Total CK) 32 12-[address] [facility]annCARDIAC OVHZYVM0385-59-14 20:58:00 Test Item Value Reference Range Interpretation Comments CK MB Index (test no gt See_Comment [Automate d message] The code = CK MB Index) system w [facility] generated this result transmit mirna reference range : <=2.5. The reference range was not used to interpr et this result as zahra l/abnormal. [facility]2018-08-15 20:58:00 Test Item Value Reference Range Interpretation Comments Magnesium Lvl (test code = Magnesium 1.7 1.8-2.4 Lvl) [facility]2018-08-15 20:58:00 Test Item Value Reference Range Interpretation Comments eGFR (test code = eGFR) 73 [facility]2018-08-15 20:58:00 Test Item Value Reference Range Interpretation Comments AGAP (test code = AGAP) 14.6 10.0-20.0 [facility]2018-08-15 20:58:00 Test Item Value Reference Range Interpretation Comments Bili Total (test code = Bili Total) 0.5 0.2-1.3 [facility]2018-08-15 20:58:00 Test Item Value Reference Range Interpretation Comments B/C Ratio (test code = B/C Ratio) 40 1 6-25 [facility]2018-08-15 20:58:00 Test Item Value Reference Range Interpretation Comments Globulin (test code = Globulin) 4.8 2.7-4.2 [facility]2018-08-15 20:58:00 Test Item Value Reference Range Interpretation Comments A/G Ratio (test code = A/G Ratio) 0.5 1 0.7-1.6 [facility]2018-08-15 20:58:00 Test Item Value Reference Range Interpretation Comments AST (test code = AST) 7 See_Comment [Auto mated message] The system which ge nerated this result transmit mirna reference range : <=37. The reference range was not used to interpr et this result as zahra l/abnormal. [facility]2018-08-15 20:58:00 Test Item Value Reference Range Interpretation Comments Alk Phos (test code = Alk Phos) 79 39-136 [facility]2018-08-15 20:58:00 Test Item Value Reference Range Interpretation Comments Calcium Lvl (test code = Calcium Lvl) 8.8 8.5-10.5 [facility]2018-08-15 20:58:00 Test Item Value Reference Range Interpretation Comments Total Protein (test code = Total 7.3 6.4-8.4 Protein) [facility]2018-08-15 20:58:00 Test Item Value Reference Range Interpretation Comments Albumin Lvl (test code = Albumin Lvl) 2.5 3.5-5.0 [facility]2018-08-15 20:58:00 Test Item Value Reference Range Interpretation Comments ALT (test code = ALT) 13 See_Comment [Auto mated message] The system which ge nerated this result transmit mirna reference range : <=65. The reference range was not used to interpr et this result as zahra l/abnormal. [facility]2018-08-15 20:58:00 Test Item Value Reference Range Interpretation Comments Potassium Lvl (test code = Potassium 3.6 3.5-5.1 Lvl) [facility]2018-08-15 20:58:00 Test Item Value Reference Range Interpretation Comments Chloride Lvl (test code = Chloride Lvl) 113 95-109 [facility]2018-08-15 20:58:00 Test Item Value Reference Range Interpretation Comments CO2 (test code = CO2) 14 24-32 [facility]2018-08-15 20:58:00 Test Item Value Reference Range Interpretation Comments Glucose Lvl (test code = Glucose Lvl) 87 70-99 [facility]2018-08-15 20:58:00 Test Item Value Reference Range Interpretation Comments Sodium Lvl (test code = Sodium Lvl) 138 135-145 [facility]2018-08-15 20:58:00 Test Item Value Reference Range Interpretation Comments BUN (test code = BUN) 37 7-22 [facility]2018-08-15 20:58:00 Test Item Value Reference Range Interpretation Comments Creatinine Lvl (test code = Creatinine 0.93 0.50-1.40 Lvl) [facility]2018-08-15 20:58:00 Test Item Value Reference Range Interpretation Comments Lipase Lvl (test code = Lipase Lvl) 510 58-393 [facility]DhmaebkZYHGXFBWXNXKC6922-22-13 20:58:00 Test Item Value Reference Range Interpretation Comments S Preg (test code = S Negative *NA*(02/09/18 Preg) 3:58 PM) [facility] HospitalBruqmbwRIIGVQAQZW6301-65-21 20:58:00 Test Item Value Reference Range Interpretation Comments MCHC (test code = MCHC) 33.8 32.0-36.0 [facility] HospitalSajxpfjTBOZAVXJSM2200-65-16 20:58:00 Test Item Value Reference Range Interpretation Comments RDW (test code = RDW) 14.3 11.5-14.5 [facility] HospitalHfvazmkKJJXEHEKNW0297-42-71 20:58:00 Test Item Value Reference Range Interpretation Comments MCH (test code = MCH) 32.1 pg 27.0-31.0 [facility] HospitalXudgyulIVXJTTOFHN0890-20-93 20:58:00 Test Item Value Reference Range Interpretation Comments Hct (test code = Hct) 33.1 36.0-48.0 [facility] HospitalMotpeneIWNVEVGLDU7241-21-87 20:58:00 Test Item Value Reference Range Interpretation Comments WBC (test code = WBC) 15.9 3.7-10.4 [facility] HospitalDyfucqlEZDQGARXCD6111-65-25 20:58:00 Test Item Value Reference Range Interpretation Comments Hgb (test code = Hgb) 11.2 12.0-16.0 [facility] HospitalHmzpqvrRVHYQPVQCZ2428-12-53 20:58:00 Test Item Value Reference Range Interpretation Comments MCV (test code = MCV) 94.8 80.0-98.0 [facility] HospitalErcmqmgXNORLFTPBN7205-72-99 20:58:00 Test Item Value Reference Range Interpretation Comments RBC (test code = RBC) 3.49 4.20-5.40 [facility] HospitalIffqhyqSSWELECZCF9682-50-01 20:58:00 Test Item Value Reference Range Interpretation Comments MPV (test code = MPV) 7.7 7.4-10.4 [facility] HospitalXdmrikrFIKHATPFMI7018-88-73 20:58:00 Test Item Value Reference Range Interpretation Comments Platelet (test code = Platelet) 226 133-450 [facility] HospitalLvrmlhhHQDHIKVSHG2937-68-62 20:58:00 Test Item Value Reference Range Interpretation Comments Monocytes # (test code 0.3 See_Comment [Aut omated message] The = Monocytes #) system which generated this result tra nsmitted reference range : <=0.8. The reference r chuck was not used to int erpret this result as normal/abnormal . [facility] HospitalQwcakxiBBEKXIZXBX0039-83-06 20:58:00 Test Item Value Reference Range Interpretation Comments Neutrophils # (test code = Neutrophils 13.2 1.5-8.1 #) [facility] HospitalViypkzsQMBUQXGOMJ1008-61-61 20:58:00 Test Item Value Reference Range Interpretation Comments Lymphocytes # (test code = Lymphocytes 2.4 1.0-5.5 #) [facility] HospitalMdzfsteXOJHUPXMBQ5829-97-06 20:58:00 Test Item Value Reference Range Interpretation Comments Hypochrom (test code = 1+ (02/09/18 3:58 PM) Hypochrom) [facility] HospitalJlochwpRKYLIGPQMZ8571-86-39 20:58:00 Test Item Value Reference Range Interpretation Comments RBC Morph (test code = Normal (02/09/18 3:58 RBC Morph) PM) [facility] HospitalAjprstcFWYLFZQJUK3501-42-86 20:58:00 Test Item Value Reference Range Interpretation Comments Tot Cell Ct (test code = Tot Cell Ct) 100 1 [facility] HospitalPcgscuoKNMGKWTWNM3995-45-50 20:58:00 Test Item Value Reference Range Interpretation Comments Monocytes (test code = Monocytes) 2.0 2.0-12.0 [facility] HospitalCzhtsslOYUMJYXERZ6697-97-70 20:58:00 Test Item Value Reference Range Interpretation Comments Bands (test code = 1.0 See_Comment [Automat ed message] The Bands) system which ge nerated this result transmit mirna reference range : <=11.0. The reference r chuck was not used to interpr et this result as zahra l/abnormal. [facility] HospitalEtzafzeEWWWYFWWQV4307-85-37 20:58:00 Test Item Value Reference Range Interpretation Comments Segs (test code = Segs) 82.0 45.0-75.0 [facility] HospitalNrynmfuKSJPZXEYXT6275-25-78 20:58:00 Test Item Value Reference Range Interpretation Comments Lymphocytes (test code = Lymphocytes) 15.0 20.0-40.0 [facility] HospitalFgankvuKYQFWSYNQA0493-13-85 20:58:00 Test Item Value Reference Range Interpretation Comments Plt Morph (test code = Normal (02/09/18 3:58 Plt Morph) PM) [facility]FA[facility]:SUSC:PT:ISOLATE:ORDQN:[id number] 20:38:00 Test Item Value Reference Range Interpretation Comments Culture: Urine (test >100,000 CFU/mL code = Culture: Escherichia coli <10,000 Urine) CFU/mL Skin Manasa [facility]landKERRILIN:SUSC:PT:ISOLATE:ORDQN:[id number] 20:38:00 Test Item Value Reference Range Interpretation Comments Escherichia coli (test code Escherichia coli = Escherichia coli) [facility] AND [id number] 20:38:00 Test Item Value Reference Range Interpretation Comments UA Urobilinogen (test code = UA <=1.0 mg/dL 0.1-1.0 Urobilinogen) [facility] AND [id number] 20:38:00 Test Item Value Reference Range Interpretation Comments UA Bacteria (test code = UA Occasional /HPF Bacteria) [facility] AND [id number] 20:38:00 Test Item Value Reference Range Interpretation Comments UA Leuk Est (test code Large *ABN*(02/09/18 = UA Leuk Est) 3:38 PM) [facility] AND [id number] 20:38:00 Test Item Value Reference Range Interpretation Comments UA Sq Epi (test code = UA Sq Epi) Many /LPF [facility] AND [id number] 20:38:00 Test Item Value Reference Range Interpretation Comments UA Nitrite (test code Negative (02/09/18 3:38 = UA Nitrite) PM) [facility] AND [id number] 20:38:00 Test Item Value Reference Range Interpretation Comments UA RBC (test code = 5 See_Comment [Automa mirna message] The UA RBC) system which ge nerated this result transmit mirna reference range : <=2. The reference range was not used to interpr et this result as zahra l/abnormal. [facility] AND [id number] 20:38:00 Test Item Value Reference Range Interpretation Comments UA WBC (test code = 13 See_Comment [Automa mirna message] The UA WBC) system which ge nerated this result transmit mirna reference range : <=5. The reference range was not used to interpr et this result as zahra l/abnormal. [facility] AND [id number] 20:38:00 Test Item Value Reference Range Interpretation Comments UA Glucose (test code = UA Negative mg/dL Glucose) [facility] AND [id number] 20:38:00 Test Item Value Reference Range Interpretation Comments UA Spec Grav (test code = UA Spec 1.015 1 Grav) [facility] AND [id number] 20:38:00 Test Item Value Reference Range Interpretation Comments UA Protein (test code = UA Protein) 30 mg/dL [facility] AND [id number] 20:38:00 Test Item Value Reference Range Interpretation Comments UA pH (test code = UA pH) 5.0 1 5.0-8.0 [facility] AND [id number] 20:38:00 Test Item Value Reference Range Interpretation Comments UA Bili (test code = Negative *NA*(02/09/18 UA Bili) 3:38 PM) [facility] AND [id number] 20:38:00 Test Item Value Reference Range Interpretation Comments UA Ketones (test code = UA Trace mg/dL Ketones) [facility] AND [id number] 20:38:00 Test Item Value Reference Range Interpretation Comments UA Blood (test code = Small *ABN*(02/09/18 UA Blood) 3:38 PM) [facility] AND [id number] 20:38:00 Test Item Value Reference Range Interpretation Comments UA Color (test code = Yellow *NA*(02/09/18 UA Color) 3:38 PM) [facility] AND [id number] 20:38:00 Test Item Value Reference Range Interpretation Comments UA Turbidity (test code Slight *ABN*(02/09/18 = UA Turbidity) 3:38 PM) [facility]KERRILIN:SUSC:PT:ISOLATE:ORDQN:[id number] 20:38:00 Test Item Value Reference Range Interpretation Comments Culture: Urine (test >100,000 CFU/mL code = Culture: Escherichia coli <10,000 Urine) CFU/mL Skin Manasa [facility]:SUSC:PT:ISOLATE:ORDQN:[id number] 20:38:00 Test Item Value Reference Range Interpretation Comments Escherichia coli (test code Escherichia coli = Escherichia coli) [facility] AND [id number] 20:38:00 Test Item Value Reference Range Interpretation Comments UA Urobilinogen (test code = UA <=1.0 mg/dL 0.1-1.0 Urobilinogen) [facility] AND [id number] 20:38:00 Test Item Value Reference Range Interpretation Comments UA Bacteria (test code = UA Occasional /HPF Bacteria) [facility] AND [id number] 20:38:00 Test Item Value Reference Range Interpretation Comments UA Leuk Est (test code Large *ABN*(02/09/18 = UA Leuk Est) 3:38 PM) [facility] AND [id number] 20:38:00 Test Item Value Reference Range Interpretation Comments UA Sq Epi (test code = UA Sq Epi) Many /LPF [facility] AND [id number] 20:38:00 Test Item Value Reference Range Interpretation Comments UA Nitrite (test code Negative (02/09/18 3:38 = UA Nitrite) PM) [facility] AND [id number] 20:38:00 Test Item Value Reference Range Interpretation Comments UA RBC (test code = UA RBC) 5 <=2 [facility] AND [id number] 20:38:00 Test Item Value Reference Range Interpretation Comments UA WBC (test code = UA WBC) 13 <=5 [facility] AND [id number] 20:38:00 Test Item Value Reference Range Interpretation Comments UA Glucose (test code = UA Negative mg/dL Glucose) [facility] AND [id number] 20:38:00 Test Item Value Reference Range Interpretation Comments UA Spec Grav (test code = UA Spec 1.015 1 Grav) [facility] AND [id number] 20:38:00 Test Item Value Reference Range Interpretation Comments UA Protein (test code = UA Protein) 30 mg/dL [facility] AND [id number] 20:38:00 Test Item Value Reference Range Interpretation Comments UA pH (test code = UA pH) 5.0 1 5.0-8.0 [facility] AND [id number] 20:38:00 Test Item Value Reference Range Interpretation Comments UA Bili (test code = Negative *NA*(02/09/18 UA Bili) 3:38 PM) [facility] AND [id number] 20:38:00 Test Item Value Reference Range Interpretation Comments UA Ketones (test code = UA Trace mg/dL Ketones) [facility] AND [id number] 20:38:00 Test Item Value Reference Range Interpretation Comments UA Blood (test code = Small *ABN*(02/09/18 UA Blood) 3:38 PM) [facility] AND [id number] 20:38:00 Test Item Value Reference Range Interpretation Comments UA Color (test code = Yellow *NA*(02/09/18 UA Color) 3:38 PM) [facility] AND [id number] 20:38:00 Test Item Value Reference Range Interpretation Comments UA Turbidity (test code Slight *ABN*(02/09/18 = UA Turbidity) 3:38 PM) [facility]:SUSC:PT:ISOLATE:ORDQN:[id number] 20:38:00 Test Item Value Reference Range Interpretation Comments Culture: Urine (test >100,000 CFU/mL code = Culture: Escherichia coli <10,000 Urine) CFU/mL Skin [facility]:SUSC:PT:ISOLATE:ORDQN:[id number] 20:38:00 Test Item Value Reference Range Interpretation Comments Escherichia coli (test code Escherichia coli = Escherichia coli) [facility] AND [id number] 20:38:00 Test Item Value Reference Range Interpretation Comments UA Urobilinogen (test code = UA <=1.0 mg/dL 0.1-1.0 Urobilinogen) [facility] AND [id number] 20:38:00 Test Item Value Reference Range Interpretation Comments UA Bacteria (test code = UA Occasional /HPF Bacteria) [facility] AND [id number] 20:38:00 Test Item Value Reference Range Interpretation Comments UA Leuk Est (test code Large *ABN*(02/09/18 = UA Leuk Est) 3:38 PM) [facility] AND [id number] 20:38:00 Test Item Value Reference Range Interpretation Comments UA Sq Epi (test code = UA Sq Epi) Many /LPF [facility] AND [id number] 20:38:00 Test Item Value Reference Range Interpretation Comments UA Nitrite (test code Negative (02/09/18 3:38 = UA Nitrite) PM) [facility] AND [id number] 20:38:00 Test Item Value Reference Range Interpretation Comments UA RBC (test code = 5 See_Comment [Automa mirna message] The UA RBC) system which ge nerated this result transmit mirna reference range : <=2. The reference range was not used to interpr et this result as zahra l/abnormal. [facility] AND [id number] 20:38:00 Test Item Value Reference Range Interpretation Comments UA WBC (test code = 13 See_Comment [Automa mirna message] The UA WBC) system which ge nerated this result transmit mirna reference range : <=5. The reference range was not used to interpr et this result as zahra l/abnormal. [facility] AND [id number] 20:38:00 Test Item Value Reference Range Interpretation Comments UA Glucose (test code = UA Negative mg/dL Glucose) [facility] AND [id number] 20:38:00 Test Item Value Reference Range Interpretation Comments UA Spec Grav (test code = UA Spec 1.015 1 Grav) [facility] AND [id number] 20:38:00 Test Item Value Reference Range Interpretation Comments UA Protein (test code = UA Protein) 30 mg/dL [facility] AND [id number] 20:38:00 Test Item Value Reference Range Interpretation Comments UA pH (test code = UA pH) 5.0 1 5.0-8.0 [facility] AND [id number] 20:38:00 Test Item Value Reference Range Interpretation Comments UA Bili (test code = Negative *NA*(02/09/18 UA Bili) 3:38 PM) [facility] AND [id number] 20:38:00 Test Item Value Reference Range Interpretation Comments UA Ketones (test code = UA Trace mg/dL Ketones) [facility] AND [id number] 20:38:00 Test Item Value Reference Range Interpretation Comments UA Blood (test code = Small *ABN*(02/09/18 UA Blood) 3:38 PM) [facility] AND [id number] 20:38:00 Test Item Value Reference Range Interpretation Comments UA Color (test code = Yellow *NA*(02/09/18 UA Color) 3:38 PM) [facility] AND [id number] 20:38:00 Test Item Value Reference Range Interpretation Comments UA Turbidity (test code Slight *ABN*(02/09/18 = UA Turbidity) 3:38 PM) [facility]:ORDQN:[id number] 20:38:00 Test Item Value Reference Range Interpretation Comments Culture: Urine (test >100,000 CFU/mL code = Culture: Escherichia coli <10,000 Urine) CFU/mL Skin Manasa [facility]:SUSC:PT:ISOLATE:ORDQN:[id number] 20:38:00 Test Item Value Reference Range Interpretation Comments Escherichia coli (test code Escherichia coli = Escherichia coli) [facility] AND [id number] 20:38:00 Test Item Value Reference Range Interpretation Comments UA Urobilinogen (test code = UA <=1.0 mg/dL 0.1-1.0 Urobilinogen) [facility] AND [id number] 20:38:00 Test Item Value Reference Range Interpretation Comments UA Bacteria (test code = UA Occasional /HPF Bacteria) [facility] AND [id number] 20:38:00 Test Item Value Reference Range Interpretation Comments UA Leuk Est (test code Large *ABN*(02/09/18 = UA Leuk Est) 3:38 PM) [facility] AND [id number] 20:38:00 Test Item Value Reference Range Interpretation Comments UA Sq Epi (test code = UA Sq Epi) Many /LPF [facility] AND [id number] 20:38:00 Test Item Value Reference Range Interpretation Comments UA Nitrite (test code Negative (02/09/18 3:38 = UA Nitrite) PM) [facility] AND [id number] 20:38:00 Test Item Value Reference Range Interpretation Comments UA RBC (test code = 5 See_Comment [Automa mirna message] The UA RBC) system which ge nerated this result transmit mirna reference range : <=2. The reference range was not used to interpr et this result as zahra l/abnormal. [facility] AND [id number] 20:38:00 Test Item Value Reference Range Interpretation Comments UA WBC (test code = 13 See_Comment [Automa mirna message] The UA WBC) system which ge nerated this result transmit mirna reference range : <=5. The reference range was not used to interpr et this result as zahra l/abnormal. [facility] AND [id number] 20:38:00 Test Item Value Reference Range Interpretation Comments UA Glucose (test code = UA Negative mg/dL Glucose) [facility] AND [id number] 20:38:00 Test Item Value Reference Range Interpretation Comments UA Spec Grav (test code = UA Spec 1.015 1 Grav) [facility] AND [id number] 20:38:00 Test Item Value Reference Range Interpretation Comments UA Protein (test code = UA Protein) 30 mg/dL [facility] AND [id number] 20:38:00 Test Item Value Reference Range Interpretation Comments UA pH (test code = UA pH) 5.0 1 5.0-8.0 [facility] AND [id number] 20:38:00 Test Item Value Reference Range Interpretation Comments UA Bili (test code = Negative *NA*(02/09/18 UA Bili) 3:38 PM) [facility] AND [id number] 20:38:00 Test Item Value Reference Range Interpretation Comments UA Ketones (test code = UA Trace mg/dL Ketones) [facility] AND [id number] 20:38:00 Test Item Value Reference Range Interpretation Comments UA Blood (test code = Small *ABN*(02/09/18 UA Blood) 3:38 PM) [facility] AND [id number] 20:38:00 Test Item Value Reference Range Interpretation Comments UA Color (test code = Yellow *NA*(02/09/18 UA Color) 3:38 PM) [facility] AND [id number] 20:38:00 Test Item Value Reference Range Interpretation Comments UA Turbidity (test code Slight *ABN*(02/09/18 = UA Turbidity) 3:38 PM) [facility]:PT:ISOLATE:ORDQN:[id number] 20:38:00 Test Item Value Reference Range Interpretation Comments Culture: Urine (test >100,000 CFU/mL code = Culture: Escherichia coli <10,000 Urine) CFU/mL Skin [facility]:SUSC:PT:ISOLATE:ORDQN:[id number] 20:38:00 Test Item Value Reference Range Interpretation Comments Escherichia coli (test code Escherichia coli = Escherichia coli) [facility] AND [id number] 20:38:00 Test Item Value Reference Range Interpretation Comments UA Urobilinogen (test code = UA <=1.0 mg/dL 0.1-1.0 Urobilinogen) [facility] AND [id number] 20:38:00 Test Item Value Reference Range Interpretation Comments UA Bacteria (test code = UA Occasional /HPF Bacteria) [facility] AND [id number] 20:38:00 Test Item Value Reference Range Interpretation Comments UA Leuk Est (test code Large *ABN*(02/09/18 = UA Leuk Est) 3:38 PM) [facility] AND [id number] 20:38:00 Test Item Value Reference Range Interpretation Comments UA Sq Epi (test code = UA Sq Epi) Many /LPF [facility] AND [id number] 20:38:00 Test Item Value Reference Range Interpretation Comments UA Nitrite (test code Negative (02/09/18 3:38 = UA Nitrite) PM) [facility] AND [id number] 20:38:00 Test Item Value Reference Range Interpretation Comments UA RBC (test code = 5 See_Comment [Automa mirna message] The UA RBC) system which ge nerated this result transmit mirna reference range : <=2. The reference range was not used to interpr et this result as zahra l/abnormal. [facility] AND [id number] 20:38:00 Test Item Value Reference Range Interpretation Comments UA WBC (test code = 13 See_Comment [Automa mirna message] The UA WBC) system which ge nerated this result transmit mirna reference range : <=5. The reference range was not used to interpr et this result as zahra l/abnormal. [facility] AND [id number] 20:38:00 Test Item Value Reference Range Interpretation Comments UA Glucose (test code = UA Negative mg/dL Glucose) [facility] AND [id number] 20:38:00 Test Item Value Reference Range Interpretation Comments UA Spec Grav (test code = UA Spec 1.015 1 Grav) [facility] AND [id number] 20:38:00 Test Item Value Reference Range Interpretation Comments UA Protein (test code = UA Protein) 30 mg/dL [facility] AND [id number] 20:38:00 Test Item Value Reference Range Interpretation Comments UA pH (test code = UA pH) 5.0 1 5.0-8.0 [facility] AND [id number] 20:38:00 Test Item Value Reference Range Interpretation Comments UA Bili (test code = Negative *NA*(02/09/18 UA Bili) 3:38 PM) [facility]:SUSC:PT:ISOLATE:ORDQN:[id number] 20:38:00 Test Item Value Reference Range Interpretation Comments Culture: Urine (test >100,000 CFU/mL code = Culture: Escherichia coli <10,000 Urine) CFU/mL Skin Manasa [facility]:SUSC:PT:ISOLATE:ORDQN:[id number] 20:38:00 Test Item Value Reference Range Interpretation Comments Escherichia coli (test code Escherichia coli = Escherichia coli) [facility] AND [id number] 20:38:00 Test Item Value Reference Range Interpretation Comments UA Urobilinogen (test code = UA <=1.0 mg/dL 0.1-1.0 Urobilinogen) [facility] AND [id number] 20:38:00 Test Item Value Reference Range Interpretation Comments UA Bacteria (test code = UA Occasional /HPF Bacteria) [facility] AND [id number] 20:38:00 Test Item Value Reference Range Interpretation Comments UA Leuk Est (test code Large *ABN*(02/09/18 = UA Leuk Est) 3:38 PM) [facility] AND [id number] 20:38:00 Test Item Value Reference Range Interpretation Comments UA Sq Epi (test code = UA Sq Epi) Many /LPF [facility] AND [id number] 20:38:00 Test Item Value Reference Range Interpretation Comments UA Nitrite (test code Negative (02/09/18 3:38 = UA Nitrite) PM) [facility] AND [id number] 20:38:00 Test Item Value Reference Range Interpretation Comments UA RBC (test code = 5 See_Comment [Automa mirna message] The UA RBC) system which ge nerated this result transmit mirna reference range : <=2. The reference range was not used to interpr et this result as zahra l/abnormal. [facility] AND [id number] 20:38:00 Test Item Value Reference Range Interpretation Comments UA Ketones (test code = UA Trace mg/dL Ketones) [facility] AND [id number] 20:38:00 Test Item Value Reference Range Interpretation Comments UA WBC (test code = 13 See_Comment [Automa mirna message] The UA WBC) system which ge nerated this result transmit mirna reference range : <=5. The reference range was not used to interpr et this result as zahra l/abnormal. [facility] AND [id number] 20:38:00 Test Item Value Reference Range Interpretation Comments UA Glucose (test code = UA Negative mg/dL Glucose) [facility] AND [id number] 20:38:00 Test Item Value Reference Range Interpretation Comments UA Spec Grav (test code = UA Spec 1.015 1 Grav) [facility] AND [id number] 20:38:00 Test Item Value Reference Range Interpretation Comments UA Protein (test code = UA Protein) 30 mg/dL [facility] AND [id number] 20:38:00 Test Item Value Reference Range Interpretation Comments UA pH (test code = UA pH) 5.0 1 5.0-8.0 [facility] AND [id number] 20:38:00 Test Item Value Reference Range Interpretation Comments UA Bili (test code = Negative *NA*(02/09/18 UA Bili) 3:38 PM) [facility] AND [id number] 20:38:00 Test Item Value Reference Range Interpretation Comments UA Ketones (test code = UA Trace mg/dL Ketones) [facility] AND [id number] 20:38:00 Test Item Value Reference Range Interpretation Comments UA Blood (test code = Small *ABN*(02/09/18 UA Blood) 3:38 PM) [facility] AND [id number] 20:38:00 Test Item Value Reference Range Interpretation Comments UA Color (test code = Yellow *NA*(02/09/18 UA Color) 3:38 PM) [facility] AND [id number] 20:38:00 Test Item Value Reference Range Interpretation Comments UA Turbidity (test code Slight *ABN*(02/09/18 = UA Turbidity) 3:38 PM) [facility] AND [id number] 20:38:00 Test Item Value Reference Range Interpretation Comments UA Blood (test code = Small *ABN*(02/09/18 UA Blood) 3:38 PM) [facility] AND [id number] 20:38:00 Test Item Value Reference Range Interpretation Comments UA Color (test code = Yellow *NA*(02/09/18 UA Color) 3:38 PM) [facility] AND [id number] 20:38:00 Test Item Value Reference Range Interpretation Comments UA Turbidity (test code Slight *ABN*(02/09/18 = UA Turbidity) 3:38 PM) [facility]:SUSC:PT:ISOLATE:ORDQN:[id number] 20:38:00 Test Item Value Reference Range Interpretation Comments Culture: Urine (test >100,000 CFU/mL code = Culture: Escherichia coli <10,000 Urine) CFU/mL Skin Manasa [facility]:SUSC:PT:ISOLATE:ORDQN:[id number] 20:38:00 Test Item Value Reference Range Interpretation Comments Escherichia coli (test code Escherichia coli = Escherichia coli) [facility] AND [id number] 20:38:00 Test Item Value Reference Range Interpretation Comments UA Urobilinogen (test code = UA <=1.0 mg/dL 0.1-1.0 Urobilinogen) [facility] AND [id number] 20:38:00 Test Item Value Reference Range Interpretation Comments UA Bacteria (test code = UA Occasional /HPF Bacteria) [facility] AND [id number] 20:38:00 Test Item Value Reference Range Interpretation Comments UA Leuk Est (test code Large *ABN*(02/09/18 = UA Leuk Est) 3:38 PM) [facility] AND [id number] 20:38:00 Test Item Value Reference Range Interpretation Comments UA Sq Epi (test code = UA Sq Epi) Many /LPF [facility] AND [id number] 20:38:00 Test Item Value Reference Range Interpretation Comments UA Nitrite (test code Negative (02/09/18 3:38 = UA Nitrite) PM) [facility] AND [id number] 20:38:00 Test Item Value Reference Range Interpretation Comments UA RBC (test code = 5 See_Comment [Automa mirna message] The UA RBC) system which ge nerated this result transmit mirna reference range : <=2. The reference range was not used to interpr et this result as zahra l/abnormal. [facility] AND [id number] 20:38:00 Test Item Value Reference Range Interpretation Comments UA WBC (test code = 13 See_Comment [Automa mirna message] The UA WBC) system which ge nerated this result transmit mirna reference range : <=5. The reference range was not used to interpr et this result as zahra l/abnormal. [facility] AND [id number] 20:38:00 Test Item Value Reference Range Interpretation Comments UA Glucose (test code = UA Negative mg/dL Glucose) [facility] AND [id number] 20:38:00 Test Item Value Reference Range Interpretation Comments UA Spec Grav (test code = UA Spec 1.015 1 Grav) [facility] AND [id number] 20:38:00 Test Item Value Reference Range Interpretation Comments UA Protein (test code = UA Protein) 30 mg/dL [facility] AND [id number] 20:38:00 Test Item Value Reference Range Interpretation Comments UA pH (test code = UA pH) 5.0 1 5.0-8.0 [facility] AND [id number] 20:38:00 Test Item Value Reference Range Interpretation Comments UA Bili (test code = Negative *NA*(02/09/18 UA Bili) 3:38 PM) [facility] AND [id number] 20:38:00 Test Item Value Reference Range Interpretation Comments UA Ketones (test code = UA Trace mg/dL Ketones) [facility] AND [id number] 20:38:00 Test Item Value Reference Range Interpretation Comments UA Blood (test code = Small *ABN*(02/09/18 UA Blood) 3:38 PM) [facility] AND [id number] 20:38:00 Test Item Value Reference Range Interpretation Comments UA Color (test code = Yellow *NA*(02/09/18 UA Color) 3:38 PM) [facility] AND [id number] 20:38:00 Test Item Value Reference Range Interpretation Comments UA Turbidity (test code Slight *ABN*(02/09/18 = UA Turbidity) 3:38 PM) [id number] 15:30:00 Test Item Value Reference Range Interpretation Comments Monocytes # (test code 0.4 See_Comment [Aut omated message] The = Monocytes #) system which generated this result tra nsmitted reference range : <=0.8. The reference r chuck was not used to int erpret this result as normal/abnormal . [facility] H[id number] 15:30:00 Test Item Value Reference Range Interpretation Comments Eosinophils # (test code 0.4 See_Comment [A utomated message] The = Eosinophils #) system whic h generated this result tra nsmitted reference range : <=0.5. The reference r chuck was not used to int erpret this result as normal/abnormal . [facility] HospitalJmnytsaGBITJIJADY8821-04-60 15:30:00 Test Item Value Reference Range Interpretation Comments Lymphocytes # (test code = Lymphocytes 2.1 1.0-5.5 #) [facility] H[id number] 15:30:00 Test Item Value Reference Range Interpretation Comments Neutrophils # (test code = Neutrophils 5.3 1.5-8.1 #) [facility] Ho[id number] 15:30:00 Test Item Value Reference Range Interpretation Comments Plt Morph (test code = Normal (01/25/18 10:30 Plt Morph) AM) [facility] Ho[id number] 15:30:00 Test Item Value Reference Range Interpretation Comments Basophils # (test code 0.0 See_Comment [Aut omated message] The = Basophils #) system which generated this result tra nsmitted reference range : <=0.2. The reference r chuck was not used to int erpret this result as normal/abnormal . [facility] H[id number] 15:30:00 Test Item Value Reference Range Interpretation Comments Basophils (test code = 0.5 See_Comment [Aut omated message] The Basophils) system which ge nerated this result tra nsmitted reference range : <=1.0. The reference r chuck was not used to int erpret this result as normal/abnormal . [facility] HospitalAlgdkxsLVYXDCVHEX6526-13-12 15:30:00 Test Item Value Reference Range Interpretation Comments Eosinophils (test code = 5.4 See_Comment [A utomated message] The Eosinophils) system which ge nerated this result tra nsmitted reference range : <=4.0. The reference r chuck was not used to int erpret this result as normal/abnormal . [facility] H[id number] 15:30:00 Test Item Value Reference Range Interpretation Comments RBC Morph (test code = Normal (01/25/18 10:30 RBC Morph) AM) [facility] Ho[id number] 15:30:00 Test Item Value Reference Range Interpretation Comments Segs (test code = Segs) 64.1 45.0-75.0 [facility] Hos[id number] 15:30:00 Test Item Value Reference Range Interpretation Comments Lymphocytes (test code = Lymphocytes) 25.5 20.0-40.0 [facility] Ho[id number] 15:30:00 Test Item Value Reference Range Interpretation Comments Monocytes (test code = Monocytes) 4.5 2.0-12.0 [facility] H[id number] 15:30:00 Test Item Value Reference Range Interpretation Comments MCV (test code = MCV) 94.9 80.0-98.0 [facility] HospitalXnbnbwpUORWWYIIGC7501-03-82 15:30:00 Test Item Value Reference Range Interpretation Comments MCH (test code = MCH) 31.3 pg 27.0-31.0 [facility] Hos[id number] 15:30:00 Test Item Value Reference Range Interpretation Comments MCHC (test code = MCHC) 33.0 32.0-36.0 [facility] Hos[id number] 15:30:00 Test Item Value Reference Range Interpretation Comments RDW (test code = RDW) 12.9 11.5-14.5 [facility] HospitalXaejmzcCVNWKVDCFL4562-16-48 15:30:00 Test Item Value Reference Range Interpretation Comments Platelet (test code = Platelet) 350 133-450 [facility] Ho[id number] 15:30:00 Test Item Value Reference Range Interpretation Comments MPV (test code = MPV) 8.8 7.4-10.4 [facility] HospitalApgtgpjICFBCAVRPZ7880-38-53 15:30:00 Test Item Value Reference Range Interpretation Comments WBC (test code = WBC) 8.3 3.7-10.4 [facility] HospitalTafgtknSIGZSADRJO5928-33-48 15:30:00 Test Item Value Reference Range Interpretation Comments RBC (test code = RBC) 4.09 4.20-5.40 [facility] HospitalRpbnnmsBXBAZLYPHE3442-64-60 15:30:00 Test Item Value Reference Range Interpretation Comments Hct (test code = Hct) 38.8 36.0-48.0 [facility] HospitalHahhltoPJKLVFWZYJ3090-17-30 15:30:00 Test Item Value Reference Range Interpretation Comments Hgb (test code = Hgb) 12.8 12.0-16.0 [id number] 15:30:00 Test Item Value Reference Range Interpretation Comments AGAP (test code = AGAP) 12.8 10.0-20.0 [facility][id number] 15:30:00 Test Item Value Reference Range Interpretation Comments A/G Ratio (test code = A/G Ratio) 0.8 1 0.7-1.6 [facility]awRvrezdiMFOGFPTUHIQZ6761-09-21 15:30:00 Test Item Value Reference Range Interpretation Comments B/C Ratio (test code = B/C Ratio) 14 1 6-25 [facility]aw[id number] 15:30:00 Test Item Value Reference Range Interpretation Comments Globulin (test code = Globulin) 4.3 2.7-4.2 [facility]awWcvlrzcYJXGNLKVTPYU3243-45-01 15:30:00 Test Item Value Reference Range Interpretation Comments eGFR (test code = eGFR) 72 [facility]awWsqlmvmMAYHCSSDBLEM1828-89-95 15:30:00 Test Item Value Reference Range Interpretation Comments Glucose Lvl (test code = Glucose Lvl) 86 70-99 [facility]CkecoyxBYYMADZHEROT6342-71-40 15:30:00 Test Item Value Reference Range Interpretation Comments Creatinine Lvl (test code = Creatinine 0.94 0.50-1.40 Lvl) [facility]awHccyjliNDXCOUCOMXUK7993-50-27 15:30:00 Test Item Value Reference Range Interpretation Comments BUN (test code = BUN) 13 7-22 [facility]awVsklaciZATDGWTZBXYR8230-58-61 15:30:00 Test Item Value Reference Range Interpretation Comments Bili Total (test code = Bili Total) 0.4 0.2-1.3 [facility]IerldwbOOVMFDXGDNMZ0346-43-05 15:30:00 Test Item Value Reference Range Interpretation Comments Potassium Lvl (test code = Potassium 3.8 3.5-5.1 Lvl) [facility]awQhajpkyNBNBBFPVAOJM3153-13-71 15:30:00 Test Item Value Reference Range Interpretation Comments Sodium Lvl (test code = Sodium Lvl) 140 135-145 [facility]awJunstbpPYNUHGQGFFQH6979-32-09 15:30:00 Test Item Value Reference Range Interpretation Comments Calcium Lvl (test code = Calcium Lvl) 9.1 8.5-10.5 [facility]awMadojzxEFRZFEMDUPAI0602-78-57 15:30:00 Test Item Value Reference Range Interpretation Comments Chloride Lvl (test code = Chloride Lvl) 109 95-109 [facility]awDosiulhUYVDXODAPTJL9075-68-47 15:30:00 Test Item Value Reference Range Interpretation Comments Alk Phos (test code = Alk Phos) 78 39-136 [facility]awKrejoauRZTGSISRTAKZ7378-56-51 15:30:00 Test Item Value Reference Range Interpretation Comments ALT (test code = ALT) 16 See_Comment [Auto mated message] The system which ge nerated this result transmit mirna reference range : <=65. The reference range was not used to interpr et this result as zahra l/abnormal. [facility]awMezpfitUKUORQRSBRSQ5546-99-01 15:30:00 Test Item Value Reference Range Interpretation Comments AST (test code = AST) 26 See_Comment [Auto mated message] The system which ge nerated this result transmit mirna reference range : <=37. The reference range was not used to interpr et this result as zahra l/abnormal. [facility]awEwlzomoGADDITDKGOYB4800-07-50 15:30:00 Test Item Value Reference Range Interpretation Comments Albumin Lvl (test code = Albumin Lvl) 3.6 3.5-5.0 [facility]awDhwwyidAHYOGJKTOKPX3286-42-28 15:30:00 Test Item Value Reference Range Interpretation Comments Total Protein (test code = Total 7.9 6.4-8.4 Protein) [facility]awDaphhqvCUYTIRZHBBJF7529-19-34 15:30:00 Test Item Value Reference Range Interpretation Comments CO2 (test code = CO2) [place] [id number] 15:30:00 Test Item Value Reference Range Interpretation Comments S Preg (test code = S Negative *NA*(01/25/18 Preg) 10:30 AM) [facility] HospitalLikhoglKOWWQITNTR4824-49-42 15:30:00 Test Item Value Reference Range Interpretation Comments Monocytes # (test code 0.4 See_Comment [Aut omated message] The = Monocytes #) system which generated this result tra nsmitted reference range : <=0.8. The reference r chuck was not used to int erpret this result as normal/abnormal . [facility] HospitalXxeblycVCMIKCHBRD7062-00-81 15:30:00 Test Item Value Reference Range Interpretation Comments Eosinophils # (test code 0.4 See_Comment [A utomated message] The = Eosinophils #) system whic h generated this result tra nsmitted reference range : <=0.5. The reference r chuck was not used to int erpret this result as normal/abnormal . [facility] HospitalCmfmwbsKOFHDOMCHQ5611-90-06 15:30:00 Test Item Value Reference Range Interpretation Comments Lymphocytes # (test code = Lymphocytes 2.1 1.0-5.5 #) [facility] HospitalTogcbauLQGFZGDWUA4750-50-66 15:30:00 Test Item Value Reference Range Interpretation Comments Neutrophils # (test code = Neutrophils 5.3 1.5-8.1 #) [facility] HospitalXoxrhwcISJYWRGWVW7971-83-22 15:30:00 Test Item Value Reference Range Interpretation Comments Plt Morph (test code = Normal (01/25/18 10:30 Plt Morph) AM) [facility] HospitalYurzjhfVTQJHZKZYZ6041-17-41 15:30:00 Test Item Value Reference Range Interpretation Comments Basophils # (test code 0.0 See_Comment [Aut omated message] The = Basophils #) system which generated this result tra nsmitted reference range : <=0.2. The reference r chuck was not used to int erpret this result as normal/abnormal . [facility] HospitalSofyimxQXKKPVGIRA1429-47-49 15:30:00 Test Item Value Reference Range Interpretation Comments Basophils (test code = 0.5 See_Comment [Aut omated message] The Basophils) system which ge nerated this result tra nsmitted reference range : <=1.0. The reference r chuck was not used to int erpret this result as normal/abnormal . [facility] HospitalGgqwthbFSYXKARCXZ5029-05-59 15:30:00 Test Item Value Reference Range Interpretation Comments Eosinophils (test code = 5.4 See_Comment [A utomated message] The Eosinophils) system which ge nerated this result tra nsmitted reference range : <=4.0. The reference r chuck was not used to int erpret this result as normal/abnormal . [facility] HospitalIbrgmjbRTGYQDVVEJ8684-50-36 15:30:00 Test Item Value Reference Range Interpretation Comments RBC Morph (test code = Normal (01/25/18 10:30 RBC Morph) AM) [facility] HospitalQkzxxhqJNIDIZLJJG6832-69-33 15:30:00 Test Item Value Reference Range Interpretation Comments Segs (test code = Segs) 64.1 45.0-75.0 [facility] HospitalXuvqdttJDSNGXZZPM1166-22-18 15:30:00 Test Item Value Reference Range Interpretation Comments Lymphocytes (test code = Lymphocytes) 25.5 20.0-40.0 [facility] HospitalKjnctohWQOWXOYXBO9475-99-36 15:30:00 Test Item Value Reference Range Interpretation Comments Monocytes (test code = Monocytes) 4.5 2.0-12.0 [facility] HospitalMypzwhnNICZGQWKXI3983-10-85 15:30:00 Test Item Value Reference Range Interpretation Comments MCV (test code = MCV) 94.9 80.0-98.0 [facility] HospitalYyvjlliLMTYFILBON9179-39-64 15:30:00 Test Item Value Reference Range Interpretation Comments MCH (test code = MCH) 31.3 pg 27.0-31.0 [facility] HospitalAigjryeFPJQERVKCN4573-67-93 15:30:00 Test Item Value Reference Range Interpretation Comments MCHC (test code = MCHC) 33.0 32.0-36.0 [facility] HospitalOnzesosQQIRHQFPYG9724-19-71 15:30:00 Test Item Value Reference Range Interpretation Comments RDW (test code = RDW) 12.9 11.5-14.5 [facility] HospitalPhkynryUNEGDRZNXK5464-06-69 15:30:00 Test Item Value Reference Range Interpretation Comments Platelet (test code = Platelet) 350 133-450 [facility] HospitalSyajgpqGKTRQBQREQ3844-27-84 15:30:00 Test Item Value Reference Range Interpretation Comments MPV (test code = MPV) 8.8 7.4-10.4 [facility] HospitalAipbmekJLGNBCQIMF3141-00-66 15:30:00 Test Item Value Reference Range Interpretation Comments WBC (test code = WBC) 8.3 3.7-10.4 [facility] HospitalUswgzwsRBEFMTVSVD3153-08-49 15:30:00 Test Item Value Reference Range Interpretation Comments RBC (test code = RBC) 4.09 4.20-5.40 [facility] HospitalSmozlwtPRJFUDSHPU6163-80-57 15:30:00 Test Item Value Reference Range Interpretation Comments Hct (test code = Hct) 38.8 36.0-48.0 [facility] HospitalYittlquWFBKUJFANP0188-93-82 15:30:00 Test Item Value Reference Range Interpretation Comments Hgb (test code = Hgb) 12.8 12.0-16.0 [facility]awZqttwwcXMZCBDNZHYXX1628-44-57 15:30:00 Test Item Value Reference Range Interpretation Comments AGAP (test code = AGAP) 12.8 10.0-20.0 [facility]awPeoyuyzXJZMWHJGPPRM4636-90-10 15:30:00 Test Item Value Reference Range Interpretation Comments A/G Ratio (test code = A/G Ratio) 0.8 1 0.7-1.6 [facility]awVznwwniNIRILWGNGBKP7549-16-32 15:30:00 Test Item Value Reference Range Interpretation Comments B/C Ratio (test code = B/C Ratio) 14 1 6-25 [facility]awIryldueSZMASDIBOMXG8902-64-33 15:30:00 Test Item Value Reference Range Interpretation Comments Globulin (test code = Globulin) 4.3 2.7-4.2 [facility]awJximftrSMVUYZZXLMNO1319-78-28 15:30:00 Test Item Value Reference Range Interpretation Comments eGFR (test code = eGFR) 72 [facility]awMkhlgxjFEGQILMDNONZ8694-51-11 15:30:00 Test Item Value Reference Range Interpretation Comments Glucose Lvl (test code = Glucose Lvl) 86 70-99 [facility]awZlssliwGXCXTMLDYGOW6020-30-66 15:30:00 Test Item Value Reference Range Interpretation Comments Creatinine Lvl (test code = Creatinine 0.94 0.50-1.40 Lvl) [facility]awIzevqcdPLQASHHFKCMW3752-67-12 15:30:00 Test Item Value Reference Range Interpretation Comments BUN (test code = BUN) 13 7-22 [facility]awRszqubzEEVRRONPXHWH2661-09-61 15:30:00 Test Item Value Reference Range Interpretation Comments Bili Total (test code = Bili Total) 0.4 0.2-1.3 [facility]awQolebjrUQXPQHRHSDGJ9355-97-23 15:30:00 Test Item Value Reference Range Interpretation Comments Potassium Lvl (test code = Potassium 3.8 3.5-5.1 Lvl) [facility]awEoiugnjKXVBOVBRSHFU9719-48-69 15:30:00 Test Item Value Reference Range Interpretation Comments Sodium Lvl (test code = Sodium Lvl) 140 135-145 [facility]awOadethrZQMOSDRHPAHN3683-95-23 15:30:00 Test Item Value Reference Range Interpretation Comments Calcium Lvl (test code = Calcium Lvl) 9.1 8.5-10.5 [facility]awNrwicftOAVMTYFBRJQS5944-37-62 15:30:00 Test Item Value Reference Range Interpretation Comments Chloride Lvl (test code = Chloride Lvl) 109 95-109 [facility]awVlwyoxjEPZUZIACCROM8166-43-82 15:30:00 Test Item Value Reference Range Interpretation Comments Alk Phos (test code = Alk Phos) 78 39-136 [facility]awWrxrvvrZJVOGACPLVSU7302-11-38 15:30:00 Test Item Value Reference Range Interpretation Comments ALT (test code = ALT) 16 See_Comment [Auto mated message] The system which ge nerated this result transmit mirna reference range : <=65. The reference range was not used to interpr et this result as zahra l/abnormal. [facility]awIgptchrHPHJSZBWITUQ6016-91-88 15:30:00 Test Item Value Reference Range Interpretation Comments AST (test code = AST) 26 See_Comment [Auto mated message] The system which ge nerated this result transmit mirna reference range : <=37. The reference range was not used to interpr et this result as zahra l/abnormal. [facility]awXrpbnshSVDDDGKMOSTB9111-42-86 15:30:00 Test Item Value Reference Range Interpretation Comments Albumin Lvl (test code = Albumin Lvl) 3.6 3.5-5.0 [facility]awEdalqucTDYFPUTLYIBU7933-56-02 15:30:00 Test Item Value Reference Range Interpretation Comments Total Protein (test code = Total 7.9 6.4-8.4 Protein) [facility]awMmwudanDOEXZKMQGBJS3219-86-25 15:30:00 Test Item Value Reference Range Interpretation Comments CO2 (test code = CO2) - [place] [id number] 15:30:00 Test Item Value Reference Range Interpretation Comments S Preg (test code = S Negative *NA*(01/25/18 Preg) 10:30 AM) [facility] HospitalRebdfnsLZSJEAHYSH2210-00-66 15:30:00 Test Item Value Reference Range Interpretation Comments Monocytes # (test code 0.4 See_Comment [Aut omated message] The = Monocytes #) system which generated this result tra nsmitted reference range : <=0.8. The reference r chuck was not used to int erpret this result as normal/abnormal . [facility] HospitalVxnnpetUUQQVMXLAH2817-58-67 15:30:00 Test Item Value Reference Range Interpretation Comments Eosinophils # (test code 0.4 See_Comment [A utomated message] The = Eosinophils #) system whic h generated this result tra nsmitted reference range : <=0.5. The reference r chuck was not used to int erpret this result as normal/abnormal . [facility] HospitalQnxinarOQTPCGZHUJ2587-90-38 15:30:00 Test Item Value Reference Range Interpretation Comments Lymphocytes # (test code = Lymphocytes 2.1 1.0-5.5 #) [facility] HospitalYvcqeuyYVSGCLKFBW0060-28-42 15:30:00 Test Item Value Reference Range Interpretation Comments Neutrophils # (test code = Neutrophils 5.3 1.5-8.1 #) [facility] HospitalHcjtczuLOMBARFNHS6557-46-17 15:30:00 Test Item Value Reference Range Interpretation Comments Plt Morph (test code = Normal (01/25/18 10:30 Plt Morph) AM) [facility] HospitalYudxshkEEZICJSKYX4175-81-00 15:30:00 Test Item Value Reference Range Interpretation Comments Basophils # (test code 0.0 See_Comment [Aut omated message] The = Basophils #) system which generated this result tra nsmitted reference range : <=0.2. The reference r chuck was not used to int erpret this result as normal/abnormal . [facility] HospitalKkqjzqkBACGGXVMUR9673-45-27 15:30:00 Test Item Value Reference Range Interpretation Comments Basophils (test code = 0.5 See_Comment [Aut omated message] The Basophils) system which ge nerated this result tra nsmitted reference range : <=1.0. The reference r chuck was not used to int erpret this result as normal/abnormal . [facility] HospitalJhsaagrPGHKTBZXHN5845-25-92 15:30:00 Test Item Value Reference Range Interpretation Comments Eosinophils (test code = 5.4 See_Comment [A utomated message] The Eosinophils) system which ge nerated this result tra nsmitted reference range : <=4.0. The reference r chuck was not used to int erpret this result as normal/abnormal . [facility] HospitalKowdtucKPMYRKUJEZ0742-05-35 15:30:00 Test Item Value Reference Range Interpretation Comments RBC Morph (test code = Normal (01/25/18 10:30 RBC Morph) AM) [facility] HospitalTeehlwwEVWBUIUQRQ5690-68-19 15:30:00 Test Item Value Reference Range Interpretation Comments Segs (test code = Segs) 64.1 45.0-75.0 [facility] HospitalKaddlooEGAQPMVFYL4286-70-85 15:30:00 Test Item Value Reference Range Interpretation Comments Lymphocytes (test code = Lymphocytes) 25.5 20.0-40.0 [facility] HospitalVetesjxATVAEEDBDA8766-12-06 15:30:00 Test Item Value Reference Range Interpretation Comments Monocytes (test code = Monocytes) 4.5 2.0-12.0 [facility] HospitalRojnmshMHSUDCZYMD8555-93-38 15:30:00 Test Item Value Reference Range Interpretation Comments MCV (test code = MCV) 94.9 80.0-98.0 [facility] HospitalYbnlhidJXLGVJTXRA7968-00-03 15:30:00 Test Item Value Reference Range Interpretation Comments MCH (test code = MCH) 31.3 pg 27.0-31.0 [facility] HospitalXahrmqfANLGLTAYIZ8623-01-79 15:30:00 Test Item Value Reference Range Interpretation Comments MCHC (test code = MCHC) 33.0 32.0-36.0 [facility] HospitalBxdxazoLTCSHEHVYZ1377-46-26 15:30:00 Test Item Value Reference Range Interpretation Comments RDW (test code = RDW) 12.9 11.5-14.5 [facility] HospitalDlqqhwjYEODLBSWIK6840-46-64 15:30:00 Test Item Value Reference Range Interpretation Comments Platelet (test code = Platelet) 350 133-450 [facility] HospitalDwwjnrsDUTXITIXRQ1730-28-85 15:30:00 Test Item Value Reference Range Interpretation Comments MPV (test code = MPV) 8.8 7.4-10.4 [facility] HospitalQzochbgGOHWIMNHDD1755-17-65 15:30:00 Test Item Value Reference Range Interpretation Comments WBC (test code = WBC) 8.3 3.7-10.4 [facility] HospitalWmsilfrQHKSUGFWDI6366-27-79 15:30:00 Test Item Value Reference Range Interpretation Comments RBC (test code = RBC) 4.09 4.20-5.40 [facility] HospitalVepopgfCRAYTIPHST3894-42-65 15:30:00 Test Item Value Reference Range Interpretation Comments Hct (test code = Hct) 38.8 36.0-48.0 [facility] HospitalTyfscuxGCACONPQJY6073-72-26 15:30:00 Test Item Value Reference Range Interpretation Comments Hgb (test code = Hgb) 12.8 12.0-16.0 [facility]KxajutjVQFWUMJSQQTB3496-80-14 15:30:00 Test Item Value Reference Range Interpretation Comments AGAP (test code = AGAP) 12.8 10.0-20.0 [facility]awOtobzxnFRKRVYUIZFAI7100-58-99 15:30:00 Test Item Value Reference Range Interpretation Comments A/G Ratio (test code = A/G Ratio) 0.8 1 0.7-1.6 [facility]awNkpnwygJAIGRHCWLOPG4601-79-49 15:30:00 Test Item Value Reference Range Interpretation Comments B/C Ratio (test code = B/C Ratio) 14 1 6-25 [facility]awSigxiynAQXRNNQYOAGA1707-10-63 15:30:00 Test Item Value Reference Range Interpretation Comments Globulin (test code = Globulin) 4.3 2.7-4.2 [facility]awWqkvmfvWDFLUCTQOLDX1041-24-70 15:30:00 Test Item Value Reference Range Interpretation Comments eGFR (test code = eGFR) 72 [facility]KtrrcvuSSWIAAUTDTAF7598-35-36 15:30:00 Test Item Value Reference Range Interpretation Comments Glucose Lvl (test code = Glucose Lvl) 86 70-99 [facility]awPhcmzpoZDQPJPPDSAXH8663-54-20 15:30:00 Test Item Value Reference Range Interpretation Comments Creatinine Lvl (test code = Creatinine 0.94 0.50-1.40 Lvl) [facility]awJcyjhjqCUHNSNDCBQSF9482-08-47 15:30:00 Test Item Value Reference Range Interpretation Comments BUN (test code = BUN) 13 7-22 [facility]awNhmxtcqWYBDZKAUMOZR6364-78-86 15:30:00 Test Item Value Reference Range Interpretation Comments Bili Total (test code = Bili Total) 0.4 0.2-1.3 [facility]awQhwljelWXRPNCQVAEFX8751-91-67 15:30:00 Test Item Value Reference Range Interpretation Comments Potassium Lvl (test code = Potassium 3.8 3.5-5.1 Lvl) [facility]awBghcrkmCBCFDADVOPRZ9805-02-31 15:30:00 Test Item Value Reference Range Interpretation Comments Sodium Lvl (test code = Sodium Lvl) 140 135-145 [facility]awGbewjekFFCEZLARDYFG1962-80-70 15:30:00 Test Item Value Reference Range Interpretation Comments Calcium Lvl (test code = Calcium Lvl) 9.1 8.5-10.5 [facility]awZdawvaqMLFGGOFUSXNW2711-83-09 15:30:00 Test Item Value Reference Range Interpretation Comments Chloride Lvl (test code = Chloride Lvl) 109 95-109 [facility]awGaprqjfWRRBZRLDFJTI9351-78-52 15:30:00 Test Item Value Reference Range Interpretation Comments Alk Phos (test code = Alk Phos) 78 39-136 [facility]awNquafujHGQONBTAJLJV3878-85-56 15:30:00 Test Item Value Reference Range Interpretation Comments ALT (test code = ALT) 16 See_Comment [Auto mated message] The system which ge nerated this result transmit mirna reference range : <=65. The reference range was not used to interpr et this result as zahra l/abnormal. [facility]awScdxaypKOFQXMKXLIZB8644-44-01 15:30:00 Test Item Value Reference Range Interpretation Comments AST (test code = AST) 26 See_Comment [Auto mated message] The system which ge nerated this result transmit mirna reference range : <=37. The reference range was not used to interpr et this result as zahra l/abnormal. [facility]awEwzljhlARXPWWFVYKWV1549-84-89 15:30:00 Test Item Value Reference Range Interpretation Comments Albumin Lvl (test code = Albumin Lvl) 3.6 3.5-5.0 [facility]awDqsurcxRLWSFFQAJARB2793-49-01 15:30:00 Test Item Value Reference Range Interpretation Comments Total Protein (test code = Total 7.9 6.4-8.4 Protein) [facility]awRfucdbeTTRPZCVQFIBP9542-06-06 15:30:00 Test Item Value Reference Range Interpretation Comments CO2 (test code = CO2) 22 -32 [place] [id number] 15:30:00 Test Item Value Reference Range Interpretation Comments S Preg (test code = S Negative *NA*(01/25/18 Preg) 10:30 AM) [facility] HospitalYacapcsVGQCYXXEKX5717-62-01 15:30:00 Test Item Value Reference Range Interpretation Comments Monocytes # (test code 0.4 See_Comment [Aut omated message] The = Monocytes #) system which generated this result tra nsmitted reference range : <=0.8. The reference r chuck was not used to int erpret this result as normal/abnormal . [facility] HospitalHfungqbYZQXJKHONI9019-11-24 15:30:00 Test Item Value Reference Range Interpretation Comments Eosinophils # (test code 0.4 See_Comment [A utomated message] The = Eosinophils #) system whic h generated this result tra nsmitted reference range : <=0.5. The reference r chuck was not used to int erpret this result as normal/abnormal . [facility] HospitalUwfesuxZNKEIBPXZS1652-85-98 15:30:00 Test Item Value Reference Range Interpretation Comments Lymphocytes # (test code = Lymphocytes 2.1 1.0-5.5 #) [facility] HospitalQbwlsqtISLJAYTJMO6889-54-97 15:30:00 Test Item Value Reference Range Interpretation Comments Neutrophils # (test code = Neutrophils 5.3 1.5-8.1 #) [facility] HospitalBixuvtkUAWICLISVY9810-87-43 15:30:00 Test Item Value Reference Range Interpretation Comments Plt Morph (test code = Normal (01/25/18 10:30 Plt Morph) AM) [facility] HospitalSajaybwHDIHNWQIIA8864-04-95 15:30:00 Test Item Value Reference Range Interpretation Comments Basophils # (test code 0.0 See_Comment [Aut omated message] The = Basophils #) system which generated this result tra nsmitted reference range : <=0.2. The reference r chuck was not used to int erpret this result as normal/abnormal . [facility] HospitalJupspgzCMLUOSYWTK0845-37-74 15:30:00 Test Item Value Reference Range Interpretation Comments Basophils (test code = 0.5 See_Comment [Aut omated message] The Basophils) system which ge nerated this result tra nsmitted reference range : <=1.0. The reference r chuck was not used to int erpret this result as normal/abnormal . [facility] HospitalYgmllkfGXTTAJYSVG0383-46-60 15:30:00 Test Item Value Reference Range Interpretation Comments Eosinophils (test code = 5.4 See_Comment [A utomated message] The Eosinophils) system which ge nerated this result tra nsmitted reference range : <=4.0. The reference r chuck was not used to int erpret this result as normal/abnormal . [facility] HospitalStkihexBUOPLTWVJZ9200-51-61 15:30:00 Test Item Value Reference Range Interpretation Comments RBC Morph (test code = Normal (01/25/18 10:30 RBC Morph) AM) [facility] HospitalMocbkgtDGUXDBHTJI5656-07-57 15:30:00 Test Item Value Reference Range Interpretation Comments Segs (test code = Segs) 64.1 45.0-75.[address] [facility]KiedyhjRJMWSZFKVIRV7341-63-00 15:30:00 Test Item Value Reference Range Interpretation Comments AGAP (test code = AGAP) 12.8 10.0-20.[address] [facility] HospitalDgbhmapODCXLGUXAE6000-19-28 15:30:00 Test Item Value Reference Range Interpretation Comments Lymphocytes (test code = Lymphocytes) 25.5 20.0-40.[address] [facility] HospitalHpwhmdnCRBPYFTINR9352-71-34 15:30:00 Test Item Value Reference Range Interpretation Comments Monocytes (test code = Monocytes) 4.5 2.0-12.[address] [facility] HospitalBbyqoilODOESRVKCJ0331-45-50 15:30:00 Test Item Value Reference Range Interpretation Comments MCV (test code = MCV) 94.9 80.0-98.[address] [facility] HospitalLtntoqpVTSEDRIZQY6225-22-75 15:30:00 Test Item Value Reference Range Interpretation Comments MCH (test code = MCH) 31.3 pg 27.0-31.[address] [facility] HospitalIdlvojrCIRITXBJLH5146-73-78 15:30:00 Test Item Value Reference Range Interpretation Comments MCHC (test code = MCHC) 33.0 32.0-36.0 [facility] HospitalVeuzcmzHAABLSYHGF3103-07-51 15:30:00 Test Item Value Reference Range Interpretation Comments RDW (test code = RDW) 12.9 11.5-14.5 [facility] HospitalOvhxmjdXMRTGLLZJB3169-17-93 15:30:00 Test Item Value Reference Range Interpretation Comments Platelet (test code = Platelet) 350 133-450 [facility] HospitalRkyhqqwGKUDWLEIRL8062-28-59 15:30:00 Test Item Value Reference Range Interpretation Comments MPV (test code = MPV) 8.8 7.4-10.4 [facility] HospitalLnlekvsASIPULYPMC8438-15-24 15:30:00 Test Item Value Reference Range Interpretation Comments WBC (test code = WBC) 8.3 3.7-10.4 [facility] HospitalQassvnuEMBJYTLJJH5827-35-95 15:30:00 Test Item Value Reference Range Interpretation Comments RBC (test code = RBC) 4.09 4.20-5.40 [facility]YrxzukuPZKEODLVVBTV6411-44-15 15:30:00 Test Item Value Reference Range Interpretation Comments A/G Ratio (test code = A/G Ratio) 0.8 1 0.7-1.6 [facility] [facility]GF1108-23-05 15:30:00 Test Item Value Reference Range Interpretation Comments Hct (test code = Hct) 38.8 36.0-48.0 [facility] HospitalUxesruuAHTWCEPPYQ4923-85-44 15:30:00 Test Item Value Reference Range Interpretation Comments Hgb (test code = Hgb) 12.8 12.0-16.0 [facility]CaszehlLDRFCBOSFGHN7480-07-36 15:30:00 Test Item Value Reference Range Interpretation Comments B/C Ratio (test code = B/C Ratio) 14 1 6-25 [facility]awZglfmmzPSFZEGWXJMOF8911-51-32 15:30:00 Test Item Value Reference Range Interpretation Comments Globulin (test code = Globulin) 4.3 2.7-4.2 [facility]awFgyarlxPYJBBTUWLKOB5742-92-84 15:30:00 Test Item Value Reference Range Interpretation Comments eGFR (test code = eGFR) 72 [facility]MpzqgkhSBWDGMODRNRN9498-75-23 15:30:00 Test Item Value Reference Range Interpretation Comments Glucose Lvl (test code = Glucose Lvl) 86 70-99 [facility]awKffxeljKWKNIGNINAIX5070-64-75 15:30:00 Test Item Value Reference Range Interpretation Comments Creatinine Lvl (test code = Creatinine 0.94 0.50-1.40 Lvl) [facility]awFpgjneaXNLJSWITLITQ5896-49-62 15:30:00 Test Item Value Reference Range Interpretation Comments BUN (test code = BUN) 13 7-22 [facility]awOznhosnXVQHUBUUUIRU0972-91-77 15:30:00 Test Item Value Reference Range Interpretation Comments Bili Total (test code = Bili Total) 0.4 0.2-1.3 [facility]awBqdmvwlZGVAVERQBFBA0382-16-95 15:30:00 Test Item Value Reference Range Interpretation Comments Potassium Lvl (test code = Potassium 3.8 3.5-5.1 Lvl) [facility]awFhubzfiPMGSPSMAQVSB7583-42-59 15:30:00 Test Item Value Reference Range Interpretation Comments Sodium Lvl (test code = Sodium Lvl) 140 135-145 [facility]awJuacdjhIIEVGGVRUZVY7707-75-84 15:30:00 Test Item Value Reference Range Interpretation Comments Calcium Lvl (test code = Calcium Lvl) 9.1 8.5-10.5 [facility]awRqfxwcgLKEWSWFYQSJR4762-74-87 15:30:00 Test Item Value Reference Range Interpretation Comments Chloride Lvl (test code = Chloride Lvl) 109 95-109 [facility]awQbikwjgSKPMMYSIJVIN7216-08-75 15:30:00 Test Item Value Reference Range Interpretation Comments Alk Phos (test code = Alk Phos) 78 39-136 [facility]awKhvsstnIPRKDOMDFEYH1425-89-73 15:30:00 Test Item Value Reference Range Interpretation Comments ALT (test code = ALT) 16 See_Comment [Auto mated message] The system which ge nerated this result transmit mirna reference range : <=65. The reference range was not used to interpr et this result as zahra l/abnormal. [facility]awTvpsrewOQUCPZDDBNYW1129-64-87 15:30:00 Test Item Value Reference Range Interpretation Comments AST (test code = AST) 26 See_Comment [Auto mated message] The system which ge nerated this result transmit mirna reference range : <=37. The reference range was not used to interpr et this result as zahra l/abnormal. [facility]awOaxweqsQWONHRAHTEGZ5741-55-43 15:30:00 Test Item Value Reference Range Interpretation Comments Albumin Lvl (test code = Albumin Lvl) 3.6 3.5-5.0 [facility]awGfgcjauTXQZWQALPSWG8805-90-15 15:30:00 Test Item Value Reference Range Interpretation Comments Total Protein (test code = Total 7.9 6.4-8.4 Protein) [facility]awIegorydMIMYRPKUKSVK6040-85-13 15:30:00 Test Item Value Reference Range Interpretation Comments CO2 (test code = CO2) 22 -32 [place] [id number] 15:30:00 Test Item Value Reference Range Interpretation Comments S Preg (test code = S Negative *NA*(01/25/18 Preg) 10:30 AM) [facility] HospitalFrdkaapFKIVYAYRSC2105-28-16 15:30:00 Test Item Value Reference Range Interpretation Comments Monocytes # (test code 0.4 See_Comment [Aut omated message] The = Monocytes #) system which generated this result tra nsmitted reference range : <=0.8. The reference r chuck was not used to int erpret this result as normal/abnormal . [facility] HospitalGqzxaliVMWWDVYLIU0017-64-12 15:30:00 Test Item Value Reference Range Interpretation Comments Eosinophils # (test code 0.4 See_Comment [A utomated message] The = Eosinophils #) system whic h generated this result tra nsmitted reference range : <=0.5. The reference r chuck was not used to int erpret this result as normal/abnormal . [facility] HospitalSoizgmiTIGAKTMEPL7929-80-25 15:30:00 Test Item Value Reference Range Interpretation Comments Lymphocytes # (test code = Lymphocytes 2.1 1.0-5.5 #) [facility] HospitalGivtksnUVPRWVKRHB2305-27-54 15:30:00 Test Item Value Reference Range Interpretation Comments Neutrophils # (test code = Neutrophils 5.3 1.5-8.1 #) [facility] HospitalAtjoszjPPLDVYLGEN7473-36-27 15:30:00 Test Item Value Reference Range Interpretation Comments Plt Morph (test code = Normal (01/25/18 10:30 Plt Morph) AM) [facility] HospitalJglpfsaMLVPGWVCGR0658-74-17 15:30:00 Test Item Value Reference Range Interpretation Comments Basophils # (test code 0.0 See_Comment [Aut omated message] The = Basophils #) system which generated this result tra nsmitted reference range : <=0.2. The reference r chuck was not used to int erpret this result as normal/abnormal . [facility] HospitalJfuvzumZTAALBQYFF2866-61-02 15:30:00 Test Item Value Reference Range Interpretation Comments Basophils (test code = 0.5 See_Comment [Aut omated message] The Basophils) system which ge nerated this result tra nsmitted reference range : <=1.0. The reference r chuck was not used to int erpret this result as normal/abnormal . [facility] HospitalSnulzpkCXOBJEDQFH2803-74-27 15:30:00 Test Item Value Reference Range Interpretation Comments Eosinophils (test code = 5.4 See_Comment [A utomated message] The Eosinophils) system which ge nerated this result tra nsmitted reference range : <=4.0. The reference r chuck was not used to int erpret this result as normal/abnormal . [facility] HospitalNgqjntmWSPSWOQLRP5802-08-46 15:30:00 Test Item Value Reference Range Interpretation Comments RBC Morph (test code = Normal (01/25/18 10:30 RBC Morph) AM) [facility] HospitalLztngthWYPRHUYBVO9011-17-37 15:30:00 Test Item Value Reference Range Interpretation Comments Segs (test code = Segs) 64.1 45.0-75.0 [facility] HospitalZnkdxmhYHYHZRYSIW4507-47-07 15:30:00 Test Item Value Reference Range Interpretation Comments Lymphocytes (test code = Lymphocytes) 25.5 20.0-40.0 [facility] HospitalAsikpuoAFXZAVEGZR6490-68-59 15:30:00 Test Item Value Reference Range Interpretation Comments Monocytes (test code = Monocytes) 4.5 2.0-12.0 [facility] HospitalLrbyngeHBWEPCSKPE6267-44-98 15:30:00 Test Item Value Reference Range Interpretation Comments MCV (test code = MCV) 94.9 80.0-98.0 [facility] HospitalIcinqfyVCBTTVQMDR7609-56-57 15:30:00 Test Item Value Reference Range Interpretation Comments MCH (test code = MCH) 31.3 pg 27.0-31.0 [facility] HospitalVcdbekzMGFCZEWLXV5306-51-50 15:30:00 Test Item Value Reference Range Interpretation Comments MCHC (test code = MCHC) 33.0 32.0-36.0 [facility] HospitalJbgfndtJLYGIYNLRC6509-23-52 15:30:00 Test Item Value Reference Range Interpretation Comments RDW (test code = RDW) 12.9 11.5-14.5 [facility] HospitalPqsdcjlVRRXQGVMQA2727-70-82 15:30:00 Test Item Value Reference Range Interpretation Comments Platelet (test code = Platelet) 350 133-450 [facility] HospitalHlksqkaGUCPKKXDTY2137-16-33 15:30:00 Test Item Value Reference Range Interpretation Comments MPV (test code = MPV) 8.8 7.4-10.4 [facility] HospitalVjhkijjUBUZRZLSTA3869-55-96 15:30:00 Test Item Value Reference Range Interpretation Comments WBC (test code = WBC) 8.3 3.7-10.4 [facility] HospitalRclzixuZOFUUYQEAK7759-65-02 15:30:00 Test Item Value Reference Range Interpretation Comments RBC (test code = RBC) 4.09 4.20-5.40 [facility] HospitalKpcsmboTGJPGNLEBN9204-42-64 15:30:00 Test Item Value Reference Range Interpretation Comments Hct (test code = Hct) 38.8 36.0-48.0 [facility] HospitalAnztetjMSLKBHFUFP2607-76-76 15:30:00 Test Item Value Reference Range Interpretation Comments Hgb (test code = Hgb) 12.8 12.0-16.0 [facility]awKfolfjkOIRBZAPXWPGR8708-49-66 15:30:00 Test Item Value Reference Range Interpretation Comments AGAP (test code = AGAP) 12.8 10.0-20.0 [facility]awBuzltqzOYQLEWVGMTBA2007-34-62 15:30:00 Test Item Value Reference Range Interpretation Comments A/G Ratio (test code = A/G Ratio) 0.8 1 0.7-1.6 [facility]awRjlwdnrWUIRPBCQJLNI9261-12-64 15:30:00 Test Item Value Reference Range Interpretation Comments B/C Ratio (test code = B/C Ratio) 14 1 6-25 [facility]awVrljlatUGQXYVVHTBVT0911-78-27 15:30:00 Test Item Value Reference Range Interpretation Comments Globulin (test code = Globulin) 4.3 2.7-4.2 [facility]awNlpscueLJWTMCZBTMJO9925-31-58 15:30:00 Test Item Value Reference Range Interpretation Comments eGFR (test code = eGFR) 72 [facility]awPnxyzvyXOXQSPBZMOVB9160-99-10 15:30:00 Test Item Value Reference Range Interpretation Comments Glucose Lvl (test code = Glucose Lvl) 86 70-99 [place] [id number] 15:30:00 Test Item Value Reference Range Interpretation Comments Creatinine Lvl (test code = Creatinine 0.94 0.50-1.40 Lvl) [facility]awXfeftkhOYVPGPCFQWIJ4948-09-58 15:30:00 Test Item Value Reference Range Interpretation Comments BUN (test code = BUN) 13 7-22 [facility]awUznympdGGWRCUVARSBE3025-51-44 15:30:00 Test Item Value Reference Range Interpretation Comments Bili Total (test code = Bili Total) 0.4 0.2-1.3 [facility]awUpbotgkJLVTZMONXJBC0082-12-44 15:30:00 Test Item Value Reference Range Interpretation Comments Potassium Lvl (test code = Potassium 3.8 3.5-5.1 Lvl) [facility]awJhhunnySFFOQPZHRYDM4579-74-91 15:30:00 Test Item Value Reference Range Interpretation Comments Sodium Lvl (test code = Sodium Lvl) 140 135-145 [facility]awPmauwqiQVHCEZMHXDRO3005-30-14 15:30:00 Test Item Value Reference Range Interpretation Comments Calcium Lvl (test code = Calcium Lvl) 9.1 8.5-10.5 [facility]awYmyxujxLBFQYFPDYTHP3774-47-15 15:30:00 Test Item Value Reference Range Interpretation Comments Chloride Lvl (test code = Chloride Lvl) 109 95-109 [facility]awNrtkkzqAALDBPCXJVYE0545-19-33 15:30:00 Test Item Value Reference Range Interpretation Comments Alk Phos (test code = Alk Phos) 78 39-136 [facility]awWveilznAMEXYRRVOFNF0577-11-90 15:30:00 Test Item Value Reference Range Interpretation Comments ALT (test code = ALT) 16 See_Comment [Auto mated message] The system which ge nerated this result transmit mirna reference range : <=65. The reference range was not used to interpr et this result as zahra l/abnormal. [facility]awOgagydkJBORXLJQOWDC0604-96-08 15:30:00 Test Item Value Reference Range Interpretation Comments AST (test code = AST) 26 See_Comment [Auto mated message] The system which ge nerated this result transmit mirna reference range : <=37. The reference range was not used to interpr et this result as zahra l/abnormal. [facility]awHatxqxkDAXUIDVGYQTO7738-39-82 15:30:00 Test Item Value Reference Range Interpretation Comments Albumin Lvl (test code = Albumin Lvl) 3.6 3.5-5.0 [facility]awQlqkardRJSFVBPROJJH3543-10-36 15:30:00 Test Item Value Reference Range Interpretation Comments Total Protein (test code = Total 7.9 6.4-8.4 Protein) [facility]awWvjeberTBLKQENMASTT3847-51-73 15:30:00 Test Item Value Reference Range Interpretation Comments CO2 (test code = CO2) 22 -32 [place] [id number] 15:30:00 Test Item Value Reference Range Interpretation Comments S Preg (test code = S Negative *NA*(01/25/18 Preg) 10:30 AM) [facility] HospitalLujeztiYBLAXTQBCG7649-16-42 15:30:00 Test Item Value Reference Range Interpretation Comments Monocytes # (test code 0.4 See_Comment [Aut omated message] The = Monocytes #) system which generated this result tra nsmitted reference range : <=0.8. The reference r chuck was not used to int erpret this result as normal/abnormal . [facility] HospitalPwoqedsMQHZZKOGRO8812-41-06 15:30:00 Test Item Value Reference Range Interpretation Comments Eosinophils # (test code 0.4 See_Comment [A utomated message] The = Eosinophils #) system whic h generated this result tra nsmitted reference range : <=0.5. The reference r chuck was not used to int erpret this result as normal/abnormal . [facility] HospitalLgtpbauMNKCHFKQDR5669-29-64 15:30:00 Test Item Value Reference Range Interpretation Comments Lymphocytes # (test code = Lymphocytes 2.1 1.0-5.5 #) [facility] HospitalTcmqeqkAZMUYQQKOW7243-92-22 15:30:00 Test Item Value Reference Range Interpretation Comments Neutrophils # (test code = Neutrophils 5.3 1.5-8.1 #) [facility] HospitalOdfuvlpLHSLBXKVJS5854-83-76 15:30:00 Test Item Value Reference Range Interpretation Comments Plt Morph (test code = Normal (01/25/18 10:30 Plt Morph) AM) [facility] HospitalGqatioxBRVLZHIROW6580-78-34 15:30:00 Test Item Value Reference Range Interpretation Comments Basophils # (test code 0.0 See_Comment [Aut omated message] The = Basophils #) system which generated this result tra nsmitted reference range : <=0.2. The reference r chuck was not used to int erpret this result as normal/abnormal . [facility] HospitalNylhornKDWSMTGFCQ1176-24-57 15:30:00 Test Item Value Reference Range Interpretation Comments Basophils (test code = 0.5 See_Comment [Aut omated message] The Basophils) system which ge nerated this result tra nsmitted reference range : <=1.0. The reference r chuck was not used to int erpret this result as normal/abnormal . [facility] HospitalXmgekufGGQRWQTCNS8674-50-26 15:30:00 Test Item Value Reference Range Interpretation Comments Eosinophils (test code = 5.4 See_Comment [A utomated message] The Eosinophils) system which ge nerated this result tra nsmitted reference range : <=4.0. The reference r chuck was not used to int erpret this result as normal/abnormal . [facility] HospitalIewxvwnPJSGXDUJKL5082-32-92 15:30:00 Test Item Value Reference Range Interpretation Comments RBC Morph (test code = Normal (01/25/18 10:30 RBC Morph) AM) [facility] HospitalJjrcpqxOZHKCPDDGP9794-80-33 15:30:00 Test Item Value Reference Range Interpretation Comments Segs (test code = Segs) 64.1 45.0-75.0 [facility] HospitalRyewruqZHKUYBQDME0964-71-37 15:30:00 Test Item Value Reference Range Interpretation Comments Lymphocytes (test code = Lymphocytes) 25.5 20.0-40.0 [facility] HospitalSjuxsakWDCKRNLSUK7059-05-56 15:30:00 Test Item Value Reference Range Interpretation Comments Monocytes (test code = Monocytes) 4.5 2.0-12.0 [facility] HospitalCznkytuODWZOHKFES3538-83-61 15:30:00 Test Item Value Reference Range Interpretation Comments MCV (test code = MCV) 94.9 80.0-98.0 [facility] HospitalTusatbnNAXOXYXVOI5890-10-94 15:30:00 Test Item Value Reference Range Interpretation Comments MCH (test code = MCH) 31.3 pg 27.0-31.0 [facility] HospitalZwwbiuzAIOYXVWIVM4879-80-21 15:30:00 Test Item Value Reference Range Interpretation Comments MCHC (test code = MCHC) 33.0 32.0-36.0 [facility] HospitalPhgcssrCIEXKZUVOP8002-52-91 15:30:00 Test Item Value Reference Range Interpretation Comments RDW (test code = RDW) 12.9 11.5-14.5 [facility] HospitalGoacmwuGMYVDMWNWF7871-38-28 15:30:00 Test Item Value Reference Range Interpretation Comments Platelet (test code = Platelet) 350 133-450 [facility] HospitalCrxxnrfZVVKAKPSRC6582-49-19 15:30:00 Test Item Value Reference Range Interpretation Comments MPV (test code = MPV) 8.8 7.4-10.4 [facility] HospitalLuxczlhNJMDLLXFHR7630-08-64 15:30:00 Test Item Value Reference Range Interpretation Comments WBC (test code = WBC) 8.3 3.7-10.4 [facility] HospitalMvkuxbnHKIYDKTDAB5428-22-51 15:30:00 Test Item Value Reference Range Interpretation Comments RBC (test code = RBC) 4.09 4.20-5.40 [facility] HospitalLfqbfoaIMWNVOUWCK3170-23-93 15:30:00 Test Item Value Reference Range Interpretation Comments Hct (test code = Hct) 38.8 36.0-48.0 [facility] HospitalVcykontJALLEMUSPR2229-83-55 15:30:00 Test Item Value Reference Range Interpretation Comments Hgb (test code = Hgb) 12.8 12.0-16.0 [facility]awIxftoceOLQAIMWAOFNN8133-28-79 15:30:00 Test Item Value Reference Range Interpretation Comments AGAP (test code = AGAP) 12.8 10.0-20.0 [facility]awBeofhtlBYHWIXZSVACH4956-31-75 15:30:00 Test Item Value Reference Range Interpretation Comments A/G Ratio (test code = A/G Ratio) 0.8 1 0.7-1.6 [facility]awRbfedxpDODBBEDYTIEJ0939-37-03 15:30:00 Test Item Value Reference Range Interpretation Comments B/C Ratio (test code = B/C Ratio) 14 1 6-25 [facility]awPyeoalhWDHDCXVKYDBS9259-07-13 15:30:00 Test Item Value Reference Range Interpretation Comments Globulin (test code = Globulin) 4.3 2.7-4.2 [facility]awFophbzgVEIDRWSMKCTT1526-39-86 15:30:00 Test Item Value Reference Range Interpretation Comments eGFR (test code = eGFR) 72 [facility]awEhuanpbSPUNKJJZJGRT9901-94-04 15:30:00 Test Item Value Reference Range Interpretation Comments Glucose Lvl (test code = Glucose Lvl) 86 70-99 [facility]awGdavucyMBYEHQRODARL3454-71-98 15:30:00 Test Item Value Reference Range Interpretation Comments Creatinine Lvl (test code = Creatinine 0.94 0.50-1.40 Lvl) [facility]awBsumpfpCSGFWOKVWUWC7214-77-50 15:30:00 Test Item Value Reference Range Interpretation Comments BUN (test code = BUN) 13 7-22 [facility]awXzzygffRNQWXMDJPYNH4760-45-59 15:30:00 Test Item Value Reference Range Interpretation Comments Bili Total (test code = Bili Total) 0.4 0.2-1.3 [facility]awUntlqusMTKYGPNQKEAQ9064-90-67 15:30:00 Test Item Value Reference Range Interpretation Comments Potassium Lvl (test code = Potassium 3.8 3.5-5.1 Lvl) [facility]awNesdczbKLGRJRNGITYU6864-93-30 15:30:00 Test Item Value Reference Range Interpretation Comments Sodium Lvl (test code = Sodium Lvl) 140 135-145 [facility]awEpjkddkDXVWTBZDOCKA3608-56-61 15:30:00 Test Item Value Reference Range Interpretation Comments Calcium Lvl (test code = Calcium Lvl) 9.1 8.5-10.5 [facility]awKtibbvdVDHWZKWJELEA5775-54-67 15:30:00 Test Item Value Reference Range Interpretation Comments Chloride Lvl (test code = Chloride Lvl) 109 95-109 [facility]awTofaninYRJKSCJHTLNJ5809-01-69 15:30:00 Test Item Value Reference Range Interpretation Comments Alk Phos (test code = Alk Phos) 78 39-136 [facility]awPboxwosISMQZYJJSJSE3905-82-78 15:30:00 Test Item Value Reference Range Interpretation Comments ALT (test code = ALT) 16 See_Comment [Auto mated message] The system which ge nerated this result transmit mirna reference range : <=65. The reference range was not used to interpr et this result as zahra l/abnormal. [facility]awOdhyxcdIZFFAYXHFVRJ2698-65-06 15:30:00 Test Item Value Reference Range Interpretation Comments AST (test code = AST) 26 See_Comment [Auto mated message] The system which ge nerated this result transmit mirna reference range : <=37. The reference range was not used to interpr et this result as zahra l/abnormal. [facility]awAerzhdnQGJWKDRTPWSC7346-38-21 15:30:00 Test Item Value Reference Range Interpretation Comments Albumin Lvl (test code = Albumin Lvl) 3.6 3.5-5.0 [facility]awIdnebqtCMZXVHTHEJMD0797-37-73 15:30:00 Test Item Value Reference Range Interpretation Comments Total Protein (test code = Total 7.9 6.4-8.4 Protein) [facility]awIorxptqVYJVVJDUCNJV5453-36-52 15:30:00 Test Item Value Reference Range Interpretation Comments CO2 (test code = CO2) 22 24-32 [facility]SymvwdpFNNCVHQATCAXR0502-12-89 15:30:00 Test Item Value Reference Range Interpretation Comments S Preg (test code = S Negative *NA*(01/25/18 Preg) 10:30 AM) [facility]awMxkngvvQXGNFVXHFGEG8953-31-41 15:30:00 Test Item Value Reference Range Interpretation Comments AGAP (test code = AGAP) 12.8 10.0-20.0 [facility]awMkpctldCCQPBURYOCRP1687-65-07 15:30:00 Test Item Value Reference Range Interpretation Comments A/G Ratio (test code = A/G Ratio) 0.8 1 0.7-1.6 [facility]awUkjtbuqBZEPNQKBXLXE5766-98-13 15:30:00 Test Item Value Reference Range Interpretation Comments B/C Ratio (test code = B/C Ratio) 14 1 6-25 [facility]awLdruwpaPURGWBONROVG1905-66-88 15:30:00 Test Item Value Reference Range Interpretation Comments Globulin (test code = Globulin) 4.3 2.7-4.2 [facility]awHcvwhsnQMPHXOQFBBNR5927-05-49 15:30:00 Test Item Value Reference Range Interpretation Comments eGFR (test code = eGFR) 72 [facility]awEcymetzCNPRZLFEYTCM0204-06-95 15:30:00 Test Item Value Reference Range Interpretation Comments Glucose Lvl (test code = Glucose Lvl) 86 70-99 [facility]awEsevaulXOWYYVNKBSLQ3618-66-91 15:30:00 Test Item Value Reference Range Interpretation Comments Creatinine Lvl (test code = Creatinine 0.94 0.50-1.40 Lvl) [facility]awVcukdzdSUPKBMHNQAGK5167-70-18 15:30:00 Test Item Value Reference Range Interpretation Comments BUN (test code = BUN) 13 7-22 [facility]awDedfeifJUIAIKDVOQJA4675-39-41 15:30:00 Test Item Value Reference Range Interpretation Comments Bili Total (test code = Bili Total) 0.4 0.2-1.3 [facility]awZzehsflQIWOECXUJMOQ3678-32-37 15:30:00 Test Item Value Reference Range Interpretation Comments Potassium Lvl (test code = Potassium 3.8 3.5-5.1 Lvl) [facility]awLutjvwtCSVPACHIXZIH4613-28-65 15:30:00 Test Item Value Reference Range Interpretation Comments Sodium Lvl (test code = Sodium Lvl) 140 135-145 [facility]awMxvrixcGWDVTYJXSMIJ2989-10-38 15:30:00 Test Item Value Reference Range Interpretation Comments Calcium Lvl (test code = Calcium Lvl) 9.1 8.5-10.5 [facility]awZoqwgaeJAYPSRBBQANH6770-56-11 15:30:00 Test Item Value Reference Range Interpretation Comments Chloride Lvl (test code = Chloride Lvl) 109 95-109 [facility]awEeyglyeHDRRFVBFRPQV4326-53-23 15:30:00 Test Item Value Reference Range Interpretation Comments Alk Phos (test code = Alk Phos) 78 39-136 [facility]awTpavnkcAGYWQMGGHTIX6647-19-83 15:30:00 Test Item Value Reference Range Interpretation Comments ALT (test code = ALT) 16 <=65 [facility]awHqctgrrQYPTEFUBBPGH2601-90-36 15:30:00 Test Item Value Reference Range Interpretation Comments AST (test code = AST) 26 <=37 [facility]awKifwxggETCTDJSWMIUC2966-61-57 15:30:00 Test Item Value Reference Range Interpretation Comments Albumin Lvl (test code = Albumin Lvl) 3.6 3.5-5.0 [facility]awJteespqVIRGAXUKJSHB5843-79-31 15:30:00 Test Item Value Reference Range Interpretation Comments Total Protein (test code = Total 7.9 6.4-8.4 Protein) [facility]awHxwfiqtTQXNHNMXGONO7845-70-49 15:30:00 Test Item Value Reference Range Interpretation Comments CO2 (test code = CO2) -32 [place] [id number] 15:30:00 Test Item Value Reference Range Interpretation Comments S Preg (test code = S Negative *NA*(01/25/18 Preg) 10:30 AM) [facility]LhwxtosSRIBLHHSAJ4813-64-55 15:30:00 Test Item Value Reference Range Interpretation Comments Monocytes # (test code = Monocytes #) 0.4 <=0.8 [facility] HospitalGeofnvrUTKUKHDTZO5004-52-19 15:30:00 Test Item Value Reference Range Interpretation Comments Eosinophils # (test code = Eosinophils 0.4 <=0.5 #) [facility] HospitalObbpxiaIHJPMVJPUW6856-67-71 15:30:00 Test Item Value Reference Range Interpretation Comments Lymphocytes # (test code = Lymphocytes 2.1 1.0-5.5 #) [facility] HospitalFspqritHEUCTYUJXY3551-23-72 15:30:00 Test Item Value Reference Range Interpretation Comments Neutrophils # (test code = Neutrophils 5.3 1.5-8.1 #) [facility] HospitalNcxfpkoBQTAVBEYOA5123-95-07 15:30:00 Test Item Value Reference Range Interpretation Comments Plt Morph (test code = Normal (01/25/18 10:30 Plt Morph) AM) [facility] HospitalKbgztynSNITNXUQOP1544-59-81 15:30:00 Test Item Value Reference Range Interpretation Comments Basophils # (test code = Basophils #) 0.0 <=0.2 [facility] HospitalYgseqhcQPILHGQGNE8912-22-12 15:30:00 Test Item Value Reference Range Interpretation Comments Basophils (test code = Basophils) 0.5 <=1.0 [facility] HospitalZhuyktrOULKQYLKNM4969-42-73 15:30:00 Test Item Value Reference Range Interpretation Comments Eosinophils (test code = Eosinophils) 5.4 <=4.0 [facility] HospitalCtcryybJTHPQDFBIR5655-71-40 15:30:00 Test Item Value Reference Range Interpretation Comments RBC Morph (test code = Normal (01/25/18 10:30 RBC Morph) AM) [facility] HospitalQotiqbiPJSGIPIWWX1082-62-47 15:30:00 Test Item Value Reference Range Interpretation Comments Segs (test code = Segs) 64.1 45.0-75.0 [facility] HospitalJsjdoufKSVYREYPSI3198-97-05 15:30:00 Test Item Value Reference Range Interpretation Comments Lymphocytes (test code = Lymphocytes) 25.5 20.0-40.0 [facility] HospitalKqgmenrYDMOMHYMKU0822-16-48 15:30:00 Test Item Value Reference Range Interpretation Comments Monocytes (test code = Monocytes) 4.5 2.0-12.0 [facility] HospitalZvrwpxeNHUIPVPIPC1965-63-45 15:30:00 Test Item Value Reference Range Interpretation Comments MCV (test code = MCV) 94.9 80.0-98.0 [facility] HospitalOcudeufUMQCCOFXIY4527-10-95 15:30:00 Test Item Value Reference Range Interpretation Comments MCH (test code = MCH) 31.3 pg 27.0-31.0 [facility] HospitalEtoepznFPTKGTVBTM5620-03-86 15:30:00 Test Item Value Reference Range Interpretation Comments MCHC (test code = MCHC) 33.0 32.0-36.[address] [facility] HospitalLsidzjvVWIRVVDFNG6863-80-90 15:30:00 Test Item Value Reference Range Interpretation Comments RDW (test code = RDW) 12.9 11.5-14.[address] [facility] HospitalAhbwhznOLFWKXHDES7648-39-50 15:30:00 Test Item Value Reference Range Interpretation Comments Platelet (test code = Platelet) 350 133-450 [facility] HospitalUaasecuOSFWPLQGTP4068-69-94 15:30:00 Test Item Value Reference Range Interpretation Comments MPV (test code = MPV) 8.8 7.4-10.4 [facility] HospitalTqvthigNJVTXSPCBD3648-51-35 15:30:00 Test Item Value Reference Range Interpretation Comments WBC (test code = WBC) 8.3 3.7-10.[address] [facility] HospitalHqngceyAUYUAJYYGL9331-75-70 15:30:00 Test Item Value Reference Range Interpretation Comments RBC (test code = RBC) 4.09 4.20-5.40 [facility] HospitalNjcakwzPKYWCZGNXG4229-49-64 15:30:00 Test Item Value Reference Range Interpretation Comments Hct (test code = Hct) 38.8 36.0-48.0 [facility] HospitalQkmaiyaDTXIEWLZNU2679-51-79 15:30:00 Test Item Value Reference Range Interpretation Comments Hgb (test code = Hgb) 12.8 12.0-16.[address] [facility] ZLGTAZJ3305-91-20 05:33:00 Test Item Value Reference Range Interpretation Comments Troponin-I (test code no gt See_Comment [Auto mated message] The = Troponin-I) system which g enerated this result transmit mirna reference range : <=0.40. The reference r chuck was not used to interpr et this result as zahra l/abnormal. [facility] [id number] 05:33:00 Test Item Value Reference Range Interpretation Comments Troponin-I (test code no gt See_Comment [Auto mated message] The = Troponin-I) system which g enerated this result transmit mirna reference range : <=0.40. The reference r chuck was not used to interpr et this result as zahra l/abnormal. [facility] [employer]2017-07-26 05:33:00 Test Item Value Reference Range Interpretation Comments Troponin-I (test code no gt See_Comment [Auto mated message] The = Troponin-I) system which g enerated this result transmit mirna reference range : <=0.40. The reference r chuck was not used to interpr et this result as zahra l/abnormal. [facility] [employer]2017-07-26 05:33:00 Test Item Value Reference Range Interpretation Comments Troponin-I (test code no gt See_Comment [Auto mated message] The = Troponin-I) system which g enerated this result transmit mirna reference range : <=0.40. The reference r chuck was not used to interpr et this result as zahra l/abnormal. [facility] [employer]2017-07-26 05:33:00 Test Item Value Reference Range Interpretation Comments Troponin-I (test code no gt See_Comment [Auto mated message] The = Troponin-I) system which g enerated this result transmit mirna reference range : <=0.40. The reference r chuck was not used to interpr et this result as zahra l/abnormal. [facility] [employer]2017-07-26 05:33:00 Test Item Value Reference Range Interpretation Comments Troponin-I (test code no gt See_Comment [Auto mated message] The = Troponin-I) system which g enerated this result transmit mirna reference range : <=0.40. The reference r chuck was not used to interpr et this result as zahra l/abnormal. [facility]2017-[facility] 05:33:00 Test Item Value Reference Range Interpretation Comments Troponin-I (test code = Troponin-I) no gt <=0.[address] [facility]2017-07-26 03:16:00 Test Item Value Reference Range Interpretation Comments CK MB Index (test 0.9 See_Comment [Automate d message] The code = CK MB Index) system w [facility] generated this result transmit mirna reference range : <=2.5. The reference range was not used to interpr et this result as zahra l/abnormal. [facility] [employer] [id number] 03:16:00 Test Item Value Reference Range Interpretation Comments Total CK (test code = Total CK) 67 12-[address] [facility]NanosolarAC [id number] 03:16:00 Test Item Value Reference Range Interpretation Comments Troponin-I (test code no gt See_Comment [Auto mated message] The = Troponin-I) system which g enerated this result transmit mirna reference range : <=0.40. The reference r chuck was not used to interpr et this result as zahra l/abnormal. [facility] [employer] [id number] 03:16:00 Test Item Value Reference Range Interpretation Comments CK MB (test code = CK MB) 0.6 0.5-3.6 [facility] [employer] [id number] 03:16:00 Test Item Value Reference Range Interpretation Comments eGFR (test code = eGFR) 44 [facility] [employer] [id number] 03:16:00 Test Item Value Reference Range Interpretation Comments A/G Ratio (test code = A/G Ratio) 0.9 0.7-1.6 [facility] [employer] [id number] 03:16:00 Test Item Value Reference Range Interpretation Comments AST (test code = AST) 14 See_Comment [Auto mated message] The system which ge nerated this result transmit mirna reference range : <=37. The reference range was not used to interpr et this result as zahra l/abnormal. [facility] [employer] [id number] 03:16:00 Test Item Value Reference Range Interpretation Comments ALT (test code = ALT) 18 See_Comment [Auto mated message] The system which ge nerated this result transmit mirna reference range : <=65. The reference range was not used to interpr et this result as zahra l/abnormal. [employer]2017-07-26 03:16:00 Test Item Value Reference Range Interpretation Comments Albumin Lvl (test code = Albumin Lvl) 3.4 3.5-5.0 [facility] [employer] [id number] 03:16:00 Test Item Value Reference Range Interpretation Comments Total Protein (test code = Total 7.3 6.4-8.4 Protein) [facility]2017-07-26 03:16:00 Test Item Value Reference Range Interpretation Comments Calcium Lvl (test code = Calcium Lvl) 8.4 8.5-10.5 [facility]2017-07-26 03:16:00 Test Item Value Reference Range Interpretation Comments Globulin (test code = Globulin) 3.9 2.7-4.2 [facility]2017-07-26 03:16:00 Test Item Value Reference Range Interpretation Comments B/C Ratio (test code = B/C Ratio) 15 6-25 [facility]2017-07-26 03:16:00 Test Item Value Reference Range Interpretation Comments AGAP (test code = AGAP) 12.7 10.0-20.0 [facility]2017-07-26 03:16:00 Test Item Value Reference Range Interpretation Comments Bili Total (test code = Bili Total) 0.1 0.2-1.3 [facility]2017-07-26 03:16:00 Test Item Value Reference Range Interpretation Comments Alk Phos (test code = Alk Phos) 80 39-136 [facility]2017-07-26 03:16:00 Test Item Value Reference Range Interpretation Comments Creatinine Lvl (test code = Creatinine 1.42 0.50-1.40 Lvl) [facility]2017-07-26 03:16:00 Test Item Value Reference Range Interpretation Comments Sodium Lvl (test code = Sodium Lvl) 141 135-145 [facility]2017-07-26 03:16:00 Test Item Value Reference Range Interpretation Comments Potassium Lvl (test code = Potassium 3.7 3.5-5.1 Lvl) [facility]2017-07-26 03:16:00 Test Item Value Reference Range Interpretation Comments Chloride Lvl (test code = Chloride Lvl) 105 95-109 [facility]2017-07-26 03:16:00 Test Item Value Reference Range Interpretation Comments CO2 (test code = CO2) 27 24-32 [facility]2017-07-26 03:16:00 Test Item Value Reference Range Interpretation Comments Glucose Lvl (test code = Glucose Lvl) 79 70-99 [facility]2017-07-26 03:16:00 Test Item Value Reference Range Interpretation Comments BUN (test code = BUN) 21 7-22 [facility] HospitalElhpjdhAVLKHWIUUQ8569-03-50 03:16:00 Test Item Value Reference Range Interpretation Comments Basophils # (test code 0.0 See_Comment [Aut omated message] The = Basophils #) system which generated this result tra nsmitted reference range : <=0.2. The reference r chuck was not used to int erpret this result as normal/abnormal . [facility] HospitalFozebwuLCGMFAQLOJ4632-74-31 03:16:00 Test Item Value Reference Range Interpretation Comments Eosinophils # (test code 0.1 See_Comment [A utomated message] The = Eosinophils #) system whic h generated this result tra nsmitted reference range : <=0.5. The reference r chuck was not used to int erpret this result as normal/abnormal . [facility] HospitalOmovhquWHBHYKGGRL1018-29-68 03:16:00 Test Item Value Reference Range Interpretation Comments Monocytes # (test code 0.6 See_Comment [Aut omated message] The = Monocytes #) system which generated this result tra nsmitted reference range : <=0.8. The reference r chuck was not used to int erpret this result as normal/abnormal . [facility] HospitalWksfumrVOHKTOYCXF3337-68-42 03:16:00 Test Item Value Reference Range Interpretation Comments Lymphocytes # (test code = Lymphocytes 3.0 1.0-5.5 #) [facility] HospitalEupsuavACHSSPJWDM8884-63-72 03:16:00 Test Item Value Reference Range Interpretation Comments Segs (test code = Segs) 58.6 45.0-75.0 [facility] HospitalBcuqnpgXFRLAWTYLL6006-05-74 03:16:00 Test Item Value Reference Range Interpretation Comments Segs-Bands # (test code = Segs-Bands #) 5.4 1.5-8.1 [facility] HospitalTgaevifCXOYFDTSZD3266-12-44 03:16:00 Test Item Value Reference Range Interpretation Comments Basophils (test code = 0.4 See_Comment [Aut omated message] The Basophils) system which ge nerated this result tra nsmitted reference range : <=1.0. The reference r cuhck was not used to int erpret this result as normal/abnormal . [facility] HospitalVefywgoXLUYQGSGGV0826-47-44 03:16:00 Test Item Value Reference Range Interpretation Comments Eosinophils (test code = 1.6 See_Comment [A utomated message] The Eosinophils) system which ge nerated this result tra nsmitted reference range : <=4.0. The reference r chuck was not used to int erpret this result as normal/abnormal . [facility] HospitalAalvengNBFMSEODMZ0007-84-48 03:16:00 Test Item Value Reference Range Interpretation Comments Lymphocytes (test code = Lymphocytes) 32.9 20.0-40.0 [facility] HospitalXavfrlrWYXHPUGZHP9175-92-21 03:16:00 Test Item Value Reference Range Interpretation Comments Monocytes (test code = Monocytes) 6.5 2.0-12.0 [facility] HospitalYvmslmtNUCBCFJNYU3421-24-97 03:16:00 Test Item Value Reference Range Interpretation Comments D-Dimer (test code = D-Dimer) no gt [facility] HospitalZrukvlmUELRZIDNJE7585-91-04 03:16:00 Test Item Value Reference Range Interpretation Comments MPV (test code = MPV) 7.7 7.4-10.4 [facility] HospitalTyirvvgBAKLCICUZD3192-22-53 03:16:00 Test Item Value Reference Range Interpretation Comments MCH (test code = MCH) 32.1 pg 27.0-31.0 [facility] HospitalZwqzbgqWZDPBPUSYV2770-75-77 03:16:00 Test Item Value Reference Range Interpretation Comments MCV (test code = MCV) 97.0 80.0-98.0 [facility] HospitalLqdklfnFWENXSQVCU7058-16-07 03:16:00 Test Item Value Reference Range Interpretation Comments Platelet (test code = Platelet) 305 133-450 [facility] HospitalOwbmmqjWXACTFRDUV1948-55-49 03:16:00 Test Item Value Reference Range Interpretation Comments MCHC (test code = MCHC) 33.1 32.0-36.0 [facility] HospitalWcwyzceUISNCCOSAV9757-55-31 03:16:00 Test Item Value Reference Range Interpretation Comments RDW (test code = RDW) 14.4 11.5-14.5 [facility] HospitalQbodicePDBTOSMICK9140-28-63 03:16:00 Test Item Value Reference Range Interpretation Comments Hct (test code = Hct) 34.9 36.0-48.0 [facility] HospitalPupftgqFSKZDMNYMX5015-21-83 03:16:00 Test Item Value Reference Range Interpretation Comments Hgb (test code = Hgb) 11.6 12.0-16.0 [facility] HospitalIyslnhyHGZCLTTUGS6787-05-55 03:16:00 Test Item Value Reference Range Interpretation Comments RBC (test code = RBC) 3.60 4.20-5.40 [facility] HospitalGrwadxxCOFNCUXSSO6169-51-41 03:16:00 Test Item Value Reference Range Interpretation Comments WBC (test code = WBC) 9.2 3.7-10.4 [facility] BEPIGUF2248-08-23 03:16:00 Test Item Value Reference Range Interpretation Comments CK MB Index (test 0.9 See_Comment [Automate d message] The code = CK MB Index) system w [facility] generated this result transmit mirna reference range : <=2.5. The reference range was not used to interpr et this result as zahra l/abnormal. [facility] [id number] 03:16:00 Test Item Value Reference Range Interpretation Comments Total CK (test code = Total CK) 67 12-191 [facility] FYIQZRQ3160-87-62 03:16:00 Test Item Value Reference Range Interpretation Comments Troponin-I (test code no gt See_Comment [Auto mated message] The = Troponin-I) system which g enerated this result transmit mirna reference range : <=0.40. The reference r chuck was not used to interpr et this result as zahra l/abnormal. [facility] [id number] 03:16:00 Test Item Value Reference Range Interpretation Comments CK MB (test code = CK MB) 0.6 0.5-3.[address] [facility]P2BinvestorSJFTY8867-62-53 03:16:00 Test Item Value Reference Range Interpretation Comments eGFR (test code = eGFR) [address] [facility]P2BinvestorQHLIB2330-44-18 03:16:00 Test Item Value Reference Range Interpretation Comments A/G Ratio (test code = A/G Ratio) 0.9 0.7-1.[address] [facility]P2BinvestorUZBUB3963-36-60 03:16:00 Test Item Value Reference Range Interpretation Comments AST (test code = AST) 14 See_Comment [Auto mated message] The system which ge nerated this result transmit mirna reference range : <=37. The reference range was not used to interpr et this result as zahra l/abnormal. [facility] [employer]2017-07-26 03:16:00 Test Item Value Reference Range Interpretation Comments ALT (test code = ALT) 18 See_Comment [Auto mated message] The system which ge nerated this result transmit mirna reference range : <=65. The reference range was not used to interpr et this result as zahra l/abnormal. [facility]2017-07-26 03:16:00 Test Item Value Reference Range Interpretation Comments Albumin Lvl (test code = Albumin Lvl) 3.4 3.5-5.0 [facility]2017-07-26 03:16:00 Test Item Value Reference Range Interpretation Comments Total Protein (test code = Total 7.3 6.4-8.4 Protein) [facility]2017-07-26 03:16:00 Test Item Value Reference Range Interpretation Comments Calcium Lvl (test code = Calcium Lvl) 8.4 8.5-10.5 [facility]2017-07-26 03:16:00 Test Item Value Reference Range Interpretation Comments Globulin (test code = Globulin) 3.9 2.7-4.2 [facility]2017-07-26 03:16:00 Test Item Value Reference Range Interpretation Comments B/C Ratio (test code = B/C Ratio) 15 6-25 [facility]2017-07-26 03:16:00 Test Item Value Reference Range Interpretation Comments AGAP (test code = AGAP) 12.7 10.0-20.0 [facility]2017-07-26 03:16:00 Test Item Value Reference Range Interpretation Comments Bili Total (test code = Bili Total) 0.1 0.2-1.3 [facility]2017-07-26 03:16:00 Test Item Value Reference Range Interpretation Comments Alk Phos (test code = Alk Phos) 80 39-136 [facility]2017-07-26 03:16:00 Test Item Value Reference Range Interpretation Comments Creatinine Lvl (test code = Creatinine 1.42 0.50-1.40 Lvl) [facility]2017-07-26 03:16:00 Test Item Value Reference Range Interpretation Comments Sodium Lvl (test code = Sodium Lvl) 141 135-145 [facility]2017-07-26 03:16:00 Test Item Value Reference Range Interpretation Comments Potassium Lvl (test code = Potassium 3.7 3.5-5.1 Lvl) [facility]2017-07-26 03:16:00 Test Item Value Reference Range Interpretation Comments Chloride Lvl (test code = Chloride Lvl) 105 95-109 [facility]2017-07-26 03:16:00 Test Item Value Reference Range Interpretation Comments CO2 (test code = CO2) 27 24-32 [facility]2017-07-26 03:16:00 Test Item Value Reference Range Interpretation Comments Glucose Lvl (test code = Glucose Lvl) 79 70-99 [facility]2017-07-26 03:16:00 Test Item Value Reference Range Interpretation Comments BUN (test code = BUN) 21 7-22 [facility] HospitalRyckatrCXTXNDIYNM5812-55-11 03:16:00 Test Item Value Reference Range Interpretation Comments Basophils # (test code 0.0 See_Comment [Aut omated message] The = Basophils #) system which generated this result tra nsmitted reference range : <=0.2. The reference r chuck was not used to int erpret this result as normal/abnormal . [facility] HospitalCyhpjlsUOAUVZPBYI5485-69-72 03:16:00 Test Item Value Reference Range Interpretation Comments Eosinophils # (test code 0.1 See_Comment [A utomated message] The = Eosinophils #) system whic h generated this result tra nsmitted reference range : <=0.5. The reference r chuck was not used to int erpret this result as normal/abnormal . [facility] HospitalVgwvbkhRZYZVBXNAV3245-17-29 03:16:00 Test Item Value Reference Range Interpretation Comments Monocytes # (test code 0.6 See_Comment [Aut omated message] The = Monocytes #) system which generated this result tra nsmitted reference range : <=0.8. The reference r chuck was not used to int erpret this result as normal/abnormal . [facility] HospitalSawzgxjNQJTKNCPMB4645-11-75 03:16:00 Test Item Value Reference Range Interpretation Comments Lymphocytes # (test code = Lymphocytes 3.0 1.0-5.5 #) [facility] HospitalCbzyofuOJMEZADSEW4498-98-95 03:16:00 Test Item Value Reference Range Interpretation Comments Segs (test code = Segs) 58.6 45.0-75.0 [facility] HospitalGlbosqtAYHPBFOXOO8639-58-09 03:16:00 Test Item Value Reference Range Interpretation Comments Segs-Bands # (test code = Segs-Bands #) 5.4 1.5-8.1 [facility] HospitalTsrfvgjQPNSBXNNWD0953-03-27 03:16:00 Test Item Value Reference Range Interpretation Comments Basophils (test code = 0.4 See_Comment [Aut omated message] The Basophils) system which ge nerated this result tra nsmitted reference range : <=1.0. The reference r chuck was not used to int erpret this result as normal/abnormal . [facility] HospitalTbrqermPDSRONIOPC6831-26-32 03:16:00 Test Item Value Reference Range Interpretation Comments Eosinophils (test code = 1.6 See_Comment [A utomated message] The Eosinophils) system which ge nerated this result tra nsmitted reference range : <=4.0. The reference r chuck was not used to int erpret this result as normal/abnormal . [facility] HospitalPdtjgznWKZGPPFROU4484-35-92 03:16:00 Test Item Value Reference Range Interpretation Comments Lymphocytes (test code = Lymphocytes) 32.9 20.0-40.0 [facility] HospitalXbljnzuMIFTOHQGOT6502-55-74 03:16:00 Test Item Value Reference Range Interpretation Comments Monocytes (test code = Monocytes) 6.5 2.0-12.0 [facility] HospitalUmvagxaBXLLWJSRXQ8060-76-20 03:16:00 Test Item Value Reference Range Interpretation Comments D-Dimer (test code = D-Dimer) no gt [facility] HospitalTjnisitOSMAULUOIF2776-00-07 03:16:00 Test Item Value Reference Range Interpretation Comments MPV (test code = MPV) 7.7 7.4-10.4 [facility] HospitalGmgypyvVOLQWSDUCD4449-30-30 03:16:00 Test Item Value Reference Range Interpretation Comments MCH (test code = MCH) 32.1 pg 27.0-31.0 [facility] HospitalFqsmnipZDSTAWEQQB6670-36-63 03:16:00 Test Item Value Reference Range Interpretation Comments MCV (test code = MCV) 97.0 80.0-98.0 [place] [id number] 03:16:00 Test Item Value Reference Range Interpretation Comments Platelet (test code = Platelet) 305 133-450 [facility] HospitalIosagvoGGFLSHJUGN5381-98-85 03:16:00 Test Item Value Reference Range Interpretation Comments MCHC (test code = MCHC) 33.1 32.0-36.0 [facility]landPrqurwmPSCXRLOFEL8747-85-23 03:16:00 Test Item Value Reference Range Interpretation Comments RDW (test code = RDW) 14.4 11.5-14.[address] [facility]SpwbzdtDOMDQFVHJL6883-23-01 03:16:00 Test Item Value Reference Range Interpretation Comments Hct (test code = Hct) 34.9 36.0-48.[address] [facility] HospitalJchumieGGSDENSHTJ3095-42-76 03:16:00 Test Item Value Reference Range Interpretation Comments Hgb (test code = Hgb) 11.6 12.0-16.0 [facility] PearlandGezxqimKVWCGIAUJZ3195-69-60 03:16:00 Test Item Value Reference Range Interpretation Comments RBC (test code = RBC) 3.60 4.20-5.40 [facility] PearlandKzycprtGNNICRMREF1679-32-88 03:16:00 Test Item Value Reference Range Interpretation Comments WBC (test code = WBC) 9.2 3.7-10.4 [facility] PearlandWaterfallDAJSKVF8805-41-21 03:16:00 Test Item Value Reference Range Interpretation Comments CK MB Index (test 0.9 See_Comment [Automate d message] The code = CK MB Index) system w [facility] generated this result transmit mirna reference range : <=2.5. The reference range was not used to interpr et this result as zahra l/abnormal. [facility] [id number] 03:16:00 Test Item Value Reference Range Interpretation Comments Total CK (test code = Total CK) 67 12-191 [facility] [id number] 03:16:00 Test Item Value Reference Range Interpretation Comments Troponin-I (test code no gt See_Comment [Auto mated message] The = Troponin-I) system which g enerated this result transmit mirna reference range : <=0.40. The reference r chuck was not used to interpr et this result as zahra l/abnormal. [facility] Test Item Value Reference Range Interpretation Comments CK MB (test code = CK MB) 0.6 0.5-3.6 [facility] [id number] 03:16:00 Test Item Value Reference Range Interpretation Comments eGFR (test code = eGFR) 44 [facility]2017-07-26 03:16:00 Test Item Value Reference Range Interpretation Comments A/G Ratio (test code = A/G Ratio) 0.9 0.7-1.6 [facility]2017-07-26 03:16:00 Test Item Value Reference Range Interpretation Comments AST (test code = AST) 14 See_Comment [Auto mated message] The system which ge nerated this result transmit mirna reference range : <=37. The reference range was not used to interpr et this result as zahra l/abnormal. [facility]2017-07-26 03:16:00 Test Item Value Reference Range Interpretation Comments ALT (test code = ALT) 18 See_Comment [Auto mated message] The system which ge nerated this result transmit mirna reference range : <=65. The reference range was not used to interpr et this result as zahra l/abnormal. [facility]2017-07-26 03:16:00 Test Item Value Reference Range Interpretation Comments Albumin Lvl (test code = Albumin Lvl) 3.4 3.5-5.0 [facility]2017-07-26 03:16:00 Test Item Value Reference Range Interpretation Comments Total Protein (test code = Total 7.3 6.4-8.4 Protein) [facility]2017-07-26 03:16:00 Test Item Value Reference Range Interpretation Comments Calcium Lvl (test code = Calcium Lvl) 8.4 8.5-10.5 [facility]2017-07-26 03:16:00 Test Item Value Reference Range Interpretation Comments Globulin (test code = Globulin) 3.9 2.7-4.2 [place] [id number] 03:16:00 Test Item Value Reference Range Interpretation Comments B/C Ratio (test code = B/C Ratio) 15 6-25 [facility]2017-07-26 03:16:00 Test Item Value Reference Range Interpretation Comments AGAP (test code = AGAP) 12.7 10.0-20.0 [facility]2017-07-26 03:16:00 Test Item Value Reference Range Interpretation Comments Bili Total (test code = Bili Total) 0.1 0.2-1.3 [facility]2017-07-26 03:16:00 Test Item Value Reference Range Interpretation Comments Alk Phos (test code = Alk Phos) 80 39-136 [facility]2017-07-26 03:16:00 Test Item Value Reference Range Interpretation Comments Creatinine Lvl (test code = Creatinine 1.42 0.50-1.40 Lvl) [facility]2017-07-26 03:16:00 Test Item Value Reference Range Interpretation Comments Sodium Lvl (test code = Sodium Lvl) 141 135-145 [facility]2017-07-26 03:16:00 Test Item Value Reference Range Interpretation Comments Potassium Lvl (test code = Potassium 3.7 3.5-5.1 Lvl) [facility]2017-07-26 03:16:00 Test Item Value Reference Range Interpretation Comments Chloride Lvl (test code = Chloride Lvl) 105 95-109 [place] [id number] 03:16:00 Test Item Value Reference Range Interpretation Comments CO2 (test code = CO2) 27 24-32 [facility]2017-07-26 03:16:00 Test Item Value Reference Range Interpretation Comments Glucose Lvl (test code = Glucose Lvl) 79 70-99 [facility]2017-07-26 03:16:00 Test Item Value Reference Range Interpretation Comments BUN (test code = BUN) 21 7-22 [facility] HospitalIznhdobYQEAZJAEEE6658-35-31 03:16:00 Test Item Value Reference Range Interpretation Comments Basophils # (test code 0.0 See_Comment [Aut omated message] The = Basophils #) system which generated this result tra nsmitted reference range : <=0.2. The reference r chuck was not used to int erpret this result as normal/abnormal . [facility] HospitalBcllrtyIZHKIDXBHI5794-79-13 03:16:00 Test Item Value Reference Range Interpretation Comments Eosinophils # (test code 0.1 See_Comment [A utomated message] The = Eosinophils #) system whic h generated this result tra nsmitted reference range : <=0.5. The reference r chuck was not used to int erpret this result as normal/abnormal . [facility] HospitalPagcbpfQGBURRNAXK3418-20-77 03:16:00 Test Item Value Reference Range Interpretation Comments Monocytes # (test code 0.6 See_Comment [Aut omated message] The = Monocytes #) system which generated this result tra nsmitted reference range : <=0.8. The reference r chuck was not used to int erpret this result as normal/abnormal . [facility] HospitalKwkvmwaRVOGTHGYEV1793-44-52 03:16:00 Test Item Value Reference Range Interpretation Comments Lymphocytes # (test code = Lymphocytes 3.0 1.0-5.5 #) [facility] HospitalVskttloKRWDFZZJCC4414-09-43 03:16:00 Test Item Value Reference Range Interpretation Comments Segs (test code = Segs) 58.6 45.0-75.0 [facility] HospitalDruftvsHONIAQERVA5356-92-81 03:16:00 Test Item Value Reference Range Interpretation Comments Segs-Bands # (test code = Segs-Bands #) 5.4 1.5-8.1 [facility] HospitalGbxglmeSOAPWTVGXJ2185-69-74 03:16:00 Test Item Value Reference Range Interpretation Comments Basophils (test code = 0.4 See_Comment [Aut omated message] The Basophils) system which ge nerated this result tra nsmitted reference range : <=1.0. The reference r chuck was not used to int erpret this result as normal/abnormal . [facility] HospitalTbwbcnkXYIAWTODKW8116-77-41 03:16:00 Test Item Value Reference Range Interpretation Comments Eosinophils (test code = 1.6 See_Comment [A utomated message] The Eosinophils) system which ge nerated this result tra nsmitted reference range : <=4.0. The reference r chuck was not used to int erpret this result as normal/abnormal . [facility] HospitalIgjezfqVGSWHESQLF6555-23-83 03:16:00 Test Item Value Reference Range Interpretation Comments Lymphocytes (test code = Lymphocytes) 32.9 20.0-40.0 [facility] HospitalDwnwfibUIKKGXDPUT5128-88-66 03:16:00 Test Item Value Reference Range Interpretation Comments Monocytes (test code = Monocytes) 6.5 2.0-12.0 [facility] HospitalRiznommYGWNULRMMG8632-55-80 03:16:00 Test Item Value Reference Range Interpretation Comments D-Dimer (test code = D-Dimer) no gt [facility] HospitalGqfaluxWBCQVDBHRI9207-27-92 03:16:00 Test Item Value Reference Range Interpretation Comments MPV (test code = MPV) 7.7 7.4-10.[address] [facility] HospitalXyziqxrXUFFVEUMWL3432-55-55 03:16:00 Test Item Value Reference Range Interpretation Comments MCH (test code = MCH) 32.1 pg 27.0-31.[address] [facility] HospitalLfqnrgqJHWMABFXYN1854-00-36 03:16:00 Test Item Value Reference Range Interpretation Comments MCV (test code = MCV) 97.0 80.0-98.[address] [facility] HospitalLkforzzEBYTHNGYQH7832-40-85 03:16:00 Test Item Value Reference Range Interpretation Comments Platelet (test code = Platelet) 305 133-[address] [facility] HospitalQndohozPUBBITPSBV6338-37-39 03:16:00 Test Item Value Reference Range Interpretation Comments MCHC (test code = MCHC) 33.1 32.0-36.[address] [facility] HospitalXvqpsvrDARTYCJIJV7670-31-34 03:16:00 Test Item Value Reference Range Interpretation Comments RDW (test code = RDW) 14.4 11.5-14.[address] [facility] HospitalKlfefgoVUGENKRNSA9220-44-82 03:16:00 Test Item Value Reference Range Interpretation Comments Hct (test code = Hct) 34.9 36.0-48.[address] [facility] HospitalGllbnzgPGYUXUBFLF9340-98-01 03:16:00 Test Item Value Reference Range Interpretation Comments Hgb (test code = Hgb) 11.6 12.0-16.[address] [facility] HospitalKwzmyqpYPKQBOLFZE9650-43-38 03:16:00 Test Item Value Reference Range Interpretation Comments RBC (test code = RBC) 3.60 4.20-5.[address] [facility] HospitalWtygoqoFTMSBRVGWH6400-48-47 03:16:00 Test Item Value Reference Range Interpretation Comments WBC (test code = WBC) 9.2 3.7-10.4 [facility] PearlandWaterfallPWKYMWW5578-42-02 03:16:00 Test Item Value Reference Range Interpretation Comments CK MB Index (test 0.9 See_Comment [Automate d message] The code = CK MB Index) system w [facility] generated this result transmit mirna reference range : <=2.5. The reference range was not used to interpr et this result as zahra l/abnormal. [facility] [id number] 03:16:00 Test Item Value Reference Range Interpretation Comments Total CK (test code = Total CK) 67 12-191 [facility] PearlandUrban InternsAC IUQVNKW7988-11-00 03:16:00 Test Item Value Reference Range Interpretation Comments Troponin-I (test code no gt See_Comment [Auto mated message] The = Troponin-I) system which g enerated this result transmit mirna reference range : <=0.40. The reference r chuck was not used to interpr et this result as zahra l/abnormal. [facility]landUr[facility] InternsAC [id number] 03:16:00 Test Item Value Reference Range Interpretation Comments CK MB (test code = CK MB) 0.6 0.5-3.[address] [facility] [id number] 03:16:00 Test Item Value Reference Range Interpretation Comments eGFR (test code = eGFR) [address] [facility] [id number] 03:16:00 Test Item Value Reference Range Interpretation Comments A/G Ratio (test code = A/G Ratio) 0.9 0.7-1.[address] [facility] [id number] 03:16:00 Test Item Value Reference Range Interpretation Comments AST (test code = AST) 14 See_Comment [Auto mated message] The system which ge nerated this result transmit mirna reference range : <=37. The reference range was not used to interpr et this result as zahra l/abnormal. [facility] [employer] [id number] 03:16:00 Test Item Value Reference Range Interpretation Comments ALT (test code = ALT) 18 See_Comment [Auto mated message] The system which ge nerated this result transmit mirna reference range : <=65. The reference range was not used to interpr et this result as zahra l/abnormal. [facility] [id number] 03:16:00 Test Item Value Reference Range Interpretation Comments Albumin Lvl (test code = Albumin Lvl) 3.4 3.5-5.[address] [facility] [id number] 03:16:00 Test Item Value Reference Range Interpretation Comments Total Protein (test code = Total 7.3 6.4-8.4 Protein) [facility]landGim[facility] [id number] 03:16:00 Test Item Value Reference Range Interpretation Comments Calcium Lvl (test code = Calcium Lvl) 8.4 8.5-10.[address] [facility] [id number] 03:16:00 Test Item Value Reference Range Interpretation Comments Globulin (test code = Globulin) 3.9 2.7-4.2 [facility]2017-07-26 03:16:00 Test Item Value Reference Range Interpretation Comments B/C Ratio (test code = B/C Ratio) 15 6-25 [facility]2017-07-26 03:16:00 Test Item Value Reference Range Interpretation Comments AGAP (test code = AGAP) 12.7 10.0-20.0 [facility]2017-07-26 03:16:00 Test Item Value Reference Range Interpretation Comments Bili Total (test code = Bili Total) 0.1 0.2-1.3 [facility]2017-07-26 03:16:00 Test Item Value Reference Range Interpretation Comments Alk Phos (test code = Alk Phos) 80 39-136 [facility]2017-07-26 03:16:00 Test Item Value Reference Range Interpretation Comments Creatinine Lvl (test code = Creatinine 1.42 0.50-1.40 Lvl) [facility]2017-07-26 03:16:00 Test Item Value Reference Range Interpretation Comments Sodium Lvl (test code = Sodium Lvl) 141 135-145 [facility]2017-07-26 03:16:00 Test Item Value Reference Range Interpretation Comments Potassium Lvl (test code = Potassium 3.7 3.5-5.1 Lvl) [facility]2017-07-26 03:16:00 Test Item Value Reference Range Interpretation Comments Chloride Lvl (test code = Chloride Lvl) 105 95-109 [facility]2017-07-26 03:16:00 Test Item Value Reference Range Interpretation Comments CO2 (test code = CO2) 27 24-32 [facility]2017-07-26 03:16:00 Test Item Value Reference Range Interpretation Comments Glucose Lvl (test code = Glucose Lvl) 79 70-99 [facility]2017-07-26 03:16:00 Test Item Value Reference Range Interpretation Comments BUN (test code = BUN) 21 7-22 [facility] Ho[id number] 03:16:00 Test Item Value Reference Range Interpretation Comments Basophils # (test code 0.0 See_Comment [Aut omated message] The = Basophils #) system which generated this result tra nsmitted reference range : <=0.2. The reference r chuck was not used to int erpret this result as normal/abnormal . [facility] HospitalBitwgvuRQHGLBJPXP7164-50-42 03:16:00 Test Item Value Reference Range Interpretation Comments Eosinophils # (test code 0.1 See_Comment [A utomated message] The = Eosinophils #) system whic h generated this result tra nsmitted reference range : <=0.5. The reference r chuck was not used to int erpret this result as normal/abnormal . [facility] HospitalBtbkunqFIIJZEXLXP3059-35-31 03:16:00 Test Item Value Reference Range Interpretation Comments Monocytes # (test code 0.6 See_Comment [Aut omated message] The = Monocytes #) system which generated this result tra nsmitted reference range : <=0.8. The reference r chuck was not used to int erpret this result as normal/abnormal . [facility] HospitalGdiuykfPRKOKQRSJW2864-23-14 03:16:00 Test Item Value Reference Range Interpretation Comments Lymphocytes # (test code = Lymphocytes 3.0 1.0-5.5 #) [facility] HospitalWxfftnbFVWMTEOQZB2896-10-76 03:16:00 Test Item Value Reference Range Interpretation Comments Segs (test code = Segs) 58.6 45.0-75.0 [facility] HospitalDncebooONRMECHRJY6930-84-60 03:16:00 Test Item Value Reference Range Interpretation Comments Segs-Bands # (test code = Segs-Bands #) 5.4 1.5-8.1 [facility] HospitalLzwwzvyFQNMUBNMQQ4428-42-09 03:16:00 Test Item Value Reference Range Interpretation Comments Basophils (test code = 0.4 See_Comment [Aut omated message] The Basophils) system which ge nerated this result tra nsmitted reference range : <=1.0. The reference r chuck was not used to int erpret this result as normal/abnormal . [facility] HospitalNpkqbgjJIRKKTVYBC0462-72-86 03:16:00 Test Item Value Reference Range Interpretation Comments Eosinophils (test code = 1.6 See_Comment [A utomated message] The Eosinophils) system which ge nerated this result tra nsmitted reference range : <=4.0. The reference r chuck was not used to int erpret this result as normal/abnormal . [facility] HospitalGydtzldTJAMEFUUQE9326-15-77 03:16:00 Test Item Value Reference Range Interpretation Comments Lymphocytes (test code = Lymphocytes) 32.9 20.0-40.0 [facility] HospitalXrsoiwzCCGKRCIHQJ3765-02-49 03:16:00 Test Item Value Reference Range Interpretation Comments Monocytes (test code = Monocytes) 6.5 2.0-12.0 [facility] HospitalBcfhpnkRWOPYTLZKK5502-99-69 03:16:00 Test Item Value Reference Range Interpretation Comments D-Dimer (test code = D-Dimer) no gt [facility] HospitalCgtdhzxIHOGRIEDTM5926-58-91 03:16:00 Test Item Value Reference Range Interpretation Comments MPV (test code = MPV) 7.7 7.4-10.4 [facility] HospitalLbydglgORGEFSNBSY8606-24-44 03:16:00 Test Item Value Reference Range Interpretation Comments MCH (test code = MCH) 32.1 pg 27.0-31.0 [facility] HospitalGuxglueVYWBELPCDJ9289-89-69 03:16:00 Test Item Value Reference Range Interpretation Comments MCV (test code = MCV) 97.0 80.0-98.0 [facility] HospitalMiplxuuLJZKPCQSPC5620-15-57 03:16:00 Test Item Value Reference Range Interpretation Comments Platelet (test code = Platelet) 305 133-450 [facility] HospitalVrvywucBCJAXRJUPT5694-82-13 03:16:00 Test Item Value Reference Range Interpretation Comments MCHC (test code = MCHC) 33.1 32.0-36.0 [facility] HospitalFpignzgEURSACXEVK9266-90-48 03:16:00 Test Item Value Reference Range Interpretation Comments RDW (test code = RDW) 14.4 11.5-14.5 [facility] HospitalPujwkouWXRODPDTVC6959-43-36 03:16:00 Test Item Value Reference Range Interpretation Comments Hct (test code = Hct) 34.9 36.0-48.0 [facility] HospitalMdogqzxIOEMNQBKEP0971-71-06 03:16:00 Test Item Value Reference Range Interpretation Comments Hgb (test code = Hgb) 11.6 12.0-16.0 [facility] HospitalOygkkjfYZJJPWVCEU6772-45-28 03:16:00 Test Item Value Reference Range Interpretation Comments RBC (test code = RBC) 3.60 4.20-5.40 [facility] HospitalChhbqrpCEGOQSUEEH7082-67-11 03:16:00 Test Item Value Reference Range Interpretation Comments WBC (test code = WBC) 9.2 3.7-10.4 [facility] [employer]2017-07-26 03:16:00 Test Item Value Reference Range Interpretation Comments CK MB Index (test 0.9 See_Comment [Automate d message] The code = CK MB Index) system w [employer] generated this result transmit mirna reference range : <=2.5. The reference range was not used to interpr et this result as zahra l/abnormal. [employer]2017-07-26 03:16:00 Test Item Value Reference Range Interpretation Comments Total CK (test code = Total CK) 67 12-191 [facility] [employer]2017-07-26 03:16:00 Test Item Value Reference Range Interpretation Comments Troponin-I (test code no gt See_Comment [Auto mated message] The = Troponin-I) system which g enerated this result transmit mirna reference range : <=0.40. The reference r chuck was not used to interpr et this result as zahra l/abnormal. [employer]2017-07-26 03:16:00 Test Item Value Reference Range Interpretation Comments CK MB (test code = CK MB) 0.6 0.5-3.6 [employer]2017-07-26 03:16:00 Test Item Value Reference Range Interpretation Comments eGFR (test code = eGFR) 44 [facility] [employer]2017-07-26 03:16:00 Test Item Value Reference Range Interpretation Comments A/G Ratio (test code = A/G Ratio) 0.9 0.7-1.6 [employer]2017-07-26 03:16:00 Test Item Value Reference Range Interpretation Comments AST (test code = AST) 14 See_Comment [Auto mated message] The system which ge nerated this result transmit mirna reference range : <=37. The reference range was not used to interpr et this result as zahra l/abnormal. [employer]2017-07-26 03:16:00 Test Item Value Reference Range Interpretation Comments ALT (test code = ALT) 18 See_Comment [Auto mated message] The system which ge nerated this result transmit mirna reference range : <=65. The reference range was not used to interpr et this result as zahra l/abnormal. [employer]2017-07-26 03:16:00 Test Item Value Reference Range Interpretation Comments Albumin Lvl (test code = Albumin Lvl) 3.4 3.5-5.0 [facility] [employer]2017-07-26 03:16:00 Test Item Value Reference Range Interpretation Comments Total Protein (test code = Total 7.3 6.4-8.4 Protein) [facility] 03:16:00 Test Item Value Reference Range Interpretation Comments CK MB Index (test 0.9 See_Comment [Automate d message] The code = CK MB Index) system w [facility] generated this result transmit mirna reference range : <=2.5. The reference range was not used to interpr et this result as zahra l/abnormal. [facility] [id number] 03:16:00 Test Item Value Reference Range Interpretation Comments Total CK (test code = Total CK) 67 12-[address] [facility] [id number] 03:16:00 Test Item Value Reference Range Interpretation Comments Troponin-I (test code no gt See_Comment [Auto mated message] The = Troponin-I) system which g enerated this result transmit mirna reference range : <=0.40. The reference r chuck was not used to interpr et this result as zahra l/abnormal. [facility] [employer]2017-07-26 03:16:00 Test Item Value Reference Range Interpretation Comments CK MB (test code = CK MB) 0.6 0.5-3.6 [facility] [employer]2017-07-26 03:16:00 Test Item Value Reference Range Interpretation Comments eGFR (test code = eGFR) 44 [facility] [employer]2017-07-26 03:16:00 Test Item Value Reference Range Interpretation Comments A/G Ratio (test code = A/G Ratio) 0.9 0.7-1.6 [facility] [employer]2017-07-26 03:16:00 Test Item Value Reference Range Interpretation Comments AST (test code = AST) 14 See_Comment [Auto mated message] The system which ge nerated this result transmit mirna reference range : <=37. The reference range was not used to interpr et this result as zahra l/abnormal. [facility] [employer]2017-07-26 03:16:00 Test Item Value Reference Range Interpretation Comments Calcium Lvl (test code = Calcium Lvl) 8.4 8.5-10.5 [facility]2017-07-26 03:16:00 Test Item Value Reference Range Interpretation Comments ALT (test code = ALT) 18 See_Comment [Auto mated message] The system which ge nerated this result transmit mirna reference range : <=65. The reference range was not used to interpr et this result as zahra l/abnormal. [facility]2017-07-26 03:16:00 Test Item Value Reference Range Interpretation Comments Albumin Lvl (test code = Albumin Lvl) 3.4 3.5-5.0 [facility]2017-07-26 03:16:00 Test Item Value Reference Range Interpretation Comments Total Protein (test code = Total 7.3 6.4-8.4 Protein) [facility]2017-07-26 03:16:00 Test Item Value Reference Range Interpretation Comments Calcium Lvl (test code = Calcium Lvl) 8.4 8.5-10.5 [facility]2017-07-26 03:16:00 Test Item Value Reference Range Interpretation Comments Globulin (test code = Globulin) 3.9 2.7-4.2 [facility]2017-07-26 03:16:00 Test Item Value Reference Range Interpretation Comments B/C Ratio (test code = B/C Ratio) 15 6-25 [facility]2017-07-26 03:16:00 Test Item Value Reference Range Interpretation Comments AGAP (test code = AGAP) 12.7 10.0-20.0 [facility]2017-07-26 03:16:00 Test Item Value Reference Range Interpretation Comments Bili Total (test code = Bili Total) 0.1 0.2-1.3 [facility]2017-07-26 03:16:00 Test Item Value Reference Range Interpretation Comments Alk Phos (test code = Alk Phos) 80 39-136 [facility]2017-07-26 03:16:00 Test Item Value Reference Range Interpretation Comments Creatinine Lvl (test code = Creatinine 1.42 0.50-1.40 Lvl) [facility]2017-07-26 03:16:00 Test Item Value Reference Range Interpretation Comments Globulin (test code = Globulin) 3.9 2.7-4.2 [facility]2017-07-26 03:16:00 Test Item Value Reference Range Interpretation Comments Sodium Lvl (test code = Sodium Lvl) 141 135-145 [facility]2017-07-26 03:16:00 Test Item Value Reference Range Interpretation Comments Potassium Lvl (test code = Potassium 3.7 3.5-5.1 Lvl) [facility]2017-07-26 03:16:00 Test Item Value Reference Range Interpretation Comments Chloride Lvl (test code = Chloride Lvl) 105 95-109 [facility]2017-07-26 03:16:00 Test Item Value Reference Range Interpretation Comments CO2 (test code = CO2) 27 24-32 [facility]2017-07-26 03:16:00 Test Item Value Reference Range Interpretation Comments Glucose Lvl (test code = Glucose Lvl) 79 70-99 [place] [facility]2017-07-26 03:16:00 Test Item Value Reference Range Interpretation Comments BUN (test code = BUN) 21 7-22 [facility] HospitalUxhznzgVIQUYKQLRK9375-67-25 03:16:00 Test Item Value Reference Range Interpretation Comments Basophils # (test code 0.0 See_Comment [Aut omated message] The = Basophils #) system which generated this result tra nsmitted reference range : <=0.2. The reference r chuck was not used to int erpret this result as normal/abnormal . [facility] HospitalCnfxynaWJTWTRBFTM8866-47-37 03:16:00 Test Item Value Reference Range Interpretation Comments Eosinophils # (test code 0.1 See_Comment [A utomated message] The = Eosinophils #) system whic h generated this result tra nsmitted reference range : <=0.5. The reference r chuck was not used to int erpret this result as normal/abnormal . [facility] HospitalYrihkotMODFMKGPGS7580-74-95 03:16:00 Test Item Value Reference Range Interpretation Comments Monocytes # (test code 0.6 See_Comment [Aut omated message] The = Monocytes #) system which generated this result tra nsmitted reference range : <=0.8. The reference r chuck was not used to int erpret this result as normal/abnormal . [place] 095127-07-26 03:16:00 Test Item Value Reference Range Interpretation Comments Lymphocytes # (test code = Lymphocytes 3.0 1.0-5.5 #) [facility]2017-07-26 03:16:00 Test Item Value Reference Range Interpretation Comments B/C Ratio (test code = B/C Ratio) 15 6-25 [facility] HospitalJpljmnpOYUTLBXIZN1004-71-94 03:16:00 Test Item Value Reference Range Interpretation Comments Segs (test code = Segs) 58.6 45.0-75.0 [facility] HospitalCqcsdbmOERRANGDKE5247-19-73 03:16:00 Test Item Value Reference Range Interpretation Comments Segs-Bands # (test code = Segs-Bands #) 5.4 1.5-8.1 [facility] HospitalSotsxqePBZDTAPQGR2748-28-19 03:16:00 Test Item Value Reference Range Interpretation Comments Basophils (test code = 0.4 See_Comment [Aut omated message] The Basophils) system which ge nerated this result tra nsmitted reference range : <=1.0. The reference r chuck was not used to int erpret this result as normal/abnormal . [facility] HospitalDovujleEQVYRWBJPP2979-77-43 03:16:00 Test Item Value Reference Range Interpretation Comments Eosinophils (test code = 1.6 See_Comment [A utomated message] The Eosinophils) system which ge nerated this result tra nsmitted reference range : <=4.0. The reference r chuck was not used to int erpret this result as normal/abnormal . [facility] HospitalThfgzhtBNCTUQIPXI2899-03-31 03:16:00 Test Item Value Reference Range Interpretation Comments Lymphocytes (test code = Lymphocytes) 32.9 20.0-40.0 [facility] HospitalFxopzxcPXVFCPLDXT7105-53-74 03:16:00 Test Item Value Reference Range Interpretation Comments Monocytes (test code = Monocytes) 6.5 2.0-12.0 [facility] HospitalKgdyzrwALJHFIDSVK4694-52-32 03:16:00 Test Item Value Reference Range Interpretation Comments D-Dimer (test code = D-Dimer) no gt [facility] HospitalOntpwhoRYKAQNSAGH6762-60-99 03:16:00 Test Item Value Reference Range Interpretation Comments MPV (test code = MPV) 7.7 7.4-10.4 [facility] HospitalTvguggjTUXHJGENOS4878-06-07 03:16:00 Test Item Value Reference Range Interpretation Comments MCH (test code = MCH) 32.1 pg 27.0-31.0 [facility] HospitalQewuyimPEPQXRZHRL9412-45-92 03:16:00 Test Item Value Reference Range Interpretation Comments MCV (test code = MCV) 97.0 80.0-98.0 [facility]2017-07-26 03:16:00 Test Item Value Reference Range Interpretation Comments AGAP (test code = AGAP) 12.7 10.0-20.0 [facility] HospitalNucumljAFBUMIZPKM0413-23-76 03:16:00 Test Item Value Reference Range Interpretation Comments Platelet (test code = Platelet) 305 133-450 [facility] HospitalCxzqdhdNUSHBQJDUI3683-76-96 03:16:00 Test Item Value Reference Range Interpretation Comments MCHC (test code = MCHC) 33.1 32.0-36.0 [facility] HospitalXarchqiFRCUMRCULI7051-15-13 03:16:00 Test Item Value Reference Range Interpretation Comments RDW (test code = RDW) 14.4 11.5-14.5 [facility] HospitalOctrelsAKZSSREFKL3487-91-49 03:16:00 Test Item Value Reference Range Interpretation Comments Hct (test code = Hct) 34.9 36.0-48.0 [facility] HospitalIjpctvaOFTBAIARND5383-92-78 03:16:00 Test Item Value Reference Range Interpretation Comments Hgb (test code = Hgb) 11.6 12.0-16.0 [facility] HospitalWgiltlzAFMGSSOLVG5171-04-91 03:16:00 Test Item Value Reference Range Interpretation Comments RBC (test code = RBC) 3.60 4.20-5.40 [facility] HospitalHtufjpoUTZMKVGDCU1984-39-88 03:16:00 Test Item Value Reference Range Interpretation Comments WBC (test code = WBC) 9.2 3.7-10.4 [facility]2017-07-26 03:16:00 Test Item Value Reference Range Interpretation Comments Bili Total (test code = Bili Total) 0.1 0.2-1.3 [facility]2017-07-26 03:16:00 Test Item Value Reference Range Interpretation Comments Alk Phos (test code = Alk Phos) 80 39-136 [facility]2017-07-26 03:16:00 Test Item Value Reference Range Interpretation Comments Creatinine Lvl (test code = Creatinine 1.42 0.50-1.40 Lvl) [facility]2017-07-26 03:16:00 Test Item Value Reference Range Interpretation Comments Sodium Lvl (test code = Sodium Lvl) 141 135-145 [facility]2017-07-26 03:16:00 Test Item Value Reference Range Interpretation Comments Potassium Lvl (test code = Potassium 3.7 3.5-5.1 Lvl) [place] 307947-07-26 03:16:00 Test Item Value Reference Range Interpretation Comments Chloride Lvl (test code = Chloride Lvl) 105 95-109 [place] 307947-07-26 03:16:00 Test Item Value Reference Range Interpretation Comments CO2 (test code = CO2) 27 24-32 [place] 307947-07-26 03:16:00 Test Item Value Reference Range Interpretation Comments Glucose Lvl (test code = Glucose Lvl) 79 70-99 [facility]2017-07-26 03:16:00 Test Item Value Reference Range Interpretation Comments BUN (test code = BUN) 21 7-22 [facility] HospitalOkrjnlgJJFHBJEUZY8484-94-74 03:16:00 Test Item Value Reference Range Interpretation Comments Basophils # (test code 0.0 See_Comment [Aut omated message] The = Basophils #) system which generated this result tra nsmitted reference range : <=0.2. The reference r chuck was not used to int erpret this result as normal/abnormal . [facility] HospitalVvojwnpJVOKQREXXD3095-83-45 03:16:00 Test Item Value Reference Range Interpretation Comments Eosinophils # (test code 0.1 See_Comment [A utomated message] The = Eosinophils #) system whic h generated this result tra nsmitted reference range : <=0.5. The reference r chuck was not used to int erpret this result as normal/abnormal . [facility] HospitalOfluawpGDDRZCBLLQ6404-37-29 03:16:00 Test Item Value Reference Range Interpretation Comments Monocytes # (test code 0.6 See_Comment [Aut omated message] The = Monocytes #) system which generated this result tra nsmitted reference range : <=0.8. The reference r chuck was not used to int erpret this result as normal/abnormal . [facility] HospitalCuyozooZINVKYMPIY7720-98-33 03:16:00 Test Item Value Reference Range Interpretation Comments Lymphocytes # (test code = Lymphocytes 3.0 1.0-5.5 #) [facility] HospitalRzhwfswQNUVQSSMXZ0823-04-98 03:16:00 Test Item Value Reference Range Interpretation Comments Segs (test code = Segs) 58.6 45.0-75.0 [facility] HospitalRvbxbgzHXCTAGLLIS8257-28-60 03:16:00 Test Item Value Reference Range Interpretation Comments Segs-Bands # (test code = Segs-Bands #) 5.4 1.5-8.1 [facility] HospitalTtwrqvtAAGMBZYZYM7353-67-14 03:16:00 Test Item Value Reference Range Interpretation Comments Basophils (test code = 0.4 See_Comment [Aut omated message] The Basophils) system which ge nerated this result tra nsmitted reference range : <=1.0. The reference r chuck was not used to int erpret this result as normal/abnormal . [facility] HospitalIlzhetsXBTYRBPMFP3318-92-57 03:16:00 Test Item Value Reference Range Interpretation Comments Eosinophils (test code = 1.6 See_Comment [A utomated message] The Eosinophils) system which ge nerated this result tra nsmitted reference range : <=4.0. The reference r chuck was not used to int erpret this result as normal/abnormal . [facility] HospitalMsenpasDSDKCKRESQ2463-14-90 03:16:00 Test Item Value Reference Range Interpretation Comments Lymphocytes (test code = Lymphocytes) 32.9 20.0-40.0 [facility] HospitalFayzqfqCARBRWEUNT1552-62-51 03:16:00 Test Item Value Reference Range Interpretation Comments Monocytes (test code = Monocytes) 6.5 2.0-12.0 [facility] HospitalRtqzmlnGWZAUUCLYA0644-02-22 03:16:00 Test Item Value Reference Range Interpretation Comments D-Dimer (test code = D-Dimer) no gt [facility] HospitalKqzeaxiQVMWDXPVYD6754-55-57 03:16:00 Test Item Value Reference Range Interpretation Comments MPV (test code = MPV) 7.7 7.4-10.4 [facility] HospitalMczhoscFILSAHLMDG2214-42-22 03:16:00 Test Item Value Reference Range Interpretation Comments MCH (test code = MCH) 32.1 pg 27.0-31.0 [facility] HospitalIubxhbhTKPYSATIYN5166-68-27 03:16:00 Test Item Value Reference Range Interpretation Comments MCV (test code = MCV) 97.0 80.0-98.[address] [facility]QiztxbbHMVKPJQLBG0488-81-77 03:16:00 Test Item Value Reference Range Interpretation Comments Platelet (test code = Platelet) 305 133-450 [facility]ughdqbFOQKHBJAAK1715-93-82 03:16:00 Test Item Value Reference Range Interpretation Comments MCHC (test code = MCHC) 33.1 32.0-36.[address] [facility]NksovjiHNRZZBSGRE9141-96-27 03:16:00 Test Item Value Reference Range Interpretation Comments RDW (test code = RDW) 14.4 11.5-14.[address] [facility]NzldcbqKZQNTSICNP9894-98-14 03:16:00 Test Item Value Reference Range Interpretation Comments Hct (test code = Hct) 34.9 36.0-48.0 [facility]PfslthnYTIQQZXJRT3095-33-23 03:16:00 Test Item Value Reference Range Interpretation Comments Hgb (test code = Hgb) 11.6 12.0-16.[address] [facility]NuaplrhVJOEHRZRHX0595-62-99 03:16:00 Test Item Value Reference Range Interpretation Comments RBC (test code = RBC) 3.60 4.20-5.40 [facility] InspspnLMABJBJOZQ1052-71-70 03:16:00 Test Item Value Reference Range Interpretation Comments WBC (test code = WBC) 9.2 3.7-10.[address] [facility] HospitalHonestly.comCARAltobeamAC OHYFDHL2780-14-49 03:16:00 Test Item Value Reference Range Interpretation Comments CK MB Index (test code = CK MB Index) 0.[address] [facility]annCARDIAC DRSMVFY7575-07-40 03:16:00 Test Item Value Reference Range Interpretation Comments Total CK (test code = Total CK) 67 12-[address] [facility]annCARDIAC TQXFDUS4290-36-94 03:16:00 Test Item Value Reference Range Interpretation Comments Troponin-I (test code = Troponin-I) no gt <=0.[address] [facility] HospitalHonestly.comCARDIAC XXUFKFN3232-62-72 03:16:00 Test Item Value Reference Range Interpretation Comments CK MB (test code = CK MB) 0.6 0.5-3.6 [facility] ScalityCHEM LUSYX7646-25-30 03:16:00 Test Item Value Reference Range Interpretation Comments eGFR (test code = eGFR) 44 [facility]2017-07-26 03:16:00 Test Item Value Reference Range Interpretation Comments A/G Ratio (test code = A/G Ratio) 0.9 0.7-1.6 [facility]2017-07-26 03:16:00 Test Item Value Reference Range Interpretation Comments AST (test code = AST) 14 <=37 [facility]2017-07-26 03:16:00 Test Item Value Reference Range Interpretation Comments ALT (test code = ALT) 18 <=65 [facility]2017-07-26 03:16:00 Test Item Value Reference Range Interpretation Comments Albumin Lvl (test code = Albumin Lvl) 3.4 3.5-5.0 [facility]2017-07-26 03:16:00 Test Item Value Reference Range Interpretation Comments Total Protein (test code = Total 7.3 6.4-8.4 Protein) [facility]2017-07-26 03:16:00 Test Item Value Reference Range Interpretation Comments Calcium Lvl (test code = Calcium Lvl) 8.4 8.5-10.5 [facility]2017-07-26 03:16:00 Test Item Value Reference Range Interpretation Comments Globulin (test code = Globulin) 3.9 2.7-4.2 [facility]2017-07-26 03:16:00 Test Item Value Reference Range Interpretation Comments B/C Ratio (test code = B/C Ratio) 15 6-25 [facility]2017-07-26 03:16:00 Test Item Value Reference Range Interpretation Comments AGAP (test code = AGAP) 12.7 10.0-20.0 [facility]2017-07-26 03:16:00 Test Item Value Reference Range Interpretation Comments Bili Total (test code = Bili Total) 0.1 0.2-1.3 [facility]2017-07-26 03:16:00 Test Item Value Reference Range Interpretation Comments Alk Phos (test code = Alk Phos) 80 39-136 [facility]2017-07-26 03:16:00 Test Item Value Reference Range Interpretation Comments Creatinine Lvl (test code = Creatinine 1.42 0.50-1.40 Lvl) [place] 307947-07-26 03:16:00 Test Item Value Reference Range Interpretation Comments Sodium Lvl (test code = Sodium Lvl) 141 135-145 [facility]2017-07-26 03:16:00 Test Item Value Reference Range Interpretation Comments Potassium Lvl (test code = Potassium 3.7 3.5-5.1 Lvl) [facility]2017-07-26 03:16:00 Test Item Value Reference Range Interpretation Comments Chloride Lvl (test code = Chloride Lvl) 105 95-109 [place] 307947-07-26 03:16:00 Test Item Value Reference Range Interpretation Comments CO2 (test code = CO2) 27 24-32 [place] 307947-07-26 03:16:00 Test Item Value Reference Range Interpretation Comments Glucose Lvl (test code = Glucose Lvl) 79 70-99 [place] 307947-07-26 03:16:00 Test Item Value Reference Range Interpretation Comments BUN (test code = BUN) 21 7-22 [facility] HospitalQjvvskoXIZZNPWOHH1287-81-63 03:16:00 Test Item Value Reference Range Interpretation Comments Basophils # (test code = Basophils #) 0.0 <=0.2 [place] 095127-07-26 03:16:00 Test Item Value Reference Range Interpretation Comments Eosinophils # (test code = Eosinophils 0.1 <=0.5 #) [facility] HospitalJfivkyvEBKVHMFXRQ9649-94-82 03:16:00 Test Item Value Reference Range Interpretation Comments Monocytes # (test code = Monocytes #) 0.6 <=0.8 [place] 095127-07-26 03:16:00 Test Item Value Reference Range Interpretation Comments Lymphocytes # (test code = Lymphocytes 3.0 1.0-5.5 #) [facility] HospitalXoipifuMHDYSBGPCQ3784-64-53 03:16:00 Test Item Value Reference Range Interpretation Comments Segs (test code = Segs) 58.6 45.0-75.0 [facility] HospitalUrxonemRAUBMEGZDL9296-85-02 03:16:00 Test Item Value Reference Range Interpretation Comments Segs-Bands # (test code = Segs-Bands #) 5.4 1.5-8.1 [place] 095127-07-26 03:16:00 Test Item Value Reference Range Interpretation Comments Basophils (test code = Basophils) 0.4 <=1.0 [facility] HospitalKvekkvoWYKJCEKZMD4727-18-46 03:16:00 Test Item Value Reference Range Interpretation Comments Eosinophils (test code = Eosinophils) 1.6 <=4.0 [facility] HospitalPklfqaqURVTWGIPGX2523-30-59 03:16:00 Test Item Value Reference Range Interpretation Comments Lymphocytes (test code = Lymphocytes) 32.9 20.0-40.0 [facility] HospitalUygqmfhIRINBKEZLE3192-86-85 03:16:00 Test Item Value Reference Range Interpretation Comments Monocytes (test code = Monocytes) 6.5 2.0-12.0 [facility] HospitalLvavsltIIBSIYFJAV3562-68-97 03:16:00 Test Item Value Reference Range Interpretation Comments D-Dimer (test code = D-Dimer) no gt [facility] HospitalLifchpsIDNQTAUZVI2837-57-20 03:16:00 Test Item Value Reference Range Interpretation Comments MPV (test code = MPV) 7.7 7.4-10.4 [facility] HospitalEbjgwjtPRSFNFQCFC6100-96-00 03:16:00 Test Item Value Reference Range Interpretation Comments MCH (test code = MCH) 32.1 pg 27.0-31.0 [facility] HospitalEdsezygSGANLFHAXP3415-23-84 03:16:00 Test Item Value Reference Range Interpretation Comments MCV (test code = MCV) 97.0 80.0-98.0 [facility] HospitalAepdkmhXSCSKHQFVG0623-94-35 03:16:00 Test Item Value Reference Range Interpretation Comments Platelet (test code = Platelet) 305 133-450 [facility] HospitalGvgpnzuLGDYSBHAHV6483-39-94 03:16:00 Test Item Value Reference Range Interpretation Comments MCHC (test code = MCHC) 33.1 32.0-36.0 [facility] HospitalQbxxtspDFWHSBQMHJ2696-16-17 03:16:00 Test Item Value Reference Range Interpretation Comments RDW (test code = RDW) 14.4 11.5-14.5 [facility] HospitalUjsktfmKXKUZOAADH6146-47-94 03:16:00 Test Item Value Reference Range Interpretation Comments Hct (test code = Hct) 34.9 36.0-48.0 [facility] HospitalLtdugcxAFIURDKMTN3415-88-06 03:16:00 Test Item Value Reference Range Interpretation Comments Hgb (test code = Hgb) 11.6 12.0-16.0 [facility] HospitalSkwqhnkWBTCJYYQJH9783-04-07 03:16:00 Test Item Value Reference Range Interpretation Comments RBC (test code = RBC) 3.60 4.20-5.40 [facility] HospitalErybfiuJYKTIGFWYM5068-30-57 03:16:00 Test Item Value Reference Range Interpretation Comments WBC (test code = WBC) 9.2 3.7-10.4 [facility]2015-11-01 10:36:00 Test Item Value Reference Range Interpretation Comments Magnesium Lvl (test code = Magnesium 1.9 1.8-2.4 Lvl) [facility]2015-11-01 10:36:00 Test Item Value Reference Range Interpretation Comments eGFR (test code = eGFR) 106 [facility]2015-11-01 10:36:00 Test Item Value Reference Range Interpretation Comments Sodium Lvl (test code = Sodium Lvl) 143 135-145 [facility]2015-11-01 10:36:00 Test Item Value Reference Range Interpretation Comments Creatinine Lvl (test code = Creatinine 0.7 0.5-1.4 Lvl) [facility]2015-11-01 10:36:00 Test Item Value Reference Range Interpretation Comments Chloride Lvl (test code = Chloride Lvl) 114 95-109 [facility]2015-11-01 10:36:00 Test Item Value Reference Range Interpretation Comments Potassium Lvl (test code = Potassium 3.6 3.5-5.1 Lvl) [facility]2015-11-01 10:36:00 Test Item Value Reference Range Interpretation Comments Total Protein (test code = Total 5.9 6.4-8.4 Protein) [facility]2015-11-01 10:36:00 Test Item Value Reference Range Interpretation Comments Globulin (test code = Globulin) 2.8 2.0-4.0 [facility]2015-11-01 10:36:00 Test Item Value Reference Range Interpretation Comments Albumin Lvl (test code = Albumin Lvl) 3.1 3.5-5.0 [facility]2015-11-01 10:36:00 Test Item Value Reference Range Interpretation Comments A/G Ratio (test code = A/G Ratio) 1.1 0.7-1.6 [facility]2015-11-01 10:36:00 Test Item Value Reference Range Interpretation Comments Alk Phos (test code = Alk Phos) 36 39-136 [facility]2015-11-01 10:36:00 Test Item Value Reference Range Interpretation Comments ALT (test code = ALT) 19 See_Comment [Auto mated message] The system which ge nerated this result transmit mirna reference range : <=65. The reference range was not used to interpr et this result as zahra l/abnormal. [facility]2015-11-01 10:36:00 Test Item Value Reference Range Interpretation Comments Bili Total (test code = Bili Total) 0.4 0.2-1.3 [facility]2015-11-01 10:36:00 Test Item Value Reference Range Interpretation Comments AST (test code = AST) 17 See_Comment [Auto mated message] The system which ge nerated this result transmit mirna reference range : <=37. The reference range was not used to interpr et this result as zahra l/abnormal. [facility]2015-11-01 10:36:00 Test Item Value Reference Range Interpretation Comments AGAP (test code = AGAP) 10.6 10.0-20.0 [facility]2015-11-01 10:36:00 Test Item Value Reference Range Interpretation Comments CO2 (test code = CO2) 22 24-32 [facility]2015-11-01 10:36:00 Test Item Value Reference Range Interpretation Comments B/C Ratio (test code = B/C Ratio) 24 6-25 [facility]2015-11-01 10:36:00 Test Item Value Reference Range Interpretation Comments Calcium Lvl (test code = Calcium Lvl) 7.8 8.5-10.5 [facility]2015-11-01 10:36:00 Test Item Value Reference Range Interpretation Comments Glucose Lvl (test code = Glucose Lvl) 93 70-99 [facility]2015-11-01 10:36:00 Test Item Value Reference Range Interpretation Comments BUN (test code = BUN) 17 7-22 [facility] HospitalFlnynktKDSYEDUCZJ7200-99-11 10:36:00 Test Item Value Reference Range Interpretation Comments Basophils # (test code 0.0 See_Comment [Aut omated message] The = Basophils #) system which generated this result tra nsmitted reference range : <=0.2. The reference r chuck was not used to int erpret this result as normal/abnormal . [facility] HospitalEqvcbocOVERPAFDAF9669-71-60 10:36:00 Test Item Value Reference Range Interpretation Comments Eosinophils # (test code 0.1 See_Comment [A utomated message] The = Eosinophils #) system whic h generated this result tra nsmitted reference range : <=0.5. The reference r chuck was not used to int erpret this result as normal/abnormal . [facility] HospitalRlqchrbZCRUNXCNNE9495-89-43 10:36:00 Test Item Value Reference Range Interpretation Comments Monocytes # (test code 0.9 See_Comment [Aut omated message] The = Monocytes #) system which generated this result tra nsmitted reference range : <=0.8. The reference r chuck was not used to int erpret this result as normal/abnormal . [facility] HospitalGbayaaeEPVCBDGCQM7983-04-26 10:36:00 Test Item Value Reference Range Interpretation Comments Lymphocytes # (test code = Lymphocytes 1.8 1.0-5.5 #) [facility] HospitalGbsbhizDKJNZGJANT2782-72-15 10:36:00 Test Item Value Reference Range Interpretation Comments Segs-Bands # (test code = Segs-Bands #) 7.4 1.5-8.1 [facility] HospitalBjydnteLUKHERNJIB4513-35-99 10:36:00 Test Item Value Reference Range Interpretation Comments Basophils (test code = 0.3 See_Comment [Aut omated message] The Basophils) system which ge nerated this result tra nsmitted reference range : <=1.0. The reference r chuck was not used to int erpret this result as normal/abnormal . [facility] HospitalSzflkelCYYLBLYISJ2543-92-76 10:36:00 Test Item Value Reference Range Interpretation Comments Lymphocytes (test code = Lymphocytes) 17.4 20.0-40.0 [facility] HospitalWbrflunZHCIFTNOOH4686-64-75 10:36:00 Test Item Value Reference Range Interpretation Comments Eosinophils (test code = 0.9 See_Comment [A utomated message] The Eosinophils) system which ge nerated this result tra nsmitted reference range : <=4.0. The reference r chuck was not used to int erpret this result as normal/abnormal . [facility] HospitalBndfhkgWMCMLTBRHU5093-40-32 10:36:00 Test Item Value Reference Range Interpretation Comments Monocytes (test code = Monocytes) 9.2 2.0-12.0 [facility] HospitalUcvsdqyFFWNMNJVRI4515-58-93 10:36:00 Test Item Value Reference Range Interpretation Comments Segs (test code = Segs) 72.2 45.0-75.0 [facility] HospitalSvrmtvoXMXOCZZPTH1000-59-21 10:36:00 Test Item Value Reference Range Interpretation Comments WBC (test code = WBC) 10.3 3.7-10.4 [facility] HospitalXhbdzypWLDIFSMASV1763-55-32 10:36:00 Test Item Value Reference Range Interpretation Comments Platelet (test code = Platelet) 231 133-450 [facility]UtvqkcbCESJPQQRHJ7083-18-22 10:36:00 Test Item Value Reference Range Interpretation Comments RDW (test code = RDW) 13.5 11.5-14.5 [facility] HospitalDhfptwkSQHRIFJSKZ5727-76-69 10:36:00 Test Item Value Reference Range Interpretation Comments Hgb (test code = Hgb) 10.9 12.0-16.0 [facility] HospitalYcowwgdNUREINDGTU1815-81-24 10:36:00 Test Item Value Reference Range Interpretation Comments MPV (test code = MPV) 7.3 7.4-10.4 [facility] HospitalQodmgvoWZBBZICADT9427-58-70 10:36:00 Test Item Value Reference Range Interpretation Comments MCHC (test code = MCHC) 32.0 32.0-36.0 [facility] HospitalQmjaotdARCDQEGAYP0818-96-40 10:36:00 Test Item Value Reference Range Interpretation Comments MCH (test code = MCH) 32.4 pg 27.0-31.0 [facility] HospitalUkixqwqAUEUKQYBVS2108-42-39 10:36:00 Test Item Value Reference Range Interpretation Comments MCV (test code = MCV) 101.2 80.0-98.0 [facility] HospitalBrtnioiQJTHAJWOCU1357-02-57 10:36:00 Test Item Value Reference Range Interpretation Comments Hct (test code = Hct) 34.0 36.0-48.0 [facility] HospitalDjxvycsTAEIOIABVV4921-17-49 10:36:00 Test Item Value Reference Range Interpretation Comments RBC (test code = RBC) 3.36 4.20-5.40 [facility]2015-11-01 10:36:00 Test Item Value Reference Range Interpretation Comments Magnesium Lvl (test code = Magnesium 1.9 1.8-2.4 Lvl) [facility]2015-11-01 10:36:00 Test Item Value Reference Range Interpretation Comments eGFR (test code = eGFR) 106 [facility]2015-11-01 10:36:00 Test Item Value Reference Range Interpretation Comments Sodium Lvl (test code = Sodium Lvl) 143 135-145 [facility]2015-11-01 10:36:00 Test Item Value Reference Range Interpretation Comments Creatinine Lvl (test code = Creatinine 0.7 0.5-1.4 Lvl) [facility]2015-11-01 10:36:00 Test Item Value Reference Range Interpretation Comments Chloride Lvl (test code = Chloride Lvl) 114 95-109 [facility]2015-11-01 10:36:00 Test Item Value Reference Range Interpretation Comments Potassium Lvl (test code = Potassium 3.6 3.5-5.1 Lvl) [facility]2015-11-01 10:36:00 Test Item Value Reference Range Interpretation Comments Total Protein (test code = Total 5.9 6.4-8.4 Protein) [facility]2015-11-01 10:36:00 Test Item Value Reference Range Interpretation Comments Globulin (test code = Globulin) 2.8 2.0-4.0 [facility]2015-11-01 10:36:00 Test Item Value Reference Range Interpretation Comments Albumin Lvl (test code = Albumin Lvl) 3.1 3.5-5.0 [facility]2015-11-01 10:36:00 Test Item Value Reference Range Interpretation Comments A/G Ratio (test code = A/G Ratio) 1.1 0.7-1.6 [facility]2015-11-01 10:36:00 Test Item Value Reference Range Interpretation Comments Alk Phos (test code = Alk Phos) 36 39-136 [facility]2015-11-01 10:36:00 Test Item Value Reference Range Interpretation Comments ALT (test code = ALT) 19 See_Comment [Auto mated message] The system which ge nerated this result transmit mirna reference range : <=65. The reference range was not used to interpr et this result as zahra l/abnormal. [facility]2015-11-01 10:36:00 Test Item Value Reference Range Interpretation Comments Bili Total (test code = Bili Total) 0.4 0.2-1.3 [facility]2015-11-01 10:36:00 Test Item Value Reference Range Interpretation Comments AST (test code = AST) 17 See_Comment [Auto mated message] The system which ge nerated this result transmit mirna reference range : <=37. The reference range was not used to interpr et this result as zahra l/abnormal. [facility]2015-11-01 10:36:00 Test Item Value Reference Range Interpretation Comments AGAP (test code = AGAP) 10.6 10.0-20.0 [facility]2015-11-01 10:36:00 Test Item Value Reference Range Interpretation Comments CO2 (test code = CO2) 22 24-32 [place] 307945-11-01 10:36:00 Test Item Value Reference Range Interpretation Comments B/C Ratio (test code = B/C Ratio) 24 6-25 [place] 307945-11-01 10:36:00 Test Item Value Reference Range Interpretation Comments Calcium Lvl (test code = Calcium Lvl) 7.8 8.5-10.5 [facility]2015-11-01 10:36:00 Test Item Value Reference Range Interpretation Comments Glucose Lvl (test code = Glucose Lvl) 93 70-99 [facility]2015-11-01 10:36:00 Test Item Value Reference Range Interpretation Comments BUN (test code = BUN) 17 7-22 [facility] HospitalRtsophiCZADBAWTAI4246-29-55 10:36:00 Test Item Value Reference Range Interpretation Comments Basophils # (test code 0.0 See_Comment [Aut omated message] The = Basophils #) system which generated this result tra nsmitted reference range : <=0.2. The reference r chuck was not used to int erpret this result as normal/abnormal . [facility] HospitalVjstcpkXPFHYUPAJV0761-09-75 10:36:00 Test Item Value Reference Range Interpretation Comments Eosinophils # (test code 0.1 See_Comment [A utomated message] The = Eosinophils #) system whic h generated this result tra nsmitted reference range : <=0.5. The reference r chuck was not used to int erpret this result as normal/abnormal . [facility] HospitalGpobhmgEIEYERNFSB1827-74-18 10:36:00 Test Item Value Reference Range Interpretation Comments Monocytes # (test code 0.9 See_Comment [Aut omated message] The = Monocytes #) system which generated this result tra nsmitted reference range : <=0.8. The reference r chuck was not used to int erpret this result as normal/abnormal . [facility] HospitalCaoghrtYQIKJTYCYB0487-95-89 10:36:00 Test Item Value Reference Range Interpretation Comments Lymphocytes # (test code = Lymphocytes 1.8 1.0-5.5 #) [facility] HospitalNsmadrmWGZQOZGTQP8334-45-15 10:36:00 Test Item Value Reference Range Interpretation Comments Segs-Bands # (test code = Segs-Bands #) 7.4 1.5-8.1 [facility] HospitalOdowbyqYXDFJMAMCR7030-71-82 10:36:00 Test Item Value Reference Range Interpretation Comments Basophils (test code = 0.3 See_Comment [Aut omated message] The Basophils) system which ge nerated this result tra nsmitted reference range : <=1.0. The reference r chuck was not used to int erpret this result as normal/abnormal . [facility] HospitalMslastbQKWDSBQLJD7711-98-66 10:36:00 Test Item Value Reference Range Interpretation Comments Lymphocytes (test code = Lymphocytes) 17.4 20.0-40.0 [facility] HospitalParrculJOGCDOLAFR9717-08-19 10:36:00 Test Item Value Reference Range Interpretation Comments Eosinophils (test code = 0.9 See_Comment [A utomated message] The Eosinophils) system which ge nerated this result tra nsmitted reference range : <=4.0. The reference r chuck was not used to int erpret this result as normal/abnormal . [facility] HospitalDmhftfdYFENJNWZWR8295-39-71 10:36:00 Test Item Value Reference Range Interpretation Comments Monocytes (test code = Monocytes) 9.2 2.0-12.0 [facility] HospitalZdolrxlBHOZSJFOID8596-66-76 10:36:00 Test Item Value Reference Range Interpretation Comments Segs (test code = Segs) 72.2 45.0-75.0 [facility] HospitalDtwuqyiXYDJNSWACJ5619-44-87 10:36:00 Test Item Value Reference Range Interpretation Comments WBC (test code = WBC) 10.3 3.7-10.4 [facility] HospitalVztnpeaBHFBLDZWPX8201-43-04 10:36:00 Test Item Value Reference Range Interpretation Comments Platelet (test code = Platelet) 231 133-450 [facility] HospitalIymyhqjQIHSNLOQOQ1690-17-05 10:36:00 Test Item Value Reference Range Interpretation Comments RDW (test code = RDW) 13.5 11.5-14.5 [facility] HospitalRjcdsyuVOKGYTTFAW5169-35-78 10:36:00 Test Item Value Reference Range Interpretation Comments Hgb (test code = Hgb) 10.9 12.0-16.0 [facility] HospitalRielcieHMUXSUQBUG8421-17-70 10:36:00 Test Item Value Reference Range Interpretation Comments MPV (test code = MPV) 7.3 7.4-10.4 [facility] HospitalJefgdukCSWMAUROZK0624-50-18 10:36:00 Test Item Value Reference Range Interpretation Comments MCHC (test code = MCHC) 32.0 32.0-36.0 [facility] HospitalDxujzfcLYVICGMIJV8356-80-10 10:36:00 Test Item Value Reference Range Interpretation Comments MCH (test code = MCH) 32.4 pg 27.0-31.0 [facility] HospitalUnpnsymSXBTKEPUZM2930-06-40 10:36:00 Test Item Value Reference Range Interpretation Comments MCV (test code = MCV) 101.2 80.0-98.0 [facility] HospitalJzaqxsbDBPMONLMYO3705-77-56 10:36:00 Test Item Value Reference Range Interpretation Comments Hct (test code = Hct) 34.0 36.0-48.0 [facility] HospitalKedfqxnUAEGKERQUX0117-79-41 10:36:00 Test Item Value Reference Range Interpretation Comments RBC (test code = RBC) 3.36 4.20-5.40 [facility]2015-11-01 10:36:00 Test Item Value Reference Range Interpretation Comments Magnesium Lvl (test code = Magnesium 1.9 1.8-2.4 Lvl) [facility]2015-11-01 10:36:00 Test Item Value Reference Range Interpretation Comments eGFR (test code = eGFR) 106 [facility]2015-11-01 10:36:00 Test Item Value Reference Range Interpretation Comments Sodium Lvl (test code = Sodium Lvl) 143 135-145 [facility]2015-11-01 10:36:00 Test Item Value Reference Range Interpretation Comments Creatinine Lvl (test code = Creatinine 0.7 0.5-1.4 Lvl) [facility]2015-11-01 10:36:00 Test Item Value Reference Range Interpretation Comments Chloride Lvl (test code = Chloride Lvl) 114 95-109 [facility]2015-11-01 10:36:00 Test Item Value Reference Range Interpretation Comments Potassium Lvl (test code = Potassium 3.6 3.5-5.1 Lvl) [facility]2015-11-01 10:36:00 Test Item Value Reference Range Interpretation Comments Total Protein (test code = Total 5.9 6.4-8.4 Protein) [facility]2015-11-01 10:36:00 Test Item Value Reference Range Interpretation Comments Globulin (test code = Globulin) 2.8 2.0-4.0 [place] 307945-11-01 10:36:00 Test Item Value Reference Range Interpretation Comments Albumin Lvl (test code = Albumin Lvl) 3.1 3.5-5.0 [facility]2015-11-01 10:36:00 Test Item Value Reference Range Interpretation Comments A/G Ratio (test code = A/G Ratio) 1.1 0.7-1.6 [facility]2015-11-01 10:36:00 Test Item Value Reference Range Interpretation Comments Alk Phos (test code = Alk Phos) 36 39-136 [facility]2015-11-01 10:36:00 Test Item Value Reference Range Interpretation Comments ALT (test code = ALT) 19 See_Comment [Auto mated message] The system which ge nerated this result transmit mirna reference range : <=65. The reference range was not used to interpr et this result as zahra l/abnormal. [facility]2015-11-01 10:36:00 Test Item Value Reference Range Interpretation Comments Bili Total (test code = Bili Total) 0.4 0.2-1.3 [facility]2015-11-01 10:36:00 Test Item Value Reference Range Interpretation Comments AST (test code = AST) 17 See_Comment [Auto mated message] The system which ge nerated this result transmit mirna reference range : <=37. The reference range was not used to interpr et this result as zahra l/abnormal. [facility]2015-11-01 10:36:00 Test Item Value Reference Range Interpretation Comments AGAP (test code = AGAP) 10.6 10.0-20.0 [facility]2015-11-01 10:36:00 Test Item Value Reference Range Interpretation Comments CO2 (test code = CO2) 22 24-32 [facility]2015-11-01 10:36:00 Test Item Value Reference Range Interpretation Comments B/C Ratio (test code = B/C Ratio) 24 6-25 [place] 307945-11-01 10:36:00 Test Item Value Reference Range Interpretation Comments Calcium Lvl (test code = Calcium Lvl) 7.8 8.5-10.5 [place] 307945-11-01 10:36:00 Test Item Value Reference Range Interpretation Comments Glucose Lvl (test code = Glucose Lvl) 93 70-99 [facility]2015-11-01 10:36:00 Test Item Value Reference Range Interpretation Comments BUN (test code = BUN) 17 7-22 [facility] HospitalCdnexujDHOKBOSIVJ9874-91-06 10:36:00 Test Item Value Reference Range Interpretation Comments Basophils # (test code 0.0 See_Comment [Aut omated message] The = Basophils #) system which generated this result tra nsmitted reference range : <=0.2. The reference r chuck was not used to int erpret this result as normal/abnormal . [facility] HospitalVpkcyiqHDAWAFFWGC3721-60-75 10:36:00 Test Item Value Reference Range Interpretation Comments Eosinophils # (test code 0.1 See_Comment [A utomated message] The = Eosinophils #) system whic h generated this result tra nsmitted reference range : <=0.5. The reference r chuck was not used to int erpret this result as normal/abnormal . [facility] HospitalPnxvlqdAGZCSCXIIH3483-42-88 10:36:00 Test Item Value Reference Range Interpretation Comments Monocytes # (test code 0.9 See_Comment [Aut omated message] The = Monocytes #) system which generated this result tra nsmitted reference range : <=0.8. The reference r chuck was not used to int erpret this result as normal/abnormal . [facility] HospitalVxrwmktEJFSGVLQMD8466-07-74 10:36:00 Test Item Value Reference Range Interpretation Comments Lymphocytes # (test code = Lymphocytes 1.8 1.0-5.5 #) [facility] HospitalNwmurzsSFTAPAGBDM4014-33-94 10:36:00 Test Item Value Reference Range Interpretation Comments Segs-Bands # (test code = Segs-Bands #) 7.4 1.5-8.1 [facility] HospitalRbyfmpgBSAZCDMIFG0248-29-25 10:36:00 Test Item Value Reference Range Interpretation Comments Basophils (test code = 0.3 See_Comment [Aut omated message] The Basophils) system which ge nerated this result tra nsmitted reference range : <=1.0. The reference r chuck was not used to int erpret this result as normal/abnormal . [facility] HospitalCxcygguISZDTRGFEJ8153-59-58 10:36:00 Test Item Value Reference Range Interpretation Comments Lymphocytes (test code = Lymphocytes) 17.4 20.0-40.0 [facility] HospitalFgudxfpTEXKPLVASC0607-66-88 10:36:00 Test Item Value Reference Range Interpretation Comments Eosinophils (test code = 0.9 See_Comment [A utomated message] The Eosinophils) system which ge nerated this result tra nsmitted reference range : <=4.0. The reference r chuck was not used to int erpret this result as normal/abnormal . [facility] HospitalAfqsjnsWNANPMNSVZ6070-23-31 10:36:00 Test Item Value Reference Range Interpretation Comments Monocytes (test code = Monocytes) 9.2 2.0-12.0 [facility] HospitalGbiofkkJOTMUCHGTC6428-93-35 10:36:00 Test Item Value Reference Range Interpretation Comments Segs (test code = Segs) 72.2 45.0-75.0 [facility] HospitalQrbvbodVYYRSBXCFX9118-12-85 10:36:00 Test Item Value Reference Range Interpretation Comments WBC (test code = WBC) 10.3 3.7-10.4 [facility] HospitalRpekzkjVHNSOBYBAB6808-40-22 10:36:00 Test Item Value Reference Range Interpretation Comments Platelet (test code = Platelet) 231 133-450 [facility] HospitalIvervdmNOPZVQXNLR7679-00-05 10:36:00 Test Item Value Reference Range Interpretation Comments RDW (test code = RDW) 13.5 11.5-14.5 [facility] HospitalGyfpphfAKGSPDDYJC6362-01-87 10:36:00 Test Item Value Reference Range Interpretation Comments Hgb (test code = Hgb) 10.9 12.0-16.0 [facility] HospitalHspjhzyVPCONMCVPP3168-25-72 10:36:00 Test Item Value Reference Range Interpretation Comments MPV (test code = MPV) 7.3 7.4-10.4 [facility] HospitalOescwsfAJFJLAYICL6478-02-81 10:36:00 Test Item Value Reference Range Interpretation Comments MCHC (test code = MCHC) 32.0 32.0-36.0 [facility] HospitalZforzrsTTHVUAMWSS1304-11-03 10:36:00 Test Item Value Reference Range Interpretation Comments MCH (test code = MCH) 32.4 pg 27.0-31.0 [facility] HospitalSzrruebJLDLDEBSJO7513-94-27 10:36:00 Test Item Value Reference Range Interpretation Comments MCV (test code = MCV) 101.2 80.0-98.0 [facility] HospitalFnicjhbXQEWZGLMGS2748-19-22 10:36:00 Test Item Value Reference Range Interpretation Comments Hct (test code = Hct) 34.0 36.0-48.0 [facility] HospitalGudisyfJQTLCYTPZR0039-26-91 10:36:00 Test Item Value Reference Range Interpretation Comments RBC (test code = RBC) 3.36 4.20-5.40 [facility]2015-11-01 10:36:00 Test Item Value Reference Range Interpretation Comments Magnesium Lvl (test code = Magnesium 1.9 1.8-2.4 Lvl) [facility]2015-11-01 10:36:00 Test Item Value Reference Range Interpretation Comments eGFR (test code = eGFR) 106 [facility]2015-11-01 10:36:00 Test Item Value Reference Range Interpretation Comments Sodium Lvl (test code = Sodium Lvl) 143 135-145 [facility]2015-11-01 10:36:00 Test Item Value Reference Range Interpretation Comments Creatinine Lvl (test code = Creatinine 0.7 0.5-1.4 Lvl) [facility]2015-11-01 10:36:00 Test Item Value Reference Range Interpretation Comments Chloride Lvl (test code = Chloride Lvl) 114 95-109 [facility]2015-11-01 10:36:00 Test Item Value Reference Range Interpretation Comments Potassium Lvl (test code = Potassium 3.6 3.5-5.1 Lvl) [facility]2015-11-01 10:36:00 Test Item Value Reference Range Interpretation Comments Total Protein (test code = Total 5.9 6.4-8.4 Protein) [facility]2015-11-01 10:36:00 Test Item Value Reference Range Interpretation Comments Globulin (test code = Globulin) 2.8 2.0-4.0 [facility]2015-11-01 10:36:00 Test Item Value Reference Range Interpretation Comments Albumin Lvl (test code = Albumin Lvl) 3.1 3.5-5.0 [facility]2015-11-01 10:36:00 Test Item Value Reference Range Interpretation Comments A/G Ratio (test code = A/G Ratio) 1.1 0.7-1.6 [facility]2015-11-01 10:36:00 Test Item Value Reference Range Interpretation Comments Alk Phos (test code = Alk Phos) 36 39-136 [facility]2015-11-01 10:36:00 Test Item Value Reference Range Interpretation Comments ALT (test code = ALT) 19 See_Comment [Auto mated message] The system which ge nerated this result transmit mirna reference range : <=65. The reference range was not used to interpr et this result as zahra l/abnormal. [facility]2015-11-01 10:36:00 Test Item Value Reference Range Interpretation Comments Bili Total (test code = Bili Total) 0.4 0.2-1.3 [facility]2015-11-01 10:36:00 Test Item Value Reference Range Interpretation Comments AST (test code = AST) 17 See_Comment [Auto mated message] The system which ge nerated this result transmit mirna reference range : <=37. The reference range was not used to interpr et this result as zahra l/abnormal. [facility]2015-11-01 10:36:00 Test Item Value Reference Range Interpretation Comments AGAP (test code = AGAP) 10.6 10.0-20.0 [facility]2015-11-01 10:36:00 Test Item Value Reference Range Interpretation Comments CO2 (test code = CO2) 22 24-32 [facility]2015-11-01 10:36:00 Test Item Value Reference Range Interpretation Comments B/C Ratio (test code = B/C Ratio) 24 6-25 [facility]2015-11-01 10:36:00 Test Item Value Reference Range Interpretation Comments Calcium Lvl (test code = Calcium Lvl) 7.8 8.5-10.5 [facility]2015-11-01 10:36:00 Test Item Value Reference Range Interpretation Comments Glucose Lvl (test code = Glucose Lvl) 93 70-99 [facility]2015-11-01 10:36:00 Test Item Value Reference Range Interpretation Comments BUN (test code = BUN) 17 7-22 [facility] HospitalRrgcloiRWKHWEFLLA1436-65-51 10:36:00 Test Item Value Reference Range Interpretation Comments Basophils # (test code 0.0 See_Comment [Aut omated message] The = Basophils #) system which generated this result tra nsmitted reference range : <=0.2. The reference r chuck was not used to int erpret this result as normal/abnormal . [facility] HospitalBarznifZRWIVVLKAP9847-53-61 10:36:00 Test Item Value Reference Range Interpretation Comments Eosinophils # (test code 0.1 See_Comment [A utomated message] The = Eosinophils #) system whic h generated this result tra nsmitted reference range : <=0.5. The reference r chuck was not used to int erpret this result as normal/abnormal . [facility] HospitalEonwxfhNQHMKCIIDN6889-05-18 10:36:00 Test Item Value Reference Range Interpretation Comments Monocytes # (test code 0.9 See_Comment [Aut omated message] The = Monocytes #) system which generated this result tra nsmitted reference range : <=0.8. The reference r chuck was not used to int erpret this result as normal/abnormal . [facility] HospitalUogekhpPQESORAVZL9464-26-57 10:36:00 Test Item Value Reference Range Interpretation Comments Lymphocytes # (test code = Lymphocytes 1.8 1.0-5.5 #) [facility] HospitalLixbvyzERMOPNJYXJ6154-67-84 10:36:00 Test Item Value Reference Range Interpretation Comments Segs-Bands # (test code = Segs-Bands #) 7.4 1.5-8.1 [facility] HospitalBszqyvcYOGBZWXVHM5382-01-35 10:36:00 Test Item Value Reference Range Interpretation Comments Basophils (test code = 0.3 See_Comment [Aut omated message] The Basophils) system which ge nerated this result tra nsmitted reference range : <=1.0. The reference r chuck was not used to int erpret this result as normal/abnormal . [facility] HospitalBbqroinTXSYHYVEEJ3130-69-21 10:36:00 Test Item Value Reference Range Interpretation Comments Lymphocytes (test code = Lymphocytes) 17.4 20.0-40.0 [facility] HospitalJkyhuonZQUUTNKWUF4918-10-13 10:36:00 Test Item Value Reference Range Interpretation Comments Eosinophils (test code = 0.9 See_Comment [A utomated message] The Eosinophils) system which ge nerated this result tra nsmitted reference range : <=4.0. The reference r chuck was not used to int erpret this result as normal/abnormal . [facility] HospitalKtmsmmtRIDSXHVQUZ5368-27-15 10:36:00 Test Item Value Reference Range Interpretation Comments Monocytes (test code = Monocytes) 9.2 2.0-12.0 [facility] HospitalNcepaqgUVINHYUADQ5381-36-02 10:36:00 Test Item Value Reference Range Interpretation Comments Segs (test code = Segs) 72.2 45.0-75.0 [facility] HospitalUqgnmdvAPSLGBKVNB3249-53-67 10:36:00 Test Item Value Reference Range Interpretation Comments WBC (test code = WBC) 10.3 3.7-10.4 [facility] HospitalYphfpseYTLMARLAHB4762-48-84 10:36:00 Test Item Value Reference Range Interpretation Comments Platelet (test code = Platelet) 231 133-450 [facility] HospitalPqgivndKAGBWGLEHB4655-52-36 10:36:00 Test Item Value Reference Range Interpretation Comments RDW (test code = RDW) 13.5 11.5-14.5 [facility] HospitalFyulepcZUJFRKKQDZ5250-12-52 10:36:00 Test Item Value Reference Range Interpretation Comments Hgb (test code = Hgb) 10.9 12.0-16.0 [facility] HospitalKnktlllEYLQBOBACV7362-65-45 10:36:00 Test Item Value Reference Range Interpretation Comments MPV (test code = MPV) 7.3 7.4-10.4 [facility] HospitalCpxagyhNWNPGNMQHZ9902-52-14 10:36:00 Test Item Value Reference Range Interpretation Comments MCHC (test code = MCHC) 32.0 32.0-36.0 [facility]vzwgnmSDRXZIFNZA7632-51-11 10:36:00 Test Item Value Reference Range Interpretation Comments MCH (test code = MCH) 32.4 pg 27.0-31.0 [facility] HospitalYgdddbrRRMRTLNMDZ9540-74-13 10:36:00 Test Item Value Reference Range Interpretation Comments MCV (test code = MCV) 101.2 80.0-98.0 [facility] HospitalYuyhbafQSAPGZRFCN1608-42-10 10:36:00 Test Item Value Reference Range Interpretation Comments Hct (test code = Hct) 34.0 36.0-48.0 [facility] HospitalGhyjsudJBWIJPTKHG6502-39-42 10:36:00 Test Item Value Reference Range Interpretation Comments RBC (test code = RBC) 3.36 4.20-5.40 [facility]2015-11-01 10:36:00 Test Item Value Reference Range Interpretation Comments Magnesium Lvl (test code = Magnesium 1.9 1.8-2.4 Lvl) [facility]2015-11-01 10:36:00 Test Item Value Reference Range Interpretation Comments eGFR (test code = eGFR) 106 [facility]2015-11-01 10:36:00 Test Item Value Reference Range Interpretation Comments Sodium Lvl (test code = Sodium Lvl) 143 135-145 [facility]2015-11-01 10:36:00 Test Item Value Reference Range Interpretation Comments Creatinine Lvl (test code = Creatinine 0.7 0.5-1.4 Lvl) [facility]2015-11-01 10:36:00 Test Item Value Reference Range Interpretation Comments Chloride Lvl (test code = Chloride Lvl) 114 95-109 [facility]2015-11-01 10:36:00 Test Item Value Reference Range Interpretation Comments Potassium Lvl (test code = Potassium 3.6 3.5-5.1 Lvl) [facility]2015-11-01 10:36:00 Test Item Value Reference Range Interpretation Comments Total Protein (test code = Total 5.9 6.4-8.4 Protein) [facility]2015-11-01 10:36:00 Test Item Value Reference Range Interpretation Comments Globulin (test code = Globulin) 2.8 2.0-4.0 [facility]2015-11-01 10:36:00 Test Item Value Reference Range Interpretation Comments Albumin Lvl (test code = Albumin Lvl) 3.1 3.5-5.0 [facility]2015-11-01 10:36:00 Test Item Value Reference Range Interpretation Comments A/G Ratio (test code = A/G Ratio) 1.1 0.7-1.6 [facility]2015-11-01 10:36:00 Test Item Value Reference Range Interpretation Comments Alk Phos (test code = Alk Phos) 36 39-136 [facility]2015-11-01 10:36:00 Test Item Value Reference Range Interpretation Comments ALT (test code = ALT) 19 See_Comment [Auto mated message] The system which ge nerated this result transmit mirna reference range : <=65. The reference range was not used to interpr et this result as zahra l/abnormal. [facility]2015-11-01 10:36:00 Test Item Value Reference Range Interpretation Comments Bili Total (test code = Bili Total) 0.4 0.2-1.3 [facility]2015-11-01 10:36:00 Test Item Value Reference Range Interpretation Comments AST (test code = AST) 17 See_Comment [Auto mated message] The system which ge nerated this result transmit mirna reference range : <=37. The reference range was not used to interpr et this result as zahra l/abnormal. [facility]2015-11-01 10:36:00 Test Item Value Reference Range Interpretation Comments AGAP (test code = AGAP) 10.6 10.0-20.0 [facility]2015-11-01 10:36:00 Test Item Value Reference Range Interpretation Comments CO2 (test code = CO2) 22 24-32 [facility]2015-11-01 10:36:00 Test Item Value Reference Range Interpretation Comments B/C Ratio (test code = B/C Ratio) 24 6-25 [facility]2015-11-01 10:36:00 Test Item Value Reference Range Interpretation Comments Calcium Lvl (test code = Calcium Lvl) 7.8 8.5-10.5 [facility]2015-11-01 10:36:00 Test Item Value Reference Range Interpretation Comments Glucose Lvl (test code = Glucose Lvl) 93 70-99 [facility]2015-11-01 10:36:00 Test Item Value Reference Range Interpretation Comments BUN (test code = BUN) 17 7-22 [facility] HospitalHhsgdsqKQFVNSBBQS2940-82-05 10:36:00 Test Item Value Reference Range Interpretation Comments Basophils # (test code 0.0 See_Comment [Aut omated message] The = Basophils #) system which generated this result tra nsmitted reference range : <=0.2. The reference r chuck was not used to int erpret this result as normal/abnormal . [facility] HospitalDmenaniCITAJNPZYK0237-37-64 10:36:00 Test Item Value Reference Range Interpretation Comments Eosinophils # (test code 0.1 See_Comment [A utomated message] The = Eosinophils #) system whic h generated this result tra nsmitted reference range : <=0.5. The reference r chuck was not used to int erpret this result as normal/abnormal . [facility] HospitalZkxgysmUNMVXAOUOS4178-66-19 10:36:00 Test Item Value Reference Range Interpretation Comments Monocytes # (test code 0.9 See_Comment [Aut omated message] The = Monocytes #) system which generated this result tra nsmitted reference range : <=0.8. The reference r chuck was not used to int erpret this result as normal/abnormal . [facility] HospitalClfjbzzAPYYTSNBCZ3115-37-11 10:36:00 Test Item Value Reference Range Interpretation Comments Lymphocytes # (test code = Lymphocytes 1.8 1.0-5.5 #) [facility] HospitalLeodhyuDBYUZGKPAZ7399-31-93 10:36:00 Test Item Value Reference Range Interpretation Comments Segs-Bands # (test code = Segs-Bands #) 7.4 1.5-8.1 [facility] HospitalWmsyyssLBESRJCYMJ4701-47-85 10:36:00 Test Item Value Reference Range Interpretation Comments Basophils (test code = 0.3 See_Comment [Aut omated message] The Basophils) system which ge nerated this result tra nsmitted reference range : <=1.0. The reference r chuck was not used to int erpret this result as normal/abnormal . [facility] HospitalCiwamkrSIGHLGELQB3548-19-55 10:36:00 Test Item Value Reference Range Interpretation Comments Lymphocytes (test code = Lymphocytes) 17.4 20.0-40.0 [place] [address]-11-01 10:36:00 Test Item Value Reference Range Interpretation Comments Eosinophils (test code = 0.9 See_Comment [A utomated message] The Eosinophils) system which ge nerated this result tra nsmitted reference range : <=4.0. The reference r chuck was not used to int erpret this result as normal/abnormal . [facility] HospitalRcdycgvIFVAOHISOY1335-65-68 10:36:00 Test Item Value Reference Range Interpretation Comments Monocytes (test code = Monocytes) 9.2 2.0-12.0 [facility] HospitalTnaeursHFDWZHZHRQ7733-81-15 10:36:00 Test Item Value Reference Range Interpretation Comments Segs (test code = Segs) 72.2 45.0-75.0 [facility] HospitalBdwyqzaKXYNHRMBHG6595-27-19 10:36:00 Test Item Value Reference Range Interpretation Comments WBC (test code = WBC) 10.3 3.7-10.4 [facility] HospitalQlwuhgkTJBLDRNWXP7724-35-14 10:36:00 Test Item Value Reference Range Interpretation Comments Platelet (test code = Platelet) 231 133-450 [facility] HospitalGtakklpDNKRBZOSGX2677-84-44 10:36:00 Test Item Value Reference Range Interpretation Comments RDW (test code = RDW) 13.5 11.5-14.5 [facility] HospitalFvkkbkwDHDNAAKRDR2946-36-19 10:36:00 Test Item Value Reference Range Interpretation Comments Hgb (test code = Hgb) 10.9 12.0-16.0 [facility] HospitalGjmeakwPWCHNOSGGC5030-02-56 10:36:00 Test Item Value Reference Range Interpretation Comments MPV (test code = MPV) 7.3 7.4-10.4 [facility] HospitalVwxgljiKYLFDVCVJZ4827-57-67 10:36:00 Test Item Value Reference Range Interpretation Comments MCHC (test code = MCHC) 32.0 32.0-36.0 [facility] HospitalBhrjvraSJLZVCXFDV0512-59-34 10:36:00 Test Item Value Reference Range Interpretation Comments MCH (test code = MCH) 32.4 pg 27.0-31.0 [facility] HospitalQjuynhpVEQQZYQXKZ2606-22-40 10:36:00 Test Item Value Reference Range Interpretation Comments MCV (test code = MCV) 101.2 80.0-98.0 [facility] HospitalQwzxnemCMWKYWMWMV4863-76-49 10:36:00 Test Item Value Reference Range Interpretation Comments Hct (test code = Hct) 34.0 36.0-48.0 [facility] HospitalRuesotsMPMKIVRBCZ3399-79-05 10:36:00 Test Item Value Reference Range Interpretation Comments RBC (test code = RBC) 3.36 4.20-5.40 [facility]2015-11-01 10:36:00 Test Item Value Reference Range Interpretation Comments Magnesium Lvl (test code = Magnesium 1.9 1.8-2.4 Lvl) [facility]2015-11-01 10:36:00 Test Item Value Reference Range Interpretation Comments eGFR (test code = eGFR) 106 [facility]2015-11-01 10:36:00 Test Item Value Reference Range Interpretation Comments Sodium Lvl (test code = Sodium Lvl) 143 135-145 [facility]2015-11-01 10:36:00 Test Item Value Reference Range Interpretation Comments Creatinine Lvl (test code = Creatinine 0.7 0.5-1.4 Lvl) [facility]2015-11-01 10:36:00 Test Item Value Reference Range Interpretation Comments Chloride Lvl (test code = Chloride Lvl) 114 95-109 [facility]2015-11-01 10:36:00 Test Item Value Reference Range Interpretation Comments Potassium Lvl (test code = Potassium 3.6 3.5-5.1 Lvl) [facility]2015-11-01 10:36:00 Test Item Value Reference Range Interpretation Comments Total Protein (test code = Total 5.9 6.4-8.4 Protein) [facility]2015-11-01 10:36:00 Test Item Value Reference Range Interpretation Comments Globulin (test code = Globulin) 2.8 2.0-4.0 [facility]2015-11-01 10:36:00 Test Item Value Reference Range Interpretation Comments Albumin Lvl (test code = Albumin Lvl) 3.1 3.5-5.0 [facility]2015-11-01 10:36:00 Test Item Value Reference Range Interpretation Comments A/G Ratio (test code = A/G Ratio) 1.1 0.7-1.6 [facility]2015-11-01 10:36:00 Test Item Value Reference Range Interpretation Comments Alk Phos (test code = Alk Phos) 36 39-136 [facility]2015-11-01 10:36:00 Test Item Value Reference Range Interpretation Comments ALT (test code = ALT) 19 See_Comment [Auto mated message] The system which ge nerated this result transmit mirna reference range : <=65. The reference range was not used to interpr et this result as zahra l/abnormal. [facility]2015-11-01 10:36:00 Test Item Value Reference Range Interpretation Comments Bili Total (test code = Bili Total) 0.4 0.2-1.3 [facility]2015-11-01 10:36:00 Test Item Value Reference Range Interpretation Comments AST (test code = AST) 17 See_Comment [Auto mated message] The system which ge nerated this result transmit mirna reference range : <=37. The reference range was not used to interpr et this result as zahra l/abnormal. [facility]2015-11-01 10:36:00 Test Item Value Reference Range Interpretation Comments AGAP (test code = AGAP) 10.6 10.0-20.0 [facility]2015-11-01 10:36:00 Test Item Value Reference Range Interpretation Comments CO2 (test code = CO2) 22 24-32 [facility]2015-11-01 10:36:00 Test Item Value Reference Range Interpretation Comments B/C Ratio (test code = B/C Ratio) 24 6-25 [facility]2015-11-01 10:36:00 Test Item Value Reference Range Interpretation Comments Calcium Lvl (test code = Calcium Lvl) 7.8 8.5-10.5 [facility]2015-11-01 10:36:00 Test Item Value Reference Range Interpretation Comments Glucose Lvl (test code = Glucose Lvl) 93 70-99 [facility]2015-11-01 10:36:00 Test Item Value Reference Range Interpretation Comments BUN (test code = BUN) 17 7-22 [facility] HospitalJmqjtohDLMUMVPSKP2233-87-29 10:36:00 Test Item Value Reference Range Interpretation Comments Basophils # (test code 0.0 See_Comment [Aut omated message] The = Basophils #) system which generated this result tra nsmitted reference range : <=0.2. The reference r chuck was not used to int erpret this result as normal/abnormal . [facility] HospitalTnlyokxVFNHCLDZBM6832-21-66 10:36:00 Test Item Value Reference Range Interpretation Comments Eosinophils # (test code 0.1 See_Comment [A utomated message] The = Eosinophils #) system [facility] generated this result tra nsmitted reference range : <=0.5. The reference r chuck was not used to int erpret this result as normal/abnormal . [facility] HospitalYwklbswIKDTTWTGZG0076-17-85 10:36:00 Test Item Value Reference Range Interpretation Comments Monocytes # (test code 0.9 See_Comment [Aut omated message] The = Monocytes #) system which generated this result tra nsmitted reference range : <=0.8. The reference r chuck was not used to int erpret this result as normal/abnormal . [facility] HospitalSnwigeoITONHYIQOU0943-38-17 10:36:00 Test Item Value Reference Range Interpretation Comments Lymphocytes # (test code = Lymphocytes 1.8 1.0-5.5 #) [facility] HospitalDwirzifGSKZOJWFYA2274-65-93 10:36:00 Test Item Value Reference Range Interpretation Comments Segs-Bands # (test code = Segs-Bands #) 7.4 1.5-8.1 [facility] HospitalFgtjdshOTAJVSGMWD8039-93-92 10:36:00 Test Item Value Reference Range Interpretation Comments Basophils (test code = 0.3 See_Comment [Aut omated message] The Basophils) system which ge nerated this result tra nsmitted reference range : <=1.0. The reference r chuck was not used to int erpret this result as normal/abnormal . [facility] HospitalGlpatadKLXYWFSQMB4345-89-31 10:36:00 Test Item Value Reference Range Interpretation Comments Lymphocytes (test code = Lymphocytes) 17.4 20.0-40.0 [facility] HospitalNagglxoJULPVSMXFB1973-97-65 10:36:00 Test Item Value Reference Range Interpretation Comments Eosinophils (test code = 0.9 See_Comment [A utomated message] The Eosinophils) system which ge nerated this result tra nsmitted reference range : <=4.0. The reference r chuck was not used to int erpret this result as normal/abnormal . [facility] HospitalKrumumxONOXFEBLUD2601-17-40 10:36:00 Test Item Value Reference Range Interpretation Comments Monocytes (test code = Monocytes) 9.2 2.0-12.0 [facility] HospitalRapsnsfMGUMKWJCOC8671-06-80 10:36:00 Test Item Value Reference Range Interpretation Comments Segs (test code = Segs) 72.2 45.0-75.0 [facility] HospitalAfkyasjNFDXXPICNC1536-70-78 10:36:00 Test Item Value Reference Range Interpretation Comments WBC (test code = WBC) 10.3 3.7-10.4 [facility] HospitalWuxayfhXYTERKSYVV2277-83-61 10:36:00 Test Item Value Reference Range Interpretation Comments Platelet (test code = Platelet) 231 133-450 [facility] HospitalAbujkodBWIKNQPCKF2094-15-46 10:36:00 Test Item Value Reference Range Interpretation Comments RDW (test code = RDW) 13.5 11.5-14.5 [facility] HospitalLurkmygSSRVQJXMBG4895-75-82 10:36:00 Test Item Value Reference Range Interpretation Comments Hgb (test code = Hgb) 10.9 12.0-16.0 [facility] HospitalVsgncwkLVMGHYZTXL3652-44-39 10:36:00 Test Item Value Reference Range Interpretation Comments MPV (test code = MPV) 7.3 7.4-10.4 [facility] HospitalUqfrvraDCGNFITYMR0523-55-60 10:36:00 Test Item Value Reference Range Interpretation Comments MCHC (test code = MCHC) 32.0 32.0-36.0 [facility] HospitalRuyubqqVBOGGOIQVD3922-35-69 10:36:00 Test Item Value Reference Range Interpretation Comments MCH (test code = MCH) 32.4 pg 27.0-31.0 [facility] HospitalSlyrsoqVTECVCYGAM4028-17-74 10:36:00 Test Item Value Reference Range Interpretation Comments MCV (test code = MCV) 101.2 80.0-98.0 [facility]AVPDXEOI5415-[facility]-94 10:36:00 Test Item Value Reference Range Interpretation Comments Hct (test code = Hct) 34.0 36.0-48.0 [facility] HospitalIvqcbbrXIDCTXXFBH7971-60-91 10:36:00 Test Item Value Reference Range Interpretation Comments RBC (test code = RBC) 3.36 4.20-5.40 [facility]2015-11-01 10:36:00 Test Item Value Reference Range Interpretation Comments Magnesium Lvl (test code = Magnesium 1.9 1.8-2.4 Lvl) [facility]2015-11-01 10:36:00 Test Item Value Reference Range Interpretation Comments eGFR (test code = eGFR) 106 [facility]2015-11-01 10:36:00 Test Item Value Reference Range Interpretation Comments Sodium Lvl (test code = Sodium Lvl) 143 135-145 [facility]2015-11-01 10:36:00 Test Item Value Reference Range Interpretation Comments Creatinine Lvl (test code = Creatinine 0.7 0.5-1.4 Lvl) [facility]2015-11-01 10:36:00 Test Item Value Reference Range Interpretation Comments Chloride Lvl (test code = Chloride Lvl) 114 95-109 [facility]2015-11-01 10:36:00 Test Item Value Reference Range Interpretation Comments Potassium Lvl (test code = Potassium 3.6 3.5-5.1 Lvl) [facility]2015-11-01 10:36:00 Test Item Value Reference Range Interpretation Comments Total Protein (test code = Total 5.9 6.4-8.4 Protein) [facility]2015-11-01 10:36:00 Test Item Value Reference Range Interpretation Comments Globulin (test code = Globulin) 2.8 2.0-4.0 [facility]2015-11-01 10:36:00 Test Item Value Reference Range Interpretation Comments Albumin Lvl (test code = Albumin Lvl) 3.1 3.5-5.0 [facility]2015-11-01 10:36:00 Test Item Value Reference Range Interpretation Comments A/G Ratio (test code = A/G Ratio) 1.1 0.7-1.6 [facility]2015-11-01 10:36:00 Test Item Value Reference Range Interpretation Comments Alk Phos (test code = Alk Phos) 36 39-136 [facility]2015-11-01 10:36:00 Test Item Value Reference Range Interpretation Comments ALT (test code = ALT) 19 <=65 [facility]2015-11-01 10:36:00 Test Item Value Reference Range Interpretation Comments Bili Total (test code = Bili Total) 0.4 0.2-1.3 [facility]2015-11-01 10:36:00 Test Item Value Reference Range Interpretation Comments AST (test code = AST) 17 <=37 [facility]2015-11-01 10:36:00 Test Item Value Reference Range Interpretation Comments AGAP (test code = AGAP) 10.6 10.0-20.0 [facility]2015-11-01 10:36:00 Test Item Value Reference Range Interpretation Comments CO2 (test code = CO2) 22 24-32 [facility]2015-11-01 10:36:00 Test Item Value Reference Range Interpretation Comments B/C Ratio (test code = B/C Ratio) 24 6-25 [facility]2015-11-01 10:36:00 Test Item Value Reference Range Interpretation Comments Calcium Lvl (test code = Calcium Lvl) 7.8 8.5-10.5 [facility]2015-11-01 10:36:00 Test Item Value Reference Range Interpretation Comments Glucose Lvl (test code = Glucose Lvl) 93 70-99 [facility]2015-11-01 10:36:00 Test Item Value Reference Range Interpretation Comments BUN (test code = BUN) 17 7-22 [facility] HospitalPshoiwgTZXUCDHUHX7866-28-19 10:36:00 Test Item Value Reference Range Interpretation Comments Basophils # (test code = Basophils #) 0.0 <=0.2 [facility] HospitalDiurqliTHAVQODADD1663-01-80 10:36:00 Test Item Value Reference Range Interpretation Comments Eosinophils # (test code = Eosinophils 0.1 <=0.5 #) [facility] HospitalAyjluuhQTFWEGNNYZ9510-76-26 10:36:00 Test Item Value Reference Range Interpretation Comments Monocytes # (test code = Monocytes #) 0.9 <=0.8 [facility] HospitalNqnzwdtAGOLCTZYEX9453-51-77 10:36:00 Test Item Value Reference Range Interpretation Comments Lymphocytes # (test code = Lymphocytes 1.8 1.0-5.5 #) [facility] HospitalVfoujskLKSZDKNMCY9102-84-10 10:36:00 Test Item Value Reference Range Interpretation Comments Segs-Bands # (test code = Segs-Bands #) 7.4 1.5-8.1 [facility] HospitalDnklzovUYXXYNNVWF0169-96-15 10:36:00 Test Item Value Reference Range Interpretation Comments Basophils (test code = Basophils) 0.3 <=1.0 [facility] HospitalCkeacrkJAVSHPRIPI9765-10-92 10:36:00 Test Item Value Reference Range Interpretation Comments Lymphocytes (test code = Lymphocytes) 17.4 20.0-40.0 [facility] HospitalYafjjarHIMVMJSAZM7197-63-88 10:36:00 Test Item Value Reference Range Interpretation Comments Eosinophils (test code = Eosinophils) 0.9 <=4.0 [facility] HospitalOrecxqpHMCDKQLFVT6675-73-02 10:36:00 Test Item Value Reference Range Interpretation Comments Monocytes (test code = Monocytes) 9.2 2.0-12.0 [facility] HospitalYhsaebdPYIDWUCGQY9026-36-07 10:36:00 Test Item Value Reference Range Interpretation Comments Segs (test code = Segs) 72.2 45.0-75.0 [facility] HospitalReqzyqcLPPZHQADAV8752-35-88 10:36:00 Test Item Value Reference Range Interpretation Comments WBC (test code = WBC) 10.3 3.7-10.4 [facility] HospitalOhtkjtwUJBBDIDDRV3899-37-36 10:36:00 Test Item Value Reference Range Interpretation Comments Platelet (test code = Platelet) 231 133-450 [facility] HospitalSqufbkxXOYSBLGBFG6748-98-56 10:36:00 Test Item Value Reference Range Interpretation Comments RDW (test code = RDW) 13.5 11.5-14.5 [facility] HospitalWgvgodjJSJAPNLIMX9903-22-47 10:36:00 Test Item Value Reference Range Interpretation Comments Hgb (test code = Hgb) 10.9 12.0-16.0 [facility] HospitalPswhzitSFUWVLPTZF6586-21-51 10:36:00 Test Item Value Reference Range Interpretation Comments MPV (test code = MPV) 7.3 7.4-10.4 [facility] HospitalWvjxnpxLDMWDTMUFS9827-88-61 10:36:00 Test Item Value Reference Range Interpretation Comments MCHC (test code = MCHC) 32.0 32.0-36.0 [facility] HospitalGevhcqjDFQZQVKFYX7445-14-39 10:36:00 Test Item Value Reference Range Interpretation Comments MCH (test code = MCH) 32.4 pg 27.0-31.0 [facility] HospitalShxhywfFOERGDPAED7131-53-48 10:36:00 Test Item Value Reference Range Interpretation Comments MCV (test code = MCV) 101.2 80.0-98.0 [facility] HospitalRycmrvcIUJFXJYYUP6031-47-81 10:36:00 Test Item Value Reference Range Interpretation Comments Hct (test code = Hct) 34.0 36.0-48.0 [facility]syqHVHLTGBIXH6644-89-07 10:36:00 Test Item Value Reference Range Interpretation Comments RBC (test code = RBC) 3.36 4.20-5.40 [facility]2015-10-31 23:18:00 Test Item Value Reference Range Interpretation Comments Lactic Acid Lvl (test code = Lactic 0.4 0.5-2.2 Acid Lvl) [facility]2015-10-31 23:18:00 Test Item Value Reference Range Interpretation Comments Lactic Acid Lvl (test code = Lactic 0.4 0.5-2.2 Acid Lvl) [facility]2015-10-31 23:18:00 Test Item Value Reference Range Interpretation Comments Lactic Acid Lvl (test code = Lactic 0.4 0.5-2.2 Acid Lvl) [facility]2015-10-31 23:18:00 Test Item Value Reference Range Interpretation Comments Lactic Acid Lvl (test code = Lactic 0.4 0.5-2.2 Acid Lvl) [facility]2015-10-31 23:18:00 Test Item Value Reference Range Interpretation Comments Lactic Acid Lvl (test code = Lactic 0.4 0.5-2.2 Acid Lvl) [facility]2015-10-31 23:18:00 Test Item Value Reference Range Interpretation Comments Lactic Acid Lvl (test code = Lactic 0.4 0.5-2.2 Acid Lvl) [facility]2015-10-31 23:18:00 Test Item Value Reference Range Interpretation Comments Lactic Acid Lvl (test code = Lactic 0.4 0.5-2.2 Acid Lvl) [facility]2015-10-31 22:34:00 Test Item Value Reference Range Interpretation Comments U Phencyc Scr (test Negative *NA*(04/27/15 code = U Phencyc Scr) 5:34 PM) [facility]2015-10-31 22:34:00 Test Item Value Reference Range Interpretation Comments U Opiate Scr (test Positive *ABN*(04/27/15 code = U Opiate Scr) 5:34 PM) [facility]2015-10-31 22:34:00 Test Item Value Reference Range Interpretation Comments UDS Note (test code = See Note (04/27/15 5:34 UDS Note) PM) [facility] [id number] 22:34:00 Test Item Value Reference Range Interpretation Comments U Cocaine Scr (test Negative *NA*(04/27/15 code = U Cocaine Scr) 5:34 PM) [facility] [id number] 22:34:00 Test Item Value Reference Range Interpretation Comments U Benzodia Scr (test Positive code = U Benzodia Scr) *ABN*(04/27/15 5:34 PM) [facility] [id number] 22:34:00 Test Item Value Reference Range Interpretation Comments U Amph Scr (test code Negative *NA*(04/27/15 = U Amph Scr) 5:34 PM) [facility] [id number] 22:34:00 Test Item Value Reference Range Interpretation Comments U Cannab Scr (test Positive *ABN*(04/27/15 code = U Cannab Scr) 5:34 PM) [facility] [id number] 22:34:00 Test Item Value Reference Range Interpretation Comments U Solange Scr (test code Negative *NA*(04/27/15 = U Solange Scr) 5:34 PM) [facility] [id number] 22:34:00 Test Item Value Reference Range Interpretation Comments UA Bacteria (test code = UA Occasional /HPF Bacteria) [facility] [id number] 22:34:00 Test Item Value Reference Range Interpretation Comments UA RBC (test code = 0-2 /HPF See_Comment [Automa mirna message] The UA RBC) system which ge nerated this result tra nsmitted reference range : <=2. The reference range was not used to interpr et this result as zahra l/abnormal. [facility] [id number] 22:34:00 Test Item Value Reference Range Interpretation Comments UA Protein (test code Negative (04/27/15 5:34 = UA Protein) PM) [facility] [id number] 22:34:00 Test Item Value Reference Range Interpretation Comments UA Urobilinogen (test code = UA 0.2 0.1-1.0 Urobilinogen) [facility] [id number] 22:34:00 Test Item Value Reference Range Interpretation Comments UA Blood (test code = Trace *ABN*(04/27/15 UA Blood) 5:34 PM) [facility] AND [id number] 22:34:00 Test Item Value Reference Range Interpretation Comments UA Nitrite (test code Negative (04/27/15 5:34 = UA Nitrite) PM) [facility] AND [id number] 22:34:00 Test Item Value Reference Range Interpretation Comments UA Bili (test code = Negative *NA*(04/27/15 UA Bili) 5:34 PM) [facility] AND [id number] 22:34:00 Test Item Value Reference Range Interpretation Comments UA Ketones (test code = UA Ketones) 15 mg/dL [facility] AND [id number] 22:34:00 Test Item Value Reference Range Interpretation Comments UA Glucose (test code Negative (04/27/15 5:34 = UA Glucose) PM) [facility] AND [id number] 22:34:00 Test Item Value Reference Range Interpretation Comments UA Sq Epi (test code = UA Sq Occasional /LPF Epi) [facility] AND [id number] 22:34:00 Test Item Value Reference Range Interpretation Comments UA Leuk Est (test Negative (04/27/15 5:34 code = UA Leuk Est) PM) [facility] AND [id number] 22:34:00 Test Item Value Reference Range Interpretation Comments UA WBC (test code = UA WBC) 0-2 /HPF [facility] AND [id number] 22:34:00 Test Item Value Reference Range Interpretation Comments UA pH (test code = UA pH) 7.0 1 5.0-8.0 [facility] AND [id number] 22:34:00 Test Item Value Reference Range Interpretation Comments UA Spec Grav (test code = UA Spec 1.010 1 Grav) [facility] AND [id number] 22:34:00 Test Item Value Reference Range Interpretation Comments UA Turbidity (test code = Clear (04/27/15 5:34 UA Turbidity) PM) [facility] AND [id number] 22:34:00 Test Item Value Reference Range Interpretation Comments UA Color (test code = Yellow *NA*(04/27/15 UA Color) 5:34 PM) [facility] [id number] 22:34:00 Test Item Value Reference Range Interpretation Comments U Phencyc Scr (test Negative *NA*(04/27/15 code = U Phencyc Scr) 5:34 PM) [facility] [id number] 22:34:00 Test Item Value Reference Range Interpretation Comments U Opiate Scr (test Positive *ABN*(04/27/15 code = U Opiate Scr) 5:34 PM) [facility] [id number] 22:34:00 Test Item Value Reference Range Interpretation Comments UDS Note (test code = See Note (04/27/15 5:34 UDS Note) PM) [facility] [id number] 22:34:00 Test Item Value Reference Range Interpretation Comments U Cocaine Scr (test Negative *NA*(04/27/15 code = U Cocaine Scr) 5:34 PM) [facility] [id number] 22:34:00 Test Item Value Reference Range Interpretation Comments U Benzodia Scr (test Positive code = U Benzodia Scr) *ABN*(04/27/15 5:34 PM) [facility] [id number] 22:34:00 Test Item Value Reference Range Interpretation Comments U Amph Scr (test code Negative *NA*(04/27/15 = U Amph Scr) 5:34 PM) [facility] [id number] 22:34:00 Test Item Value Reference Range Interpretation Comments U Cannab Scr (test Positive *ABN*(04/27/15 code = U Cannab Scr) 5:34 PM) [facility] [id number] 22:34:00 Test Item Value Reference Range Interpretation Comments U Solange Scr (test code Negative *NA*(04/27/15 = U Solange Scr) 5:34 PM) [facility] [id number] 22:34:00 Test Item Value Reference Range Interpretation Comments UA Bacteria (test code = UA Occasional /HPF Bacteria) [facility] [id number] 22:34:00 Test Item Value Reference Range Interpretation Comments UA RBC (test code = 0-2 /HPF See_Comment [Automa mirna message] The UA RBC) system which ge nerated this result tra nsmitted reference range : <=2. The reference range was not used to interpr et this result as zahra l/abnormal. [facility] AND [id number] 22:34:00 Test Item Value Reference Range Interpretation Comments UA Protein (test code Negative (04/27/15 5:34 = UA Protein) PM) [facility] AND [id number] 22:34:00 Test Item Value Reference Range Interpretation Comments UA Urobilinogen (test code = UA 0.2 0.1-1.0 Urobilinogen) [facility] AND [id number] 22:34:00 Test Item Value Reference Range Interpretation Comments UA Blood (test code = Trace *ABN*(04/27/15 UA Blood) 5:34 PM) [facility] AND [id number] 22:34:00 Test Item Value Reference Range Interpretation Comments UA Nitrite (test code Negative (04/27/15 5:34 = UA Nitrite) PM) [facility] AND [id number] 22:34:00 Test Item Value Reference Range Interpretation Comments UA Bili (test code = Negative *NA*(04/27/15 UA Bili) 5:34 PM) [facility] AND [id number] 22:34:00 Test Item Value Reference Range Interpretation Comments UA Ketones (test code = UA Ketones) 15 mg/dL [facility] AND [id number] 22:34:00 Test Item Value Reference Range Interpretation Comments UA Glucose (test code Negative (04/27/15 5:34 = UA Glucose) PM) [facility] AND [id number] 22:34:00 Test Item Value Reference Range Interpretation Comments UA Sq Epi (test code = UA Sq Occasional /LPF Epi) [facility] AND [id number] 22:34:00 Test Item Value Reference Range Interpretation Comments UA Leuk Est (test Negative (04/27/15 5:34 code = UA Leuk Est) PM) [facility] AND [id number] 22:34:00 Test Item Value Reference Range Interpretation Comments UA WBC (test code = UA WBC) 0-2 /HPF [facility] AND [id number] 22:34:00 Test Item Value Reference Range Interpretation Comments UA pH (test code = UA pH) 7.0 1 5.0-8.0 [facility] [id number] 22:34:00 Test Item Value Reference Range Interpretation Comments UA Spec Grav (test code = UA Spec 1.010 1 Grav) [facility] [id number] 22:34:00 Test Item Value Reference Range Interpretation Comments UA Turbidity (test code = Clear (04/27/15 5:34 UA Turbidity) PM) [facility] [id number] 22:34:00 Test Item Value Reference Range Interpretation Comments UA Color (test code = Yellow *NA*(04/27/15 UA Color) 5:34 PM) [facility] [id number] 22:34:00 Test Item Value Reference Range Interpretation Comments U Phencyc Scr (test Negative *NA*(04/27/15 code = U Phencyc Scr) 5:34 PM) [facility] [id number] 22:34:00 Test Item Value Reference Range Interpretation Comments U Opiate Scr (test Positive *ABN*(04/27/15 code = U Opiate Scr) 5:34 PM) [facility] [id number] 22:34:00 Test Item Value Reference Range Interpretation Comments UDS Note (test code = See Note (04/27/15 5:34 UDS Note) PM) [facility] [id number] 22:34:00 Test Item Value Reference Range Interpretation Comments U Cocaine Scr (test Negative *NA*(04/27/15 code = U Cocaine Scr) 5:34 PM) [facility] [id number] 22:34:00 Test Item Value Reference Range Interpretation Comments U Benzodia Scr (test Positive code = U Benzodia Scr) *ABN*(04/27/15 5:34 PM) [facility] [id number] 22:34:00 Test Item Value Reference Range Interpretation Comments U Amph Scr (test code Negative *NA*(04/27/15 = U Amph Scr) 5:34 PM) [facility] [id number] 22:34:00 Test Item Value Reference Range Interpretation Comments U Cannab Scr (test Positive *ABN*(04/27/15 code = U Cannab Scr) 5:34 PM) [facility] [id number] 22:34:00 Test Item Value Reference Range Interpretation Comments U Solange Scr (test code Negative *NA*(04/27/15 = U Solange Scr) 5:34 PM) [facility] [id number] 22:34:00 Test Item Value Reference Range Interpretation Comments UA Bacteria (test code = UA Occasional /HPF Bacteria) [facility] [id number] 22:34:00 Test Item Value Reference Range Interpretation Comments UA RBC (test code = 0-2 /HPF See_Comment [Automa mirna message] The UA RBC) system which ge nerated this result tra nsmitted reference range : <=2. The reference range was not used to interpr et this result as zahra l/abnormal. [facility] [id number] 22:34:00 Test Item Value Reference Range Interpretation Comments UA Protein (test code Negative (04/27/15 5:34 = UA Protein) PM) [facility] [id number] 22:34:00 Test Item Value Reference Range Interpretation Comments UA Urobilinogen (test code = UA 0.2 0.1-1.0 Urobilinogen) [facility] [id number] 22:34:00 Test Item Value Reference Range Interpretation Comments UA Blood (test code = Trace *ABN*(04/27/15 UA Blood) 5:34 PM) [facility] [id number] 22:34:00 Test Item Value Reference Range Interpretation Comments UA Nitrite (test code Negative (04/27/15 5:34 = UA Nitrite) PM) [facility] [id number] 22:34:00 Test Item Value Reference Range Interpretation Comments UA Bili (test code = Negative *NA*(04/27/15 UA Bili) 5:34 PM) [facility] [id number] 22:34:00 Test Item Value Reference Range Interpretation Comments UA Ketones (test code = UA Ketones) 15 mg/dL [facility] [id number] 22:34:00 Test Item Value Reference Range Interpretation Comments UA Glucose (test code Negative (04/27/15 5:34 = UA Glucose) PM) [facility] [id number] 22:34:00 Test Item Value Reference Range Interpretation Comments UA Sq Epi (test code = UA Sq Occasional /LPF Epi) [facility] [id number] 22:34:00 Test Item Value Reference Range Interpretation Comments UA Leuk Est (test Negative (04/27/15 5:34 code = UA Leuk Est) PM) [facility] [id number] 22:34:00 Test Item Value Reference Range Interpretation Comments UA WBC (test code = UA WBC) 0-2 /HPF [facility] [id number] 22:34:00 Test Item Value Reference Range Interpretation Comments UA pH (test code = UA pH) 7.0 1 5.0-8.0 [facility] [id number] 22:34:00 Test Item Value Reference Range Interpretation Comments UA Spec Grav (test code = UA Spec 1.010 1 Grav) [facility] [id number] 22:34:00 Test Item Value Reference Range Interpretation Comments UA Turbidity (test code = Clear (04/27/15 5:34 UA Turbidity) PM) [facility] [id number] 22:34:00 Test Item Value Reference Range Interpretation Comments UA Color (test code = Yellow *NA*(04/27/15 UA Color) 5:34 PM) [facility] [id number] 22:34:00 Test Item Value Reference Range Interpretation Comments U Phencyc Scr (test Negative *NA*(04/27/15 code = U Phencyc Scr) 5:34 PM) [facility] [id number] 22:34:00 Test Item Value Reference Range Interpretation Comments U Opiate Scr (test Positive *ABN*(04/27/15 code = U Opiate Scr) 5:34 PM) [facility] [id number] 22:34:00 Test Item Value Reference Range Interpretation Comments UDS Note (test code = See Note (04/27/15 5:34 UDS Note) PM) [facility] [id number] 22:34:00 Test Item Value Reference Range Interpretation Comments U Cocaine Scr (test Negative *NA*(04/27/15 code = U Cocaine Scr) 5:34 PM) [facility] [id number] 22:34:00 Test Item Value Reference Range Interpretation Comments U Benzodia Scr (test Positive code = U Benzodia Scr) *ABN*(04/27/15 5:34 PM) [facility] [id number] 22:34:00 Test Item Value Reference Range Interpretation Comments U Amph Scr (test code Negative *NA*(04/27/15 = U Amph Scr) 5:34 PM) [facility] [id number] 22:34:00 Test Item Value Reference Range Interpretation Comments U Cannab Scr (test Positive *ABN*(04/27/15 code = U Cannab Scr) 5:34 PM) [facility] [id number] 22:34:00 Test Item Value Reference Range Interpretation Comments U Solange Scr (test code Negative *NA*(04/27/15 = U Solange Scr) 5:34 PM) [facility] [id number] 22:34:00 Test Item Value Reference Range Interpretation Comments UA Bacteria (test code = UA Occasional /HPF Bacteria) [facility] [id number] 22:34:00 Test Item Value Reference Range Interpretation Comments UA RBC (test code = 0-2 /HPF See_Comment [Automa mirna message] The UA RBC) system which ge nerated this result tra nsmitted reference range : <=2. The reference range was not used to interpr et this result as zahra l/abnormal. [facility] [id number] 22:34:00 Test Item Value Reference Range Interpretation Comments UA Protein (test code Negative (04/27/15 5:34 = UA Protein) PM) [facility] [id number] 22:34:00 Test Item Value Reference Range Interpretation Comments UA Urobilinogen (test code = UA 0.2 0.1-1.0 Urobilinogen) [facility] [id number] 22:34:00 Test Item Value Reference Range Interpretation Comments UA Blood (test code = Trace *ABN*(04/27/15 UA Blood) 5:34 PM) [facility] [id number] 22:34:00 Test Item Value Reference Range Interpretation Comments UA Nitrite (test code Negative (04/27/15 5:34 = UA Nitrite) PM) [facility] [id number] 22:34:00 Test Item Value Reference Range Interpretation Comments UA Bili (test code = Negative *NA*(04/27/15 UA Bili) 5:34 PM) [facility] [id number] 22:34:00 Test Item Value Reference Range Interpretation Comments UA Ketones (test code = UA Ketones) 15 mg/dL [facility] [id number] 22:34:00 Test Item Value Reference Range Interpretation Comments UA Glucose (test code Negative (04/27/15 5:34 = UA Glucose) PM) [facility] [id number] 22:34:00 Test Item Value Reference Range Interpretation Comments UA Sq Epi (test code = UA Sq Occasional /LPF Epi) [facility] [id number] 22:34:00 Test Item Value Reference Range Interpretation Comments UA Leuk Est (test Negative (04/27/15 5:34 code = UA Leuk Est) PM) [facility] [id number] 22:34:00 Test Item Value Reference Range Interpretation Comments UA WBC (test code = UA WBC) 0-2 /HPF [facility] [id number] 22:34:00 Test Item Value Reference Range Interpretation Comments UA pH (test code = UA pH) 7.0 1 5.0-8.0 [facility] [id number] 22:34:00 Test Item Value Reference Range Interpretation Comments UA Spec Grav (test code = UA Spec 1.010 1 Grav) [facility] [id number] 22:34:00 Test Item Value Reference Range Interpretation Comments UA Turbidity (test code = Clear (04/27/15 5:34 UA Turbidity) PM) [facility] [id number] 22:34:00 Test Item Value Reference Range Interpretation Comments UA Color (test code = Yellow *NA*(04/27/15 UA Color) 5:34 PM) [facility] [id number] 22:34:00 Test Item Value Reference Range Interpretation Comments U Phencyc Scr (test Negative *NA*(04/27/15 code = U Phencyc Scr) 5:34 PM) [facility] [id number] 22:34:00 Test Item Value Reference Range Interpretation Comments U Opiate Scr (test Positive *ABN*(04/27/15 code = U Opiate Scr) 5:34 PM) [facility] [id number] 22:34:00 Test Item Value Reference Range Interpretation Comments UDS Note (test code = See Note (04/27/15 5:34 UDS Note) PM) [facility] [id number] 22:34:00 Test Item Value Reference Range Interpretation Comments U Cocaine Scr (test Negative *NA*(04/27/15 code = U Cocaine Scr) 5:34 PM) [facility] [id number] 22:34:00 Test Item Value Reference Range Interpretation Comments U Benzodia Scr (test Positive code = U Benzodia Scr) *ABN*(04/27/15 5:34 PM) [facility] [id number] 22:34:00 Test Item Value Reference Range Interpretation Comments U Amph Scr (test code Negative *NA*(04/27/15 = U Amph Scr) 5:34 PM) [facility] [id number] 22:34:00 Test Item Value Reference Range Interpretation Comments U Cannab Scr (test Positive *ABN*(04/27/15 code = U Cannab Scr) 5:34 PM) [facility] [id number] 22:34:00 Test Item Value Reference Range Interpretation Comments U Solange Scr (test code Negative *NA*(04/27/15 = U Solange Scr) 5:34 PM) [facility] [id number] 22:34:00 Test Item Value Reference Range Interpretation Comments UA Bacteria (test code = UA Occasional /HPF Bacteria) [facility] [id number] 22:34:00 Test Item Value Reference Range Interpretation Comments UA RBC (test code = 0-2 /HPF See_Comment [Automa mirna message] The UA RBC) system which ge nerated this result tra nsmitted reference range : <=2. The reference range was not used to interpr et this result as zahra l/abnormal. [facility] [id number] 22:34:00 Test Item Value Reference Range Interpretation Comments UA Protein (test code Negative (04/27/15 5:34 = UA Protein) PM) [facility] AND [id number] 22:34:00 Test Item Value Reference Range Interpretation Comments UA Urobilinogen (test code = UA 0.2 0.1-1.0 Urobilinogen) [facility] AND [id number] 22:34:00 Test Item Value Reference Range Interpretation Comments UA Blood (test code = Trace *ABN*(04/27/15 UA Blood) 5:34 PM) [facility] AND [id number] 22:34:00 Test Item Value Reference Range Interpretation Comments UA Nitrite (test code Negative (04/27/15 5:34 = UA Nitrite) PM) [facility] AND [id number] 22:34:00 Test Item Value Reference Range Interpretation Comments UA Bili (test code = Negative *NA*(04/27/15 UA Bili) 5:34 PM) [facility] AND [id number] 22:34:00 Test Item Value Reference Range Interpretation Comments UA Ketones (test code = UA Ketones) 15 mg/dL [facility] AND [id number] 22:34:00 Test Item Value Reference Range Interpretation Comments UA Glucose (test code Negative (04/27/15 5:34 = UA Glucose) PM) [facility] AND [id number] 22:34:00 Test Item Value Reference Range Interpretation Comments UA Sq Epi (test code = UA Sq Occasional /LPF Epi) [facility] AND [id number] 22:34:00 Test Item Value Reference Range Interpretation Comments UA Leuk Est (test Negative (04/27/15 5:34 code = UA Leuk Est) PM) [facility] AND [id number] 22:34:00 Test Item Value Reference Range Interpretation Comments UA WBC (test code = UA WBC) 0-2 /HPF [facility] AND [id number] 22:34:00 Test Item Value Reference Range Interpretation Comments UA pH (test code = UA pH) 7.0 1 5.0-8.0 [facility] AND [id number] 22:34:00 Test Item Value Reference Range Interpretation Comments UA Spec Grav (test code = UA Spec 1.010 1 Grav) [facility] AND [id number] 22:34:00 Test Item Value Reference Range Interpretation Comments UA Turbidity (test code = Clear (04/27/15 5:34 UA Turbidity) PM) [facility] [id number] 22:34:00 Test Item Value Reference Range Interpretation Comments UA Color (test code = Yellow *NA*(04/27/15 UA Color) 5:34 PM) [facility] [id number] 22:34:00 Test Item Value Reference Range Interpretation Comments U Phencyc Scr (test Negative *NA*(04/27/15 code = U Phencyc Scr) 5:34 PM) [facility] [id number] 22:34:00 Test Item Value Reference Range Interpretation Comments U Opiate Scr (test Positive *ABN*(04/27/15 code = U Opiate Scr) 5:34 PM) [facility] [id number] 22:34:00 Test Item Value Reference Range Interpretation Comments UDS Note (test code = See Note (04/27/15 5:34 UDS Note) PM) [facility] [id number] 22:34:00 Test Item Value Reference Range Interpretation Comments U Cocaine Scr (test Negative *NA*(04/27/15 code = U Cocaine Scr) 5:34 PM) [facility] [id number] 22:34:00 Test Item Value Reference Range Interpretation Comments U Benzodia Scr (test Positive code = U Benzodia Scr) *ABN*(04/27/15 5:34 PM) [facility] [id number] 22:34:00 Test Item Value Reference Range Interpretation Comments U Amph Scr (test code Negative *NA*(04/27/15 = U Amph Scr) 5:34 PM) [facility] [id number] 22:34:00 Test Item Value Reference Range Interpretation Comments U Cannab Scr (test Positive *ABN*(04/27/15 code = U Cannab Scr) 5:34 PM) [facility] [id number] 22:34:00 Test Item Value Reference Range Interpretation Comments U Solange Scr (test code Negative *NA*(04/27/15 = U Solange Scr) 5:34 PM) [facility] [id number] 22:34:00 Test Item Value Reference Range Interpretation Comments UA Bacteria (test code = UA Occasional /HPF Bacteria) [facility] AND [id number] 22:34:00 Test Item Value Reference Range Interpretation Comments UA RBC (test code = 0-2 /HPF See_Comment [Automa mirna message] The UA RBC) system which ge nerated this result tra nsmitted reference range : <=2. The reference range was not used to interpr et this result as zahra l/abnormal. [facility] AND [id number] 22:34:00 Test Item Value Reference Range Interpretation Comments UA Protein (test code Negative (04/27/15 5:34 = UA Protein) PM) [facility] AND [id number] 22:34:00 Test Item Value Reference Range Interpretation Comments UA Urobilinogen (test code = UA 0.2 0.1-1.0 Urobilinogen) [facility] AND [id number] 22:34:00 Test Item Value Reference Range Interpretation Comments UA Blood (test code = Trace *ABN*(04/27/15 UA Blood) 5:34 PM) [facility] AND [id number] 22:34:00 Test Item Value Reference Range Interpretation Comments UA Nitrite (test code Negative (04/27/15 5:34 = UA Nitrite) PM) [facility] AND [id number] 22:34:00 Test Item Value Reference Range Interpretation Comments UA Bili (test code = Negative *NA*(04/27/15 UA Bili) 5:34 PM) [facility] AND [id number] 22:34:00 Test Item Value Reference Range Interpretation Comments UA Ketones (test code = UA Ketones) 15 mg/dL [facility] AND [id number] 22:34:00 Test Item Value Reference Range Interpretation Comments UA Glucose (test code Negative (04/27/15 5:34 = UA Glucose) PM) [facility] AND [id number] 22:34:00 Test Item Value Reference Range Interpretation Comments UA Sq Epi (test code = UA Sq Occasional /LPF Epi) [facility] AND [id number] 22:34:00 Test Item Value Reference Range Interpretation Comments UA Leuk Est (test Negative (04/27/15 5:34 code = [facility]A Leuk Est) PM) [facility] [id number] 22:34:00 Test Item Value Reference Range Interpretation Comments UA WBC (test code = UA WBC) 0-2 /HPF [facility] [id number] 22:34:00 Test Item Value Reference Range Interpretation Comments UA pH (test code = UA pH) 7.0 1 5.0-8.0 [facility] [id number] 22:34:00 Test Item Value Reference Range Interpretation Comments UA Spec Grav (test code = UA Spec 1.010 1 Grav) [facility] [id number] 22:34:00 Test Item Value Reference Range Interpretation Comments UA Turbidity (test code = Clear (04/27/15 5:34 UA Turbidity) PM) [facility] [id number] 22:34:00 Test Item Value Reference Range Interpretation Comments UA Color (test code = Yellow *NA*(04/27/15 UA Color) 5:34 PM) [facility] [id number] 22:34:00 Test Item Value Reference Range Interpretation Comments U Phencyc Scr (test Negative *NA*(04/27/15 code = U Phencyc Scr) 5:34 PM) [facility] [id number] 22:34:00 Test Item Value Reference Range Interpretation Comments U Opiate Scr (test Positive *ABN*(04/27/15 code = U Opiate Scr) 5:34 PM) [facility] [id number] 22:34:00 Test Item Value Reference Range Interpretation Comments UDS Note (test code = See Note (04/27/15 5:34 UDS Note) PM) [facility] [id number] 22:34:00 Test Item Value Reference Range Interpretation Comments U Cocaine Scr (test Negative *NA*(04/27/15 code = U Cocaine Scr) 5:34 PM) [facility] [id number] 22:34:00 Test Item Value Reference Range Interpretation Comments U Benzodia Scr (test Positive code = U Benzodia Scr) *ABN*(04/27/15 5:34 PM) [facility] [id number] 22:34:00 Test Item Value Reference Range Interpretation Comments U Amph Scr (test code Negative *NA*(04/27/15 = U Amph Scr) 5:34 PM) [facility] [id number] 22:34:00 Test Item Value Reference Range Interpretation Comments U Cannab Scr (test Positive *ABN*(04/27/15 code = U Cannab Scr) 5:34 PM) [facility] [id number] 22:34:00 Test Item Value Reference Range Interpretation Comments U Solange Scr (test code Negative *NA*(04/27/15 = U Solange Scr) 5:34 PM) [facility] [id number] 22:34:00 Test Item Value Reference Range Interpretation Comments UA Bacteria (test code = UA Occasional /HPF Bacteria) [facility] [id number] 22:34:00 Test Item Value Reference Range Interpretation Comments UA RBC (test code = UA RBC) 0-2 /HPF <=2 [facility] [id number] 22:34:00 Test Item Value Reference Range Interpretation Comments UA Protein (test code Negative (04/27/15 5:34 = UA Protein) PM) [facility] [id number] 22:34:00 Test Item Value Reference Range Interpretation Comments UA Urobilinogen (test code = UA 0.2 0.1-1.0 Urobilinogen) [facility] [id number] 22:34:00 Test Item Value Reference Range Interpretation Comments UA Blood (test code = Trace *ABN*(04/27/15 UA Blood) 5:34 PM) [facility] [id number] 22:34:00 Test Item Value Reference Range Interpretation Comments UA Nitrite (test code Negative (04/27/15 5:34 = UA Nitrite) PM) [facility] [id number] 22:34:00 Test Item Value Reference Range Interpretation Comments UA Bili (test code = Negative *NA*(04/27/15 UA Bili) 5:34 PM) [facility] [id number] 22:34:00 Test Item Value Reference Range Interpretation Comments UA Ketones (test code = UA Ketones) 15 mg[facility] [id number] 22:34:00 Test Item Value Reference Range Interpretation Comments UA Glucose (test code Negative (04/27/15 5:34 = UA Glucose) PM) [facility] AND [id number] 22:34:00 Test Item Value Reference Range Interpretation Comments UA Sq Epi (test code = UA Sq Occasional /LPF Epi) [facility] AND [id number] 22:34:00 Test Item Value Reference Range Interpretation Comments UA Leuk Est (test Negative (04/27/15 5:34 code = UA Leuk Est) PM) [facility] AND [id number] 22:34:00 Test Item Value Reference Range Interpretation Comments UA WBC (test code = UA WBC) 0-2 /HPF [facility] AND [id number] 22:34:00 Test Item Value Reference Range Interpretation Comments UA pH (test code = UA pH) 7.0 1 5.0-8.0 [facility] AND [id number] 22:34:00 Test Item Value Reference Range Interpretation Comments UA Spec Grav (test code = UA Spec 1.010 1 Grav) [facility] AND [id number] 22:34:00 Test Item Value Reference Range Interpretation Comments UA Turbidity (test code = Clear (04/27/15 5:34 UA Turbidity) PM) [facility] AND [id number] 22:34:00 Test Item Value Reference Range Interpretation Comments UA Color (test code = Yellow *NA*(04/27/15 UA Color) 5:34 PM) [facility]2015-10-31 15:40:00 Test Item Value Reference Range Interpretation Comments Amylase Lvl (test code = Amylase Lvl) 94 25-115 [facility]2015-10-31 15:40:00 Test Item Value Reference Range Interpretation Comments Lipase Lvl (test code = Lipase Lvl) 62 73-393 [facility]2015-10-31 15:40:00 Test Item Value Reference Range Interpretation Comments eGFR (test code = eGFR) 106 [facility]2015-10-31 15:40:00 Test Item Value Reference Range Interpretation Comments Bili Total (test code = Bili Total) 0.4 0.2-1.3 [facility]2015-10-31 15:40:00 Test Item Value Reference Range Interpretation Comments Alk Phos (test code = Alk Phos) 47 39-136 [facility]2015-10-31 15:40:00 Test Item Value Reference Range Interpretation Comments Globulin (test code = Globulin) 3.4 2.0-4.0 [facility]2015-10-31 15:40:00 Test Item Value Reference Range Interpretation Comments Albumin Lvl (test code = Albumin Lvl) 4.2 3.5-5.0 [facility]2015-10-31 15:40:00 Test Item Value Reference Range Interpretation Comments Total Protein (test code = Total 7.6 6.4-8.4 Protein) [facility]2015-10-31 15:40:00 Test Item Value Reference Range Interpretation Comments B/C Ratio (test code = B/C Ratio) 23 6-25 [facility]2015-10-31 15:40:00 Test Item Value Reference Range Interpretation Comments AST (test code = AST) 18 See_Comment [Auto mated message] The system which ge nerated this result transmit mirna reference range : <=37. The reference range was not used to interpr et this result as zahra l/abnormal. [facility]2015-10-31 15:40:00 Test Item Value Reference Range Interpretation Comments ALT (test code = ALT) 22 See_Comment [Auto mated message] The system which ge nerated this result transmit mirna reference range : <=65. The reference range was not used to interpr et this result as zahra l/abnormal. [facility]2015-10-31 15:40:00 Test Item Value Reference Range Interpretation Comments A/G Ratio (test code = A/G Ratio) 1.2 0.7-1.6 [facility]2015-10-31 15:40:00 Test Item Value Reference Range Interpretation Comments Chloride Lvl (test code = Chloride Lvl) 104 95-109 [facility]2015-10-31 15:40:00 Test Item Value Reference Range Interpretation Comments Potassium Lvl (test code = Potassium 2.8 3.5-5.1 Lvl) [facility]2015-10-31 15:40:00 Test Item Value Reference Range Interpretation Comments Creatinine Lvl (test code = Creatinine 0.7 0.5-1.4 Lvl) [place] [id number] 15:40:00 Test Item Value Reference Range Interpretation Comments BUN (test code = BUN) 16 7-22 [facility]2015-10-31 15:40:00 Test Item Value Reference Range Interpretation Comments Sodium Lvl (test code = Sodium Lvl) 139 135-145 [facility]2015-10-31 15:40:00 Test Item Value Reference Range Interpretation Comments Calcium Lvl (test code = Calcium Lvl) 9.3 8.5-10.5 [facility]2015-10-31 15:40:00 Test Item Value Reference Range Interpretation Comments AGAP (test code = AGAP) 11.8 10.0-20.0 [facility]2015-10-31 15:40:00 Test Item Value Reference Range Interpretation Comments CO2 (test code = CO2) 26 24-32 [facility]2015-10-31 15:40:00 Test Item Value Reference Range Interpretation Comments Glucose Lvl (test code = Glucose Lvl) 106 70-99 [place] [id number] 15:40:00 Test Item Value Reference Range Interpretation Comments S Preg (test code = S Negative *NA*(04/27/15 Preg) 10:40 AM) [id number] 15:40:00 Test Item Value Reference Range Interpretation Comments Eosinophils (test code = 0.0 See_Comment [A utomated message] The Eosinophils) system which ge nerated this result tra nsmitted reference range : <=4.0. The reference r chuck was not used to int erpret this result as normal/abnormal . [facility] H[id number] 15:40:00 Test Item Value Reference Range Interpretation Comments Basophils (test code = 0.2 See_Comment [Aut omated message] The Basophils) system which ge nerated this result tra nsmitted reference range : <=1.0. The reference r chuck was not used to int erpret this result as normal/abnormal . [facility] HospitalZqewyadADPDPIHAEQ0062-10-89 15:40:00 Test Item Value Reference Range Interpretation Comments Segs-Bands # (test code = Segs-Bands #) 11.8 1.5-8.1 [facility] H[id number] 15:40:00 Test Item Value Reference Range Interpretation Comments RBC Morph (test code = Normal (04/27/15 10:40 RBC Morph) AM) [facility] HospitalEykeqllYLFPRWEAUV1637-10-06 15:40:00 Test Item Value Reference Range Interpretation Comments Plt Morph (test code = Normal (04/27/15 10:40 Plt Morph) AM) [facility] HospitalQxtrmgeENUUUHXLBQ6298-09-81 15:40:00 Test Item Value Reference Range Interpretation Comments Segs (test code = Segs) 81.9 45.0-75.0 [facility] HospitalEbzmuvyEXDWAYRJVQ9386-61-81 15:40:00 Test Item Value Reference Range Interpretation Comments Eosinophils # (test code 0.0 See_Comment [A utomated message] The = Eosinophils #) system whic h generated this result tra nsmitted reference range : <=0.5. The reference r chuck was not used to int erpret this result as normal/abnormal . [facility] Hos[id number] 15:40:00 Test Item Value Reference Range Interpretation Comments Basophils # (test code 0.0 See_Comment [Aut omated message] The = Basophils #) system which generated this result tra nsmitted reference range : <=0.2. The reference r chuck was not used to int erpret this result as normal/abnormal . [facility] HospitalGilqrilKQWGZDTOBW7203-06-30 15:40:00 Test Item Value Reference Range Interpretation Comments Lymphocytes # (test code = Lymphocytes 1.7 1.0-5.5 #) [facility] HospitalXydhpfuGNMYYEQDXF2235-27-92 15:40:00 Test Item Value Reference Range Interpretation Comments Monocytes # (test code 0.9 See_Comment [Aut omated message] The = Monocytes #) system which generated this result tra nsmitted reference range : <=0.8. The reference r chuck was not used to int erpret this result as normal/abnormal . [facility] H[id number] 15:40:00 Test Item Value Reference Range Interpretation Comments Monocytes (test code = Monocytes) 6.3 2.0-12.0 [facility] HospitalFqnsbqrDTNGQJJVBS3876-85-35 15:40:00 Test Item Value Reference Range Interpretation Comments Lymphocytes (test code = Lymphocytes) 11.6 20.0-40.0 [facility] Hos[id number] 15:40:00 Test Item Value Reference Range Interpretation Comments RDW (test code = RDW) 13.5 11.5-14.5 [facility] HospitalQrvgrzdOPAZREURVT5200-55-20 15:40:00 Test Item Value Reference Range Interpretation Comments MCHC (test code = MCHC) 33.2 32.0-36.0 [facility] HospitalKbivlldJBNMDMDEYY0439-96-30 15:40:00 Test Item Value Reference Range Interpretation Comments MPV (test code = MPV) 8.2 7.4-10.4 [facility] HospitalIbqvmuiOBMVUDBUPX1702-02-96 15:40:00 Test Item Value Reference Range Interpretation Comments Platelet (test code = Platelet) 294 133-450 [facility] HospitalUifwlipZIEWKHTTVF9265-05-46 15:40:00 Test Item Value Reference Range Interpretation Comments MCV (test code = MCV) 98.9 80.0-98.0 [facility] HospitalCxicmzxJOWYIIWGCR5522-95-43 15:40:00 Test Item Value Reference Range Interpretation Comments MCH (test code = MCH) 32.8 pg 27.0-31.0 [facility] HospitalImmonmnOEPRRVDYDI8569-97-70 15:40:00 Test Item Value Reference Range Interpretation Comments RBC (test code = RBC) 3.67 4.20-5.40 [facility] HospitalVsszwqaNZDMPJOPAX9901-72-69 15:40:00 Test Item Value Reference Range Interpretation Comments Hgb (test code = Hgb) 12.0 12.0-16.0 [facility] HospitalMplmacuABCBSMPDGA3822-31-65 15:40:00 Test Item Value Reference Range Interpretation Comments Hct (test code = Hct) 36.3 36.0-48.0 [facility] HospitalBeondvuKXIANKORLQ2975-98-31 15:40:00 Test Item Value Reference Range Interpretation Comments WBC (test code = WBC) 14.4 3.7-10.4 [facility]2015-10-31 15:40:00 Test Item Value Reference Range Interpretation Comments Amylase Lvl (test code = Amylase Lvl) 94 25-115 [facility]2015-10-31 15:40:00 Test Item Value Reference Range Interpretation Comments Lipase Lvl (test code = Lipase Lvl) 62 73-393 [facility]2015-10-31 15:40:00 Test Item Value Reference Range Interpretation Comments eGFR (test code = eGFR) 106 [facility]2015-10-31 15:40:00 Test Item Value Reference Range Interpretation Comments Bili Total (test code = Bili Total) 0.4 0.2-1.3 [facility]2015-10-31 15:40:00 Test Item Value Reference Range Interpretation Comments Alk Phos (test code = Alk Phos) 47 39-136 [facility]2015-10-31 15:40:00 Test Item Value Reference Range Interpretation Comments Globulin (test code = Globulin) 3.4 2.0-4.0 [facility]2015-10-31 15:40:00 Test Item Value Reference Range Interpretation Comments Albumin Lvl (test code = Albumin Lvl) 4.2 3.5-5.0 [facility]2015-10-31 15:40:00 Test Item Value Reference Range Interpretation Comments Total Protein (test code = Total 7.6 6.4-8.4 Protein) [place] 307945-10-31 15:40:00 Test Item Value Reference Range Interpretation Comments B/C Ratio (test code = B/C Ratio) 23 6-25 [place] 307945-10-31 15:40:00 Test Item Value Reference Range Interpretation Comments AST (test code = AST) 18 See_Comment [Auto mated message] The system which ge nerated this result transmit mirna reference range : <=37. The reference range was not used to interpr et this result as zahra l/abnormal. [facility]2015-10-31 15:40:00 Test Item Value Reference Range Interpretation Comments ALT (test code = ALT) 22 See_Comment [Auto mated message] The system which ge nerated this result transmit mirna reference range : <=65. The reference range was not used to interpr et this result as zahra l/abnormal. [place] 307945-10-31 15:40:00 Test Item Value Reference Range Interpretation Comments A/G Ratio (test code = A/G Ratio) 1.2 0.7-1.6 [place] 307945-10-31 15:40:00 Test Item Value Reference Range Interpretation Comments Chloride Lvl (test code = Chloride Lvl) 104 95-109 [place] 307945-10-31 15:40:00 Test Item Value Reference Range Interpretation Comments Potassium Lvl (test code = Potassium 2.8 3.5-5.1 Lvl) [facility]2015-10-31 15:40:00 Test Item Value Reference Range Interpretation Comments Creatinine Lvl (test code = Creatinine 0.7 0.5-1.4 Lvl) [facility]2015-10-31 15:40:00 Test Item Value Reference Range Interpretation Comments BUN (test code = BUN) 16 7-22 [place] 307945-10-31 15:40:00 Test Item Value Reference Range Interpretation Comments Sodium Lvl (test code = Sodium Lvl) 139 135-145 [facility]2015-10-31 15:40:00 Test Item Value Reference Range Interpretation Comments Calcium Lvl (test code = Calcium Lvl) 9.3 8.5-10.5 [facility]2015-10-31 15:40:00 Test Item Value Reference Range Interpretation Comments AGAP (test code = AGAP) 11.8 10.0-20.0 [place] 307945-10-31 15:40:00 Test Item Value Reference Range Interpretation Comments CO2 (test code = CO2) 26 24-32 [place] 307945-10-31 15:40:00 Test Item Value Reference Range Interpretation Comments Glucose Lvl (test code = Glucose Lvl) 106 70-99 [facility]xtooduNPXTYUSVJNMDL8745-88-64 15:40:00 Test Item Value Reference Range Interpretation Comments S Preg (test code = S Negative *NA*(04/27/15 Preg) 10:40 AM) [facility] HospitalZyxheuyAKPSIKJWCF5019-77-42 15:40:00 Test Item Value Reference Range Interpretation Comments Eosinophils (test code = 0.0 See_Comment [A utomated message] The Eosinophils) system which ge nerated this result tra nsmitted reference range : <=4.0. The reference r chuck was not used to int erpret this result as normal/abnormal . [facility] HospitalAasxpzkGONUHMHOBG5110-20-85 15:40:00 Test Item Value Reference Range Interpretation Comments Basophils (test code = 0.2 See_Comment [Aut omated message] The Basophils) system which ge nerated this result tra nsmitted reference range : <=1.0. The reference r chuck was not used to int erpret this result as normal/abnormal . [facility] HospitalZsqtvjkNLSNJPRZKP5801-20-21 15:40:00 Test Item Value Reference Range Interpretation Comments Segs-Bands # (test code = Segs-Bands #) 11.8 1.5-8.1 [facility] HospitalXqrexvpCOVTPVKHBV8921-01-53 15:40:00 Test Item Value Reference Range Interpretation Comments RBC Morph (test code = Normal (04/27/15 10:40 RBC Morph) AM) [facility] HospitalPhhxvrlBVIYNXREHL8291-37-23 15:40:00 Test Item Value Reference Range Interpretation Comments Plt Morph (test code = Normal (04/27/15 10:40 Plt Morph) AM) [facility] HospitalLdofwxhUUXJCIOHAA4098-44-78 15:40:00 Test Item Value Reference Range Interpretation Comments Segs (test code = Segs) 81.9 45.0-75.0 [facility] HospitalLinmnwtKHNSFMOMGE6015-22-32 15:40:00 Test Item Value Reference Range Interpretation Comments Eosinophils # (test code 0.0 See_Comment [A utomated message] The = Eosinophils #) system whic h generated this result tra nsmitted reference range : <=0.5. The reference r chuck was not used to int erpret this result as normal/abnormal . [facility] HospitalOywowviAJAXMETWXE7420-51-21 15:40:00 Test Item Value Reference Range Interpretation Comments Basophils # (test code 0.0 See_Comment [Aut omated message] The = Basophils #) system which generated this result tra nsmitted reference range : <=0.2. The reference r chuck was not used to int erpret this result as normal/abnormal . [facility] HospitalJskezusDNPRQVSMAL1364-42-71 15:40:00 Test Item Value Reference Range Interpretation Comments Lymphocytes # (test code = Lymphocytes 1.7 1.0-5.5 #) [facility] HospitalOmavfauCVXNIJHNSP2382-17-98 15:40:00 Test Item Value Reference Range Interpretation Comments Monocytes # (test code 0.9 See_Comment [Aut omated message] The = Monocytes #) system which generated this result tra nsmitted reference range : <=0.8. The reference r chuck was not used to int erpret this result as normal/abnormal . [facility] HospitalObugqxqUJFBNBDUEQ0322-51-35 15:40:00 Test Item Value Reference Range Interpretation Comments Monocytes (test code = Monocytes) 6.3 2.0-12.0 [facility] HospitalRcqgrkzFLTDNEWBTC1018-64-12 15:40:00 Test Item Value Reference Range Interpretation Comments Lymphocytes (test code = Lymphocytes) 11.6 20.0-40.0 [facility] HospitalMdcxwqrUPVHNXOOKI1164-32-88 15:40:00 Test Item Value Reference Range Interpretation Comments RDW (test code = RDW) 13.5 11.5-14.5 [facility] HospitalHmbgkukREEEVAMTYR3148-39-77 15:40:00 Test Item Value Reference Range Interpretation Comments MCHC (test code = MCHC) 33.2 32.0-36.0 [facility] HospitalKpklmjaYUPVYVVERW6934-25-16 15:40:00 Test Item Value Reference Range Interpretation Comments MPV (test code = MPV) 8.2 7.4-10.4 [facility] HospitalPjjsnjuNGBHKXCOJX5936-18-83 15:40:00 Test Item Value Reference Range Interpretation Comments Platelet (test code = Platelet) 294 133-450 [facility] HospitalShsvvwzJIELGOMASO4230-69-13 15:40:00 Test Item Value Reference Range Interpretation Comments MCV (test code = MCV) 98.9 80.0-98.0 [facility] HospitalFsvedvjPTBCUSCHPK1709-74-03 15:40:00 Test Item Value Reference Range Interpretation Comments MCH (test code = MCH) 32.8 pg 27.0-31.0 [facility] HospitalKgupwnvGNJTVBCKBB8557-37-57 15:40:00 Test Item Value Reference Range Interpretation Comments RBC (test code = RBC) 3.67 4.20-5.40 [facility] HospitalIgqfrrlTEXYYJSNRG4584-84-99 15:40:00 Test Item Value Reference Range Interpretation Comments Hgb (test code = Hgb) 12.0 12.0-16.0 [facility] HospitalUsditqmITRCARMTWL6107-04-16 15:40:00 Test Item Value Reference Range Interpretation Comments Hct (test code = Hct) 36.3 36.0-48.0 [facility] HospitalVwgpgzbSBJDOFLKPJ3887-20-23 15:40:00 Test Item Value Reference Range Interpretation Comments WBC (test code = WBC) 14.4 3.7-10.4 [facility]2015-10-31 15:40:00 Test Item Value Reference Range Interpretation Comments Amylase Lvl (test code = Amylase Lvl) 94 25-115 [facility]2015-10-31 15:40:00 Test Item Value Reference Range Interpretation Comments Lipase Lvl (test code = Lipase Lvl) 62 73-393 [facility]2015-10-31 15:40:00 Test Item Value Reference Range Interpretation Comments eGFR (test code = eGFR) 106 [place] 307945-10-31 15:40:00 Test Item Value Reference Range Interpretation Comments Bili Total (test code = Bili Total) 0.4 0.2-1.3 [place] 307945-10-31 15:40:00 Test Item Value Reference Range Interpretation Comments Alk Phos (test code = Alk Phos) 47 39-136 [facility]2015-10-31 15:40:00 Test Item Value Reference Range Interpretation Comments Globulin (test code = Globulin) 3.4 2.0-4.0 [place] 307945-10-31 15:40:00 Test Item Value Reference Range Interpretation Comments Albumin Lvl (test code = Albumin Lvl) 4.2 3.5-5.0 [place] 307945-10-31 15:40:00 Test Item Value Reference Range Interpretation Comments Total Protein (test code = Total 7.6 6.4-8.4 Protein) [facility]2015-10-31 15:40:00 Test Item Value Reference Range Interpretation Comments B/C Ratio (test code = B/C Ratio) 23 6-25 [place] 307945-10-31 15:40:00 Test Item Value Reference Range Interpretation Comments AST (test code = AST) 18 See_Comment [Auto mated message] The system which ge nerated this result transmit mirna reference range : <=37. The reference range was not used to interpr et this result as zahra l/abnormal. [place] 307945-10-31 15:40:00 Test Item Value Reference Range Interpretation Comments ALT (test code = ALT) 22 See_Comment [Auto mated message] The system which ge nerated this result transmit mirna reference range : <=65. The reference range was not used to interpr et this result as zahra l/abnormal. [place] 307945-10-31 15:40:00 Test Item Value Reference Range Interpretation Comments A/G Ratio (test code = A/G Ratio) 1.2 0.7-1.6 [facility]2015-10-31 15:40:00 Test Item Value Reference Range Interpretation Comments Chloride Lvl (test code = Chloride Lvl) 104 95-109 [facility]2015-10-31 15:40:00 Test Item Value Reference Range Interpretation Comments Potassium Lvl (test code = Potassium 2.8 3.5-5.1 Lvl) [facility]2015-10-31 15:40:00 Test Item Value Reference Range Interpretation Comments Creatinine Lvl (test code = Creatinine 0.7 0.5-1.4 Lvl) [facility]2015-10-31 15:40:00 Test Item Value Reference Range Interpretation Comments BUN (test code = BUN) 16 7-22 [facility]2015-10-31 15:40:00 Test Item Value Reference Range Interpretation Comments Sodium Lvl (test code = Sodium Lvl) 139 135-145 [facility]2015-10-31 15:40:00 Test Item Value Reference Range Interpretation Comments Calcium Lvl (test code = Calcium Lvl) 9.3 8.5-10.5 [facility]2015-10-31 15:40:00 Test Item Value Reference Range Interpretation Comments AGAP (test code = AGAP) 11.8 10.0-20.0 [facility]2015-10-31 15:40:00 Test Item Value Reference Range Interpretation Comments CO2 (test code = CO2) 26 24-32 [facility]2015-10-31 15:40:00 Test Item Value Reference Range Interpretation Comments Glucose Lvl (test code = Glucose Lvl) 106 70-99 [facility]sp[facility]DSUUOFJIZKSMU0167-74-56 15:40:00 Test Item Value Reference Range Interpretation Comments S Preg (test code = S Negative *NA*(04/27/15 Preg) 10:40 AM) [facility]NfthrccMNBFCILRAU7465-08-29 15:40:00 Test Item Value Reference Range Interpretation Comments Eosinophils (test code = 0.0 See_Comment [A utomated message] The Eosinophils) system which ge nerated this result tra nsmitted reference range : <=4.0. The reference r chuck was not used to int erpret this result as normal/abnormal . [facility] HospitalBkvsdxdAWBOUNNFNT9115-31-88 15:40:00 Test Item Value Reference Range Interpretation Comments Basophils (test code = 0.2 See_Comment [Aut omated message] The Basophils) system which ge nerated this result tra nsmitted reference range : <=1.0. The reference r chuck was not used to int erpret this result as normal/abnormal . [facility] HospitalMvovopqDTAYUCFKXD6060-08-36 15:40:00 Test Item Value Reference Range Interpretation Comments Segs-Bands # (test code = Segs-Bands #) 11.8 1.5-8.1 [facility] HospitalWgjvcjaCYDVGDCQLA0462-21-70 15:40:00 Test Item Value Reference Range Interpretation Comments RBC Morph (test code = Normal (04/27/15 10:40 RBC Morph) AM) [facility] HospitalClflracJMPCYQJNJF9923-80-89 15:40:00 Test Item Value Reference Range Interpretation Comments Plt Morph (test code = Normal (04/27/15 10:40 Plt Morph) AM) [facility] HospitalBmswgsqLBBDJNPICY6219-91-63 15:40:00 Test Item Value Reference Range Interpretation Comments Segs (test code = Segs) 81.9 45.0-75.0 [facility] HospitalHagonxbZRFFALJVSU1498-71-10 15:40:00 Test Item Value Reference Range Interpretation Comments Eosinophils # (test code 0.0 See_Comment [A utomated message] The = Eosinophils #) system whic h generated this result tra nsmitted reference range : <=0.5. The reference r chuck was not used to int erpret this result as normal/abnormal . [facility] HospitalPwoigreGGNVXVPMPW6967-43-94 15:40:00 Test Item Value Reference Range Interpretation Comments Basophils # (test code 0.0 See_Comment [Aut omated message] The = Basophils #) system which generated this result tra nsmitted reference range : <=0.2. The reference r chuck was not used to int erpret this result as normal/abnormal . [facility] HospitalGbtyvcwRRJYGCARYT4280-67-98 15:40:00 Test Item Value Reference Range Interpretation Comments Lymphocytes # (test code = Lymphocytes 1.7 1.0-5.5 #) [facility] HospitalKgmvkrjVFWALVDWGT2340-15-07 15:40:00 Test Item Value Reference Range Interpretation Comments Monocytes # (test code 0.9 See_Comment [Aut omated message] The = Monocytes #) system which generated this result tra nsmitted reference range : <=0.8. The reference r chuck was not used to int erpret this result as normal/abnormal . [facility] HospitalWzebadmBNYLTEPQNI9998-84-36 15:40:00 Test Item Value Reference Range Interpretation Comments Monocytes (test code = Monocytes) 6.3 2.0-12.0 [facility] HospitalQtxtudnUMKMSXCFEN2078-96-71 15:40:00 Test Item Value Reference Range Interpretation Comments Lymphocytes (test code = Lymphocytes) 11.6 20.0-40.0 [facility] HospitalUrrflmdOWRZMBAOYH6966-62-43 15:40:00 Test Item Value Reference Range Interpretation Comments RDW (test code = RDW) 13.5 11.5-14.5 [facility] HospitalOkwnkqpWDFCLABDLB3165-67-65 15:40:00 Test Item Value Reference Range Interpretation Comments MCHC (test code = MCHC) 33.2 32.0-36.0 [facility] HospitalZxfaxmjRGRUOYRLVW7864-54-23 15:40:00 Test Item Value Reference Range Interpretation Comments MPV (test code = MPV) 8.2 7.4-10.4 [facility] HospitalKcxvksxEOCPGGZODP1731-82-37 15:40:00 Test Item Value Reference Range Interpretation Comments Platelet (test code = Platelet) 294 133-450 [facility] HospitalDnoopxsGNLZYTYSKV1785-63-18 15:40:00 Test Item Value Reference Range Interpretation Comments MCV (test code = MCV) 98.9 80.0-98.0 [facility] HospitalFgueootJVAKEBVPXX2668-05-74 15:40:00 Test Item Value Reference Range Interpretation Comments MCH (test code = MCH) 32.8 pg 27.0-31.0 [facility] HospitalVripeemRYQTNPMQHU9070-76-24 15:40:00 Test Item Value Reference Range Interpretation Comments RBC (test code = RBC) 3.67 4.20-5.40 [facility] HospitalKgvumgqHSKVMTYCXO1800-40-95 15:40:00 Test Item Value Reference Range Interpretation Comments Hgb (test code = Hgb) 12.0 12.0-16.0 [facility] HospitalEnvziqbVWVZRGGJKO9104-79-67 15:40:00 Test Item Value Reference Range Interpretation Comments Hct (test code = Hct) 36.3 36.0-48.0 [facility] HospitalTugnrezYDSKXIGRCB6406-65-70 15:40:00 Test Item Value Reference Range Interpretation Comments WBC (test code = WBC) 14.4 3.7-10.4 [facility]2015-10-31 15:40:00 Test Item Value Reference Range Interpretation Comments Amylase Lvl (test code = Amylase Lvl) 94 25-115 [facility]2015-10-31 15:40:00 Test Item Value Reference Range Interpretation Comments Lipase Lvl (test code = Lipase Lvl) 62 73-393 [facility]2015-10-31 15:40:00 Test Item Value Reference Range Interpretation Comments eGFR (test code = eGFR) 106 [facility]2015-10-31 15:40:00 Test Item Value Reference Range Interpretation Comments Bili Total (test code = Bili Total) 0.4 0.2-1.3 [facility]2015-10-31 15:40:00 Test Item Value Reference Range Interpretation Comments Alk Phos (test code = Alk Phos) 47 39-136 [facility]2015-10-31 15:40:00 Test Item Value Reference Range Interpretation Comments Globulin (test code = Globulin) 3.4 2.0-4.0 [facility]2015-10-31 15:40:00 Test Item Value Reference Range Interpretation Comments Albumin Lvl (test code = Albumin Lvl) 4.2 3.5-5.0 [facility]2015-10-31 15:40:00 Test Item Value Reference Range Interpretation Comments Total Protein (test code = Total 7.6 6.4-8.4 Protein) [facility]2015-10-31 15:40:00 Test Item Value Reference Range Interpretation Comments B/C Ratio (test code = B/C Ratio) 23 6-25 [place] 307945-10-31 15:40:00 Test Item Value Reference Range Interpretation Comments AST (test code = AST) 18 See_Comment [Auto mated message] The system which ge nerated this result transmit mirna reference range : <=37. The reference range was not used to interpr et this result as zahra l/abnormal. [facility]2015-10-31 15:40:00 Test Item Value Reference Range Interpretation Comments ALT (test code = ALT) 22 See_Comment [Auto mated message] The system which ge nerated this result transmit mirna reference range : <=65. The reference range was not used to interpr et this result as zahra l/abnormal. [facility]2015-10-31 15:40:00 Test Item Value Reference Range Interpretation Comments A/G Ratio (test code = A/G Ratio) 1.2 0.7-1.6 [facility]2015-10-31 15:40:00 Test Item Value Reference Range Interpretation Comments Chloride Lvl (test code = Chloride Lvl) 104 95-109 [facility]2015-10-31 15:40:00 Test Item Value Reference Range Interpretation Comments Potassium Lvl (test code = Potassium 2.8 3.5-5.1 Lvl) [facility]2015-10-31 15:40:00 Test Item Value Reference Range Interpretation Comments Creatinine Lvl (test code = Creatinine 0.7 0.5-1.4 Lvl) [facility]2015-10-31 15:40:00 Test Item Value Reference Range Interpretation Comments BUN (test code = BUN) 16 7-22 [facility]2015-10-31 15:40:00 Test Item Value Reference Range Interpretation Comments Sodium Lvl (test code = Sodium Lvl) 139 135-145 [facility]2015-10-31 15:40:00 Test Item Value Reference Range Interpretation Comments Calcium Lvl (test code = Calcium Lvl) 9.3 8.5-10.5 [facility]2015-10-31 15:40:00 Test Item Value Reference Range Interpretation Comments AGAP (test code = AGAP) 11.8 10.0-20.0 [facility]2015-10-31 15:40:00 Test Item Value Reference Range Interpretation Comments CO2 (test code = CO2) 26 24-32 [facility]2015-10-31 15:40:00 Test Item Value Reference Range Interpretation Comments Glucose Lvl (test code = Glucose Lvl) 106 70-99 [facility] CenterPaolperTRHUKOQUDDQXB6651-17-71 15:40:00 Test Item Value Reference Range Interpretation Comments S Preg (test code = S Negative *NA*(04/27/15 Preg) 10:40 AM) [facility] HospitalNdyhmspGYWWTYCDKG3991-47-69 15:40:00 Test Item Value Reference Range Interpretation Comments Eosinophils (test code = 0.0 See_Comment [A utomated message] The Eosinophils) system which ge nerated this result tra nsmitted reference range : <=4.0. The reference r chuck was not used to int erpret this result as normal/abnormal . [facility] HospitalMoppsnyMSGOBXBSVH1969-41-85 15:40:00 Test Item Value Reference Range Interpretation Comments Basophils (test code = 0.2 See_Comment [Aut omated message] The Basophils) system which ge nerated this result tra nsmitted reference range : <=1.0. The reference r chuck was not used to int erpret this result as normal/abnormal . [facility] HospitalVwaguhcMMUBQUWELI9569-70-35 15:40:00 Test Item Value Reference Range Interpretation Comments Segs-Bands # (test code = Segs-Bands #) 11.8 1.5-8.1 [facility] HospitalSbxjunxUWILZDXTRP6012-98-66 15:40:00 Test Item Value Reference Range Interpretation Comments RBC Morph (test code = Normal (04/27/15 10:40 RBC Morph) AM) [facility] HospitalYpcmqmjIZGQDLYJTD6508-83-17 15:40:00 Test Item Value Reference Range Interpretation Comments Plt Morph (test code = Normal (04/27/15 10:40 Plt Morph) AM) [facility] HospitalPokrbleOYKIXVEPJU2440-98-82 15:40:00 Test Item Value Reference Range Interpretation Comments Segs (test code = Segs) 81.9 45.0-75.0 [facility] HospitalNgehqqhZLKDKBKPRA9236-09-50 15:40:00 Test Item Value Reference Range Interpretation Comments Eosinophils # (test code 0.0 See_Comment [A utomated message] The = Eosinophils #) system [facility] generated this result tra nsmitted reference range : <=0.5. The reference r chuck was not used to int erpret this result as normal/abnormal . [facility] HospitalNhylrbdSBQRWASQLD1938-63-35 15:40:00 Test Item Value Reference Range Interpretation Comments Basophils # (test code 0.0 See_Comment [Aut omated message] The = Basophils #) system which generated this result tra nsmitted reference range : <=0.2. The reference r chuck was not used to int erpret this result as normal/abnormal . [facility] HospitalVfvntmjBFEDVHOVBR4912-69-40 15:40:00 Test Item Value Reference Range Interpretation Comments Lymphocytes # (test code = Lymphocytes 1.7 1.0-5.5 #) [facility] HospitalIziuvkuWLBPFTLRVQ4390-49-45 15:40:00 Test Item Value Reference Range Interpretation Comments Monocytes # (test code 0.9 See_Comment [Aut omated message] The = Monocytes #) system which generated this result tra nsmitted reference range : <=0.8. The reference r chuck was not used to int erpret this result as normal/abnormal . [facility] HospitalBfkmguuUEBEBWRUXJ9714-23-82 15:40:00 Test Item Value Reference Range Interpretation Comments Monocytes (test code = Monocytes) 6.3 2.0-12.0 [facility] HospitalPlfilexTEVJTJWFRX1194-27-61 15:40:00 Test Item Value Reference Range Interpretation Comments Lymphocytes (test code = Lymphocytes) 11.6 20.0-40.0 [facility] HospitalCkujtucUIAPMFFHMK7137-93-69 15:40:00 Test Item Value Reference Range Interpretation Comments RDW (test code = RDW) 13.5 11.5-14.5 [facility] HospitalZqlrzfzAGFCONRJGG8303-70-21 15:40:00 Test Item Value Reference Range Interpretation Comments MCHC (test code = MCHC) 33.2 32.0-36.0 [facility] HospitalKcchvpnOLJRCKQHAM0269-43-39 15:40:00 Test Item Value Reference Range Interpretation Comments MPV (test code = MPV) 8.2 7.4-10.4 [facility] HospitalChwvdyzVAGDQJNXUA6230-40-95 15:40:00 Test Item Value Reference Range Interpretation Comments Platelet (test code = Platelet) 294 133-450 [facility] HospitalCvvpyxtHYHVVESHGX4158-49-14 15:40:00 Test Item Value Reference Range Interpretation Comments MCV (test code = MCV) 98.9 80.0-98.0 [facility] HospitalNxqxexhQKGFEGRBBY6090-62-78 15:40:00 Test Item Value Reference Range Interpretation Comments MCH (test code = MCH) 32.8 pg 27.0-31.0 [facility] HospitalClkdsheRNTJHCNFEZ4627-89-92 15:40:00 Test Item Value Reference Range Interpretation Comments RBC (test code = RBC) 3.67 4.20-5.40 [facility] HospitalQnhonrjHIJRQFHJHO2145-19-37 15:40:00 Test Item Value Reference Range Interpretation Comments Hgb (test code = Hgb) 12.0 12.0-16.0 [facility] HospitalEbqklnzTWQBKMUVOM0583-96-01 15:40:00 Test Item Value Reference Range Interpretation Comments Hct (test code = Hct) 36.3 36.0-48.0 [facility] HospitalLgapllcPATNAEPIJG6813-21-51 15:40:00 Test Item Value Reference Range Interpretation Comments WBC (test code = WBC) 14.4 3.7-10.4 [facility]2015-10-31 15:40:00 Test Item Value Reference Range Interpretation Comments Amylase Lvl (test code = Amylase Lvl) 94 25-115 [facility]2015-10-31 15:40:00 Test Item Value Reference Range Interpretation Comments Lipase Lvl (test code = Lipase Lvl) 62 73-393 [facility]2015-10-31 15:40:00 Test Item Value Reference Range Interpretation Comments eGFR (test code = eGFR) 106 [facility]2015-10-31 15:40:00 Test Item Value Reference Range Interpretation Comments Bili Total (test code = Bili Total) 0.4 0.2-1.3 [facility]2015-10-31 15:40:00 Test Item Value Reference Range Interpretation Comments Alk Phos (test code = Alk Phos) 47 39-136 [facility]2015-10-31 15:40:00 Test Item Value Reference Range Interpretation Comments Globulin (test code = Globulin) 3.4 2.0-4.0 [facility]2015-10-31 15:40:00 Test Item Value Reference Range Interpretation Comments Albumin Lvl (test code = Albumin Lvl) 4.2 3.5-5.0 [facility]2015-10-31 15:40:00 Test Item Value Reference Range Interpretation Comments Total Protein (test code = Total 7.6 6.4-8.4 Protein) [facility]2015-10-31 15:40:00 Test Item Value Reference Range Interpretation Comments B/C Ratio (test code = B/C Ratio) 23 6-25 [facility]2015-10-31 15:40:00 Test Item Value Reference Range Interpretation Comments AST (test code = AST) 18 See_Comment [Auto mated message] The system which ge nerated this result transmit mirna reference range : <=37. The reference range was not used to interpr et this result as zahra l/abnormal. [facility]2015-10-31 15:40:00 Test Item Value Reference Range Interpretation Comments ALT (test code = ALT) 22 See_Comment [Auto mated message] The system which ge nerated this result transmit mirna reference range : <=65. The reference range was not used to interpr et this result as zahra l/abnormal. [facility]2015-10-31 15:40:00 Test Item Value Reference Range Interpretation Comments A/G Ratio (test code = A/G Ratio) 1.2 0.7-1.6 [facility]2015-10-31 15:40:00 Test Item Value Reference Range Interpretation Comments Chloride Lvl (test code = Chloride Lvl) 104 95-109 [facility]2015-10-31 15:40:00 Test Item Value Reference Range Interpretation Comments Potassium Lvl (test code = Potassium 2.8 3.5-5.1 Lvl) [facility]2015-10-31 15:40:00 Test Item Value Reference Range Interpretation Comments Creatinine Lvl (test code = Creatinine 0.7 0.5-1.4 Lvl) [facility]2015-10-31 15:40:00 Test Item Value Reference Range Interpretation Comments BUN (test code = BUN) 16 7-22 [facility]2015-10-31 15:40:00 Test Item Value Reference Range Interpretation Comments Sodium Lvl (test code = Sodium Lvl) 139 135-145 [facility]2015-10-31 15:40:00 Test Item Value Reference Range Interpretation Comments Calcium Lvl (test code = Calcium Lvl) 9.3 8.5-10.5 [facility]2015-10-31 15:40:00 Test Item Value Reference Range Interpretation Comments AGAP (test code = AGAP) 11.8 10.0-20.0 [facility]2015-10-31 15:40:00 Test Item Value Reference Range Interpretation Comments CO2 (test code = CO2) 26 24-32 [facility]2015-10-31 15:40:00 Test Item Value Reference Range Interpretation Comments Glucose Lvl (test code = Glucose Lvl) 106 70-99 [facility]GpllpcbKHINVXPOMFPXY2964-54-20 15:40:00 Test Item Value Reference Range Interpretation Comments S Preg (test code = S Negative *NA*(04/27/15 Preg) 10:40 AM) [facility] HospitalVxdiglzBYHPKGSGYZ8881-39-34 15:40:00 Test Item Value Reference Range Interpretation Comments Eosinophils (test code = 0.0 See_Comment [A utomated message] The Eosinophils) system which ge nerated this result tra nsmitted reference range : <=4.0. The reference r chuck was not used to int erpret this result as normal/abnormal . [facility] HospitalSvsqdxmYCFQTLOFNE0387-89-90 15:40:00 Test Item Value Reference Range Interpretation Comments Basophils (test code = 0.2 See_Comment [Aut omated message] The Basophils) system which ge nerated this result tra nsmitted reference range : <=1.0. The reference r chuck was not used to int erpret this result as normal/abnormal . [facility] HospitalUflllwwHTVWLEPQIL7699-47-53 15:40:00 Test Item Value Reference Range Interpretation Comments Segs-Bands # (test code = Segs-Bands #) 11.8 1.5-8.1 [facility] HospitalX[id number] 15:40:00 Test Item Value Reference Range Interpretation Comments RBC Morph (test code = Normal (04/27/15 10:40 RBC Morph) AM) [facility] HospitalYvoyuzpFVSWKJYNPD7568-60-49 15:40:00 Test Item Value Reference Range Interpretation Comments Plt Morph (test code = Normal (04/27/15 10:40 Plt Morph) AM) [facility] HospitalUfhyuymQGAOCDNGKW9561-06-62 15:40:00 Test Item Value Reference Range Interpretation Comments Segs (test code = Segs) 81.9 45.0-75.0 [facility] HospitalMoblalvLEBUEFQMMJ3446-92-86 15:40:00 Test Item Value Reference Range Interpretation Comments Eosinophils # (test code 0.0 See_Comment [A utomated message] The = Eosinophils #) system whic h generated this result tra nsmitted reference range : <=0.5. The reference r chuck was not used to int erpret this result as normal/abnormal . [facility] HospitalHngjouvIMEUBYKPIH0739-49-14 15:40:00 Test Item Value Reference Range Interpretation Comments Basophils # (test code 0.0 See_Comment [Aut omated message] The = Basophils #) system which generated this result tra nsmitted reference range : <=0.2. The reference r chuck was not used to int erpret this result as normal/abnormal . [facility] HospitalJehphaoGAGDYBJMZC6383-71-80 15:40:00 Test Item Value Reference Range Interpretation Comments Lymphocytes # (test code = Lymphocytes 1.7 1.0-5.5 #) [facility] HospitalYtqxxenVQOUHVVGHS3795-44-22 15:40:00 Test Item Value Reference Range Interpretation Comments Monocytes # (test code 0.9 See_Comment [Aut omated message] The = Monocytes #) system which generated this result tra nsmitted reference range : <=0.8. The reference r chuck was not used to int erpret this result as normal/abnormal . [facility] HospitalGtemejkXYBLQATCTT2914-06-54 15:40:00 Test Item Value Reference Range Interpretation Comments Monocytes (test code = Monocytes) 6.3 2.0-12.0 [facility] HospitalFhekfdqGVGARIGXIC6497-68-10 15:40:00 Test Item Value Reference Range Interpretation Comments Lymphocytes (test code = Lymphocytes) 11.6 20.0-40.0 [facility] HospitalGfjpywuECHVZUQAGN6053-49-18 15:40:00 Test Item Value Reference Range Interpretation Comments RDW (test code = RDW) 13.5 11.5-14.5 [facility]AxjwhorRZBEWYBHHQ6550-21-43 15:40:00 Test Item Value Reference Range Interpretation Comments MCHC (test code = MCHC) 33.2 32.0-36.0 [facility] HospitalHektowhWBICVDUNKZ5331-28-23 15:40:00 Test Item Value Reference Range Interpretation Comments MPV (test code = MPV) 8.2 7.4-10.4 [facility] HospitalRlkykwqADSCMTVMCL1089-46-18 15:40:00 Test Item Value Reference Range Interpretation Comments Platelet (test code = Platelet) 294 133-450 [facility] HospitalRyqbcakNVIMTNOLVU5691-01-68 15:40:00 Test Item Value Reference Range Interpretation Comments MCV (test code = MCV) 98.9 80.0-98.0 [facility] HospitalKbmbjqdYTEMXGSTRO7814-29-91 15:40:00 Test Item Value Reference Range Interpretation Comments MCH (test code = MCH) 32.8 pg 27.0-31.0 [facility] HospitalBmsolzwNKKFHRDWBR0829-25-56 15:40:00 Test Item Value Reference Range Interpretation Comments RBC (test code = RBC) 3.67 4.20-5.40 [facility] HospitalYahbspfQHVAFSWJMV4097-67-08 15:40:00 Test Item Value Reference Range Interpretation Comments Hgb (test code = Hgb) 12.0 12.0-16.0 [facility] HospitalVctoyrbQQZUSPYTDL1342-79-28 15:40:00 Test Item Value Reference Range Interpretation Comments Hct (test code = Hct) 36.3 36.0-48.0 [facility] HospitalYdzvuwnHMWFBCKMBN1683-64-55 15:40:00 Test Item Value Reference Range Interpretation Comments WBC (test code = WBC) 14.4 3.7-10.4 [facility]2015-10-31 15:40:00 Test Item Value Reference Range Interpretation Comments Amylase Lvl (test code = Amylase Lvl) 94 25-115 [facility]2015-10-31 15:40:00 Test Item Value Reference Range Interpretation Comments Lipase Lvl (test code = Lipase Lvl) 62 73-393 [facility]2015-10-31 15:40:00 Test Item Value Reference Range Interpretation Comments eGFR (test code = eGFR) 106 [facility]2015-10-31 15:40:00 Test Item Value Reference Range Interpretation Comments Bili Total (test code = Bili Total) 0.4 0.2-1.3 [facility]2015-10-31 15:40:00 Test Item Value Reference Range Interpretation Comments Alk Phos (test code = Alk Phos) 47 39-136 [facility]2015-10-31 15:40:00 Test Item Value Reference Range Interpretation Comments Globulin (test code = Globulin) 3.4 2.0-4.0 [facility]2015-10-31 15:40:00 Test Item Value Reference Range Interpretation Comments Albumin Lvl (test code = Albumin Lvl) 4.2 3.5-5.0 [facility]2015-10-31 15:40:00 Test Item Value Reference Range Interpretation Comments Total Protein (test code = Total 7.6 6.4-8.4 Protein) [facility]2015-10-31 15:40:00 Test Item Value Reference Range Interpretation Comments B/C Ratio (test code = B/C Ratio) 23 6-25 [facility]2015-10-31 15:40:00 Test Item Value Reference Range Interpretation Comments AST (test code = AST) 18 See_Comment [Auto mated message] The system which ge nerated this result transmit mirna reference range : <=37. The reference range was not used to interpr et this result as zahra l/abnormal. [facility]2015-10-31 15:40:00 Test Item Value Reference Range Interpretation Comments ALT (test code = ALT) 22 See_Comment [Auto mated message] The system which ge nerated this result transmit mirna reference range : <=65. The reference range was not used to interpr et this result as zahra l/abnormal. [facility]2015-10-31 15:40:00 Test Item Value Reference Range Interpretation Comments A/G Ratio (test code = A/G Ratio) 1.2 0.7-1.6 [facility]2015-10-31 15:40:00 Test Item Value Reference Range Interpretation Comments Chloride Lvl (test code = Chloride Lvl) 104 95-109 [facility]2015-10-31 15:40:00 Test Item Value Reference Range Interpretation Comments Potassium Lvl (test code = Potassium 2.8 3.5-5.1 Lvl) [facility]2015-10-31 15:40:00 Test Item Value Reference Range Interpretation Comments Creatinine Lvl (test code = Creatinine 0.7 0.5-1.4 Lvl) [facility]2015-10-31 15:40:00 Test Item Value Reference Range Interpretation Comments BUN (test code = BUN) 16 7-22 [place] [id number] 15:40:00 Test Item Value Reference Range Interpretation Comments Sodium Lvl (test code = Sodium Lvl) 139 135-145 [facility]2015-10-31 15:40:00 Test Item Value Reference Range Interpretation Comments Calcium Lvl (test code = Calcium Lvl) 9.3 8.5-10.5 [facility]2015-10-31 15:40:00 Test Item Value Reference Range Interpretation Comments AGAP (test code = AGAP) 11.8 10.0-20.0 [facility]2015-10-31 15:40:00 Test Item Value Reference Range Interpretation Comments CO2 (test code = CO2) 26 24-32 [facility]2015-10-31 15:40:00 Test Item Value Reference Range Interpretation Comments Glucose Lvl (test code = Glucose Lvl) 106 70-99 [place] [id number] 15:40:00 Test Item Value Reference Range Interpretation Comments S Preg (test code = S Negative *NA*(04/27/15 Preg) 10:40 AM) [facility] HospitalDlnqnrkXNXBVYZVEV9986-69-14 15:40:00 Test Item Value Reference Range Interpretation Comments Eosinophils (test code = 0.0 See_Comment [A utomated message] The Eosinophils) system which ge nerated this result tra nsmitted reference range : <=4.0. The reference r chuck was not used to int erpret this result as normal/abnormal . [facility] HospitalCrmaprtCAYFGWHFDA0771-20-86 15:40:00 Test Item Value Reference Range Interpretation Comments Basophils (test code = 0.2 See_Comment [Aut omated message] The Basophils) system which ge nerated this result tra nsmitted reference range : <=1.0. The reference r chuck was not used to int erpret this result as normal/abnormal . [facility] HospitalFfaunlwHDTMJCGNVD9800-56-40 15:40:00 Test Item Value Reference Range Interpretation Comments Segs-Bands # (test code = Segs-Bands #) 11.8 1.5-8.1 [facility] HospitalQglemvvGDROQFBUEB5812-26-23 15:40:00 Test Item Value Reference Range Interpretation Comments RBC Morph (test code = Normal (04/27/15 10:40 RBC Morph) AM) [facility] HospitalIpevqvgGHOIUXPPCM2290-35-43 15:40:00 Test Item Value Reference Range Interpretation Comments Plt Morph (test code = Normal (04/27/15 10:40 Plt Morph) AM) [facility] HospitalGotbdjjLCLOJTGESI7454-40-20 15:40:00 Test Item Value Reference Range Interpretation Comments Segs (test code = Segs) 81.9 45.0-75.0 [facility] HospitalJevamssZZGHDMZTJY8114-26-62 15:40:00 Test Item Value Reference Range Interpretation Comments Eosinophils # (test code 0.0 See_Comment [A utomated message] The = Eosinophils #) system whic h generated this result tra nsmitted reference range : <=0.5. The reference r chuck was not used to int erpret this result as normal/abnormal . [facility] HospitalKfbdpacBOLIATAAIG5767-64-07 15:40:00 Test Item Value Reference Range Interpretation Comments Basophils # (test code 0.0 See_Comment [Aut omated message] The = Basophils #) system which generated this result tra nsmitted reference range : <=0.2. The reference r chuck was not used to int erpret this result as normal/abnormal . [facility] HospitalRaelrybTBRDUMSEEF1140-72-38 15:40:00 Test Item Value Reference Range Interpretation Comments Lymphocytes # (test code = Lymphocytes 1.7 1.0-5.5 #) [facility] HospitalPsexajoYWQQTNJLUX7296-52-70 15:40:00 Test Item Value Reference Range Interpretation Comments Monocytes # (test code 0.9 See_Comment [Aut omated message] The = Monocytes #) system which generated this result tra nsmitted reference range : <=0.8. The reference r chuck was not used to int erpret this result as normal/abnormal . [facility] HospitalTbpolfnKLMTDLBOFU5520-99-31 15:40:00 Test Item Value Reference Range Interpretation Comments Monocytes (test code = Monocytes) 6.3 2.0-12.0 [facility] HospitalUmsmicsXEEPLEPLKD5017-87-86 15:40:00 Test Item Value Reference Range Interpretation Comments Lymphocytes (test code = Lymphocytes) 11.6 20.0-40.0 [facility] HospitalEmpnfibZOJLQIZQHG7490-76-59 15:40:00 Test Item Value Reference Range Interpretation Comments RDW (test code = RDW) 13.5 11.5-14.5 [facility] HospitalLcdmpwySCVKZUMYGG3259-37-68 15:40:00 Test Item Value Reference Range Interpretation Comments MCHC (test code = MCHC) 33.2 32.0-36.0 [facility] HospitalKzgudxfJGZKGQYIZG1208-78-84 15:40:00 Test Item Value Reference Range Interpretation Comments MPV (test code = MPV) 8.2 7.4-10.4 [facility] HospitalQvnmpekYRQSKXJTCV5617-02-48 15:40:00 Test Item Value Reference Range Interpretation Comments Platelet (test code = Platelet) 294 133-450 [facility] HospitalJdvluxsNOKQLYIXJT6177-52-03 15:40:00 Test Item Value Reference Range Interpretation Comments MCV (test code = MCV) 98.9 80.0-98.0 [facility] HospitalHlurpgiMFCQCWJFLV4621-42-92 15:40:00 Test Item Value Reference Range Interpretation Comments MCH (test code = MCH) 32.8 pg 27.0-31.0 [facility] HospitalTwkoiddFOGQLZSLNU7146-59-30 15:40:00 Test Item Value Reference Range Interpretation Comments RBC (test code = RBC) 3.67 4.20-5.40 [facility] HospitalJrrgzjuCMDKBZLXRB1414-27-26 15:40:00 Test Item Value Reference Range Interpretation Comments Hgb (test code = Hgb) 12.0 12.0-16.0 [facility] HospitalIejbbdqSGPNNIHDDE5997-25-20 15:40:00 Test Item Value Reference Range Interpretation Comments Hct (test code = Hct) 36.3 36.0-48.0 [facility] HospitalQbskbvjBNDYUWBULX6293-16-93 15:40:00 Test Item Value Reference Range Interpretation Comments WBC (test code = WBC) 14.4 3.7-10.4 [facility]2015-10-31 15:40:00 Test Item Value Reference Range Interpretation Comments Amylase Lvl (test code = Amylase Lvl) 94 25-115 [facility]2015-10-31 15:40:00 Test Item Value Reference Range Interpretation Comments Lipase Lvl (test code = Lipase Lvl) 62 73-393 [facility]2015-10-31 15:40:00 Test Item Value Reference Range Interpretation Comments eGFR (test code = eGFR) 106 [facility]2015-10-31 15:40:00 Test Item Value Reference Range Interpretation Comments Bili Total (test code = Bili Total) 0.4 0.2-1.3 [facility]2015-10-31 15:40:00 Test Item Value Reference Range Interpretation Comments Alk Phos (test code = Alk Phos) 47 39-136 [facility]2015-10-31 15:40:00 Test Item Value Reference Range Interpretation Comments Globulin (test code = Globulin) 3.4 2.0-4.0 [facility]2015-10-31 15:40:00 Test Item Value Reference Range Interpretation Comments Albumin Lvl (test code = Albumin Lvl) 4.2 3.5-5.0 [facility]2015-10-31 15:40:00 Test Item Value Reference Range Interpretation Comments Total Protein (test code = Total 7.6 6.4-8.4 Protein) [facility]2015-10-31 15:40:00 Test Item Value Reference Range Interpretation Comments B/C Ratio (test code = B/C Ratio) 23 6-25 [facility]2015-10-31 15:40:00 Test Item Value Reference Range Interpretation Comments AST (test code = AST) 18 <=37 [facility]2015-10-31 15:40:00 Test Item Value Reference Range Interpretation Comments ALT (test code = ALT) 22 <=65 [facility]2015-10-31 15:40:00 Test Item Value Reference Range Interpretation Comments A/G Ratio (test code = A/G Ratio) 1.2 0.7-1.6 [facility]2015-10-31 15:40:00 Test Item Value Reference Range Interpretation Comments Chloride Lvl (test code = Chloride Lvl) 104 95-109 [facility]2015-10-31 15:40:00 Test Item Value Reference Range Interpretation Comments Potassium Lvl (test code = Potassium 2.8 3.5-5.1 Lvl) [facility]2015-10-31 15:40:00 Test Item Value Reference Range Interpretation Comments Creatinine Lvl (test code = Creatinine 0.7 0.5-1.4 Lvl) [facility]2015-10-31 15:40:00 Test Item Value Reference Range Interpretation Comments BUN (test code = BUN) 16 7-22 [facility]2015-10-31 15:40:00 Test Item Value Reference Range Interpretation Comments Sodium Lvl (test code = Sodium Lvl) 139 135-145 [facility]2015-10-31 15:40:00 Test Item Value Reference Range Interpretation Comments Calcium Lvl (test code = Calcium Lvl) 9.3 8.5-10.5 [facility]2015-10-31 15:40:00 Test Item Value Reference Range Interpretation Comments AGAP (test code = AGAP) 11.8 10.0-20.0 [facility]2015-10-31 15:40:00 Test Item Value Reference Range Interpretation Comments CO2 (test code = CO2) 26 24-32 [facility] [id number] 15:40:00 Test Item Value Reference Range Interpretation Comments Glucose Lvl (test code = Glucose Lvl) 106 70-99 [facility]fr[facility]KOQQVEHKORKNK9107-82-64 15:40:00 Test Item Value Reference Range Interpretation Comments S Preg (test code = S Negative *NA*(04/27/15 Preg) 10:40 AM) [facility] HospitalHduttlnRKBMHTQKOA0352-30-51 15:40:00 Test Item Value Reference Range Interpretation Comments Eosinophils (test code = Eosinophils) 0.0 <=4.0 [facility] HospitalYskswjbHSQPPTGPJO8083-83-60 15:40:00 Test Item Value Reference Range Interpretation Comments Basophils (test code = Basophils) 0.2 <=1.0 [facility] HospitalKxzgmsmLFFIKIMYYM2422-26-88 15:40:00 Test Item Value Reference Range Interpretation Comments Segs-Bands # (test code = Segs-Bands #) 11.8 1.5-8.1 [facility] HospitalJwarryfUXIQARULNL9117-07-62 15:40:00 Test Item Value Reference Range Interpretation Comments RBC Morph (test code = Normal (04/27/15 10:40 RBC Morph) AM) [facility] HospitalCagcqlwUMJKCLNHXE2659-72-34 15:40:00 Test Item Value Reference Range Interpretation Comments Plt Morph (test code = Normal (04/27/15 10:40 Plt Morph) AM) [facility] HospitalSfdxxffFADQZBUFWB8111-83-42 15:40:00 Test Item Value Reference Range Interpretation Comments Segs (test code = Segs) 81.9 45.0-75.0 [facility] HospitalVxayjxgXEDZMDTECY4841-61-06 15:40:00 Test Item Value Reference Range Interpretation Comments Eosinophils # (test code = Eosinophils 0.0 <=0.5 #) [facility] HospitalLzudfwdWASFXRRXOL8960-92-94 15:40:00 Test Item Value Reference Range Interpretation Comments Basophils # (test code = Basophils #) 0.0 <=0.2 [facility] Hospit[id number] 15:40:00 Test Item Value Reference Range Interpretation Comments Lymphocytes # (test code = Lymphocytes 1.7 1.0-5.5 #) [facility] HospitalXxoyeyzFIQRXWGSXU6323-49-21 15:40:00 Test Item Value Reference Range Interpretation Comments Monocytes # (test code = Monocytes #) 0.9 <=0.8 [facility] HospitalPiilttiOXKDCINFBA2956-71-28 15:40:00 Test Item Value Reference Range Interpretation Comments Monocytes (test code = Monocytes) 6.3 2.0-12.0 [facility] HospitalAihcjztAQNHSFCUMR3214-45-27 15:40:00 Test Item Value Reference Range Interpretation Comments Lymphocytes (test code = Lymphocytes) 11.6 20.0-40.0 [facility] HospitalFtjmjilZIAHXLJJPH1525-69-66 15:40:00 Test Item Value Reference Range Interpretation Comments RDW (test code = RDW) 13.5 11.5-14.5 [facility] HospitalGbubtlqPAYLKRMVLN3227-06-18 15:40:00 Test Item Value Reference Range Interpretation Comments MCHC (test code = MCHC) 33.2 32.0-36.0 [facility] HospitalUgssepbIOTKIFCQWQ6233-46-23 15:40:00 Test Item Value Reference Range Interpretation Comments MPV (test code = MPV) 8.2 7.4-10.4 [facility] HospitalQydelmhMLXWCTLLMU2669-24-23 15:40:00 Test Item Value Reference Range Interpretation Comments Platelet (test code = Platelet) 294 133-450 [facility] HospitalXcdynirJFXXYSGMJD3998-57-73 15:40:00 Test Item Value Reference Range Interpretation Comments MCV (test code = MCV) 98.9 80.0-98.0 [facility] HospitalLimvfttTGWWTZRLZH7926-95-02 15:40:00 Test Item Value Reference Range Interpretation Comments MCH (test code = MCH) 32.8 pg 27.0-31.0 [facility] HospitalYawfipnSAGHDNNGZU9169-90-69 15:40:00 Test Item Value Reference Range Interpretation Comments RBC (test code = RBC) 3.67 4.20-5.40 [facility] HospitalEgrzjkzGREJUZRACW8142-96-94 15:40:00 Test Item Value Reference Range Interpretation Comments Hgb (test code = Hgb) 12.0 12.0-16.0 [facility] HospitalAbhwdntFAOVSZPFYT8609-66-42 15:40:00 Test Item Value Reference Range Interpretation Comments Hct (test code = Hct) 36.3 36.0-48.0 [facility] HospitalCmekbgzSVNVROULCW1907-31-26 15:40:00 Test Item Value Reference Range Interpretation Comments WBC (test code = WBC) 14.4 3.7-10.4 [facility] AND [id number] 16:45:00 Test Item Value Reference Range Interpretation Comments UA Hyal Cast 3-5 (10/22/14 See_Comment [Automated mes leonel] (test code = UA 11:45 AM) The system w [facility] Hyal Cast) generated this result transmitted ref erence range: <=2. The reference range was not used to int erpret this result as normal/abnormal . [facility] AND [id number] 16:45:00 Test Item Value Reference Range Interpretation Comments UA Urobilinogen (test code = UA 0.2 0.1-1.0 Urobilinogen) [facility] AND [id number] 16:45:00 Test Item Value Reference Range Interpretation Comments UA Nitrite (test code Negative (10/22/14 11:45 = UA Nitrite) AM) [facility] AND [id number] 16:45:00 Test Item Value Reference Range Interpretation Comments UA Bili (test code = Small *ABN*(10/22/14 UA Bili) 11:45 AM) [facility] AND [id number] 16:45:00 Test Item Value Reference Range Interpretation Comments UA Blood (test code = Negative (10/22/14 11:45 UA Blood) AM) [facility] AND [id number] 16:45:00 Test Item Value Reference Range Interpretation Comments UA Ketones (test code Negative *NA*(10/22/14 = UA Ketones) 11:45 AM) [facility] AND [id number] 16:45:00 Test Item Value Reference Range Interpretation Comments UA Turbidity (test code Slight Cloudy = UA Turbidity) (10/22/14 11:45 AM) [facility] AND [id number] 16:45:00 Test Item Value Reference Range Interpretation Comments UA Spec Grav (test code = UA Spec 1.025 1 Grav) [facility] AND [id number] 16:45:00 Test Item Value Reference Range Interpretation Comments UA pH (test code = UA pH) 6.0 1 5.0-8.0 [facility] AND [id number] 16:45:00 Test Item Value Reference Range Interpretation Comments UA Protein (test code = Trace *ABN*(10/22/14 UA Protein) 11:45 AM) [facility] [id number] 16:45:00 Test Item Value Reference Range Interpretation Comments UA Glucose (test code Negative (10/22/14 11:45 = UA Glucose) AM) [facility] [id number] 16:45:00 Test Item Value Reference Range Interpretation Comments UA WBC (test code = UA WBC) 0-2 /HPF [facility] [id number] 16:45:00 Test Item Value Reference Range Interpretation Comments UA RBC (test code = 0-2 /HPF See_Comment [Automa mirna message] The UA RBC) system which ge nerated this result tra nsmitted reference range : <=2. The reference range was not used to interpr et this result as zahra l/abnormal. [facility] [id number] 16:45:00 Test Item Value Reference Range Interpretation Comments UA Bacteria (test code = UA Few /HPF Bacteria) [facility] [id number] 16:45:00 Test Item Value Reference Range Interpretation Comments UA Leuk Est (test Negative (10/22/14 11:45 code = UA Leuk Est) AM) [facility] [id number] 16:45:00 Test Item Value Reference Range Interpretation Comments UA Sq Epi (test code = UA Sq Moderate /LPF Epi) [facility] AND [id number] 16:45:00 Test Item Value Reference Range Interpretation Comments UA Color (test code = Yellow *NA*(10/22/14 UA Color) 11:45 AM) [facility] [id number] 16:45:00 Test Item Value Reference Range Interpretation Comments UA Hyal Cast 3-5 (10/22/14 See_Comment [Automated mes leonel] (test code = UA 11:45 AM) The system w hich Hyal Cast) generated this result transmitted ref erence range: <=2. The reference range was not used to int erpret this result as normal/abnormal . [facility] [id number] 16:45:00 Test Item Value Reference Range Interpretation Comments UA Urobilinogen (test code = UA 0.2 0.1-1.0 Urobilinogen) [facility] [id number] 16:45:00 Test Item Value Reference Range Interpretation Comments UA Nitrite (test code Negative (10/22/14 11:45 = UA Nitrite) AM) [facility] AND [id number] 16:45:00 Test Item Value Reference Range Interpretation Comments UA Bili (test code = Small *ABN*(10/22/14 UA Bili) 11:45 AM) [facility] AND [id number] 16:45:00 Test Item Value Reference Range Interpretation Comments UA Blood (test code = Negative (10/22/14 11:45 UA Blood) AM) [facility] AND [id number] 16:45:00 Test Item Value Reference Range Interpretation Comments UA Ketones (test code Negative *NA*(10/22/14 = UA Ketones) 11:45 AM) [facility] AND [id number] 16:45:00 Test Item Value Reference Range Interpretation Comments UA Turbidity (test code Slight Cloudy = UA Turbidity) (10/22/14 11:45 AM) [facility] AND [id number] 16:45:00 Test Item Value Reference Range Interpretation Comments UA Spec Grav (test code = UA Spec 1.025 1 Grav) [facility] AND [id number] 16:45:00 Test Item Value Reference Range Interpretation Comments UA pH (test code = UA pH) 6.0 1 5.0-8.0 [facility] AND [id number] 16:45:00 Test Item Value Reference Range Interpretation Comments UA Protein (test code = Trace *ABN*(10/22/14 UA Protein) 11:45 AM) [facility] AND [id number] 16:45:00 Test Item Value Reference Range Interpretation Comments UA Glucose (test code Negative (10/22/14 11:45 = UA Glucose) AM) [facility] AND [id number] 16:45:00 Test Item Value Reference Range Interpretation Comments UA WBC (test code = UA WBC) 0-2 /HPF [facility] AND [id number] 16:45:00 Test Item Value Reference Range Interpretation Comments UA RBC (test code = 0-2 /HPF See_Comment [Automa mirna message] The UA RBC) system which ge nerated this result tra nsmitted reference range : <=2. The reference range was not used to interpr et this result as zahra l/abnormal. [facility] [id number] 16:45:00 Test Item Value Reference Range Interpretation Comments UA Bacteria (test code = UA Few /HPF Bacteria) [facility] [id number] 16:45:00 Test Item Value Reference Range Interpretation Comments UA Leuk Est (test Negative (10/22/14 11:45 code = UA Leuk Est) AM) [facility] [facility] [id number] 16:45:00 Test Item Value Reference Range Interpretation Comments UA Sq Epi (test code = UA Sq Moderate /LPF Epi) [facility] [id number] 16:45:00 Test Item Value Reference Range Interpretation Comments UA Color (test code = Yellow *NA*(10/22/14 UA Color) 11:45 AM) [facility] [id number] 16:45:00 Test Item Value Reference Range Interpretation Comments UA Hyal Cast 3-5 (10/22/14 See_Comment [Automated mes leonel] (test code = UA 11:45 AM) [facility] Hy[facility]) generated this result transmitted ref erence range: <=2. The reference range was not used to int erpret this result as normal/abnormal . [facility] [id number] 16:45:00 Test Item Value Reference Range Interpretation Comments UA Urobilinogen (test code = UA 0.2 0.1-1.0 Urobilinogen) [facility] [id number] 16:45:00 Test Item Value Reference Range Interpretation Comments UA Nitrite (test code Negative (10/22/14 11:45 = UA Nitrite) AM) [facility] [id number] 16:45:00 Test Item Value Reference Range Interpretation Comments UA Bili (test code = Small *ABN*(10/22/14 UA Bili) 11:45 AM) [facility] [id number] 16:45:00 Test Item Value Reference Range Interpretation Comments UA Blood (test code = Negative (10/22/14 11:45 UA Blood) AM) [facility] [id number] 16:45:00 Test Item Value Reference Range Interpretation Comments UA Ketones (test code Negative *NA*(10/22/14 = UA Ketones) 11:45 AM) [facility] AND [id number] 16:45:00 Test Item Value Reference Range Interpretation Comments UA Turbidity (test code Slight Cloudy = UA Turbidity) (10/22/14 11:45 AM) [facility] AND [id number] 16:45:00 Test Item Value Reference Range Interpretation Comments UA Spec Grav (test code = UA Spec 1.025 1 Grav) [facility] AND [id number] 16:45:00 Test Item Value Reference Range Interpretation Comments UA pH (test code = UA pH) 6.0 1 5.0-8.0 [facility] AND [id number] 16:45:00 Test Item Value Reference Range Interpretation Comments UA Protein (test code = Trace *ABN*(10/22/14 UA Protein) 11:45 AM) [facility] AND [id number] 16:45:00 Test Item Value Reference Range Interpretation Comments UA Glucose (test code Negative (10/22/14 11:45 = UA Glucose) AM) [facility] AND [id number] 16:45:00 Test Item Value Reference Range Interpretation Comments UA WBC (test code = UA WBC) 0-2 /HPF [facility] AND [id number] 16:45:00 Test Item Value Reference Range Interpretation Comments UA RBC (test code = 0-2 /HPF See_Comment [Automa mirna message] The UA RBC) system which ge nerated this result tra nsmitted reference range : <=2. The reference range was not used to interpr et this result as zahra l/abnormal. [facility] AND [id number] 16:45:00 Test Item Value Reference Range Interpretation Comments UA Bacteria (test code = UA Few /HPF Bacteria) [facility] AND [id number] 16:45:00 Test Item Value Reference Range Interpretation Comments UA Leuk Est (test Negative (10/22/14 11:45 code = UA Leuk Est) AM) [facility] AND [id number] 16:45:00 Test Item Value Reference Range Interpretation Comments UA Sq Epi (test code = UA Sq Moderate /LPF Epi) [facility] AND [id number] 16:45:00 Test Item Value Reference Range Interpretation Comments UA Color (test code = Yellow *NA*(10/22/14 UA Color) 11:45 AM) [facility] [id number] 16:45:00 Test Item Value Reference Range Interpretation Comments UA Hyal Cast 3-5 (10/22/14 See_Comment [Automated mes leonel] (test code = UA 11:45 AM) The system w [facility] Hyal Cast) generated this result transmitted ref erence range: <=2. The reference range was not used to int erpret this result as normal/abnormal . [facility] [id number] 16:45:00 Test Item Value Reference Range Interpretation Comments UA Urobilinogen (test code = UA 0.2 0.1-1.0 Urobilinogen) [facility] [id number] 16:45:00 Test Item Value Reference Range Interpretation Comments UA Nitrite (test code Negative (10/22/14 11:45 = UA Nitrite) AM) [facility] [id number] 16:45:00 Test Item Value Reference Range Interpretation Comments UA Bili (test code = Small *ABN*(10/22/14 UA Bili) 11:45 AM) [facility] [id number] 16:45:00 Test Item Value Reference Range Interpretation Comments UA Blood (test code = Negative (10/22/14 11:45 UA Blood) AM) [facility] [id number] 16:45:00 Test Item Value Reference Range Interpretation Comments UA Ketones (test code Negative *NA*(10/22/14 = UA Ketones) 11:45 AM) [facility] [id number] 16:45:00 Test Item Value Reference Range Interpretation Comments UA Turbidity (test code Slight Cloudy = UA Turbidity) (10/22/14 11:45 AM) [facility] [id number] 16:45:00 Test Item Value Reference Range Interpretation Comments UA Spec Grav (test code = UA Spec 1.025 [address]) [facility] [id number] 16:45:00 Test Item Value Reference Range Interpretation Comments UA pH (test code = UA pH) 6.0 1 5.0-8.0 [facility] [id number] 16:45:00 Test Item Value Reference Range Interpretation Comments UA Protein (test code = Trace *ABN*(10/22/14 UA Protein) 11:45 AM) [facility] [id number] 16:45:00 Test Item Value Reference Range Interpretation Comments UA Glucose (test code Negative (10/22/14 11:45 = UA Glucose) AM) [facility] [id number] 16:45:00 Test Item Value Reference Range Interpretation Comments UA WBC (test code = UA WBC) 0-2 /HPF [facility] [id number] 16:45:00 Test Item Value Reference Range Interpretation Comments UA RBC (test code = 0-2 /HPF See_Comment [Automa mirna message] The UA RBC) system which ge nerated this result tra nsmitted reference range : <=2. The reference range was not used to interpr et this result as zahra l/abnormal. [facility] [id number] 16:45:00 Test Item Value Reference Range Interpretation Comments UA Bacteria (test code = UA Few /HPF Bacteria) [facility] [id number] 16:45:00 Test Item Value Reference Range Interpretation Comments UA Leuk Est (test Negative (10/22/14 11:45 code = UA Leuk Est) AM) [facility] [id number] 16:45:00 Test Item Value Reference Range Interpretation Comments UA Sq Epi (test code = UA Sq Moderate /LPF Epi) [facility] AND [id number] 16:45:00 Test Item Value Reference Range Interpretation Comments UA Color (test code = Yellow *NA*(10/22/14 UA Color) 11:45 AM) [facility] AND [id number] 16:45:00 Test Item Value Reference Range Interpretation Comments UA Hyal Cast 3-5 (10/22/14 See_Comment [Automated mes leonel] (test code = UA 11:45 AM) The system w hich Hyal Cast) generated this result transmitted ref erence range: <=2. The reference range was not used to int erpret this result as normal/abnormal . [facility] [id number] 16:45:00 Test Item Value Reference Range Interpretation Comments UA Urobilinogen (test code = UA 0.2 0.1-1.0 Urobilinogen) [facility] AND [id number] 16:45:00 Test Item Value Reference Range Interpretation Comments UA Nitrite (test code Negative (10/22/14 11:45 = UA Nitrite) AM) [facility] AND [id number] 16:45:00 Test Item Value Reference Range Interpretation Comments UA Bili (test code = Small *ABN*(10/22/14 UA Bili) 11:45 AM) [facility] AND [id number] 16:45:00 Test Item Value Reference Range Interpretation Comments UA Blood (test code = Negative (10/22/14 11:45 UA Blood) AM) [facility] AND [id number] 16:45:00 Test Item Value Reference Range Interpretation Comments UA Ketones (test code Negative *NA*(10/22/14 = UA Ketones) 11:45 AM) [facility] AND [id number] 16:45:00 Test Item Value Reference Range Interpretation Comments UA Turbidity (test code Slight Cloudy = UA Turbidity) (10/22/14 11:45 AM) [facility] AND [id number] 16:45:00 Test Item Value Reference Range Interpretation Comments UA Spec Grav (test code = UA Spec 1.025 1 Grav) [facility] AND [id number] 16:45:00 Test Item Value Reference Range Interpretation Comments UA pH (test code = UA pH) 6.0 1 5.0-8.0 [facility] AND [id number] 16:45:00 Test Item Value Reference Range Interpretation Comments UA Protein (test code = Trace *ABN*(10/22/14 UA Protein) 11:45 AM) [facility] AND [id number] 16:45:00 Test Item Value Reference Range Interpretation Comments UA Glucose (test code Negative (10/22/14 11:45 = UA Glucose) AM) [facility] AND [id number] 16:45:00 Test Item Value Reference Range Interpretation Comments UA WBC (test code = UA WBC) 0-2 /HPF [facility] AND [id number] 16:45:00 Test Item Value Reference Range Interpretation Comments UA RBC (test code = 0-2 /HPF See_Comment [Automa mirna message] The UA RBC) system which ge nerated this result tra nsmitted reference range : <=2. The reference range was not used to interpr et this result as zahra l/abnormal. [facility] [id number] 16:45:00 Test Item Value Reference Range Interpretation Comments UA Bacteria (test code = UA Few /HPF Bacteria) [facility] [id number] 16:45:00 Test Item Value Reference Range Interpretation Comments UA Leuk Est (test Negative (10/22/14 11:45 code = UA Leuk Est) AM) [facility] [id number] 16:45:00 Test Item Value Reference Range Interpretation Comments UA Sq Epi (test code = UA Sq Moderate /LPF Epi) [facility] [id number] 16:45:00 Test Item Value Reference Range Interpretation Comments UA Color (test code = Yellow *NA*(10/22/14 UA Color) 11:45 AM) [facility] [id number] 16:45:00 Test Item Value Reference Range Interpretation Comments UA Hyal Cast 3-5 (10/22/14 See_Comment [Automated mes leonel] (test code = UA 11:45 AM) The system w hich Hyal Cast) generated this result transmitted ref erence range: <=2. The reference range was not used to int erpret this result as normal/abnormal . [facility] [id number] 16:45:00 Test Item Value Reference Range Interpretation Comments UA Urobilinogen (test code = UA 0.2 0.1-1.0 Urobilinogen) [facility] [id number] 16:45:00 Test Item Value Reference Range Interpretation Comments UA Nitrite (test code Negative (10/22/14 11:45 = UA Nitrite) AM) [facility] [id number] 16:45:00 Test Item Value Reference Range Interpretation Comments UA Bili (test code = Small *ABN*(10/22/14 UA Bili) 11:45 AM) [facility] [id number] 16:45:00 Test Item Value Reference Range Interpretation Comments UA Blood (test code = Negative (10/22/14 11:45 UA Blood) AM) [facility] AND [id number] 16:45:00 Test Item Value Reference Range Interpretation Comments UA Ketones (test code Negative *NA*(10/22/14 = UA Ketones) 11:45 AM) [facility] AND [id number] 16:45:00 Test Item Value Reference Range Interpretation Comments UA Turbidity (test code Slight Cloudy = UA Turbidity) (10/22/14 11:45 AM) [facility] AND [id number] 16:45:00 Test Item Value Reference Range Interpretation Comments UA Spec Grav (test code = UA Spec 1.025 1 Grav) [facility] AND [id number] 16:45:00 Test Item Value Reference Range Interpretation Comments UA pH (test code = UA pH) 6.0 1 5.0-8.0 [facility] AND [id number] 16:45:00 Test Item Value Reference Range Interpretation Comments UA Protein (test code = Trace *ABN*(10/22/14 UA Protein) 11:45 AM) [facility] AND [id number] 16:45:00 Test Item Value Reference Range Interpretation Comments UA Glucose (test code Negative (10/22/14 11:45 = UA Glucose) AM) [facility] AND [id number] 16:45:00 Test Item Value Reference Range Interpretation Comments UA WBC (test code = UA WBC) 0-2 /HPF [facility] AND [id number] 16:45:00 Test Item Value Reference Range Interpretation Comments UA RBC (test code = 0-2 /HPF See_Comment [Automa mirna message] The UA RBC) system which ge nerated this result tra nsmitted reference range : <=2. The reference range was not used to interpr et this result as zahra l/abnormal. [facility] AND [id number] 16:45:00 Test Item Value Reference Range Interpretation Comments UA Bacteria (test code = UA Few /HPF Bacteria) [facility] AND [id number] 16:45:00 Test Item Value Reference Range Interpretation Comments UA Leuk Est (test Negative (10/22/14 11:45 code = UA Leuk Est) AM) [facility] [id number] 16:45:00 Test Item Value Reference Range Interpretation Comments UA Sq Epi (test code = UA Sq Moderate /LPF Epi) [facility] [id number] 16:45:00 Test Item Value Reference Range Interpretation Comments UA Color (test code = Yellow *NA*(10/22/14 UA Color) 11:45 AM) [facility] [id number] 16:45:00 Test Item Value Reference Range Interpretation Comments UA Hyal Cast (test 3-5 (10/22/14 11:45 AM) <=2 code = UA Hyal Cast) [facility] AND [id number] 16:45:00 Test Item Value Reference Range Interpretation Comments UA Urobilinogen (test code = UA 0.2 0.1-1.0 Urobilinogen) [facility] AND [id number] 16:45:00 Test Item Value Reference Range Interpretation Comments UA Nitrite (test code Negative (10/22/14 11:45 = UA Nitrite) AM) [facility] AND [id number] 16:45:00 Test Item Value Reference Range Interpretation Comments UA Bili (test code = Small *ABN*(10/22/14 UA Bili) 11:45 AM) [facility] AND [id number] 16:45:00 Test Item Value Reference Range Interpretation Comments UA Blood (test code = Negative (10/22/14 11:45 UA Blood) AM) [facility] AND [id number] 16:45:00 Test Item Value Reference Range Interpretation Comments UA Ketones (test code Negative *NA*(10/22/14 = UA Ketones) 11:45 AM) [facility] AND [id number] 16:45:00 Test Item Value Reference Range Interpretation Comments UA Turbidity (test code Slight Cloudy = UA Turbidity) (10/22/14 11:45 AM) [facility] [id number] 16:45:00 Test Item Value Reference Range Interpretation Comments UA Spec Grav (test code = UA Spec 1.025 1 Grav) [facility] AND [id number] 16:45:00 Test Item Value Reference Range Interpretation Comments UA pH (test code = UA pH) 6.0 1 5.0-8.0 [facility] AND [id number] 16:45:00 Test Item Value Reference Range Interpretation Comments UA Protein (test code = Trace *ABN*(10/22/14 UA Protein) 11:45 AM) [facility] AND [id number] 16:45:00 Test Item Value Reference Range Interpretation Comments UA Glucose (test code Negative (10/22/14 11:45 = UA Glucose) AM) [facility] AND [id number] 16:45:00 Test Item Value Reference Range Interpretation Comments UA WBC (test code = UA WBC) 0-2 /HPF [facility] AND [id number] 16:45:00 Test Item Value Reference Range Interpretation Comments UA RBC (test code = UA RBC) 0-2 /HPF <=2 [facility] AND [id number] 16:45:00 Test Item Value Reference Range Interpretation Comments UA Bacteria (test code = UA Few /HPF Bacteria) [facility] AND [id number] 16:45:00 Test Item Value Reference Range Interpretation Comments UA Leuk Est (test Negative (10/22/14 11:45 code = UA Leuk Est) AM) [facility] AND [id number] 16:45:00 Test Item Value Reference Range Interpretation Comments UA Sq Epi (test code = UA Sq Moderate /LPF Epi) [facility] AND [id number] 16:45:00 Test Item Value Reference Range Interpretation Comments UA Color (test code = Yellow *NA*(10/22/14 UA Color) 11:45 AM) [facility] [id number] 16:33:00 Test Item Value Reference Range Interpretation Comments CK MB Index (test 1.2 See_Comment [Automate d message] The code = CK MB Index) system w [facility] generated this result transmit mirna reference range : <=2.5. The reference range was not used to interpr et this result as zahra l/abnormal. [facility] [id number] 16:33:00 Test Item Value Reference Range Interpretation Comments CK MB (test code = CK MB) 0.6 0.5-3.[address] [facility] [id number] 16:33:00 Test Item Value Reference Range Interpretation Comments Troponin-I (test code no gt See_Comment [Auto mated message] The = Troponin-I) system which g enerated this result transmit mirna reference range : <=0.40. The reference r chuck was not used to interpr et this result as zahra l/abnormal. [facility] [id number] 16:33:00 Test Item Value Reference Range Interpretation Comments Total CK (test code = Total CK) 50 12-[address] [facility] [id number] 16:33:00 Test Item Value Reference Range Interpretation Comments BNP (test code = BNP) [address] [facility] [id number] 16:33:00 Test Item Value Reference Range Interpretation Comments eGFR (test code = eGFR) [address] [facility] [id number] 16:33:00 Test Item Value Reference Range Interpretation Comments Globulin (test code = Globulin) 3.1 2.0-4.[address] [facility] [id number] 16:33:00 Test Item Value Reference Range Interpretation Comments A/G Ratio (test code = A/G Ratio) 1.1 0.7-1.[address] [facility] [id number] 16:33:00 Test Item Value Reference Range Interpretation Comments BUN (test code = BUN) 8 7-[address] [facility] [id number] 16:33:00 Test Item Value Reference Range Interpretation Comments Glucose Lvl (test code = Glucose Lvl) 103 70-[address] [facility] [id number] 16:33:00 Test Item Value Reference Range Interpretation Comments Sodium Lvl (test code = Sodium Lvl) 141 135-[address] [facility] [id number] 16:33:00 Test Item Value Reference Range Interpretation Comments Creatinine Lvl (test code = Creatinine 0.9 0.5-1.4 Lvl) [facility] [id number] 16:33:00 Test Item Value Reference Range Interpretation Comments Potassium Lvl (test code = Potassium 3.5 3.5-5.1 Lvl) [facility] [id number] 16:33:00 Test Item Value Reference Range Interpretation Comments CO2 (test code = CO2) 27 24-[address] [facility] [id number] 16:33:00 Test Item Value Reference Range Interpretation Comments Chloride Lvl (test code = Chloride Lvl) 109 95-109 [facility]2015-04-27 16:33:00 Test Item Value Reference Range Interpretation Comments Total Protein (test code = Total 6.4 6.4-8.4 Protein) [facility]2015-04-27 16:33:00 Test Item Value Reference Range Interpretation Comments ALT (test code = ALT) 13 See_Comment [Auto mated message] The system which ge nerated this result transmit mirna reference range : <=65. The reference range was not used to interpr et this result as zahra l/abnormal. [facility]2015-04-27 16:33:00 Test Item Value Reference Range Interpretation Comments AST (test code = AST) 17 See_Comment [Auto mated message] The system which ge nerated this result transmit mirna reference range : <=37. The reference range was not used to interpr et this result as zahra l/abnormal. [facility]2015-04-27 16:33:00 Test Item Value Reference Range Interpretation Comments Alk Phos (test code = Alk Phos) 46 39-136 [facility]2015-04-27 16:33:00 Test Item Value Reference Range Interpretation Comments Calcium Lvl (test code = Calcium Lvl) 8.3 8.5-10.5 [facility]2015-04-27 16:33:00 Test Item Value Reference Range Interpretation Comments B/C Ratio (test code = B/C Ratio) 9 6-25 [facility]2015-04-27 16:33:00 Test Item Value Reference Range Interpretation Comments AGAP (test code = AGAP) 8.5 10.0-20.0 [facility]2015-04-27 16:33:00 Test Item Value Reference Range Interpretation Comments Albumin Lvl (test code = Albumin Lvl) 3.3 3.5-5.0 [facility]2015-04-27 16:33:00 Test Item Value Reference Range Interpretation Comments Bili Total (test code = Bili Total) 0.3 0.2-1.3 [id number] 16:33:00 Test Item Value Reference Range Interpretation Comments Segs (test code = Segs) 63.6 45.0-75.0 [facility] Hos[id number] 16:33:00 Test Item Value Reference Range Interpretation Comments Lymphocytes (test code = Lymphocytes) 22.9 20.0-40.0 [facility] [id number] 16:33:00 Test Item Value Reference Range Interpretation Comments Monocytes (test code = Monocytes) 8.2 2.0-12.0 [place] [id number] 16:33:00 Test Item Value Reference Range Interpretation Comments Eosinophils (test code = 4.2 See_Comment [A utomated message] The Eosinophils) system which ge nerated this result tra nsmitted reference range : <=4.0. The reference r chuck was not used to int erpret this result as normal/abnormal . [facility] [id number] 16:33:00 Test Item Value Reference Range Interpretation Comments Basophils (test code = 1.1 See_Comment [Aut omated message] The Basophils) system which ge nerated this result tra nsmitted reference range : <=1.0. The reference r chuck was not used to int erpret this result as normal/abnormal . [facility] H[id number] 16:33:00 Test Item Value Reference Range Interpretation Comments Segs-Bands # (test code = Segs-Bands #) 4.5 1.5-8.1 [facility] [id number] 16:33:00 Test Item Value Reference Range Interpretation Comments Lymphocytes # (test code = Lymphocytes 1.6 1.0-5.5 #) [facility] Hospit[id number] 16:33:00 Test Item Value Reference Range Interpretation Comments Monocytes # (test code 0.6 See_Comment [Aut omated message] The = Monocytes #) system which generated this result tra nsmitted reference range : <=0.8. The reference r chuck was not used to int erpret this result as normal/abnormal . [facility] HospitalDmgwhchUVEQSEYSJL2724-72-33 16:33:00 Test Item Value Reference Range Interpretation Comments Basophils # (test code 0.1 See_Comment [Aut omated message] The = Basophils #) system which generated this result tra nsmitted reference range : <=0.2. The reference r chuck was not used to int erpret this result as normal/abnormal . [facility] HospitalYcimaunPFBAGEYOYG2105-77-64 16:33:00 Test Item Value Reference Range Interpretation Comments Eosinophils # (test code 0.3 See_Comment [A utomated message] The = Eosinophils #) system whic h generated this result tra nsmitted reference range : <=0.5. The reference r chuck was not used to int erpret this result as normal/abnormal . [facility] HospitalHdktmmvCQPIMFJEQO9340-44-00 16:33:00 Test Item Value Reference Range Interpretation Comments MCH (test code = MCH) 32.3 pg 27.0-31.0 [facility] HospitalLfoxgrqLRTSPZUUAG5043-21-20 16:33:00 Test Item Value Reference Range Interpretation Comments MCHC (test code = MCHC) 33.5 32.0-36.0 [facility] HospitalIhnckacBCJTKPNSEJ6051-43-95 16:33:00 Test Item Value Reference Range Interpretation Comments RDW (test code = RDW) 14.9 11.5-14.5 [facility] HospitalCkzkotkUFAWQQOXKO9949-54-27 16:33:00 Test Item Value Reference Range Interpretation Comments Platelet (test code = Platelet) 250 133-450 [facility] HospitalOimsjknIPXDPULGIC0004-44-71 16:33:00 Test Item Value Reference Range Interpretation Comments MPV (test code = MPV) 7.1 7.4-10.4 [facility] HospitalCbvqdeqFCTNBEFXNX8154-89-31 16:33:00 Test Item Value Reference Range Interpretation Comments RBC (test code = RBC) 2.92 4.20-5.40 [facility] HospitalUgbhchdVMSVGUXNBV2819-91-22 16:33:00 Test Item Value Reference Range Interpretation Comments WBC (test code = WBC) 7.1 3.7-10.4 [facility] HospitalCsznjmgIDMAETMRUW6055-83-31 16:33:00 Test Item Value Reference Range Interpretation Comments MCV (test code = MCV) 96.4 80.0-98.0 [facility] HospitalSqslumwTKFGCRAJYN0886-48-68 16:33:00 Test Item Value Reference Range Interpretation Comments Hgb (test code = Hgb) 9.4 12.0-16.0 [facility] HospitalLwoeanyNUMBVVGIUD2653-77-95 16:33:00 Test Item Value Reference Range Interpretation Comments Hct (test code = Hct) 28.2 36.0-48.0 [facility]AcooxqySRKEDVKAUY6306-61-99 16:33:00 Test Item Value Reference Range Interpretation Comments CDC HIV 4th GEN (test Negative (10/22/14 11:33 code = CDC HIV 4th AM) GEN) [facility] [id number] 16:33:00 Test Item Value Reference Range Interpretation Comments Naylor-Hep C Ab (test Negative *NA*(10/22/14 code = Naylor-Hep C 11:33 AM) Ab) [facility] [employer] [id number] 16:33:00 Test Item Value Reference Range Interpretation Comments CK MB Index (test 1.2 See_Comment [Automate d message] The code = CK MB Index) system w [facility] generated this result transmit mirna reference range : <=2.5. The reference range was not used to interpr et this result as zahra l/abnormal. [facility] [employer]2015-04-27 16:33:00 Test Item Value Reference Range Interpretation Comments CK MB (test code = CK MB) 0.6 0.5-3.6 [facility] [employer] [id number] 16:33:00 Test Item Value Reference Range Interpretation Comments Troponin-I (test code no gt See_Comment [Auto mated message] The = Troponin-I) system which g enerated this result transmit mirna reference range : <=0.40. The reference r chuck was not used to interpr et this result as zahra l/abnormal. [facility] [employer]2015-04-27 16:33:00 Test Item Value Reference Range Interpretation Comments Total CK (test code = Total CK) 50 12-191 [facility] [employer] [id number] 16:33:00 Test Item Value Reference Range Interpretation Comments BNP (test code = BNP) 180 [facility] [id number] 16:33:00 Test Item Value Reference Range Interpretation Comments eGFR (test code = eGFR) 78 [facility] [id number] 16:33:00 Test Item Value Reference Range Interpretation Comments Globulin (test code = Globulin) 3.1 2.0-4.0 [facility] [employer] [id number] 16:33:00 Test Item Value Reference Range Interpretation Comments A/G Ratio (test code = A/G Ratio) 1.1 0.7-1.6 [facility]annCHEM [id number] 16:33:00 Test Item Value Reference Range Interpretation Comments BUN (test code = BUN) 8 7-22 [facility]2015-04-27 16:33:00 Test Item Value Reference Range Interpretation Comments Glucose Lvl (test code = Glucose Lvl) 103 70-99 [facility]2015-04-27 16:33:00 Test Item Value Reference Range Interpretation Comments Sodium Lvl (test code = Sodium Lvl) 141 135-145 [facility]2015-04-27 16:33:00 Test Item Value Reference Range Interpretation Comments Creatinine Lvl (test code = Creatinine 0.9 0.5-1.4 Lvl) [facility]2015-04-27 16:33:00 Test Item Value Reference Range Interpretation Comments Potassium Lvl (test code = Potassium 3.5 3.5-5.1 Lvl) [facility]2015-04-27 16:33:00 Test Item Value Reference Range Interpretation Comments CO2 (test code = CO2) 27 24-32 [facility]2015-04-27 16:33:00 Test Item Value Reference Range Interpretation Comments Chloride Lvl (test code = Chloride Lvl) 109 95-109 [facility]2015-04-27 16:33:00 Test Item Value Reference Range Interpretation Comments Total Protein (test code = Total 6.4 6.4-8.4 Protein) [facility]2015-04-27 16:33:00 Test Item Value Reference Range Interpretation Comments ALT (test code = ALT) 13 See_Comment [Auto mated message] The system which ge nerated this result transmit mirna reference range : <=65. The reference range was not used to interpr et this result as zahra l/abnormal. [facility]2015-04-27 16:33:00 Test Item Value Reference Range Interpretation Comments AST (test code = AST) 17 See_Comment [Auto mated message] The system which ge nerated this result transmit mirna reference range : <=37. The reference range was not used to interpr et this result as zahra l/abnormal. [facility]2015-04-27 16:33:00 Test Item Value Reference Range Interpretation Comments Alk Phos (test code = Alk Phos) 46 39-136 [facility]2015-04-27 16:33:00 Test Item Value Reference Range Interpretation Comments Calcium Lvl (test code = Calcium Lvl) 8.3 8.5-10.5 [facility]2015-04-27 16:33:00 Test Item Value Reference Range Interpretation Comments B/C Ratio (test code = B/C Ratio) 9 6-25 [facility]2015-04-27 16:33:00 Test Item Value Reference Range Interpretation Comments AGAP (test code = AGAP) 8.5 10.0-20.0 [facility]2015-04-27 16:33:00 Test Item Value Reference Range Interpretation Comments Albumin Lvl (test code = Albumin Lvl) 3.3 3.5-5.0 [facility]2015-04-27 16:33:00 Test Item Value Reference Range Interpretation Comments Bili Total (test code = Bili Total) 0.3 0.2-1.3 [facility] HospitalRhpezvtBKJAOCDBGA4318-17-13 16:33:00 Test Item Value Reference Range Interpretation Comments Segs (test code = Segs) 63.6 45.0-75.0 [facility] HospitalHjnzgfeBZDPUIRBSE6629-62-06 16:33:00 Test Item Value Reference Range Interpretation Comments Lymphocytes (test code = Lymphocytes) 22.9 20.0-40.0 [facility] HospitalIedmrviBWXZUERHPC8933-29-38 16:33:00 Test Item Value Reference Range Interpretation Comments Monocytes (test code = Monocytes) 8.2 2.0-12.0 [facility] HospitalYzpbwjiZRLHTRSPVH1353-12-68 16:33:00 Test Item Value Reference Range Interpretation Comments Eosinophils (test code = 4.2 See_Comment [A utomated message] The Eosinophils) system which ge nerated this result tra nsmitted reference range : <=4.0. The reference r chuck was not used to int erpret this result as normal/abnormal . [facility] HospitalEvakymdGOKOFEJHUF9309-89-01 16:33:00 Test Item Value Reference Range Interpretation Comments Basophils (test code = 1.1 See_Comment [Aut omated message] The Basophils) system which ge nerated this result tra nsmitted reference range : <=1.0. The reference r chuck was not used to int erpret this result as normal/abnormal . [facility] HospitalMeyxdztEFHQSOSMQT1458-40-50 16:33:00 Test Item Value Reference Range Interpretation Comments Segs-Bands # (test code = Segs-Bands #) 4.5 1.5-8.1 [facility] HospitalHtehjeeXOTHMIUEUA9941-43-26 16:33:00 Test Item Value Reference Range Interpretation Comments Lymphocytes # (test code = Lymphocytes 1.6 1.0-5.5 #) [facility] HospitalEzoncbhVSGLSVDYDV7668-02-19 16:33:00 Test Item Value Reference Range Interpretation Comments Monocytes # (test code 0.6 See_Comment [Aut omated message] The = Monocytes #) system which generated this result tra nsmitted reference range : <=0.8. The reference r chuck was not used to int erpret this result as normal/abnormal . [facility] HospitalRpqnkycMUMYBZBXZO8535-81-77 16:33:00 Test Item Value Reference Range Interpretation Comments Basophils # (test code 0.1 See_Comment [Aut omated message] The = Basophils #) system which generated this result tra nsmitted reference range : <=0.2. The reference r chuck was not used to int erpret this result as normal/abnormal . [facility] HospitalFbrjfpwBGXARTGDKZ8355-93-81 16:33:00 Test Item Value Reference Range Interpretation Comments Eosinophils # (test code 0.3 See_Comment [A utomated message] The = Eosinophils #) system whic h generated this result tra nsmitted reference range : <=0.5. The reference r chuck was not used to int erpret this result as normal/abnormal . [facility] HospitalHnscxpnKWJPTBMXTY3780-60-95 16:33:00 Test Item Value Reference Range Interpretation Comments MCH (test code = MCH) 32.3 pg 27.0-31.0 [facility] HospitalEjklnwwZLQNSBGCPA5554-73-20 16:33:00 Test Item Value Reference Range Interpretation Comments MCHC (test code = MCHC) 33.5 32.0-36.0 [facility] HospitalQejhgmaZQQMBMYDZX2913-45-21 16:33:00 Test Item Value Reference Range Interpretation Comments RDW (test code = RDW) 14.9 11.5-14.5 [facility] HospitalNrhiegiOYCXKJHQFN7097-51-36 16:33:00 Test Item Value Reference Range Interpretation Comments Platelet (test code = Platelet) 250 133-450 [facility] HospitalPofhezxFZAUPBAJBC1232-58-04 16:33:00 Test Item Value Reference Range Interpretation Comments MPV (test code = MPV) 7.1 7.4-10.[address] [facility]MvfnxhqTPFCTQTCRE8145-23-53 16:33:00 Test Item Value Reference Range Interpretation Comments RBC (test code = RBC) 2.92 4.20-5.[address] [facility] HospitalCziqpwgATHAAFSZHV7600-44-56 16:33:00 Test Item Value Reference Range Interpretation Comments WBC (test code = WBC) 7.1 3.7-10.[address] [facility] HospitalDgilfrpGOMDAHLPAK4416-75-69 16:33:00 Test Item Value Reference Range Interpretation Comments MCV (test code = MCV) 96.4 80.0-98.[address] [facility] HospitalJhyyfdxOUCHYNMKJX9601-72-58 16:33:00 Test Item Value Reference Range Interpretation Comments Hgb (test code = Hgb) 9.4 12.0-16.0 [facility] HospitalHjmxupmELKMIAIUKK8067-02-56 16:33:00 Test Item Value Reference Range Interpretation Comments Hct (test code = Hct) 28.2 36.0-48.0 [facility]IjmgkmcVHGOHQIYLI2741-02-13 16:33:00 Test Item Value Reference Range Interpretation Comments CDC HIV 4th GEN (test Negative (10/22/14 11:33 code = CDC HIV 4th AM) GEN) [facility]landNyvlyvzCGIABKEJEP2974-41-31 16:33:00 Test Item Value Reference Range Interpretation Comments Naylor-Hep C Ab (test Negative *NA*(10/22/14 code = Naylor-Hep C 11:33 AM) Ab) [facility]landCARAltobeamAC [id number] 16:33:00 Test Item Value Reference Range Interpretation Comments CK MB Index (test 1.2 See_Comment [Automate d message] The code = CK MB Index) system w [facility] generated this result transmit mirna reference range : <=2.5. The reference range was not used to interpr et this result as zahra l/abnormal. [facility]landCARDIAC [id number] 16:33:00 Test Item Value Reference Range Interpretation Comments CK MB (test code = CK MB) 0.6 0.5-3.6 [facility] [id number] 16:33:00 Test Item Value Reference Range Interpretation Comments Troponin-I (test code no gt See_Comment [Auto mated message] The = Troponin-I) system which g enerated this result transmit mirna reference range : <=0.40. The reference r chuck was not used to interpr et this result as zahra l/abnormal. [facility] [id number] 16:33:00 Test Item Value Reference Range Interpretation Comments Total CK (test code = Total CK) 50 12-[address] [facility] BPVVZQO0905-76-31 16:33:00 Test Item Value Reference Range Interpretation Comments BNP (test code = BNP) [address] [facility] [id number] 16:33:00 Test Item Value Reference Range Interpretation Comments eGFR (test code = eGFR) [address] [facility] [id number] 16:33:00 Test Item Value Reference Range Interpretation Comments Globulin (test code = Globulin) 3.1 2.0-4.[address] [facility] [id number] 16:33:00 Test Item Value Reference Range Interpretation Comments A/G Ratio (test code = A/G Ratio) 1.1 0.7-1.[address] [facility] [id number] 16:33:00 Test Item Value Reference Range Interpretation Comments BUN (test code = BUN) 8 7-[address] [facility] [id number] 16:33:00 Test Item Value Reference Range Interpretation Comments Glucose Lvl (test code = Glucose Lvl) 103 70-[address] [facility] [id number] 16:33:00 Test Item Value Reference Range Interpretation Comments Sodium Lvl (test code = Sodium Lvl) 141 135-[address] [facility] [id number] 16:33:00 Test Item Value Reference Range Interpretation Comments Creatinine Lvl (test code = Creatinine 0.9 0.5-1.4 Lvl) [facility] [id number] 16:33:00 Test Item Value Reference Range Interpretation Comments Potassium Lvl (test code = Potassium 3.5 3.5-5.1 Lvl) [facility] [id number] 16:33:00 Test Item Value Reference Range Interpretation Comments CO2 (test code = CO2) 27 24-[address] [facility] [id number] 16:33:00 Test Item Value Reference Range Interpretation Comments Chloride Lvl (test code = Chloride Lvl) 109 95-109 [facility]2015-04-27 16:33:00 Test Item Value Reference Range Interpretation Comments Total Protein (test code = Total 6.4 6.4-8.4 Protein) [facility]2015-04-27 16:33:00 Test Item Value Reference Range Interpretation Comments ALT (test code = ALT) 13 See_Comment [Auto mated message] The system which ge nerated this result transmit mirna reference range : <=65. The reference range was not used to interpr et this result as zahra l/abnormal. [facility]2015-04-27 16:33:00 Test Item Value Reference Range Interpretation Comments AST (test code = AST) 17 See_Comment [Auto mated message] The system which ge nerated this result transmit mirna reference range : <=37. The reference range was not used to interpr et this result as zahra l/abnormal. [facility]2015-04-27 16:33:00 Test Item Value Reference Range Interpretation Comments Alk Phos (test code = Alk Phos) 46 39-136 [facility]2015-04-27 16:33:00 Test Item Value Reference Range Interpretation Comments Calcium Lvl (test code = Calcium Lvl) 8.3 8.5-10.5 [facility]2015-04-27 16:33:00 Test Item Value Reference Range Interpretation Comments B/C Ratio (test code = B/C Ratio) 9 6-25 [facility]2015-04-27 16:33:00 Test Item Value Reference Range Interpretation Comments AGAP (test code = AGAP) 8.5 10.0-20.0 [facility]2015-04-27 16:33:00 Test Item Value Reference Range Interpretation Comments Albumin Lvl (test code = Albumin Lvl) 3.3 3.5-5.0 [facility]2015-04-27 16:33:00 Test Item Value Reference Range Interpretation Comments Bili Total (test code = Bili Total) 0.3 0.2-1.3 [facility] HospitalRaodyklBZORFMEFPR6354-03-89 16:33:00 Test Item Value Reference Range Interpretation Comments Segs (test code = Segs) 63.6 45.0-75.0 [facility] HospitalJvhzovvTQXZEROBLF6154-64-33 16:33:00 Test Item Value Reference Range Interpretation Comments Lymphocytes (test code = Lymphocytes) 22.9 20.0-40.0 [facility] HospitalAoteitxDBEWLJPOGI7862-16-43 16:33:00 Test Item Value Reference Range Interpretation Comments Monocytes (test code = Monocytes) 8.2 2.0-12.0 [facility] HospitalUyakkqdTAZWFMNOWR7892-30-41 16:33:00 Test Item Value Reference Range Interpretation Comments Eosinophils (test code = 4.2 See_Comment [A utomated message] The Eosinophils) system which ge nerated this result tra nsmitted reference range : <=4.0. The reference r chuck was not used to int erpret this result as normal/abnormal . [facility] HospitalKeqquhyLSEBMYZMOE1560-78-23 16:33:00 Test Item Value Reference Range Interpretation Comments Basophils (test code = 1.1 See_Comment [Aut omated message] The Basophils) system which ge nerated this result tra nsmitted reference range : <=1.0. The reference r chuck was not used to int erpret this result as normal/abnormal . [facility] HospitalMieybosKLPOHUGBZV3385-99-25 16:33:00 Test Item Value Reference Range Interpretation Comments Segs-Bands # (test code = Segs-Bands #) 4.5 1.5-8.1 [facility] Hospit[id number] 16:33:00 Test Item Value Reference Range Interpretation Comments Lymphocytes # (test code = Lymphocytes 1.6 1.0-5.5 #) [facility] HospitalWfnmdwhKDSFSBTYZM3500-87-18 16:33:00 Test Item Value Reference Range Interpretation Comments Monocytes # (test code 0.6 See_Comment [Aut omated message] The = Monocytes #) system which generated this result tra nsmitted reference range : <=0.8. The reference r chuck was not used to int erpret this result as normal/abnormal . [facility] HospitalFqfioqkJYQVZQGJNC4955-96-52 16:33:00 Test Item Value Reference Range Interpretation Comments Basophils # (test code 0.1 See_Comment [Aut omated message] The = Basophils #) system which generated this result tra nsmitted reference range : <=0.2. The reference r chuck was not used to int erpret this result as normal/abnormal . [facility] HospitalVbthihdOIDRJKAJUV6326-90-01 16:33:00 Test Item Value Reference Range Interpretation Comments Eosinophils # (test code 0.3 See_Comment [A utomated message] The = Eosinophils #) system whic h generated this result tra nsmitted reference range : <=0.5. The reference r chuck was not used to int erpret this result as normal/abnormal . [facility] HospitalSgoexuwRUISRRRFJJ0420-30-10 16:33:00 Test Item Value Reference Range Interpretation Comments MCH (test code = MCH) 32.3 pg 27.0-31.0 [facility] HospitalQytnixgHZNSTQLKBY1855-01-27 16:33:00 Test Item Value Reference Range Interpretation Comments MCHC (test code = MCHC) 33.5 32.0-36.0 [facility] HospitalBomfdguDWJVBQBBIF0225-07-09 16:33:00 Test Item Value Reference Range Interpretation Comments RDW (test code = RDW) 14.9 11.5-14.5 [facility] HospitalPfrxaxlKRVNMLMQTS8009-39-30 16:33:00 Test Item Value Reference Range Interpretation Comments Platelet (test code = Platelet) 250 133-450 [facility] HospitalRtpwdvmZPAHVNFGSJ9067-95-64 16:33:00 Test Item Value Reference Range Interpretation Comments MPV (test code = MPV) 7.1 7.4-10.4 [facility] HospitalEehypatWKNAORPALI0446-54-75 16:33:00 Test Item Value Reference Range Interpretation Comments RBC (test code = RBC) 2.92 4.20-5.40 [facility] HospitalJiufhkfYWTSPZJDOS2945-97-88 16:33:00 Test Item Value Reference Range Interpretation Comments WBC (test code = WBC) 7.1 3.7-10.4 [facility] HospitalDfkztllIBFVZTDFFW6235-74-27 16:33:00 Test Item Value Reference Range Interpretation Comments MCV (test code = MCV) 96.4 80.0-98.0 [facility] HospitalUwhnesyINEEGIYZBM8570-25-74 16:33:00 Test Item Value Reference Range Interpretation Comments Hgb (test code = Hgb) 9.4 12.0-16.0 [facility] HospitalRonngdzDERKNIIPOA3827-38-13 16:33:00 Test Item Value Reference Range Interpretation Comments Hct (test code = Hct) 28.2 36.0-48.0 [facility]landUhecqymIICPLEQMXM1800-96-46 16:33:00 Test Item Value Reference Range Interpretation Comments CDC HIV 4th GEN (test Negative (10/22/14 11:33 code = CDC HIV 4th AM) GEN) [facility] RvbrkpbLETPGJYMCT6749-98-18 16:33:00 Test Item Value Reference Range Interpretation Comments Naylor-Hep C Ab (test Negative *NA*(10/22/14 code = Naylor-Hep C 11:33 AM) Ab) [facility]annCARDIAC [id number] 16:33:00 Test Item Value Reference Range Interpretation Comments CK MB Index (test 1.2 See_Comment [Automate d message] The code = CK MB Index) system w [facility] generated this result transmit mirna reference range : <=2.5. The reference range was not used to interpr et this result as zahra l/abnormal. [facility] [employer] UHCWJJR7500-03-69 16:33:00 Test Item Value Reference Range Interpretation Comments CK MB (test code = CK MB) 0.6 0.5-3.6 [facility]arsannUrban InternsAC [id number] 16:33:00 Test Item Value Reference Range Interpretation Comments Troponin-I (test code no gt See_Comment [Auto mated message] The = Troponin-I) system which g enerated this result transmit mirna reference range : <=0.40. The reference r chuck was not used to interpr et this result as zahra l/abnormal. [facility] [employer] [id number] 16:33:00 Test Item Value Reference Range Interpretation Comments Total CK (test code = Total CK) 50 12-191 [facility] [employer] [id number] 16:33:00 Test Item Value Reference Range Interpretation Comments BNP (test code = BNP) 180 [facility] [employer] [id number] 16:33:00 Test Item Value Reference Range Interpretation Comments eGFR (test code = eGFR) 78 [facility] [id number] 16:33:00 Test Item Value Reference Range Interpretation Comments Globulin (test code = Globulin) 3.1 2.0-4.0 [facility] [employer] [id number] 16:33:00 Test Item Value Reference Range Interpretation Comments A/G Ratio (test code = A/G Ratio) 1.1 0.7-1.6 [facility] [id number] 16:33:00 Test Item Value Reference Range Interpretation Comments BUN (test code = BUN) 8 7-22 [facility]2015-04-27 16:33:00 Test Item Value Reference Range Interpretation Comments Glucose Lvl (test code = Glucose Lvl) 103 70-99 [place] 307945-04-27 16:33:00 Test Item Value Reference Range Interpretation Comments Sodium Lvl (test code = Sodium Lvl) 141 135-145 [facility]2015-04-27 16:33:00 Test Item Value Reference Range Interpretation Comments Creatinine Lvl (test code = Creatinine 0.9 0.5-1.4 Lvl) [facility]2015-04-27 16:33:00 Test Item Value Reference Range Interpretation Comments Potassium Lvl (test code = Potassium 3.5 3.5-5.1 Lvl) [facility]2015-04-27 16:33:00 Test Item Value Reference Range Interpretation Comments CO2 (test code = CO2) 27 24-32 [facility]2015-04-27 16:33:00 Test Item Value Reference Range Interpretation Comments Chloride Lvl (test code = Chloride Lvl) 109 95-109 [facility]2015-04-27 16:33:00 Test Item Value Reference Range Interpretation Comments Total Protein (test code = Total 6.4 6.4-8.4 Protein) [facility]2015-04-27 16:33:00 Test Item Value Reference Range Interpretation Comments ALT (test code = ALT) 13 See_Comment [Auto mated message] The system which ge nerated this result transmit mirna reference range : <=65. The reference range was not used to interpr et this result as zahra l/abnormal. [facility]2015-04-27 16:33:00 Test Item Value Reference Range Interpretation Comments AST (test code = AST) 17 See_Comment [Auto mated message] The system which ge nerated this result transmit mirna reference range : <=37. The reference range was not used to interpr et this result as zahra l/abnormal. [facility]2015-04-27 16:33:00 Test Item Value Reference Range Interpretation Comments Alk Phos (test code = Alk Phos) 46 39-136 [place] 307945-04-27 16:33:00 Test Item Value Reference Range Interpretation Comments Calcium Lvl (test code = Calcium Lvl) 8.3 8.5-10.5 [facility]2015-04-27 16:33:00 Test Item Value Reference Range Interpretation Comments B/C Ratio (test code = B/C Ratio) 9 6-25 [facility]2015-04-27 16:33:00 Test Item Value Reference Range Interpretation Comments AGAP (test code = AGAP) 8.5 10.0-20.0 [facility]2015-04-27 16:33:00 Test Item Value Reference Range Interpretation Comments Albumin Lvl (test code = Albumin Lvl) 3.3 3.5-5.0 [facility]2015-04-27 16:33:00 Test Item Value Reference Range Interpretation Comments Bili Total (test code = Bili Total) 0.3 0.2-1.3 [facility]WdkbubeWOUMUDNSVS0355-80-88 16:33:00 Test Item Value Reference Range Interpretation Comments Segs (test code = Segs) 63.6 45.0-75.0 [facility] HospitalBqsmhhaIAZGEVKCPJ5393-13-12 16:33:00 Test Item Value Reference Range Interpretation Comments Lymphocytes (test code = Lymphocytes) 22.9 20.0-40.0 [facility] HospitalCwjikdzSPFWMIFUBX6019-17-04 16:33:00 Test Item Value Reference Range Interpretation Comments Monocytes (test code = Monocytes) 8.2 2.0-12.0 [facility] HospitalFxkaxjtYBGRMHTSIW3523-02-58 16:33:00 Test Item Value Reference Range Interpretation Comments Eosinophils (test code = 4.2 See_Comment [A utomated message] The Eosinophils) system which ge nerated this result tra nsmitted reference range : <=4.0. The reference r chuck was not used to int erpret this result as normal/abnormal . [facility] HospitalWaytnkbSWKUTGISPG5144-94-22 16:33:00 Test Item Value Reference Range Interpretation Comments Basophils (test code = 1.1 See_Comment [Aut omated message] The Basophils) system which ge nerated this result tra nsmitted reference range : <=1.0. The reference r chukc was not used to int erpret this result as normal/abnormal . [place] 095125-04-27 16:33:00 Test Item Value Reference Range Interpretation Comments Segs-Bands # (test code = Segs-Bands #) 4.5 1.5-8.1 [facility] HospitalMddvzavSPVTGLZQQC8458-10-43 16:33:00 Test Item Value Reference Range Interpretation Comments Lymphocytes # (test code = Lymphocytes 1.6 1.0-5.5 #) [facility] HospitalSliluraXNVGTJEYZR6003-04-09 16:33:00 Test Item Value Reference Range Interpretation Comments Monocytes # (test code 0.6 See_Comment [Aut omated message] The = Monocytes #) system which generated this result tra nsmitted reference range : <=0.8. The reference r chuck was not used to int erpret this result as normal/abnormal . [facility] HospitalVcvoxtcJMIEGJGWVZ6724-63-94 16:33:00 Test Item Value Reference Range Interpretation Comments Basophils # (test code 0.1 See_Comment [Aut omated message] The = Basophils #) system which generated this result tra nsmitted reference range : <=0.2. The reference r chuck was not used to int erpret this result as normal/abnormal . [facility] HospitalDfyfrfwUASJQGCNJR9573-98-12 16:33:00 Test Item Value Reference Range Interpretation Comments Eosinophils # (test code 0.3 See_Comment [A utomated message] The = Eosinophils #) system whic h generated this result tra nsmitted reference range : <=0.5. The reference r chuck was not used to int erpret this result as normal/abnormal . [facility] HospitalXjcpalcVLHZTXFSBL0837-27-69 16:33:00 Test Item Value Reference Range Interpretation Comments MCH (test code = MCH) 32.3 pg 27.0-31.0 [facility] HospitalQfbxlbbAULFEEVGJL9823-85-46 16:33:00 Test Item Value Reference Range Interpretation Comments MCHC (test code = MCHC) 33.5 32.0-36.0 [facility] HospitalVavhhhnPIVDXCQVLR6946-58-26 16:33:00 Test Item Value Reference Range Interpretation Comments RDW (test code = RDW) 14.9 11.5-14.5 [facility] HospitalUraroefGMWSLDTYDO1970 16:33:00 Test Item Value Reference Range Interpretation Comments Platelet (test code = Platelet) 250 133-450 [facility] HospitalOhhmzqbXPOMAQWVQJ2171-27-65 16:33:00 Test Item Value Reference Range Interpretation Comments MPV (test code = MPV) 7.1 7.4-10.4 [facility]jzbzkzTJWAFRUTAK5324-16-96 16:33:00 Test Item Value Reference Range Interpretation Comments RBC (test code = RBC) 2.92 4.20-5.[address] [facility]BhbckdjJXEVAFNGUZ7740-08-36 16:33:00 Test Item Value Reference Range Interpretation Comments WBC (test code = WBC) 7.1 3.7-10.[address] [facility] HospitalNphzgcoEZOSWMVGDB9292-60-54 16:33:00 Test Item Value Reference Range Interpretation Comments MCV (test code = MCV) 96.4 80.0-98.[address] [facility] HospitalCpafigzXTOIOVBEUC4552-40-68 16:33:00 Test Item Value Reference Range Interpretation Comments Hgb (test code = Hgb) 9.4 12.0-16.0 [facility] HospitalRufwwciAQECCAECRM2497-20-01 16:33:00 Test Item Value Reference Range Interpretation Comments Hct (test code = Hct) 28.2 36.0-48.0 [facility]landHfkdzgsLWMEYEHCEO2323-82-68 16:33:00 Test Item Value Reference Range Interpretation Comments [facility] HIV 4th GEN (test Negative (10/22/14 11:33 code = CDC HIV 4th AM) GEN) [facility]landSotuhmnUMGYJIJHGJ7785-27-71 16:33:00 Test Item Value Reference Range Interpretation Comments Naylor-Hep C Ab (test Negative *NA*(10/22/14 code = Naylor-Hep C 11:33 AM) Ab) [facility]landCARDIAC [id number] 16:33:00 Test Item Value Reference Range Interpretation Comments CK MB Index (test 1.2 See_Comment [Automate d message] The code = CK MB Index) system w [facility] generated this result transmit mirna reference range : <=2.5. The reference range was not used to interpr et this result as zahra l/abnormal. [facility]landCARDI[facility] [id number] 16:33:00 Test Item Value Reference Range Interpretation Comments CK MB (test code = CK MB) 0.6 0.5-3.6 [facility] [id number] 16:33:00 Test Item Value Reference Range Interpretation Comments Troponin-I (test code no gt See_Comment [Auto mated message] The = Troponin-I) system which g enerated this result transmit mirna reference range : <=0.40. The reference r chuck was not used to interpr et this result as zahra l/abnormal. [facility]landUr[facility] [id number] 16:33:00 Test Item Value Reference Range Interpretation Comments Total CK (test code = Total CK) 50 12-191 [facility] [id number] 16:33:00 Test Item Value Reference Range Interpretation Comments BNP (test code = BNP) 180 [facility] [id number] 16:33:00 Test Item Value Reference Range Interpretation Comments eGFR (test code = eGFR) 78 [facility]landGim[facility] [id number] 16:33:00 Test Item Value Reference Range Interpretation Comments Globulin (test code = Globulin) 3.1 2.0-4.0 [facility]2015-04-27 16:33:00 Test Item Value Reference Range Interpretation Comments A/G Ratio (test code = A/G Ratio) 1.1 0.7-1.6 [facility] [id number] 16:33:00 Test Item Value Reference Range Interpretation Comments BUN (test code = BUN) 8 7-22 [facility] [id number] 16:33:00 Test Item Value Reference Range Interpretation Comments Glucose Lvl (test code = Glucose Lvl) 103 70-99 [facility]2015-04-27 16:33:00 Test Item Value Reference Range Interpretation Comments Sodium Lvl (test code = Sodium Lvl) 141 135-145 [facility]landG[facility] [id number] 16:33:00 Test Item Value Reference Range Interpretation Comments Creatinine Lvl (test code = Creatinine 0.9 0.5-1.4 Lvl) [id number] 16:33:00 Test Item Value Reference Range Interpretation Comments Potassium Lvl (test code = Potassium 3.5 3.5-5.1 Lvl) [facility] [id number] 16:33:00 Test Item Value Reference Range Interpretation Comments CO2 (test code = CO2) 27 24-32 [facility] [id number] 16:33:00 Test Item Value Reference Range Interpretation Comments Chloride Lvl (test code = Chloride Lvl) 109 95-109 [facility]2015-04-27 16:33:00 Test Item Value Reference Range Interpretation Comments Total Protein (test code = Total 6.4 6.4-8.4 Protein) [facility]2015-04-27 16:33:00 Test Item Value Reference Range Interpretation Comments ALT (test code = ALT) 13 See_Comment [Auto mated message] The system which ge nerated this result transmit mirna reference range : <=65. The reference range was not used to interpr et this result as zahra l/abnormal. [facility]2015-04-27 16:33:00 Test Item Value Reference Range Interpretation Comments AST (test code = AST) 17 See_Comment [Auto mated message] The system which ge nerated this result transmit mirna reference range : <=37. The reference range was not used to interpr et this result as zahra l/abnormal. [facility]2015-04-27 16:33:00 Test Item Value Reference Range Interpretation Comments Alk Phos (test code = Alk Phos) 46 39-136 [facility]2015-04-27 16:33:00 Test Item Value Reference Range Interpretation Comments Calcium Lvl (test code = Calcium Lvl) 8.3 8.5-10.5 [facility]2015-04-27 16:33:00 Test Item Value Reference Range Interpretation Comments B/C Ratio (test code = B/C Ratio) 9 6-25 [facility]2015-04-27 16:33:00 Test Item Value Reference Range Interpretation Comments AGAP (test code = AGAP) 8.5 10.0-20.0 [facility]2015-04-27 16:33:00 Test Item Value Reference Range Interpretation Comments Albumin Lvl (test code = Albumin Lvl) 3.3 3.5-5.0 [facility]2015-04-27 16:33:00 Test Item Value Reference Range Interpretation Comments Bili Total (test code = Bili Total) 0.3 0.2-1.3 [facility] HospitalSgpbdaoWSVFINHWRK4941-36-96 16:33:00 Test Item Value Reference Range Interpretation Comments Segs (test code = Segs) 63.6 45.0-75.0 [facility] HospitalOqumkbrYZFAMYHKVI6550-96-98 16:33:00 Test Item Value Reference Range Interpretation Comments Lymphocytes (test code = Lymphocytes) 22.9 20.0-40.0 [facility] HospitalIcknssqLAGVZBZAQW8155-09-29 16:33:00 Test Item Value Reference Range Interpretation Comments Monocytes (test code = Monocytes) 8.2 2.0-12.0 [facility] HospitalPzndwxrAOXWXDVGSE0543-16-18 16:33:00 Test Item Value Reference Range Interpretation Comments Eosinophils (test code = 4.2 See_Comment [A utomated message] The Eosinophils) system which ge nerated this result tra nsmitted reference range : <=4.0. The reference r chuck was not used to int erpret this result as normal/abnormal . [facility] HospitalJplmcqoTDIXTUHJYQ4291-91-23 16:33:00 Test Item Value Reference Range Interpretation Comments Basophils (test code = 1.1 See_Comment [Aut omated message] The Basophils) system which ge nerated this result tra nsmitted reference range : <=1.0. The reference r chuck was not used to int erpret this result as normal/abnormal . [facility] HospitalNdgpogpASCIPITRUM9466-91-42 16:33:00 Test Item Value Reference Range Interpretation Comments Segs-Bands # (test code = Segs-Bands #) 4.5 1.5-8.1 [facility] HospitalYfjnsnuVMCIUXNBLS9982-15-32 16:33:00 Test Item Value Reference Range Interpretation Comments Lymphocytes # (test code = Lymphocytes 1.6 1.0-5.5 #) [facility] HospitalCzcuawiEVDYBLSQEN3086-09-19 16:33:00 Test Item Value Reference Range Interpretation Comments Monocytes # (test code 0.6 See_Comment [Aut omated message] The = Monocytes #) system which generated this result tra nsmitted reference range : <=0.8. The reference r chuck was not used to int erpret this result as normal/abnormal . [facility] HospitalRsdpqqcPCYRQUINNG4680-66-16 16:33:00 Test Item Value Reference Range Interpretation Comments Basophils # (test code 0.1 See_Comment [Aut omated message] The = Basophils #) system which generated this result tra nsmitted reference range : <=0.2. The reference r chuck was not used to int erpret this result as normal/abnormal . [facility] HospitalWkrxzxsWWLEXXPFVC7030 16:33:00 Test Item Value Reference Range Interpretation Comments Eosinophils # (test code 0.3 See_Comment [A utomated message] The = Eosinophils #) system whic h generated this result tra nsmitted reference range : <=0.5. The reference r chuck was not used to int erpret this result as normal/abnormal . [facility] HospitalRvdhxkoOZTFVGWACD7850-53-11 16:33:00 Test Item Value Reference Range Interpretation Comments MCH (test code = MCH) 32.3 pg 27.0-31.0 [facility] HospitalGqmcbgwNVMSEFUSKW0549-37-75 16:33:00 Test Item Value Reference Range Interpretation Comments MCHC (test code = MCHC) 33.5 32.0-36.0 [facility] HospitalOywmhebVNDKSHEUMS9824-83-62 16:33:00 Test Item Value Reference Range Interpretation Comments RDW (test code = RDW) 14.9 11.5-14.5 [facility] HospitalRiencxsDBDJOCEISF3690-27-11 16:33:00 Test Item Value Reference Range Interpretation Comments Platelet (test code = Platelet) 250 133-450 [facility] HospitalFmiurmhNSAOUBGIBX5862-07-64 16:33:00 Test Item Value Reference Range Interpretation Comments MPV (test code = MPV) 7.1 7.4-10.4 [facility] HospitalWbywujyAAAWLLUIAZ2713-04-03 16:33:00 Test Item Value Reference Range Interpretation Comments RBC (test code = RBC) 2.92 4.20-5.40 [facility] HospitalLfxqcrrRGHECFUELA2109-21-70 16:33:00 Test Item Value Reference Range Interpretation Comments WBC (test code = WBC) 7.1 3.7-10.4 [facility] HospitalLzljvonUEQNNDNHWJ4442-72-86 16:33:00 Test Item Value Reference Range Interpretation Comments MCV (test code = MCV) 96.4 80.0-98.0 [facility] HospitalUnbgzdyUKNVUPIQOQ9380-71-19 16:33:00 Test Item Value Reference Range Interpretation Comments Hgb (test code = Hgb) 9.4 12.0-16.0 [facility] HospitalKgaxjbcYULQSQCTRF9902-82-98 16:33:00 Test Item Value Reference Range Interpretation Comments Hct (test code = Hct) 28.2 36.0-48.0 [facility]landIhcssjcSYSGJCLEBO4156-18-56 16:33:00 Test Item Value Reference Range Interpretation Comments CDC HIV 4th GEN (test Negative (10/22/14 11:33 code = CDC HIV 4th AM) GEN) [facility] LnuvlckHKEGAQRTEU1719-74-22 16:33:00 Test Item Value Reference Range Interpretation Comments Naylor-Hep C Ab (test Negative *NA*(10/22/14 code = Naylor-Hep C 11:33 AM) Ab) [facility]CARDIAC [id number] 16:33:00 Test Item Value Reference Range Interpretation Comments CK MB Index (test 1.2 See_Comment [Automate d message] The code = CK MB Index) [facility] generated this result transmit mirna reference range : <=2.5. The reference range was not used to interpr et this result as zahra l/abnormal. [facility] [employer] [id number] 16:33:00 Test Item Value Reference Range Interpretation Comments CK MB (test code = CK MB) 0.6 0.5-3.6 [facility] [employer]2015-04-27 16:33:00 Test Item Value Reference Range Interpretation Comments Troponin-I (test code no gt See_Comment [Auto mated message] The = Troponin-I) system which g enerated this result transmit mirna reference range : <=0.40. The reference r chuck was not used to interpr et this result as zahra l/abnormal. [employer]2015-04-27 16:33:00 Test Item Value Reference Range Interpretation Comments Total CK (test code = Total CK) 50 12-191 [facility] [employer] [id number] 16:33:00 Test Item Value Reference Range Interpretation Comments BNP (test code = BNP) 180 [employer] [id number] 16:33:00 Test Item Value Reference Range Interpretation Comments eGFR (test code = eGFR) 78 [facility] [employer] [id number] 16:33:00 Test Item Value Reference Range Interpretation Comments Globulin (test code = Globulin) 3.1 2.0-4.0 [facility] [employer] [id number] 16:33:00 Test Item Value Reference Range Interpretation Comments A/G Ratio (test code = A/G Ratio) 1.1 0.7-1.6 [facility] [employer] [id number] 16:33:00 Test Item Value Reference Range Interpretation Comments BUN (test code = BUN) 8 7-22 [facility]2015-04-27 16:33:00 Test Item Value Reference Range Interpretation Comments Glucose Lvl (test code = Glucose Lvl) 103 70-99 [place] 307945-04-27 16:33:00 Test Item Value Reference Range Interpretation Comments Sodium Lvl (test code = Sodium Lvl) 141 135-145 [facility]2015-04-27 16:33:00 Test Item Value Reference Range Interpretation Comments Creatinine Lvl (test code = Creatinine 0.9 0.5-1.4 Lvl) [facility]2015-04-27 16:33:00 Test Item Value Reference Range Interpretation Comments Potassium Lvl (test code = Potassium 3.5 3.5-5.1 Lvl) [place] 307945-04-27 16:33:00 Test Item Value Reference Range Interpretation Comments CO2 (test code = CO2) 27 24-32 [facility]2015-04-27 16:33:00 Test Item Value Reference Range Interpretation Comments Chloride Lvl (test code = Chloride Lvl) 109 95-109 [facility]2015-04-27 16:33:00 Test Item Value Reference Range Interpretation Comments Total Protein (test code = Total 6.4 6.4-8.4 Protein) [facility]2015-04-27 16:33:00 Test Item Value Reference Range Interpretation Comments ALT (test code = ALT) 13 See_Comment [Auto mated message] The system which ge nerated this result transmit mirna reference range : <=65. The reference range was not used to interpr et this result as zahra l/abnormal. [facility]2015-04-27 16:33:00 Test Item Value Reference Range Interpretation Comments AST (test code = AST) 17 See_Comment [Auto mated message] The system which ge nerated this result transmit mirna reference range : <=37. The reference range was not used to interpr et this result as zahra l/abnormal. [place] 307945-04-27 16:33:00 Test Item Value Reference Range Interpretation Comments Alk Phos (test code = Alk Phos) 46 39-136 [facility]2015-04-27 16:33:00 Test Item Value Reference Range Interpretation Comments Calcium Lvl (test code = Calcium Lvl) 8.3 8.5-10.5 [facility]2015-04-27 16:33:00 Test Item Value Reference Range Interpretation Comments B/C Ratio (test code = B/C Ratio) 9 6-25 [facility]2015-04-27 16:33:00 Test Item Value Reference Range Interpretation Comments AGAP (test code = AGAP) 8.5 10.0-20.0 [facility]2015-04-27 16:33:00 Test Item Value Reference Range Interpretation Comments Albumin Lvl (test code = Albumin Lvl) 3.3 3.5-5.0 [facility]2015-04-27 16:33:00 Test Item Value Reference Range Interpretation Comments Bili Total (test code = Bili Total) 0.3 0.2-1.3 [facility] HospitalSguvtepDGRVGTVAGF2981-53-31 16:33:00 Test Item Value Reference Range Interpretation Comments Segs (test code = Segs) 63.6 45.0-75.0 [facility] HospitalPmxvrauYVDSSCVVVL5306-73-99 16:33:00 Test Item Value Reference Range Interpretation Comments Lymphocytes (test code = Lymphocytes) 22.9 20.0-40.0 [facility] HospitalGciaoaaGPTSFHEEOM7892-43-96 16:33:00 Test Item Value Reference Range Interpretation Comments Monocytes (test code = Monocytes) 8.2 2.0-12.0 [facility] HospitalSaqnfxwZRETGWAZFT9535-40-27 16:33:00 Test Item Value Reference Range Interpretation Comments Eosinophils (test code = 4.2 See_Comment [A utomated message] The Eosinophils) system which nerated this result tra nsmitted reference range : <=4.0. The reference r chuck was not used to int erpret this result as normal/abnormal . [facility] HospitalSnkmqfmCSTRDPDMWW6499-61-28 16:33:00 Test Item Value Reference Range Interpretation Comments Basophils (test code = 1.1 See_Comment [Aut omated message] The Basophils) system which ge nerated this result tra nsmitted reference range : <=1.0. The reference r chuck was not used to int erpret this result as normal/abnormal . [facility] HospitalErmxdpcVJUSGGSZZU8738-43-87 16:33:00 Test Item Value Reference Range Interpretation Comments Segs-Bands # (test code = Segs-Bands #) 4.5 1.5-8.1 [facility] HospitalSbkyxiiCHLXYLVWRB4307-68-70 16:33:00 Test Item Value Reference Range Interpretation Comments Lymphocytes # (test code = Lymphocytes 1.6 1.0-5.5 #) [facility] HospitalBizkgkyTEHIAYCYML0771-32-40 16:33:00 Test Item Value Reference Range Interpretation Comments Monocytes # (test code 0.6 See_Comment [Aut omated message] The = Monocytes #) system which generated this result tra nsmitted reference range : <=0.8. The reference r chuck was not used to int erpret this result as normal/abnormal . [facility] HospitalKopwjlxZTQGZKKDUA4912-80-20 16:33:00 Test Item Value Reference Range Interpretation Comments Basophils # (test code 0.1 See_Comment [Aut omated message] The = Basophils #) system which generated this result tra nsmitted reference range : <=0.2. The reference r chuck was not used to int erpret this result as normal/abnormal . [facility] HospitalHvgkjucGTQMRBDCIJ0166-04-48 16:33:00 Test Item Value Reference Range Interpretation Comments Eosinophils # (test code 0.3 See_Comment [A utomated message] The = Eosinophils #) system whic h generated this result tra nsmitted reference range : <=0.5. The reference r chuck was not used to int erpret this result as normal/abnormal . [facility] HospitalQbgsoheBBWBBYPVZE7267-17-38 16:33:00 Test Item Value Reference Range Interpretation Comments MCH (test code = MCH) 32.3 pg 27.0-31.0 [facility] HospitalQykajviPNDDFGCPJW8199-83-59 16:33:00 Test Item Value Reference Range Interpretation Comments MCHC (test code = MCHC) 33.5 32.0-36.0 [facility] HospitalVinpepwGUMWXYXNRK0265-62-15 16:33:00 Test Item Value Reference Range Interpretation Comments RDW (test code = RDW) 14.9 11.5-14.5 [facility] HospitalVszjnuxONEPYMJXES5522-99-31 16:33:00 Test Item Value Reference Range Interpretation Comments Platelet (test code = Platelet) 250 133-450 [facility] HospitalArmdckrEWRUCHQTJW8095-66-58 16:33:00 Test Item Value Reference Range Interpretation Comments MPV (test code = MPV) 7.1 7.4-10.[address] [facility]lsqgkwRMLDHEUQFJ3091-80-70 16:33:00 Test Item Value Reference Range Interpretation Comments RBC (test code = RBC) 2.92 4.20-5.[address] HospitalFgqlkuxOEDLGRQZZE5251-46-76 16:33:00 Test Item Value Reference Range Interpretation Comments WBC (test code = WBC) 7.1 3.7-10.4 [facility]XwggeenZHBPMCWCBD9519-81-51 16:33:00 Test Item Value Reference Range Interpretation Comments MCV (test code = MCV) 96.4 80.0-98.0 [facility]landUngtrnjHITIMSKEBP7513-73-52 16:33:00 Test Item Value Reference Range Interpretation Comments Hgb (test code = Hgb) 9.4 12.0-16.[address] [facility]FviiowsPWHLYIOUUW2108-07-68 16:33:00 Test Item Value Reference Range Interpretation Comments Hct (test code = Hct) 28.2 36.0-48.0 [facility]landJeskisjSNVOSVSSGA7751-48-26 16:33:00 Test Item Value Reference Range Interpretation Comments CDC HIV 4th GEN (test Negative (10/22/14 11:33 code = CDC HIV 4th AM) GEN) [facility]landGfcrprwIZWPAIBEQS9010-88-43 16:33:00 Test Item Value Reference Range Interpretation Comments Naylor-Hep C Ab (test Negative *NA*(10/22/14 code = Naylor-Hep C 11:33 AM) Ab) [facility]ARD[facility] [id number] 16:33:00 Test Item Value Reference Range Interpretation Comments CK MB Index (test code = CK MB Index) 1.[address] [facility] [id number] 16:33:00 Test Item Value Reference Range Interpretation Comments CK MB (test code = CK MB) 0.6 0.5-3.[address] [facility] [id number] 16:33:00 Test Item Value Reference Range Interpretation Comments Troponin-I (test code = Troponin-I) no gt <=0.[address] [facility] [id number] 16:33:00 Test Item Value Reference Range Interpretation Comments Total CK (test code = Total CK) 50 12-191 [facility] [id number] 16:33:00 Test Item Value Reference Range Interpretation Comments BNP (test code = BNP) 180 [facility] [id number] 16:33:00 Test Item Value Reference Range Interpretation Comments eGFR (test code = eGFR) 78 [facility]2015-04-27 16:33:00 Test Item Value Reference Range Interpretation Comments Globulin (test code = Globulin) 3.1 2.0-4.0 [facility]2015-04-27 16:33:00 Test Item Value Reference Range Interpretation Comments A/G Ratio (test code = A/G Ratio) 1.1 0.7-1.6 [facility]2015-04-27 16:33:00 Test Item Value Reference Range Interpretation Comments BUN (test code = BUN) 8 7-22 [facility]2015-04-27 16:33:00 Test Item Value Reference Range Interpretation Comments Glucose Lvl (test code = Glucose Lvl) 103 70-99 [facility]2015-04-27 16:33:00 Test Item Value Reference Range Interpretation Comments Sodium Lvl (test code = Sodium Lvl) 141 135-145 [facility] [id number] 16:33:00 Test Item Value Reference Range Interpretation Comments Creatinine Lvl (test code = Creatinine 0.9 0.5-1.4 Lvl) [facility]2015-04-27 16:33:00 Test Item Value Reference Range Interpretation Comments Potassium Lvl (test code = Potassium 3.5 3.5-5.1 Lvl) [facility]2015-04-27 16:33:00 Test Item Value Reference Range Interpretation Comments CO2 (test code = CO2) 27 24-32 [facility]2015-04-27 16:33:00 Test Item Value Reference Range Interpretation Comments Chloride Lvl (test code = Chloride Lvl) 109 95-109 [facility] [id number] 16:33:00 Test Item Value Reference Range Interpretation Comments Total Protein (test code = Total 6.4 6.4-8.4 Protein) [facility]2015-04-27 16:33:00 Test Item Value Reference Range Interpretation Comments ALT (test code = ALT) 13 <=65 [facility]2015-04-27 16:33:00 Test Item Value Reference Range Interpretation Comments AST (test code = AST) 17 <=37 [facility]2015-04-27 16:33:00 Test Item Value Reference Range Interpretation Comments Alk Phos (test code = Alk Phos) 46 39-136 [facility]2015-04-27 16:33:00 Test Item Value Reference Range Interpretation Comments Calcium Lvl (test code = Calcium Lvl) 8.3 8.5-10.5 [facility]2015-04-27 16:33:00 Test Item Value Reference Range Interpretation Comments B/C Ratio (test code = B/C Ratio) 9 6-25 [facility]2015-04-27 16:33:00 Test Item Value Reference Range Interpretation Comments AGAP (test code = AGAP) 8.5 10.0-20.0 [facility]2015-04-27 16:33:00 Test Item Value Reference Range Interpretation Comments Albumin Lvl (test code = Albumin Lvl) 3.3 3.5-5.0 [facility]2015-04-27 16:33:00 Test Item Value Reference Range Interpretation Comments Bili Total (test code = Bili Total) 0.3 0.2-1.3 [facility] HospitalGntktglKDVCRCRFKV2405-11-29 16:33:00 Test Item Value Reference Range Interpretation Comments Segs (test code = Segs) 63.6 45.0-75.0 [facility] HospitalCexrbbqAIEZKLAKOP1040-56-88 16:33:00 Test Item Value Reference Range Interpretation Comments Lymphocytes (test code = Lymphocytes) 22.9 20.0-40.0 [facility] HospitalStdeqzcUPIUISTDOC7690-00-59 16:33:00 Test Item Value Reference Range Interpretation Comments Monocytes (test code = Monocytes) 8.2 2.0-12.0 [facility] HospitalVkhjuuxGUOMQWCKUW2587-91-30 16:33:00 Test Item Value Reference Range Interpretation Comments Eosinophils (test code = Eosinophils) 4.2 <=4.0 [place] 095125-04-27 16:33:00 Test Item Value Reference Range Interpretation Comments Basophils (test code = Basophils) 1.1 <=1.0 [facility] HospitalWbgynhpAJPOQWJQAA2558-43-72 16:33:00 Test Item Value Reference Range Interpretation Comments Segs-Bands # (test code = Segs-Bands #) 4.5 1.5-8.1 [facility] HospitalZycfqeqKWRMUZUFPE3789-07-06 16:33:00 Test Item Value Reference Range Interpretation Comments Lymphocytes # (test code = Lymphocytes 1.6 1.0-5.5 #) [facility] HospitalNtgnrcgGMGTFWLOOX5520-25-76 16:33:00 Test Item Value Reference Range Interpretation Comments Monocytes # (test code = Monocytes #) 0.6 <=0.8 [facility] HospitalAmkxybvRZAYTOEDBJ7875-08-32 16:33:00 Test Item Value Reference Range Interpretation Comments Basophils # (test code = Basophils #) 0.1 <=0.2 [facility] HospitalXungxawDGGMKMQZVA7766-16-57 16:33:00 Test Item Value Reference Range Interpretation Comments Eosinophils # (test code = Eosinophils 0.3 <=0.5 #) [facility] HospitalXtmuxdjXNLNTZZQOY5960-12-16 16:33:00 Test Item Value Reference Range Interpretation Comments MCH (test code = MCH) 32.3 pg 27.0-31.0 [facility] HospitalCmvwixxIDBESYQRUZ0077-35-00 16:33:00 Test Item Value Reference Range Interpretation Comments MCHC (test code = MCHC) 33.5 32.0-36.0 [facility] HospitalLaufzqmHTEZAPXXSR2278-71-62 16:33:00 Test Item Value Reference Range Interpretation Comments RDW (test code = RDW) 14.9 11.5-14.5 [facility] HospitalJpxwlouSNIZKXETTB9277-99-00 16:33:00 Test Item Value Reference Range Interpretation Comments Platelet (test code = Platelet) 250 133-450 [facility] HospitalExlnrocCUVHOAJIKU3946-95-15 16:33:00 Test Item Value Reference Range Interpretation Comments MPV (test code = MPV) 7.1 7.4-10.4 [facility] HospitalRbxxicgOJQOWYNBFF6548-08-53 16:33:00 Test Item Value Reference Range Interpretation Comments RBC (test code = RBC) 2.92 4.20-5.40 [facility] HospitalCwctzkwETKOJDDRHD6848-79-25 16:33:00 Test Item Value Reference Range Interpretation Comments WBC (test code = WBC) 7.1 3.7-10.4 [facility] HospitalNarumkjDEVVEKKYZL7141-91-44 16:33:00 Test Item Value Reference Range Interpretation Comments MCV (test code = MCV) 96.4 80.0-98.0 [facility] HospitalXcengxkFTRKAUYKYG7065-42-53 16:33:00 Test Item Value Reference Range Interpretation Comments Hgb (test code = Hgb) 9.4 12.0-16.0 [facility] HospitalFfceytkWMVJTASFIM2210-67-18 16:33:00 Test Item Value Reference Range Interpretation Comments Hct (test code = Hct) 28.2 36.0-48.0 [facility]RTJNMN[facility]17[facility] 16:33:00 Test Item Value Reference Range Interpretation Comments CDC HIV 4th GEN (test Negative (10/22/14 11:33 code = CDC HIV 4th AM) GEN) [facility]yyizkhQDXVEEVUCU0147-33-83 16:33:00 Test Item Value Reference Range Interpretation Comments Naylor-Hep C Ab (test Negative *NA*(10/22/14 code = Naylor-Hep C 11:33 AM) Ab) [facility]2015-01-23 05:26:00 Test Item Value Reference Range Interpretation Comments eGFR (test code = eGFR) 90 [facility]2015-01-23 05:26:00 Test Item Value Reference Range Interpretation Comments Chloride Lvl (test code = Chloride Lvl) 112 95-109 [facility]2015-01-23 05:26:00 Test Item Value Reference Range Interpretation Comments Creatinine Lvl (test code = Creatinine 0.8 0.5-1.4 Lvl) [facility]2015-01-23 05:26:00 Test Item Value Reference Range Interpretation Comments Potassium Lvl (test code = Potassium 3.8 3.5-5.1 Lvl) [facility]2015-01-23 05:26:00 Test Item Value Reference Range Interpretation Comments BUN (test code = BUN) 19 7-22 [facility]2015-01-23 05:26:00 Test Item Value Reference Range Interpretation Comments Sodium Lvl (test code = Sodium Lvl) 144 135-145 [facility]2015-01-23 05:26:00 Test Item Value Reference Range Interpretation Comments Glucose Lvl (test code = Glucose Lvl) 93 70-99 [facility]2015-01-23 05:26:00 Test Item Value Reference Range Interpretation Comments ALT (test code = ALT) 15 See_Comment [Auto mated message] The system which ge nerated this result transmit mirna reference range : <=65. The reference range was not used to interpr et this result as zahra l/abnormal. [facility]2015-01-23 05:26:00 Test Item Value Reference Range Interpretation Comments Bili Total (test code = Bili Total) 0.1 0.2-1.3 [facility]2015-01-23 05:26:00 Test Item Value Reference Range Interpretation Comments Alk Phos (test code = Alk Phos) 51 39-[address] [facility]Honestly.comATRIUM HEALTH UNIONYGZRD7513-06-64 05:26:00 Test Item Value Reference Range Interpretation Comments AST (test code = AST) 15 See_Comment [Auto mated message] The system which ge nerated this result transmit mirna reference range : <=37. The reference range was not used to interpr et this result as zahra l/abnormal. [facility] HospitalHonestly.comATRIUM HEALTH UNIONXLUGQ4895-00-84 05:26:00 Test Item Value Reference Range Interpretation Comments CO2 (test code = CO2) 26 24-32 [facility] HAUTB6782-05-28 05:26:00 Test Item Value Reference Range Interpretation Comments Calcium Lvl (test code = Calcium Lvl) 8.9 8.5-10.[address] [facility]Will[facility] [id number] 05:26:00 Test Item Value Reference Range Interpretation Comments Total Protein (test code = Total 7.0 6.4-8.4 Protein) [facility]2015-01-23 05:26:00 Test Item Value Reference Range Interpretation Comments Albumin Lvl (test code = Albumin Lvl) 3.7 3.5-5.[address] [facility]Will[facility] [id number] 05:26:00 Test Item Value Reference Range Interpretation Comments B/C Ratio (test code = B/C Ratio) 24 6-[address] [facility] [id number] 05:26:00 Test Item Value Reference Range Interpretation Comments Globulin (test code = Globulin) 3.3 2.0-4.0 [place] 307945-01-23 05:26:00 Test Item Value Reference Range Interpretation Comments A/G Ratio (test code = A/G Ratio) 1.1 0.7-1.6 [facility]2015-01-23 05:26:00 Test Item Value Reference Range Interpretation Comments AGAP (test code = AGAP) 9.8 10.0-20.0 [facility] HospitalXbmujnkYHJAPODKRQ9010-67-29 05:26:00 Test Item Value Reference Range Interpretation Comments Monocytes (test code = Monocytes) 7.8 2.0-12.0 [facility] HospitalCfggqskDOEUQPDBHM9247-90-28 05:26:00 Test Item Value Reference Range Interpretation Comments Segs (test code = Segs) 44.5 45.0-75.0 [facility] HospitalHozxmyzFLVGGINGPV9285-53-37 05:26:00 Test Item Value Reference Range Interpretation Comments Lymphocytes (test code = Lymphocytes) 40.5 20.0-40.0 [facility] HospitalGjhyhdhSXVAAJJPMY0075-56-83 05:26:00 Test Item Value Reference Range Interpretation Comments Eosinophils # (test code 0.4 See_Comment [A utomated message] The = Eosinophils #) system whic h generated this result tra nsmitted reference range : <=0.5. The reference r chuck was not used to int erpret this result as normal/abnormal . [facility] HospitalYxljftuNVITOCGGKH5543-48-86 05:26:00 Test Item Value Reference Range Interpretation Comments Monocytes # (test code 0.6 See_Comment [Aut omated message] The = Monocytes #) system which generated this result tra nsmitted reference range : <=0.8. The reference r chuck was not used to int erpret this result as normal/abnormal . [facility] HospitalEezibdnDKYPPMVVXK0558-27-54 05:26:00 Test Item Value Reference Range Interpretation Comments Lymphocytes # (test code = Lymphocytes 2.9 1.0-5.5 #) [facility] HospitalRgjhcnkUBYFFDIURG4045-24-66 05:26:00 Test Item Value Reference Range Interpretation Comments Segs-Bands # (test code = Segs-Bands #) 3.1 1.5-8.1 [facility] HospitalApdirrnALXFODTOVI6189-82-74 05:26:00 Test Item Value Reference Range Interpretation Comments Eosinophils (test code = 5.0 See_Comment [A utomated message] The Eosinophils) system which ge nerated this result tra nsmitted reference range : <=4.0. The reference r chuck was not used to int erpret this result as normal/abnormal . [facility] HospitalVovrwqfPSANLRRIFY3846-82-62 05:26:00 Test Item Value Reference Range Interpretation Comments Basophils (test code = 2.2 See_Comment [Aut omated message] The Basophils) system which ge nerated this result tra nsmitted reference range : <=1.0. The reference r chuck was not used to int erpret this result as normal/abnormal . [facility] HospitalGyugbgtQESOWNQYDB3872-22-85 05:26:00 Test Item Value Reference Range Interpretation Comments Basophils # (test code 0.2 See_Comment [Aut omated message] The = Basophils #) system which generated this result tra nsmitted reference range : <=0.2. The reference r chuck was not used to int erpret this result as normal/abnormal . [facility] HospitalJhexbvfUHMSPFLFUV2167-91-92 05:26:00 Test Item Value Reference Range Interpretation Comments RBC (test code = RBC) 3.64 4.20-5.40 [facility] HospitalBckhzbdTUIJVCGTED8808-78-47 05:26:00 Test Item Value Reference Range Interpretation Comments Hgb (test code = Hgb) 11.6 12.0-16.0 [facility] HospitalCsijsquOPNUAQNHXR3345-04-26 05:26:00 Test Item Value Reference Range Interpretation Comments Platelet (test code = Platelet) 264 133-450 [facility] HospitalRpsiqivGICITPJZPW9811-93-61 05:26:00 Test Item Value Reference Range Interpretation Comments RDW (test code = RDW) 14.0 11.5-14.5 [facility] HospitalAbbsnxgPVMUUEJLJY6171-74-09 05:26:00 Test Item Value Reference Range Interpretation Comments MCHC (test code = MCHC) 32.9 32.0-36.0 [facility] HospitalGtwwkcmUTDUWEAETD0340-25-38 05:26:00 Test Item Value Reference Range Interpretation Comments WBC (test code = WBC) 7.0 3.7-10.4 [facility] HospitalLhbzhytGLGJFEHPWE0464-63-94 05:26:00 Test Item Value Reference Range Interpretation Comments MCV (test code = MCV) 97.0 80.0-98.0 [facility] HospitalPbcyxxqLDZNBFRTOQ1162-00-44 05:26:00 Test Item Value Reference Range Interpretation Comments MCH (test code = MCH) 31.9 pg 27.0-31.0 [facility] HospitalEnmtrypROYZQGCYIE9076-33-34 05:26:00 Test Item Value Reference Range Interpretation Comments Hct (test code = Hct) 35.3 36.0-48.0 [facility]qwguCUIKVMOGRP3320-66-58 05:26:00 Test Item Value Reference Range Interpretation Comments MPV (test code = MPV) 7.6 7.4-10.4 [facility] AND [id number] 05:26:00 Test Item Value Reference Range Interpretation Comments UA Leuk Est (test Negative (07/19/14 11:26 code = UA Leuk Est) PM) [facility] AND [id number] 05:26:00 Test Item Value Reference Range Interpretation Comments UA Nitrite (test code Negative (07/19/14 11:26 = UA Nitrite) PM) [facility] AND [id number] 05:26:00 Test Item Value Reference Range Interpretation Comments UA pH (test code = UA pH) 6.0 1 5.0-8.0 [facility] AND [id number] 05:26:00 Test Item Value Reference Range Interpretation Comments UA Spec Grav (test >=1.030 *ABN*(07/19/14 code = UA Spec Grav) 11:26 PM) [facility] AND [id number] 05:26:00 Test Item Value Reference Range Interpretation Comments UA Turbidity (test code Slight Cloudy = UA Turbidity) (07/19/14 11:26 PM) [facility] AND [id number] 05:26:00 Test Item Value Reference Range Interpretation Comments UA Color (test code = Yellow *NA*(07/19/14 UA Color) 11:26 PM) [facility] AND [id number] 05:26:00 Test Item Value Reference Range Interpretation Comments UA Bili (test code = Small *ABN*(07/19/14 UA Bili) 11:26 PM) [facility] AND [id number] 05:26:00 Test Item Value Reference Range Interpretation Comments UA Protein (test code = Trace *ABN*(07/19/14 UA Protein) 11:26 PM) [facility] [id number] 05:26:00 Test Item Value Reference Range Interpretation Comments UA Ketones (test code = Trace *ABN*(07/19/14 UA Ketones) 11:26 PM) [facility] AND [id number] 05:26:00 Test Item Value Reference Range Interpretation Comments UA Glucose (test code Negative (07/19/14 11:26 = UA Glucose) PM) [facility] AND [id number] 05:26:00 Test Item Value Reference Range Interpretation Comments UA Sq Epi (test code = UA Sq Epi) Few /LPF [facility] AND [id number] 05:26:00 Test Item Value Reference Range Interpretation Comments UA WBC (test code = UA WBC) 3-5 /HPF [facility] AND [id number] 05:26:00 Test Item Value Reference Range Interpretation Comments UA RBC (test code = 0-2 /HPF See_Comment [Automa mirna message] The UA RBC) system which ge nerated this result tra nsmitted reference range : <=2. The reference range was not used to interpr et this result as zahra l/abnormal. [facility] AND [id number] 05:26:00 Test Item Value Reference Range Interpretation Comments UA Urobilinogen (test code = UA 0.2 0.1-1.0 Urobilinogen) [facility] AND [id number] 05:26:00 Test Item Value Reference Range Interpretation Comments UA Blood (test code = Negative (07/19/14 11:26 UA Blood) PM) [facility] AND [id number] 05:26:00 Test Item Value Reference Range Interpretation Comments UA Bacteria (test code = UA Few /HPF Bacteria) [facility] AND [id number] 05:26:00 Test Item Value Reference Range Interpretation Comments UA Mucus (test code = UA Mucus) Few /LPF [facility] [id number] 05:26:00 Test Item Value Reference Range Interpretation Comments eGFR (test code = eGFR) 90 [facility]2015-01-23 05:26:00 Test Item Value Reference Range Interpretation Comments Chloride Lvl (test code = Chloride Lvl) 112 95-109 [facility]2015-01-23 05:26:00 Test Item Value Reference Range Interpretation Comments Creatinine Lvl (test code = Creatinine 0.8 0.5-1.4 Lvl) [facility]2015-01-23 05:26:00 Test Item Value Reference Range Interpretation Comments Potassium Lvl (test code = Potassium 3.8 3.5-5.1 Lvl) [facility]2015-01-23 05:26:00 Test Item Value Reference Range Interpretation Comments BUN (test code = BUN) 19 7-22 [facility]2015-01-23 05:26:00 Test Item Value Reference Range Interpretation Comments Sodium Lvl (test code = Sodium Lvl) 144 135-145 [facility]2015-01-23 05:26:00 Test Item Value Reference Range Interpretation Comments Glucose Lvl (test code = Glucose Lvl) 93 70-99 [place] 307945-01-23 05:26:00 Test Item Value Reference Range Interpretation Comments ALT (test code = ALT) 15 See_Comment [Auto mated message] The system which ge nerated this result transmit mirna reference range : <=65. The reference range was not used to interpr et this result as zahra l/abnormal. [place] 307945-01-23 05:26:00 Test Item Value Reference Range Interpretation Comments Bili Total (test code = Bili Total) 0.1 0.2-1.3 [place] 307945-01-23 05:26:00 Test Item Value Reference Range Interpretation Comments Alk Phos (test code = Alk Phos) 51 39-136 [facility]2015-01-23 05:26:00 Test Item Value Reference Range Interpretation Comments AST (test code = AST) 15 See_Comment [Auto mated message] The system which ge nerated this result transmit mirna reference range : <=37. The reference range was not used to interpr et this result as zahra l/abnormal. [facility]2015-01-23 05:26:00 Test Item Value Reference Range Interpretation Comments CO2 (test code = CO2) 26 24-32 [place] 307945-01-23 05:26:00 Test Item Value Reference Range Interpretation Comments Calcium Lvl (test code = Calcium Lvl) 8.9 8.5-10.5 [facility]2015-01-23 05:26:00 Test Item Value Reference Range Interpretation Comments Total Protein (test code = Total 7.0 6.4-8.4 Protein) [facility]2015-01-23 05:26:00 Test Item Value Reference Range Interpretation Comments Albumin Lvl (test code = Albumin Lvl) 3.7 3.5-5.0 [facility]2015-01-23 05:26:00 Test Item Value Reference Range Interpretation Comments B/C Ratio (test code = B/C Ratio) 24 6-25 [facility]2015-01-23 05:26:00 Test Item Value Reference Range Interpretation Comments Globulin (test code = Globulin) 3.3 2.0-4.0 [facility]2015-01-23 05:26:00 Test Item Value Reference Range Interpretation Comments A/G Ratio (test code = A/G Ratio) 1.1 0.7-1.6 [facility]2015-01-23 05:26:00 Test Item Value Reference Range Interpretation Comments AGAP (test code = AGAP) 9.8 10.0-20.0 [facility] HospitalKsmvsgrASBCTMQPGI0188-61-20 05:26:00 Test Item Value Reference Range Interpretation Comments Monocytes (test code = Monocytes) 7.8 2.0-12.0 [facility] HospitalEjmvxcdTRHXSDLDND9546-23-77 05:26:00 Test Item Value Reference Range Interpretation Comments Segs (test code = Segs) 44.5 45.0-75.0 [facility] HospitalUpyrfkfWWXFXIQDOF4767-43-40 05:26:00 Test Item Value Reference Range Interpretation Comments Lymphocytes (test code = Lymphocytes) 40.5 20.0-40.0 [facility] HospitalSafhnpdAPIEICFLEH5174-70-21 05:26:00 Test Item Value Reference Range Interpretation Comments Eosinophils # (test code 0.4 See_Comment [A utomated message] The = Eosinophils #) system whic h generated this result tra nsmitted reference range : <=0.5. The reference r chuck was not used to int erpret this result as normal/abnormal . [facility] HospitalHmqohiqWZYLMPVLTE4994-19-22 05:26:00 Test Item Value Reference Range Interpretation Comments Monocytes # (test code 0.6 See_Comment [Aut omated message] The = Monocytes #) system which generated this result tra nsmitted reference range : <=0.8. The reference r chuck was not used to int erpret this result as normal/abnormal . [facility]CherjgaZOZRCMDTNO0237-85-04 05:26:00 Test Item Value Reference Range Interpretation Comments Lymphocytes # (test code = Lymphocytes 2.9 1.0-5.5 #) [facility] HospitalMwicepkBRRDFBWZFO2155-39-61 05:26:00 Test Item Value Reference Range Interpretation Comments Segs-Bands # (test code = Segs-Bands #) 3.1 1.5-8.1 [facility] HospitalQdqnzwdXLSYSBNNTW3102-26-13 05:26:00 Test Item Value Reference Range Interpretation Comments Eosinophils (test code = 5.0 See_Comment [A utomated message] The Eosinophils) system which ge nerated this result tra nsmitted reference range : <=4.0. The reference r chuck was not used to int erpret this result as normal/abnormal . [facility] HospitalQozpulpYLKWQFTSJA3179-23-19 05:26:00 Test Item Value Reference Range Interpretation Comments Basophils (test code = 2.2 See_Comment [Aut omated message] The Basophils) system which ge nerated this result tra nsmitted reference range : <=1.0. The reference r chuck was not used to int erpret this result as normal/abnormal . [facility] HospitalNnnajvnLIOIYEKUHX6126-54-65 05:26:00 Test Item Value Reference Range Interpretation Comments Basophils # (test code 0.2 See_Comment [Aut omated message] The = Basophils #) system which generated this result tra nsmitted reference range : <=0.2. The reference r chuck was not used to int erpret this result as normal/abnormal . [facility] HospitalEeeqcfuJLQCUIGCND4827-93-52 05:26:00 Test Item Value Reference Range Interpretation Comments RBC (test code = RBC) 3.64 4.20-5.40 [facility] HospitalAckegirMNTNPTCUXD6794-07-25 05:26:00 Test Item Value Reference Range Interpretation Comments Hgb (test code = Hgb) 11.6 12.0-16.0 [facility] HospitalVrsjuwzLXVAJHKNWV1917-60-57 05:26:00 Test Item Value Reference Range Interpretation Comments Platelet (test code = Platelet) 264 133-450 [facility] HospitalZowmdcfIMTZQQGDRU2531-34-89 05:26:00 Test Item Value Reference Range Interpretation Comments RDW (test code = RDW) 14.0 11.5-14.5 [facility] HospitalAriloqfIQDINWWYHI2466-84-47 05:26:00 Test Item Value Reference Range Interpretation Comments MCHC (test code = MCHC) 32.9 32.0-36.0 [facility] HospitalDdbmggmUWEDOFRXLT9812-92-95 05:26:00 Test Item Value Reference Range Interpretation Comments WBC (test code = WBC) 7.0 3.7-10.4 [facility] HospitalQapvrwfVHSSSKVUJK9516-61-66 05:26:00 Test Item Value Reference Range Interpretation Comments MCV (test code = MCV) 97.0 80.0-98.0 [facility] HospitalEfpzifjMQLVRBBGKU4483-21-96 05:26:00 Test Item Value Reference Range Interpretation Comments MCH (test code = MCH) 31.9 pg 27.0-31.0 [facility] HospitalPanvyvkSZXSWUVLBI6007-81-19 05:26:00 Test Item Value Reference Range Interpretation Comments Hct (test code = Hct) 35.3 36.0-48.0 [facility] HospitalQwsdwvbNJDMLZAOEC1795-58-75 05:26:00 Test Item Value Reference Range Interpretation Comments MPV (test code = MPV) 7.6 7.4-10.4 [facility] AND [id number] 05:26:00 Test Item Value Reference Range Interpretation Comments UA Leuk Est (test Negative (07/19/14 11:26 code = UA Leuk Est) PM) [facility] AND [id number] 05:26:00 Test Item Value Reference Range Interpretation Comments UA Nitrite (test code Negative (07/19/14 11:26 = UA Nitrite) PM) [facility] AND [id number] 05:26:00 Test Item Value Reference Range Interpretation Comments UA pH (test code = UA pH) 6.0 1 5.0-8.0 [facility] AND [id number] 05:26:00 Test Item Value Reference Range Interpretation Comments UA Spec Grav (test >=1.030 *ABN*(07/19/14 code = UA Spec Grav) 11:26 PM) [facility] AND [id number] 05:26:00 Test Item Value Reference Range Interpretation Comments UA Turbidity (test code Slight Cloudy = UA Turbidity) (07/19/14 11:26 PM) [facility] AND [id number] 05:26:00 Test Item Value Reference Range Interpretation Comments UA Color (test code = Yellow *NA*(07/19/14 UA Color) 11:26 PM) [facility] [id number] 05:26:00 Test Item Value Reference Range Interpretation Comments UA Bili (test code = Small *ABN*(07/19/14 UA Bili) 11:26 PM) [facility] [id number] 05:26:00 Test Item Value Reference Range Interpretation Comments UA Protein (test code = Trace *ABN*(07/19/14 UA Protein) 11:26 PM) [facility] [id number] 05:26:00 Test Item Value Reference Range Interpretation Comments UA Ketones (test code = Trace *ABN*(07/19/14 UA Ketones) 11:26 PM) [facility] [id number] 05:26:00 Test Item Value Reference Range Interpretation Comments UA Glucose (test code Negative (07/19/14 11:26 = UA Glucose) PM) [facility] AND [id number] 05:26:00 Test Item Value Reference Range Interpretation Comments UA Sq Epi (test code = UA Sq Epi) Few /LPF [facility] AND [id number] 05:26:00 Test Item Value Reference Range Interpretation Comments UA WBC (test code = UA WBC) 3-5 /HPF [facility] AND [id number] 05:26:00 Test Item Value Reference Range Interpretation Comments UA RBC (test code = 0-2 /HPF See_Comment [Automa mirna message] The UA RBC) system which ge nerated this result tra nsmitted reference range : <=2. The reference range was not used to interpr et this result as zahra l/abnormal. [facility] AND [id number] 05:26:00 Test Item Value Reference Range Interpretation Comments UA Urobilinogen (test code = UA 0.2 0.1-1.0 Urobilinogen) [facility] AND [id number] 05:26:00 Test Item Value Reference Range Interpretation Comments UA Blood (test code = Negative (07/19/14 11:26 UA Blood) PM) [facility] AND [id number] 05:26:00 Test Item Value Reference Range Interpretation Comments UA Bacteria (test code = UA Few /HPF Bacteria) [facility] AND [id number] 05:26:00 Test Item Value Reference Range Interpretation Comments UA Mucus (test code = UA Mucus) Few /LPF [facility]2015-01-23 05:26:00 Test Item Value Reference Range Interpretation Comments eGFR (test code = eGFR) 90 [facility]2015-01-23 05:26:00 Test Item Value Reference Range Interpretation Comments Chloride Lvl (test code = Chloride Lvl) 112 95-109 [facility]2015-01-23 05:26:00 Test Item Value Reference Range Interpretation Comments Creatinine Lvl (test code = Creatinine 0.8 0.5-1.4 Lvl) [facility]2015-01-23 05:26:00 Test Item Value Reference Range Interpretation Comments Potassium Lvl (test code = Potassium 3.8 3.5-5.1 Lvl) [facility]2015-01-23 05:26:00 Test Item Value Reference Range Interpretation Comments BUN (test code = BUN) 19 7-22 [facility]2015-01-23 05:26:00 Test Item Value Reference Range Interpretation Comments Sodium Lvl (test code = Sodium Lvl) 144 135-145 [facility]2015-01-23 05:26:00 Test Item Value Reference Range Interpretation Comments Glucose Lvl (test code = Glucose Lvl) 93 70-99 [facility]2015-01-23 05:26:00 Test Item Value Reference Range Interpretation Comments ALT (test code = ALT) 15 See_Comment [Auto mated message] The system which ge nerated this result transmit mirna reference range : <=65. The reference range was not used to interpr et this result as zahra l/abnormal. [facility]2015-01-23 05:26:00 Test Item Value Reference Range Interpretation Comments Bili Total (test code = Bili Total) 0.1 0.2-1.3 [facility]2015-01-23 05:26:00 Test Item Value Reference Range Interpretation Comments Alk Phos (test code = Alk Phos) 51 39-136 [facility]2015-01-23 05:26:00 Test Item Value Reference Range Interpretation Comments AST (test code = AST) 15 See_Comment [Auto mated message] The system which ge nerated this result transmit mirna reference range : <=37. The reference range was not used to interpr et this result as zahra l/abnormal. [facility]2015-01-23 05:26:00 Test Item Value Reference Range Interpretation Comments CO2 (test code = CO2) - [facility]2015-01-23 05:26:00 Test Item Value Reference Range Interpretation Comments Calcium Lvl (test code = Calcium Lvl) 8.9 8.5-10.5 [facility]2015-01-23 05:26:00 Test Item Value Reference Range Interpretation Comments Total Protein (test code = Total 7.0 6.4-8.4 Protein) [facility]2015-01-23 05:26:00 Test Item Value Reference Range Interpretation Comments Albumin Lvl (test code = Albumin Lvl) 3.7 3.5-5.0 [facility]2015-01-23 05:26:00 Test Item Value Reference Range Interpretation Comments B/C Ratio (test code = B/C Ratio) 12-20 [facility]2015-01-23 05:26:00 Test Item Value Reference Range Interpretation Comments Globulin (test code = Globulin) 3.3 2.0-4.0 [facility]2015-01-23 05:26:00 Test Item Value Reference Range Interpretation Comments A/G Ratio (test code = A/G Ratio) 1.1 0.7-1.6 [facility]2015-01-23 05:26:00 Test Item Value Reference Range Interpretation Comments AGAP (test code = AGAP) 9.8 10.0-20.0 [facility] HospitalCpvbeomUQWQZSHTZF3316-78-31 05:26:00 Test Item Value Reference Range Interpretation Comments Monocytes (test code = Monocytes) 7.8 2.0-12.0 [facility] HospitalKnrqliyVSCZCHGEFY8936-83-57 05:26:00 Test Item Value Reference Range Interpretation Comments Segs (test code = Segs) 44.5 45.0-75.0 [facility] HospitalLltxwzaUXRBPUREHB9703-42-58 05:26:00 Test Item Value Reference Range Interpretation Comments Lymphocytes (test code = Lymphocytes) 40.5 20.0-40.0 [facility] HospitalDwoqmcyKKUMYPFNLQ4843-58-58 05:26:00 Test Item Value Reference Range Interpretation Comments Eosinophils # (test code 0.4 See_Comment [A utomated message] The = Eosinophils #) system wh h generated this result tra nsmitted reference range : <=0.5. The reference r chuck was not used to int erpret this result as normal/abnormal . [facility] HospitalWewvggkSZJSGQDFYW5356-06-63 05:26:00 Test Item Value Reference Range Interpretation Comments Monocytes # (test code 0.6 See_Comment [Aut omated message] The = Monocytes #) system which generated this result tra nsmitted reference range : <=0.8. The reference r chuck was not used to int erpret this result as normal/abnormal . [facility] HospitalZouvqkvCPNERCBEXK7448-88-16 05:26:00 Test Item Value Reference Range Interpretation Comments Lymphocytes # (test code = Lymphocytes 2.9 1.0-5.5 #) [facility] HospitalGlxxifzWVTDKCUDZP2033-08-34 05:26:00 Test Item Value Reference Range Interpretation Comments Segs-Bands # (test code = Segs-Bands #) 3.1 1.5-8.1 [facility] Hospit[id number] 05:26:00 Test Item Value Reference Range Interpretation Comments Eosinophils (test code = 5.0 See_Comment [A utomated message] The Eosinophils) system which ge nerated this result tra nsmitted reference range : <=4.0. The reference r chuck was not used to int erpret this result as normal/abnormal . [facility] HospitalIgpbgioTBHBHKUOJW4729-01-20 05:26:00 Test Item Value Reference Range Interpretation Comments Basophils (test code = 2.2 See_Comment [Aut omated message] The Basophils) system which ge nerated this result tra nsmitted reference range : <=1.0. The reference r chuck was not used to int erpret this result as normal/abnormal . [facility] HospitalCiaddooSNEABZUANS9728-71-34 05:26:00 Test Item Value Reference Range Interpretation Comments Basophils # (test code 0.2 See_Comment [Aut omated message] The = Basophils #) system which generated this result tra nsmitted reference range : <=0.2. The reference r chuck was not used to int erpret this result as normal/abnormal . [facility] HospitalTwbhqrhIFFXJFCKHA6830-03-79 05:26:00 Test Item Value Reference Range Interpretation Comments RBC (test code = RBC) 3.64 4.20-5.40 [facility] HospitalPljsckhJOHCOHDNGQ1654-01-82 05:26:00 Test Item Value Reference Range Interpretation Comments Hgb (test code = Hgb) 11.6 12.0-16.0 [facility] HospitalNermeocQZBDPBWPLV2013-23-36 05:26:00 Test Item Value Reference Range Interpretation Comments Platelet (test code = Platelet) 264 133-450 [facility] HospitalKoehbopYRYAXNZDBM1514-53-03 05:26:00 Test Item Value Reference Range Interpretation Comments RDW (test code = RDW) 14.0 11.5-14.5 [facility] HospitalFtrsryzJIJGLRQGFE9516-10-66 05:26:00 Test Item Value Reference Range Interpretation Comments MCHC (test code = MCHC) 32.9 32.0-36.0 [facility] HospitalMuptfrhLHTZMJLJWZ5878-60-45 05:26:00 Test Item Value Reference Range Interpretation Comments WBC (test code = WBC) 7.0 3.7-10.4 [facility] HospitalEfwlwfcHALXKQBJGK8405-14-59 05:26:00 Test Item Value Reference Range Interpretation Comments MCV (test code = MCV) 97.0 80.0-98.0 [facility] HospitalNqmgeokMFMBCODHKQ9885-66-28 05:26:00 Test Item Value Reference Range Interpretation Comments MCH (test code = MCH) 31.9 pg 27.0-31.0 [facility] HospitalNxxcsrsMFPIGRNKGW7777-43-30 05:26:00 Test Item Value Reference Range Interpretation Comments Hct (test code = Hct) 35.3 36.0-48.0 [facility] HospitalOndnevqQPVGIDYITX6162-02-81 05:26:00 Test Item Value Reference Range Interpretation Comments MPV (test code = MPV) 7.6 7.4-10.4 [facility]2015-01-23 05:26:00 Test Item Value Reference Range Interpretation Comments UA Leuk Est (test Negative (07/19/14 11:26 code = UA Leuk Est) PM) [facility]2015-01-23 05:26:00 Test Item Value Reference Range Interpretation Comments UA Nitrite (test code Negative (07/19/14 11:26 = UA Nitrite) PM) [facility] AND [id number] 05:26:00 Test Item Value Reference Range Interpretation Comments UA pH (test code = UA pH) 6.0 1 5.0-8.0 [facility] AND [id number] 05:26:00 Test Item Value Reference Range Interpretation Comments UA Spec Grav (test >=1.030 *ABN*(07/19/14 code = UA Spec Grav) 11:26 PM) [facility] AND [id number] 05:26:00 Test Item Value Reference Range Interpretation Comments UA Turbidity (test code Slight Cloudy = UA Turbidity) (07/19/14 11:26 PM) [facility] AND [id number] 05:26:00 Test Item Value Reference Range Interpretation Comments UA Color (test code = Yellow *NA*(07/19/14 UA Color) 11:26 PM) [facility] AND [id number] 05:26:00 Test Item Value Reference Range Interpretation Comments UA Bili (test code = Small *ABN*(07/19/14 UA Bili) 11:26 PM) [facility] AND [id number] 05:26:00 Test Item Value Reference Range Interpretation Comments UA Protein (test code = Trace *ABN*(07/19/14 UA Protein) 11:26 PM) [facility] AND [id number] 05:26:00 Test Item Value Reference Range Interpretation Comments UA Ketones (test code = Trace *ABN*(07/19/14 UA Ketones) 11:26 PM) [facility] AND [id number] 05:26:00 Test Item Value Reference Range Interpretation Comments UA Glucose (test code Negative (07/19/14 11:26 = UA Glucose) PM) [facility] AND [id number] 05:26:00 Test Item Value Reference Range Interpretation Comments UA Sq Epi (test code = UA Sq Epi) Few /LPF [facility] AND [id number] 05:26:00 Test Item Value Reference Range Interpretation Comments UA WBC (test code = UA WBC) 3-5 /HPF [facility] AND [id number] 05:26:00 Test Item Value Reference Range Interpretation Comments UA RBC (test code = 0-2 /HPF See_Comment [Automa mirna message] The UA RBC) system which ge nerated this result tra nsmitted reference range : <=2. The reference range was not used to interpr et this result as zahra l/abnormal. [facility] AND [id number] 05:26:00 Test Item Value Reference Range Interpretation Comments UA Urobilinogen (test code = UA 0.2 0.1-1.0 Urobilinogen) [facility] AND [id number] 05:26:00 Test Item Value Reference Range Interpretation Comments UA Blood (test code = Negative (07/19/14 11:26 UA Blood) PM) [facility] AND [id number] 05:26:00 Test Item Value Reference Range Interpretation Comments UA Bacteria (test code = UA Few /HPF Bacteria) [facility] AND [id number] 05:26:00 Test Item Value Reference Range Interpretation Comments UA Mucus (test code = UA Mucus) Few /LPF [facility]2015-01-23 05:26:00 Test Item Value Reference Range Interpretation Comments eGFR (test code = eGFR) 90 [facility]2015-01-23 05:26:00 Test Item Value Reference Range Interpretation Comments Chloride Lvl (test code = Chloride Lvl) 112 95-109 [facility]2015-01-23 05:26:00 Test Item Value Reference Range Interpretation Comments Creatinine Lvl (test code = Creatinine 0.8 0.5-1.4 Lvl) [facility]2015-01-23 05:26:00 Test Item Value Reference Range Interpretation Comments Potassium Lvl (test code = Potassium 3.8 3.5-5.1 Lvl) [facility]2015-01-23 05:26:00 Test Item Value Reference Range Interpretation Comments BUN (test code = BUN) 19 7-22 [facility]2015-01-23 05:26:00 Test Item Value Reference Range Interpretation Comments Sodium Lvl (test code = Sodium Lvl) 144 135-145 [facility]2015-01-23 05:26:00 Test Item Value Reference Range Interpretation Comments Glucose Lvl (test code = Glucose Lvl) 93 70-99 [facility]2015-01-23 05:26:00 Test Item Value Reference Range Interpretation Comments ALT (test code = ALT) 15 See_Comment [Auto mated message] The system which ge nerated this result transmit mirna reference range : <=65. The reference range was not used to interpr et this result as zahra l/abnormal. [facility]2015-01-23 05:26:00 Test Item Value Reference Range Interpretation Comments Bili Total (test code = Bili Total) 0.1 0.2-1.3 [facility]2015-01-23 05:26:00 Test Item Value Reference Range Interpretation Comments Alk Phos (test code = Alk Phos) 51 39-136 [facility]2015-01-23 05:26:00 Test Item Value Reference Range Interpretation Comments AST (test code = AST) 15 See_Comment [Auto mated message] The system which ge nerated this result transmit mirna reference range : <=37. The reference range was not used to interpr et this result as zahra l/abnormal. [facility]2015-01-23 05:26:00 Test Item Value Reference Range Interpretation Comments CO2 (test code = CO2) 26 24-32 [facility]2015-01-23 05:26:00 Test Item Value Reference Range Interpretation Comments Calcium Lvl (test code = Calcium Lvl) 8.9 8.5-10.5 [facility]2015-01-23 05:26:00 Test Item Value Reference Range Interpretation Comments Total Protein (test code = Total 7.0 6.4-8.4 Protein) [facility]2015-01-23 05:26:00 Test Item Value Reference Range Interpretation Comments Albumin Lvl (test code = Albumin Lvl) 3.7 3.5-5.0 [facility]2015-01-23 05:26:00 Test Item Value Reference Range Interpretation Comments B/C Ratio (test code = B/C Ratio) 24 6- [facility]2015-01-23 05:26:00 Test Item Value Reference Range Interpretation Comments Globulin (test code = Globulin) 3.3 2.0-4.0 [facility]2015-01-23 05:26:00 Test Item Value Reference Range Interpretation Comments A/G Ratio (test code = A/G Ratio) 1.1 0.7-1.6 [facility]2015-01-23 05:26:00 Test Item Value Reference Range Interpretation Comments AGAP (test code = AGAP) 9.8 10.0-20.0 [facility] HospitalIqpydtzJSACTXGARZ9683-87-93 05:26:00 Test Item Value Reference Range Interpretation Comments Monocytes (test code = Monocytes) 7.8 2.0-12.0 [facility] HospitalQhevesmZXSLGVMDMS2327-47-83 05:26:00 Test Item Value Reference Range Interpretation Comments Segs (test code = Segs) 44.5 45.0-75.0 [facility] HospitalTczkrdbITCAVKHDHD1012-11-60 05:26:00 Test Item Value Reference Range Interpretation Comments Lymphocytes (test code = Lymphocytes) 40.5 20.0-40.0 [facility] HospitalKjciofnNJOMLAYZLH2608-62-23 05:26:00 Test Item Value Reference Range Interpretation Comments Eosinophils # (test code 0.4 See_Comment [A utomated message] The = Eosinophils #) system whic h generated this result tra nsmitted reference range : <=0.5. The reference r chuck was not used to int erpret this result as normal/abnormal . [facility] HospitalYqbbczcUTDWRLJCLJ2852-94-34 05:26:00 Test Item Value Reference Range Interpretation Comments Monocytes # (test code 0.6 See_Comment [Aut omated message] The = Monocytes #) system which generated this result tra nsmitted reference range : <=0.8. The reference r chuck was not used to int erpret this result as normal/abnormal . [facility] HospitalRpzmsmmLJEKSANORK6107-83-47 05:26:00 Test Item Value Reference Range Interpretation Comments Lymphocytes # (test code = Lymphocytes 2.9 1.0-5.5 #) [facility] HospitalRphgftvGBIHFHNRDX2813-44-06 05:26:00 Test Item Value Reference Range Interpretation Comments Segs-Bands # (test code = Segs-Bands #) 3.1 1.5-8.1 [facility] HospitalVwgfwuvVESPBCMMOY9668-49-43 05:26:00 Test Item Value Reference Range Interpretation Comments Eosinophils (test code = 5.0 See_Comment [A utomated message] The Eosinophils) system which ge nerated this result tra nsmitted reference range : <=4.0. The reference r chuck was not used to int erpret this result as normal/abnormal . [facility] HospitalEncswddMSEETGCUBY6816-90-35 05:26:00 Test Item Value Reference Range Interpretation Comments Basophils (test code = 2.2 See_Comment [Aut omated message] The Basophils) system which ge nerated this result tra nsmitted reference range : <=1.0. The reference r chuck was not used to int erpret this result as normal/abnormal . [facility] HospitalWcvlffrBGTQJLHCUC0471-78-05 05:26:00 Test Item Value Reference Range Interpretation Comments Basophils # (test code 0.2 See_Comment [Aut omated message] The = Basophils #) system which generated this result tra nsmitted reference range : <=0.2. The reference r chuck was not used to int erpret this result as normal/abnormal . [facility] HospitalPfqgotjXAZLAVBDLB5699-59-50 05:26:00 Test Item Value Reference Range Interpretation Comments RBC (test code = RBC) 3.64 4.20-5.40 [facility] [facility]FCQ2981-62-54 05:26:00 Test Item Value Reference Range Interpretation Comments Hgb (test code = Hgb) 11.6 12.0-16.0 [facility]AbgwlnhMXESIYPHAP1372-92-51 05:26:00 Test Item Value Reference Range Interpretation Comments Platelet (test code = Platelet) 264 133-450 [facility] HospitalUgzxjyaNERROQRFTP8536-38-26 05:26:00 Test Item Value Reference Range Interpretation Comments RDW (test code = RDW) 14.0 11.5-14.5 [facility] HospitalDkoreenPEHLHRLALV0657-38-01 05:26:00 Test Item Value Reference Range Interpretation Comments MCHC (test code = MCHC) 32.9 32.0-36.0 [facility] HospitalKqmzssmQKETJVZTQH3556-22-42 05:26:00 Test Item Value Reference Range Interpretation Comments WBC (test code = WBC) 7.0 3.7-10.4 [facility] HospitalVivlxjmPQMDILLKKH7599-39-61 05:26:00 Test Item Value Reference Range Interpretation Comments MCV (test code = MCV) 97.0 80.0-98.0 [facility] HospitalKmvuiapRKCGEJSWKT2476-13-40 05:26:00 Test Item Value Reference Range Interpretation Comments MCH (test code = MCH) 31.9 pg 27.0-31.0 [facility] HospitalNjgtptlTYVDQRYBBX7925-77-74 05:26:00 Test Item Value Reference Range Interpretation Comments Hct (test code = Hct) 35.3 36.0-48.0 [facility] HospitalRykrarrKDTJQIJHMR2118-81-42 05:26:00 Test Item Value Reference Range Interpretation Comments MPV (test code = MPV) 7.6 7.4-10.4 [facility] AND [id number] 05:26:00 Test Item Value Reference Range Interpretation Comments UA Leuk Est (test Negative (07/19/14 11:26 code = UA Leuk Est) PM) [facility] AND [id number] 05:26:00 Test Item Value Reference Range Interpretation Comments UA Nitrite (test code Negative (07/19/14 11:26 = UA Nitrite) PM) [facility] AND [id number] 05:26:00 Test Item Value Reference Range Interpretation Comments UA pH (test code = UA pH) 6.0 1 5.0-8.0 [facility] AND [id number] 05:26:00 Test Item Value Reference Range Interpretation Comments UA Spec Grav (test >=1.030 *ABN*(07/19/14 code = UA Spec Grav) 11:26 PM) [facility] AND [id number] 05:26:00 Test Item Value Reference Range Interpretation Comments UA Turbidity (test code Slight Cloudy = UA Turbidity) (07/19/14 11:26 PM) [facility] AND [id number] 05:26:00 Test Item Value Reference Range Interpretation Comments UA Color (test code = Yellow *NA*(07/19/14 UA Color) 11:26 PM) [facility] AND [id number] 05:26:00 Test Item Value Reference Range Interpretation Comments UA Bili (test code = Small *ABN*(07/19/14 UA Bili) 11:26 PM) [facility] AND [id number] 05:26:00 Test Item Value Reference Range Interpretation Comments UA Protein (test code = Trace *ABN*(07/19/14 UA Protein) 11:26 PM) [facility] AND [id number] 05:26:00 Test Item Value Reference Range Interpretation Comments UA Ketones (test code = Trace *ABN*(07/19/14 UA Ketones) 11:26 PM) [facility] AND [id number] 05:26:00 Test Item Value Reference Range Interpretation Comments UA Glucose (test code Negative (07/19/14 11:26 = UA Glucose) PM) [facility] AND [id number] 05:26:00 Test Item Value Reference Range Interpretation Comments UA Sq Epi (test code = UA Sq Epi) Few /LPF [facility] AND [id number] 05:26:00 Test Item Value Reference Range Interpretation Comments UA WBC (test code = UA WBC) 3-5 /HPF [facility] AND [id number] 05:26:00 Test Item Value Reference Range Interpretation Comments UA RBC (test code = 0-2 /HPF See_Comment [Automa mirna message] The UA RBC) system which ge nerated this result tra nsmitted reference range : <=2. The reference range was not used to interpr et this result as zahra l/abnormal. [facility] AND [id number] 05:26:00 Test Item Value Reference Range Interpretation Comments UA Urobilinogen (test code = UA 0.2 0.1-1.0 Urobilinogen) [facility] AND [id number] 05:26:00 Test Item Value Reference Range Interpretation Comments UA Blood (test code = Negative (07/19/14 11:26 UA Blood) PM) [facility] AND [id number] 05:26:00 Test Item Value Reference Range Interpretation Comments UA Bacteria (test code = UA Few /HPF Bacteria) [facility] AND [id number] 05:26:00 Test Item Value Reference Range Interpretation Comments UA Mucus (test code = UA Mucus) Few /LPF [facility] [id number] 05:26:00 Test Item Value Reference Range Interpretation Comments eGFR (test code = eGFR) 90 [facility] [id number] 05:26:00 Test Item Value Reference Range Interpretation Comments Chloride Lvl (test code = Chloride Lvl) 112 95-109 [facility]2015-01-23 05:26:00 Test Item Value Reference Range Interpretation Comments Creatinine Lvl (test code = Creatinine 0.8 0.5-1.4 Lvl) [facility]2015-01-23 05:26:00 Test Item Value Reference Range Interpretation Comments Potassium Lvl (test code = Potassium 3.8 3.5-5.1 Lvl) [facility]2015-01-23 05:26:00 Test Item Value Reference Range Interpretation Comments BUN (test code = BUN) 19 7-22 [facility]2015-01-23 05:26:00 Test Item Value Reference Range Interpretation Comments Sodium Lvl (test code = Sodium Lvl) 144 135-145 [facility]2015-01-23 05:26:00 Test Item Value Reference Range Interpretation Comments Glucose Lvl (test code = Glucose Lvl) 93 70-99 [facility]2015-01-23 05:26:00 Test Item Value Reference Range Interpretation Comments ALT (test code = ALT) 15 See_Comment [Auto mated message] The system which ge nerated this result transmit mirna reference range : <=65. The reference range was not used to interpr et this result as zahra l/abnormal. [place] [id number] 05:26:00 Test Item Value Reference Range Interpretation Comments Bili Total (test code = Bili Total) 0.1 0.2-1.3 [facility]2015-01-23 05:26:00 Test Item Value Reference Range Interpretation Comments Alk Phos (test code = Alk Phos) 51 39-136 [facility]2015-01-23 05:26:00 Test Item Value Reference Range Interpretation Comments AST (test code = AST) 15 See_Comment [Auto mated message] The system which ge nerated this result transmit mirna reference range : <=37. The reference range was not used to interpr et this result as zahra l/abnormal. [facility]2015-01-23 05:26:00 Test Item Value Reference Range Interpretation Comments CO2 (test code = CO2) 26 24-32 [place] 307945-01-23 05:26:00 Test Item Value Reference Range Interpretation Comments Calcium Lvl (test code = Calcium Lvl) 8.9 8.5-10.5 [facility]2015-01-23 05:26:00 Test Item Value Reference Range Interpretation Comments Total Protein (test code = Total 7.0 6.4-8.4 Protein) [facility]2015-01-23 05:26:00 Test Item Value Reference Range Interpretation Comments Albumin Lvl (test code = Albumin Lvl) 3.7 3.5-5.0 [facility]2015-01-23 05:26:00 Test Item Value Reference Range Interpretation Comments B/C Ratio (test code = B/C Ratio) 24 6-25 [facility]2015-01-23 05:26:00 Test Item Value Reference Range Interpretation Comments Globulin (test code = Globulin) 3.3 2.0-4.0 [facility]2015-01-23 05:26:00 Test Item Value Reference Range Interpretation Comments A/G Ratio (test code = A/G Ratio) 1.1 0.7-1.6 [facility]2015-01-23 05:26:00 Test Item Value Reference Range Interpretation Comments AGAP (test code = AGAP) 9.8 10.0-20.0 [facility] HospitalUtuokuaXUCWKRHMPK0515-06-71 05:26:00 Test Item Value Reference Range Interpretation Comments Monocytes (test code = Monocytes) 7.8 2.0-12.0 [facility] HospitalJkgpkhdMIQKLNVCBM5702-88-37 05:26:00 Test Item Value Reference Range Interpretation Comments Segs (test code = Segs) 44.5 45.0-75.0 [facility] HospitalOmlybrgUKAQOPLJQV5106-96-15 05:26:00 Test Item Value Reference Range Interpretation Comments Lymphocytes (test code = Lymphocytes) 40.5 20.0-40.0 [facility] HospitalLtnahrlGSQDRJJCZZ3539-05-08 05:26:00 Test Item Value Reference Range Interpretation Comments Eosinophils # (test code 0.4 See_Comment [A utomated message] The = Eosinophils #) system ic h generated this result tra nsmitted reference range : <=0.5. The reference r chuck was not used to int erpret this result as normal/abnormal . [facility] HospitalXlzzhghVELPFYROXB7405-73-84 05:26:00 Test Item Value Reference Range Interpretation Comments Monocytes # (test code 0.6 See_Comment [Aut omated message] The = Monocytes #) system which generated this result tra nsmitted reference range : <=0.8. The reference r chuck was not used to int erpret this result as normal/abnormal . [facility] HospitalYgqkpgmKGYSTLFHYV6887-30-35 05:26:00 Test Item Value Reference Range Interpretation Comments Lymphocytes # (test code = Lymphocytes 2.9 1.0-5.5 #) [facility] HospitalCngxmyoHGSODMNCRE4728-55-31 05:26:00 Test Item Value Reference Range Interpretation Comments Segs-Bands # (test code = Segs-Bands #) 3.1 1.5-8.1 [facility] HospitalJfjahhwSMPUDGQBTT8239-89-29 05:26:00 Test Item Value Reference Range Interpretation Comments Eosinophils (test code = 5.0 See_Comment [A utomated message] The Eosinophils) system which ge nerated this result tra nsmitted reference range : <=4.0. The reference r chuck was not used to int erpret this result as normal/abnormal . [facility] HospitalXgndfdcYGQGKAVVRS4902-61-27 05:26:00 Test Item Value Reference Range Interpretation Comments Basophils (test code = 2.2 See_Comment [Aut omated message] The Basophils) system which ge nerated this result tra nsmitted reference range : <=1.0. The reference r chuck was not used to int erpret this result as normal/abnormal . [facility] HospitalYapsrsuHOCXQTCYPM0467-52-44 05:26:00 Test Item Value Reference Range Interpretation Comments Basophils # (test code 0.2 See_Comment [Aut omated message] The = Basophils #) system which generated this result tra nsmitted reference range : <=0.2. The reference r chuck was not used to int erpret this result as normal/abnormal . [facility] HospitalWbcrlntFZZOHDMMDM3104-99-83 05:26:00 Test Item Value Reference Range Interpretation Comments RBC (test code = RBC) 3.64 4.20-5.40 [facility] HospitalAvyqxqmTQKALPRQEV4004-96-94 05:26:00 Test Item Value Reference Range Interpretation Comments Hgb (test code = Hgb) 11.6 12.0-16.0 [facility] HospitalDqwzfakZNMSKPLITY1182-66-24 05:26:00 Test Item Value Reference Range Interpretation Comments Platelet (test code = Platelet) 264 133-450 [facility] HospitalFfgoqnuYJDOKKATJW0235-02-90 05:26:00 Test Item Value Reference Range Interpretation Comments RDW (test code = RDW) 14.0 11.5-14.5 [facility] HospitalYomywvcIKQJCQSCRJ2290-64-86 05:26:00 Test Item Value Reference Range Interpretation Comments MCHC (test code = MCHC) 32.9 32.0-36.0 [facility] HospitalAzbgykzADKXENMMAA2350-83-41 05:26:00 Test Item Value Reference Range Interpretation Comments WBC (test code = WBC) 7.0 3.7-10.4 [facility] HospitalRdvzearRSCBOUPPZC9006-35-72 05:26:00 Test Item Value Reference Range Interpretation Comments MCV (test code = MCV) 97.0 80.0-98.0 [facility] HospitalHuueuwsXESQZTDGGD8582-07-66 05:26:00 Test Item Value Reference Range Interpretation Comments MCH (test code = MCH) 31.9 pg 27.0-31.0 [facility] HospitalOepcxeuCDZFRBWLSD9300-80-32 05:26:00 Test Item Value Reference Range Interpretation Comments Hct (test code = Hct) 35.3 36.0-48.0 [facility] HospitalAcldhcuPWMAQCJQDX7782-63-24 05:26:00 Test Item Value Reference Range Interpretation Comments MPV (test code = MPV) 7.6 7.4-10.4 [facility] AND [id number] 05:26:00 Test Item Value Reference Range Interpretation Comments UA Leuk Est (test Negative (07/19/14 11:26 code = UA Leuk Est) PM) [facility] AND [id number] 05:26:00 Test Item Value Reference Range Interpretation Comments UA Nitrite (test code Negative (07/19/14 11:26 = UA Nitrite) PM) [facility] AND [id number] 05:26:00 Test Item Value Reference Range Interpretation Comments UA pH (test code = UA pH) 6.0 1 5.0-8.0 [facility] AND [id number] 05:26:00 Test Item Value Reference Range Interpretation Comments UA Spec Grav (test >=1.030 *ABN*(07/19/14 code = UA Spec Grav) 11:26 PM) [facility] AND [id number] 05:26:00 Test Item Value Reference Range Interpretation Comments UA Turbidity (test code Slight Cloudy = UA Turbidity) (07/19/14 11:26 PM) [facility] AND [id number] 05:26:00 Test Item Value Reference Range Interpretation Comments UA Color (test code = Yellow *NA*(07/19/14 UA Color) 11:26 PM) [facility] AND [id number] 05:26:00 Test Item Value Reference Range Interpretation Comments UA Bili (test code = Small *ABN*(07/19/14 UA Bili) 11:26 PM) [facility] AND [id number] 05:26:00 Test Item Value Reference Range Interpretation Comments UA Protein (test code = Trace *ABN*(07/19/14 UA Protein) 11:26 PM) [facility] AND [id number] 05:26:00 Test Item Value Reference Range Interpretation Comments UA Ketones (test code = Trace *ABN*(07/19/14 UA Ketones) 11:26 PM) [facility] AND [id number] 05:26:00 Test Item Value Reference Range Interpretation Comments UA Glucose (test code Negative (07/19/14 11:26 = UA Glucose) PM) [facility] AND [id number] 05:26:00 Test Item Value Reference Range Interpretation Comments UA Sq Epi (test code = UA Sq Epi) Few /LPF [facility] AND [id number] 05:26:00 Test Item Value Reference Range Interpretation Comments UA WBC (test code = UA WBC) 3-5 /HPF [facility] AND [id number] 05:26:00 Test Item Value Reference Range Interpretation Comments UA RBC (test code = 0-2 /HPF See_Comment [Automa mirna message] The UA RBC) system which ge nerated this result tra nsmitted reference range : <=2. The reference range was not used to interpr et this result as zahra l/abnormal. [facility] AND [id number] 05:26:00 Test Item Value Reference Range Interpretation Comments UA Urobilinogen (test code = UA 0.2 0.1-1.0 Urobilinogen) [facility] AND [id number] 05:26:00 Test Item Value Reference Range Interpretation Comments UA Blood (test code = Negative (07/19/14 11:26 UA Blood) PM) [facility] AND [id number] 05:26:00 Test Item Value Reference Range Interpretation Comments UA Bacteria (test code = UA Few /HPF Bacteria) [facility] AND [id number] 05:26:00 Test Item Value Reference Range Interpretation Comments UA Mucus (test code = UA Mucus) Few /LPF [facility]2015-01-23 05:26:00 Test Item Value Reference Range Interpretation Comments eGFR (test code = eGFR) 90 [facility]2015-01-23 05:26:00 Test Item Value Reference Range Interpretation Comments Chloride Lvl (test code = Chloride Lvl) 112 95-109 [facility]2015-01-23 05:26:00 Test Item Value Reference Range Interpretation Comments Creatinine Lvl (test code = Creatinine 0.8 0.5-1.4 Lvl) [facility]2015-01-23 05:26:00 Test Item Value Reference Range Interpretation Comments Potassium Lvl (test code = Potassium 3.8 3.5-5.1 Lvl) [facility]2015-01-23 05:26:00 Test Item Value Reference Range Interpretation Comments BUN (test code = BUN) 19 7-22 [facility]2015-01-23 05:26:00 Test Item Value Reference Range Interpretation Comments Sodium Lvl (test code = Sodium Lvl) 144 135-145 [facility]2015-01-23 05:26:00 Test Item Value Reference Range Interpretation Comments Glucose Lvl (test code = Glucose Lvl) 93 70-99 [facility]2015-01-23 05:26:00 Test Item Value Reference Range Interpretation Comments ALT (test code = ALT) 15 See_Comment [Auto mated message] The system which ge nerated this result transmit mirna reference range : <=65. The reference range was not used to interpr et this result as zahra l/abnormal. [facility]2015-01-23 05:26:00 Test Item Value Reference Range Interpretation Comments Bili Total (test code = Bili Total) 0.1 0.2-1.3 [facility]2015-01-23 05:26:00 Test Item Value Reference Range Interpretation Comments Alk Phos (test code = Alk Phos) 51 39-136 [facility]2015-01-23 05:26:00 Test Item Value Reference Range Interpretation Comments AST (test code = AST) 15 See_Comment [Auto mated message] The system which ge nerated this result transmit mirna reference range : <=37. The reference range was not used to interpr et this result as zahra l/abnormal. [facility]2015-01-23 05:26:00 Test Item Value Reference Range Interpretation Comments CO2 (test code = CO2) - [facility]2015-01-23 05:26:00 Test Item Value Reference Range Interpretation Comments Calcium Lvl (test code = Calcium Lvl) 8.9 8.5-10.5 [facility]2015-01-23 05:26:00 Test Item Value Reference Range Interpretation Comments Total Protein (test code = Total 7.0 6.4-8.4 Protein) [facility]2015-01-23 05:26:00 Test Item Value Reference Range Interpretation Comments Albumin Lvl (test code = Albumin Lvl) 3.7 3.5-5.0 [facility]2015-01-23 05:26:00 Test Item Value Reference Range Interpretation Comments B/C Ratio (test code = B/C Ratio) 19 12- [facility]2015-01-23 05:26:00 Test Item Value Reference Range Interpretation Comments Globulin (test code = Globulin) 3.3 2.0-4.0 [facility]2015-01-23 05:26:00 Test Item Value Reference Range Interpretation Comments A/G Ratio (test code = A/G Ratio) 1.1 0.7-1.6 [facility]2015-01-23 05:26:00 Test Item Value Reference Range Interpretation Comments AGAP (test code = AGAP) 9.8 10.0-20.0 [facility] Ho[id number] 05:26:00 Test Item Value Reference Range Interpretation Comments Monocytes (test code = Monocytes) 7.8 2.0-12.0 [facility] HospitalIcaqlnzUJLWYJPKBR1247-28-02 05:26:00 Test Item Value Reference Range Interpretation Comments Segs (test code = Segs) 44.5 45.0-75.0 [facility] HospitalQjuieytWXGQCIVSLD1535-34-16 05:26:00 Test Item Value Reference Range Interpretation Comments Lymphocytes (test code = Lymphocytes) 40.5 20.0-40.0 [facility] HospitalQyeaqxnCFQGSDSWIM3080-65-85 05:26:00 Test Item Value Reference Range Interpretation Comments Eosinophils # (test code 0.4 See_Comment [A utomated message] The = Eosinophils #) system whic h generated this result tra nsmitted reference range : <=0.5. The reference r chuck was not used to int erpret this result as normal/abnormal . [facility] HospitalTipotiiDATWZUSFOS0990-85-24 05:26:00 Test Item Value Reference Range Interpretation Comments Monocytes # (test code 0.6 See_Comment [Aut omated message] The = Monocytes #) system which generated this result tra nsmitted reference range : <=0.8. The reference r chuck was not used to int erpret this result as normal/abnormal . [facility] HospitalLfktspgRTHUONYGRZ7592-65-84 05:26:00 Test Item Value Reference Range Interpretation Comments Lymphocytes # (test code = Lymphocytes 2.9 1.0-5.5 #) [facility] HospitalMpowmbaZACUNWLOME2258-72-82 05:26:00 Test Item Value Reference Range Interpretation Comments Segs-Bands # (test code = Segs-Bands #) 3.1 1.5-8.1 [facility] HospitalNjiuhoaYXAFCHWWSS2142-91-46 05:26:00 Test Item Value Reference Range Interpretation Comments Eosinophils (test code = 5.0 See_Comment [A utomated message] The Eosinophils) system which ge nerated this result tra nsmitted reference range : <=4.0. The reference r chuck was not used to int erpret this result as normal/abnormal . [facility] HospitalRenorvzBLXEGRREXD4770-31-30 05:26:00 Test Item Value Reference Range Interpretation Comments Basophils (test code = 2.2 See_Comment [Aut omated message] The Basophils) system which ge nerated this result tra nsmitted reference range : <=1.0. The reference r chuck was not used to int erpret this result as normal/abnormal . [facility] HospitalHlwubgbNNZCHRLKHA3790-82-43 05:26:00 Test Item Value Reference Range Interpretation Comments Basophils # (test code 0.2 See_Comment [Aut omated message] The = Basophils #) system which generated this result tra nsmitted reference range : <=0.2. The reference r chuck was not used to int erpret this result as normal/abnormal . [facility] HospitalPrpzgytFGLEAGOAGR8422-05-24 05:26:00 Test Item Value Reference Range Interpretation Comments RBC (test code = RBC) 3.64 4.20-5.40 [place] 095125-01-23 05:26:00 Test Item Value Reference Range Interpretation Comments Hgb (test code = Hgb) 11.6 12.0-16.0 [facility] HospitalBqbpebxNDNVVBUXZY5405-45-74 05:26:00 Test Item Value Reference Range Interpretation Comments Platelet (test code = Platelet) 264 133-450 [facility] HospitalPupkctlNRHDGOFMXB0042-56-77 05:26:00 Test Item Value Reference Range Interpretation Comments RDW (test code = RDW) 14.0 11.5-14.5 [facility] HospitalXiuphlcJEPVHVYIAQ9109-68-10 05:26:00 Test Item Value Reference Range Interpretation Comments MCHC (test code = MCHC) 32.9 32.0-36.0 [facility] HospitalLiwktywRSGNTPLNLH5705-43-60 05:26:00 Test Item Value Reference Range Interpretation Comments WBC (test code = WBC) 7.0 3.7-10.4 [facility] HospitalQjowtqjYUGHAIHDGU6362-25-51 05:26:00 Test Item Value Reference Range Interpretation Comments MCV (test code = MCV) 97.0 80.0-98.0 [facility] HospitalVhqvieoTBQBRBENQM4677-14-55 05:26:00 Test Item Value Reference Range Interpretation Comments MCH (test code = MCH) 31.9 pg 27.0-31.0 [facility] HospitalKkfbagpOZXNNRJBNR1849-31-28 05:26:00 Test Item Value Reference Range Interpretation Comments Hct (test code = Hct) 35.3 36.0-48.0 [facility] HospitalEdsdyuwCKNQIYQNNU4587-99-28 05:26:00 Test Item Value Reference Range Interpretation Comments MPV (test code = MPV) 7.6 7.4-10.4 [facility]2015-01-23 05:26:00 Test Item Value Reference Range Interpretation Comments UA Leuk Est (test Negative (07/19/14 11:26 code = UA Leuk Est) PM) [facility] AND [id number] 05:26:00 Test Item Value Reference Range Interpretation Comments UA Nitrite (test code Negative (07/19/14 11:26 = UA Nitrite) PM) [facility] [facility] AND [id number] 05:26:00 Test Item Value Reference Range Interpretation Comments UA pH (test code = UA pH) 6.0 1 5.0-8.0 [facility]2015-01-23 05:26:00 Test Item Value Reference Range Interpretation Comments UA Spec Grav (test >=1.030 *ABN*(07/19/14 code = UA Spec Grav) 11:26 PM) [facility] AND [id number] 05:26:00 Test Item Value Reference Range Interpretation Comments UA Turbidity (test code Slight Cloudy = UA Turbidity) (07/19/14 11:26 PM) [facility] AND [id number] 05:26:00 Test Item Value Reference Range Interpretation Comments UA Color (test code = Yellow *NA*(07/19/14 UA Color) 11:26 PM) [facility] AND [id number] 05:26:00 Test Item Value Reference Range Interpretation Comments UA Bili (test code = Small *ABN*(07/19/14 UA Bili) 11:26 PM) [facility] AND [id number] 05:26:00 Test Item Value Reference Range Interpretation Comments UA Protein (test code = Trace *ABN*(07/19/14 UA Protein) 11:26 PM) [facility] AND [id number] 05:26:00 Test Item Value Reference Range Interpretation Comments UA Ketones (test code = Trace *ABN*(07/19/14 UA Ketones) 11:26 PM) [facility] AND [id number] 05:26:00 Test Item Value Reference Range Interpretation Comments UA Glucose (test code Negative (07/19/14 11:26 = UA Glucose) PM) [facility] AND [id number] 05:26:00 Test Item Value Reference Range Interpretation Comments UA Sq Epi (test code = UA Sq Epi) Few /LPF [facility] AND [id number] 05:26:00 Test Item Value Reference Range Interpretation Comments UA WBC (test code = UA WBC) 3-5 /HPF [facility] AND [id number] 05:26:00 Test Item Value Reference Range Interpretation Comments UA RBC (test code = 0-2 /HPF See_Comment [Automa mirna message] The UA RBC) system which ge nerated this result tra nsmitted reference range : <=2. The reference range was not used to interpr et this result as zahra l/abnormal. [facility] AND [id number] 05:26:00 Test Item Value Reference Range Interpretation Comments UA Urobilinogen (test code = UA 0.2 0.1-1.0 Urobilinogen) [facility] AND [id number] 05:26:00 Test Item Value Reference Range Interpretation Comments UA Blood (test code = Negative (07/19/14 11:26 UA Blood) PM) [facility] AND [id number] 05:26:00 Test Item Value Reference Range Interpretation Comments UA Bacteria (test code = UA Few /HPF Bacteria) [facility] AND [id number] 05:26:00 Test Item Value Reference Range Interpretation Comments UA Mucus (test code = UA Mucus) Few /LPF [facility]2015-01-23 05:26:00 Test Item Value Reference Range Interpretation Comments eGFR (test code = eGFR) 90 [facility]2015-01-23 05:26:00 Test Item Value Reference Range Interpretation Comments Chloride Lvl (test code = Chloride Lvl) 112 95-109 [facility]2015-01-23 05:26:00 Test Item Value Reference Range Interpretation Comments Creatinine Lvl (test code = Creatinine 0.8 0.5-1.4 Lvl) [facility]2015-01-23 05:26:00 Test Item Value Reference Range Interpretation Comments Potassium Lvl (test code = Potassium 3.8 3.5-5.1 Lvl) [facility]2015-01-23 05:26:00 Test Item Value Reference Range Interpretation Comments BUN (test code = BUN) 19 7-22 [facility]2015-01-23 05:26:00 Test Item Value Reference Range Interpretation Comments Sodium Lvl (test code = Sodium Lvl) 144 135-145 [facility]2015-01-23 05:26:00 Test Item Value Reference Range Interpretation Comments Glucose Lvl (test code = Glucose Lvl) 93 70-99 [facility]2015-01-23 05:26:00 Test Item Value Reference Range Interpretation Comments ALT (test code = ALT) 15 <=65 [facility]2015-01-23 05:26:00 Test Item Value Reference Range Interpretation Comments Bili Total (test code = Bili Total) 0.1 0.2-1.3 [facility]2015-01-23 05:26:00 Test Item Value Reference Range Interpretation Comments Alk Phos (test code = Alk Phos) 51 39-136 [facility]2015-01-23 05:26:00 Test Item Value Reference Range Interpretation Comments AST (test code = AST) 15 <=37 [facility]2015-01-23 05:26:00 Test Item Value Reference Range Interpretation Comments CO2 (test code = CO2) 26 24-32 [facility]2015-01-23 05:26:00 Test Item Value Reference Range Interpretation Comments Calcium Lvl (test code = Calcium Lvl) 8.9 8.5-10.5 [facility]2015-01-23 05:26:00 Test Item Value Reference Range Interpretation Comments Total Protein (test code = Total 7.0 6.4-8.4 Protein) [facility]2015-01-23 05:26:00 Test Item Value Reference Range Interpretation Comments Albumin Lvl (test code = Albumin Lvl) 3.7 3.5-5.0 [facility]2015-01-23 05:26:00 Test Item Value Reference Range Interpretation Comments B/C Ratio (test code = B/C Ratio) 24 6- [facility]2015-01-23 05:26:00 Test Item Value Reference Range Interpretation Comments Globulin (test code = Globulin) 3.3 2.0-4.0 [facility]2015-01-23 05:26:00 Test Item Value Reference Range Interpretation Comments A/G Ratio (test code = A/G Ratio) 1.1 0.7-1.6 [facility]2015-01-23 05:26:00 Test Item Value Reference Range Interpretation Comments AGAP (test code = AGAP) 9.8 10.0-20.0 [id number] 05:26:00 Test Item Value Reference Range Interpretation Comments Monocytes (test code = Monocytes) 7.8 2.0-12.0 [id number] 05:26:00 Test Item Value Reference Range Interpretation Comments Segs (test code = Segs) 44.5 45.0-75.0 [place] [id number] 05:26:00 Test Item Value Reference Range Interpretation Comments Lymphocytes (test code = Lymphocytes) 40.5 20.0-40.0 [id number] 05:26:00 Test Item Value Reference Range Interpretation Comments Eosinophils # (test code = Eosinophils 0.4 <=0.5 #) [id number] 05:26:00 Test Item Value Reference Range Interpretation Comments Monocytes # (test code = Monocytes #) 0.6 <=0.8 [facility] Hos[id number] 05:26:00 Test Item Value Reference Range Interpretation Comments Lymphocytes # (test code = Lymphocytes 2.9 1.0-5.5 #) [facility] Ho[id number] 05:26:00 Test Item Value Reference Range Interpretation Comments Segs-Bands # (test code = Segs-Bands #) 3.1 1.5-8.1 [facility] Hos[id number] 05:26:00 Test Item Value Reference Range Interpretation Comments Eosinophils (test code = Eosinophils) 5.0 <=4.0 [facility] Hos[id number] 05:26:00 Test Item Value Reference Range Interpretation Comments Basophils (test code = Basophils) 2.2 <=1.0 [facility] Ho[id number] 05:26:00 Test Item Value Reference Range Interpretation Comments Basophils # (test code = Basophils #) 0.2 <=0.2 [facility] Hos[id number] 05:26:00 Test Item Value Reference Range Interpretation Comments RBC (test code = RBC) 3.64 4.20-5.40 [facility] HospitalEqxxhlmUASQRESDYK0931-21-33 05:26:00 Test Item Value Reference Range Interpretation Comments Hgb (test code = Hgb) 11.6 12.0-16.0 [facility] H[id number] 05:26:00 Test Item Value Reference Range Interpretation Comments Platelet (test code = Platelet) 264 770-450 [facility] Hos[id number] 05:26:00 Test Item Value Reference Range Interpretation Comments RDW (test code = RDW) 14.0 11.5-14.5 [facility] Hos[id number] 05:26:00 Test Item Value Reference Range Interpretation Comments MCHC (test code = MCHC) 32.9 32.0-36.0 [facility] HospitalWylgfvnYMCUSKWMHD3814-49-07 05:26:00 Test Item Value Reference Range Interpretation Comments WBC (test code = WBC) 7.0 3.7-10.4 [facility] HospitalAgbtvjwEMRTZLMVPW3289-15-31 05:26:00 Test Item Value Reference Range Interpretation Comments MCV (test code = MCV) 97.0 80.0-98.0 [facility] Ho[id number] 05:26:00 Test Item Value Reference Range Interpretation Comments MCH (test code = MCH) 31.9 pg 27.0-31.0 [facility] H[id number] 05:26:00 Test Item Value Reference Range Interpretation Comments Hct (test code = Hct) 35.3 36.0-48.0 [facility] H[id number] 05:26:00 Test Item Value Reference Range Interpretation Comments MPV (test code = MPV) 7.6 7.4-10.4 [facility] AND [id number] 05:26:00 Test Item Value Reference Range Interpretation Comments UA Leuk Est (test Negative (07/19/14 11:26 code = UA Leuk Est) PM) [facility] AND [id number] 05:26:00 Test Item Value Reference Range Interpretation Comments UA Nitrite (test code Negative (07/19/14 11:26 = UA Nitrite) PM) [facility] AND [id number] 05:26:00 Test Item Value Reference Range Interpretation Comments UA pH (test code = UA pH) 6.0 1 5.0-8.0 [facility] AND [id number] 05:26:00 Test Item Value Reference Range Interpretation Comments UA Spec Grav (test >=1.030 *ABN*(07/19/14 code = UA Spec Grav) 11:26 PM) [facility] AND [id number] 05:26:00 Test Item Value Reference Range Interpretation Comments UA Turbidity (test code Slight Cloudy = UA Turbidity) (07/19/14 11:26 PM) [facility] AND [id number] 05:26:00 Test Item Value Reference Range Interpretation Comments UA Color (test code = Yellow *NA*(07/19/14 UA Color) 11:26 PM) [facility] [id number] 05:26:00 Test Item Value Reference Range Interpretation Comments UA Bili (test code = Small *ABN*(07/19/14 UA Bili) 11:26 PM) [facility] [id number] 05:26:00 Test Item Value Reference Range Interpretation Comments UA Protein (test code = Trace *ABN*(07/19/14 UA Protein) 11:26 PM) [facility] [id number] 05:26:00 Test Item Value Reference Range Interpretation Comments UA Ketones (test code = Trace *ABN*(07/19/14 UA Ketones) 11:26 PM) [facility] [id number] 05:26:00 Test Item Value Reference Range Interpretation Comments UA Glucose (test code Negative (07/19/14 11:26 = UA Glucose) PM) [facility] AND [id number] 05:26:00 Test Item Value Reference Range Interpretation Comments UA Sq Epi (test code = UA Sq Epi) Few /LPF [facility] AND [id number] 05:26:00 Test Item Value Reference Range Interpretation Comments UA WBC (test code = UA WBC) 3-5 /HPF [facility] AND [id number] 05:26:00 Test Item Value Reference Range Interpretation Comments UA RBC (test code = UA RBC) 0-2 /HPF <=2 [facility] AND [id number] 05:26:00 Test Item Value Reference Range Interpretation Comments UA Urobilinogen (test code = UA 0.2 0.1-1.0 Urobilinogen) [facility] AND [id number] 05:26:00 Test Item Value Reference Range Interpretation Comments UA Blood (test code = Negative (07/19/14 11:26 UA Blood) PM) [facility] AND [id number] 05:26:00 Test Item Value Reference Range Interpretation Comments UA Bacteria (test code = UA Few /HPF Bacteria) [facility] AND [id number] 05:26:00 Test Item Value Reference Range Interpretation Comments UA Mucus (test code = UA Mucus) Few /LPF [facility]
[2023-05-12] MEDS ORDERED: DIAZEPAM 10 MG/2 ML INJ SYRINGE ONE (00:13)
[2023-05-12 00:31] LABS: Absolute Lymphocytes (CBC) 1.3 K/uL (0.7-4.9); Hematocrit 35.8 % (36.0-45.0); Lymphocytes % 5.8 % (15.3-44.8); MCV 97.8 fL (80-100); MPV 7.5 fL (7.6-11.3); Platelets 272 thou/uL (152-406); RBC Red Blood Cell Count 3.66 M/uL (3.86-4.86)
[2023-05-12 00:41] LABS: Albumin 3.8 g/dL (3.4-5.0); Bilirubin Total 0.4 mg/dL (0.2-1.0); C-Reactive Protein 4.84 mg/L (<3.00); Potassium 3.1 mEq/L (3.5-5.1); Protein, Total 7.4 g/dL (6.4-8.2)
[2023-05-12 01:30] LABS: Blood Morphology Comment NOT SEEN (NOT SEEN); Platelet Estimate ADEQ
[2023-05-12] MEDS ORDERED: HYDROMORPHONE HCL 1 MG/ML INJ ONE (01:44)
[2023-05-12] MEDS ORDERED: KCL 20 MEQ/100 mL IVPB 100 ML IV ONE (01:44)
[2023-05-12] MEDS ORDERED: D5.45NS W/KCL 20MEQ 1,000 ML IV ONE (01:45)
--- NOTE | 2023-05-12 01:57 | P.HP ---
Certification for Inpatient Patient admitted to: Inpatient With expected LOS: <2 Midnights Patient will require the following post-hospital care: None Practitioner: I am a practitioner with admitting privileges, knowledge of patient current condition, hospital course, and medical plan of care. Services: Services provided to patient in accordance with Admission requirements found in Title 42 Section 412.3 of the Code of Federal Regulations Patient History Date of Service: 05/12/23 Reason for admission: Colitis History of Present Illness: Ms. Garcia is a 52-year-old female with past medical history of hypertension, migraines, and anxiety who presented to the emergency department via EMS with complaints of progressively worsening abdominal pain for 1 week. She states that she had been constipated until she took a laxative last night and has had a lot of diarrhea today. She was worked up in the emergency department and her labs revealed a white blood cell count of 22 with associated left shift, mild hypokalemia of 3.1, and CRP 4.84. CT abdomen pelvis showed "long segment wall thickening and pericolonic stranding spanning from the transverse to the rectosigmoid colon, consistent with colitis." She does report recent antibiotic use. Blood cultures were obtained in the emergency department and she was given IV pain medication as well as IV antibiotics. She will be admitted for further management of colitis. Allergies sumatriptan [From Imitrex] Allergy (Verified 10/07/19 16:20) Hives Home medications list reviewed: Yes Home Medications: Citalopram Hydrobromide [Celexa] 40 mg PO BEDTIME 10/07/19 Gabapentin 600 mg PO BIDP PRN 10/07/19 Trazodone [Desyrel*] 200 mg PO BEDTIME 10/07/19 Alprazolam [Xanax] 2 mg PO BID PRN #6 10/12/19 carvediloL [Coreg*] 25 mg PO BID tab 10/12/19 cloNIDine HCL [Catapres*] 0.3 mg PO TID tablet 10/12/19 Rizatriptan Benzoate [Rizatriptan] 10 mg PO DAILY PRN 05/08/22 Topiramate [Topamax] 50 mg PO DAILY PRN 05/08/22 Ondansetron [Ondansetron Odt] 4 mg PO Q8H PRN 7 Days #20 tab 05/09/22 Promethazine Tab [Phenergan] 12.5 mg PO Q8H PRN 7 Days #20 tab 05/09/22 - Past Medical/Surgical History Diabetic: No -: Hypertension -: Migraine -: Back pain Past Surgical History: Patient denies surgical history Psychosocial/ Personal History: Patient lives at home with her son - Family History Father -: Hypertension, Other (see notes) Notes: migraines Mother -: Hypertension, Other (see notes) Notes: migraines - Social History Smoking Status: Current every day smoker Smoking therapy provided: Yes (Nicotine patch) Patient receptive to therapy: Yes Alcohol use: No CD- Drugs: No Caffeine use: Yes Place of Residence: Home Review of Systems 10-point ROS is otherwise unremarkable Gastrointestinal: Nausea, Vomiting, Abdominal Pain, Diarrhea, Constipation Physical Examination - Vital Signs Temperature: 98.3 F Blood Pressure: 112/81 Pulse: 86 Respirations: 16 Pulse Ox (%): 99 - Physical Exam General: Alert, In no apparent distress HEENT: Atraumatic, EOMI, Sclerae nonicteric Neck: Supple, JVD not distended Respiratory: Clear to auscultation bilaterally, Normal air movement Cardiovascular: Regular rate/rhythm, Normal S1 S2 Gastrointestinal: Normal bowel sounds, No tenderness Musculoskeletal: No tenderness Integumentary: No rashes Neurological: Normal speech, Normal affect - Studies Laboratory Data (last 24 hrs) 05/11/23 05/11/23 23:55 23:55 WBC 22.80 H Hgb 12.2 Hct 35.8 L Plt Count 272 Sodium 138 Potassium 3.1 L BUN 17 Creatinine 0.99 Glucose 167 H Total Bilirubin 0.4 AST 16 ALT 14 Alkaline Phosphatase 97 Lipase 19 Assessment and Plan - Problems (Diagnosis) (1) Colitis Current Visit: Yes Status: Acute (2) Hypokalemia Current Visit: Yes Status: Acute (3) Hypertension Current Visit: Yes Status: Chronic Qualifiers: Hypertension type: primary hypertension Qualified Code(s): I10 - Essential (primary) hypertension - Plan Patient is admitted for further management of colitis. Continue IV Rocephin and Flagyl. Blood cultures obtained in the emergency department. Obtain stool cultures and C. difficile antigen. Patient does report recent antibiotic usage. Clear liquid diet, IV hydration, potassium replacement. Pain medications and antiemetics as needed. Patient states she is an everyday smoker but is trying to quit. NicoDerm patch provided. Lovenox for VTE prophylaxis. Full code. Discharge Plan: Home Plan to discharge in: 48 Hours - Advance Directives Does patient have a Living Will: No Does patient have a Durable POA for Healthcare: No - Code Status/Comfort Care Code Status Assessed: Yes Code Status: Full Code Physician Review: Patient Assessed, Agree with Above Assessment and Plan Critical Care: No Time Spent Managing Pts Care (In Minutes): 50
--- NOTE | 2023-05-12 02:01 | EDPHYS ---
Physician Documentation [facility] Name: Margie Garcia Age: 52 yrs Sex: Female : 1970 Arrival Date: 05/11/2023 Time: 23:35 Bed 20 Private MD: ED Physician Tevin Celis HPI: 05/11 23:42 This 52 yrs old Female presents to ER via Unassigned with complaints of sp4 Abdominal pain, vomiting, diarrhea . 05/12 01:51 Very pleasant 52-year-old female presents with EMS with moderate to severe lower sp4 abdominal pain associated with vomiting and diarrhea.. . 01:52 Patient states she had 1 week worth of constipation prior to last evening when she took sp4 a laxative and developed profuse watery nonbloody diarrhea. Patient developed nausea and vomiting and worsening abdominal pain. Patient states that 1 week ago she completed a course of p.o. penicillin for dental infections. Also about 6 months ago patient has completed course of p.o. clindamycin also for dental infections. . 01:52 Patient's medications include -citalopram 40 mg bedtime, gabapentin 600 mg twice a day, sp4 trazodone 200 mg bedtime, Xanax 2 mg p.o. twice daily, carvedilol 25 mg p.o. twice daily, clonidine 0.3 mg 3 times daily, rizatriptan 10 mg p.o. daily as needed, topiramate 50 mg p.o. daily as needed, ondansetron 4 mg every 8 hours as needed, promethazine 12.5 mg p.o. every 8 hours as needed. 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 - Social history:: Smoking status: unknown. - Family history:: not pertinent. ROS: 01:52 Constitutional: Negative for fever, chills, and weight loss, Abdomen/GI: Positive lower sp4 abdominal pain positive diarrhea positive vomiting. 01:52 All other systems are negative, Exam: 01:52 Constitutional: This is a well developed, well nourished patient who is awake, alert, sp4 positive acute distress secondary to pain, uncomfortable appearing female, ill-appearing generalized pallor. Nontoxic hypertensive on arrival. Head/Face: Normocephalic, atraumatic. Eyes: Pupils equal round and reactive to light, extra-ocular motions intact. Lids and lashes normal. Conjunctiva and sclera are not injected. Cornea within normal limits. Periorbital areas with no swelling, redness, or edema. ENT: Nares patent. No nasal discharge, no septal abnormalities noted. Tympanic membranes are normal and external auditory canals are clear. Oropharynx with no redness, swelling, or masses, exudates, or evidence of obstruction, uvula midline. Mucous membranes moist. Neck: Trachea midline, no thyromegaly or masses palpated, and no cervical lymphadenopathy. Supple, full range of motion without nuchal rigidity, or vertebral point tenderness. Chest/axilla: Normal chest wall appearance and motion. Nontender with no deformity. No lesions are appreciated. Cardiovascular: Regular rate and rhythm with a normal S1 and S2. No gallops, murmurs, or rubs. Normal PMI, no JVD. No pulse deficits. Respiratory: Lungs have equal breath sounds bilaterally, clear to auscultation and percussion. No rales, rhonchi or wheezes noted. No increased work of breathing, no retractions or nasal flaring. Abdomen/GI: Soft, with normal bowel sounds. No distension or tympany. No guarding or rebound. Positive for moderate diffuse abdominal tenderness that is moderate to severe Back: No spinal tenderness. No costovertebral tenderness. Skin: Warm, dry with normal turgor. Normal color with no rashes, no lesions, and no evidence of cellulitis. MS/ Extremity: Pulses equal, no cyanosis. Neurovascular intact. Full, normal range of motion. Neuro: Awake and alert, GCS 15, oriented to person, place, time, and situation. Cranial nerves II-XII grossly intact. Motor strength 5/5 in all extremities. Sensory grossly intact. Psych: Awake, alert, with orientation to person, place and time. Behavior, mood, and affect are within normal limits Vital Signs: 05/11 23:50 BP 183 / 108; Pulse 67; Resp 18; Temp 98.3; Pulse Ox 100% on 3 lpm NC; Pain 10/10; km8 05/12 00:00 BP 160 / 96; Pulse 78; Resp 18; Pulse Ox 96% on R/A; km8 01:12 BP 112 / 81; Pulse 86; Resp 16; Pulse Ox 99% on R/A; km8 02:00 BP 131 / 91; Pulse 82; Resp 16; Pulse Ox 100% ; km8 02:30 BP 137 / 97; Pulse 87; Resp 16; Pulse Ox 100% on R/A; km8 05/11 23:50 Pain Scale: Adult km8 Gene Coma Score: 05/11 23:50 Eye Response: spontaneous(4). Motor Response: obeys commands(6). Verbal Response: km8 oriented(5). Total: 15. MDM: 05/12 00:11 Patient medically screened. sp4 01:30 ED course: CT report - CT of the abdomen and pelvis [with] intravenous contrast. All CT sp4 scans at this facility use dose modulation, iterative reconstruction, and/or weight based dosing when appropriate to reduce radiation dose to as low as reasonably achievable. COMPARISON: CT abdomen pelvis 05/07/2022. FINDINGS: Lower thorax: Lung bases are clear Abdomen: Stomach:Within normal limits Liver:Scattered subcentimeter hypodensities, too small to characterize. No intrahepatic ductal distention. Gallbladder:Nondistended Pancreas:Within normal limits Spleen:Within normal limits Right kidney:No hydronephrosis. Multiple renal stones. Inferior pole 10 mm hypodensity, likely cyst. Left kidney:No hydronephrosis. Multiple renal stones. Adrenal glands:Within normal limits Vascular structures:Atherosclerosis of the abdominal aorta and major branches. Nodes:No lymphadenopathy by size criteria Pelvis: Small bowel:No significant distention. Appendix:Within normal limits Colon:Long segment wall thickening and pericolonic stranding spanning from the transverse to the rectosigmoid colon. Peritoneum: No free intraperitoneal fluid or air. Bones: No acute bone findings. Bladder: Unremarkable. Reproductive organs: No acute findings. IMPRESSION: 1. Long segment wall thickening and pericolonic stranding spanning from the transverse to the rectosigmoid colon, consistent with colitis. 2. Bilateral nephrolithiasis. No hydronephrosis.. 01:52 Differential Diagnosis altered mental status, sepsis, flu. Data reviewed: vital signs, sp4 nurses notes, EMS record, old medical records, lab test result(s), CBC, electrolytes, Flu: negative hepatic panel, radiologic studies, CT scan. Consideration of Admission/Observation Patient was admitted/placed on observation. Escalation of care including admission/observation considered. Management of patient was discussed with the following: Hospitalist: Discussed with admission team. ED course: CT revealed significant colitis and there is associated elevated white count 22,000. ED course: Patient may have C. difficile colitis associated with recent antibiotic use. Patient warrants admission for IV hydration pain and nausea control and IV antibiotic management with IV Flagyl. Patient may benefit from p.o. vancomycin we will defer this to the admission team. . 05/11 23:41 Order name: CBC with Diff; Complete Time: 02:00 [facility] 05/11 23:41 Order name: CMP; Complete Time: 01:26 [facility] 05/11 23:41 Order name: Lipase; Complete Time: 01:26 [facility] 05/11 23:41 Order name: Urinalysis w/ reflexes [facility] 05/11 23:41 Order name: CRP; Complete Time: 01:26 [facility] 05/11 23:42 Order name: COVID-19 SARS RT PCR; Complete Time: 01:26 [facility] 05/12 00:44 Order name: Manual Differential; Complete Time: 02:00 EDMS 05/12 01:27 Order name: Blood Culture Adult (2) [facility] 05/12 02:01 Order name: Influenza Screen (a \T\ B) [facility] 05/11 23:41 Order name: CT Abd/Pelvis - IV Contrast Only [facility] 05/11 23:41 Order name: IV Saline Lock; Complete Time: 23:41 [facility] 05/11 23:41 Order name: Labs collected and sent; Complete Time: 23:58 sp4 Administered Medications: 05/11 23:57 Drug: NS 0.9% IV 1000 ml IV at 1 bolus Per protocol; 1000 mL bolus Route: IV; Rate: 1 km8 bolus; Site: right antecubital; 05/12 01:13 Follow up: IV Status: Completed infusion; IV Intake: 1000ml km8 05/11 23:57 Drug: Famotidine IVP 20 mg IVP once; dilute with 10 mL 0.9% NaCl; give over 2 minutes km8 Route: IVP; Site: right antecubital; 05/12 01:13 Follow up: Response: No adverse reaction [facility] 05/11 23:57 Drug: TORadol - Ketorolac IVP 30 mg IVP once Route: IVP; Site: right antecubital; [facility] 05/12 01:13 Follow up: Response: No adverse reaction [facility] 05/11 23:57 Drug: metoCLOPramide IVP 10 mg IVP once; over 1 to 2 minutes Route: IVP; Site: right 8 antecubital; 05/12 01:13 Follow up: Response: No adverse reaction [facility] 05/11 23:58 Drug: morphine IVP or IV 8 mg IVP once over 4 mins Route: IVP; Infused Over: 4 mins; 8 Site: right antecubital; 05/12 01:13 Follow up: Response: No adverse reaction 8 00:11 Drug: NS 0.9% IV 1000 ml IV at 125 ml/hr continuous Route: IV; Rate: 125 ml/hr; Site: [facility] right antecubital; 03:01 Follow up: IV Status: Infusion continued upon admission 8 00:11 Drug: Diazepam IVP 5 mg IVP once Route: IVP; Site: right antecubital; km8 01:13 Follow up: Response: No adverse reaction km8 01:28 CANCELLED (Duplicate Order): d5-1/2 ns with kcl20 meq/l 1000 ml IV at 100 ml/hr sp4 continuous 01:38 Drug: HYDROmorphone IVP 1 mg IVP once Route: IVP; Site: right antecubital; km8 01:54 Follow up: Response: No adverse reaction; Pain is decreased km8 01:53 Drug: metroNIDAZOLE IVPB 500 mg 100 ml IVPB at 200 ml/hr once over 30 mins Volume: 100 km8 ml; Route: IVPB; Rate: 200 ml/hr; Infused Over: 30 mins; Site: right antecubital; 03:01 Follow up: IV Status: Completed infusion; IV Intake: 100ml 8 02:15 Drug: Rocephin - Rocephin (cefTRIAXone) IVPB 1 grams IVPB once over 30 mins; (mix in 50 km8 mL NS) Route: IVPB; Infused Over: 30 mins; Site: right antecubital; 03:01 Follow up: IV Status: Completed infusion; IV Intake: 50ml 8 02:18 Drug: Nicoderm CQ Transdermal Patch 21 mg/24 hr 1 patches Transdermal once {Note: right km8 deltoid.} Route: Transdermal; Site: affected area; 03:01 Drug: Potassium Chloride IV 20 mEq IV at calculated rate once; administer over 1-2 km8 hours Route: IV; Rate: calculated rate; Site: right antecubital; 03:01 Follow up: IV Status: Infusion continued upon admission km8 03:01 Drug: D5-1/2 NS with KCl IV 20 mEq/L 1000 ml IV at 100 ml/hr continuous Route: IV; km8 Rate: 100 ml/hr; Site: right antecubital; 03:01 Follow up: IV Status: Infusion continued upon admission km8 Disposition Summary: 05/12/23 02:00 Hospitalization Ordered Notes: Hospitalization Status: Inpatient Admission sp4 Provider: Harvey Peck Location: Telemetry/MedSur (Inpatient) sp4 Condition: Fair sp4 Problem: new sp4 Symptoms: have improved sp4 Bed/Room Type: Standard sp4 Room Assignment: 201(05/12/23 02:02) cg Diagnosis - Left sided colitis without complications sp4 - Acute bacterial colitis sp4 Forms: - Medication Reconciliation Form sp4 - SBAR form sp4 - Leadership Thank You Letter sp4 Signatures: Dispatcher [employer] Erin San RN RN Eva Diane PA-C PA-C sb4 Tevin Celis MD MD sp4 Karla Vargas RN RN km8 Corrections: (The following items were deleted from the chart) 01:28 01:28 D5-1/2 NS with KCl IV 20 mEq/L 1000 ml IV at 100 ml/hr continuous ordered. sp4 sp4 02:02 02:00 sp4 cg
--- NOTE | 2023-05-12 02:01 | ER ---
Nurse's Notes [facility] Name: Margie Garcia Age: 52 yrs Sex: Female : 1970 Arrival Date: 05/11/2023 Time: 23:35 Bed 20 Private MD: Diagnosis: Left sided colitis without complications;Acute bacterial colitis Presentation: 05/11 23:50 Chief complaint: EMS states: called out for abdominal pain after taking a laxative; pt km8 reported constipation for 1 week to EMS; pt also had vomiting today. 23:50 Coronavirus screen: Client denies travel out of the [place] in the last 14 days. Ebola km8 Screen: No symptoms or risks identified at this time. Initial Sepsis Screen: Does the patient meet any 2 criteria? No. Patient's initial sepsis screen is negative. Does the patient have a suspected source of infection? No. Patient's initial sepsis screen is negative. Risk Assessment: Do you want to hurt yourself or someone else? Patient reports no desire to harm self or others. Onset of symptoms was May 11, 2023. Care prior to arrival: Medication(s) given: zofran 8 mg, Fentanyl 100 mcg. 23:50 Method Of Arrival: EMS km8 23:50 Acuity: BHARAT 3 km8 Triage Assessment: 23:50 General: Appears uncomfortable, Behavior is appropriate for age, anxious, crying, km8 restless. 23:50 Pain: Complains of pain in abdomen Pain currently is 10 out of 10 on a pain scale. km8 Quality of pain is described as crampy. EENT: No signs and/or symptoms were reported regarding the EENT system. Neuro: Level of Consciousness is awake, alert, obeys commands, Oriented to person, place, time, situation. Cardiovascular: Denies chest pain, shortness of breath, Capillary refill < 3 seconds Patient's skin is warm and dry. Respiratory: Airway is patent Respiratory effort is even, unlabored, Respiratory pattern is regular, symmetrical. GI: Abdomen is non-distended, Bowel sounds hyperactive in right upper quadrant, left upper quadrant, right lower quadrant and left lower quadrant Reports cramping, nausea, vomiting. : No signs and/or symptoms were reported regarding the genitourinary system. Derm: Skin is intact, is healthy with good turgor, Skin is dry, Skin is pink, warm \T\ dry. normal, Skin temperature is warm. Musculoskeletal: No signs and/or symptoms reported regarding the musculoskeletal system. Range of motion: intact in all extremities. 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 - Social history:: Smoking status: unknown. - Family history:: not pertinent. Screenin/14 23:50 [facility] ED Fall Risk Assessment (Adult) History of falling in the last 3 months, km8 including since admission No falls in past 3 months (0 pts) Confusion or Disorientation No (0 pts) Intoxicated or Sedated No (0 pts) Impaired Gait No (0 pts) Mobility Assist Device Used No (0 pt) Altered Elimination No (0 pt) Score/Fall Risk Level 0 - 2 = Low Risk Oriented to surroundings, Maintained a safe environment, Educated pt \T\ family on fall prevention, incl call for assistance when getting out of bed, Assessed \T\ reinforced patient's understanding of fall precautions. Abuse screen: Denies threats or abuse. Denies injuries from another. Nutritional screening: No deficits noted. Tuberculosis screening: No symptoms or risk factors identified. Assessment: 23:50 General: see triage assessment/notes. Pain: Complains of pain in abdomen Pain currently km8 is 10 out of 10 on a pain scale. Quality of pain is described as crampy. 05/12 01:00 Reassessment: Patient appears in no apparent distress at this time. Patient and/or km8 family updated on plan of care and expected duration. Pain level reassessed. Patient is alert, oriented x 3, equal unlabored respirations, skin warm/dry/pink. pt reports pain still present but not as intense as before the medication. Vital Signs: 05/11 23:50 BP 183 / 108; Pulse 67; Resp 18; Temp 98.3; Pulse Ox 100% on 3 lpm NC; Pain 10/10; km8 11/15 00:00 BP 160 / 96; Pulse 78; Resp 18; Pulse Ox 96% on R/A; km8 01:12 BP 112 / 81; Pulse 86; Resp 16; Pulse Ox 99% on R/A; km8 02:00 BP 131 / 91; Pulse 82; Resp 16; Pulse Ox 100% ; km8 02:30 BP 137 / 97; Pulse 87; Resp 16; Pulse Ox 100% on R/A; km8 05/11 23:50 Pain Scale: Adult km8 Gene Coma Score: 05/11 23:50 Eye Response: spontaneous(4). Motor Response: obeys commands(6). Verbal Response: km8 oriented(5). Total: 15. ED Course: 23:36 Patient arrived in ED. sb4 23:40 Tevin Celis MD is Attending Physician. sp4 23:40 Karla Vargas RN is Primary Nurse. km8 23:50 Maintain EMS IV. Dressing intact. Good blood return noted. Site clean \T\ dry. Gauge \T\ km 8 site: 20g right AC. Patient maintains SpO2 saturation greater than 95% on room air. 23:50 Arm band placed on right wrist. km8 23:50 Patient has correct armband on for positive identification. Placed in gown. Bed in low km8 position. Call light in reach. Side rails up X2. Client placed on continuous cardiac and pulse oximetry monitoring. NIBP monitoring applied. 05/12 00:11 COVID-19 SARS RT PCR Sent. km8 00:19 Triage completed. km8 00:24 Door closed. Noise minimized. Lights dimmed. Warm blanket given. Cleaned of km8 incontinence. Linen changed. 01:09 CT Abd/Pelvis - IV Contrast Only In Process Unspecified. EDMS 01:54 Blood Culture Adult (2) Sent. km8 01:59 Harvey Peck is Hospitalizing Provider. sp4 02:18 Influenza Screen (a \T\ B) Sent. km8 02:35 No provider procedures requiring assistance completed. km8 02:35 Patient admitted, IV remains in place. km8 03:05 Provided Education on: admission process. km8 Administered Medications: 05/11 23:57 Drug: NS 0.9% IV 1000 ml IV at 1 bolus Per protocol; 1000 mL bolus Route: IV; Rate: 1 km8 bolus; Site: right antecubital; 05/12 01:13 Follow up: IV Status: Completed infusion; IV Intake: 1000ml [facility] 05/11 23:57 Drug: Famotidine IVP 20 mg IVP once; dilute with 10 mL 0.9% NaCl; give over 2 minutes km8 Route: IVP; Site: right antecubital; 05/12 01:13 Follow up: Response: No adverse reaction [facility] 05/11 23:57 Drug: TORadol - Ketorolac IVP 30 mg IVP once Route: IVP; Site: right antecubital; [facility] 05/12 01:13 Follow up: Response: No adverse reaction [facility] 05/11 23:57 Drug: metoCLOPramide IVP 10 mg IVP once; over 1 to 2 minutes Route: IVP; Site: right [facility] antecubital; 05/12 01:13 Follow up: Response: No adverse reaction [facility] 05/11 23:58 Drug: morphine IVP or IV 8 mg IVP once over 4 mins Route: IVP; Infused Over: 4 mins; [facility] Site: right antecubital; 05/12 01:13 Follow up: Response: No adverse reaction 00:11 Drug: NS 0.9% IV 1000 ml IV at 125 ml/hr continuous Route: IV; Rate: 125 ml/hr; Site: [facility] right antecubital; 03:01 Follow up: IV Status: Infusion continued upon admission 00:11 Drug: Diazepam IVP 5 mg IVP once Route: IVP; Site: right antecubital; 8 01:13 Follow up: Response: No adverse reaction 8 01:28 CANCELLED (Duplicate Order): d5-1/2 ns with kcl20 meq/l 1000 ml IV at 100 ml/hr sp4 continuous 01:38 Drug: HYDROmorphone IVP 1 mg IVP once Route: IVP; Site: right antecubital; km8 01:54 Follow up: Response: No adverse reaction; Pain is decreased 8 01:53 Drug: metroNIDAZOLE IVPB 500 mg 100 ml IVPB at 200 ml/hr once over 30 mins Volume: 100 km8 ml; Route: IVPB; Rate: 200 ml/hr; Infused Over: 30 mins; Site: right antecubital; 03:01 Follow up: IV Status: Completed infusion; IV Intake: 100ml km8 02:15 Drug: Rocephin - Rocephin (cefTRIAXone) IVPB 1 grams IVPB once over 30 mins; (mix in 50 km8 mL NS) Route: IVPB; Infused Over: 30 mins; Site: right antecubital; 03:01 Follow up: IV Status: Completed infusion; IV Intake: 50ml km8 02:18 Drug: Nicoderm CQ Transdermal Patch 21 mg/24 hr 1 patches Transdermal once {Note: right km8 deltoid.} Route: Transdermal; Site: affected area; 03:01 Drug: Potassium Chloride IV 20 mEq IV at calculated rate once; administer over 1-2 km8 hours Route: IV; Rate: calculated rate; Site: right antecubital; 03:01 Follow up: IV Status: Infusion continued upon admission km8 03:01 Drug: D5-1/2 NS with KCl IV 20 mEq/L 1000 ml IV at 100 ml/hr continuous Route: IV; km8 Rate: 100 ml/hr; Site: right antecubital; 03:01 Follow up: IV Status: Infusion continued upon admission km8 Medication: 02:35 VIS not applicable for this client. km8 Intake: 01:13 IV: 1000ml; Total: 1000ml. km8 03:01 IV: 50ml; Total: 1050ml. km8 03:01 IV: 100ml; Total: 1150ml. km8 Outcome: 02:00 Decision to Hospitalize by Provider. sp4 03:05 Admitted to Med/surg accompanied by tech, family with patient, via stretcher, room 201, km8 with chart, Report called to MARCK Rivera 03:05 Condition: good 03:05 Discharge instructions given to patient, family, Instructed on the need for admit, Demonstrated understanding of instructions, 03:06 Patient left the ED. km8 Signatures: Dispatcher [employer] EDMS Eva Toledo PA-C PA-C sb4 Tevin Celis MD MD sp4 Karla Vargas RN RN km8 Corrections: (The following items were deleted from the chart) 00:22 00:22 General: see triage assessment/notes. km8 km8 00:22 00:22 Pain: Complains of pain in abdomen Pain currently is 10 out of 10 on a pain km8 scale. Quality of pain is described as crampy, km8
[2023-05-12] MEDS ORDERED: NICOTINE 21 MG/PAT TD ONE (02:28)
[2023-05-12 03:29] LABS: Urine Bilirubin NEGATIVE (Negative); Urine Blood Negative (Negative); Urine Clarity Clear (Clear); Urine Color Yellow (Yellow); Urine Glucose NEGATIVE (Negative); Urine Protein NEGATIVE (Negative); Urine Urobilinogen Normal (Normal)
[2023-05-12 03:30] LABS: Specific Gravity > 1.035 (1.005-1.030)
[2023-05-12] MEDS: D5.45NS W/KCL 20MEQ 1,000 ML IV SCH ×3 (03:41→23:08)
[2023-05-12] MEDS ORDERED: ACETAMINOPHEN 500 MG TAB PO PRN (03:41)
[2023-05-12] MEDS: HYDROMORPHONE HCL 1 MG/ML INJ IV PRN ×4 (04:13→18:53)
[2023-05-12 07:00] LABS: Absolute Lymphocytes (CBC) 1.1 K/uL (0.7-4.9); Hematocrit 30.6 % (36.0-45.0); Lymphocytes % 9.1 % (15.3-44.8); MPV 7.4 fL (7.6-11.3); Platelets 194 thou/uL (152-406); RBC Red Blood Cell Count 3.09 M/uL (3.86-4.86)
[2023-05-12 07:15] LABS: Potassium 4.3 mEq/L (3.5-5.1)
[2023-05-12 07:53] LABS: Blood Morphology Comment NOT SEEN (NOT SEEN); Platelet Estimate ADEQ; White Blood Cell Scan OK (OK)
[2023-05-12] MEDS ORDERED: INFLUENZA VACCINE (for 6+ mo) 0.5 ML DOSE IMVAC ONE (08:00)
[2023-05-12] MEDS: CEFTRIAXONE 1,000 MG in NA CHLORIDE 0.9% 50 ML IVPB SCH (09:44)
[2023-05-12] MEDS: METRONIDAZOLE 500mg IVPB 500 MG/100 ML BAG IV SCH ×2 (09:45→17:44)
[2023-05-12] MEDS: ENOXAPARIN 40 MG/0.4 ML SQ SCH (09:45)
[2023-05-12] MEDS: ONDANSETRON 4 MG/2 ML VIAL IV PRN ×2 (12:57→20:51)
--- NOTE | 2023-05-12 13:14 | P.PN ---
Date of Service: 05/12/23 Patient seen and examined. No diarrhea since admit so she could not provide sample for stool testing. She still reports nausea and abdominal pain. No recorded fever. Plan: Continue antibiotics Supportive measures-antiemetics as needed IV hydration. Clear liquid diet and advance as tolerated.
[2023-05-12] MEDS ORDERED: ALPRAZOLAM 2 MG PO PRN (13:15)
[2023-05-12] MEDS: CLONIDINE HCL 0.3 MG TAB PO SCH ×2 (13:47→20:39)
--- NOTE | 2023-05-12 14:17 | RAD REPORT ---
EXAM DESCRIPTION: CT - Abdomen Pelvis W Contrast - 05/12/2023 4:59 am CLINICAL HISTORY: 52 years Female; abd pain, constipation; IV ONLY Bed Name: 20 TECHNIQUE: CT of the abdomen and pelvis with intravenous contrast. All CT scans at this facility use dose modulation, iterative reconstruction, and/or weight based dosi ng when appropriate to reduce radiation dose to as low as reasonably achievable. COMPARISON: CT abdomen pelvis 05/07/2022. FINDINGS: Lower thorax: Lung bases are clear Abdomen: Stomach: Within normal limits Liver: Scattered subcentimeter hypodensities, too small to characterize. No intrahepatic ductal diste ntion. Gallbladder: Nondistended Pancreas: Within normal limits Spleen: Within normal limits Right kidney: No hydronephrosis. Multiple renal stones. Inferior pole 10 mm hypodensity, likely cyst. Left kidney: No hydronephrosis. Multiple renal stones. Adrenal glands: Within normal limits Vascular structures: Atherosclerosis of the abdominal aorta and major branches. Nodes: No lymphadenopathy by size criteria Pelvis: Small bowel: No significant distention. Appendix: Within normal limits Colon: Long segment wall thickening and pericolonic stranding spanning from the transverse to the rec tosigmoid colon. Peritoneum: No free intraperitoneal fluid or air. Bones: No acute bone findings. Bladder: Unremarkable. Reproductive organs: No acute findings. IMPRESSION: 1. Long segment wall thickening and pericolonic stranding spanning from the transverse to the rectosigmoid colon, consistent with colitis. 2. Bilateral nephrolithiasis. No hydronephrosis. Electronically signed by: Panda Puri MD 05/12/2023 01:19 AM NANNY/HOUSEHOLD MANAGER Due to temporary technical issues with the PACS/Fluency reporting system, reports are being signed by the in house radiologist without review as a courtesy to ensure prompt reporting. The interpreting r adiologist is fully responsible for the content of the report.
[2023-05-12] MEDS: ALPRAZOLAM 1 MG TABLET PO PRN (15:05)
[2023-05-12] MEDS ORDERED: LORazepam 2 MG/ML VIAL ONE (17:18)
[2023-05-12] MEDS ORDERED: MORPHINE 2 MG/ML SYR ONE (17:27)
[2023-05-12] MEDS: HYDRALAZINE HCL 20 MG/ML VIAL IV PRN (17:38)
[2023-05-12] MEDS ORDERED: SODIUM CHLORIDE 0.9% 10ML INJ IV PRN (18:35)
--- NOTE | 2023-05-12 18:39 | P.PN ---
Rapid response was called on the patient. Patient has been without had seizures. Patient was having generalized body shaking but she was awake during the events and complaining of pain in the epigastric area. Pseudoseizures suspected. Blood pressure severely elevated with systolic above 190. No hypoglycemia Plan: Continue antibiotics Supportive measures-antiemetics as needed IV hydration. Patient given IV Ativan for anxiety. Also given IV morphine for pain. Patient eventually calm down. Trial of IV Protonix. Clear liquid diet and advance as tolerated.
[2023-05-12] MEDS: PANTOPRAZOLE 40 MG INJ IVP SCH (20:39)
[2023-05-12] MEDS: TRAZODONE 150 MG TAB PO SCH (20:40)
[2023-05-12] MEDS: TRAZODONE 50 MG TABLET PO SCH (20:41)
[2023-05-12] MEDS: carvediloL 25 MG TAB PO SCH (20:41)
[2023-05-12] MEDS: MORPHINE 2 MG/ML SYR IV PRN (20:51)
[2023-05-12] MEDS ORDERED: PROMETHAZINE INJ 25 MG/ML AMP IV ONE (22:45)
[2023-05-12] MEDS ORDERED: HYDROMORPHONE HCL 0.5 MG/0.5 ML INJ IV ONE (22:45)
[2023-05-13] MEDS: METRONIDAZOLE 500mg IVPB 500 MG/100 ML BAG IV SCH ×3 (00:56→17:44)
[2023-05-13] MEDS: NICOTINE 21 MG/PAT TD SCH ×2 (01:16→09:00)
[2023-05-13] MEDS: MORPHINE 2 MG/ML SYR IV PRN ×5 (01:35→19:47)
[2023-05-13] MEDS: ONDANSETRON 4 MG/2 ML VIAL IV PRN (02:19)
[2023-05-13] MEDS ORDERED: HYDROMORPHONE HCL 0.5 MG/0.5 ML INJ IV ONE (03:29)
[2023-05-13] MEDS: PROMETHAZINE INJ 25 MG/ML AMP IV PRN ×3 (03:49→12:50)
[2023-05-13] MEDS: PANTOPRAZOLE 40 MG INJ IVP SCH ×2 (05:34→21:27)
[2023-05-13] MEDS: METOCLOPRAMIDE 10 MG/2mL INJ IV SCH (05:42)
[2023-05-13 07:08] LABS: Absolute Lymphocytes (CBC) 1.1 K/uL (0.7-4.9); Hematocrit 33.2 % (36.0-45.0); Lymphocytes % 7.5 % (15.3-44.8); MCV 97.6 fL (80-100); MPV 7.8 fL (7.6-11.3); Platelets 256 thou/uL (152-406); RBC Red Blood Cell Count 3.41 M/uL (3.86-4.86)
[2023-05-13 07:18] LABS: Magnesium 1.9 mg/dL (1.6-2.4); Potassium 3.2 mEq/L (3.5-5.1)
[2023-05-13 07:21] LABS: Phosphorus 1.5 mg/dL (2.5-4.9)
[2023-05-13] MEDS ORDERED: POTASSIUM PHOS IN 0.9 % NACL 15 MMOL/250 ML BAG IV ONE (08:00)
[2023-05-13] MEDS: D5.45NS W/KCL 20MEQ 1,000 ML IV SCH ×2 (08:58→23:01)
[2023-05-13] MEDS: CEFTRIAXONE 1,000 MG in NA CHLORIDE 0.9% 50 ML IVPB SCH (08:59)
[2023-05-13] MEDS: ENOXAPARIN 40 MG/0.4 ML SQ SCH ×2 (08:59→09:00)
[2023-05-13] MEDS: CLONIDINE HCL 0.3 MG TAB PO SCH ×3 (09:00→21:27)
[2023-05-13] MEDS: carvediloL 25 MG TAB PO SCH ×2 (09:01→21:27)
[2023-05-13] MEDS: ALPRAZOLAM 1 MG TABLET PO PRN (09:18)
[2023-05-13 09:31] LABS: Blood Morphology Comment NOT SEEN (NOT SEEN); Platelet Estimate ADEQ; White Blood Cell Scan OK (OK)
--- NOTE | 2023-05-13 11:26 | RAD REPORT ---
EXAM DESCRIPTION: RAD - Abdomen Single View - 05/13/2023 10:22 am CLINICAL HISTORY: abd pain COMPARISON: Abdomen Pelvis W Contrast dated 05/12/2023 FINDINGS: Nonobstructive bowel gas pattern. No acute osseous abnormality.Visualized lungs are unrema rkable.No abnormal calcifications. IMPRESSION: Nonobstructive bowel gas pattern.
[2023-05-13] MEDS: HYDRALAZINE HCL 20 MG/ML VIAL IV PRN (11:59)
[2023-05-13] MEDS ORDERED: MAGNES/ALUMIN/SIMET 30ML UCUP PO PRN (12:43)
--- NOTE | 2023-05-13 12:43 | P.PN ---
Subjective Date of Service: 05/13/23 Chief Complaint: Colitis Patient reports intermittent nausea. No diarrhea today Blood pressure intermittently severely elevated. She complains of epigastric pain. Physical Examination - Vital Signs Temperature: 98.7 F Blood Pressure: 153/98 Pulse: 100 Respirations: 20 Pulse Ox (%): 99 - Physical Exam General: Alert, In no apparent distress, Other (Anxious) HEENT: PERRLA, Mucous membr. moist/pink, Sclerae nonicteric Neck: Supple, JVD not distended Respiratory: Clear to auscultation bilaterally, Normal air movement Cardiovascular: No edema, Normal S1 S2, Other (Tachycardia, regular rhythm.) Gastrointestinal: Normal bowel sounds, Soft and benign, Non-distended, No tenderness Musculoskeletal: No swelling, No warmth Integumentary: No rashes, No cyanosis Neurological: Normal speech, Normal strength at 5/5 x4 extr, Cranial nerves 3-12 intact Assessment And Plan - Current Problems (Diagnosis) (1) Colitis Current Visit: Yes Status: Acute (2) Hypokalemia Current Visit: Yes Status: Acute (3) Hypertension Current Visit: Yes Status: Chronic Qualifiers: Hypertension type: primary hypertension Qualified Code(s): I10 - Essential (primary) hypertension (4) Abdominal pain Current Visit: No Status: Acute (5) Intractable nausea and vomiting Current Visit: No Status: Acute - Plan Intractable nausea and vomiting Diarrhea Epigastric Colitis Patient could not provide stool sample for C. difficile testing. Diarrhea resolved. Possible gastritis KUB is unremarkable. CT abdomen and pelvis demonstrates colitis Start Protonix and Maalox today Supportive measures with antiemetics as needed, analgesics as needed. Continue IV antibiotics-Rocephin and Flagyl. Continue IV fluid. Clear liquid diet and advance as tolerated. Accelerated hypertension Aggressive blood pressure control Continue home antihypertensives. Anxiety disorder Resume home dose Xanax DVT prophylaxis: Lovenox.
[2023-05-13] MEDS ORDERED: KCL 20 MEQ/100 mL IVPB 20 MEQ/100 ML BAG IV SCH (13:00)
[2023-05-13] MEDS: TRAZODONE 150 MG TAB PO SCH (21:00)
[2023-05-13] MEDS: TRAZODONE 50 MG TABLET PO SCH (21:27)
[2023-05-14] MEDS: METRONIDAZOLE 500mg IVPB 500 MG/100 ML BAG IV SCH ×3 (00:20→19:15)
[2023-05-14] MEDS: MORPHINE 2 MG/ML SYR IV PRN ×4 (00:20→19:48)
[2023-05-14 03:08] LABS: Absolute Lymphocytes (CBC) 2.2 K/uL (0.7-4.9); Hematocrit 28.6 % (36.0-45.0); Lymphocytes % 21.5 % (15.3-44.8); MCV 98.5 fL (80-100); MPV 7.6 fL (7.6-11.3); Platelets 198 thou/uL (152-406)
[2023-05-14 03:44] LABS: Phosphorus 2.1 mg/dL (2.5-4.9); Potassium 3.5 mEq/L (3.5-5.1)
[2023-05-14] MEDS ORDERED: POTASSIUM CL SA 10 MEQ TAB PO ONE (04:10)
[2023-05-14] MEDS ORDERED: POTASSIUM PHOS IN 0.9 % NACL 15 MMOL/250 ML BAG IV ONE ×2 (04:11→11:00)
[2023-05-14] MEDS: METOCLOPRAMIDE 10 MG/2mL INJ IV SCH (04:51)
[2023-05-14] MEDS: D5.45NS W/KCL 20MEQ 1,000 ML IV SCH ×2 (05:05→15:41)
[2023-05-14] MEDS: CLONIDINE HCL 0.3 MG TAB PO SCH ×3 (09:00→20:11)
[2023-05-14] MEDS: carvediloL 25 MG TAB PO SCH ×2 (09:00→20:11)
[2023-05-14] MEDS: ENOXAPARIN 40 MG/0.4 ML SQ SCH (09:06)
[2023-05-14] MEDS: CEFTRIAXONE 1,000 MG in NA CHLORIDE 0.9% 50 ML IVPB SCH (09:07)
[2023-05-14] MEDS: PANTOPRAZOLE 40 MG INJ IVP SCH ×2 (09:08→19:49)
[2023-05-14] MEDS: NICOTINE 21 MG/PAT TD SCH (10:31)
[2023-05-14] MEDS: PROMETHAZINE INJ 25 MG/ML AMP IV PRN (10:31)
--- NOTE | 2023-05-14 14:06 | P.PN ---
Subjective Date of Service: 05/14/23 Chief Complaint: Colitis Patient states she feels better today. Patient denies nausea today No diarrhea. Blood pressure significantly improved and soft readings today. Physical Examination - Vital Signs Temperature: 98.3 F Blood Pressure: 93/70 Pulse: 85 Respirations: 18 Pulse Ox (%): 98 - Physical Exam General: Alert, In no apparent distress, Oriented x3 HEENT: Mucous membr. moist/pink Neck: JVD not distended Respiratory: Clear to auscultation bilaterally, Normal air movement Cardiovascular: Regular rate/rhythm, Normal S1 S2 Gastrointestinal: Normal bowel sounds, Soft and benign, Non-distended, No tenderness Musculoskeletal: No swelling Integumentary: No rashes, No cyanosis Neurological: Normal strength at 5/5 x4 extr Assessment And Plan - Current Problems (Diagnosis) (1) Colitis Current Visit: Yes Status: Acute (2) Hypokalemia Current Visit: Yes Status: Acute (3) Hypertension Current Visit: Yes Status: Chronic Qualifiers: Hypertension type: primary hypertension Qualified Code(s): I10 - Essential (primary) hypertension (4) Abdominal pain Current Visit: No Status: Acute (5) Intractable nausea and vomiting Current Visit: No Status: Acute - Plan Intractable nausea and vomiting Diarrhea Epigastric Colitis Patient could not provide stool sample for C. difficile testing. Diarrhea resolved. Possible gastritis KUB is unremarkable. CT abdomen and pelvis demonstrated colitis Continue Protonix and Maalox today Supportive measures with antiemetics as needed, analgesics as needed. Continue IV Rocephin and Flagyl. Continue IV fluid. Advance diet as tolerated. Accelerated hypertension Blood pressure controlled on home meds Continue home antihypertensives. Anxiety disorder Continue home dose Xanax DVT prophylaxis: Lovenox.
[2023-05-14] MEDS: ALPRAZOLAM 1 MG TABLET PO PRN (14:59)
[2023-05-14] MEDS: TRAZODONE 50 MG TABLET PO SCH (19:50)
[2023-05-14] MEDS: TRAZODONE 150 MG TAB PO SCH (20:10)
[2023-05-15] MEDS: METRONIDAZOLE 500mg IVPB 500 MG/100 ML BAG IV SCH ×3 (01:02→18:18)
[2023-05-15] MEDS: MORPHINE 2 MG/ML SYR IV PRN ×4 (01:02→19:26)
[2023-05-15] MEDS: D5.45NS W/KCL 20MEQ 1,000 ML IV SCH ×3 (01:41→22:38)
[2023-05-15] MEDS: METOCLOPRAMIDE 10 MG/2mL INJ IV SCH (06:00)
[2023-05-15] MEDS: PROMETHAZINE INJ 25 MG/ML AMP IV PRN ×2 (06:49→19:27)
[2023-05-15 08:17] LABS: Phosphorus 2.9 mg/dL (2.5-4.9); Potassium 3.4 mEq/L (3.5-5.1)
[2023-05-15] MEDS: CLONIDINE HCL 0.3 MG TAB PO SCH ×3 (09:43→20:38)
[2023-05-15] MEDS: carvediloL 25 MG TAB PO SCH ×2 (09:44→20:39)
[2023-05-15] MEDS: ENOXAPARIN 40 MG/0.4 ML SQ SCH (09:44)
[2023-05-15] MEDS: CEFTRIAXONE 1,000 MG in NA CHLORIDE 0.9% 50 ML IVPB SCH (09:44)
[2023-05-15] MEDS: NICOTINE 21 MG/PAT TD SCH (09:51)
[2023-05-15] MEDS: ALPRAZOLAM 1 MG TABLET PO PRN ×2 (09:52→19:26)
[2023-05-15] MEDS: PANTOPRAZOLE 40 MG INJ IVP SCH ×2 (09:52→19:27)
[2023-05-15] MEDS: SUCRALFATE 1GM/10ML UCUP PO SCH ×3 (14:18→20:43)
--- NOTE | 2023-05-15 18:40 | P.PN ---
Subjective Date of Service: 05/15/23 Chief Complaint: Colitis Patient states she feels better today. She reports some nausea during breakfast today. No diarrhea. Blood pressure has been stable. Physical Examination - Vital Signs Temperature: 98.2 F Blood Pressure: 112/78 Pulse: 77 Respirations: 14 Pulse Ox (%): 91 Assessment And Plan - Current Problems (Diagnosis) (1) Colitis Current Visit: Yes Status: Acute (2) Hypokalemia Current Visit: Yes Status: Acute (3) Hypertension Current Visit: Yes Status: Chronic Qualifiers: Hypertension type: primary hypertension Qualified Code(s): I10 - Essential (primary) hypertension (4) Abdominal pain Current Visit: No Status: Acute (5) Intractable nausea and vomiting Current Visit: No Status: Acute - Plan Intractable nausea and vomiting Diarrhea Epigastric Colitis Patient could not provide stool sample for C. difficile testing. Diarrhea resolved. Possible gastritis KUB is unremarkable. CT abdomen and pelvis demonstrated colitis. Clinically improved. Continue Protonix and Maalox. Supportive measures with antiemetics as needed, analgesics as needed. Continue IV Rocephin and Flagyl. Continue IV fluid. Advance diet as tolerated. Accelerated hypertension Blood pressure controlled on home meds Continue home antihypertensives. Anxiety disorder Continue home dose Xanax DVT prophylaxis: Lovenox. Disposition: Possible discharge to home in a.m.
[2023-05-15] MEDS: TRAZODONE 50 MG TABLET PO SCH ×2 (19:26→20:42)
[2023-05-15] MEDS: TRAZODONE 150 MG TAB PO SCH (20:43)
[2023-05-16] MEDS: METRONIDAZOLE 500mg IVPB 500 MG/100 ML BAG IV SCH ×3 (01:28→17:29)
[2023-05-16] MEDS: MORPHINE 2 MG/ML SYR IV PRN ×5 (04:41→19:21)
[2023-05-16] MEDS: METOCLOPRAMIDE 10 MG/2mL INJ IV SCH (05:36)
[2023-05-16] MEDS: D5.45NS W/KCL 20MEQ 1,000 ML IV SCH ×2 (07:54→17:28)
[2023-05-16] MEDS: ENOXAPARIN 40 MG/0.4 ML SQ SCH (07:57)
[2023-05-16] MEDS: PANTOPRAZOLE 40 MG INJ IVP SCH ×2 (07:57→21:53)
[2023-05-16] MEDS: SUCRALFATE 1GM/10ML UCUP PO SCH ×4 (07:57→20:49)
[2023-05-16] MEDS: CEFTRIAXONE 1,000 MG in NA CHLORIDE 0.9% 50 ML IVPB SCH (07:57)
[2023-05-16] MEDS: carvediloL 25 MG TAB PO SCH ×2 (07:58→20:50)
[2023-05-16] MEDS: CLONIDINE HCL 0.3 MG TAB PO SCH ×3 (08:05→20:49)
[2023-05-16] MEDS: NICOTINE 21 MG/PAT TD SCH (09:00)
[2023-05-16] MEDS: PROMETHAZINE INJ 25 MG/ML AMP IV PRN ×3 (09:01→20:35)
[2023-05-16] MEDS ORDERED: METOCLOPRAMIDE 10 MG/2mL INJ IV ONE (10:00)
[2023-05-16] MEDS: HYDRALAZINE HCL 20 MG/ML VIAL IV PRN ×2 (11:16→19:22)
--- NOTE | 2023-05-16 13:48 | P.PN ---
Subjective Date of Service: 05/16/23 Chief Complaint: Colitis Patient seen vomiting this morning. She is also complaining of epigastric pain. She reported prior history of peptic ulcer No diarrhea. Physical Examination - Vital Signs Temperature: 99.0 F Blood Pressure: 192/126 Pulse: 86 Respirations: 16 Pulse Ox (%): 99 Assessment And Plan - Current Problems (Diagnosis) (1) Colitis Current Visit: Yes Status: Acute (2) Hypokalemia Current Visit: Yes Status: Acute (3) Hypertension Current Visit: Yes Status: Chronic Qualifiers: Hypertension type: primary hypertension Qualified Code(s): I10 - Essential (primary) hypertension (4) Abdominal pain Current Visit: No Status: Acute (5) Intractable nausea and vomiting Current Visit: No Status: Acute - Plan Physical Exam General: Alert, In no apparent distress, Oriented x3 HEENT: Mucous membr. moist/pink Respiratory: Clear to auscultation bilaterally, Normal air movement Cardiovascular: Regular rate/rhythm, Normal S1 S2 Gastrointestinal: Normal bowel sounds, Soft and benign, Non-distended, epigastric tenderness. Musculoskeletal: No swelling Integumentary: No rashes, No cyanosis Neurological: Normal strength at 5/5 x4 extr Assessment and plan Intractable nausea and vomiting Diarrhea Epigastric Colitis Patient could not provide stool sample for C. difficile testing. Diarrhea resolved. Patient with persistent nausea and vomiting and epigastric pain. She reports prior history of peptic ulcer. She reports bloodstained vomitus yesterday. KUB is unremarkable. CT abdomen and pelvis demonstrated colitis. Repeat CT abdomen and pelvis today Continue Protonix and sucralfate Supportive measures with antiemetics as needed, analgesics as needed. Continue IV Rocephin and Flagyl. Continue IV fluid. Clear liquid diet. Accelerated hypertension Patient blood pressure fluctuates Continue home antihypertensives. Hydralazine as needed for BP spikes. Acute blood loss anemia Hemoglobin dropped from 12 to 10. Possible GI bleed IV Protonix and sucralfate Monitor H&H and transfuse as needed Anxiety disorder Continue home dose Xanax DVT prophylaxis: SCD Disposition: Home once symptoms improve and able to tolerate diet without vomiting.
--- NOTE | 2023-05-16 15:13 | RAD REPORT ---
EXAM DESCRIPTION: CTAbdomen Pelvis W Contrast - 05/16/2023 3:04 pm CLINICAL HISTORY: Abdominal pain. Abdominal pain and vomiting-persistent COMPARISON: <Comparisons> TECHNIQUE: Biphasic CT imaging of the abdomen and pelvis was performed with 100 ml non-ionic IV cont rast. All CT scans are performed using dose optimization technique as appropriate and may include automated exposure control or mA/KV adjustment according to patient size. FINDINGS: The lung bases are clear.Small hiatal hernia. Mild fatty liver. Small low-density hepatic lesions likely benign cysts. Numerous gallstones are pres ent in the gallbladder. The spleen, pancreas, adrenal glands are normal. Small caliceal stones are pr esent in both kidneys without hydronephrosis. No bowel obstruction, free air, free fluid or abscess. Previously noted colitis findings improved mod erately. The appendix is normal. No evidence of significant lymphadenopathy. No suspicious bony findings. IMPRESSION: Moderate improvement in the previously noted colitis pattern. Cholelithiasis.
[2023-05-16] MEDS ORDERED: HYDRALAZINE HCL 20 MG/ML VIAL ONE ×2 (15:28→19:29)
[2023-05-16] MEDS: ALPRAZOLAM 1 MG TABLET PO PRN (15:36)
--- NOTE | 2023-05-16 15:40 | RAD REPORT ---
EXAM DESCRIPTION: CT - Head Brain Wo Cont - 05/16/2023 3:35 pm CLINICAL HISTORY: LOC IN CT Headache, drowsiness COMPARISON: <Comparisons> TECHNIQUE: All CT scans are performed using dose optimization technique as appropriate and may inclu de automated exposure control or mA/KV adjustment according to patient size. FINDINGS: Intravascular contrast is present from recent CT of the abdomen. There is mildly limits th e exam. No intracranial hemorrhage, hydrocephalus or extra-axial fluid collection.No areas of brain e peewee or evidence of midline shift. The paranasal sinuses and mastoids are clear. The calvarium is intact. IMPRESSION: No acute intracranial abnormality is suspected.
[2023-05-16] MEDS ORDERED: FORMULATION-R RECTAL 57GM PR PRN (16:30)
[2023-05-16] MEDS: LABETALOL HCL 200 MG in D5W 60 ML IV SCH ×2 (17:14→22:20)
[2023-05-16] MEDS ORDERED: D5W 100 ML IV ONE ×3 (17:23→20:12)
[2023-05-16] MEDS ORDERED: LABETALOL 20 MG/4ML SYRINGE IV ONE ×4 (17:23→20:19)
[2023-05-16] MEDS ORDERED: D5.45NS W/KCL 20MEQ 1,000 ML IV ONE (17:40)
[2023-05-16] MEDS ORDERED: NA CHLORIDE 0.9% 0 ML ONE (17:40)
[2023-05-16] MEDS ORDERED: METRONIDAZOLE 500mg IVPB 500 MG/100 ML BAG IV ONE (17:40)
[2023-05-16] MEDS ORDERED: MORPHINE 2 MG/ML SYR ONE (19:29)
[2023-05-16] MEDS ORDERED: D5W 0 ML IV ONE (19:32)
[2023-05-16] MEDS: TRAZODONE 50 MG TABLET PO SCH (20:50)
[2023-05-16] MEDS: TRAZODONE 150 MG TAB PO SCH (20:51)
[2023-05-16] MEDS: MORPHINE 4 MG/ML SYR IV PRN (22:45)
[2023-05-17] MEDS: PROMETHAZINE INJ 25 MG/ML AMP IV PRN ×2 (00:57→05:14)
[2023-05-17] MEDS: METRONIDAZOLE 500mg IVPB 500 MG/100 ML BAG IV SCH ×2 (00:57→08:20)
[2023-05-17] MEDS: MORPHINE 4 MG/ML SYR IV PRN ×5 (02:32→20:51)
[2023-05-17] MEDS ORDERED: PROMETHAZINE INJ 25 MG/ML AMP ONE (05:12)
[2023-05-17] MEDS: METOCLOPRAMIDE 10 MG/2mL INJ IV SCH (05:13)
[2023-05-17] MEDS: D5.45NS W/KCL 20MEQ 1,000 ML IV SCH ×2 (05:16→18:29)
[2023-05-17 06:31] LABS: Absolute Lymphocytes (CBC) 1.5 K/uL (0.7-4.9); Hematocrit 32.1 % (36.0-45.0); Lymphocytes % 13.2 % (15.3-44.8); MCV 96.5 fL (80-100); MPV 7.1 fL (7.6-11.3); Platelets 246 thou/uL (152-406); RBC Red Blood Cell Count 3.32 M/uL (3.86-4.86)
[2023-05-17] MEDS ORDERED: NA CHLORIDE 0.9% 50 ML ONE (08:01)
[2023-05-17] MEDS: carvediloL 25 MG TAB PO SCH ×2 (08:20→21:00)
[2023-05-17] MEDS: SUCRALFATE 1GM/10ML UCUP PO SCH ×4 (08:20→20:51)
[2023-05-17] MEDS: CLONIDINE HCL 0.3 MG TAB PO SCH ×3 (08:20→21:00)
[2023-05-17] MEDS: PANTOPRAZOLE 40 MG INJ IVP SCH ×2 (08:21→20:51)
[2023-05-17] MEDS: CEFTRIAXONE 1,000 MG in NA CHLORIDE 0.9% 50 ML IVPB SCH (08:21)
[2023-05-17] MEDS: NICOTINE 21 MG/PAT TD SCH ×2 (08:22→09:00)
[2023-05-17] MEDS ORDERED: NICOTINE 21 MG/PAT TD ONE (09:08)
[2023-05-17] MEDS: ONDANSETRON 4 MG/2 ML VIAL IV PRN ×3 (12:50→20:51)
[2023-05-17] MEDS ORDERED: ONDANSETRON 4 MG/2 ML VIAL ONE (12:50)
--- NOTE | 2023-05-17 14:20 | P.PN ---
Subjective Date of Service: 05/17/23 Chief Complaint: Colitis Patient states she feels better today. Blood pressure has improved. Labetalol drip weaned off. She is still complaining of epigastric pain. No BM since admission. Physical Examination - Vital Signs Temperature: 99 F Blood Pressure: 107/84 Pulse: 91 Respirations: 18 Pulse Ox (%): 96 - Studies Microbiology Data (last 24 hrs): 05/12/23 01:45 Blood - Blood Aerobic Blood Culture - Final No growth in 5 days. 05/12/23 01:45 Blood - Blood Anaerobic Blood Culture - Final No growth in 5 days. Assessment And Plan - Current Problems (Diagnosis) (1) Colitis Current Visit: Yes Status: Acute (2) Hypokalemia Current Visit: Yes Status: Acute (3) Hypertension Current Visit: Yes Status: Chronic Qualifiers: Hypertension type: primary hypertension Qualified Code(s): I10 - Essential (primary) hypertension (4) Abdominal pain Current Visit: No Status: Acute (5) Intractable nausea and vomiting Current Visit: No Status: Acute - Plan Physical Exam General: Alert, In no apparent distress, Oriented x3 HEENT: Mucous membr. moist/pink Respiratory: Clear to auscultation bilaterally, Normal air movement Cardiovascular: Regular rate/rhythm, Normal S1 S2 Gastrointestinal: Normal bowel sounds, Soft and benign, Non-distended, epigastric tenderness. Musculoskeletal: No swelling Integumentary: No rashes, No cyanosis Neurological: Normal strength at 5/5 x4 extr Assessment and plan Intractable nausea and vomiting Diarrhea Epigastric Colitis Hypokalemia Patient could not provide stool sample for C. difficile testing. Diarrhea resolved. Patient now reports constipation. No BM since admission Patient with persistent nausea and vomiting and epigastric pain. She reports prior history of peptic ulcer. 1 episode of bloodstained vomitus. KUB is unremarkable. CT abdomen and pelvis demonstrated colitis. Repeat CT abdomen and pelvis showed improved colitis, no surgical abdomen. Continue Protonix and sucralfate Supportive measures with antiemetics as needed, analgesics as needed. IV Rocephin and Flagyl changed to IV Zosyn. Patient may be experiencing nausea from the Flagyl. She also had low-grade fever despite antibiotics. Continue IV fluid. Clear liquid diet. Replace potassium. No GI available. Accelerated hypertension Patient blood pressure fluctuates. Patient is currently normotensive, labetalol drip discontinued. Continue home antihypertensives. Hydralazine as needed for BP spikes. Acute blood loss anemia Hemoglobin dropped from 12 to 10. Possible GI bleed IV Protonix and sucralfate Monitor H&H and transfuse as needed Fever Obtain UA with reflex urine culture and blood cultures. Antibiotics changed to IV Zosyn. Anxiety disorder Continue home dose Xanax DVT prophylaxis: SCD Disposition: Home once symptoms improve and able to tolerate diet without vomiting.
[2023-05-17] MEDS ORDERED: POTASSIUM 25 MEQ EFFERV TAB PO ONE ×2 (14:23→22:00)
[2023-05-17] MEDS ORDERED: POTASSIUM CL SA 10 MEQ TAB PO ONE (15:19)
[2023-05-17] MEDS: PIPER TAZO 3.375 GM in NA CHLORIDE 0.9% 100 ML IV SCH ×2 (15:27→22:13)
[2023-05-17 15:48] LABS: Specific Gravity 1.006 (1.005-1.030); Urine Bilirubin NEGATIVE (Negative); Urine Blood Negative (Negative); Urine Clarity Clear (Clear); Urine Color Light-Yellow (Yellow); Urine Glucose NEGATIVE (Negative); Urine Protein NEGATIVE (Negative); Urine Urobilinogen Normal (Normal)
[2023-05-17] MEDS ORDERED: MAGNESIUM CITRATE 300 ML BOT PO ONE (16:00)
[2023-05-17] MEDS: ALPRAZOLAM 1 MG TABLET PO PRN (20:51)
[2023-05-17] MEDS: TRAZODONE 150 MG TAB PO SCH (20:53)
[2023-05-17] MEDS ORDERED: NA CHLORIDE 0.9% 250 ML IV ONE (22:56)
[2023-05-18] MEDS: ONDANSETRON 4 MG/2 ML VIAL IV PRN ×2 (01:44→08:04)
[2023-05-18] MEDS: MORPHINE 2 MG/ML SYR IV PRN ×3 (01:44→11:22)
[2023-05-18 05:03] LABS: Hematocrit 29.4 % (36.0-45.0); MCV 99.1 fL (80-100); Platelets 226 thou/uL (152-406); RBC Red Blood Cell Count 2.96 M/uL (3.86-4.86)
[2023-05-18 05:04] LABS: Absolute Lymphocytes (CBC) 2.9 K/uL (0.7-4.9); Lymphocytes % 40.9 % (15.3-44.8)
[2023-05-18 05:46] LABS: Albumin 2.8 g/dL (3.4-5.0); Bilirubin Total 0.3 mg/dL (0.2-1.0); Magnesium 2.3 mg/dL (1.6-2.4); Phosphorus 2.1 mg/dL (2.5-4.9); Potassium 3.4 mEq/L (3.5-5.1); Protein, Total 5.6 g/dL (6.4-8.2)
[2023-05-18] MEDS: PIPER TAZO 3.375 GM in NA CHLORIDE 0.9% 100 ML IV SCH ×3 (06:03→21:25)
[2023-05-18] MEDS: METOCLOPRAMIDE 10 MG/2mL INJ IV SCH (06:03)
[2023-05-18] MEDS ORDERED: METOCLOPRAMIDE 10 MG/2mL INJ ONE (06:16)
[2023-05-18] MEDS ORDERED: NICOTINE 21 MG/PAT TD ONE (07:55)
[2023-05-18] MEDS ORDERED: POTASSIUM CL SA 10 MEQ TAB PO ONE (08:00)
[2023-05-18] MEDS: SUCRALFATE 1GM/10ML UCUP PO SCH ×4 (08:02→20:19)
[2023-05-18] MEDS: ALPRAZOLAM 1 MG TABLET PO PRN ×2 (08:02→20:34)
[2023-05-18] MEDS: NICOTINE 21 MG/PAT TD SCH (08:03)
[2023-05-18] MEDS: POTASS/SODIUM PHOSPHATE 1 PKT POWD.PACK PO SCH ×3 (08:03→11:22)
[2023-05-18] MEDS: PANTOPRAZOLE 40 MG INJ IVP SCH ×2 (08:04→20:19)
[2023-05-18] MEDS: CLONIDINE HCL 0.3 MG TAB PO SCH ×2 (08:04→14:00)
[2023-05-18] MEDS: carvediloL 25 MG TAB PO SCH (08:04)
[2023-05-18] MEDS: D5.45NS W/KCL 20MEQ 1,000 ML IV SCH ×3 (08:05→20:00)
[2023-05-18] MEDS ORDERED: MORPHINE 2 MG/ML SYR ONE ×2 (11:33→16:34)
--- NOTE | 2023-05-18 12:08 | P.PN ---
Date of Service: 05/18/23 Subjective: Patient still having lower abd pain, nausea, Blood pressure has improved, now on low side No BM since admission still ROS: 10 point ROS as noted above, otherwise negative Physical Exam General: Alert, In no apparent distress, Oriented x3 HEENT: Mucous membr. moist/pink Respiratory: Clear to auscultation bilaterally, Normal air movement Cardiovascular: Regular rate/rhythm, Normal S1 S2 Gastrointestinal: Normal bowel sounds, Soft and benign, Non-distended, generalized abd tenderness-mild/moderate Musculoskeletal: No swelling Integumentary: No rashes, No cyanosis Neurological: Normal strength at 5/5 x4 extr Vitals reviewed Assessment and plan Intractable nausea and vomiting Colitis Hypokalemia Patient could not provide stool sample for C. difficile testing. Diarrhea resolved. Patient now reports constipation. No BM since admission Patient with persistent nausea and vomiting and epigastric pain. General surgery consulted given persistent pain, epigastric tenderness, cholelithiasis She reports prior history of peptic ulcer. 1 episode of bloodstained vomitus- none further KUB is unremarkable. CT abdomen and pelvis demonstrated colitis. Repeat CT abdomen and pelvis showed improved colitis, no surgical abdomen. Continue Protonix and sucralfate Supportive measures with antiemetics as needed, analgesics as needed. IV Rocephin and Flagyl changed to IV Zosyn. Patient may be experiencing nausea from the Flagyl. She also had low-grade fever despite antibiotics. Continue IV fluid. Full liquid diet Replace potassium. No GI available. Accelerated hypertension Patient blood pressure fluctuates. Patient is currently nnormotensive/soft BP Continue home antihypertensives. Hydralazine as needed for BP spikes. Acute blood loss anemia Hemoglobin dropped from 12 to 10, stable now IV Protonix and sucralfate Monitor H&H and transfuse as needed Fever Obtain UA with reflex urine culture and blood cultures. Antibiotics changed to IV Zosyn. Blood cultures with no growth in 5 days Anxiety disorder Continue home dose Xanax DVT prophylaxis: SCD Disposition: Home once symptoms improve and able to tolerate diet without vomiting. Time Spent Managing Pts Care (In Minutes): 35 <Fabiano Calwdell - Last Filed: 05/18/23 12:03> Patient seen and examined on rounds this morning. Plan of care discussed with STAFF SONOGRAPHER Javi. Agree with plan as noted above with the following additions/corrections: Continues with abdominal pain. on exam, tender throughout, but quite tender in RUQ stones noted in gallbladder on CT. normal bili, no jaundice continues with intractable nausea/vomiting colitis improved on CT check liver/gallbladder U/S Dr. Montez consulted <Laci Cosme - Last Filed: 05/18/23 17:38>
--- NOTE | 2023-05-18 18:37 | RAD REPORT ---
EXAM DESCRIPTION: US - Abdomen Exam Limited - 05/18/2023 6:01 pm CLINICAL HISTORY: abd pain, cholecystitis COMPARISON: Abdomen Pelvis W Contrast dated 05/16/2023 FINDINGS: The gallbladder demonstrates sludge and possibly small nonshadowing stones No pericholecys tic fluid or gallbladder wall thickening. The common bile duct is normal measuring 3 mm. The liver demonstrates no findings of intrahepatic biliary dilatation. IMPRESSION: Sludge versus nonshadowing stones but no specific findings to suggest acute cholecystiti s.
[2023-05-18 20:17] VITALS: O2SAT 99
[2023-05-18] MEDS: TRAZODONE 150 MG TAB PO SCH (20:30)
[2023-05-18] MEDS: TRAZODONE 50 MG TABLET PO SCH (20:30)
[2023-05-18] MEDS: ENSURE HIGH PROTEIN 237 ML CAN PO SCH (20:30)
[2023-05-19] MEDS: MORPHINE 2 MG/ML SYR IV PRN ×2 (02:04→07:13)
[2023-05-19 03:08] VITALS: BMI 22.1
[2023-05-19 04:59] LABS: Hematocrit 29.1 % (36.0-45.0); MCV 99.2 fL (80-100); Platelets 254 thou/uL (152-406); RBC Red Blood Cell Count 2.94 M/uL (3.86-4.86)
[2023-05-19 05:20] LABS: BUN Blood Urea Nitrogen 6 mg/dL (7-18); Bicarbonate 27 mEq/L (21-32); Glomerular Filtration Rate 96 ml/min (=/>90); Glucose Level 103 mg/dL (74-106); Magnesium 2.2 mg/dL (1.6-2.4); Phosphorus 3.1 mg/dL (2.5-4.9); Potassium 3.8 mEq/L (3.5-5.1); Sodium Level 141 mEq/L (136-145)
[2023-05-19] MEDS: METOCLOPRAMIDE 10 MG/2mL INJ IV SCH (05:27)
[2023-05-19] MEDS: PIPER TAZO 3.375 GM in NA CHLORIDE 0.9% 100 ML IV SCH (05:27)
[2023-05-19] MEDS: D5.45NS W/KCL 20MEQ 1,000 ML IV SCH (05:37)
[2023-05-19] MEDS ORDERED: METOCLOPRAMIDE 10 MG/2mL INJ ONE (05:40)
[2023-05-19] MEDS: ONDANSETRON 4 MG/2 ML VIAL IV PRN (07:13)
[2023-05-19] MEDS: SUCRALFATE 1GM/10ML UCUP PO SCH ×2 (07:13→11:47)
[2023-05-19 07:19] LABS: ALT/SGPT 16 U/L (13-56); AST/SGOT 20 U/L (15-37); Albumin 2.7 g/dL (3.4-5.0); Alkaline Phosphatase 34 U/L (45-117); Bilirubin Total 0.2 mg/dL (0.2-1.0); Protein, Total 5.4 g/dL (6.4-8.2)
[2023-05-19 07:20] LABS: Bilirubin Direct < 0.1 mg/dL (0-0.2); Bilirubin Indirect, Calculated ND mg/dL (0.2-0.8)
[2023-05-19] MEDS ORDERED: HYDROCODONE/APAP 5/325 MG TAB PO PRN (07:30)
[2023-05-19] MEDS: ALPRAZOLAM 1 MG TABLET PO PRN (08:30)
[2023-05-19] MEDS: POTASSIUM 25 MEQ EFFERV TAB PO ONE ×2 (08:30)
[2023-05-19] MEDS: NICOTINE 21 MG/PAT TD SCH (08:31)
[2023-05-19] MEDS: PANTOPRAZOLE 40 MG INJ IVP SCH (08:31)
[2023-05-19] MEDS: ENSURE HIGH PROTEIN 237 ML CAN PO SCH (08:31)
[2023-05-19] MEDS ORDERED: POTASSIUM CL SA 10 MEQ TAB PO ONE (09:00)
[2023-05-19 09:16] VITALS: TEMP 98.1
[2023-05-19 12:08] VITALS: BP 122/99
--- NOTE | 2023-05-19 13:31 | P.DS ---
Admission Date: 05/12/23 Discharge Date: 05/19/23 Reason for Admission: Colitis Brief History of Present Illness: Ms. Garcia is a 52-year-old female with past medical history of hypertension, migraines, and anxiety who presented to the emergency department via EMS with complaints of progressively worsening abdominal pain for 1 week. She states that she had been constipated until she took a laxative last night and has had a lot of diarrhea today. She was worked up in the emergency department and her labs revealed a white blood cell count of 22 with associated left shift, mild hypokalemia of 3.1, and CRP 4.84. CT abdomen pelvis showed "long segment wall thickening and pericolonic stranding spanning from the transverse to the rectosigmoid colon, consistent with colitis." She does report recent antibiotic use. Blood cultures were obtained in the emergency department and she was given IV pain medication as well as IV antibiotics. She will be admitted for further management of colitis. Hospital Course: Patient was admitted to the hospital for colitis, intractable nausea/vomiting, malignant hypertension. She was started on antibiotics for colitis and briefly on a labetalol drip for her significant hypertension. UA was obtained which was not concerning for urinary tract infection. Renal function remained within normal limits, hypoxia, has improved. Today patient is tolerating GI/low residual diet reports significant improvement in pain to the abdomen. She is requesting to be discharged. Patient sent with prescriptions for hydrocodone as needed for pain, Phenergan as needed for nausea/vomiting and Augmentin twice daily for 7 days. In regards to your Xanax, this will need to be prescribed by a PCP who recommend you establish yourself with. Please follow-up with your primary care doctor in 1 week <Fabiano Caldwell - Last Filed: 05/19/23 13:28> Admission Date: 05/12/23 Discharge Date: 05/19/23 <Laci Cosme - Last Filed: 05/19/23 21:47> Disposition: ROUTINE DISCHARGE Discharge Condition: GOOD Vital Signs/Physical Exam: Temp Pulse Resp BP Pulse Ox 98.1 F 98 H 23 H 122/99 H 98 05/19/23 12:00 05/19/23 12:00 05/19/23 12:00 05/19/23 12:00 05/19/23 12:00 General: Alert, In no apparent distress, Oriented x3 HEENT: Atraumatic, PERRLA, EOMI Neck: Supple Respiratory: Clear to auscultation bilaterally, Normal air movement Cardiovascular: Regular rate/rhythm, Normal S1 S2 Gastrointestinal: Normal bowel sounds Musculoskeletal: No tenderness Integumentary: No rashes Neurological: Normal speech, Normal affect Laboratory Data at Discharge: WBC 6.90 thou/uL (4.3-10.9) 05/19/23 04:15 Hgb 9.9 g/dL (12.0-15.0) L 05/19/23 04:15 Hct 29.1 % (36.0-45.0) L 05/19/23 04:15 Plt Count 254 thou/uL (152-406) 05/19/23 04:15 Sodium 141 mEq/L (136-145) 05/19/23 04:15 Potassium 3.8 mEq/L (3.5-5.1) 05/19/23 04:15 BUN 6 mg/dL (7-18) L 05/19/23 04:15 Creatinine 0.75 mg/dL (0.55-1.02) 05/19/23 04:15 Glucose 103 mg/dL (74-106) 05/19/23 04:15 Phosphorus 3.1 mg/dL (2.5-4.9) 05/19/23 04:15 Magnesium 2.2 mg/dL (1.6-2.4) 05/19/23 04:15 Total Bilirubin Cancelled 05/19/23 Unknown AST Cancelled 05/19/23 Unknown ALT Cancelled 05/19/23 Unknown Alkaline Phosphatase Cancelled 05/19/23 Unknown Lipase 19 U/L (13-75) 05/11/23 23:55 <Fabiano Caldwell - Last Filed: 05/19/23 13:28> Vital Signs/Physical Exam: Temp Pulse Resp BP Pulse Ox 98.1 F 98 H 23 H 122/99 H 98 05/19/23 12:00 05/19/23 12:00 05/19/23 12:00 05/19/23 12:00 05/19/23 12:00 Laboratory Data at Discharge: WBC 6.90 thou/uL (4.3-10.9) 05/19/23 04:15 Hgb 9.9 g/dL (12.0-15.0) L 05/19/23 04:15 Hct 29.1 % (36.0-45.0) L 05/19/23 04:15 Plt Count 254 thou/uL (152-406) 05/19/23 04:15 Sodium 141 mEq/L (136-145) 05/19/23 04:15 Potassium 3.8 mEq/L (3.5-5.1) 05/19/23 04:15 BUN 6 mg/dL (7-18) L 05/19/23 04:15 Creatinine 0.75 mg/dL (0.55-1.02) 05/19/23 04:15 Glucose 103 mg/dL (74-106) 05/19/23 04:15 Phosphorus 3.1 mg/dL (2.5-4.9) 05/19/23 04:15 Magnesium 2.2 mg/dL (1.6-2.4) 05/19/23 04:15 Total Bilirubin Cancelled 05/19/23 Unknown AST Cancelled 05/19/23 Unknown ALT Cancelled 05/19/23 Unknown Alkaline Phosphatase Cancelled 05/19/23 Unknown Lipase 19 U/L (13-75) 05/11/23 23:55 <Laci Cosme - Last Filed: 05/19/23 21:47> Diet: low fiber Activity: Ad viviana Time spent managing pt's care (in minutes): 30 <Fabiano Caldwell - Last Filed: 05/19/23 13:28> Physician Review: Patient Assessed, Agree with Above Assessment and Plan (Patient seen and examined on rounds this morning. Improving. Diet advanced and patient reported feeling better and requesting discharge home.) <Laci Cosme - Last Filed: 05/19/23 21:47> Home Medications: Trazodone [Desyrel*] 200 mg PO BEDTIME 10/07/19 Alprazolam [Xanax] 2 mg PO BID PRN #6 10/12/19 carvediloL [Coreg*] 25 mg PO BID tab 10/12/19 cloNIDine HCL [Catapres*] 0.3 mg PO TID tablet 10/12/19 Sennosides/Docusate Sodium [Stool Softener-Laxative Tablet] 1 each PO DAILY PRN 05/12/23 Amox/Clavulanate [Augmentin 875-125 Tab] 875 mg PO BID #14 tab 05/19/23 Hydrocodone/Acetaminophen [Hydrocodon-Acetaminophen 5-325] 1 each PO Q8H PRN #15 tab 05/19/23 Promethazine Tab [Phenergan] 12.5 mg PO Q6HP PRN #16 tab 05/19/23 New Medications: Amox/Clavulanate [Augmentin 875-125 Tab] 875 mg PO BID #14 tab Hydrocodone/Acetaminophen [Hydrocodon-Acetaminophen 5-325] 1 each PO Q8H PRN #15 tab PRN Reason: Pain Scale 5-7 (Moderate) Promethazine Tab [Phenergan] 12.5 mg PO Q6HP PRN #16 tab PRN Reason: Nausea / Vomiting Physician Discharge Instructions: Patient was admitted to the hospital for colitis, intractable nausea/vomiting, malignant hypertension. She was started on antibiotics for colitis and briefly on a labetalol drip for her significant hypertension. UA was obtained which was not concerning for urinary tract infection. Renal function remained within normal limits, hypoxia, has improved. Today patient is tolerating GI/low residual diet reports significant improvement in pain to the abdomen. She is requesting to be discharged. Patient sent with prescriptions for hydrocodone as needed for pain, Phenergan as needed for nausea/vomiting and Augmentin twice daily for 7 days. In regards to your Xanax, this will need to be prescribed by a PCP who recommend you establish yourself with. Please follow-up with your primary care doctor in 1 weekPROBLEM: (list out Acute Problems for the Current visit) GOAL: Clear understanding of disease process INSTRUCTIONS: Diet: low fiber Activity: Ad viviana DME DME: Date Ordered: Name of Company: [employer] Services Needed: Home Health Name of Company: Date or Referral: IMMUNIZATION Influenza Vaccine Indicated: Yes Influenza Vaccine Given: Date Given: Pneumonia Vaccine Indicated: No Pneumonia Vaccine Given: Date Given: Followup: NONE,NONE [Primary Care Provider] - 1 Week
== END 2023-05-19 15:15 | disposition home or self-care (01) | DRG 386 ==
LOC: ER 23:35 → ERHOLD 05-12 01:51 → 2ND 05-12 02:21 → 3RD-ICU 05-16 16:52
PROVIDERS: ADMIT Internal Medicine; ATTEND Hospitalist
DX: K51.50 Left sided colitis without complications (principal); D62 Acute posthemorrhagic anemia; E87.6 Hypokalemia; F41.9 Anxiety disorder, unspecified; K59.00 Constipation, unspecified; I10 Essential (primary) hypertension; K80.20 Calculus of gallbladder without cholecystitis without obstruction; F17.200 Nicotine dependence, unspecified, uncomplicated; Z88.8 Allergy status to other drugs, medicaments and biological substances; Z79.02 Long term (current) use of antithrombotics/antiplatelets; Z11.52 Encounter for screening for COVID-19; Z79.01 Long term (current) use of anticoagulants; Z79.899 Other long term (current) drug therapy
CPT/HCPCS: 36415; 70450; 74018; 74177; 76705; 80048; 80053; 80076; 81003; 82947; 83690; 83735; 84100; 84132; 85025; 85027; 86140; 87040; 87635; 87804; 96361; 96365; 96375; 99285; C9113; J0360; J0696; J1170; J1650; J2270; J2405; J2543; J2550; J2765; J3480; J7030; J7050; Q9967

== ENCOUNTER 2023-10-08 12:12 | Emergency (ER) | payer OTHER ==
[2023-10-08] MEDS ORDERED: KETOROLAC 30 MG/ML INJ ONE (13:05)
[2023-10-08] MEDS ORDERED: METOCLOPRAMIDE 10 MG/2mL INJ ONE (13:05)
[2023-10-08] MEDS ORDERED: DIPHENHYDRAMINE 50 MG/ML VIAL ONE (13:05)
[2023-10-08] MEDS ORDERED: NA CHLORIDE 0.9% 1,000 ML ONE (13:06)
--- NOTE | 2023-10-08 13:38 | RAD REPORT ---
EXAM DESCRIPTION: CT - Head Brain Wo Cont - 10/08/2023 12:57 pm CLINICAL HISTORY: HEADACHE COMPARISON: Head Brain Wo Cont dated 05/16/2023; Head Brain Wo Cont dated 05/08/2022 TECHNIQUE: Noncontrast head CT images were obtained without IV contrast. Multiplanar reformats were generated and reviewed. All CT scans are performed using dose optimization technique as appropriate and may include automated exposure control or mA/KV adjustment according to patient size. FINDINGS: No intracranial hemorrhage, mass, or edema. Midline structures are unremarkable. Normal ventricular caliber for age. Johnson-white matter differentiation is preserved, without evidence of acute infarct. No abnormal extra- axial fluid collections. Mastoid air cells and visualized portions of the paranasal sinuses are clear. No acute bony findings. IMPRESSION: No evidence of an acute intracranial process.
[2023-10-08 14:11] LABS: Absolute Lymphocytes (CBC) 1.2 K/uL (0.7-4.9); Absolute Monocytes 0.7 K/uL (0.1-1.3); Absolute Neutrophil 7.4 K/uL (1.8-8.0); Basophils % 0.4 % (0-1.3); Hematocrit 33.5 % (36.0-45.0); Hemoglobin 11.4 g/dL (12.0-15.0); Lymphocytes % 12.9 % (15.3-44.8); MCH 32.4 pg (27.0-35.0); MCHC 34.1 g/dL (32.0-36.0); MCV 94.9 fL (80-100); MPV 7.6 fL (7.6-11.3); Monocytes % 7.7 % (3.3-12.3); Platelets 264 thou/uL (152-406); RBC Red Blood Cell Count 3.53 M/uL (3.86-4.86)
[2023-10-08] MEDS ORDERED: AMLODIPINE 10 MG TAB ONE (14:28)
[2023-10-08 14:35] LABS: Albumin 3.7 g/dL (3.4-5.0); Albumin/Globulin Ratio 1.1 (1.1-1.8); Anion Gap 11.4 mEq/L (5.0-15.0); Bilirubin Total 0.4 mg/dL (0.2-1.0); Globulin 3.4 g/dL (2.3-3.5); Protein, Total 7.1 g/dL (6.4-8.2)
[2023-10-08 14:36] LABS: Potassium 2.4 mEq/L (3.5-5.1)
[2023-10-08 14:54] LABS: Phosphorus 2.5 mg/dL (2.5-4.9)
[2023-10-08] MEDS ORDERED: POTASSIUM 25 MEQ EFFERV TAB ONE ×2 (15:12→17:51)
[2023-10-08] MEDS ORDERED: NS KCL 20MEQ 1,000 ML IV ONE (15:12)
[2023-10-08] MEDS ORDERED: KCL 20 MEQ/100 mL IVPB 100 ML IV ONE (15:13)
--- NOTE | 2023-10-08 16:30 | ER ---
Nurse's Notes [facility] Name: Margie Garcia Age: 53 yrs Sex: Female : 1970 Arrival Date: 10/08/2023 Time: 12:12 Bed 10 Private MD: Diagnosis: Headache;Essential (primary) hypertension;Hypokalemia;Tobacco abuse counseling;Tobacco use Presentation: 10/07 12:30 Chief complaint: Migraine and vomiting x 3 days, not tolerating fluids/meds. hb Coronavirus screen: At this time, the client does not indicate any symptoms associated with coronavirus-19. Ebola Screen: No symptoms or risks identified at this time. Initial Sepsis Screen: Does the patient meet any 2 criteria? No. Patient's initial sepsis screen is negative. Does the patient have a suspected source of infection? No. Patient's initial sepsis screen is negative. Risk Assessment: Do you want to hurt yourself or someone else? Patient reports no desire to harm self or others. Onset of symptoms was October 06, 2023. 12:30 Method Of Arrival: Ambulatory 12:30 Acuity: BHARAT 2 hb Triage Assessment: 12:31 Headache History: The patient has had previous headaches and this one is similar to previous episodes. General: Appears in no apparent distress. uncomfortable, Behavior is calm, cooperative. Pain: Pain currently is 8 out of 10 on a pain scale. Pain began 2-3 days ago. Also complains of nausea, photophobia, vomiting. Neuro: Level of Consciousness is awake, alert, obeys commands, Oriented to person, place, time, situation. Cardiovascular: Patient's skin is warm and dry. Respiratory: Respiratory effort is even, unlabored, Respiratory pattern is regular, symmetrical. 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 - Infectious Disease History:: Denies. - Social history:: Smoking status: Patient reports the use of cigarette tobacco products, 5-6 per day. Screenin:37 Abuse screen: Denies threats or abuse. Nutritional screening: No deficits noted. ap3 Tuberculosis screening: No symptoms or risk factors identified. 17:48 [facility] ED Fall Risk Assessment (Adult) History of falling in the last 3 months, ap3 including since admission No falls in past 3 months (0 pts) Confusion or Disorientation No (0 pts) Intoxicated or Sedated No (0 pts) Impaired Gait No (0 pts) Mobility Assist Device Used No (0 pt) Altered Elimination No (0 pt) Score/Fall Risk Level 0 - 2 = Low Risk Oriented to surroundings, Maintained a safe environment, Educated pt \T\ family on fall prevention, incl call for assistance when getting out of bed, Assessed \T\ reinforced patient's understanding of fall precautions, Provided non-skid footwear, Hourly rounding (assess needs \T\ fall precautionary measures) done, Used ambulatory aids as needed (educated on \T\ assisted with), Used gait belt as appropriate. Assessment: 13:29 General: Appears uncomfortable. Pain: Complains of pain in head. Neuro: Reports ap3 headache for three days. Cardiovascular: Patient's skin is warm and dry. Respiratory: Airway is patent Respiratory effort is even, unlabored, Respiratory pattern is regular, symmetrical. GI: Reports nausea. 13:30 Reassessment: phlebotomy contacted for blood draw assistance. ap3 16:31 General: awaiting mediation administration prior to disharge. ap3 Vital Signs: 12:30 BP 185 / 125; Pulse 79; Resp 16; Temp 98.4(O); Pulse Ox 97% on R/A; Weight 58.51 kg; hb Height 5 ft. 5 in. ; Pain 8/10; 14:36 BP 139 / 109; Pulse 79; Resp 17; Pulse Ox 100% ; Pain 10/10; ap3 18:34 BP 154 / 99; Pulse 82; Resp 17; Temp 98.7; Pulse Ox 99% ; ap3 12:30 Body Mass Index 21.47 (58.51 kg, 165.1 cm) hb 12:30 Pain Scale: Adult hb 14:36 Pain Scale: Adult ap3 Gene Coma Score: 13:59 Eye Response: spontaneous(4). Motor Response: obeys commands(6). Verbal Response: atif oriented(5). Total: 15. ED Course: 12:18 Patient arrived in ED. mg5 12:23 Mike Willson MD is Attending Physician. atfi 12:31 Triage completed. hb 12:31 Arm band placed on. hb 12:57 CT Head Brain wo Cont In Process Unspecified. EDMS 13:00 Cynthia Harris, RN is Primary Nurse. ap3 13:28 Initial lab(s) drawn, by me, sent to lab. Inserted saline lock: 22 gauge in right hand, ap3 using aseptic technique. Blood collected. 15:17 EKG done, by ED staff, reviewed by Mike Willson MD. ap3 15:36 potline monitor on. Pulse ox on. NIBP on. ap3 15:37 Patient has correct armband on for positive identification. Placed in gown. Bed in low ap3 position. Call light in reach. Side rails up X2. Adult w/ patient. 16:23 EKG done, by ED staff, reviewed by Mike Willson MD. hb 16:29 Johnnie Whipple MD is Referral Physician. atif 16:29 Shun Villegas MD is Referral Physician. atif 17:48 Provided Education on: medications prior to administration . ap3 17:48 No provider procedures requiring assistance completed. ap3 Administered Medications: 13:30 Drug: diphenhydrAMINE IVP 50 mg IVP once Route: IVP; Site: right hand; ap3 14:37 Follow up: Response: No adverse reaction ap3 13:31 Drug: NS 0.9% IV 1000 ml IV at 1 bolus Per protocol; 1000 mL bolus Route: IV; Rate: 1 ap3 bolus; Site: right hand; 13:31 Drug: Ketorolac IVP 30 mg IVP once Route: IVP; Site: right hand; ap3 14:37 Follow up: Response: No adverse reaction ap3 13:31 Drug: metoCLOPramide IVP 10 mg IVP once; over 1 to 2 minutes Route: IVP; Site: right ap3 hand; 14:37 Follow up: Response: No adverse reaction ap3 14:40 Not Given (Duplicate Order): [id number] mg PO once atif 15:33 Drug: Potassium PO Effervescent Tablet 50 mEq PO once; dissolve in 4 ounces of water or ap3 juice Route: PO; 17:57 Follow up: Response: No adverse reaction ap3 15:33 Drug: Norvasc PO 10 mg PO once Route: PO; ap3 17:57 Follow up: Response: No adverse reaction ap3 15:33 Drug: NS 0.9% with KCl IV 20 mEq/L 1000 ml IV at 500 ml/hr continuous Route: IV; Rate: ap3 500 ml/hr; Site: right hand; 15:34 Drug: Potassium Chloride IV 20 mEq IV at per protocol once; administer over 1-2 hours ap3 Route: IV; Rate: per protocol; Site: right hand; 17:27 Follow up: IV Status: Completed infusion; IV Intake: 100ml ap3 17:57 Drug: Potassium PO Effervescent Tablet 50 mEq PO once; dissolve in 4 ounces of water or ap3 juice BEFORE DC Route: PO; 18:40 Follow up: Response: No adverse reaction ap3 Medication: 17:47 VIS not applicable for this client. ap3 Intake: 17:27 IV: 100ml; Total: 100ml. ap3 Outcome: 16:29 Discharge ordered by MD. srivastava 18:40 Patient left the ED. ap3 Signatures: Dispatcher [employer] EDMS Mike Willson MD MD cha Baxter, Heather, RN RN hb Prokisch, Amanda, RN RN ap3 Ernestine Negro mg5 Corrections: (The following items were deleted from the chart) 12:34 12:30 Acuity: BHARAT 3 hb hb
--- NOTE | 2023-10-08 16:30 | EDPHYS ---
Physician Documentation [facility] Name: Margie Garcia Age: 53 yrs Sex: Female : 1970 Arrival Date: 10/08/2023 Time: 12:12 Bed 10 Private MD: MORA Physician Mike Willson HPI: 10/07 13:54 This 53 yrs old Female presents to ER via Ambulatory with complaints of atif Headache, Vomiting. 13:54 The patient complains of pain to the top of head, forehead, left frontal area, left atif side of the back of head, right frontal area, right side of the back of head, right occipital area and right base of the skull. The patient describes the headache as aching, constant. Onset: The symptoms/episode began/occurred 1 day(s) ago. Associated signs and symptoms: The patient has no apparent associated signs or symptoms. Severity of symptoms: At its worst the pain was mild, moderate, in the emergency department the pain is unchanged. Headache History: The patient has had previous headaches and this one is similar to previous episodes. The symptoms are alleviated by. The patient has not experienced similar symptoms in the past. 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 - Infectious Disease History:: Denies. - Social history:: Smoking status: Patient reports the use of cigarette tobacco products, 5-6 per day. ROS: 13:57 Constitutional: Negative for fever, chills, and weight loss, Eyes: Negative for injury, atif pain, redness, and discharge, ENT: Negative for injury, pain, and discharge, Neck: Negative for injury, pain, and swelling, Cardiovascular: Negative for chest pain, palpitations, and edema, Respiratory: Negative for shortness of breath, cough, wheezing, and pleuritic chest pain, Back: Negative for injury and pain, : Negative for injury, bleeding, discharge, and swelling, MS/Extremity: Negative for injury and deformity, Skin: Negative for injury, rash, and discoloration, Psych: Negative for depression, anxiety, suicide ideation, homicidal ideation, and hallucinations, Allergy/Immunology: Negative for hives, rash, and allergies, Endocrine: Negative for neck swelling, polydipsia, polyuria, polyphagia, and marked weight changes, Hematologic/Lymphatic: Negative for swollen nodes, abnormal bleeding, and unusual bruising, 13:57 Abdomen/GI: Positive for nausea and vomiting, 13:57 Neuro: Positive for headache, Exam: 13:57 Constitutional: This is a well developed, well nourished patient who is awake, alert, atif and in no acute distress. Head/Face: Normocephalic, atraumatic. Eyes: Pupils equal round and reactive to light, extra-ocular motions intact. Lids and lashes normal. Conjunctiva and sclera are non-icteric and not injected. Cornea within normal limits. Periorbital areas with no swelling, redness, or edema. ENT: Nares patent. No nasal discharge, no septal abnormalities noted. Tympanic membranes are normal and external auditory canals are clear. Oropharynx with no redness, swelling, or masses, exudates, or evidence of obstruction, uvula midline. Mucous membranes moist. Neck: Trachea midline, no thyromegaly or masses palpated, and no cervical lymphadenopathy. Supple, full range of motion without nuchal rigidity, or vertebral point tenderness. No Meningismus. Chest/axilla: Normal chest wall appearance and motion. Nontender with no deformity. No lesions are appreciated. Cardiovascular: Regular rate and rhythm with a normal S1 and S2. No gallops, murmurs, or rubs. Normal PMI, no JVD. No pulse deficits. Respiratory: Lungs have equal breath sounds bilaterally, clear to auscultation and percussion. No rales, rhonchi or wheezes noted. No increased work of breathing, no retractions or nasal flaring. Abdomen/GI: Soft, non-tender, with normal bowel sounds. No distension or tympany. No guarding or rebound. No evidence of tenderness throughout. Back: No spinal tenderness. No costovertebral tenderness. Full range of motion. Skin: Warm, dry with normal turgor. Normal color with no rashes, no lesions, and no evidence of cellulitis. MS/ Extremity: Pulses equal, no cyanosis. Neurovascular intact. Full, normal range of motion. Neuro: Awake and alert, GCS 15, oriented to person, place, time, and situation. Cranial nerves II-XII grossly intact. Motor strength 5/5 in all extremities. Sensory grossly intact. Cerebellar exam normal. Normal gait. Psych: Awake, alert, with orientation to person, place and time. Behavior, mood, and affect are within normal limits. 13:57 Neuro: Orientation: is normal, appropriate for stated age, no acute changes, Mentation: is normal, appropriate for stated age, no acute changes, Memory: is normal, appropriate for stated age, no acute changes, Cranial nerves: grossly normal, is grossly normal based on the patient's age, no acute changes, Cerebellar function: is grossly normal, is grossly normal based on the patient's age, no acute changes, Motor: moves all fours, strength is normal, Sensation: no obvious gross deficits, appropriate no acute changes, Gait: is steady, Deep tendon reflexes are 2+ (normal) in the bilateral brachioradialis, bicep, tricep and patellar and Achilles tendons, seizure activity, is not displayed by the patient, 15:25 ECG was reviewed by the Attending Physician. atif 15:26 ECG was reviewed by the Attending Physician. atif 16:26 ECG was reviewed by the Attending Physician. atif Vital Signs: 12:30 BP 185 / 125; Pulse 79; Resp 16; Temp 98.4(O); Pulse Ox 97% on R/A; Weight 58.51 kg; hb Height 5 ft. 5 in. ; Pain 8/10; 14:36 BP 139 / 109; Pulse 79; Resp 17; Pulse Ox 100% ; Pain 10/10; ap3 18:34 BP 154 / 99; Pulse 82; Resp 17; Temp 98.7; Pulse Ox 99% ; ap3 12:30 Body Mass Index 21.47 (58.51 kg, 165.1 cm) hb 12:30 Pain Scale: Adult hb 14:36 Pain Scale: Adult ap3 Gene Coma Score: 13:59 Eye Response: spontaneous(4). Motor Response: obeys commands(6). Verbal Response: atif oriented(5). Total: 15. MDM: 12:23 Patient medically screened. atif 13:59 Differential diagnosis: cluster headache, hypoglycemia, hyponatremia, intracerebral atif hemorrhage, sinusitis, subarachnoid bleed, subdural hematoma, temporal arteritis, tension headache. Data reviewed: vital signs, nurses notes, lab test result(s), radiologic studies, CT scan. Consideration of Admission/Observation Escalation of care including admission/observation considered. I considered the following discharge prescriptions or medication management in the emergency department Medications were administered in the Emergency Department. See MAR. Test considered but Not performed: EKG: no ekg. 10/07 12:26 Order name: CBC with Diff; Complete Time: 14:40 [facility] 10/07 12:26 Order name: Comprehensive Metabolic Panel; Complete Time: 15:17 atif 10/07 14:46 Order name: Phosphorus; Complete Time: 15:17 EDMS 10/07 12:26 Order name: CT Head Brain wo Cont; Complete Time: 13:53 [facility] 10/07 14:42 Order name: EKG; Complete Time: 14:43 [facility] 10/07 15:28 Order name: EKG; Complete Time: 15:29 [facility] 10/07 12:27 Order name: Oxygen: 2 LITERS; Complete Time: 13:30 [facility] 10/07 14:42 Order name: PO challenge: juice x 2; Complete Time: 15:33 [facility] 10/07 14:42 Order name: EKG - Nurse/Tech; Complete Time: 15:17 [facility] 10/07 15:28 Order name: EKG - Nurse/Tech: 430PM; Complete Time: 16:23 atif EC:26 Rate is 75 beats/min. Rhythm is regular. QRS [place] is Normal. DE interval is normal. QRS atif interval is normal. QT interval is prolonged at 533 msec. No Q waves. T waves are Normal. Clinical impression: NSR w/ Non-specific ST/T Changes. Interpreted by me. Reviewed by me. 16:26 Rate is 84 beats/min. Rhythm is regular. QRS [place] is Normal. DE interval is normal. QRS atif interval is normal. QT interval is prolonged at 491 msec. No Q waves. T waves are Normal. No ST changes noted. Administered Medications: 13:30 Drug: diphenhydrAMINE IVP 50 mg IVP once Route: IVP; Site: right hand; ap3 14:37 Follow up: Response: No adverse reaction ap3 13:31 Drug: NS 0.9% IV 1000 ml IV at 1 bolus Per protocol; 1000 mL bolus Route: IV; Rate: 1 ap3 bolus; Site: right hand; 13:31 Drug: Ketorolac IVP 30 mg IVP once Route: IVP; Site: right hand; ap3 14:37 Follow up: Response: No adverse reaction ap3 13:31 Drug: metoCLOPramide IVP 10 mg IVP once; over 1 to 2 minutes Route: IVP; Site: right ap3 hand; 14:37 Follow up: Response: No adverse reaction ap3 14:40 Not Given (Duplicate Order): mg PO once atif 15:33 Drug: Potassium PO Effervescent Tablet 50 mEq PO once; dissolve in 4 ounces of water or ap3 juice Route: PO; 17:57 Follow up: Response: No adverse reaction ap3 15:33 Drug: Norvasc PO 10 mg PO once Route: PO; ap3 17:57 Follow up: Response: No adverse reaction ap3 15:33 Drug: NS 0.9% with KCl IV 20 mEq/L 1000 ml IV at 500 ml/hr continuous Route: IV; Rate: ap3 500 ml/hr; Site: right hand; 15:34 Drug: Potassium Chloride IV 20 mEq IV at per protocol once; administer over 1-2 hours ap3 Route: IV; Rate: per protocol; Site: right hand; 17:27 Follow up: IV Status: Completed infusion; IV Intake: 100ml ap3 17:57 Drug: Potassium PO Effervescent Tablet 50 mEq PO once; dissolve in 4 ounces of water or ap3 juice BEFORE DC Route: PO; 18:40 Follow up: Response: No adverse reaction ap3 Disposition Summary: 10/08/23 16:29 Discharge Ordered Notes: Location: Home atif Problem: new atif Symptoms: have improved atif Condition: Stable atif Diagnosis - Headache atif - Essential (primary) hypertension atif - Hypokalemia atif - Tobacco abuse counseling atif - Tobacco use atif Followup: atif - With: Private Physician - When: 2 - 3 days - Reason: Recheck today's complaints, Continuance of care, Re-evaluation by your physician Followup: atif - With: Johnnie Whipple MD - When: 2 - 3 days - Reason: Recheck today's complaints, Re-evaluation by your physician Followup: atif - With: Shun Villegas MD - When: 2 - 3 days - Reason: Recheck today's complaints, Continuance of care, Re-evaluation by your physician Discharge Instructions: - Discharge Summary Sheet [facility] - Potassium Content of Foods atif - General Headache Without Cause atif - Migraine Headache atif - Hypertension, Adult atif - Steps to Quit Smoking atif - Health Risks of Smoking atif - Hypertension, Adult, [id number] atif - Migraine Headache, [id number] atif - How to Take Your Blood Pressure, [id number] atif - General Headache Without Cause, [id number] atif - Hypokalemia [facility] - Managing Your Hypertension [facility] Forms: - Medication Reconciliation Form [facility] - Thank You Letter [facility] - Antibiotic Education atif - Prescription Opioid Use atif - Patient Portal Instructions [facility] - Leadership Thank You Letter [facility] Prescriptions: - Fioricet with Codeine [id number] mg Oral capsule - take 2 capsule ORAL route every 4 hours as needed for pain; do not exceed 6 atif caps per day; 20 capsule; Refills: 0, Product Selection Permitted - ondansetron 4 mg Oral Tablet,disintegrating - take 1 tablet ORAL route every 6 to 8 hours for 5 days; 20 tablet; Refills: 0, [facility] Product Selection Permitted - promethazine 25 mg Oral tablet - take 1 tablet ORAL route every 6 hours as needed for sedation; 15 tablet; atif Refills: 0, Product Selection Permitted - Norvasc 5 mg Oral Tablet - take 1 tablet ORAL route once daily; 20 tablet; Refills: 0, Product Selection atif Permitted - Potassium Chloride 20 meq Oral Packet - take 1 packet ORAL route once daily 1 packet in 6 (six) ounces of water or atif juice; Take after meal; 14 packet; Refills: 0, Product Selection Permitted Signatures: Dispatcher [employer] EDMS Mike Willson MD MD cha Baxter, Heather, RN RN Cynthia Harris RN RN ap3 Corrections: (The following items were deleted from the chart) 12:27 12:27 CBC+H.LAB.BRZ ordered. EDMS EDMS 12:27 12:27 COMPREHENSIVE METABOLIC PANEL+C.LAB.BRZ ordered. EDMS EDMS 12:27 12:27 Urinalysis+U.LAB.BRZ ordered. EDMS EDMS 12:27 12:27 Test, Urine+UC.LAB.BRZ ordered. EDMS EDMS 12:27 12:27 Head Brain Wo Cont+CT.RAD.BRZ ordered. EDMS EDMS 14:45 14:43 PHOSPHORUS+C.LAB.BRZ ordered. EDMS EDMS 15:27 15:25 Rate is 75 beats/min. Rhythm is regular. QRS [place] is Normal. DE interval is atif normal. QRS interval is normal. QT interval is normal. No Q waves. T waves are Inverted in leads III, aVF, V3, V4, V5, V6. No ST changes noted. Clinical impression: NSR w/ Non-specific ST/T Changes. Interpreted by me. Reviewed by me. atif
[2023-10-08 22:51] VITALS: BP 154/99; TEMP 98.7; O2SAT 99
== END 2023-10-08 18:40 | disposition home or self-care (01) ==
LOC: ER 12:12
DX: R51.9 Headache, unspecified (principal); I10 Essential (primary) hypertension; E87.6 Hypokalemia; Z72.0 Tobacco use; Z71.6 Tobacco abuse counseling; Z88.8 Allergy status to other drugs, medicaments and biological substances
CPT/HCPCS: 96365; 85025; 36415; 84100; 80053; 70450; 96375; 99285; 96366; J3480 ×2; J2765; J1200; J7030; 93005

== ENCOUNTER 2024-07-06 01:10 | Emergency (ER) | payer OTHER ==
[2024-07-06] MEDS ORDERED: methocarbamoL 750 MG TAB ONE (01:40)
[2024-07-06] MEDS ORDERED: PROMETHAZINE 25 MG TABLET ONE (01:40)
[2024-07-06] MEDS ORDERED: IBUPROFEN 400 MG TAB ONE (01:40)
[2024-07-06] MEDS ORDERED: HYDROCODONE/APAP 5/325 MG TAB ONE (01:41)
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
--- NOTE | 2024-07-06 03:42 | RAD REPORT ---
EXAM DESCRIPTION: Chest Abd Pelvis Wo Con CLINICAL HISTORY: back injury after a fall COMPARISON: 05/16/2023 TECHNIQUE: CT of the chest, abdomen and pelvis performed without IV contrast. Evaluation of the solid organs and vasculature is suboptimal due to lack of IV contrast. This exam was performed according to our departmental dose-optimization program, which includes automated exposure control, adjustment of the mA and/or kV according to patient size and/or use of iterative reconstruction technique. FINDINGS: Chest: Thyroid: No abnormalities of the visualized thyroid. Great Vessels: Great vessels have normal anatomic configuration. Thoracic Aorta: Atherosclerotic calcification of thoracic aorta. Pulmonary arteries: The main pulmonary artery is not dilated. Heart: Coronary artery atherosclerosis. Lymph Nodes: No enlarged mediastinal lymph nodes identified. Esophagus: No abnormalities of the esophagus identified Other: No additional findings. Lungs: No airspace opacities identified. Pleura: No pleural effusion or pneumothorax. Trachea/Airways: No abnormalities of the visualized trachea or airways. Abdomen: Liver: The liver has normal size and density. Gallbladder: Calcified gallstones. Spleen, Pancreas, and Adrenal Glands: The spleen, pancreas, and adrenal glands are unremarkable. Kidneys: The kidneys have normal size and contour without evidence of solid mass or hydronephrosis. Bilateral nonobstructing nephrolithiasis. Vasculature: Aortoiliac atherosclerosis. IVC is unremarkable. Stomach: The stomach and duodenum have normal course. Other: No free intraperitoneal air. No free fluid or lymphadenopathy. Pelvis: Bladder: Urinary bladder is unremarkable. Bowel: No dilated loops of large or small bowel. Appendix: Normal appendix. Pelvis: Uterus is not enlarged. Bones: Remote anterior right third rib fracture. Levoconvex scoliosis of the lumbar spine. Stable com pression deformity at T12 and L1. Osteopenia. Multilevel endplate spondylosis and facet arthropathy. Moderate disc height narrowing at L2/3 through L5/S1. Osteoarthritic change of the hips. IMPRESSION: 1. No acute traumatic process identified. 2. Cholelithiasis. 3. Nonobstructing bilateral nephrolithiasis. 4. Coronary artery atherosclerosis. Electronically signed by: Roque Minaya DO 07/06/2024 02:57 AM OPERATING ROOM SPECIALIST [id number] Due to temporary technical issues with the PACS/[employer] reporting system, reports are being pamela d by the in-house radiologist without review as a courtesy to ensure prompt reporting the interpreting radiologist is fully responsible for the content of the report. Transcribed Date/Time: 07/06/2024 3:42 AM
[2024-07-06 04:25] VITALS: TEMP 97.6
[2024-07-06 04:26] VITALS: O2SAT 100
[2024-07-06 04:27] VITALS: BP 107/83
== END 2024-07-06 04:19 | disposition home or self-care (01) ==
LOC: ER 01:10
DX: T59.811A Toxic effect of smoke, accidental (unintentional), initial encounter (principal); S22.080A Wedge compression fracture of T11-T12 vertebra, initial encounter for closed fracture; S32.010A Wedge compression fracture of first lumbar vertebra, initial encounter for closed fracture; S34.109A Unspecified injury to unspecified level of lumbar spinal cord, initial encounter; W18.30XA Fall on same level, unspecified, initial encounter; Y92.009 Unspecified place in unspecified non-institutional (private) residence as the place of occurrence of the external cause
CPT/HCPCS: 71250; 74176; 99284; Q0169

== ENCOUNTER 2024-08-24 14:32 | Inpatient (IN) | payer MEDICAID, OTHER ==
[2024-08-24] MEDS ORDERED: DIPHENHYDRAMINE 50 MG/ML VIAL ONE (15:00)
[2024-08-24] MEDS ORDERED: droPERidol 5 MG/2 ML VIAL ONE (15:00)
[2024-08-24] MEDS ORDERED: NA CHLORIDE 0.9% 1,000 ML ONE ×2 (15:01→21:27)
[2024-08-24 15:47] LABS: Absolute Lymphocytes (CBC) 0.6 K/uL (0.7-4.9); Absolute Monocytes 0.2 K/uL (0.1-1.3); Absolute Neutrophil 8.5 K/uL (1.8-8.0); Basophils % 0.2 % (0-1.3); Hematocrit 35.4 % (36.0-45.0); Hemoglobin 12.3 g/dL (12.0-15.0); Lymphocytes % 6.2 % (15.3-44.8); MCH 33.3 pg (27.0-35.0); MCHC 34.7 g/dL (32.0-36.0); MPV 7.7 fL (7.6-11.3); Monocytes % 2.5 % (3.3-12.3); Neutrophils % 91.1 % (41.7-73.7); Platelets 292 thou/uL (152-406); RBC Red Blood Cell Count 3.69 M/uL (3.86-4.86); Red Cell Distribution Width 13.7 % (12.1-15.2)
[2024-08-24 16:14] LABS: Albumin 3.7 g/dL (3.4-5.0); Albumin/Globulin Ratio 0.9 (1.1-1.8); Anion Gap 10.3 mEq/L (5.0-15.0); Bilirubin Total 0.4 mg/dL (0.2-1.0); Potassium 3.3 mEq/L (3.5-5.1); Protein, Total 7.7 g/dL (6.4-8.2)
[2024-08-24 16:57] LABS: Specific Gravity 1.022 (1.005-1.030); Sqamous Epithelial <5 /HPF (None Seen); Transitional Epithelial <5 /HPF (None Seen); Urine Bacteria <20 /HPF (<20); Urine Bilirubin NEGATIVE (Negative); Urine Blood Negative (Negative); Urine Clarity Clear (Clear); Urine Color Light-Yellow (Yellow); Urine Culture Reflex Order NOT NEEDED; Urine Glucose TRACE (Negative); Urine Ketones 1+ (Negative); Urine Microscopic Reflex YN ORDER UMIC; Urine Mucus Slight /HPF (None Seen); Urine Nitrite NEGATIVE (Negative); Urine Protein 1+ (Negative); Urine RBC <5 /HPF (None Seen); Urine Urobilinogen Normal (Normal); Urine WBC <5 /HPF (<5); Urine pH 8.5 (5.0-7.0)
[2024-08-24] MEDS ORDERED: HYDROMORPHONE HCL 0.5 MG/0.5 ML INJ ONE (17:03)
--- NOTE | 2024-08-24 17:57 | RAD REPORT ---
EXAMINATION: Head Brain Wo Cont CLINICAL INDICATION: Female, 54 years old.HEADACHE TECHNIQUE: Axial CT images from the skull base to the vertex without intravenous contrast. Coronal an d sagittal reformatted images were created from the data set. One or more of the following dose reduction techniques were used: Automated exposure control, adjustment of the mA and/or kV according to patient size, and/or iterative reconstruction. Unless otherwise specified, incidental findings do not require dedicated imaging follow-up. [id number]. COMPARISON: 10/08/2023 FINDINGS: INTRACRANIAL: No acute intracranial hemorrhage. No hydrocephalus. No mass effect or midline shift. No significant white matter disease. VASCULATURE: No visualized abnormalities in the arteries or dural venous sinuses. SCALP/SKULL: No calvarial fracture identified. No acute soft tissue abnormality. SINUSES: The visualized paranasal sinuses and mastoid air cells are predominantly clear. No significa nt mastoid fluid. IMPRESSION: No acute intracranial abnormality.
--- NOTE | 2024-08-24 18:09 | RAD REPORT ---
EXAMINATION: CT ABDOMEN AND PELVIS WITH CONTRAST CLINICAL INDICATION: Female, 54 years old.ABD PAIN TECHNIQUE: CT abdomen and pelvis was performed, after the administration of IV contrast, [facility]. Axial, sagittal and coronal reconstructions were obtained. One or more of the following dose reduction techniques were used: Automated exposure control, adjustment of the mA and/o r kV according to patient size, and/or iterative reconstruction. Unless otherwise specified, incidental findings do not require dedicated imaging follow-up. [id number]. COMPARISON: 05/16/2023 FINDINGS: LOWER CHEST: No acute process identified.No significant pericardial effusion. Moderate circumferentia l thickening of the distal esophagus which could reflect esophagitis. Endoscopy could better evaluate. UPPER GI: No significant abnormality. LIVER: Benign appearing low density liver lesions. No suspicious mass. GALLBLADDER/BILE DUCTS: Distended gallbladder with cholelithiasis. No pericholecystic infiltrate khan ges.? PANCREAS: No mass, ductal dilation, or rik-pancreatic fluid. SPLEEN: Unremarkable. ADRENALS: No adrenal masses. KIDNEYS AND URETERS: No hydronephrosis.Low density and/or too small to characterize renal lesions whi ch are statistically benign.Nonobstructing renal calculi. ABDOMINAL AORTA AND OTHER VESSELS: Mild atherosclerotic changes. PERITONEUM: No abnormal free fluid. No free air. LYMPH NODES: No pathologic lymphadenopathy. ABDOMINAL WALL: Unremarkable SMALL BOWEL/COLON: Moderate to large pancolonic stool burden. The mid and distal sigmoid wall is thic kened, similar to prior though.Normal appendix. URINARY BLADDER: Underdistended but grossly unremarkable. REPRODUCTIVE ORGANS: No pathologic process. MUSCULOSKELETAL: No acute or suspicious osseous abnormality. ADDITIONAL FINDINGS: None. IMPRESSION: 1. Cholelithiasis with distended gallbladder but no pericholecystic inflammatory changes. 2. Moderate to large pancolonic stool burden. Similar wall thickening at the sigmoid compared with . 3. Nonobstructive nephrolithiasis.
--- NOTE | 2024-08-24 18:49 | RAD REPORT ---
Abdomen Exam Limited: 08/24/2024 6:29 PM CLINICAL HISTORY: ABD PAIN STUDY: Limited right upper quadrant ultrasound of abdomen. COMPARISON: Prior films compared to CT Abdomen study dated same-day FINDINGS: Liver: Limited evaluation but grossly unremarkable. Bile ducts: No intrahepatic or extrahepatic biliary ductal dilatation. Common bile duct measures 5 mm. Gallbladder: Distended gallbladder with cholelithiasis. No gallbladder wall thickening or pericholecy stic fluid. A sonographic Barnes sign was reported. IMPRESSION: Distended gallbladder with cholelithiasis but no gallbladder wall thickening or pericholecystic fluid . A sonographic Barnes sign was reported. This could indicate mild or early acute cholecystitis in the appropriate clinical setting. A HIDA scan could confirm cystic duct patency.
--- NOTE | 2024-08-24 19:09 | ER ---
Nurse's Notes [facility] Name: Margie Garcia Age: 54 yrs Sex: Female : 1970 Arrival Date: 08/24/2024 Time: 14:32 Bed 17 Private MD: Diagnosis: Acute cholecystitis Presentation: 08/24 14:42 Chief complaint: EMS states: abdominal pain, nausea/vomiting, headache. Coronavirus kj2 screen: Client denies travel out of the [place] in the last 14 days. Ebola Screen: No symptoms or risks identified at this time. Initial Sepsis Screen: Does the patient meet any 2 criteria? No. Patient's initial sepsis screen is negative. Does the patient have a suspected source of infection? No. Patient's initial sepsis screen is negative. Risk Assessment: Do you want to hurt yourself or someone else? Patient reports no desire to harm self or others. Onset of symptoms was August 24, 2024. Care prior to arrival: Medication(s) given: 100mc fentanyl. 14:42 Method Of Arrival: EMS: [facility] kj2 14:42 Acuity: BHARAT 3 kj2 Triage Assessment: 14:43 General: Appears in no apparent distress. Behavior is calm, cooperative. Pain: kj2 Complains of pain in headache Pain currently is 5 out of 10 on a pain scale. Neuro: Level of Consciousness is awake, alert, obeys commands, Oriented to person, place, time, situation. Cardiovascular: Patient's skin is warm and dry. Respiratory: Airway is patent Respiratory effort is even, unlabored. GI: No signs and/or symptoms were reported involving the gastrointestinal system. : No signs and/or symptoms were reported regarding the genitourinary system. 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 - Infectious Disease History:: Denies. - Social history:: Smoking status: Patient denies any tobacco usage or history of. Screenin:45 [facility] ED Fall Risk Assessment (Adult) History of falling in the last 3 months, kj2 including since admission No falls in past 3 months (0 pts) Confusion or Disorientation No (0 pts) Intoxicated or Sedated No (0 pts) Impaired Gait No (0 pts) Mobility Assist Device Used No (0 pt) Altered Elimination No (0 pt) Score/Fall Risk Level 0 - 2 = Low Risk Maintained a safe environment, Hourly rounding (assess needs \T\ fall precautionary measures) done. Abuse screen: Denies threats or abuse. Denies injuries from another. Nutritional screening: No deficits noted. Tuberculosis screening: No symptoms or risk factors identified. Assessment: 14:45 General: see triage assessment. kj2 15:44 Reassessment: Patient appears in no apparent distress at this time. Patient and/or kj2 family updated on plan of care and expected duration. Pain level reassessed. Patient is alert, oriented x 3, equal unlabored respirations, skin warm/dry/pink. 17:04 Reassessment: Patient appears in no apparent distress at this time. Patient and/or kj2 family updated on plan of care and expected duration. Pain level reassessed. Patient is alert, oriented x 3, equal unlabored respirations, skin warm/dry/pink. Vital Signs: 14:40 BP 144 / 89; Pulse 72; Resp 20; Temp 100; Pulse Ox 98% ; Weight 65.32 kg; Height 5 ft. kj2 2 in. ; 15:53 BP 143 / 81; Pulse 72; Resp 18; Pulse Ox 98% on R/A; kj2 17:04 BP 153 / 90; Pulse 78; Resp 20; Pulse Ox 100% on R/A; kj2 14:40 Body Mass Index 26.34 (65.32 kg, 157.48 cm) kj2 ED Course: 14:34 Patient arrived in ED. sb4 14:34 Eva Toledo PA-C is PHCP. sb4 14:34 Zachary Lunsford MD is Attending Physician. sb4 14:35 Maintain EMS IV. Dressing intact. Site clean \T\ dry. Gauge \T\ site: 18 g right foot. kj 2 Flushed with 10 mL NS. 14:36 Shelby Reddy RN is Primary Nurse. kj2 14:43 Triage completed. kj2 14:45 Patient has correct armband on for positive identification. Bed in low position. Call kj2 light in reach. Side rails up X 1. Provided Education on: call light. 15:30 Radiology exam delayed due to lab results not completed at this time. (BUN/Creatinine) nj IV insertion attempt and/or patient not having appropriate IV at this time. 15:32 Accessed peripheral vein via ultrasound, utilizing dynamic ultrasound technique Blood hb collected. 20G LEFT AC using 20G Nexia IV catheter per hospital protocol. Good blood return. Difficult to flush. 17:13 No provider procedures requiring assistance completed. kj2 17:44 CT Abd/Pelvis - IV Contrast Only In Process Unspecified. EDMS 17:44 Head Brain Wo Cont CT In Process Unspecified. EDMS 18:31 Abdomen Limited US In Process Unspecified. EDMS 19:07 Prince Ferreira MD is Hospitalizing Provider. sb4 23:59 Arm band placed on right wrist. Patient placed in waiting room. cp4 23:59 Patient admitted, IV remains in place. cp4 Administered Medications: 15:14 Drug: diphenhydrAMINE IVP 25 mg IVP once Route: IVP; Site: Other; kj2 16:56 Follow up: Response: No adverse reaction kj2 15:15 Drug: NS 0.9% IV 1000 ml IV at 1 bolus Per protocol; to be given as a bolus over 60 kj2 minutes Route: IV; Rate: 1 bolus; Site: Other; 15:15 Drug: Droperidol IVP 2.5 mg IVP once Route: IVP; Site: Other; kj2 16:56 Follow up: Response: No adverse reaction kj2 17:00 Drug: HYDROmorphone IVP 0.5 mg IVP once Route: IVP; Site: left antecubital; kj2 19:34 Drug: Ativan IVP 1 mg IVP once Route: IVP; Site: right antecubital; kj2 19:34 Drug: Piperacillin-Tazobactam IVPB 3.375 grams IVPB once over 60 mins; (mix in NS 100 kj2 mL) Route: IVPB; Infused Over: 60 mins; Site: right antecubital; Medication: 17:13 VIS not applicable for this client. kj2 Outcome: 19:09 Decision to Hospitalize by Provider. sb4 23:59 Admitted to ER Hold. Please see [facility] for further documentation. cp4 23:59 Condition: stable 23:59 Instructed on the need for admit, 08/25 11:42 Patient left the ED. eb Signatures: Dispatcher [employer] EDDemi Lan, RN RN Berny Mercado Elizabeth eb Brown, Sophia, PA-C PA-C stephanie4 Christine Bean cp4 Shelby Reddy RN RN kj2 Corrections: (The following items were deleted from the chart) 08/24 15:34 15:34 Radiology exam delayed due to lab results not completed at this time. nj (BUN/Creatinine) IV insertion attempt and/or patient not having appropriate IV at this time. nj 17:14 17:04 HYDROmorphone IVP 0.5 mg IVP in right antecubital kj2 kj2
--- NOTE | 2024-08-24 19:09 | EDPHYS ---
Physician Documentation [facility] Name: Margie Garcia Age: 54 yrs Sex: Female : 1970 Arrival Date: 08/24/2024 Time: 14:32 Bed 17 Private MD: ED Physician Zachary Lunsford HPI: 08/24 14:37 This 54 yrs old Female presents to ER via Unassigned with complaints of abdominal pain, sb4 n/v, headache. 14:38 Patient states she started experiencing headache, abdominal pain, nausea, and vomiting sb4 yesterday. She states that this has happened to her several times in the past secondary to her migraines. States she is not on any medications for her migraines because she cannot afford them. States that her migraines are typically stress-induced and she is under a lot of stress right now as her mother is in the hospital and suffers from dementia. 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 - Infectious Disease History:: Denies. - Social history:: Smoking status: Patient denies any tobacco usage or history of. ROS: 14:38 Constitutional: Negative for fever, chills, and weight loss, sb4 14:38 Abdomen/GI: Positive for abdominal pain, nausea and vomiting, 14:38 Neuro: Positive for headache, 14:38 All other systems are negative, Exam: 14:38 Head/Face: Normocephalic, atraumatic. Eyes: Extra-ocular motions intact. Periorbital sb4 areas with no swelling, redness, or edema. Respiratory: No increased work of breathing, no retractions or nasal flaring. Skin: Warm, dry with normal turgor. Normal color with no rashes, no lesions, and no evidence of cellulitis. 14:38 Constitutional: The patient appears alert, awake, obviously ill, pale, 14:38 ENT: Mouth: Oral mucosa: dry, 14:38 Abdomen/GI: Inspection: abdomen appears normal, Bowel sounds: normal, Palpation: soft, mild abdominal tenderness, in all quadrants, Vital Signs: 14:40 BP 144 / 89; Pulse 72; Resp 20; Temp 100; Pulse Ox 98% ; Weight 65.32 kg; Height 5 ft. kj2 2 in. ; 15:53 BP 143 / 81; Pulse 72; Resp 18; Pulse Ox 98% on R/A; kj2 17:04 BP 153 / 90; Pulse 78; Resp 20; Pulse Ox 100% on R/A; kj2 14:40 Body Mass Index 26.34 (65.32 kg, 157.48 cm) kj2 MDM: 14:34 Medical Screening Exam initiated sb4 19:07 Data reviewed: vital signs, nurses notes, EMS record, lab test result(s), radiologic sb4 studies, I have discussed the patient's presentation/case with the attending Emergency Department Physician; and as a result, I will admit patient. Consideration of Admission/Observation Patient was admitted/placed on observation. Management of patient was discussed with the following: Team Assembly Line Machine Operator: Dr. Nguyen, agrees to consult. Counseling: I had a detailed discussion with the patient and/or guardian regarding the historical points, exam findings, and any diagnostic results supporting the discharge/admit diagnosis, the presence of at least one elevated blood pressure reading (>120/80) during this emergency department visit, lab results, radiology results, the need for further work-up and treatment in the hospital. 08/24 14:36 Order name: CBC with Diff; Complete Time: 16:01 cox monett 08/24 14:36 Order name: CMP; Complete Time: 16:15 cox [place] 08/24 14:36 Order name: Lipase; Complete Time: 16:15 4 08/24 14:36 Order name: Urinalysis w/ reflexes; Complete Time: 16:58 cox [place]ett 08/24 19:30 Order name: Lactate w/ 2H reflex if indic. EDAR 08/24 19:30 Order name: Magnesium EDAR 08/24 19:30 Order name: Phosphorus EDAR 08/24 19:30 Order name: Urinalysis w/ reflexes EDAR 08/24 19:30 Order name: Basic Metabolic Panel EDAR 08/24 19:30 Order name: Basic Metabolic Panel [facility] 08/24 19:30 Order name: CBC with Automated Diff [facility] 08/24 19:30 Order name: CBC with Automated Diff EDMS 08/24 19:30 Order name: Lipid Profile EDMS 08/24 19:30 Order name: Lipid Profile EDMS 08/25 05:21 Order name: Phosphorus EDMS 08/25 05:21 Order name: Magnesium EDAR 08/25 05:21 Order name: Lactate w/ 2H reflex if indic. EDMS 08/24 14:36 Order name: CT Abd/Pelvis - IV Contrast Only; Complete Time: 18:12 sb4 08/24 14:36 Order name: Head Brain Wo Cont CT; Complete Time: 17:58 sb4 08/24 18:12 Order name: Abdomen Limited US; Complete Time: 18:50 sb4 08/24 14:36 Order name: IV Saline Lock; Complete Time: 15:44 sb4 08/24 14:36 Order name: Labs collected and sent; Complete Time: 15:44 sb4 08/24 19:07 Order name: NPO; Complete Time: 19:09 sb4 Administered Medications: 15:14 Drug: diphenhydrAMINE IVP 25 mg IVP once Route: IVP; Site: Other; kj2 16:56 Follow up: Response: No adverse reaction kj2 15:15 Drug: NS 0.9% IV 1000 ml IV at 1 bolus Per protocol; to be given as a bolus over 60 kj2 minutes Route: IV; Rate: 1 bolus; Site: Other; 15:15 Drug: Droperidol IVP 2.5 mg IVP once Route: IVP; Site: Other; kj2 16:56 Follow up: Response: No adverse reaction kj2 17:00 Drug: HYDROmorphone IVP 0.5 mg IVP once Route: IVP; Site: left antecubital; kj2 19:34 Drug: Ativan IVP 1 mg IVP once Route: IVP; Site: right antecubital; kj2 19:34 Drug: Piperacillin-Tazobactam IVPB 3.375 grams IVPB once over 60 mins; (mix in NS 100 kj2 mL) Route: IVPB; Infused Over: 60 mins; Site: right antecubital; Disposition Summary: 08/24/24 19:09 Hospitalization Ordered Notes: Hospitalization Status: Inpatient Admission sb4 Provider: Prince louie Ferreira Condition: Fair sb4 Problem: new sb4 Symptoms: are unchanged sb4 Bed/Room Type: Standard sb4 Location: Telemetry/MedSurg (Inpatient)(08/25/24 10:57) eb Room Assignment: 405(08/25/24 10:57) eb Diagnosis - Acute cholecystitis sb4 Forms: - Medication Reconciliation Form sb4 - SBAR form sb4 - Leadership Thank You Letter sb4 Signatures: Dispatcher [employer] EDMS Ruth Perry eb Barbara Fernandes RN RN lg3 Eva Toledo PA-C PADerrick sb4 Christine Bean cp4 Shelby Reddy, MARCK RN kj2 Corrections: (The following items were deleted from the chart) 14:36 14:36 CBC+H.LAB.BRZ ordered. EDMS EDMS 14:36 14:36 COMPREHENSIVE METABOLIC PANEL+C.LAB.BRZ ordered. EDMS EDMS 14:36 14:36 LIPASE+C.LAB.BRZ ordered. EDMS EDMS 14:36 14:36 Urinalysis+U.LAB.BRZ ordered. EDMS EDMS 14:37 14:37 Abdomen Pelvis W Con+CT.RAD.BRZ ordered. EDMS EDMS 14:37 14:37 Head Brain Wo Cont+CT.RAD.BRZ ordered. EDMS EDMS 19:53 19:09 Telemetry/MedSurg (Inpatient) sb4 lg3 19:53 19:09 sb4 lg3 08/25 10:57 08/24 19:53 BR ER HOLD lg3 eb 08/25 10:57 08/24 19:53 ERHOLD- lg3 eb
[2024-08-24] MEDS ORDERED: NA CHLORIDE 0.9% 100 ML ONE (19:23)
[2024-08-24] MEDS ORDERED: PIPERACIL/TAZO 3.375 GM VIAL IV ONE (19:23)
[2024-08-24] MEDS ORDERED: LORazepam 2 MG/ML VIAL ONE (19:23)
[2024-08-24] MEDS ORDERED: ACETAMINOPHEN 325 MG TABLET PO PRN (19:26)
[2024-08-24] MEDS ORDERED: PIPER TAZO 3.375 GM in NA CHLORIDE 0.9% 100 ML IV SCH (19:28)
[2024-08-24] MEDS: PANTOPRAZOLE 40 MG INJ IVP SCH (19:29)
[2024-08-24] MEDS ORDERED: SODIUM CHLORIDE 0.9% 10ML INJ IV PRN (19:29)
--- NOTE | 2024-08-24 19:36 | P.HP ---
Certification for Inpatient Patient admitted to: Observation With expected LOS: <2 Midnights Practitioner: I am a practitioner with admitting privileges, knowledge of patient current condition, hospital course, and medical plan of care. Services: Services provided to patient in accordance with Admission requirements found in Title 42 Section 412.3 of the Code of Federal Regulations Patient History Date of Service: 08/24/24 Reason for admission: abdominal pain History of Present Illness: Patient is a 54 year old female with HTN, migraine headache and anxiety. She presents with acutely worsening abdominal pain associated with intractable nausea and vomiting. She is having non-bilious emesis. Patient is also reporting subjective fever and chills. Abdominal imaging with acute calculous cholecystitis. General surgery has been contacted by ER. Patient will be admitted for cholecystectomy. Allergies sumatriptan [From Imitrex] Allergy (Verified 05/12/23 03:46) Hives clindamycin Adverse Reaction (Verified 05/12/23 03:46) unknown Home Medications: Trazodone [Desyrel*] 200 mg PO BEDTIME 10/07/19 Alprazolam [Xanax] 2 mg PO BID PRN #6 10/12/19 carvediloL [Coreg*] 25 mg PO BID tab 10/12/19 cloNIDine HCL [Catapres*] 0.3 mg PO TID tablet 10/12/19 Sennosides/Docusate Sodium [Stool Softener-Laxative Tablet] 1 each PO DAILY PRN 05/12/23 Amox/Clavulanate [Augmentin 875-125 Tab] 875 mg PO BID #14 tab 05/19/23 Hydrocodone/Acetaminophen [Hydrocodon-Acetaminophen 5-325] 1 each PO Q8H PRN #15 tab 05/19/23 Promethazine Tab [Phenergan] 12.5 mg PO Q6HP PRN #16 tab 05/19/23 - Past Medical/Surgical History Diabetic: No -: Hypertension -: Migraine -: Back pain -: None Psychosocial/ Personal History: Patient lives at home with her son - Family History Father -: Hypertension, Other (see notes) Notes: migraines Mother -: Hypertension, Other (see notes) Notes: migraines - Social History Alcohol use: No CD- Drugs: Yes Caffeine use: No Physical Examination - Physical Exam General: Acute distress HEENT: Atraumatic, Normocephalic Respiratory: Clear to auscultation bilaterally, Normal air movement Cardiovascular: No edema, Normal pulses, Regular rate/rhythm, Normal S1 S2 Gastrointestinal: Tenderness Musculoskeletal: No clubbing, No swelling, No contractures, No erythema, No tenderness, No warmth Neurological: Normal speech - Studies Laboratory Data (last 24 hrs) 08/24/24 08/24/24 15:28 15:28 WBC 9.30 Hgb 12.3 Hct 35.4 L Plt Count 292 Sodium 140 Potassium 3.3 L BUN 16 Creatinine 0.99 Glucose 131 H Total Bilirubin 0.4 AST 17 ALT 24 Alkaline Phosphatase 71 Lipase 16 Assessment and Plan - Problems (Diagnosis) (1) Acute calculous cholecystitis Current Visit: Yes Status: Acute (2) Abdominal pain Current Visit: No Status: Acute (3) Hypokalemia due to excessive gastrointestinal loss of potassium Current Visit: No Status: Acute (4) Intractable nausea and vomiting Current Visit: No Status: Acute (5) Hypertension Current Visit: No Status: Chronic Qualifiers: - Plan Assessment Patient is a 54 year old female with HTN, migraine headache and anxiety. She is being admitted for acute calculous cholecystitis after she presented with intractable abdominal pain, nausea and vomiting. She is not septic Acute calculous cholecystitis Intractable nausea and vomiting HTN Migraine headache Anxiety PLAN: Will admit under observation IV fluid infusion and Zosyn PPI and Zofran PRN Multimodal pain regimen NPO after midnight for cholecystectomy General surgery has been consulted Resume rest of home medications upon reconciliation - Advance Directives Does patient have a Living Will: No Does patient have a Durable POA for Healthcare: No
[2024-08-24] MEDS: POLYETHYL GLY 3350 17 GM/DOSE PO SCH (19:49)
[2024-08-24] MEDS: KCL 20 MEQ/100 mL IVPB 20 MEQ/100 ML BAG IV SCH (20:00)
[2024-08-24] MEDS: NA CHLORIDE 0.9% 1,000 ML IV SCH (20:00)
[2024-08-24 20:59] VITALS: BMI 24.7
[2024-08-24] MEDS: DOCUSATE NA 100 MG CAP PO SCH (21:00)
[2024-08-24] MEDS ORDERED: PANTOPRAZOLE 40 MG INJ ONE (21:24)
[2024-08-24] MEDS ORDERED: POLYETHYL GLY 3350 17 GM/DOSE ONE (21:25)
[2024-08-24] MEDS ORDERED: KCL 20 MEQ/100 mL IVPB 100 ML IV ONE ×2 (21:26→23:36)
[2024-08-24] MEDS ORDERED: DOCUSATE NA 100 MG CAP PO ONE (22:31)
[2024-08-25] MEDS: PIPER TAZO 3.375 GM in NA CHLORIDE 0.9% 100 ML IV SCH ×2 (01:00→03:30)
[2024-08-25] MEDS ORDERED: NA CHLORIDE 0.9% 100 ML ONE ×2 (01:47→08:00)
[2024-08-25] MEDS ORDERED: PIPERACIL/TAZO 3.375 GM VIAL IV ONE ×2 (01:48→08:00)
[2024-08-25] MEDS ORDERED: HYDROMORPHONE HCL 1 MG/ML INJ ONE ×2 (04:05→07:59)
[2024-08-25] MEDS: HYDROMORPHONE HCL 1 MG/ML INJ IV PRN (04:08)
[2024-08-25 04:45] LABS: Absolute Lymphocytes (CBC) 1.7 K/uL (0.7-4.9); Basophils % 0.3 % (0-1.3); Eosinophils % 0.1 % (0-4.4); Hematocrit 29.8 % (36.0-45.0); Hemoglobin 10.4 g/dL (12.0-15.0); MCH 33.8 pg (27.0-35.0); MCHC 34.9 g/dL (32.0-36.0); MCV 96.9 fL (80-100); MPV 7.6 fL (7.6-11.3); Neutrophils % 74.6 % (41.7-73.7); Platelets 252 thou/uL (152-406); RBC Red Blood Cell Count 3.08 M/uL (3.86-4.86); Red Cell Distribution Width 13.6 % (12.1-15.2)
[2024-08-25 04:54] LABS: Anion Gap 8.7 mEq/L (5.0-15.0); Magnesium 2.1 mg/dL (1.6-2.4); Phosphorus 2.9 mg/dL (2.5-4.9); Potassium 3.7 mEq/L (3.5-5.1)
[2024-08-25] MEDS ORDERED: NA CHLORIDE 0.9% 1,000 ML ONE (07:13)
[2024-08-25] MEDS: ENOXAPARIN 40 MG/0.4 ML SQ SCH (07:42)
[2024-08-25] MEDS ORDERED: ONDANSETRON 4 MG/2 ML VIAL ONE (07:59)
[2024-08-25] MEDS: KCL 20 MEQ/100 mL IVPB 20 MEQ/100 ML BAG IV SCH (08:00)
[2024-08-25] MEDS ORDERED: PANTOPRAZOLE 40 MG INJ ONE (08:00)
[2024-08-25] MEDS ORDERED: KCL 20 MEQ/100 mL IVPB 100 ML IV ONE (08:00)
[2024-08-25] MEDS ORDERED: PNEUMOCOCCAL VACCINE 0.5 ML IMVAC ONE (08:00)
[2024-08-25] MEDS: ONDANSETRON 4 MG/2 ML VIAL IV PRN (08:10)
[2024-08-25] MEDS: FENTANYL CITR 100 MCG/2 ML ONE ×3 (11:47→14:32)
[2024-08-25] MEDS ORDERED: ROCURONIUM 50 MG/5 ML VIAL IV ONE (11:58)
[2024-08-25] MEDS ORDERED: LIDOCAINE 2% MPF 5 ML VIAL ONE (11:58)
[2024-08-25] MEDS ORDERED: MIDAZOLAM HCL 2 MG/2 ML INJ ONE (11:58)
[2024-08-25] MEDS ORDERED: propofoL 200 MG/20 ML VIAL IV ONE (11:58)
[2024-08-25] MEDS: ONDANSETRON 4 MG/2 ML VIAL ONE (12:00)
[2024-08-25] MEDS: Ringers Lactate 1,000 ML IV ONE (13:13)
--- NOTE | 2024-08-25 13:32 | CON ---
Date of Consultation: 08/25/2024 Reason For Service: Symptomatic cholelithiasis, acute cholecystitis, intractable right upper quadran t abdominal pain. History Of Present Illness: This is the case of a 54-year-old patient, who comes to the hospital wit h abdominal pain, nausea, and vomiting. She had this episode before, but last night started, worst t his morning, did not get better, diagnosed with acute cholecystitis and symptomatic cholelithiasis, a nd a surgical consult was obtained for cholecystectomy. She denies any dysuria, hematuria, hematoche omari, melena. Denies any recent traveling out of the country. Denies any family member sick at home. Review of Systems: Ten points otherwise unremarkable. Past Medical History: Includes anxiety, hypertension. Medications: Carvedilol, clonidine, and she states she takes sometimes hydrocodone or oxycodone for her migraines. Allergies: IMITREX. Past Surgical History: She had laparotomy in the abdomen before. She does not remember exactly for what. It was done many years ago. Family History: Noncontributory. Physical Examination: Vital Signs: Reviewed. General: The patient is awake, alert. HEENT: Pupils are equal and reactive. Anicteric. Neck: Supple. Chest: Clear. Heart: S1, S2. Abdomen: Epigastric, right upper quadrant pain; radiation to the back. Breasts: Deferred. Pelvic: Deferred. Rectal: Deferred. Extremities: Good capillary refill. Laboratory Data: Blood work shows a WBC count of 10.8, hemoglobin of 10.4, platelets of 252. Potass ium 3.7, creatinine is 0.73. Total bilirubin of 0.4, alkaline phosphatase is 71. Ultrasound of the abdomen and pelvis shows distended gallbladder with cholelithiasis with Barnes sign positive. CAT sc an of the abdomen and pelvis interpreted by Dr. Maciel as cholelithiasis with distended gallbladder. Assessment: This is a 54-year-old patient with symptomatic cholelithiasis, acute cholecystitis. The benefits, alternatives, and risks of laparoscopic possible open cholecystectomy fully explained, whi ch include, but not limited to infection, bleeding, damage to adjacent structures, anesthesia complic ation, choledocholithiasis, bile leak, pancreatitis, ID, and even . She also understands this m ay not relieve symptoms, she might need more than one surgical intervention. She understood, signed a consent. She wants to have surgery done during this admission. TIA/DAVID Voice ID: [id number] Report ID: [id number]
[2024-08-25] MEDS ORDERED: FENTANYL CITR 100 MCG/2 ML ONE (13:43)
--- NOTE | 2024-08-25 13:57 | P.BOP ---
Preoperative diagnosis: acute cholecystitis, symptomatic cholelithiasis Postoperative diagnosis: same Primary procedure: Laparoscopic cholecystectomy Slag Motor Operator: Yu Burns (CUSTOMER MANAGEMENT SPECIALIST) Estimated blood loss: <10cc Specimen: gb Findings: as above Anesthesia: General Complications: None Transferred to: Recovery Room Condition: Good
[2024-08-25] MEDS ORDERED: dexAMETHasone 4 MG/ML VIAL ONE (14:00)
[2024-08-25] MEDS ORDERED: Mastisol Adhesive Liq ONE (14:01)
[2024-08-25] MEDS: PROMETHAZINE INJ 25 MG/ML AMP ONE (14:20)
[2024-08-25] MEDS: SUGAMMADEX SODIUM 200 MG/2 ML VIAL IV ONE (14:28)
[2024-08-25] MEDS: SUCCINYLCHOLINE 20 MG/ML (10 ML) IV ONE (14:29)
[2024-08-25 15:02] VITALS: O2SAT 96
[2024-08-25] MEDS: HYDROCODONE/APAP 5/325 MG TAB PO PRN (15:35)
--- NOTE | 2024-08-25 18:51 | P.PN ---
Subjective Date of Service: 08/25/24 Chief Complaint: abdominal pain Saw patient in PACU, status post laparoscopic cholecystectomy Review of Systems 10-point ROS is otherwise unremarkable Physical Examination - Vital Signs Temperature: 98.4 F Blood Pressure: 152/92 Pulse: 62 Respirations: 18 Pulse Ox (%): 94 - Physical Exam General: Alert, Oriented x3 HEENT: Atraumatic Neck: Supple Respiratory: Clear to auscultation bilaterally Cardiovascular: No edema, Regular rate/rhythm Gastrointestinal: Normal bowel sounds Musculoskeletal: No clubbing, No swelling, No tenderness Neurological: Normal gait - Studies Laboratory Data (last 24 hrs) 08/25/24 08/25/24 08/24/24 04:21 04:21 Unknown WBC 10.80 Hgb 10.4 L D Hct 29.8 L Plt Count 252 Sodium 139 Potassium 3.7 BUN 18 Creatinine 0.73 Glucose 106 Phosphorus 2.9 Cancelled Magnesium 2.1 Cancelled Triglycerides 72 Cholesterol 165 HDL Cholesterol 46 Cholesterol/HDL Ratio 3.59 Assessment And Plan - Plan 1. Intractable nausea and vomiting secondary to acute cholecystitis -Status post laparoscopic cholecystectomy on 08/25/2024 -On Zosyn -Likely discharge home tomorrow if clinically stable 2. DVT prophylaxis -Subcu Lovenox
[2024-08-25] MEDS ORDERED: ALPRAZOLAM 1 MG TABLET PO SCH (21:00)
--- NOTE | 2024-08-26 00:18 | OP ---
Date of Procedure: 08/25/2024 Surgeon: Keagan Nguyen MD Preoperative Diagnoses: Acute cholecystitis, symptomatic cholelithiasis. Postoperative Diagnoses: Acute cholecystitis, symptomatic cholelithiasis. Procedure: Laparoscopic cholecystectomy. Anesthesia: General plus local. Estimated Blood Loss: Less than 10 cc. Specimen: Gallbladder. Complications: None. Indications: This is a case of a 54-year-old patient, comes to us with above diagnoses. Fully expla ined the benefits, alternatives, and risks of laparoscopic possible open cholecystectomy, which inclu de, but not limited to infection, bleeding, damage to adjacent structures, anesthesia complication, c holedocholithiasis, bile leak, pancreatitis, RI, and even . She also understands this may not r elieve the symptoms. She might need more than one surgical intervention. She understood, signed a c onsent. Description Of Procedure: The patient was brought to the operating room, placed in supine position. Anesthesia was without complication. Abdominal area was prepped and draped in the usual sterile fas hion. Marcaine 0.5% was injected for local anesthetic, followed by sharp incision of the skin in the infraumbilical region. Incision was carried down to fascia, which was opened under direct vision. Peritoneum was encountered, opened under direct vision. Vicryl #1 placed inside the fascia. Tam trocar was carefully introduced. Pneumoperitoneum was obtained. I placed 3 more trocars, 5 mm each one of them, 1 in the epigastric area, 2 in the right upper quadrant under direct visualization. Thi s allowed me to put a grasper in the fundus of the gallbladder. Another grasper in the infundibulum retracting the gallbladder in the inferolateral fashion exposing the triangle of Calot, obtaining cri tical view. Cystic duct and cystic artery were clearly isolated, freed circumferentially, and a conn ection between those and the gallbladder were clearly identified. I proceeded to ligate those by usi ng at least 3 clips proximal, 1 clip distal, ligation in middle. Same was done with the cystic arter y. No bile leak. No bleeding. The gallbladder was removed from liver using Bovie cauterizer and re moved from abdominal cavity using EndoCatch through the umbilical incision. The area was inspected o nce again. No bile leak. No bleeding. At that moment, I proceeded to remove the trocars under dire ct vision. Deflated the pneumoperitoneum. Closed the fascia with #1 Vicryl. Irrigated subcutaneous tissue, closed with 3-0 chromic and the skin with 3-0 chromic and Steri-Strips. Sponge count and in strument counts were correct. The patient tolerated the procedure well. The patient was sent to [facility] in stable condition. TIA/DAVID Voice ID: [id number] Report ID: [id number]
[2024-08-26] MEDS: TRAZODONE 50 MG TABLET PO SCH (01:05)
[2024-08-26] MEDS: TRAZODONE 50 MG TABLET ONE (01:11)
[2024-08-26] MEDS: POTASSIUM CL SA 10 MEQ TAB PO ONE (08:04)
[2024-08-26 09:30] LABS: Absolute Basophils 0.1 K/uL (0-0.5); Absolute Lymphocytes (CBC) 2.1 K/uL (0.7-4.9); Absolute Monocytes 1.1 K/uL (0.1-1.3); Absolute Neutrophil 7.6 K/uL (1.8-8.0); Basophils % 0.5 % (0-1.3); Eosinophils % 0.1 % (0-4.4); Hematocrit 29.6 % (36.0-45.0); Hemoglobin 9.9 g/dL (12.0-15.0); Lymphocytes % 19.1 % (15.3-44.8); MCH 32.7 pg (27.0-35.0); MCHC 33.4 g/dL (32.0-36.0); MCV 97.9 fL (80-100); MPV 7.1 fL (7.6-11.3); Monocytes % 10.1 % (3.3-12.3); Neutrophils % 70.2 % (41.7-73.7); Platelets 248 thou/uL (152-406); RBC Red Blood Cell Count 3.02 M/uL (3.86-4.86); Red Cell Distribution Width 13.7 % (12.1-15.2)
[2024-08-26 09:47] LABS: Anion Gap 6.8 mEq/L (5.0-15.0); Bilirubin Total 0.6 mg/dL (0.2-1.0); Potassium 4.8 mEq/L (3.5-5.1)
[2024-08-26] MEDS: ALPRAZOLAM 1 MG TABLET PO PRN (10:11)
--- NOTE | 2024-08-26 12:45 | P.DS ---
Admission Date: 08/25/24 Discharge Date: 08/26/24 Disposition: DC HOME/HOME HEALTH CARE Discharge Condition: FAIR Reason for Admission: abdominal pain Hospital Course: Patient is a 54 year old female with HTN, migraine headache and anxiety. She was admitted for acute calculous cholecystitis after she presented with intractable abdominal pain, nausea and vomiting. Acute calculous cholecystitis s/p cholecystectomy Intractable nausea and vomiting: improving HTN: home meds Migraine headache: home meds Anxiety: home meds 54 yo patient admitted to the hospital with cholecystitis, she was started on antibiotics, surgery was consulted, she had laparoscopic cholecystectomy yesterday, when I see the patient today she is doing well without any acute problems, her pain is reasonably controlled, she feels ready to go home, otherw ise no other acute issues going on so I am planning to discharge her to go home. I discussed with the surgical team, they cleared the patient to be discharged as well, they advised 5 more days of antibiotics. Subjective: No chest pain or shortness of breath. No nausea or vomiting. Abdominal pain controlled. No obvious bleeding. Looks comfortable in the bed. Objective: General appearance: Alert and comfortable CVS: Normal S1 and S2 Lungs: Clear to auscultation bilaterally Abdomen: Soft, bowel sounds present, post tenderness expected, dressing dry and intact Extremities: No pedal edema Vital Signs/Physical Exam: Temp Pulse Resp BP Pulse Ox 97.9 F 58 16 123/76 100 08/26/24 08:00 08/26/24 08:00 08/26/24 11:13 08/26/24 08:00 08/26/24 11:13 Laboratory Data at Discharge: WBC 10.80 thou/uL (4.3-10.9) 08/26/24 09:14 Hgb 9.9 g/dL (12.0-15.0) L 08/26/24 09:14 Hct 29.6 % (36.0-45.0) L 08/26/24 09:14 Plt Count 248 thou/uL (152-406) 08/26/24 09:14 Sodium 139 mEq/L (136-145) 08/26/24 09:14 Potassium 4.8 mEq/L (3.5-5.1) 08/26/24 09:14 BUN 12 mg/dL (7-18) 08/26/24 09:14 Creatinine 0.77 mg/dL (0.55-1.02) 08/26/24 09:14 Glucose 100 mg/dL (74-106) 08/26/24 09:14 Phosphorus 2.9 mg/dL (2.5-4.9) 08/25/24 04:21 Magnesium 2.1 mg/dL (1.6-2.4) 08/25/24 04:21 Total Bilirubin 0.6 mg/dL (0.2-1.0) 08/26/24 09:14 AST 16 U/L (15-37) 08/26/24 09:14 ALT 20 U/L (13-56) 08/26/24 09:14 Alkaline Phosphatase 53 U/L (45-117) 08/26/24 09:14 Triglycerides 72 mg/dL (<150) 08/25/24 04:21 Cholesterol 165 mg/dL (<200) 08/25/24 04:21 HDL Cholesterol 46 mg/dL (40-60) 08/25/24 04:21 Cholesterol/HDL Ratio 3.59 08/25/24 04:21 Lipase 16 U/L (13-75) 08/24/24 15:28 Home Medications: Trazodone [Desyrel*] 200 mg PO BEDTIME 10/07/19 carvediloL [Coreg*] 25 mg PO BID tab 10/12/19 cloNIDine HCL [Catapres*] 0.3 mg PO TID tablet 10/12/19 Sennosides/Docusate Sodium [Stool Softener-Laxative Tablet] 1 each PO DAILY PRN 05/12/23 Promethazine Tab [Phenergan*] 12.5 mg PO Q6HP PRN #16 tab 05/19/23 Alprazolam [Xanax] 1 mg PO BID PRN 08/25/24 Omeprazole 20 mg PO DAILY 08/25/24 Amox/Clavulanate [Augmentin 875-125 Tab] 875 mg PO BID #10 tab 08/26/24 Hydrocodone 5/APAP 325 [Powersite 5/325*] 1 tab PO Q6H PRN #15 tab 08/26/24 New Medications: Amox/Clavulanate [Augmentin 875-125 Tab] 875 mg PO BID #10 tab Hydrocodone 5/APAP 325 [Powersite 5/325*] 1 tab PO Q6H PRN #15 tab PRN Reason: Pain Scale 5-7 (Moderate) Followup: NONE,NONE [Primary Care Provider] - 1 Week (f/u with PCP in 1 week with CBC and CMP) Keagan Nguyen MD [ACTIVE - CAN ADMIT] - 1 Week Time spent managing pt's care (in minutes): 32
[2024-08-26 17:35] VITALS: BP 124/84; TEMP 98.5
== END 2024-08-26 17:45 | disposition home health service (06) | DRG 418 ==
LOC: ER 14:32 → ERHOLD 19:26 → 4TH 08-25 11:32 → OBSVTOIN 08-25 16:37
PROVIDERS: ADMIT Internal Medicine; ATTEND Hospitalist
PROC: 0FT44ZZ Resection of Gallbladder, Percutaneous Endoscopic Approach (ICD-10-PCS; principal; 2024-08-25 12:30)
DX: K80.00 Calculus of gallbladder with acute cholecystitis without obstruction (principal); D62 Acute posthemorrhagic anemia; I10 Essential (primary) hypertension; F41.9 Anxiety disorder, unspecified; E87.6 Hypokalemia; K20.90 Esophagitis, unspecified without bleeding; G43.909 Migraine, unspecified, not intractable, without status migrainosus; Z88.1 Allergy status to other antibiotic agents; Z88.8 Allergy status to other drugs, medicaments and biological substances; Z79.02 Long term (current) use of antithrombotics/antiplatelets; Z79.899 Other long term (current) drug therapy
CPT/HCPCS: 36415; 70450; 74177; 76705; 80048; 80053; 80061; 81001; 83605; 83690; 83735; 84100; 85025; 88304; 94010; 99285; G0378; J1100; J1171; J1200; J1650; J1790; J2003; J2250; J2405; J2470; J2543; J2550; J2704; J3010; J3480; J7030; J7120; Q9967